=== PATIENT | male | born 1940 | race Hispanic/Latino ===

== ENCOUNTER 2018-03-21 15:41 | Inpatient (IN) | payer OTHER ==
[2018-03-21] MEDS ORDERED: Sodium Chloride 0.9% 500 ML IV ONE (16:23)
--- NOTE | 2018-03-21 16:24 | ED PDOC ---
HPI: Altered Mental Status <Carlee Husain Y - Last Filed: 03/21/18 19:33> Chief Complaint (Provider): SYNCOPE History Per: Patient (77 Y/O MALE HERE WITH EPISODE OF SYNCOPE TODAY AND MULTIPLE FALLS X 4 DAYS. DENIES ANY CHEST PAIN/ABD PAIN/VOMITING/DIARRHEA. DENIES ANY UNILATERAL WEAKNESS. ) <Maximiliano Vazquez - Last Filed: 03/21/18 20:11> Time Seen by Provider: 03/21/18 16:22 Chief Complaint (Nursing): Weakness/Neurological Deficit Past Medical History Vital Signs: Last Vital Signs Temp 98.0 F 03/21/18 15:44 Pulse 90 03/21/18 15:44 Resp 16 03/21/18 15:44 BP 97/47 L 03/21/18 15:44 Pulse Ox 99 03/21/18 19:12 <LishaCarlee Y - Last Filed: 03/21/18 19:33> Reviewed: Historical Data, Nursing Documentation, Vital Signs Vital Signs: Last Vital Signs Temp 98.0 F 03/21/18 15:44 Pulse 90 03/21/18 15:44 Resp 16 03/21/18 15:44 BP 97/47 L 03/21/18 15:44 Pulse Ox 99 03/21/18 15:44 - Medical History PMH: Benign Prostatic Hyperplasia Denies: HTN, Chronic Kidney Disease - Surgical History Surgical History: Appendectomy - Family History Family History: States: Unknown Family Hx <Maximiliano Vazquez - Last Filed: 03/21/18 20:11> - Home Medications Home Medications: Ambulatory Orders Medication Instructions Recorded Tamsulosin [Flomax] 0.4 mg PO QPM 04/28/16 Finasteride [Proscar] 5 mg PO DAILY 03/21/18 Fluticasone Propionate [Flonase 1 spray [facility] DAILY PRN 03/21/18 Allergy Relief] Losartan/Hydrochlorothiazide 1 tab PO DAILY 03/21/18 [Losartan-Hctz 50-12.5 mg Tab] Metoprolol Succinate XL [Toprol XL] 25 mg PO DAILY 03/21/18 Pantoprazole Sodium [Protonix] 40 mg PO DAILY 03/21/18 - Allergies Allergies/Adverse Reactions: Allergies Allergy/AdvReac Type Severity Reaction Status Date / Time No Known Allergies Allergy Verified 05/06/14 08:07 Review of Systems ROS Statement: Except As Marked, All Systems Reviewed And Found Negative <Maximiliano Vazquez B - Last Filed: 03/21/18 20:11> Physical Exam - Reviewed Nursing Documentation Reviewed: Yes Vital Signs Reviewed: Yes - Physical Exam Appears: Positive for: Well, Non-toxic, No Acute Distress Head Exam: Positive for: ATRAUMATIC, NORMAL INSPECTION, NORMOCEPHALIC Skin: Positive for: Normal Color, Warm, DRY Eye Exam: Positive for: EOMI, Normal appearance, PERRL ENT: Positive for: Normal ENT Inspection Neck: Positive for: Normal, Painless ROM Cardiovascular/Chest: Positive for: Regular Rate, Rhythm, Other (BIBASILAR RALES MILD) Respiratory: Positive for: CNT, Normal Breath Sounds Gastrointestinal/Abdominal: Positive for: Normal Exam, Soft Back: Positive for: Normal Inspection Extremity: Positive for: Normal ROM Neurologic/Psych: Positive for: Alert, Oriented <GeorgeMaximiliano B - Last Filed: 03/21/18 20:11> - Laboratory Results Result Diagrams: 03/21/18 18:37 03/21/18 18:37 - Critical Care Total Time (In Min): 20 Documented Critical Care: Time excludes all time spent performint seperately billable procedures <Carlee Husain Y - Last Filed: 03/21/18 19:33> - Laboratory Results Result Diagrams: 03/21/18 18:37 03/21/18 18:37 - ECG O2 Sat by Pulse Oximetry: 99 - Progress ED Course And Treament: EKG: AFIB 88BPM; NO ECTOPY NO ACUTE CHANGES CXR: NAD HEAD CT: IMPRESSION: 1. Involutional changes. Periventricular hypoattenuation suggestive of chronic ischemic changes. 2. Mild maxillary sinus mucosal thickening. Thank you for allowing us to participate in the care of your patient. Dictated and Authenticated by: Caroline Johnson MD HGB NOTED 5 2 UNITS PACKED RBC ORDERED CONSENT OBTAINED AND IN CHART. POTASSIUM NOTED ELEVATED 6.2 1 AMP D50 IV/ 10 UNITS REG INSULIN/ 1 AMP SODIUM BICARB GIVEN D/W DR. GRACIA. REQUESTS DR. THOMPSON FOR RENAL CONSULT. D/W DR. STANTON D/W DR. THOMPSON. REQUESTS POTASSIUM REPEATED 6 HOURS POST TREATMENT AND KAYEXELATE 30GM PO X 1 DOSE WILL REPEAT POTASSIUM IN AM. <Maximiliano Vazquez B - Last Filed: 03/21/18 20:11> Medical Decision Making Medical Decision Making: Patient seen along with PA. Patient presenting with syncopal episode and new onset of symptoms, a-fib , elevated potassium and severe anemia. Patient will need cardiology consult as well as transfusion of blood. He will first need CT head to r/o internal bleed. Right EJ placed for access by me. Patient signed out at 7pm to Dr. Jensen for further workup and admission to ICU. On exam, patient with patent airway and stable vital at this time. <Carlee Husain Y - Last Filed: 03/21/18 19:33> Disposition <Carlee Husain Y - Last Filed: 03/21/18 19:33> - Patient ED Disposition Is Patient to be Admitted: Yes - Disposition Disposition Time: 20:03 - Pt Status Changed To: Hospital Disposition Of: Inpatient - Admit Certification Admit to Inpatient:: After my assessment, the patient will require hospitalization for at least two midnights. This is because of the severity of symptoms shown, intensity of services needed, and/or the medical risk in this patient being treated as an outpatient. <Maximiliano Vazquez B - Last Filed: 03/21/18 20:11> - Clinical Impression Clinical Impression: Anemia, Renal failure, New onset a-fib, Hyperkalemia - Disposition Condition: FAIR
--- NOTE | 2018-03-21 17:07 | RAD ---
Date of service: 03/21/2018 PROCEDURE: CHEST RADIOGRAPH, 1 VIEW HISTORY: ROUTINE COMPARISON: None available. FINDINGS: LUNGS: Clear. PLEURA: No pneumothorax or pleural fluid seen. CARDIOVASCULAR: Atherosclerotic aortic calcifications. Cardiomediastinal silhouette enlarged. OSSEOUS STRUCTURES: Degenerative changes. VISUALIZED UPPER ABDOMEN: Normal. OTHER FINDINGS: None. IMPRESSION: No active disease.
[2018-03-21 18:44] LABS: BASO % 0.8 % (0.0-2.0); EOS # 0.1 K/uL (0.0-0.7); EOS % 1.2 % (0.0-4.0); LYMPH # 0.9 K/uL (1.0-4.3); LYMPH % 15.3 % (20.0-40.0); MEAN CELL VOLUME 66.8 fl (80.0-94.0); MEAN CORPUSCULAR HEMOGLOBIN 20.1 pg (27.0-31.0); MEAN CORPUSCULAR HGB CONC 30.1 g/dL (33.0-37.0); MEAN PLATELET VOLUME 5.9 fl (7.2-11.7); MONO # 0.7 K/uL (0.0-0.8); MONO % 11.6 % (0.0-10.0); NEUT # 4.4 K/uL (1.8-7.0); NEUT % 71.1 % (50.0-75.0); RBC 2.51 Mil/uL (4.40-5.90); RED CELL DISTRIBUTION WIDTH 17.1 % (11.5-14.5); WHITE BLOOD COUNT 6.1 K/uL (4.8-10.8)
[2018-03-21 18:58] LABS: INR 1.1 (0.9-1.2); PARTIAL THROMBOPLASTIN TIME 18.6 Seconds (25.6-37.1); PROTHROMBIN TIME 12.3 Seconds (9.8-13.1)
[2018-03-21 19:02] LABS: ALB/GLOB RATIO 0.8 (1.0-2.1); ALBUMIN 3.4 g/dL (3.5-5.0); CALCIUM 9.1 mg/dL (8.4-10.2)
[2018-03-21] MEDS ORDERED: Insulin Regular 100 units/ml IV STA (19:08)
[2018-03-21] MEDS ORDERED: Dextrose 50% SYRINGE Inj (50 ml) IVP ONE (19:08)
[2018-03-21 19:09] LABS: TROPONIN I 0.034 ng/mL (0.00-0.120)
[2018-03-21] MEDS ORDERED: Sodium Bicarbonate 7.5% (0.9 MEQ/ML) 50ML INJ IV ONE (19:12)
[2018-03-21] MEDS ORDERED: Dextrose 50% SYRINGE Inj (50 ml) ONE (19:33)
[2018-03-21] MEDS ORDERED: Insulin Regular 100 units/ml ONE (19:34)
[2018-03-21] MEDS ORDERED: Sod Polystyrene Sulf 15 gm/60 ml Susp PO ONE (20:08)
[2018-03-21] MEDS ORDERED: Sodium Chloride 0.9% 1,000 ML IV SCH ×3 (20:15→22:45)
[2018-03-21] MEDS ORDERED: Sod Polystyrene Sulf 15 gm/60 ml Susp ONE (21:00)
--- NOTE | 2018-03-21 21:03 | CP.PCM.CON ---
History of Present Illness - History of Present Illness History of Present Illness: CC: Falls, weakness (patient is rather poor historian) HPI: This is a 77 y/o male with MHx of BPH, A fib, and HTN as far as can be ascertained. He comes in with a syncopal episode, multiple falls, and generalized weakness for the past 3-4 days. Denies f/c/n/v/d. 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; unclear whether he smokes or drinks EtOH Surrogate Dec Mkr: unknown Past Patient History - Infectious Disease Hx of Infectious Diseases: None - Past Medical History & Family History Past Medical History?: Yes - Past Social History Smoking Status: Former Smoker - CARDIAC Hx Hypertension: No - PULMONARY Hx Respiratory Disorders: No - NEUROLOGICAL Hx Neurological Disorder: No - HEENT Hx HEENT Problems: Yes Hx Cataracts: Yes - RENAL Hx Chronic Kidney Disease: No - ENDOCRINE/METABOLIC Hx Endocrine Disorders: No - HEMATOLOGICAL/ONCOLOGICAL Hx Blood Disorders: Yes Hx Cancer: Yes (prostate) - INTEGUMENTARY Hx Dermatological Problems: No - MUSCULOSKELETAL/RHEUMATOLOGICAL Hx Musculoskeletal Disorders: Yes Hx Falls: No Hx Osteoarthritis: Yes - GASTROINTESTINAL Hx Gastrointestinal Disorders: No - GENITOURINARY/GYNECOLOGICAL Hx Genitourinary Disorders: Yes (RETENTION BUTLER TO SGD) Hx Hematuria: Yes Hx Prostate Cancer: Yes Hx Prostate Problems: Yes - PSYCHIATRIC Hx Psychophysiologic Disorder: No Hx Substance Use: No - SURGICAL HISTORY Hx Appendectomy: Yes - ANESTHESIA Hx Anesthesia: Yes Hx Anesthesia Reactions: No Hx Malignant Hyperthermia: No Meds Allergies/Adverse Reactions: Allergies Allergy/AdvReac Type Severity Reaction Status Date / Time No Known Allergies Allergy Verified 01/02/14 08:07 - Medications Medications: Current Medications Acetaminophen (Tylenol 325mg Tab) 650 mg PO Q6H PRN PRN Reason: Fever >100.4 F Finasteride (Proscar) 5 mg PO DAILY [facility] Fluticasone Propionate (Flonase) 1 spr VALERIA DAILY PRN PRN Reason: Nasal congestion Sodium Chloride (Sodium Chloride 0.9%) 1,000 mls @ 100 mls/hr IV .Q10H [facility] Stop: 03/22/18 06:14 Metoprolol Succinate (Toprol Xl) 25 mg PO DAILY [facility] Ondansetron HCl (Zofran Inj) 4 mg IVP Q6H PRN PRN Reason: Nausea/Vomiting Pantoprazole Sodium (Protonix Ec Tab) 40 mg PO DAILY [facility] Tamsulosin HCl (Flomax) 0.4 mg PO QPM [facility] Physical Exam - Constitutional Appears: No Acute Distress, Chronically Ill - Head Exam Head Exam: ATRAUMATIC, NORMOCEPHALIC - Eye Exam Eye Exam: EOMI, PERRL - ENT Exam ENT Exam: Mucous Membranes Dry - Neck Exam Neck exam: Positive for: Full Rom - Respiratory Exam Respiratory Exam: Clear to Auscultation Bilateral, NORMAL BREATHING PATTERN - Cardiovascular Exam Cardiovascular Exam: REGULAR RHYTHM, +S1, +S2 - GI/Abdominal Exam GI & Abdominal Exam: Normal Bowel Sounds, Soft - Extremities Exam Extremities exam: Positive for: full ROM, normal inspection - Neurological Exam Neurological exam: Alert, Oriented x3 Additional comments: Limited participation in exam - Psychiatric Exam Psychiatric exam: Normal Affect, Normal Mood - Skin Skin Exam: Dry, Warm Results - Vital Signs Recent Vital Signs: Last Vital Signs Temp 98.0 F 03/21/18 15:44 Pulse 92 H 03/21/18 19:47 Resp 18 03/21/18 19:47 BP 137/87 03/21/18 19:47 Pulse Ox 99 03/21/18 20:11 - Labs Result Diagrams: 03/21/18 18:37 03/21/18 18:37 Labs: Laboratory Results - last 24 hr 03/21/18 03/21/18 03/21/18 16:25 18:37 18:37 WBC 6.1 RBC 2.51 L Hgb 5.0 L* Hct 16.7 L MCV 66.8 L MCH 20.1 L MCHC 30.1 L RDW 17.1 H Plt Count 727 H MPV 5.9 L Neut % (Auto) 71.1 Lymph % (Auto) 15.3 L [place] % (Auto) 11.6 H Eos % (Auto) 1.2 Baso % (Auto) 0.8 Neut # (Auto) 4.4 Lymph # (Auto) 0.9 L [place] # (Auto) 0.7 Eos # (Auto) 0.1 Baso # (Auto) 0.0 PT INR APTT Sodium 132 Potassium 6.4 H* Chloride 100 Carbon Dioxide 16 L Anion Gap 22 H BUN 95 H Creatinine 6.4 H Est GFR ( Amer) 10 Est GFR (Non-Af Amer) 8 POC Glucose (mg/dL) 147 H Random Glucose 104 Calcium 9.1 Magnesium 2.7 H Total Bilirubin 0.4 AST 23 ALT 15 L Alkaline Phosphatase 70 Troponin I 0.0340 NT-Pro-B Natriuret Pep 9350 H Total Protein 7.8 Albumin 3.4 L Globulin 4.4 H Albumin/Globulin Ratio 0.8 L 03/21/18 18:37 WBC RBC Hgb Hct MCV MCH MCHC RDW Plt Count MPV Neut % (Auto) Lymph % (Auto) [place] % (Auto) Eos % (Auto) Baso % (Auto) Neut # (Auto) Lymph # (Auto) [place] # (Auto) Eos # (Auto) Baso # (Auto) PT 12.3 INR 1.1 APTT 18.6 L Sodium Potassium Chloride Carbon Dioxide Anion Gap BUN Creatinine Est GFR ( Amer) Est GFR (Non-Af Amer) POC Glucose (mg/dL) Random Glucose Calcium Magnesium Total Bilirubin AST ALT Alkaline Phosphatase Troponin I NT-Pro-B Natriuret Pep Total Protein Albumin Globulin Albumin/Globulin Ratio - EKG Data EKG Interpreted by: Myself EKG shows normal: Sinus rhythm Rate: Normal - EKG Data EKG comments: No peaked T waves - Imaging and Cardiology CT scan - head Status: Image reviewed by me, Report reviewed by me Additional comment: No acute findings Chest x-ray Status: Image reviewed by me, Report reviewed by me Additional comment: No cardiac or pulm disease Assessment & Plan (1) Anemia Assessment and Plan: 77 y/o male with severe ARF with hyperkalemia and severe anemia who presents with weakness and falls. -Admit to ICU given multiple severe problems -Pending 2 U PRBC -Cont IVF (NS) x 1 L -Pending Kayexelate -Repeat BMP, CBC in AM -UA, U Lytes, and U creatinine -Renal U/S -Echo TTE in AM given elevated BNP and unclear etiology/duration of A fib -Hold all diuretics -Dose medications renally -SCDs only for DVT PPx Status: Acute (2) Renal failure Status: Acute (3) Hyperkalemia Status: Acute (4) A-fib Status: Acute (5) DVT prophylaxis Status: Acute
[2018-03-22 01:01] LABS: SQUAMOUS EPITHIAL < 1 /hpf (0-5); URINE BACTERIA MOD (<OCC); URINE BILIRUBIN NEGATIVE (NEGATIVE); URINE BLOOD LARGE (NEGATIVE); URINE CLARITY CLOUDY (Clear); URINE COLOR YELLOW (YELLOW); URINE GLUCOSE (UA) NEG (Normal); URINE LEUKOCYTE ESTERASE LARGE Leu/uL (Negative); URINE PROTEIN 100 mg/dL (NEGATIVE); URINE UROBILINOGEN 0.2-1.0 mg/dL (0.2-1.0)
[2018-03-22 08:48] LABS: MEAN CELL VOLUME 70.7 fl (80.0-94.0); MEAN CORPUSCULAR HEMOGLOBIN 23.6 pg (27.0-31.0); MEAN CORPUSCULAR HGB CONC 33.4 g/dL (33.0-37.0); RBC 2.96 Mil/uL (4.40-5.90); RED CELL DISTRIBUTION WIDTH 22.3 % (11.5-14.5)
[2018-03-22 09:02] LABS: CALCIUM 8.2 mg/dL (8.4-10.2)
--- NOTE | 2018-03-22 09:34 | CT ---
Date of service: 03/21/2018 PROCEDURE: CT HEAD WITHOUT CONTRAST. HISTORY: SYNCOPE/FALLS COMPARISON: None available. TECHNIQUE: Axial computed tomography images were obtained through the head/brain without intravenous contrast. Coronal and sagittal reconstructed images. Radiation dose: Total exam DLP = 770.12 mGy-cm. This CT exam was performed using one or more of the following dose reduction techniques: Automated exposure control, adjustment of the mA and/or kV according to patient size, and/or use of iterative reconstruction technique. FINDINGS: HEMORRHAGE: No intracranial hemorrhage. BRAIN: No mass effect or edema. Cortical atrophy, periventricular small vessel disease. VENTRICLES: Unremarkable. No hydrocephalus. CALVARIUM: Unremarkable. PARANASAL SINUSES: Evidence of chronic maxillary sinusitis. No acute findings. MASTOID AIR CELLS: Unremarkable as visualized. No inflammatory changes. OTHER FINDINGS: None. IMPRESSION: No acute intracranial abnormalities. No significant findings to account for the clinical presentation. Concordant results (preliminary interpretation) provided by [employer]. Procedure Completed: 17:47 Preliminary ([facility]) Report: Dictated and Authenticated: 19:09 Final Interpretation: 09:32 March 22, 2018.
[2018-03-22] MEDS: Pantoprazole 40 mg EC Tab PO SCH (09:56)
[2018-03-22] MEDS: Metoprolol Succinate 25 mg XL Tab PO SCH (09:56)
--- NOTE | 2018-03-22 11:25 | US ---
Date of service: 03/22/2018 PROCEDURE: Ultrasound of the Kidneys HISTORY: renal failure COMPARISON: None available. TECHNIQUE: Sonogram of the kidneys. FINDINGS: RIGHT KIDNEY: Measures: 4.7 x 5.5 x 10.5 cm. Normal in size, contour and echogenicity. No stone, solid mass lesion or hydronephrosis visualized. LEFT KIDNEY: Measures: 6 x 6.2 x 11 cm. Normal in size, contour and echogenicity. No stone, solid mass lesion or hydronephrosis visualized. OTHER FINDINGS: None. IMPRESSION: Unremarkable renal sonogram.
--- NOTE | 2018-03-22 11:40 | CP.PCM.CON ---
History of Present Illness - History of Present Illness History of Present Illness: patient is a 77 years of age male presented to the emergency room with altered mental status and he was found to have hyperkalemic abnormal kidney function. I was called to see the patient for further evaluation. The history from the patient very limited I could not get any information from the patient history is not aware about kidney problem at least he has history of diabetes mellitus and the record indicates a day has history of prostatic CA review of that 14 system unremarkable so far except what I mentioned until you get further information Review of Systems - Constitutional Constitutional: Anorexia. absent: Chills - EENT Nose/Mouth/Throat: absent: Nasal Congestion - Cardiovascular Cardiovascular: absent: Chest Pain, Dyspnea, Edema - Respiratory Respiratory: absent: Cough, Hemoptysis - Gastrointestinal Gastrointestinal: absent: Abdominal Pain, Coffee Ground Emesis - Genitourinary Genitourinary: Nocturia - Musculoskeletal Musculoskeletal: absent: Abnormal Gait - Neurological Neurological: Confusion, Lack of Coordination - Endocrine Endocrine: Fatigue - Hematologic/Lymphatic Hematologic: absent: Easy Bleeding Past Patient History - Infectious Disease Hx of Infectious Diseases: None - Past Medical History & Family History Past Medical History?: Yes - Past Social History Smoking Status: Former Smoker - CARDIAC Hx Hypertension: No - PULMONARY Hx Respiratory Disorders: No - NEUROLOGICAL Hx Neurological Disorder: No - HEENT Hx HEENT Problems: Yes - RENAL Hx Chronic Kidney Disease: No - ENDOCRINE/METABOLIC Hx Endocrine Disorders: No - HEMATOLOGICAL/ONCOLOGICAL Hx Blood Disorders: Yes - INTEGUMENTARY Hx Dermatological Problems: No - MUSCULOSKELETAL/RHEUMATOLOGICAL Hx Musculoskeletal Disorders: Yes - GASTROINTESTINAL Hx Gastrointestinal Disorders: No - GENITOURINARY/GYNECOLOGICAL Hx Genitourinary Disorders: Yes (RETENTION BUTLER TO SGD) - PSYCHIATRIC Hx Psychophysiologic Disorder: No - SURGICAL HISTORY Hx Appendectomy: Yes - ANESTHESIA Hx Anesthesia: Yes Hx Anesthesia Reactions: No Hx Malignant Hyperthermia: No Meds Allergies/Adverse Reactions: Allergies Allergy/AdvReac Type Severity Reaction Status Date / Time No Known Allergies Allergy Verified 01/02/14 08:07 - Medications Medications: Current Medications Acetaminophen (Tylenol 325mg Tab) 650 mg PO Q6H PRN PRN Reason: Fever >100.4 F Finasteride (Proscar) 5 mg PO DAILY [facility] Last Admin: 03/22/18 09:55 Dose: 5 mg Fluticasone Propionate (Flonase) 1 spr [facility]ERIA DAILY PRN PRN Reason: Nasal congestion Sodium Chloride (Sodium Chloride 0.9%) 1,000 mls @ 150 mls/hr IV .Q6H[facility]M [facility] Stop: 03/22/18 12:04 Metoprolol Succinate (Toprol Xl) 25 mg PO DAILY [facility] Last Admin: 03/22/18 09:56 Dose: 25 mg Ondansetron HCl (Zofran Inj) 4 mg IVP Q6H PRN PRN Reason: Nausea/Vomiting Pantoprazole Sodium (Protonix Ec Tab) 40 mg PO DAILY [facility] Last Admin: 03/22/18 09:56 Dose: 40 mg Tamsulosin HCl (Flomax) 0.4 mg PO QPM [facility] Physical Exam - Constitutional Appears: No Acute Distress - ENT Exam ENT Exam: Mucous Membranes Dry - Neck Exam Neck exam: Negative for: Lymphadenopathy - Respiratory Exam Respiratory Exam: NORMAL BREATHING PATTERN. absent: Chest Wall Tenderness - Cardiovascular Exam Cardiovascular Exam: absent: Gallop, JVD, Rubs - GI/Abdominal Exam GI & Abdominal Exam: Normal Bowel Sounds. absent: Guarding - Extremities Exam Extremities exam: Negative for: calf tenderness - Back Exam Back exam: absent: CVA tenderness (L), CVA tenderness (R) - Neurological Exam Neurological exam: Alert - Psychiatric Exam Psychiatric exam: Flat Affect Results - Vital Signs Recent Vital Signs: Last Vital Signs Temp 97.8 F 03/22/18 10:50 Pulse 94 H 03/22/18 10:50 Resp 20 03/22/18 10:50 BP 92/47 L 03/22/18 10:50 Pulse Ox 98 03/22/18 10:50 - Labs Result Diagrams: 03/22/18 08:27 03/22/18 08:27 Labs: Laboratory Results - last 24 hr 03/21/18 03/21/18 03/21/18 16:25 18:37 18:37 WBC 6.1 RBC 2.51 L Hgb 5.0 L* Hct 16.7 L MCV 66.8 L MCH 20.1 L MCHC 30.1 L RDW 17.1 H Plt Count 727 H MPV 5.9 L Neut % (Auto) 71.1 Lymph % (Auto) 15.3 L [place] % (Auto) 11.6 H Eos % (Auto) 1.2 Baso % (Auto) 0.8 Neut # (Auto) 4.4 Lymph # (Auto) 0.9 L [place] # (Auto) 0.7 Eos # (Auto) 0.1 Baso # (Auto) 0.0 PT INR APTT Sodium 132 Potassium 6.4 H* Chloride 100 Carbon Dioxide 16 L Anion Gap 22 H BUN 95 H Creatinine 6.4 H Est GFR ( Amer) 10 Est GFR (Non-Af Amer) 8 POC Glucose (mg/dL) 147 H Random Glucose 104 Calcium 9.1 Phosphorus Magnesium 2.7 H Total Bilirubin 0.4 AST 23 ALT 15 L Alkaline Phosphatase 70 Total Creatine Kinase Troponin I 0.0340 NT-Pro-B Natriuret Pep 9350 H Total Protein 7.8 Albumin 3.4 L Globulin 4.4 H Albumin/Globulin Ratio 0.8 L Urine Color Urine Clarity Urine pH Ur Specific [place] Urine Protein Urine Glucose (UA) Urine Ketones Urine Blood Urine Nitrate Urine Bilirubin Urine Urobilinogen Ur Leukocyte Esterase Urine RBC (Auto) Urine Microscopic WBC Ur Squamous Epith Cells Urine Bacteria Blood Type Antibody Screen Crossmatch [facility] History Checked 03/21/18 03/21/18 03/22/18 18:37 20:15 00:30 WBC RBC Hgb Hct MCV MCH MCHC RDW Plt Count MPV Neut % (Auto) Lymph % (Auto) [place] % (Auto) Eos % (Auto) Baso % (Auto) Neut # (Auto) Lymph # (Auto) [place] # (Auto) Eos # (Auto) Baso # (Auto) PT 12.3 INR 1.1 APTT 18.6 L Sodium Potassium Chloride Carbon Dioxide Anion Gap BUN Creatinine Est GFR ( Amer) Est GFR (Non-Af Amer) POC Glucose (mg/dL) Random Glucose Calcium Phosphorus Magnesium Total Bilirubin AST ALT Alkaline Phosphatase Total Creatine Kinase Troponin I NT-Pro-B Natriuret Pep Total Protein Albumin Globulin Albumin/Globulin Ratio Urine Color Yellow Urine Clarity Cloudy Urine pH 5.0 Ur Specific [place] 1.013 Urine Protein 100 Urine Glucose (UA) Neg Urine Ketones Negative Urine Blood Large Urine Nitrate Negative Urine Bilirubin Negative Urine Urobilinogen 0.2-1.0 Ur Leukocyte Esterase Large Urine RBC (Auto) 570 H Urine Microscopic WBC 178 H Ur Squamous Epith Cells < 1 Urine Bacteria Mod H Blood Type O POSITIVE Antibody Screen Negative Crossmatch See Detail BBK History Checked Patient has bt 03/22/18 03/22/18 08:27 08:27 WBC 6.0 RBC 2.96 L Hgb 7.0 L D Hct 21.0 L MCV 70.7 L D MCH 23.6 L MCHC 33.4 RDW 22.3 H Plt Count 674 H MPV Neut % (Auto) Lymph % (Auto) [place] % (Auto) Eos % (Auto) Baso % (Auto) Neut # (Auto) Lymph # (Auto) [place] # (Auto) Eos # (Auto) Baso # (Auto) PT INR APTT Sodium 135 Potassium 5.0 Chloride 104 Carbon Dioxide 18 L Anion Gap 18 BUN 82 H Creatinine 5.3 H Est GFR ( Amer) 13 Est GFR (Non-Af Amer) 11 POC Glucose (mg/dL) Random Glucose 90 Calcium 8.2 L Phosphorus 7.2 H Magnesium Total Bilirubin AST ALT Alkaline Phosphatase Total Creatine Kinase 101 Troponin I NT-Pro-B Natriuret Pep Total Protein Albumin Globulin Albumin/Globulin Ratio Urine Color Urine Clarity Urine pH Ur Specific [place] Urine Protein Urine Glucose (UA) Urine Ketones Urine Blood Urine Nitrate Urine Bilirubin Urine Urobilinogen Ur Leukocyte Esterase Urine RBC (Auto) Urine Microscopic WBC Ur Squamous Epith Cells Urine Bacteria Blood Type Antibody Screen Crossmatch BBK History Checked Assessment & Plan (1) Hyperkalemia Assessment and Plan: acute kidney injury etiology not clear I cannot get history from the patient what medication he has been taken History of diabetes mellitus and hypertension History of CVA of the prostate Kidney function appeared to be improving patient appears to be still dehydrated continue IV fluid Serum phosphorus and PTH and spot urine for sodium osmolality and creatinine and protein Status: Acute
--- NOTE | 2018-03-22 11:44 | CARD ---
APPROVED REPORT Date of service: 03/22/2018 EXAM: Two-dimensional and M-mode echocardiogram with Doppler and color Doppler. Other Information Quality : GoodRhythm : NSR INDICATION ELEVATED BNP 2D DIMENSIONS IVSd1.18 (0.7-1.1cm)LVDd4.33 (3.9-5.9cm) LVOT Diameter2.29 (1.8-2.4cm)PWd1.05 (0.7-1.1cm) IVSs1.35 (0.8-1.2cm)LVDs2.72 (2.5-4.0cm) FS (%) 37.2 %PWs1.44 (0.8-1.2cm) M-Mode DIMENSIONS Left Atrium (MM)4.65 (2.5-4.0cm)IVSd1.03 (0.7-1.1cm) Aortic Root4.21 (2.2-3.7cm)LVDd4.88 (4.0-5.6cm) Aortic Cusp Exc.2.00 (1.5-2.0cm)PWd1.21 (0.7-1.1cm) IVSs1.32 cmFS (%) 26 % LVDs3.62 (2.0-3.8cm)PWs1.44 cm Aortic Valve AoV Peak Oaobewsi837.5cm/sAoV VTI16.3cmAO Peak GR.4mmHg LVOT Peak Lklachxn78.8cm/sLVOT VTI12.47cmAO Mean GR.2mmHg MELISSA (VMAX)1.49tj6BMB (VTI)1.61cm2 Mitral Valve MV E Vycrgdny67.4cm/sMV DECEL UMOC321kaLY A Yzbimloa44.8cm/s MV FRW90nwN/A ratio1.5MVA (PHT)4.95cm2 TDI Lateral E' Peak V19.26cm/sMedial E' Peak V4.73cm/sE/Lateral E'4.0 E/Medial E'16.4 Pulmonary Valve PV Peak Ylfzxldi25.5cm/s Tricuspid Valve TR Peak Aithrtij123zs/sRAP CICYZGWQ09jbYzMT Peak Gr.23mmHg VLRX67iqSl LEFT VENTRICLE The left ventricle is normal size. There is mild to moderate concentric left ventricular hypertrophy. The left ventricular function is normal. The left ventricular ejection fraction is within the normal range. LVEF 60% Regional wall motion abnormalities noted. Mild septal wall hypokinesia is noticed The left ventricular diastolic function is normal. No left ventricle thrombus noted on this study. There is no ventricular septal defect visualized. There is no left ventricular aneurysm. There is no mass noted in the left ventricle. RIGHT VENTRICLE The right ventricle is normal size. There is normal right ventricular wall thickness. The right ventricular systolic function is normal. ATRIA The left atrium size is normal. The right atrium size is normal. The interatrial septum is intact with no evidence for an atrial septal defect. AORTIC VALVE The aortic valve is thickened but opens well. No aortic regurgitation is present. There is no aortic valvular stenosis. There is no aortic valvular vegetation. MITRAL VALVE The mitral valve is normal in structure. There is no evidence of mitral valve prolapse. There is no mitral valve stenosis. Mitral regurgitation is mild. TRICUSPID VALVE The tricuspid valve is normal in structure. There is trace to mild tricuspid regurgitation. There is no tricuspid valve prolapse or vegetation. There is no tricuspid valve stenosis. PULMONIC VALVE The pulmonary valve is normal in structure. There is mild pulmonic valvular regurgitation. There is no pulmonic valvular stenosis. GREAT VESSELS The aortic root is mildly to moderately enlarged. The IVC is normal in size and collapses >50% with inspiration. PERICARDIAL EFFUSION The pericardium appears normal. <Conclusion> The left ventricle is normal size. There is mild to moderate concentric left ventricular hypertrophy. The left ventricular function is normal. The left ventricular ejection fraction is within the normal range. LVEF 60% Regional wall motion abnormalities noted. Mild septal wall hypokinesia is noticed The aortic valve is thickened but opens well. Mitral regurgitation is mild. There is trace to mild tricuspid regurgitation. There is mild pulmonic valvular regurgitation. The aortic root is mildly to moderately enlarged.
--- NOTE | 2018-03-22 12:12 | CP.PCM.CON ---
History of Present Illness - History of Present Illness History of Present Illness: 77 year old male with a history of HTN, afib, BPH, admitted with syncopal episode and weakness, in renal failure, and severe anemia. The patient is not a good historian but notes to feeling weak and not eating well for several days. He denies abnormal bleeding and bruising. He has been getting light headed when he stands quickly. He is currently s/p PRBC transfusion and reports to feeling better. Past medical history: HTN, afib, BPH Past surgical history: Appendectomy Family history: Denies hematologic and oncologic problems Social history: Denies tobacco, alcohol, and illicit drug use. Allergies: NKA Review of systems: All remaining review of systems including HEENT, cardiovascular, respiratory, gastrointestinal, genitourinary, musculoskeletal, dermatologic, neurologic, and psychiatric are negative unless mentioned in the HPI. Past Patient History - Infectious Disease Hx of Infectious Diseases: None - Past Medical History & Family History Past Medical History?: Yes - Past Social History Smoking Status: Former Smoker - CARDIAC Hx Hypertension: No - PULMONARY Hx Respiratory Disorders: No - NEUROLOGICAL Hx Neurological Disorder: No - HEENT Hx HEENT Problems: Yes - RENAL Hx Chronic Kidney Disease: No - ENDOCRINE/METABOLIC Hx Endocrine Disorders: No - HEMATOLOGICAL/ONCOLOGICAL Hx Blood Disorders: Yes - INTEGUMENTARY Hx Dermatological Problems: No - MUSCULOSKELETAL/RHEUMATOLOGICAL Hx Musculoskeletal Disorders: Yes - GASTROINTESTINAL Hx Gastrointestinal Disorders: No - GENITOURINARY/GYNECOLOGICAL Hx Genitourinary Disorders: Yes (RETENTION BUTLER TO SGD) - PSYCHIATRIC Hx Psychophysiologic Disorder: No - SURGICAL HISTORY Hx Appendectomy: Yes - ANESTHESIA Hx Anesthesia: Yes Hx Anesthesia Reactions: No Hx Malignant Hyperthermia: No Meds Allergies/Adverse Reactions: Allergies Allergy/AdvReac Type Severity Reaction Status Date / Time No Known Allergies Allergy Verified 01/02/14 08:07 - Medications Medications: Current Medications Acetaminophen (Tylenol 325mg Tab) 650 mg PO Q6H PRN PRN Reason: Fever >100.4 F Finasteride (Proscar) 5 mg PO DAILY [facility] Last Admin: 03/22/18 09:55 Dose: 5 mg Fluticasone Propionate (Flonase) 1 spr [place]ERIA DAILY PRN PRN Reason: Nasal congestion Metoprolol Succinate (Toprol Xl) 25 mg PO DAILY [facility] Last Admin: 03/22/18 09:56 Dose: 25 mg Ondansetron HCl (Zofran Inj) 4 mg IVP Q6H PRN PRN Reason: Nausea/Vomiting Pantoprazole Sodium (Protonix Ec Tab) 40 mg PO DAILY [facility] Last Admin: 03/22/18 09:56 Dose: 40 mg Tamsulosin HCl (Flomax) 0.4 mg PO QPM [facility] Physical Exam - Head Exam Head Exam: ATRAUMATIC - Eye Exam Eye Exam: Normal appearance - ENT Exam ENT Exam: Mucous Membranes Dry - Respiratory Exam Respiratory Exam: NORMAL BREATHING PATTERN - Cardiovascular Exam Cardiovascular Exam: +S1, +S2 - GI/Abdominal Exam GI & Abdominal Exam: Normal Bowel Sounds - Extremities Exam Extremities exam: Positive for: normal inspection - Psychiatric Exam Psychiatric exam: Flat Affect, Normal Mood - Skin Skin Exam: Warm Results - Vital Signs Recent Vital Signs: Last Vital Signs Temp 97.8 F 03/22/18 10:50 Pulse 94 H 03/22/18 10:50 Resp 20 03/22/18 10:50 BP 92/47 L 03/22/18 10:50 Pulse Ox 98 03/22/18 10:50 - Labs Result Diagrams: 03/22/18 08:27 03/22/18 08:27 Labs: Laboratory Results - last 24 hr 03/21/18 03/21/18 03/21/18 16:25 18:37 18:37 WBC 6.1 RBC 2.51 L Hgb 5.0 L* Hct 16.7 L MCV 66.8 L MCH 20.1 L MCHC 30.1 L RDW 17.1 H Plt Count 727 H MPV 5.9 L Neut % (Auto) 71.1 Lymph % (Auto) 15.3 L [place] % (Auto) 11.6 H Eos % (Auto) 1.2 Baso % (Auto) 0.8 Neut # (Auto) 4.4 Lymph # (Auto) 0.9 L [place] # (Auto) 0.7 Eos # (Auto) 0.1 Baso # (Auto) 0.0 PT INR APTT Sodium 132 Potassium 6.4 H* Chloride 100 Carbon Dioxide 16 L Anion Gap 22 H BUN 95 H Creatinine 6.4 H Est GFR ( Amer) 10 Est GFR (Non-Af Amer) 8 POC Glucose (mg/dL) 147 H Random Glucose 104 Calcium 9.1 Phosphorus Magnesium 2.7 H Total Bilirubin 0.4 AST 23 ALT 15 L Alkaline Phosphatase 70 Total Creatine Kinase Troponin I 0.0340 NT-Pro-B Natriuret Pep 9350 H Total Protein 7.8 Albumin 3.4 L Globulin 4.4 H Albumin/Globulin Ratio 0.8 L Urine Color Urine Clarity Urine pH Ur Specific [place] Urine Protein Urine Glucose (UA) Urine Ketones Urine Blood Urine Nitrate Urine Bilirubin Urine Urobilinogen Ur Leukocyte Esterase Urine RBC (Auto) Urine Microscopic WBC Ur Squamous Epith Cells Urine Bacteria Blood Type Antibody Screen Crossmatch BBK History Checked 03/21/18 03/21/18 03/22/18 18:37 20:15 00:30 WBC RBC Hgb Hct MCV MCH MCHC RDW Plt Count MPV Neut % (Auto) Lymph % (Auto) [place] % (Auto) Eos % (Auto) Baso % (Auto) Neut # (Auto) Lymph # (Auto) [place] # (Auto) Eos # (Auto) Baso # (Auto) PT 12.3 INR 1.1 APTT 18.6 L Sodium Potassium Chloride Carbon Dioxide Anion Gap BUN Creatinine Est GFR ( Amer) Est GFR (Non-Af Amer) POC Glucose (mg/dL) Random Glucose Calcium Phosphorus Magnesium Total Bilirubin AST ALT Alkaline Phosphatase Total Creatine Kinase Troponin I NT-Pro-B Natriuret Pep Total Protein Albumin Globulin Albumin/Globulin Ratio Urine Color Yellow Urine Clarity Cloudy Urine pH 5.0 Ur Specific [place] 1.013 Urine Protein 100 Urine Glucose (UA) Neg Urine Ketones Negative Urine Blood Large Urine Nitrate Negative Urine Bilirubin Negative Urine Urobilinogen 0.2-1.0 Ur Leukocyte Esterase Large Urine RBC (Auto) 570 H Urine Microscopic WBC 178 H Ur Squamous Epith Cells < 1 Urine Bacteria Mod H Blood Type O POSITIVE Antibody Screen Negative Crossmatch See Detail BBK History Checked Patient has bt 03/22/18 03/22/18 08:27 08:27 WBC 6.0 RBC 2.96 L Hgb 7.0 L D Hct 21.0 L MCV 70.7 L D MCH 23.6 L MCHC 33.4 RDW 22.3 H Plt Count 674 H MPV Neut % (Auto) Lymph % (Auto) [place] % (Auto) Eos % (Auto) Baso % (Auto) Neut # (Auto) Lymph # (Auto) [place] # (Auto) Eos # (Auto) Baso # (Auto) PT INR APTT Sodium 135 Potassium 5.0 Chloride 104 Carbon Dioxide 18 L Anion Gap 18 BUN 82 H Creatinine 5.3 H Est GFR ( Amer) 13 Est GFR (Non-Af Amer) 11 POC Glucose (mg/dL) Random Glucose 90 Calcium 8.2 L Phosphorus 7.2 H Magnesium Total Bilirubin AST ALT Alkaline Phosphatase Total Creatine Kinase 101 Troponin I NT-Pro-B Natriuret Pep Total Protein Albumin Globulin Albumin/Globulin Ratio Urine Color Urine Clarity Urine pH Ur Specific [place] Urine Protein Urine Glucose (UA) Urine Ketones Urine Blood Urine Nitrate Urine Bilirubin Urine Urobilinogen Ur Leukocyte Esterase Urine RBC (Auto) Urine Microscopic WBC Ur Squamous Epith Cells Urine Bacteria Blood Type Antibody Screen Crossmatch BBK History Checked Assessment & Plan (1) Anemia Assessment and Plan: rule out iron deficiency anemia will check retic count, b12, folate, ferritin, FOBT to further characterize agree with transfusion support will add IV iron if iron stores low ? anemia of CKD Status: Acute (2) Thrombocytosis Assessment and Plan: likely reactive to iron deficiency Thank you for this interesting consult. Status: Acute
--- NOTE | 2018-03-22 12:36 | CARD ---
APPROVED REPORT Date of service: 03/21/2018 EKG Measurement Heart [id number] <Conclusion> Atrial fibrillation Abnormal ECG
[2018-03-22] MEDS ORDERED: Lidocaine Hydrochloride 5 ML INJ ONE (13:32)
--- NOTE | 2018-03-22 13:43 | PCM.SURG1 ---
Surgeon's Initial Post Op Note - Surgeon's Notes Surgeon: Prieto Casillas MD Sales And Production Manager: NONE Type of Anesthesia: Local Pre-Operative Diagnosis: Poor venous access Operative Findings: US showed a patent right basilic vein Post-Operative Diagnosis: Poor venous access Operation Performed: Double lumen picc right arm, 35 CM. Tip is in the SVC. Specimen/Specimens Removed: NONE Estimated Blood Loss: EBL {In ML}: 2 Blood Products Given: N/A Drains Used: No Drains Post-Op Condition: Fair Date of Surgery/Procedure: 03/22/18 Time of Surgery/Procedure: 13:40
[2018-03-22 15:58] LABS: OSMOLALITY,URINE 368 mosm/kg (300-1000)
[2018-03-22] MEDS: Sodium Chloride 0.45% 1,000 ML IV SCH (16:11)
--- NOTE | 2018-03-22 16:30 | CP.PCM.CON ---
History of Present Illness - History of Present Illness History of Present Illness: 77 Y/O MALE ADMITTED WITH ARF. PT IS NOT RESPONDING TO QUESTIONS "FEELS TIRED" . HISTORY PER CHART. I WAS CONSULTED FOR AFIB ON MONITOR. AFIB IS RATE CONTROLLED. ECHO REVEALS SEVERE RA ENLARGEMENT AND MILD TO MOD LA ENLARGEMENT. THERE IS RV ENLARGEMENT AND ELEVATED PAP. 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 IT IS UNCLEAR IF AFIB IS ACUTE OR CHRONIC. HAS NOT COMPLAINED OF CP OR PALP. Past Patient History - Infectious Disease Hx of Infectious Diseases: None - Past Medical History & Family History Past Medical History?: Yes - Past Social History Smoking Status: Former Smoker - CARDIAC Hx Hypertension: No - PULMONARY Hx Respiratory Disorders: No - NEUROLOGICAL Hx Neurological Disorder: No - HEENT Hx HEENT Problems: Yes - RENAL Hx Chronic Kidney Disease: No - ENDOCRINE/METABOLIC Hx Endocrine Disorders: No - HEMATOLOGICAL/ONCOLOGICAL Hx Blood Disorders: Yes - INTEGUMENTARY Hx Dermatological Problems: No - MUSCULOSKELETAL/RHEUMATOLOGICAL Hx Musculoskeletal Disorders: Yes - GASTROINTESTINAL Hx Gastrointestinal Disorders: No - GENITOURINARY/GYNECOLOGICAL Hx Genitourinary Disorders: Yes (RETENTION BUTLER TO SGD) - PSYCHIATRIC Hx Psychophysiologic Disorder: No - SURGICAL HISTORY Hx Appendectomy: Yes - ANESTHESIA Hx Anesthesia: Yes Hx Anesthesia Reactions: No Hx Malignant Hyperthermia: No Meds Allergies/Adverse Reactions: Allergies Allergy/AdvReac Type Severity Reaction Status Date / Time No Known Allergies Allergy Verified 01/02/14 08:07 - Medications Medications: Current Medications Acetaminophen (Tylenol 325mg Tab) 650 mg PO Q6H PRN PRN Reason: Fever >100.4 F Finasteride (Proscar) 5 mg PO DAILY [facility] Last Admin: 03/22/18 09:55 Dose: 5 mg Fluticasone Propionate (Flonase) 1 spr VALER[place] DAILY PRN PRN Reason: Nasal congestion Sodium Chloride (Sodium Chloride 0.45%) 1,000 mls @ 60 mls/hr IV .[id number] [facility] Stop: 03/23/18 15:13 Last Admin: 03/22/18 16:11 Dose: 60 mls/hr Metoprolol Succinate (Toprol Xl) 25 mg PO DAILY [facility] Last Admin: 03/22/18 09:56 Dose: 25 mg Ondansetron HCl (Zofran Inj) 4 mg IVP Q6H PRN PRN Reason: Nausea/Vomiting Pantoprazole Sodium (Protonix Ec Tab) 40 mg PO DAILY [facility] Last Admin: 03/22/18 09:56 Dose: 40 mg Tamsulosin HCl (Flomax) 0.4 mg PO QPM [facility] Results - Vital Signs Recent Vital Signs: Last Vital Signs Temp 96.3 F L 03/22/18 13:15 Pulse 90 03/22/18 14:00 Resp 16 03/22/18 14:00 BP 109/60 03/22/18 14:00 Pulse Ox 100 03/22/18 14:00 - Labs Result Diagrams: 03/22/18 08:27 03/22/18 08:27 Labs: Laboratory Results - last 24 hr 03/21/18 03/21/18 03/21/18 16:25 18:37 18:37 WBC 6.1 RBC 2.51 L Hgb 5.0 L* Hct 16.7 L MCV 66.8 L MCH 20.1 L MCHC 30.1 L RDW 17.1 H Plt Count 727 H MPV 5.9 L Neut % (Auto) 71.1 Lymph % (Auto) 15.3 L [place] % (Auto) 11.6 H Eos % (Auto) 1.2 Baso % (Auto) 0.8 Neut # (Auto) 4.4 Lymph # (Auto) 0.9 L [place] # (Auto) 0.7 Eos # (Auto) 0.1 Baso # (Auto) 0.0 PT INR APTT Sodium 132 Potassium 6.4 H* Chloride 100 Carbon Dioxide 16 L Anion Gap 22 H BUN 95 H Creatinine 6.4 H Est GFR ( Amer) 10 Est GFR (Non-Af Amer) 8 POC Glucose (mg/dL) 147 H Random Glucose 104 Calcium 9.1 Phosphorus Magnesium 2.7 H Total Bilirubin 0.4 AST 23 ALT 15 L Alkaline Phosphatase 70 Total Creatine Kinase Troponin I 0.0340 NT-Pro-B Natriuret Pep 9350 H Total Protein 7.8 Albumin 3.4 L Globulin 4.4 H Albumin/Globulin Ratio 0.8 L Urine Color Urine Clarity Urine pH Ur Specific [place] Urine Protein Urine Glucose (UA) Urine Ketones Urine Blood Urine Nitrate Urine Bilirubin Urine Urobilinogen Ur Leukocyte Esterase Urine RBC (Auto) Urine Microscopic WBC Ur Squamous Epith Cells Urine Bacteria Urine Osmolality Blood Type Antibody Screen Crossmatch BBK History Checked 03/21/18 03/21/18 03/22/18 18:37 20:15 00:30 WBC RBC Hgb Hct MCV MCH MCHC RDW Plt Count MPV Neut % (Auto) Lymph % (Auto) [place] % (Auto) Eos % (Auto) Baso % (Auto) Neut # (Auto) Lymph # (Auto) [place] # (Auto) Eos # (Auto) Baso # (Auto) PT 12.3 INR 1.1 APTT 18.6 L Sodium Potassium Chloride Carbon Dioxide Anion Gap BUN Creatinine Est GFR ( Amer) Est GFR (Non-Af Amer) POC Glucose (mg/dL) Random Glucose Calcium Phosphorus Magnesium Total Bilirubin AST ALT Alkaline Phosphatase Total Creatine Kinase Troponin I NT-Pro-B Natriuret Pep Total Protein Albumin Globulin Albumin/Globulin Ratio Urine Color Yellow Urine Clarity Cloudy Urine pH 5.0 Ur Specific [place] 1.013 Urine Protein 100 Urine Glucose (UA) Neg Urine Ketones Negative Urine Blood Large Urine Nitrate Negative Urine Bilirubin Negative Urine Urobilinogen 0.2-1.0 Ur Leukocyte Esterase Large Urine RBC (Auto) 570 H Urine Microscopic WBC 178 H Ur Squamous Epith Cells < 1 Urine Bacteria Mod H Urine Osmolality Blood Type O POSITIVE Antibody Screen Negative Crossmatch See Detail BBK History Checked Patient has bt 03/22/18 03/22/18 03/22/18 08:27 08:27 12:49 WBC 6.0 RBC 2.96 L Hgb 7.0 L D Hct 21.0 L MCV 70.7 L D MCH 23.6 L MCHC 33.4 RDW 22.3 H Plt Count 674 H MPV Neut % (Auto) Lymph % (Auto) [place] % (Auto) Eos % (Auto) Baso % (Auto) Neut # (Auto) Lymph # (Auto) [place] # (Auto) Eos # (Auto) Baso # (Auto) PT INR APTT Sodium 135 Potassium 5.0 Chloride 104 Carbon Dioxide 18 L Anion Gap 18 BUN 82 H Creatinine 5.3 H Est GFR ( Amer) 13 Est GFR (Non-Af Amer) 11 POC Glucose (mg/dL) Random Glucose 90 Calcium 8.2 L Phosphorus 7.2 H 7.0 H Magnesium Total Bilirubin AST ALT Alkaline Phosphatase Total Creatine Kinase 101 Troponin I NT-Pro-B Natriuret Pep Total Protein Albumin Globulin Albumin/Globulin Ratio Urine Color Urine Clarity Urine pH Ur Specific [place] Urine Protein Urine Glucose (UA) Urine Ketones Urine Blood Urine Nitrate Urine Bilirubin Urine Urobilinogen Ur Leukocyte Esterase Urine RBC (Auto) Urine Microscopic WBC Ur Squamous Epith Cells Urine Bacteria Urine Osmolality Blood Type Antibody Screen Crossmatch BBK History Checked 03/22/18 15:40 WBC RBC Hgb Hct MCV MCH MCHC RDW Plt Count MPV Neut % (Auto) Lymph % (Auto) [place] % (Auto) Eos % (Auto) Baso % (Auto) Neut # (Auto) Lymph # (Auto) [place] # (Auto) Eos # (Auto) Baso # (Auto) PT INR APTT Sodium Potassium Chloride Carbon Dioxide Anion Gap BUN Creatinine Est GFR ( Amer) Est GFR (Non-Af Amer) POC Glucose (mg/dL) Random Glucose Calcium Phosphorus Magnesium Total Bilirubin AST ALT Alkaline Phosphatase Total Creatine Kinase Troponin I NT-Pro-B Natriuret Pep Total Protein Albumin Globulin Albumin/Globulin Ratio Urine Color Urine Clarity Urine pH Ur Specific [place] Urine Protein Urine Glucose (UA) Urine Ketones Urine Blood Urine Nitrate Urine Bilirubin Urine Urobilinogen Ur Leukocyte Esterase Urine RBC (Auto) Urine Microscopic WBC Ur Squamous Epith Cells Urine Bacteria Urine Osmolality 368 Blood Type Antibody Screen Crossmatch BBK History Checked Assessment & Plan (1) Acute renal failure (ARF) Status: Acute (2) Enlarged RV (right ventricle) Status: Acute (3) Atrial enlargement, bilateral Status: Acute (4) A-fib Status: Acute - Assessment and Plan (Free Text) Plan: PT WITH SIG ANEMIA, WOULD NOT ANTICOAGULATE AT THIS TIME. RVD AND ELINOR IS CONCERNING FOR CHRONIC PE GIVEN CA. WOULD CHECK LE DUPLEX. CONT BB'S.
[2018-03-22 21:27] LABS: HEPATITIS B SURFACE AG Negative (NEGATIVE)
[2018-03-22 21:47] LABS: HEPATITIS C ANTIBODY NEGATIVE (NEGATIVE)
[2018-03-22 22:04] LABS: FOLATE 15.7 ng/mL
--- NOTE | 2018-03-23 01:39 | PN ---
DATE: 03/22/2018 LOCATION: The patient in room 423. TIME SPENT: 35 minutes. SUBJECTIVE: The patient is seen and evaluated at the bedside. Past medical, surgical, social, and family history reviewed. Limited history as the patient is not aware of his medical conditions. SUBJECTIVE: A 77-year-old male with history noted as in H and P, significant for benign prostate hypertrophy; atrial fibrillation, unknown it is acute or chronic; hypertension, admitted through emergency room after a syncopal episode, history of multiple falls at home, noted to have severe anemia and elevated BUN and creatinine, status post transfusion packed red blood cells. Since admission, the patient remains alert and awake, follows commands appropriately. Denies some headache. No blurring of vision. No shortness of breath, chest pain, or palpitation. Denies abdominal discomfort. No melena or hematuria. ALLERGIES: NONE DOCUMENTED. CURRENT MEDICATIONS: Include Tylenol 650 every 6 hours p.r.n., Proscar 5 mg p.o. daily, Flonase 1 spray both nostrils p.r.n. for nasal congestion, Toprol-XL 25 mg p.o. daily, Zofran 4 mg IV every 6 hours p.r.n., Protonix 40 mg p.o. daily, and Flomax 0.4 mg p.o. daily. PHYSICAL EXAMINATION: GENERAL: Elderly male oriented to name, place, and time. VITAL SIGNS: Temperature 97.9, heart rate 90 and regular, blood pressure 105/52, mean arterial pressure 69, respiratory rate 16 to 18, and saturation 100% on room air. Intake 2875, output 501. Positive balance 2374. HEAD, EYES, EARS, NOSE, AND THROAT: Pupils reactive. Conjunctivae pale. Sclerae white. NECK: Supple. Trachea central. CHEST: Bilateral breath sounds. Clear to auscultation. HEART: Rhythm irregular. ABDOMEN: Bowel sounds present. Soft. Liver and spleen not palpable. Bladder not distended. EXTREMITIES: No clubbing, cyanosis, or edema. NEUROLOGIC: No cranial nerve deficit. No motor deficit. No sensory impairment. Plantar mild flexor. LABORATORY DATA: WBC 6, hemoglobin 7, hematocrit 21, MCV 70.7, and platelet count of 674. PT 12.5, INR 1.1, PTT 18.6. SMA-7: Sodium 135, potassium 5, chloride 104, CO2 18, blood urea nitrogen 82, creatinine of 5.3, random glucose 90, calcium 8.2, phosphorus 7.2, and magnesium 2.7. Total bilirubin 0.4, AST 23, ALT 15, alkaline phosphatase 70, CK 101, troponin 0.0340. ProBNP 9350, total protein 7.8, and albumin 3.4. Urinalysis: Leukocyte esterase large, rbc 570, wbc 178, bacteria moderate. Microbiology, none reported. Chest x-ray: No pneumothorax or pleural effusion, atherosclerotic aortic calcification, cardiomediastinal silhouette enlarged, degenerative changes of the osseous structures. No active disease. Echocardiogram: Echocardiogram done on 03/21/2018, normal LV size, [id number] concentric left ventricular hypertrophy, left ventricular function is normal. Left ventricular ejection fraction 60%. Regional wall motion abnormalities. Mild septal wall hypokinesia. Aortic valve is thickened, but opens well, mild regurgitation, trace to mild tricuspid regurgitation, mild pulmonary valvular regurgitation, aortic root is gtlj-ie-pqqndwhtar enlarged. Electrocardiogram: Atrial fibrillation rate 88, QTC 413. Head CT: No acute intracranial abnormalities. No significant findings. No hydrocephalus. No mass effect or edema. No intracranial hemorrhage. Renal ultrasound: Unremarkable renal sonogram. IMPRESSION: 1. Neurologic: Syncopal episode, history of multiple falls at home, etiology unclear. CT head negative. No acute deficit noted, probably related to anemia. 2. Cardiac: Left ventricular hypertrophy, probably related to hypertension. Atrial fibrillation, unclear new or old. Normal echocardiogram. Cardiology evaluation pending. Hold anticoagulation until a gastrointestinal workup is completed. 3. Hematology: Hypochromic microcytic anemia, rule out gastrointestinal bleeding. Gastrointestinal consult on board. Hematology/Oncology consult requested for further clarification of anemia. 4. Endocrine: No history of diabetes mellitus, or hypothyroidism. We will obtain TSH and closely monitor blood sugar, maintain sugar below 180. 5. Psychiatric: No evidence of depression or dementia. Follow B12, folate, TSH, RPR. Screen for human immunodeficiency virus antibody and hepatitis B and C serology. Earnest Espinal MD
[2018-03-23 06:14] LABS: FERRITIN 58.5 ng/Ml (17.9-464)
[2018-03-23 08:00] LABS: MEAN CELL VOLUME 70.1 fl (80.0-94.0); MEAN CORPUSCULAR HEMOGLOBIN 23.2 pg (27.0-31.0); MEAN CORPUSCULAR HGB CONC 33.1 g/dL (33.0-37.0); RBC 2.74 Mil/uL (4.40-5.90); RED CELL DISTRIBUTION WIDTH 21.3 % (11.5-14.5); WHITE BLOOD COUNT 6.4 K/uL (4.8-10.8)
[2018-03-23 08:09] LABS: HEMOGLOBIN 6.4 g/dL (12.0-18.0)
[2018-03-23] MEDS: Pantoprazole 40 mg EC Tab PO SCH (08:13)
[2018-03-23] MEDS: Sodium Chloride 0.45% 1,000 ML IV SCH (08:13)
[2018-03-23] MEDS: Metoprolol Succinate 25 mg XL Tab PO SCH (08:14)
--- NOTE | 2018-03-23 11:57 | CP.PCM.PN ---
Subjective - Date & Time of Evaluation Date of Evaluation: 03/23/18 Time of Evaluation: 11:55 - Subjective Subjective: patient M bed not in acute distress appeared to be comfortable. No nausea no vomiting Objective - Vital Signs/Intake and Output Vital Signs (last 24 hours): Temp Pulse Resp BP Pulse Ox 97.9 F 87 16 103/61 100 03/23/18 11:20 03/23/18 11:20 03/23/18 11:20 03/23/18 11:20 03/23/18 10:00 Intake and Output: 03/23/18 03/23/18 06:59 18:59 Intake Total 615 845 Output Total 250 300 Balance 365 545 - Medications Medications: Current Medications Acetaminophen (Tylenol 325mg Tab) 650 mg PO Q6H PRN PRN Reason: Fever >100.4 F Finasteride (Proscar) 5 mg PO DAILY [facility] Last Admin: 03/23/18 08:13 Dose: 5 mg Fluticasone Propionate (Flonase) 1 spr [place]ER[place] DAILY PRN PRN Reason: Nasal congestion Sodium Chloride (Sodium Chloride 0.45%) 1,000 mls @ 60 mls/hr IV .[id number] [facility] Stop: 03/23/18 15:13 Last Admin: 03/23/18 08:13 Dose: 60 mls/hr Metoprolol Succinate (Toprol Xl) 25 mg PO DAILY [facility] Last Admin: 03/23/18 08:14 Dose: 25 mg Ondansetron HCl (Zofran Inj) 4 mg IVP Q6H PRN PRN Reason: Nausea/Vomiting Pantoprazole Sodium (Protonix Ec Tab) 40 mg PO DAILY [facility] Last Admin: 03/23/18 08:13 Dose: 40 mg Tamsulosin HCl (Flomax) 0.4 mg PO QPM [facility] Last Admin: 03/22/18 17:17 Dose: 0.4 mg - Labs Labs: 03/23/18 07:56 03/23/18 07:56 PT 12.3 Seconds (9.8-13.1) 03/21/18 18:37 INR 1.1 (0.9-1.2) 03/21/18 18:37 APTT 18.6 Seconds (25.6-37.1) L 03/21/18 18:37 - Constitutional Appears: No Acute Distress - ENT Exam ENT Exam: Mucous Membranes Dry - Respiratory Exam Respiratory Exam: absent: Chest Wall Tenderness - Cardiovascular Exam Cardiovascular Exam: absent: Gallop, JVD, Rubs - GI/Abdominal Exam GI & Abdominal Exam: Soft, Normal Bowel Sounds - Extremities Exam Extremities Exam: absent: Calf Tenderness - Back Exam Back Exam: absent: CVA tenderness (L), CVA tenderness (R) - Neurological Exam Neurological Exam: Alert - Psychiatric Exam Psychiatric exam: Normal Affect - Skin Skin Exam: absent: Cyanosis Assessment and Plan (1) Hyperkalemia Status: Acute (2) Acute renal failure (ARF) Assessment & Plan: acute kidney injury appeared to be improving serum creatinine coming down. Patient is still appears to be somewhat dehydrated. Hyponatremia Change IV fluid to normal saline And continue gentle hydration The rest of the medical problem as noted was history of diabetes history of cancer of the prostate Status: Acute
--- NOTE | 2018-03-23 13:55 | CP.CCUPN ---
CCU Subjective - Physician Review Subjective (Free Text): Able to get OOB to chair this AM, self voiding, no gross hematuria noted now. No other s/sx active bleeding. Arranged to get 2 additional units PRBCs this AM. Other vitals and I/O's reviewed. No fever spikes nor any low grade temps last 24H. HR 80s in sinus, BP range for systolic has been 100-110's today, SPO2 99% on NC. ROS: No other pertinent negs or positives on 10+ system review PMSFH: All other Nursing and physician documentation reviewed to date; no new pertinent info noted relevant to current medical problems. EXAM- HEENT: no icterus, no gaze preference NECK: No JVD, supple, carotids equal upstroke bilat/no bruits CHEST: decreased BS bases, no wheezes audible HEART: regular, distant, S1S2, no rubs or murmurs ABD: soft, no distention, no tympany, no palp tenderness, BS hypoactive EXT: no peripheral/ digital cyanosis, no calf tenderness or palpable cords, distal pulses intact and symmetrical. RUE PICC intact. NEURO: no focal motor deficits SKIN: no rashes, warm and dry. LABS: WBC= 6.4 HGB= 6.4 PLTs= 535K Lf=704 K= 4.4 NT=814 HCO3= 19 BUN/Cr= 72/4.9 BS= 100 IMPRESSION / MAJOR PROBLEMS NOW: 1. Acute Anemia, r/o GI Blood loss vs Acute on Chronic disease Anemia 2. Syncope / Falls at home 2 Severe Anemia 3. Azotemia with Hyperkalemia, r/o Acute on CKD 4. h/o A Fib, with controlled VR now. PLAN: 1. Ongoing serial monitoring of HGb levels. No active bleeding evident now via GI or tract. 2. K levels improved, would increase fluids from present rate of 60 ml/hr. No need for immediate SPOON MAKER. Stop diuretics. 3. Atrial Fib: unclear paroxysmal vs new onset?? ECHO results noted, normal size LA noted, no thrombi anywhere, LVEF acceptable. Continue Toprol for rate control, on no AC for now. 4. Consider Carotid US study; anemia eval as per Hematology. CCU Objective - Vital Signs / Intake & Output Vital Signs (Last 4 hours): Vital Signs Temp Pulse Resp BP Pulse Ox 03/23/18 13:30 98 F 84 16 101/62 03/23/18 13:10 98 F 87 16 107/66 03/23/18 12:45 98 F 89 16 113/59 L 03/23/18 12:30 98 F 85 16 98/57 L 03/23/18 12:00 98.0 F 90 21 100 03/23/18 11:20 97.9 F 87 16 103/61 03/23/18 10:35 97.9 F 100 H 18 114/60 03/23/18 10:00 97.9 F 89 15 103/54 L 100 Intake and Output (Last 8hrs): Intake & Output 03/22/18 03/23/18 03/23/18 22:59 06:59 14:59 Intake Total 6703 450 0965 Output Total 425 125 500 Balance 825 310 790 Intake: IV 600 360 360 Oral 650 75 600 Blood Product 325 Red Blood Cells Cpd As1 325 Lr Unit [id number] Red Blood Cells Cpd As1 0 Lr Unit [id number] Other 5 Red Blood Cells Cpd As1 5 Lr Unit [id number] Output: Urine 425 125 500 Urine, Voided 425 125 500 Other: # Bowel Movements 2 - Patient Studies Fingerstick Blood Sugar Results: 168
[2018-03-23 16:55] LABS: FOLATE 8.2 ng/mL
[2018-03-23 19:48] LABS: HEMOGLOBIN 7.8 g/dL (12.0-18.0); MEAN CORPUSCULAR HEMOGLOBIN 23.9 pg (27.0-31.0); MEAN CORPUSCULAR HGB CONC 32.7 g/dL (33.0-37.0); RBC 3.25 Mil/uL (4.40-5.90); RED CELL DISTRIBUTION WIDTH 22.6 % (11.5-14.5); WHITE BLOOD COUNT 7.3 K/uL (4.8-10.8)
[2018-03-23 19:56] LABS: MEAN CELL VOLUME 73.2 fl (80.0-94.0)
--- NOTE | 2018-03-23 20:21 | CP.PCM.PN ---
Subjective - Date & Time of Evaluation Date of Evaluation: 03/23/18 Time of Evaluation: 18:30 - Subjective Subjective: coverage for Dr Spence. patient did not cooperate with questioning or physical exam. continue to hold anticoagulation Objective - Vital Signs/Intake and Output Vital Signs (last 24 hours): Temp Pulse Resp BP Pulse Ox 98.3 F 93 H 17 111/56 L 100 03/23/18 16:00 03/23/18 18:00 03/23/18 18:00 03/23/18 18:00 03/23/18 18:00 Intake and Output: 03/23/18 03/24/18 18:59 06:59 Intake Total 3825 Output Total 550 Balance 3275 - Medications Medications: Current Medications Acetaminophen (Tylenol 325mg Tab) 650 mg PO Q6H PRN PRN Reason: Fever >100.4 F Finasteride (Proscar) 5 mg PO DAILY [facility] Last Admin: 03/23/18 08:13 Dose: 5 mg Fluticasone Propionate (Flonase) 1 spr VALERIA DAILY PRN PRN Reason: Nasal congestion Metoprolol Succinate (Toprol Xl) 25 mg PO DAILY [facility] Last Admin: 03/23/18 08:14 Dose: 25 mg Ondansetron HCl (Zofran Inj) 4 mg IVP Q6H PRN PRN Reason: Nausea/Vomiting Pantoprazole Sodium (Protonix Ec Tab) 40 mg PO DAILY [facility] Last Admin: 03/23/18 08:13 Dose: 40 mg Tamsulosin HCl (Flomax) 0.4 mg PO QPM [facility] Last Admin: 03/23/18 17:24 Dose: 0.4 mg - Labs Labs: 03/23/18 19:44 03/23/18 07:56 PT 12.3 Seconds (9.8-13.1) 03/21/18 18:37 INR 1.1 (0.9-1.2) 03/21/18 18:37 APTT 18.6 Seconds (25.6-37.1) L 03/21/18 18:37
--- NOTE | 2018-03-23 21:25 | CP.PCM.PN ---
Subjective - Date & Time of Evaluation Date of Evaluation: 03/23/18 Time of Evaluation: 18:30 - Subjective Subjective: No complaints, appears comfortable. Objective - Vital Signs/Intake and Output Vital Signs (last 24 hours): Temp Pulse Resp BP Pulse Ox 98.3 F 93 H 17 111/56 L 100 03/23/18 16:00 03/23/18 18:00 03/23/18 18:00 03/23/18 18:00 03/23/18 18:00 Intake and Output: 03/23/18 03/24/18 18:59 06:59 Intake Total 3825 Output Total 550 Balance 3275 - Medications Medications: Current Medications Acetaminophen (Tylenol 325mg Tab) 650 mg PO Q6H PRN PRN Reason: Fever >100.4 F Finasteride (Proscar) 5 mg PO DAILY [facility] Last Admin: 03/23/18 08:13 Dose: 5 mg Fluticasone Propionate (Flonase) 1 spr VALERIA DAILY PRN PRN Reason: Nasal congestion Iron Sucrose 200 mg/ Sodium (Chloride) 110 mls @ 110 mls/hr IVPB DAILY [facility] Stop: 03/28/18 21:31 Metoprolol Succinate (Toprol Xl) 25 mg PO DAILY [facility] Last Admin: 03/23/18 08:14 Dose: 25 mg Ondansetron HCl (Zofran Inj) 4 mg IVP Q6H PRN PRN Reason: Nausea/Vomiting Pantoprazole Sodium (Protonix Ec Tab) 40 mg PO DAILY [facility] Last Admin: 03/23/18 08:13 Dose: 40 mg Tamsulosin HCl (Flomax) 0.4 mg PO QPM [facility] Last Admin: 03/23/18 17:24 Dose: 0.4 mg - Labs Labs: 03/23/18 19:44 03/23/18 07:56 PT 12.3 Seconds (9.8-13.1) 03/21/18 18:37 INR 1.1 (0.9-1.2) 03/21/18 18:37 APTT 18.6 Seconds (25.6-37.1) L 03/21/18 18:37 - Head Exam Head Exam: ATRAUMATIC - Eye Exam Eye Exam: Normal appearance - ENT Exam ENT Exam: Mucous Membranes Dry - Respiratory Exam Respiratory Exam: NORMAL BREATHING PATTERN - Cardiovascular Exam Cardiovascular Exam: +S1, +S2 - GI/Abdominal Exam GI & Abdominal Exam: Normal Bowel Sounds Assessment and Plan (1) Anemia Assessment & Plan: iron deficiency s/p PRBC transfusion will start IV iron ? CKD Status: Acute (2) Thrombocytosis Assessment & Plan: likely reactive to iron deficiency Status: Acute
[2018-03-24 05:34] LABS: HEMOGLOBIN 7.7 g/dL (12.0-18.0); MEAN CELL VOLUME 73.2 fl (80.0-94.0); MEAN CORPUSCULAR HEMOGLOBIN 24.1 pg (27.0-31.0); MEAN CORPUSCULAR HGB CONC 32.9 g/dL (33.0-37.0); RBC 3.18 Mil/uL (4.40-5.90); RED CELL DISTRIBUTION WIDTH 22.5 % (11.5-14.5); WHITE BLOOD COUNT 6.8 K/uL (4.8-10.8)
[2018-03-24 05:38] LABS: CALCIUM 7.6 mg/dL (8.4-10.2)
[2018-03-24] MEDS ORDERED: Sodium Chloride 0.9% 1,000 ML IV SCH (09:00)
--- NOTE | 2018-03-24 09:39 | CP.PCM.PN ---
Subjective - Date & Time of Evaluation Date of Evaluation: 03/24/18 Time of Evaluation: 09:38 - Subjective Subjective: patient awake and conscious and he appeared to have his breakfast nicely no nausea no vomiting Objective - Vital Signs/Intake and Output Vital Signs (last 24 hours): Temp Pulse Resp BP Pulse Ox 98.5 F 86 16 113/88 99 03/24/18 08:00 03/24/18 08:00 03/24/18 08:00 03/24/18 08:00 03/24/18 08:00 Intake and Output: 03/24/18 03/24/18 06:59 18:59 Intake Total 760 Output Total 150 Balance 610 - Medications Medications: Current Medications Acetaminophen (Tylenol 325mg Tab) 650 mg PO Q6H PRN PRN Reason: Fever >100.4 F Finasteride (Proscar) 5 mg PO DAILY [facility] Last Admin: 03/23/18 08:13 Dose: 5 mg Fluticasone Propionate (Flonase) 1 spr VALERIA DAILY PRN PRN Reason: Nasal congestion Iron Sucrose 200 mg/ Sodium (Chloride) 110 mls @ 110 mls/hr IVPB DAILY [facility] Stop: 03/28/18 21:31 Last Admin: 03/23/18 22:43 Dose: 110 mls/hr Sodium Chloride (Sodium Chloride 0.9%) 1,000 mls @ 60 mls/hr IV .[id number] [facility] Stop: 03/25/18 08:55 Metoprolol Succinate (Toprol Xl) 25 mg PO DAILY [facility] Last Admin: 03/23/18 08:14 Dose: 25 mg Ondansetron HCl (Zofran Inj) 4 mg IVP Q6H PRN PRN Reason: Nausea/Vomiting Pantoprazole Sodium (Protonix Ec Tab) 40 mg PO DAILY [facility] Last Admin: 03/23/18 08:13 Dose: 40 mg Tamsulosin HCl (Flomax) 0.4 mg PO QPM [facility] Last Admin: 03/23/18 17:24 Dose: 0.4 mg - Labs Labs: 03/24/18 04:31 03/24/18 04:31 PT 12.3 Seconds (9.8-13.1) 03/21/18 18:37 INR 1.1 (0.9-1.2) 03/21/18 18:37 APTT 18.6 Seconds (25.6-37.1) L 03/21/18 18:37 - Constitutional Appears: No Acute Distress - ENT Exam ENT Exam: Mucous Membranes Moist - Neck Exam Neck Exam: absent: Lymphadenopathy - Respiratory Exam Respiratory Exam: NORMAL BREATHING PATTERN. absent: Chest Wall Tenderness - Cardiovascular Exam Cardiovascular Exam: absent: Gallop, JVD, Rubs - GI/Abdominal Exam GI & Abdominal Exam: Soft, Normal Bowel Sounds - Extremities Exam Extremities Exam: absent: Calf Tenderness - Back Exam Back Exam: absent: CVA tenderness (L), CVA tenderness (R) - Neurological Exam Neurological Exam: Alert - Psychiatric Exam Psychiatric exam: Normal Affect - Skin Skin Exam: absent: Cyanosis Assessment and Plan (1) Hyperkalemia Status: Acute (2) Acute renal failure (ARF) Assessment & Plan: acute kidney injury appeared to be improving serum creatinine coming down.perhaps superimposed on chronic kidney disease we do not know the baseline of serum creatinine although ultrasound of the kidney reported to be unremarkable Patient is still appears to be somewhat dehydrated. Hyponatremia getting worse serum sodium 130 patient was not given normal saline as of yet I spoke to the nurse in intensive care unit severe anemia as noted per hematology patient need EPO after correcting serum iron and ferritin Change IV fluid to normal saline And continue gentle hydration The rest of the medical problem as noted was history of diabetes history of cancer of the prostate Status: Acute
[2018-03-24] MEDS: Pantoprazole 40 mg EC Tab PO SCH (10:24)
[2018-03-24] MEDS: Metoprolol Succinate 25 mg XL Tab PO SCH (10:25)
--- NOTE | 2018-03-24 15:11 | CP.PCM.PN ---
Subjective - Date & Time of Evaluation Date of Evaluation: 03/24/18 Time of Evaluation: 16:00 - Subjective Subjective: PT NOT VERBALIZING COMPLAINTS. NO SIGNIFICANT HEMODYNAMIC CHANGES. CONTINUED AFIB. ECHO IMAGES REVIEWED. PT HAS RV AND RA DILITATION WELL LA DILITATION. THERE IS MILD MR, MOD TR, MOD PI AND MILD PHTN. EF IS NORMAL. Objective - Vital Signs/Intake and Output Vital Signs (last 24 hours): Temp Pulse Resp BP Pulse Ox 98.2 F 93 H 17 99/70 L 100 03/24/18 12:00 03/24/18 12:00 03/24/18 12:00 03/24/18 12:00 03/24/18 12:00 Intake and Output: 03/24/18 03/24/18 06:59 18:59 Intake Total 760 940 Output Total 150 450 Balance 610 490 - Medications Medications: Current Medications Acetaminophen (Tylenol 325mg Tab) 650 mg PO Q6H PRN PRN Reason: Fever >100.4 F Finasteride (Proscar) 5 mg PO DAILY [facility] Last Admin: 03/24/18 10:24 Dose: 5 mg Fluticasone Propionate (Flonase) 1 spr [place]ERIA DAILY PRN PRN Reason: Nasal congestion Iron Sucrose 200 mg/ Sodium (Chloride) 110 mls @ 110 mls/hr IVPB DAILY [facility] Stop: 03/28/18 21:31 Last Admin: 03/24/18 12:10 Dose: 110 mls/hr Sodium Chloride (Sodium Chloride 0.9%) 1,000 mls @ 60 mls/hr IV .[id number] [facility] Stop: 03/25/18 08:55 Last Admin: 03/24/18 10:25 Dose: 60 mls/hr Metoprolol Succinate (Toprol Xl) 25 mg PO DAILY [facility] Last Admin: 03/24/18 10:25 Dose: 25 mg Ondansetron HCl (Zofran Inj) 4 mg IVP Q6H PRN PRN Reason: Nausea/Vomiting Pantoprazole Sodium (Protonix Ec Tab) 40 mg PO DAILY [facility] Last Admin: 03/24/18 10:24 Dose: 40 mg Tamsulosin HCl (Flomax) 0.4 mg PO QPM [facility] Last Admin: 03/23/18 17:24 Dose: 0.4 mg - Labs Labs: 03/24/18 04:31 03/24/18 04:31 PT 12.3 Seconds (9.8-13.1) 03/21/18 18:37 INR 1.1 (0.9-1.2) 03/21/18 18:37 APTT 18.6 Seconds (25.6-37.1) L 03/21/18 18:37 - Constitutional Appears: Well - Head Exam Head Exam: ATRAUMATIC, NORMAL INSPECTION, NORMOCEPHALIC - Eye Exam Eye Exam: EOMI, Normal appearance, PERRL. absent: Conjunctival injection, Nystagmus, Periorbital swelling, Periorbital tenderness, Scleral icterus Pupil Exam: NORMAL ACCOMODATION, PERRL - ENT Exam ENT Exam: Mucous Membranes Moist, Normal Exam. absent: Mucous Membranes Dry, Normal External Ear Exam, Normal Oropharynx, TM's Normal Bilaterally - Neck Exam Neck Exam: Full ROM, Normal Inspection. absent: Lymphadenopathy, Meningismus, Tenderness, Thyromegaly - Respiratory Exam Respiratory Exam: Clear to Ausculation Bilateral, NORMAL BREATHING PATTERN. absent: Accessory Muscle Use, Chest Wall Tenderness, Decreased Breath Sounds, Prolonged Expiratory Phase, Rales, Rhonchi, Wheezes, Respiratory Distress, Stridor - Cardiovascular Exam Cardiovascular Exam: Diastolic murmur, Irregular Rhythm, +S1, +S2, Murmur - GI/Abdominal Exam GI & Abdominal Exam: Soft, Normal Bowel Sounds. absent: Bruit, Distended, Firm , Guarding, Rigid, Tenderness, Diminished Bowel Sounds, Hernia, Hyperactive Bowel Sounds, Hypoactive Bowel Sounds, Organomegaly, Pulsatile Mass, Rebound, Mass - Rectal Exam Rectal Exam: Deferred - Extremities Exam Extremities Exam: Full ROM, Normal Capillary Refill, Normal Inspection. absent : Joint Swelling, Pedal Edema - Back Exam Back Exam: NORMAL INSPECTION. absent: CVA tenderness (L), CVA tenderness (R), Full ROM, muscle spasm, paraspinal tenderness, rash noted, tenderness, vertebral tenderness - Neurological Exam Neurological Exam: Alert, Awake, CN II-XII Intact, Oriented x3. absent: Abnormal Gait, Altered, Motor Sensory Deficit, Reflexes Normal - Psychiatric Exam Psychiatric exam: Flat Affect, Normal Mood. absent: Agitated, Anxious, Depressed, Homicidal Ideation, Manic, Normal Affect, Suicidal Ideation - Skin Skin Exam: Dry, Intact, Normal Color, Warm. absent: Abrasion, Cyanosis, Diaphoretic, Erythema, Mottled, Pallor, Pallor, Petechiae, Rash, Urticaria, Vesicles Assessment and Plan (1) Acute renal failure (ARF) Status: Acute (2) Enlarged RV (right ventricle) Status: Acute (3) Atrial enlargement, bilateral Status: Acute (4) A-fib Status: Acute - Assessment and Plan (Free Text) Plan: ETIOLOGY OF RV DILATATION IS UNKNOWN. CONSIDERATION FOR V/Q STUDY AND LE DUPLEX SHOULD BE GIVEN TO EVAL FOR CHRONIC PE. CONTINUE TREATING RENAL FAILURE. AFIB IS RATE CONTROLLED. GIVEN SIZE OF ATRIA, AFIB IS LIKELY LONG STANDING. ANTICOAGULATION SHOULD BE CONSIDERED ONCE ANEMIA ETIOLOGY IDENTIFIED AND LEVELS STABILIZE.
--- NOTE | 2018-03-24 17:53 | VASCULAR ---
Date of service: 03/22/2018 PROCEDURE: Venous access HISTORY: IV access COMPARISON: None TECHNIQUE: Standard protocol for this study/examination. FINDINGS: Total fluoroscopic time (continuous mode) utilized during the procedure 8.1 (seconds). Total exam DLP: 1.17 (mGy) IMPRESSION: Submitted images from the current procedure: 1.0
[2018-03-24 18:24] LABS: CREATININE, RANDOM URINE 57.5 mg/dL
[2018-03-25 06:34] LABS: HEMOGLOBIN 7.8 g/dL (12.0-18.0); MEAN CELL VOLUME 72.5 fl (80.0-94.0); MEAN CORPUSCULAR HEMOGLOBIN 24.1 pg (27.0-31.0); MEAN CORPUSCULAR HGB CONC 33.2 g/dL (33.0-37.0); RBC 3.23 Mil/uL (4.40-5.90); RED CELL DISTRIBUTION WIDTH 22.7 % (11.5-14.5); WHITE BLOOD COUNT 7.2 K/uL (4.8-10.8)
[2018-03-25 06:54] LABS: CALCIUM 7.8 mg/dL (8.4-10.2)
[2018-03-25] MEDS: Metoprolol Succinate 25 mg XL Tab PO SCH (08:16)
[2018-03-25] MEDS: Pantoprazole 40 mg EC Tab PO SCH (08:16)
--- NOTE | 2018-03-25 09:20 | CP.PCM.HP ---
History of Present Illness - History of Present Illness History of Present Illness: CC: AMS, and Passed out History of Present Illness: A 77 y/o male with MHx of BPH and HTN was brought to the ER for AMS and syncopal episode. +Generalized weakness and multiple falls for the last 3-4 days. In the ER, patient was found to have Severe Anemia Hgb 5.0 mg/dl, Acute on Chronic Renal Failure and A. fib (?chronic VS New onset) and patient not aware. Denies f/c/n/v/d. 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 Present on Admission - Present on Admission Any Indicators Present on Admission: No Review of Systems - Review of Systems All systems: reviewed and no additional remarkable complaints except - Cardiovascular Cardiovascular: As Per HPI - Neurological Neurological: As Per HPI Past Patient History - Infectious Disease Hx of Infectious Diseases: None - Past Medical History & Family History Past Medical History?: Yes Past Family History: Reviewed and not pertinent - Past Social History Smoking Status: Former Smoker Alcohol: None Drugs: Denies - CARDIAC Hx Hypertension: No - PULMONARY Hx Respiratory Disorders: No - NEUROLOGICAL Hx Neurological Disorder: No - HEENT Hx HEENT Problems: Yes - RENAL Hx Chronic Kidney Disease: No - ENDOCRINE/METABOLIC Hx Endocrine Disorders: No - HEMATOLOGICAL/ONCOLOGICAL Hx Blood Disorders: Yes - INTEGUMENTARY Hx Dermatological Problems: No - MUSCULOSKELETAL/RHEUMATOLOGICAL Hx Musculoskeletal Disorders: Yes - GASTROINTESTINAL Hx Gastrointestinal Disorders: No - GENITOURINARY/GYNECOLOGICAL Hx Genitourinary Disorders: Yes (RETENTION BUTLER TO SGD) - PSYCHIATRIC Hx Psychophysiologic Disorder: No - SURGICAL HISTORY Hx Appendectomy: Yes - ANESTHESIA Hx Anesthesia: Yes Hx Anesthesia Reactions: No Hx Malignant Hyperthermia: No Meds Allergies/Adverse Reactions: Allergies Allergy/AdvReac Type Severity Reaction Status Date / Time No Known Allergies Allergy Verified 01/02/14 08:07 Physical Exam - Constitutional Appears: Well, No Acute Distress - Head Exam Head Exam: ATRAUMATIC, NORMAL INSPECTION, NORMOCEPHALIC - Eye Exam Eye Exam: EOMI, Normal appearance, PERRL Pupil Exam: NORMAL ACCOMODATION, PERRL - ENT Exam ENT Exam: Mucous Membranes Moist, Normal Exam - Neck Exam Neck exam: Positive for: Full Rom, Normal Inspection - Respiratory Exam Respiratory Exam: Clear to Auscultation Bilateral, NORMAL BREATHING PATTERN - Cardiovascular Exam Cardiovascular Exam: REGULAR RHYTHM, +S1, +S2 - GI/Abdominal Exam GI & Abdominal Exam: Normal Bowel Sounds, Soft. absent: Tenderness - Extremities Exam Extremities exam: Positive for: normal capillary refill, normal inspection - Back Exam Back exam: NORMAL INSPECTION - Neurological Exam Neurological exam: Alert, CN II-XII Intact, Normal Gait, Oriented x3, Reflexes Normal - Psychiatric Exam Psychiatric exam: Normal Affect, Normal Mood - Skin Skin Exam: Dry, Intact, Normal Color, Warm Results - Vital Signs Recent Vital Signs: Last Vital Signs Temp 99.0 F 03/25/18 08:00 Pulse 96 H 03/25/18 08:16 Resp 18 03/25/18 08:00 BP 117/69 03/25/18 08:16 Pulse Ox 99 03/25/18 08:00 - Labs Result Diagrams: 03/25/18 06:31 03/25/18 06:31 Labs: Laboratory Results - last 24 hr 03/24/18 03/24/18 03/24/18 10:24 16:06 18:00 WBC RBC Hgb Hct MCV MCH MCHC RDW Plt Count Sodium Potassium Chloride Carbon Dioxide Anion Gap BUN Creatinine Est GFR ( Amer) Est GFR (Non-Af Amer) POC Glucose (mg/dL) 97 Random Glucose Calcium Phosphorus 5.0 H Ur Random Creatinine 57.5 U Random Total Protein 240.0 H 03/25/18 03/25/18 06:31 06:31 WBC 7.2 RBC 3.23 L Hgb 7.8 L Hct 23.4 L MCV 72.5 L MCH 24.1 L MCHC 33.2 RDW 22.7 H Plt Count 429 H Sodium 133 Potassium 4.3 Chloride 108 H Carbon Dioxide 18 L Anion Gap 11 BUN 58 H Creatinine 4.2 H Est GFR ( Amer) 17 Est GFR (Non-Af Amer) 14 POC Glucose (mg/dL) Random Glucose 89 Calcium 7.8 L Phosphorus Ur Random Creatinine U Random Total Protein - EKG Data EKG comments: A .fibrillation, Rate Controlled. - Imaging and Cardiology CT scan - head Status: Report reviewed by me Additional comment: PROCEDURE: CT HEAD WITHOUT CONTRAST. HISTORY: SYNCOPE/FALLS COMPARISON: None available. TECHNIQUE: Axial computed tomography images were obtained through the head/brain without intravenous contrast. Coronal and sagittal reconstructed images. Radiation dose: Total exam DLP = 770.12 mGy-cm. This CT exam was performed using one or more of the following dose reduction techniques: Automated exposure control, adjustment of the mA and/or kV according to patient size, and/or use of iterative reconstruction technique. FINDINGS: HEMORRHAGE: No intracranial hemorrhage. BRAIN: No mass effect or edema. Cortical atrophy, periventricular small vessel disease. VENTRICLES: Unremarkable. No hydrocephalus. CALVARIUM: Unremarkable. PARANASAL SINUSES: Evidence of chronic maxillary sinusitis. No acute findings. MASTOID AIR CELLS: Unremarkable as visualized. No inflammatory changes. OTHER FINDINGS: None. IMPRESSION: No acute intracranial abnormalities. No significant findings to account for the clinical presentation. Assessment & Plan (1) Altered mental status Assessment and Plan: Syncope/Multiple Fall ? Etiology Metabolic Encephalopathy, CVS Ruled out Supportive Care May Need MRI Brain if no improvement Status: Acute Priority: High (2) Severe anemia Assessment and Plan: Anemia of CKD Vs Blood Loss Vs Hemolysis Transfuse 2 More Units of PRBCs Anemia Work Up Hematology Consult Monitor H/H Status: Acute Priority: High (3) Hyperkalemia Assessment and Plan: Monitor BMP Status: Resolved Priority: High (4) Acute on chronic renal failure Assessment and Plan: IVF Renal Ultrasound PTH Nephrology Consult Repeat BMP Status: Acute Priority: High (5) New onset a-fib Assessment and Plan: VS Chronic Control Rate TTE TSH Cardiology Consult Status: Acute Priority: Medium (6) Thrombocytosis Assessment and Plan: Most Likely Reactive to severe Anemia Status: Acute Priority: Low
--- NOTE | 2018-03-25 09:20 | CP.PCM.PN ---
Subjective - Date & Time of Evaluation Date of Evaluation: 03/23/18 Time of Evaluation: 13:10 - Subjective Subjective: Seen and examined at the bed side. Patient states feeling better. Hgb improved from 5.0 to 6.4 mg/dl after 2 units of PRBCs. PAtient will be transfused 2 Units of PRBCs. Denies chest pain or sob. Objective - Vital Signs/Intake and Output Vital Signs (last 24 hours): Temp Pulse Resp BP Pulse Ox 99.0 F 96 H 18 117/69 99 03/25/18 08:00 03/25/18 08:16 03/25/18 08:00 03/25/18 08:16 03/25/18 08:00 Intake and Output: 03/25/18 03/25/18 06:59 18:59 Intake Total 660 Output Total 190 Balance 470 - Medications Medications: Current Medications Acetaminophen (Tylenol 325mg Tab) 650 mg PO Q6H PRN PRN Reason: Fever >100.4 F Finasteride (Proscar) 5 mg PO DAILY [facility] Last Admin: 03/25/18 08:16 Dose: 5 mg Fluticasone Propionate (Flonase) 1 spr [place]ERIA DAILY PRN PRN Reason: Nasal congestion Iron Sucrose 200 mg/ Sodium (Chloride) 110 mls @ 110 mls/hr IVPB DAILY [facility] Stop: 03/28/18 21:31 Last Admin: 03/24/18 12:10 Dose: 110 mls/hr Metoprolol Succinate (Toprol Xl) 25 mg PO DAILY [facility] Last Admin: 03/25/18 08:16 Dose: 25 mg Ondansetron HCl (Zofran Inj) 4 mg IVP Q6H PRN PRN Reason: Nausea/Vomiting Pantoprazole Sodium (Protonix Ec Tab) 40 mg PO DAILY [facility] Last Admin: 03/25/18 08:16 Dose: 40 mg Tamsulosin HCl (Flomax) 0.4 mg PO QPM [facility] Last Admin: 03/24/18 18:21 Dose: 0.4 mg - Labs Labs: 03/25/18 06:31 03/25/18 06:31 PT 12.3 Seconds (9.8-13.1) 03/21/18 18:37 INR 1.1 (0.9-1.2) 03/21/18 18:37 APTT 18.6 Seconds (25.6-37.1) L 07/23/18 18:37 - Constitutional Appears: Well, No Acute Distress - Head Exam Head Exam: ATRAUMATIC, NORMAL INSPECTION, NORMOCEPHALIC - Eye Exam Eye Exam: EOMI, Normal appearance, PERRL Pupil Exam: NORMAL ACCOMODATION, PERRL - ENT Exam ENT Exam: Mucous Membranes Moist, Normal Exam - Neck Exam Neck Exam: Full ROM, Normal Inspection. absent: Lymphadenopathy - Respiratory Exam Respiratory Exam: Clear to Ausculation Bilateral, NORMAL BREATHING PATTERN - Cardiovascular Exam Cardiovascular Exam: REGULAR RHYTHM, +S1, +S2. absent: Murmur - GI/Abdominal Exam GI & Abdominal Exam: Soft, Normal Bowel Sounds. absent: Tenderness - Extremities Exam Extremities Exam: Full ROM, Normal Capillary Refill, Normal Inspection. absent : Joint Swelling, Pedal Edema - Back Exam Back Exam: NORMAL INSPECTION - Neurological Exam Neurological Exam: Alert, Awake, CN II-XII Intact, Normal Gait, Oriented x3 - Psychiatric Exam Psychiatric exam: Normal Affect, Normal Mood - Skin Skin Exam: Dry, Intact, Normal Color, Warm Assessment and Plan (1) Altered mental status Assessment & Plan: Syncope/Multiple Fall ? Etiology Metabolic Encephalopathy Supportive Care May Need MRI Brain if no improvement Status: Acute Priority: High (2) Severe anemia Assessment and Plan: Anemia of CKD Vs Blood Loss Vs Hemolysis Transfuse 2 Units of PRBCs Anemia Work Up Hematology Consult Monitor H/H Status: Acute Priority: High (3) Hyperkalemia-resolved Assessment and Plan: Monitor BMP Status: Resolved Priority: High (4) Acute on chronic renal failure Assessment and Plan: IVF Renal Ultrasound PTH Nephrology Consult Repeat BMP Status: Acute Priority: High (5) New onset a-fib Assessment and Plan: VS Chronic Control Rate TTE TSH Cardiology Consult Status: Acute Priority: Medium (6) Thrombocytosis Assessment and Plan: Most Likely Reactive to severe Anemia Status: Resolved
--- NOTE | 2018-03-25 09:21 | CP.PCM.PN ---
Subjective - Date & Time of Evaluation Date of Evaluation: 03/24/18 Time of Evaluation: 14:15 - Subjective Subjective: No New complaint. Despite Transfusion of 4 Units of PRBCs, H/H stayed 7.7/23.3. Objective - Vital Signs/Intake and Output Vital Signs (last 24 hours): Temp Pulse Resp BP Pulse Ox 99.0 F 96 H 18 117/69 99 03/25/18 08:00 03/25/18 08:16 03/25/18 08:00 03/25/18 08:16 03/25/18 08:00 Intake and Output: 03/25/18 03/25/18 06:59 18:59 Intake Total 660 Output Total 190 Balance 470 - Medications Medications: Current Medications Acetaminophen (Tylenol 325mg Tab) 650 mg PO Q6H PRN PRN Reason: Fever >100.4 F Finasteride (Proscar) 5 mg PO DAILY [facility] Last Admin: 03/25/18 08:16 Dose: 5 mg Fluticasone Propionate (Flonase) 1 spr [place] DAILY PRN PRN Reason: Nasal congestion Iron Sucrose 200 mg/ Sodium (Chloride) 110 mls @ 110 mls/hr IVPB DAILY [facility] Stop: 03/28/18 21:31 Last Admin: 03/24/18 12:10 Dose: 110 mls/hr Metoprolol Succinate (Toprol Xl) 25 mg PO DAILY [facility] Last Admin: 03/25/18 08:16 Dose: 25 mg Ondansetron HCl (Zofran Inj) 4 mg IVP Q6H PRN PRN Reason: Nausea/Vomiting Pantoprazole Sodium (Protonix Ec Tab) 40 mg PO DAILY [facility] Last Admin: 03/25/18 08:16 Dose: 40 mg Tamsulosin HCl (Flomax) 0.4 mg PO QPM [facility] Last Admin: 03/24/18 18:21 Dose: 0.4 mg - Labs Labs: 03/25/18 06:31 03/25/18 06:31 PT 12.3 Seconds (9.8-13.1) 03/21/18 18:37 INR 1.1 (0.9-1.2) 03/21/18 18:37 APTT 18.6 Seconds (25.6-37.1) L 03/21/18 18:37 - Constitutional Appears: Well, No Acute Distress - Head Exam Head Exam: ATRAUMATIC, NORMAL INSPECTION, NORMOCEPHALIC - Eye Exam Eye Exam: EOMI, Normal appearance, PERRL Pupil Exam: NORMAL ACCOMODATION, PERRL - ENT Exam ENT Exam: Mucous Membranes Moist, Normal Exam - Neck Exam Neck Exam: Full ROM, Normal Inspection. absent: Lymphadenopathy - Respiratory Exam Respiratory Exam: Clear to Ausculation Bilateral, NORMAL BREATHING PATTERN - Cardiovascular Exam Cardiovascular Exam: REGULAR RHYTHM, +S1, +S2. absent: Murmur - GI/Abdominal Exam GI & Abdominal Exam: Soft, Normal Bowel Sounds. absent: Tenderness - Extremities Exam Extremities Exam: Full ROM, Normal Capillary Refill, Normal Inspection. absent : Joint Swelling, Pedal Edema - Back Exam Back Exam: NORMAL INSPECTION - Neurological Exam Neurological Exam: Alert, Awake, CN II-XII Intact, Normal Gait, Oriented x3 - Psychiatric Exam Psychiatric exam: Normal Affect, Normal Mood - Skin Skin Exam: Dry, Intact, Normal Color, Warm Assessment and Plan (1) Altered mental status Assessment & Plan: Syncope/Multiple Fall ? Etiology Metabolic Encephalopathy Supportive Care May Need MRI Brain if no improvement Status: Acute Priority: High (2) Severe anemia Assessment and Plan: Anemia of CKD Vs Blood Loss Vs Hemolysis Transfuse as Needed Anemia Work Up Hematology Consult Monitor H/H Status: Acute Priority: High (3) Hyperkalemia-resolved Assessment and Plan: Monitor BMP Status: Resolved Priority: High (4) Acute on chronic renal failure Assessment and Plan: IVF Renal Ultrasound PTH Nephrology Consult Repeat BMP Status: Acute Priority: High (5) New onset a-fib Assessment and Plan: VS Chronic Control Rate TTE TSH Cardiology Consult Status: Acute Priority: Medium (6) Thrombocytosis Assessment and Plan: Most Likely Reactive to severe Anemia Status: Resolved
--- NOTE | 2018-03-25 09:39 | CP.PCM.PN ---
Subjective - Date & Time of Evaluation Date of Evaluation: 03/25/18 Time of Evaluation: 09:36 - Subjective Subjective: patient sitting up awake and conscious Patient receiving his breakfast and eating normal No nausea no vomiting Vital sign noted Objective - Vital Signs/Intake and Output Vital Signs (last 24 hours): Temp Pulse Resp BP Pulse Ox 99.0 F 96 H 18 117/69 99 03/25/18 08:00 03/25/18 08:16 03/25/18 08:00 03/25/18 08:16 03/25/18 08:00 Intake and Output: 03/25/18 03/25/18 06:59 18:59 Intake Total 660 Output Total 190 Balance 470 - Medications Medications: Current Medications Acetaminophen (Tylenol 325mg Tab) 650 mg PO Q6H PRN PRN Reason: Fever >100.4 F Finasteride (Proscar) 5 mg PO DAILY [facility] Last Admin: 03/25/18 08:16 Dose: 5 mg Fluticasone Propionate (Flonase) 1 spr [place] DAILY PRN PRN Reason: Nasal congestion Iron Sucrose 200 mg/ Sodium (Chloride) 110 mls @ 110 mls/hr IVPB DAILY [facility] Stop: 03/28/18 21:31 Last Admin: 03/24/18 12:10 Dose: 110 mls/hr Metoprolol Succinate (Toprol Xl) 25 mg PO DAILY [facility] Last Admin: 03/25/18 08:16 Dose: 25 mg Ondansetron HCl (Zofran Inj) 4 mg IVP Q6H PRN PRN Reason: Nausea/Vomiting Pantoprazole Sodium (Protonix Ec Tab) 40 mg PO DAILY [facility] Last Admin: 03/25/18 08:16 Dose: 40 mg Tamsulosin HCl (Flomax) 0.4 mg PO QPM [facility] Last Admin: 03/24/18 18:21 Dose: 0.4 mg - Labs Labs: 03/25/18 06:31 03/25/18 06:31 PT 12.3 Seconds (9.8-13.1) 03/21/18 18:37 INR 1.1 (0.9-1.2) 03/21/18 18:37 APTT 18.6 Seconds (25.6-37.1) L 03/21/18 18:37 - Constitutional Appears: No Acute Distress - Eye Exam Eye Exam: Conjunctival injection - ENT Exam ENT Exam: absent: Mucous Membranes Moist - Neck Exam Neck Exam: absent: Lymphadenopathy - Respiratory Exam Respiratory Exam: NORMAL BREATHING PATTERN. absent: Chest Wall Tenderness - Cardiovascular Exam Cardiovascular Exam: absent: Gallop, JVD, Rubs - GI/Abdominal Exam GI & Abdominal Exam: Soft, Normal Bowel Sounds - Extremities Exam Extremities Exam: absent: Calf Tenderness - Back Exam Back Exam: absent: CVA tenderness (L), CVA tenderness (R) - Neurological Exam Neurological Exam: Alert - Psychiatric Exam Psychiatric exam: Normal Affect - Skin Skin Exam: absent: Cyanosis Assessment and Plan (1) Hyperkalemia Status: Acute (2) Acute renal failure (ARF) Assessment & Plan: acute kidney injury superimposed most likely on chronic kidney disease although I do not have baseline of serum creatinine. 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 Proteinuria in the range of 4100 mg consistent with nephrotic syndrome. Hyponatremia improving serum sodium came up to 133. Patient receiving normal saline was cut down to 30 mL/h. My recommendation Cut down normal saline to 50 mL/h for the next 24 hours. Patient needs kidney biopsy when he cleared by the cardiology perhaps by Wednesday to be scheduled Proteinuria in the range of 4100 mg consistent with nephrotic syndrome. PTH still pending Order hepatitis C and hepatitis B. Status: Acute
[2018-03-25 10:47] LABS: INR 1.3 (0.9-1.2); PARTIAL THROMBOPLASTIN TIME 25.7 Seconds (25.6-37.1); PROTHROMBIN TIME 14.4 Seconds (9.8-13.1)
--- NOTE | 2018-03-25 12:30 | CP.PCM.PN ---
Subjective - Date & Time of Evaluation Date of Evaluation: 03/24/18 Time of Evaluation: 13:00 - Subjective Subjective: Appears comfortable Objective - Vital Signs/Intake and Output Vital Signs (last 24 hours): Temp Pulse Resp BP Pulse Ox 99.0 F 96 H 18 117/69 99 03/25/18 08:00 03/25/18 08:16 03/25/18 08:00 03/25/18 08:16 03/25/18 08:00 Intake and Output: 03/25/18 03/25/18 06:59 18:59 Intake Total 660 240 Output Total 190 Balance 470 240 - Medications Medications: Current Medications Acetaminophen (Tylenol 325mg Tab) 650 mg PO Q6H PRN PRN Reason: Fever >100.4 F Finasteride (Proscar) 5 mg PO DAILY [facility] Last Admin: 03/25/18 08:16 Dose: 5 mg Fluticasone Propionate (Flonase) 1 spr [place] DAILY PRN PRN Reason: Nasal congestion Iron Sucrose 200 mg/ Sodium (Chloride) 110 mls @ 110 mls/hr IVPB DAILY [facility] Stop: 03/28/18 21:31 Last Admin: 03/25/18 11:15 Dose: 110 mls/hr Metoprolol Succinate (Toprol Xl) 25 mg PO DAILY [facility] Last Admin: 03/25/18 08:16 Dose: 25 mg Ondansetron HCl (Zofran Inj) 4 mg IVP Q6H PRN PRN Reason: Nausea/Vomiting Pantoprazole Sodium (Protonix Ec Tab) 40 mg PO DAILY [facility] Last Admin: 03/25/18 08:16 Dose: 40 mg Tamsulosin HCl (Flomax) 0.4 mg PO QPM [facility] Last Admin: 03/24/18 18:21 Dose: 0.4 mg - Labs Labs: 03/25/18 06:31 03/25/18 06:31 PT 14.4 Seconds (9.8-13.1) H 03/25/18 10:26 INR 1.3 (0.9-1.2) H 03/25/18 10:26 APTT 25.7 Seconds (25.6-37.1) 03/25/18 10:26 - Head Exam Head Exam: ATRAUMATIC - Eye Exam Eye Exam: Normal appearance - ENT Exam ENT Exam: Mucous Membranes Dry - Respiratory Exam Respiratory Exam: NORMAL BREATHING PATTERN - Cardiovascular Exam Cardiovascular Exam: +S1, +S2 - GI/Abdominal Exam GI & Abdominal Exam: Normal Bowel Sounds Assessment and Plan (1) Anemia Assessment & Plan: iron deficiency on IV iron ? CKD f/u FOBT Status: Acute (2) Thrombocytosis Assessment & Plan: reactive to iron deficiency Status: Acute
--- NOTE | 2018-03-25 12:32 | CP.PCM.PN ---
Subjective - Date & Time of Evaluation Date of Evaluation: 03/25/18 Time of Evaluation: 10:00 - Subjective Subjective: No complaints, seen eating. Objective - Vital Signs/Intake and Output Vital Signs (last 24 hours): Temp Pulse Resp BP Pulse Ox 99.0 F 96 H 18 117/69 99 03/25/18 08:00 03/25/18 08:16 03/25/18 08:00 03/25/18 08:16 03/25/18 08:00 Intake and Output: 03/25/18 03/25/18 06:59 18:59 Intake Total 660 240 Output Total 190 Balance 470 240 - Medications Medications: Current Medications Acetaminophen (Tylenol 325mg Tab) 650 mg PO Q6H PRN PRN Reason: Fever >100.4 F Finasteride (Proscar) 5 mg PO DAILY [facility] Last Admin: 03/25/18 08:16 Dose: 5 mg Fluticasone Propionate (Flonase) 1 spr [place]IA DAILY PRN PRN Reason: Nasal congestion Iron Sucrose 200 mg/ Sodium (Chloride) 110 mls @ 110 mls/hr IVPB DAILY [facility] Stop: 03/28/18 21:31 Last Admin: 03/25/18 11:15 Dose: 110 mls/hr Metoprolol Succinate (Toprol Xl) 25 mg PO DAILY [facility] Last Admin: 03/25/18 08:16 Dose: 25 mg Ondansetron HCl (Zofran Inj) 4 mg IVP Q6H PRN PRN Reason: Nausea/Vomiting Pantoprazole Sodium (Protonix Ec Tab) 40 mg PO DAILY [facility] Last Admin: 03/25/18 08:16 Dose: 40 mg Tamsulosin HCl (Flomax) 0.4 mg PO QPM [facility] Last Admin: 03/24/18 18:21 Dose: 0.4 mg - Labs Labs: 03/25/18 06:31 03/25/18 06:31 PT 14.4 Seconds (9.8-13.1) H 03/25/18 10:26 INR 1.3 (0.9-1.2) H 03/25/18 10:26 APTT 25.7 Seconds (25.6-37.1) 03/25/18 10:26 - Head Exam Head Exam: ATRAUMATIC - Eye Exam Eye Exam: Normal appearance - ENT Exam ENT Exam: Mucous Membranes Dry - Respiratory Exam Respiratory Exam: NORMAL BREATHING PATTERN - Cardiovascular Exam Cardiovascular Exam: +S1, +S2 - GI/Abdominal Exam GI & Abdominal Exam: Normal Bowel Sounds Assessment and Plan (1) Anemia Assessment & Plan: iron deficiency on IV iron ?CKD f/u fobt Status: Acute (2) Thrombocytosis Assessment & Plan: reactive to iron deficiency Status: Acute
[2018-03-25 16:19] LABS: HEPATITIS B SURFACE AG Negative (NEGATIVE)
[2018-03-25 16:36] LABS: HEPATITIS C ANTIBODY NEGATIVE (NEGATIVE)
--- NOTE | 2018-03-25 19:16 | CP.PCM.PN ---
Subjective - Date & Time of Evaluation Date of Evaluation: 03/25/18 Time of Evaluation: 19:16 - Subjective Subjective: NOT RESPONDING TO QUESTIONS. STABLE HEMODYNAMICALLY. NO TACHYARRYTHMIA ON TELE. NO EVIDENCE OF SOB. Objective - Vital Signs/Intake and Output Vital Signs (last 24 hours): Temp Pulse Resp BP Pulse Ox 98.5 F 100 H 24 119/68 100 03/25/18 16:29 03/25/18 16:29 03/25/18 16:29 03/25/18 16:29 03/25/18 16:29 Intake and Output: 03/25/18 03/26/18 18:59 06:59 Intake Total 1020 Output Total 200 Balance 820 - Medications Medications: Current Medications Acetaminophen (Tylenol 325mg Tab) 650 mg PO Q6H PRN PRN Reason: Fever >100.4 F Finasteride (Proscar) 5 mg PO DAILY [facility] Last Admin: 03/25/18 08:16 Dose: 5 mg Fluticasone Propionate (Flonase) 1 spr [place]ERIA DAILY PRN PRN Reason: Nasal congestion Iron Sucrose 200 mg/ Sodium (Chloride) 110 mls @ 110 mls/hr IVPB DAILY [facility] Stop: 03/28/18 21:31 Last Admin: 03/25/18 11:15 Dose: 110 mls/hr Metoprolol Succinate (Toprol Xl) 25 mg PO DAILY [facility] Last Admin: 03/25/18 08:16 Dose: 25 mg Ondansetron HCl (Zofran Inj) 4 mg IVP Q6H PRN PRN Reason: Nausea/Vomiting Pantoprazole Sodium (Protonix Ec Tab) 40 mg PO DAILY [facility] Last Admin: 03/25/18 08:16 Dose: 40 mg Tamsulosin HCl (Flomax) 0.4 mg PO QPM [facility] Last Admin: 03/25/18 17:26 Dose: 0.4 mg - Labs Labs: 03/25/18 06:31 03/25/18 06:31 PT 14.4 Seconds (9.8-13.1) H 03/25/18 10:26 INR 1.3 (0.9-1.2) H 03/25/18 10:26 APTT 25.7 Seconds (25.6-37.1) 03/25/18 10:26 - Constitutional Appears: Non-toxic - Head Exam Head Exam: ATRAUMATIC, NORMAL INSPECTION, NORMOCEPHALIC - Eye Exam Eye Exam: EOMI, Normal appearance, PERRL. absent: Conjunctival injection, Nystagmus, Periorbital swelling, Periorbital tenderness, Scleral icterus Pupil Exam: NORMAL ACCOMODATION, PERRL - ENT Exam ENT Exam: Mucous Membranes Moist, Normal Exam. absent: Mucous Membranes Dry, Normal External Ear Exam, Normal Oropharynx, TM's Normal Bilaterally - Neck Exam Neck Exam: Full ROM, Normal Inspection. absent: Lymphadenopathy - Respiratory Exam Respiratory Exam: Clear to Ausculation Bilateral, NORMAL BREATHING PATTERN. absent: Accessory Muscle Use, Chest Wall Tenderness, Decreased Breath Sounds, Prolonged Expiratory Phase, Rales, Rhonchi, Wheezes, Respiratory Distress, Stridor - Cardiovascular Exam Cardiovascular Exam: Irregular Rhythm, +S1, +S2, Murmur. absent: Bradycardia, Tachycardia, Clicks, Diastolic murmur, Gallop, REGULAR RHYTHM, JVD, RRR, Rubs, + S4 - GI/Abdominal Exam GI & Abdominal Exam: Soft, Normal Bowel Sounds. absent: Bruit, Distended, Firm , Guarding, Rigid, Tenderness, Diminished Bowel Sounds, Hernia, Hyperactive Bowel Sounds, Hypoactive Bowel Sounds, Organomegaly, Pulsatile Mass, Rebound, Mass - Rectal Exam Rectal Exam: Deferred - Extremities Exam Extremities Exam: Full ROM, Normal Capillary Refill, Normal Inspection. absent : Joint Swelling, Pedal Edema - Back Exam Back Exam: NORMAL INSPECTION. absent: CVA tenderness (L), CVA tenderness (R), Full ROM, muscle spasm, paraspinal tenderness, rash noted, tenderness, vertebral tenderness - Neurological Exam Neurological Exam: Alert, Awake, CN II-XII Intact, Oriented x3 - Psychiatric Exam Psychiatric exam: Agitated, Flat Affect - Skin Skin Exam: Dry, Intact, Normal Color, Warm. absent: Abrasion, Cyanosis, Diaphoretic, Erythema, Mottled, Pallor, Pallor, Petechiae, Rash, Urticaria, Vesicles Assessment and Plan (1) Acute renal failure (ARF) Status: Acute (2) Enlarged RV (right ventricle) Status: Acute (3) Atrial enlargement, bilateral Status: Acute (4) A-fib Status: Acute - Assessment and Plan (Free Text) Plan: PT SCHEDULED FOR RENAL BX. PT IS LOW RISK FOR RENAL BX GIVEN LACK OF SYMPTOMS, NML EF AND STABLE VITALS. CONSDIER V/Q, LE DUPLEX.
[2018-03-26] MEDS: Pantoprazole 40 mg EC Tab PO SCH (09:02)
[2018-03-26] MEDS: Metoprolol Succinate 25 mg XL Tab PO SCH (09:02)
--- NOTE | 2018-03-26 11:07 | CP.PCM.PN ---
Subjective - Date & Time of Evaluation Date of Evaluation: 03/25/18 Time of Evaluation: 15:00 - Subjective Subjective: Seen and examined at the bed side. Hemodynamically stable. Continue to have Azotemia Objective - Vital Signs/Intake and Output Vital Signs (last 24 hours): Temp Pulse Resp BP Pulse Ox 98.5 F 100 H 18 108/62 100 03/26/18 08:00 03/26/18 09:02 03/26/18 08:00 03/26/18 09:02 03/26/18 08:00 - Medications Medications: Current Medications Acetaminophen (Tylenol 325mg Tab) 650 mg PO Q6H PRN PRN Reason: Fever >100.4 F Epoetin Charles (Procrit) 10,000 unit SC TTS [facility] Finasteride (Proscar) 5 mg PO DAILY [facility] Last Admin: 03/26/18 09:02 Dose: 5 mg Fluticasone Propionate (Flonase) 1 spr [place]ERIA DAILY PRN PRN Reason: Nasal congestion Iron Sucrose 200 mg/ Sodium (Chloride) 110 mls @ 110 mls/hr IVPB DAILY [facility] Stop: 03/28/18 21:31 Last Admin: 03/26/18 09:02 Dose: 110 mls/hr Metoprolol Succinate (Toprol Xl) 25 mg PO DAILY [facility] Last Admin: 03/26/18 09:02 Dose: 25 mg Ondansetron HCl (Zofran Inj) 4 mg IVP Q6H PRN PRN Reason: Nausea/Vomiting Pantoprazole Sodium (Protonix Ec Tab) 40 mg PO DAILY [facility] Last Admin: 03/26/18 09:02 Dose: 40 mg Sodium Bicarbonate (Sodium Bicarbonate Tab) 1,300 mg PO BID [facility] Tamsulosin HCl (Flomax) 0.4 mg PO QPM [facility] Last Admin: 03/25/18 17:26 Dose: 0.4 mg Vitamin B Complex/Vit C/Folic Acid (Nephro-Jj) 1 tab PO DAILY [facility] - Labs Labs: 03/25/18 06:31 03/25/18 06:31 PT 14.4 Seconds (9.8-13.1) H 03/25/18 10:26 INR 1.3 (0.9-1.2) H 03/25/18 10:26 APTT 25.7 Seconds (25.6-37.1) 03/25/18 10:26 - Constitutional Appears: Well, No Acute Distress - Head Exam Head Exam: ATRAUMATIC, NORMAL INSPECTION, NORMOCEPHALIC - Eye Exam Eye Exam: EOMI, Normal appearance, PERRL Pupil Exam: NORMAL ACCOMODATION, PERRL - ENT Exam ENT Exam: Mucous Membranes Moist, Normal Exam - Neck Exam Neck Exam: Full ROM, Normal Inspection. absent: Lymphadenopathy - Respiratory Exam Respiratory Exam: Clear to Ausculation Bilateral, NORMAL BREATHING PATTERN - Cardiovascular Exam Cardiovascular Exam: REGULAR RHYTHM, +S1, +S2. absent: Murmur - GI/Abdominal Exam GI & Abdominal Exam: Soft, Normal Bowel Sounds. absent: Tenderness - Extremities Exam Extremities Exam: Full ROM, Normal Capillary Refill, Normal Inspection. absent : Joint Swelling, Pedal Edema - Back Exam Back Exam: NORMAL INSPECTION - Neurological Exam Neurological Exam: Alert, Awake, CN II-XII Intact, Normal Gait, Oriented x3 - Psychiatric Exam Psychiatric exam: Normal Affect, Normal Mood - Skin Skin Exam: Dry, Intact, Normal Color, Warm Assessment and Plan (1) Altered mental status Assessment & Plan: Continue to Monitor Status: Resolved (2) Severe anemia Assessment & Plan: No New Complaint. H/H continue to be Low and on Iron Infusion. Monitor H/H Status: Acute (3) Hyperkalemia Assessment & Plan: Monitor Status: Resolved (4) Acute on chronic renal failure Status: Acute (5) New onset a-fib Status: Acute (6) Thrombocytosis Status: Acute - Assessment and Plan (Free Text) Plan: Continue Supportive Care Iron Infusion Nephrology recommended Kidney Biopsy Systems Coordinator on Board CBC CMP
[2018-03-26 11:12] LABS: IRON 501 ug/dL (49-181)
[2018-03-26 11:21] LABS: % IRON SATURATION 284 % (20-55); TOTAL IRON BINDING CAPACITY 177 ug/dL (250-450)
[2018-03-26] MEDS: EPOETIN ALFA 10,000 UNIT/ML ML SC SCH (13:44)
[2018-03-26] MEDS: Multivitamin Vitamin B Complex (Nephro-Vite) Tab PO SCH (13:44)
--- NOTE | 2018-03-26 17:12 | CP.PCM.PN ---
Subjective - Date & Time of Evaluation Date of Evaluation: 03/26/18 Time of Evaluation: 17:09 - Subjective Subjective: Follow up Nephrology Consultation Note Assessment: Stable Acute Kidney Injury (N17.9) etiology unclear. has microscopic hematuria and proteinuria r/o GN Hypertensive Chronic Kidney Disease (I12.9) ? CKD Anemia (D64.9), Hyperphosphatemia (E83.39), Secondary Hyperparathyroidism (E21.1 ), HTN (I12.9) BPH acidosis Plan No acute need for renal replacement therapy at this time. Hypertension control with meds as ordered. Patient not on ACEI/ARB due to recent QUINTON Monitor Input/Output, daily weights and renal function with basic metabolic panel started epogen sodium bicarb and nephrovite. on IV iron consider for kidney biopsy check urine culture transfuse to Hb 10 prior to kidney biopsy asked RN to check bladder scan to r/o retention work up as ordered Dose meds/antibiotics for reduced GFR. Avoid fleets enema/magnesium based laxatives. Avoid nephrotoxins/NSAIDs/ iodinated contrast (unless needed emergently) Glycemic control Further work up for as per primary team Thanks for allowing me to participate in care of your patient. Will follow patient with you. Please call if any Qs Dr Dominguez Nix Office: [phone] Subjective: Noted events overnight. Patients feels okay. Denies chest pain, palpitation, shortness of breath, leg swelling. All other negative reports of urine incontinence Physical Examination: General Appearance: Comfortable, in no acute respiratory distress, co-operative . Vitals reviewed and noted as below Head; Atraumatic, normocephalic ENT: no ulcers no thrush. Tongue is midline. Oropharynx: no rash or ulcers. EYES: Pupils are equal, round and reactive to light accommodation. Eye muscles and extraocular movement intact. Sclera is anicteric. Neck; supple no lymphadenopathy, no thyromegaly or bruit Lungs: Normal respiratory rate/effort. Breath sounds bilateral equal and clear Heart: Normal rate. s1s2 normal. No rub or gallop. Extremities: no edema. No varicose veins Neurological: Patient is alert, awake and oriented to person, place and time. No focal deficit. Strength bilateral appropriate and equal Skin: Warm and dry. Normal turgor. No rash. Palpitation: Normal elasticity for age Abdomen: Abdomen is soft. Bowel sounds +. There is no abdominal tenderness, no guarding/rigidity no organomegaly Psych: lackl insight and normal affect/mood MSK: no joint tenderness or swelling. Digits and nails normal, no deformity : kidney or bladder not palpable Labs/imaging reviewed. Past medical history, past surgical history, family history, social history, allergy reviewed and noted as below Family hx: no hx of CKD. Rest non-contributory Objective - Vital Signs/Intake and Output Vital Signs (last 24 hours): Temp Pulse Resp BP Pulse Ox 97.5 F L 95 H 20 119/78 98 03/26/18 16:00 03/26/18 16:00 03/26/18 16:00 03/26/18 16:00 03/26/18 16:00 - Medications Medications: Current Medications Acetaminophen (Tylenol 325mg Tab) 650 mg PO Q6H PRN PRN Reason: Fever >100.4 F Epoetin Charles (Procrit) 10,000 unit SC TTS [facility] Last Admin: 03/26/18 13:44 Dose: 10,000 unit Finasteride (Proscar) 5 mg PO DAILY [facility] Last Admin: 03/26/18 09:02 Dose: 5 mg Fluticasone Propionate (Flonase) 1 spr [facility] DAILY PRN PRN Reason: Nasal congestion Iron Sucrose 200 mg/ Sodium (Chloride) 110 mls @ 110 mls/hr IVPB DAILY [facility] Stop: 03/28/18 21:31 Last Admin: 03/26/18 09:02 Dose: 110 mls/hr Metoprolol Succinate (Toprol Xl) 25 mg PO DAILY [facility] Last Admin: 03/26/18 09:02 Dose: 25 mg Ondansetron HCl (Zofran Inj) 4 mg IVP Q6H PRN PRN Reason: Nausea/Vomiting Pantoprazole Sodium (Protonix Ec Tab) 40 mg PO DAILY [facility] Last Admin: 03/26/18 09:02 Dose: 40 mg Sodium Bicarbonate (Sodium Bicarbonate Tab) 1,300 mg PO BID [facility] Last Admin: 03/26/18 13:44 Dose: 1,300 mg Tamsulosin HCl (Flomax) 0.4 mg PO QPM [facility] Last Admin: 03/25/18 17:26 Dose: 0.4 mg Vitamin B Complex/Vit C/Folic Acid (Nephro-Jj) 1 tab PO DAILY [facility] Last Admin: 03/26/18 13:44 Dose: 1 tab - Labs Labs: 03/25/18 06:31 03/25/18 06:31 PT 14.4 Seconds (9.8-13.1) H 03/25/18 10:26 INR 1.3 (0.9-1.2) H 03/25/18 10:26 APTT 25.7 Seconds (25.6-37.1) 03/25/18 10:26
--- NOTE | 2018-03-26 20:14 | CP.PCM.PN ---
Subjective - Date & Time of Evaluation Date of Evaluation: 03/26/18 Time of Evaluation: 20:05 - Subjective Subjective: Seen and examined at the bed side. Continued Azotemia, Microscopic hematuria and proteinuria. Objective - Vital Signs/Intake and Output Vital Signs (last 24 hours): Temp Pulse Resp BP Pulse Ox 98 F 108 H 18 119/68 98 03/26/18 20:08 03/26/18 20:08 03/26/18 20:08 03/26/18 20:08 03/26/18 20:08 Intake and Output: 03/26/18 03/27/18 18:59 06:59 Intake Total 800 Balance 800 - Medications Medications: Current Medications Acetaminophen (Tylenol 325mg Tab) 650 mg PO Q6H PRN PRN Reason: Fever >100.4 F Epoetin Charles (Procrit) 10,000 unit SC TTS [facility] Last Admin: 03/26/18 13:44 Dose: 10,000 unit Finasteride (Proscar) 5 mg PO DAILY [facility] Last Admin: 03/26/18 09:02 Dose: 5 mg Fluticasone Propionate (Flonase) 1 spr [place] DAILY PRN PRN Reason: Nasal congestion Iron Sucrose 200 mg/ Sodium (Chloride) 110 mls @ 110 mls/hr IVPB DAILY [facility] Stop: 03/28/18 21:31 Last Admin: 03/26/18 09:02 Dose: 110 mls/hr Metoprolol Succinate (Toprol Xl) 25 mg PO DAILY [facility] Last Admin: 03/26/18 09:02 Dose: 25 mg Ondansetron HCl (Zofran Inj) 4 mg IVP Q6H PRN PRN Reason: Nausea/Vomiting Pantoprazole Sodium (Protonix Ec Tab) 40 mg PO DAILY [facility] Last Admin: 03/26/18 09:02 Dose: 40 mg Sodium Bicarbonate (Sodium Bicarbonate Tab) 1,300 mg PO BID [facility] Last Admin: 03/26/18 17:46 Dose: 1,300 mg Tamsulosin HCl (Flomax) 0.4 mg PO QPM [facility] Last Admin: 03/26/18 17:46 Dose: 0.4 mg Tobramycin/Dexamethasone (Tobradex 0.3%-0.1% Opht Oint) 1 appl OD TID [facility] Vitamin B Complex/Vit C/Folic Acid (Nephro-Jj) 1 tab PO DAILY [facility] Last Admin: 03/26/18 13:44 Dose: 1 tab - Labs Labs: 03/25/18 06:31 03/25/18 06:31 PT 14.4 Seconds (9.8-13.1) H 03/25/18 10:26 INR 1.3 (0.9-1.2) H 03/25/18 10:26 APTT 25.7 Seconds (25.6-37.1) 03/25/18 10:26 - Constitutional Appears: Well, No Acute Distress - Head Exam Head Exam: ATRAUMATIC, NORMAL INSPECTION, NORMOCEPHALIC - Eye Exam Eye Exam: EOMI, PERRL Pupil Exam: NORMAL ACCOMODATION, PERRL Additional comments: B/L Eye Redness and Purulent discharge. - ENT Exam ENT Exam: Mucous Membranes Moist, Normal Exam - Neck Exam Neck Exam: Full ROM, Normal Inspection. absent: Lymphadenopathy - Respiratory Exam Respiratory Exam: Clear to Ausculation Bilateral, NORMAL BREATHING PATTERN - Cardiovascular Exam Cardiovascular Exam: REGULAR RHYTHM, +S1, +S2. absent: Murmur - GI/Abdominal Exam GI & Abdominal Exam: Soft, Normal Bowel Sounds. absent: Tenderness - Extremities Exam Extremities Exam: Full ROM, Normal Capillary Refill, Normal Inspection. absent : Joint Swelling, Pedal Edema - Back Exam Back Exam: NORMAL INSPECTION - Neurological Exam Neurological Exam: Alert, Awake, CN II-XII Intact, Normal Gait, Oriented x3 - Psychiatric Exam Psychiatric exam: Normal Affect, Normal Mood - Skin Skin Exam: Dry, Intact, Normal Color, Warm Assessment and Plan (1) Altered mental status Assessment & Plan: Continue to Monitor Status: Resolved (2) Severe anemia S/P 4 Units of PRBCs Assessment & Plan: No New Complaint. H/H continue to be Low and on Iron Infusion. May need Transfusion Monitor H/H Status: Acute (3) Hyperkalemia-Resolved Assessment & Plan: Monitor Status: Resolved (4) Acute on chronic renal failure Status: Acute Monitor BMP (5) New onset a-fib- Rate Controlled Status: Acute (6) Thrombocytosis Status: Acute - Assessment and Plan (Free Text) Plan: Continue Supportive Care Iron Infusion Nephrology recommended Kidney Biopsy New Order Clerk on Board CBC CMP Status: Resolved
[2018-03-27 07:18] LABS: BASO % 0.6 % (0.0-2.0); EOS # 0.3 K/uL (0.0-0.7); EOS % 5.2 % (0.0-4.0); HEMOGLOBIN 7.2 g/dL (12.0-18.0); LYMPH # 0.5 K/uL (1.0-4.3); LYMPH % 7.9 % (20.0-40.0); MEAN CORPUSCULAR HEMOGLOBIN 24.4 pg (27.0-31.0); MONO # 0.7 K/uL (0.0-0.8); MONO % 11.6 % (0.0-10.0); NEUT # 4.7 K/uL (1.8-7.0); NEUT % 74.7 % (50.0-75.0); NRBC % 0.1 % (0.0-0.0); PLATELET COUNT 420 K/uL (130-400); RBC 2.95 Mil/uL (4.40-5.90); RED CELL DISTRIBUTION WIDTH 23.2 % (11.5-14.5); WHITE BLOOD COUNT 6.3 K/uL (4.8-10.8)
[2018-03-27 07:28] LABS: CALCIUM 8.1 mg/dL (8.4-10.2)
--- NOTE | 2018-03-27 09:07 | CP.PCM.PN ---
Subjective - Date & Time of Evaluation Date of Evaluation: 03/27/18 Time of Evaluation: 08:45 - Subjective Subjective: Covering for Dr. Spence Pt layng flat in bed, breathes comfortably at 14-16 BPM Quite reluctant to talk, nods in response to any query Telemetry shows A Fib at moderate HR BP 124/74 mm Hg No evidence of vol over load Labs show azotemia slowly resolving (K+ normal) Pt stable from cardiac point of view. Objective - Vital Signs/Intake and Output Vital Signs (last 24 hours): Temp Pulse Resp BP Pulse Ox 98.2 F 104 H 18 121/73 99 03/27/18 08:00 03/27/18 08:00 03/27/18 08:00 03/27/18 08:00 03/27/18 08:00 - Medications Medications: Current Medications Acetaminophen (Tylenol 325mg Tab) 650 mg PO Q6H PRN PRN Reason: Fever >100.4 F Epoetin Charles (Procrit) 10,000 unit SC TTS [facility] Last Admin: 03/26/18 13:44 Dose: 10,000 unit Finasteride (Proscar) 5 mg PO DAILY [facility] Last Admin: 03/26/18 09:02 Dose: 5 mg Fluticasone Propionate (Flonase) 1 spr [place] DAILY PRN PRN Reason: Nasal congestion Iron Sucrose 200 mg/ Sodium (Chloride) 110 mls @ 110 mls/hr IVPB DAILY [facility] Stop: 03/28/18 21:31 Last Admin: 03/26/18 09:02 Dose: 110 mls/hr Metoprolol Succinate (Toprol Xl) 25 mg PO DAILY [facility] Last Admin: 03/26/18 09:02 Dose: 25 mg Ondansetron HCl (Zofran Inj) 4 mg IVP Q6H PRN PRN Reason: Nausea/Vomiting Pantoprazole Sodium (Protonix Ec Tab) 40 mg PO DAILY [facility] Last Admin: 03/26/18 09:02 Dose: 40 mg Sodium Bicarbonate (Sodium Bicarbonate Tab) 1,300 mg PO BID [facility] Last Admin: 03/26/18 17:46 Dose: 1,300 mg Tamsulosin HCl (Flomax) 0.4 mg PO QPM [facility] Last Admin: 03/26/18 17:46 Dose: 0.4 mg Tobramycin/Dexamethasone (Tobradex 0.3%-0.1% Opht Oint) 1 appl OD TID [facility] Vitamin B Complex/Vit C/Folic Acid (Nephro-Jj) 1 tab PO DAILY [facility] Last Admin: 03/26/18 13:44 Dose: 1 tab - Labs Labs: 03/27/18 03:45 03/27/18 03:45 PT 14.4 Seconds (9.8-13.1) H 03/25/18 10:26 INR 1.3 (0.9-1.2) H 03/25/18 10:26 APTT 25.7 Seconds (25.6-37.1) 03/25/18 10:26
[2018-03-27] MEDS ORDERED: Ergocalciferol 50,000 Intl Units Cap PO SCH (10:00)
[2018-03-27] MEDS: Tobramycin/Dexamethasone OPHT OINT OD SCH ×3 (10:06→17:32)
[2018-03-27] MEDS: Pantoprazole 40 mg EC Tab PO SCH (10:06)
[2018-03-27] MEDS: Multivitamin Vitamin B Complex (Nephro-Vite) Tab PO SCH (10:07)
[2018-03-27] MEDS: Metoprolol Succinate 25 mg XL Tab PO SCH (10:07)
[2018-03-27 11:12] LABS: BANDS 1 % (0-2); EOSINOPHIL 2 % (0-7); LYMPHOCYTE 12 % (20-50); MONOCYTE 3 % (0-10); NEUTROPHIL 82 % (42-75); TOTAL CELLS COUNTED 100
[2018-03-27 11:13] LABS: PLATELET ESTIMATE NORMAL (NORMAL)
[2018-03-27 11:19] LABS: BURR CELLS SLIGHT
[2018-03-27 11:21] LABS: HYPOCHROMIC SLIGHT
[2018-03-27 11:22] LABS: MICROCYTOSIS SLIGHT
--- NOTE | 2018-03-27 11:22 | CP.PCM.PN ---
Subjective - Date & Time of Evaluation Date of Evaluation: 03/27/18 Time of Evaluation: 11:20 - Subjective Subjective: Follow up Nephrology Consultation Note Assessment: Stable Acute Kidney Injury (N17.9) etiology unclear. has microscopic hematuria and proteinuria r/o GN Hypertensive Chronic Kidney Disease (I12.9) ? CKD Anemia (D64.9), Hyperphosphatemia (E83.39), Secondary Hyperparathyroidism (E21.1 ), HTN (I12.9) BPH acidosis Vit D def Plan No acute need for renal replacement therapy at this time. Hypertension control with meds as ordered. Patient not on ACEI/ARB due to recent QUINTON Monitor Input/Output, daily weights and renal function with basic metabolic panel started epogen sodium bicarb increased and nephrovite. on IV iron tentative plan for kidney biopsy tomorrow. called family to discuss but no answer check urine culture transfuse to Hb 9-10 prior to kidney biopsy started weekly Vit D work up as ordered Dose meds/antibiotics for reduced GFR. Avoid fleets enema/magnesium based laxatives. Avoid nephrotoxins/NSAIDs/ iodinated contrast (unless needed emergently) Glycemic control Further work up for as per primary team Thanks for allowing me to participate in care of your patient. Will follow patient with you. Please call if any Qs Dr Dominguez Nix Office: [phone] Subjective: Noted events overnight. Patients feels okay. Denies chest pain, palpitation, shortness of breath, leg swelling. All other negative reports of urine incontinence Physical Examination: General Appearance: Comfortable, in no acute respiratory distress, co-operative . Vitals reviewed and noted as below Head; Atraumatic, normocephalic ENT: no ulcers no thrush. Tongue is midline. Oropharynx: no rash or ulcers. EYES: Pupils are equal, round and reactive to light accommodation. Eye muscles and extraocular movement intact. Sclera is anicteric. Neck; supple no lymphadenopathy, no thyromegaly or bruit Lungs: Normal respiratory rate/effort. Breath sounds bilateral equal and clear Heart: Normal rate. s1s2 normal. No rub or gallop. Extremities: no edema. No varicose veins Neurological: Patient is alert, awake and oriented to person, place and time. No focal deficit. Strength bilateral appropriate and equal Skin: Warm and dry. Normal turgor. No rash. Palpitation: Normal elasticity for age Abdomen: Abdomen is soft. Bowel sounds +. There is no abdominal tenderness, no guarding/rigidity no organomegaly Psych: lackl insight and normal affect/mood MSK: no joint tenderness or swelling. Digits and nails normal, no deformity : kidney or bladder not palpable Labs/imaging reviewed. Past medical history, past surgical history, family history, social history, allergy reviewed and noted as below Family hx: no hx of CKD. Rest non-contributory Objective - Vital Signs/Intake and Output Vital Signs (last 24 hours): Temp Pulse Resp BP Pulse Ox 98.2 F 85 18 121/73 99 03/27/18 08:00 03/27/18 10:07 03/27/18 08:00 03/27/18 10:07 03/27/18 08:00 - Medications Medications: Current Medications Acetaminophen (Tylenol 325mg Tab) 650 mg PO Q6H PRN PRN Reason: Fever >100.4 F Epoetin Charles (Procrit) 10,000 unit SC TTS [facility] Last Admin: 03/26/18 13:44 Dose: 10,000 unit Ergocalciferol (Drisdol 50,000 Intl Units Cap) 1 cap PO Q7D [facility] Finasteride (Proscar) 5 mg PO DAILY [facility] Last Admin: 03/27/18 10:07 Dose: 5 mg Fluticasone Propionate (Flonase) 1 spr [place] DAILY PRN PRN Reason: Nasal congestion Iron Sucrose 200 mg/ Sodium (Chloride) 110 mls @ 110 mls/hr IVPB DAILY [facility] Stop: 03/28/18 21:31 Last Admin: 03/27/18 10:06 Dose: 110 mls/hr Metoprolol Succinate (Toprol Xl) 25 mg PO DAILY [facility] Last Admin: 03/27/18 10:07 Dose: 25 mg Ondansetron HCl (Zofran Inj) 4 mg IVP Q6H PRN PRN Reason: Nausea/Vomiting Pantoprazole Sodium (Protonix Ec Tab) 40 mg PO DAILY [facility] Last Admin: 03/27/18 10:06 Dose: 40 mg Sodium Bicarbonate (Sodium Bicarbonate Tab) 1,300 mg PO TID [facility] Tamsulosin HCl (Flomax) 0.4 mg PO QPM [facility] Last Admin: 03/26/18 17:46 Dose: 0.4 mg Tobramycin/Dexamethasone (Tobradex 0.3%-0.1% Opht Oint) 1 appl OD TID [facility] Last Admin: 03/27/18 10:06 Dose: 1 applic Vitamin B Complex/Vit C/Folic Acid (Nephro-Jj) 1 tab PO DAILY [facility] Last Admin: 03/27/18 10:07 Dose: 1 tab - Labs Labs: 03/27/18 03:45 03/27/18 03:45 PT 14.4 Seconds (9.8-13.1) H 03/25/18 10:26 INR 1.3 (0.9-1.2) H 03/25/18 10:26 APTT 25.7 Seconds (25.6-37.1) 03/25/18 10:26
--- NOTE | 2018-03-27 22:03 | CP.PCM.PN ---
Subjective - Date & Time of Evaluation Date of Evaluation: 03/26/18 Time of Evaluation: 16:00 - Subjective Subjective: No complaints. Objective - Vital Signs/Intake and Output Vital Signs (last 24 hours): Temp Pulse Resp BP Pulse Ox 98.8 F 107 H 18 122/71 98 03/27/18 20:49 03/27/18 20:49 03/27/18 20:49 03/27/18 20:49 03/27/18 20:49 Intake and Output: 03/27/18 03/28/18 18:59 06:59 Intake Total 425 Balance 425 - Medications Medications: Current Medications Acetaminophen (Tylenol 325mg Tab) 650 mg PO Q6H PRN PRN Reason: Fever >100.4 F Epoetin Charles (Procrit) 10,000 unit SC TTS [facility] Last Admin: 03/26/18 13:44 Dose: 10,000 unit Ergocalciferol (Drisdol 50,000 Intl Units Cap) 1 cap PO Q7D [facility] Last Admin: 03/27/18 17:31 Dose: 1 cap Finasteride (Proscar) 5 mg PO DAILY [facility] Last Admin: 03/27/18 10:07 Dose: 5 mg Fluticasone Propionate (Flonase) 1 spr [place] DAILY PRN PRN Reason: Nasal congestion Iron Sucrose 200 mg/ Sodium (Chloride) 110 mls @ 110 mls/hr IVPB DAILY [facility] Stop: 03/28/18 21:31 Last Admin: 03/27/18 10:06 Dose: 110 mls/hr Metoprolol Succinate (Toprol Xl) 25 mg PO DAILY [facility] Last Admin: 03/27/18 10:07 Dose: 25 mg Ondansetron HCl (Zofran Inj) 4 mg IVP Q6H PRN PRN Reason: Nausea/Vomiting Pantoprazole Sodium (Protonix Ec Tab) 40 mg PO DAILY [facility] Last Admin: 03/27/18 10:06 Dose: 40 mg Sodium Bicarbonate (Sodium Bicarbonate Tab) 1,300 mg PO TID [facility] Last Admin: 03/27/18 17:31 Dose: 1,300 mg Tamsulosin HCl (Flomax) 0.4 mg PO QPM [facility] Last Admin: 03/27/18 17:31 Dose: 0.4 mg Tobramycin/Dexamethasone (Tobradex 0.3%-0.1% Opht Oint) 1 appl OD TID [facility] Last Admin: 03/27/18 17:32 Dose: 1 applic Vitamin B Complex/Vit C/Folic Acid (Nephro-Jj) 1 tab PO DAILY [facility] Last Admin: 03/27/18 10:07 Dose: 1 tab - Labs Labs: 03/27/18 03:45 03/27/18 03:45 PT 14.4 Seconds (9.8-13.1) H 03/25/18 10:26 INR 1.3 (0.9-1.2) H 03/25/18 10:26 APTT 25.7 Seconds (25.6-37.1) 03/25/18 10:26 - Head Exam Head Exam: ATRAUMATIC - Eye Exam Eye Exam: Normal appearance - ENT Exam ENT Exam: Mucous Membranes Dry - Respiratory Exam Respiratory Exam: NORMAL BREATHING PATTERN - Cardiovascular Exam Cardiovascular Exam: +S1, +S2 - GI/Abdominal Exam GI & Abdominal Exam: Normal Bowel Sounds Assessment and Plan (1) Anemia Assessment & Plan: iron deficiency; on IV iron anemia of CKD; on Procrit consider PRBC transfusion if hgb remains < 8 despite above Status: Acute (2) Thrombocytosis Assessment & Plan: improving with iron supplementation Status: Acute
--- NOTE | 2018-03-27 22:48 | CP.PCM.PN ---
Subjective - Date & Time of Evaluation Date of Evaluation: 03/27/18 Time of Evaluation: 19:05 - Subjective Subjective: Seen and examined at the bed side.+Bloody urine. H/H further dropped to 7.2 mg/ dl, and 2 More units of PRBCs ordered. Also continue to have eye discharge but less today. Objective - Vital Signs/Intake and Output Vital Signs (last 24 hours): Temp Pulse Resp BP Pulse Ox 98.8 F 107 H 18 122/71 98 03/27/18 20:49 03/27/18 20:49 03/27/18 20:49 03/27/18 20:49 03/27/18 20:49 Intake and Output: 03/27/18 03/28/18 18:59 06:59 Intake Total 425 Balance 425 - Medications Medications: Current Medications Acetaminophen (Tylenol 325mg Tab) 650 mg PO Q6H PRN PRN Reason: Fever >100.4 F Epoetin Charles (Procrit) 10,000 unit SC TTS [facility] Last Admin: 03/26/18 13:44 Dose: 10,000 unit Ergocalciferol (Drisdol 50,000 Intl Units Cap) 1 cap PO Q7D [facility] Last Admin: 03/27/18 17:31 Dose: 1 cap Finasteride (Proscar) 5 mg PO DAILY [facility] Last Admin: 03/27/18 10:07 Dose: 5 mg Fluticasone Propionate (Flonase) 1 spr [place] DAILY PRN PRN Reason: Nasal congestion Iron Sucrose 200 mg/ Sodium (Chloride) 110 mls @ 110 mls/hr IVPB DAILY [facility] Stop: 03/28/18 21:31 Last Admin: 03/27/18 10:06 Dose: 110 mls/hr Metoprolol Succinate (Toprol Xl) 25 mg PO DAILY [facility] Last Admin: 03/27/18 10:07 Dose: 25 mg Ondansetron HCl (Zofran Inj) 4 mg IVP Q6H PRN PRN Reason: Nausea/Vomiting Pantoprazole Sodium (Protonix Ec Tab) 40 mg PO DAILY [facility] Last Admin: 03/27/18 10:06 Dose: 40 mg Sodium Bicarbonate (Sodium Bicarbonate Tab) 1,300 mg PO TID [facility] Last Admin: 03/27/18 17:31 Dose: 1,300 mg Tamsulosin HCl (Flomax) 0.4 mg PO QPM [facility] Last Admin: 03/27/18 17:31 Dose: 0.4 mg Tobramycin/Dexamethasone (Tobradex 0.3%-0.1% Opht Oint) 1 appl OD TID [facility] Last Admin: 03/27/18 17:32 Dose: 1 applic Vitamin B Complex/Vit C/Folic Acid (Nephro-Jj) 1 tab PO DAILY [facility] Last Admin: 03/27/18 10:07 Dose: 1 tab - Labs Labs: 03/27/18 03:45 03/27/18 03:45 PT 14.4 Seconds (9.8-13.1) H 03/25/18 10:26 INR 1.3 (0.9-1.2) H 03/25/18 10:26 APTT 25.7 Seconds (25.6-37.1) 03/25/18 10:26 - Constitutional Appears: No Acute Distress - Head Exam Head Exam: ATRAUMATIC, NORMAL INSPECTION, NORMOCEPHALIC - Eye Exam Eye Exam: Conjunctival injection - ENT Exam ENT Exam: Mucous Membranes Moist, Normal Exam - Neck Exam Neck Exam: Full ROM, Normal Inspection. absent: Lymphadenopathy - Respiratory Exam Respiratory Exam: Clear to Ausculation Bilateral, NORMAL BREATHING PATTERN - Cardiovascular Exam Cardiovascular Exam: REGULAR RHYTHM, +S1, +S2. absent: Murmur - GI/Abdominal Exam GI & Abdominal Exam: Soft, Normal Bowel Sounds. absent: Tenderness - Extremities Exam Extremities Exam: Full ROM, Normal Capillary Refill, Normal Inspection. absent : Joint Swelling, Pedal Edema - Back Exam Back Exam: Full ROM, NORMAL INSPECTION - Neurological Exam Neurological Exam: Alert, Awake, CN II-XII Intact, Normal Gait, Oriented x3 - Psychiatric Exam Psychiatric exam: Normal Affect, Normal Mood - Skin Skin Exam: Dry, Intact, Normal Color, Warm Assessment and Plan (1) Altered mental status Assessment & Plan: Continue to Monitor Status: Resolved (2) Severe anemia S/P 4 Units of PRBCs Assessment & Plan: No New Complaint. H/H continue to be Low and on Iron Infusion. Transfuse 2 more units Monitor H/H Status: Acute (3) Hyperkalemia-Resolved Assessment & Plan: Monitor Status: Resolved (4) Acute on chronic renal failure Status: Acute Monitor BMP IVF (5) New onset a-fib- Rate Controlled Status: Acute (6) Thrombocytosis Status: Acute Assessment and Plan (Free Text) Plan: Continue Supportive Care Iron Infusion Nephrology recommended Kidney Biopsy Machine Stoppage Frequency Checker on Board CBC CMP (7) Eye Discharges Tobramycin oint. Apply TID Status: Resolved
[2018-03-28 06:07] LABS: BASO % 0.3 % (0.0-2.0); EOS # 0.3 K/uL (0.0-0.7); EOS % 4.2 % (0.0-4.0); LYMPH # 0.6 K/uL (1.0-4.3); LYMPH % 8.5 % (20.0-40.0); MEAN CORPUSCULAR HEMOGLOBIN 25.4 pg (27.0-31.0); MEAN CORPUSCULAR HGB CONC 32.5 g/dL (33.0-37.0); MEAN PLATELET VOLUME 5.9 fl (7.2-11.7); MONO # 0.9 K/uL (0.0-0.8); MONO % 12.8 % (0.0-10.0); NEUT # 5.4 K/uL (1.8-7.0); NEUT % 74.2 % (50.0-75.0); NRBC % 0.1 % (0.0-0.0); RBC 3.54 Mil/uL (4.40-5.90); WHITE BLOOD COUNT 7.2 K/uL (4.8-10.8)
[2018-03-28 06:12] LABS: CALCIUM 8.1 mg/dL (8.4-10.2)
--- NOTE | 2018-03-28 09:00 | CP.PCM.PN ---
Subjective - Date & Time of Evaluation Date of Evaluation: 03/28/18 Time of Evaluation: 09:00 - Subjective Subjective: patient M bed appears to be comfortable No nausea no vomiting Vital sign noted to be stable Objective - Vital Signs/Intake and Output Vital Signs (last 24 hours): Temp Pulse Resp BP Pulse Ox 98.0 F 119 H 18 109/64 93 L 03/28/18 01:19 03/28/18 01:19 03/28/18 01:19 03/28/18 01:19 03/28/18 00:34 - Medications Medications: Current Medications Acetaminophen (Tylenol 325mg Tab) 650 mg PO Q6H PRN PRN Reason: Fever >100.4 F Epoetin Charles (Procrit) 10,000 unit SC TTS [facility] Last Admin: 03/26/18 13:44 Dose: 10,000 unit Ergocalciferol (Drisdol 50,000 Intl Units Cap) 1 cap PO Q7D [facility] Last Admin: 03/27/18 17:31 Dose: 1 cap Finasteride (Proscar) 5 mg PO DAILY [facility] Last Admin: 03/27/18 10:07 Dose: 5 mg Fluticasone Propionate (Flonase) 1 spr [place] DAILY PRN PRN Reason: Nasal congestion Iron Sucrose 200 mg/ Sodium (Chloride) 110 mls @ 110 mls/hr IVPB DAILY [facility] Stop: 03/28/18 21:31 Last Admin: 03/27/18 10:06 Dose: 110 mls/hr Metoprolol Succinate (Toprol Xl) 25 mg PO DAILY [facility] Last Admin: 03/27/18 10:07 Dose: 25 mg Ondansetron HCl (Zofran Inj) 4 mg IVP Q6H PRN PRN Reason: Nausea/Vomiting Pantoprazole Sodium (Protonix Ec Tab) 40 mg PO DAILY [facility] Last Admin: 03/27/18 10:06 Dose: 40 mg Sodium Bicarbonate (Sodium Bicarbonate Tab) 1,300 mg PO TID [facility] Last Admin: 03/27/18 17:31 Dose: 1,300 mg Tamsulosin HCl (Flomax) 0.4 mg PO QPM [facility] Last Admin: 03/27/18 17:31 Dose: 0.4 mg Tobramycin/Dexamethasone (Tobradex 0.3%-0.1% Opht Oint) 1 appl OD TID [facility] Last Admin: 03/27/18 17:32 Dose: 1 applic Vitamin B Complex/Vit C/Folic Acid (Nephro-Jj) 1 tab PO DAILY [facility] Last Admin: 03/27/18 10:07 Dose: 1 tab - Labs Labs: 03/28/18 04:20 03/28/18 04:20 PT 14.4 Seconds (9.8-13.1) H 03/25/18 10:26 INR 1.3 (0.9-1.2) H 03/25/18 10:26 APTT 25.7 Seconds (25.6-37.1) 03/25/18 10:26 - Constitutional Appears: No Acute Distress - Eye Exam Eye Exam: Conjunctival injection - ENT Exam ENT Exam: Mucous Membranes Moist - Neck Exam Neck Exam: absent: Lymphadenopathy - Respiratory Exam Respiratory Exam: NORMAL BREATHING PATTERN. absent: Chest Wall Tenderness - GI/Abdominal Exam GI & Abdominal Exam: Soft, Normal Bowel Sounds - Extremities Exam Extremities Exam: absent: Calf Tenderness - Back Exam Back Exam: absent: CVA tenderness (L), CVA tenderness (R) - Neurological Exam Neurological Exam: Alert - Psychiatric Exam Psychiatric exam: absent: Normal Affect - Skin Skin Exam: absent: Cyanosis Assessment and Plan (1) Hyperkalemia Status: Resolved (2) Acute renal failure (ARF) Assessment & Plan: acute kidney injury superimposed most likely on chronic kidney disease although I do not have baseline of serum creatinine. 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 Proteinuria in the range of 4100 mg consistent with nephrotic syndrome. Hyponatremia improving serum sodium came up to 133. Patient receiving normal saline was cut down to 30 mL/h. Metabolic acidosis CO2 in the range of 15 Recommendation Oral sodium bicarbonate supplement Patient to go for kidney biopsy as soon as she is cleared by cardiology patient required blood transfusion over the weekend More workup for glomera disease such GBM antibody and ANCA Status: Acute
[2018-03-28] MEDS: Tobramycin/Dexamethasone OPHT OINT OD SCH ×3 (09:25→16:41)
[2018-03-28] MEDS: Metoprolol Succinate 25 mg XL Tab PO SCH (09:26)
[2018-03-28] MEDS ORDERED: Lidocaine Hydrochloride 5 ML INJ ONE (14:03)
[2018-03-28] MEDS ORDERED: Midazolam 2 MG/2 ML VIAL ONE (14:06)
[2018-03-28] MEDS ORDERED: Absorbable Gelatin Sponge Size 12-7 ONE (14:08)
--- NOTE | 2018-03-28 14:22 | PCM.SURG1 ---
Surgeon's Initial Post Op Note - Surgeon's Notes Surgeon: Prieto Gleason MD [facility] [employer] [facility] Assistant: NONE Type of Anesthesia: IV Sedation Pre-Operative Diagnosis: Renal failure Operative Findings: US showed unremarkable left kidney Post-Operative Diagnosis: Renal failure Operation Performed: US guided left renal biopsy. Four 18 g core specimen removed. Biopsy tract embolized with gelfoam. Specimen/Specimens Removed: 18 g core x 4 Estimated Blood Loss: EBL {In ML}: 2 Blood Products Given: N/A Drains Used: No Drains Post-Op Condition: Fair Date of Surgery/Procedure: 03/28/18 Time of Surgery/Procedure: 14:20
[2018-03-28] MEDS ORDERED: Sodium Chloride 0.9% 250 ML IV ONE (14:25)
[2018-03-28] MEDS: Pantoprazole 40 mg EC Tab PO SCH (16:40)
[2018-03-28] MEDS: Multivitamin Vitamin B Complex (Nephro-Vite) Tab PO SCH (16:41)
[2018-03-29 02:21] LABS: HEMOGLOBIN 8.8 g/dL (12.0-18.0); MEAN CORPUSCULAR HEMOGLOBIN 25.2 pg (27.0-31.0); MEAN CORPUSCULAR HGB CONC 32.4 g/dL (33.0-37.0); RBC 3.5 Mil/uL (4.40-5.90); RED CELL DISTRIBUTION WIDTH 26.1 % (11.5-14.5); WHITE BLOOD COUNT 8.4 K/uL (4.8-10.8)
[2018-03-29 02:26] LABS: INR 1.4 (0.9-1.2); PROTHROMBIN TIME 15.4 Seconds (9.8-13.1)
[2018-03-29 02:28] LABS: CALCIUM 8.3 mg/dL (8.4-10.2)
[2018-03-29] MEDS: Metoprolol Succinate 25 mg XL Tab PO SCH (09:15)
[2018-03-29] MEDS: Pantoprazole 40 mg EC Tab PO SCH (09:16)
[2018-03-29] MEDS: Multivitamin Vitamin B Complex (Nephro-Vite) Tab PO SCH (09:16)
[2018-03-29] MEDS: EPOETIN ALFA 10,000 UNIT/ML ML SC SCH ×2 (09:16→11:07)
[2018-03-29] MEDS: Tobramycin/Dexamethasone OPHT OINT OD SCH ×3 (09:21→17:16)
--- NOTE | 2018-03-29 11:18 | CP.PCM.PN ---
Subjective - Date & Time of Evaluation Date of Evaluation: 03/29/18 Time of Evaluation: 11:17 - Subjective Subjective: patient awake and conscious Reported to have some mild bloody tinged urine status post kidney biopsy. No abdominal pain reported no nausea no vomiting Objective - Vital Signs/Intake and Output Vital Signs (last 24 hours): Temp Pulse Resp BP Pulse Ox 98.6 F 101 H 17 109/64 98 03/29/18 07:58 03/29/18 07:58 03/29/18 07:58 03/29/18 07:58 03/29/18 07:58 - Medications Medications: Current Medications Acetaminophen (Tylenol 325mg Tab) 650 mg PO Q6H PRN PRN Reason: Fever >100.4 F Epoetin Charles (Procrit) 10,000 unit SC TTS [facility] Last Admin: 03/29/18 11:07 Dose: Not Given Ergocalciferol (Drisdol 50,000 Intl Units Cap) 1 cap PO Q7D [facility] Finasteride (Proscar) 5 mg PO DAILY [facility] Fluticasone Propionate (Flonase) 1 spr [place]ERIA DAILY PRN PRN Reason: Nasal congestion Metoprolol Succinate (Toprol Xl) 25 mg PO DAILY [facility] Ondansetron HCl (Zofran Inj) 4 mg IVP Q6H PRN PRN Reason: Nausea/Vomiting Pantoprazole Sodium (Protonix Ec Tab) 40 mg PO DAILY [facility] Sodium Bicarbonate (Sodium Bicarbonate Tab) 1,300 mg PO TID [facility] Tamsulosin HCl (Flomax) 0.4 mg PO QPM [facility] Tobramycin/Dexamethasone (Tobradex 0.3%-0.1% Opht Oint) 1 appl OD TID [facility] Vitamin B Complex/Vit C/Folic Acid (Nephro-Jj) 1 tab PO DAILY [facility] - Labs Labs: 03/29/18 02:17 03/29/18 02:17 PT 15.4 Seconds (9.8-13.1) H 03/29/18 02:17 INR 1.4 (0.9-1.2) H 03/29/18 02:17 APTT 25.7 Seconds (25.6-37.1) 03/25/18 10:26 - Constitutional Appears: No Acute Distress - ENT Exam ENT Exam: absent: Mucous Membranes Moist - Neck Exam Neck Exam: absent: Lymphadenopathy - Respiratory Exam Respiratory Exam: NORMAL BREATHING PATTERN. absent: Chest Wall Tenderness - Cardiovascular Exam Cardiovascular Exam: absent: Gallop, JVD, Rubs - GI/Abdominal Exam GI & Abdominal Exam: Soft, Normal Bowel Sounds - Extremities Exam Extremities Exam: absent: Calf Tenderness - Back Exam Back Exam: absent: CVA tenderness (L), CVA tenderness (R) - Neurological Exam Neurological Exam: Alert - Psychiatric Exam Psychiatric exam: Normal Affect - Skin Skin Exam: absent: Cyanosis Assessment and Plan (1) Hyperkalemia Status: Resolved (2) Acute renal failure (ARF) Assessment & Plan: acute kidney injury superimposed most likely on chronic kidney disease perhaps is stage IV although I do not have baseline of serum creatinine. 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 Proteinuria in the range of 4100 mg consistent with nephrotic syndrome. Hyponatremia improving serum sodium came up to 133. Patient receiving normal saline was cut down to 30 mL/h. Metabolic acidosis CO2 in the range of 15 Recommendation Oral sodium bicarbonate supplement S/P kidney biopsy patient required blood transfusion over the weekend More workup for glomerular disease such GBM antibody and ANCA Status: Acute
--- NOTE | 2018-03-29 11:31 | US ---
PROCEDURE: Date of procedure: 03/28/2018 Procedure: Ultrasound-guided left renal biopsy, CPT 49093 Ultrasound guidance for biopsy, [address] Medication: 8 cc 2% Lidocaine, patient received IV sedation by the anesthesiologist along with physiologic monitoring. HISTORY: Renal failure TECHNIQUE: Following informed consent and procedure time-out, the patient was placed prone on the interventional table and a limited ultrasound showed slightly echogenic left kidney consistent with medical renal disease. There is no hydronephrosis or mass. The patient left back was prepped and draped in the usual sterile fashion. After patient sedated by the anesthesiologist and the skin anesthetized with lidocaine, an 18 gauge core needle was advanced percutaneously towards the lower pole cortex. Upon confirmation of needle position,four-18 gauge core specimens were obtained and sent for routine pathology. The biopsy tract was then embolized with Gelfoam. A post biopsy ultrasound showed no hematoma. There were no immediate complications. IMPRESSION: Ultrasound-guided left renal biopsy.
[2018-03-29] MEDS ORDERED: methylPREDNISolone 1 GM in Sodium Chloride 0.9% 250 ML IV SCH (15:45)
--- NOTE | 2018-03-29 15:45 | CP.PCM.PN ---
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 ANCA/GBM ab results pending ordered a dose of solumedrol 1 gram IVPB now d/w Dr Bernabe Objective - Vital Signs/Intake and Output Vital Signs (last 24 hours): Temp Pulse Resp BP Pulse Ox 98.6 F 116 H 17 119/70 100 03/29/18 11:57 03/29/18 11:57 03/29/18 11:57 03/29/18 11:57 03/29/18 11:57 - Medications Medications: Current Medications Acetaminophen (Tylenol 325mg Tab) 650 mg PO Q6H PRN PRN Reason: Fever >100.4 F Epoetin Charles (Procrit) 10,000 unit SC TTS [facility] Last Admin: 03/29/18 11:07 Dose: Not Given Ergocalciferol (Drisdol 50,000 Intl Units Cap) 1 cap PO Q7D [facility] Finasteride (Proscar) 5 mg PO DAILY [facility] Fluticasone Propionate (Flonase) 1 spr [place]ERIA DAILY PRN PRN Reason: Nasal congestion Methylprednisolone 1 gm/ (Sodium Chloride) 250 mls @ 62.5 mls/hr IV DAILY [facility] Stop: 03/29/18 19:44 Metoprolol Succinate (Toprol Xl) 25 mg PO DAILY [facility] Ondansetron HCl (Zofran Inj) 4 mg IVP Q6H PRN PRN Reason: Nausea/Vomiting Pantoprazole Sodium (Protonix Ec Tab) 40 mg PO DAILY [facility] Sodium Bicarbonate (Sodium Bicarbonate Tab) 1,300 mg PO TID [facility] Last Admin: 03/29/18 12:48 Dose: 1,300 mg Tamsulosin HCl (Flomax) 0.4 mg PO QPM [facility] Tobramycin/Dexamethasone (Tobradex 0.3%-0.1% Opht Oint) 1 appl OD TID [facility] Last Admin: 03/29/18 12:48 Dose: 1 unit Vitamin B Complex/Vit C/Folic Acid (Nephro-Jj) 1 tab PO DAILY [facility] - Labs Labs: 03/29/18 02:17 03/29/18 02:17 PT 15.4 Seconds (9.8-13.1) H 03/29/18 02:17 INR 1.4 (0.9-1.2) H 03/29/18 02:17 APTT 25.7 Seconds (25.6-37.1) 03/25/18 10:26
[2018-03-29 16:33] LABS: BASO % 0.5 % (0.0-2.0); EOS # 0.3 K/uL (0.0-0.7); EOS % 3.8 % (0.0-4.0); LYMPH # 0.4 K/uL (1.0-4.3); LYMPH % 5.7 % (20.0-40.0); MEAN CELL VOLUME 77.5 fl (80.0-94.0); MEAN CORPUSCULAR HEMOGLOBIN 24.8 pg (27.0-31.0); MEAN CORPUSCULAR HGB CONC 32.1 g/dL (33.0-37.0); MONO # 0.8 K/uL (0.0-0.8); MONO % 11.4 % (0.0-10.0); NEUT # 5.7 K/uL (1.8-7.0); NEUT % 78.6 % (50.0-75.0); RBC 3.24 Mil/uL (4.40-5.90); RED CELL DISTRIBUTION WIDTH 26.1 % (11.5-14.5); WHITE BLOOD COUNT 7.2 K/uL (4.8-10.8)
--- NOTE | 2018-03-29 18:37 | CP.PCM.PN ---
Subjective - Date & Time of Evaluation Date of Evaluation: 03/28/18 Time of Evaluation: 20:00 - Subjective Subjective: Has kidney biopsy today Objective - Vital Signs/Intake and Output Vital Signs (last 24 hours): Temp Pulse Resp BP Pulse Ox 97.9 F 110 H 20 112/67 96 03/29/18 16:54 03/29/18 16:54 03/29/18 16:54 03/29/18 16:54 03/29/18 16:54 - Medications Medications: Current Medications Acetaminophen (Tylenol 325mg Tab) 650 mg PO Q6H PRN PRN Reason: Fever >100.4 F Epoetin Charles (Procrit) 10,000 unit SC TTS [facility] Last Admin: 03/29/18 11:07 Dose: Not Given Ergocalciferol (Drisdol 50,000 Intl Units Cap) 1 cap PO Q7D [facility] Finasteride (Proscar) 5 mg PO DAILY [facility] Fluticasone Propionate (Flonase) 1 spr [place]IA DAILY PRN PRN Reason: Nasal congestion Methylprednisolone 1 gm/ (Sodium Chloride) 250 mls @ 62.5 mls/hr IV DAILY [facility] Stop: 03/29/18 19:44 Last Admin: 03/29/18 17:15 Dose: 62.5 mls/hr Metoprolol Succinate (Toprol Xl) 25 mg PO DAILY [facility] Ondansetron HCl (Zofran Inj) 4 mg IVP Q6H PRN PRN Reason: Nausea/Vomiting Pantoprazole Sodium (Protonix Ec Tab) 40 mg PO DAILY [facility] Sodium Bicarbonate (Sodium Bicarbonate Tab) 1,300 mg PO TID [facility] Last Admin: 03/29/18 17:17 Dose: 1,300 mg Tamsulosin HCl (Flomax) 0.4 mg PO QPM [facility] Last Admin: 03/29/18 17:17 Dose: 0.4 mg Tobramycin/Dexamethasone (Tobradex 0.3%-0.1% Opht Oint) 1 appl OD TID [facility] Last Admin: 03/29/18 17:16 Dose: 1 unit Vitamin B Complex/Vit C/Folic Acid (Nephro-Jj) 1 tab PO DAILY [facility] - Labs Labs: 03/29/18 14:55 03/29/18 02:17 PT 15.4 Seconds (9.8-13.1) H 03/29/18 02:17 INR 1.4 (0.9-1.2) H 03/29/18 02:17 APTT 25.7 Seconds (25.6-37.1) 03/25/18 10:26 - Head Exam Head Exam: ATRAUMATIC - Eye Exam Eye Exam: Normal appearance - ENT Exam ENT Exam: Mucous Membranes Dry - Respiratory Exam Respiratory Exam: NORMAL BREATHING PATTERN - Cardiovascular Exam Cardiovascular Exam: +S1, +S2 - GI/Abdominal Exam GI & Abdominal Exam: Normal Bowel Sounds Assessment and Plan (1) Anemia Assessment & Plan: iron deficiency anemia anemia of CKD iron and Procrit supplementation s/p PRBC transfusion Status: Acute
--- NOTE | 2018-03-29 18:38 | CP.PCM.PN ---
Subjective - Date & Time of Evaluation Date of Evaluation: 03/29/18 Time of Evaluation: 13:00 - Subjective Subjective: Has some blood tinged urine post biopsy Objective - Vital Signs/Intake and Output Vital Signs (last 24 hours): Temp Pulse Resp BP Pulse Ox 97.9 F 110 H 20 112/67 96 03/29/18 16:54 03/29/18 16:54 03/29/18 16:54 03/29/18 16:54 03/29/18 16:54 - Medications Medications: Current Medications Acetaminophen (Tylenol 325mg Tab) 650 mg PO Q6H PRN PRN Reason: Fever >100.4 F Epoetin Charles (Procrit) 10,000 unit SC TTS [facility] Last Admin: 03/29/18 11:07 Dose: Not Given Ergocalciferol (Drisdol 50,000 Intl Units Cap) 1 cap PO Q7D [facility] Finasteride (Proscar) 5 mg PO DAILY [facility] Fluticasone Propionate (Flonase) 1 spr [place] DAILY PRN PRN Reason: Nasal congestion Methylprednisolone 1 gm/ (Sodium Chloride) 250 mls @ 62.5 mls/hr IV DAILY [facility] Stop: 03/29/18 19:44 Last Admin: 03/29/18 17:15 Dose: 62.5 mls/hr Metoprolol Succinate (Toprol Xl) 25 mg PO DAILY [facility] Ondansetron HCl (Zofran Inj) 4 mg IVP Q6H PRN PRN Reason: Nausea/Vomiting Pantoprazole Sodium (Protonix Ec Tab) 40 mg PO DAILY [facility] Sodium Bicarbonate (Sodium Bicarbonate Tab) 1,300 mg PO TID [facility] Last Admin: 03/29/18 17:17 Dose: 1,300 mg Tamsulosin HCl (Flomax) 0.4 mg PO QPM [facility] Last Admin: 03/29/18 17:17 Dose: 0.4 mg Tobramycin/Dexamethasone (Tobradex 0.3%-0.1% Opht Oint) 1 appl OD TID [facility] Last Admin: 03/29/18 17:16 Dose: 1 unit Vitamin B Complex/Vit C/Folic Acid (Nephro-Jj) 1 tab PO DAILY [facility] - Labs Labs: 03/29/18 14:55 03/29/18 02:17 PT 15.4 Seconds (9.8-13.1) H 03/29/18 02:17 INR 1.4 (0.9-1.2) H 03/29/18 02:17 APTT 25.7 Seconds (25.6-37.1) 03/25/18 10:26 - Head Exam Head Exam: ATRAUMATIC - Eye Exam Eye Exam: Normal appearance - ENT Exam ENT Exam: Mucous Membranes Dry - Respiratory Exam Respiratory Exam: NORMAL BREATHING PATTERN - Cardiovascular Exam Cardiovascular Exam: +S1, +S2 - GI/Abdominal Exam GI & Abdominal Exam: Normal Bowel Sounds Assessment and Plan (1) Anemia Assessment & Plan: iron deficiency anemia; s/p IV iron anemia of CKD on Procrit s/p PRBC transfusion transfusion support PRN Status: Acute
[2018-03-30 00:08] LABS: ALBUMIN (PEP) 1.9 g/dL (3.8-4.8); ALPHA-1-GLOBULIN (PEP) 0.6 g/dL (0.2-0.3)
[2018-03-30 01:14] LABS: ANCA SCREEN NEGATIVE (NEGATIVE)
[2018-03-30] MEDS: Tobramycin/Dexamethasone OPHT OINT OD SCH ×3 (05:34→20:47)
[2018-03-30 07:40] LABS: ALB/GLOB RATIO 0.6 (1.0-2.1); ALBUMIN 2.4 g/dL (3.5-5.0); CALCIUM 8.3 mg/dL (8.4-10.2)
[2018-03-30] MEDS: Pantoprazole 40 mg EC Tab PO SCH (09:24)
[2018-03-30] MEDS: Metoprolol Succinate 25 mg XL Tab PO SCH (09:24)
[2018-03-30] MEDS: Multivitamin Vitamin B Complex (Nephro-Vite) Tab PO SCH (09:24)
--- NOTE | 2018-03-30 09:25 | CP.PCM.PN ---
Subjective - Date & Time of Evaluation Date of Evaluation: 03/28/18 Time of Evaluation: 15:25 - Subjective Subjective: Seen and examined at the bed side.Gross Hematuria a S/P Kidney Biopsy by IR today. Azotemia remains High. Hgb improved to 9mg/dl after transfusion. No other complaint. Objective - Vital Signs/Intake and Output Vital Signs (last 24 hours): Temp Pulse Resp BP Pulse Ox 98.6 F 102 H 20 113/66 99 03/30/18 08:31 03/30/18 08:31 03/30/18 08:31 03/30/18 08:03/30/18 08:31 - Medications Medications: Current Medications Acetaminophen (Tylenol 325mg Tab) 650 mg PO Q6H PRN PRN Reason: Fever >100.4 F Epoetin Charles (Procrit) 10,000 unit SC TTS [facility] Last Admin: 03/29/18 11:07 Dose: Not Given Ergocalciferol (Drisdol 50,000 Intl Units Cap) 1 cap PO Q7D [facility] Finasteride (Proscar) 5 mg PO DAILY [facility] Fluticasone Propionate (Flonase) 1 spr [place]IA DAILY PRN PRN Reason: Nasal congestion Metoprolol Succinate (Toprol Xl) 25 mg PO DAILY [facility] Ondansetron HCl (Zofran Inj) 4 mg IVP Q6H PRN PRN Reason: Nausea/Vomiting Pantoprazole Sodium (Protonix Ec Tab) 40 mg PO DAILY [facility] Sodium Bicarbonate (Sodium Bicarbonate Tab) 1,300 mg PO TID [facility] Last Admin: 03/29/18 17:17 Dose: 1,300 mg Tamsulosin HCl (Flomax) 0.4 mg PO QPM [facility] Last Admin: 03/29/18 17:17 Dose: 0.4 mg Tobramycin/Dexamethasone (Tobradex 0.3%-0.1% Opht Oint) 1 appl OD Q8H [facility] Last Admin: 03/30/18 05:34 Dose: 1 applic Vitamin B Complex/Vit C/Folic Acid (Nephro-Jj) 1 tab PO DAILY [facility] - Labs Labs: 03/29/18 14:55 03/30/18 05:55 PT 15.4 Seconds (9.8-13.1) H 03/29/18 02:17 INR 1.4 (0.9-1.2) H 03/29/18 02:17 APTT 25.7 Seconds (25.6-37.1) 03/25/18 10:26 - Constitutional Appears: Well, No Acute Distress - Head Exam Head Exam: ATRAUMATIC, NORMAL INSPECTION, NORMOCEPHALIC - Eye Exam Eye Exam: EOMI, Normal appearance, PERRL Pupil Exam: NORMAL ACCOMODATION, PERRL - ENT Exam ENT Exam: Mucous Membranes Moist, Normal Exam - Neck Exam Neck Exam: Full ROM, Normal Inspection. absent: Lymphadenopathy - Respiratory Exam Respiratory Exam: Clear to Ausculation Bilateral, NORMAL BREATHING PATTERN - Cardiovascular Exam Cardiovascular Exam: REGULAR RHYTHM, +S1, +S2. absent: Murmur - GI/Abdominal Exam GI & Abdominal Exam: Soft, Normal Bowel Sounds. absent: Tenderness - Extremities Exam Extremities Exam: Full ROM, Normal Capillary Refill, Normal Inspection. absent : Joint Swelling, Pedal Edema - Back Exam Back Exam: NORMAL INSPECTION - Neurological Exam Neurological Exam: Alert, Awake, CN II-XII Intact, Normal Gait, Oriented x3 - Psychiatric Exam Psychiatric exam: Normal Affect, Normal Mood - Skin Skin Exam: Dry, Intact, Normal Color, Warm Assessment and Plan (1) Altered mental status Assessment & Plan: Continue to Monitor Status: Resolved (2) Severe anemia S/P 6 Units of PRBCs, Hgb 9.0mg/dl Assessment & Plan: No New Complaint. H/H continue to be Low and on Iron Infusion. Monitor H/H Status: Acute (3) Hyperkalemia-Resolved Assessment & Plan: Monitor Status: Resolved (4) Acute on chronic renal failure, S/P Biopsy, Gross Hematuria Status: Acute Monitor BMP IVF (5) New onset A-fib- Rate Controlled Status: Acute (6) Thrombocytosis Status: Acute Assessment and Plan (Free Text) Plan: Continue Supportive Care Iron Infusion Nephrology recommended Kidney Biopsy Cell Stripper Final on Board CBC CMP (7) Eye Discharges Tobramycin oint. Apply TID Status: Acute
--- NOTE | 2018-03-30 09:49 | CP.PCM.PN ---
Subjective - Date & Time of Evaluation Date of Evaluation: 03/29/18 Time of Evaluation: 15:00 - Subjective Subjective: Seen and examined at the bed side. Kidney Biopsy showed. 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 Objective - Vital Signs/Intake and Output Vital Signs (last 24 hours): Temp Pulse Resp BP Pulse Ox 98.6 F 102 H 20 113/66 99 03/30/18 08:31 03/30/18 09:24 03/30/18 08:31 03/30/18 09:24 03/30/18 08:31 - Medications Medications: Current Medications Acetaminophen (Tylenol 325mg Tab) 650 mg PO Q6H PRN PRN Reason: Fever >100.4 F Epoetin [facility] (Procrit) 10,000 unit SC TTS [facility] Last Admin: 03/29/18 11:07 Dose: Not Given Ergocalciferol (Drisdol 50,000 Intl Units Cap) 1 cap PO Q7D [facility] Finasteride (Proscar) 5 mg PO DAILY [facility] Last Admin: 03/30/18 09:24 Dose: 5 mg Fluticasone Propionate (Flonase) 1 spr [facility] DAILY PRN PRN Reason: Nasal congestion Metoprolol Succinate (Toprol Xl) 25 mg PO DAILY [facility] Last Admin: 03/30/18 09:24 Dose: 25 mg Ondansetron HCl (Zofran Inj) 4 mg IVP Q6H PRN PRN Reason: Nausea/Vomiting Pantoprazole Sodium (Protonix Ec Tab) 40 mg PO DAILY [facility] Last Admin: 03/30/18 09:24 Dose: 40 mg Sodium Bicarbonate (Sodium Bicarbonate Tab) 1,300 mg PO TID [facility] Last Admin: 03/30/18 09:24 Dose: 1,300 mg Tamsulosin HCl (Flomax) 0.4 mg PO QPM [facility] Last Admin: 03/29/18 17:17 Dose: 0.4 mg Tobramycin/Dexamethasone (Tobradex 0.3%-0.1% Opht Oint) 1 appl OD Q8H [facility] Last Admin: 03/30/18 05:34 Dose: 1 applic Vitamin B Complex/Vit C/Folic Acid (Nephro-Jj) 1 tab PO DAILY [facility] Last Admin: 03/30/18 09:24 Dose: 1 tab - Labs Labs: 03/29/18 14:55 03/30/18 05:55 PT 15.4 Seconds (9.8-13.1) H 03/29/18 02:17 INR 1.4 (0.9-1.2) H 03/29/18 02:17 APTT 25.7 Seconds (25.6-37.1) 03/25/18 10:26 Assessment and Plan (1) Altered mental status Assessment & Plan: Continue to Monitor Status: Resolved (2) Severe anemia S/P 6 Units of PRBCs Transfusion, Hgb 9.0mg/dl Assessment & Plan: No New Complaint. H/H continue to be Low and on Iron Infusion. 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 Apply TID Status: Acute
--- NOTE | 2018-03-30 13:29 | CP.PCM.PN ---
Subjective - Date & Time of Evaluation Date of Evaluation: 03/30/18 Time of Evaluation: 13:29 - Subjective Subjective: patient sitting up in the chair family feels comfortable no gross hematuria reported by the patient Objective - Vital Signs/Intake and Output Vital Signs (last 24 hours): Temp Pulse Resp BP Pulse Ox 98.6 F 102 H 20 113/66 99 03/30/18 08:31 03/30/18 09:24 03/30/18 08:31 03/30/18 09:24 03/30/18 08:31 - Medications Medications: Current Medications Acetaminophen (Tylenol 325mg Tab) 650 mg PO Q6H PRN PRN Reason: Fever >100.4 F Epoetin Charles (Procrit) 10,000 unit SC TTS [facility] Last Admin: 03/29/18 11:07 Dose: Not Given Ergocalciferol (Drisdol 50,000 Intl Units Cap) 1 cap PO Q7D [facility] Finasteride (Proscar) 5 mg PO DAILY [facility] Last Admin: 03/30/18 09:24 Dose: 5 mg Fluticasone Propionate (Flonase) 1 spr [facility] DAILY PRN PRN Reason: Nasal congestion Methylprednisolone 1 gm/ (Sodium Chloride) 250 mls @ 62.5 mls/hr IV DAILY [facility] Metoprolol Succinate (Toprol Xl) 25 mg PO DAILY [facility] Last Admin: 03/30/18 09:24 Dose: 25 mg Ondansetron HCl (Zofran Inj) 4 mg IVP Q6H PRN PRN Reason: Nausea/Vomiting Pantoprazole Sodium (Protonix Ec Tab) 40 mg PO DAILY [facility] Last Admin: 03/30/18 09:24 Dose: 40 mg Sodium Bicarbonate (Sodium Bicarbonate Tab) 1,300 mg PO TID [facility] Last Admin: 03/30/18 13:11 Dose: 1,300 mg Tamsulosin HCl (Flomax) 0.4 mg PO QPM [facility] Last Admin: 03/29/18 17:17 Dose: 0.4 mg Tobramycin/Dexamethasone (Tobradex 0.3%-0.1% Opht Oint) 1 appl OD Q8H [facility] Last Admin: 03/30/18 05:34 Dose: 1 applic Vitamin B Complex/Vit C/Folic Acid (Nephro-Jj) 1 tab PO DAILY [facility] Last Admin: 03/30/18 09:24 Dose: 1 tab - Labs Labs: 03/29/18 14:55 03/30/18 05:55 PT 15.4 Seconds (9.8-13.1) H 03/29/18 02:17 INR 1.4 (0.9-1.2) H 03/29/18 02:17 APTT 25.7 Seconds (25.6-37.1) 03/25/18 10:26 - Constitutional Appears: No Acute Distress - Eye Exam Eye Exam: Conjunctival injection - ENT Exam ENT Exam: Mucous Membranes Moist - Neck Exam Neck Exam: absent: Lymphadenopathy - Respiratory Exam Respiratory Exam: NORMAL BREATHING PATTERN - Cardiovascular Exam Cardiovascular Exam: REGULAR RHYTHM. absent: Gallop, Rubs - GI/Abdominal Exam GI & Abdominal Exam: Soft - Extremities Exam Extremities Exam: absent: Calf Tenderness - Back Exam Back Exam: absent: CVA tenderness (L), CVA tenderness (R) - Neurological Exam Neurological Exam: Alert - Psychiatric Exam Psychiatric exam: Normal Affect - Skin Skin Exam: absent: Cyanosis Assessment and Plan (1) Hyperkalemia Status: Resolved (2) Acute renal failure (ARF) Assessment & Plan: acute renal failure whether this went superimposed on chronic kidney disease is not clear however the kidney biopsy showed the following pathology on kidney biopsy results 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
--- NOTE | 2018-03-30 19:47 | CP.PCM.PN ---
Subjective - Date & Time of Evaluation Date of Evaluation: 03/30/18 Time of Evaluation: 18:00 - Subjective Subjective: Appears comfortable diagnosed with glomerulonephritis on pulse steroids and for cyclophosphamide Objective - Vital Signs/Intake and Output Vital Signs (last 24 hours): Temp Pulse Resp BP Pulse Ox 97.3 F L 93 H 18 113/68 99 03/30/18 17:00 03/30/18 17:00 03/30/18 17:00 03/30/18 17:00 03/30/18 17:00 - Medications Medications: Current Medications Acetaminophen (Tylenol 325mg Tab) 650 mg PO Q6H PRN PRN Reason: Fever >100.4 F Epoetin Charles (Procrit) 10,000 unit SC TTS [facility] Last Admin: 03/29/18 11:07 Dose: Not Given Ergocalciferol (Drisdol 50,000 Intl Units Cap) 1 cap PO Q7D [facility] Finasteride (Proscar) 5 mg PO DAILY [facility] Last Admin: 03/30/18 09:24 Dose: 5 mg Fluticasone Propionate (Flonase) 1 spr [place] DAILY PRN PRN Reason: Nasal congestion Methylprednisolone 1 gm/ (Sodium Chloride) 250 mls @ 62.5 mls/hr IV DAILY [facility] Metoprolol Succinate (Toprol Xl) 25 mg PO DAILY [facility] Last Admin: 03/30/18 09:24 Dose: 25 mg Ondansetron HCl (Zofran Inj) 4 mg IVP Q6H PRN PRN Reason: Nausea/Vomiting Pantoprazole Sodium (Protonix Ec Tab) 40 mg PO DAILY [facility] Last Admin: 03/30/18 09:24 Dose: 40 mg Sodium Bicarbonate (Sodium Bicarbonate Tab) 1,300 mg PO TID [facility] Last Admin: 03/30/18 17:00 Dose: 1,300 mg Tamsulosin HCl (Flomax) 0.4 mg PO QPM [facility] Last Admin: 03/30/18 17:00 Dose: 0.4 mg Tobramycin/Dexamethasone (Tobradex 0.3%-0.1% Opht Oint) 1 appl OD Q8H [facility] Last Admin: 03/30/18 13:30 Dose: 1 applic Vitamin B Complex/Vit C/Folic Acid (Nephro-Jj) 1 tab PO DAILY [facility] Last Admin: 03/30/18 09:24 Dose: 1 tab - Labs Labs: 03/29/18 14:55 03/30/18 05:55 PT 15.4 Seconds (9.8-13.1) H 03/29/18 02:17 INR 1.4 (0.9-1.2) H 03/29/18 02:17 APTT 25.7 Seconds (25.6-37.1) 03/25/18 10:26 - Head Exam Head Exam: ATRAUMATIC - Eye Exam Eye Exam: Normal appearance - ENT Exam ENT Exam: Mucous Membranes Dry - Respiratory Exam Respiratory Exam: NORMAL BREATHING PATTERN - Cardiovascular Exam Cardiovascular Exam: +S1, +S2 - GI/Abdominal Exam GI & Abdominal Exam: Normal Bowel Sounds Assessment and Plan (1) Anemia Assessment & Plan: iron deficiency anemia; s/p IV iron anemia of CKD on Procrit s/p PRBC transfusion transfusion support PRN of note, H/H may decline on cyclophosphamide Status: Acute
--- NOTE | 2018-03-31 01:43 | CP.PCM.PN ---
Subjective - Date & Time of Evaluation Date of Evaluation: 03/30/18 Time of Evaluation: 22:05 - Subjective Subjective: Seen and examined at the bed side. No new complaint. Worsening Azotemia. Objective - Vital Signs/Intake and Output Vital Signs (last 24 hours): Temp Pulse Resp BP Pulse Ox 97.5 F L 102 H 20 106/69 98 03/31/18 00:08 03/31/18 00:08 03/31/18 00:08 03/31/18 00:08 03/31/18 00:08 - Medications Medications: Current Medications Acetaminophen (Tylenol 325mg Tab) 650 mg PO Q6H PRN PRN Reason: Fever >100.4 F Epoetin Charles (Procrit) 10,[address] [facility] Last Admin: 03/29/18 11:07 Dose: Not Given Ergocalciferol (Drisdol 50,000 Intl Units Cap) [address] [facility] Finasteride (Proscar) [address] [facility] Last Admin: 03/30/18 09:24 Dose: 5 mg Fluticasone Propionate (Flonase) 1 spr [place] DAILY PRN PRN Reason: Nasal congestion Methylprednisolone 1 gm/ (Sodium Chloride) 250 mls @ 62.5 mls/hr IV DAILY [facility] Metoprolol Succinate (Toprol Xl) [address] [facility] Last Admin: 03/30/18 09:24 Dose: 25 mg Ondansetron HCl (Zofran Inj) 4 mg IVP Q6H PRN PRN Reason: Nausea/Vomiting Pantoprazole Sodium (Protonix Ec Tab) [address] [facility] Last Admin: 03/30/18 09:24 Dose: 40 mg Sodium Bicarbonate (Sodium Bicarbonate Tab) 1,[address] [facility] Last Admin: 03/30/18 17:00 Dose: 1,300 mg Tamsulosin HCl (Flomax) 0.[address] [facility] Last Admin: 03/30/18 17:00 Dose: 0.4 mg Tobramycin/Dexamethasone (Tobradex 0.3%-0.1% Opht Oint) [address] [facility] Last Admin: 03/30/18 20:47 Dose: 1 applic Vitamin B Complex/Vit C/Folic Acid (Nephro-Jj) [address] [facility] Last Admin: 03/30/18 09:24 Dose: 1 tab - Labs Labs: 03/29/18 14:55 03/30/18 05:55 PT 15.4 Seconds (9.8-13.1) H 03/29/18 02:17 INR 1.4 (0.9-1.2) H 03/29/18 02:17 APTT 25.7 Seconds (25.6-37.1) 03/25/18 10:26 - Constitutional Appears: No Acute Distress - Head Exam Head Exam: ATRAUMATIC, NORMAL INSPECTION, NORMOCEPHALIC - Eye Exam Eye Exam: Conjunctival injection Additional comments: B/L eye Discharges improved. - ENT Exam ENT Exam: Mucous Membranes Moist, Normal Exam - Neck Exam Neck Exam: Full ROM, Normal Inspection. absent: Lymphadenopathy - Respiratory Exam Respiratory Exam: Clear to Ausculation Bilateral, NORMAL BREATHING PATTERN - Cardiovascular Exam Cardiovascular Exam: REGULAR RHYTHM, +S1, +S2. absent: Murmur - GI/Abdominal Exam GI & Abdominal Exam: Soft, Normal Bowel Sounds. absent: Tenderness - Extremities Exam Extremities Exam: Full ROM, Normal Capillary Refill, Normal Inspection. absent : Joint Swelling, Pedal Edema - Back Exam Back Exam: NORMAL INSPECTION - Neurological Exam Neurological Exam: Alert, Awake, CN II-XII Intact, Normal Gait, Oriented x3 - Psychiatric Exam Psychiatric exam: Normal Affect, Normal Mood - Skin Skin Exam: Dry, Intact, Normal Color, Warm Assessment and Plan (1) Altered mental status Assessment & Plan: Continue to Monitor Status: Resolved (2) Severe anemia S/P 6 Units of PRBCs, Hgb 9.0mg/dl Assessment & Plan: No New Complaint. H/H continue to be Low and on Iron Infusion. Monitor H/H Status: Acute (3) Hyperkalemia-Resolved Assessment & Plan: Monitor Status: Resolved (4) Acute on chronic renal failure, S/P Biopsy, Gross Hematuria- Worsening Status: Acute Monitor BMP IVF (5) New onset A-fib- Rate Controlled Status: Acute (6) Thrombocytosis- Improved Status: Acute Assessment and Plan (Free Text) (7) Eye Discharges Tobramycin oint. 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
[2018-03-31] MEDS: Tobramycin/Dexamethasone OPHT OINT OD SCH ×3 (06:22→22:02)
[2018-03-31 07:26] LABS: HEMOGLOBIN 7.8 g/dL (12.0-18.0); MEAN CELL VOLUME 78.6 fl (80.0-94.0); MEAN CORPUSCULAR HEMOGLOBIN 25.2 pg (27.0-31.0); MEAN CORPUSCULAR HGB CONC 32.1 g/dL (33.0-37.0); RBC 3.1 Mil/uL (4.40-5.90); RED CELL DISTRIBUTION WIDTH 26.6 % (11.5-14.5); WHITE BLOOD COUNT 14.3 K/uL (4.8-10.8)
[2018-03-31 07:49] LABS: ALB/GLOB RATIO 0.6 (1.0-2.1); ALBUMIN 2.2 g/dL (3.5-5.0); CALCIUM 8.2 mg/dL (8.4-10.2)
[2018-03-31] MEDS ORDERED: DiphenhydrAMINE 50 mg/ml Inj IVP STA (07:56)
[2018-03-31] MEDS: methylPREDNISolone 1 GM in Sodium Chloride 0.9% 250 ML IV SCH (08:34)
[2018-03-31] MEDS: Multivitamin Vitamin B Complex (Nephro-Vite) Tab PO SCH (08:35)
[2018-03-31] MEDS: Pantoprazole 40 mg EC Tab PO SCH (08:35)
[2018-03-31] MEDS: Metoprolol Succinate 25 mg XL Tab PO SCH (08:36)
--- NOTE | 2018-03-31 10:32 | CP.PCM.PN ---
Subjective - Date & Time of Evaluation Date of Evaluation: 03/31/18 Time of Evaluation: 10:34 - Subjective Subjective: Patient appears to be comfortable. Although hemoglobin dropping patient may need blood transfusion Will be decided by hematology. Worsening kidney function Vital signs stable Objective - Vital Signs/Intake and Output Vital Signs (last 24 hours): Temp Pulse Resp BP Pulse Ox 97.8 F 60 20 110/60 100 03/31/18 08:19 03/31/18 08:36 03/31/18 08:19 03/31/18 08:36 03/31/18 08:19 - Medications Medications: Current Medications Acetaminophen (Tylenol 325mg Tab) 650 mg PO Q6H PRN PRN Reason: Fever >100.4 F Epoetin Charles (Procrit) 10,000 unit SC TTS [facility] Last Admin: 03/29/18 11:07 Dose: Not Given Ergocalciferol (Drisdol 50,000 Intl Units Cap) 1 cap PO Q7D [facility] Finasteride (Proscar) 5 mg PO DAILY [facility] Last Admin: 03/31/18 08:36 Dose: 5 mg Fluticasone Propionate (Flonase) 1 spr [place] DAILY PRN PRN Reason: Nasal congestion Methylprednisolone 1 gm/ (Sodium Chloride) 250 mls @ 62.5 mls/hr IV DAILY [facility] Last Admin: 03/31/18 08:34 Dose: 62.5 mls/hr Metoprolol Succinate (Toprol Xl) 25 mg PO DAILY [facility] Last Admin: 03/31/18 08:36 Dose: 25 mg Ondansetron HCl (Zofran Inj) 4 mg IVP Q6H PRN PRN Reason: Nausea/Vomiting Pantoprazole Sodium (Protonix Ec Tab) 40 mg PO DAILY [facility] Last Admin: 03/31/18 08:35 Dose: 40 mg Sodium Bicarbonate (Sodium Bicarbonate Tab) 1,300 mg PO TID [facility] Last Admin: 03/31/18 08:35 Dose: 1,300 mg Tamsulosin HCl (Flomax) 0.4 mg PO QPM [facility] Last Admin: 03/30/18 17:00 Dose: 0.4 mg Tobramycin/Dexamethasone (Tobradex 0.3%-0.1% Opht Oint) 1 appl OD Q8H [facility] Last Admin: 03/31/18 06:22 Dose: 1 applic Vitamin B Complex/Vit C/Folic Acid (Nephro-Jj) 1 tab PO DAILY [facility] Last Admin: 03/31/18 08:35 Dose: 1 tab - Labs Labs: 03/31/18 07:00 03/31/18 07:00 PT 15.4 Seconds (9.8-13.1) H 03/29/18 02:17 INR 1.4 (0.9-1.2) H 03/29/18 02:17 APTT 25.7 Seconds (25.6-37.1) 03/25/18 10:26 - Constitutional Appears: No Acute Distress - ENT Exam ENT Exam: Mucous Membranes Moist - Neck Exam Neck Exam: absent: Lymphadenopathy - Respiratory Exam Respiratory Exam: NORMAL BREATHING PATTERN. absent: Chest Wall Tenderness - Cardiovascular Exam Cardiovascular Exam: absent: Gallop, JVD, Rubs - GI/Abdominal Exam GI & Abdominal Exam: Soft, Normal Bowel Sounds - Extremities Exam Extremities Exam: absent: Calf Tenderness - Back Exam Back Exam: absent: CVA tenderness (L), CVA tenderness (R) - Neurological Exam Neurological Exam: Alert - Psychiatric Exam Psychiatric exam: Normal Affect - Skin Skin Exam: absent: Cyanosis Assessment and Plan (1) Hyperkalemia Status: Resolved (2) Acute renal failure (ARF) Assessment & Plan: acute renal failure whether this went superimposed on chronic kidney disease is not clear however the kidney biopsy showed the following pathology on kidney biopsy results 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 And Cytoxan will be started explained to the patient whole side effec of the steroid and Cytoxan,including long-term use and short-term also including the side effect on the bladder and the stomac and waiting and everything else Status: Acute
[2018-03-31] MEDS: EPOETIN ALFA 10,000 UNIT/ML ML SC SCH (12:53)
--- NOTE | 2018-03-31 17:26 | CP.PCM.PN ---
Subjective - Date & Time of Evaluation Date of Evaluation: 03/31/18 Time of Evaluation: 12:15 - Subjective Subjective: Seen and examined at the bed side. Continue to have gross Hematuria. Azotemia continue to worsen. No sob or chest pain. Objective - Vital Signs/Intake and Output Vital Signs (last 24 hours): Temp Pulse Resp BP Pulse Ox 97.7 F 91 H 18 120/81 98 03/31/18 16:36 03/31/18 16:36 03/31/18 16:36 03/31/18 16:36 03/31/18 15:53 Intake and Output: 03/31/18 03/31/18 06:59 18:59 Intake Total 303 Balance 303 - Medications Medications: Current Medications Acetaminophen (Tylenol 325mg Tab) 650 mg PO Q6H PRN PRN Reason: Fever >100.4 F Epoetin Charles (Procrit) 10,000 unit SC TTS [facility] Last Admin: 03/31/18 12:53 Dose: 10,000 unit Ergocalciferol (Drisdol 50,000 Intl Units Cap) 1 cap PO Q7D [facility] Finasteride (Proscar) 5 mg PO DAILY [facility] Last Admin: 03/31/18 08:36 Dose: 5 mg Fluticasone Propionate (Flonase) 1 spr [place] DAILY PRN PRN Reason: Nasal congestion Methylprednisolone 1 gm/ (Sodium Chloride) 250 mls @ 62.5 mls/hr IV DAILY [facility] Last Admin: 03/31/18 08:34 Dose: 62.5 mls/hr Piperacillin Sod/Tazobactam (Sod 2.25 gm/ Sodium Chloride) 100 mls @ 100 mls/ hr IVPB Q12 [facility] PRN Reason: Protocol Last Admin: 03/31/18 13:29 Dose: 100 mls/hr Metoprolol Succinate (Toprol Xl) 25 mg PO DAILY [facility] Last Admin: 03/31/18 08:36 Dose: 25 mg Ondansetron HCl (Zofran Inj) 4 mg IVP Q6H PRN PRN Reason: Nausea/Vomiting Pantoprazole Sodium (Protonix Ec Tab) 40 mg PO DAILY [facility] Last Admin: 03/31/18 08:35 Dose: 40 mg Sodium Bicarbonate (Sodium Bicarbonate Tab) 1,300 mg PO TID [facility] Last Admin: 03/31/18 13:13 Dose: 1,300 mg Tamsulosin HCl (Flomax) 0.4 mg PO QPM [facility] Last Admin: 03/30/18 17:00 Dose: 0.4 mg Tobramycin/Dexamethasone (Tobradex 0.3%-0.1% Opht Oint) 1 appl OD Q8H [facility] Last Admin: 03/31/18 13:13 Dose: 1 applic Vitamin B Complex/Vit C/Folic Acid (Nephro-Jj) 1 tab PO DAILY [facility] Last Admin: 03/31/18 08:35 Dose: 1 tab - Labs Labs: 03/31/18 07:00 03/31/18 07:00 PT 15.4 Seconds (9.8-13.1) H 03/29/18 02:17 INR 1.4 (0.9-1.2) H 03/29/18 02:17 APTT 25.7 Seconds (25.6-37.1) 03/25/18 10:26 - Constitutional Appears: Well, No Acute Distress - Head Exam Head Exam: ATRAUMATIC, NORMAL INSPECTION, NORMOCEPHALIC - Eye Exam Eye Exam: EOMI, Normal appearance, PERRL Pupil Exam: NORMAL ACCOMODATION, PERRL - ENT Exam ENT Exam: Mucous Membranes Moist, Normal Exam - Neck Exam Neck Exam: Full ROM, Normal Inspection. absent: Lymphadenopathy - Respiratory Exam Respiratory Exam: Clear to Ausculation Bilateral, NORMAL BREATHING PATTERN - Cardiovascular Exam Cardiovascular Exam: REGULAR RHYTHM, +S1, +S2. absent: Murmur - GI/Abdominal Exam GI & Abdominal Exam: Soft, Normal Bowel Sounds. absent: Tenderness - Extremities Exam Extremities Exam: Joint Swelling, Pedal Edema, Tenderness Additional comments: B/L Ulcer with scaly exudative discharges - Back Exam Back Exam: NORMAL INSPECTION - Neurological Exam Neurological Exam: Abnormal Gait, Alert, Awake, CN II-XII Intact, Motor Sensory Deficit, Oriented x3 - Psychiatric Exam Psychiatric exam: Normal Affect, Normal Mood - Skin Skin Exam: Dry, Intact, Normal Color, Warm Assessment and Plan (1) Altered mental status Assessment & Plan: Continue to Monitor Status: Resolved (2) Severe anemia S/P 6 Units of PRBCs, Hgb 9.0mg/dl Assessment & Plan: No New Complaint. H/H continue to be Low and on Iron Infusion. Monitor H/H Status: Acute (3) Hyperkalemia-Resolved Assessment & Plan: Monitor Status: Resolved (4) Acute on chronic renal failure, S/P Biopsy, Gross Hematuria- Worsening Status: Acute Monitor BMP IVF (5) New onset A-fib- Rate Controlled Status: Acute (6) Thrombocytosis- Improved Status: Acute Assessment and Plan (Free Text) (7) Eye Discharges Tobramycin oint. 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
[2018-03-31 22:34] LABS: HEMOGLOBIN 9.5 g/dL (12.0-18.0); MEAN CELL VOLUME 79.4 fl (80.0-94.0); MEAN CORPUSCULAR HEMOGLOBIN 25.9 pg (27.0-31.0); MEAN CORPUSCULAR HGB CONC 32.6 g/dL (33.0-37.0); RBC 3.67 Mil/uL (4.40-5.90); RED CELL DISTRIBUTION WIDTH 25.2 % (11.5-14.5); WHITE BLOOD COUNT 11.2 K/uL (4.8-10.8)
[2018-04-01] MEDS: Tobramycin/Dexamethasone OPHT OINT OD SCH ×4 (05:42→22:40)
[2018-04-01 06:14] LABS: HEMOGLOBIN 9.3 g/dL (12.0-18.0); MEAN CELL VOLUME 79.6 fl (80.0-94.0); MEAN CORPUSCULAR HEMOGLOBIN 26.1 pg (27.0-31.0); MEAN CORPUSCULAR HGB CONC 32.8 g/dL (33.0-37.0); RBC 3.55 Mil/uL (4.40-5.90); RED CELL DISTRIBUTION WIDTH 25.3 % (11.5-14.5); WHITE BLOOD COUNT 10.7 K/uL (4.8-10.8)
[2018-04-01 06:23] LABS: CALCIUM 8.2 mg/dL (8.4-10.2)
[2018-04-01] MEDS: Metoprolol Succinate 25 mg XL Tab PO SCH (08:19)
[2018-04-01] MEDS: Multivitamin Vitamin B Complex (Nephro-Vite) Tab PO SCH (08:25)
[2018-04-01] MEDS: Pantoprazole 40 mg EC Tab PO SCH ×2 (08:26→09:33)
[2018-04-01] MEDS ORDERED: Dextrose 5%/0.9% NS 1,000 ML IV SCH (09:15)
[2018-04-01] MEDS ORDERED: Sod Polystyrene Sulf 15 gm/60 ml Susp PO ONE (09:15)
[2018-04-01] MEDS ORDERED: Albuterol 0.083% Inhal Sol (2.5 mg/3 mL) UD INH ONE (09:24)
[2018-04-01] MEDS: methylPREDNISolone 1 GM in Sodium Chloride 0.9% 250 ML IV SCH (11:00)
[2018-04-01] MEDS: Sodium Chloride 0.9% 1,000 ML IV SCH ×2 (11:11→23:00)
--- NOTE | 2018-04-01 11:13 | CP.PCM.PN ---
Subjective - Date & Time of Evaluation Date of Evaluation: 04/01/18 Time of Evaluation: 11:14 - Subjective Subjective: patient awake and conscious he does not appear to be in distress. Vital signs stable Still having what appeared to be tinged bloody urine Objective - Vital Signs/Intake and Output Vital Signs (last 24 hours): Temp Pulse Resp BP Pulse Ox 98.1 F 84 19 122/76 97 04/01/18 07:48 04/01/18 08:19 04/01/18 07:48 04/01/18 08:19 04/01/18 07:48 - Medications Medications: Current Medications Acetaminophen (Tylenol 325mg Tab) 650 mg PO Q6H PRN PRN Reason: Fever >100.4 F Epoetin Charles (Procrit) 10,000 unit SC TTS [facility] Last Admin: 03/31/18 12:53 Dose: 10,000 unit Ergocalciferol (Drisdol 50,000 Intl Units Cap) 1 cap PO Q7D [facility] Famotidine (Pepcid) 20 mg PO DAILY [facility] Finasteride (Proscar) 5 mg PO DAILY [facility] Last Admin: 04/01/18 09:33 Dose: 5 mg Fluticasone Propionate (Flonase) 1 spr [facility] DAILY PRN PRN Reason: Nasal congestion Methylprednisolone 1 gm/ (Sodium Chloride) 250 mls @ 62.5 mls/hr IV DAILY [facility] Last Admin: 04/01/18 11:00 Dose: 62.5 mls/hr Piperacillin Sod/Tazobactam (Sod 2.25 gm/ Sodium Chloride) 100 mls @ 100 mls/ hr IVPB Q12 [facility] PRN Reason: Protocol Last Admin: 04/01/18 08:22 Dose: 100 mls/hr Sodium Chloride (Sodium Chloride 0.9%) 1,000 mls @ 50 mls/hr IV .Q20H [facility] Stop: 04/02/18 10:59 Metoprolol Succinate (Toprol Xl) 25 mg PO DAILY [facility] Last Admin: 04/01/18 08:19 Dose: 25 mg Ondansetron HCl (Zofran Inj) 4 mg IVP Q6H PRN PRN Reason: Nausea/Vomiting Pantoprazole Sodium (Protonix Ec Tab) 40 mg PO DAILY [facility] Last Admin: 04/01/18 09:33 Dose: 40 mg Prednisone (Prednisone Tab) 60 mg PO DAILY [facility] Sodium Bicarbonate (Sodium Bicarbonate Tab) 1,300 mg PO TID [facility] Last Admin: 04/01/18 09:33 Dose: 1,300 mg Tamsulosin HCl (Flomax) 0.4 mg PO QPM [facility] Last Admin: 03/31/18 17:39 Dose: 0.4 mg Tobramycin/Dexamethasone (Tobradex 0.3%-0.1% Opht Oint) 1 appl OD Q8H [facility] Last Admin: 04/01/18 05:42 Dose: 1 applic Vitamin B Complex/Vit C/Folic Acid (Nephro-Jj) 1 tab PO DAILY [facility] Last Admin: 04/01/18 08:25 Dose: Not Given - Labs Labs: 04/01/18 06:00 04/01/18 06:00 PT 15.4 Seconds (9.8-13.1) H 03/29/18 02:17 INR 1.4 (0.9-1.2) H 03/29/18 02:17 APTT 25.7 Seconds (25.6-37.1) 03/25/18 10:26 - Constitutional Appears: No Acute Distress - Eye Exam Eye Exam: Conjunctival injection - ENT Exam ENT Exam: Mucous Membranes Dry - Neck Exam Neck Exam: absent: Lymphadenopathy - Cardiovascular Exam Cardiovascular Exam: REGULAR RHYTHM. absent: Rubs - GI/Abdominal Exam GI & Abdominal Exam: Soft, Normal Bowel Sounds - Extremities Exam Extremities Exam: Calf Tenderness - Neurological Exam Neurological Exam: Alert - Psychiatric Exam Psychiatric exam: Normal Affect - Skin Skin Exam: absent: Cyanosis Assessment and Plan (1) Hyperkalemia Status: Resolved (2) Acute renal failure (ARF) Assessment & Plan: acute renal failure whether this went superimposed on chronic kidney disease is not clear however the kidney biopsy showed the following worsening kidney function serum creatinine going up. 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 I discuss this treatment with the occupational psychologist I called the pharmacist and they're requesting approval from the administration first. And they're requesting also oncologist to give the medications and that the oncologist is aware to go ahead with the treatment Patient receiving Zosyn for urinary tract infection Giving Kayexalate for hyperkalemia Blood transfusion as needed Patient may need hemodialysis if creatinine continue to rise plasma phoresis to be considered but it's controversial whether it would make any difference? patient is going for cystoscope today CT scan of the abdomen pending report hyponatremia noted to change IV fluid to normal saline Status: Acute
[2018-04-01 12:00] LABS: CALCIUM 8.3 mg/dL (8.4-10.2)
--- NOTE | 2018-04-01 13:53 | CT ---
Date of service: 03/31/2018 PROCEDURE: CT Abdomen and Pelvis without intravenous contrast HISTORY: Hematuria, necrotizing glomerulonephritis COMPARISON: None. TECHNIQUE: Helical CT of the abdomen and pelvis was performed without oral or intravenous contrast as per referring physician request. Contrast dose: None Radiation dose: Total exam DLP = 552.86 mGy-cm. This CT exam was performed using one or more of the following dose reduction techniques: Automated exposure control, adjustment of the mA and/or kV according to patient size, and/or use of iterative reconstruction technique. FINDINGS: LOWER THORAX: Mild bilateral pleural effusions are identified. There is cardiomegaly but no definite pericardial effusion. Right middle and lower lobe pneumonitis is appreciated within nondependent lung with the left pulmonary base unremarkable. LIVER: Unremarkable. No gross lesion or ductal dilatation. GALLBLADDER AND BILE DUCTS: Unremarkable. PANCREAS: Unremarkable. No gross lesion or ductal dilatation. SPLEEN: Unremarkable. ADRENALS: Unremarkable. No mass. KIDNEYS AND URETERS: Nonspecific streaky perinephric changes are identified. No obstructive uropathy or radiodense urolithiasis. VASCULATURE: Unremarkable. No aortic aneurysm. BOWEL: Unremarkable. No obstruction. No gross mural thickening. APPENDIX: Potential prior appendectomy. No CT evidence of appendicitis. Clinically correlate further. PERITONEUM: Subtle hyperdensity seen throughout the intra abdominal as well as extra abdominal fat suspicious for anasarca. . No free fluid. No free air. LYMPH NODES: Unremarkable. No enlarged lymph nodes. BLADDER: The bladder is decompressed partially but though with a bit of gas and debris with emphysematous changes suspicious for potential abscess or necrotizing process. Mural thickening may indicate cystitis as well. Further clinical correlation recommended. Underlying neoplasm not excluded. REPRODUCTIVE: Unremarkable. BONES: Old healed left 11th rib fracture. OTHER FINDINGS: Tiny fat containing umbilical hernia identified. IMPRESSION: 1. Potential necrotizing process in urinary bladder or abscess. Clinically correlate further. No obstructive uropathy or radiodense urolithiasis bilaterally. Limited bilateral perinephric reactive change noted. 2. Anasarca. 3. Scattered inguinal iliac and pelvic lymphadenopathy. 4. Incidental bilateral pleural effusions and right middle and lower lobe pneumonitis. Concordant preliminary report from [facility], 03/31/2018.
--- NOTE | 2018-04-01 16:26 | RAD ---
Date of service: 04/01/2018 HISTORY: B/l infiltrates on CT scan, r/o pneumonia COMPARISON: 03/21/2018 TECHNIQUE: Chest PA and lateral FINDINGS: LUNGS: New perihilar, right upper lobe infiltrate. Interval improvement in left upper lobe infiltrate. PLEURA: No significant pleural effusion identified. No pneumothorax apparent. CARDIOVASCULAR: PICC line in satisfactory position OSSEOUS STRUCTURES: No significant abnormalities. VISUALIZED UPPER ABDOMEN: Normal. OTHER FINDINGS: None. IMPRESSION: Extensive consolidative changes primarily affecting right upper lobe consistent with acute pneumonia. Improvement without complete resolution left upper lobe infiltrate.
--- NOTE | 2018-04-01 18:45 | CP.PCM.PN ---
Subjective - Date & Time of Evaluation Date of Evaluation: 04/01/18 Time of Evaluation: 17:10 - Subjective Subjective: Continue to have Hematuria. Rescheduled for Cystoscopy for PM after it was cancelled this AM due to K=5.4. Azotemia is getting worsening. No fever or chills. No abdominal pain, N/V or constipation. Objective - Vital Signs/Intake and Output Vital Signs (last 24 hours): Temp Pulse Resp BP Pulse Ox 97.7 F 72 20 100/61 97 04/01/18 16:21 04/01/18 16:21 04/01/18 16:21 04/01/18 16:21 04/01/18 16:21 Intake and Output: 04/01/18 04/01/18 06:59 18:59 Intake Total 390 Output Total 3 Balance 387 - Medications Medications: Current Medications Acetaminophen (Tylenol 325mg Tab) 650 mg PO Q6H PRN PRN Reason: Fever >100.4 F Epoetin Charles (Procrit) 10,000 unit SC TTS [facility] Last Admin: 03/31/18 12:53 Dose: 10,000 unit Ergocalciferol (Drisdol 50,000 Intl Units Cap) 1 cap PO Q7D [facility] Famotidine (Pepcid) 20 mg PO DAILY [facility] Last Admin: 04/01/18 12:55 Dose: Not Given Finasteride (Proscar) 5 mg PO DAILY [facility] Last Admin: 04/01/18 09:33 Dose: 5 mg Fluticasone Propionate (Flonase) 1 spr [facility] DAILY PRN PRN Reason: Nasal congestion Methylprednisolone 1 gm/ (Sodium Chloride) 250 mls @ 62.5 mls/hr IV DAILY [facility] Last Admin: 04/01/18 11:00 Dose: 62.5 mls/hr Piperacillin Sod/Tazobactam (Sod 2.25 gm/ Sodium Chloride) 100 mls @ 100 mls/ hr IVPB Q12 [facility] PRN Reason: Protocol Last Admin: 04/01/18 08:22 Dose: 100 mls/hr Sodium Chloride (Sodium Chloride 0.9%) 1,000 mls @ 50 mls/hr IV .Q20H [facility] Stop: 04/02/18 10:59 Last Admin: 04/01/18 11:11 Dose: 50 mls/hr Metoprolol Succinate (Toprol Xl) 25 mg PO DAILY [facility] Last Admin: 04/01/18 08:19 Dose: 25 mg Ondansetron HCl (Zofran Inj) 4 mg IVP Q6H PRN PRN Reason: Nausea/Vomiting Pantoprazole Sodium (Protonix Ec Tab) 40 mg PO DAILY [facility] Last Admin: 04/01/18 09:33 Dose: 40 mg Prednisone (Prednisone Tab) 60 mg PO DAILY [facility] Sodium Bicarbonate (Sodium Bicarbonate Tab) 1,300 mg PO TID [facility] Last Admin: 04/01/18 16:12 Dose: Not Given Tamsulosin HCl (Flomax) 0.4 mg PO QPM [facility] Last Admin: 04/01/18 18:40 Dose: Not Given Tobramycin/Dexamethasone (Tobradex 0.3%-0.1% Opht Oint) 1 appl OD Q8H [facility] Last Admin: 04/01/18 13:49 Dose: 1 applic Vitamin B Complex/Vit C/Folic Acid (Nephro-Jj) 1 tab PO DAILY [facility] Last Admin: 04/01/18 08:25 Dose: Not Given - Labs Labs: 04/01/18 06:00 04/01/18 11:39 PT 15.4 Seconds (9.8-13.1) H 03/29/18 02:17 INR 1.4 (0.9-1.2) H 03/29/18 02:17 APTT 25.7 Seconds (25.6-37.1) 03/25/18 10:26 - Constitutional Appears: Well, No Acute Distress - Head Exam Head Exam: ATRAUMATIC, NORMAL INSPECTION, NORMOCEPHALIC - Eye Exam Eye Exam: EOMI, Normal appearance, PERRL Pupil Exam: NORMAL ACCOMODATION, PERRL - ENT Exam ENT Exam: Mucous Membranes Moist, Normal Exam - Neck Exam Neck Exam: Full ROM, Normal Inspection. absent: Lymphadenopathy - Respiratory Exam Respiratory Exam: Clear to Ausculation Bilateral, NORMAL BREATHING PATTERN - Cardiovascular Exam Cardiovascular Exam: REGULAR RHYTHM, +S1, +S2. absent: Murmur - GI/Abdominal Exam GI & Abdominal Exam: Soft, Normal Bowel Sounds. absent: Tenderness - Extremities Exam Extremities Exam: Full ROM, Normal Capillary Refill, Normal Inspection. absent : Joint Swelling, Pedal Edema - Back Exam Back Exam: NORMAL INSPECTION - Neurological Exam Neurological Exam: Alert, Awake, CN II-XII Intact, Normal Gait, Oriented x3 - Psychiatric Exam Psychiatric exam: Normal Affect, Normal Mood - Skin Skin Exam: Dry, Intact, Normal Color, Warm Assessment and Plan (1) Altered mental status Assessment & Plan: Continue to Monitor Status: Resolved (2) Severe anemia S/P 6 Units of PRBCs, Hgb 9.0mg/dl Assessment & Plan: No New Complaint. H/H continue to be Low and on Iron Infusion. Monitor H/H Status: Acute (3) Hyperkalemia-Resolved Assessment & Plan: Monitor Status: Resolved (4) Acute on chronic renal failure, S/P Biopsy, Gross Hematuria- Worsening Repeat K 4.7 from 5.4 Status: Acute Monitor BMP IVF Going for Cystotsopy (5) New onset A-fib- Rate Controlled Status: Acute (6) Thrombocytosis- Improved Status: Acute Assessment and Plan (Free Text) (7) Eye Discharges Tobramycin oint. Apply TID Continue Supportive Care Iron Infusion Nephrology recommended Kidney Biopsy [employer] on Board CBC CMP Status: Acute
[2018-04-01] MEDS ORDERED: Succinylcholine 200 mg/10 ml Inj IV ONE (19:40)
[2018-04-01] MEDS ORDERED: Etomidate 20 mg/10ml Inj IV ONE (19:41)
[2018-04-01] MEDS ORDERED: Sodium Chloride 0.9% 1,000 ML IV ONE (20:17)
[2018-04-01] MEDS ORDERED: Midazolam 2 MG/2 ML VIAL ONE (20:22)
[2018-04-01] MEDS ORDERED: Sodium Chloride 0.9% 500 ML IV ONE (21:00)
[2018-04-01] MEDS ORDERED: HYDROmorphone 0.5 mg/0.5 ml ISec IVP PRN (21:03)
[2018-04-02] MEDS: Tobramycin/Dexamethasone OPHT OINT OD SCH ×3 (04:31→21:35)
--- NOTE | 2018-04-02 05:26 | OP ---
Copied To: Yessy Jeffries MD Attending MD: Yessy Jeffries MD PROCEDURE DATE: 04/01/2018 PREOPERATIVE DIAGNOSES: Gross hematuria, hemorrhagic prostate. POSTOPERATIVE DIAGNOSES: Gross hematuria, hemorrhagic prostate. PROCEDURES PERFORMED: Cystoscopy, evacuation of clots, and transurethral resection of prostate. DESCRIPTION OF PROCEDURE: The patient was placed on the operating room table in dorsal lithotomy position. The area of the groin was draped and prepped in a sterile manner. He was given general anesthesia. At this time with a #24 continuous flow resectoscope, I entered into the bladder atraumatically; however at the level of the prostatic urethra, there was noted to be significant amount of bleeding. The tissue has a very unusual characteristic look about it, and I tried initially to cauterize it, but it just appeared that this needed to be resected, so I proceeded with a formal transurethral resection of the prostate. Margins were not clear. I did not see visual verumontanum. The bladder itself had about two tablespoons of clots, which were aspirated at the beginning of the procedure. I did not see any active bleeders happening within the bladder itself. Resection again of the prostate was completed. Then, I cauterized the prostatic urethral bed and inserted a #22 three-way Banks catheter. The initial output is a very faint pink. The patient is in recovery room and stable at this time. Yessy Jeffries MD
[2018-04-02] MEDS: Sodium Chloride 0.9% 1,000 ML IV SCH ×4 (06:35→18:07)
[2018-04-02 06:55] LABS: HEMOGLOBIN 9.6 g/dL (12.0-18.0); MEAN CELL VOLUME 79.6 fl (80.0-94.0); MEAN CORPUSCULAR HEMOGLOBIN 26.6 pg (27.0-31.0); MEAN CORPUSCULAR HGB CONC 33.4 g/dL (33.0-37.0); RBC 3.62 Mil/uL (4.40-5.90); RED CELL DISTRIBUTION WIDTH 25.7 % (11.5-14.5); WHITE BLOOD COUNT 8.7 K/uL (4.8-10.8)
[2018-04-02 07:03] LABS: ALB/GLOB RATIO 0.7 (1.0-2.1); ALBUMIN 2.2 g/dL (3.5-5.0); CALCIUM 7.9 mg/dL (8.4-10.2)
[2018-04-02] MEDS: Pantoprazole 40 mg EC Tab PO SCH (08:53)
[2018-04-02] MEDS: Multivitamin Vitamin B Complex (Nephro-Vite) Tab PO SCH (08:53)
[2018-04-02] MEDS: Metoprolol Succinate 25 mg XL Tab PO SCH (08:54)
[2018-04-02] MEDS: EPOETIN ALFA 10,000 UNIT/ML ML SC SCH (12:29)
--- NOTE | 2018-04-02 16:19 | CP.PCM.PN ---
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 s/p pulse steroids now on 60 mg pred, needs induction therapy. awaiting for approval for rituxan. f/u re: turp prbc per primary team bp stable k stable Objective - Vital Signs/Intake and Output Vital Signs (last 24 hours): Temp Pulse Resp BP Pulse Ox 97.8 F 77 20 112/72 99 04/02/18 16:07 04/02/18 16:07 04/02/18 16:07 04/02/18 16:07 04/02/18 16:07 Intake and Output: 04/02/18 04/02/18 06:59 18:59 Intake Total 300 Output Total 400 Balance -100 - Medications Medications: Current Medications Acetaminophen (Tylenol 325mg Tab) 650 mg PO Q6H PRN PRN Reason: Fever >100.4 F Epoetin Charles (Procrit) 10,000 unit SC TTS [facility] Last Admin: 04/02/18 12:29 Dose: 10,000 unit Ergocalciferol (Drisdol 50,000 Intl Units Cap) 1 cap PO Q7D [facility] Famotidine (Pepcid) 20 mg PO DAILY [facility] Last Admin: 04/02/18 08:53 Dose: 20 mg Finasteride (Proscar) 5 mg PO DAILY [facility] Last Admin: 04/02/18 08:53 Dose: 5 mg Fluticasone Propionate (Flonase) 1 spr [facility] DAILY PRN PRN Reason: Nasal congestion Piperacillin Sod/Tazobactam (Sod 2.25 gm/ Sodium Chloride) 100 mls @ 100 mls/ hr IVPB Q12 [facility] PRN Reason: Protocol Last Admin: 04/02/18 09:57 Dose: 100 mls/hr Sodium Chloride (Sodium Chloride 0.9%) 1,000 mls @ 100 mls/hr IV .Q10H [facility] Last Admin: 04/02/18 09:56 Dose: 100 mls/hr Metoprolol Succinate (Toprol Xl) 25 mg PO DAILY [facility] Last Admin: 04/02/18 08:54 Dose: 25 mg Ondansetron HCl (Zofran Inj) 4 mg IVP Q6H PRN PRN Reason: Nausea/Vomiting Pantoprazole Sodium (Protonix Ec Tab) 40 mg PO DAILY [facility] Last Admin: 04/02/18 08:53 Dose: 40 mg Prednisone (Prednisone Tab) 60 mg PO DAILY [facility] Last Admin: 04/02/18 08:53 Dose: 60 mg Sodium Bicarbonate (Sodium Bicarbonate Tab) 1,300 mg PO TID [facility] Last Admin: 04/02/18 13:00 Dose: 1,300 mg Tamsulosin HCl (Flomax) 0.4 mg PO QPM [facility] Last Admin: 04/01/18 18:40 Dose: Not Given Tobramycin/Dexamethasone (Tobradex 0.3%-0.1% Opht Oint) 1 appl OD Q8H [facility] Last Admin: 04/02/18 12:30 Dose: 1 applic Vitamin B Complex/Vit C/Folic Acid (Nephro-Jj) 1 tab PO DAILY [facility] Last Admin: 04/02/18 08:53 Dose: 1 tab - Labs Labs: 04/02/18 05:30 04/02/18 05:30 PT 15.4 Seconds (9.8-13.1) H 03/29/18 02:17 INR 1.4 (0.9-1.2) H 03/29/18 02:17 APTT 25.7 Seconds (25.6-37.1) 03/25/18 10:26
--- NOTE | 2018-04-02 21:47 | CP.PCM.PN ---
Subjective - Date & Time of Evaluation Date of Evaluation: 04/02/18 Time of Evaluation: 17:35 Objective - Vital Signs/Intake and Output Vital Signs (last 24 hours): Temp Pulse Resp BP Pulse Ox 97.8 F 77 20 112/72 99 04/02/18 16:07 04/02/18 16:07 04/02/18 16:07 04/02/18 16:07 04/02/18 16:07 Intake and Output: 04/02/18 04/03/18 18:59 06:59 Intake Total 86348 Output Total 36668 Balance -1000 - Medications Medications: Current Medications Acetaminophen (Tylenol 325mg Tab) 650 mg PO Q6H PRN PRN Reason: Fever >100.4 F Epoetin Charles (Procrit) 10,000 unit SC TTS [facility] Last Admin: 04/02/18 12:29 Dose: 10,000 unit Ergocalciferol (Drisdol 50,000 Intl Units Cap) 1 cap PO Q7D [facility] Famotidine (Pepcid) 20 mg PO DAILY [facility] Last Admin: 04/02/18 08:53 Dose: 20 mg Finasteride (Proscar) 5 mg PO DAILY [facility] Last Admin: 04/02/18 08:53 Dose: 5 mg Fluticasone Propionate (Flonase) 1 spr [facility] DAILY PRN PRN Reason: Nasal congestion Piperacillin Sod/Tazobactam (Sod 2.25 gm/ Sodium Chloride) 100 mls @ 100 mls/ hr IVPB Q12 [facility] PRN Reason: Protocol Last Admin: 04/02/18 21:24 Dose: 100 mls/hr Sodium Chloride (Sodium Chloride 0.9%) 1,000 mls @ 100 mls/hr IV .Q10H [facility] Last Admin: 04/02/18 18:07 Dose: Not Given Metoprolol Succinate (Toprol Xl) 25 mg PO DAILY [facility] Last Admin: 04/02/18 08:54 Dose: 25 mg Ondansetron HCl (Zofran Inj) 4 mg IVP Q6H PRN PRN Reason: Nausea/Vomiting Pantoprazole Sodium (Protonix Ec Tab) 40 mg PO DAILY [facility] Last Admin: 04/02/18 08:53 Dose: 40 mg Prednisone (Prednisone Tab) 60 mg PO DAILY [facility] Last Admin: 04/02/18 08:53 Dose: 60 mg Sodium Bicarbonate (Sodium Bicarbonate Tab) 1,300 mg PO TID [facility] Last Admin: 04/02/18 17:04 Dose: 1,300 mg Tamsulosin HCl (Flomax) 0.4 mg PO QPM [facility] Last Admin: 04/02/18 17:04 Dose: 0.4 mg Tobramycin/Dexamethasone (Tobradex 0.3%-0.1% Opht Oint) 1 appl OD Q8H [facility] Last Admin: 04/02/18 21:35 Dose: 1 applic Vitamin B Complex/Vit C/Folic Acid (Nephro-Jj) 1 tab PO DAILY [facility] Last Admin: 04/02/18 08:53 Dose: 1 tab - Labs Labs: 04/02/18 05:30 04/02/18 05:30 PT 15.4 Seconds (9.8-13.1) H 03/29/18 02:17 INR 1.4 (0.9-1.2) H 03/29/18 02:17 APTT 25.7 Seconds (25.6-37.1) 03/25/18 10:26 Assessment and Plan (1) Altered mental status Assessment & Plan: Continue to Monitor Status: Resolved (2) Severe anemia S/P 6 Units of PRBCs, Hgb 9.0mg/dl Assessment & Plan: No New Complaint. H/H continue to be Low and on Iron Infusion. Monitor H/H Status: Acute (3) Hyperkalemia-Resolved Assessment & Plan: Monitor Status: Resolved (4) Acute on chronic renal failure, S/P Biopsy, Gross Hematuria- Worsening Repeat K 4.7 from 5.4 Status: Acute Monitor BMP IVF Going for Cystotsopy (5) New onset A-fib- Rate Controlled Status: Acute (6) Thrombocytosis- Improved Status: Acute
[2018-04-03] MEDS: Tobramycin/Dexamethasone OPHT OINT OD SCH ×3 (04:48→22:44)
[2018-04-03] MEDS: Sodium Chloride 0.9% 1,000 ML IV SCH (04:50)
[2018-04-03] MEDS: Metoprolol Succinate 25 mg XL Tab PO SCH (09:29)
[2018-04-03] MEDS: Pantoprazole 40 mg EC Tab PO SCH (09:29)
[2018-04-03] MEDS: Ergocalciferol 50,000 Intl Units Cap PO SCH (09:30)
[2018-04-03] MEDS: Multivitamin Vitamin B Complex (Nephro-Vite) Tab PO SCH (09:30)
[2018-04-03 15:07] LABS: HEMOGLOBIN 10.2 g/dL (12.0-18.0); MEAN CELL VOLUME 81.2 fl (80.0-94.0); MEAN CORPUSCULAR HEMOGLOBIN 26.7 pg (27.0-31.0); MEAN CORPUSCULAR HGB CONC 32.9 g/dL (33.0-37.0); RBC 3.82 Mil/uL (4.40-5.90); WHITE BLOOD COUNT 12.4 K/uL (4.8-10.8)
[2018-04-03 15:18] LABS: CALCIUM 7.2 mg/dL (8.4-10.2)
--- NOTE | 2018-04-04 00:26 | CP.PCM.PN ---
Subjective - Date & Time of Evaluation Date of Evaluation: 04/03/18 Time of Evaluation: 15:40 Objective - Vital Signs/Intake and Output Vital Signs (last 24 hours): Temp Pulse Resp BP Pulse Ox 98 F 80 20 118/71 97 04/03/18 16:32 04/03/18 16:32 04/03/18 16:32 04/03/18 16:32 04/03/18 16:32 Intake and Output: 04/03/18 04/04/18 18:59 06:59 Intake Total 6500 Output Total 6600 1800 Balance -100 -1800 - Medications Medications: Current Medications Acetaminophen (Tylenol 325mg Tab) 650 mg PO Q6H PRN PRN Reason: Fever >100.4 F Epoetin [facility] (Procrit) 10,000 unit SC TTS [facility] Last Admin: 04/02/18 12:29 Dose: 10,000 unit Ergocalciferol (Drisdol 50,000 Intl Units Cap) 1 cap PO Q7D [facility] Last Admin: 04/03/18 09:30 Dose: 1 cap Famotidine (Pepcid) 20 mg PO DAILY [facility] Last Admin: 04/03/18 09:31 Dose: 20 mg Finasteride (Proscar) 5 mg PO DAILY [facility] Last Admin: 04/03/18 09:30 Dose: 5 mg Fluticasone Propionate (Flonase) 1 spr [facility] DAILY PRN PRN Reason: Nasal congestion Piperacillin Sod/Tazobactam (Sod 2.25 gm/ Sodium Chloride) 100 mls @ 100 mls/ hr IVPB Q12 [facility] PRN Reason: Protocol Last Admin: 04/03/18 22:43 Dose: 100 mls/hr Sodium Chloride (Sodium Chloride 0.9%) 1,000 mls @ 100 mls/hr IV .Q10H [facility] Last Admin: 04/03/18 04:50 Dose: 100 mls/hr Metoprolol Succinate (Toprol Xl) 25 mg PO DAILY [facility] Last Admin: 04/03/18 09:29 Dose: 25 mg Ondansetron HCl (Zofran Inj) 4 mg IVP Q6H PRN PRN Reason: Nausea/Vomiting Pantoprazole Sodium (Protonix Ec Tab) 40 mg PO DAILY [facility] Last Admin: 04/03/18 09:29 Dose: 40 mg Prednisone (Prednisone Tab) 60 mg PO DAILY [facility] Last Admin: 04/03/18 09:30 Dose: 60 mg Sodium Bicarbonate (Sodium Bicarbonate Tab) 1,300 mg PO TID [facility] Last Admin: 04/03/18 16:36 Dose: 1,300 mg Tamsulosin HCl (Flomax) 0.4 mg PO QPM [facility] Last Admin: 04/03/18 17:56 Dose: 0.4 mg Tobramycin/Dexamethasone (Tobradex 0.3%-0.1% Opht Oint) 1 appl OD Q8H [facility] Last Admin: 04/03/18 22:44 Dose: 1 applic Vitamin B Complex/Vit C/Folic Acid (Nephro-Jj) 1 tab PO DAILY [facility] Last Admin: 04/03/18 09:30 Dose: 1 tab - Labs Labs: 04/03/18 14:30 04/03/18 14:30 PT 15.4 Seconds (9.8-13.1) H 03/29/18 02:17 INR 1.4 (0.9-1.2) H 03/29/18 02:17 APTT 25.7 Seconds (25.6-37.1) 03/25/18 10:26 Assessment and Plan (1) Altered mental status Assessment & Plan: Continue to Monitor Status: Resolved (2) Severe anemia S/P 6 Units of PRBCs, Hgb 9.0mg/dl Assessment & Plan: No New Complaint. H/H continue to be Low and on Iron Infusion. Monitor H/H Status: Acute (3) Hyperkalemia-Resolved Assessment & Plan: Monitor Status: Resolved (4) Acute on chronic renal failure, S/P Biopsy, Gross Hematuria- Worsening Repeat K 4.7 from 5.4 Status: Acute Monitor BMP IVF Going for Cystotsopy (5) New onset A-fib- Rate Controlled Status: Acute (6) Thrombocytosis- Improved Status: Acute
[2018-04-04] MEDS: Sodium Chloride 0.9% 1,000 ML IV SCH ×4 (04:52→19:58)
[2018-04-04] MEDS: Tobramycin/Dexamethasone OPHT OINT OD SCH ×3 (04:52→21:04)
[2018-04-04] MEDS: Multivitamin Vitamin B Complex (Nephro-Vite) Tab PO SCH (08:39)
[2018-04-04] MEDS: Metoprolol Succinate 25 mg XL Tab PO SCH (08:39)
[2018-04-04] MEDS: Pantoprazole 40 mg EC Tab PO SCH (08:39)
--- NOTE | 2018-04-04 10:16 | CP.PCM.PN ---
Subjective - Date & Time of Evaluation Date of Evaluation: 04/04/18 Time of Evaluation: 10:18 - Subjective Subjective: patient is conscious and alert sitting up not in acute distress. No nausea no vomiting patient has a bladder irrigation Objective - Vital Signs/Intake and Output Vital Signs (last 24 hours): Temp Pulse Resp BP Pulse Ox 97.6 F 88 20 112/74 99 04/04/18 08:02 04/04/18 08:39 04/04/18 08:02 04/04/18 08:39 04/04/18 08:02 Intake and Output: 04/04/18 04/04/18 06:59 18:59 Intake Total 1200 Output Total 1800 Balance -600 - Medications Medications: Current Medications Acetaminophen (Tylenol 325mg Tab) 650 mg PO Q6H PRN PRN Reason: Fever >100.4 F Epoetin Charles (Procrit) 10,000 unit SC TTS [facility] Last Admin: 04/02/18 12:29 Dose: 10,000 unit Ergocalciferol (Drisdol 50,000 Intl Units Cap) 1 cap PO Q7D [facility] Last Admin: 04/03/18 09:30 Dose: 1 cap Famotidine (Pepcid) 20 mg PO DAILY [facility] Last Admin: 04/04/18 08:39 Dose: 20 mg Finasteride (Proscar) 5 mg PO DAILY [facility] Last Admin: 04/04/18 08:39 Dose: 5 mg Fluticasone Propionate (Flonase) 1 spr [facility] DAILY PRN PRN Reason: Nasal congestion Piperacillin Sod/Tazobactam (Sod 2.25 gm/ Sodium Chloride) 100 mls @ 100 mls/ hr IVPB Q12 [facility] PRN Reason: Protocol Last Admin: 04/04/18 08:38 Dose: 100 mls/hr Sodium Chloride (Sodium Chloride 0.9%) 1,000 mls @ 100 mls/hr IV .Q10H [facility] Last Admin: 04/04/18 08:40 Dose: Not Given Metoprolol Succinate (Toprol Xl) 25 mg PO DAILY [facility] Last Admin: 04/04/18 08:39 Dose: 25 mg Ondansetron HCl (Zofran Inj) 4 mg IVP Q6H PRN PRN Reason: Nausea/Vomiting Pantoprazole Sodium (Protonix Ec Tab) 40 mg PO DAILY [facility] Last Admin: 04/04/18 08:39 Dose: 40 mg Prednisone (Prednisone Tab) 60 mg PO DAILY [facility] Last Admin: 04/04/18 08:39 Dose: 60 mg Sodium Bicarbonate (Sodium Bicarbonate Tab) 1,300 mg PO TID [facility] Last Admin: 04/04/18 08:39 Dose: 1,300 mg Tamsulosin HCl (Flomax) 0.4 mg PO QPM [facility] Last Admin: 04/03/18 17:56 Dose: 0.4 mg Tobramycin/Dexamethasone (Tobradex 0.3%-0.1% Opht Oint) 1 appl OD Q8H [facility] Last Admin: 04/04/18 04:52 Dose: 1 applic Vitamin B Complex/Vit C/Folic Acid (Nephro-Jj) 1 tab PO DAILY [facility] Last Admin: 04/04/18 08:39 Dose: 1 tab - Labs Labs: 04/03/18 14:30 04/03/18 14:30 PT 15.4 Seconds (9.8-13.1) H 03/29/18 02:17 INR 1.4 (0.9-1.2) H 03/29/18 02:17 APTT 25.7 Seconds (25.6-37.1) 03/25/18 10:26 - Constitutional Appears: No Acute Distress - ENT Exam ENT Exam: Mucous Membranes Moist - Neck Exam Neck Exam: absent: Lymphadenopathy - Respiratory Exam Respiratory Exam: absent: Chest Wall Tenderness - GI/Abdominal Exam GI & Abdominal Exam: Soft, Normal Bowel Sounds - Extremities Exam Extremities Exam: absent: Calf Tenderness - Back Exam Back Exam: absent: CVA tenderness (L), CVA tenderness (R) - Neurological Exam Neurological Exam: Alert - Skin Skin Exam: absent: Cyanosis Assessment and Plan (1) Hyperkalemia Status: Resolved (2) Acute renal failure (ARF) Assessment & Plan: pathology on 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 Consistent with [place] perhaps. Chest x-ray noted with pneumonia. And pleural effusion. I suggest pulmonary consult Status post TURP anemia Acute kidney failure? Whether this is superimposed on chronic kidney disease him not sure. Plan and recommendation I spoke to this morning waiting to give rituximab Prednisone by mouth Hyperphosphatemia add calcium acetate urine tract infection patient receiving Zosyn follow-up with the urine culture in few days Lasix 40 mg daily patient has what appeared to be some ascites and pleural effusion Status: Acute
--- NOTE | 2018-04-04 12:03 | CT ---
Date of service: 04/04/2018 PROCEDURE: CT Chest without contrast HISTORY: Pneumonia COMPARISON: 04/01/2018 single-view chest. 03/31/2018 CT abdomen includes lower thorax. TECHNIQUE: Contiguous axial images were obtained through the chest without intravenous contrast enhancement. Sagittal and coronal reconstructions were performed. Radiation dose (DLP): 558.90 mGy-cm. This CT exam was performed using one or more of the following dose reduction techniques: Automated exposure control, adjustment of the mA and/or kV according to patient size, and/or use of iterative reconstruction technique. FINDINGS: LUNGS: Multifocal infiltrates affecting right upper lobe, right middle lobe and right lower lobe. 5 mm peripheral nodule right upper lobe. Additional smaller infiltrates affecting anterior segment of the left upper lobe. There is an area of scarring/mass pleural-based posterior segment left upper lobe. Mass or focus of rounded atelectasis superior segment left lower lobe measuring 10 x 13 mm. Compressive atelectasis at the lung bases related to small bilateral pleural effusions. MEDIASTINUM: Unremarkable thoracic aorta. No aneurysm. Normal sized heart. Main pulmonary artery unremarkable. No vascular congestion. Calcified subcarinal lymph nodes. PLEURA: Small bilateral pleural effusions, findings identified prior CT of the abdomen and pelvis. BONES: No fracture. No destructive lesion. UPPER ABDOMEN: Grossly unremarkable. OTHER FINDINGS: Diffuse edema and anasarca. IMPRESSION: 1. Multifocal bilateral pulmonary alveolar infiltrates right greater than left. 2. Focal areas scarring/ mass right upper lobe. 3. Bilateral pulmonary nodules described in greater detail above. 4. Bilateral pleural effusions which are small and approximately symmetrical.
[2018-04-04] MEDS: Azithromycin 500 MG in Sodium Chloride 0.9% 250 ML IVPB SCH (12:40)
[2018-04-04] MEDS: Calcium Acetate 667 MG Capsule PO SCH ×2 (12:42→17:38)
--- NOTE | 2018-04-04 22:13 | CP.PCM.PN ---
Subjective - Date & Time of Evaluation Date of Evaluation: 04/04/18 Time of Evaluation: 18:00 - Subjective Subjective: No complaints. Objective - Vital Signs/Intake and Output Vital Signs (last 24 hours): Temp Pulse Resp BP Pulse Ox 97.8 F 90 20 113/74 98 04/04/18 16:11 04/04/18 16:11 04/04/18 16:11 04/04/18 16:11 04/04/18 16:11 - Medications Medications: Current Medications Acetaminophen (Tylenol 325mg Tab) 650 mg PO Q6H PRN PRN Reason: Fever >100.4 F Calcium Acetate (Phoslo) 1,334 mg PO WM [facility] Last Admin: 04/04/18 17:38 Dose: 1,334 mg Epoetin Charles (Procrit) 10,000 unit SC TTS [facility] Last Admin: 04/02/18 12:29 Dose: 10,000 unit Ergocalciferol (Drisdol 50,000 Intl Units Cap) 1 cap PO Q7D [facility] Last Admin: 04/03/18 09:30 Dose: 1 cap Famotidine (Pepcid) 20 mg PO DAILY [facility] Last Admin: 04/04/18 08:39 Dose: 20 mg Finasteride (Proscar) 5 mg PO DAILY [facility] Last Admin: 04/04/18 08:39 Dose: 5 mg Fluticasone Propionate (Flonase) 1 spr [facility] DAILY PRN PRN Reason: Nasal congestion Piperacillin Sod/Tazobactam (Sod 2.25 gm/ Sodium Chloride) 100 mls @ 100 mls/ hr IVPB Q12 [facility] PRN Reason: Protocol Last Admin: 04/04/18 21:03 Dose: 100 mls/hr Sodium Chloride (Sodium Chloride 0.9%) 1,000 mls @ 100 mls/hr IV .Q10H [facility] Last Admin: 04/04/18 19:58 Dose: Not Given Azithromycin 500 mg/ Sodium (Chloride) 250 mls @ 250 mls/hr IVPB DAILY [facility] PRN Reason: Protocol Last Admin: 04/04/18 12:40 Dose: 250 mls/hr Metoprolol Succinate (Toprol Xl) 25 mg PO DAILY [facility] Last Admin: 04/04/18 08:39 Dose: 25 mg Pantoprazole Sodium (Protonix Ec Tab) 40 mg PO DAILY [facility] Last Admin: 04/04/18 08:39 Dose: 40 mg Prednisone (Prednisone Tab) 60 mg PO DAILY [facility] Last Admin: 04/04/18 08:39 Dose: 60 mg Sodium Bicarbonate (Sodium Bicarbonate Tab) 1,300 mg PO TID [facility] Last Admin: 04/04/18 17:38 Dose: 1,300 mg Tamsulosin HCl (Flomax) 0.4 mg PO QPM [facility] Last Admin: 04/04/18 17:38 Dose: 0.4 mg Tobramycin/Dexamethasone (Tobradex 0.3%-0.1% Opht Oint) 1 appl OD Q8H [facility] Last Admin: 04/04/18 21:04 Dose: 1 applic Vitamin B Complex/Vit C/Folic Acid (Nephro-Jj) 1 tab PO DAILY [facility] Last Admin: 04/04/18 08:39 Dose: 1 tab - Labs Labs: 04/03/18 14:30 04/03/18 14:30 PT 15.4 Seconds (9.8-13.1) H 03/29/18 02:17 INR 1.4 (0.9-1.2) H 03/29/18 02:17 APTT 25.7 Seconds (25.6-37.1) 03/25/18 10:26 - Head Exam Head Exam: ATRAUMATIC - Eye Exam Eye Exam: Normal appearance - ENT Exam ENT Exam: Mucous Membranes Dry - Respiratory Exam Respiratory Exam: NORMAL BREATHING PATTERN - Cardiovascular Exam Cardiovascular Exam: +S1, +S2 - GI/Abdominal Exam GI & Abdominal Exam: Normal Bowel Sounds Assessment and Plan (1) Anemia Assessment & Plan: s/p IV venofer for iron deficiency Procit for anemia of CKD Case discussed with Dr. Bernabe; requesting Rituximab 1000mg IV x 1 as inpatient for glomerulonephritis will help facilitate; awaiting admin approval Status: Acute
[2018-04-05] MEDS: Sodium Chloride 0.9% 1,000 ML IV SCH ×3 (05:15→17:03)
[2018-04-05] MEDS: Tobramycin/Dexamethasone OPHT OINT OD SCH ×3 (05:40→21:50)
[2018-04-05] MEDS: Calcium Acetate 667 MG Capsule PO SCH ×3 (08:17→18:21)
[2018-04-05] MEDS: Metoprolol Succinate 25 mg XL Tab PO SCH (08:19)
[2018-04-05] MEDS: Pantoprazole 40 mg EC Tab PO SCH (08:19)
[2018-04-05] MEDS: Multivitamin Vitamin B Complex (Nephro-Vite) Tab PO SCH (08:19)
[2018-04-05] MEDS: Azithromycin 500 MG in Sodium Chloride 0.9% 250 ML IVPB SCH (08:22)
[2018-04-05] MEDS: EPOETIN ALFA 10,000 UNIT/ML ML SC SCH (08:26)
--- NOTE | 2018-04-05 10:25 | CP.PCM.PN ---
Subjective - Date & Time of Evaluation Date of Evaluation: 04/04/18 Time of Evaluation: 20:25 Objective - Vital Signs/Intake and Output Vital Signs (last 24 hours): Temp Pulse Resp BP Pulse Ox 97.5 F L 91 H 19 137/79 98 04/05/18 08:13 04/05/18 08:13 04/05/18 08:13 04/05/18 08:13 04/05/18 08:13 Intake and Output: 04/05/18 04/05/18 06:59 18:59 Intake Total 1350 Balance 1350 - Medications Medications: Current Medications Acetaminophen (Tylenol 325mg Tab) 650 mg PO Q6H PRN PRN Reason: Fever >100.4 F Calcium Acetate (Phoslo) 1,334 mg PO WM [facility] Epoetin Charles (Procrit) 10,000 unit SC TTS [facility] Last Admin: 04/05/18 08:26 Dose: 10,000 unit Ergocalciferol (Drisdol 50,000 Intl Units Cap) 1 cap PO Q7D [facility] Last Admin: 04/03/18 09:30 Dose: 1 cap Famotidine (Pepcid) 20 mg PO DAILY [facility] Last Admin: 04/05/18 08:19 Dose: 20 mg Finasteride (Proscar) 5 mg PO DAILY [facility] Last Admin: 04/05/18 08:19 Dose: 5 mg Fluticasone Propionate (Flonase) 1 spr [place] DAILY PRN PRN Reason: Nasal congestion Piperacillin Sod/Tazobactam (Sod 2.25 gm/ Sodium Chloride) 100 mls @ 100 mls/ hr IVPB Q12 [facility] PRN Reason: Protocol Last Admin: 04/05/18 08:22 Dose: 100 mls/hr Sodium Chloride (Sodium Chloride 0.9%) 1,000 mls @ 100 mls/hr IV .Q10H [facility] Last Admin: 04/05/18 05:43 Dose: 100 mls/hr Azithromycin 500 mg/ Sodium (Chloride) 250 mls @ 250 mls/hr IVPB DAILY [facility] PRN Reason: Protocol Last Admin: 04/05/18 08:22 Dose: 250 mls/hr Metoprolol Succinate (Toprol Xl) 25 mg PO DAILY [facility] Last Admin: 04/05/18 08:19 Dose: 25 mg Pantoprazole Sodium (Protonix Ec Tab) 40 mg PO DAILY [facility] Last Admin: 04/05/18 08:19 Dose: 40 mg Prednisone (Prednisone Tab) 60 mg PO DAILY [facility] Last Admin: 04/05/18 08:16 Dose: 60 mg Sodium Bicarbonate (Sodium Bicarbonate Tab) 1,300 mg PO TID [facility] Last Admin: 04/05/18 08:18 Dose: 1,300 mg Tamsulosin HCl (Flomax) 0.4 mg PO QPM [facility] Last Admin: 04/04/18 17:38 Dose: 0.4 mg Tobramycin/Dexamethasone (Tobradex 0.3%-0.1% Opht Oint) 1 appl OD Q8H [facility] Last Admin: 04/05/18 05:40 Dose: 1 applic Vitamin B Complex/Vit C/Folic Acid (Nephro-Jj) 1 tab PO DAILY [facility] Last Admin: 04/05/18 08:19 Dose: 1 tab - Labs Labs: 04/03/18 14:30 04/03/18 14:30 PT 15.4 Seconds (9.8-13.1) H 03/29/18 02:17 INR 1.4 (0.9-1.2) H 03/29/18 02:17 APTT 25.7 Seconds (25.6-37.1) 03/25/18 10:26 Assessment and Plan (1) Altered mental status Assessment & Plan: Continue to Monitor Status: Resolved (2) Severe anemia S/P 6 Units of PRBCs, Hgb 9.0mg/dl Assessment & Plan: No New Complaint. H/H continue to be Low and on Iron Infusion. Monitor H/H Status: Acute (3) Hyperkalemia-Resolved Assessment & Plan: Monitor Status: Resolved (4) Acute on chronic renal failure, S/P Biopsy, Gross Hematuria- Worsening Repeat K 4.7 from 5.4 Status: Acute Monitor BMP IVF Going for Cystotsopy (5) New onset A-fib- Rate Controlled Status: Acute (6) Thrombocytosis- Improved Status: Acute
[2018-04-05] MEDS ORDERED: SODIUM CHLORIDE 0.9% IVPB ONE (10:39)
[2018-04-05] MEDS ORDERED: DIPHENHYDRAMINE IVPB ONE (10:39)
--- NOTE | 2018-04-05 11:01 | CP.PCM.PN ---
Subjective - Date & Time of Evaluation Date of Evaluation: 04/05/18 Time of Evaluation: 10:58 - Subjective Subjective: patient M bed appears to be comfortable complaining of some shortness of breath. And leg edema Objective - Vital Signs/Intake and Output Vital Signs (last 24 hours): Temp Pulse Resp BP Pulse Ox 97.5 F L 91 H 19 137/79 98 04/05/18 08:13 04/05/18 08:13 04/05/18 08:13 04/05/18 08:13 04/05/18 08:13 Intake and Output: 04/05/18 04/05/18 06:59 18:59 Intake Total 1350 Balance 1350 - Medications Medications: Current Medications Acetaminophen (Tylenol 325mg Tab) 650 mg PO Q6H PRN PRN Reason: Fever >100.4 F Acetaminophen (Tylenol 325mg Tab) 650 mg PO ONCE ONE Stop: 04/05/18 10:39 Calcium Acetate (Phoslo) 1,334 mg PO WM [facility] Epoetin Charles (Procrit) 10,000 unit SC TTS [facility] Last Admin: 04/05/18 08:26 Dose: 10,000 unit Ergocalciferol (Drisdol 50,000 Intl Units Cap) 1 cap PO Q7D [facility] Last Admin: 04/03/18 09:30 Dose: 1 cap Famotidine (Pepcid) 20 mg PO DAILY [facility] Last Admin: 04/05/18 08:19 Dose: 20 mg Famotidine (Pepcid) 20 mg IVP ONCE ONE Stop: 04/05/18 10:46 Finasteride (Proscar) 5 mg PO DAILY [facility] Last Admin: 04/05/18 08:19 Dose: 5 mg Fluticasone Propionate (Flonase) 1 spr [place] DAILY PRN PRN Reason: Nasal congestion Furosemide (Lasix) 80 mg IV ONCE ONE Stop: 04/05/18 11:01 Piperacillin Sod/Tazobactam (Sod 2.25 gm/ Sodium Chloride) 100 mls @ 100 mls/ hr IVPB Q12 [facility] PRN Reason: Protocol Last Admin: 04/05/18 08:22 Dose: 100 mls/hr Sodium Chloride (Sodium Chloride 0.9%) 1,000 mls @ 100 mls/hr IV .Q10H [facility] Last Admin: 04/05/18 05:43 Dose: 100 mls/hr Azithromycin 500 mg/ Sodium (Chloride) 250 mls @ 250 mls/hr IVPB DAILY [facility] PRN Reason: Protocol Last Admin: 04/05/18 08:22 Dose: 250 mls/hr Rituximab 1,000 mg/ Sodium (Chloride) 350 mls @ 0 mls/hr IV ONCE ONE PRN Reason: As Directed Stop: 04/05/18 10:34 Diphenhydramine HCl 50 mg/ (Sodium Chloride) 51 mls @ 102 mls/hr IVPB ONCE ONE Stop: 04/05/18 11:08 Metoprolol Succinate (Toprol Xl) 25 mg PO DAILY [facility] Last Admin: 04/05/18 08:19 Dose: 25 mg Pantoprazole Sodium (Protonix Ec Tab) 40 mg PO DAILY [facility] Last Admin: 04/05/18 08:19 Dose: 40 mg Prednisone (Prednisone Tab) 60 mg PO DAILY [facility] Last Admin: 04/05/18 08:16 Dose: 60 mg Sodium Bicarbonate (Sodium Bicarbonate Tab) 1,300 mg PO TID [facility] Last Admin: 04/05/18 08:18 Dose: 1,300 mg Tamsulosin HCl (Flomax) 0.4 mg PO QPM [facility] Last Admin: 04/04/18 17:38 Dose: 0.4 mg Tobramycin/Dexamethasone (Tobradex 0.3%-0.1% Opht Oint) 1 appl OD Q8H [facility] Last Admin: 04/05/18 05:40 Dose: 1 applic Vitamin B Complex/Vit C/Folic Acid (Nephro-Jj) 1 tab PO DAILY [facility] Last Admin: 04/05/18 08:19 Dose: 1 tab - Labs Labs: 04/03/18 14:30 04/03/18 14:30 PT 15.4 Seconds (9.8-13.1) H 03/29/18 02:17 INR 1.4 (0.9-1.2) H 03/29/18 02:17 APTT 25.7 Seconds (25.6-37.1) 03/25/18 10:26 - Constitutional Appears: No Acute Distress - Eye Exam Eye Exam: Conjunctival injection - ENT Exam ENT Exam: Mucous Membranes Moist - Neck Exam Neck Exam: absent: Lymphadenopathy - Respiratory Exam Respiratory Exam: absent: Chest Wall Tenderness - Cardiovascular Exam Cardiovascular Exam: absent: JVD, Rubs - GI/Abdominal Exam GI & Abdominal Exam: Soft, Normal Bowel Sounds - Extremities Exam Extremities Exam: absent: Calf Tenderness - Back Exam Back Exam: absent: CVA tenderness (L), CVA tenderness (R) - Neurological Exam Neurological Exam: Alert - Psychiatric Exam Psychiatric exam: Normal Affect - Skin Skin Exam: absent: Cyanosis Assessment and Plan (1) Hyperkalemia Status: Resolved (2) Acute renal failure (ARF) Assessment & Plan: 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 Consistent with Land perhaps. Chest x-ray noted with pneumonia. And pleural effusion. I suggest pulmonary consult Status post TURP anemia urinary tract infection patient is receiving Zosyn and pneumonia the plan status post 3 days steroid pulse therapy Patient receiving prednisone by mouth 60 mg that is to be tapered over about 4- 6 weeks Patient to receive today rituximab also planning to do plasma phoresis Status: Acute
[2018-04-05 12:30] LABS: BASO % 0.1 % (0.0-2.0); EOS # 0.1 K/uL (0.0-0.7); EOS % 0.8 % (0.0-4.0); LYMPH # 0.4 K/uL (1.0-4.3); MEAN CELL VOLUME 81.4 fl (80.0-94.0); MEAN CORPUSCULAR HEMOGLOBIN 26.7 pg (27.0-31.0); MEAN CORPUSCULAR HGB CONC 32.8 g/dL (33.0-37.0); MEAN PLATELET VOLUME 6.3 fl (7.2-11.7); MONO # 0.8 K/uL (0.0-0.8); MONO % 5.9 % (0.0-10.0); NEUT # 12.1 K/uL (1.8-7.0); NEUT % 90.2 % (50.0-75.0); NRBC % 0.2 % (0.0-0.0); PLATELET COUNT 303 K/uL (130-400); RBC 3.76 Mil/uL (4.40-5.90); RED CELL DISTRIBUTION WIDTH 26.4 % (11.5-14.5); WHITE BLOOD COUNT 13.4 K/uL (4.8-10.8)
[2018-04-05 12:46] LABS: ALB/GLOB RATIO 0.7 (1.0-2.1); ALBUMIN 1.9 g/dL (3.5-5.0); CALCIUM 7.2 mg/dL (8.4-10.2)
[2018-04-05] MEDS ORDERED: Lidocaine Hydrochloride 1% 10 ML ONE (14:00)
[2018-04-05 14:05] LABS: ANISOCYTOSIS MARKED; LYMPHOCYTE 7 % (20-50); MONOCYTE 8 % (0-10); NEUTROPHIL 85 % (42-75); PLATELET ESTIMATE NORMAL (NORMAL); TOTAL CELLS COUNTED 100
[2018-04-05 14:06] LABS: HYPOCHROMIC SLIGHT; LARGE PLATELETS PRESENT
--- NOTE | 2018-04-05 14:12 | PCM.SURG1 ---
Surgeon's Initial Post Op Note - Surgeon's Notes Surgeon: Prieto Casillas MD Cytology Teacher: NONE Type of Anesthesia: Local Pre-Operative Diagnosis: ARF Operative Findings: Patent right IJV Post-Operative Diagnosis: ARF Operation Performed: Non tunneled HD catheter placement right IJV Specimen/Specimens Removed: NONE Estimated Blood Loss: EBL {In ML}: 3 Blood Products Given: N/A Drains Used: No Drains Post-Op Condition: Fair Date of Surgery/Procedure: 04/05/18 Time of Surgery/Procedure: 14:10
[2018-04-05] MEDS ORDERED: Potassium Chloride 20 mEq ER Tab PO SCH (14:45)
[2018-04-05] MEDS ORDERED: DiphenhydrAMINE 50 mg/ml Inj IVP SCH (14:45)
--- NOTE | 2018-04-05 23:33 | CP.PCM.PN ---
Subjective - Date & Time of Evaluation Date of Evaluation: 04/05/18 Time of Evaluation: 18:00 - Subjective Subjective: No complaints tolerating Rituximab Objective - Vital Signs/Intake and Output Vital Signs (last 24 hours): Temp Pulse Resp BP Pulse Ox 97.6 F 92 H 20 119/76 99 04/05/18 16:07 04/05/18 16:07 04/05/18 16:07 04/05/18 16:55 04/05/18 16:07 Intake and Output: 04/05/18 04/06/18 18:59 06:59 Intake Total 800 Balance 800 - Medications Medications: Current Medications Acetaminophen (Tylenol 325mg Tab) 650 mg PO Q6H PRN PRN Reason: Fever >100.4 F Acetaminophen (Tylenol 325mg Tab) 650 mg PO ONCE ONE Stop: 04/06/18 06:01 Calcium Acetate (Phoslo) 1,334 mg PO WM [facility] Last Admin: 04/05/18 18:21 Dose: Not Given Diphenhydramine HCl (Benadryl) 50 mg PO ONCE ONE Stop: 04/06/18 06:01 Epoetin Charles (Procrit) 10,000 unit SC TTS [facility] Last Admin: 04/05/18 08:26 Dose: 10,000 unit Ergocalciferol (Drisdol 50,000 Intl Units Cap) 1 cap PO Q7D [facility] Last Admin: 04/03/18 09:30 Dose: 1 cap Famotidine (Pepcid) 20 mg PO DAILY [facility] Last Admin: 04/05/18 08:19 Dose: 20 mg Finasteride (Proscar) 5 mg PO DAILY [facility] Last Admin: 04/05/18 08:19 Dose: 5 mg Fluticasone Propionate (Flonase) 1 spr [place] DAILY PRN PRN Reason: Nasal congestion Piperacillin Sod/Tazobactam (Sod 2.25 gm/ Sodium Chloride) 100 mls @ 100 mls/ hr IVPB Q12 [facility] PRN Reason: Protocol Last Admin: 04/05/18 21:52 Dose: 100 mls/hr Sodium Chloride (Sodium Chloride 0.9%) 1,000 mls @ 100 mls/hr IV .Q10H [facility] Last Admin: 04/05/18 17:03 Dose: Not Given Azithromycin 500 mg/ Sodium (Chloride) 250 mls @ 250 mls/hr IVPB DAILY [facility] PRN Reason: Protocol Last Admin: 04/05/18 08:22 Dose: 250 mls/hr Rituximab 1,000 mg/ Sodium (Chloride) 350 mls @ 29.167 mls/hr IV ONCE [facility] PRN Reason: As Directed Stop: 04/06/18 04:00 Last Admin: 04/05/18 15:30 Dose: 29.167 mls/hr Calcium Gluconate 1,000 mg/ (Sodium Chloride) 260 mls @ 250 mls/hr IVPB ONCE ONE Stop: 04/06/18 07:02 Methylprednisolone (Solu-Medrol) 120 mg IVP ONCE ONE Stop: 04/06/18 06:01 Metoprolol Succinate (Toprol Xl) 25 mg PO DAILY [facility] Last Admin: 04/05/18 08:19 Dose: 25 mg Pantoprazole Sodium (Protonix Ec Tab) 40 mg PO DAILY [facility] Last Admin: 04/05/18 08:19 Dose: 40 mg Prednisone (Prednisone Tab) 60 mg PO DAILY [facility] Last Admin: 04/05/18 08:16 Dose: 60 mg Sodium Bicarbonate (Sodium Bicarbonate Tab) 1,300 mg PO TID [facility] Last Admin: 04/05/18 17:01 Dose: Not Given Tamsulosin HCl (Flomax) 0.4 mg PO QPM [facility] Last Admin: 04/05/18 17:04 Dose: Not Given Tobramycin/Dexamethasone (Tobradex 0.3%-0.1% Opht Oint) 1 appl OD Q8H [facility] Last Admin: 04/05/18 21:50 Dose: 1 applic Vitamin B Complex/Vit C/Folic Acid (Nephro-Jj) 1 tab PO DAILY [facility] Last Admin: 04/05/18 08:19 Dose: 1 tab - Labs Labs: 04/05/18 12:20 04/05/18 12:20 PT 15.4 Seconds (9.8-13.1) H 03/29/18 02:17 INR 1.4 (0.9-1.2) H 03/29/18 02:17 APTT 25.7 Seconds (25.6-37.1) 03/25/18 10:26 - Head Exam Head Exam: ATRAUMATIC - Eye Exam Eye Exam: Normal appearance - ENT Exam ENT Exam: Mucous Membranes Dry - Respiratory Exam Respiratory Exam: NORMAL BREATHING PATTERN - Cardiovascular Exam Cardiovascular Exam: +S1, +S2 - GI/Abdominal Exam GI & Abdominal Exam: Normal Bowel Sounds Assessment and Plan (1) Anemia Assessment & Plan: s/p IV venofer for iron deficiency Procit for anemia of CKD tolerating Rituximab 1000mg IV x 1 as inpatient for glomerulonephritis Status: Acute
[2018-04-06] MEDS: Sodium Chloride 0.9% 1,000 ML IV SCH ×3 (01:15→21:33)
[2018-04-06] MEDS: Tobramycin/Dexamethasone OPHT OINT OD SCH ×3 (05:21→21:31)
[2018-04-06] MEDS: Azithromycin 500 MG in Sodium Chloride 0.9% 250 ML IVPB SCH (09:39)
[2018-04-06] MEDS: Multivitamin Vitamin B Complex (Nephro-Vite) Tab PO SCH (09:43)
[2018-04-06] MEDS: Pantoprazole 40 mg EC Tab PO SCH (09:43)
[2018-04-06] MEDS: Metoprolol Succinate 25 mg XL Tab PO SCH (09:43)
[2018-04-06] MEDS: Calcium Acetate 667 MG Capsule PO SCH ×3 (09:46→18:49)
--- NOTE | 2018-04-06 12:23 | CP.PCM.PN ---
Subjective - Date & Time of Evaluation Date of Evaluation: 04/06/18 Time of Evaluation: 12:23 - Subjective Subjective: patient M bed somewhat lethargic Although his chemistry is improving creatinine came down somewhat Vital signs stable Objective - Vital Signs/Intake and Output Vital Signs (last 24 hours): Temp Pulse Resp BP Pulse Ox 97.4 F L 104 H 19 116/74 97 04/06/18 08:02 04/06/18 09:43 04/06/18 08:02 04/06/18 09:43 04/06/18 08:02 - Medications Medications: Current Medications Acetaminophen (Tylenol 325mg Tab) 650 mg PO Q6H PRN PRN Reason: Fever >100.4 F Calcium Acetate (Phoslo) 1,334 mg PO WM [facility] Last Admin: 04/06/18 09:46 Dose: 1,334 mg Epoetin Charles (Procrit) 10,000 unit SC TTS [facility] Last Admin: 04/05/18 08:26 Dose: 10,000 unit Ergocalciferol (Drisdol 50,000 Intl Units Cap) 1 cap PO Q7D [facility] Last Admin: 04/03/18 09:30 Dose: 1 cap Famotidine (Pepcid) 20 mg PO DAILY [facility] Last Admin: 04/06/18 09:43 Dose: 20 mg Finasteride (Proscar) 5 mg PO DAILY [facility] Last Admin: 04/06/18 09:43 Dose: 5 mg Fluticasone Propionate (Flonase) 1 spr [facility] DAILY PRN PRN Reason: Nasal congestion Piperacillin Sod/Tazobactam (Sod 2.25 gm/ Sodium Chloride) 100 mls @ 100 mls/ hr IVPB Q12 [facility] PRN Reason: Protocol Last Admin: 04/06/18 09:38 Dose: 100 mls/hr Sodium Chloride (Sodium Chloride 0.9%) 1,000 mls @ 100 mls/hr IV .Q10H [facility] Last Admin: 04/06/18 01:15 Dose: Not Given Azithromycin 500 mg/ Sodium (Chloride) 250 mls @ 250 mls/hr IVPB DAILY [facility] PRN Reason: Protocol Last Admin: 04/06/18 09:39 Dose: 250 mls/hr Metoprolol Succinate (Toprol Xl) 25 mg PO DAILY [facility] Last Admin: 04/06/18 09:43 Dose: 25 mg Pantoprazole Sodium (Protonix Ec Tab) 40 mg PO DAILY [facility] Last Admin: 04/06/18 09:43 Dose: 40 mg Prednisone (Prednisone Tab) 60 mg PO DAILY [facility] Last Admin: 04/06/18 09:44 Dose: 60 mg Sodium Bicarbonate (Sodium Bicarbonate Tab) 1,300 mg PO TID [facility] Last Admin: 04/06/18 09:42 Dose: 1,300 mg Tamsulosin HCl (Flomax) 0.4 mg PO QPM [facility] Last Admin: 04/05/18 17:04 Dose: Not Given Tobramycin/Dexamethasone (Tobradex 0.3%-0.1% Opht Oint) 1 appl OD Q8H [facility] Last Admin: 04/06/18 05:21 Dose: 1 applic Vitamin B Complex/Vit C/Folic Acid (Nephro-Jj) 1 tab PO DAILY [facility] Last Admin: 04/06/18 09:43 Dose: 1 tab - Labs Labs: 04/05/18 12:20 04/05/18 12:20 PT 15.4 Seconds (9.8-13.1) H 03/29/18 02:17 INR 1.4 (0.9-1.2) H 03/29/18 02:17 APTT 25.7 Seconds (25.6-37.1) 03/25/18 10:26 - Constitutional Appears: No Acute Distress - Eye Exam Eye Exam: absent: Conjunctival injection - ENT Exam ENT Exam: Mucous Membranes Moist - Neck Exam Neck Exam: absent: Lymphadenopathy - Respiratory Exam Respiratory Exam: absent: Chest Wall Tenderness - Cardiovascular Exam Cardiovascular Exam: absent: Gallop, JVD, Rubs - GI/Abdominal Exam GI & Abdominal Exam: Soft, Normal Bowel Sounds - Extremities Exam Extremities Exam: absent: Calf Tenderness - Back Exam Back Exam: absent: CVA tenderness (L), CVA tenderness (R) - Neurological Exam Neurological Exam: Alert - Psychiatric Exam Psychiatric exam: Normal Affect - Skin Skin Exam: absent: Cyanosis Assessment and Plan (1) Hyperkalemia Status: Resolved (2) Acute renal failure (ARF) Assessment & Plan: 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 And pleural effusion. I suggest pulmonary consult Status post TURP anemia urinary tract infection patient is receiving Zosyn and for pneumonia the plan status post 3 days steroid pulse therapy Patient receiving prednisone by mouth 60 mg that is to be tapered over about 4- 6 weeks rituximab completed early this morning Therefore the plan for plasmapheresis to be delayed for about 48 hours also planning to do plasma phoresis Status: Acute
--- NOTE | 2018-04-06 14:39 | VASCULAR ---
PROCEDURE: Date of procedure: 04/06/2018 Procedure: Placement of a non tunneled hemodialysis catheter, CPT 72607 Medications: 6cc 1 percent lidocaine Radiation: 5.66 MGy Fluoro time: 34.5 Seconds Images saved: 2 HISTORY: Renal failure TECHNIQUE: Following informed consent, the patient's right neck was prepped and draped in the usual sterile fashion. Ultrasound showed a patent and compressible right internal jugular vein. After the skin was anesthetized with 1% lidocaine, the internal jugular vein was accessed under direct ultrasound guidance with micropuncture technique and a guidewire was advanced under fluoroscopic guidance into the SVC. The venotomy was then dilated to accommodate a non tunneled 15 hemodialysis catheter. An image documenting ultrasound guidance for vascular access was permanently saved. The catheter was tested and has adequate blood return for hemodialysis. The catheter was flushed and loaded with heparin per specified amounts. The catheter was secured to patient's skin. A dressing was applied. Post procedure chest x-ray showed a hemodialysis catheter at the caval atrial junction. IMPRESSION: Placement of a non tunneled 15 centimeter hemodialysis catheter via the right internal jugular vein. The tip of the catheter was confirmed with a postoperative chest x-ray and is at the cavoatrial junction. The catheter is functional ready for use.
[2018-04-06 16:03] LABS: BASO % 0.3 % (0.0-2.0); EOS % 0.3 % (0.0-4.0); LYMPH # 0.1 K/uL (1.0-4.3); LYMPH % 1.1 % (20.0-40.0); MEAN CELL VOLUME 82.3 fl (80.0-94.0); MEAN CORPUSCULAR HEMOGLOBIN 27.2 pg (27.0-31.0); MEAN CORPUSCULAR HGB CONC 33.1 g/dL (33.0-37.0); MEAN PLATELET VOLUME 6.3 fl (7.2-11.7); MONO # 0.1 K/uL (0.0-0.8); MONO % 1.4 % (0.0-10.0); NEUT # 9.6 K/uL (1.8-7.0); NEUT % 96.9 % (50.0-75.0); NRBC % 0.2 % (0.0-0.0); RBC 3.69 Mil/uL (4.40-5.90); RED CELL DISTRIBUTION WIDTH 28.8 % (11.5-14.5); WHITE BLOOD COUNT 9.9 K/uL (4.8-10.8)
[2018-04-06 16:08] LABS: INR 1.3; PROTHROMBIN TIME 14.1 Seconds (9.8-13.1)
[2018-04-06 16:20] LABS: ALB/GLOB RATIO 0.7 (1.0-2.1); CALCIUM 7.1 mg/dL (8.4-10.2)
--- NOTE | 2018-04-07 00:20 | CP.PCM.PN ---
Subjective - Date & Time of Evaluation Date of Evaluation: 04/06/18 Time of Evaluation: 21:30 Objective - Vital Signs/Intake and Output Vital Signs (last 24 hours): Temp Pulse Resp BP Pulse Ox 97.7 F 108 H 20 125/77 99 04/06/18 16:32 04/06/18 16:32 04/06/18 16:32 04/06/18 16:32 04/06/18 16:32 - Medications Medications: Current Medications Acetaminophen (Tylenol 325mg Tab) 650 mg PO Q6H PRN PRN Reason: Fever >100.4 F Calcium Acetate (Phoslo) 1,334 mg PO WM [facility] Last Admin: 04/06/18 18:49 Dose: 1,334 mg Epoetin Charles (Procrit) 10,000 unit SC TTS [facility] Last Admin: 04/05/18 08:26 Dose: 10,000 unit Ergocalciferol (Drisdol 50,000 Intl Units Cap) 1 cap PO Q7D [facility] Last Admin: 04/03/18 09:30 Dose: 1 cap Famotidine (Pepcid) 20 mg PO DAILY [facility] Last Admin: 04/06/18 09:43 Dose: 20 mg Finasteride (Proscar) 5 mg PO DAILY [facility] Last Admin: 04/06/18 09:43 Dose: 5 mg Fluticasone Propionate (Flonase) 1 spr [facility] DAILY PRN PRN Reason: Nasal congestion Piperacillin Sod/Tazobactam (Sod 2.25 gm/ Sodium Chloride) 100 mls @ 100 mls/ hr IVPB Q12 [facility] PRN Reason: Protocol Last Admin: 04/06/18 21:30 Dose: 100 mls/hr Sodium Chloride (Sodium Chloride 0.9%) 1,000 mls @ 100 mls/hr IV .Q10H [facility] Last Admin: 04/06/18 21:33 Dose: 100 mls/hr Azithromycin 500 mg/ Sodium (Chloride) 250 mls @ 250 mls/hr IVPB DAILY [facility] PRN Reason: Protocol Last Admin: 04/06/18 09:39 Dose: 250 mls/hr Metoprolol Succinate (Toprol Xl) 25 mg PO DAILY [facility] Last Admin: 04/06/18 09:43 Dose: 25 mg Pantoprazole Sodium (Protonix Ec Tab) 40 mg PO DAILY [facility] Last Admin: 04/06/18 09:43 Dose: 40 mg Prednisone (Prednisone Tab) 60 mg PO DAILY [facility] Last Admin: 04/06/18 09:44 Dose: 60 mg Sodium Bicarbonate (Sodium Bicarbonate Tab) 1,300 mg PO TID [facility] Last Admin: 04/06/18 18:50 Dose: 1,300 mg Tamsulosin HCl (Flomax) 0.4 mg PO QPM [facility] Last Admin: 04/06/18 18:48 Dose: 0.4 mg Tobramycin/Dexamethasone (Tobradex 0.3%-0.1% Opht Oint) 1 appl OD Q8H [facility] Last Admin: 04/06/18 21:31 Dose: 1 applic Vitamin B Complex/Vit C/Folic Acid (Nephro-Jj) 1 tab PO DAILY [facility] Last Admin: 04/06/18 09:43 Dose: 1 tab - Labs Labs: 04/06/18 15:53 04/06/18 15:53 PT 14.1 Seconds (9.8-13.1) H 04/06/18 15:57 INR 1.3 04/06/18 15:57 APTT 22.0 Seconds (25.6-37.1) L 04/06/18 15:57 Assessment and Plan (1) Altered mental status Assessment & Plan: Continue to Monitor Status: Resolved (2) Severe anemia S/P 6 Units of PRBCs, Hgb 9.0mg/dl Assessment & Plan: No New Complaint. H/H continue to be Low and on Iron Infusion. Monitor H/H Status: Acute (3) Hyperkalemia-Resolved Assessment & Plan: Monitor Status: Resolved (4) Acute on chronic renal failure, S/P Biopsy, Gross Hematuria- Worsening Repeat K 4.7 from 5.4 Status: Acute Monitor BMP IVF Going for Cystotsopy (5) New onset A-fib- Rate Controlled Status: Acute (6) Thrombocytosis- Improved Status: Acute
--- NOTE | 2018-04-07 00:20 | CP.PCM.PN ---
Subjective - Date & Time of Evaluation Date of Evaluation: 04/05/18 Time of Evaluation: 21:40 Objective - Vital Signs/Intake and Output Vital Signs (last 24 hours): Temp Pulse Resp BP Pulse Ox 97.7 F 108 H 20 125/77 99 04/06/18 16:32 04/06/18 16:32 04/06/18 16:32 04/06/18 16:32 04/06/18 16:32 - Medications Medications: Current Medications Acetaminophen (Tylenol 325mg Tab) 650 mg PO Q6H PRN PRN Reason: Fever >100.4 F Calcium Acetate (Phoslo) 1,334 mg PO WM [facility] Last Admin: 04/06/18 18:49 Dose: 1,334 mg Epoetin Charles (Procrit) 10,000 unit SC TTS [facility] Last Admin: 04/05/18 08:26 Dose: 10,000 unit Ergocalciferol (Drisdol 50,000 Intl Units Cap) 1 cap PO Q7D [facility] Last Admin: 04/03/18 09:30 Dose: 1 cap Famotidine (Pepcid) 20 mg PO DAILY [facility] Last Admin: 04/06/18 09:43 Dose: 20 mg Finasteride (Proscar) 5 mg PO DAILY [facility] Last Admin: 04/06/18 09:43 Dose: 5 mg Fluticasone Propionate (Flonase) 1 spr [facility] DAILY PRN PRN Reason: Nasal congestion Piperacillin Sod/Tazobactam (Sod 2.25 gm/ Sodium Chloride) 100 mls @ 100 mls/ hr IVPB Q12 [facility] PRN Reason: Protocol Last Admin: 04/06/18 21:30 Dose: 100 mls/hr Sodium Chloride (Sodium Chloride 0.9%) 1,000 mls @ 100 mls/hr IV .Q10H [facility] Last Admin: 04/06/18 21:33 Dose: 100 mls/hr Azithromycin 500 mg/ Sodium (Chloride) 250 mls @ 250 mls/hr IVPB DAILY [facility] PRN Reason: Protocol Last Admin: 04/06/18 09:39 Dose: 250 mls/hr Metoprolol Succinate (Toprol Xl) 25 mg PO DAILY [facility] Last Admin: 04/06/18 09:43 Dose: 25 mg Pantoprazole Sodium (Protonix Ec Tab) 40 mg PO DAILY [facility] Last Admin: 04/06/18 09:43 Dose: 40 mg Prednisone (Prednisone Tab) 60 mg PO DAILY [facility] Last Admin: 04/06/18 09:44 Dose: 60 mg Sodium Bicarbonate (Sodium Bicarbonate Tab) 1,300 mg PO TID [facility] Last Admin: 04/06/18 18:50 Dose: 1,300 mg Tamsulosin HCl (Flomax) 0.4 mg PO QPM [facility] Last Admin: 04/06/18 18:48 Dose: 0.4 mg Tobramycin/Dexamethasone (Tobradex 0.3%-0.1% Opht Oint) 1 appl OD Q8H [facility] Last Admin: 04/06/18 21:31 Dose: 1 applic Vitamin B Complex/Vit C/Folic Acid (Nephro-Jj) 1 tab PO DAILY [facility] Last Admin: 04/06/18 09:43 Dose: 1 tab - Labs Labs: 04/06/18 15:53 04/06/18 15:53 PT 14.1 Seconds (9.8-13.1) H 04/06/18 15:57 INR 1.3 04/06/18 15:57 APTT 22.0 Seconds (25.6-37.1) L 04/06/18 15:57 Assessment and Plan (1) Altered mental status Assessment & Plan: Continue to Monitor Status: Resolved (2) Severe anemia S/P 6 Units of PRBCs, Hgb 9.0mg/dl Assessment & Plan: No New Complaint. H/H continue to be Low and on Iron Infusion. Monitor H/H Status: Acute (3) Hyperkalemia-Resolved Assessment & Plan: Monitor Status: Resolved (4) Acute on chronic renal failure, S/P Biopsy, Gross Hematuria- Worsening Repeat K 4.7 from 5.4 Status: Acute Monitor BMP IVF Going for Cystotsopy (5) New onset A-fib- Rate Controlled Status: Acute (6) Thrombocytosis- Improved Status: Acute
[2018-04-07] MEDS: Tobramycin/Dexamethasone OPHT OINT OD SCH ×3 (05:32→21:57)
[2018-04-07] MEDS ORDERED: Sodium Chloride 0.9% 1,000 ML IV SCH (08:00)
[2018-04-07] MEDS: Multivitamin Vitamin B Complex (Nephro-Vite) Tab PO SCH (08:59)
[2018-04-07] MEDS: Pantoprazole 40 mg EC Tab PO SCH (09:00)
[2018-04-07] MEDS: Azithromycin 500 MG in Sodium Chloride 0.9% 250 ML IVPB SCH (09:01)
[2018-04-07] MEDS: EPOETIN ALFA 10,000 UNIT/ML ML SC SCH (09:02)
--- NOTE | 2018-04-07 09:03 | CP.PCM.PN ---
Subjective - Date & Time of Evaluation Date of Evaluation: 04/07/18 Time of Evaluation: 09:02 - Subjective Subjective: patient M bed awake and conscious not in acute distress. Reported by the nurse is eating no nausea no vomiting blood tests reviewed 1 noted serum creatinine rising since yesterday somewhat Objective - Vital Signs/Intake and Output Vital Signs (last 24 hours): Temp Pulse Resp BP Pulse Ox 98.6 F 95 H 20 123/83 96 04/07/18 00:24 04/07/18 00:24 04/07/18 00:24 04/07/18 00:24 04/07/18 00:24 - Medications Medications: Current Medications Acetaminophen (Tylenol 325mg Tab) 650 mg PO Q6H PRN PRN Reason: Fever >100.4 F Calcium Acetate (Phoslo) 1,334 mg PO WM [facility] Last Admin: 04/06/18 18:49 Dose: 1,334 mg Epoetin Charles (Procrit) 10,000 unit SC TTS [facility] Last Admin: 04/05/18 08:26 Dose: 10,000 unit Ergocalciferol (Drisdol 50,000 Intl Units Cap) 1 cap PO Q7D [facility] Last Admin: 04/03/18 09:30 Dose: 1 cap Famotidine (Pepcid) 20 mg PO DAILY [facility] Last Admin: 04/06/18 09:43 Dose: 20 mg Finasteride (Proscar) 5 mg PO DAILY [facility] Last Admin: 04/06/18 09:43 Dose: 5 mg Fluticasone Propionate (Flonase) 1 spr [facility] DAILY PRN PRN Reason: Nasal congestion Piperacillin Sod/Tazobactam (Sod 2.25 gm/ Sodium Chloride) 100 mls @ 100 mls/ hr IVPB Q12 [facility] PRN Reason: Protocol Last Admin: 04/06/18 21:30 Dose: 100 mls/hr Azithromycin 500 mg/ Sodium (Chloride) 250 mls @ 250 mls/hr IVPB DAILY [facility] PRN Reason: Protocol Last Admin: 04/06/18 09:39 Dose: 250 mls/hr Sodium Chloride (Sodium Chloride 0.9%) 1,000 mls @ 20 mls/hr IV .Q24H [facility] Stop: 04/08/18 07:54 Metoprolol Succinate (Toprol Xl) 25 mg PO DAILY [facility] Last Admin: 04/06/18 09:43 Dose: 25 mg Pantoprazole Sodium (Protonix Ec Tab) 40 mg PO DAILY [facility] Last Admin: 04/06/18 09:43 Dose: 40 mg Prednisone (Prednisone Tab) 60 mg PO DAILY [facility] Last Admin: 04/06/18 09:44 Dose: 60 mg Sodium Bicarbonate (Sodium Bicarbonate Tab) 1,300 mg PO TID [facility] Last Admin: 04/06/18 18:50 Dose: 1,300 mg Tamsulosin HCl (Flomax) 0.4 mg PO QPM [facility] Last Admin: 04/06/18 18:48 Dose: 0.4 mg Tobramycin/Dexamethasone (Tobradex 0.3%-0.1% Opht Oint) 1 appl OD Q8H [facility] Last Admin: 04/07/18 05:32 Dose: 1 applic Vitamin B Complex/Vit C/Folic Acid (Nephro-Jj) 1 tab PO DAILY [facility] Last Admin: 04/06/18 09:43 Dose: 1 tab - Labs Labs: 04/06/18 15:53 04/06/18 15:53 PT 14.1 Seconds (9.8-13.1) H 04/06/18 15:57 INR 1.3 04/06/18 15:57 APTT 22.0 Seconds (25.6-37.1) L 04/06/18 15:57 - Constitutional Appears: No Acute Distress - ENT Exam ENT Exam: Mucous Membranes Moist - Neck Exam Neck Exam: absent: Lymphadenopathy - Respiratory Exam Respiratory Exam: absent: Chest Wall Tenderness - GI/Abdominal Exam GI & Abdominal Exam: Soft, Normal Bowel Sounds. 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 And pleural effusion. I suggest pulmonary consult Status post TURP anemia urinary tract infection patient is receiving Zosyn and for pneumonia the plan status post 3 days steroid pulse therapy Patient receiving prednisone by mouth 60 mg that is to be tapered over about 4- 6 weeks rituximab completed more than 24 hr ago Therefore the plan for plasmapheresis to be delayed for about 48 hours, scheduled for plasma phoresis for tomorrow Status: Acute
[2018-04-07] MEDS: Metoprolol Succinate 25 mg XL Tab PO SCH (09:06)
[2018-04-07] MEDS: Calcium Acetate 667 MG Capsule PO SCH (10:17)
--- NOTE | 2018-04-07 22:18 | CP.PCM.PN ---
Subjective - Date & Time of Evaluation Date of Evaluation: 04/06/18 Time of Evaluation: 13:00 - Subjective Subjective: Tolerated Rituximab well Objective - Vital Signs/Intake and Output Vital Signs (last 24 hours): Temp Pulse Resp BP Pulse Ox 98.2 F 88 18 135/79 99 04/07/18 16:06 04/07/18 16:06 04/07/18 16:06 04/07/18 16:06 04/07/18 16:06 Intake and Output: 04/07/18 04/08/18 18:59 06:59 Intake Total 1190 Output Total 1 Balance 1189 - Medications Medications: Current Medications Acetaminophen (Tylenol 325mg Tab) 650 mg PO Q6H PRN PRN Reason: Fever >100.4 F Acetaminophen (Tylenol 325mg Tab) 650 mg PO ONCE ONE Stop: 04/08/18 07:01 Albumin Human (Albumin Human 5% (12.5 Gm/250 Ml)) 200 gm IV ONCE ONE Stop: 04/08/18 11:01 Calcium Acetate (Phoslo) 1,334 mg PO WM [facility] Last Admin: 04/07/18 17:29 Dose: 1,334 mg Diphenhydramine HCl (Benadryl) 50 mg PO ONCE ONE Stop: 04/08/18 07:01 Epoetin Charles (Procrit) 10,000 unit SC TTS [facility] Last Admin: 04/07/18 09:02 Dose: 10,000 unit Ergocalciferol (Drisdol 50,000 Intl Units Cap) 1 cap PO Q7D [facility] Last Admin: 04/03/18 09:30 Dose: 1 cap Famotidine (Pepcid) 20 mg PO DAILY [facility] Last Admin: 04/07/18 09:00 Dose: 20 mg Finasteride (Proscar) 5 mg PO DAILY [facility] Last Admin: 04/07/18 09:00 Dose: 5 mg Fluticasone Propionate (Flonase) 1 spr [facility] DAILY PRN PRN Reason: Nasal congestion Piperacillin Sod/Tazobactam (Sod 2.25 gm/ Sodium Chloride) 100 mls @ 100 mls/ hr IVPB Q12 [facility] PRN Reason: Protocol Last Admin: 04/07/18 21:58 Dose: 100 mls/hr Azithromycin 500 mg/ Sodium (Chloride) 250 mls @ 250 mls/hr IVPB DAILY [facility] PRN Reason: Protocol Last Admin: 04/07/18 09:01 Dose: 250 mls/hr Sodium Chloride (Sodium Chloride 0.9%) 1,000 mls @ 20 mls/hr IV .Q24H [facility] Stop: 04/08/18 07:54 Last Admin: 04/07/18 09:00 Dose: 20 mls/hr Calcium Gluconate 1,000 mg/ (Sodium Chloride) 110 mls @ 105.769 mls/hr IVPB ONCE ONE Stop: 04/08/18 08:02 Methylprednisolone (Solu-Medrol) 120 mg IVP ONCE ONE Stop: 04/08/18 07:01 Metoprolol Succinate (Toprol Xl) 25 mg PO DAILY [facility] Last Admin: 04/07/18 09:06 Dose: 25 mg Pantoprazole Sodium (Protonix Ec Tab) 40 mg PO DAILY [facility] Last Admin: 04/07/18 09:00 Dose: 40 mg Prednisone (Prednisone Tab) 60 mg PO DAILY [facility] Last Admin: 04/07/18 08:59 Dose: 60 mg Sodium Bicarbonate (Sodium Bicarbonate Tab) 1,300 mg PO TID [facility] Last Admin: 04/07/18 17:29 Dose: 1,300 mg Tamsulosin HCl (Flomax) 0.4 mg PO QPM [facility] Last Admin: 04/07/18 17:47 Dose: 0.4 mg Tobramycin/Dexamethasone (Tobradex 0.3%-0.1% Opht Oint) 1 appl OD Q8H [facility] Last Admin: 04/07/18 21:57 Dose: 1 applic Vitamin B Complex/Vit C/Folic Acid (Nephro-Jj) 1 tab PO DAILY [facility] Last Admin: 04/07/18 08:59 Dose: 1 tab - Labs Labs: 04/06/18 15:53 04/06/18 15:53 PT 14.1 Seconds (9.8-13.1) H 04/06/18 15:57 INR 1.3 04/06/18 15:57 APTT 22.0 Seconds (25.6-37.1) L 04/06/18 15:57 - Head Exam Head Exam: ATRAUMATIC - Eye Exam Eye Exam: Normal appearance - ENT Exam ENT Exam: Mucous Membranes Dry - Respiratory Exam Respiratory Exam: NORMAL BREATHING PATTERN - Cardiovascular Exam Cardiovascular Exam: +S1, +S2 - GI/Abdominal Exam GI & Abdominal Exam: Normal Bowel Sounds Assessment and Plan (1) Anemia Assessment & Plan: iron deficiency s/p IV iron anemia of CKD on Procrit transfusion support PRN Status: Acute
--- NOTE | 2018-04-07 22:19 | CP.PCM.PN ---
Subjective - Date & Time of Evaluation Date of Evaluation: 04/07/18 Time of Evaluation: 18:00 - Subjective Subjective: No complaints for plasmapheresis with albumin in AM Objective - Vital Signs/Intake and Output Vital Signs (last 24 hours): Temp Pulse Resp BP Pulse Ox 98.2 F 88 18 135/79 99 04/07/18 16:06 04/07/18 16:06 04/07/18 16:06 04/07/18 16:06 04/07/18 16:06 Intake and Output: 04/07/18 04/08/18 18:59 06:59 Intake Total 1190 Output Total 1 Balance 1189 - Medications Medications: Current Medications Acetaminophen (Tylenol 325mg Tab) 650 mg PO Q6H PRN PRN Reason: Fever >100.4 F Acetaminophen (Tylenol 325mg Tab) 650 mg PO ONCE ONE Stop: 04/08/18 07:01 Albumin Human (Albumin Human 5% (12.5 Gm/250 Ml)) 200 gm IV ONCE ONE Stop: 04/08/18 11:01 Calcium Acetate (Phoslo) 1,334 mg PO WM [facility] Last Admin: 04/07/18 17:29 Dose: 1,334 mg Diphenhydramine HCl (Benadryl) 50 mg PO ONCE ONE Stop: 04/08/18 07:01 Epoetin Charles (Procrit) 10,000 unit SC TTS [facility] Last Admin: 04/07/18 09:02 Dose: 10,000 unit Ergocalciferol (Drisdol 50,000 Intl Units Cap) 1 cap PO Q7D [facility] Last Admin: 04/03/18 09:30 Dose: 1 cap Famotidine (Pepcid) 20 mg PO DAILY [facility] Last Admin: 04/07/18 09:00 Dose: 20 mg Finasteride (Proscar) 5 mg PO DAILY [facility] Last Admin: 04/07/18 09:00 Dose: 5 mg Fluticasone Propionate (Flonase) 1 spr [facility] DAILY PRN PRN Reason: Nasal congestion Piperacillin Sod/Tazobactam (Sod 2.25 gm/ Sodium Chloride) 100 mls @ 100 mls/ hr IVPB Q12 [facility] PRN Reason: Protocol Last Admin: 04/07/18 21:58 Dose: 100 mls/hr Azithromycin 500 mg/ Sodium (Chloride) 250 mls @ 250 mls/hr IVPB DAILY [facility] PRN Reason: Protocol Last Admin: 04/07/18 09:01 Dose: 250 mls/hr Sodium Chloride (Sodium Chloride 0.9%) 1,000 mls @ 20 mls/hr IV .Q24H [facility] Stop: 04/08/18 07:54 Last Admin: 04/07/18 09:00 Dose: 20 mls/hr Calcium Gluconate 1,000 mg/ (Sodium Chloride) 110 mls @ 105.769 mls/hr IVPB ONCE ONE Stop: 04/08/18 08:02 Methylprednisolone (Solu-Medrol) 120 mg IVP ONCE ONE Stop: 04/08/18 07:01 Metoprolol Succinate (Toprol Xl) 25 mg PO DAILY [facility] Last Admin: 04/07/18 09:06 Dose: 25 mg Pantoprazole Sodium (Protonix Ec Tab) 40 mg PO DAILY [facility] Last Admin: 04/07/18 09:00 Dose: 40 mg Prednisone (Prednisone Tab) 60 mg PO DAILY [facility] Last Admin: 04/07/18 08:59 Dose: 60 mg Sodium Bicarbonate (Sodium Bicarbonate Tab) 1,300 mg PO TID [facility] Last Admin: 04/07/18 17:29 Dose: 1,300 mg Tamsulosin HCl (Flomax) 0.4 mg PO QPM [facility] Last Admin: 04/07/18 17:47 Dose: 0.4 mg Tobramycin/Dexamethasone (Tobradex 0.3%-0.1% Opht Oint) 1 appl OD Q8H [facility] Last Admin: 04/07/18 21:57 Dose: 1 applic Vitamin B Complex/Vit C/Folic Acid (Nephro-Jj) 1 tab PO DAILY [facility] Last Admin: 04/07/18 08:59 Dose: 1 tab - Labs Labs: 04/06/18 15:53 04/06/18 15:53 PT 14.1 Seconds (9.8-13.1) H 04/06/18 15:57 INR 1.3 04/06/18 15:57 APTT 22.0 Seconds (25.6-37.1) L 04/06/18 15:57 - Head Exam Head Exam: ATRAUMATIC - Eye Exam Eye Exam: Normal appearance - ENT Exam ENT Exam: Mucous Membranes Dry - Respiratory Exam Respiratory Exam: NORMAL BREATHING PATTERN - Cardiovascular Exam Cardiovascular Exam: +S1, +S2 - GI/Abdominal Exam GI & Abdominal Exam: Normal Bowel Sounds Assessment and Plan (1) Anemia Assessment & Plan: anemia of CKD on Procrit iron deficiency s/p IV iron transfusion support PRN Status: Acute
[2018-04-08] MEDS: Tobramycin/Dexamethasone OPHT OINT OD SCH ×3 (05:05→21:13)
--- NOTE | 2018-04-08 08:07 | CP.PCM.PN ---
Subjective - Date & Time of Evaluation Date of Evaluation: 04/07/18 Time of Evaluation: 20:40 - Subjective Subjective: Seen and examined at the bed side. No New Complaint. Scheduled for Plasmaphersis tomorrow Am. Objective - Vital Signs/Intake and Output Vital Signs (last 24 hours): Temp Pulse Resp BP Pulse Ox 98.3 F 100 H 18 133/73 98 04/08/18 00:27 04/08/18 00:27 04/08/18 00:27 04/08/18 00:27 04/08/18 00:27 - Medications Medications: Current Medications Acetaminophen (Tylenol 325mg Tab) 650 mg PO Q6H PRN PRN Reason: Fever >100.4 F Albumin Human (Albumin Human 5% (12.5 Gm/250 Ml)) 200 gm IV ONCE ONE Stop: 04/08/18 11:01 Calcium Acetate (Phoslo) 1,334 mg PO WM [facility] Last Admin: 04/07/18 17:29 Dose: 1,334 mg Epoetin Charles (Procrit) 10,000 unit SC TTS [facility] Last Admin: 04/07/18 09:02 Dose: 10,000 unit Ergocalciferol (Drisdol 50,000 Intl Units Cap) 1 cap PO Q7D [facility] Last Admin: 04/03/18 09:30 Dose: 1 cap Famotidine (Pepcid) 20 mg PO DAILY [facility] Last Admin: 04/07/18 09:00 Dose: 20 mg Finasteride (Proscar) 5 mg PO DAILY [facility] Last Admin: 04/07/18 09:00 Dose: 5 mg Fluticasone Propionate (Flonase) 1 spr [facility] DAILY PRN PRN Reason: Nasal congestion Piperacillin Sod/Tazobactam (Sod 2.25 gm/ Sodium Chloride) 100 mls @ 100 mls/ hr IVPB Q12 [facility] PRN Reason: Protocol Last Admin: 04/07/18 21:58 Dose: 100 mls/hr Azithromycin 500 mg/ Sodium (Chloride) 250 mls @ 250 mls/hr IVPB DAILY [facility] PRN Reason: Protocol Last Admin: 04/07/18 09:01 Dose: 250 mls/hr Metoprolol Succinate (Toprol Xl) 25 mg PO DAILY [facility] Last Admin: 04/07/18 09:06 Dose: 25 mg Pantoprazole Sodium (Protonix Ec Tab) 40 mg PO DAILY [facility] Last Admin: 04/07/18 09:00 Dose: 40 mg Prednisone (Prednisone Tab) 60 mg PO DAILY [facility] Last Admin: 04/07/18 08:59 Dose: 60 mg Sodium Bicarbonate (Sodium Bicarbonate Tab) 1,300 mg PO TID [facility] Last Admin: 04/07/18 17:29 Dose: 1,300 mg Tamsulosin HCl (Flomax) 0.4 mg PO QPM [facility] Last Admin: 04/07/18 17:47 Dose: 0.4 mg Tobramycin/Dexamethasone (Tobradex 0.3%-0.1% Opht Oint) 1 appl OD Q8H [facility] Last Admin: 04/08/18 05:05 Dose: Not Given Vitamin B Complex/Vit C/Folic Acid (Nephro-Jj) 1 tab PO DAILY [facility] Last Admin: 04/07/18 08:59 Dose: 1 tab - Labs Labs: 04/06/18 15:53 04/06/18 15:53 PT 14.1 Seconds (9.8-13.1) H 04/06/18 15:57 INR 1.3 04/06/18 15:57 APTT 22.0 Seconds (25.6-37.1) L 04/06/18 15:57 Assessment and Plan (1) Altered mental status Assessment & Plan: Continue to Monitor Status: Resolved (2) Severe anemia S/P 6 Units of PRBCs, Hgb 9.0mg/dl Assessment & Plan: No New Complaint. H/H continue to be Low and on Iron Infusion. Monitor H/H Status: Acute (3) Hyperkalemia-Resolved Assessment & Plan: Monitor Status: Resolved (4) Acute on chronic renal failure, S/P Biopsy, Gross Hematuria- Worsening Repeat K 4.7 from 5.4 Status: Acute Monitor BMP IVF Going for Cystotsopy (5) New onset A-fib- Rate Controlled Status: Acute (6) Thrombocytosis- Improved Status: Acute
[2018-04-08] MEDS: Multivitamin Vitamin B Complex (Nephro-Vite) Tab PO SCH (09:47)
[2018-04-08] MEDS: Pantoprazole 40 mg EC Tab PO SCH (09:48)
[2018-04-08] MEDS: Azithromycin 500 MG in Sodium Chloride 0.9% 250 ML IVPB SCH (09:49)
[2018-04-08] MEDS ORDERED: Albumin Human 5% (12.5 gm/250 ml) IV ONE ×2 (11:00)
--- NOTE | 2018-04-08 13:16 | CP.PCM.PN ---
Subjective - Date & Time of Evaluation Date of Evaluation: 04/08/18 Time of Evaluation: 13:14 - Subjective Subjective: plasmapheresis note he was seen receiving plasmapheresis started now. Through right subclavian catheter. Replacement fluid 5% albumin Total replacement approximately 4000 mL Vital signs stable Order discuss dialysis nurse at the bedside Objective - Vital Signs/Intake and Output Vital Signs (last 24 hours): Temp Pulse Resp BP Pulse Ox 97.9 F 90 19 109/73 97 04/08/18 08:08 04/08/18 08:08 04/08/18 08:08 04/08/18 08:08 04/08/18 08:08 - Medications Medications: Current Medications Acetaminophen (Tylenol 325mg Tab) 650 mg PO Q6H PRN PRN Reason: Fever >100.4 F Calcium Acetate (Phoslo) 1,334 mg PO WM [facility] Last Admin: 04/08/18 12:28 Dose: 1,334 mg Epoetin Charles (Procrit) 10,000 unit SC TTS [facility] Last Admin: 04/07/18 09:02 Dose: 10,000 unit Ergocalciferol (Drisdol 50,000 Intl Units Cap) 1 cap PO Q7D [facility] Last Admin: 04/03/18 09:30 Dose: 1 cap Famotidine (Pepcid) 20 mg PO DAILY [facility] Last Admin: 04/08/18 09:47 Dose: 20 mg Finasteride (Proscar) 5 mg PO DAILY [facility] Last Admin: 04/08/18 09:48 Dose: 5 mg Fluticasone Propionate (Flonase) 1 spr [facility] DAILY PRN PRN Reason: Nasal congestion Piperacillin Sod/Tazobactam (Sod 2.25 gm/ Sodium Chloride) 100 mls @ 100 mls/ hr IVPB Q12 [facility] PRN Reason: Protocol Last Admin: 04/08/18 09:49 Dose: 100 mls/hr Azithromycin 500 mg/ Sodium (Chloride) 250 mls @ 250 mls/hr IVPB DAILY [facility] PRN Reason: Protocol Last Admin: 04/08/18 09:49 Dose: 250 mls/hr Metoprolol Succinate (Toprol Xl) 25 mg PO DAILY [facility] Last Admin: 04/07/18 09:06 Dose: 25 mg Pantoprazole Sodium (Protonix Ec Tab) 40 mg PO DAILY [facility] Last Admin: 04/08/18 09:48 Dose: 40 mg Prednisone (Prednisone Tab) 60 mg PO DAILY [facility] Last Admin: 04/08/18 09:48 Dose: 60 mg Sodium Bicarbonate (Sodium Bicarbonate Tab) 1,300 mg PO TID [facility] Last Admin: 04/08/18 09:46 Dose: 1,300 mg Tamsulosin HCl (Flomax) 0.4 mg PO QPM [facility] Last Admin: 04/07/18 17:47 Dose: 0.4 mg Tobramycin/Dexamethasone (Tobradex 0.3%-0.1% Opht Oint) 1 appl OD Q8H [facility] Last Admin: 04/08/18 05:05 Dose: Not Given Vitamin B Complex/Vit C/Folic Acid (Nephro-Jj) 1 tab PO DAILY [facility] Last Admin: 04/08/18 09:47 Dose: 1 tab - Labs Labs: 04/06/18 15:53 04/06/18 15:53 PT 14.1 Seconds (9.8-13.1) H 04/06/18 15:57 INR 1.3 04/06/18 15:57 APTT 22.0 Seconds (25.6-37.1) L 04/06/18 15:57 - Constitutional Appears: No Acute Distress - ENT Exam ENT Exam: Mucous Membranes Moist - Neck Exam Neck Exam: absent: Lymphadenopathy - Respiratory Exam Respiratory Exam: NORMAL BREATHING PATTERN. 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 And pleural effusion. I suggest pulmonary consult Status post TURP anemia urinary tract infection patient is receiving Zosyn and for pneumonia the plan status post 3 days steroid pulse therapy Patient receiving prednisone by mouth 60 mg that is to be tapered over about 4- 6 weeks rituximab completed more than 60 hr ago patient receiving plasmapheresis and scheduled for tomorrow and Wednesday also patient may need hemodialysis if creatinine continue to rise Status: Acute
[2018-04-08 13:18] LABS: HEMOGLOBIN 9.8 g/dL (12.0-18.0); MEAN CELL VOLUME 82.9 fl (80.0-94.0); MEAN CORPUSCULAR HEMOGLOBIN 27.9 pg (27.0-31.0); MEAN CORPUSCULAR HGB CONC 33.7 g/dL (33.0-37.0); RBC 3.5 Mil/uL (4.40-5.90); WHITE BLOOD COUNT 11.7 K/uL (4.8-10.8)
[2018-04-08 13:31] LABS: ALB/GLOB RATIO 0.6 (1.0-2.1); CALCIUM 7.3 mg/dL (8.4-10.2)
[2018-04-08] MEDS: Metoprolol Succinate 25 mg XL Tab PO SCH (16:33)
--- NOTE | 2018-04-08 22:26 | CP.PCM.PN ---
Subjective - Date & Time of Evaluation Date of Evaluation: 04/08/18 Time of Evaluation: 21:00 - Subjective Subjective: No complaints, tolerated plasmapheresis well. Objective - Vital Signs/Intake and Output Vital Signs (last 24 hours): Temp Pulse Resp BP Pulse Ox 97.8 F 85 20 138/88 98 04/08/18 16:44 04/08/18 16:44 04/08/18 16:44 04/08/18 16:44 04/08/18 16:44 Intake and Output: 04/08/18 04/09/18 18:59 06:59 Intake Total 5030 Balance 5030 - Medications Medications: Current Medications Acetaminophen (Tylenol 325mg Tab) 650 mg PO Q6H PRN PRN Reason: Fever >100.4 F Acetaminophen (Tylenol 325mg Tab) 650 mg PO ONCE ONE Stop: 04/09/18 07:01 Albumin Human (Albumin Human 5% (12.5 Gm/250 Ml)) 200 gm IV ONCE ONE Stop: 04/09/18 07:01 Calcium Acetate (Phoslo) 1,334 mg PO WM [facility] Last Admin: 04/08/18 17:58 Dose: 1,334 mg Diphenhydramine HCl (Benadryl) 50 mg PO ONCE ONE Stop: 04/09/18 07:01 Epoetin Charles (Procrit) 10,000 unit SC TTS [facility] Last Admin: 04/07/18 09:02 Dose: 10,000 unit Ergocalciferol (Drisdol 50,000 Intl Units Cap) 1 cap PO Q7D [facility] Last Admin: 04/03/18 09:30 Dose: 1 cap Famotidine (Pepcid) 20 mg PO DAILY [facility] Last Admin: 04/08/18 09:47 Dose: 20 mg Finasteride (Proscar) 5 mg PO DAILY [facility] Last Admin: 04/08/18 09:48 Dose: 5 mg Fluticasone Propionate (Flonase) 1 spr [facility] DAILY PRN PRN Reason: Nasal congestion Piperacillin Sod/Tazobactam (Sod 2.25 gm/ Sodium Chloride) 100 mls @ 100 mls/ hr IVPB Q12 [facility] PRN Reason: Protocol Last Admin: 04/08/18 21:12 Dose: 100 mls/hr Azithromycin 500 mg/ Sodium (Chloride) 250 mls @ 250 mls/hr IVPB DAILY [facility] PRN Reason: Protocol Last Admin: 04/08/18 09:49 Dose: 250 mls/hr Calcium Gluconate 1,000 mg/ (Sodium Chloride) 260 mls @ 0 mls/hr IVPB ONCE ONE PRN Reason: Per Protocol Stop: 04/09/18 07:01 Methylprednisolone (Solu-Medrol) 120 mg IVP ONCE ONE Stop: 04/09/18 07:01 Metoprolol Succinate (Toprol Xl) 25 mg PO DAILY [facility] Last Admin: 04/08/18 16:33 Dose: Not Given Pantoprazole Sodium (Protonix Ec Tab) 40 mg PO DAILY [facility] Last Admin: 04/08/18 09:48 Dose: 40 mg Prednisone (Prednisone Tab) 60 mg PO DAILY [facility] Last Admin: 04/08/18 09:48 Dose: 60 mg Sodium Bicarbonate (Sodium Bicarbonate Tab) 1,300 mg PO TID [facility] Last Admin: 04/08/18 17:58 Dose: 1,300 mg Tamsulosin HCl (Flomax) 0.4 mg PO QPM [facility] Last Admin: 04/08/18 17:58 Dose: 0.4 mg Tobramycin/Dexamethasone (Tobradex 0.3%-0.1% Opht Oint) 1 appl OD Q8H [facility] Last Admin: 04/08/18 21:13 Dose: 1 applic Vitamin B Complex/Vit C/Folic Acid (Nephro-Jj) 1 tab PO DAILY [facility] Last Admin: 04/08/18 09:47 Dose: 1 tab - Labs Labs: 04/08/18 13:13 04/08/18 13:13 PT 14.1 Seconds (9.8-13.1) H 04/06/18 15:57 INR 1.3 04/06/18 15:57 APTT 22.0 Seconds (25.6-37.1) L 04/06/18 15:57 - Head Exam Head Exam: ATRAUMATIC - Eye Exam Eye Exam: Normal appearance - ENT Exam ENT Exam: Mucous Membranes Dry - Respiratory Exam Respiratory Exam: NORMAL BREATHING PATTERN - Cardiovascular Exam Cardiovascular Exam: +S1, +S2 - GI/Abdominal Exam GI & Abdominal Exam: Normal Bowel Sounds Assessment and Plan (1) Anemia Assessment & Plan: iron deficiency s/p IV iron anemia of CKD on Procrit per renal transfusion support PRN Status: Acute
[2018-04-09] MEDS: Tobramycin/Dexamethasone OPHT OINT OD SCH ×3 (05:50→21:04)
[2018-04-09] MEDS ORDERED: Albumin Human 5% (12.5 gm/250 ml) IV ONE ×3 (07:00→19:30)
[2018-04-09] MEDS: Multivitamin Vitamin B Complex (Nephro-Vite) Tab PO SCH (09:36)
[2018-04-09] MEDS: Pantoprazole 40 mg EC Tab PO SCH (09:37)
[2018-04-09] MEDS: EPOETIN ALFA 10,000 UNIT/ML ML SC SCH (09:37)
[2018-04-09] MEDS: Metoprolol Succinate 25 mg XL Tab PO SCH (09:38)
[2018-04-09] MEDS: Azithromycin 500 MG in Sodium Chloride 0.9% 250 ML IVPB SCH (09:39)
--- NOTE | 2018-04-09 12:41 | CP.PCM.PN ---
Subjective - Date & Time of Evaluation Date of Evaluation: 04/09/18 Time of Evaluation: 12:40 Objective - Vital Signs/Intake and Output Vital Signs (last 24 hours): Temp Pulse Resp BP Pulse Ox 97.8 F 91 H 20 144/71 98 04/09/18 08:28 04/09/18 09:38 04/09/18 08:28 04/09/18 09:38 04/09/18 08:28 Intake and Output: 04/09/18 04/09/18 06:59 18:59 Intake Total 440 Balance 440 - Medications Medications: Current Medications Acetaminophen (Tylenol 325mg Tab) 650 mg PO Q6H PRN PRN Reason: Fever >100.4 F Calcium Acetate (Phoslo) 1,334 mg PO WM [facility] Last Admin: 04/09/18 09:36 Dose: 1,334 mg Epoetin Charles (Procrit) 10,000 unit SC TTS [facility] Last Admin: 04/09/18 09:37 Dose: 10,000 unit Ergocalciferol (Drisdol 50,000 Intl Units Cap) 1 cap PO Q7D [facility] Last Admin: 04/03/18 09:30 Dose: 1 cap Famotidine (Pepcid) 20 mg PO DAILY [facility] Last Admin: 04/09/18 09:37 Dose: 20 mg Finasteride (Proscar) 5 mg PO DAILY [facility] Last Admin: 04/09/18 09:37 Dose: 5 mg Fluticasone Propionate (Flonase) 1 spr [facility] DAILY PRN PRN Reason: Nasal congestion Piperacillin Sod/Tazobactam (Sod 2.25 gm/ Sodium Chloride) 100 mls @ 100 mls/ hr IVPB Q12 [facility] PRN Reason: Protocol Last Admin: 04/09/18 09:39 Dose: 100 mls/hr Azithromycin 500 mg/ Sodium (Chloride) 250 mls @ 250 mls/hr IVPB DAILY [facility] PRN Reason: Protocol Last Admin: 04/09/18 09:39 Dose: 250 mls/hr Metoprolol Succinate (Toprol Xl) 25 mg PO DAILY [facility] Last Admin: 04/09/18 09:38 Dose: 25 mg Pantoprazole Sodium (Protonix Ec Tab) 40 mg PO DAILY [facility] Last Admin: 04/09/18 09:37 Dose: 40 mg Prednisone (Prednisone Tab) 60 mg PO DAILY [facility] Last Admin: 04/09/18 09:36 Dose: 60 mg Sodium Bicarbonate (Sodium Bicarbonate Tab) 1,300 mg PO TID [facility] Last Admin: 04/09/18 09:36 Dose: 1,300 mg Tamsulosin HCl (Flomax) 0.4 mg PO QPM [facility] Last Admin: 04/08/18 17:58 Dose: 0.4 mg Tobramycin/Dexamethasone (Tobradex 0.3%-0.1% Opht Oint) 1 appl OD Q8H [facility] Last Admin: 04/09/18 05:50 Dose: 1 applic Vitamin B Complex/Vit C/Folic Acid (Nephro-Jj) 1 tab PO DAILY [facility] Last Admin: 04/09/18 09:36 Dose: 1 tab - Labs Labs: 04/08/18 13:13 04/08/18 13:13 PT 14.1 Seconds (9.8-13.1) H 04/06/18 15:57 INR 1.3 04/06/18 15:57 APTT 22.0 Seconds (25.6-37.1) L 04/06/18 15:57
--- NOTE | 2018-04-09 18:16 | CP.PCM.PN ---
Subjective - Date & Time of Evaluation Date of Evaluation: 04/09/18 Time of Evaluation: 13:25 - Subjective Subjective: No complaints For 2nd plasmapheresis today Objective - Vital Signs/Intake and Output Vital Signs (last 24 hours): Temp Pulse Resp BP Pulse Ox 97.6 F 85 20 131/77 98 04/09/18 16:08 04/09/18 16:08 04/09/18 16:08 04/09/18 16:08 04/09/18 16:08 Intake and Output: 04/09/18 04/09/18 06:59 18:59 Intake Total 440 Balance 440 - Medications Medications: Current Medications Acetaminophen (Tylenol 325mg Tab) 650 mg PO Q6H PRN PRN Reason: Fever >100.4 F Calcium Acetate (Phoslo) 1,334 mg PO WM [facility] Last Admin: 04/09/18 17:39 Dose: 1,334 mg Diphenhydramine HCl (Benadryl) 50 mg PO ONCE ONE Stop: 04/09/18 18:31 Epoetin Charles (Procrit) 10,000 unit SC TTS [facility] Last Admin: 04/09/18 09:37 Dose: 10,000 unit Ergocalciferol (Drisdol 50,000 Intl Units Cap) 1 cap PO Q7D [facility] Last Admin: 04/03/18 09:30 Dose: 1 cap Famotidine (Pepcid) 20 mg PO DAILY [facility] Last Admin: 04/09/18 09:37 Dose: 20 mg Finasteride (Proscar) 5 mg PO DAILY [facility] Last Admin: 04/09/18 09:37 Dose: 5 mg Fluticasone Propionate (Flonase) 1 spr [facility] DAILY PRN PRN Reason: Nasal congestion Piperacillin Sod/Tazobactam (Sod 2.25 gm/ Sodium Chloride) 100 mls @ 100 mls/ hr IVPB Q12 [facility] PRN Reason: Protocol Last Admin: 04/09/18 09:39 Dose: 100 mls/hr Azithromycin 500 mg/ Sodium (Chloride) 250 mls @ 250 mls/hr IVPB DAILY [facility] PRN Reason: Protocol Last Admin: 04/09/18 09:39 Dose: 250 mls/hr Methylprednisolone (Solu-Medrol) 120 mg IVP ONCE ONE Stop: 04/09/18 18:31 Metoprolol Succinate (Toprol Xl) 25 mg PO DAILY [facility] Last Admin: 04/09/18 09:38 Dose: 25 mg Pantoprazole Sodium (Protonix Ec Tab) 40 mg PO DAILY [facility] Last Admin: 04/09/18 09:37 Dose: 40 mg Prednisone (Prednisone Tab) 60 mg PO DAILY [facility] Last Admin: 04/09/18 09:36 Dose: 60 mg Sodium Bicarbonate (Sodium Bicarbonate Tab) 1,300 mg PO TID [facility] Last Admin: 04/09/18 17:39 Dose: 1,300 mg Tamsulosin HCl (Flomax) 0.4 mg PO QPM [facility] Last Admin: 04/09/18 17:39 Dose: 0.4 mg Tobramycin/Dexamethasone (Tobradex 0.3%-0.1% Opht Oint) 1 appl OD Q8H [facility] Last Admin: 04/09/18 13:18 Dose: 1 applic Vitamin B Complex/Vit C/Folic Acid (Nephro-Jj) 1 tab PO DAILY [facility] Last Admin: 04/09/18 09:36 Dose: 1 tab - Labs Labs: 04/08/18 13:13 04/08/18 13:13 PT 14.1 Seconds (9.8-13.1) H 04/06/18 15:57 INR 1.3 04/06/18 15:57 APTT 22.0 Seconds (25.6-37.1) L 04/06/18 15:57 - Head Exam Head Exam: ATRAUMATIC - Eye Exam Eye Exam: Normal appearance - ENT Exam ENT Exam: Mucous Membranes Dry - Respiratory Exam Respiratory Exam: NORMAL BREATHING PATTERN - Cardiovascular Exam Cardiovascular Exam: +S1, +S2 - GI/Abdominal Exam GI & Abdominal Exam: Normal Bowel Sounds Assessment and Plan (1) Anemia Assessment & Plan: iron deficiency s/p IV iron anemia of CKD on Procrit per renal transfusion support PRN Status: Acute
--- NOTE | 2018-04-10 04:36 | CP.PCM.PN ---
Subjective - Date & Time of Evaluation Date of Evaluation: 04/08/18 Time of Evaluation: 20:25 - Subjective Subjective: Seen and examined at the bed side. Continue to have worsening Renal failure. S/ P Plasmaphersis Day#1. Denies fever or chills. Objective - Vital Signs/Intake and Output Vital Signs (last 24 hours): Temp Pulse Resp BP Pulse Ox 98.1 F 93 H 20 144/85 98 04/10/18 01:00 04/10/18 01:00 04/10/18 01:00 04/10/18 01:00 04/10/18 01:00 - Medications Medications: Current Medications Acetaminophen (Tylenol 325mg Tab) 650 mg PO Q6H PRN PRN Reason: Fever >100.4 F Albumin Human (Albumin Human 5% (12.5 Gm/250 Ml)) 200 gm IV ONCE ONE Stop: 04/10/18 09:01 Calcium Acetate (Phoslo) 1,334 mg PO WM [facility] Last Admin: 04/09/18 17:39 Dose: 1,334 mg Diphenhydramine HCl (Benadryl) 50 mg PO ONCE ONE Stop: 04/10/18 08:01 Epoetin Charles (Procrit) 10,000 unit SC TTS [facility] Last Admin: 04/09/18 09:37 Dose: 10,000 unit Ergocalciferol (Drisdol 50,000 Intl Units Cap) 1 cap PO Q7D [facility] Last Admin: 04/03/18 09:30 Dose: 1 cap Famotidine (Pepcid) 20 mg PO DAILY [facility] Last Admin: 04/09/18 09:37 Dose: 20 mg Finasteride (Proscar) 5 mg PO DAILY [facility] Last Admin: 04/09/18 09:37 Dose: 5 mg Fluticasone Propionate (Flonase) 1 spr [facility] DAILY PRN PRN Reason: Nasal congestion Piperacillin Sod/Tazobactam (Sod 2.25 gm/ Sodium Chloride) 100 mls @ 100 mls/ hr IVPB Q12 [facility] PRN Reason: Protocol Last Admin: 04/09/18 21:04 Dose: 100 mls/hr Azithromycin 500 mg/ Sodium (Chloride) 250 mls @ 250 mls/hr IVPB DAILY [facility] PRN Reason: Protocol Last Admin: 04/09/18 09:39 Dose: 250 mls/hr Calcium Gluconate 1,000 mg/ (Sodium Chloride) 260 mls @ 260 mls/hr IVPB ONCE ONE PRN Reason: Per Protocol Stop: 04/10/18 08:59 Methylprednisolone (Solu-Medrol) 120 mg IVP ONCE ONE Stop: 04/10/18 08:01 Metoprolol Succinate (Toprol Xl) 25 mg PO DAILY [facility] Last Admin: 04/09/18 09:38 Dose: 25 mg Pantoprazole Sodium (Protonix Ec Tab) 40 mg PO DAILY [facility] Last Admin: 04/09/18 09:37 Dose: 40 mg Prednisone (Prednisone Tab) 60 mg PO DAILY [facility] Last Admin: 04/09/18 09:36 Dose: 60 mg Sodium Bicarbonate (Sodium Bicarbonate Tab) 1,300 mg PO TID [facility] Last Admin: 04/09/18 17:39 Dose: 1,300 mg Tamsulosin HCl (Flomax) 0.4 mg PO QPM [facility] Last Admin: 04/09/18 17:39 Dose: 0.4 mg Tobramycin/Dexamethasone (Tobradex 0.3%-0.1% Opht Oint) 1 appl OD Q8H [facility] Last Admin: 04/09/18 21:04 Dose: 1 applic Vitamin B Complex/Vit C/Folic Acid (Nephro-Jj) 1 tab PO DAILY [facility] Last Admin: 04/09/18 09:36 Dose: 1 tab - Labs Labs: 04/08/18 13:13 04/08/18 13:13 PT 14.1 Seconds (9.8-13.1) H 04/06/18 15:57 INR 1.3 04/06/18 15:57 APTT 22.0 Seconds (25.6-37.1) L 04/06/18 15:57 Assessment and Plan (1) Altered mental status Assessment & Plan: Continue to Monitor Status: Resolved (2) Severe anemia S/P 6 Units of PRBCs, Hgb 9.0mg/dl Assessment & Plan: No New Complaint. H/H continue to be Low and on Iron Infusion. Monitor H/H Status: Acute (3) Hyperkalemia-Resolved Assessment & Plan: Monitor Status: Resolved (4) Acute on chronic renal failure, S/P Biopsy, Gross Hematuria- Worsening Repeat K 4.7 from 5.4 Status: Acute Monitor BMP IVF Going for Cystotsopy (5) New onset A-fib- Rate Controlled Status: Acute (6) Thrombocytosis- Improved Status: Acute
--- NOTE | 2018-04-10 04:39 | CP.PCM.PN ---
Subjective - Date & Time of Evaluation Date of Evaluation: 04/09/18 Time of Evaluation: 22:20 Objective - Vital Signs/Intake and Output Vital Signs (last 24 hours): Temp Pulse Resp BP Pulse Ox 98.1 F 93 H 20 144/85 98 04/10/18 01:00 04/10/18 01:00 04/10/18 01:00 04/10/18 01:00 04/10/18 01:00 - Medications Medications: Current Medications Acetaminophen (Tylenol 325mg Tab) 650 mg PO Q6H PRN PRN Reason: Fever >100.4 F Albumin Human (Albumin Human 5% (12.5 Gm/250 Ml)) 200 gm IV ONCE ONE Stop: 04/10/18 09:01 Calcium Acetate (Phoslo) 1,334 mg PO WM [facility] Last Admin: 04/09/18 17:39 Dose: 1,334 mg Diphenhydramine HCl (Benadryl) 50 mg PO ONCE ONE Stop: 04/10/18 08:01 Epoetin [facility] (Procrit) 10,000 unit SC TTS [facility] Last Admin: 04/09/18 09:37 Dose: 10,000 unit Ergocalciferol (Drisdol 50,000 Intl Units Cap) 1 cap PO Q7D [facility] Last Admin: 04/03/18 09:30 Dose: 1 cap Famotidine (Pepcid) 20 mg PO DAILY [facility] Last Admin: 04/09/18 09:37 Dose: 20 mg Finasteride (Proscar) 5 mg PO DAILY [facility] Last Admin: 04/09/18 09:37 Dose: 5 mg Fluticasone Propionate (Flonase) 1 spr [facility] DAILY PRN PRN Reason: Nasal congestion Piperacillin Sod/Tazobactam (Sod 2.25 gm/ Sodium Chloride) 100 mls @ 100 mls/ hr IVPB Q12 [facility] PRN Reason: Protocol Last Admin: 04/09/18 21:04 Dose: 100 mls/hr Azithromycin 500 mg/ Sodium (Chloride) 250 mls @ 250 mls/hr IVPB DAILY [facility] PRN Reason: Protocol Last Admin: 04/09/18 09:39 Dose: 250 mls/hr Calcium Gluconate 1,000 mg/ (Sodium Chloride) 260 mls @ 260 mls/hr IVPB ONCE ONE PRN Reason: Per Protocol Stop: 04/10/18 08:59 Methylprednisolone (Solu-Medrol) 120 mg IVP ONCE ONE Stop: 04/10/18 08:01 Metoprolol Succinate (Toprol Xl) 25 mg PO DAILY [facility] Last Admin: 04/09/18 09:38 Dose: 25 mg Pantoprazole Sodium (Protonix Ec Tab) 40 mg PO DAILY [facility] Last Admin: 04/09/18 09:37 Dose: 40 mg Prednisone (Prednisone Tab) 60 mg PO DAILY [facility] Last Admin: 04/09/18 09:36 Dose: 60 mg Sodium Bicarbonate (Sodium Bicarbonate Tab) 1,300 mg PO TID [facility] Last Admin: 04/09/18 17:39 Dose: 1,300 mg Tamsulosin HCl (Flomax) 0.4 mg PO QPM [facility] Last Admin: 04/09/18 17:39 Dose: 0.4 mg Tobramycin/Dexamethasone (Tobradex 0.3%-0.1% Opht Oint) 1 appl OD Q8H [facility] Last Admin: 04/09/18 21:04 Dose: 1 applic Vitamin B Complex/Vit C/Folic Acid (Nephro-Jj) 1 tab PO DAILY [facility] Last Admin: 04/09/18 09:36 Dose: 1 tab - Labs Labs: 04/08/18 13:13 04/08/18 13:13 PT 14.1 Seconds (9.8-13.1) H 04/06/18 15:57 INR 1.3 04/06/18 15:57 APTT 22.0 Seconds (25.6-37.1) L 04/06/18 15:57 Assessment and Plan (1) Altered mental status Assessment & Plan: Continue to Monitor Status: Resolved (2) Severe anemia S/P 6 Units of PRBCs, Hgb 9.0mg/dl Assessment & Plan: No New Complaint. H/H continue to be Low and on Iron Infusion. Monitor H/H Status: Acute (3) Hyperkalemia-Resolved Assessment & Plan: Monitor Status: Resolved (4) Acute on chronic renal failure, S/P Biopsy, Gross Hematuria- Worsening Repeat K 4.7 from 5.4 Status: Acute Monitor BMP IVF Going for Cystotsopy (5) New onset A-fib- Rate Controlled Status: Acute (6) Thrombocytosis- Improved Status: Acute
[2018-04-10] MEDS: Tobramycin/Dexamethasone OPHT OINT OD SCH ×3 (04:51→21:54)
[2018-04-10 05:57] LABS: HEMOGLOBIN 8.9 g/dL (12.0-18.0); MEAN CELL VOLUME 84.6 fl (80.0-94.0); MEAN CORPUSCULAR HEMOGLOBIN 27.5 pg (27.0-31.0); MEAN CORPUSCULAR HGB CONC 32.5 g/dL (33.0-37.0); RBC 3.23 Mil/uL (4.40-5.90); RED CELL DISTRIBUTION WIDTH 31.8 % (11.5-14.5); WHITE BLOOD COUNT 10.4 K/uL (4.8-10.8)
[2018-04-10 06:15] LABS: INR 1.3; PARTIAL THROMBOPLASTIN TIME 30.6 Seconds (25.6-37.1); PROTHROMBIN TIME 14.5 Seconds (9.8-13.1)
[2018-04-10 06:23] LABS: ALBUMIN 2.2 g/dL (3.5-5.0)
[2018-04-10] MEDS: Multivitamin Vitamin B Complex (Nephro-Vite) Tab PO SCH (08:57)
[2018-04-10] MEDS: Metoprolol Succinate 25 mg XL Tab PO SCH (08:58)
[2018-04-10] MEDS: Pantoprazole 40 mg EC Tab PO SCH (08:59)
[2018-04-10] MEDS: Ergocalciferol 50,000 Intl Units Cap PO SCH (08:59)
[2018-04-10] MEDS ORDERED: Albumin Human 5% (12.5 gm/250 ml) IV ONE (09:00)
[2018-04-10] MEDS: Azithromycin 500 MG in Sodium Chloride 0.9% 250 ML IVPB SCH (09:01)
[2018-04-10] MEDS ORDERED: Albuterol 0.042% Inhal Sol (1.25 mg/3 mL) UD INH PRN (16:54)
[2018-04-10] MEDS ORDERED: Albuterol 0.083% Inhal Sol (2.5 mg/3 mL) UD ONE (16:56)
[2018-04-10] MEDS: Albuterol 0.042% Inhal Sol (1.25 mg/3 mL) UD INH PRN (17:02)
--- NOTE | 2018-04-10 20:46 | CP.PCM.PN ---
Subjective - Date & Time of Evaluation Date of Evaluation: 04/10/18 Time of Evaluation: 12:30 - Subjective Subjective: Patient has some periods of confusion. Noted multiple bilateral infiltrates Has no fever Urine showed E coli Currently on Zithromax. Has been afebrile. Objective - Vital Signs/Intake and Output Vital Signs (last 24 hours): Temp Pulse Resp BP Pulse Ox 97.6 F 92 H 20 136/82 99 04/10/18 17:06 04/10/18 17:06 04/10/18 17:06 04/10/18 17:06 04/10/18 17:06 Intake and Output: 04/10/18 04/11/18 18:59 06:59 Output Total 200 Balance -200 - Medications Medications: Current Medications Acetaminophen (Tylenol 325mg Tab) 650 mg PO Q6H PRN PRN Reason: Fever >100.4 F Acetaminophen (Tylenol 325mg Tab) 650 mg PO ONCE ONE Stop: 04/11/18 10:01 Albumin Human (Albumin Human 5% (12.5 Gm/250 Ml)) 200 gm IV ONCE ONE Stop: 04/11/18 10:01 Albuterol Sulfate (Albuterol 0.042% Inhal Soco (1.25mg/3ml) Ud) 2.5 mg INH RQ6 PRN PRN Reason: Shortness of Breath Last Admin: 04/10/18 17:02 Dose: 2.5 mg Calcium Acetate (Phoslo) 1,334 mg PO WM [facility] Last Admin: 04/10/18 17:46 Dose: 1,334 mg Diphenhydramine HCl (Benadryl) 50 mg PO ONCE ONE Stop: 04/11/18 10:01 Epoetin Charles (Procrit) 10,000 unit SC TTS [facility] Last Admin: 04/09/18 09:37 Dose: 10,000 unit Ergocalciferol (Drisdol 50,000 Intl Units Cap) 1 cap PO Q7D [facility] Last Admin: 04/10/18 08:59 Dose: 1 cap Famotidine (Pepcid) 20 mg PO DAILY [facility] Last Admin: 04/10/18 08:57 Dose: 20 mg Finasteride (Proscar) 5 mg PO DAILY [facility] Last Admin: 04/10/18 08:57 Dose: 5 mg Fluticasone Propionate (Flonase) 1 spr [facility] DAILY PRN PRN Reason: Nasal congestion Azithromycin 500 mg/ Sodium (Chloride) 250 mls @ 250 mls/hr IVPB DAILY [facility] PRN Reason: Protocol Last Admin: 04/10/18 09:01 Dose: 250 mls/hr Calcium Gluconate 1,000 mg/ (Sodium Chloride) 260 mls @ 100 mls/hr IVPB ONCE ONE Stop: 04/11/18 12:35 Methylprednisolone (Solu-Medrol) 120 mg IVP ONCE ONE Stop: 04/11/18 10:01 Metoprolol Succinate (Toprol Xl) 25 mg PO DAILY [facility] Last Admin: 04/10/18 08:58 Dose: 25 mg Pantoprazole Sodium (Protonix Ec Tab) 40 mg PO DAILY [facility] Last Admin: 04/10/18 08:59 Dose: 40 mg Sodium Bicarbonate (Sodium Bicarbonate Tab) 1,300 mg PO TID [facility] Last Admin: 04/10/18 17:20 Dose: 1,300 mg Tamsulosin HCl (Flomax) 0.4 mg PO QPM [facility] Last Admin: 04/10/18 17:19 Dose: 0.4 mg Tobramycin/Dexamethasone (Tobradex 0.3%-0.1% Opht Oint) 1 appl OD Q8H [facility] Last Admin: 04/10/18 12:32 Dose: 1 applic Vitamin B Complex/Vit C/Folic Acid (Nephro-Jj) 1 tab PO DAILY [facility] Last Admin: 04/10/18 08:57 Dose: 1 tab - Labs Labs: 04/10/18 05:40 04/10/18 05:40 PT 14.5 Seconds (9.8-13.1) H 04/10/18 05:40 INR 1.3 04/10/18 05:40 APTT 30.6 Seconds (25.6-37.1) 04/10/18 05:40 - Head Exam Head Exam: NORMAL INSPECTION - Eye Exam Eye Exam: Normal appearance - ENT Exam ENT Exam: Mucous Membranes Moist - Respiratory Exam Respiratory Exam: Decreased Breath Sounds, Rhonchi - Cardiovascular Exam Cardiovascular Exam: REGULAR RHYTHM - GI/Abdominal Exam GI & Abdominal Exam: Normal Bowel Sounds - Neurological Exam Neurological Exam: Altered, Awake Assessment and Plan (1) Pneumonia Status: Acute (2) Pulmonary nodules/lesions, multiple Status: Acute (3) Anemia Status: Acute (4) Renal failure Status: Acute (5) Severe anemia Status: Acute (6) UTI (urinary tract infection) Status: Acute - Assessment and Plan (Free Text) Plan: ]Add Rocephin for pneumonia and UTI Pulmonary eval infiltrate vs nodules? cont all meds resp tx may need PET scan?
[2018-04-11] MEDS: Tobramycin/Dexamethasone OPHT OINT OD SCH ×3 (05:24→20:49)
[2018-04-11] MEDS: Albuterol 0.042% Inhal Sol (1.25 mg/3 mL) UD INH PRN (08:14)
[2018-04-11 08:32] LABS: HEMOGLOBIN 8.9 g/dL (12.0-18.0); LYMPH # 0.3 K/uL (1.0-4.3); LYMPH % 3.2 % (20.0-40.0); MEAN CELL VOLUME 83.9 fl (80.0-94.0); MEAN CORPUSCULAR HEMOGLOBIN 27.7 pg (27.0-31.0); MEAN PLATELET VOLUME 7.1 fl (7.2-11.7); MONO # 0.9 K/uL (0.0-0.8); MONO % 8.1 % (0.0-10.0); NEUT # 9.5 K/uL (1.8-7.0); NEUT % 88.7 % (50.0-75.0); NRBC % 0.2 % (0.0-0.0); PLATELET COUNT 201 K/uL (130-400); RBC 3.21 Mil/uL (4.40-5.90); RED CELL DISTRIBUTION WIDTH 32.1 % (11.5-14.5); WHITE BLOOD COUNT 10.7 K/uL (4.8-10.8)
[2018-04-11] MEDS: Pantoprazole 40 mg EC Tab PO SCH ×2 (08:40→17:48)
[2018-04-11] MEDS: Multivitamin Vitamin B Complex (Nephro-Vite) Tab PO SCH ×2 (08:40→17:47)
[2018-04-11] MEDS: Metoprolol Succinate 25 mg XL Tab PO SCH (08:41)
[2018-04-11] MEDS: Azithromycin 500 MG in Sodium Chloride 0.9% 250 ML IVPB SCH (08:42)
[2018-04-11 08:43] LABS: INR 1.5; PROTHROMBIN TIME 16.9 Seconds (9.8-13.1)
[2018-04-11 08:45] LABS: PARTIAL THROMBOPLASTIN TIME 43.9 Seconds (25.6-37.1)
[2018-04-11 08:47] LABS: ALB/GLOB RATIO 1.6 (1.0-2.1); ALBUMIN 2.7 g/dL (3.5-5.0); ALT/SGPT 22 U/L (21-72); AST/SGOT 25 U/L (17-59); BLOOD UREA NITROGEN 84 mg/dl (9-20); CALCIUM 8.2 mg/dL (8.4-10.2); GFR NON-AFRICAN AMERICAN 9
[2018-04-11] MEDS ORDERED: Phytonadione 10 mg/ml Inj (Adult) IV ONE (09:47)
[2018-04-11] MEDS ORDERED: Albumin Human 5% (12.5 gm/250 ml) IV ONE (10:00)
--- NOTE | 2018-04-11 10:09 | CP.PCM.PN ---
Subjective - Date & Time of Evaluation Date of Evaluation: 04/11/18 Time of Evaluation: 10:07 - Subjective Subjective: intermittent confusion. Vital sign appear to be stable Patient received plasma phoresis twice Patient to receive more plasma phoresis today with replacement fluid 5% albumin Worsening kidney function serum creatinine up to 6 Objective - Vital Signs/Intake and Output Vital Signs (last 24 hours): Temp Pulse Resp BP Pulse Ox 97.5 F L 93 H 19 141/82 97 04/11/18 07:55 04/11/18 08:41 04/11/18 07:55 04/11/18 08:41 04/11/18 07:55 - Medications Medications: Current Medications Acetaminophen (Tylenol 325mg Tab) 650 mg PO Q6H PRN PRN Reason: Fever >100.4 F Albuterol Sulfate (Albuterol 0.042% Inhal Sooc (1.25mg/3ml) Ud) 2.5 mg INH RQ6 PRN PRN Reason: Shortness of Breath Last Admin: 04/11/18 08:14 Dose: 2.5 mg Calcium Acetate (Phoslo) 1,334 mg PO WM [facility] Last Admin: 04/11/18 08:40 Dose: Not Given Epoetin Charles (Procrit) 10,000 unit SC TTS [facility] Last Admin: 04/09/18 09:37 Dose: 10,000 unit Ergocalciferol (Drisdol 50,000 Intl Units Cap) 1 cap PO Q7D [facility] Last Admin: 04/10/18 08:59 Dose: 1 cap Famotidine (Pepcid) 20 mg PO DAILY [facility] Last Admin: 04/11/18 08:40 Dose: Not Given Finasteride (Proscar) 5 mg PO DAILY [facility] Last Admin: 04/11/18 08:40 Dose: Not Given Fluticasone Propionate (Flonase) 1 spr [facility] DAILY PRN PRN Reason: Nasal congestion Azithromycin 500 mg/ Sodium (Chloride) 250 mls @ 250 mls/hr IVPB DAILY [facility] PRN Reason: Protocol Last Admin: 04/11/18 08:42 Dose: 250 mls/hr Calcium Gluconate 1,000 mg/ (Sodium Chloride) 260 mls @ 100 mls/hr IVPB ONCE ONE Stop: 04/11/18 12:35 Ceftriaxone Sodium 1 gm/ (Sodium Chloride) 100 mls @ 100 mls/hr IVPB DAILY [facility] PRN Reason: Protocol Last Admin: 04/11/18 08:42 Dose: 100 mls/hr Piperacillin Sod/Tazobactam (Sod 2.25 gm/ Sodium Chloride) 100 mls @ 100 mls/ hr IVPB Q12 [facility] PRN Reason: Protocol Stop: 04/18/18 10:16 Metoprolol Succinate (Toprol Xl) 25 mg PO DAILY [facility] Last Admin: 04/11/18 08:41 Dose: 25 mg Pantoprazole Sodium (Protonix Ec Tab) 40 mg PO DAILY [facility] Last Admin: 04/11/18 08:40 Dose: Not Given Phytonadione (Vitamin K Inj) 10 mg IV ONCE ONE Stop: 04/11/18 09:48 Sodium Bicarbonate (Sodium Bicarbonate Tab) 1,300 mg PO TID [facility] Last Admin: 04/11/18 08:40 Dose: Not Given Tamsulosin HCl (Flomax) 0.4 mg PO QPM [facility] Last Admin: 04/10/18 17:19 Dose: 0.4 mg Tobramycin/Dexamethasone (Tobradex 0.3%-0.1% Opht Oint) 1 appl OD Q8H [facility] Last Admin: 04/11/18 05:24 Dose: 1 applic Vitamin B Complex/Vit C/Folic Acid (Nephro-Jj) 1 tab PO DAILY [facility] Last Admin: 04/11/18 08:40 Dose: Not Given - Labs Labs: 04/11/18 08:17 04/11/18 08:17 PT 16.9 Seconds (9.8-13.1) H 04/11/18 08:17 INR 1.5 04/11/18 08:17 APTT 43.9 Seconds (25.6-37.1) H 04/11/18 08:17 - Constitutional Appears: No Acute Distress - Eye Exam Eye Exam: Conjunctival injection - ENT Exam ENT Exam: Mucous Membranes Moist - Neck Exam Neck Exam: absent: Lymphadenopathy - Respiratory Exam Respiratory Exam: Rales. 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 And pleural effusion. Status post TURP anemia urinary tract infection patient is receiving Zosyn pneumonia gross hematuria this morning patient is going for cystoscopy the plan Patient received twice plasma phoresis plasma phoresis put on hold today because of the low fibrinogen level Worsening kidney function patient will need dialysis we will scheduled for tomorrow Patient already receive 3 days pulses steroid Patient already received 1 dose of rituximab 1 g And the patient has not been responsive to treatment so far Status: Acute
[2018-04-11] MEDS ORDERED: Phytonadione 10 MG in Sodium Chloride 0.9% 50 ML IV ONE (11:15)
--- NOTE | 2018-04-11 12:54 | CT ---
Date of service: 04/11/2018 PROCEDURE: CT HEAD WITHOUT CONTRAST. HISTORY: s/p fall, Headache COMPARISON: 03/21/2018 TECHNIQUE: Axial computed tomography images were obtained through the head/brain without intravenous contrast. Coronal and sagittal reconstructed images. Radiation dose: Total exam DLP = 871.42 mGy-cm. This CT exam was performed using one or more of the following dose reduction techniques: Automated exposure control, adjustment of the mA and/or kV according to patient size, and/or use of iterative reconstruction technique. FINDINGS: HEMORRHAGE: No intracranial hemorrhage. BRAIN: No mass effect or edema. Cortical atrophy and chronic microvascular ischemic change. VENTRICLES: Unremarkable. No hydrocephalus. CALVARIUM: Unremarkable. PARANASAL SINUSES: Unremarkable as visualized. No significant inflammatory changes. MASTOID AIR CELLS: Unremarkable as visualized. No inflammatory changes. OTHER FINDINGS: None. IMPRESSION: No acute intracranial abnormalities. No significant findings to account for the clinical presentation. No significant interval change compared to the prior examination(s).
--- NOTE | 2018-04-11 13:19 | RAD ---
Date of service: 04/11/2018 PROCEDURE: Radiographs of the Lumbar Spine. HISTORY: s/p fall COMPARISON: No prior. FINDINGS: BONES: Normal alignment. No listhesis. No fracture. DISC SPACES: Multilevel degenerative changes primarily disc space narrowing and non marginal osteophyte formation. OTHER FINDINGS: None. IMPRESSION: No acute findings related to/accounting for the clinical presentation. Additional benign and/or incidental findings described above.
--- NOTE | 2018-04-11 13:19 | RAD ---
Date of service: 04/11/2018 PROCEDURE: Pelvis and bilateral hips HISTORY: s/p fall COMPARISON: None TECHNIQUE: Standard protocol for this study/examination. FINDINGS: There are no osseous abnormalities to suggest fracture. The pelvic ring is intact. Preserved femoral-acetabular relationship. Negative study for protrusio, subluxation or dislocation. Degenerative changes: Mild and symmetrical. IMPRESSION: No acute findings related to/accounting for the clinical presentation.
[2018-04-11 13:42] LABS: ANISOCYTOSIS MARKED; HYPOCHROMIC SLIGHT; LYMPHOCYTE 6 % (20-50); MONOCYTE 5 % (0-10); NEUTROPHIL 89 % (42-75); PLATELET ESTIMATE NORMAL (NORMAL); TOTAL CELLS COUNTED 100
[2018-04-11 13:43] LABS: BURR CELLS SLIGHT; OVALOCYTES SLIGHT; SCHISTOCYTES SLIGHT; TEARDROP CELLS SLIGHT
--- NOTE | 2018-04-11 17:31 | CP.PCM.CON ---
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 He also has been found to have moderate pleural effusions bilaterally. He denies any prior history of lung disease, and also denies any SOB, cough, hemoptysis or chest discomfort at the present time. He is a former heavy cigarette smoker who stopped this habit many years ago. Past Patient History - Infectious Disease Hx of Infectious Diseases: None - Past Medical History & Family History Past Medical History?: Yes Past Family History: Reviewed and not pertinent - Past Social History Smoking Status: Former Smoker Alcohol: None Drugs: Denies Home Situation {Lives}: Alone - CARDIAC Hx Hypertension: No - PULMONARY Hx Respiratory Disorders: No - NEUROLOGICAL Hx Neurological Disorder: No - HEENT Hx HEENT Problems: Yes - RENAL Other/Comment: ARF/GN - ENDOCRINE/METABOLIC Hx Endocrine Disorders: No - HEMATOLOGICAL/ONCOLOGICAL Hx Anemia: Yes Hx Blood Transfusions: Yes - INTEGUMENTARY Hx Dermatological Problems: No - MUSCULOSKELETAL/RHEUMATOLOGICAL Hx Arthritis: Yes - GASTROINTESTINAL Hx Gastrointestinal Disorders: No - GENITOURINARY/GYNECOLOGICAL Hx Prostate Cancer: Yes - PSYCHIATRIC Hx Psychophysiologic Disorder: No - SURGICAL HISTORY Hx Appendectomy: Yes Other/Comment: TURP - ANESTHESIA Hx Anesthesia: Yes Hx Anesthesia Reactions: No Hx Malignant Hyperthermia: No Meds Allergies/Adverse Reactions: Allergies Allergy/AdvReac Type Severity Reaction Status Date / Time No Known Allergies Allergy Verified 01/02/14 08:07 - Medications Medications: Current Medications Acetaminophen (Tylenol 325mg Tab) 650 mg PO Q6H PRN PRN Reason: Fever >100.4 F Albuterol Sulfate (Albuterol 0.042% Inhal Soco (1.25mg/3ml) Ud) 2.5 mg INH RQ6 PRN PRN Reason: Shortness of Breath Last Admin: 04/11/18 08:14 Dose: 2.5 mg Calcium Acetate (Phoslo) 1,334 mg PO WM [facility] Last Admin: 04/11/18 12:52 Dose: Not Given Epoetin Charles (Procrit) 10,000 unit SC TTS [facility] Last Admin: 04/09/18 09:37 Dose: 10,000 unit Ergocalciferol (Drisdol 50,000 Intl Units Cap) 1 cap PO Q7D [facility] Last Admin: 04/10/18 08:59 Dose: 1 cap Famotidine (Pepcid) 20 mg PO DAILY [facility] Last Admin: 04/11/18 08:40 Dose: Not Given Finasteride (Proscar) 5 mg PO DAILY [facility] Last Admin: 04/11/18 08:40 Dose: Not Given Fluticasone Propionate (Flonase) 1 spr [facility] DAILY PRN PRN Reason: Nasal congestion Azithromycin 500 mg/ Sodium (Chloride) 250 mls @ 250 mls/hr IVPB DAILY [facility] PRN Reason: Protocol Last Admin: 04/11/18 08:42 Dose: 250 mls/hr Ceftriaxone Sodium 1 gm/ (Sodium Chloride) 100 mls @ 100 mls/hr IVPB DAILY [facility] PRN Reason: Protocol Last Admin: 04/11/18 08:42 Dose: 100 mls/hr Piperacillin Sod/Tazobactam (Sod 2.25 gm/ Sodium Chloride) 100 mls @ 100 mls/ hr IVPB Q12 [facility] PRN Reason: Protocol Stop: 04/18/18 10:16 Last Admin: 04/11/18 13:30 Dose: 100 mls/hr Metoprolol Succinate (Toprol Xl) 25 mg PO DAILY [facility] Last Admin: 04/11/18 08:41 Dose: 25 mg Pantoprazole Sodium (Protonix Ec Tab) 40 mg PO DAILY [facility] Last Admin: 04/11/18 08:40 Dose: Not Given Sodium Bicarbonate (Sodium Bicarbonate Tab) 1,300 mg PO TID [facility] Last Admin: 04/11/18 12:52 Dose: Not Given Tamsulosin HCl (Flomax) 0.4 mg PO QPM [facility] Last Admin: 04/10/18 17:19 Dose: 0.4 mg Tobramycin/Dexamethasone (Tobradex 0.3%-0.1% Opht Oint) 1 appl OD Q8H [facility] Last Admin: 04/11/18 13:31 Dose: 1 applic Vitamin B Complex/Vit C/Folic Acid (Nephro-Jj) 1 tab PO DAILY [facility] Last Admin: 04/11/18 08:40 Dose: Not Given Physical Exam - Additional Findings Additional findings: The patient is awake and alert, very hard of hearing. Appears to answer questions appropriately. Does not appear acutely short of breath. No palpable lymphadenopathy. Neck supple and trachea is midline. No neck vein distention noted. No dullness on chest percussion, equal expansion. Medium rales are heard primarily over the right lung posteriorly in the right upper and lower lobes. No bronchial breathing or egophony. No audible wheezing. Left lung has few scattered rhonchi. Heart sounds appear to be distant rhythm is irregular tachycardic. Abdomen is soft and nontender. Dependent edema noted bilaterally without cyanosis. No calf tenderness. Results - Vital Signs Recent Vital Signs: Last Vital Signs Temp 98 F 04/11/18 16:51 Pulse 93 H 04/11/18 16:51 Resp 20 04/11/18 16:51 BP 138/83 04/11/18 16:51 Pulse Ox 98 04/11/18 16:51 - Labs Result Diagrams: 04/15/18 08:15 04/15/18 08:15 Labs: Laboratory Results - last 24 hr 04/11/18 04/11/18 04/11/18 08:17 08:17 08:17 WBC 10.7 RBC 3.21 L Hgb 8.9 L Hct 27.0 L MCV 83.9 MCH 27.7 MCHC 33.0 RDW 32.1 H Plt Count 201 MPV 7.1 L Neut % (Auto) 88.7 H Lymph % (Auto) 3.2 L [place] % (Auto) 8.1 Eos % (Auto) 0.0 Baso % (Auto) 0.0 Neut # (Auto) 9.5 H Lymph # (Auto) 0.3 L [place] # (Auto) 0.9 H Eos # (Auto) 0.0 Baso # (Auto) 0.0 Neutrophils % (Manual) 89 H Lymphocytes % (Manual) 6 L Monocytes % (Manual) 5 Platelet Estimate Normal Hypochromasia (manual) Slight Anisocytosis (manual) Marked Tear Drop Cells Slight Ovalocytes Slight Yi Cells Slight Schistocytes Slight PT 16.9 H INR 1.5 APTT 43.9 H Fibrinogen 84 L* Sodium 137 Potassium 4.2 Chloride 110 H Carbon Dioxide 13 L Anion Gap 18 BUN 84 H Creatinine 6.0 H Est GFR ( Amer) 11 Est GFR (Non-Af Amer) 9 Random Glucose 100 Calcium 8.2 L Total Bilirubin 0.7 AST 25 ALT 22 Alkaline Phosphatase < 20 L D Total Protein 4.5 L Albumin 2.7 L D Globulin 1.7 L Albumin/Globulin Ratio 1.6 Blood Type Antibody Screen Crossmatch BBK History Checked 04/11/18 13:45 WBC RBC Hgb Hct MCV MCH MCHC RDW Plt Count MPV Neut % (Auto) Lymph % (Auto) [place] % (Auto) Eos % (Auto) Baso % (Auto) Neut # (Auto) Lymph # (Auto) [place] # (Auto) Eos # (Auto) Baso # (Auto) Neutrophils % (Manual) Lymphocytes % (Manual) Monocytes % (Manual) Platelet Estimate Hypochromasia (manual) Anisocytosis (manual) Tear Drop Cells Ovalocytes Yi Cells Schistocytes PT INR APTT Fibrinogen Sodium Potassium Chloride Carbon Dioxide Anion Gap BUN Creatinine Est GFR ( Amer) Est GFR (Non-Af Amer) Random Glucose Calcium Total Bilirubin AST ALT Alkaline Phosphatase Total Protein Albumin Globulin Albumin/Globulin Ratio Blood Type O POSITIVE Antibody Screen Negative Crossmatch See Detail BBK History Checked Patient has bt Assessment & Plan (1) Pulmonary infiltrate Status: Acute Priority: High Comment: Could 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 Would follow clinically and radiographically on the current drug regimen since he is clinically stable without SOB or hypoxia. - Date & Time Date: 04/11/18 Time: 17:29
--- NOTE | 2018-04-12 00:41 | CP.PCM.PN ---
Subjective - Date & Time of Evaluation Date of Evaluation: 04/12/18 Time of Evaluation: 00:36 - Subjective Subjective: urology. Pt was scheduled earlier today for cysto and fulgeration of urethral bleeding,however lab review shows a significant disarray of his pt/inr. His bleeding if probably due to lab abnormalities. . Will hold off any intervention till labs normalize Objective - Vital Signs/Intake and Output Vital Signs (last 24 hours): Temp Pulse Resp BP Pulse Ox 98 F 99 H 19 142/91 H 97 04/12/18 00:05 04/12/18 00:05 04/12/18 00:05 04/12/18 00:05 04/12/18 00:05 - Medications Medications: Current Medications Acetaminophen (Tylenol 325mg Tab) 650 mg PO Q6H PRN PRN Reason: Fever >100.4 F Albuterol Sulfate (Albuterol 0.042% Inhal Soco (1.25mg/3ml) Ud) 2.5 mg INH RQ6 PRN PRN Reason: Shortness of Breath Last Admin: 04/11/18 08:14 Dose: 2.5 mg Calcium Acetate (Phoslo) 1,334 mg PO WM [facility] Last Admin: 04/11/18 17:47 Dose: 1,334 mg Epoetin Charles (Procrit) 10,000 unit SC TTS [facility] Last Admin: 04/09/18 09:37 Dose: 10,000 unit Ergocalciferol (Drisdol 50,000 Intl Units Cap) 1 cap PO Q7D [facility] Last Admin: 04/10/18 08:59 Dose: 1 cap Famotidine (Pepcid) 20 mg PO DAILY [facility] Last Admin: 04/11/18 08:40 Dose: Not Given Finasteride (Proscar) 5 mg PO DAILY [facility] Last Admin: 04/11/18 17:48 Dose: 5 mg Fluticasone Propionate (Flonase) 1 spr [facility] DAILY PRN PRN Reason: Nasal congestion Azithromycin 500 mg/ Sodium (Chloride) 250 mls @ 250 mls/hr IVPB DAILY [facility] PRN Reason: Protocol Last Admin: 04/11/18 08:42 Dose: 250 mls/hr Ceftriaxone Sodium 1 gm/ (Sodium Chloride) 100 mls @ 100 mls/hr IVPB DAILY [facility] PRN Reason: Protocol Last Admin: 04/11/18 08:42 Dose: 100 mls/hr Piperacillin Sod/Tazobactam (Sod 2.25 gm/ Sodium Chloride) 100 mls @ 100 mls/ hr IVPB Q12 [facility] PRN Reason: Protocol Stop: 04/18/18 10:16 Last Admin: 04/11/18 20:49 Dose: 100 mls/hr Metoprolol Succinate (Toprol Xl) 25 mg PO DAILY [facility] Last Admin: 04/11/18 08:41 Dose: 25 mg Pantoprazole Sodium (Protonix Ec Tab) 40 mg PO DAILY [facility] Last Admin: 04/11/18 17:48 Dose: 40 mg Sodium Bicarbonate (Sodium Bicarbonate Tab) 1,300 mg PO TID [facility] Last Admin: 04/11/18 17:47 Dose: 1,300 mg Tamsulosin HCl (Flomax) 0.4 mg PO QPM [facility] Last Admin: 04/11/18 17:48 Dose: 0.4 mg Tobramycin/Dexamethasone (Tobradex 0.3%-0.1% Opht Oint) 1 appl OD Q8H [facility] Last Admin: 04/11/18 20:49 Dose: 1 applic Vitamin B Complex/Vit C/Folic Acid (Nephro-Jj) 1 tab PO DAILY [facility] Last Admin: 04/11/18 17:47 Dose: 1 tab - Labs Labs: 04/11/18 08:17 04/11/18 08:17 PT 16.9 Seconds (9.8-13.1) H 04/11/18 08:17 INR 1.5 04/11/18 08:17 APTT 43.9 Seconds (25.6-37.1) H 04/11/18 08:17
[2018-04-12] MEDS: Tobramycin/Dexamethasone OPHT OINT OD SCH ×3 (06:10→22:00)
[2018-04-12] MEDS: Pantoprazole 40 mg EC Tab PO SCH (08:35)
[2018-04-12] MEDS: Multivitamin Vitamin B Complex (Nephro-Vite) Tab PO SCH (08:36)
[2018-04-12] MEDS: EPOETIN ALFA 10,000 UNIT/ML ML SC SCH (10:03)
[2018-04-12] MEDS: Azithromycin 500 MG in Sodium Chloride 0.9% 250 ML IVPB SCH ×2 (10:04→12:44)
[2018-04-12] MEDS: Metoprolol Succinate 25 mg XL Tab PO SCH (10:04)
[2018-04-12 10:48] LABS: HEMOGLOBIN 9.3 g/dL (12.0-18.0); MEAN CELL VOLUME 84.2 fl (80.0-94.0); MEAN CORPUSCULAR HGB CONC 33.3 g/dL (33.0-37.0); RBC 3.31 Mil/uL (4.40-5.90); RED CELL DISTRIBUTION WIDTH 32.4 % (11.5-14.5); WHITE BLOOD COUNT 14.1 K/uL (4.8-10.8)
--- NOTE | 2018-04-12 11:56 | CP.PCM.PN ---
Subjective - Date & Time of Evaluation Date of Evaluation: 04/12/18 Time of Evaluation: 10:50 - Subjective Subjective: dialysis note he was seen on hemodialysis. Patient is being dialyze from subclavian catheter. I discussed the order with the dialysis nurse at the bedside Ultrafiltration approximately 1500 mL Patient awake and conscious Objective - Vital Signs/Intake and Output Vital Signs (last 24 hours): Temp Pulse Resp BP Pulse Ox 97.2 F L 97 H 20 153/93 H 97 04/12/18 08:31 04/12/18 08:31 04/12/18 08:31 04/12/18 08:31 04/12/18 08:31 Intake and Output: 04/12/18 04/12/18 06:59 18:59 Intake Total 150 Balance 150 - Medications Medications: Current Medications Acetaminophen (Tylenol 325mg Tab) 650 mg PO Q6H PRN PRN Reason: Fever >100.4 F Albuterol Sulfate (Albuterol 0.042% Inhal Soco (1.25mg/3ml) Ud) 2.5 mg INH RQ6 PRN PRN Reason: Shortness of Breath Last Admin: 04/11/18 08:14 Dose: 2.5 mg Calcium Acetate (Phoslo) 1,334 mg PO WM [facility] Last Admin: 04/12/18 08:37 Dose: 1,334 mg Epoetin Charles (Procrit) 10,000 unit SC TTS [facility] Last Admin: 04/12/18 10:03 Dose: 10,000 unit Ergocalciferol (Drisdol 50,000 Intl Units Cap) 1 cap PO Q7D [facility] Last Admin: 04/10/18 08:59 Dose: 1 cap Famotidine (Pepcid) 20 mg PO DAILY [facility] Last Admin: 04/12/18 08:36 Dose: 20 mg Finasteride (Proscar) 5 mg PO DAILY [facility] Last Admin: 04/12/18 08:36 Dose: 5 mg Fluticasone Propionate (Flonase) 1 spr [facility] DAILY PRN PRN Reason: Nasal congestion Azithromycin 500 mg/ Sodium (Chloride) 250 mls @ 250 mls/hr IVPB DAILY [facility] PRN Reason: Protocol Last Admin: 04/12/18 10:04 Dose: Not Given Ceftriaxone Sodium 1 gm/ (Sodium Chloride) 100 mls @ 100 mls/hr IVPB DAILY [facility] PRN Reason: Protocol Last Admin: 04/12/18 10:04 Dose: Not Given Piperacillin Sod/Tazobactam (Sod 2.25 gm/ Sodium Chloride) 100 mls @ 100 mls/ hr IVPB Q12 [facility] PRN Reason: Protocol Stop: 04/18/18 10:16 Last Admin: 04/12/18 10:04 Dose: Not Given Metoprolol Succinate (Toprol Xl) 25 mg PO DAILY [facility] Last Admin: 04/12/18 10:04 Dose: Not Given Pantoprazole Sodium (Protonix Ec Tab) 40 mg PO DAILY [facility] Last Admin: 04/12/18 08:35 Dose: 40 mg Sodium Bicarbonate (Sodium Bicarbonate Tab) 1,300 mg PO TID [facility] Last Admin: 04/12/18 08:36 Dose: 1,300 mg Tamsulosin HCl (Flomax) 0.4 mg PO QPM [facility] Last Admin: 04/11/18 17:48 Dose: 0.4 mg Tobramycin/Dexamethasone (Tobradex 0.3%-0.1% Opht Oint) 1 appl OD Q8H [facility] Last Admin: 04/12/18 06:10 Dose: 1 applic Vitamin B Complex/Vit C/Folic Acid (Nephro-Jj) 1 tab PO DAILY [facility] Last Admin: 04/12/18 08:36 Dose: 1 tab - Labs Labs: 04/12/18 09:30 04/11/18 08:17 PT 16.9 Seconds (9.8-13.1) H 04/11/18 08:17 INR 1.5 04/11/18 08:17 APTT 43.9 Seconds (25.6-37.1) H 04/11/18 08:17 - Constitutional Appears: No Acute Distress - Eye Exam Eye Exam: Conjunctival injection - ENT Exam ENT Exam: Mucous Membranes Moist - Respiratory Exam Respiratory Exam: Rhonchi, NORMAL BREATHING PATTERN - Cardiovascular Exam Cardiovascular Exam: absent: Gallop, JVD, Rubs - GI/Abdominal Exam GI & Abdominal Exam: Soft, Normal Bowel Sounds - Extremities Exam Extremities Exam: absent: Calf Tenderness - Back Exam Back Exam: absent: CVA tenderness (L), CVA tenderness (R) - Neurological Exam Neurological Exam: Alert - Psychiatric Exam Psychiatric exam: Normal Affect - Skin Skin Exam: absent: Cyanosis Assessment and Plan (1) Hyperkalemia Status: Resolved (2) Acute renal failure (ARF) Assessment & Plan: 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 And pleural effusion. Status post TURP anemia urinary tract infection patient is receiving Zosyn acute renal failure worsening in december becoming chronic kidney disease.? plan hemodialysis in progress for the first time today Patient tolerating dialysis with ultrafiltration 1500 mL Waiting for fibrinogen level to decide about further plasma phoresis The rest of the treatment as I mentioned in my previous progress note Status: Acute
[2018-04-12 13:13] LABS: INR 1.3; PROTHROMBIN TIME 14.7 Seconds (9.8-13.1)
[2018-04-12] MEDS ORDERED: Albumin Human 5% (12.5 gm/250 ml) IV ONE (15:15)
--- NOTE | 2018-04-12 21:08 | CP.PCM.PN ---
Subjective - Date & Time of Evaluation Date of Evaluation: 04/11/18 Time of Evaluation: 20:00 - Subjective Subjective: Slightly lethargic plasmapheresis held due to low fibrinogen Objective - Vital Signs/Intake and Output Vital Signs (last 24 hours): Temp Pulse Resp BP Pulse Ox 97.4 F L 115 H 19 136/84 98 04/12/18 20:09 04/12/18 20:09 04/12/18 20:09 04/12/18 20:09 04/12/18 20:09 Intake and Output: 04/12/18 04/13/18 18:59 06:59 Intake Total 150 Balance 150 - Medications Medications: Current Medications Acetaminophen (Tylenol 325mg Tab) 650 mg PO Q6H PRN PRN Reason: Fever >100.4 F Albuterol Sulfate (Albuterol 0.042% Inhal Soco (1.25mg/3ml) Ud) 2.5 mg INH RQ6 PRN PRN Reason: Shortness of Breath Last Admin: 04/11/18 08:14 Dose: 2.5 mg Calcium Acetate (Phoslo) 1,334 mg PO WM [facility] Last Admin: 04/12/18 17:30 Dose: 1,334 mg Epoetin Charles (Procrit) 10,000 unit SC TTS [facility] Last Admin: 04/12/18 10:03 Dose: 10,000 unit Ergocalciferol (Drisdol 50,000 Intl Units Cap) 1 cap PO Q7D [facility] Last Admin: 04/10/18 08:59 Dose: 1 cap Famotidine (Pepcid) 20 mg PO DAILY [facility] Last Admin: 04/12/18 08:36 Dose: 20 mg Finasteride (Proscar) 5 mg PO DAILY [facility] Last Admin: 04/12/18 08:36 Dose: 5 mg Fluticasone Propionate (Flonase) 1 spr [facility] DAILY PRN PRN Reason: Nasal congestion Azithromycin 500 mg/ Sodium (Chloride) 250 mls @ 250 mls/hr IVPB DAILY [facility] PRN Reason: Protocol Last Admin: 04/12/18 12:44 Dose: 250 mls/hr Ceftriaxone Sodium 1 gm/ (Sodium Chloride) 100 mls @ 100 mls/hr IVPB DAILY [facility] PRN Reason: Protocol Last Admin: 04/12/18 12:46 Dose: 100 mls/hr Piperacillin Sod/Tazobactam (Sod 2.25 gm/ Sodium Chloride) 100 mls @ 100 mls/ hr IVPB Q12 [facility] PRN Reason: Protocol Stop: 04/18/18 10:16 Last Admin: 04/12/18 21:06 Dose: 100 mls/hr Metoprolol Succinate (Toprol Xl) 25 mg PO DAILY [facility] Last Admin: 04/12/18 10:04 Dose: Not Given Pantoprazole Sodium (Protonix Ec Tab) 40 mg PO DAILY [facility] Last Admin: 04/12/18 08:35 Dose: 40 mg Sodium Bicarbonate (Sodium Bicarbonate Tab) 1,300 mg PO TID [facility] Last Admin: 04/12/18 17:27 Dose: 1,300 mg Tamsulosin HCl (Flomax) 0.4 mg PO QPM [facility] Last Admin: 04/12/18 17:26 Dose: 0.4 mg Tobramycin/Dexamethasone (Tobradex 0.3%-0.1% Opht Oint) 1 appl OD Q8H [facility] Last Admin: 04/12/18 12:47 Dose: Not Given Vitamin B Complex/Vit C/Folic Acid (Nephro-Jj) 1 tab PO DAILY [facility] Last Admin: 04/12/18 08:36 Dose: 1 tab - Labs Labs: 04/12/18 09:30 04/11/18 08:17 PT 14.7 Seconds (9.8-13.1) H 04/12/18 12:41 INR 1.3 04/12/18 12:41 APTT 43.9 Seconds (25.6-37.1) H 04/11/18 08:17 - Head Exam Head Exam: ATRAUMATIC - Eye Exam Eye Exam: Normal appearance - ENT Exam ENT Exam: Mucous Membranes Dry - Respiratory Exam Respiratory Exam: NORMAL BREATHING PATTERN - Cardiovascular Exam Cardiovascular Exam: +S1, +S2 - GI/Abdominal Exam GI & Abdominal Exam: Normal Bowel Sounds - Extremities Exam Extremities Exam: Pedal Edema Assessment and Plan (1) Anemia Assessment & Plan: iron deficiency s/p IV iron anemia of CKD on Procrit per renal transfusion support PRN Status: Acute
--- NOTE | 2018-04-12 21:16 | CP.PCM.PN ---
Subjective - Date & Time of Evaluation Date of Evaluation: 04/12/18 Time of Evaluation: 10:00 - Subjective Subjective: Seen on dialysis awaiting fibrinogen level; okay to resume plasmapheresis if fibrinogen > 100. Objective - Vital Signs/Intake and Output Vital Signs (last 24 hours): Temp Pulse Resp BP Pulse Ox 97.4 F L 115 H 19 136/84 98 04/12/18 20:09 04/12/18 20:09 04/12/18 20:09 04/12/18 20:09 04/12/18 20:09 Intake and Output: 04/12/18 04/13/18 18:59 06:59 Intake Total 150 Balance 150 - Medications Medications: Current Medications Acetaminophen (Tylenol 325mg Tab) 650 mg PO Q6H PRN PRN Reason: Fever >100.4 F Albuterol Sulfate (Albuterol 0.042% Inhal Soco (1.25mg/3ml) Ud) 2.5 mg INH RQ6 PRN PRN Reason: Shortness of Breath Last Admin: 04/11/18 08:14 Dose: 2.5 mg Calcium Acetate (Phoslo) 1,[address] [facility] Last Admin: 04/12/18 17:30 Dose: 1,334 mg Epoetin Charles (Procrit) 10,[address] [facility] Last Admin: 04/12/18 10:03 Dose: 10,000 unit Ergocalciferol (Drisdol 50,000 Intl Units Cap) [address] [facility] Last Admin: 04/10/18 08:59 Dose: 1 cap Famotidine (Pepcid) [address] [facility] Last Admin: 04/12/18 08:36 Dose: 20 mg Finasteride (Proscar) [address] [facility] Last Admin: 04/12/18 08:36 Dose: 5 mg Fluticasone Propionate (Flonase) 1 spr [facility] DAILY PRN PRN Reason: Nasal congestion Azithromycin 500 mg/ Sodium (Chloride) 250 mls @ 250 mls/hr IVPB DAILY [facility] PRN Reason: Protocol Last Admin: 04/12/18 12:44 Dose: 250 mls/hr Ceftriaxone Sodium 1 gm/ (Sodium Chloride) 100 mls @ 100 mls/hr IVPB DAILY [facility] PRN Reason: Protocol Last Admin: 04/12/18 12:46 Dose: 100 mls/hr Piperacillin Sod/Tazobactam (Sod 2.25 gm/ Sodium Chloride) 100 mls @ 100 mls/ hr IVPB Q12 [facility] PRN Reason: Protocol Stop: 04/18/18 10:16 Last Admin: 04/12/18 21:06 Dose: 100 mls/hr Metoprolol Succinate (Toprol Xl) [address] [facility] Last Admin: 04/12/18 10:04 Dose: Not Given Pantoprazole Sodium (Protonix Ec Tab) [address] [facility] Last Admin: 04/12/18 08:35 Dose: 40 mg Sodium Bicarbonate (Sodium Bicarbonate Tab) 1,[address] [facility] Last Admin: 04/12/18 17:27 Dose: 1,300 mg Tamsulosin HCl (Flomax) 0.[address] [facility] Last Admin: 04/12/18 17:26 Dose: 0.4 mg Tobramycin/Dexamethasone (Tobradex 0.3%-0.1% Opht Oint) [address] [facility] Last Admin: 04/12/18 12:47 Dose: Not Given Vitamin B Complex/Vit C/Folic Acid (Nephro-Jj) [address] [facility] Last Admin: 04/12/18 08:36 Dose: 1 tab - Labs Labs: 04/12/18 09:30 04/11/18 08:17 PT 14.7 Seconds (9.8-13.1) H 04/12/18 12:41 INR 1.3 04/12/18 12:41 APTT 43.9 Seconds (25.6-37.1) H 04/11/18 08:17 - Head Exam Head Exam: ATRAUMATIC - Eye Exam Eye Exam: Normal appearance - ENT Exam ENT Exam: Mucous Membranes Dry - Respiratory Exam Respiratory Exam: NORMAL BREATHING PATTERN - Cardiovascular Exam Cardiovascular Exam: +S1, +S2 - GI/Abdominal Exam GI & Abdominal Exam: Normal Bowel Sounds - Extremities Exam Extremities Exam: Pedal Edema Assessment and Plan (1) Anemia Assessment & Plan: iron deficiency s/p IV iron anemia of CKD on Procrit per renal transfusion support PRN Status: Acute
[2018-04-13] MEDS: Tobramycin/Dexamethasone OPHT OINT OD SCH ×3 (05:44→20:59)
--- NOTE | 2018-04-13 07:14 | CP.PCM.PN ---
Subjective - Date & Time of Evaluation Date of Evaluation: 04/11/18 Time of Evaluation: 11:00 - Subjective Subjective: patient continues to be stable Still with groos hematuria. Objective - Vital Signs/Intake and Output Vital Signs (last 24 hours): Temp Pulse Resp BP Pulse Ox 97.9 F 110 H 18 144/83 98 04/13/18 04:56 04/13/18 04:56 04/13/18 04:56 04/13/18 04:56 04/13/18 04:56 - Medications Medications: Current Medications Acetaminophen (Tylenol 325mg Tab) 650 mg PO Q6H PRN PRN Reason: Fever >100.4 F Acetaminophen (Tylenol 325mg Tab) 650 mg PO Q6 PRN PRN Reason: Pain, moderate (4-7) Last Admin: 04/12/18 21:35 Dose: 650 mg Albuterol Sulfate (Albuterol 0.042% Inhal Soco (1.25mg/3ml) Ud) 2.5 mg INH RQ6 PRN PRN Reason: Shortness of Breath Last Admin: 04/11/18 08:14 Dose: 2.5 mg Calcium Acetate (Phoslo) 1,334 mg PO WM [facility] Last Admin: 04/12/18 17:30 Dose: 1,334 mg Epoetin Charles (Procrit) 10,000 unit SC TTS [facility] Last Admin: 04/12/18 10:03 Dose: 10,000 unit Ergocalciferol (Drisdol 50,000 Intl Units Cap) 1 cap PO Q7D [facility] Last Admin: 04/10/18 08:59 Dose: 1 cap Famotidine (Pepcid) 20 mg PO DAILY [facility] Last Admin: 04/12/18 08:36 Dose: 20 mg Finasteride (Proscar) 5 mg PO DAILY [facility] Last Admin: 04/12/18 08:36 Dose: 5 mg Fluticasone Propionate (Flonase) 1 spr [facility] DAILY PRN PRN Reason: Nasal congestion Azithromycin 500 mg/ Sodium (Chloride) 250 mls @ 250 mls/hr IVPB DAILY [facility] PRN Reason: Protocol Last Admin: 04/12/18 12:44 Dose: 250 mls/hr Ceftriaxone Sodium 1 gm/ (Sodium Chloride) 100 mls @ 100 mls/hr IVPB DAILY [facility] PRN Reason: Protocol Last Admin: 04/12/18 12:46 Dose: 100 mls/hr Piperacillin Sod/Tazobactam (Sod 2.25 gm/ Sodium Chloride) 100 mls @ 100 mls/ hr IVPB Q12 [facility] PRN Reason: Protocol Stop: 04/18/18 10:16 Last Admin: 04/12/18 21:06 Dose: 100 mls/hr Metoprolol Succinate (Toprol Xl) 25 mg PO DAILY [facility] Last Admin: 04/12/18 10:04 Dose: Not Given Pantoprazole Sodium (Protonix Ec Tab) 40 mg PO DAILY [facility] Last Admin: 04/12/18 08:35 Dose: 40 mg Sodium Bicarbonate (Sodium Bicarbonate Tab) 1,300 mg PO TID [facility] Last Admin: 04/12/18 17:27 Dose: 1,300 mg Tamsulosin HCl (Flomax) 0.4 mg PO QPM [facility] Last Admin: 04/12/18 17:26 Dose: 0.4 mg Tobramycin/Dexamethasone (Tobradex 0.3%-0.1% Opht Oint) 1 appl OD Q8H [facility] Last Admin: 04/13/18 05:44 Dose: 1 applic Vitamin B Complex/Vit C/Folic Acid (Nephro-Jj) 1 tab PO DAILY [facility] Last Admin: 04/12/18 08:36 Dose: 1 tab - Labs Labs: 04/12/18 09:30 04/11/18 08:17 PT 14.7 Seconds (9.8-13.1) H 04/12/18 12:41 INR 1.3 04/12/18 12:41 APTT 43.9 Seconds (25.6-37.1) H 04/11/18 08:17 - Head Exam Head Exam: NORMAL INSPECTION - Eye Exam Eye Exam: Normal appearance - Respiratory Exam Respiratory Exam: Clear to Ausculation Bilateral - Cardiovascular Exam Cardiovascular Exam: REGULAR RHYTHM - GI/Abdominal Exam GI & Abdominal Exam: Normal Bowel Sounds - Neurological Exam Neurological Exam: Altered, Awake Assessment and Plan (1) Pneumonia Status: Acute (2) Pulmonary nodules/lesions, multiple Status: Acute (3) Anemia Status: Acute (4) Renal failure Status: Acute (5) Severe anemia Status: Acute (6) UTI (urinary tract infection) Status: Acute - Assessment and Plan (Free Text) Plan: Cont meds For HD Cont hydration IV antibiotics
--- NOTE | 2018-04-13 07:16 | CP.PCM.PN ---
Subjective - Date & Time of Evaluation Date of Evaluation: 04/12/18 Time of Evaluation: 10:40 - Subjective Subjective: patient is currently on HD Has no chest pain or SOB Remains to have poor insight and cognitive function. Has no fever Noted elevated WBC On Rocephin and zithromax for both UTI and Pneumonia Objective - Vital Signs/Intake and Output Vital Signs (last 24 hours): Temp Pulse Resp BP Pulse Ox 97.9 F 110 H 18 144/83 98 04/13/18 04:56 04/13/18 04:56 04/13/18 04:56 04/13/18 04:56 04/13/18 04:56 - Medications Medications: Current Medications Acetaminophen (Tylenol 325mg Tab) 650 mg PO Q6H PRN PRN Reason: Fever >100.4 F Acetaminophen (Tylenol 325mg Tab) 650 mg PO Q6 PRN PRN Reason: Pain, moderate (4-7) Last Admin: 04/12/18 21:35 Dose: 650 mg Albuterol Sulfate (Albuterol 0.042% Inhal Soco (1.25mg/3ml) Ud) 2.5 mg INH RQ6 PRN PRN Reason: Shortness of Breath Last Admin: 04/11/18 08:14 Dose: 2.5 mg Calcium Acetate (Phoslo) 1,334 mg PO WM [facility] Last Admin: 04/12/18 17:30 Dose: 1,334 mg Epoetin Charles (Procrit) 10,000 unit SC TTS [facility] Last Admin: 04/12/18 10:03 Dose: 10,000 unit Ergocalciferol (Drisdol 50,000 Intl Units Cap) 1 cap PO Q7D [facility] Last Admin: 04/10/18 08:59 Dose: 1 cap Famotidine (Pepcid) 20 mg PO DAILY [facility] Last Admin: 04/12/18 08:36 Dose: 20 mg Finasteride (Proscar) 5 mg PO DAILY [facility] Last Admin: 04/12/18 08:36 Dose: 5 mg Fluticasone Propionate (Flonase) 1 spr [facility] DAILY PRN PRN Reason: Nasal congestion Azithromycin 500 mg/ Sodium (Chloride) 250 mls @ 250 mls/hr IVPB DAILY [facility] PRN Reason: Protocol Last Admin: 04/12/18 12:44 Dose: 250 mls/hr Ceftriaxone Sodium 1 gm/ (Sodium Chloride) 100 mls @ 100 mls/hr IVPB DAILY [facility] PRN Reason: Protocol Last Admin: 04/12/18 12:46 Dose: 100 mls/hr Piperacillin Sod/Tazobactam (Sod 2.25 gm/ Sodium Chloride) 100 mls @ 100 mls/ hr IVPB Q12 [facility] PRN Reason: Protocol Stop: 04/18/18 10:16 Last Admin: 04/12/18 21:06 Dose: 100 mls/hr Metoprolol Succinate (Toprol Xl) 25 mg PO DAILY [facility] Last Admin: 04/12/18 10:04 Dose: Not Given Pantoprazole Sodium (Protonix Ec Tab) 40 mg PO DAILY [facility] Last Admin: 04/12/18 08:35 Dose: 40 mg Sodium Bicarbonate (Sodium Bicarbonate Tab) 1,300 mg PO TID [facility] Last Admin: 04/12/18 17:27 Dose: 1,300 mg Tamsulosin HCl (Flomax) 0.4 mg PO QPM [facility] Last Admin: 04/12/18 17:26 Dose: 0.4 mg Tobramycin/Dexamethasone (Tobradex 0.3%-0.1% Opht Oint) 1 appl OD Q8H [facility] Last Admin: 04/13/18 05:44 Dose: 1 applic Vitamin B Complex/Vit C/Folic Acid (Nephro-Jj) 1 tab PO DAILY [facility] Last Admin: 04/12/18 08:36 Dose: 1 tab - Labs Labs: 04/12/18 09:30 04/11/18 08:17 PT 14.7 Seconds (9.8-13.1) H 04/12/18 12:41 INR 1.3 04/12/18 12:41 APTT 43.9 Seconds (25.6-37.1) H 04/11/18 08:17 - Constitutional Appears: Confused - Head Exam Head Exam: NORMAL INSPECTION - Respiratory Exam Respiratory Exam: Clear to Ausculation Bilateral - Cardiovascular Exam Cardiovascular Exam: REGULAR RHYTHM - GI/Abdominal Exam GI & Abdominal Exam: Normal Bowel Sounds - Neurological Exam Neurological Exam: Altered, Awake Assessment and Plan (1) Pneumonia Status: Acute (2) Pulmonary nodules/lesions, multiple Status: Acute (3) Anemia Status: Acute (4) Renal failure Status: Acute (5) Severe anemia Status: Acute (6) UTI (urinary tract infection) Status: Acute - Assessment and Plan (Free Text) Plan: Cont meds Cont tx Cont HD Cont iv antibiotics follow up C and S
--- NOTE | 2018-04-13 09:48 | CP.PCM.PN ---
Subjective - Date & Time of Evaluation Date of Evaluation: 04/13/18 Time of Evaluation: 09:46 - Subjective Subjective: Dialysis note Patient and bed awake and conscious not in acute distress Vital signs stable Patient seen on hemodialysis through subclavian catheter Objective - Vital Signs/Intake and Output Vital Signs (last 24 hours): Temp Pulse Resp BP Pulse Ox 98.2 F 111 H 18 157/90 H 99 04/13/18 08:00 04/13/18 08:00 04/13/18 08:00 04/13/18 08:00 04/13/18 08:00 - Medications Medications: Current Medications Acetaminophen (Tylenol 325mg Tab) 650 mg PO Q6H PRN PRN Reason: Fever >100.4 F Acetaminophen (Tylenol 325mg Tab) 650 mg PO Q6 PRN PRN Reason: Pain, moderate (4-7) Last Admin: 04/12/18 21:35 Dose: 650 mg Albuterol Sulfate (Albuterol 0.042% Inhal Soco (1.25mg/3ml) Ud) 2.5 mg INH RQ6 PRN PRN Reason: Shortness of Breath Last Admin: 04/11/18 08:14 Dose: 2.5 mg Calcium Acetate (Phoslo) 1,334 mg PO WM [facility] Last Admin: 04/12/18 17:30 Dose: 1,334 mg Epoetin Charles (Procrit) 10,000 unit SC TTS [facility] Last Admin: 04/12/18 10:03 Dose: 10,000 unit Ergocalciferol (Drisdol 50,000 Intl Units Cap) 1 cap PO Q7D [facility] Last Admin: 04/10/18 08:59 Dose: 1 cap Famotidine (Pepcid) 20 mg PO DAILY [facility] Last Admin: 04/12/18 08:36 Dose: 20 mg Finasteride (Proscar) 5 mg PO DAILY [facility] Last Admin: 04/12/18 08:36 Dose: 5 mg Fluticasone Propionate (Flonase) 1 spr [facility] DAILY PRN PRN Reason: Nasal congestion Azithromycin 500 mg/ Sodium (Chloride) 250 mls @ 250 mls/hr IVPB DAILY [facility] PRN Reason: Protocol Last Admin: 04/12/18 12:44 Dose: 250 mls/hr Ceftriaxone Sodium 1 gm/ (Sodium Chloride) 100 mls @ 100 mls/hr IVPB DAILY [facility] PRN Reason: Protocol Last Admin: 04/12/18 12:46 Dose: 100 mls/hr Piperacillin Sod/Tazobactam (Sod 2.25 gm/ Sodium Chloride) 100 mls @ 100 mls/ hr IVPB Q12 [facility] PRN Reason: Protocol Stop: 04/18/18 10:16 Last Admin: 04/12/18 21:06 Dose: 100 mls/hr Metoprolol Succinate (Toprol Xl) 25 mg PO DAILY [facility] Last Admin: 04/12/18 10:04 Dose: Not Given Pantoprazole Sodium (Protonix Ec Tab) 40 mg PO DAILY [facility] Last Admin: 04/12/18 08:35 Dose: 40 mg Sodium Bicarbonate (Sodium Bicarbonate Tab) 1,300 mg PO TID [facility] Last Admin: 04/12/18 17:27 Dose: 1,300 mg Tamsulosin HCl (Flomax) 0.4 mg PO QPM [facility] Last Admin: 04/12/18 17:26 Dose: 0.4 mg Tobramycin/Dexamethasone (Tobradex 0.3%-0.1% Opht Oint) 1 appl OD Q8H [facility] Last Admin: 04/13/18 05:44 Dose: 1 applic Vitamin B Complex/Vit C/Folic Acid (Nephro-Jj) 1 tab PO DAILY [facility] Last Admin: 04/12/18 08:36 Dose: 1 tab - Labs Labs: 04/12/18 09:30 04/11/18 08:17 PT 14.7 Seconds (9.8-13.1) H 04/12/18 12:41 INR 1.3 04/12/18 12:41 APTT 43.9 Seconds (25.6-37.1) H 04/11/18 08:17 - Constitutional Appears: No Acute Distress - ENT Exam ENT Exam: Mucous Membranes Moist - Neck Exam Neck Exam: absent: Lymphadenopathy - Respiratory Exam Respiratory Exam: NORMAL BREATHING PATTERN. absent: Chest Wall Tenderness - Cardiovascular Exam Cardiovascular Exam: REGULAR RHYTHM. 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 And pleural effusion. Status post TURP anemia urinary tract infection patient is receiving Zosyn pneumonia gross hematuria this morning patient is going for cystoscopy the plan Patient received 3 time plasma phoresis including yesterday when the fibrinogen level came up Patient receiving second hemodialysis today and tolerating well. Ultrafiltration 1500 mL. Dialysis order discussed with the dialysis nurse at the bedside Patient already receive 3 days pulses steroid Patient already received 1 dose of rituximab 1 g And the patient has not been responsive to treatment so far We will plan for permacath for chronic dialysis most likely Status: Acute
[2018-04-13] MEDS: Multivitamin Vitamin B Complex (Nephro-Vite) Tab PO SCH (10:33)
[2018-04-13] MEDS: Pantoprazole 40 mg EC Tab PO SCH (10:35)
[2018-04-13] MEDS: Azithromycin 500 MG in Sodium Chloride 0.9% 250 ML IVPB SCH (10:39)
[2018-04-13 11:56] LABS: FDP INTERPRETATION POSITIVE (NEGATIVE); FDP QUANTITY >40 ug/mL (<10)
[2018-04-13] MEDS: Metoprolol Succinate 25 mg XL Tab PO SCH (16:23)
[2018-04-13] MEDS ORDERED: DIGOXIN IMMUNE FAB 40 MG IV ONE (19:48)
[2018-04-13] MEDS ORDERED: Digoxin 500 mcg/2ml (0.5 mg/2ml) Inj IVP ONE (21:30)
[2018-04-13 21:34] LABS: CALCIUM 7.9 mg/dL (8.4-10.2)
[2018-04-13 21:44] VITALS: PULSE 123
--- NOTE | 2018-04-13 21:44 | CP.PCM.PN ---
Subjective - Date & Time of Evaluation Date of Evaluation: 04/13/18 Time of Evaluation: 21:44 Objective - Vital Signs/Intake and Output Vital Signs (last 24 hours): Temp Pulse Resp BP Pulse Ox 97.9 F 96 H 20 132/87 93 L 04/13/18 20:18 04/13/18 20:18 04/13/18 20:18 04/13/18 20:18 04/13/18 20:18 Intake and Output: 04/13/18 04/14/18 18:59 06:59 Intake Total 570 Balance 570 - Medications Medications: Current Medications Acetaminophen (Tylenol 325mg Tab) 650 mg PO Q6H PRN PRN Reason: Fever >100.4 F Acetaminophen (Tylenol 325mg Tab) 650 mg PO Q6 PRN PRN Reason: Pain, moderate (4-7) Last Admin: 04/12/18 21:35 Dose: 650 mg Albuterol Sulfate (Albuterol 0.042% Inhal Soco (1.25mg/3ml) Ud) 2.5 mg INH RQ6 PRN PRN Reason: Shortness of Breath Last Admin: 04/11/18 08:14 Dose: 2.5 mg Calcium Acetate (Phoslo) 1,334 mg PO WM [facility] Last Admin: 04/13/18 18:54 Dose: 1,334 mg Epoetin Charles (Procrit) 10,000 unit SC TTS [facility] Last Admin: 04/12/18 10:03 Dose: 10,000 unit Ergocalciferol (Drisdol 50,000 Intl Units Cap) 1 cap PO Q7D [facility] Last Admin: 04/10/18 08:59 Dose: 1 cap Famotidine (Pepcid) 20 mg PO DAILY [facility] Last Admin: 04/13/18 10:33 Dose: 20 mg Finasteride (Proscar) 5 mg PO DAILY [facility] Last Admin: 04/13/18 10:34 Dose: 5 mg Fluticasone Propionate (Flonase) 1 spr [facility] DAILY PRN PRN Reason: Nasal congestion Ceftriaxone Sodium 1 gm/ (Sodium Chloride) 100 mls @ 100 mls/hr IVPB DAILY [facility] PRN Reason: Protocol Last Admin: 04/13/18 10:37 Dose: 100 mls/hr Piperacillin Sod/Tazobactam (Sod 2.25 gm/ Sodium Chloride) 100 mls @ 100 mls/ hr IVPB Q12 [facility] PRN Reason: Protocol Stop: 04/18/18 10:16 Last Admin: 04/13/18 20:59 Dose: 100 mls/hr Metoprolol Succinate (Toprol Xl) 25 mg PO DAILY [facility] Last Admin: 04/13/18 16:23 Dose: 25 mg Pantoprazole Sodium (Protonix Ec Tab) 40 mg PO DAILY [facility] Last Admin: 04/13/18 10:35 Dose: 40 mg Sodium Bicarbonate (Sodium Bicarbonate Tab) 1,300 mg PO TID [facility] Last Admin: 04/13/18 16:25 Dose: 1,300 mg Tamsulosin HCl (Flomax) 0.4 mg PO QPM [facility] Last Admin: 04/13/18 18:54 Dose: 0.4 mg Tobramycin/Dexamethasone (Tobradex 0.3%-0.1% Opht Oint) 1 appl OD Q8H [facility] Last Admin: 04/13/18 20:59 Dose: 1 applic Vitamin B Complex/Vit C/Folic Acid (Nephro-Jj) 1 tab PO DAILY [facility] Last Admin: 04/13/18 10:33 Dose: 1 tab - Labs Labs: 04/12/18 09:30 04/13/18 20:35 PT 14.7 Seconds (9.8-13.1) H 04/12/18 12:41 INR 1.3 04/12/18 12:41 APTT 43.9 Seconds (25.6-37.1) H 04/11/18 08:17
--- NOTE | 2018-04-13 22:02 | CP.PCM.CON ---
History of Present Illness - History of Present Illness History of Present Illness: Attending: Dr Calderon Reason for Consult: Evaluation for ICU Chief Complaint: Tachycardic HPI: Mr Dang 77 years male was admitted on 03/21/18 with dx of Anemia, New unset A Fib and Respiratory failure. He is been followed by hematology and received blood transfusion and intravenous Iron; he is receiving Hemodialysis . He has been receiving Metoprolol Succinate for rate control of his Atrial Fibrillation. i am called to evaluate him because his Heart Rate has been elevated today > 130/min. PMH: HTN; BPH PSH: Appendectomy SH: Former smoker; No Illegal drug use; No Alcohol; Live alone FH: No family hx Review of Systems: Awake and alert, No headache, dizziness, No problems with vision, mild SOB, no chest pain, no palpitation nor abdominal pain. Pains at the right lower extremity. no urinary symptoms. EXAM: Vital Sign:T97.9F; HR 123/min; BP 132/87mmHg; SpO2 93% on RA The patient is in bed awake alert, in no respiratory distress, no O2 on at present Resp: Expiratory ronchi with no audible rales but decreased breath sounds at the right base CVS: S1 S2 irregular and Tachycardic, no S3 S4 Abdomen: Full, Soft, nontender, +ve bowel sounds Ext: Bilateral leg edema Neuro: Non focal A&P: #. A Fib with rapid response. Continue Telemetry monitoring. The patient received Metoprolol Succitate in the Am and is due for Digoxin one dose ordered by the Oil Spreader Operator. #. Acute Kidney failure - Dr Bernabe print production coordinator is on consult - The patient was dialysed today and is being followed by nephrology #. Anemia treated with PRBC transfusions and now Iron Infusion - Dr Armas Tie Man on consult Conclusion: This patient is stable alert and oriented, no significant SOB, no chest pain with normal blood pressure, having a stable A Fib with RVR which is being treated. This patient could receive even other medication on the Telemetry Unit as needed for Rapid A Fib, Therefore there is no immediate need to transfer to ICU. The Patient was placed on Nasal cannula 3L/min to increase SpO2 above 94% Franco Hoskins MD Past Patient History - Infectious Disease Hx of Infectious Diseases: None - Past Medical History & Family History Past Medical History?: Yes Past Family History: Reviewed and not pertinent - Past Social History Smoking Status: Former Smoker Alcohol: None Drugs: Denies - CARDIAC Hx Hypertension: No - PULMONARY Hx Respiratory Disorders: No - NEUROLOGICAL Hx Neurological Disorder: No - HEENT Hx HEENT Problems: Yes - RENAL Hx Chronic Kidney Disease: No - ENDOCRINE/METABOLIC Hx Endocrine Disorders: No - HEMATOLOGICAL/ONCOLOGICAL Hx Blood Disorders: Yes - INTEGUMENTARY Hx Dermatological Problems: No - MUSCULOSKELETAL/RHEUMATOLOGICAL Hx Musculoskeletal Disorders: Yes - GASTROINTESTINAL Hx Gastrointestinal Disorders: No - GENITOURINARY/GYNECOLOGICAL Hx Genitourinary Disorders: Yes (RETENTION BUTLER TO SGD) - PSYCHIATRIC Hx Psychophysiologic Disorder: No - SURGICAL HISTORY Hx Appendectomy: Yes - ANESTHESIA Hx Anesthesia: Yes Hx Anesthesia Reactions: No Hx Malignant Hyperthermia: No Meds Allergies/Adverse Reactions: Allergies Allergy/AdvReac Type Severity Reaction Status Date / Time No Known Allergies Allergy Verified 01/02/14 08:07 - Medications Medications: Current Medications Acetaminophen (Tylenol 325mg Tab) 650 mg PO Q6H PRN PRN Reason: Fever >100.4 F Acetaminophen (Tylenol 325mg Tab) 650 mg PO Q6 PRN PRN Reason: Pain, moderate (4-7) Last Admin: 04/12/18 21:35 Dose: 650 mg Albuterol Sulfate (Albuterol 0.042% Inhal Soco (1.25mg/3ml) Ud) 2.5 mg INH RQ6 PRN PRN Reason: Shortness of Breath Last Admin: 04/11/18 08:14 Dose: 2.5 mg Calcium Acetate (Phoslo) 1,334 mg PO WM [facility] Last Admin: 04/13/18 18:54 Dose: 1,334 mg Epoetin Charles (Procrit) 10,000 unit SC TTS [facility] Last Admin: 04/12/18 10:03 Dose: 10,000 unit Ergocalciferol (Drisdol 50,000 Intl Units Cap) 1 cap PO Q7D [facility] Last Admin: 04/10/18 08:59 Dose: 1 cap Famotidine (Pepcid) 20 mg PO DAILY [facility] Last Admin: 04/13/18 10:33 Dose: 20 mg Finasteride (Proscar) 5 mg PO DAILY [facility] Last Admin: 04/13/18 10:34 Dose: 5 mg Fluticasone Propionate (Flonase) 1 spr [facility] DAILY PRN PRN Reason: Nasal congestion Ceftriaxone Sodium 1 gm/ (Sodium Chloride) 100 mls @ 100 mls/hr IVPB DAILY [facility] PRN Reason: Protocol Last Admin: 04/13/18 10:37 Dose: 100 mls/hr Piperacillin Sod/Tazobactam (Sod 2.25 gm/ Sodium Chloride) 100 mls @ 100 mls/ hr IVPB Q12 [facility] PRN Reason: Protocol Stop: 04/18/18 10:16 Last Admin: 04/13/18 20:59 Dose: 100 mls/hr Metoprolol Succinate (Toprol Xl) 25 mg PO DAILY [facility] Last Admin: 04/13/18 16:23 Dose: 25 mg Pantoprazole Sodium (Protonix Ec Tab) 40 mg PO DAILY [facility] Last Admin: 04/13/18 10:35 Dose: 40 mg Sodium Bicarbonate (Sodium Bicarbonate Tab) 1,300 mg PO TID [facility] Last Admin: 04/13/18 16:25 Dose: 1,300 mg Tamsulosin HCl (Flomax) 0.4 mg PO QPM [facility] Last Admin: 04/13/18 18:54 Dose: 0.4 mg Tobramycin/Dexamethasone (Tobradex 0.3%-0.1% Opht Oint) 1 appl OD Q8H [facility] Last Admin: 04/13/18 20:59 Dose: 1 applic Vitamin B Complex/Vit C/Folic Acid (Nephro-Jj) 1 tab PO DAILY [facility] Last Admin: 04/13/18 10:33 Dose: 1 tab Results - Vital Signs Recent Vital Signs: Last Vital Signs Temp 97.9 F 04/13/18 20:18 Pulse 96 H 04/13/18 20:18 Resp 20 04/13/18 20:18 BP 132/87 04/13/18 20:18 Pulse Ox 93 L 04/13/18 20:18 - Labs Result Diagrams: 04/12/18 09:30 04/13/18 20:35 Labs: Laboratory Results - last 24 hr 04/13/18 04/13/18 04/13/18 10:36 19:56 20:35 Fibrin Degrad Products Positive H Fibrin Degrad Prod, Qt >40 H Sodium 138 Potassium 3.7 Chloride 107 Carbon Dioxide 23 Anion Gap 12 BUN 41 H Creatinine 4.0 H Est GFR ( Amer) 18 Est GFR (Non-Af Amer) 15 Random Glucose 115 H Calcium 7.9 L Phosphorus 5.3 H Magnesium 1.9 Assessment & Plan - Date & Time Date: 04/13/18 Time: 22:02
--- NOTE | 2018-04-13 22:49 | CP.PCM.PN ---
Subjective - Date & Time of Evaluation Date of Evaluation: 04/13/18 Time of Evaluation: 19:45 - Subjective Subjective: Seen and examined at the bed. Worsening Dyspnea and Leg swelling. Tachycardia with irregular Pulse on the Telemonitor. S/P Steroid Pulse, a dose of Rituximab and Plamapherseis. Despite RX for RPGN, the Patient progressed to Acute Renal Failure, and started on HD with Right chest Permacath. Denies fever or chills. Objective - Vital Signs/Intake and Output Vital Signs (last 24 hours): Temp Pulse Resp BP Pulse Ox 97.9 F 96 H 20 132/87 93 L 04/13/18 20:18 04/13/18 20:18 04/13/18 20:18 04/13/18 20:18 04/13/18 20:18 Intake and Output: 04/13/18 04/14/18 18:59 06:59 Intake Total 570 Balance 570 - Medications Medications: Current Medications Acetaminophen (Tylenol 325mg Tab) 650 mg PO Q6H PRN PRN Reason: Fever >100.4 F Acetaminophen (Tylenol 325mg Tab) 650 mg PO Q6 PRN PRN Reason: Pain, moderate (4-7) Last Admin: 04/12/18 21:35 Dose: 650 mg Albuterol Sulfate (Albuterol 0.042% Inhal Soco (1.25mg/3ml) Ud) 2.5 mg INH RQ6 PRN PRN Reason: Shortness of Breath Last Admin: 04/11/18 08:14 Dose: 2.5 mg Calcium Acetate (Phoslo) 1,334 mg PO WM [facility] Last Admin: 04/13/18 18:54 Dose: 1,334 mg Epoetin Charles (Procrit) 10,000 unit SC TTS [facility] Last Admin: 04/12/18 10:03 Dose: 10,000 unit Ergocalciferol (Drisdol 50,000 Intl Units Cap) 1 cap PO Q7D [facility] Last Admin: 04/10/18 08:59 Dose: 1 cap Famotidine (Pepcid) 20 mg PO DAILY [facility] Last Admin: 04/13/18 10:33 Dose: 20 mg Finasteride (Proscar) 5 mg PO DAILY [facility] Last Admin: 04/13/18 10:34 Dose: 5 mg Fluticasone Propionate (Flonase) 1 spr [facility] DAILY PRN PRN Reason: Nasal congestion Ceftriaxone Sodium 1 gm/ (Sodium Chloride) 100 mls @ 100 mls/hr IVPB DAILY [facility] PRN Reason: Protocol Last Admin: 04/13/18 10:37 Dose: 100 mls/hr Piperacillin Sod/Tazobactam (Sod 2.25 gm/ Sodium Chloride) 100 mls @ 100 mls/ hr IVPB Q12 [facility] PRN Reason: Protocol Stop: 04/18/18 10:16 Last Admin: 04/13/18 20:59 Dose: 100 mls/hr Metoprolol Succinate (Toprol Xl) 25 mg PO DAILY [facility] Last Admin: 04/13/18 16:23 Dose: 25 mg Pantoprazole Sodium (Protonix Ec Tab) 40 mg PO DAILY [facility] Last Admin: 04/13/18 10:35 Dose: 40 mg Sodium Bicarbonate (Sodium Bicarbonate Tab) 1,300 mg PO TID [facility] Last Admin: 04/13/18 16:25 Dose: 1,300 mg Tamsulosin HCl (Flomax) 0.4 mg PO QPM [facility] Last Admin: 04/13/18 18:54 Dose: 0.4 mg Tobramycin/Dexamethasone (Tobradex 0.3%-0.1% Opht Oint) 1 appl OD Q8H [facility] Last Admin: 04/13/18 20:59 Dose: 1 applic Vitamin B Complex/Vit C/Folic Acid (Nephro-Jj) 1 tab PO DAILY [facility] Last Admin: 04/13/18 10:33 Dose: 1 tab - Labs Labs: 04/12/18 09:30 04/13/18 20:35 PT 14.7 Seconds (9.8-13.1) H 04/12/18 12:41 INR 1.3 04/12/18 12:41 APTT 43.9 Seconds (25.6-37.1) H 04/11/18 08:17 - Constitutional Appears: In Acute Distress, Confused - Head Exam Head Exam: ATRAUMATIC, NORMAL INSPECTION, NORMOCEPHALIC - Eye Exam Eye Exam: EOMI, Normal appearance, PERRL Pupil Exam: NORMAL ACCOMODATION, PERRL - ENT Exam ENT Exam: Mucous Membranes Moist, Normal Exam - Neck Exam Neck Exam: Full ROM, Normal Inspection. absent: Lymphadenopathy - Respiratory Exam Respiratory Exam: Decreased Breath Sounds. absent: Rales - Cardiovascular Exam Cardiovascular Exam: Tachycardia, Irregular Rhythm, +S1, +S2. absent: Murmur - GI/Abdominal Exam GI & Abdominal Exam: Soft, Normal Bowel Sounds. absent: Tenderness - Extremities Exam Extremities Exam: Normal Capillary Refill, Normal Inspection, Pedal Edema. absent: Joint Swelling - Back Exam Back Exam: NORMAL INSPECTION - Neurological Exam Neurological Exam: Abnormal Gait, Alert, Awake, CN II-XII Intact, Oriented x3 - Psychiatric Exam Psychiatric exam: Normal Affect, Normal Mood - Skin Skin Exam: Dry, Intact, Normal Color, Warm Assessment and Plan (1) Altered mental status Assessment & Plan: Resolved Continue to Monitor Status: Resolved (2) Severe anemia S/P 6 Units of PRBCs, Hgb 9.0mg/dl Assessment & Plan: No New Complaint. H/H continue to be Low and on Iron Infusion. Monitor H/H Status: Acute (3) Hyperkalemia-Resolved Assessment & Plan: Monitor Status: Resolved (4) Acute on chronic renal failure, S/P Biopsy, Gross Hematuria- Worsening Worsening Azotemia Started ON HD with No Improvement with RX (Steroid Pulse, Rituximab, and Plasmapheresis) Status: Acute Monitor BMP IVF Going for Cystotsopy (5) New onset A-fib with RVR ICU Consulted. Continue Current Care Digoxin as ordered by the loop machine operator. Status: Acute (6) Thrombocytosis- Improved Status: Acute
[2018-04-14] MEDS: Tobramycin/Dexamethasone OPHT OINT OD SCH ×3 (05:17→21:23)
[2018-04-14 06:32] LABS: BASO % 0.1 % (0.0-2.0); EOS # 0.3 K/uL (0.0-0.7); HEMOGLOBIN 7.7 g/dL (12.0-18.0); LYMPH # 0.4 K/uL (1.0-4.3); LYMPH % 3.2 % (20.0-40.0); MEAN CELL VOLUME 86.7 fl (80.0-94.0); MEAN CORPUSCULAR HEMOGLOBIN 27.9 pg (27.0-31.0); MEAN CORPUSCULAR HGB CONC 32.1 g/dL (33.0-37.0); MEAN PLATELET VOLUME 7.2 fl (7.2-11.7); MONO # 0.7 K/uL (0.0-0.8); MONO % 5.7 % (0.0-10.0); NEUT # 11.2 K/uL (1.8-7.0); NRBC % 0.1 % (0.0-0.0); RBC 2.76 Mil/uL (4.40-5.90); RED CELL DISTRIBUTION WIDTH 33.4 % (11.5-14.5); WHITE BLOOD COUNT 12.6 K/uL (4.8-10.8)
[2018-04-14 06:59] LABS: ALB/GLOB RATIO 1.3 (1.0-2.1); ALBUMIN 2.2 g/dL (3.5-5.0); CALCIUM 7.7 mg/dL (8.4-10.2)
[2018-04-14] MEDS: Multivitamin Vitamin B Complex (Nephro-Vite) Tab PO SCH (08:27)
[2018-04-14] MEDS: EPOETIN ALFA 10,000 UNIT/ML ML SC SCH (08:28)
[2018-04-14] MEDS: Pantoprazole 40 mg EC Tab PO SCH (08:30)
[2018-04-14] MEDS: Metoprolol Succinate 25 mg XL Tab PO SCH (08:35)
--- NOTE | 2018-04-14 08:38 | RAD ---
Date of service: 04/13/2018 PROCEDURE: CHEST RADIOGRAPH, 1 VIEW HISTORY: Pulmonary infiltrate COMPARISON: 04/01/2018. FINDINGS: Right-sided central venous catheter terminates in the SVC. LUNGS: The lungs are well inflated. There is worsening consolidation in the right perihilar region and lower lobe. The left lung is clear. PLEURA: No pneumothorax. Small pleural effusions. CARDIOVASCULAR: Persistent mild cardiomegaly and prominent central vasculature. OSSEOUS STRUCTURES: No significant abnormalities. VISUALIZED UPPER ABDOMEN: Normal. OTHER FINDINGS: None. IMPRESSION: Worsening right perihilar and lower lobe pulmonary edema versus pneumonia. Small pleural effusions.
--- NOTE | 2018-04-14 09:48 | CP.PCM.PN ---
Subjective - Date & Time of Evaluation Date of Evaluation: 04/14/18 Time of Evaluation: 09:54 - Subjective Subjective: patient in bed No nausea no vomiting patient has a good appetite and is drinking a lot of fluid Patient explained the need to have fluid restriction because of the edematous state Objective - Vital Signs/Intake and Output Vital Signs (last 24 hours): Temp Pulse Resp BP Pulse Ox 97.5 F L 114 H 20 159/90 H 98 04/14/18 08:00 04/14/18 08:35 04/14/18 08:00 04/14/18 08:35 04/14/18 08:00 Intake and Output: 04/14/18 04/14/18 06:59 18:59 Intake Total 400 Balance 400 - Medications Medications: Current Medications Acetaminophen (Tylenol 325mg Tab) 650 mg PO Q6H PRN PRN Reason: Fever >100.4 F Acetaminophen (Tylenol 325mg Tab) 650 mg PO Q6 PRN PRN Reason: Pain, moderate (4-7) Last Admin: 04/13/18 23:41 Dose: 650 mg Albuterol Sulfate (Albuterol 0.042% Inhal Soco (1.25mg/3ml) Ud) 2.5 mg INH RQ6 PRN PRN Reason: Shortness of Breath Last Admin: 04/11/18 08:14 Dose: 2.5 mg Calcium Acetate (Phoslo) 1,334 mg PO WM [facility] Last Admin: 04/14/18 08:26 Dose: 1,334 mg Epoetin Charles (Procrit) 10,000 unit SC TTS [facility] Last Admin: 04/14/18 08:28 Dose: 10,000 unit Ergocalciferol (Drisdol 50,000 Intl Units Cap) 1 cap PO Q7D [facility] Last Admin: 04/10/18 08:59 Dose: 1 cap Famotidine (Pepcid) 20 mg PO DAILY [facility] Last Admin: 04/14/18 08:27 Dose: 20 mg Finasteride (Proscar) 5 mg PO DAILY [facility] Last Admin: 04/14/18 08:29 Dose: 5 mg Fluticasone Propionate (Flonase) 1 spr [facility] DAILY PRN PRN Reason: Nasal congestion Ceftriaxone Sodium 1 gm/ (Sodium Chloride) 100 mls @ 100 mls/hr IVPB DAILY [facility] PRN Reason: Protocol Last Admin: 04/14/18 08:30 Dose: 100 mls/hr Piperacillin Sod/Tazobactam (Sod 2.25 gm/ Sodium Chloride) 100 mls @ 100 mls/ hr IVPB Q12 [facility] PRN Reason: Protocol Stop: 04/18/18 10:16 Last Admin: 04/14/18 08:32 Dose: 100 mls/hr Metoprolol Succinate (Toprol Xl) 25 mg PO DAILY [facility] Last Admin: 04/14/18 08:35 Dose: 25 mg Pantoprazole Sodium (Protonix Ec Tab) 40 mg PO DAILY [facility] Last Admin: 04/14/18 08:30 Dose: 40 mg Sodium Bicarbonate (Sodium Bicarbonate Tab) 1,300 mg PO TID [facility] Last Admin: 04/14/18 08:31 Dose: 1,300 mg Tamsulosin HCl (Flomax) 0.4 mg PO QPM [facility] Last Admin: 04/13/18 18:54 Dose: 0.4 mg Tobramycin/Dexamethasone (Tobradex 0.3%-0.1% Opht Oint) 1 appl OD Q8H [facility] Last Admin: 04/14/18 05:17 Dose: 1 applic Vitamin B Complex/Vit C/Folic Acid (Nephro-Jj) 1 tab PO DAILY [facility] Last Admin: 04/14/18 08:27 Dose: 1 tab - Labs Labs: 04/14/18 05:45 04/14/18 05:45 PT 14.7 Seconds (9.8-13.1) H 04/12/18 12:41 INR 1.3 04/12/18 12:41 APTT 43.9 Seconds (25.6-37.1) H 04/11/18 08:17 - Constitutional Appears: No Acute Distress - Eye Exam Eye Exam: Conjunctival injection - Neck Exam Neck Exam: absent: Lymphadenopathy - Respiratory Exam Respiratory Exam: NORMAL BREATHING PATTERN - Cardiovascular Exam Cardiovascular Exam: absent: Gallop, JVD, Rubs - GI/Abdominal Exam GI & Abdominal Exam: Soft, Normal Bowel Sounds - Extremities Exam Extremities Exam: absent: Calf Tenderness - Back Exam Back Exam: absent: CVA tenderness (L), CVA tenderness (R) - Neurological Exam Neurological Exam: Alert - Psychiatric Exam Psychiatric exam: Normal Affect - Skin Skin Exam: absent: Cyanosis Assessment and Plan (1) Hyperkalemia Status: Resolved (2) Acute renal failure (ARF) Assessment & Plan: 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 And pleural effusion. Status post TURP anemia urinary tract infection patient is receiving Zosyn pneumonia leg edema the plan Patient received 3 time plasma phoresis including yesterday when the fibrinogen level came up schaduled for plasmaphoresis today #4 and day if fibrinogen over 100 Patient receiving hemodialysis tomrrow 3RD RX Dialysis order discussed with the dialysis nurse at the bedside Patient already receive 3 days pulses steroid Patient already received 1 dose of rituximab 1 g And the patient has not been responsive to treatment so far We will plan for permacath for chronic dialysis most likely for chronc HD repeat urine cult. blood transfusion severe hypoalbuminemia patient need nutritional support and oral supplement Please call dietitian for consultation for evaluation of hypoalbuminemia and recommendation fluid restriction 1100 mL Status: Acute
[2018-04-14 10:13] LABS: INR 1.5; PROTHROMBIN TIME 16.2 Seconds (9.8-13.1)
[2018-04-14 10:15] LABS: PARTIAL THROMBOPLASTIN TIME 29.7 Seconds (25.6-37.1)
[2018-04-14] MEDS ORDERED: Albumin Human 5% (12.5 gm/250 ml) IV ONE (10:39)
--- NOTE | 2018-04-14 14:09 | CARD ---
APPROVED REPORT Date of service: 04/13/2018 EKG Measurement Heart [id number] <Conclusion> Atrial fibrillation with rapid ventricular response Low voltage QRS NSTT wave abnormality prolonged QT Abnormal ECG
--- NOTE | 2018-04-14 17:36 | PN ---
Copied To: Kali Moran MD Attending MD: Kali Moran MD DATE: 04/14/2018 SUBJECTIVE: I was notified yesterday because the patient had rapid atrial fibrillation and his metoprolol succinate was withheld and was given; however, the patient continued to have rapid AFib and I did order one dose of 0.125 of IV digoxin. I requested ICU evaluation but was not considered a candidate The patient's x-ray yesterday revealed worsening of the right lower lobe and right perihilar infiltrate. The patient so far did receive two hemodialysis yesterday and the day before and currently undergoing plasmapheresis. The patient denies any chest pain. He is mildly short of breath. PHYSICAL EXAMINATION: VITAL SIGNS: Blood pressure , heart rate 109, temperature 98.3, respirations 20. HEENT: Pale conjunctivae. CHEST: Bibasal coarse crepitations. HEART: S1 and S2, regular. ABDOMEN: Soft. EXTREMITIES: 2+ pitting edema. LABORATORY DATA: Hemoglobin and hematocrit 7.7 and 23.9, white count 12.6, and platelet count 95,000. SMA-7: Sodium 137, potassium 3.8, chloride 108, CO2 of 20, glucose 86, BUN 43, and creatinine 4.7. Troponin on admission was 0.034. Fibrin degradation product was positive as of yesterday. Today his INR is 1.5. Echocardiographic study reveal [id number] concentric LVH with normal ejection fraction was estimated at 60%. Regional wall motion abnormality was noted in the mid septal wall. Mild mitral insufficiency. [id number] enlarged aortic root and mild pulmonic insufficiency. EKG today revealed atrial fibrillation at the rate of 114, with low voltage device complex. Chest CT scan performed on 04/04/2018, i.e. ten days ago was consistent with a multifocal bilateral pulmonary alveolar infiltrate right greater than left focal areas scarring/mass right upper lobe. Bilateral pulmonary nodules. Bilateral pleural effusion, which are small and approximately symmetrical. Head CT scan without contrast three days ago, no acute intracranial findings. Lumbar spine x-ray, no acute findings. Hip and pelvic x-ray, no acute findings. ASSESSMENT: 1. Acute renal sufficiency. 2. Rapid atrial fibrillation. 3. Worsening right lower lobe and right middle lung zone pneumonia. 4. Anemia and thrombocytopenia. 5. Rule out deep vein thrombosis and the possibility of pulmonary embolism. 6. Acute renal failure requiring hemodialysis. 7. Hypokalemia. RECOMMENDATIONS: Continue Toprol XL 25 mg daily. Continue Zosyn 2.25 g intravenously every 12 hours. Continue Rocephin intravenously daily and calcium gluconate infusion. I will obtain venous Doppler of the lower extremities on urgent basis and if positive, I will proceed with CT angio of the chest. Kali Moran MD [id number]
--- NOTE | 2018-04-14 17:57 | US ---
Date of service: 04/14/2018 PROCEDURE: Bilateral lower extremity venous duplex Doppler. HISTORY: r/o DVT COMPARISON: None available. TECHNIQUE: Bilateral common femoral, superficial femoral, popliteal and posterior tibial veins were evaluated. Flow was assessed with color Doppler, compressibility, assessment of phasic flow and augmentation response. FINDINGS: COMMON FEMORAL VEIN: Right CFV: Unremarkable. Left CFV: Unremarkable. SUPERFICIAL FEMORAL VEIN: Right SFV: Unremarkable. Left SFV: Unremarkable. POPLITEAL VEIN: Right Popliteal: Unremarkable. Left Popliteal: Unremarkable. POSTERIOR TIBIAL VEIN: Right PTV: Unremarkable. Left PTV: Unremarkable. OTHER FINDINGS: Bilateral lower extremity edema. IMPRESSION: No evidence of deep venous thrombosis.
--- NOTE | 2018-04-14 18:02 | US ---
Date of service: 04/14/2018 PROCEDURE: Left Upper Extremity Venous Doppler HISTORY: hematoma COMPARISON: None available. TECHNIQUE: Left upper extremity deep veins, including the lower internal jugular, subclavian, axillary and brachial veins, were evaluated flow, compressibility and respiratory phasicity. FINDINGS: Normal flow, compressibility and respiratory phasicity was observed in the the left upper extremity deep veins. IMPRESSION: No evidence of deep venous thrombosis. Complex collection left mid arm adjacent to the brachial vein measuring 1.9 x 3.2 x 12.1 cm. The findings are likely infectious/inflammatory. There is cutaneous and subcutaneous edema associated with this likely abscess.
--- NOTE | 2018-04-15 04:47 | CP.PCM.PN ---
Subjective - Date & Time of Evaluation Date of Evaluation: 04/14/18 Time of Evaluation: 22:15 Objective - Vital Signs/Intake and Output Vital Signs (last 24 hours): Temp Pulse Resp BP Pulse Ox 97.7 F 92 H 18 147/79 100 04/15/18 04:30 04/15/18 04:30 04/15/18 04:30 04/15/18 04:30 04/15/18 04:30 Intake and Output: 04/14/18 04/15/18 18:59 06:59 Intake Total 440 Balance 440 - Medications Medications: Current Medications Acetaminophen (Tylenol 325mg Tab) 650 mg PO Q6H PRN PRN Reason: Fever >100.4 F Acetaminophen (Tylenol 325mg Tab) 650 mg PO Q6 PRN PRN Reason: Pain, moderate (4-7) Last Admin: 04/14/18 20:49 Dose: 650 mg Albumin Human (Albumin Human 5% (12.5 Gm/250 Ml)) 200 gm IV ONCE ONE Stop: 04/16/18 16:01 Albuterol Sulfate (Albuterol 0.042% Inhal Soco (1.25mg/3ml) Ud) 2.5 mg INH RQ6 PRN PRN Reason: Shortness of Breath Last Admin: 04/11/18 08:14 Dose: 2.5 mg Calcium Acetate (Phoslo) 1,334 mg PO WM [facility] Last Admin: 04/14/18 18:29 Dose: Not Given Epoetin Charles (Procrit) 10,000 unit SC TTS [facility] Last Admin: 04/14/18 08:28 Dose: 10,000 unit Ergocalciferol (Drisdol 50,000 Intl Units Cap) 1 cap PO Q7D [facility] Last Admin: 04/10/18 08:59 Dose: 1 cap Famotidine (Pepcid) 20 mg PO DAILY [facility] Last Admin: 04/14/18 08:27 Dose: 20 mg Finasteride (Proscar) 5 mg PO DAILY [facility] Last Admin: 04/14/18 08:29 Dose: 5 mg Fluticasone Propionate (Flonase) 1 spr [place] DAILY PRN PRN Reason: Nasal congestion Ceftriaxone Sodium 1 gm/ (Sodium Chloride) 100 mls @ 100 mls/hr IVPB DAILY [facility] PRN Reason: Protocol Last Admin: 04/14/18 08:30 Dose: 100 mls/hr Piperacillin Sod/Tazobactam (Sod 2.25 gm/ Sodium Chloride) 100 mls @ 100 mls/ hr IVPB Q12 [facility] PRN Reason: Protocol Stop: 04/18/18 10:16 Last Admin: 04/14/18 20:51 Dose: 100 mls/hr Metoprolol Succinate (Toprol Xl) 25 mg PO DAILY [facility] Last Admin: 04/14/18 08:35 Dose: 25 mg Pantoprazole Sodium (Protonix Ec Tab) 40 mg PO DAILY [facility] Last Admin: 04/14/18 08:30 Dose: 40 mg Sodium Bicarbonate (Sodium Bicarbonate Tab) 1,300 mg PO TID [facility] Last Admin: 04/14/18 16:14 Dose: Not Given Tamsulosin HCl (Flomax) 0.4 mg PO QPM [facility] Last Admin: 04/14/18 18:29 Dose: Not Given Tobramycin/Dexamethasone (Tobradex 0.3%-0.1% Opht Oint) 1 appl OD Q8H [facility] Last Admin: 04/14/18 21:23 Dose: 1 applic Vitamin B Complex/Vit C/Folic Acid (Nephro-Jj) 1 tab PO DAILY [facility] Last Admin: 04/14/18 08:27 Dose: 1 tab - Labs Labs: 04/14/18 05:45 04/14/18 05:45 PT 16.2 Seconds (9.8-13.1) H 04/14/18 09:53 INR 1.5 04/14/18 09:53 APTT 29.7 Seconds (25.6-37.1) 04/14/18 09:53 Assessment and Plan (1) Altered mental status Status: Acute
[2018-04-15] MEDS: Tobramycin/Dexamethasone OPHT OINT OD SCH ×3 (04:57→21:08)
[2018-04-15] MEDS: Multivitamin Vitamin B Complex (Nephro-Vite) Tab PO SCH (08:52)
[2018-04-15] MEDS: Pantoprazole 40 mg EC Tab PO SCH (08:57)
[2018-04-15 10:17] LABS: BASO % 0.3 % (0.0-2.0); EOS # 0.3 K/uL (0.0-0.7); EOS % 2.7 % (0.0-4.0); HEMOGLOBIN 6.9 g/dL (12.0-18.0); LYMPH # 0.3 K/uL (1.0-4.3); LYMPH % 2.8 % (20.0-40.0); MEAN CORPUSCULAR HEMOGLOBIN 27.8 pg (27.0-31.0); MEAN CORPUSCULAR HGB CONC 31.6 g/dL (33.0-37.0); MEAN PLATELET VOLUME 7.7 fl (7.2-11.7); MONO # 0.7 K/uL (0.0-0.8); MONO % 5.5 % (0.0-10.0); NEUT # 10.5 K/uL (1.8-7.0); NEUT % 88.7 % (50.0-75.0); NRBC % 0.1 % (0.0-0.0); PLATELET COUNT 72 K/uL (130-400); RBC 2.47 Mil/uL (4.40-5.90); RED CELL DISTRIBUTION WIDTH 33.5 % (11.5-14.5); WHITE BLOOD COUNT 11.9 K/uL (4.8-10.8)
[2018-04-15 10:23] LABS: ALB/GLOB RATIO 1.6 (1.0-2.1); ALBUMIN 2.6 g/dL (3.5-5.0)
[2018-04-15 11:30] LABS: ANISOCYTOSIS SLIGHT; BANDS 1 % (0-2); EOSINOPHIL 3 % (0-7); LYMPHOCYTE 8 % (20-50); MONOCYTE 2 % (0-10); NEUTROPHIL 86 % (42-75); PLATELET ESTIMATE DECREASED (NORMAL); POIKILOCYTOSIS SLIGHT; TOTAL CELLS COUNTED 100
--- NOTE | 2018-04-15 12:21 | CP.PCM.PN ---
<Mali Wood - Last Filed: 04/15/18 13:13> Subjective - Date & Time of Evaluation Date of Evaluation: 04/15/18 Time of Evaluation: 10:15 - Subjective Subjective: Mali Alfonso , PGY-1 Patient seen & examined this AM. 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 Patient is laying in bed, appears comfortable, with no acute distress noted. -Vitals: Temp:97.7F, HR-92bpm, BP-147/79 -Patient agreeable with CXR today as interpreted by Dr. Parks. -Will continue to follow. Bronchoscopy with lavage may be necessary. C Objective - Vital Signs/Intake and Output Vital Signs (last 24 hours): Temp Pulse Resp BP Pulse Ox 97.8 F 113 H 20 159/94 H 97 04/15/18 11:56 04/15/18 11:56 04/15/18 11:56 04/15/18 11:56 04/15/18 11:56 - Medications Medications: Current Medications Acetaminophen (Tylenol 325mg Tab) 650 mg PO Q6H PRN PRN Reason: Fever >100.4 F Acetaminophen (Tylenol 325mg Tab) 650 mg PO Q6 PRN PRN Reason: Pain, moderate (4-7) Last Admin: 04/14/18 20:49 Dose: 650 mg Albumin Human (Albumin Human 5% (12.5 Gm/250 Ml)) 200 gm IV ONCE ONE Stop: 04/16/18 16:01 Albuterol Sulfate (Albuterol 0.042% Inhal Soco (1.25mg/3ml) Ud) 2.5 mg INH RQ6 PRN PRN Reason: Shortness of Breath Last Admin: 04/11/18 08:14 Dose: 2.5 mg Calcium Acetate (Phoslo) 1,334 mg PO WM [facility] Last Admin: 04/15/18 08:54 Dose: 1,334 mg Epoetin Charles (Procrit) 10,000 unit SC TTS [facility] Last Admin: 04/14/18 08:28 Dose: 10,000 unit Ergocalciferol (Drisdol 50,000 Intl Units Cap) 1 cap PO Q7D [facility] Last Admin: 04/10/18 08:59 Dose: 1 cap Famotidine (Pepcid) 20 mg PO DAILY [facility] Last Admin: 04/15/18 08:52 Dose: 20 mg Finasteride (Proscar) 5 mg PO DAILY [facility] Last Admin: 04/15/18 08:55 Dose: 5 mg Fluticasone Propionate (Flonase) 1 spr [place] DAILY PRN PRN Reason: Nasal congestion Piperacillin Sod/Tazobactam (Sod 2.25 gm/ Sodium Chloride) 100 mls @ 100 mls/ hr IVPB Q12 [facility] PRN Reason: Protocol Stop: 04/18/18 10:16 Last Admin: 04/14/18 20:51 Dose: 100 mls/hr Metoprolol Succinate (Toprol Xl) 25 mg PO DAILY [facility] Last Admin: 04/14/18 08:35 Dose: 25 mg Pantoprazole Sodium (Protonix Ec Tab) 40 mg PO DAILY [facility] Last Admin: 04/15/18 08:57 Dose: 40 mg Sodium Bicarbonate (Sodium Bicarbonate Tab) 1,300 mg PO TID [facility] Last Admin: 04/15/18 08:52 Dose: 1,300 mg Tamsulosin HCl (Flomax) 0.4 mg PO QPM [facility] Last Admin: 04/14/18 18:29 Dose: Not Given Tobramycin/Dexamethasone (Tobradex 0.3%-0.1% Opht Oint) 1 appl OD Q8H [facility] Last Admin: 04/15/18 04:57 Dose: 1 applic Vitamin B Complex/Vit C/Folic Acid (Nephro-Jj) 1 tab PO DAILY [facility] Last Admin: 04/15/18 08:52 Dose: 1 tab - Labs Labs: 04/15/18 08:15 04/15/18 08:15 PT 16.2 Seconds (9.8-13.1) H 04/14/18 09:53 INR 1.5 04/14/18 09:53 APTT 29.7 Seconds (25.6-37.1) 04/14/18 09:53 <Stehpan Sandoval - Last Filed: 04/15/18 13:20> Subjective - Subjective Subjective: Seen and examined together with the residents on rounds earlier today. Plan of care was discussed as expressed in the entry made by the resident. Objective - Vital Signs/Intake and Output Vital Signs (last 24 hours): Temp Pulse Resp BP Pulse Ox 97.8 F 113 H 20 159/94 H 97 08/17/18 11:56 04/15/18 12:29 04/15/18 11:56 04/15/18 12:29 04/15/18 11:56 - Medications Medications: Current Medications Acetaminophen (Tylenol 325mg Tab) 650 mg PO Q6H PRN PRN Reason: Fever >100.4 F Acetaminophen (Tylenol 325mg Tab) 650 mg PO Q6 PRN PRN Reason: Pain, moderate (4-7) Last Admin: 04/14/18 20:49 Dose: 650 mg Albumin Human (Albumin Human 5% (12.5 Gm/250 Ml)) 200 gm IV ONCE ONE Stop: 04/16/18 16:01 Albuterol/Ipratropium (Duoneb 3 Mg/0.5 Mg (3 Ml) Ud) 3 ml INH RQID [facility] Calcium Acetate (Phoslo) 1,334 mg PO WM [facility] Last Admin: 04/15/18 12:30 Dose: 1,334 mg Epoetin Charles (Procrit) 10,000 unit SC TTS [facility] Last Admin: 04/14/18 08:28 Dose: 10,000 unit Ergocalciferol (Drisdol 50,000 Intl Units Cap) 1 cap PO Q7D [facility] Last Admin: 04/10/18 08:59 Dose: 1 cap Famotidine (Pepcid) 20 mg PO DAILY [facility] Last Admin: 04/15/18 08:52 Dose: 20 mg Finasteride (Proscar) 5 mg PO DAILY [facility] Last Admin: 04/15/18 08:55 Dose: 5 mg Fluticasone Propionate (Flonase) 1 spr [place] DAILY PRN PRN Reason: Nasal congestion Guaifenesin (Mucinex La) 1,200 mg PO Q12 [facility] Piperacillin Sod/Tazobactam (Sod 2.25 gm/ Sodium Chloride) 100 mls @ 100 mls/ hr IVPB Q12 [facility] PRN Reason: Protocol Stop: 04/18/18 10:16 Last Admin: 04/14/18 20:51 Dose: 100 mls/hr Metoprolol Succinate (Toprol Xl) 25 mg PO DAILY [facility] Last Admin: 04/15/18 12:29 Dose: 25 mg Pantoprazole Sodium (Protonix Ec Tab) 40 mg PO DAILY [facility] Last Admin: 04/15/18 08:57 Dose: 40 mg Sodium Bicarbonate (Sodium Bicarbonate Tab) 1,300 mg PO TID [facility] Last Admin: 04/15/18 12:30 Dose: 1,300 mg Tamsulosin HCl (Flomax) 0.4 mg PO QPM [facility] Last Admin: 04/14/18 18:29 Dose: Not Given Tobramycin/Dexamethasone (Tobradex 0.3%-0.1% Opht Oint) 1 appl OD Q8H [facility] Last Admin: 04/15/18 12:30 Dose: 1 applic Vitamin B Complex/Vit C/Folic Acid (Nephro-Jj) 1 tab PO DAILY [facility] Last Admin: 04/15/18 08:52 Dose: 1 tab - Labs Labs: 04/15/18 08:15 04/15/18 08:15 PT 16.2 Seconds (9.8-13.1) H 04/14/18 09:53 INR 1.5 04/14/18 09:53 APTT 29.7 Seconds (25.6-37.1) 04/14/18 09:53 Assessment and Plan (1) Pulmonary infiltrate Status: Acute
[2018-04-15] MEDS: Metoprolol Succinate 25 mg XL Tab PO SCH (12:29)
--- NOTE | 2018-04-15 14:06 | CP.PCM.CON ---
History of Present Illness - History of Present Illness History of Present Illness: Patient is alert, hebrew speaking, c/o pain in his right hip. Review of Systems - Review of Systems All systems: reviewed and no additional remarkable complaints except - Musculoskeletal Musculoskeletal: Other (right hip pain) Past Patient History - Infectious Disease Hx of Infectious Diseases: None - Past Medical History & Family History Past Medical History?: Yes Past Family History: Reviewed and not pertinent - Past Social History Smoking Status: Former Smoker Alcohol: None Drugs: Denies - CARDIAC Hx Hypertension: No - PULMONARY Hx Respiratory Disorders: No - NEUROLOGICAL Hx Neurological Disorder: No - HEENT Hx HEENT Problems: Yes - RENAL Hx Chronic Kidney Disease: No - ENDOCRINE/METABOLIC Hx Endocrine Disorders: No - HEMATOLOGICAL/ONCOLOGICAL Hx Blood Disorders: Yes - INTEGUMENTARY Hx Dermatological Problems: No - MUSCULOSKELETAL/RHEUMATOLOGICAL Hx Musculoskeletal Disorders: Yes - GASTROINTESTINAL Hx Gastrointestinal Disorders: No - GENITOURINARY/GYNECOLOGICAL Hx Genitourinary Disorders: Yes (RETENTION BUTLER TO SGD) - PSYCHIATRIC Hx Psychophysiologic Disorder: No - SURGICAL HISTORY Hx Appendectomy: Yes - ANESTHESIA Hx Anesthesia: Yes Hx Anesthesia Reactions: No Hx Malignant Hyperthermia: No Meds Allergies/Adverse Reactions: Allergies Allergy/AdvReac Type Severity Reaction Status Date / Time No Known Allergies Allergy Verified 01/02/14 08:07 - Medications Medications: Current Medications Acetaminophen (Tylenol 325mg Tab) 650 mg PO Q6H PRN PRN Reason: Fever >100.4 F Acetaminophen (Tylenol 325mg Tab) 650 mg PO Q6 PRN PRN Reason: Pain, moderate (4-7) Last Admin: 04/14/18 20:49 Dose: 650 mg Albumin Human (Albumin Human 5% (12.5 Gm/250 Ml)) 200 gm IV ONCE ONE Stop: 04/16/18 16:01 Albuterol/Ipratropium (Duoneb 3 Mg/0.5 Mg (3 Ml) Ud) 3 ml INH RQID [facility] Calcium Acetate (Phoslo) 1,334 mg PO WM [facility] Last Admin: 04/15/18 12:30 Dose: 1,334 mg Epoetin Charles (Procrit) 10,000 unit SC TTS [facility] Last Admin: 04/14/18 08:28 Dose: 10,000 unit Ergocalciferol (Drisdol 50,000 Intl Units Cap) 1 cap PO Q7D [facility] Last Admin: 04/10/18 08:59 Dose: 1 cap Famotidine (Pepcid) 20 mg PO DAILY [facility] Last Admin: 04/15/18 08:52 Dose: 20 mg Finasteride (Proscar) 5 mg PO DAILY [facility] Last Admin: 04/15/18 08:55 Dose: 5 mg Fluticasone Propionate (Flonase) 1 spr [place] DAILY PRN PRN Reason: Nasal congestion Guaifenesin (Mucinex La) 1,200 mg PO Q12 [facility] Piperacillin Sod/Tazobactam (Sod 2.25 gm/ Sodium Chloride) 100 mls @ 100 mls/ hr IVPB Q12 [facility] PRN Reason: Protocol Stop: 04/18/18 10:16 Last Admin: 04/14/18 20:51 Dose: 100 mls/hr Metoprolol Succinate (Toprol Xl) 25 mg PO DAILY [facility] Last Admin: 04/15/18 12:29 Dose: 25 mg Pantoprazole Sodium (Protonix Ec Tab) 40 mg PO DAILY [facility] Last Admin: 04/15/18 08:57 Dose: 40 mg Sodium Bicarbonate (Sodium Bicarbonate Tab) 1,300 mg PO TID [facility] Last Admin: 04/15/18 12:30 Dose: 1,300 mg Tamsulosin HCl (Flomax) 0.4 mg PO QPM [facility] Last Admin: 04/14/18 18:29 Dose: Not Given Tobramycin/Dexamethasone (Tobradex 0.3%-0.1% Opht Oint) 1 appl OD Q8H [facility] Last Admin: 04/15/18 12:30 Dose: 1 applic Vitamin B Complex/Vit C/Folic Acid (Nephro-Jj) 1 tab PO DAILY [facility] Last Admin: 04/15/18 08:52 Dose: 1 tab Physical Exam - Head Exam Head Exam: ATRAUMATIC, NORMAL INSPECTION, NORMOCEPHALIC - Eye Exam Eye Exam: EOMI, Normal appearance, PERRL - ENT Exam ENT Exam: Mucous Membranes Moist, Normal Exam - Respiratory Exam Respiratory Exam: Clear to Auscultation Bilateral, NORMAL BREATHING PATTERN - Cardiovascular Exam Cardiovascular Exam: Irregular Rhythm - GI/Abdominal Exam GI & Abdominal Exam: Normal Bowel Sounds, Soft. absent: Tenderness - Neurological Exam Neurological exam: Alert, CN II-XII Intact Results - Vital Signs Recent Vital Signs: Last Vital Signs Temp 97.8 F 04/15/18 11:56 Pulse 113 H 04/15/18 12:29 Resp 20 04/15/18 11:56 BP 159/94 H 04/15/18 12:29 Pulse Ox 97 04/15/18 11:56 - Labs Result Diagrams: 04/15/18 08:15 04/15/18 08:15 Labs: Laboratory Results - last 24 hr 04/11/18 04/15/18 04/15/18 13:45 08:15 08:15 WBC 11.9 H RBC 2.47 L Hgb 6.9 L Hct 21.7 L MCV 88.0 MCH 27.8 MCHC 31.6 L RDW 33.5 H Plt Count 72 L D MPV 7.7 Neut % (Auto) 88.7 H Lymph % (Auto) 2.8 L [place] % (Auto) 5.5 Eos % (Auto) 2.7 Baso % (Auto) 0.3 Neut # (Auto) 10.5 H Lymph # (Auto) 0.3 L [place] # (Auto) 0.7 Eos # (Auto) 0.3 Baso # (Auto) 0.0 Neutrophils % (Manual) 86 H Band Neutrophils % 1 Lymphocytes % (Manual) 8 L Monocytes % (Manual) 2 Eosinophils % (Manual) 3 Platelet Estimate Decreased L Poikilocytosis (manual Slight Anisocytosis (manual) Slight Sodium 139 Potassium 3.6 Chloride 108 H Carbon Dioxide 22 Anion Gap 13 BUN 43 H Creatinine 5.1 H Est GFR ( Amer) 13 Est GFR (Non-Af Amer) 11 Random Glucose 67 L Calcium 8.0 L Total Bilirubin 1.0 AST 11 L ALT 21 Alkaline Phosphatase 22 L Total Protein 4.2 L Albumin 2.6 L Globulin 1.6 L Albumin/Globulin Ratio 1.6 Blood Type Antibody Screen Crossmatch See Detail BBK History Checked 04/15/18 11:50 WBC RBC Hgb Hct MCV MCH MCHC RDW Plt Count MPV Neut % (Auto) Lymph % (Auto) [place] % (Auto) Eos % (Auto) Baso % (Auto) Neut # (Auto) Lymph # (Auto) [place] # (Auto) Eos # (Auto) Baso # (Auto) Neutrophils % (Manual) Band Neutrophils % Lymphocytes % (Manual) Monocytes % (Manual) Eosinophils % (Manual) Platelet Estimate Poikilocytosis (manual Anisocytosis (manual) Sodium Potassium Chloride Carbon Dioxide Anion Gap BUN Creatinine Est GFR ( Amer) Est GFR (Non-Af Amer) Random Glucose Calcium Total Bilirubin AST ALT Alkaline Phosphatase Total Protein Albumin Globulin Albumin/Globulin Ratio Blood Type O POSITIVE Antibody Screen Negative Crossmatch See Detail BBK History Checked Patient has bt Assessment & Plan (1) Pneumonia Assessment and Plan: Neuro: alert and follows commands Pulm: RLL and RML pneumonia, duonebs qid, chest pt, guaifenessin, abx. CV: hemodynamically stable, pAfib rate controlled with metoprolol po qd. Hem: anemia of chronic disease, continue epoetin. Renal: ESRD on HD, MWF, was dilayzed today. BPH on Proscar and Flomax. Sodium Bicarbonate TID Endo: no acute issues GI: dysphagia diet ID: pneumonia continue Zosyn. If no improvement consider adding Vancomycin. DVT proph - SCD's GI proph - protonix Code status - full code clinically stable for continued management on the floors, please reconsult ICU if any change in the patient's clinical status. Critical Care Time spent 35 minutes The documented time is cumulative and includes review of patient data/exams/labs /chart review and examination of the patient on rounds and throughout the day; time is exclusive of any procedures or teaching time. Status: Acute
[2018-04-15] MEDS: guaiFENesin 600 mg ER Tab PO SCH ×2 (15:40→21:08)
[2018-04-15] MEDS: Albuterol-Ipratrop 3 mg / 0.5 (3 ml) UD INH SCH ×2 (16:00→20:02)
--- NOTE | 2018-04-15 17:07 | CP.PCM.PN ---
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 extra session tomorrow due to fluid overload s/p plasmapharesis 4 session, hold next pharesis due to decreasing Hct and Platelet counts. d/w RN s/p pulse steroids and rituxan. will add prednisone 60 mg/day. PCP prophylaxis with atovaquone added Hypertension control with meds as ordered. Patient not on ACEI/ARB due to [place]INT[place] Monitor Input/Output, daily weights and renal function with basic metabolic panel continue with epogen as increased and nephrovite. continue with weekly Vit D stop sodium bicarb as pt now on HD PRBC as needed for anemia, planned for 2 units 04/15/18 likely will need permacath placement Dose meds/antibiotics for reduced GFR. Avoid fleets enema/magnesium based laxatives. Avoid nephrotoxins/NSAIDs/ iodinated contrast (unless needed emergently) Glycemic control Further work up for as per primary team Thanks for allowing me to participate in care of your patient. Will follow patient with you. Please call if any Qs Dr Dominguez Nix Office: [phone] Subjective: Noted events overnight. Patients feels okay. Denies chest pain, palpitation, c/o shortness of breath, leg swelling. All other negative Physical Examination: General Appearance: Comfortable, in no acute respiratory distress, co-operative . ill appearing Vitals reviewed and noted as below Head; Atraumatic, normocephalic ENT: no ulcers no thrush. Tongue is midline. Oropharynx: no rash or ulcers. EYES: Pupils are equal, round and reactive to light accommodation. Eye muscles and extraocular movement intact. Sclera is anicteric. Neck; supple no lymphadenopathy, no thyromegaly or bruit Lungs: Normal respiratory rate/effort. Breath sounds bilateral with rales Heart: Normal rate. s1s2 normal. No rub or gallop. Extremities: 2+ edema. No varicose veins Neurological: Patient is alert, awake and oriented to person, place and time. No focal deficit. Strength bilateral appropriate and equal Skin: Warm and dry. Normal turgor. No rash. Palpitation: Normal elasticity for age Abdomen: Abdomen is soft. Bowel sounds +. There is no abdominal tenderness, no guarding/rigidity no organomegaly Psych: lackl insight and normal affect/mood MSK: no joint tenderness or swelling. Digits and nails normal, no deformity : kidney or bladder not palpable Labs/imaging reviewed. Past medical history, past surgical history, family history, social history, allergy reviewed and noted as below Family hx: no hx of CKD. Rest non-contributory Objective - Vital Signs/Intake and Output Vital Signs (last 24 hours): Temp Pulse Resp BP Pulse Ox 98.2 F 121 H 18 138/75 96 04/15/18 16:12 04/15/18 16:12 04/15/18 16:12 04/15/18 16:12 04/15/18 16:12 - Medications Medications: Current Medications Acetaminophen (Tylenol 325mg Tab) 650 mg PO Q6H PRN PRN Reason: Fever >100.4 F Acetaminophen (Tylenol 325mg Tab) 650 mg PO Q6 PRN PRN Reason: Pain, moderate (4-7) Last Admin: 04/14/18 20:49 Dose: 650 mg Albuterol/Ipratropium (Duoneb 3 Mg/0.5 Mg (3 Ml) Ud) 3 ml INH RQID [facility] Last Admin: 04/15/18 16:00 Dose: 3 ml Calcium Acetate (Phoslo) 1,334 mg PO WM [facility] Last Admin: 04/15/18 12:30 Dose: 1,334 mg Epoetin Charles (Procrit) 10,000 unit SC TTS [facility] Last Admin: 04/14/18 08:28 Dose: 10,000 unit Ergocalciferol (Drisdol 50,000 Intl Units Cap) 1 cap PO Q7D [facility] Last Admin: 04/10/18 08:59 Dose: 1 cap Finasteride (Proscar) 5 mg PO DAILY [facility] Last Admin: 04/15/18 08:55 Dose: 5 mg Fluticasone Propionate (Flonase) 1 spr [facility] DAILY PRN PRN Reason: Nasal congestion Guaifenesin (Mucinex La) 1,200 mg PO Q12 [facility] Last Admin: 04/15/18 15:40 Dose: Not Given Piperacillin Sod/Tazobactam (Sod 2.25 gm/ Sodium Chloride) 100 mls @ 100 mls/ hr IVPB Q12 [facility] PRN Reason: Protocol Stop: 04/18/18 10:16 Last Admin: 04/15/18 15:40 Dose: 100 mls/hr Metoprolol Succinate (Toprol Xl) 25 mg PO DAILY [facility] Last Admin: 04/15/18 12:29 Dose: 25 mg Pantoprazole Sodium (Protonix Ec Tab) 40 mg PO DAILY [facility] Last Admin: 04/15/18 08:57 Dose: 40 mg Tamsulosin HCl (Flomax) 0.4 mg PO QPM [facility] Last Admin: 04/14/18 18:29 Dose: Not Given Tobramycin/Dexamethasone (Tobradex 0.3%-0.1% Opht Oint) 1 appl OD Q8H [facility] Last Admin: 04/15/18 12:30 Dose: 1 applic Vitamin B Complex/Vit C/Folic Acid (Nephro-Jj) 1 tab PO DAILY [facility] Last Admin: 04/15/18 08:52 Dose: 1 tab - Labs Labs: 04/15/18 08:15 04/15/18 08:15 PT 16.2 Seconds (9.8-13.1) H 04/14/18 09:53 INR 1.5 04/14/18 09:53 APTT 29.7 Seconds (25.6-37.1) 04/14/18 09:53
[2018-04-15] MEDS: Atovaquone 750 mg/5 ml Susp UD PO SCH (18:45)
--- NOTE | 2018-04-15 19:39 | PN ---
Copied To: Kali Moran MD Attending MD: Kali Moran MD DATE: 04/15/2018 SUBJECTIVE: The patient denies chest pain. He is currently undergoing hemodialysis. PHYSICAL EXAMINATION VITAL SIGNS: Blood pressure 159/94, heart rate 113, temperature 97.8, and respirations 20. HEENT: Pale conjunctivae. CHEST: Right basilar crepitation. HEART: S1 and S2 regular. ABDOMEN: Soft. EXTREMITIES: 2+ pitting edema. LABORATORY DATA: Hemoglobin and hematocrit are 6.9 and 21.7, white count 11.9, and platelet count 72,000. SMA-7; sodium 139, potassium 3.6, chloride 108, CO2 of 22, glucose 67, BUN 43, and creatinine 5.1. Venous Doppler of the lower extremity, no evidence of DVT. Venous Doppler of the left upper extremity revealed complex lesion of left mid arm adjacent to the brachial vein measuring 1.9 x 3.2 x 12.1 cm likely infectious/inflammatory. ASSESSMENT: 1. 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 2. Right lower and middle lobe pneumonia. 3. Anemia. 4. Acute renal failure. 5. Thrombocytopenia. 6. Atrial fibrillation. RECOMMENDATIONS: Continue Mucinex LA at 1200 mg orally twice a day, PhosLo 1334 mg p.o. with each meal, Procrit 10,000 units subcutaneous TTS, Protonix 20 mg twice a day, Proscar 5 mg once a day, Toprol XL 25 mg once a day, and Zosyn 2.25 g intravenously every 12 hours. Albumin 200 g intravenously was given as a single dose today. Case was discussed with Dr. Calderon. The patient deserves to be observed in ICU and will be further evaluated by the cat swamper. Kali Moran MD
--- NOTE | 2018-04-15 19:54 | CP.PCM.CON ---
History of Present Illness - History of Present Illness History of Present Illness: 77 years male was admitted on 03/21/18 with dx of Anemia, New unset A Fib and Respiratory failure and renal failure I was called to help manage his antibiotic rx He is being treated for pneumonia and the possibility of autoimmune , granulomatous and or infectious causeds is being considered He is currently on atovaquone and zosyn PMH: HTN; BPH PSH: Appendectomy SH: Former smoker; No Illegal drug use; No Alcohol; Live alone FH: No family hx Review of Systems: Awake and alert, No headache, dizziness, No problems with vision, mild SOB, no chest pain, no palpitation nor abdominal pain. Pains at the right lower extremity. no urinary symptoms. Review of Systems - Review of Systems All systems: reviewed and no additional remarkable complaints except - Constitutional Constitutional: As Per HPI - EENT Eyes: absent: As Per HPI, Blind Spots, Blurred Vision, Change in Vision, Decreased Night Vision, Diplopia, Discharge, Dry Eye, Exophthalmos, Floaters, Irritation, Itchy Eyes, Loss of Peripheral Vision, Pain, Photophobia, Requires Corrective Lenses, Sees Flashes, Spots in Vision, Tunnel Vision, Other Visual Disturbances, Loss of Vision, Other Ears: absent: As Per HPI, Decreased Hearing, Ear Discharge, Ear Pain, Tinnitus, Abnormal Hearing, Disequilibrium, Dizziness, Other Nose/Mouth/Throat: absent: As Per HPI, Epistaxis, Nasal Congestion, Nasal Discharge, Nasal Obstruction, Nasal Trauma, Nose Pain, Post Nasal Drip, Sinus Pain, Sinus Pressure, Bleeding Gums, Change in Voice, Dental Pain, Dry Mouth, Dysphagia, Halitosis, Hoarsness, Lip Swelling, Mouth Lesions, Mouth Pain, Odynophagia, Sore Throat, Throat Swelling, Tongue Swelling, Facial Pain, Neck Pain, Neck Mass, Other - Cardiovascular Cardiovascular: As Per HPI - Respiratory Respiratory: As Per HPI, Cough, Dyspnea. absent: Hemoptysis - Gastrointestinal Gastrointestinal: absent: As Per HPI, Abdominal Pain, Belching, Bloating, Change in Bowel Habits, Change in Stool Character, Coffee Ground Emesis, Constipation, Cramping, Diarrhea, Dyspepsia, Dysphagia, Early Satiety, Excessive Flatus, Fecal Incontinence, Heartburn, Hematemesis, Hematochezia, Loose Stools, Melena, Nausea, Odynophagia, Temesmus, Vomiting, Other - Genitourinary Genitourinary: absent: As Per HPI, Change in Urinary Stream, Difficulty Urinating, Dysuria, Flank Pain, Hematuria, Pyuria, Nocturia, Urinary Incontinence, Urinary Frequency, Urinary Hesitance, Urinary Urgency, Voiding Freq/Small Amts, Freq UTI, Hx Renal/Bladder Calculi, Hx /Renal Surgery, Bladder Distension, Other - Musculoskeletal Musculoskeletal: absent: As Per HPI, Abnormal Gait, Arthralgias, Atrophy, Back Pain, Deformity, Joint Swelling, Limited Range of Motion, Loss of Height, Muscle Cramps, Muscle Weakness, Myalgias, Neck Pain, Numbness, Radiating Pain into Limb, Stiffness, Tingling, Other - Integumentary Integumentary: absent: As Per HPI, Acne, Alopecia, Bleeding Lesions, Change in Hair, Change in Nails, Change in Pigmentation, Changing Lesions, Dry Skin, Erythema, Furuncle, Hirsutism, Lesions, New Lesions, Non-Healing Lesions, Photosensitivity, Pruritus, Rash, Skin Pain, Skin Ulcer, Sores, Striae, Swelling , Unusual Bruising, Wounds, Jaundice, Other - Neurological Neurological: absent: As Per HPI, Abnormal Gait, Abnormal Hearing, Abnormal Movements, Abnormal Speech, Behavioral Changes, Burning Sensations, Confusion, Convulsions, Disequilibrium, Dizziness, Numbness, Focal Weakness, Frequent Falls , Headaches, Lack of Coordination, Loss of Vision, Memory Loss, Paresthesias, Radicular Pain, Restless Legs, Sensory Deficit, Syncope, Tingling, Tremor, Vertigo, Weakness, Other Visual Disturbances, Other - Psychiatric Psychiatric: absent: As Per HPI, Abnormal Sleep Pattern, Anhedonia, Anxiety, Auditory Hallucinations, Behavioral Changes, Change in Appetite, Change in Libido, Confusion, Depression, Difficulty Concentrating, Hallucinations, Homicidal Ideation, Hopelessness, Irritability, Memory Loss, Mood Swings, Panic Attacks, Paranoia, Suicidal Ideation, Visual Hallucinations, Tactile Hallucinations, Other - Endocrine Endocrine: absent: As Per HPI, Change in Body Appearance, Change in Libido, Cold Intolorance, Deepening of Voice, Excessive Sweating, Fatigue, Flushing, Heat Intolorance, Increase in Ring/Shoe/Hat Size, Palpitations, Polydipsia, Polyphagia, Polyuria, Other - Hematologic/Lymphatic Hematologic: absent: As Per HPI, Easy Bleeding, Easy Bruising, Lymphadenopathy, Other Past Patient History - Infectious Disease Hx of Infectious Diseases: None - Past Medical History & Family History Past Medical History?: Yes Past Family History: Reviewed and not pertinent - Past Social History Smoking Status: Former Smoker Alcohol: None Drugs: Denies - CARDIAC Hx Hypertension: No - PULMONARY Hx Respiratory Disorders: No - NEUROLOGICAL Hx Neurological Disorder: No - HEENT Hx HEENT Problems: Yes - RENAL Hx Chronic Kidney Disease: No - ENDOCRINE/METABOLIC Hx Endocrine Disorders: No - HEMATOLOGICAL/ONCOLOGICAL Hx Blood Disorders: Yes - INTEGUMENTARY Hx Dermatological Problems: No - MUSCULOSKELETAL/RHEUMATOLOGICAL Hx Musculoskeletal Disorders: Yes - GASTROINTESTINAL Hx Gastrointestinal Disorders: No - GENITOURINARY/GYNECOLOGICAL Hx Genitourinary Disorders: Yes (RETENTION BUTLER TO SGD) - PSYCHIATRIC Hx Psychophysiologic Disorder: No - SURGICAL HISTORY Hx Appendectomy: Yes - ANESTHESIA Hx Anesthesia: Yes Hx Anesthesia Reactions: No Hx Malignant Hyperthermia: No Meds Allergies/Adverse Reactions: Allergies Allergy/AdvReac Type Severity Reaction Status Date / Time No Known Allergies Allergy Verified 01/02/14 08:07 - Medications Medications: Current Medications Acetaminophen (Tylenol 325mg Tab) 650 mg PO Q6H PRN PRN Reason: Fever >100.4 F Acetaminophen (Tylenol 325mg Tab) 650 mg PO Q6 PRN PRN Reason: Pain, moderate (4-7) Last Admin: 04/14/18 20:49 Dose: 650 mg Albuterol/Ipratropium (Duoneb 3 Mg/0.5 Mg (3 Ml) Ud) 3 ml INH RQID [facility] Last Admin: 04/15/18 16:00 Dose: 3 ml Atovaquone (Mepron) 750 mg PO BIDWM [facility] PRN Reason: Protocol Calcium Acetate (Phoslo) 1,334 mg PO WM [facility] Last Admin: 04/15/18 12:30 Dose: 1,334 mg Epoetin Charles (Procrit) 14,000 unit SC TTS [facility] Ergocalciferol (Drisdol 50,000 Intl Units Cap) 1 cap PO Q7D [facility] Last Admin: 04/10/18 08:59 Dose: 1 cap Finasteride (Proscar) 5 mg PO DAILY [facility] Last Admin: 04/15/18 08:55 Dose: 5 mg Fluticasone Propionate (Flonase) 1 spr [facility] DAILY PRN PRN Reason: Nasal congestion Guaifenesin (Mucinex La) 1,200 mg PO Q12 [facility] Last Admin: 04/15/18 15:40 Dose: Not Given Piperacillin Sod/Tazobactam (Sod 2.25 gm/ Sodium Chloride) 100 mls @ 100 mls/ hr IVPB Q12 [facility] PRN Reason: Protocol Stop: 04/18/18 10:16 Last Admin: 04/15/18 15:40 Dose: 100 mls/hr Metoprolol Succinate (Toprol Xl) 25 mg PO DAILY [facility] Last Admin: 04/15/18 12:29 Dose: 25 mg Pantoprazole Sodium (Protonix Ec Tab) 40 mg PO DAILY [facility] Last Admin: 04/15/18 08:57 Dose: 40 mg Prednisone (Prednisone Tab) 60 mg PO DAILY [facility] Tamsulosin HCl (Flomax) 0.4 mg PO QPM [facility] Last Admin: 04/14/18 18:29 Dose: Not Given Tobramycin/Dexamethasone (Tobradex 0.3%-0.1% Opht Oint) 1 appl OD Q8H [facility] Last Admin: 04/15/18 12:30 Dose: 1 applic Vitamin B Complex/Vit C/Folic Acid (Nephro-Jj) 1 tab PO DAILY [facility] Last Admin: 04/15/18 08:52 Dose: 1 tab Physical Exam - Constitutional Appears: Non-toxic, No Acute Distress, Confused, Chronically Ill - Head Exam Head Exam: ATRAUMATIC, NORMAL INSPECTION, NORMOCEPHALIC - Eye Exam Eye Exam: PERRL. absent: Scleral icterus - ENT Exam ENT Exam: Mucous Membranes Dry, Normal External Ear Exam, Normal Oropharynx - Neck Exam Neck exam: Negative for: Lymphadenopathy - Respiratory Exam Respiratory Exam: Decreased Breath Sounds, Rhonchi - Cardiovascular Exam Cardiovascular Exam: REGULAR RHYTHM, +S1, +S2 - GI/Abdominal Exam GI & Abdominal Exam: Diminished Bowel Sounds, Soft. absent: Tenderness - Rectal Exam Rectal Exam: Deferred - Exam Exam: NORMAL INSPECTION - Extremities Exam Extremities exam: Positive for: pedal edema, pedal pulses present. Negative for : calf tenderness, tenderness - Back Exam Back exam: absent: CVA tenderness (L), CVA tenderness (R) - Neurological Exam Neurological exam: Alert, Altered, CN II-XII Intact - Psychiatric Exam Psychiatric exam: Depressed Results - Vital Signs Recent Vital Signs: Last Vital Signs Temp 98.8 F 04/15/18 19:46 Pulse 106 H 04/15/18 19:46 Resp 18 04/15/18 19:46 BP 133/80 04/15/18 19:46 Pulse Ox 100 04/15/18 19:46 - Labs Result Diagrams: 04/15/18 08:15 04/15/18 08:15 Labs: Laboratory Results - last 24 hr 04/15/18 04/15/18 04/15/18 08:15 08:15 11:50 WBC 11.9 H RBC 2.47 L Hgb 6.9 L Hct 21.7 L MCV 88.0 MCH 27.8 MCHC 31.6 L RDW 33.5 H Plt Count 72 L D MPV 7.7 Neut % (Auto) 88.7 H Lymph % (Auto) 2.8 L [place] % (Auto) 5.5 Eos % (Auto) 2.7 Baso % (Auto) 0.3 Neut # (Auto) 10.5 H Lymph # (Auto) 0.3 L [place] # (Auto) 0.7 Eos # (Auto) 0.3 Baso # (Auto) 0.0 Neutrophils % (Manual) 86 H Band Neutrophils % 1 Lymphocytes % (Manual) 8 L Monocytes % (Manual) 2 Eosinophils % (Manual) 3 Platelet Estimate Decreased L Poikilocytosis (manual Slight Anisocytosis (manual) Slight Sodium 139 Potassium 3.6 Chloride 108 H Carbon Dioxide 22 Anion Gap 13 BUN 43 H Creatinine 5.1 H Est GFR ( Amer) 13 Est GFR (Non-Af Amer) 11 Random Glucose 67 L Calcium 8.0 L Total Bilirubin 1.0 AST 11 L ALT 21 Alkaline Phosphatase 22 L Total Protein 4.2 L Albumin 2.6 L Globulin 1.6 L Albumin/Globulin Ratio 1.6 Blood Type O POSITIVE Antibody Screen Negative Crossmatch See Detail BBK History Checked Patient has bt Assessment & Plan (1) A-fib Status: Acute (2) Acute on chronic renal failure Status: Acute Priority: High (3) Altered mental status Status: Acute Priority: High (4) Anemia Status: Acute (5) Atrial enlargement, bilateral Status: Acute (6) Enlarged RV (right ventricle) Status: Acute (7) Pulmonary infiltrate Status: Acute Priority: High (8) Pulmonary nodules/lesions, multiple Status: Acute (9) UTI (urinary tract infection) Status: Acute - Assessment and Plan (Free Text) Assessment: urine c/s + e coli iv antibiotic in progress
[2018-04-16] MEDS: Tobramycin/Dexamethasone OPHT OINT OD SCH (05:44)
--- NOTE | 2018-04-16 06:09 | CP.PCM.PN ---
Subjective - Date & Time of Evaluation Date of Evaluation: 04/15/18 Time of Evaluation: 20:00 - Subjective Subjective: Seen and examined at the bed. Worsening Dyspnea; Upper Exatremities and Leg swelling. Tachycardia with irregular Pulse on the Telemonitor. S/P Steroid Pulse , a dose of Rituximab and Plamapherseis. Despite RX for RPGN, the Patient progressed to Acute Renal Failure, and started on HD with Right chest Permacath. Denies fever or chills. 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 Will Continue to RX and Monitor in Telemetry. Objective - Vital Signs/Intake and Output Vital Signs (last 24 hours): Temp Pulse Resp BP Pulse Ox 98 F 92 H 19 138/83 100 04/16/18 05:30 04/16/18 05:30 04/16/18 05:30 04/16/18 05:30 04/16/18 05:30 Intake and Output: 04/15/18 04/16/18 18:59 06:59 Intake Total 10 680 Balance 10 680 - Medications Medications: Current Medications Acetaminophen (Tylenol 325mg Tab) 650 mg PO Q6H PRN PRN Reason: Fever >100.4 F Acetaminophen (Tylenol 325mg Tab) 650 mg PO Q6 PRN PRN Reason: Pain, moderate (4-7) Last Admin: 04/14/18 20:49 Dose: 650 mg Albuterol/Ipratropium (Duoneb 3 Mg/0.5 Mg (3 Ml) Ud) 3 ml INH RQID [facility] Last Admin: 04/15/18 20:02 Dose: 3 ml Atovaquone (Mepron) 750 mg PO BIDWM [facility] PRN Reason: Protocol Last Admin: 04/15/18 18:45 Dose: Not Given Calcium Acetate (Phoslo) 1,334 mg PO WM [facility] Last Admin: 04/15/18 18:45 Dose: Not Given Epoetin Charles (Procrit) 14,000 unit SC TTS [facility] Ergocalciferol (Drisdol 50,000 Intl Units Cap) 1 cap PO Q7D [facility] Last Admin: 04/10/18 08:59 Dose: 1 cap Finasteride (Proscar) 5 mg PO DAILY [facility] Last Admin: 04/15/18 08:55 Dose: 5 mg Fluticasone Propionate (Flonase) 1 spr [place] DAILY PRN PRN Reason: Nasal congestion Guaifenesin (Mucinex La) 1,200 mg PO Q12 [facility] Last Admin: 04/15/18 21:08 Dose: Not Given Piperacillin Sod/Tazobactam (Sod 2.25 gm/ Sodium Chloride) 100 mls @ 100 mls/ hr IVPB Q12 [facility] PRN Reason: Protocol Stop: 04/18/18 10:16 Last Admin: 04/16/18 04:45 Dose: 100 mls/hr Metoprolol Succinate (Toprol Xl) 25 mg PO DAILY [facility] Last Admin: 04/15/18 12:29 Dose: 25 mg Pantoprazole Sodium (Protonix Ec Tab) 40 mg PO DAILY [facility] Last Admin: 04/15/18 08:57 Dose: 40 mg Prednisone (Prednisone Tab) 60 mg PO DAILY [facility] Last Admin: 04/15/18 18:45 Dose: Not Given Tamsulosin HCl (Flomax) 0.4 mg PO QPM [facility] Last Admin: 04/15/18 18:45 Dose: Not Given Tobramycin/Dexamethasone (Tobradex 0.3%-0.1% Opht Oint) 1 appl OD Q8H [facility] Last Admin: 04/16/18 05:44 Dose: Not Given Vitamin B Complex/Vit C/Folic Acid (Nephro-Jj) 1 tab PO DAILY [facility] Last Admin: 04/15/18 08:52 Dose: 1 tab - Labs Labs: 04/15/18 08:15 04/15/18 08:15 PT 16.2 Seconds (9.8-13.1) H 04/14/18 09:53 INR 1.5 04/14/18 09:53 APTT 29.7 Seconds (25.6-37.1) 04/14/18 09:53 - Additional Findings Additional findings: 04/14/2018 PROCEDURE: Left Upper Extremity Venous Doppler HISTORY: hematoma COMPARISON: None available. TECHNIQUE: Left upper extremity deep veins, including the lower internal jugular, subclavian, axillary and brachial veins, were evaluated flow, compressibility and respiratory phasicity. FINDINGS: Normal flow, compressibility and respiratory phasicity was observed in the the left upper extremity deep veins. IMPRESSION: No evidence of deep venous thrombosis. Complex collection left mid arm adjacent to the brachial vein measuring 1.9 x 3.2 x 12.1 cm. The findings are likely infectious/inflammatory. There is cutaneous and subcutaneous edema associated with this likely abscess. - Lower Extremity Venous Doppler: No DVT Assessment and Plan (1) Altered mental status Assessment & Plan: Improved Continue to Monitor Status: Resolved (2) Severe anemia S/P Multiple PRBCs Transfuion, Hgb 9.0mg/dl Assessment & Plan: Iron Supplement and Procrit Monitor H/H Status: Acute (3) Hyperkalemia-Resolved Assessment & Plan: Monitor Status: Resolved (4) Acute on chronic renal failure, S/P Biopsy, Gross Hematuria S/p Cystoscopy- Resolved (Received Steroid Pulse, Rituximab, and Plasmapheresis) Currently on HD Status: Acute Monitor BMP Continue HD Nephro Added Prednisone and Atovaquone for PCP Prophylaxois (5) New onset A-fib with RVR Continue Current Care Status: 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 Perkins to cover me Until 05/02/2018. Status: Acute
[2018-04-16] MEDS: Albuterol-Ipratrop 3 mg / 0.5 (3 ml) UD INH SCH ×4 (07:53→19:16)
[2018-04-16] MEDS: Atovaquone 750 mg/5 ml Susp UD PO SCH ×3 (08:16→18:20)
[2018-04-16] MEDS: guaiFENesin 600 mg ER Tab PO SCH ×3 (08:17→21:38)
[2018-04-16] MEDS: Pantoprazole 40 mg EC Tab PO SCH (08:18)
[2018-04-16] MEDS: Multivitamin Vitamin B Complex (Nephro-Vite) Tab PO SCH (08:22)
--- NOTE | 2018-04-16 09:13 | CP.PCM.CON ---
History of Present Illness - History of Present Illness History of Present Illness: General Surgery - Dr. De La Rosa 77M admitted w/ Anemia, New onset A Fib, Respiratory failure and Renal failure, being treated for possible Pneumonia. Surgery was consulted for questionable abscess in the Left antecubital fossa. Pt denies any pain or swelling to the area but complains of mild discomfort when palpated. He has diffuse ecchymosis within the antecubital fossa which he states has been present for over a week now. Per nursing pt had a picc line that he ripped out several weeks ago that caused this. BP cuff was removed from the affected arm as this may have been contributing to his discomfort. Pt denies any Fevers/Chills. Review of Systems - Review of Systems All systems: reviewed and no additional remarkable complaints except (as per HPI ) Past Patient History - Infectious Disease Hx of Infectious Diseases: None - Past Medical History & Family History Past Medical History?: Yes Past Family History: Reviewed and not pertinent - Past Social History Smoking Status: Former Smoker Alcohol: None Drugs: Denies - CARDIAC Hx Hypertension: No - PULMONARY Hx Respiratory Disorders: No - NEUROLOGICAL Hx Neurological Disorder: No - HEENT Hx HEENT Problems: Yes - RENAL Hx Chronic Kidney Disease: No - ENDOCRINE/METABOLIC Hx Endocrine Disorders: No - HEMATOLOGICAL/ONCOLOGICAL Hx Blood Disorders: Yes - INTEGUMENTARY Hx Dermatological Problems: No - MUSCULOSKELETAL/RHEUMATOLOGICAL Hx Musculoskeletal Disorders: Yes - GASTROINTESTINAL Hx Gastrointestinal Disorders: No - GENITOURINARY/GYNECOLOGICAL Hx Genitourinary Disorders: Yes (RETENTION BUTELR TO SGD) - PSYCHIATRIC Hx Psychophysiologic Disorder: No - SURGICAL HISTORY Hx Appendectomy: Yes - ANESTHESIA Hx Anesthesia: Yes Hx Anesthesia Reactions: No Hx Malignant Hyperthermia: No Meds Allergies/Adverse Reactions: Allergies Allergy/AdvReac Type Severity Reaction Status Date / Time No Known Allergies Allergy Verified 01/02/14 08:07 - Medications Medications: Current Medications Acetaminophen (Tylenol 325mg Tab) 650 mg PO Q6H PRN PRN Reason: Fever >100.4 F Acetaminophen (Tylenol 325mg Tab) 650 mg PO Q6 PRN PRN Reason: Pain, moderate (4-7) Last Admin: 04/14/18 20:49 Dose: 650 mg Albuterol/Ipratropium (Duoneb 3 Mg/0.5 Mg (3 Ml) Ud) 3 ml INH RQID [facility] Last Admin: 04/16/18 07:53 Dose: 3 ml Atovaquone (Mepron) 750 mg PO BIDWM [facility] PRN Reason: Protocol Last Admin: 04/16/18 08:16 Dose: 750 mg Calcium Acetate (Phoslo) 1,334 mg PO WM [facility] Last Admin: 04/16/18 08:17 Dose: 1,334 mg Epoetin Charles (Procrit) 14,000 unit SC TTS [facility] Ergocalciferol (Drisdol 50,000 Intl Units Cap) 1 cap PO Q7D [facility] Last Admin: 04/10/18 08:59 Dose: 1 cap Finasteride (Proscar) 5 mg PO DAILY [facility] Last Admin: 04/16/18 08:18 Dose: 5 mg Fluticasone Propionate (Flonase) 1 spr [place] DAILY PRN PRN Reason: Nasal congestion Guaifenesin (Mucinex La) 1,200 mg PO Q12 [facility] Last Admin: 04/16/18 08:17 Dose: 1,200 mg Piperacillin Sod/Tazobactam (Sod 2.25 gm/ Sodium Chloride) 100 mls @ 100 mls/ hr IVPB Q12 [facility] PRN Reason: Protocol Stop: 04/18/18 10:16 Last Admin: 04/16/18 04:45 Dose: 100 mls/hr Vancomycin HCl 1 gm/ Sodium (Chloride) 250 mls @ 166.667 mls/hr IVPB ONCE ONE PRN Reason: Protocol Stop: 04/16/18 09:29 Last Admin: 04/16/18 08:18 Dose: 166.667 mls/hr Metoprolol Succinate (Toprol Xl) 25 mg PO DAILY [facility] Last Admin: 04/15/18 12:29 Dose: 25 mg Pantoprazole Sodium (Protonix Ec Tab) 40 mg PO DAILY [facility] Last Admin: 04/16/18 08:18 Dose: 40 mg Prednisone (Prednisone Tab) 60 mg PO DAILY [facility] Last Admin: 04/16/18 08:17 Dose: 60 mg Tamsulosin HCl (Flomax) 0.4 mg PO QPM [facility] Last Admin: 04/15/18 18:45 Dose: Not Given Vitamin B Complex/Vit C/Folic Acid (Nephro-Jj) 1 tab PO DAILY [facility] Last Admin: 04/16/18 08:22 Dose: 1 tab Physical Exam - Constitutional Appears: No Acute Distress - Head Exam Head Exam: ATRAUMATIC, NORMAL INSPECTION, NORMOCEPHALIC - Eye Exam Eye Exam: Normal appearance - Respiratory Exam Respiratory Exam: NORMAL BREATHING PATTERN. absent: Respiratory Distress - Extremities Exam Additional comments: L antecubital fossa w/ diffuse echhymosis extending from the mid forearm to the mid upper arm, mildly tender to palpation, No induration, No Fluctuance, No signs of any abscess appreciated - Neurological Exam Neurological exam: Alert, Oriented x3 - Psychiatric Exam Psychiatric exam: Normal Affect, Normal Mood - Skin Skin Exam: Dry, Intact Results - Vital Signs Recent Vital Signs: Last Vital Signs Temp 97.9 F 04/16/18 08:00 Pulse 92 H 04/16/18 08:00 Resp 20 04/16/18 08:00 BP 131/82 04/16/18 08:00 Pulse Ox 100 04/16/18 08:00 - Labs Result Diagrams: 04/15/18 08:15 04/15/18 08:15 Labs: Laboratory Results - last 24 hr 04/15/18 04/15/18 04/15/18 08:15 08:15 11:50 WBC 11.9 H RBC 2.47 L Hgb 6.9 L Hct 21.7 L MCV 88.0 MCH 27.8 MCHC 31.6 L RDW 33.5 H Plt Count 72 L D MPV 7.7 Neut % (Auto) 88.7 H Lymph % (Auto) 2.8 L [place] % (Auto) 5.5 Eos % (Auto) 2.7 Baso % (Auto) 0.3 Neut # (Auto) 10.5 H Lymph # (Auto) 0.3 L [place] # (Auto) 0.7 Eos # (Auto) 0.3 Baso # (Auto) 0.0 Neutrophils % (Manual) 86 H Band Neutrophils % 1 Lymphocytes % (Manual) 8 L Monocytes % (Manual) 2 Eosinophils % (Manual) 3 Platelet Estimate Decreased L Poikilocytosis (manual Slight Anisocytosis (manual) Slight Sodium 139 Potassium 3.6 Chloride 108 H Carbon Dioxide 22 Anion Gap 13 BUN 43 H Creatinine 5.1 H Est GFR ( Amer) 13 Est GFR (Non-Af Amer) 11 Random Glucose 67 L Calcium 8.0 L Total Bilirubin 1.0 AST 11 L ALT 21 Alkaline Phosphatase 22 L Total Protein 4.2 L Albumin 2.6 L Globulin 1.6 L Albumin/Globulin Ratio 1.6 Blood Type O POSITIVE Antibody Screen Negative Crossmatch See Detail BBK History Checked Patient has bt Assessment & Plan - Assessment and Plan (Free Text) Assessment: 77M admitted w/ possible pneumonia and acute renal failure, surgery consulted for Left arm fluid seen on U/S -U/S reviewed, small collection likely a hematoma -Left arm with diffuse ecchymosis -Recommend warm compresses or Ice applied to the affected area PRN -No surgical intervention -Hematoma will resolve slowly over time -Surgery will sign off DW Dr. Rj Livingston, PGY4
[2018-04-16 09:43] LABS: BASO # 0.1 K/uL (0.0-0.2); BASO % 0.5 % (0.0-2.0); EOS # 0.4 K/uL (0.0-0.7); EOS % 3.3 % (0.0-4.0); HEMOGLOBIN 8.7 g/dL (12.0-18.0); LYMPH # 0.5 K/uL (1.0-4.3); LYMPH % 4.4 % (20.0-40.0); MEAN CELL VOLUME 86.2 fl (80.0-94.0); MEAN CORPUSCULAR HEMOGLOBIN 28.6 pg (27.0-31.0); MEAN CORPUSCULAR HGB CONC 33.2 g/dL (33.0-37.0); MEAN PLATELET VOLUME 7.3 fl (7.2-11.7); MONO # 0.8 K/uL (0.0-0.8); MONO % 7.1 % (0.0-10.0); NEUT # 9.1 K/uL (1.8-7.0); NEUT % 84.7 % (50.0-75.0); RBC 3.04 Mil/uL (4.40-5.90); RED CELL DISTRIBUTION WIDTH 28.3 % (11.5-14.5); WHITE BLOOD COUNT 10.7 K/uL (4.8-10.8)
[2018-04-16 10:00] LABS: ALB/GLOB RATIO 1.3 (1.0-2.1); ALBUMIN 2.6 g/dL (3.5-5.0); CALCIUM 7.9 mg/dL (8.4-10.2)
[2018-04-16] MEDS ORDERED: Epoetin Alfa 20000 UNIT/ML Inj SC SCH (10:00)
--- NOTE | 2018-04-16 11:40 | CP.PCM.PN ---
Subjective - Date & Time of Evaluation Date of Evaluation: 04/16/18 Time of Evaluation: 11:37 - Subjective Subjective: Seen non rounds in AM. Presently on hemodialysis. Relates feeling 'okay'. No CXR has been done over the last two days; timing with HD. On exam he breathes comfortably, takes deep breath w/o cough. No dullness present on percussion of the anterior chest wall. Breath sounds are present bilaterally, equally, diminished. No rales or wheezes are heard on auscultation today. Trace dependant edema, no cyanosis. CXR to be done today after finishing HD. Objective - Vital Signs/Intake and Output Vital Signs (last 24 hours): Temp Pulse Resp BP Pulse Ox 97.9 F 92 H 20 131/82 100 04/16/18 08:00 04/16/18 09:00 04/16/18 08:00 04/16/18 08:00 04/16/18 08:00 Intake and Output: 04/15/18 04/16/18 23:59 11:59 Intake Total 345 345 Balance 345 345 - Medications Medications: Current Medications Acetaminophen (Tylenol 325mg Tab) 650 mg PO Q6H PRN PRN Reason: Fever >100.4 F Acetaminophen (Tylenol 325mg Tab) 650 mg PO Q6 PRN PRN Reason: Pain, moderate (4-7) Last Admin: 04/14/18 20:49 Dose: 650 mg Albuterol/Ipratropium (Duoneb 3 Mg/0.5 Mg (3 Ml) Ud) 3 ml INH RQID [facility] Last Admin: 04/16/18 07:53 Dose: 3 ml Atovaquone (Mepron) 750 mg PO BIDWM [facility] PRN Reason: Protocol Last Admin: 04/16/18 08:16 Dose: 750 mg Calcium Acetate (Phoslo) 1,334 mg PO WM [facility] Last Admin: 04/16/18 08:17 Dose: 1,334 mg Epoetin Charles (Procrit) 14,000 unit SC TTS [facility] Last Admin: 04/16/18 10:41 Dose: 14,000 unit Ergocalciferol (Drisdol 50,000 Intl Units Cap) 1 cap PO Q7D [facility] Last Admin: 04/10/18 08:59 Dose: 1 cap Finasteride (Proscar) 5 mg PO DAILY [facility] Last Admin: 04/16/18 08:18 Dose: 5 mg Fluticasone Propionate (Flonase) 1 spr [facility] DAILY PRN PRN Reason: Nasal congestion Guaifenesin (Mucinex La) 1,200 mg PO Q12 [facility] Last Admin: 04/16/18 08:17 Dose: 1,200 mg Metoprolol Succinate (Toprol Xl) 25 mg PO DAILY [facility] Last Admin: 04/15/18 12:29 Dose: 25 mg Pantoprazole Sodium (Protonix Ec Tab) 40 mg PO DAILY [facility] Last Admin: 04/16/18 08:18 Dose: 40 mg Prednisone (Prednisone Tab) 60 mg PO DAILY [facility] Last Admin: 04/16/18 08:17 Dose: 60 mg Tamsulosin HCl (Flomax) 0.4 mg PO QPM [facility] Last Admin: 04/15/18 18:45 Dose: Not Given Vitamin B Complex/Vit C/Folic Acid (Nephro-Jj) 1 tab PO DAILY [facility] Last Admin: 04/16/18 08:22 Dose: 1 tab - Labs Labs: 04/16/18 08:54 04/16/18 08:54 PT 16.2 Seconds (9.8-13.1) H 04/14/18 09:53 INR 1.5 04/14/18 09:53 APTT 29.7 Seconds (25.6-37.1) 04/14/18 09:53 Assessment and Plan (1) Pulmonary infiltrate Status: Acute
[2018-04-16] MEDS: Metoprolol Succinate 25 mg XL Tab PO SCH ×2 (12:22→13:09)
--- NOTE | 2018-04-16 13:20 | CP.PCM.PN ---
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 Continue prednisone 60 mg/day. PCP prophylaxis with atovaquone added Hypertension control with meds as ordered. Patient not on ACEI/ARB due to QUINT[facility] Monitor Input/Output, daily weights and renal function with basic metabolic panel continue with epogen continue with weekly Vit D holding na hco3 prbc per primary team Subjective: seen on hd Physical Examination: General Appearance: Comfortable, in no acute respiratory distress, co-operative . ill appearing Vitals reviewed and noted as below Head; Atraumatic, normocephalic ENT: no ulcers no thrush. Tongue is midline. Oropharynx: no rash or ulcers. EYES: Pupils are equal, round and reactive to light accommodation. Eye muscles and extraocular movement intact. Sclera is anicteric. Neck; supple no lymphadenopathy, no thyromegaly or bruit Lungs: Normal respiratory rate/effort. Breath sounds bilateral with rales Heart: Normal rate. s1s2 normal. No rub or gallop. Extremities: 2+ edema. No varicose veins Neurological: Patient is alert, awake and oriented to person, place and time. No focal deficit. Strength bilateral appropriate and equal Skin: Warm and dry. Normal turgor. No rash. Palpitation: Normal elasticity for age Abdomen: Abdomen is soft. Bowel sounds +. There is no abdominal tenderness, no guarding/rigidity no organomegaly Psych: lackl insight and normal affect/mood MSK: no joint tenderness or swelling. Digits and nails normal, no deformity : kidney or bladder not palpable Labs/imaging reviewed. Past medical history, past surgical history, family history, social history, allergy reviewed and noted as below Family hx: no hx of CKD. Rest non-contributory Objective - Vital Signs/Intake and Output Vital Signs (last 24 hours): Temp Pulse Resp BP Pulse Ox 97.6 F 120 H 16 125/84 95 04/16/18 12:00 04/16/18 13:09 04/16/18 12:00 04/16/18 13:09 04/16/18 12:00 Intake and Output: 04/16/18 04/16/18 06:59 18:59 Intake Total 680 Balance 680 - Medications Medications: Current Medications Acetaminophen (Tylenol 325mg Tab) 650 mg PO Q6H PRN PRN Reason: Fever >100.4 F Acetaminophen (Tylenol 325mg Tab) 650 mg PO Q6 PRN PRN Reason: Pain, moderate (4-7) Last Admin: 04/14/18 20:49 Dose: 650 mg Albuterol/Ipratropium (Duoneb 3 Mg/0.5 Mg (3 Ml) Ud) 3 ml INH RQID [facility] Last Admin: 04/16/18 11:35 Dose: 3 ml Atovaquone (Mepron) 750 mg PO BIDWM [facility] PRN Reason: Protocol Last Admin: 04/16/18 08:16 Dose: Not Given Calcium Acetate (Phoslo) 1,334 mg PO WM [facility] Last Admin: 04/16/18 12:22 Dose: Not Given Epoetin Charles (Procrit) 14,000 unit SC TTS [facility] Last Admin: 04/16/18 10:41 Dose: 14,000 unit Ergocalciferol (Drisdol 50,000 Intl Units Cap) 1 cap PO Q7D [facility] Last Admin: 04/10/18 08:59 Dose: 1 cap Finasteride (Proscar) 5 mg PO DAILY [facility] Last Admin: 04/16/18 08:18 Dose: 5 mg Fluticasone Propionate (Flonase) 1 spr [facility] DAILY PRN PRN Reason: Nasal congestion Guaifenesin (Mucinex La) 1,200 mg PO Q12 [facility] Last Admin: 04/16/18 08:17 Dose: Not Given Metoprolol Succinate (Toprol Xl) 25 mg PO DAILY [facility] Last Admin: 04/16/18 13:09 Dose: 25 mg Pantoprazole Sodium (Protonix Ec Tab) 40 mg PO DAILY [facility] Last Admin: 04/16/18 08:18 Dose: 40 mg Prednisone (Prednisone Tab) 60 mg PO DAILY [facility] Last Admin: 04/16/18 08:17 Dose: 60 mg Tamsulosin HCl (Flomax) 0.4 mg PO QPM [facility] Last Admin: 04/15/18 18:45 Dose: Not Given Vitamin B Complex/Vit C/Folic Acid (Nephro-Jj) 1 tab PO DAILY [facility] Last Admin: 04/16/18 08:22 Dose: 1 tab - Labs Labs: 04/16/18 08:54 04/16/18 08:54 PT 16.2 Seconds (9.8-13.1) H 04/14/18 09:53 INR 1.5 04/14/18 09:53 APTT 29.7 Seconds (25.6-37.1) 04/14/18 09:53
[2018-04-16] MEDS ORDERED: Albumin Human 5% (12.5 gm/250 ml) IV ONE (16:00)
--- NOTE | 2018-04-16 16:52 | RAD ---
Date of service: 04/16/2018 HISTORY: pulmonary infiltrate COMPARISON: 04/13/2018 FINDINGS: LUNGS: Improving right mid and lower lung opacity consistent with resolving pneumonia. No left-sided opacity. PLEURA: No definite pleural effusion. No pneumothorax. CARDIOVASCULAR: Normal heart size. Right central venous catheter, possibly dialysis catheter. OSSEOUS STRUCTURES: No significant abnormalities. VISUALIZED UPPER ABDOMEN: Normal. OTHER FINDINGS: None. IMPRESSION: Improving right mid and lower pulmonary infiltrate.
--- NOTE | 2018-04-16 19:47 | PN ---
Copied To: Kali Moran MD Attending MD: Kali Moran MD DATE: 04/16/2018 SUBJECTIVE: The patient underwent hemodialysis today. He denies chest pain. He has poor appetite. He is still experiencing chronic hematuria. PHYSICAL EXAMINATION: VITAL SIGNS: Blood pressure 125/84, heart rate 101, temperature 97.6, respirations 16. HEENT: Pale conjunctivae. CHEST: Absent breast breath sound over the right base. HEART: S1 and S2 regular. ABDOMEN: Soft. EXTREMITIES: With 2+ pitting edema and tender edematous swelling of the inner aspect of the left arm. LABORATORY DATA: Hemoglobin and hematocrit 8.7 and 26.2. White count 10.7, platelet count 77,000. Today's SMA-7; sodium 139, potassium 3.6, chloride 104, CO2 of 27, glucose 92, BUN 28, creatinine 3.9. Yesterday's chest x-ray revealed improvement in the right hilar infiltrate. Significant left hilar infiltrate is noted. ASSESSMENT: 1. with necrotizing glomerulonephritis and angiitis. It is worth noting that yesterday's dictated note stated cholangitis instead of angiitis, which is an error in rn registry. 2. Improving right-sided pneumonia. 3. Thrombocytopenia. 4. Chronic atrial fibrillation. 5. Left arm cellulitis. 6. Anemia. RECOMMENDATIONS: Continue Toprol-XL 25 mg once a day, Protonix 20 mg p.o. once a day, Proscar 5 mg once a day, Procrit 14,000 units subcutaneously prednisone at 60 mg once a day, Nephro-Jj one tablet daily, Flomax 0.4 mg once a day, albuterol inhaler four times a day. The patient is not a suitable candidate for anticoagulation. Kali Moran MD
--- NOTE | 2018-04-16 21:06 | CP.PCM.PN ---
Subjective - Date & Time of Evaluation Date of Evaluation: 04/13/18 Time of Evaluation: 10:00 - Subjective Subjective: Seen on dialysis Objective - Vital Signs/Intake and Output Vital Signs (last 24 hours): Temp Pulse Resp BP Pulse Ox 98.8 F 115 H 16 132/81 98 04/16/18 19:44 04/16/18 19:44 04/16/18 19:44 04/16/18 19:44 04/16/18 19:44 Intake and Output: 04/16/18 04/17/18 18:59 06:59 Intake Total 500 Output Total 100 Balance 400 - Medications Medications: Current Medications Acetaminophen (Tylenol 325mg Tab) 650 mg PO Q6H PRN PRN Reason: Fever >100.4 F Acetaminophen (Tylenol 325mg Tab) 650 mg PO Q6 PRN PRN Reason: Pain, moderate (4-7) Last Admin: 04/14/18 20:49 Dose: 650 mg Albuterol/Ipratropium (Duoneb 3 Mg/0.5 Mg (3 Ml) Ud) 3 ml INH RQID [facility] Last Admin: 04/16/18 19:16 Dose: 3 ml Calcium Acetate (Phoslo) 1,334 mg PO WM [facility] Last Admin: 04/16/18 18:20 Dose: Not Given Epoetin Charles (Procrit) 14,000 unit SC TTS [facility] Last Admin: 04/16/18 10:41 Dose: 14,000 unit Ergocalciferol (Drisdol 50,000 Intl Units Cap) 1 cap PO Q7D [facility] Last Admin: 04/10/18 08:59 Dose: 1 cap Finasteride (Proscar) 5 mg PO DAILY [facility] Last Admin: 04/16/18 08:18 Dose: 5 mg Fluticasone Propionate (Flonase) 1 spr [facility] DAILY PRN PRN Reason: Nasal congestion Guaifenesin (Mucinex La) 1,200 mg PO Q12 [facility] Last Admin: 04/16/18 08:17 Dose: Not Given Metoprolol Succinate (Toprol Xl) 25 mg PO DAILY [facility] Last Admin: 04/16/18 13:09 Dose: 25 mg Pantoprazole Sodium (Protonix Ec Tab) 40 mg PO DAILY [facility] Last Admin: 04/16/18 08:18 Dose: 40 mg Prednisone (Prednisone Tab) 60 mg PO DAILY [facility] Last Admin: 04/16/18 08:17 Dose: 60 mg Tamsulosin HCl (Flomax) 0.4 mg PO QPM [facility] Last Admin: 04/16/18 18:20 Dose: Not Given Vitamin B Complex/Vit C/Folic Acid (Nephro-Jj) 1 tab PO DAILY [facility] Last Admin: 04/16/18 08:22 Dose: 1 tab - Labs Labs: 04/16/18 08:54 04/16/18 08:54 PT 16.2 Seconds (9.8-13.1) H 04/14/18 09:53 INR 1.5 04/14/18 09:53 APTT 29.7 Seconds (25.6-37.1) 04/14/18 09:53 - Head Exam Head Exam: ATRAUMATIC - Eye Exam Eye Exam: Normal appearance - ENT Exam ENT Exam: Mucous Membranes Dry - Respiratory Exam Respiratory Exam: NORMAL BREATHING PATTERN - Cardiovascular Exam Cardiovascular Exam: +S1, +S2 - GI/Abdominal Exam GI & Abdominal Exam: Normal Bowel Sounds Assessment and Plan (1) Anemia Assessment & Plan: iron deficiency s/p IV iron anemia of CKD on Procrit per renal transfusion support PRN Status: Acute
--- NOTE | 2018-04-16 21:07 | CP.PCM.PN ---
Subjective - Date & Time of Evaluation Date of Evaluation: 04/14/18 Time of Evaluation: 14:00 - Subjective Subjective: No complaints. Objective - Vital Signs/Intake and Output Vital Signs (last 24 hours): Temp Pulse Resp BP Pulse Ox 98.8 F 115 H 16 132/81 98 04/16/18 19:44 04/16/18 19:44 04/16/18 19:44 04/16/18 19:44 04/16/18 19:44 Intake and Output: 04/16/18 04/17/18 18:59 06:59 Intake Total 500 Output Total 100 Balance 400 - Medications Medications: Current Medications Acetaminophen (Tylenol 325mg Tab) 650 mg PO Q6H PRN PRN Reason: Fever >100.4 F Acetaminophen (Tylenol 325mg Tab) 650 mg PO Q6 PRN PRN Reason: Pain, moderate (4-7) Last Admin: 04/14/18 20:49 Dose: 650 mg Albuterol/Ipratropium (Duoneb 3 Mg/0.5 Mg (3 Ml) Ud) 3 ml INH RQID [facility] Last Admin: 04/16/18 19:16 Dose: 3 ml Calcium Acetate (Phoslo) 1,334 mg PO WM [facility] Last Admin: 04/16/18 18:20 Dose: Not Given Epoetin Charles (Procrit) 14,000 unit SC TTS [facility] Last Admin: 04/16/18 10:41 Dose: 14,000 unit Ergocalciferol (Drisdol 50,000 Intl Units Cap) 1 cap PO Q7D [facility] Last Admin: 04/10/18 08:59 Dose: 1 cap Finasteride (Proscar) 5 mg PO DAILY [facility] Last Admin: 04/16/18 08:18 Dose: 5 mg Fluticasone Propionate (Flonase) 1 spr [facility] DAILY PRN PRN Reason: Nasal congestion Guaifenesin (Mucinex La) 1,200 mg PO Q12 [facility] Last Admin: 04/16/18 08:17 Dose: Not Given Metoprolol Succinate (Toprol Xl) 25 mg PO DAILY [facility] Last Admin: 04/16/18 13:09 Dose: 25 mg Pantoprazole Sodium (Protonix Ec Tab) 40 mg PO DAILY [facility] Last Admin: 04/16/18 08:18 Dose: 40 mg Prednisone (Prednisone Tab) 60 mg PO DAILY [facility] Last Admin: 04/16/18 08:17 Dose: 60 mg Tamsulosin HCl (Flomax) 0.4 mg PO QPM [facility] Last Admin: 04/16/18 18:20 Dose: Not Given Vitamin B Complex/Vit C/Folic Acid (Nephro-Jj) 1 tab PO DAILY [facility] Last Admin: 04/16/18 08:22 Dose: 1 tab - Labs Labs: 04/16/18 08:54 04/16/18 08:54 PT 16.2 Seconds (9.8-13.1) H 04/14/18 09:53 INR 1.5 04/14/18 09:53 APTT 29.7 Seconds (25.6-37.1) 04/14/18 09:53 - Head Exam Head Exam: ATRAUMATIC - Eye Exam Eye Exam: Normal appearance - ENT Exam ENT Exam: Mucous Membranes Dry - Respiratory Exam Respiratory Exam: NORMAL BREATHING PATTERN - Cardiovascular Exam Cardiovascular Exam: +S1, +S2 - GI/Abdominal Exam GI & Abdominal Exam: Normal Bowel Sounds Assessment and Plan (1) Anemia Assessment & Plan: iron deficiency s/p IV iron anemia of CKD on Procrit per renal transfusion support PRN Status: Acute
--- NOTE | 2018-04-16 21:08 | CP.PCM.PN ---
Subjective - Date & Time of Evaluation Date of Evaluation: 04/15/18 Time of Evaluation: 13:00 - Subjective Subjective: No complaints. Objective - Vital Signs/Intake and Output Vital Signs (last 24 hours): Temp Pulse Resp BP Pulse Ox 98.8 F 115 H 16 132/81 98 04/16/18 19:44 04/16/18 19:44 04/16/18 19:44 04/16/18 19:44 04/16/18 19:44 Intake and Output: 04/16/18 04/17/18 18:59 06:59 Intake Total 500 Output Total 100 Balance 400 - Medications Medications: Current Medications Acetaminophen (Tylenol 325mg Tab) 650 mg PO Q6H PRN PRN Reason: Fever >100.4 F Acetaminophen (Tylenol 325mg Tab) 650 mg PO Q6 PRN PRN Reason: Pain, moderate (4-7) Last Admin: 04/14/18 20:49 Dose: 650 mg Albuterol/Ipratropium (Duoneb 3 Mg/0.5 Mg (3 Ml) Ud) 3 ml INH RQID [facility] Last Admin: 04/16/18 19:16 Dose: 3 ml Calcium Acetate (Phoslo) 1,334 mg PO WM [facility] Last Admin: 04/16/18 18:20 Dose: Not Given Epoetin Charles (Procrit) 14,000 unit SC TTS [facility] Last Admin: 04/16/18 10:41 Dose: 14,000 unit Ergocalciferol (Drisdol 50,000 Intl Units Cap) 1 cap PO Q7D [facility] Last Admin: 04/10/18 08:59 Dose: 1 cap Finasteride (Proscar) 5 mg PO DAILY [facility] Last Admin: 04/16/18 08:18 Dose: 5 mg Fluticasone Propionate (Flonase) 1 spr [facility] DAILY PRN PRN Reason: Nasal congestion Guaifenesin (Mucinex La) 1,200 mg PO Q12 [facility] Last Admin: 04/16/18 08:17 Dose: Not Given Metoprolol Succinate (Toprol Xl) 25 mg PO DAILY [facility] Last Admin: 04/16/18 13:09 Dose: 25 mg Pantoprazole Sodium (Protonix Ec Tab) 40 mg PO DAILY [facility] Last Admin: 04/16/18 08:18 Dose: 40 mg Prednisone (Prednisone Tab) 60 mg PO DAILY [facility] Last Admin: 04/16/18 08:17 Dose: 60 mg Tamsulosin HCl (Flomax) 0.4 mg PO QPM [facility] Last Admin: 04/16/18 18:20 Dose: Not Given Vitamin B Complex/Vit C/Folic Acid (Nephro-Jj) 1 tab PO DAILY [facility] Last Admin: 04/16/18 08:22 Dose: 1 tab - Labs Labs: 04/16/18 08:54 04/16/18 08:54 PT 16.2 Seconds (9.8-13.1) H 04/14/18 09:53 INR 1.5 04/14/18 09:53 APTT 29.7 Seconds (25.6-37.1) 04/14/18 09:53 - Head Exam Head Exam: ATRAUMATIC - Eye Exam Eye Exam: Normal appearance - ENT Exam ENT Exam: Mucous Membranes Dry - Respiratory Exam Respiratory Exam: NORMAL BREATHING PATTERN - Cardiovascular Exam Cardiovascular Exam: +S1, +S2 - GI/Abdominal Exam GI & Abdominal Exam: Normal Bowel Sounds Assessment and Plan (1) Anemia Assessment & Plan: iron deficiency s/p IV iron anemia of CKD on Procrit per renal transfusion support PRN Status: Acute
--- NOTE | 2018-04-16 21:09 | CP.PCM.PN ---
Subjective - Date & Time of Evaluation Date of Evaluation: 04/16/18 Time of Evaluation: 16:00 - Subjective Subjective: No complaints. Objective - Vital Signs/Intake and Output Vital Signs (last 24 hours): Temp Pulse Resp BP Pulse Ox 98.8 F 115 H 16 132/81 98 04/16/18 19:44 04/16/18 19:44 04/16/18 19:44 04/16/18 19:44 04/16/18 19:44 Intake and Output: 04/16/18 04/17/18 18:59 06:59 Intake Total 500 Output Total 100 Balance 400 - Medications Medications: Current Medications Acetaminophen (Tylenol 325mg Tab) 650 mg PO Q6H PRN PRN Reason: Fever >100.4 F Acetaminophen (Tylenol 325mg Tab) 650 mg PO Q6 PRN PRN Reason: Pain, moderate (4-7) Last Admin: 04/14/18 20:49 Dose: 650 mg Albuterol/Ipratropium (Duoneb 3 Mg/0.5 Mg (3 Ml) Ud) 3 ml INH RQID [facility] Last Admin: 04/16/18 19:16 Dose: 3 ml Calcium Acetate (Phoslo) 1,334 mg PO WM [facility] Last Admin: 04/16/18 18:20 Dose: Not Given Epoetin Charles (Procrit) 14,000 unit SC TTS [facility] Last Admin: 04/16/18 10:41 Dose: 14,000 unit Ergocalciferol (Drisdol 50,000 Intl Units Cap) 1 cap PO Q7D [facility] Last Admin: 04/10/18 08:59 Dose: 1 cap Finasteride (Proscar) 5 mg PO DAILY [facility] Last Admin: 04/16/18 08:18 Dose: 5 mg Fluticasone Propionate (Flonase) 1 spr [facility] DAILY PRN PRN Reason: Nasal congestion Guaifenesin (Mucinex La) 1,200 mg PO Q12 [facility] Last Admin: 04/16/18 08:17 Dose: Not Given Metoprolol Succinate (Toprol Xl) 25 mg PO DAILY [facility] Last Admin: 04/16/18 13:09 Dose: 25 mg Pantoprazole Sodium (Protonix Ec Tab) 40 mg PO DAILY [facility] Last Admin: 04/16/18 08:18 Dose: 40 mg Prednisone (Prednisone Tab) 60 mg PO DAILY [facility] Last Admin: 04/16/18 08:17 Dose: 60 mg Tamsulosin HCl (Flomax) 0.4 mg PO QPM [facility] Last Admin: 04/16/18 18:20 Dose: Not Given Vitamin B Complex/Vit C/Folic Acid (Nephro-Jj) 1 tab PO DAILY [facility] Last Admin: 04/16/18 08:22 Dose: 1 tab - Labs Labs: 04/16/18 08:54 04/16/18 08:54 PT 16.2 Seconds (9.8-13.1) H 04/14/18 09:53 INR 1.5 04/14/18 09:53 APTT 29.7 Seconds (25.6-37.1) 04/14/18 09:53 - Head Exam Head Exam: ATRAUMATIC - Eye Exam Eye Exam: Normal appearance - ENT Exam ENT Exam: Mucous Membranes Dry - Respiratory Exam Respiratory Exam: NORMAL BREATHING PATTERN - Cardiovascular Exam Cardiovascular Exam: +S1, +S2 - GI/Abdominal Exam GI & Abdominal Exam: Normal Bowel Sounds Assessment and Plan (1) Anemia Assessment & Plan: iron deficiency s/p IV iron anemia of CKD on Procrit per renal s/p transfusion support transfusion support PRN Status: Acute
[2018-04-17 07:12] LABS: BASO % 0.5 % (0.0-2.0); EOS # 0.2 K/uL (0.0-0.7); EOS % 2.5 % (0.0-4.0); HEMOGLOBIN 8.4 g/dL (12.0-18.0); LYMPH # 0.7 K/uL (1.0-4.3); LYMPH % 7.5 % (20.0-40.0); MEAN CELL VOLUME 86.2 fl (80.0-94.0); MEAN CORPUSCULAR HEMOGLOBIN 29.3 pg (27.0-31.0); MEAN CORPUSCULAR HGB CONC 33.9 g/dL (33.0-37.0); MEAN PLATELET VOLUME 7.2 fl (7.2-11.7); MONO # 0.9 K/uL (0.0-0.8); MONO % 8.9 % (0.0-10.0); NEUT # 7.9 K/uL (1.8-7.0); NEUT % 80.6 % (50.0-75.0); RBC 2.88 Mil/uL (4.40-5.90); RED CELL DISTRIBUTION WIDTH 28.2 % (11.5-14.5); WHITE BLOOD COUNT 9.8 K/uL (4.8-10.8)
[2018-04-17] MEDS: Albuterol-Ipratrop 3 mg / 0.5 (3 ml) UD INH SCH ×5 (07:40→19:23)
[2018-04-17 07:56] LABS: ALB/GLOB RATIO 1.4 (1.0-2.1); ALBUMIN 2.7 g/dL (3.5-5.0); CALCIUM 8.1 mg/dL (8.4-10.2)
[2018-04-17] MEDS: guaiFENesin 600 mg ER Tab PO SCH ×3 (08:03→21:25)
[2018-04-17] MEDS: Metoprolol Succinate 25 mg XL Tab PO SCH (08:04)
[2018-04-17] MEDS: Multivitamin Vitamin B Complex (Nephro-Vite) Tab PO SCH (08:05)
[2018-04-17] MEDS: Pantoprazole 40 mg EC Tab PO SCH (08:05)
--- NOTE | 2018-04-17 13:15 | CP.PCM.PN ---
Subjective - Date & Time of Evaluation Date of Evaluation: 04/17/18 Time of Evaluation: 07:00 - Subjective Subjective: weak but nad alert Objective - Vital Signs/Intake and Output Vital Signs (last 24 hours): Temp Pulse Resp BP Pulse Ox 98.7 F 99 H 20 115/73 100 04/17/18 12:00 04/17/18 12:00 04/17/18 12:00 04/17/18 12:00 04/17/18 12:00 - Medications Medications: Current Medications Acetaminophen (Tylenol 325mg Tab) 650 mg PO Q6H PRN PRN Reason: Fever >100.4 F Acetaminophen (Tylenol 325mg Tab) 650 mg PO Q6 PRN PRN Reason: Pain, moderate (4-7) Last Admin: 04/14/18 20:49 Dose: 650 mg Albuterol/Ipratropium (Duoneb 3 Mg/0.5 Mg (3 Ml) Ud) 3 ml INH RQID [facility] Last Admin: 04/17/18 11:14 Dose: 3 ml Calcium Acetate (Phoslo) 1,334 mg PO WM [facility] Last Admin: 04/17/18 08:04 Dose: 1,334 mg Epoetin Charles (Procrit) 14,000 unit SC TTS [facility] Last Admin: 04/16/18 10:41 Dose: 14,000 unit Ergocalciferol (Drisdol 50,000 Intl Units Cap) 1 cap PO Q7D [facility] Last Admin: 04/10/18 08:59 Dose: 1 cap Finasteride (Proscar) 5 mg PO DAILY [facility] Last Admin: 04/17/18 08:07 Dose: 5 mg Fluticasone Propionate (Flonase) 1 spr [facility] DAILY PRN PRN Reason: Nasal congestion Guaifenesin (Mucinex La) 1,200 mg PO Q12 [facility] Last Admin: 04/17/18 08:03 Dose: 1,200 mg Metoprolol Succinate (Toprol Xl) 25 mg PO DAILY [facility] Last Admin: 04/17/18 08:04 Dose: 25 mg Pantoprazole Sodium (Protonix Ec Tab) 40 mg PO DAILY [facility] Last Admin: 04/17/18 08:05 Dose: 40 mg Prednisone (Prednisone Tab) 60 mg PO DAILY [facility] Last Admin: 04/17/18 08:06 Dose: 60 mg Tamsulosin HCl (Flomax) 0.4 mg PO QPM [facility] Last Admin: 04/16/18 18:20 Dose: Not Given Vitamin B Complex/Vit C/Folic Acid (Nephro-Jj) 1 tab PO DAILY [facility] Last Admin: 04/17/18 08:05 Dose: 1 tab - Labs Labs: 04/17/18 06:10 04/17/18 06:10 PT 16.2 Seconds (9.8-13.1) H 04/14/18 09:53 INR 1.5 04/14/18 09:53 APTT 29.7 Seconds (25.6-37.1) 04/14/18 09:53 - Constitutional Appears: Non-toxic, Chronically Ill - Head Exam Head Exam: NORMOCEPHALIC - Eye Exam Eye Exam: PERRL - ENT Exam ENT Exam: Mucous Membranes Dry - Neck Exam Neck Exam: absent: Lymphadenopathy - Respiratory Exam Respiratory Exam: Decreased Breath Sounds - Cardiovascular Exam Cardiovascular Exam: REGULAR RHYTHM - GI/Abdominal Exam GI & Abdominal Exam: Distended, Soft - Rectal Exam Rectal Exam: Deferred - Exam Exam: NORMAL INSPECTION - Extremities Exam Extremities Exam: Pedal Edema, Tenderness - Back Exam Back Exam: absent: CVA tenderness (L), CVA tenderness (R) - Neurological Exam Neurological Exam: Alert, Awake Assessment and Plan (1) A-fib Status: Acute (2) Acute on chronic renal failure Status: Acute (3) Altered mental status Status: Acute (4) Anemia Status: Acute (5) Atrial enlargement, bilateral Status: Acute (6) Enlarged RV (right ventricle) Status: Acute (7) Pulmonary infiltrate Status: Acute (8) Pulmonary nodules/lesions, multiple Status: Acute (9) UTI (urinary tract infection) Status: Acute - Assessment and Plan (Free Text) Assessment: will check arterial/ venous dopplers right leg swollen / cool
--- NOTE | 2018-04-17 13:15 | CP.PCM.PN ---
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 Continue prednisone 60 mg/day. PCP prophylaxis with atovaquone Hypertension control with meds as ordered. Patient not on ACEI/ARB due to QUINTON Monitor Input/Output, daily weights and renal function with basic metabolic panel continue with epogen continue with weekly Vit D prbc per primary team Subjective: no complaints Physical Examination: General Appearance: Comfortable, in no acute respiratory distress, co-operative . ill appearing Vitals reviewed and noted as below Head; Atraumatic, normocephalic ENT: no ulcers no thrush. Tongue is midline. Oropharynx: no rash or ulcers. EYES: Pupils are equal, round and reactive to light accommodation. Eye muscles and extraocular movement intact. Sclera is anicteric. Neck; supple no lymphadenopathy, no thyromegaly or bruit Lungs: Normal respiratory rate/effort. Breath sounds bilateral with rales Heart: Normal rate. s1s2 normal. No rub or gallop. Extremities: 2+ edema. No varicose veins Neurological: Patient is alert, awake and oriented to person, place and time. No focal deficit. Strength bilateral appropriate and equal Skin: Warm and dry. Normal turgor. No rash. Palpitation: Normal elasticity for age Abdomen: Abdomen is soft. Bowel sounds +. There is no abdominal tenderness, no guarding/rigidity no organomegaly Psych: lackl insight and normal affect/mood MSK: no joint tenderness or swelling. Digits and nails normal, no deformity : kidney or bladder not palpable Labs/imaging reviewed. Past medical history, past surgical history, family history, social history, allergy reviewed and noted as below Family hx: no hx of CKD. Rest non-contributory Objective - Vital Signs/Intake and Output Vital Signs (last 24 hours): Temp Pulse Resp BP Pulse Ox 98.7 F 99 H 20 115/73 100 04/17/18 12:00 04/17/18 12:00 04/17/18 12:00 04/17/18 12:00 04/17/18 12:00 - Medications Medications: Current Medications Acetaminophen (Tylenol 325mg Tab) 650 mg PO Q6H PRN PRN Reason: Fever >100.4 F Acetaminophen (Tylenol 325mg Tab) 650 mg PO Q6 PRN PRN Reason: Pain, moderate (4-7) Last Admin: 04/14/18 20:49 Dose: 650 mg Albuterol/Ipratropium (Duoneb 3 Mg/0.5 Mg (3 Ml) Ud) 3 ml INH RQID [facility] Last Admin: 04/17/18 11:14 Dose: 3 ml Calcium Acetate (Phoslo) 1,334 mg PO WM [facility] Last Admin: 04/17/18 08:04 Dose: 1,334 mg Epoetin Charles (Procrit) 14,000 unit SC TTS [facility] Last Admin: 04/16/18 10:41 Dose: 14,000 unit Ergocalciferol (Drisdol 50,000 Intl Units Cap) 1 cap PO Q7D [facility] Last Admin: 04/10/18 08:59 Dose: 1 cap Finasteride (Proscar) 5 mg PO DAILY [facility] Last Admin: 04/17/18 08:07 Dose: 5 mg Fluticasone Propionate (Flonase) 1 spr [facility] DAILY PRN PRN Reason: Nasal congestion Guaifenesin (Mucinex La) 1,200 mg PO Q12 [facility] Last Admin: 04/17/18 08:03 Dose: 1,200 mg Metoprolol Succinate (Toprol Xl) 25 mg PO DAILY [facility] Last Admin: 04/17/18 08:04 Dose: 25 mg Pantoprazole Sodium (Protonix Ec Tab) 40 mg PO DAILY [facility] Last Admin: 04/17/18 08:05 Dose: 40 mg Prednisone (Prednisone Tab) 60 mg PO DAILY [facility] Last Admin: 04/17/18 08:06 Dose: 60 mg Tamsulosin HCl (Flomax) 0.4 mg PO QPM [facility] Last Admin: 04/16/18 18:20 Dose: Not Given Vitamin B Complex/Vit C/Folic Acid (Nephro-Jj) 1 tab PO DAILY [facility] Last Admin: 04/17/18 08:05 Dose: 1 tab - Labs Labs: 04/17/18 06:10 04/17/18 06:10 PT 16.2 Seconds (9.8-13.1) H 04/14/18 09:53 INR 1.5 04/14/18 09:53 APTT 29.7 Seconds (25.6-37.1) 04/14/18 09:53
[2018-04-17] MEDS: Ergocalciferol 50,000 Intl Units Cap PO SCH (13:53)
--- NOTE | 2018-04-17 15:21 | PN ---
Copied To: Kali Moran MD Attending MD: Kali Moran MD DATE: 04/17/2018 SUBJECTIVE: The patient is experiencing mild shortness of breath as well as right-sided pain. He is still experiencing poor appetite. PHYSICAL EXAMINATION: VITAL SIGNS: Blood pressure 115/73, heart rate 99, temperature 97.3, respirations 20. HEENT: Pale conjunctivae. CHEST: Right basilar crepitations. HEART: S1 and S2 are regular. ABDOMEN: Soft. EXTREMITIES: A 2+ pitting edema. LABORATORY DATA: Hemoglobin and hematocrit 8.4 and 24.8, white count 9.8, and platelet count 82,000. Today's SMA-7 is within normal limits except BUN and creatinine of 22 and 3.7 respectively. Calcium is 8.1. ASSESSMENT: 1. Necrotizing glomerulonephritis and angitis. 2. Pneumonia. 3. Anemia and thrombocytopenia. 4. Chronic atrial fibrillation. 5. Left arm cellulitis. 6. Segmental hypokinesis of the mid septum as per echocardiographic study. RECOMMENDATIONS: Continue albuterol inhaler four times a day, Flomax 0.4 mg once a day, Mucinex LA 1200 mg twice a day, PhosLo two tablets with each meal, prednisone 60 mg once a day, Proscar 5 mg once a day, Toprol-XL 25 mg once a day. Kali Moran MD
--- NOTE | 2018-04-17 17:39 | CP.PCM.PN ---
Subjective - Date & Time of Evaluation Date of Evaluation: 04/16/18 Time of Evaluation: 13:20 - Subjective Subjective: Patient is much more awake Noted decrease in WBC to normal Much more conversant Has no chest pain or SOB. Objective - Vital Signs/Intake and Output Vital Signs (last 24 hours): Temp Pulse Resp BP Pulse Ox 97.4 F L 114 H 16 143/83 100 04/17/18 17:15 04/17/18 17:15 04/17/18 17:15 04/17/18 17:15 04/17/18 17:15 - Medications Medications: Current Medications Acetaminophen (Tylenol 325mg Tab) 650 mg PO Q6H PRN PRN Reason: Fever >100.4 F Acetaminophen (Tylenol 325mg Tab) 650 mg PO Q6 PRN PRN Reason: Pain, moderate (4-7) Last Admin: 04/14/18 20:49 Dose: 650 mg Albuterol/Ipratropium (Duoneb 3 Mg/0.5 Mg (3 Ml) Ud) 3 ml INH RQID [facility] Last Admin: 04/17/18 15:47 Dose: 3 ml Calcium Acetate (Phoslo) 1,334 mg PO WM [facility] Last Admin: 04/17/18 12:52 Dose: 1,334 mg Epoetin Charles (Procrit) 14,000 unit SC TTS [facility] Last Admin: 04/16/18 10:41 Dose: 14,000 unit Ergocalciferol (Drisdol 50,000 Intl Units Cap) 1 cap PO Q7D [facility] Last Admin: 04/17/18 13:53 Dose: 1 cap Finasteride (Proscar) 5 mg PO DAILY [facility] Last Admin: 04/17/18 08:07 Dose: 5 mg Fluticasone Propionate (Flonase) 1 spr [facility] DAILY PRN PRN Reason: Nasal congestion Guaifenesin (Mucinex La) 1,200 mg PO Q12 [facility] Last Admin: 04/17/18 08:03 Dose: 1,200 mg Metoprolol Succinate (Toprol Xl) 25 mg PO DAILY [facility] Last Admin: 04/17/18 08:04 Dose: 25 mg Pantoprazole Sodium (Protonix Ec Tab) 40 mg PO DAILY [facility] Last Admin: 04/17/18 08:05 Dose: 40 mg Prednisone (Prednisone Tab) 60 mg PO DAILY [facility] Last Admin: 04/17/18 08:06 Dose: 60 mg Tamsulosin HCl (Flomax) 0.4 mg PO QPM [facility] Last Admin: 04/16/18 18:20 Dose: Not Given Vitamin B Complex/Vit C/Folic Acid (Nephro-Jj) 1 tab PO DAILY [facility] Last Admin: 04/17/18 08:05 Dose: 1 tab - Labs Labs: 04/17/18 06:10 04/17/18 06:10 PT 16.2 Seconds (9.8-13.1) H 04/14/18 09:53 INR 1.5 04/14/18 09:53 APTT 29.7 Seconds (25.6-37.1) 04/14/18 09:53 - Head Exam Head Exam: NORMAL INSPECTION - Eye Exam Eye Exam: Normal appearance - ENT Exam ENT Exam: Mucous Membranes Moist - Respiratory Exam Respiratory Exam: Clear to Ausculation Bilateral - Cardiovascular Exam Cardiovascular Exam: REGULAR RHYTHM - GI/Abdominal Exam GI & Abdominal Exam: Normal Bowel Sounds - Neurological Exam Neurological Exam: Awake, Oriented x3 - Psychiatric Exam Psychiatric exam: Flat Affect Assessment and Plan (1) Pneumonia Status: Acute (2) Anemia Status: Acute (3) Renal failure Status: Acute (4) Severe anemia Status: Acute (5) UTI (urinary tract infection) Status: Acute - Assessment and Plan (Free Text) Plan: Cont meds COn tHD Cont Iv antibiotics check labs cont telemetry and monitor.
[2018-04-18] MEDS: Albuterol-Ipratrop 3 mg / 0.5 (3 ml) UD INH SCH ×4 (07:26→19:06)
[2018-04-18] MEDS: Pantoprazole 40 mg EC Tab PO SCH (09:05)
[2018-04-18] MEDS: Multivitamin Vitamin B Complex (Nephro-Vite) Tab PO SCH (09:09)
[2018-04-18] MEDS: guaiFENesin 600 mg ER Tab PO SCH ×2 (09:15→21:23)
[2018-04-18] MEDS: Metoprolol Succinate 25 mg XL Tab PO SCH (09:25)
--- NOTE | 2018-04-18 11:12 | CP.PCM.PN ---
<Ada Anderson - Last Filed: 04/18/18 11:15> Subjective - Date & Time of Evaluation Date of Evaluation: 04/18/18 Time of Evaluation: 11:08 - Subjective Subjective: Patient seen and examined at bedside. He states that he is feeling much better. On exam, patient continues to breathe comfortably, takes deep breath w/o cough. No dullness present on percussion of the anterior chest wall. Breath sounds are present bilaterally, equally, diminished. No rales or wheezes are heard on auscultation today. Chest CT ordered for today. Dr. Laisha Parks served as park interpreter Objective - Vital Signs/Intake and Output Vital Signs (last 24 hours): Temp Pulse Resp BP Pulse Ox 98 F 110 H 20 134/78 97 04/18/18 08:00 04/18/18 08:00 04/18/18 08:00 04/18/18 08:00 04/18/18 08:00 - Medications Medications: Current Medications Acetaminophen (Tylenol 325mg Tab) 650 mg PO Q6H PRN PRN Reason: Fever >100.4 F Acetaminophen (Tylenol 325mg Tab) 650 mg PO Q6 PRN PRN Reason: Pain, moderate (4-7) Last Admin: 04/14/18 20:49 Dose: 650 mg Albuterol/Ipratropium (Duoneb 3 Mg/0.5 Mg (3 Ml) Ud) 3 ml INH RQID [facility] Last Admin: 04/18/18 11:03 Dose: 3 ml Calcium Acetate (Phoslo) 1,334 mg PO WM [facility] Last Admin: 04/18/18 09:00 Dose: Not Given Epoetin Charles (Procrit) 14,000 unit SC TTS [facility] Last Admin: 04/16/18 10:41 Dose: 14,000 unit Finasteride (Proscar) 5 mg PO DAILY [facility] Last Admin: 04/17/18 08:07 Dose: 5 mg Fluticasone Propionate (Flonase) 1 spr [facility] DAILY PRN PRN Reason: Nasal congestion Guaifenesin (Mucinex La) 1,200 mg PO Q12 [facility] Last Admin: 04/17/18 21:25 Dose: Not Given Metoprolol Succinate (Toprol Xl) 25 mg PO DAILY [facility] Last Admin: 04/17/18 08:04 Dose: 25 mg Pantoprazole Sodium (Protonix Ec Tab) 40 mg PO DAILY [facility] Last Admin: 04/17/18 08:05 Dose: 40 mg Prednisone (Prednisone Tab) 60 mg PO DAILY [facility] Last Admin: 04/17/18 08:06 Dose: 60 mg Tamsulosin HCl (Flomax) 0.4 mg PO QPM [facility] Last Admin: 04/17/18 18:52 Dose: 0.4 mg Vitamin B Complex/Vit C/Folic Acid (Nephro-Jj) 1 tab PO DAILY [facility] Last Admin: 04/17/18 08:05 Dose: 1 tab - Labs Labs: 04/17/18 06:10 04/17/18 06:10 PT 16.2 Seconds (9.8-13.1) H 04/14/18 09:53 INR 1.5 04/14/18 09:53 APTT 29.7 Seconds (25.6-37.1) 04/14/18 09:53 <Stephan Sandoval - Last Filed: 04/19/18 07:16> Subjective - Subjective Subjective: Seen and examined together with the residents on rounds. Physical findings and ancillary studies reviewed. Diagnosis and plan of care discussed. The entry in the EMR accurately reflects this encounter. Objective - Vital Signs/Intake and Output Vital Signs (last 24 hours): Temp Pulse Resp BP Pulse Ox 98.4 F 102 H 18 149/88 96 04/19/18 05:15 04/19/18 05:15 04/19/18 05:15 04/19/18 05:15 04/19/18 05:15 - Medications Medications: Current Medications Acetaminophen (Tylenol 325mg Tab) 650 mg PO Q6H PRN PRN Reason: Fever >100.4 F Acetaminophen (Tylenol 325mg Tab) 650 mg PO Q6 PRN PRN Reason: Pain, moderate (4-7) Last Admin: 04/14/18 20:49 Dose: 650 mg Albuterol/Ipratropium (Duoneb 3 Mg/0.5 Mg (3 Ml) Ud) 3 ml INH RQID [facility] Last Admin: 04/19/18 07:01 Dose: 3 ml Atovaquone (Mepron) 750 mg PO BIDWM [facility] PRN Reason: Protocol Last Admin: 04/18/18 18:19 Dose: Not Given Calcium Acetate (Phoslo) 1,334 mg PO WM [facility] Last Admin: 04/18/18 18:05 Dose: 1,334 mg Epoetin Charles (Procrit) 14,000 unit IV MWF [facility] Last Admin: 04/18/18 23:42 Dose: 14,000 unit Finasteride (Proscar) 5 mg PO DAILY [facility] Last Admin: 04/18/18 18:04 Dose: 5 mg Fluticasone Propionate (Flonase) 1 spr [facility] DAILY PRN PRN Reason: Nasal congestion Guaifenesin (Mucinex La) 1,200 mg PO Q12 [facility] Last Admin: 04/18/18 21:23 Dose: Not Given Metoprolol Succinate (Toprol Xl) 25 mg PO DAILY [facility] Last Admin: 04/18/18 09:25 Dose: 25 mg Pantoprazole Sodium (Protonix Ec Tab) 40 mg PO DAILY [facility] Last Admin: 04/18/18 09:05 Dose: Not Given Prednisone (Prednisone Tab) 60 mg PO DAILY [facility] Last Admin: 04/18/18 18:07 Dose: 60 mg Tamsulosin HCl (Flomax) 0.4 mg PO QPM [facility] Last Admin: 04/18/18 18:07 Dose: 0.4 mg Vitamin B Complex/Vit C/Folic Acid (Nephro-Jj) 1 tab PO DAILY [facility] Last Admin: 04/18/18 09:09 Dose: 1 tab - Labs Labs: 04/18/18 22:30 04/17/18 06:10 PT 16.2 Seconds (9.8-13.1) H 04/14/18 09:53 INR 1.5 04/14/18 09:53 APTT 29.7 Seconds (25.6-37.1) 04/14/18 09:53 Assessment and Plan (1) Pulmonary infiltrate Status: Acute
--- NOTE | 2018-04-18 13:02 | CP.PCM.PN ---
Subjective - Date & Time of Evaluation Date of Evaluation: 04/18/18 Time of Evaluation: 09:00 - Subjective Subjective: events noted IV rx in progress Objective - Vital Signs/Intake and Output Vital Signs (last 24 hours): Temp Pulse Resp BP Pulse Ox 97.9 F 108 H 20 147/77 96 04/18/18 12:00 04/18/18 12:00 04/18/18 12:00 04/18/18 12:00 04/18/18 12:00 - Medications Medications: Current Medications Acetaminophen (Tylenol 325mg Tab) 650 mg PO Q6H PRN PRN Reason: Fever >100.4 F Acetaminophen (Tylenol 325mg Tab) 650 mg PO Q6 PRN PRN Reason: Pain, moderate (4-7) Last Admin: 04/14/18 20:49 Dose: 650 mg Albuterol/Ipratropium (Duoneb 3 Mg/0.5 Mg (3 Ml) Ud) 3 ml INH RQID [facility] Last Admin: 04/18/18 11:03 Dose: 3 ml Atovaquone (Mepron) 750 mg PO BIDWM [facility] PRN Reason: Protocol Calcium Acetate (Phoslo) 1,334 mg PO WM [facility] Last Admin: 04/18/18 09:00 Dose: Not Given Epoetin Charles (Procrit) 14,000 unit IV MWF [facility] Finasteride (Proscar) 5 mg PO DAILY [facility] Last Admin: 04/17/18 08:07 Dose: 5 mg Fluticasone Propionate (Flonase) 1 spr [facility] DAILY PRN PRN Reason: Nasal congestion Guaifenesin (Mucinex La) 1,200 mg PO Q12 [facility] Last Admin: 04/17/18 21:25 Dose: Not Given Metoprolol Succinate (Toprol Xl) 25 mg PO DAILY [facility] Last Admin: 04/17/18 08:04 Dose: 25 mg Pantoprazole Sodium (Protonix Ec Tab) 40 mg PO DAILY [facility] Last Admin: 04/17/18 08:05 Dose: 40 mg Prednisone (Prednisone Tab) 60 mg PO DAILY [facility] Last Admin: 04/17/18 08:06 Dose: 60 mg Tamsulosin HCl (Flomax) 0.4 mg PO QPM [facility] Last Admin: 04/17/18 18:52 Dose: 0.4 mg Vitamin B Complex/Vit C/Folic Acid (Nephro-Jj) 1 tab PO DAILY [facility] Last Admin: 04/17/18 08:05 Dose: 1 tab - Labs Labs: 04/17/18 06:10 04/17/18 06:10 PT 16.2 Seconds (9.8-13.1) H 04/14/18 09:53 INR 1.5 04/14/18 09:53 APTT 29.7 Seconds (25.6-37.1) 04/14/18 09:53 - Constitutional Appears: Non-toxic, Chronically Ill - Head Exam Head Exam: NORMOCEPHALIC - Eye Exam Eye Exam: PERRL - ENT Exam ENT Exam: Mucous Membranes Dry - Neck Exam Neck Exam: absent: Lymphadenopathy - Respiratory Exam Respiratory Exam: Decreased Breath Sounds - Cardiovascular Exam Cardiovascular Exam: REGULAR RHYTHM Assessment and Plan (1) A-fib Status: Acute (2) Acute on chronic renal failure Status: Acute (3) Altered mental status Status: Acute (4) Anemia Status: Acute (5) Atrial enlargement, bilateral Status: Acute (6) Enlarged RV (right ventricle) Status: Acute (7) Pulmonary infiltrate Status: Acute (8) Pulmonary nodules/lesions, multiple Status: Acute (9) UTI (urinary tract infection) Status: Acute
[2018-04-18] MEDS ORDERED: Midazolam 2 MG/2 ML VIAL ONE (13:48)
--- NOTE | 2018-04-18 14:30 | CT ---
Date of service: 04/18/2018 PROCEDURE: CT Chest without contrast HISTORY: COMPARISON: Comparison made with CT scan chest 04/11/2018. The TECHNIQUE: Contiguous axial images were obtained through the chest without intravenous contrast enhancement. Sagittal and coronal reconstructions were performed. Radiation dose (DLP): 469.89 mGy-cm. This CT exam was performed using one or more of the following dose reduction techniques: Automated exposure control, adjustment of the mA and/or kV according to patient size, and/or use of iterative reconstruction technique. FINDINGS: LUNGS: There are large bilateral effusions right greater than left increased from prior study. Associated atelectatic changes both lower and upper lobes. . Focal interstitial and alveolar-type infiltrates in the upper and lower lobes bilaterally, progressed from predominately interstitial to more alveolar-type infiltrates. Questionable small nodule right lower lobe (axial image number 63). MEDIASTINUM: Heart remains enlarged. Small pericardial effusion. . Re- demonstrated is an elliptical shaped calcified lymph node in the anterior sub carinal region unchanged. Multiple small borderline noncalcified mediastinal lymph nodes are present. PLEURA: As above. No pneumothorax. BONES: Mild multilevel degenerative spondylosis of the thoracic spine UPPER ABDOMEN: Grossly unremarkable. OTHER FINDINGS: There appears to be mild diffuse anasarca changes. IMPRESSION: Large bilateral effusions increased from prior study. Atelectatic changes seen in the lower and upper lobes bilaterally. Additionally, there are interstitial and alveolar-type infiltrate seen in the upper and lower lobes bilaterally which have progressed slightly as detailed above. Cardiomegaly with small pericardial effusion. Mild diffuse anasarca changes.
--- NOTE | 2018-04-18 15:57 | PN ---
Copied To: Kali Moran MD Attending MD: Kali Moran MD DATE: 04/18/2018 SUBJECTIVE: The patient denies any chest pain. He is comfortable. He denies any productive cough. PHYSICAL EXAMINATION: VITAL SIGNS: Blood pressure 134/78, heart rate 110, temperature 98, respirations 20. HEENT: Pale conjunctivae. CHEST: Diminished breath sounds over the right base. HEART: Heart S1 and S2 regular. ABDOMEN: Soft. EXTREMITIES: 1+ pitting edema. LABORATORY DATA: Today's hemoglobin and hematocrit 8.4 and 24.8, white count 9.8, platelet count 82,000. Today's SMA-7 is within normal limits except for BUN and creatinine of 22 and 3.7 respectively. Calcium 8.1. The patient was evaluated by Dr. De La Rosa, the surgeon for questionable abscess in the antecubital area who recommended warm compresses and no surgical intervention. Awaiting resolution of the hematoma over time. ASSESSMENT: 1. Necrotizing glomerulonephritis and enteritis. 2. Pneumonia. 3. Anemia and thrombocytopenia. 4. Chronic atrial fibrillation. 5. Left arm hematoma. 6. Segmental hypokinesis over the mid septum. 7. End-stage renal disease. RECOMMENDATIONS: Continue albuterol inhaler four times a day, Flomax 0.4 mg once a day, Mucinex LA 1200 mg twice a day possible two tablets , Procrit 14,000 units subcutaneously TTS, Toprol-XL 25 mg once a day. The patient will undergo hemodialysis today. Kali Moran MD
--- NOTE | 2018-04-18 16:28 | CP.PCM.PN ---
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 extra session tomorrow due to fluid overload s/p plasmapharesis 4 session, held next pharesis due to decreasing Hct and Platelet counts. d/w RN s/p pulse steroids and rituxan (04/05/18). continue with prednisone 60 mg/day. PCP prophylaxis with atovaquone added will d/w heme about next dose of rituxan (likely soon, 2 weeks after initial dose) Hypertension control with meds as ordered. Patient not on ACEI/ARB due to QUINTON Monitor Input/Output, daily weights and renal function with basic metabolic panel continue with epogen as increased and nephrovite. PRBC as needed for anemia continue with weekly Vit D d/w IR that likely pt will need longer term HD and will need permacath placement Dose meds/antibiotics for reduced GFR. Avoid fleets enema/magnesium based laxatives. Avoid nephrotoxins/NSAIDs/ iodinated contrast (unless needed emergently) Glycemic control Further work up for as per primary team Thanks for allowing me to participate in care of your patient. Will follow patient with you. Please call if any Qs. had d/w team Dr Dominguez Nix Office: [phone] Subjective: Noted events overnight. Patients feels okay. Denies chest pain, palpitation, no shortness of breath, leg swelling. All other negative Physical Examination: General Appearance: Comfortable, in no acute respiratory distress, co-operative . ill appearing Vitals reviewed and noted as below Head; Atraumatic, normocephalic ENT: no ulcers no thrush. Tongue is midline. Oropharynx: no rash or ulcers. EYES: Pupils are equal, round and reactive to light accommodation. Eye muscles and extraocular movement intact. Sclera is anicteric. Neck; supple no lymphadenopathy, no thyromegaly or bruit Lungs: Normal respiratory rate/effort. Breath sounds bilateral decreased with rales Heart: Normal rate. s1s2 normal. No rub or gallop. Extremities: 2+ edema. No varicose veins Neurological: Patient is alert, awake and oriented to person, place and time. No focal deficit. Strength bilateral appropriate and equal Skin: Warm and dry. Normal turgor. No rash. Palpitation: Normal elasticity for age Abdomen: Abdomen is soft. Bowel sounds +. There is no abdominal tenderness, no guarding/rigidity no organomegaly Psych: lackl insight and normal affect/mood MSK: no joint tenderness or swelling. Digits and nails normal, no deformity : kidney or bladder not palpable Labs/imaging reviewed. Past medical history, past surgical history, family history, social history, allergy reviewed and noted as below Family hx: no hx of CKD. Rest non-contributory Objective - Vital Signs/Intake and Output Vital Signs (last 24 hours): Temp Pulse Resp BP Pulse Ox 98.2 F 104 H 18 135/77 99 04/18/18 15:45 04/18/18 15:45 04/18/18 15:45 04/18/18 15:45 04/18/18 15:45 - Medications Medications: Current Medications Acetaminophen (Tylenol 325mg Tab) 650 mg PO Q6H PRN PRN Reason: Fever >100.4 F Acetaminophen (Tylenol 325mg Tab) 650 mg PO Q6 PRN PRN Reason: Pain, moderate (4-7) Last Admin: 04/14/18 20:49 Dose: 650 mg Albuterol/Ipratropium (Duoneb 3 Mg/0.5 Mg (3 Ml) Ud) 3 ml INH RQID [facility] Last Admin: 04/18/18 15:15 Dose: 3 ml Atovaquone (Mepron) 750 mg PO BIDWM [facility] PRN Reason: Protocol Calcium Acetate (Phoslo) 1,334 mg PO WM [facility] Last Admin: 04/18/18 13:22 Dose: Not Given Epoetin Charles (Procrit) 14,000 unit IV MWF [facility] Finasteride (Proscar) 5 mg PO DAILY [facility] Last Admin: 04/17/18 08:07 Dose: 5 mg Fluticasone Propionate (Flonase) 1 spr [facility] DAILY PRN PRN Reason: Nasal congestion Guaifenesin (Mucinex La) 1,200 mg PO Q12 [facility] Last Admin: 04/18/18 09:15 Dose: Not Given Metoprolol Succinate (Toprol Xl) 25 mg PO DAILY [facility] Last Admin: 04/17/18 08:04 Dose: 25 mg Pantoprazole Sodium (Protonix Ec Tab) 40 mg PO DAILY [facility] Last Admin: 04/17/18 08:05 Dose: 40 mg Prednisone (Prednisone Tab) 60 mg PO DAILY [facility] Last Admin: 04/17/18 08:06 Dose: 60 mg Tamsulosin HCl (Flomax) 0.4 mg PO QPM [facility] Last Admin: 04/17/18 18:52 Dose: 0.4 mg Vitamin B Complex/Vit C/Folic Acid (Nephro-Jj) 1 tab PO DAILY [facility] Last Admin: 04/17/18 08:05 Dose: 1 tab - Labs Labs: 04/17/18 06:10 04/17/18 06:10 PT 16.2 Seconds (9.8-13.1) H 04/14/18 09:53 INR 1.5 04/14/18 09:53 APTT 29.7 Seconds (25.6-37.1) 04/14/18 09:53
[2018-04-18] MEDS: Atovaquone 750 mg/5 ml Susp UD PO SCH ×2 (17:50→18:19)
--- NOTE | 2018-04-18 22:34 | CP.PCM.PN ---
Subjective - Date & Time of Evaluation Date of Evaluation: 04/18/18 Time of Evaluation: 20:00 - Subjective Subjective: No complaints Discussed with renal about repeat Rituxan dosing. Objective - Vital Signs/Intake and Output Vital Signs (last 24 hours): Temp Pulse Resp BP Pulse Ox 98.3 F 73 18 153/90 H 98 04/18/18 20:09 04/18/18 20:09 04/18/18 20:09 04/18/18 20:09 04/18/18 20:09 - Medications Medications: Current Medications Acetaminophen (Tylenol 325mg Tab) 650 mg PO Q6H PRN PRN Reason: Fever >100.4 F Acetaminophen (Tylenol 325mg Tab) 650 mg PO Q6 PRN PRN Reason: Pain, moderate (4-7) Last Admin: 04/14/18 20:49 Dose: 650 mg Albuterol/Ipratropium (Duoneb 3 Mg/0.5 Mg (3 Ml) Ud) 3 ml INH RQID [facility] Last Admin: 04/18/18 19:06 Dose: 3 ml Atovaquone (Mepron) 750 mg PO BIDWM [facility] PRN Reason: Protocol Last Admin: 04/18/18 18:19 Dose: Not Given Calcium Acetate (Phoslo) 1,334 mg PO WM [facility] Last Admin: 04/18/18 18:05 Dose: 1,334 mg Epoetin Charles (Procrit) 14,000 unit IV MWF [facility] Finasteride (Proscar) 5 mg PO DAILY [facility] Last Admin: 04/18/18 18:04 Dose: 5 mg Fluticasone Propionate (Flonase) 1 spr [place] DAILY PRN PRN Reason: Nasal congestion Guaifenesin (Mucinex La) 1,200 mg PO Q12 [facility] Last Admin: 04/18/18 21:23 Dose: Not Given Metoprolol Succinate (Toprol Xl) 25 mg PO DAILY [facility] Last Admin: 04/18/18 09:25 Dose: 25 mg Pantoprazole Sodium (Protonix Ec Tab) 40 mg PO DAILY [facility] Last Admin: 04/18/18 09:05 Dose: Not Given Prednisone (Prednisone Tab) 60 mg PO DAILY [facility] Last Admin: 04/18/18 18:07 Dose: 60 mg Tamsulosin HCl (Flomax) 0.4 mg PO QPM [facility] Last Admin: 04/18/18 18:07 Dose: 0.4 mg Vitamin B Complex/Vit C/Folic Acid (Nephro-Jj) 1 tab PO DAILY [facility] Last Admin: 04/18/18 09:09 Dose: 1 tab - Labs Labs: 04/17/18 06:10 04/17/18 06:10 PT 16.2 Seconds (9.8-13.1) H 04/14/18 09:53 INR 1.5 04/14/18 09:53 APTT 29.7 Seconds (25.6-37.1) 04/14/18 09:53 - Head Exam Head Exam: ATRAUMATIC - Eye Exam Eye Exam: Normal appearance - ENT Exam ENT Exam: Mucous Membranes Dry - Respiratory Exam Respiratory Exam: NORMAL BREATHING PATTERN - Cardiovascular Exam Cardiovascular Exam: +S1, +S2 - GI/Abdominal Exam GI & Abdominal Exam: Normal Bowel Sounds - Extremities Exam Extremities Exam: Pedal Edema Assessment and Plan (1) Anemia Assessment & Plan: jules deficiency s/p IV iron anemia of CKD on Procrit per renal s/p transfusion support transfusion support PRN Status: Acute
[2018-04-18 22:50] LABS: BASO % 0.5 % (0.0-2.0); EOS % 0.3 % (0.0-4.0); HEMOGLOBIN 7.9 g/dL (12.0-18.0); LYMPH # 0.2 K/uL (1.0-4.3); LYMPH % 2.4 % (20.0-40.0); MEAN CELL VOLUME 87.3 fl (80.0-94.0); MEAN CORPUSCULAR HEMOGLOBIN 29.2 pg (27.0-31.0); MEAN CORPUSCULAR HGB CONC 33.4 g/dL (33.0-37.0); MONO # 0.3 K/uL (0.0-0.8); MONO % 3.8 % (0.0-10.0); NRBC % 0.1 % (0.0-0.0); PLATELET COUNT 108 K/uL (130-400); RBC 2.71 Mil/uL (4.40-5.90); RED CELL DISTRIBUTION WIDTH 27.9 % (11.5-14.5); WHITE BLOOD COUNT 7.5 K/uL (4.8-10.8)
[2018-04-18 23:24] LABS: LYMPHOCYTE 1 % (20-50); MONOCYTE 1 % (0-10); NEUTROPHIL 98 % (42-75); PLATELET ESTIMATE DECREASED (NORMAL); TOTAL CELLS COUNTED 100
[2018-04-18 23:25] LABS: ANISOCYTOSIS MODERATE; OVALOCYTES SLIGHT; TARGET CELLS SLIGHT; TEARDROP CELLS SLIGHT
[2018-04-18 23:27] LABS: STOMATOCYTES SLIGHT
[2018-04-18] MEDS: Epoetin Alfa 20000 UNIT/ML Inj IV SCH (23:42)
[2018-04-19] MEDS: Albuterol-Ipratrop 3 mg / 0.5 (3 ml) UD INH SCH ×4 (07:01→19:13)
[2018-04-19] MEDS: Pantoprazole 40 mg EC Tab PO SCH (08:35)
[2018-04-19] MEDS: Atovaquone 750 mg/5 ml Susp UD PO SCH ×2 (08:38→17:51)
[2018-04-19] MEDS: guaiFENesin 600 mg ER Tab PO SCH ×2 (08:39→21:34)
[2018-04-19] MEDS: Metoprolol Succinate 25 mg XL Tab PO SCH ×3 (08:42→21:34)
[2018-04-19] MEDS: Multivitamin Vitamin B Complex (Nephro-Vite) Tab PO SCH (08:44)
[2018-04-19] MEDS ORDERED: ceFAZolin 2 GM in Sodium Chloride 0.9% 100 ML IVPB SCH (09:00)
--- NOTE | 2018-04-19 10:23 | CP.PCM.PN ---
Subjective - Date & Time of Evaluation Date of Evaluation: 04/18/18 Time of Evaluation: 11:00 - Subjective Subjective: Patient is fairly stable Has better appetite More conversant On IV antibiotics Noted tachycardia BP has been stable. Objective - Vital Signs/Intake and Output Vital Signs (last 24 hours): Temp Pulse Resp BP Pulse Ox 97.8 F 128 H 20 134/86 98 04/19/18 08:00 04/19/18 08:42 04/19/18 08:00 04/19/18 08:42 04/19/18 08:00 - Medications Medications: Current Medications Acetaminophen (Tylenol 325mg Tab) 650 mg PO Q6H PRN PRN Reason: Fever >100.4 F Acetaminophen (Tylenol 325mg Tab) 650 mg PO Q6 PRN PRN Reason: Pain, moderate (4-7) Last Admin: 04/14/18 20:49 Dose: 650 mg Albuterol/Ipratropium (Duoneb 3 Mg/0.5 Mg (3 Ml) Ud) 3 ml INH RQID [facility] Last Admin: 04/19/18 07:01 Dose: 3 ml Atovaquone (Mepron) 750 mg PO BIDWM [facility] PRN Reason: Protocol Last Admin: 04/19/18 08:38 Dose: Not Given Calcium Acetate (Phoslo) 1,334 mg PO WM [facility] Last Admin: 04/19/18 07:45 Dose: Not Given Epoetin Charles (Procrit) 14,000 unit IV MWF [facility] Last Admin: 04/18/18 23:42 Dose: 14,000 unit Finasteride (Proscar) 5 mg PO DAILY [facility] Last Admin: 04/19/18 08:43 Dose: 5 mg Fluticasone Propionate (Flonase) 1 spr [place] DAILY PRN PRN Reason: Nasal congestion Guaifenesin (Mucinex La) 1,200 mg PO Q12 [facility] Last Admin: 04/19/18 08:39 Dose: Not Given Metoprolol Tartrate (Lopressor) 50 mg PO Q12 [facility] Pantoprazole Sodium (Protonix Ec Tab) 40 mg PO DAILY [facility] Last Admin: 04/19/18 08:35 Dose: Not Given Prednisone (Prednisone Tab) 60 mg PO DAILY [facility] Last Admin: 04/19/18 08:44 Dose: 60 mg Tamsulosin HCl (Flomax) 0.4 mg PO QPM [facility] Last Admin: 08/20/18 18:07 Dose: 0.4 mg Vitamin B Complex/Vit C/Folic Acid (Nephro-Jj) 1 tab PO DAILY [facility] Last Admin: 04/19/18 08:44 Dose: 1 tab - Labs Labs: 04/18/18 22:30 04/17/18 06:10 PT 16.2 Seconds (9.8-13.1) H 04/14/18 09:53 INR 1.5 04/14/18 09:53 APTT 29.7 Seconds (25.6-37.1) 04/14/18 09:53 - Head Exam Head Exam: NORMAL INSPECTION - Eye Exam Eye Exam: Normal appearance - ENT Exam ENT Exam: Mucous Membranes Moist - Respiratory Exam Respiratory Exam: Clear to Ausculation Bilateral - Cardiovascular Exam Cardiovascular Exam: Tachycardia - GI/Abdominal Exam GI & Abdominal Exam: Normal Bowel Sounds Assessment and Plan (1) Pneumonia Status: Acute (2) Renal failure Status: Acute (3) Severe anemia Status: Acute (4) UTI (urinary tract infection) Status: Acute - Assessment and Plan (Free Text) Plan: Cont meds Cont tx Cont iv antibiotics Cont HD will adjust BP meds in am if persistent tachycardia
--- NOTE | 2018-04-19 10:26 | CP.PCM.PN ---
Subjective - Date & Time of Evaluation Date of Evaluation: 04/19/18 Time of Evaluation: 10:24 - Subjective Subjective: patient is much more awake Still tachy Has better appetite. Objective - Vital Signs/Intake and Output Vital Signs (last 24 hours): Temp Pulse Resp BP Pulse Ox 97.8 F 128 H 20 134/86 98 04/19/18 08:00 04/19/18 08:42 04/19/18 08:00 04/19/18 08:42 04/19/18 08:00 - Medications Medications: Current Medications Acetaminophen (Tylenol 325mg Tab) 650 mg PO Q6H PRN PRN Reason: Fever >100.4 F Acetaminophen (Tylenol 325mg Tab) 650 mg PO Q6 PRN PRN Reason: Pain, moderate (4-7) Last Admin: 04/14/18 20:49 Dose: 650 mg Albuterol/Ipratropium (Duoneb 3 Mg/0.5 Mg (3 Ml) Ud) 3 ml INH RQID [facility] Last Admin: 04/19/18 07:01 Dose: 3 ml Atovaquone (Mepron) 750 mg PO BIDWM [facility] PRN Reason: Protocol Last Admin: 04/19/18 08:38 Dose: Not Given Calcium Acetate (Phoslo) 1,334 mg PO WM [facility] Last Admin: 04/19/18 07:45 Dose: Not Given Epoetin Charles (Procrit) 14,000 unit IV MWF [facility] Last Admin: 04/18/18 23:42 Dose: 14,000 unit Finasteride (Proscar) 5 mg PO DAILY [facility] Last Admin: 04/19/18 08:43 Dose: 5 mg Fluticasone Propionate (Flonase) 1 spr [place] DAILY PRN PRN Reason: Nasal congestion Guaifenesin (Mucinex La) 1,200 mg PO Q12 [facility] Last Admin: 04/19/18 08:39 Dose: Not Given Metoprolol Tartrate (Lopressor) 50 mg PO Q12 [facility] Pantoprazole Sodium (Protonix Ec Tab) 40 mg PO DAILY [facility] Last Admin: 04/19/18 08:35 Dose: Not Given Prednisone (Prednisone Tab) 60 mg PO DAILY [facility] Last Admin: 04/19/18 08:44 Dose: 60 mg Tamsulosin HCl (Flomax) 0.4 mg PO QPM [facility] Last Admin: 04/18/18 18:07 Dose: 0.4 mg Vitamin B Complex/Vit C/Folic Acid (Nephro-Jj) 1 tab PO DAILY [facility] Last Admin: 04/19/18 08:44 Dose: 1 tab - Labs Labs: 04/18/18 22:30 04/17/18 06:10 PT 16.2 Seconds (9.8-13.1) H 04/14/18 09:53 INR 1.5 04/14/18 09:53 APTT 29.7 Seconds (25.6-37.1) 04/14/18 09:53 - Head Exam Head Exam: NORMAL INSPECTION - Eye Exam Eye Exam: Normal appearance - ENT Exam ENT Exam: Mucous Membranes Moist - Respiratory Exam Respiratory Exam: Clear to Ausculation Bilateral - Cardiovascular Exam Cardiovascular Exam: Tachycardia - GI/Abdominal Exam GI & Abdominal Exam: Normal Bowel Sounds - Neurological Exam Neurological Exam: Awake, CN II-XII Intact - Psychiatric Exam Psychiatric exam: Normal Affect Assessment and Plan (1) Pneumonia Status: Acute (2) Renal failure Status: Acute (3) Severe anemia Status: Acute (4) UTI (urinary tract infection) Status: Acute - Assessment and Plan (Free Text) Plan: Cont meds increase metoprolol to 50 bid cont tx cont HD.
--- NOTE | 2018-04-19 11:07 | CP.PCM.PN ---
Subjective - Date & Time of Evaluation Date of Evaluation: 04/19/18 Time of Evaluation: 07:00 - Subjective Subjective: MORE AWAKE NAD IV RX ORDERED Objective - Vital Signs/Intake and Output Vital Signs (last 24 hours): Temp Pulse Resp BP Pulse Ox 97.8 F 128 H 20 134/86 98 04/19/18 08:00 04/19/18 08:42 04/19/18 08:00 04/19/18 08:42 04/19/18 08:00 - Medications Medications: Current Medications Acetaminophen (Tylenol 325mg Tab) 650 mg PO Q6H PRN PRN Reason: Fever >100.4 F Acetaminophen (Tylenol 325mg Tab) 650 mg PO Q6 PRN PRN Reason: Pain, moderate (4-7) Last Admin: 04/14/18 20:49 Dose: 650 mg Albuterol/Ipratropium (Duoneb 3 Mg/0.5 Mg (3 Ml) Ud) 3 ml INH RQID [facility] Last Admin: 04/19/18 11:01 Dose: 3 ml Atovaquone (Mepron) 750 mg PO BIDWM [facility] PRN Reason: Protocol Last Admin: 04/19/18 08:38 Dose: Not Given Calcium Acetate (Phoslo) 1,334 mg PO WM [facility] Last Admin: 04/19/18 07:45 Dose: Not Given Epoetin Charles (Procrit) 14,000 unit IV MWF [facility] Last Admin: 04/18/18 23:42 Dose: 14,000 unit Finasteride (Proscar) 5 mg PO DAILY [facility] Last Admin: 04/19/18 08:43 Dose: 5 mg Fluticasone Propionate (Flonase) 1 spr [facility] DAILY PRN PRN Reason: Nasal congestion Guaifenesin (Mucinex La) 1,200 mg PO Q12 [facility] Last Admin: 04/19/18 08:39 Dose: Not Given Cefazolin Sodium 2 gm/ Sodium (Chloride) 100 mls @ 100 mls/hr IVPB QOTHERDAY [facility] PRN Reason: Protocol Vancomycin HCl 1 gm/ Sodium (Chloride) 250 mls @ 166.667 mls/hr IVPB QOTHERDAY [facility] PRN Reason: Protocol Metoprolol Tartrate (Lopressor) 50 mg PO Q12 [facility] Pantoprazole Sodium (Protonix Ec Tab) 40 mg PO DAILY [facility] Last Admin: 04/19/18 08:35 Dose: Not Given Prednisone (Prednisone Tab) 60 mg PO DAILY [facility] Last Admin: 04/19/18 08:44 Dose: 60 mg Tamsulosin HCl (Flomax) 0.4 mg PO QPM [facility] Last Admin: 04/18/18 18:07 Dose: 0.4 mg Vitamin B Complex/Vit C/Folic Acid (Nephro-Jj) 1 tab PO DAILY [facility] Last Admin: 04/19/18 08:44 Dose: 1 tab - Labs Labs: 04/18/18 22:30 04/17/18 06:10 PT 16.2 Seconds (9.8-13.1) H 04/14/18 09:53 INR 1.5 04/14/18 09:53 APTT 29.7 Seconds (25.6-37.1) 04/14/18 09:53 - Constitutional Appears: Non-toxic, Chronically Ill - Head Exam Head Exam: NORMOCEPHALIC - Eye Exam Eye Exam: PERRL - ENT Exam ENT Exam: Mucous Membranes Dry - Neck Exam Neck Exam: absent: Lymphadenopathy - Respiratory Exam Respiratory Exam: Decreased Breath Sounds - Cardiovascular Exam Cardiovascular Exam: REGULAR RHYTHM - GI/Abdominal Exam GI & Abdominal Exam: Distended, Soft - Rectal Exam Rectal Exam: Deferred - Exam Exam: NORMAL INSPECTION Assessment and Plan (1) A-fib Status: Acute (2) Acute on chronic renal failure Status: Acute (3) Altered mental status Status: Acute (4) Anemia Status: Acute (5) Atrial enlargement, bilateral Status: Acute (6) Enlarged RV (right ventricle) Status: Acute (7) Pulmonary infiltrate Status: Acute (8) Pulmonary nodules/lesions, multiple Status: Acute (9) UTI (urinary tract infection) Status: Acute - Assessment and Plan (Free Text) Assessment: CONT VANCO/ANCEF ATOVAQUONE FOLLOW UP DR KELLEY
--- NOTE | 2018-04-19 12:26 | CP.PCM.PN ---
Subjective - Date & Time of Evaluation Date of Evaluation: 04/19/18 Time of Evaluation: 11:00 - Subjective Subjective: More alert today Objective - Vital Signs/Intake and Output Vital Signs (last 24 hours): Temp Pulse Resp BP Pulse Ox 97.8 F 128 H 20 134/86 98 04/19/18 08:00 04/19/18 08:42 04/19/18 08:00 04/19/18 08:42 04/19/18 08:00 - Medications Medications: Current Medications Acetaminophen (Tylenol 325mg Tab) 650 mg PO Q6H PRN PRN Reason: Fever >100.4 F Acetaminophen (Tylenol 325mg Tab) 650 mg PO Q6 PRN PRN Reason: Pain, moderate (4-7) Last Admin: 04/14/18 20:49 Dose: 650 mg Albuterol/Ipratropium (Duoneb 3 Mg/0.5 Mg (3 Ml) Ud) 3 ml INH RQID [facility] Last Admin: 04/19/18 11:01 Dose: 3 ml Atovaquone (Mepron) 750 mg PO BIDWM [facility] PRN Reason: Protocol Last Admin: 04/19/18 08:38 Dose: Not Given Calcium Acetate (Phoslo) 1,334 mg PO WM [facility] Last Admin: 04/19/18 07:45 Dose: Not Given Epoetin Charles (Procrit) 14,000 unit IV MWF [facility] Last Admin: 04/18/18 23:42 Dose: 14,000 unit Finasteride (Proscar) 5 mg PO DAILY [facility] Last Admin: 04/19/18 08:43 Dose: 5 mg Fluticasone Propionate (Flonase) 1 spr [facility] DAILY PRN PRN Reason: Nasal congestion Guaifenesin (Mucinex La) 1,200 mg PO Q12 [facility] Last Admin: 04/19/18 08:39 Dose: Not Given Vancomycin HCl 1 gm/ Sodium (Chloride) 250 mls @ 166.667 mls/hr IVPB QOTHERDAY [facility] PRN Reason: Protocol Cefazolin Sodium/Dextrose (Ancef Iv 2 Gm Duplex) 2 gm in 50 mls @ 50 mls/hr IVPB QOTHERDAY [facility] PRN Reason: Protocol Metoprolol Tartrate (Lopressor) 50 mg PO Q12 [facility] Pantoprazole Sodium (Protonix Ec Tab) 40 mg PO DAILY [facility] Last Admin: 04/19/18 08:35 Dose: Not Given Prednisone (Prednisone Tab) 60 mg PO DAILY [facility] Last Admin: 04/19/18 08:44 Dose: 60 mg Tamsulosin HCl (Flomax) 0.4 mg PO QPM [facility] Last Admin: 04/18/18 18:07 Dose: 0.4 mg Vitamin B Complex/Vit C/Folic Acid (Nephro-Jj) 1 tab PO DAILY [facility] Last Admin: 04/19/18 08:44 Dose: 1 tab - Labs Labs: 04/18/18 22:30 04/17/18 06:10 PT 16.2 Seconds (9.8-13.1) H 04/14/18 09:53 INR 1.5 04/14/18 09:53 APTT 29.7 Seconds (25.6-37.1) 04/14/18 09:53 - Head Exam Head Exam: ATRAUMATIC - Eye Exam Eye Exam: Normal appearance - ENT Exam ENT Exam: Mucous Membranes Dry - Respiratory Exam Respiratory Exam: NORMAL BREATHING PATTERN - Cardiovascular Exam Cardiovascular Exam: +S1, +S2 - GI/Abdominal Exam GI & Abdominal Exam: Normal Bowel Sounds - Extremities Exam Extremities Exam: Pedal Edema Assessment and Plan (1) Anemia Assessment & Plan: iron deficiency s/p IV iron anemia of CKD on Procrit per renal s/p transfusion support transfusion support PRN Status: Acute
[2018-04-19] MEDS ORDERED: Midazolam 2 MG/2 ML VIAL ONE (13:23)
[2018-04-19] MEDS ORDERED: Lidocaine 1% 5ml Abboject IV ONE (13:39)
--- NOTE | 2018-04-19 14:37 | PCM.SURG1 ---
Surgeon's Initial Post Op Note - Surgeon's Notes Surgeon: Prieto Casillas MD [employer] Parts: NONE Type of Anesthesia: IV Sedation Pre-Operative Diagnosis: Renal failure Operative Findings: Non tunneled right IJV HD catheter in place. Post-Operative Diagnosis: Renal failure Operation Performed: Placement of a right 19 cm tunneled HD catheter. Specimen/Specimens Removed: NONE Estimated Blood Loss: EBL {In ML}: 2 Blood Products Given: N/A Drains Used: No Drains Post-Op Condition: Fair Date of Surgery/Procedure: 04/19/18 Time of Surgery/Procedure: 14:00
--- NOTE | 2018-04-19 14:46 | VASCULAR ---
PROCEDURE: Date of procedure: 04/19/2018 Procedure: 1. Conversion of right non tunneled IJ tunneled hemodialysis catheter to a tunneled HD catheter, CPT 06930 Medications: 8cc 1 percent lidocaine, patient also received IV sedation along with physiologic monitoring by the anesthesiologist Radiation: 1.06 MGy Fluoroscopic time:6.2 seconds HISTORY: End-stage renal disease TECHNIQUE: Following informed consent and procedure time-out, the patient was placed supine on the interventional table. The existing right IJ non-tunneled hemodialysis catheter surrounding skin were prepped and draped in the usual sterile fashion. Spot fluoroscopic image showed a right IJ catheter in place. The existing catheter was then removed over a guidewire for a peel-away sheath. A 19 centimeter cuff to tip hemodialysis catheter was then tunneled under the skin and out the venotomy site. The catheter was then advanced through a peel-away sheath to. The catheter was tested and has adequate blood flow for dialysis. The catheter was flushed and locked with heparin per specified amount. The catheter secured to the skin with a 0 silk suture. IMPRESSION: Exchange of right IJ non tunneled hemodialysis catheter for a tunneled hemodialysis catheter via same venous access. The position of a new tunneled hemodialysis catheter is confirmed fluoroscopic image and is within the superior vena cava. The catheter is functional and ready for use.
--- NOTE | 2018-04-19 16:45 | CP.PCM.PN ---
Subjective - Date & Time of Evaluation Date of Evaluation: 04/19/18 Time of Evaluation: 16:45 - Subjective Subjective: PT S/P PERMACATH. NO CP OR SOB. PTS HR IS AFIB AT 125 BPM. Objective - Vital Signs/Intake and Output Vital Signs (last 24 hours): Temp Pulse Resp BP Pulse Ox 97.7 F 126 H 18 153/91 H 97 04/19/18 15:58 04/19/18 15:58 04/19/18 15:58 04/19/18 15:58 04/19/18 15:58 - Medications Medications: Current Medications Acetaminophen (Tylenol 325mg Tab) 650 mg PO Q6H PRN PRN Reason: Fever >100.4 F Acetaminophen (Tylenol 325mg Tab) 650 mg PO Q6 PRN PRN Reason: Pain, moderate (4-7) Last Admin: 04/14/18 20:49 Dose: 650 mg Albuterol/Ipratropium (Duoneb 3 Mg/0.5 Mg (3 Ml) Ud) 3 ml INH RQID [facility] Last Admin: 04/19/18 15:41 Dose: 3 ml Atovaquone (Mepron) 750 mg PO BIDWM [facility] PRN Reason: Protocol Last Admin: 04/19/18 08:38 Dose: Not Given Calcium Acetate (Phoslo) 1,334 mg PO WM [facility] Last Admin: 04/19/18 12:51 Dose: Not Given Epoetin Charles (Procrit) 14,000 unit IV MWF [facility] Last Admin: 04/18/18 23:42 Dose: 14,000 unit Finasteride (Proscar) 5 mg PO DAILY [facility] Last Admin: 04/19/18 08:43 Dose: 5 mg Fluticasone Propionate (Flonase) 1 spr [place] DAILY PRN PRN Reason: Nasal congestion Guaifenesin (Mucinex La) 1,200 mg PO Q12 [facility] Last Admin: 04/19/18 08:39 Dose: Not Given Vancomycin HCl 1 gm/ Sodium (Chloride) 250 mls @ 166.667 mls/hr IVPB QOTHERDAY [facility] PRN Reason: Protocol Cefazolin Sodium/Dextrose (Ancef Iv 2 Gm Duplex) 2 gm in 50 mls @ 50 mls/hr IVPB QOTHERDAY [facility] PRN Reason: Protocol Metoprolol Tartrate (Lopressor) 50 mg PO Q12 [facility] Pantoprazole Sodium (Protonix Ec Tab) 40 mg PO DAILY [facility] Last Admin: 04/19/18 08:35 Dose: Not Given Prednisone (Prednisone Tab) 60 mg PO DAILY [facility] Last Admin: 04/19/18 08:44 Dose: 60 mg Tamsulosin HCl (Flomax) 0.4 mg PO QPM [facility] Last Admin: 04/18/18 18:07 Dose: 0.4 mg Vitamin B Complex/Vit C/Folic Acid (Nephro-Jj) 1 tab PO DAILY [facility] Last Admin: 04/19/18 08:44 Dose: 1 tab - Labs Labs: 04/18/18 22:30 04/17/18 06:10 PT 16.2 Seconds (9.8-13.1) H 04/14/18 09:53 INR 1.5 04/14/18 09:53 APTT 29.7 Seconds (25.6-37.1) 04/14/18 09:53 - Constitutional Appears: Well - Head Exam Head Exam: ATRAUMATIC, NORMAL INSPECTION, NORMOCEPHALIC - Eye Exam Eye Exam: EOMI, Normal appearance, PERRL. absent: Conjunctival injection, Nystagmus, Periorbital swelling, Periorbital tenderness, Scleral icterus Pupil Exam: NORMAL ACCOMODATION, PERRL - ENT Exam ENT Exam: Mucous Membranes Moist, Normal Exam. absent: Mucous Membranes Dry, Normal External Ear Exam, Normal Oropharynx, TM's Normal Bilaterally - Neck Exam Neck Exam: Full ROM, Normal Inspection. absent: Lymphadenopathy, Meningismus, Tenderness, Thyromegaly - Respiratory Exam Respiratory Exam: Decreased Breath Sounds, Rales, NORMAL BREATHING PATTERN. absent: Accessory Muscle Use, Chest Wall Tenderness, Clear to Ausculation Bilateral, Prolonged Expiratory Phase, Rhonchi, Wheezes, Respiratory Distress, Stridor - Cardiovascular Exam Cardiovascular Exam: Tachycardia, Irregular Rhythm, +S1, +S2, Murmur. absent: Bradycardia, Clicks, Diastolic murmur, Gallop, REGULAR RHYTHM, JVD, RRR, Rubs, + S4 - GI/Abdominal Exam GI & Abdominal Exam: Soft, Normal Bowel Sounds. absent: Bruit, Distended, Firm , Guarding, Rigid, Tenderness, Diminished Bowel Sounds, Hernia, Hyperactive Bowel Sounds, Hypoactive Bowel Sounds, Organomegaly, Pulsatile Mass, Rebound, Mass - Rectal Exam Rectal Exam: Deferred - Extremities Exam Extremities Exam: Full ROM, Normal Capillary Refill, Pedal Edema. absent: Calf Tenderness, Joint Swelling, Tenderness - Back Exam Back Exam: NORMAL INSPECTION. absent: CVA tenderness (L), CVA tenderness (R), Full ROM, muscle spasm, paraspinal tenderness, rash noted, tenderness, vertebral tenderness - Neurological Exam Neurological Exam: Alert, Awake, CN II-XII Intact, Oriented x3 - Psychiatric Exam Psychiatric exam: Normal Affect, Normal Mood - Skin Skin Exam: Dry, Intact, Normal Color, Warm Assessment and Plan (1) Acute renal failure (ARF) Status: Acute (2) Enlarged RV (right ventricle) Status: Acute (3) Atrial enlargement, bilateral Status: Acute (4) A-fib Status: Acute (5) Volume overload Status: Acute (6) Biliary pleural effusion Status: Acute - Assessment and Plan (Free Text) Plan: PT RECIEVED EXTRA HD TODAY. WOULD CONTINUE VOLUME REMOVAL. INCREASED BB'S TO TOPROL XL 25 Q12. CONSIDER D/C NEBS OR MAKING PRN.
[2018-04-19] MEDS: Levalbuterol 1.25 MG/3 ML Inhal Soln UD INH SCH (21:58)
[2018-04-20] MEDS: Levalbuterol 1.25 MG/3 ML Inhal Soln UD INH SCH ×2 (01:00→07:55)
[2018-04-20 01:03] LABS: CALCIUM 8.7 mg/dL (8.4-10.2)
[2018-04-20] MEDS: ceFAZolin IV 2 gm in Dextrose 2 GM/50 ML BAG IVPB SCH (02:51)
[2018-04-20] MEDS ORDERED: Levalbuterol 1.25 MG/3 ML Inhal Soln UD INH PRN (08:32)
[2018-04-20] MEDS: Multivitamin Vitamin B Complex (Nephro-Vite) Tab PO SCH (08:44)
[2018-04-20] MEDS: guaiFENesin 600 mg ER Tab PO SCH ×2 (08:44→21:11)
[2018-04-20] MEDS: Pantoprazole 40 mg EC Tab PO SCH (08:44)
[2018-04-20] MEDS: Metoprolol Succinate 25 mg XL Tab PO SCH (08:45)
--- NOTE | 2018-04-20 09:46 | CP.PCM.PN ---
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 s/p pulse steroids and rituxan (04/05/18). continue with prednisone 60 mg/day. PCP prophylaxis with atovaquone - apparently this medication not being covered by rehab asked primary team to d/w ID re: alternative for PCP prophylaxis given renal failure and stilll possibility of recovery would avoid bactrim as it may raise cr and make distinguishing improvement in renal function difficult discussed w/ pharmacy he is approved for 2nd dose of ritux- discussed w/ hematology to order 1 gram bp stable holding chas arb continue phos binder s/p permacath continue with epogen and nephrovite. PRBC as needed for anemia continue with weekly Vit D dose abx for ESRD discussed w/ social problems specialist and primary team Subjective: seen and examined denies n/v feeling better Physical Examination: General Appearance: Comfortable, in no acute respiratory distress, co-operative . ill appearing Vitals reviewed and noted as below Head; Atraumatic, normocephalic ENT: no ulcers no thrush. Tongue is midline. Oropharynx: no rash or ulcers. EYES: Pupils are equal, round and reactive to light accommodation. Eye muscles and extraocular movement intact. Sclera is anicteric. Neck; supple no lymphadenopathy, no thyromegaly or bruit Lungs: Normal respiratory rate/effort. Breath sounds bilateral decreased with rales Heart: Normal rate. s1s2 normal. No rub or gallop. Extremities: 2+ edema. No varicose veins Neurological: Patient is alert, awake and oriented to person, place and time. No focal deficit. Strength bilateral appropriate and equal Skin: Warm and dry. Normal turgor. No rash. Palpitation: Normal elasticity for age Abdomen: Abdomen is soft. Bowel sounds +. There is no abdominal tenderness, no guarding/rigidity no organomegaly Psych: normal affect MSK: no joint tenderness or swelling. Digits and nails normal, no deformity : kidney or bladder not palpable Labs/imaging reviewed. Past medical history, past surgical history, family history, social history, allergy reviewed and noted as below Family hx: no hx of CKD. Rest non-contributory Objective - Vital Signs/Intake and Output Vital Signs (last 24 hours): Temp Pulse Resp BP Pulse Ox 98 F 103 H 20 151/79 H 97 04/20/18 08:00 04/20/18 08:45 04/20/18 08:00 04/20/18 08:45 04/20/18 08:00 - Medications Medications: Current Medications Acetaminophen (Tylenol 325mg Tab) 650 mg PO Q6H PRN PRN Reason: Fever >100.4 F Acetaminophen (Tylenol 325mg Tab) 650 mg PO Q6 PRN PRN Reason: Pain, moderate (4-7) Last Admin: 04/14/18 20:49 Dose: 650 mg Atovaquone (Mepron) 750 mg PO BIDWM [facility] PRN Reason: Protocol Calcium Acetate (Phoslo) 1,334 mg PO WM [facility] Last Admin: 04/20/18 08:44 Dose: 1,334 mg Epoetin Charles (Procrit) 14,000 unit IV MWF [facility] Last Admin: 04/18/18 23:42 Dose: 14,000 unit Finasteride (Proscar) 5 mg PO DAILY [facility] Last Admin: 04/20/18 08:44 Dose: 5 mg Fluticasone Propionate (Flonase) 1 spr [place] DAILY PRN PRN Reason: Nasal congestion Guaifenesin (Mucinex La) 1,200 mg PO Q12 [facility] Last Admin: 04/20/18 08:44 Dose: Not Given Vancomycin HCl 1 gm/ Sodium (Chloride) 250 mls @ 166.667 mls/hr IVPB QOTHERDAY [facility] PRN Reason: Protocol Last Admin: 04/20/18 02:06 Dose: 166.667 mls/hr Cefazolin Sodium/Dextrose (Ancef Iv 2 Gm Duplex) 2 gm in 50 mls @ 50 mls/hr IVPB QOTHERDAY [facility] PRN Reason: Protocol Last Admin: 04/20/18 02:51 Dose: 50 mls/hr Levalbuterol HCl (Xopenex) 1.25 mg INH RQ4 PRN PRN Reason: Shortness of Breath Metoprolol Succinate (Toprol Xl) 25 mg PO Q12 [facility] Last Admin: 04/20/18 08:45 Dose: 25 mg Pantoprazole Sodium (Protonix Ec Tab) 40 mg PO DAILY [facility] Last Admin: 04/20/18 08:44 Dose: 40 mg Prednisone (Prednisone Tab) 60 mg PO DAILY [facility] Last Admin: 04/20/18 08:44 Dose: 60 mg Tamsulosin HCl (Flomax) 0.4 mg PO QPM [facility] Last Admin: 04/19/18 17:50 Dose: 0.4 mg Vitamin B Complex/Vit C/Folic Acid (Nephro-Jj) 1 tab PO DAILY [facility] Last Admin: 04/20/18 08:44 Dose: 1 tab - Labs Labs: 04/18/18 22:30 04/19/18 23:00 PT 16.2 Seconds (9.8-13.1) H 04/14/18 09:53 INR 1.5 04/14/18 09:53 APTT 29.7 Seconds (25.6-37.1) 04/14/18 09:53
[2018-04-20] MEDS: Atovaquone 750 mg/5 ml Susp UD PO SCH ×2 (10:30→17:30)
[2018-04-20] MEDS: Epoetin Alfa 20000 UNIT/ML Inj IV SCH (10:30)
--- NOTE | 2018-04-20 11:32 | CP.PCM.PN ---
Subjective - Date & Time of Evaluation Date of Evaluation: 04/20/18 Time of Evaluation: 10:30 - Subjective Subjective: Follow up of Pulmonary infiltrate Patient was seen and examined at bedside. Patient states he feels well this morning, but still having a productive cough associated with white sputum production. Afebrile. Still tachycardic, however improving. Denies chest pain, SOB at this evaluation. Patient had Hemodialysis started yesterday and finished early this morning. As per nurse report 3 L were removed. Patient tolerated HD well. Next dialysis scheduled for tomorrow. PE: Alert, and in no acute distress Breath sounds are present bilaterally, equally, diminished. No dullness present on percussion of the anterior chest wall. No rales, wheezing or rhonchi to auscultation. Lower extremity edema persistent, but stable Will discontinue Duoneb ignacia, and start Xopenex Q4 hours PRN Will repeat CXR AP single view Objective - Vital Signs/Intake and Output Vital Signs (last 24 hours): Temp Pulse Resp BP Pulse Ox 98 F 103 H 20 151/79 H 97 04/20/18 08:00 04/20/18 08:45 04/20/18 08:00 04/20/18 08:45 04/20/18 08:00 - Medications Medications: Current Medications Acetaminophen (Tylenol 325mg Tab) 650 mg PO Q6H PRN PRN Reason: Fever >100.4 F Acetaminophen (Tylenol 325mg Tab) 650 mg PO Q6 PRN PRN Reason: Pain, moderate (4-7) Last Admin: 04/14/18 20:49 Dose: 650 mg Atovaquone (Mepron) 750 mg PO BIDWM [facility] PRN Reason: Protocol Calcium Acetate (Phoslo) 1,334 mg PO WM [facility] Last Admin: 04/20/18 08:44 Dose: 1,334 mg Epoetin Charles (Procrit) 14,000 unit IV MWF [facility] Last Admin: 04/18/18 23:42 Dose: 14,000 unit Finasteride (Proscar) 5 mg PO DAILY [facility] Last Admin: 04/20/18 08:44 Dose: 5 mg Fluticasone Propionate (Flonase) 1 spr [place] DAILY PRN PRN Reason: Nasal congestion Guaifenesin (Mucinex La) 1,200 mg PO Q12 [facility] Last Admin: 04/20/18 08:44 Dose: Not Given Vancomycin HCl 1 gm/ Sodium (Chloride) 250 mls @ 166.667 mls/hr IVPB QOTHERDAY [facility] PRN Reason: Protocol Last Admin: 04/20/18 02:06 Dose: 166.667 mls/hr Cefazolin Sodium/Dextrose (Ancef Iv 2 Gm Duplex) 2 gm in 50 mls @ 50 mls/hr IVPB QOTHERDAY [facility] PRN Reason: Protocol Last Admin: 04/20/18 02:51 Dose: 50 mls/hr Levalbuterol HCl (Xopenex) 1.25 mg INH RQ4 PRN PRN Reason: Shortness of Breath Metoprolol Succinate (Toprol Xl) 25 mg PO Q12 [facility] Last Admin: 04/20/18 08:45 Dose: 25 mg Pantoprazole Sodium (Protonix Ec Tab) 40 mg PO DAILY [facility] Last Admin: 04/20/18 08:44 Dose: 40 mg Prednisone (Prednisone Tab) 60 mg PO DAILY [facility] Last Admin: 04/20/18 08:44 Dose: 60 mg Tamsulosin HCl (Flomax) 0.4 mg PO QPM [facility] Last Admin: 04/19/18 17:50 Dose: 0.4 mg Vitamin B Complex/Vit C/Folic Acid (Nephro-Jj) 1 tab PO DAILY [facility] Last Admin: 04/20/18 08:44 Dose: 1 tab - Labs Labs: 04/18/18 22:30 04/19/18 23:00 PT 16.2 Seconds (9.8-13.1) H 04/14/18 09:53 INR 1.5 04/14/18 09:53 APTT 29.7 Seconds (25.6-37.1) 04/14/18 09:53 Assessment and Plan (1) Pulmonary infiltrate Status: Acute
--- NOTE | 2018-04-20 12:34 | CP.PCM.PN ---
<Yash Hardy - Last Filed: 04/20/18 12:54> Subjective - Date & Time of Evaluation Date of Evaluation: 04/20/18 Time of Evaluation: 09:10 - Subjective Subjective: 77 y/o M reports feeling better than yesterday. Pt more awake, communicative in tamazight. Completing physical therapy. Had hemodialysis overnight. Pt afebrile with No acute events overnight. Objective - Vital Signs/Intake and Output Vital Signs (last 24 hours): Temp Pulse Resp BP Pulse Ox 98 F 103 H 20 151/79 H 97 04/20/18 08:00 04/20/18 08:45 04/20/18 08:00 04/20/18 08:45 04/20/18 08:00 - Medications Medications: Current Medications Acetaminophen (Tylenol 325mg Tab) 650 mg PO Q6H PRN PRN Reason: Fever >100.4 F Acetaminophen (Tylenol 325mg Tab) 650 mg PO Q6 PRN PRN Reason: Pain, moderate (4-7) Last Admin: 04/14/18 20:49 Dose: 650 mg Atovaquone (Mepron) 750 mg PO BIDWM [facility] PRN Reason: Protocol Calcium Acetate (Phoslo) 1,334 mg PO WM [facility] Last Admin: 04/20/18 12:08 Dose: 1,334 mg Epoetin Charles (Procrit) 14,000 unit IV MWF [facility] Last Admin: 04/18/18 23:42 Dose: 14,000 unit Finasteride (Proscar) 5 mg PO DAILY [facility] Last Admin: 04/20/18 08:44 Dose: 5 mg Fluticasone Propionate (Flonase) 1 spr [place] DAILY PRN PRN Reason: Nasal congestion Guaifenesin (Mucinex La) 1,200 mg PO Q12 [facility] Last Admin: 04/20/18 08:44 Dose: Not Given Vancomycin HCl 1 gm/ Sodium (Chloride) 250 mls @ 166.667 mls/hr IVPB QOTHERDAY [facility] PRN Reason: Protocol Last Admin: 04/20/18 02:06 Dose: 166.667 mls/hr Cefazolin Sodium/Dextrose (Ancef Iv 2 Gm Duplex) 2 gm in 50 mls @ 50 mls/hr IVPB QOTHERDAY [facility] PRN Reason: Protocol Last Admin: 08/22/18 02:51 Dose: 50 mls/hr Levalbuterol HCl (Xopenex) 1.25 mg INH RQ4 PRN PRN Reason: Shortness of Breath Metoprolol Succinate (Toprol Xl) 25 mg PO Q12 [facility] Last Admin: 04/20/18 08:45 Dose: 25 mg Pantoprazole Sodium (Protonix Ec Tab) 40 mg PO DAILY [facility] Last Admin: 04/20/18 08:44 Dose: 40 mg Prednisone (Prednisone Tab) 60 mg PO DAILY [facility] Last Admin: 04/20/18 08:44 Dose: 60 mg Tamsulosin HCl (Flomax) 0.4 mg PO QPM [facility] Last Admin: 04/19/18 17:50 Dose: 0.4 mg Vitamin B Complex/Vit C/Folic Acid (Nephro-Jj) 1 tab PO DAILY [facility] Last Admin: 04/20/18 08:44 Dose: 1 tab - Labs Labs: 04/18/18 22:30 04/19/18 23:00 PT 16.2 Seconds (9.8-13.1) H 04/14/18 09:53 INR 1.5 04/14/18 09:53 APTT 29.7 Seconds (25.6-37.1) 04/14/18 09:53 - Constitutional Appears: No Acute Distress - Head Exam Head Exam: NORMAL INSPECTION - Eye Exam Eye Exam: EOMI - ENT Exam ENT Exam: Mucous Membranes Dry - Neck Exam Neck Exam: Full ROM. absent: Meningismus - Respiratory Exam Respiratory Exam: NORMAL BREATHING PATTERN. absent: Rhonchi, Wheezes - Cardiovascular Exam Cardiovascular Exam: +S1, +S2 - GI/Abdominal Exam GI & Abdominal Exam: Soft. absent: Guarding, Tenderness - Neurological Exam Neurological Exam: Alert, Awake Assessment and Plan (1) Acute on chronic renal failure Status: Acute (2) Pulmonary infiltrate Status: Acute (3) Severe anemia Status: Acute - Assessment and Plan (Free Text) Assessment: 77 y/o m with a PMHx of HTN and BPH was admitted for managemetn of severe Anemia (Hgb 5.0 mg/dl), Acute on Chronic Renal Failure and A fib. Currently being evaluated for ?ANCA-vasculitis. --Perma cath placed by IR, Dr Casillas. --Pulmonology, Dr Sandoval, on board. 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 Will d/w Dr Marshall, ID. --Nephrology, Dr Bernabe, consulted. --Hematology, Dr Armas, consulted. --Continue management as ordered. <Timbo Moon - Last Filed: 04/21/18 16:36> Objective - Vital Signs/Intake and Output Vital Signs (last 24 hours): Temp Pulse Resp BP Pulse Ox 98.4 F 93 H 20 126/72 95 04/21/18 15:36 04/21/18 15:36 04/21/18 15:36 04/21/18 15:36 04/21/18 15:36 - Medications Medications: Current Medications Acetaminophen (Tylenol 325mg Tab) 650 mg PO Q6H PRN PRN Reason: Fever >100.4 F Acetaminophen (Tylenol 325mg Tab) 650 mg PO Q6 PRN PRN Reason: Pain, moderate (4-7) Last Admin: 04/14/18 20:49 Dose: 650 mg Calcium Acetate (Phoslo) 667 mg PO TIDCC [facility] Dapsone (Dapsone) 100 mg PO DAILY [facility] PRN Reason: Protocol Last Admin: 04/21/18 14:11 Dose: 100 mg Epoetin Charles (Procrit) 14,000 unit IV MWF [facility] Last Admin: 04/20/18 10:30 Dose: Not Given Finasteride (Proscar) 5 mg PO DAILY [facility] Last Admin: 04/21/18 14:12 Dose: 5 mg Fluticasone Propionate (Flonase) 1 spr [place] DAILY PRN PRN Reason: Nasal congestion Guaifenesin (Mucinex La) 1,200 mg PO Q12 [facility] Last Admin: 04/21/18 14:12 Dose: 1,200 mg Vancomycin HCl 1 gm/ Sodium (Chloride) 250 mls @ 166.667 mls/hr IVPB QOTHERDAY [facility] PRN Reason: Protocol Last Admin: 04/21/18 14:07 Dose: 166.667 mls/hr Cefazolin Sodium/Dextrose (Ancef Iv 2 Gm Duplex) 2 gm in 50 mls @ 50 mls/hr IVPB QOTHERDAY [facility] PRN Reason: Protocol Last Admin: 04/21/18 14:10 Dose: 50 mls/hr Rituximab 1,000 mg/ Sodium (Chloride) 350 mls @ 0 mls/hr IV ONCE ONE; As Directed PRN Reason: Protocol Stop: 04/21/18 11:55 Levalbuterol HCl (Xopenex) 1.25 mg INH RQ4 PRN PRN Reason: Shortness of Breath Metoprolol Succinate (Toprol Xl) 50 mg PO Q12 [facility] Last Admin: 04/21/18 14:11 Dose: 50 mg Pantoprazole Sodium (Protonix Ec Tab) 40 mg PO DAILY [facility] Last Admin: 04/21/18 14:13 Dose: 40 mg Prednisone (Prednisone Tab) 60 mg PO DAILY [facility] Last Admin: 04/21/18 14:12 Dose: 60 mg Tamsulosin HCl (Flomax) 0.4 mg PO QPM [facility] Last Admin: 04/20/18 18:00 Dose: Not Given Vitamin B Complex/Vit C/Folic Acid (Nephro-Jj) 1 tab PO DAILY [facility] Last Admin: 04/21/18 14:11 Dose: 1 tab - Labs Labs: 04/21/18 09:11 04/21/18 09:11 PT 16.2 Seconds (9.8-13.1) H 04/14/18 09:53 INR 1.5 04/14/18 09:53 APTT 29.7 Seconds (25.6-37.1) 04/14/18 09:53 Assessment and Plan (1) Pneumonia Status: Acute (2) Renal failure Status: Acute (3) Severe anemia Status: Acute (4) UTI (urinary tract infection) Status: Acute - Assessment and Plan (Free Text) Plan: I was present during evaluation and discussed with Dr Hardy re plans of care and mgt. Timbo Moon M.D.
--- NOTE | 2018-04-20 13:18 | CP.PCM.PN ---
Subjective - Date & Time of Evaluation Date of Evaluation: 04/20/18 Time of Evaluation: 13:18 - Subjective Subjective: PT WITHOUT COMPLAINTS. DECREASED DYSPNEA. Objective - Vital Signs/Intake and Output Vital Signs (last 24 hours): Temp Pulse Resp BP Pulse Ox 98.2 F 112 H 20 138/85 99 04/20/18 12:00 04/20/18 12:00 04/20/18 12:00 04/20/18 12:00 04/20/18 12:00 - Medications Medications: Current Medications Acetaminophen (Tylenol 325mg Tab) 650 mg PO Q6H PRN PRN Reason: Fever >100.4 F Acetaminophen (Tylenol 325mg Tab) 650 mg PO Q6 PRN PRN Reason: Pain, moderate (4-7) Last Admin: 04/14/18 20:49 Dose: 650 mg Atovaquone (Mepron) 750 mg PO BIDWM [facility] PRN Reason: Protocol Calcium Acetate (Phoslo) 1,334 mg PO WM [facility] Last Admin: 04/20/18 12:08 Dose: 1,334 mg Epoetin Charles (Procrit) 14,000 unit IV MWF [facility] Last Admin: 04/18/18 23:42 Dose: 14,000 unit Finasteride (Proscar) 5 mg PO DAILY [facility] Last Admin: 04/20/18 08:44 Dose: 5 mg Fluticasone Propionate (Flonase) 1 spr [place] DAILY PRN PRN Reason: Nasal congestion Guaifenesin (Mucinex La) 1,200 mg PO Q12 [facility] Last Admin: 04/20/18 08:44 Dose: Not Given Vancomycin HCl 1 gm/ Sodium (Chloride) 250 mls @ 166.667 mls/hr IVPB QOTHERDAY [facility] PRN Reason: Protocol Last Admin: 04/20/18 02:06 Dose: 166.667 mls/hr Cefazolin Sodium/Dextrose (Ancef Iv 2 Gm Duplex) 2 gm in 50 mls @ 50 mls/hr IVPB QOTHERDAY [facility] PRN Reason: Protocol Last Admin: 04/20/18 02:51 Dose: 50 mls/hr Levalbuterol HCl (Xopenex) 1.25 mg INH RQ4 PRN PRN Reason: Shortness of Breath Metoprolol Succinate (Toprol Xl) 25 mg PO Q12 [facility] Last Admin: 04/20/18 08:45 Dose: 25 mg Pantoprazole Sodium (Protonix Ec Tab) 40 mg PO DAILY [facility] Last Admin: 04/20/18 08:44 Dose: 40 mg Prednisone (Prednisone Tab) 60 mg PO DAILY [facility] Last Admin: 04/20/18 08:44 Dose: 60 mg Tamsulosin HCl (Flomax) 0.4 mg PO QPM [facility] Last Admin: 04/19/18 17:50 Dose: 0.4 mg Vitamin B Complex/Vit C/Folic Acid (Nephro-Jj) 1 tab PO DAILY [facility] Last Admin: 04/20/18 08:44 Dose: 1 tab - Labs Labs: 04/18/18 22:30 04/19/18 23:00 PT 16.2 Seconds (9.8-13.1) H 04/14/18 09:53 INR 1.5 04/14/18 09:53 APTT 29.7 Seconds (25.6-37.1) 04/14/18 09:53 - Constitutional Appears: Non-toxic - Head Exam Head Exam: ATRAUMATIC, NORMAL INSPECTION, NORMOCEPHALIC - Eye Exam Eye Exam: EOMI, Normal appearance, PERRL. absent: Conjunctival injection, Nystagmus, Periorbital swelling, Periorbital tenderness, Scleral icterus Pupil Exam: NORMAL ACCOMODATION, PERRL - ENT Exam ENT Exam: Mucous Membranes Moist, Normal Exam. absent: Mucous Membranes Dry, Normal External Ear Exam, Normal Oropharynx, TM's Normal Bilaterally - Neck Exam Neck Exam: Full ROM, Normal Inspection. absent: Lymphadenopathy, Meningismus, Tenderness, Thyromegaly - Respiratory Exam Respiratory Exam: Clear to Ausculation Bilateral, NORMAL BREATHING PATTERN. absent: Accessory Muscle Use, Chest Wall Tenderness, Decreased Breath Sounds, Prolonged Expiratory Phase, Rales, Rhonchi, Wheezes, Respiratory Distress, Stridor - Cardiovascular Exam Cardiovascular Exam: Irregular Rhythm, +S1, +S2, Murmur. absent: Bradycardia, Tachycardia, Clicks, Diastolic murmur, Gallop, REGULAR RHYTHM, JVD, RRR, Rubs, + S4 - GI/Abdominal Exam GI & Abdominal Exam: Soft, Normal Bowel Sounds. absent: Bruit, Distended, Firm , Guarding, Rigid, Tenderness, Diminished Bowel Sounds, Hernia, Hyperactive Bowel Sounds, Hypoactive Bowel Sounds, Organomegaly, Pulsatile Mass, Rebound, Mass - Rectal Exam Rectal Exam: Deferred - Extremities Exam Extremities Exam: Normal Capillary Refill, Pedal Edema. absent: Calf Tenderness , Full ROM, Joint Swelling, Normal Inspection, Tenderness - Back Exam Back Exam: NORMAL INSPECTION. absent: CVA tenderness (L), CVA tenderness (R), Full ROM, muscle spasm, paraspinal tenderness, rash noted, tenderness, vertebral tenderness - Neurological Exam Neurological Exam: Alert, Awake, CN II-XII Intact, Oriented x3. absent: Abnormal Gait, Altered, Motor Sensory Deficit, Normal Gait, Reflexes Normal - Psychiatric Exam Psychiatric exam: Normal Affect, Normal Mood. absent: Agitated, Anxious, Depressed, Flat Affect, Homicidal Ideation, Manic, Suicidal Ideation - Skin Skin Exam: Dry, Intact, Normal Color, Warm. absent: Abrasion, Cyanosis, Diaphoretic, Erythema, Mottled, Pallor, Pallor, Petechiae, Rash, Urticaria, Vesicles Assessment and Plan (1) Acute renal failure (ARF) Status: Acute (2) Enlarged RV (right ventricle) Status: Acute (3) Atrial enlargement, bilateral Status: Acute (4) A-fib Status: Acute (5) Volume overload Status: Acute (6) Biliary pleural effusion Status: Acute - Assessment and Plan (Free Text) Plan: IMPROVING WITH HEMODIALYSIS. HR IMPROVED ON BID TOPROL XL.
--- NOTE | 2018-04-20 15:56 | RAD ---
Date of service: 04/20/2018 PROCEDURE: CHEST RADIOGRAPH, 1 VIEW HISTORY: Follow up pulmonary infiltrate COMPARISON: 04/16/2018. FINDINGS: The right-sided dialysis catheter terminates at the cavoatrial junction. LUNGS: The lungs are well inflated. There is diffuse haziness in the right lung. There is severe pulmonary venous congestion. PLEURA: No pneumothorax. Worsening pleural effusions. CARDIOVASCULAR: Mild cardiomegaly with prominent central vasculature. OSSEOUS STRUCTURES: No significant abnormalities. VISUALIZED UPPER ABDOMEN: Normal. OTHER FINDINGS: None. IMPRESSION: Worsening congestive heart failure with presumable pulmonary edema in the right lung.
[2018-04-20 16:25] VITALS: BMI 30.2
--- NOTE | 2018-04-20 18:11 | CP.PCM.PN ---
Subjective - Date & Time of Evaluation Date of Evaluation: 04/20/18 Time of Evaluation: 08:00 - Subjective Subjective: awake alert nad Objective - Vital Signs/Intake and Output Vital Signs (last 24 hours): Temp Pulse Resp BP Pulse Ox 98.3 F 99 H 20 142/87 98 04/20/18 16:05 04/20/18 16:05 04/20/18 16:05 04/20/18 16:05 04/20/18 16:05 - Medications Medications: Current Medications Acetaminophen (Tylenol 325mg Tab) 650 mg PO Q6H PRN PRN Reason: Fever >100.4 F Acetaminophen (Tylenol 325mg Tab) 650 mg PO Q6 PRN PRN Reason: Pain, moderate (4-7) Last Admin: 04/14/18 20:49 Dose: 650 mg Atovaquone (Mepron) 750 mg PO BIDWM [facility] PRN Reason: Protocol Calcium Acetate (Phoslo) 1,334 mg PO WM [facility] Last Admin: 04/20/18 12:08 Dose: 1,334 mg Epoetin Charles (Procrit) 14,000 unit IV MWF [facility] Last Admin: 04/18/18 23:42 Dose: 14,000 unit Finasteride (Proscar) 5 mg PO DAILY [facility] Last Admin: 04/20/18 08:44 Dose: 5 mg Fluticasone Propionate (Flonase) 1 spr [place] DAILY PRN PRN Reason: Nasal congestion Guaifenesin (Mucinex La) 1,200 mg PO Q12 [facility] Last Admin: 04/20/18 08:44 Dose: Not Given Vancomycin HCl 1 gm/ Sodium (Chloride) 250 mls @ 166.667 mls/hr IVPB QOTHERDAY [facility] PRN Reason: Protocol Last Admin: 04/20/18 02:06 Dose: 166.667 mls/hr Cefazolin Sodium/Dextrose (Ancef Iv 2 Gm Duplex) 2 gm in 50 mls @ 50 mls/hr IVPB QOTHERDAY [facility] PRN Reason: Protocol Last Admin: 04/20/18 02:51 Dose: 50 mls/hr Levalbuterol HCl (Xopenex) 1.25 mg INH RQ4 PRN PRN Reason: Shortness of Breath Metoprolol Succinate (Toprol Xl) 25 mg PO Q12 [facility] Last Admin: 04/20/18 08:45 Dose: 25 mg Pantoprazole Sodium (Protonix Ec Tab) 40 mg PO DAILY [facility] Last Admin: 04/20/18 08:44 Dose: 40 mg Prednisone (Prednisone Tab) 60 mg PO DAILY [facility] Last Admin: 04/20/18 08:44 Dose: 60 mg Tamsulosin HCl (Flomax) 0.4 mg PO QPM [facility] Last Admin: 04/19/18 17:50 Dose: 0.4 mg Vitamin B Complex/Vit C/Folic Acid (Nephro-Jj) 1 tab PO DAILY [facility] Last Admin: 04/20/18 08:44 Dose: 1 tab - Labs Labs: 04/18/18 22:30 04/19/18 23:00 PT 16.2 Seconds (9.8-13.1) H 04/14/18 09:53 INR 1.5 04/14/18 09:53 APTT 29.7 Seconds (25.6-37.1) 04/14/18 09:53 - Constitutional Appears: Non-toxic, Chronically Ill - Head Exam Head Exam: NORMOCEPHALIC - Eye Exam Eye Exam: absent: Scleral icterus - ENT Exam ENT Exam: Mucous Membranes Dry - Neck Exam Neck Exam: absent: Lymphadenopathy - Respiratory Exam Respiratory Exam: Decreased Breath Sounds - Cardiovascular Exam Cardiovascular Exam: REGULAR RHYTHM - GI/Abdominal Exam GI & Abdominal Exam: Distended - Rectal Exam Rectal Exam: Deferred - Exam Exam: NORMAL INSPECTION - Extremities Exam Extremities Exam: absent: Pedal Edema - Back Exam Back Exam: absent: CVA tenderness (L), CVA tenderness (R) - Neurological Exam Neurological Exam: Alert, Awake - Psychiatric Exam Psychiatric exam: Normal Mood - Skin Skin Exam: Dry - Additional Findings Additional findings: 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 And pleural effusion. cont PCP prophylaxis follow up with Dr Sandoval Assessment and Plan (1) A-fib Status: Acute (2) Acute on chronic renal failure Status: Acute (3) Altered mental status Status: Acute (4) Anemia Status: Acute (5) Atrial enlargement, bilateral Status: Acute (6) Enlarged RV (right ventricle) Status: Acute (7) Pulmonary infiltrate Status: Acute (8) Pulmonary nodules/lesions, multiple Status: Acute (9) UTI (urinary tract infection) Status: Acute
[2018-04-20] MEDS: Metoprolol Succinate 50 mg XL Tab PO SCH (21:39)
[2018-04-21 09:18] LABS: HEMOGLOBIN 8.3 g/dL (12.0-18.0); MEAN CORPUSCULAR HEMOGLOBIN 29.2 pg (27.0-31.0); MEAN CORPUSCULAR HGB CONC 32.3 g/dL (33.0-37.0); RBC 2.83 Mil/uL (4.40-5.90); RED CELL DISTRIBUTION WIDTH 28.4 % (11.5-14.5); WHITE BLOOD COUNT 8.1 K/uL (4.8-10.8)
[2018-04-21 09:30] LABS: ALB/GLOB RATIO 1.3 (1.0-2.1); ALBUMIN 2.9 g/dL (3.5-5.0); CALCIUM 8.6 mg/dL (8.4-10.2)
[2018-04-21 09:40] LABS: MEAN CELL VOLUME 90.5 fl (80.0-94.0)
[2018-04-21] MEDS ORDERED: DIPHENHYDRAMINE IVPB ONE (10:56)
[2018-04-21] MEDS ORDERED: SODIUM CHLORIDE 0.9% IVPB ONE (10:56)
[2018-04-21] MEDS ORDERED: DiphenhydrAMINE 50 mg/ml Inj IVP ONE ×2 (11:15)
[2018-04-21] MEDS: ceFAZolin IV 2 gm in Dextrose 2 GM/50 ML BAG IVPB SCH (14:10)
[2018-04-21] MEDS: Multivitamin Vitamin B Complex (Nephro-Vite) Tab PO SCH (14:11)
[2018-04-21] MEDS: Metoprolol Succinate 50 mg XL Tab PO SCH ×2 (14:11→21:51)
[2018-04-21] MEDS: guaiFENesin 600 mg ER Tab PO SCH ×2 (14:12→21:51)
[2018-04-21] MEDS: Pantoprazole 40 mg EC Tab PO SCH (14:13)
--- NOTE | 2018-04-21 15:43 | CP.PCM.PN ---
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 s/p plasmapharesis 4 session, held next pharesis due to decreasing Hct and Platelet counts. s/p pulse steroids and rituxan (04/05/18). continue with prednisone 60 mg/day. PCP prophylaxis with Dapsone d/w heme about 2nd dose of rituxan (pt planned for 1 gram infusion on 04/21/18) Hypertension control with meds as ordered. Patient not on ACEI/ARB due to QUINTON Monitor Input/Output, daily weights and renal function with basic metabolic panel continue with epogen as increased and nephrovite. PRBC as needed for anemia continue with weekly Vit D phos binder lowered to 667 mg pt being planned for d/c to outpt HD unit. Dose meds/antibiotics for reduced GFR. Avoid fleets enema/magnesium based laxatives. Avoid nephrotoxins/NSAIDs/ iodinated contrast (unless needed emergently) Glycemic control Further work up for as per primary team Thanks for allowing me to participate in care of your patient. Will follow patient with you. Please call if any Qs. had d/w team Dr Dominguez Nix Office: [phone] Subjective: Noted events overnight. Patients feels okay. Denies chest pain, palpitation, no shortness of breath, leg swelling. All other negative Physical Examination: General Appearance: Comfortable, in no acute respiratory distress, co-operative Vitals reviewed and noted as below Head; Atraumatic, normocephalic ENT: no ulcers no thrush. Tongue is midline. Oropharynx: no rash or ulcers. EYES: Pupils are equal, round and reactive to light accommodation. Eye muscles and extraocular movement intact. Sclera is anicteric. Neck; supple no lymphadenopathy, no thyromegaly or bruit Lungs: Normal respiratory rate/effort. Breath sounds bilateral decreased at bases Heart: Normal rate. s1s2 normal. No rub or gallop. Extremities: 1+ edema. No varicose veins Neurological: Patient is alert, awake and oriented to person, place and time. No focal deficit. Strength bilateral appropriate and equal Skin: Warm and dry. Normal turgor. No rash. Palpitation: Normal elasticity for age Abdomen: Abdomen is soft. Bowel sounds +. There is no abdominal tenderness, no guarding/rigidity no organomegaly Psych: lackl insight and normal affect/mood MSK: no joint tenderness or swelling. Digits and nails normal, no deformity : kidney or bladder not palpable access: PC Labs/imaging reviewed. Past medical history, past surgical history, family history, social history, allergy reviewed and noted as below Family hx: no hx of CKD. Rest non-contributory Objective - Vital Signs/Intake and Output Vital Signs (last 24 hours): Temp Pulse Resp BP Pulse Ox 98.4 F 93 H 20 126/72 95 04/21/18 15:36 04/21/18 15:36 04/21/18 15:36 04/21/18 15:36 04/21/18 15:36 - Medications Medications: Current Medications Acetaminophen (Tylenol 325mg Tab) 650 mg PO Q6H PRN PRN Reason: Fever >100.4 F Acetaminophen (Tylenol 325mg Tab) 650 mg PO Q6 PRN PRN Reason: Pain, moderate (4-7) Last Admin: 04/14/18 20:49 Dose: 650 mg Calcium Acetate (Phoslo) 667 mg PO TIDCC [facility] Dapsone (Dapsone) 100 mg PO DAILY [facility] PRN Reason: Protocol Last Admin: 04/21/18 14:11 Dose: 100 mg Epoetin Charles (Procrit) 14,000 unit IV MWF [facility] Last Admin: 04/20/18 10:30 Dose: Not Given Finasteride (Proscar) 5 mg PO DAILY [facility] Last Admin: 04/21/18 14:12 Dose: 5 mg Fluticasone Propionate (Flonase) 1 spr [place] DAILY PRN PRN Reason: Nasal congestion Guaifenesin (Mucinex La) 1,200 mg PO Q12 [facility] Last Admin: 04/21/18 14:12 Dose: 1,200 mg Vancomycin HCl 1 gm/ Sodium (Chloride) 250 mls @ 166.667 mls/hr IVPB QOTHERDAY [facility] PRN Reason: Protocol Last Admin: 04/21/18 14:07 Dose: 166.667 mls/hr Cefazolin Sodium/Dextrose (Ancef Iv 2 Gm Duplex) 2 gm in 50 mls @ 50 mls/hr IVPB QOTHERDAY [facility] PRN Reason: Protocol Last Admin: 04/21/18 14:10 Dose: 50 mls/hr Rituximab 1,000 mg/ Sodium (Chloride) 350 mls @ 0 mls/hr IV ONCE ONE; As Directed PRN Reason: Protocol Stop: 04/21/18 11:55 Levalbuterol HCl (Xopenex) 1.25 mg INH RQ4 PRN PRN Reason: Shortness of Breath Metoprolol Succinate (Toprol Xl) 50 mg PO Q12 [facility] Last Admin: 04/21/18 14:11 Dose: 50 mg Pantoprazole Sodium (Protonix Ec Tab) 40 mg PO DAILY [facility] Last Admin: 04/21/18 14:13 Dose: 40 mg Prednisone (Prednisone Tab) 60 mg PO DAILY [facility] Last Admin: 04/21/18 14:12 Dose: 60 mg Tamsulosin HCl (Flomax) 0.4 mg PO QPM [facility] Last Admin: 04/20/18 18:00 Dose: Not Given Vitamin B Complex/Vit C/Folic Acid (Nephro-Jj) 1 tab PO DAILY [facility] Last Admin: 04/21/18 14:11 Dose: 1 tab - Labs Labs: 04/21/18 09:11 04/21/18 09:11 PT 16.2 Seconds (9.8-13.1) H 04/14/18 09:53 INR 1.5 04/14/18 09:53 APTT 29.7 Seconds (25.6-37.1) 04/14/18 09:53
--- NOTE | 2018-04-21 16:34 | CP.PCM.PN ---
Subjective - Date & Time of Evaluation Date of Evaluation: 04/21/18 Time of Evaluation: 13:00 - Subjective Subjective: patient feels a lot better Very conversant. Has no fever Has better appetite. Latest labs showed Hgb 8.3 creatinine 3.5 GFR 21 Still with hematuria Objective - Vital Signs/Intake and Output Vital Signs (last 24 hours): Temp Pulse Resp BP Pulse Ox 98.4 F 93 H 20 126/72 95 04/21/18 15:36 04/21/18 15:36 04/21/18 15:36 04/21/18 15:36 04/21/18 15:36 - Medications Medications: Current Medications Acetaminophen (Tylenol 325mg Tab) 650 mg PO Q6H PRN PRN Reason: Fever >100.4 F Acetaminophen (Tylenol 325mg Tab) 650 mg PO Q6 PRN PRN Reason: Pain, moderate (4-7) Last Admin: 04/14/18 20:49 Dose: 650 mg Calcium Acetate (Phoslo) 667 mg PO TIDCC [facility] Dapsone (Dapsone) 100 mg PO DAILY [facility] PRN Reason: Protocol Last Admin: 04/21/18 14:11 Dose: 100 mg Epoetin Charles (Procrit) 14,000 unit IV MWF [facility] Last Admin: 04/20/18 10:30 Dose: Not Given Finasteride (Proscar) 5 mg PO DAILY [facility] Last Admin: 04/21/18 14:12 Dose: 5 mg Fluticasone Propionate (Flonase) 1 spr [place] DAILY PRN PRN Reason: Nasal congestion Guaifenesin (Mucinex La) 1,200 mg PO Q12 [facility] Last Admin: 04/21/18 14:12 Dose: 1,200 mg Vancomycin HCl 1 gm/ Sodium (Chloride) 250 mls @ 166.667 mls/hr IVPB QOTHERDAY [facility] PRN Reason: Protocol Last Admin: 04/21/18 14:07 Dose: 166.667 mls/hr Cefazolin Sodium/Dextrose (Ancef Iv 2 Gm Duplex) 2 gm in 50 mls @ 50 mls/hr IVPB QOTHERDAY [facility] PRN Reason: Protocol Last Admin: 04/21/18 14:10 Dose: 50 mls/hr Rituximab 1,000 mg/ Sodium (Chloride) 350 mls @ 0 mls/hr IV ONCE ONE; As Directed PRN Reason: Protocol Stop: 04/21/18 11:55 Levalbuterol HCl (Xopenex) 1.25 mg INH RQ4 PRN PRN Reason: Shortness of Breath Metoprolol Succinate (Toprol Xl) 50 mg PO Q12 [facility] Last Admin: 04/21/18 14:11 Dose: 50 mg Pantoprazole Sodium (Protonix Ec Tab) 40 mg PO DAILY [facility] Last Admin: 04/21/18 14:13 Dose: 40 mg Prednisone (Prednisone Tab) 60 mg PO DAILY [facility] Last Admin: 04/21/18 14:12 Dose: 60 mg Tamsulosin HCl (Flomax) 0.4 mg PO QPM [facility] Last Admin: 04/20/18 18:00 Dose: Not Given Vitamin B Complex/Vit C/Folic Acid (Nephro-Jj) 1 tab PO DAILY [facility] Last Admin: 04/21/18 14:11 Dose: 1 tab - Labs Labs: 04/21/18 09:11 04/21/18 09:11 PT 16.2 Seconds (9.8-13.1) H 04/14/18 09:53 INR 1.5 04/14/18 09:53 APTT 29.7 Seconds (25.6-37.1) 04/14/18 09:53 - Head Exam Head Exam: NORMAL INSPECTION - Eye Exam Eye Exam: Normal appearance - ENT Exam ENT Exam: Mucous Membranes Moist - Respiratory Exam Respiratory Exam: Clear to Ausculation Bilateral - Cardiovascular Exam Cardiovascular Exam: REGULAR RHYTHM - GI/Abdominal Exam GI & Abdominal Exam: Normal Bowel Sounds Assessment and Plan (1) Pneumonia Status: Acute (2) Renal failure Status: Acute (3) Severe anemia Status: Acute (4) UTI (urinary tract infection) Status: Acute - Assessment and Plan (Free Text) Plan: Cont meds Cont IV antibiotics' and hemodialysis monitor cbc cmp fo subacute rehab
[2018-04-22] MEDS: guaiFENesin 600 mg ER Tab PO SCH ×2 (10:09→22:01)
[2018-04-22] MEDS: Multivitamin Vitamin B Complex (Nephro-Vite) Tab PO SCH (10:10)
[2018-04-22] MEDS: Epoetin Alfa 20000 UNIT/ML Inj IV SCH (10:11)
[2018-04-22] MEDS: Pantoprazole 40 mg EC Tab PO SCH (10:12)
[2018-04-22] MEDS: Metoprolol Succinate 50 mg XL Tab PO SCH ×2 (10:13→22:01)
--- NOTE | 2018-04-22 12:03 | CP.PCM.PN ---
Subjective - Date & Time of Evaluation Date of Evaluation: 04/21/18 Time of Evaluation: 12:00 - Subjective Subjective: For Rituximab infusion today. Objective - Vital Signs/Intake and Output Vital Signs (last 24 hours): Temp Pulse Resp BP Pulse Ox 97.9 F 91 H 20 144/88 97 04/22/18 08:37 04/22/18 10:13 04/22/18 08:37 04/22/18 10:13 04/22/18 08:37 - Medications Medications: Current Medications Acetaminophen (Tylenol 325mg Tab) 650 mg PO Q6H PRN PRN Reason: Fever >100.4 F Acetaminophen (Tylenol 325mg Tab) 650 mg PO Q6 PRN PRN Reason: Pain, moderate (4-7) Last Admin: 04/14/18 20:49 Dose: 650 mg Calcium Acetate (Phoslo) 667 mg PO TIDCC [facility] Last Admin: 04/22/18 10:10 Dose: 667 mg Dapsone (Dapsone) 100 mg PO DAILY [facility] PRN Reason: Protocol Epoetin Charles (Procrit) 14,000 unit IV MWF [facility] Last Admin: 04/22/18 10:11 Dose: 14,000 unit Finasteride (Proscar) 5 mg PO DAILY [facility] Last Admin: 04/22/18 10:12 Dose: 5 mg Fluticasone Propionate (Flonase) 1 spr [place] DAILY PRN PRN Reason: Nasal congestion Guaifenesin (Mucinex La) 1,200 mg PO Q12 [facility] Last Admin: 04/22/18 10:09 Dose: 1,200 mg Vancomycin HCl 1 gm/ Sodium (Chloride) 250 mls @ 166.667 mls/hr IVPB QOTHERDAY [facility] PRN Reason: Protocol Last Admin: 04/21/18 14:07 Dose: 166.667 mls/hr Cefazolin Sodium/Dextrose (Ancef Iv 2 Gm Duplex) 2 gm in 50 mls @ 50 mls/hr IVPB QOTHERDAY [facility] PRN Reason: Protocol Last Admin: 04/21/18 14:10 Dose: 50 mls/hr Levalbuterol HCl (Xopenex) 1.25 mg INH RQ4 PRN PRN Reason: Shortness of Breath Metoprolol Succinate (Toprol Xl) 50 mg PO Q12 [facility] Last Admin: 04/22/18 10:13 Dose: 50 mg Pantoprazole Sodium (Protonix Ec Tab) 40 mg PO DAILY [facility] Last Admin: 04/22/18 10:12 Dose: 40 mg Prednisone (Prednisone Tab) 60 mg PO DAILY [facility] Last Admin: 04/22/18 10:10 Dose: 60 mg Tamsulosin HCl (Flomax) 0.4 mg PO QPM [facility] Last Admin: 04/21/18 18:04 Dose: 0.4 mg Vitamin B Complex/Vit C/Folic Acid (Nephro-Jj) 1 tab PO DAILY [facility] Last Admin: 04/22/18 10:10 Dose: 1 tab - Labs Labs: 04/21/18 09:11 04/21/18 09:11 PT 16.2 Seconds (9.8-13.1) H 04/14/18 09:53 INR 1.5 04/14/18 09:53 APTT 29.7 Seconds (25.6-37.1) 04/14/18 09:53 - Head Exam Head Exam: ATRAUMATIC - Eye Exam Eye Exam: Normal appearance - ENT Exam ENT Exam: Mucous Membranes Dry - Respiratory Exam Respiratory Exam: NORMAL BREATHING PATTERN - Cardiovascular Exam Cardiovascular Exam: +S1, +S2 - GI/Abdominal Exam GI & Abdominal Exam: Normal Bowel Sounds Assessment and Plan (1) Anemia Assessment & Plan: iron deficiency s/p IV iron anemia of CKD on Procrit per renal s/p transfusion support transfusion support PRN Status: Acute
--- NOTE | 2018-04-22 12:04 | CP.PCM.PN ---
Subjective - Date & Time of Evaluation Date of Evaluation: 04/20/18 Time of Evaluation: 10:00 - Subjective Subjective: Appears comfortable. For repeat 2nd dose of Rituximab 1gram infusion tomorrow. Objective - Vital Signs/Intake and Output Vital Signs (last 24 hours): Temp Pulse Resp BP Pulse Ox 97.9 F 91 H 20 144/88 97 04/22/18 08:37 04/22/18 10:13 04/22/18 08:37 04/22/18 10:13 04/22/18 08:37 - Medications Medications: Current Medications Acetaminophen (Tylenol 325mg Tab) 650 mg PO Q6H PRN PRN Reason: Fever >100.4 F Acetaminophen (Tylenol 325mg Tab) 650 mg PO Q6 PRN PRN Reason: Pain, moderate (4-7) Last Admin: 04/14/18 20:49 Dose: 650 mg Calcium Acetate (Phoslo) 667 mg PO TIDCC REPLACED BY [facility] Last Admin: 04/22/18 10:10 Dose: 667 mg Dapsone (Dapsone) 100 mg PO DAILY [facility] BY [facility] PRN Reason: Protocol Epoetin Charles (Procrit) 14,000 unit IV MWF REPLACED BY [facility] Last Admin: 04/22/18 10:11 Dose: 14,000 unit Finasteride (Proscar) 5 mg PO DAILY [facility]PL[facility]ED BY [facility] Last Admin: 04/22/18 10:12 Dose: 5 mg Fluticasone Propionate (Flonase) 1 spr [place] DAILY PRN PRN Reason: Nasal congestion Guaifenesin (Mucinex La) 1,200 mg PO Q12 REPLACED BY [facility] Last Admin: 04/22/18 10:09 Dose: 1,200 mg Vancomycin HCl 1 gm/ Sodium (Chloride) 250 mls @ 166.667 mls/hr IVPB QOTHERDAY REPLACED BY [facility] PRN Reason: Protocol Last Admin: 04/21/18 14:07 Dose: 166.667 mls/hr Cefazolin Sodium/Dextrose (Ancef Iv 2 Gm Duplex) 2 gm in 50 mls @ 50 mls/hr IVPB QOTHERDAY REPLACED BY [facility] PRN Reason: Protocol Last Admin: 04/21/18 14:10 Dose: 50 mls/hr Levalbuterol HCl (Xopenex) 1.25 mg INH RQ4 PRN PRN Reason: Shortness of Breath Metoprolol Succinate (Toprol Xl) 50 mg PO Q12 REPLACED BY [facility] Last Admin: 04/22/18 10:13 Dose: 50 mg Pantoprazole Sodium (Protonix Ec Tab) 40 mg PO DAILY REPLACED BY [facility] Last Admin: 04/22/18 10:12 Dose: 40 mg Prednisone (Prednisone Tab) 60 mg PO DAILY REPLACED BY [facility] Last Admin: 04/22/18 10:10 Dose: 60 mg Tamsulosin HCl (Flomax) 0.4 mg PO QPM REPLACED BY [facility] Last Admin: 04/21/18 18:04 Dose: 0.4 mg Vitamin B Complex/Vit C/Folic Acid (Nephro-Jj) 1 tab PO DAILY REPLACED BY [facility] Last Admin: 04/22/18 10:10 Dose: 1 tab - Labs Labs: 04/21/18 09:11 04/21/18 09:11 PT 16.2 Seconds (9.8-13.1) H 04/14/18 09:53 INR 1.5 04/14/18 09:53 APTT 29.7 Seconds (25.6-37.1) 04/14/18 09:53 - Head Exam Head Exam: ATRAUMATIC - Eye Exam Eye Exam: Normal appearance - ENT Exam ENT Exam: Mucous Membranes Dry - Respiratory Exam Respiratory Exam: NORMAL BREATHING PATTERN - Cardiovascular Exam Cardiovascular Exam: +S1, +S2 - GI/Abdominal Exam GI & Abdominal Exam: Normal Bowel Sounds Assessment and Plan (1) Anemia Assessment & Plan: iron deficiency s/p IV iron anemia of CKD on Procrit per renal s/p transfusion support transfusion support PRN Status: Acute
--- NOTE | 2018-04-22 12:07 | CP.PCM.PN ---
Subjective - Date & Time of Evaluation Date of Evaluation: 04/22/18 Time of Evaluation: 09:00 - Subjective Subjective: Tolerating Rituxan infusion well. Objective - Vital Signs/Intake and Output Vital Signs (last 24 hours): Temp Pulse Resp BP Pulse Ox 97.9 F 91 H 20 144/88 97 04/22/18 08:37 04/22/18 10:13 04/22/18 08:37 04/22/18 10:13 04/22/18 08:37 - Medications Medications: Current Medications Acetaminophen (Tylenol 325mg Tab) 650 mg PO Q6H PRN PRN Reason: Fever >100.4 F Acetaminophen (Tylenol 325mg Tab) 650 mg PO Q6 PRN PRN Reason: Pain, moderate (4-7) Last Admin: 04/14/18 20:49 Dose: 650 mg Calcium Acetate (Phoslo) 667 mg PO TIDCC [facility] Last Admin: 04/22/18 10:10 Dose: 667 mg Dapsone (Dapsone) 100 mg PO DAILY [facility] PRN Reason: Protocol Epoetin Charels (Procrit) 14,000 unit IV MWF [facility] Last Admin: 04/22/18 10:11 Dose: 14,000 unit Finasteride (Proscar) 5 mg PO DAILY [facility] Last Admin: 04/22/18 10:12 Dose: 5 mg Fluticasone Propionate (Flonase) 1 spr [place] DAILY PRN PRN Reason: Nasal congestion Guaifenesin (Mucinex La) 1,200 mg PO Q12 [facility] Last Admin: 04/22/18 10:09 Dose: 1,200 mg Vancomycin HCl 1 gm/ Sodium (Chloride) 250 mls @ 166.667 mls/hr IVPB QOTHERDAY [facility] PRN Reason: Protocol Last Admin: 04/21/18 14:07 Dose: 166.667 mls/hr Cefazolin Sodium/Dextrose (Ancef Iv 2 Gm Duplex) 2 gm in 50 mls @ 50 mls/hr IVPB QOTHERDAY [facility] PRN Reason: Protocol Last Admin: 04/21/18 14:10 Dose: 50 mls/hr Levalbuterol HCl (Xopenex) 1.25 mg INH RQ4 PRN PRN Reason: Shortness of Breath Metoprolol Succinate (Toprol Xl) 50 mg PO Q12 [facility] Last Admin: 04/22/18 10:13 Dose: 50 mg Pantoprazole Sodium (Protonix Ec Tab) 40 mg PO DAILY [facility] Last Admin: 04/22/18 10:12 Dose: 40 mg Prednisone (Prednisone Tab) 60 mg PO DAILY [facility] Last Admin: 04/22/18 10:10 Dose: 60 mg Tamsulosin HCl (Flomax) 0.4 mg PO QPM [facility] Last Admin: 04/21/18 18:04 Dose: 0.4 mg Vitamin B Complex/Vit C/Folic Acid (Nephro-Jj) 1 tab PO DAILY [facility] Last Admin: 04/22/18 10:10 Dose: 1 tab - Labs Labs: 04/21/18 09:11 04/21/18 09:11 PT 16.2 Seconds (9.8-13.1) H 04/14/18 09:53 INR 1.5 04/14/18 09:53 APTT 29.7 Seconds (25.6-37.1) 04/14/18 09:53 - Head Exam Head Exam: ATRAUMATIC - Eye Exam Eye Exam: Normal appearance - ENT Exam ENT Exam: Mucous Membranes Dry - Respiratory Exam Respiratory Exam: NORMAL BREATHING PATTERN - Cardiovascular Exam Cardiovascular Exam: +S1, +S2 - GI/Abdominal Exam GI & Abdominal Exam: Normal Bowel Sounds Assessment and Plan (1) Anemia Assessment & Plan: iron deficiency s/p IV iron anemia of CKD on Procrit per renal s/p transfusion support transfusion support PRN Status: Acute
--- NOTE | 2018-04-22 12:49 | CP.PCM.PN ---
Subjective - Date & Time of Evaluation Date of Evaluation: 04/22/18 Time of Evaluation: 11:00 - Subjective Subjective: F/U Pulmonary infiltrate Patient was seen and examined this morning. Pt states he feels well, denies chest pain, SOB, but still coughing, and having white sputum production. Eating with good appetite. States he has been able to ambulate without complains during physical therapy. No events overnight. Had Hemodialysis yesterday. Rituximab started yesterday as per Hemo/ONc recommendations. Lungs clear to auscultation, no wheezes, rales, or rhonchi Lower extremities edema improving/pitting 1+ [facility] [place] CXR done on 04/20/18 reviewed Continue with current treatment Objective - Vital Signs/Intake and Output Vital Signs (last 24 hours): Temp Pulse Resp BP Pulse Ox 97.9 F 91 H 20 144/88 97 04/22/18 08:37 04/22/18 10:13 04/22/18 08:37 04/22/18 10:13 04/22/18 08:37 - Medications Medications: Current Medications Acetaminophen (Tylenol 325mg Tab) 650 mg PO Q6H PRN PRN Reason: Fever >100.4 F Acetaminophen (Tylenol 325mg Tab) 650 mg PO Q6 PRN PRN Reason: Pain, moderate (4-7) Last Admin: 04/14/18 20:49 Dose: 650 mg Calcium Acetate (Phoslo) 667 mg PO TIDCC [facility] Last Admin: 04/22/18 10:10 Dose: 667 mg Dapsone (Dapsone) 100 mg PO DAILY [facility] PRN Reason: Protocol Epoetin Charles (Procrit) 14,000 unit IV MWF [facility] Last Admin: 04/22/18 10:11 Dose: 14,000 unit Finasteride (Proscar) 5 mg PO DAILY [facility] Last Admin: 04/22/18 10:12 Dose: 5 mg Fluticasone Propionate (Flonase) 1 spr [place]IA DAILY PRN PRN Reason: Nasal congestion Guaifenesin (Mucinex La) 1,200 mg PO Q12 [facility] Last Admin: 04/22/18 10:09 Dose: 1,200 mg Vancomycin HCl 1 gm/ Sodium (Chloride) 250 mls @ 166.667 mls/hr IVPB QOTHERDAY [facility] PRN Reason: Protocol Last Admin: 04/21/18 14:07 Dose: 166.667 mls/hr Cefazolin Sodium/Dextrose (Ancef Iv 2 Gm Duplex) 2 gm in 50 mls @ 50 mls/hr IVPB QOTHERDAY [facility] PRN Reason: Protocol Last Admin: 04/21/18 14:10 Dose: 50 mls/hr Levalbuterol HCl (Xopenex) 1.25 mg INH RQ4 PRN PRN Reason: Shortness of Breath Metoprolol Succinate (Toprol Xl) 50 mg PO Q12 [facility] Last Admin: 04/22/18 10:13 Dose: 50 mg Pantoprazole Sodium (Protonix Ec Tab) 40 mg PO DAILY [facility] Last Admin: 04/22/18 10:12 Dose: 40 mg Prednisone (Prednisone Tab) 60 mg PO DAILY [facility] Last Admin: 04/22/18 10:10 Dose: 60 mg Tamsulosin HCl (Flomax) 0.4 mg PO QPM [facility] Last Admin: 04/21/18 18:04 Dose: 0.4 mg Vitamin B Complex/Vit C/Folic Acid (Nephro-Jj) 1 tab PO DAILY [facility] Last Admin: 04/22/18 10:10 Dose: 1 tab - Labs Labs: 04/21/18 09:11 04/21/18 09:11 PT 16.2 Seconds (9.8-13.1) H 04/14/18 09:53 INR 1.5 04/14/18 09:53 APTT 29.7 Seconds (25.6-37.1) 04/14/18 09:53 Assessment and Plan (1) Pulmonary infiltrate Status: Acute
--- NOTE | 2018-04-22 13:08 | CP.PCM.PN ---
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 s/p plasmapharesis 4 session discontinued at this point s/p pulse steroids and rituxan (04/05/18 and 04/21) REmains on 60 mg pred and PCP prophylaxis Hypertension control with meds as ordered. Patient not on ACEI/ARB due to QUINTON Monitor Input/Output, daily weights and renal function with basic metabolic panel continue with epogen PRBC as needed for anemia continue with weekly Vit D on phoslo Subjective: seen and examiend no complaints Physical Examination: General Appearance: Comfortable, in no acute respiratory distress, co-operative Vitals reviewed and noted as below Head; Atraumatic, normocephalic ENT: no ulcers no thrush. Tongue is midline. Oropharynx: no rash or ulcers. EYES: Pupils are equal, round and reactive to light accommodation. Eye muscles and extraocular movement intact. Sclera is anicteric. Neck; supple no lymphadenopathy, no thyromegaly or bruit Lungs: Normal respiratory rate/effort. Breath sounds bilateral decreased at bases Heart: Normal rate. s1s2 normal. No rub or gallop. Extremities: 1+ edema. No varicose veins Neurological: Patient is alert, awake and oriented to person, place and time. No focal deficit. Strength bilateral appropriate and equal Skin: Warm and dry. Normal turgor. No rash. Palpitation: Normal elasticity for age Abdomen: Abdomen is soft. Bowel sounds +. There is no abdominal tenderness, no guarding/rigidity no organomegaly Psych: lackl insight and normal affect/mood MSK: no joint tenderness or swelling. Digits and nails normal, no deformity : kidney or bladder not palpable access: tunnelled cathether Labs/imaging reviewed. Past medical history, past surgical history, family history, social history, allergy reviewed and noted as below Family hx: no hx of CKD. Rest non-contributory Objective - Vital Signs/Intake and Output Vital Signs (last 24 hours): Temp Pulse Resp BP Pulse Ox 97.9 F 91 H 20 144/88 97 04/22/18 08:37 04/22/18 10:13 04/22/18 08:37 04/22/18 10:13 04/22/18 08:37 - Medications Medications: Current Medications Acetaminophen (Tylenol 325mg Tab) 650 mg PO Q6H PRN PRN Reason: Fever >100.4 F Acetaminophen (Tylenol 325mg Tab) 650 mg PO Q6 PRN PRN Reason: Pain, moderate (4-7) Last Admin: 04/14/18 20:49 Dose: 650 mg Calcium Acetate (Phoslo) 667 mg PO TIDCC [facility] Last Admin: 04/22/18 12:55 Dose: 667 mg Dapsone (Dapsone) 100 mg PO DAILY [facility] PRN Reason: Protocol Epoetin Charles (Procrit) 14,000 unit IV MWF [facility] Last Admin: 04/22/18 10:11 Dose: 14,000 unit Finasteride (Proscar) 5 mg PO DAILY [facility] Last Admin: 04/22/18 10:12 Dose: 5 mg Fluticasone Propionate (Flonase) 1 spr [place]ER[place] DAILY PRN PRN Reason: Nasal congestion Guaifenesin (Mucinex La) 1,200 mg PO Q12 [facility] Last Admin: 04/22/18 10:09 Dose: 1,200 mg Vancomycin HCl 1 gm/ Sodium (Chloride) 250 mls @ 166.667 mls/hr IVPB QOTHERDAY [facility] PRN Reason: Protocol Last Admin: 04/21/18 14:07 Dose: 166.667 mls/hr Cefazolin Sodium/Dextrose (Ancef Iv 2 Gm Duplex) 2 gm in 50 mls @ 50 mls/hr IVPB QOTHERDAY [facility] PRN Reason: Protocol Last Admin: 04/21/18 14:10 Dose: 50 mls/hr Levalbuterol HCl (Xopenex) 1.25 mg INH RQ4 PRN PRN Reason: Shortness of Breath Metoprolol Succinate (Toprol Xl) 50 mg PO Q12 [facility] Last Admin: 04/22/18 10:13 Dose: 50 mg Pantoprazole Sodium (Protonix Ec Tab) 40 mg PO DAILY [facility] Last Admin: 04/22/18 10:12 Dose: 40 mg Prednisone (Prednisone Tab) 60 mg PO DAILY [facility] Last Admin: 04/22/18 10:10 Dose: 60 mg Tamsulosin HCl (Flomax) 0.4 mg PO QPM [facility] Last Admin: 04/21/18 18:04 Dose: 0.4 mg Vitamin B Complex/Vit C/Folic Acid (Nephro-Jj) 1 tab PO DAILY [facility] Last Admin: 04/22/18 10:10 Dose: 1 tab - Labs Labs: 04/21/18 09:11 04/21/18 09:11 PT 16.2 Seconds (9.8-13.1) H 04/14/18 09:53 INR 1.5 04/14/18 09:53 APTT 29.7 Seconds (25.6-37.1) 04/14/18 09:53
--- NOTE | 2018-04-22 13:28 | CP.PCM.PN ---
Subjective - Date & Time of Evaluation Date of Evaluation: 04/22/18 Time of Evaluation: 07:00 - Subjective Subjective: afebrile awakr NAD denies chest pain cough or SOB Objective - Vital Signs/Intake and Output Vital Signs (last 24 hours): Temp Pulse Resp BP Pulse Ox 97.8 F 96 H 18 133/79 99 04/22/18 13:24 04/22/18 13:24 04/22/18 13:24 04/22/18 13:24 04/22/18 13:24 - Medications Medications: Current Medications Acetaminophen (Tylenol 325mg Tab) 650 mg PO Q6H PRN PRN Reason: Fever >100.4 F Acetaminophen (Tylenol 325mg Tab) 650 mg PO Q6 PRN PRN Reason: Pain, moderate (4-7) Last Admin: 04/14/18 20:49 Dose: 650 mg Calcium Acetate (Phoslo) 667 mg PO TIDCC [facility] Last Admin: 04/22/18 12:55 Dose: 667 mg Dapsone (Dapsone) 100 mg PO DAILY [facility] PRN Reason: Protocol Epoetin Charles (Procrit) 14,000 unit IV MWF [facility] Last Admin: 04/22/18 10:11 Dose: 14,000 unit Finasteride (Proscar) 5 mg PO DAILY [facility] Last Admin: 04/22/18 10:12 Dose: 5 mg Fluticasone Propionate (Flonase) 1 spr [place]ERIA DAILY PRN PRN Reason: Nasal congestion Guaifenesin (Mucinex La) 1,200 mg PO Q12 [facility] Last Admin: 04/22/18 10:09 Dose: 1,200 mg Vancomycin HCl 1 gm/ Sodium (Chloride) 250 mls @ 166.667 mls/hr IVPB QOTHERDAY [facility] PRN Reason: Protocol Last Admin: 04/21/18 14:07 Dose: 166.667 mls/hr Cefazolin Sodium/Dextrose (Ancef Iv 2 Gm Duplex) 2 gm in 50 mls @ 50 mls/hr IVPB QOTHERDAY [facility] PRN Reason: Protocol Last Admin: 04/21/18 14:10 Dose: 50 mls/hr Levalbuterol HCl (Xopenex) 1.25 mg INH RQ4 PRN PRN Reason: Shortness of Breath Metoprolol Succinate (Toprol Xl) 50 mg PO Q12 [facility] Last Admin: 04/22/18 10:13 Dose: 50 mg Pantoprazole Sodium (Protonix Ec Tab) 40 mg PO DAILY [facility] Last Admin: 04/22/18 10:12 Dose: 40 mg Prednisone (Prednisone Tab) 60 mg PO DAILY [facility] Last Admin: 04/22/18 10:10 Dose: 60 mg Tamsulosin HCl (Flomax) 0.4 mg PO QPM [facility] Last Admin: 04/21/18 18:04 Dose: 0.4 mg Vitamin B Complex/Vit C/Folic Acid (Nephro-Jj) 1 tab PO DAILY [facility] Last Admin: 04/22/18 10:10 Dose: 1 tab - Labs Labs: 04/21/18 09:11 04/21/18 09:11 PT 16.2 Seconds (9.8-13.1) H 04/14/18 09:53 INR 1.5 04/14/18 09:53 APTT 29.7 Seconds (25.6-37.1) 04/14/18 09:53 - Constitutional Appears: Non-toxic, No Acute Distress, Cachectic, Chronically Ill - Head Exam Head Exam: NORMOCEPHALIC - Eye Exam Eye Exam: PERRL. absent: Scleral icterus Pupil Exam: NORMAL ACCOMODATION - ENT Exam ENT Exam: Mucous Membranes Dry - Neck Exam Neck Exam: absent: Lymphadenopathy - Respiratory Exam Respiratory Exam: Decreased Breath Sounds, Rhonchi - Cardiovascular Exam Cardiovascular Exam: REGULAR RHYTHM, +S1, +S2 - GI/Abdominal Exam GI & Abdominal Exam: Distended, Soft - Rectal Exam Rectal Exam: Deferred - Exam Exam: NORMAL INSPECTION - Extremities Exam Extremities Exam: absent: Pedal Edema - Back Exam Back Exam: absent: CVA tenderness (L), CVA tenderness (R) - Neurological Exam Neurological Exam: Alert, Awake, Oriented x3 - Psychiatric Exam Psychiatric exam: Normal Mood - Skin Skin Exam: Dry Assessment and Plan (1) A-fib Status: Acute (2) Acute on chronic renal failure Status: Acute (3) Altered mental status Status: Acute (4) Anemia Status: Acute (5) Atrial enlargement, bilateral Status: Acute (6) Enlarged RV (right ventricle) Status: Acute (7) Pulmonary infiltrate Status: Acute (8) Pulmonary nodules/lesions, multiple Status: Acute (9) UTI (urinary tract infection) Status: Acute - Assessment and Plan (Free Text) Assessment: Acute Kidney Injury due to AL-3 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
--- NOTE | 2018-04-22 15:41 | RAD ---
Date of service: 04/22/2018 HISTORY: Pulmonary infiltrate COMPARISON: 04/20/2018 FINDINGS: LUNGS: No active pulmonary disease. PLEURA: No significant pleural effusion identified, no pneumothorax apparent. CARDIOVASCULAR: Mild cardiomegaly. Moderate vascular congestion right greater than left. OSSEOUS STRUCTURES: No significant abnormalities. VISUALIZED UPPER ABDOMEN: Normal. OTHER FINDINGS: Dialysis catheter in the SVC IMPRESSION: Moderate vascular congestion right greater than left
--- NOTE | 2018-04-22 20:41 | CP.PCM.PN ---
Subjective - Date & Time of Evaluation Date of Evaluation: 04/22/18 Time of Evaluation: 22:00 - Subjective Subjective: PT WITHOUT COMPLAINTS. Objective - Vital Signs/Intake and Output Vital Signs (last 24 hours): Temp Pulse Resp BP Pulse Ox 98.5 F 102 H 20 156/94 H 97 04/22/18 19:06 04/22/18 19:06 04/22/18 19:06 04/22/18 19:06 04/22/18 19:06 - Medications Medications: Current Medications Acetaminophen (Tylenol 325mg Tab) 650 mg PO Q6H PRN PRN Reason: Fever >100.4 F Acetaminophen (Tylenol 325mg Tab) 650 mg PO Q6 PRN PRN Reason: Pain, moderate (4-7) Last Admin: 04/14/18 20:49 Dose: 650 mg Calcium Acetate (Phoslo) 667 mg PO TIDCC [facility] Last Admin: 04/22/18 17:50 Dose: 667 mg Dapsone (Dapsone) 100 mg PO DAILY [facility] PRN Reason: Protocol Last Admin: 04/22/18 13:45 Dose: 100 mg Epoetin Charles (Procrit) 14,000 unit IV MWF [facility] Last Admin: 04/20/18 10:30 Dose: Not Given Finasteride (Proscar) 5 mg PO DAILY [facility] Last Admin: 04/22/18 10:12 Dose: 5 mg Fluticasone Propionate (Flonase) 1 spr [facility] DAILY PRN PRN Reason: Nasal congestion Guaifenesin (Mucinex La) 1,200 mg PO Q12 [facility] Last Admin: 04/22/18 10:09 Dose: 1,200 mg Vancomycin HCl 1 gm/ Sodium (Chloride) 250 mls @ 166.667 mls/hr IVPB QOTHERDAY [facility] PRN Reason: Protocol Last Admin: 04/21/18 14:07 Dose: 166.667 mls/hr Cefazolin Sodium/Dextrose (Ancef Iv 2 Gm Duplex) 2 gm in 50 mls @ 50 mls/hr IVPB QOTHERDAY [facility] PRN Reason: Protocol Last Admin: 04/21/18 14:10 Dose: 50 mls/hr Levalbuterol HCl (Xopenex) 1.25 mg INH RQ4 PRN PRN Reason: Shortness of Breath Metoprolol Succinate (Toprol Xl) 50 mg PO Q12 [facility] Last Admin: 04/22/18 10:13 Dose: 50 mg Pantoprazole Sodium (Protonix Ec Tab) 40 mg PO DAILY [facility] Last Admin: 04/22/18 10:12 Dose: 40 mg Prednisone (Prednisone Tab) 60 mg PO DAILY [facility] Last Admin: 04/22/18 10:10 Dose: 60 mg Tamsulosin HCl (Flomax) 0.4 mg PO QPM [facility] Last Admin: 04/22/18 17:10 Dose: 0.4 mg Vitamin B Complex/Vit C/Folic Acid (Nephro-Jj) 1 tab PO DAILY [facility] Last Admin: 04/22/18 10:10 Dose: 1 tab - Labs Labs: 04/21/18 09:11 04/21/18 09:11 PT 16.2 Seconds (9.8-13.1) H 04/14/18 09:53 INR 1.5 04/14/18 09:53 APTT 29.7 Seconds (25.6-37.1) 04/14/18 09:53 - Constitutional Appears: Well - Head Exam Head Exam: ATRAUMATIC, NORMAL INSPECTION, NORMOCEPHALIC - Eye Exam Eye Exam: EOMI, Normal appearance, PERRL Pupil Exam: NORMAL ACCOMODATION, PERRL - ENT Exam ENT Exam: Mucous Membranes Moist, Normal Exam. absent: Mucous Membranes Dry, Normal External Ear Exam, Normal Oropharynx, TM's Normal Bilaterally - Neck Exam Neck Exam: Full ROM, Normal Inspection. absent: Lymphadenopathy, Meningismus, Tenderness, Thyromegaly - Respiratory Exam Respiratory Exam: Clear to Ausculation Bilateral, NORMAL BREATHING PATTERN. absent: Accessory Muscle Use, Chest Wall Tenderness, Decreased Breath Sounds, Prolonged Expiratory Phase, Rales, Rhonchi, Wheezes, Respiratory Distress, Stridor - Cardiovascular Exam Cardiovascular Exam: Irregular Rhythm, REGULAR RHYTHM, +S1, +S2, Murmur. absent : Bradycardia, Tachycardia, Clicks, Diastolic murmur, Gallop, JVD, RRR, Rubs, + S4 - GI/Abdominal Exam GI & Abdominal Exam: Soft, Normal Bowel Sounds. absent: Bruit, Distended, Firm , Guarding, Rigid, Tenderness, Diminished Bowel Sounds, Hernia, Hyperactive Bowel Sounds, Hypoactive Bowel Sounds, Organomegaly, Pulsatile Mass, Rebound, Mass - Rectal Exam Rectal Exam: Deferred - Extremities Exam Extremities Exam: Full ROM, Normal Capillary Refill, Normal Inspection. absent : Calf Tenderness, Joint Swelling, Pedal Edema, Tenderness - Back Exam Back Exam: NORMAL INSPECTION. absent: CVA tenderness (L), CVA tenderness (R), Full ROM, muscle spasm, paraspinal tenderness, rash noted, tenderness, vertebral tenderness - Neurological Exam Neurological Exam: Alert, Awake, CN II-XII Intact, Normal Gait, Oriented x3. absent: Abnormal Gait, Altered, Motor Sensory Deficit, Reflexes Normal - Psychiatric Exam Psychiatric exam: Normal Affect, Normal Mood. absent: Agitated, Anxious, Depressed, Flat Affect, Homicidal Ideation, Manic, Suicidal Ideation - Skin Skin Exam: Dry, Intact, Normal Color, Warm. absent: Abrasion, Cyanosis, Diaphoretic, Erythema, Mottled, Pallor, Pallor, Petechiae, Rash, Urticaria, Vesicles Assessment and Plan (1) Acute renal failure (ARF) Status: Acute (2) Enlarged RV (right ventricle) Status: Acute (3) Atrial enlargement, bilateral Status: Acute (4) A-fib Status: Acute (5) Volume overload Status: Acute (6) Biliary pleural effusion Status: Acute - Assessment and Plan (Free Text) Plan: PT APPEARS WELL COMPENSATED AFTER VOLUME REMOVAL WITH HD. WOULD CONT CURRENT MED REGIMENT.
[2018-04-23 04:56] VITALS: RESP 18
[2018-04-23 07:37] LABS: HEMOGLOBIN 8.7 g/dL (12.0-18.0); MEAN CELL VOLUME 91.9 fl (80.0-94.0); MEAN CORPUSCULAR HEMOGLOBIN 29.1 pg (27.0-31.0); MEAN CORPUSCULAR HGB CONC 31.6 g/dL (33.0-37.0); RBC 2.98 Mil/uL (4.40-5.90); RED CELL DISTRIBUTION WIDTH 27.9 % (11.5-14.5); WHITE BLOOD COUNT 8.9 K/uL (4.8-10.8)
[2018-04-23 08:22] LABS: ALB/GLOB RATIO 1.3 (1.0-2.1); ALBUMIN 2.7 g/dL (3.5-5.0); CALCIUM 8.4 mg/dL (8.4-10.2)
[2018-04-23] MEDS: guaiFENesin 600 mg ER Tab PO SCH (09:43)
[2018-04-23] MEDS: ceFAZolin IV 2 gm in Dextrose 2 GM/50 ML BAG IVPB SCH (13:40)
[2018-04-23] MEDS ORDERED: Epoetin Alfa 20000 UNIT/ML Inj IV ONE (14:00)
[2018-04-23] MEDS: Multivitamin Vitamin B Complex (Nephro-Vite) Tab PO SCH (14:36)
[2018-04-23] MEDS: Pantoprazole 40 mg EC Tab PO SCH (14:38)
[2018-04-23] MEDS: Metoprolol Succinate 50 mg XL Tab PO SCH (14:40)
[2018-04-23 17:46] VITALS: BP 135/72; PULSE 96; TEMP 97; O2SAT 97
--- NOTE | 2018-04-23 18:03 | CP.PCM.PN ---
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 s/p plasmapharesis 4 session discontinued at this point s/p pulse steroids and rituxan (04/05/18 and 04/21) REmains on 60 mg pred and PCP prophylaxis Hypertension control with meds as ordered. Patient not on ACEI/ARB due to QUINTON Monitor Input/Output, daily weights and renal function with basic metabolic panel continue with epogen PRBC as needed for anemia continue with weekly Vit D on phoslo planned for d/c today and outpt HD next week Subjective: seen and examined no complaints denies CP/SOB no nasuea/vomitting Physical Examination: General Appearance: Comfortable, in no acute respiratory distress, co-operative Vitals reviewed and noted as below Head; Atraumatic, normocephalic ENT: no ulcers no thrush. Tongue is midline. Oropharynx: no rash or ulcers. EYES: Pupils are equal, round and reactive to light accommodation. Eye muscles and extraocular movement intact. Sclera is anicteric. Neck; supple no lymphadenopathy, no thyromegaly or bruit Lungs: Normal respiratory rate/effort. Breath sounds bilateral decreased at bases Heart: Normal rate. s1s2 normal. No rub or gallop. Extremities: trace edema. No varicose veins Neurological: Patient is alert, awake and oriented to person, place and time. No focal deficit. Strength bilateral appropriate and equal Skin: Warm and dry. Normal turgor. No rash. Palpitation: Normal elasticity for age Abdomen: Abdomen is soft. Bowel sounds +. There is no abdominal tenderness, no guarding/rigidity no organomegaly Psych: lackl insight and normal affect/mood MSK: no joint tenderness or swelling. Digits and nails normal, no deformity : kidney or bladder not palpable access: tunnelled cathether Labs/imaging reviewed. Past medical history, past surgical history, family history, social history, allergy reviewed and noted as below Family hx: no hx of CKD. Rest non-contributory Objective - Vital Signs/Intake and Output Vital Signs (last 24 hours): Temp Pulse Resp BP Pulse Ox 97.0 F L 96 H 18 135/72 97 04/23/18 17:45 04/23/18 17:45 04/23/18 17:45 04/23/18 17:45 04/23/18 17:45 - Medications Medications: Current Medications Acetaminophen (Tylenol 325mg Tab) 650 mg PO Q6H PRN PRN Reason: Fever >100.4 F Acetaminophen (Tylenol 325mg Tab) 650 mg PO Q6 PRN PRN Reason: Pain, moderate (4-7) Last Admin: 04/14/18 20:49 Dose: 650 mg Calcium Acetate (Phoslo) 667 mg PO TIDCC [facility] Last Admin: 04/23/18 12:40 Dose: Not Given Epoetin Charles (Procrit) 14,000 unit IV MWF [facility] Last Admin: 04/20/18 10:30 Dose: Not Given Finasteride (Proscar) 5 mg PO DAILY [facility] Last Admin: 04/23/18 14:36 Dose: 5 mg Fluticasone Propionate (Flonase) 1 spr VALERIA DAILY PRN PRN Reason: Nasal congestion Guaifenesin (Mucinex La) 1,200 mg PO Q12 [facility] Last Admin: 04/23/18 09:43 Dose: Not Given Vancomycin HCl 1 gm/ Sodium (Chloride) 250 mls @ 166.667 mls/hr IVPB QOTHERDAY [facility] PRN Reason: Protocol Last Admin: 04/23/18 09:51 Dose: 166.667 mls/hr Cefazolin Sodium/Dextrose (Ancef Iv 2 Gm Duplex) 2 gm in 50 mls @ 50 mls/hr IVPB QOTHERDAY [facility] PRN Reason: Protocol Last Admin: 04/23/18 13:40 Dose: 50 mls/hr Levalbuterol HCl (Xopenex) 1.25 mg INH RQ4 PRN PRN Reason: Shortness of Breath Metoprolol Succinate (Toprol Xl) 50 mg PO Q12 [facility] Last Admin: 04/23/18 14:40 Dose: 50 mg Pantoprazole Sodium (Protonix Ec Tab) 40 mg PO DAILY [facility] Last Admin: 04/23/18 14:38 Dose: 40 mg Prednisone (Prednisone Tab) 60 mg PO DAILY [facility] Last Admin: 04/23/18 14:37 Dose: 60 mg Tamsulosin HCl (Flomax) 0.4 mg PO QPM [facility] Last Admin: 04/22/18 17:10 Dose: 0.4 mg Vitamin B Complex/Vit C/Folic Acid (Nephro-Jj) 1 tab PO DAILY [facility] Last Admin: 04/23/18 14:36 Dose: 1 tab - Labs Labs: 04/23/18 06:00 04/23/18 06:00 PT 16.2 Seconds (9.8-13.1) H 04/14/18 09:53 INR 1.5 04/14/18 09:53 APTT 29.7 Seconds (25.6-37.1) 04/14/18 09:53
--- NOTE | 2018-04-27 14:37 | PQF ---
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 Please clarify in the documentation diagnoses for the following medication(s). Medications: Rituximab The patient's Clinical Indicators include: 04/[address] Sandoval documented "Pt started on Rituximab." Query created by: Jaye Dangelo on 04/25/2018 3:53 PM Electronically signed by: Timbo Moon MD 04/27/2018 2:34 PM
== END 2018-04-23 18:20 | DRG 665 ==
LOC: H.ER 15:41 → SUPCPDRO 15:41 → H.ERHOLD 19:20 → H.ICU/CCU 03-22 10:13 → H.TEL 03-25 17:39 → H.MEDSURG1 03-29 13:16 → H.TEL 04-12 02:24
PROVIDERS: ADMIT Family Medicine; ATTEND Family Medicine
PROC: 02HV33Z Insertion of Infusion Device into Superior Vena Cava, Percutaneous Approach (ICD-10-PCS; 2018-03-22)
PROC: 30233N1 Transfusion of Nonautologous Red Blood Cells into Peripheral Vein, Percutaneous Approach (ICD-10-PCS; 2018-03-22)
PROC: 0TB13ZX Excision of Left Kidney, Percutaneous Approach, Diagnostic (ICD-10-PCS; principal; 2018-03-28 13:30)
PROC: 0VB08ZZ Excision of Prostate, Via Natural or Artificial Opening Endoscopic (ICD-10-PCS; 2018-04-01)
PROC: 0TCB8ZZ Extirpation of Matter from Bladder, Via Natural or Artificial Opening Endoscopic (ICD-10-PCS; 2018-04-01)
PROC: 5A0955Z Assistance with Respiratory Ventilation, Greater than 96 Consecutive Hours (ICD-10-PCS; 2018-04-01)
PROC: 05HM33Z Insertion of Infusion Device into Right Internal Jugular Vein, Percutaneous Approach (ICD-10-PCS; 2018-04-05)
PROC: 6A551Z3 Pheresis of Plasma, Multiple (ICD-10-PCS; 2018-04-08)
PROC: 5A1D70Z Performance of Urinary Filtration, Intermittent, Less than 6 Hours Per Day (ICD-10-PCS; 2018-04-12)
PROC: 05HM33Z Insertion of Infusion Device into Right Internal Jugular Vein, Percutaneous Approach (ICD-10-PCS; 2018-04-19)
DX: N01.7 Rapidly progressive nephritic syndrome with diffuse crescentic glomerulonephritis (principal); J18.9 Pneumonia, unspecified organism; J96.90 Respiratory failure, unspecified, unspecified whether with hypoxia or hypercapnia; G93.41 Metabolic encephalopathy; M31.31 Wegener's granulomatosis with renal involvement; N39.0 Urinary tract infection, site not specified; N99.820 Postprocedural hemorrhage of a genitourinary system organ or structure following a genitourinary system procedure; K83.0 Cholangitis; E87.1 Hypo-osmolality and hyponatremia; E87.2 Acidosis; L03.114 Cellulitis of left upper limb; N18.6 End stage renal disease; N17.9 Acute kidney failure, unspecified; N25.81 Secondary hyperparathyroidism of renal origin; E87.5 Hyperkalemia; Z87.891 Personal history of nicotine dependence; E86.0 Dehydration; E11.22 Type 2 diabetes mellitus with diabetic chronic kidney disease; B96.20 Unspecified Escherichia coli [E. coli] as the cause of diseases classified elsewhere; N42.1 Congestion and hemorrhage of prostate; D50.9 Iron deficiency anemia, unspecified; E11.21 Type 2 diabetes mellitus with diabetic nephropathy; I51.7 Cardiomegaly; E83.39 Other disorders of phosphorus metabolism; D63.1 Anemia in chronic kidney disease; Y83.8 Other surgical procedures as the cause of abnormal reaction of the patient, or of later complication, without mention of misadventure at the time of the procedure; I77.6 Arteritis, unspecified; D69.59 Other secondary thrombocytopenia; E87.70 Fluid overload, unspecified; I48.2 Chronic atrial fibrillation; N32.89 Other specified disorders of bladder; S40.022A Contusion of left upper arm, initial encounter; E87.6 Hypokalemia; Z99.2 Dependence on renal dialysis; E88.09 Other disorders of plasma-protein metabolism, not elsewhere classified; C61 Malignant neoplasm of prostate

== ENCOUNTER 2018-04-25 22:25 | Inpatient (IN) | payer OTHER ==
[2018-04-25 22:25] VITALS: PULSE 123; BMI 30.2
--- NOTE | 2018-04-25 23:20 | ED PDOC ---
HPI: Male Pain Time Seen by Provider: 04/25/18 22:32 Chief Complaint (Nursing): Male Genitourinary Chief Complaint (Provider): Male Genitourinary History Per: Other ([facility]) History/Exam Limitations: clinical condition Onset/Duration Of Symptoms: Days (x1) Current Symptoms Are (Timing): Still Present Additional Complaint(s): 77 y/o male with brought to the ED for evaluation of hematuria. History from patient is unreliable due to clinical condition. History obtained from [facility] for gross hematuria starting today and state patient was recently hospitalized for renal failure and is on dialysis (Tuesdays, and Saturdays). Patient is currently offering no complaints at this time. PMD: Dr. Moon Past Medical History Reviewed: Historical Data, Nursing Documentation, Vital Signs Vital Signs: Last Vital Signs Temp 98.2 F 04/25/18 22:27 Pulse 101 H 04/25/18 22:27 Resp 16 04/25/18 22:27 BP 146/77 04/25/18 22:27 Pulse Ox 99 04/25/18 22:27 - Medical History PMH: Anemia, Arthritis, Benign Prostatic Hyperplasia Denies: HIV, HTN, Chronic Kidney Disease - Surgical History Surgical History: Appendectomy - Family History Family History: States: Unknown Family Hx - Living Arrangements Living Arrangements: [facility] - Home Medications Home Medications: Ambulatory Orders Medication Instructions Recorded Tamsulosin [Flomax] 0.4 mg PO DAILY 04/28/16 Finasteride [Proscar] 5 mg PO DAILY 03/21/18 Fluticasone Propionate [Flonase 1 spray VALERIA DAILY PRN 03/21/18 Allergy Relief] Losartan/Hydrochlorothiazide 1 tab PO DAILY 03/21/18 [Losartan-Hctz 50-12.5 mg Tab] Pantoprazole Sodium [Protonix] 40 mg PO DAILY 03/21/18 Dapsone 100 mg PO DAILY tab 04/22/18 Levalbuterol [Xopenex] 1.25 mg INH RQ4 PRN neb 04/22/18 Metoprolol Succinate XL [Toprol XL] 50 mg PO Q12 tab 04/22/18 Vitamin B Complex/Vit C/Folic 1 tab PO DAILY tab 04/22/18 [Nephro-Jj] guaiFENesin [Mucinex LA] 1,200 mg PO Q12 tab 04/22/18 predniSONE [predniSONE Tab] 60 mg PO DAILY tab 04/22/18 Vancomycin/0.9 % Sod Chloride 1 gm IV TTS 6 Days plast..bag 04/23/18 [Vanco 1 Gram/250 ml-0.9% NaCl] Acetaminophen [Tylenol] 650 mg PO Q4 PRN 04/26/18 Acetaminophen [Tylenol] 650 mg PO Q4 PRN 04/26/18 Bacitracin 1 each TP DAILY 04/26/18 Calcium Acetate [Phoslo] 667 mg PO TID 04/26/18 Calcium Acetate [Phoslo] 667 mg PO TTS 04/26/18 Magnesium Hydroxide [Milk Of 30 ml PO DAILY PRN 04/26/18 Magnesia] - Allergies Allergies/Adverse Reactions: Allergies Allergy/AdvReac Type Severity Reaction Status Date / Time No Known Allergies Allergy Verified 01/02/14 08:07 Review of Systems ROS Statement: Except As Marked, All Systems Reviewed And Found Negative Genitourinary Male: Positive for: Hematuria Physical Exam - Reviewed Nursing Documentation Reviewed: Yes Vital Signs Reviewed: Yes - Physical Exam Appears: Positive for: No Acute Distress (but chronically ill) Head Exam: Positive for: ATRAUMATIC, NORMOCEPHALIC Skin: Positive for: Warm, Dry, Pallor (with large ecchymotic yosef on the left inner arm and sonya ecchymotic area on the right arm. ) Eye Exam: Positive for: EOMI, PERRL ENT: Positive for: Pharynx Is (cleawr), Other (mucus membranes moist) Neck: Positive for: Painless ROM, Supple Cardiovascular/Chest: Positive for: Regular Rate, Rhythm, Other (Dialysis shiley noted on the right upper chest wall (clean, dry and intact)). Negative for: Murmur Respiratory: Positive for: Rales (in the bases bilaterally) Gastrointestinal/Abdominal: Positive for: Normal Exam, Soft. Negative for: Tenderness Male Genital Exam: Positive for: normal genitalia (external), other (blood at the meatus ). Negative for: lesions, testicular tenderness (R), testicular tenderness (L) Extremity: Positive for: Normal ROM (Full ROM ), Tenderness (Minimal tenderness to palpation to the inner arms. No indurations), Swelling (Biltaeral pitting edema) Lymphatic: Negative for: Adenopathy Neurologic/Psych: Positive for: Alert. Negative for: Motor/Sensory Deficits - Laboratory Results Result Diagrams: 04/25/18 23:48 04/25/18 23:48 - ECG O2 Sat by Pulse Oximetry: 99 (RA) Pulse Ox Interpretation: Normal Medical Decision Making Medical Decision Making: Time: 2248 Impression: Hematuria Differentials include but not limited to cystitis, UTI, coagulopathy, thrombocytopenia and anemia Plan: -- Type and Screen -- EKG -- CMP -- Lact Acid, Plasma -- Magnesium -- Phosphorus -- CBC with differentials -- PTT -- Prothrombin Time -- CXR Portable -- Blood Culture -- Urine Culture -- IV Insertion -- Urinalysis RN unable to access peripheral vein for blood and IV placement. LEFT EJ 20g IV line placed by me for blood draw and medication/transfusion if necessary. Pt tolerated placement well. Labs demonstrate anemia, decreased c/w previous. Needs hospitalization for further evaluation and management. DW Dr Tineo PMD. Scribe Attestation: Documented by Ivania Soria acting as a scribe for Dr. Leila Echevarria. Provider Scribe Attestation: All medical record entries made by the Scribe were at my direction and personally dictated by me. I have reviewed the chart and agree that the record accurately reflects my personal performance of the history, physical exam, medical decision making, and the department course for this patient. I have also personally directed, reviewed, and agree with the discharge instructions and disposition. Disposition - Clinical Impression Clinical Impression: Renal failure, A-fib Counseled Patient/Family Regarding: Studies Performed, Diagnosis - Disposition Disposition Time: 01:00 Condition: FAIR - Pt Status Changed To: Hospital Disposition Of: Observation - POA Present On Arrival: None
[2018-04-25 23:51] LABS: BASO % 0.3 % (0.0-2.0); EOS % 0.6 % (0.0-4.0); HEMOGLOBIN 7.3 g/dL (12.0-18.0); LYMPH # 0.5 K/uL (1.0-4.3); LYMPH % 6.5 % (20.0-40.0); MEAN CORPUSCULAR HEMOGLOBIN 29.5 pg (27.0-31.0); MEAN CORPUSCULAR HGB CONC 32.1 g/dL (33.0-37.0); MEAN PLATELET VOLUME 7.2 fl (7.2-11.7); MONO # 0.6 K/uL (0.0-0.8); MONO % 7.9 % (0.0-10.0); NEUT # 6.7 K/uL (1.8-7.0); NEUT % 84.7 % (50.0-75.0); PLATELET COUNT 201 K/uL (130-400); RBC 2.49 Mil/uL (4.40-5.90); RED CELL DISTRIBUTION WIDTH 26.9 % (11.5-14.5); WHITE BLOOD COUNT 7.9 K/uL (4.8-10.8)
[2018-04-25 23:58] LABS: INR 1.2; PROTHROMBIN TIME 13.7 Seconds (9.8-13.1)
[2018-04-26 00:01] LABS: PARTIAL THROMBOPLASTIN TIME 26.4 Seconds (25.6-37.1)
[2018-04-26 00:03] LABS: ALB/GLOB RATIO 1.1 (1.0-2.1); ALBUMIN 2.4 g/dL (3.5-5.0)
[2018-04-26 01:31] LABS: ANISOCYTOSIS SLIGHT; BANDS 1 % (0-2); BASOPHIL 1 % (0-2); EOSINOPHIL 1 % (0-7); HYPOCHROMIC MODERATE; LYMPHOCYTE 4 % (20-50); MONOCYTE 6 % (0-10); MYELOCYTE 2 % (0-0); NEUTROPHIL 85 % (42-75); PLATELET ESTIMATE NORMAL (NORMAL); TOTAL CELLS COUNTED 100
[2018-04-26 01:32] LABS: LARGE PLATELETS PRESENT; STOMATOCYTES SLIGHT
[2018-04-26] MEDS ORDERED: Levalbuterol 1.25 MG/3 ML Inhal Soln UD INH PRN (06:52)
[2018-04-26] MEDS ORDERED: Magnesium Hydroxide Susp 30 ml UD PO PRN (06:52)
--- NOTE | 2018-04-26 08:21 | CP.PCM.HP ---
<Eduardo Hardyo - Last Filed: 04/26/18 15:29> History of Present Illness - History of Present Illness History of Present Illness: 77 y/o M with a PMHx of ductal prostate cancer, ESRD and HTN was admitted due [facility]. On blood work, Hgb is 7.3. --Today, pt evaluated and examined with Dr Tineo by bedside. Pt reports feeling OK. Pt does NOT know why he is here. Pt denies fever, chills, chest pain, SOB, abdominal pain, nausea, vomiting. Pt afebrile with No acute events overnight. 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 Present on Admission - Present on Admission Any Indicators Present on Admission: No Review of Systems - Constitutional Constitutional: absent: Anorexia, Chills, Fever - EENT Eyes: absent: Change in Vision - Cardiovascular Cardiovascular: absent: Chest Pain, Palpitations - Respiratory Respiratory: absent: Cough, Dyspnea - Gastrointestinal Gastrointestinal: absent: Abdominal Pain, Diarrhea, Nausea, Vomiting - Genitourinary Genitourinary: absent: Dysuria, Hematuria, Nocturia, Urinary Frequency Past Patient History - Infectious Disease Hx of Infectious Diseases: None - Past Medical History & Family History Past Medical History?: Yes - Past Social History Smoking Status: Former Smoker - CARDIAC Hx Cardiac Disorders: Yes Hx Atrial Fibrillation: Yes Hx Congestive Heart Failure: Yes Hx Hypertension: Yes - PULMONARY Hx Respiratory Disorders: No - NEUROLOGICAL Hx Neurological Disorder: No - HEENT Hx HEENT Problems: Yes - RENAL Hx Chronic Kidney Disease: Yes Hx Dialysis: Yes Type of Dialysis Access: right sc permacath - ENDOCRINE/METABOLIC Hx Endocrine Disorders: Yes - HEMATOLOGICAL/ONCOLOGICAL Hx Blood Disorders: Yes Hx Anemia: Yes - INTEGUMENTARY Hx Dermatological Problems: No - MUSCULOSKELETAL/RHEUMATOLOGICAL Hx Falls: Yes - GASTROINTESTINAL Hx Gastrointestinal Disorders: No - GENITOURINARY/GYNECOLOGICAL Hx Prostate Cancer: Yes - PSYCHIATRIC Hx Substance Use: No - SURGICAL HISTORY Hx Appendectomy: Yes - ANESTHESIA Hx Anesthesia: Yes Hx Anesthesia Reactions: No Hx Malignant Hyperthermia: No Meds Allergies/Adverse Reactions: Allergies Allergy/AdvReac Type Severity Reaction Status Date / Time No Known Allergies Allergy Verified 01/02/14 08:07 Physical Exam - Constitutional Appears: No Acute Distress - Head Exam Head Exam: NORMAL INSPECTION - Eye Exam Eye Exam: EOMI - ENT Exam ENT Exam: Mucous Membranes Dry - Neck Exam Neck exam: Positive for: Full Rom. Negative for: Meningismus - Respiratory Exam Respiratory Exam: NORMAL BREATHING PATTERN. absent: Rhonchi, Wheezes - Cardiovascular Exam Cardiovascular Exam: +S1, +S2 - GI/Abdominal Exam GI & Abdominal Exam: Soft. absent: Distended, Guarding, Tenderness - Extremities Exam Extremities exam: Positive for: full ROM. Negative for: calf tenderness - Neurological Exam Neurological exam: Alert Results - Vital Signs Recent Vital Signs: Last Vital Signs Temp 98 F 04/26/18 06:07 Pulse 94 H 04/26/18 07:58 Resp 18 04/26/18 07:58 BP 139/76 04/26/18 06:07 Pulse Ox 97 04/26/18 07:58 - Labs Result Diagrams: 04/25/18 23:48 04/25/18 23:48 Labs: Laboratory Results - last 24 hr 04/25/18 04/25/18 04/25/18 23:48 23:48 23:48 WBC 7.9 RBC 2.49 L Hgb 7.3 L Hct 22.9 L MCV 92.0 MCH 29.5 MCHC 32.1 L RDW 26.9 H Plt Count 201 MPV 7.2 Neut % (Auto) 84.7 H Lymph % (Auto) 6.5 L [place] % (Auto) 7.9 Eos % (Auto) 0.6 Baso % (Auto) 0.3 Neut # (Auto) 6.7 Lymph # (Auto) 0.5 L [place] # (Auto) 0.6 Eos # (Auto) 0.0 Baso # (Auto) 0.0 Neutrophils % (Manual) 85 H Band Neutrophils % 1 Lymphocytes % (Manual) 4 L Monocytes % (Manual) 6 Eosinophils % (Manual) 1 Basophils % (Manual) 1 Myelocytes % 2 H Platelet Estimate Normal Large Platelets Present Hypochromasia (manual) Moderate Anisocytosis (manual) Slight Stomatocytes Slight PT 13.7 H INR 1.2 APTT 26.4 Sodium 135 Potassium 4.4 Chloride 101 Carbon Dioxide 27 Anion Gap 11 BUN 60 H Creatinine 5.5 H Est GFR ( Amer) 12 Est GFR (Non-Af Amer) 10 Random Glucose 85 Lactic Acid Calcium 8.0 L Phosphorus 4.4 Magnesium 2.1 Total Bilirubin 0.6 AST 19 ALT 23 Alkaline Phosphatase 51 Total Protein 4.5 L Albumin 2.4 L Globulin 2.1 L Albumin/Globulin Ratio 1.1 Blood Type Antibody Screen BBK History Checked 04/25/18 04/26/18 23:48 04:52 WBC RBC Hgb Hct MCV MCH MCHC RDW Plt Count MPV Neut % (Auto) Lymph % (Auto) [place] % (Auto) Eos % (Auto) Baso % (Auto) Neut # (Auto) Lymph # (Auto) [place] # (Auto) Eos # (Auto) Baso # (Auto) Neutrophils % (Manual) Band Neutrophils % Lymphocytes % (Manual) Monocytes % (Manual) Eosinophils % (Manual) Basophils % (Manual) Myelocytes % Platelet Estimate Large Platelets Hypochromasia (manual) Anisocytosis (manual) Stomatocytes PT INR APTT Sodium Potassium Chloride Carbon Dioxide Anion Gap BUN Creatinine Est GFR ( Amer) Est GFR (Non-Af Amer) Random Glucose Lactic Acid 0.7 Calcium Phosphorus Magnesium Total Bilirubin AST ALT Alkaline Phosphatase Total Protein Albumin Globulin Albumin/Globulin Ratio Blood Type O POSITIVE Antibody Screen Negative BBK History Checked Patient has bt Assessment & Plan (1) Hematuria Status: Acute (2) Prostate cancer Status: Acute - Assessment and Plan (Free Text) Assessment: 77 y/o M with a PMHx of ductal prostate cancer, ESRD and HTN was admitted due to gross hematuria. --Home meds resume --Hematology consult order, Dr Armas --Nephrology consult order, Dr Bernabe --Urology consult ordered, Dr Jeffries --Vancomycin 1 gr --Hemodyalisis today. - Date & Time Date: 04/26/18 Time: 12:00 <Hans Tineo - Last Filed: 04/26/18 18:55> Results - Vital Signs Recent Vital Signs: Last Vital Signs Temp 98.7 F 04/26/18 16:22 Pulse 96 H 04/26/18 16:22 Resp 17 04/26/18 16:22 BP 127/78 04/26/18 16:22 Pulse Ox 97 04/26/18 16:22 - Labs Result Diagrams: 04/25/18 23:48 04/25/18 23:48 Labs: Laboratory Results - last 24 hr 04/25/18 04/25/18 04/25/18 23:48 23:48 23:48 WBC 7.9 RBC 2.49 L Hgb 7.3 L Hct 22.9 L MCV 92.0 MCH 29.5 MCHC 32.1 L RDW 26.9 H Plt Count 201 MPV 7.2 Neut % (Auto) 84.7 H Lymph % (Auto) 6.5 L [place] % (Auto) 7.9 Eos % (Auto) 0.6 Baso % (Auto) 0.3 Neut # (Auto) 6.7 Lymph # (Auto) 0.5 L [place] # (Auto) 0.6 Eos # (Auto) 0.0 Baso # (Auto) 0.0 Neutrophils % (Manual) 85 H Band Neutrophils % 1 Lymphocytes % (Manual) 4 L Monocytes % (Manual) 6 Eosinophils % (Manual) 1 Basophils % (Manual) 1 Myelocytes % 2 H Platelet Estimate Normal Large Platelets Present Hypochromasia (manual) Moderate Anisocytosis (manual) Slight Stomatocytes Slight PT 13.7 H INR 1.2 APTT 26.4 Sodium 135 Potassium 4.4 Chloride 101 Carbon Dioxide 27 Anion Gap 11 BUN 60 H Creatinine 5.5 H Est GFR ( Amer) 12 Est GFR (Non-Af Amer) 10 Random Glucose 85 Lactic Acid Calcium 8.0 L Phosphorus 4.4 Magnesium 2.1 Total Bilirubin 0.6 AST 19 ALT 23 Alkaline Phosphatase 51 Total Protein 4.5 L Albumin 2.4 L Globulin 2.1 L Albumin/Globulin Ratio 1.1 Blood Type Antibody Screen Crossmatch BBK History Checked 04/25/18 04/26/18 23:48 04:52 WBC RBC Hgb Hct MCV MCH MCHC RDW Plt Count MPV Neut % (Auto) Lymph % (Auto) [place] % (Auto) Eos % (Auto) Baso % (Auto) Neut # (Auto) Lymph # (Auto) [place] # (Auto) Eos # (Auto) Baso # (Auto) Neutrophils % (Manual) Band Neutrophils % Lymphocytes % (Manual) Monocytes % (Manual) Eosinophils % (Manual) Basophils % (Manual) Myelocytes % Platelet Estimate Large Platelets Hypochromasia (manual) Anisocytosis (manual) Stomatocytes PT INR APTT Sodium Potassium Chloride Carbon Dioxide Anion Gap BUN Creatinine Est GFR ( Amer) Est GFR (Non-Af Amer) Random Glucose Lactic Acid 0.7 Calcium Phosphorus Magnesium Total Bilirubin AST ALT Alkaline Phosphatase Total Protein Albumin Globulin Albumin/Globulin Ratio Blood Type O POSITIVE Antibody Screen Negative Crossmatch See Detail BBK History Checked Patient has bt Assessment & Plan - Assessment and Plan (Free Text) Assessment: Patient was personally seen and examined by me in rounds with residents. Available labs and diagnostic data reviewed. Case, Patient's condition and management plan discussed with residents in rounds. Agree with resident's progress note. Plan: As ordered.
--- NOTE | 2018-04-26 08:28 | RAD ---
Date of service: 04/25/2018 HISTORY: anemia COMPARISON: 04/22/2018. FINDINGS: Right-sided dialysis catheter terminates in the SVC. LUNGS: The lungs are well inflated. There is interval improved aeration in the lungs with residual moderate pulmonary venous congestion. There is linear atelectasis in the left upper lobe and subsegmental atelectasis in the right lower lobe. . PLEURA: Small pleural effusions, no pneumothorax apparent. CARDIOVASCULAR: Persistent mild cardiomegaly. OSSEOUS STRUCTURES: No significant abnormalities. VISUALIZED UPPER ABDOMEN: Normal. OTHER FINDINGS: None. IMPRESSION: Improving pulmonary venous congestion. Mild cardiomegaly and small pleural effusions.
[2018-04-26] MEDS ORDERED: Patient's Own Med (Vancomycin/0.9 % Sod Chloride [Vanco 1 Gram/250 Ml-0.9% Nacl] 1 GM) IV SCH (09:00)
[2018-04-26] MEDS ORDERED: Calcium Acetate 667 MG Capsule PO SCH (09:00)
--- NOTE | 2018-04-26 09:27 | CARD ---
APPROVED REPORT Date of service: 04/26/2018 EKG Measurement Heart [id number] <Conclusion> Atrial fibrillation Low voltage QRS Abnormal ECG
[2018-04-26] MEDS: Bacitracin OINT 15GM TP SCH (10:33)
[2018-04-26] MEDS: Metoprolol Succinate 50 mg XL Tab PO SCH ×2 (10:34→21:29)
--- NOTE | 2018-04-26 11:40 | CP.PCM.CON ---
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) Patient was treated with the pulses steroid and then oral steroid and also was treated with rituximab 1 g twice 1 month apart also he was treated with plasma phoresis and he did not respond , continue to need dialysis and he presented this admission with the gross hematuria patient was scheduled to go outpatient for hemodialysis today and he came with this gross hematuria Review of Systems - Constitutional Constitutional: absent: Chills - EENT Nose/Mouth/Throat: absent: Epistaxis, Nasal Discharge - Cardiovascular Cardiovascular: absent: Acrocyanosis, Edema - Respiratory Respiratory: absent: Cough, Chest Congestion - Gastrointestinal Gastrointestinal: absent: Abdominal Pain - Musculoskeletal Musculoskeletal: Muscle Weakness - Neurological Neurological: absent: Confusion, Focal Weakness - Endocrine Endocrine: Fatigue - Hematologic/Lymphatic Hematologic: Easy Bleeding Past Patient History - Infectious Disease Hx of Infectious Diseases: None - Past Medical History & Family History Past Medical History?: Yes - Past Social History Smoking Status: Former Smoker - CARDIAC Hx Cardiac Disorders: Yes Hx Atrial Fibrillation: Yes Hx Congestive Heart Failure: Yes Hx Hypertension: Yes - PULMONARY Hx Respiratory Disorders: No - NEUROLOGICAL Hx Neurological Disorder: No - HEENT Hx HEENT Problems: Yes - RENAL Hx Chronic Kidney Disease: Yes Hx Dialysis: Yes Type of Dialysis Access: right sc permacath - ENDOCRINE/METABOLIC Hx Endocrine Disorders: Yes - HEMATOLOGICAL/ONCOLOGICAL Hx Blood Disorders: Yes Hx Anemia: Yes - INTEGUMENTARY Hx Dermatological Problems: No - MUSCULOSKELETAL/RHEUMATOLOGICAL Hx Falls: Yes - GASTROINTESTINAL Hx Gastrointestinal Disorders: No - GENITOURINARY/GYNECOLOGICAL Hx Prostate Cancer: Yes - PSYCHIATRIC Hx Substance Use: No - SURGICAL HISTORY Hx Appendectomy: Yes - ANESTHESIA Hx Anesthesia: Yes Hx Anesthesia Reactions: No Hx Malignant Hyperthermia: No Meds Allergies/Adverse Reactions: Allergies Allergy/AdvReac Type Severity Reaction Status Date / Time No Known Allergies Allergy Verified 01/02/14 08:07 - Medications Medications: Current Medications Acetaminophen (Tylenol 325mg Tab) 650 mg PO Q4 PRN PRN Reason: Fever >100.4 F Acetaminophen (Tylenol 325mg Tab) 650 mg PO Q4 PRN PRN Reason: Pain, Mild (1-3) Bacitracin (Bacitracin Oint) 1 applic TP DAILY [facility] Last Admin: 04/26/18 10:33 Dose: 1 applic Calcium Acetate (Phoslo) 667 mg PO TID [facility] Dapsone (Dapsone) 100 mg PO DAILY [facility] PRN Reason: Protocol Finasteride (Proscar) 5 mg PO DAILY [facility] Fluticasone Propionate (Flonase) 1 spr [facility] DAILY PRN PRN Reason: Nasal congestion Guaifenesin (Mucinex La) 1,200 mg PO Q12 [facility] HCTZ/Losartan Potassium (Hyzaar 12.5 Mg-50 Mg) 1 tab PO DAILY [facility] Vancomycin HCl 1 gm/ Sodium (Chloride) 250 mls @ 166.667 mls/hr IVPB TTS [facility] Levalbuterol HCl (Xopenex) 1.25 mg INH RQ4 PRN PRN Reason: Shortness of Breath Magnesium Hydroxide (Milk Of Magnesia) 30 ml PO DAILY PRN PRN Reason: Constipation Metoprolol Succinate (Toprol Xl) 50 mg PO Q12 [facility] Last Admin: 04/26/18 10:34 Dose: Not Given Pantoprazole Sodium (Protonix Ec Tab) 40 mg PO DAILY [facility] Prednisone (Prednisone Tab) 60 mg PO DAILY [facility] Tamsulosin HCl (Flomax) 0.4 mg PO DAILY [facility] Vitamin B Complex/Vit C/Folic Acid (Nephro-Jj) 1 tab PO DAILY [facility] Physical Exam - Constitutional Appears: No Acute Distress - ENT Exam ENT Exam: Mucous Membranes Moist - Neck Exam Neck exam: Negative for: Lymphadenopathy - Respiratory Exam Respiratory Exam: absent: Chest Wall Tenderness - Cardiovascular Exam Cardiovascular Exam: REGULAR RHYTHM, RRR. absent: Gallop, JVD, Rubs - GI/Abdominal Exam GI & Abdominal Exam: Normal Bowel Sounds. absent: Guarding - Extremities Exam Extremities exam: Negative for: calf tenderness - Back Exam Back exam: absent: CVA tenderness (L), CVA tenderness (R) - Neurological Exam Neurological exam: Alert - Psychiatric Exam Psychiatric exam: Normal Affect Results - Vital Signs Recent Vital Signs: Last Vital Signs Temp 97.8 F 04/26/18 08:57 Pulse 105 H 04/26/18 10:34 Resp 20 04/26/18 08:57 BP 138/78 04/26/18 10:34 Pulse Ox 98 04/26/18 08:57 - Labs Result Diagrams: 04/25/18 23:48 08/27/18 23:48 Labs: Laboratory Results - last 24 hr 04/25/18 04/25/18 04/25/18 23:48 23:48 23:48 WBC 7.9 RBC 2.49 L Hgb 7.3 L Hct 22.9 L MCV 92.0 MCH 29.5 MCHC 32.1 L RDW 26.9 H Plt Count 201 MPV 7.2 Neut % (Auto) 84.7 H Lymph % (Auto) 6.5 L [place] % (Auto) 7.9 Eos % (Auto) 0.6 Baso % (Auto) 0.3 Neut # (Auto) 6.7 Lymph # (Auto) 0.5 L [place] # (Auto) 0.6 Eos # (Auto) 0.0 Baso # (Auto) 0.0 Neutrophils % (Manual) 85 H Band Neutrophils % 1 Lymphocytes % (Manual) 4 L Monocytes % (Manual) 6 Eosinophils % (Manual) 1 Basophils % (Manual) 1 Myelocytes % 2 H Platelet Estimate Normal Large Platelets Present Hypochromasia (manual) Moderate Anisocytosis (manual) Slight Stomatocytes Slight PT 13.7 H INR 1.2 APTT 26.4 Sodium 135 Potassium 4.4 Chloride 101 Carbon Dioxide 27 Anion Gap 11 BUN 60 H Creatinine 5.5 H Est GFR ( Amer) 12 Est GFR (Non-Af Amer) 10 Random Glucose 85 Lactic Acid Calcium 8.0 L Phosphorus 4.4 Magnesium 2.1 Total Bilirubin 0.6 AST 19 ALT 23 Alkaline Phosphatase 51 Total Protein 4.5 L Albumin 2.4 L Globulin 2.1 L Albumin/Globulin Ratio 1.1 Blood Type Antibody Screen Crossmatch BBK History Checked 04/25/18 04/26/18 23:48 04:52 WBC RBC Hgb Hct MCV MCH MCHC RDW Plt Count MPV Neut % (Auto) Lymph % (Auto) [place] % (Auto) Eos % (Auto) Baso % (Auto) Neut # (Auto) Lymph # (Auto) [place] # (Auto) Eos # (Auto) Baso # (Auto) Neutrophils % (Manual) Band Neutrophils % Lymphocytes % (Manual) Monocytes % (Manual) Eosinophils % (Manual) Basophils % (Manual) Myelocytes % Platelet Estimate Large Platelets Hypochromasia (manual) Anisocytosis (manual) Stomatocytes PT INR APTT Sodium Potassium Chloride Carbon Dioxide Anion Gap BUN Creatinine Est GFR ( Amer) Est GFR (Non-Af Amer) Random Glucose Lactic Acid 0.7 Calcium Phosphorus Magnesium Total Bilirubin AST ALT Alkaline Phosphatase Total Protein Albumin Globulin Albumin/Globulin Ratio Blood Type O POSITIVE Antibody Screen Negative Crossmatch See Detail BBK History Checked Patient has bt Assessment & Plan (1) ESRD (end stage renal disease) on dialysis Assessment and Plan: patient end up with end stage renal disease on dialysis with diagnosis 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) hypertensive gross hematuria Anemia The plan Hemodialysis order was given consent was taken Patient need blood transfusion consult Continue the same medication . Status: Acute
[2018-04-26] MEDS: guaiFENesin 600 mg ER Tab PO SCH ×2 (11:47→21:29)
[2018-04-26] MEDS: HCTZ/Losartan 12.5/50 Tab PO SCH (11:47)
[2018-04-26] MEDS: Multivitamin Vitamin B Complex (Nephro-Vite) Tab PO SCH (11:48)
[2018-04-26] MEDS: Pantoprazole 40 mg EC Tab PO SCH (11:51)
--- NOTE | 2018-04-26 20:09 | CP.PCM.CON ---
History of Present Illness - History of Present Illness History of Present Illness: 77 year old male with a history of HTN, afib, BPH, immune mediated glomerulonephritis s/p steroids, rituximab, and plasmapheresis, admitted with hematuria and anemia. The patient is well known to me from his prior admission. He was at the [facility] and developed gross hematuria and transferred to the hospital. In the ER he was found to have a hgb of 7.3 and is currently undergoing transfusion support. Past medical history: HTN, afib, BPH, immune mediated glomerulonephritis Past surgical history: Appendectomy Family history: Denies hematologic and oncologic problems Social history: Denies tobacco, alcohol, and illicit drug use. Allergies: NKA Review of systems: All remaining review of systems including HEENT, cardiovascular, respiratory, gastrointestinal, genitourinary, musculoskeletal, dermatologic, neurologic, and psychiatric are negative unless mentioned in the HPI. Past Patient History - Infectious Disease Hx of Infectious Diseases: None - Past Medical History & Family History Past Medical History?: Yes - Past Social History Smoking Status: Former Smoker - CARDIAC Hx Cardiac Disorders: Yes Hx Atrial Fibrillation: Yes Hx Congestive Heart Failure: Yes Hx Hypertension: Yes - PULMONARY Hx Respiratory Disorders: No - NEUROLOGICAL Hx Neurological Disorder: No - HEENT Hx HEENT Problems: Yes - RENAL Hx Chronic Kidney Disease: Yes Hx Dialysis: Yes Type of Dialysis Access: right sc permacath - ENDOCRINE/METABOLIC Hx Endocrine Disorders: Yes - HEMATOLOGICAL/ONCOLOGICAL Hx Blood Disorders: Yes Hx Anemia: Yes - INTEGUMENTARY Hx Dermatological Problems: No - MUSCULOSKELETAL/RHEUMATOLOGICAL Hx Falls: Yes - GASTROINTESTINAL Hx Gastrointestinal Disorders: No - GENITOURINARY/GYNECOLOGICAL Hx Prostate Cancer: Yes - PSYCHIATRIC Hx Substance Use: No - SURGICAL HISTORY Hx Appendectomy: Yes - ANESTHESIA Hx Anesthesia: Yes Hx Anesthesia Reactions: No Hx Malignant Hyperthermia: No Meds Allergies/Adverse Reactions: Allergies Allergy/AdvReac Type Severity Reaction Status Date / Time No Known Allergies Allergy Verified 01/02/14 08:07 - Medications Medications: Current Medications Acetaminophen (Tylenol 325mg Tab) 650 mg PO Q4 PRN PRN Reason: Fever >100.4 F Acetaminophen (Tylenol 325mg Tab) 650 mg PO Q4 PRN PRN Reason: Pain, Mild (1-3) Bacitracin (Bacitracin Oint) 1 applic TP DAILY [facility] Last Admin: 04/26/18 10:33 Dose: 1 applic Calcium Acetate (Phoslo) 667 mg PO TID [facility] Last Admin: 04/26/18 17:59 Dose: 667 mg Dapsone (Dapsone) 100 mg PO DAILY [facility] PRN Reason: Protocol Last Admin: 04/26/18 11:45 Dose: 100 mg Finasteride (Proscar) 5 mg PO DAILY [facility] Last Admin: 04/26/18 11:51 Dose: 5 mg Fluticasone Propionate (Flonase) 1 spr [facility] DAILY PRN PRN Reason: Nasal congestion Guaifenesin (Mucinex La) 1,200 mg PO Q12 [facility] Last Admin: 04/26/18 11:47 Dose: 1,200 mg HCTZ/Losartan Potassium (Hyzaar 12.5 Mg-50 Mg) 1 tab PO DAILY [facility] Last Admin: 04/26/18 11:47 Dose: 1 tab Vancomycin HCl 1 gm/ Sodium (Chloride) 250 mls @ 166.667 mls/hr IVPB TTS [facility] Levalbuterol HCl (Xopenex) 1.25 mg INH RQ4 PRN PRN Reason: Shortness of Breath Magnesium Hydroxide (Milk Of Magnesia) 30 ml PO DAILY PRN PRN Reason: Constipation Metoprolol Succinate (Toprol Xl) 50 mg PO Q12 [facility] Last Admin: 04/26/18 10:34 Dose: Not Given Pantoprazole Sodium (Protonix Ec Tab) 40 mg PO DAILY [facility] Last Admin: 04/26/18 11:51 Dose: 40 mg Prednisone (Prednisone Tab) 60 mg PO DAILY [facility] Last Admin: 04/26/18 11:50 Dose: 60 mg Tamsulosin HCl (Flomax) 0.4 mg PO DAILY [facility] Last Admin: 04/26/18 13:32 Dose: 0.4 mg Vitamin B Complex/Vit C/Folic Acid (Nephro-Jj) 1 tab PO DAILY [facility] Last Admin: 04/26/18 11:48 Dose: 1 tab Physical Exam - Head Exam Head Exam: ATRAUMATIC - Eye Exam Eye Exam: Normal appearance - ENT Exam ENT Exam: Mucous Membranes Dry - Respiratory Exam Respiratory Exam: NORMAL BREATHING PATTERN - Cardiovascular Exam Cardiovascular Exam: +S1, +S2 - GI/Abdominal Exam GI & Abdominal Exam: Normal Bowel Sounds - Neurological Exam Neurological exam: Oriented x3 - Psychiatric Exam Psychiatric exam: Normal Affect, Normal Mood - Skin Skin Exam: Warm Results - Vital Signs Recent Vital Signs: Last Vital Signs Temp 98.7 F 04/26/18 16:22 Pulse 96 H 04/26/18 16:22 Resp 17 04/26/18 16:22 BP 127/78 04/26/18 16:22 Pulse Ox 97 04/26/18 16:22 - Labs Result Diagrams: 04/25/18 23:48 04/25/18 23:48 Labs: Laboratory Results - last 24 hr 04/25/18 04/25/18 04/25/18 23:48 23:48 23:48 WBC 7.9 RBC 2.49 L Hgb 7.3 L Hct 22.9 L MCV 92.0 MCH 29.5 MCHC 32.1 L RDW 26.9 H Plt Count 201 MPV 7.2 Neut % (Auto) 84.7 H Lymph % (Auto) 6.5 L [place] % (Auto) 7.9 Eos % (Auto) 0.6 Baso % (Auto) 0.3 Neut # (Auto) 6.7 Lymph # (Auto) 0.5 L [place] # (Auto) 0.6 Eos # (Auto) 0.0 Baso # (Auto) 0.0 Neutrophils % (Manual) 85 H Band Neutrophils % 1 Lymphocytes % (Manual) 4 L Monocytes % (Manual) 6 Eosinophils % (Manual) 1 Basophils % (Manual) 1 Myelocytes % 2 H Platelet Estimate Normal Large Platelets Present Hypochromasia (manual) Moderate Anisocytosis (manual) Slight Stomatocytes Slight PT 13.7 H INR 1.2 APTT 26.4 Sodium 135 Potassium 4.4 Chloride 101 Carbon Dioxide 27 Anion Gap 11 BUN 60 H Creatinine 5.5 H Est GFR ( Amer) 12 Est GFR (Non-Af Amer) 10 Random Glucose 85 Lactic Acid Calcium 8.0 L Phosphorus 4.4 Magnesium 2.1 Total Bilirubin 0.6 AST 19 ALT 23 Alkaline Phosphatase 51 Total Protein 4.5 L Albumin 2.4 L Globulin 2.1 L Albumin/Globulin Ratio 1.1 Blood Type Antibody Screen Crossmatch BBK History Checked 04/25/18 04/26/18 23:48 04:52 WBC RBC Hgb Hct MCV MCH MCHC RDW Plt Count MPV Neut % (Auto) Lymph % (Auto) [place] % (Auto) Eos % (Auto) Baso % (Auto) Neut # (Auto) Lymph # (Auto) [place] # (Auto) Eos # (Auto) Baso # (Auto) Neutrophils % (Manual) Band Neutrophils % Lymphocytes % (Manual) Monocytes % (Manual) Eosinophils % (Manual) Basophils % (Manual) Myelocytes % Platelet Estimate Large Platelets Hypochromasia (manual) Anisocytosis (manual) Stomatocytes PT INR APTT Sodium Potassium Chloride Carbon Dioxide Anion Gap BUN Creatinine Est GFR ( Amer) Est GFR (Non-Af Amer) Random Glucose Lactic Acid 0.7 Calcium Phosphorus Magnesium Total Bilirubin AST ALT Alkaline Phosphatase Total Protein Albumin Globulin Albumin/Globulin Ratio Blood Type O POSITIVE Antibody Screen Negative Crossmatch See Detail BBK History Checked Patient has bt Assessment & Plan (1) Anemia Assessment and Plan: anemia of acute blood loss, hematuria; urology evaluation anemia of CKD; EPO per renal 2U PRBC today Thank you for this interesting consult. Status: Acute
[2018-04-27 09:37] LABS: HEMOGLOBIN 8.9 g/dL (12.0-18.0); MEAN CELL VOLUME 90.3 fl (80.0-94.0); MEAN CORPUSCULAR HEMOGLOBIN 30.9 pg (27.0-31.0); MEAN CORPUSCULAR HGB CONC 34.2 g/dL (33.0-37.0); RBC 2.87 Mil/uL (4.40-5.90); RED CELL DISTRIBUTION WIDTH 20.3 % (11.5-14.5); WHITE BLOOD COUNT 8.3 K/uL (4.8-10.8)
--- NOTE | 2018-04-27 09:43 | CP.PCM.PN ---
Subjective - Date & Time of Evaluation Date of Evaluation: 04/27/18 Time of Evaluation: 09:42 - Subjective Subjective: patient awake and conscious not in acute distress appears to be comfortable no nausea no vomiting Objective - Vital Signs/Intake and Output Vital Signs (last 24 hours): Temp Pulse Resp BP Pulse Ox 98.2 F 99 H 20 118/72 98 04/27/18 08:00 04/27/18 08:00 04/27/18 08:00 04/27/18 08:00 04/27/18 08:00 Intake and Output: 04/27/18 04/27/18 06:59 18:59 Intake Total 1000 Output Total 1 Balance 999 - Medications Medications: Current Medications Acetaminophen (Tylenol 325mg Tab) 650 mg PO Q4 PRN PRN Reason: Fever >100.4 F Acetaminophen (Tylenol 325mg Tab) 650 mg PO Q4 PRN PRN Reason: Pain, Mild (1-3) Bacitracin (Bacitracin Oint) 1 applic TP DAILY [facility] Last Admin: 04/26/18 10:33 Dose: 1 applic Calcium Acetate (Phoslo) 667 mg PO TID [facility] Last Admin: 04/26/18 17:59 Dose: 667 mg Dapsone (Dapsone) 100 mg PO DAILY [facility] PRN Reason: Protocol Last Admin: 04/26/18 11:45 Dose: 100 mg Finasteride (Proscar) 5 mg PO DAILY [facility] Last Admin: 04/26/18 11:51 Dose: 5 mg Fluticasone Propionate (Flonase) 1 spr [facility] DAILY PRN PRN Reason: Nasal congestion Guaifenesin (Mucinex La) 1,200 mg PO Q12 [facility] Last Admin: 04/26/18 21:29 Dose: 1,200 mg HCTZ/Losartan Potassium (Hyzaar 12.5 Mg-50 Mg) 1 tab PO DAILY [facility] Last Admin: 04/26/18 11:47 Dose: 1 tab Levalbuterol HCl (Xopenex) 1.25 mg INH RQ4 PRN PRN Reason: Shortness of Breath Magnesium Hydroxide (Milk Of Magnesia) 30 ml PO DAILY PRN PRN Reason: Constipation Metoprolol Succinate (Toprol Xl) 50 mg PO Q12 [facility] Last Admin: 04/26/18 21:29 Dose: 50 mg Pantoprazole Sodium (Protonix Ec Tab) 40 mg PO DAILY [facility] Last Admin: 04/26/18 11:51 Dose: 40 mg Prednisone (Prednisone Tab) 60 mg PO DAILY [facility] Last Admin: 04/26/18 11:50 Dose: 60 mg Tamsulosin HCl (Flomax) 0.4 mg PO DAILY [facility] Last Admin: 04/26/18 13:32 Dose: 0.4 mg Vitamin B Complex/Vit C/Folic Acid (Nephro-Jj) 1 tab PO DAILY [facility] Last Admin: 04/26/18 11:48 Dose: 1 tab - Labs Labs: 04/25/18 23:48 04/25/18 23:48 PT 13.7 Seconds (9.8-13.1) H 04/25/18 23:48 INR 1.2 04/25/18 23:48 APTT 26.4 Seconds (25.6-37.1) 04/25/18 23:48 - Constitutional Appears: No Acute Distress - Eye Exam Eye Exam: Conjunctival injection - ENT Exam ENT Exam: Mucous Membranes Moist - Neck Exam Neck Exam: absent: Lymphadenopathy - Cardiovascular Exam Cardiovascular Exam: absent: Gallop, JVD, Rubs - GI/Abdominal Exam GI & Abdominal Exam: Soft, Normal Bowel Sounds - Extremities Exam Extremities Exam: absent: Calf Tenderness - Back Exam Back Exam: absent: CVA tenderness (L), CVA tenderness (R) - Neurological Exam Neurological Exam: Alert - Psychiatric Exam Psychiatric exam: Normal Affect - Skin Skin Exam: absent: Cyanosis Assessment and Plan (1) ESRD (end stage renal disease) on dialysis Assessment & Plan: 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
[2018-04-27 09:53] LABS: ALB/GLOB RATIO 1.3 (1.0-2.1); ALBUMIN 2.8 g/dL (3.5-5.0); CALCIUM 8.2 mg/dL (8.4-10.2)
[2018-04-27] MEDS: Bacitracin OINT 15GM TP SCH (10:18)
[2018-04-27] MEDS: Multivitamin Vitamin B Complex (Nephro-Vite) Tab PO SCH (10:18)
[2018-04-27] MEDS: Metoprolol Succinate 50 mg XL Tab PO SCH ×2 (10:19→21:56)
[2018-04-27] MEDS: Pantoprazole 40 mg EC Tab PO SCH (10:20)
[2018-04-27] MEDS: guaiFENesin 600 mg ER Tab PO SCH ×2 (10:20→21:56)
[2018-04-27] MEDS: HCTZ/Losartan 12.5/50 Tab PO SCH (10:23)
[2018-04-27 11:40] LABS: HEPATITIS B SURFACE AG Negative (NEGATIVE)
[2018-04-27 11:45] LABS: HEPATITIS B CORE AB NEGATIVE (NEGATIVE)
[2018-04-27 11:57] LABS: HEPATITIS C ANTIBODY NEGATIVE (NEGATIVE)
--- NOTE | 2018-04-27 13:47 | CP.PCM.PN ---
<Yash Hardy - Last Filed: 04/27/18 13:45> Subjective - Date & Time of Evaluation Date of Evaluation: 04/27/18 Time of Evaluation: 09:40 - Subjective Subjective: 77 y/o M evaluaed and examined by bedside with Dr Tineo. Pt reports feeling well , afebrile, tolerating PO. Pt still has hematuria. Pt received 2 PRBC's this morning. Objective - Vital Signs/Intake and Output Vital Signs (last 24 hours): Temp Pulse Resp BP Pulse Ox 98.2 F 107 H 20 108/68 97 04/27/18 13:00 04/27/18 13:00 04/27/18 13:00 04/27/18 13:00 04/27/18 13:00 Intake and Output: 04/27/18 04/27/18 06:59 18:59 Intake Total 1000 Output Total 1 Balance 999 - Medications Medications: Current Medications Acetaminophen (Tylenol 325mg Tab) 650 mg PO Q4 PRN PRN Reason: Fever >100.4 F Acetaminophen (Tylenol 325mg Tab) 650 mg PO Q4 PRN PRN Reason: Pain, Mild (1-3) Bacitracin (Bacitracin Oint) 1 applic TP DAILY [facility] Last Admin: 04/27/18 10:18 Dose: 1 applic Calcium Acetate (Phoslo) 667 mg PO TID [facility] Last Admin: 04/27/18 13:17 Dose: Not Given Dapsone (Dapsone) 100 mg PO DAILY [facility] PRN Reason: Protocol Last Admin: 04/27/18 10:22 Dose: 100 mg Finasteride (Proscar) 5 mg PO DAILY [facility] Last Admin: 04/27/18 10:20 Dose: 5 mg Fluticasone Propionate (Flonase) 1 spr [facility] DAILY PRN PRN Reason: Nasal congestion Guaifenesin (Mucinex La) 1,200 mg PO Q12 [facility] Last Admin: 04/27/18 10:20 Dose: 1,200 mg HCTZ/Losartan Potassium (Hyzaar 12.5 Mg-50 Mg) 1 tab PO DAILY [facility] Last Admin: 04/27/18 10:23 Dose: 1 tab Levalbuterol HCl (Xopenex) 1.25 mg INH RQ4 PRN PRN Reason: Shortness of Breath Magnesium Hydroxide (Milk Of Magnesia) 30 ml PO DAILY PRN PRN Reason: Constipation Metoprolol Succinate (Toprol Xl) 50 mg PO Q12 [facility] Last Admin: 04/27/18 10:19 Dose: 50 mg Pantoprazole Sodium (Protonix Ec Tab) 40 mg PO DAILY [facility] Last Admin: 04/27/18 10:20 Dose: 40 mg Prednisone (Prednisone Tab) 60 mg PO DAILY [facility] Last Admin: 04/27/18 10:21 Dose: 60 mg Tamsulosin HCl (Flomax) 0.4 mg PO DAILY [facility] Last Admin: 04/27/18 10:19 Dose: 0.4 mg Vitamin B Complex/Vit C/Folic Acid (Nephro-Jj) 1 tab PO DAILY [facility] Last Admin: 04/27/18 10:18 Dose: 1 tab - Labs Labs: 04/27/18 09:34 04/27/18 09:34 PT 13.7 Seconds (9.8-13.1) H 04/25/18 23:48 INR 1.2 04/25/18 23:48 APTT 26.4 Seconds (25.6-37.1) 04/25/18 23:48 - Constitutional Appears: No Acute Distress - Head Exam Head Exam: NORMAL INSPECTION - Eye Exam Eye Exam: EOMI - ENT Exam ENT Exam: Mucous Membranes Dry - Neck Exam Neck Exam: Full ROM. absent: Meningismus - Respiratory Exam Respiratory Exam: NORMAL BREATHING PATTERN. absent: Rhonchi, Wheezes - Cardiovascular Exam Cardiovascular Exam: +S1, +S2 - GI/Abdominal Exam GI & Abdominal Exam: Soft. absent: Guarding, Tenderness - Neurological Exam Neurological Exam: Alert, Awake Assessment and Plan (1) Hematuria Status: Acute (2) Prostate cancer Status: Acute - Assessment and Plan (Free Text) Assessment: --Stable, still with hematuria. --S/P 2 PRBC's --will follow CBC, urine culture --Urology consult, Dr Jeffries. Awaiting recommendations --Continue management as ordered. --Hematology consult order, Dr Armas --Nephrology consult order, Dr Bernabe <Hans Tineo - Last Filed: 04/28/18 17:28> Objective - Vital Signs/Intake and Output Vital Signs (last 24 hours): Temp Pulse Resp BP Pulse Ox 98.2 F 85 18 119/68 96 04/28/18 15:58 04/28/18 15:58 04/28/18 15:58 04/28/18 15:58 04/28/18 15:58 Intake and Output: 04/28/18 04/28/18 06:59 18:59 Intake Total 550 680 Output Total 6350 Balance -5800 680 - Medications Medications: Current Medications Acetaminophen (Tylenol 325mg Tab) 650 mg PO Q4 PRN PRN Reason: Fever >100.4 F Acetaminophen (Tylenol 325mg Tab) 650 mg PO Q4 PRN PRN Reason: Pain, Mild (1-3) Aminocaproic Acid (Aminocaproic Acid 500 Mg Tab) 1,000 mg PO Q4H [facility] Stop: 04/29/18 11:16 Last Admin: 04/28/18 16:08 Dose: 1,000 mg Bacitracin (Bacitracin Oint) 1 applic TP DAILY [facility] Last Admin: 04/28/18 09:54 Dose: 1 applic Calcium Acetate (Phoslo) 667 mg PO TID [facility] Last Admin: 04/28/18 12:24 Dose: 667 mg Dapsone (Dapsone) 100 mg PO DAILY [facility] PRN Reason: Protocol Last Admin: 04/28/18 09:54 Dose: 100 mg Finasteride (Proscar) 5 mg PO DAILY [facility] Last Admin: 04/28/18 09:54 Dose: 5 mg Fluticasone Propionate (Flonase) 1 spr [facility] DAILY PRN PRN Reason: Nasal congestion Guaifenesin (Mucinex La) 1,200 mg PO Q12 [facility] Last Admin: 04/28/18 09:54 Dose: 1,200 mg HCTZ/Losartan Potassium (Hyzaar 12.5 Mg-50 Mg) 1 tab PO DAILY [facility] Last Admin: 04/28/18 09:54 Dose: Not Given Vancomycin HCl 1 gm/ Sodium (Chloride) 250 mls @ 166.667 mls/hr IVPB TTS [facility] PRN Reason: Protocol Levalbuterol HCl (Xopenex) 1.25 mg INH RQ4 PRN PRN Reason: Shortness of Breath Magnesium Hydroxide (Milk Of Magnesia) 30 ml PO DAILY [facility]N PRN Reason: Constipation Metoprolol Succinate (Toprol Xl) 50 mg PO Q12 [facility] Last Admin: 04/28/18 09:54 Dose: Not Given Pantoprazole Sodium (Protonix Ec Tab) 40 mg PO DAILY [facility] Last Admin: 04/28/18 09:53 Dose: 40 mg Prednisone (Prednisone Tab) 60 mg PO DAILY [facility] Last Admin: 04/28/18 09:54 Dose: 60 mg Tamsulosin HCl (Flomax) 0.4 mg PO DAILY [facility] Last Admin: 04/28/18 09:54 Dose: 0.4 mg Vitamin B Complex/Vit C/Folic Acid (Nephro-Jj) 1 tab PO DAILY [facility] Last Admin: 04/28/18 09:54 Dose: 1 tab - Labs Labs: 04/28/18 05:31 04/28/18 05:31 PT 13.7 Seconds (9.8-13.1) H 04/25/18 23:48 INR 1.2 04/25/18 23:48 APTT 26.4 Seconds (25.6-37.1) 04/25/18 23:48 Assessment and Plan - Assessment and Plan (Free Text) Assessment: Patient was personally seen and examined by me in rounds with residents. Available labs and diagnostic data reviewed. Case, Patient's condition and management plan discussed with residents in rounds. Agree with resident's progress note. Plan: As ordered.
--- NOTE | 2018-04-27 15:57 | US ---
Date of service: 04/27/2018 PROCEDURE: Bilateral lower extremity venous duplex Doppler. HISTORY: r/o dvt COMPARISON: None available. TECHNIQUE: Bilateral common femoral, superficial femoral, popliteal and posterior tibial veins were evaluated. Flow was assessed with color Doppler, compressibility, assessment of phasic flow and augmentation response. FINDINGS: COMMON FEMORAL VEIN: Right CFV: Unremarkable. Left CFV: Unremarkable. SUPERFICIAL FEMORAL VEIN: Right SFV: Unremarkable. Left SFV: Unremarkable. POPLITEAL VEIN: Right Popliteal: Unremarkable. Left Popliteal: Unremarkable. POSTERIOR TIBIAL VEIN: Right PTV: Unremarkable. Left PTV: Unremarkable. OTHER FINDINGS: None. IMPRESSION: No evidence of deep venous thrombosis.
[2018-04-27] MEDS ORDERED: Sodium Chloride 0.9% 500 ML IV ONE (19:13)
[2018-04-27] MEDS ORDERED: Propofol 10 mg/ml Inj (20 ML) ONE (19:15)
[2018-04-27] MEDS ORDERED: SODIUM CHLORIDE 3,000 ML IR ONE ×4 (20:30→21:30)
--- NOTE | 2018-04-27 21:26 | CP.PCM.PN ---
Subjective - Date & Time of Evaluation Date of Evaluation: 04/27/18 Time of Evaluation: 18:00 - Subjective Subjective: No complaints. Objective - Vital Signs/Intake and Output Vital Signs (last 24 hours): Temp Pulse Resp BP Pulse Ox 97.4 F L 97 H 20 119/77 100 04/27/18 21:00 04/27/18 21:00 04/27/18 21:00 04/27/18 21:00 04/27/18 21:00 Intake and Output: 04/27/18 04/28/18 18:59 06:59 Intake Total 680 50 Output Total 3500 Balance 680 -3450 - Medications Medications: Current Medications Acetaminophen (Tylenol 325mg Tab) 650 mg PO Q4 PRN PRN Reason: Fever >100.4 F Acetaminophen (Tylenol 325mg Tab) 650 mg PO Q4 PRN PRN Reason: Pain, Mild (1-3) Bacitracin (Bacitracin Oint) 1 applic TP DAILY [facility] Last Admin: 04/27/18 10:18 Dose: 1 applic Calcium Acetate (Phoslo) 667 mg PO TID [facility] Last Admin: 04/27/18 17:03 Dose: Not Given Dapsone (Dapsone) 100 mg PO DAILY [facility] PRN Reason: Protocol Last Admin: 04/27/18 10:22 Dose: 100 mg Finasteride (Proscar) 5 mg PO DAILY [facility] Last Admin: 04/27/18 10:20 Dose: 5 mg Fluticasone Propionate (Flonase) 1 spr [place] DAILY PRN PRN Reason: Nasal congestion Guaifenesin (Mucinex La) 1,200 mg PO Q12 [facility] Last Admin: 04/27/18 10:20 Dose: 1,200 mg HCTZ/Losartan Potassium (Hyzaar 12.5 Mg-50 Mg) 1 tab PO DAILY [facility] Last Admin: 04/27/18 10:23 Dose: 1 tab Levalbuterol HCl (Xopenex) 1.25 mg INH RQ4 PRN PRN Reason: Shortness of Breath Magnesium Hydroxide (Milk Of Magnesia) 30 ml PO DAILY PRN PRN Reason: Constipation Metoprolol Succinate (Toprol Xl) 50 mg PO Q12 [facility] Last Admin: 04/27/18 10:19 Dose: 50 mg Pantoprazole Sodium (Protonix Ec Tab) 40 mg PO DAILY [facility] Last Admin: 04/27/18 10:20 Dose: 40 mg Prednisone (Prednisone Tab) 60 mg PO DAILY [facility] Last Admin: 04/27/18 10:21 Dose: 60 mg Tamsulosin HCl (Flomax) 0.4 mg PO DAILY [facility] Last Admin: 04/27/18 10:19 Dose: 0.4 mg Vitamin B Complex/Vit C/Folic Acid (Nephro-Jj) 1 tab PO DAILY [facility] Last Admin: 04/27/18 10:18 Dose: 1 tab - Labs Labs: 04/27/18 09:34 04/27/18 09:34 PT 13.7 Seconds (9.8-13.1) H 04/25/18 23:48 INR 1.2 04/25/18 23:48 APTT 26.4 Seconds (25.6-37.1) 04/25/18 23:48 - Head Exam Head Exam: ATRAUMATIC - Eye Exam Eye Exam: Normal appearance - ENT Exam ENT Exam: Mucous Membranes Dry - Respiratory Exam Respiratory Exam: NORMAL BREATHING PATTERN - Cardiovascular Exam Cardiovascular Exam: +S1, +S2 - GI/Abdominal Exam GI & Abdominal Exam: Normal Bowel Sounds Assessment and Plan (1) Prostate cancer Assessment & Plan: Radhika 8 CT A/P show inguinal, iliac, and pelvic lymphadenopathy; will need to be reviewed with radiology ? prostate cancer mets urology evaluation if localized prostate cancer, would benefit from androgen deprivation and radiotherapy Status: Acute (2) Anemia Status: Acute
[2018-04-28 05:37] LABS: MEAN CELL VOLUME 91.5 fl (80.0-94.0); MEAN CORPUSCULAR HEMOGLOBIN 30.9 pg (27.0-31.0); MEAN CORPUSCULAR HGB CONC 33.8 g/dL (33.0-37.0); RBC 2.08 Mil/uL (4.40-5.90); RED CELL DISTRIBUTION WIDTH 20.4 % (11.5-14.5)
[2018-04-28 06:05] LABS: CALCIUM 7.8 mg/dL (8.4-10.2)
[2018-04-28 06:16] LABS: HEMOGLOBIN 6.4 g/dL (12.0-18.0)
--- NOTE | 2018-04-28 09:44 | CP.PCM.PN ---
Subjective - Date & Time of Evaluation Date of Evaluation: 04/28/18 Time of Evaluation: 09:44 - Subjective Subjective: dialysis note patient receiving hemodialysis now. Patient is sitting up in bed Vital signs stable Bladder irrigation going on No nausea no or vomiting Leg edema about 1+ Objective - Vital Signs/Intake and Output Vital Signs (last 24 hours): Temp Pulse Resp BP Pulse Ox 97.6 F 107 H 18 127/77 97 04/28/18 08:17 04/28/18 08:17 04/28/18 08:17 04/28/18 08:17 04/28/18 08:17 Intake and Output: 04/28/18 04/28/18 06:59 18:59 Intake Total 550 Output Total 6350 Balance -5800 - Medications Medications: Current Medications Acetaminophen (Tylenol 325mg Tab) 650 mg PO Q4 PRN PRN Reason: Fever >100.4 F Acetaminophen (Tylenol 325mg Tab) 650 mg PO Q4 PRN PRN Reason: Pain, Mild (1-3) Bacitracin (Bacitracin Oint) 1 applic TP DAILY [facility] Last Admin: 04/27/18 10:18 Dose: 1 applic Calcium Acetate (Phoslo) 667 mg PO TID [facility] Last Admin: 04/27/18 17:03 Dose: Not Given Dapsone (Dapsone) 100 mg PO DAILY [facility] PRN Reason: Protocol Last Admin: 04/27/18 10:22 Dose: 100 mg Finasteride (Proscar) 5 mg PO DAILY [facility] Last Admin: 04/27/18 10:20 Dose: 5 mg Fluticasone Propionate (Flonase) 1 spr [place] DAILY PRN PRN Reason: Nasal congestion Guaifenesin (Mucinex La) 1,200 mg PO Q12 [facility] Last Admin: 04/27/18 21:56 Dose: 1,200 mg HCTZ/Losartan Potassium (Hyzaar 12.5 Mg-50 Mg) 1 tab PO DAILY [facility] Last Admin: 04/27/18 10:23 Dose: 1 tab Levalbuterol HCl (Xopenex) 1.25 mg INH RQ4 PRN PRN Reason: Shortness of Breath Magnesium Hydroxide (Milk Of Magnesia) 30 ml PO DAILY PRN PRN Reason: Constipation Metoprolol Succinate (Toprol Xl) 50 mg PO Q12 [facility] Last Admin: 04/27/18 21:56 Dose: 50 mg Pantoprazole Sodium (Protonix Ec Tab) 40 mg PO DAILY [facility] Last Admin: 04/27/18 10:20 Dose: 40 mg Prednisone (Prednisone Tab) 60 mg PO DAILY [facility] Last Admin: 04/27/18 10:21 Dose: 60 mg Tamsulosin HCl (Flomax) 0.4 mg PO DAILY [facility] Last Admin: 04/27/18 10:19 Dose: 0.4 mg Vitamin B Complex/Vit C/Folic Acid (Nephro-Jj) 1 tab PO DAILY [facility] Last Admin: 04/27/18 10:18 Dose: 1 tab - Labs Labs: 04/28/18 05:31 04/28/18 05:31 PT 13.7 Seconds (9.8-13.1) H 04/25/18 23:48 INR 1.2 04/25/18 23:48 APTT 26.4 Seconds (25.6-37.1) 04/25/18 23:48 - Constitutional Appears: No Acute Distress - Eye Exam Eye Exam: Conjunctival injection - ENT Exam ENT Exam: Mucous Membranes Moist - Neck Exam Neck Exam: absent: Lymphadenopathy - Respiratory Exam Respiratory Exam: NORMAL BREATHING PATTERN. 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 Patient receiving blood transfusion now on hemodialysis hypertensive gross hematuria status post cystoscope 04/27 and patient receiving bladder irrigation. Anemia I am told by the urologist that he was diagnosed approximately about a month ago with intraductal carcinoma of the prostate the plan Blood transfusion running Hemodialysis running very well and tolerating I discussed with the dialysis nurse at the bedside Patient will need AV fistula when he is more stable Status: Acute
[2018-04-28] MEDS: Pantoprazole 40 mg EC Tab PO SCH (09:53)
[2018-04-28] MEDS: HCTZ/Losartan 12.5/50 Tab PO SCH (09:54)
[2018-04-28] MEDS: Multivitamin Vitamin B Complex (Nephro-Vite) Tab PO SCH (09:54)
[2018-04-28] MEDS: Metoprolol Succinate 50 mg XL Tab PO SCH ×2 (09:54→21:21)
[2018-04-28] MEDS: guaiFENesin 600 mg ER Tab PO SCH ×2 (09:54→21:21)
[2018-04-28] MEDS: Bacitracin OINT 15GM TP SCH (09:54)
[2018-04-28 11:08] LABS: URINE BACTERIA RARE (<OCC); URINE BILIRUBIN NEGATIVE (NEGATIVE); URINE GLUCOSE (UA) NEG (Normal); URINE LEUKOCYTE ESTERASE NEG Leu/uL (Negative); URINE PROTEIN >=500 mg/dL (NEGATIVE); URINE UROBILINOGEN 0.2-1.0 mg/dL (0.2-1.0)
[2018-04-28 11:16] LABS: URINE COLOR RED (YELLOW)
[2018-04-28 11:23] LABS: URINE CLARITY Turbid (Clear)
[2018-04-28 11:25] LABS: SQUAMOUS EPITHIAL 3 /hpf (0-5)
[2018-04-28 11:26] LABS: URINE BLOOD LARGE (NEGATIVE)
--- NOTE | 2018-04-28 12:38 | CP.PCM.PN ---
Subjective - Date & Time of Evaluation Date of Evaluation: 04/28/18 Time of Evaluation: 12:33 - Subjective Subjective: UROLOGY POD#1 cysto fulgeration. Yesterday at time of cysto there was gross hematuria with strangely no clots for the amount of blood seen. I did alot of cauterization but seems as if he just kept oozing. Immediately post op it appeared clearbut today once again the urine remains clear only with CBI full open. I will try hadley traction and amicar but do suspect he might have a coagulation disorder. He is receiving transfusion at this time. Objective - Vital Signs/Intake and Output Vital Signs (last 24 hours): Temp Pulse Resp BP Pulse Ox 98 F 99 H 18 97/64 L 99 04/28/18 12:21 04/28/18 12:21 04/28/18 12:21 04/28/18 12:21 04/28/18 12:21 Intake and Output: 04/28/18 04/28/18 06:59 18:59 Intake Total 550 680 Output Total 6350 Balance -5800 680 - Medications Medications: Current Medications Acetaminophen (Tylenol 325mg Tab) 650 mg PO Q4 PRN PRN Reason: Fever >100.4 F Acetaminophen (Tylenol 325mg Tab) 650 mg PO Q4 PRN PRN Reason: Pain, Mild (1-3) Aminocaproic Acid (Aminocaproic Acid 500 Mg Tab) 1,000 mg PO Q4 [facility] Bacitracin (Bacitracin Oint) 1 applic TP DAILY [facility] Last Admin: 04/28/18 09:54 Dose: 1 applic Calcium Acetate (Phoslo) 667 mg PO TID [facility] Last Admin: 04/28/18 12:24 Dose: 667 mg Dapsone (Dapsone) 100 mg PO DAILY [facility] PRN Reason: Protocol Last Admin: 04/28/18 09:54 Dose: 100 mg Finasteride (Proscar) 5 mg PO DAILY [facility] Last Admin: 04/28/18 09:54 Dose: 5 mg Fluticasone Propionate (Flonase) 1 spr [place] DAILY PRN PRN Reason: Nasal congestion Guaifenesin (Mucinex La) 1,200 mg PO Q12 [facility] Last Admin: 04/28/18 09:54 Dose: 1,200 mg HCTZ/Losartan Potassium (Hyzaar 12.5 Mg-50 Mg) 1 tab PO DAILY [facility] Last Admin: 04/28/18 09:54 Dose: Not Given Levalbuterol HCl (Xopenex) 1.25 mg INH RQ4 PRN PRN Reason: Shortness of Breath Magnesium Hydroxide (Milk Of Magnesia) 30 ml PO DAILY PRN PRN Reason: Constipation Metoprolol Succinate (Toprol Xl) 50 mg PO Q12 [facility] Last Admin: 04/28/18 09:54 Dose: Not Given Pantoprazole Sodium (Protonix Ec Tab) 40 mg PO DAILY [facility] Last Admin: 04/28/18 09:53 Dose: 40 mg Prednisone (Prednisone Tab) 60 mg PO DAILY [facility] Last Admin: 04/28/18 09:54 Dose: 60 mg Tamsulosin HCl (Flomax) 0.4 mg PO DAILY [facility] Last Admin: 04/28/18 09:54 Dose: 0.4 mg Vitamin B Complex/Vit C/Folic Acid (Nephro-Jj) 1 tab PO DAILY [facility] Last Admin: 04/28/18 09:54 Dose: 1 tab - Labs Labs: 04/28/18 05:31 04/28/18 05:31 PT 13.7 Seconds (9.8-13.1) H 04/25/18 23:48 INR 1.2 04/25/18 23:48 APTT 26.4 Seconds (25.6-37.1) 04/25/18 23:48
[2018-04-28] MEDS ORDERED: Desmopressin 20 MCG in Sodium Chloride 0.9% 50 ML IV ONE (13:00)
[2018-04-28] MEDS ORDERED: Desmopressin 4 mcg/ml Inj (1 ml) IVP ONE (13:00)
--- NOTE | 2018-04-28 17:15 | CP.PCM.PN ---
<Yash Hardy - Last Filed: 04/28/18 17:13> Subjective - Date & Time of Evaluation Date of Evaluation: 04/28/18 Time of Evaluation: 09:40 - Subjective Subjective: 77 y/o m evaluated and examined by bedside. Pt reports feeling OK. Cystoscopy fulguration performed yesterday. Urine collecting bag with traces of bleeding, clear pink color. --Hgb 6.4-low, today Objective - Vital Signs/Intake and Output Vital Signs (last 24 hours): Temp Pulse Resp BP Pulse Ox 98.2 F 85 18 119/68 96 04/28/18 15:58 04/28/18 15:58 04/28/18 15:58 04/28/18 15:58 04/28/18 15:58 Intake and Output: 04/28/18 04/28/18 06:59 18:59 Intake Total 550 680 Output Total 6350 Balance -5800 680 - Medications Medications: Current Medications Acetaminophen (Tylenol 325mg Tab) 650 mg PO Q4 PRN PRN Reason: Fever >100.4 F Acetaminophen (Tylenol 325mg Tab) 650 mg PO Q4 PRN PRN Reason: Pain, Mild (1-3) Aminocaproic Acid (Aminocaproic Acid 500 Mg Tab) 1,000 mg PO Q4H [facility] Stop: 04/29/18 11:16 Last Admin: 04/28/18 16:08 Dose: 1,000 mg Bacitracin (Bacitracin Oint) 1 applic TP DAILY [facility] Last Admin: 04/28/18 09:54 Dose: 1 applic Calcium Acetate (Phoslo) 667 mg PO TID [facility] Last Admin: 04/28/18 12:24 Dose: 667 mg Dapsone (Dapsone) 100 mg PO DAILY [facility] PRN Reason: Protocol Last Admin: 04/28/18 09:54 Dose: 100 mg Finasteride (Proscar) 5 mg PO DAILY [facility] Last Admin: 04/28/18 09:54 Dose: 5 mg Fluticasone Propionate (Flonase) 1 spr [place] DAILY PRN PRN Reason: Nasal congestion Guaifenesin (Mucinex La) 1,200 mg PO Q12 [facility] Last Admin: 04/28/18 09:54 Dose: 1,200 mg HCTZ/Losartan Potassium (Hyzaar 12.5 Mg-50 Mg) 1 tab PO DAILY [facility] Last Admin: 04/28/18 09:54 Dose: Not Given Vancomycin HCl 1 gm/ Sodium (Chloride) 250 mls @ 166.667 mls/hr IVPB [facility] PRN Reason: Protocol Levalbuterol HCl (Xopenex) 1.25 mg INH RQ4 PRN PRN Reason: Shortness of Breath Magnesium Hydroxide (Milk Of Magnesia) 30 ml PO DAILY PRN PRN Reason: Constipation Metoprolol Succinate (Toprol Xl) 50 mg PO Q12 [facility] Last Admin: 04/28/18 09:54 Dose: Not Given Pantoprazole Sodium (Protonix Ec Tab) 40 mg PO DAILY [facility] Last Admin: 04/28/18 09:53 Dose: 40 mg Prednisone (Prednisone Tab) 60 mg PO DAILY [facility] Last Admin: 04/28/18 09:54 Dose: 60 mg Tamsulosin HCl (Flomax) 0.4 mg PO DAILY [facility] Last Admin: 04/28/18 09:54 Dose: 0.4 mg Vitamin B Complex/Vit C/Folic Acid (Nephro-Jj) 1 tab PO DAILY [facility] Last Admin: 04/28/18 09:54 Dose: 1 tab - Labs Labs: 04/28/18 05:31 04/28/18 05:31 PT 13.7 Seconds (9.8-13.1) H 04/25/18 23:48 INR 1.2 04/25/18 23:48 APTT 26.4 Seconds (25.6-37.1) 04/25/18 23:48 - Constitutional Appears: No Acute Distress - Head Exam Head Exam: NORMAL INSPECTION - Eye Exam Eye Exam: EOMI - ENT Exam ENT Exam: Mucous Membranes Dry - Neck Exam Neck Exam: Full ROM. absent: Meningismus - Respiratory Exam Respiratory Exam: NORMAL BREATHING PATTERN. absent: Rhonchi, Wheezes - Cardiovascular Exam Cardiovascular Exam: +S1, +S2. absent: Tachycardia - GI/Abdominal Exam GI & Abdominal Exam: Soft. absent: Distended, Firm, Tenderness - Extremities Exam Extremities Exam: Full ROM, Normal Inspection. absent: Pedal Edema - Neurological Exam Neurological Exam: Alert, Awake Assessment and Plan (1) Hematuria Status: Acute (2) Prostate cancer Status: Acute (3) Anemia due to blood loss, acute Status: Acute - Assessment and Plan (Free Text) Assessment: --Will transfuse 2 PRBC's --For hemodialysis today. --Urology on board, Dr Jeffries. --Continue management as ordered. --Hematology on board, Dr Armas --Nephrology on board, Dr Bernabe <Hans Tineo K - Last Filed: 04/28/18 17:32> Objective - Vital Signs/Intake and Output Vital Signs (last 24 hours): Temp Pulse Resp BP Pulse Ox 98.2 F 85 18 119/68 96 04/28/18 15:58 04/28/18 15:58 04/28/18 15:58 04/28/18 15:58 04/28/18 15:58 Intake and Output: 04/28/18 04/28/18 06:59 18:59 Intake Total 550 680 Output Total 6350 Balance -5800 680 - Medications Medications: Current Medications Acetaminophen (Tylenol 325mg Tab) 650 mg PO Q4 PRN PRN Reason: Fever >100.4 F Acetaminophen (Tylenol 325mg Tab) 650 mg PO Q4 PRN PRN Reason: Pain, Mild (1-3) Aminocaproic Acid (Aminocaproic Acid 500 Mg Tab) 1,000 mg PO Q4H [facility] Stop: 04/29/18 11:16 Last Admin: 04/28/18 16:08 Dose: 1,000 mg Bacitracin (Bacitracin Oint) 1 applic TP DAILY [facility] Last Admin: 04/28/18 09:54 Dose: 1 applic Calcium Acetate (Phoslo) 667 mg PO TID [facility] Last Admin: 04/28/18 12:24 Dose: 667 mg Dapsone (Dapsone) 100 mg PO DAILY [facility] PRN Reason: Protocol Last Admin: 04/28/18 09:54 Dose: 100 mg Finasteride (Proscar) 5 mg PO DAILY [facility] Last Admin: 04/28/18 09:54 Dose: 5 mg Fluticasone Propionate (Flonase) 1 spr [place] DAILY PRN PRN Reason: Nasal congestion Guaifenesin (Mucinex La) 1,200 mg PO Q12 [facility] Last Admin: 04/28/18 09:54 Dose: 1,200 mg HCTZ/Losartan Potassium (Hyzaar 12.5 Mg-50 Mg) 1 tab PO DAILY [facility] Last Admin: 04/28/18 09:54 Dose: Not Given Vancomycin HCl 1 gm/ Sodium (Chloride) 250 mls @ 166.667 mls/hr IVPB TTS [facility] PRN Reason: Protocol Levalbuterol HCl (Xopenex) 1.25 mg INH RQ4 PRN PRN Reason: Shortness of Breath Magnesium Hydroxide (Milk Of Magnesia) 30 ml PO DAILY PRN PRN Reason: Constipation Metoprolol Succinate (Toprol Xl) 50 mg PO Q12 [facility] Last Admin: 04/28/18 09:54 Dose: Not Given Pantoprazole Sodium (Protonix Ec Tab) 40 mg PO DAILY [facility] Last Admin: 04/28/18 09:53 Dose: 40 mg Prednisone (Prednisone Tab) 60 mg PO DAILY [facility] Last Admin: 04/28/18 09:54 Dose: 60 mg Tamsulosin HCl (Flomax) 0.4 mg PO DAILY [facility] Last Admin: 04/28/18 09:54 Dose: 0.4 mg Vitamin B Complex/Vit C/Folic Acid (Nephro-Jj) 1 tab PO DAILY [facility] Last Admin: 04/28/18 09:54 Dose: 1 tab - Labs Labs: 04/28/18 05:31 04/28/18 05:31 PT 13.7 Seconds (9.8-13.1) H 04/25/18 23:48 INR 1.2 04/25/18 23:48 APTT 26.4 Seconds (25.6-37.1) 04/25/18 23:48 Assessment and Plan - Assessment and Plan (Free Text) Assessment: Patient was personally seen and examined by me in rounds with residents. Available labs and diagnostic data reviewed. Case, Patient's condition and management plan discussed with residents in rounds. Agree with resident's progress note. Plan: As ordered.
[2018-04-29 05:52] LABS: MEAN CELL VOLUME 91.9 fl (80.0-94.0); MEAN CORPUSCULAR HEMOGLOBIN 31.1 pg (27.0-31.0); MEAN CORPUSCULAR HGB CONC 33.9 g/dL (33.0-37.0); RBC 2.58 Mil/uL (4.40-5.90); RED CELL DISTRIBUTION WIDTH 17.3 % (11.5-14.5); WHITE BLOOD COUNT 8.2 K/uL (4.8-10.8)
[2018-04-29 06:50] LABS: ALB/GLOB RATIO 1.3 (1.0-2.1); ALBUMIN 2.3 g/dL (3.5-5.0); CALCIUM 7.7 mg/dL (8.4-10.2)
[2018-04-29] MEDS: Bacitracin OINT 15GM TP SCH (09:53)
[2018-04-29] MEDS: Multivitamin Vitamin B Complex (Nephro-Vite) Tab PO SCH (09:53)
[2018-04-29] MEDS: Metoprolol Succinate 50 mg XL Tab PO SCH ×2 (09:53→21:11)
[2018-04-29] MEDS: HCTZ/Losartan 12.5/50 Tab PO SCH (09:53)
[2018-04-29] MEDS: Pantoprazole 40 mg EC Tab PO SCH (09:54)
[2018-04-29] MEDS: guaiFENesin 600 mg ER Tab PO SCH ×2 (09:54→21:11)
--- NOTE | 2018-04-29 12:37 | CP.PCM.PN ---
Subjective - Date & Time of Evaluation Date of Evaluation: 04/29/18 Time of Evaluation: 12:35 - Subjective Subjective: pod#2 PT STILL HAS VISIBLE HEMATURIA. he has no abdominal pain will continue CBI as well as amicar and traction as needed Objective - Vital Signs/Intake and Output Vital Signs (last 24 hours): Temp Pulse Resp BP Pulse Ox 98.4 F 105 H 18 105/64 99 04/29/18 12:07 04/29/18 12:07 04/29/18 12:07 04/29/18 12:07 04/29/18 12:07 Intake and Output: 04/29/18 04/29/18 06:59 18:59 Intake Total 66234 600 Output Total 12668 1200 Balance 0 -600 - Medications Medications: Current Medications Acetaminophen (Tylenol 325mg Tab) 650 mg PO Q4 PRN PRN Reason: Fever >100.4 F Acetaminophen (Tylenol 325mg Tab) 650 mg PO Q4 PRN PRN Reason: Pain, Mild (1-3) Aminocaproic Acid (Aminocaproic Acid 500 Mg Tab) 1,000 mg PO Q8 [facility] Bacitracin (Bacitracin Oint) 1 applic TP DAILY [facility] Last Admin: 04/29/18 09:53 Dose: 1 applic Calcium Acetate (Phoslo) 667 mg PO TID [facility] Last Admin: 04/29/18 12:11 Dose: 667 mg Dapsone (Dapsone) 100 mg PO DAILY [facility] PRN Reason: Protocol Last Admin: 04/29/18 09:53 Dose: 100 mg Finasteride (Proscar) 5 mg PO DAILY [facility] Last Admin: 04/29/18 09:53 Dose: 5 mg Fluticasone Propionate (Flonase) 1 spr [place] DAILY PRN PRN Reason: Nasal congestion Guaifenesin (Mucinex La) 1,200 mg PO Q12 [facility] Last Admin: 04/29/18 09:54 Dose: 1,200 mg HCTZ/Losartan Potassium (Hyzaar 12.5 Mg-50 Mg) 1 tab PO DAILY [facility] Last Admin: 04/29/18 09:53 Dose: 1 tab Vancomycin HCl 1 gm/ Sodium (Chloride) 250 mls @ 166.667 mls/hr IVPB TTS [facility] PRN Reason: Protocol Last Admin: 04/28/18 17:56 Dose: 166.667 mls/hr Levalbuterol HCl (Xopenex) 1.25 mg INH RQ4 PRN PRN Reason: Shortness of Breath Magnesium Hydroxide (Milk Of Magnesia) 30 ml PO DAILY [facility] PRN Reason: Constipation Metoprolol Succinate (Toprol Xl) 50 mg PO Q12 [facility] Last Admin: 04/29/18 09:53 Dose: 50 mg Pantoprazole Sodium (Protonix Ec Tab) 40 mg PO DAILY [facility] Last Admin: 04/29/18 09:54 Dose: 40 mg Prednisone (Prednisone Tab) 60 mg PO DAILY [facility] Last Admin: 04/29/18 09:54 Dose: 60 mg Tamsulosin HCl (Flomax) 0.4 mg PO DAILY [facility] Last Admin: 04/29/18 09:54 Dose: 0.4 mg Vitamin B Complex/Vit C/Folic Acid (Nephro-Jj) 1 tab PO DAILY [facility] Last Admin: 04/29/18 09:53 Dose: 1 tab - Labs Labs: 04/29/18 05:20 04/29/18 05:20 PT 13.7 Seconds (9.8-13.1) H 04/25/18 23:48 INR 1.2 04/25/18 23:48 APTT 26.4 Seconds (25.6-37.1) 04/25/18 23:48
--- NOTE | 2018-04-29 15:05 | CP.PCM.PN ---
Subjective - Date & Time of Evaluation Date of Evaluation: 04/29/18 Time of Evaluation: 15:03 - Subjective Subjective: patient awake and he still have a gross hematuria Vital signs stable Objective - Vital Signs/Intake and Output Vital Signs (last 24 hours): Temp Pulse Resp BP Pulse Ox 98.4 F 105 H 18 105/64 99 04/29/18 12:07 04/29/18 12:07 04/29/18 12:07 04/29/18 12:07 04/29/18 12:07 Intake and Output: 04/29/18 04/29/18 06:59 18:59 Intake Total 13977 600 Output Total 78131 1200 Balance 0 -600 - Medications Medications: Current Medications Acetaminophen (Tylenol 325mg Tab) 650 mg PO Q4 PRN PRN Reason: Fever >100.4 F Acetaminophen (Tylenol 325mg Tab) 650 mg PO Q4 PRN PRN Reason: Pain, Mild (1-3) Aminocaproic Acid (Aminocaproic Acid 500 Mg Tab) 1,000 mg PO Q8 [facility] Bacitracin (Bacitracin Oint) 1 applic TP DAILY [facility] Last Admin: 04/29/18 09:53 Dose: 1 applic Calcium Acetate (Phoslo) 667 mg PO TID [facility] Last Admin: 04/29/18 12:11 Dose: 667 mg Dapsone (Dapsone) 100 mg PO DAILY [facility] PRN Reason: Protocol Last Admin: 04/29/18 09:53 Dose: 100 mg Finasteride (Proscar) 5 mg PO DAILY [facility] Last Admin: 04/29/18 09:53 Dose: 5 mg Fluticasone Propionate (Flonase) 1 spr [place] DAILY PRN PRN Reason: Nasal congestion Guaifenesin (Mucinex La) 1,200 mg PO Q12 [facility] Last Admin: 04/29/18 09:54 Dose: 1,200 mg HCTZ/Losartan Potassium (Hyzaar 12.5 Mg-50 Mg) 1 tab PO DAILY [facility] Last Admin: 04/29/18 09:53 Dose: 1 tab Vancomycin HCl 1 gm/ Sodium (Chloride) 250 mls @ 166.667 mls/hr IVPB TTS [facility] PRN Reason: Protocol Last Admin: 04/28/18 17:56 Dose: 166.667 mls/hr Levalbuterol HCl (Xopenex) 1.25 mg INH RQ4 PRN PRN Reason: Shortness of Breath Magnesium Hydroxide (Milk Of Magnesia) 30 ml PO DAILY PRN PRN Reason: Constipation Metoprolol Succinate (Toprol Xl) 50 mg PO Q12 [facility] Last Admin: 04/29/18 09:53 Dose: 50 mg Pantoprazole Sodium (Protonix Ec Tab) 40 mg PO DAILY [facility] Last Admin: 04/29/18 09:54 Dose: 40 mg Prednisone (Prednisone Tab) 60 mg PO DAILY [facility] Last Admin: 04/29/18 09:54 Dose: 60 mg Tamsulosin HCl (Flomax) 0.4 mg PO DAILY [facility] Last Admin: 04/29/18 09:54 Dose: 0.4 mg Vitamin B Complex/Vit C/Folic Acid (Nephro-Jj) 1 tab PO DAILY [facility] Last Admin: 04/29/18 09:53 Dose: 1 tab - Labs Labs: 04/29/18 05:20 04/29/18 05:20 PT 13.7 Seconds (9.8-13.1) H 04/25/18 23:48 INR 1.2 04/25/18 23:48 APTT 26.4 Seconds (25.6-37.1) 04/25/18 23:48 - Constitutional Appears: No Acute Distress - ENT Exam ENT Exam: Mucous Membranes Moist - Neck Exam Neck Exam: absent: Lymphadenopathy - Respiratory Exam Respiratory Exam: absent: Chest Wall Tenderness - Cardiovascular Exam Cardiovascular Exam: absent: Gallop - GI/Abdominal Exam GI & Abdominal Exam: Soft, Normal Bowel Sounds - Extremities Exam Extremities Exam: absent: Calf Tenderness - Back Exam Back Exam: absent: CVA tenderness (L), CVA tenderness (R) - Neurological Exam Neurological Exam: Alert - Psychiatric Exam Psychiatric exam: Normal Affect Assessment and Plan (1) ESRD (end stage renal disease) on dialysis Assessment & Plan: 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 Patient receiving blood transfusion now on hemodialysis hypertensive gross hematuria status post cystoscope 04/27 and patient receiving bladder irrigation. Anemia I am told by the urologist that he was diagnosed approximately about a month ago with intraductal carcinoma of the prostate the plan Keep monitoring CBC patient may need more blood transfusion. Also I discussed the case with the urologist to do coagulation study platelet function test he may need fresh frozen plasma to be discussed with the cardiology specialist Status: Acute
--- NOTE | 2018-04-29 15:17 | CP.PCM.PN ---
<Yash Hardy - Last Filed: 04/29/18 15:15> Subjective - Date & Time of Evaluation Date of Evaluation: 04/29/18 Time of Evaluation: 09:40 - Subjective Subjective: 77 y/o M evaluated and examined by bedside with Dr Tineo. Pt reports feeling well , asymptomatic. Urine collecting bag with traces of bleeding, clear red color. --Hgb 8.0 Objective - Vital Signs/Intake and Output Vital Signs (last 24 hours): Temp Pulse Resp BP Pulse Ox 98.4 F 105 H 18 105/64 99 04/29/18 12:07 04/29/18 12:07 04/29/18 12:07 04/29/18 12:07 04/29/18 12:07 Intake and Output: 04/29/18 04/29/18 06:59 18:59 Intake Total 95694 600 Output Total 09020 1200 Balance 0 -600 - Medications Medications: Current Medications Acetaminophen (Tylenol 325mg Tab) 650 mg PO Q4 PRN PRN Reason: Fever >100.4 F Acetaminophen (Tylenol 325mg Tab) 650 mg PO Q4 PRN PRN Reason: Pain, Mild (1-3) Aminocaproic Acid (Aminocaproic Acid 500 Mg Tab) 1,000 mg PO Q8 [facility] Bacitracin (Bacitracin Oint) 1 applic TP DAILY [facility] Last Admin: 04/29/18 09:53 Dose: 1 applic Calcium Acetate (Phoslo) 667 mg PO TID [facility] Last Admin: 04/29/18 12:11 Dose: 667 mg Dapsone (Dapsone) 100 mg PO DAILY [facility] PRN Reason: Protocol Last Admin: 04/29/18 09:53 Dose: 100 mg Finasteride (Proscar) 5 mg PO DAILY [facility] Last Admin: 04/29/18 09:53 Dose: 5 mg Fluticasone Propionate (Flonase) 1 spr [place] DAILY PRN PRN Reason: Nasal congestion Guaifenesin (Mucinex La) 1,200 mg PO Q12 [facility] Last Admin: 04/29/18 09:54 Dose: 1,200 mg HCTZ/Losartan Potassium (Hyzaar 12.5 Mg-50 Mg) 1 tab PO DAILY [facility] Last Admin: 04/29/18 09:53 Dose: 1 tab Vancomycin HCl 1 gm/ Sodium (Chloride) 250 mls @ 166.667 mls/hr IVPB TTS [facility] PRN Reason: Protocol Last Admin: 04/28/18 17:56 Dose: 166.667 mls/hr Levalbuterol HCl (Xopenex) 1.25 mg INH RQ4 PRN PRN Reason: Shortness of Breath Magnesium Hydroxide (Milk Of Magnesia) 30 ml PO DAILY PRN PRN Reason: Constipation Metoprolol Succinate (Toprol Xl) 50 mg PO Q12 [facility] Last Admin: 04/29/18 09:53 Dose: 50 mg Pantoprazole Sodium (Protonix Ec Tab) 40 mg PO DAILY [facility] Last Admin: 04/29/18 09:54 Dose: 40 mg Prednisone (Prednisone Tab) 60 mg PO DAILY [facility] Last Admin: 04/29/18 09:54 Dose: 60 mg Tamsulosin HCl (Flomax) 0.4 mg PO DAILY [facility] Last Admin: 04/29/18 09:54 Dose: 0.4 mg Vitamin B Complex/Vit C/Folic Acid (Nephro-Jj) 1 tab PO DAILY [facility] Last Admin: 04/29/18 09:53 Dose: 1 tab - Labs Labs: 04/29/18 05:20 04/29/18 05:20 PT 13.7 Seconds (9.8-13.1) H 04/25/18 23:48 INR 1.2 04/25/18 23:48 APTT 26.4 Seconds (25.6-37.1) 04/25/18 23:48 - Constitutional Appears: No Acute Distress - Head Exam Head Exam: NORMAL INSPECTION - Eye Exam Eye Exam: EOMI - ENT Exam ENT Exam: Mucous Membranes Dry - Neck Exam Neck Exam: Full ROM. absent: Meningismus - Respiratory Exam Respiratory Exam: Clear to Ausculation Bilateral, NORMAL BREATHING PATTERN - Cardiovascular Exam Cardiovascular Exam: REGULAR RHYTHM, +S1, +S2 - GI/Abdominal Exam GI & Abdominal Exam: Soft. absent: Distended, Guarding, Tenderness - Extremities Exam Extremities Exam: absent: Calf Tenderness - Neurological Exam Neurological Exam: Alert, Awake Assessment and Plan (1) Hematuria Status: Acute (2) Prostate cancer Status: Acute (3) Anemia due to blood loss, acute Status: Acute - Assessment and Plan (Free Text) Assessment: --Hematuria still present. --Monitor Hgb levels. --Will repeat CBC tomorrow, if blood transfusion needed will be done tomorrow with hemodialysis. --Urology on board, Dr Jeffries. --Continue management as ordered. --Hematology on board, Dr Armas --Nephrology on board, Dr Bernabe <Hans Tineo K - Last Filed: 05/01/18 10:19> Objective - Vital Signs/Intake and Output Vital Signs (last 24 hours): Temp Pulse Resp BP Pulse Ox 97.7 F 78 18 125/72 98 05/01/18 08:19 05/01/18 09:00 05/01/18 08:19 05/01/18 08:19 05/01/18 08:19 Intake and Output: 05/01/18 05/01/18 06:59 18:59 Intake Total 1781 Output Total 1400 Balance 381 - Medications Medications: Current Medications Acetaminophen (Tylenol 325mg Tab) 650 mg PO Q4 PRN PRN Reason: Fever >100.4 F Acetaminophen (Tylenol 325mg Tab) 650 mg PO Q4 PRN PRN Reason: Pain, Mild (1-3) Aminocaproic Acid (Aminocaproic Acid 500 Mg Tab) 1,000 mg PO Q8 [facility] Last Admin: 05/01/18 08:44 Dose: 1,000 mg Bacitracin (Bacitracin Oint) 1 applic TP DAILY [facility] Last Admin: 05/01/18 08:45 Dose: 1 applic Calcium Acetate (Phoslo) 667 mg PO TID [facility] Last Admin: 05/01/18 08:44 Dose: 667 mg Finasteride (Proscar) 5 mg PO DAILY [facility] Last Admin: 05/01/18 08:45 Dose: 5 mg Fluticasone Propionate (Flonase) 1 spr [place] DAILY PRN PRN Reason: Nasal congestion Guaifenesin (Mucinex La) 1,200 mg PO Q12 [facility] Last Admin: 05/01/18 08:44 Dose: 1,200 mg HCTZ/Losartan Potassium (Hyzaar 12.5 Mg-50 Mg) 1 tab PO DAILY [facility] Last Admin: 05/01/18 08:43 Dose: 1 tab Vancomycin HCl 1 gm/ Sodium (Chloride) 250 mls @ 166.667 mls/hr IVPB TTS [facility] PRN Reason: Protocol Last Admin: 04/30/18 19:30 Dose: 166.667 mls/hr Desmopressin Acetate 20 mcg/ (Sodium Chloride) 55 mls @ 110 mls/hr IV Q24H [facility] Stop: 05/02/18 21:29 Last Admin: 04/30/18 23:41 Dose: Not Given Levalbuterol HCl (Xopenex) 1.25 mg INH RQ4 PRN PRN Reason: Shortness of Breath Magnesium Hydroxide (Milk Of Magnesia) 30 ml PO DAILY PRN PRN Reason: Constipation Metoprolol Succinate (Toprol Xl) 50 mg PO Q12 [facility] Last Admin: 05/01/18 08:43 Dose: 50 mg Pantoprazole Sodium (Protonix Ec Tab) 40 mg PO DAILY [facility] Last Admin: 05/01/18 08:45 Dose: 40 mg Tamsulosin HCl (Flomax) 0.4 mg PO DAILY [facility] Last Admin: 05/01/18 08:44 Dose: 0.4 mg Vitamin B Complex/Vit C/Folic Acid (Nephro-Jj) 1 tab PO DAILY [facility] Last Admin: 05/01/18 08:44 Dose: 1 tab - Labs Labs: 04/29/18 05:20 04/29/18 05:20 PT 11.9 Seconds (9.8-13.1) 04/29/18 16:00 INR 1.1 04/29/18 16:00 APTT 26.4 Seconds (25.6-37.1) 04/25/18 23:48 Assessment and Plan - Assessment and Plan (Free Text) Assessment: Patient was personally seen and examined by me in rounds with residents. Available labs and diagnostic data reviewed. Case, Patient's condition and management plan discussed with residents in rounds. Agree with resident's progress note. Plan: As ordered.
[2018-04-29 16:45] LABS: INR 1.1; PROTHROMBIN TIME 11.9 Seconds (9.8-13.1)
--- NOTE | 2018-04-29 22:44 | CP.PCM.PN ---
Subjective - Date & Time of Evaluation Date of Evaluation: 04/29/18 Time of Evaluation: 22:40 - Subjective Subjective: UROLOGY Pt seen again tonight to check up on his bleeding astatus. He has CBI at a reduce rated hadley is to traction and he is on amicar po His urine outflow remains hematuric with no visible clots in the hadley tubing. Do not plan to return to [facility] as I did deep cauterization two days ago. Will continue this combination of treatments and followup clinically Objective - Vital Signs/Intake and Output Vital Signs (last 24 hours): Temp Pulse Resp BP Pulse Ox 98.2 F 88 18 143/80 96 04/29/18 20:00 04/29/18 21:11 04/29/18 20:00 04/29/18 21:11 04/29/18 20:00 Intake and Output: 04/29/18 04/30/18 18:59 06:59 Intake Total 1600 Output Total 1800 Balance -200 - Medications Medications: Current Medications Acetaminophen (Tylenol 325mg Tab) 650 mg PO Q4 PRN PRN Reason: Fever >100.4 F Acetaminophen (Tylenol 325mg Tab) 650 mg PO Q4 PRN PRN Reason: Pain, Mild (1-3) Aminocaproic Acid (Aminocaproic Acid 500 Mg Tab) 1,000 mg PO Q8 [facility] Last Admin: 04/29/18 17:16 Dose: 1,000 mg Bacitracin (Bacitracin Oint) 1 applic TP DAILY [facility] Last Admin: 04/29/18 09:53 Dose: 1 applic Calcium Acetate (Phoslo) 667 mg PO TID [facility] Last Admin: 04/29/18 17:16 Dose: 667 mg Dapsone (Dapsone) 100 mg PO DAILY [facility] PRN Reason: Protocol Last Admin: 04/29/18 09:53 Dose: 100 mg Finasteride (Proscar) 5 mg PO DAILY [facility] Last Admin: 04/29/18 09:53 Dose: 5 mg Fluticasone Propionate (Flonase) 1 spr [place] DAILY PRN PRN Reason: Nasal congestion Guaifenesin (Mucinex La) 1,200 mg PO Q12 [facility] Last Admin: 04/29/18 21:11 Dose: 1,200 mg HCTZ/Losartan Potassium (Hyzaar 12.5 Mg-50 Mg) 1 tab PO DAILY [facility] Last Admin: 04/29/18 09:53 Dose: 1 tab Vancomycin HCl 1 gm/ Sodium (Chloride) 250 mls @ 166.667 mls/hr IVPB TTS [facility] PRN Reason: Protocol Last Admin: 04/28/18 17:56 Dose: 166.667 mls/hr Levalbuterol HCl (Xopenex) 1.25 mg INH RQ4 PRN PRN Reason: Shortness of Breath Magnesium Hydroxide (Milk Of Magnesia) 30 ml PO DAILY PRN PRN Reason: Constipation Metoprolol Succinate (Toprol Xl) 50 mg PO Q12 [facility] Last Admin: 04/29/18 21:11 Dose: 50 mg Pantoprazole Sodium (Protonix Ec Tab) 40 mg PO DAILY [facility] Last Admin: 04/29/18 09:54 Dose: 40 mg Prednisone (Prednisone Tab) 60 mg PO DAILY [facility] Last Admin: 04/29/18 09:54 Dose: 60 mg Tamsulosin HCl (Flomax) 0.4 mg PO DAILY [facility] Last Admin: 04/29/18 09:54 Dose: 0.4 mg Vitamin B Complex/Vit C/Folic Acid (Nephro-Jj) 1 tab PO DAILY [facility] Last Admin: 04/29/18 09:53 Dose: 1 tab - Labs Labs: 04/29/18 05:20 04/29/18 05:20 PT 11.9 Seconds (9.8-13.1) 04/29/18 16:00 INR 1.1 04/29/18 16:00 APTT 26.4 Seconds (25.6-37.1) 04/25/18 23:48
[2018-04-30] MEDS: Bacitracin OINT 15GM TP SCH (09:41)
[2018-04-30] MEDS: guaiFENesin 600 mg ER Tab PO SCH ×2 (09:41→23:41)
[2018-04-30] MEDS: Metoprolol Succinate 50 mg XL Tab PO SCH ×2 (09:42→23:41)
[2018-04-30] MEDS: HCTZ/Losartan 12.5/50 Tab PO SCH (09:43)
[2018-04-30] MEDS: Pantoprazole 40 mg EC Tab PO SCH (09:43)
[2018-04-30] MEDS: Multivitamin Vitamin B Complex (Nephro-Vite) Tab PO SCH (09:44)
--- NOTE | 2018-04-30 11:55 | PN ---
Copied To: Hans Tineo MD Attending MD: Hans Tineo MD DATE: 04/30/2018 SUBJECTIVE: The patient seen and examined. Interim events noted. The patient remains in progressive care unit with telemetry monitoring. The patient is uncooperative, feels okay. Denies any chest pain or shortness of breath. PHYSICAL EXAMINATION: GENERAL: The patient is no acute distress. VITAL SIGNS: Stable. HEART: S1, S2 normal, regular. LUNGS: Good bilateral air exchange. ABDOMEN: Soft, nontender. EXTREMITIES: No edema. No calf swelling. No tenderness. No acute ischemia. RETAIL ASSISTANT: Exam is essentially unchanged. DIAGNOSTIC DATA: Available diagnostic data reviewed. Telemetry monitoring does not show significant arrhythmia. ASSESSMENT AND PLAN: Urology followup and intervention noted and appreciated. Nursing staff reported the patient is being uncooperative, refusing , the patient was counseled at length. The patient agreed to get for now. Overall, the patient is clinically stable. Plan as ordered. Hans Tineo MD
--- NOTE | 2018-04-30 19:20 | CP.PCM.PN ---
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) sec hyperpth anemia hematuria hd tts will do today per schedule lytes reviewed anemia stable monitor continue binders monitor phos levels Objective - Vital Signs/Intake and Output Vital Signs (last 24 hours): Temp Pulse Resp BP Pulse Ox 98.5 F 102 H 18 109/68 96 04/30/18 18:46 04/30/18 18:46 04/30/18 18:46 04/30/18 18:46 04/30/18 16:11 Intake and Output: 04/30/18 05/01/18 18:59 06:59 Intake Total 325 Balance 325 - Medications Medications: Current Medications Acetaminophen (Tylenol 325mg Tab) 650 mg PO Q4 PRN PRN Reason: Fever >100.4 F Acetaminophen (Tylenol 325mg Tab) 650 mg PO Q4 PRN PRN Reason: Pain, Mild (1-3) Aminocaproic Acid (Aminocaproic Acid 500 Mg Tab) 1,000 mg PO Q8 [facility] Last Admin: 04/30/18 17:49 Dose: Not Given Bacitracin (Bacitracin Oint) 1 applic TP DAILY [facility] Last Admin: 04/30/18 09:41 Dose: 1 applic Calcium Acetate (Phoslo) 667 mg PO TID [facility] Last Admin: 04/30/18 17:49 Dose: Not Given Dapsone (Dapsone) 100 mg PO DAILY [facility] PRN Reason: Protocol Last Admin: 04/30/18 09:44 Dose: 100 mg Finasteride (Proscar) 5 mg PO DAILY [facility] Last Admin: 04/30/18 09:41 Dose: 5 mg Fluticasone Propionate (Flonase) 1 spr [place] DAILY PRN PRN Reason: Nasal congestion Guaifenesin (Mucinex La) 1,200 mg PO Q12 [facility] Last Admin: 04/30/18 09:41 Dose: 1,200 mg HCTZ/Losartan Potassium (Hyzaar 12.5 Mg-50 Mg) 1 tab PO DAILY [facility] Last Admin: 04/30/18 09:43 Dose: Not Given Vancomycin HCl 1 gm/ Sodium (Chloride) 250 mls @ 166.667 mls/hr IVPB TTS [facility] PRN Reason: Protocol Last Admin: 04/30/18 17:49 Dose: Not Given Levalbuterol HCl (Xopenex) 1.25 mg INH RQ4 PRN PRN Reason: Shortness of Breath Magnesium Hydroxide (Milk Of Magnesia) 30 ml PO DAILY PRN PRN Reason: Constipation Metoprolol Succinate (Toprol Xl) 50 mg PO Q12 [facility] Last Admin: 04/30/18 09:42 Dose: Not Given Pantoprazole Sodium (Protonix Ec Tab) 40 mg PO DAILY [facility] Last Admin: 04/30/18 09:43 Dose: 40 mg Prednisone (Prednisone Tab) 60 mg PO DAILY [facility] Last Admin: 04/30/18 09:42 Dose: 60 mg Tamsulosin HCl (Flomax) 0.4 mg PO DAILY [facility] Last Admin: 04/30/18 09:43 Dose: 0.4 mg Vitamin B Complex/Vit C/Folic Acid (Nephro-Jj) 1 tab PO DAILY [facility] Last Admin: 04/30/18 09:44 Dose: 1 tab - Labs Labs: 04/29/18 05:20 04/29/18 05:20 PT 11.9 Seconds (9.8-13.1) 04/29/18 16:00 INR 1.1 04/29/18 16:00 APTT 26.4 Seconds (25.6-37.1) 04/25/18 23:48
--- NOTE | 2018-04-30 20:33 | CP.PCM.PN ---
Subjective - Date & Time of Evaluation Date of Evaluation: 04/28/18 Time of Evaluation: 16:00 - Subjective Subjective: Cont. hematuria despite cautery started on antifibrinolysis will add desmopressin Objective - Vital Signs/Intake and Output Vital Signs (last 24 hours): Temp Pulse Resp BP Pulse Ox 98.7 F 102 H 18 109/84 99 04/30/18 20:02 04/30/18 20:02 04/30/18 20:02 04/30/18 20:02 04/30/18 20:02 Intake and Output: 04/30/18 05/01/18 18:59 06:59 Intake Total 325 1781 Output Total 800 Balance 325 981 - Medications Medications: Current Medications Acetaminophen (Tylenol 325mg Tab) 650 mg PO Q4 PRN PRN Reason: Fever >100.4 F Acetaminophen (Tylenol 325mg Tab) 650 mg PO Q4 PRN PRN Reason: Pain, Mild (1-3) Aminocaproic Acid (Aminocaproic Acid 500 Mg Tab) 1,000 mg PO Q8 [facility] Last Admin: 04/30/18 17:49 Dose: Not Given Bacitracin (Bacitracin Oint) 1 applic TP DAILY [facility] Last Admin: 04/30/18 09:41 Dose: 1 applic Calcium Acetate (Phoslo) 667 mg PO TID [facility] Last Admin: 04/30/18 17:49 Dose: Not Given Dapsone (Dapsone) 100 mg PO DAILY [facility] PRN Reason: Protocol Last Admin: 04/30/18 09:44 Dose: 100 mg Finasteride (Proscar) 5 mg PO DAILY [facility] Last Admin: 04/30/18 09:41 Dose: 5 mg Fluticasone Propionate (Flonase) 1 spr [place] DAILY PRN PRN Reason: Nasal congestion Guaifenesin (Mucinex La) 1,200 mg PO Q12 [facility] Last Admin: 04/30/18 09:41 Dose: 1,200 mg HCTZ/Losartan Potassium (Hyzaar 12.5 Mg-50 Mg) 1 tab PO DAILY [facility] Last Admin: 04/30/18 09:43 Dose: Not Given Vancomycin HCl 1 gm/ Sodium (Chloride) 250 mls @ 166.667 mls/hr IVPB TTS [facility] PRN Reason: Protocol Last Admin: 04/30/18 19:30 Dose: 166.667 mls/hr Levalbuterol HCl (Xopenex) 1.25 mg INH RQ4 PRN PRN Reason: Shortness of Breath Magnesium Hydroxide (Milk Of Magnesia) 30 ml PO DAILY PRN PRN Reason: Constipation Metoprolol Succinate (Toprol Xl) 50 mg PO Q12 [facility] Last Admin: 04/30/18 09:42 Dose: Not Given Pantoprazole Sodium (Protonix Ec Tab) 40 mg PO DAILY [facility] Last Admin: 04/30/18 09:43 Dose: 40 mg Prednisone (Prednisone Tab) 60 mg PO DAILY [facility] Last Admin: 04/30/18 09:42 Dose: 60 mg Tamsulosin HCl (Flomax) 0.4 mg PO DAILY [facility] Last Admin: 04/30/18 09:43 Dose: 0.4 mg Vitamin B Complex/Vit C/Folic Acid (Nephro-Jj) 1 tab PO DAILY [facility] Last Admin: 04/30/18 09:44 Dose: 1 tab - Labs Labs: 04/29/18 05:20 04/29/18 05:20 PT 11.9 Seconds (9.8-13.1) 04/29/18 16:00 INR 1.1 04/29/18 16:00 APTT 26.4 Seconds (25.6-37.1) 04/25/18 23:48 - Head Exam Head Exam: ATRAUMATIC - Eye Exam Eye Exam: Normal appearance - ENT Exam ENT Exam: Mucous Membranes Dry - Respiratory Exam Respiratory Exam: NORMAL BREATHING PATTERN - Cardiovascular Exam Cardiovascular Exam: +S1, +S2 - GI/Abdominal Exam GI & Abdominal Exam: Normal Bowel Sounds Assessment and Plan (1) Hematuria Assessment & Plan: s/p cautery by urology will give vit k on antifibrinolysis will add desmopressin Status: Acute (2) Anemia Assessment & Plan: anemia of CKD hematuria chronic disease transfusion support EPO per renal Status: Acute (3) Prostate cancer Assessment & Plan: [place] 8 CT A/P show inguinal, iliac, and pelvic lymphadenopathy; will need to be reviewed with radiology ? prostate cancer mets urology evaluation if localized prostate cancer, would benefit from androgen deprivation and radiotherapy Status: Acute
--- NOTE | 2018-04-30 20:35 | CP.PCM.PN ---
Subjective - Date & Time of Evaluation Date of Evaluation: 04/29/18 Time of Evaluation: 19:00 - Subjective Subjective: Cont. to have hematuria Objective - Vital Signs/Intake and Output Vital Signs (last 24 hours): Temp Pulse Resp BP Pulse Ox 98.7 F 102 H 18 109/84 99 04/30/18 20:02 04/30/18 20:02 04/30/18 20:02 04/30/18 20:02 04/30/18 20:02 Intake and Output: 04/30/18 05/01/18 18:59 06:59 Intake Total 325 1781 Output Total 800 Balance 325 981 - Medications Medications: Current Medications Acetaminophen (Tylenol 325mg Tab) 650 mg PO Q4 PRN PRN Reason: Fever >100.4 F Acetaminophen (Tylenol 325mg Tab) 650 mg PO Q4 PRN PRN Reason: Pain, Mild (1-3) Aminocaproic Acid (Aminocaproic Acid 500 Mg Tab) 1,000 mg PO Q8 [facility] Last Admin: 04/30/18 17:49 Dose: Not Given Bacitracin (Bacitracin Oint) 1 applic TP DAILY [facility] Last Admin: 04/30/18 09:41 Dose: 1 applic Calcium Acetate (Phoslo) 667 mg PO TID [facility] Last Admin: 04/30/18 17:49 Dose: Not Given Dapsone (Dapsone) 100 mg PO DAILY [facility] PRN Reason: Protocol Last Admin: 04/30/18 09:44 Dose: 100 mg Finasteride (Proscar) 5 mg PO DAILY [facility] Last Admin: 04/30/18 09:41 Dose: 5 mg Fluticasone Propionate (Flonase) 1 spr [place] DAILY PRN PRN Reason: Nasal congestion Guaifenesin (Mucinex La) 1,200 mg PO Q12 [facility] Last Admin: 04/30/18 09:41 Dose: 1,200 mg HCTZ/Losartan Potassium (Hyzaar 12.5 Mg-50 Mg) 1 tab PO DAILY [facility] Last Admin: 04/30/18 09:43 Dose: Not Given Vancomycin HCl 1 gm/ Sodium (Chloride) 250 mls @ 166.667 mls/hr IVPB TTS [facility] PRN Reason: Protocol Last Admin: 04/30/18 19:30 Dose: 166.667 mls/hr Levalbuterol HCl (Xopenex) 1.25 mg INH RQ4 PRN PRN Reason: Shortness of Breath Magnesium Hydroxide (Milk Of Magnesia) 30 ml PO DAILY PRN PRN Reason: Constipation Metoprolol Succinate (Toprol Xl) 50 mg PO Q12 [facility] Last Admin: 04/30/18 09:42 Dose: Not Given Pantoprazole Sodium (Protonix Ec Tab) 40 mg PO DAILY [facility] Last Admin: 04/30/18 09:43 Dose: 40 mg Prednisone (Prednisone Tab) 60 mg PO DAILY [facility] Last Admin: 04/30/18 09:42 Dose: 60 mg Tamsulosin HCl (Flomax) 0.4 mg PO DAILY [facility] Last Admin: 04/30/18 09:43 Dose: 0.4 mg Vitamin B Complex/Vit C/Folic Acid (Nephro-Jj) 1 tab PO DAILY [facility] Last Admin: 04/30/18 09:44 Dose: 1 tab - Labs Labs: 04/29/18 05:20 04/29/18 05:20 PT 11.9 Seconds (9.8-13.1) 04/29/18 16:00 INR 1.1 04/29/18 16:00 APTT 26.4 Seconds (25.6-37.1) 04/25/18 23:48 - Head Exam Head Exam: ATRAUMATIC - Eye Exam Eye Exam: Normal appearance - ENT Exam ENT Exam: Mucous Membranes Dry - Respiratory Exam Respiratory Exam: NORMAL BREATHING PATTERN - Cardiovascular Exam Cardiovascular Exam: +S1, +S2 - GI/Abdominal Exam GI & Abdominal Exam: Normal Bowel Sounds Assessment and Plan (1) Hematuria Assessment & Plan: s/p cautery by urology s/p vit k on antifibrinolysis s/p desmopressin of note, pt will have plt dysfunction from uremia Status: Acute (2) Anemia Assessment & Plan: anemia of CKD hematuria chronic disease transfusion support EPO per renal Status: Acute (3) Prostate cancer Assessment & Plan: [place] 8 CT A/P show inguinal, iliac, and pelvic lymphadenopathy; will need to be reviewed with radiology ? prostate cancer mets urology evaluation if localized prostate cancer, would benefit from androgen deprivation and radiotherapy Status: Acute
--- NOTE | 2018-04-30 20:38 | CP.PCM.PN ---
Subjective - Date & Time of Evaluation Date of Evaluation: 04/30/18 Time of Evaluation: 16:00 - Subjective Subjective: No complaints, hematuria noted Objective - Vital Signs/Intake and Output Vital Signs (last 24 hours): Temp Pulse Resp BP Pulse Ox 98.7 F 102 H 18 109/84 99 04/30/18 20:02 04/30/18 20:02 04/30/18 20:02 04/30/18 20:02 04/30/18 20:02 Intake and Output: 04/30/18 05/01/18 18:59 06:59 Intake Total 325 1781 Output Total 800 Balance 325 981 - Medications Medications: Current Medications Acetaminophen (Tylenol 325mg Tab) 650 mg PO Q4 PRN PRN Reason: Fever >100.4 F Acetaminophen (Tylenol 325mg Tab) 650 mg PO Q4 PRN PRN Reason: Pain, Mild (1-3) Aminocaproic Acid (Aminocaproic Acid 500 Mg Tab) 1,000 mg PO Q8 [facility] Last Admin: 04/30/18 17:49 Dose: Not Given Bacitracin (Bacitracin Oint) 1 applic TP DAILY [facility] Last Admin: 04/30/18 09:41 Dose: 1 applic Calcium Acetate (Phoslo) 667 mg PO TID [facility] Last Admin: 04/30/18 17:49 Dose: Not Given Dapsone (Dapsone) 100 mg PO DAILY [facility] PRN Reason: Protocol Last Admin: 04/30/18 09:44 Dose: 100 mg Finasteride (Proscar) 5 mg PO DAILY [facility] Last Admin: 04/30/18 09:41 Dose: 5 mg Fluticasone Propionate (Flonase) 1 spr [place] DAILY PRN PRN Reason: Nasal congestion Guaifenesin (Mucinex La) 1,200 mg PO Q12 [facility] Last Admin: 04/30/18 09:41 Dose: 1,200 mg HCTZ/Losartan Potassium (Hyzaar 12.5 Mg-50 Mg) 1 tab PO DAILY [facility] Last Admin: 04/30/18 09:43 Dose: Not Given Vancomycin HCl 1 gm/ Sodium (Chloride) 250 mls @ 166.667 mls/hr IVPB TTS [facility] PRN Reason: Protocol Last Admin: 04/30/18 19:30 Dose: 166.667 mls/hr Levalbuterol HCl (Xopenex) 1.25 mg INH RQ4 PRN PRN Reason: Shortness of Breath Magnesium Hydroxide (Milk Of Magnesia) 30 ml PO DAILY PRN PRN Reason: Constipation Metoprolol Succinate (Toprol Xl) 50 mg PO Q12 [facility] Last Admin: 04/30/18 09:42 Dose: Not Given Pantoprazole Sodium (Protonix Ec Tab) 40 mg PO DAILY [facility] Last Admin: 04/30/18 09:43 Dose: 40 mg Prednisone (Prednisone Tab) 60 mg PO DAILY [facility] Last Admin: 04/30/18 09:42 Dose: 60 mg Tamsulosin HCl (Flomax) 0.4 mg PO DAILY [facility] Last Admin: 04/30/18 09:43 Dose: 0.4 mg Vitamin B Complex/Vit C/Folic Acid (Nephro-Jj) 1 tab PO DAILY [facility] Last Admin: 04/30/18 09:44 Dose: 1 tab - Labs Labs: 04/29/18 05:20 04/29/18 05:20 PT 11.9 Seconds (9.8-13.1) 04/29/18 16:00 INR 1.1 04/29/18 16:00 APTT 26.4 Seconds (25.6-37.1) 04/25/18 23:48 - Head Exam Head Exam: ATRAUMATIC - Eye Exam Eye Exam: Normal appearance - ENT Exam ENT Exam: Mucous Membranes Dry - Respiratory Exam Respiratory Exam: NORMAL BREATHING PATTERN - Cardiovascular Exam Cardiovascular Exam: +S1, +S2 - GI/Abdominal Exam GI & Abdominal Exam: Normal Bowel Sounds Assessment and Plan (1) Hematuria Assessment & Plan: s/p cautery by urology will give vit k on antifibrinolysis redose desmopressin Status: Acute (2) Anemia Assessment & Plan: anemia of CKD hematuria chronic disease transfusion support EPO per renal Status: Acute (3) Prostate cancer Assessment & Plan: [place] 8 CT A/P show inguinal, iliac, and pelvic lymphadenopathy; will need to be reviewed with radiology ? prostate cancer mets urology evaluation if localized prostate cancer, would benefit from androgen deprivation and radiotherapy Status: Acute
[2018-04-30] MEDS ORDERED: Desmopressin 4 mcg/ml Inj (1 ml) IVP SCH (20:40)
[2018-04-30] MEDS: Desmopressin 20 MCG in Sodium Chloride 0.9% 50 ML IV SCH (23:41)
[2018-05-01] MEDS: Metoprolol Succinate 50 mg XL Tab PO SCH ×2 (08:43→21:17)
[2018-05-01] MEDS: HCTZ/Losartan 12.5/50 Tab PO SCH (08:43)
[2018-05-01] MEDS: guaiFENesin 600 mg ER Tab PO SCH ×2 (08:44→21:16)
[2018-05-01] MEDS: Multivitamin Vitamin B Complex (Nephro-Vite) Tab PO SCH (08:44)
[2018-05-01] MEDS: Bacitracin OINT 15GM TP SCH (08:45)
[2018-05-01] MEDS: Pantoprazole 40 mg EC Tab PO SCH (08:45)
--- NOTE | 2018-05-01 10:53 | PN ---
Copied To: Hans Tineo MD Attending MD: Hans Tineo MD DATE: 05/01/2018 SUBJECTIVE: The patient seen and examined. Interim events noted. The patient remains in regular medical floor with telemetry monitoring. Has indwelling catheter draining blood-mixed urine. The patient is quickly arousable, historian, feels okay. Denies any specific complaint of chest pain or shortness of breath, although the patient is a very poor historian. No specific urinary issue reported as well. PHYSICAL EXAMINATION: GENERAL: The patient is in no acute distress. VITAL SIGNS: Stable. HEART: S1, S2 normal and regular. LUNGS: Good bilateral air exchange. ABDOMEN: Soft and nontender. No organomegaly. No fluids. Bowel sounds are plus and normal. EXTREMITIES: No edema. No calf swelling. No tenderness. No acute ischemia. COOPERATIVE EXTENSION AGENT: Exam is essentially unchanged. As mentioned earlier, the patient's Banks catheter has blood-mixed urine. DIAGNOSTIC DATA: Available diagnostic data reviewed. Telemetry monitoring does not reveal significant arrhythmia. ASSESSMENT AND PLAN: Overall, the patient's general medical condition is hemodynamically stable. Plan as ordered. Hans Tineo MD
[2018-05-01] MEDS: Desmopressin 20 MCG in Sodium Chloride 0.9% 50 ML IV SCH (21:16)
[2018-05-02] MEDS: Bacitracin OINT 15GM TP SCH (09:09)
[2018-05-02] MEDS: Metoprolol Succinate 50 mg XL Tab PO SCH ×2 (09:10→22:08)
[2018-05-02] MEDS: Multivitamin Vitamin B Complex (Nephro-Vite) Tab PO SCH (09:14)
[2018-05-02] MEDS: guaiFENesin 600 mg ER Tab PO SCH ×2 (09:15→22:08)
[2018-05-02] MEDS: HCTZ/Losartan 12.5/50 Tab PO SCH (09:15)
[2018-05-02] MEDS: Pantoprazole 40 mg EC Tab PO SCH (09:15)
--- NOTE | 2018-05-02 17:50 | PN ---
Copied To: Hans Tineo MD Attending MD: Hans Tineo MD DATE: 05/02/2018 SUBJECTIVE: The patient seen and examined. Interim events noted. The patient remains in progressive care unit on telemetry monitoring with bladder irrigation for continued hematuria. The patient is not a good historian. Denies any specific complaint of chest pain or shortness of breath or any urinary symptoms. PHYSICAL EXAMINATION: GENERAL: The patient is no acute distress. VITAL SIGNS: Stable. HEART: S1 and S2, normal and regular. LUNGS: Good bilateral air exchange. ABDOMEN: Soft and nontender. No organomegaly. No fluids. Bowel sounds are plus and normal. EXTREMITIES: No edema. No calf swelling. No tenderness. No acute ischemia. FRIT COATER: Exam is essentially unchanged. GENITOURINARY: The patient has an indwelling Banks catheter with bladder irrigation draining mixed blood and urine. DIAGNOSTIC DATA: Available diagnostic data reviewed. ASSESSMENT AND PLAN: Overall, the patient's general medical condition is stable, but the patient continues to have hematuria, might need further workup for the same. Plan as ordered. Case and plan discussed with the patient all that mentioned earlier. The patient is not able to . Hans Tineo MD
[2018-05-02] MEDS: Desmopressin 20 MCG in Sodium Chloride 0.9% 50 ML IV SCH (22:10)
[2018-05-03 06:13] LABS: BASO % 0.4 % (0.0-2.0); EOS # 0.1 K/uL (0.0-0.7); EOS % 0.9 % (0.0-4.0); HEMOGLOBIN 6.7 g/dL (12.0-18.0); LYMPH # 0.8 K/uL (1.0-4.3); LYMPH % 7.7 % (20.0-40.0); MEAN CELL VOLUME 92.1 fl (80.0-94.0); MEAN CORPUSCULAR HGB CONC 33.7 g/dL (33.0-37.0); MEAN PLATELET VOLUME 6.7 fl (7.2-11.7); MONO # 1.2 K/uL (0.0-0.8); PLATELET COUNT 175 K/uL (130-400); RBC 2.16 Mil/uL (4.40-5.90); RED CELL DISTRIBUTION WIDTH 15.5 % (11.5-14.5); WHITE BLOOD COUNT 10.2 K/uL (4.8-10.8)
[2018-05-03 06:38] LABS: CALCIUM 7.4 mg/dL (8.4-10.2)
--- NOTE | 2018-05-03 09:49 | CP.PCM.PN ---
Subjective - Date & Time of Evaluation Date of Evaluation: 05/03/18 Time of Evaluation: 09:48 - Subjective Subjective: awake and conscious not in acute distress. No nausea no vomiting Gross hematuria noted persisted Objective - Vital Signs/Intake and Output Vital Signs (last 24 hours): Temp Pulse Resp BP Pulse Ox 98.4 F 93 H 20 113/66 98 05/03/18 08:15 05/03/18 08:15 05/03/18 08:15 05/03/18 08:15 05/03/18 08:15 Intake and Output: 05/03/18 05/03/18 06:59 18:59 Intake Total 240 Output Total 600 Balance -360 - Medications Medications: Current Medications Acetaminophen (Tylenol 325mg Tab) 650 mg PO Q4 PRN PRN Reason: Fever >100.4 F Acetaminophen (Tylenol 325mg Tab) 650 mg PO Q4 PRN PRN Reason: Pain, Mild (1-3) Aminocaproic Acid (Aminocaproic Acid 500 Mg Tab) 1,000 mg PO Q8 [facility] Last Admin: 05/03/18 01:17 Dose: Not Given Bacitracin (Bacitracin Oint) 1 applic TP DAILY [facility] Last Admin: 05/02/18 09:09 Dose: 1 applic Calcium Acetate (Phoslo) 667 mg PO TID [facility] Last Admin: 05/02/18 17:48 Dose: 667 mg Dapsone (Dapsone) 100 mg PO DAILY [facility] PRN Reason: Protocol Last Admin: 05/02/18 13:09 Dose: 100 mg Finasteride (Proscar) 5 mg PO DAILY [facility] Last Admin: 05/02/18 09:10 Dose: 5 mg Fluticasone Propionate (Flonase) 1 spr [place] DAILY PRN PRN Reason: Nasal congestion Guaifenesin (Mucinex La) 1,200 mg PO Q12 [facility] Last Admin: 05/02/18 22:08 Dose: 1,200 mg HCTZ/Losartan Potassium (Hyzaar 12.5 Mg-50 Mg) 1 tab PO DAILY [facility] Last Admin: 05/02/18 09:15 Dose: 1 tab Vancomycin HCl 1 gm/ Sodium (Chloride) 250 mls @ 166.667 mls/hr IVPB TTS [facility] PRN Reason: Protocol Last Admin: 04/30/18 19:30 Dose: 166.667 mls/hr Magnesium Hydroxide (Milk Of Magnesia) 30 ml PO DAILY PRN PRN Reason: Constipation Metoprolol Succinate (Toprol Xl) 50 mg PO Q12 [facility] Last Admin: 05/02/18 22:08 Dose: 50 mg Pantoprazole Sodium (Protonix Ec Tab) 40 mg PO DAILY [facility] Last Admin: 05/02/18 09:15 Dose: 40 mg Tamsulosin HCl (Flomax) 0.4 mg PO DAILY [facility] Last Admin: 05/02/18 09:14 Dose: 0.4 mg Vitamin B Complex/Vit C/Folic Acid (Nephro-Jj) 1 tab PO DAILY [facility] Last Admin: 05/02/18 09:14 Dose: 1 tab - Labs Labs: 05/03/18 05:40 05/03/18 05:40 PT 11.9 Seconds (9.8-13.1) 04/29/18 16:00 INR 1.1 04/29/18 16:00 APTT 26.4 Seconds (25.6-37.1) 04/25/18 23:48 - Constitutional Appears: No Acute Distress - Neck Exam Neck Exam: absent: Lymphadenopathy - Respiratory Exam Respiratory Exam: NORMAL BREATHING PATTERN. 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 Blood transfusion 2 unit on hemodialysis Continue monitoring Discussed with the nurse practitioner Status: Acute
[2018-05-03] MEDS: Metoprolol Succinate 50 mg XL Tab PO SCH ×2 (10:02→21:48)
[2018-05-03] MEDS: Pantoprazole 40 mg EC Tab PO SCH (10:03)
[2018-05-03] MEDS: guaiFENesin 600 mg ER Tab PO SCH ×2 (10:03→21:47)
[2018-05-03] MEDS: HCTZ/Losartan 12.5/50 Tab PO SCH (10:03)
[2018-05-03] MEDS: Bacitracin OINT 15GM TP SCH (10:04)
[2018-05-03] MEDS: Multivitamin Vitamin B Complex (Nephro-Vite) Tab PO SCH (10:04)
[2018-05-03 10:28] LABS: BANDS 3 % (0-2); LYMPHOCYTE 9 % (20-50); MONOCYTE 13 % (0-10); NEUTROPHIL 75 % (42-75); TOTAL CELLS COUNTED 100
[2018-05-03 10:29] LABS: ANISOCYTOSIS SLIGHT; PLATELET ESTIMATE NORMAL (NORMAL)
[2018-05-03 10:34] LABS: HYPOCHROMIC MODERATE
[2018-05-03 10:35] LABS: OVALOCYTES SLIGHT; SCHISTOCYTES SLIGHT; TOXIC GRANULATION PRESENT
--- NOTE | 2018-05-03 11:33 | CP.PCM.PN ---
Subjective - Date & Time of Evaluation Date of Evaluation: 05/03/18 Time of Evaluation: 10:00 - Subjective Subjective: No complaints. Cont. to have hematuria Objective - Vital Signs/Intake and Output Vital Signs (last 24 hours): Temp Pulse Resp BP Pulse Ox 98.4 F 93 H 20 113/66 98 05/03/18 08:15 05/03/18 08:15 05/03/18 08:15 05/03/18 08:15 05/03/18 08:15 Intake and Output: 05/03/18 05/03/18 06:59 18:59 Intake Total 240 1500 Output Total 600 2600 Balance -360 -1100 - Medications Medications: Current Medications Acetaminophen (Tylenol 325mg Tab) 650 mg PO Q4 PRN PRN Reason: Fever >100.4 F Acetaminophen (Tylenol 325mg Tab) 650 mg PO Q4 PRN PRN Reason: Pain, Mild (1-3) Aminocaproic Acid (Aminocaproic Acid 500 Mg Tab) 1,000 mg PO Q8 [facility] Last Admin: 05/03/18 10:04 Dose: 1,000 mg Bacitracin (Bacitracin Oint) 1 applic TP DAILY [facility] Last Admin: 05/03/18 10:04 Dose: 1 applic Calcium Acetate (Phoslo) 667 mg PO TID [facility] Last Admin: 05/03/18 10:02 Dose: 667 mg Dapsone (Dapsone) 100 mg PO DAILY [facility] PRN Reason: Protocol Last Admin: 05/03/18 10:03 Dose: 100 mg Finasteride (Proscar) 5 mg PO DAILY [facility] Last Admin: 05/03/18 10:03 Dose: 5 mg Fluticasone Propionate (Flonase) 1 spr [place] DAILY PRN PRN Reason: Nasal congestion Guaifenesin (Mucinex La) 1,200 mg PO Q12 [facility] Last Admin: 05/03/18 10:03 Dose: 1,200 mg HCTZ/Losartan Potassium (Hyzaar 12.5 Mg-50 Mg) 1 tab PO DAILY [facility] Last Admin: 05/03/18 10:03 Dose: 1 tab Vancomycin HCl 1 gm/ Sodium (Chloride) 250 mls @ 166.667 mls/hr IVPB TTS [facility] PRN Reason: Protocol Last Admin: 04/30/18 19:30 Dose: 166.667 mls/hr Magnesium Hydroxide (Milk Of Magnesia) 30 ml PO DAILY [facility]N PRN Reason: Constipation Metoprolol Succinate (Toprol Xl) 50 mg PO Q12 [facility] Last Admin: 05/03/18 10:02 Dose: 50 mg Pantoprazole Sodium (Protonix Ec Tab) 40 mg PO DAILY [facility] Last Admin: 05/03/18 10:03 Dose: 40 mg Tamsulosin HCl (Flomax) 0.4 mg PO DAILY [facility] Last Admin: 05/03/18 10:04 Dose: 0.4 mg Vitamin B Complex/Vit C/Folic Acid (Nephro-Jj) 1 tab PO DAILY [facility] Last Admin: 05/03/18 10:04 Dose: 1 tab - Labs Labs: 05/03/18 05:40 05/03/18 05:40 PT 11.9 Seconds (9.8-13.1) 04/29/18 16:00 INR 1.1 04/29/18 16:00 APTT 26.4 Seconds (25.6-37.1) 04/25/18 23:48 - Head Exam Head Exam: ATRAUMATIC - Eye Exam Eye Exam: Normal appearance - ENT Exam ENT Exam: Mucous Membranes Dry - Respiratory Exam Respiratory Exam: NORMAL BREATHING PATTERN - Cardiovascular Exam Cardiovascular Exam: +S1, +S2 - GI/Abdominal Exam GI & Abdominal Exam: Normal Bowel Sounds Assessment and Plan (1) Hematuria Assessment & Plan: ? bladder bleeding ? relate to prostate cancer ? kidney bleed given nephritis on Amicar, desmopressin, s/p cystoscopy with cauterization urine visually does not appear to be clearing if related to prostate cancer, would benefit from rad onc evaluation for radiation repeat coags and fibrinogen today pt will have platelet dysfunction from uremia past history does not suggest bleeding diathesis Status: Acute (2) Anemia Assessment & Plan: acute bleeding anemia of CKD transfusion support PRN Status: Acute (3) Prostate cancer Assessment & Plan: [place] 8 CT A/P show inguinal, iliac, and pelvic lymphadenopathy if localized prostate cancer, would benefit from androgen deprivation and radiotherapy Status: Acute
--- NOTE | 2018-05-03 11:41 | CP.PCM.PN ---
<Don Perry - Last Filed: 05/03/18 17:34> Subjective - Date & Time of Evaluation Date of Evaluation: 05/03/18 Time of Evaluation: 08:10 - Subjective Subjective: Pt seen and examined at bedside with Dr. Tineo. No acute events overnight. Pt denies CP/SOB. Tolerating PO diet. Pt continues to have hematuria via hadley catheter. Objective - Vital Signs/Intake and Output Vital Signs (last 24 hours): Temp Pulse Resp BP Pulse Ox 98.4 F 93 H 20 113/66 98 05/03/18 08:15 05/03/18 08:15 05/03/18 08:15 05/03/18 08:15 05/03/18 08:15 Intake and Output: 05/03/18 05/03/18 06:59 18:59 Intake Total 240 1500 Output Total 600 2600 Balance -360 -1100 - Medications Medications: Current Medications Acetaminophen (Tylenol 325mg Tab) 650 mg PO Q4 PRN PRN Reason: Fever >100.4 F Acetaminophen (Tylenol 325mg Tab) 650 mg PO Q4 PRN PRN Reason: Pain, Mild (1-3) Aminocaproic Acid (Aminocaproic Acid 500 Mg Tab) 1,000 mg PO Q8 [facility] Last Admin: 05/03/18 10:04 Dose: 1,000 mg Bacitracin (Bacitracin Oint) 1 applic TP DAILY [facility] Last Admin: 05/03/18 10:04 Dose: 1 applic Calcium Acetate (Phoslo) 667 mg PO TID [facility] Last Admin: 05/03/18 10:02 Dose: 667 mg Dapsone (Dapsone) 100 mg PO DAILY [facility] PRN Reason: Protocol Last Admin: 05/03/18 10:03 Dose: 100 mg Finasteride (Proscar) 5 mg PO DAILY [facility] Last Admin: 05/03/18 10:03 Dose: 5 mg Fluticasone Propionate (Flonase) 1 spr [place] DAILY PRN PRN Reason: Nasal congestion Guaifenesin (Mucinex La) 1,200 mg PO Q12 [facility] Last Admin: 05/03/18 10:03 Dose: 1,200 mg HCTZ/Losartan Potassium (Hyzaar 12.5 Mg-50 Mg) 1 tab PO DAILY [facility] Last Admin: 05/03/18 10:03 Dose: 1 tab Vancomycin HCl 1 gm/ Sodium (Chloride) 250 mls @ 166.667 mls/hr IVPB TTS [facility] PRN Reason: Protocol Last Admin: 04/30/18 19:30 Dose: 166.667 mls/hr Magnesium Hydroxide (Milk Of Magnesia) 30 ml PO DAILY [facility]N PRN Reason: Constipation Metoprolol Succinate (Toprol Xl) 50 mg PO Q12 [facility] Last Admin: 05/03/18 10:02 Dose: 50 mg Pantoprazole Sodium (Protonix Ec Tab) 40 mg PO DAILY [facility] Last Admin: 05/03/18 10:03 Dose: 40 mg Tamsulosin HCl (Flomax) 0.4 mg PO DAILY [facility] Last Admin: 05/03/18 10:04 Dose: 0.4 mg Vitamin B Complex/Vit C/Folic Acid (Nephro-Jj) 1 tab PO DAILY [facility] Last Admin: 05/03/18 10:04 Dose: 1 tab - Labs Labs: 05/03/18 05:40 05/03/18 05:40 PT 11.9 Seconds (9.8-13.1) 04/29/18 16:00 INR 1.1 04/29/18 16:00 APTT 26.4 Seconds (25.6-37.1) 04/25/18 23:48 - Constitutional Appears: No Acute Distress - Eye Exam Eye Exam: EOMI - Respiratory Exam Respiratory Exam: Clear to Ausculation Bilateral, NORMAL BREATHING PATTERN. absent: Wheezes - Cardiovascular Exam Cardiovascular Exam: +S1, +S2 - GI/Abdominal Exam GI & Abdominal Exam: Soft, Normal Bowel Sounds. absent: Tenderness - Exam Additional comments: hematuria - Neurological Exam Neurological Exam: Alert, Awake Assessment and Plan - Assessment and Plan (Free Text) Assessment: 77 yo M with pmhx of ductal prostate cancer, ESRD and HTN admitted for gross hematuria. Plan: Continue with current treatment plan as ordered. Anemia with hematuria -pt to receive 2 additional units of PRBC with HD today (h/h: 6.7/19.9) -f/u am CBC, BMP, coag -Dr. Armas: r/o bladder bleed, prostate ca, kidney bleed; f/u coag, plt fxn, fibrinogen -Dr. Bernabe: recommendations appreciated -Dr. Jeffries: NPO at midnight Case dw Dr. Noman Perry MD PGY2 <Hans Tineo - Last Filed: 05/04/18 05:24> Objective - Vital Signs/Intake and Output Vital Signs (last 24 hours): Temp Pulse Resp BP Pulse Ox 98.5 F 97 H 18 123/74 96 05/04/18 04:49 05/04/18 04:49 05/04/18 04:49 05/04/18 04:49 05/04/18 04:49 Intake and Output: 05/03/18 05/04/18 18:59 06:59 Intake Total 3750 1425 Output Total 3750 0 Balance 0 1425 - Medications Medications: Current Medications Acetaminophen (Tylenol 325mg Tab) 650 mg PO Q4 PRN PRN Reason: Fever >100.4 F Acetaminophen (Tylenol 325mg Tab) 650 mg PO Q4 PRN PRN Reason: Pain, Mild (1-3) Aminocaproic Acid (Aminocaproic Acid 500 Mg Tab) 1,000 mg PO Q8 [facility] Last Admin: 05/04/18 01:16 Dose: 1,000 mg Bacitracin (Bacitracin Oint) 1 applic TP DAILY [facility] Last Admin: 05/03/18 10:04 Dose: 1 applic Calcium Acetate (Phoslo) 667 mg PO TID [facility] Last Admin: 05/03/18 16:07 Dose: Not Given Dapsone (Dapsone) 100 mg PO DAILY [facility] PRN Reason: Protocol Last Admin: 05/03/18 10:03 Dose: 100 mg Finasteride (Proscar) 5 mg PO DAILY [facility] Last Admin: 05/03/18 10:03 Dose: 5 mg Fluticasone Propionate (Flonase) 1 spr [facility] DAILY PRN PRN Reason: Nasal congestion Guaifenesin (Mucinex La) 1,200 mg PO Q12 [facility] Last Admin: 05/03/18 21:47 Dose: 1,200 mg HCTZ/Losartan Potassium (Hyzaar 12.5 Mg-50 Mg) 1 tab PO DAILY [facility] Last Admin: 05/03/18 10:03 Dose: 1 tab Magnesium Hydroxide (Milk Of Magnesia) 30 ml PO DAILY PRN PRN Reason: Constipation Metoprolol Succinate (Toprol Xl) 50 mg PO Q12 [facility] Last Admin: 05/03/18 21:48 Dose: Not Given Pantoprazole Sodium (Protonix Ec Tab) 40 mg PO DAILY [facility] Last Admin: 05/03/18 10:03 Dose: Not Given Tamsulosin HCl (Flomax) 0.4 mg PO DAILY [facility] Last Admin: 05/03/18 10:04 Dose: Not Given Vitamin B Complex/Vit C/Folic Acid (Nephro-Jj) 1 tab PO DAILY [facility] Last Admin: 05/03/18 10:04 Dose: 1 tab - Labs Labs: 05/03/18 05:40 05/03/18 05:40 PT 11.7 Seconds (9.8-13.1) 05/03/18 20:15 INR 1.1 05/03/18 20:15 APTT 27.3 Seconds (25.6-37.1) 05/03/18 20:15 Assessment and Plan - Assessment and Plan (Free Text) Plan: Patient was personally seen and examined by me in rounds with residents. Available labs and diagnostic data reviewed. Case, Patient's condition and management plan discussed with residents in rounds. Agree with resident's progress note. Plan: As ordered.
[2018-05-04 00:39] LABS: INR 1.1; PROTHROMBIN TIME 11.7 Seconds (9.8-13.1)
[2018-05-04 00:50] LABS: PARTIAL THROMBOPLASTIN TIME 27.3 Seconds (25.6-37.1)
[2018-05-04 05:50] LABS: HEMOGLOBIN 7.7 g/dL (12.0-18.0); MEAN CELL VOLUME 92.3 fl (80.0-94.0); MEAN CORPUSCULAR HEMOGLOBIN 30.2 pg (27.0-31.0); MEAN CORPUSCULAR HGB CONC 32.7 g/dL (33.0-37.0); RBC 2.56 Mil/uL (4.40-5.90); RED CELL DISTRIBUTION WIDTH 15.1 % (11.5-14.5)
[2018-05-04 06:04] LABS: CALCIUM 7.1 mg/dL (8.4-10.2)
[2018-05-04] MEDS ORDERED: Propofol 10 mg/ml Inj (20 ML) ONE (06:58)
[2018-05-04] MEDS ORDERED: Midazolam 2 MG/2 ML VIAL ONE (06:59)
[2018-05-04] MEDS ORDERED: Lidocaine 1% 5ml Abboject IV ONE (06:59)
[2018-05-04] MEDS ORDERED: Lidocaine 2% Jelly (5 ml) TOP ONE (06:59)
[2018-05-04] MEDS ORDERED: Etomidate 20 mg/10ml Inj IV ONE (07:15)
[2018-05-04] MEDS ORDERED: cefTRIAXone (Rocephin) 1 gm Inj ONE (08:01)
[2018-05-04] MEDS ORDERED: cefTRIAXone (Rocephin) 1 gm Inj IM ONE (08:10)
--- NOTE | 2018-05-04 08:34 | CP.PCM.PN ---
<Don Perry - Last Filed: 05/04/18 14:42> Subjective - Date & Time of Evaluation Date of Evaluation: 05/04/18 Time of Evaluation: 07:00 - Subjective Subjective: Pt seen and examined at bedside with Dr. Tineo. No acute events overnight. Pt denies CP/SOB. NPO overnight . Pt continues to have hematuria via hadley catheter. Pending surgery per Dr. Jeffries today. Objective - Vital Signs/Intake and Output Vital Signs (last 24 hours): Temp Pulse Resp BP Pulse Ox 98.2 F 91 H 18 110/54 L 97 05/04/18 08:13 05/04/18 08:13 05/04/18 08:13 05/04/18 08:13 05/04/18 08:13 Intake and Output: 05/04/18 05/04/18 06:59 18:59 Intake Total 1665 Output Total 1300 Balance 365 - Medications Medications: Current Medications Acetaminophen (Tylenol 325mg Tab) 650 mg PO Q4 PRN PRN Reason: Fever >100.4 F Acetaminophen (Tylenol 325mg Tab) 650 mg PO Q4 PRN PRN Reason: Pain, Mild (1-3) Aminocaproic Acid (Aminocaproic Acid 500 Mg Tab) 1,000 mg PO Q8 [facility] Last Admin: 05/04/18 01:16 Dose: 1,000 mg Bacitracin (Bacitracin Oint) 1 applic TP DAILY [facility] Last Admin: 05/03/18 10:04 Dose: 1 applic Calcium Acetate (Phoslo) 667 mg PO TID [facility] Last Admin: 05/03/18 16:07 Dose: Not Given Dapsone (Dapsone) 100 mg PO DAILY [facility] PRN Reason: Protocol Last Admin: 05/03/18 10:03 Dose: 100 mg Finasteride (Proscar) 5 mg PO DAILY [facility] Last Admin: 05/03/18 10:03 Dose: 5 mg Fluticasone Propionate (Flonase) 1 spr [place] DAILY PRN PRN Reason: Nasal congestion Guaifenesin (Mucinex La) 1,200 mg PO Q12 [facility] Last Admin: 05/03/18 21:47 Dose: 1,200 mg HCTZ/Losartan Potassium (Hyzaar 12.5 Mg-50 Mg) 1 tab PO DAILY [facility] Last Admin: 09/04/18 10:03 Dose: 1 tab Magnesium Hydroxide (Milk Of Magnesia) 30 ml PO DAILY PRN PRN Reason: Constipation Metoprolol Succinate (Toprol Xl) 50 mg PO Q12 [facility] Last Admin: 05/03/18 21:48 Dose: Not Given Pantoprazole Sodium (Protonix Ec Tab) 40 mg PO DAILY [facility] Last Admin: 05/03/18 10:03 Dose: Not Given Tamsulosin HCl (Flomax) 0.4 mg PO DAILY [facility] Last Admin: 05/03/18 10:04 Dose: Not Given Vitamin B Complex/Vit C/Folic Acid (Nephro-Jj) 1 tab PO DAILY [facility] Last Admin: 05/03/18 10:04 Dose: 1 tab - Labs Labs: 05/04/18 05:24 05/04/18 05:24 PT 11.7 Seconds (9.8-13.1) 05/03/18 20:15 INR 1.1 05/03/18 20:15 APTT 27.3 Seconds (25.6-37.1) 05/03/18 20:15 - Constitutional Appears: No Acute Distress - Eye Exam Eye Exam: EOMI - Respiratory Exam Respiratory Exam: Clear to Ausculation Bilateral, NORMAL BREATHING PATTERN - Cardiovascular Exam Cardiovascular Exam: +S1, +S2 - GI/Abdominal Exam GI & Abdominal Exam: Soft, Normal Bowel Sounds. absent: Tenderness - Neurological Exam Neurological Exam: Alert, Awake Assessment and Plan - Assessment and Plan (Free Text) Plan: 77 y/o M with a PMHx of ductal prostate cancer, ESRD and HTN was admitted due to gross hematuria Anemia with hematuria ESRD on HD pt was NPO overnight and taken for cystoscopy fulguration per Dr. Jeffries. Dr. hutchins. HD tts; blood transfusion as needed. consider f/u coagulopathy Dr. Armas on board Continue current management to isolate cause of hematuria f/u cbc, cmp, coag, fe/tibc/ferritin (eval for fe overload 2/2 transfusions) Case dw Dr. Noman Perry MD PGY2 <Hans Tineo - Last Filed: 05/06/18 13:45> Objective - Vital Signs/Intake and Output Vital Signs (last 24 hours): Temp Pulse Resp BP Pulse Ox 98.2 F 108 H 18 111/74 97 05/06/18 12:23 05/06/18 12:23 05/06/18 12:23 05/06/18 12:23 05/06/18 12:23 Intake and Output: 05/06/18 05/06/18 06:59 18:59 Intake Total 1100 120 Output Total 2500 1900 Balance -1400 -1780 - Medications Medications: Current Medications Acetaminophen (Tylenol 325mg Tab) 650 mg PO Q4 PRN PRN Reason: Fever >100.4 F Acetaminophen (Tylenol 325mg Tab) 650 mg PO Q4 PRN PRN Reason: Pain, Mild (1-3) Bacitracin (Bacitracin Oint) 1 applic TP DAILY [facility] Last Admin: 05/06/18 08:53 Dose: 1 applic Calcium Acetate (Phoslo) 667 mg PO TID [facility] Last Admin: 05/06/18 12:43 Dose: 667 mg Dapsone (Dapsone) 100 mg PO DAILY [facility] PRN Reason: Protocol Last Admin: 05/06/18 08:54 Dose: 100 mg Finasteride (Proscar) 5 mg PO DAILY [facility] Last Admin: 05/06/18 08:54 Dose: 5 mg Fluticasone Propionate (Flonase) 1 spr [place] DAILY PRN PRN Reason: Nasal congestion Aminocaproic Acid 10,000 mg/ (Dextrose) 500 mls @ 20.833 mls/hr IV .Q24H [facility] Stop: 05/09/18 11:44 Last Admin: 05/06/18 13:42 Dose: 20.833 mls/hr Metoprolol Succinate (Toprol Xl) 50 mg PO Q12 [facility] Last Admin: 05/06/18 08:55 Dose: 50 mg Pantoprazole Sodium (Protonix Ec Tab) 40 mg PO DAILY [facility] Last Admin: 05/06/18 08:54 Dose: 40 mg Tamsulosin HCl (Flomax) 0.4 mg PO DAILY [facility] Last Admin: 05/06/18 08:54 Dose: 0.4 mg Vitamin B Complex/Vit C/Folic Acid (Nephro-Jj) 1 tab PO DAILY [facility] Last Admin: 05/06/18 08:54 Dose: 1 tab - Labs Labs: 05/06/18 10:30 05/05/18 11:26 PT 13.5 Seconds (9.8-13.1) H 05/05/18 11:26 INR 1.2 05/05/18 11:26 APTT 28.4 Seconds (25.6-37.1) 05/05/18 11:26 Assessment and Plan - Assessment and Plan (Free Text) Plan: Patient was personally seen and examined by me in rounds with residents. Available labs and diagnostic data reviewed. Case, Patient's condition and management plan discussed with residents in rounds. Agree with resident's progress note. Plan: As ordered.
[2018-05-04] MEDS: Bacitracin OINT 15GM TP SCH (08:37)
[2018-05-04] MEDS: guaiFENesin 600 mg ER Tab PO SCH ×2 (08:38→21:12)
[2018-05-04] MEDS: HCTZ/Losartan 12.5/50 Tab PO SCH (08:38)
[2018-05-04] MEDS: Multivitamin Vitamin B Complex (Nephro-Vite) Tab PO SCH (08:39)
[2018-05-04] MEDS: Pantoprazole 40 mg EC Tab PO SCH (08:40)
[2018-05-04] MEDS: Metoprolol Succinate 50 mg XL Tab PO SCH ×2 (08:40→21:12)
[2018-05-04] MEDS ORDERED: Lactated Ringer's 500 ML IV ONE (09:00)
[2018-05-04] MEDS ORDERED: Aminocaproic Acid 5,000 MG in Dextrose 5% In Water 250 ML IV ONE ×3 (09:13→23:23)
[2018-05-04] MEDS ORDERED: SODIUM CHLORIDE 3,000 ML IR ONE ×4 (09:17→10:55)
[2018-05-04] MEDS ORDERED: Sodium Chloride 0.9% 500 ML IV ONE (09:17)
[2018-05-04] MEDS ORDERED: SODIUM CHLORIDE 1,000 ML IR ONE (09:17)
[2018-05-04] MEDS ORDERED: HYDROmorphone 0.5 mg/0.5 ml ISec IVP PRN (09:25)
--- NOTE | 2018-05-04 11:31 | CP.PCM.PN ---
Subjective - Date & Time of Evaluation Date of Evaluation: 05/04/18 Time of Evaluation: 11:28 - Subjective Subjective: Just came back from cystoscope Patient awake and conscious not in acute distress Gross hematuria persisted Vital signs stable Objective - Vital Signs/Intake and Output Vital Signs (last 24 hours): Temp Pulse Resp BP Pulse Ox 98.2 F 91 H 18 110/54 L 97 05/04/18 09:00 05/04/18 09:00 05/04/18 09:00 05/04/18 09:00 05/04/18 09:00 Intake and Output: 05/04/18 05/04/18 06:59 18:59 Intake Total 1665 525 Output Total 1300 Balance 365 525 - Medications Medications: Current Medications Acetaminophen (Tylenol 325mg Tab) 650 mg PO Q4 PRN PRN Reason: Fever >100.4 F Acetaminophen (Tylenol 325mg Tab) 650 mg PO Q4 PRN PRN Reason: Pain, Mild (1-3) Aminocaproic Acid (Aminocaproic Acid 500 Mg Tab) 1,000 mg PO Q8 [facility] Last Admin: 05/04/18 08:36 Dose: Not Given Bacitracin (Bacitracin Oint) 1 applic TP DAILY [facility] Last Admin: 05/04/18 08:37 Dose: Not Given Calcium Acetate (Phoslo) 667 mg PO TID [facility] Last Admin: 05/04/18 08:39 Dose: Not Given Dapsone (Dapsone) 100 mg PO DAILY [facility] PRN Reason: Protocol Last Admin: 05/04/18 08:37 Dose: Not Given Finasteride (Proscar) 5 mg PO DAILY [facility] Last Admin: 05/04/18 08:39 Dose: Not Given Fluticasone Propionate (Flonase) 1 spr [place] DAILY PRN PRN Reason: Nasal congestion Guaifenesin (Mucinex La) 1,200 mg PO Q12 [facility] Last Admin: 05/04/18 08:38 Dose: Not Given HCTZ/Losartan Potassium (Hyzaar 12.5 Mg-50 Mg) 1 tab PO DAILY [facility] Last Admin: 05/04/18 08:38 Dose: Not Given Hydromorphone HCl (Dilaudid) 0.5 mg IVP Q5M PRN PRN Reason: Pain, moderate (4-7) Stop: 05/04/18 11:27 Aminocaproic Acid 5,000 mg/ (Dextrose) 270 mls @ 22 mls/hr IV ONCE ONE Stop: 05/04/18 21:29 Magnesium Hydroxide (Milk Of Magnesia) 30 ml PO DAILY PRN PRN Reason: Constipation Metoprolol Succinate (Toprol Xl) 50 mg PO Q12 [facility] Last Admin: 05/04/18 08:40 Dose: Not Given Ondansetron HCl (Zofran Inj) 4 mg IVP ONCE PRN PRN Reason: Nausea/Vomiting Stop: 05/04/18 11:28 Pantoprazole Sodium (Protonix Ec Tab) 40 mg PO DAILY [facility] Last Admin: 05/04/18 08:40 Dose: Not Given Tamsulosin HCl (Flomax) 0.4 mg PO DAILY [facility] Last Admin: 05/04/18 08:37 Dose: Not Given Vitamin B Complex/Vit C/Folic Acid (Nephro-Jj) 1 tab PO DAILY [facility] Last Admin: 05/04/18 08:39 Dose: Not Given - Labs Labs: 05/04/18 05:24 05/04/18 05:24 PT 11.7 Seconds (9.8-13.1) 05/03/18 20:15 INR 1.1 05/03/18 20:15 APTT 27.3 Seconds (25.6-37.1) 05/03/18 20:15 - Constitutional Appears: No Acute Distress - ENT Exam ENT Exam: Mucous Membranes Moist - Neck Exam Neck Exam: absent: Lymphadenopathy - Respiratory Exam Respiratory Exam: NORMAL BREATHING PATTERN. 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 Blood transfusion as needed Hematology follow-up for the coagulopathy if any Continue hemodialysis TTS Status: Acute
--- NOTE | 2018-05-04 20:10 | OP ---
Copied To: Yessy Jeffries MD Attending MD: Yessy Jeffries MD PROCEDURE DATE: 05/04/2018 PREOPERATIVE DIAGNOSIS: Gross hematuria. POSTOPERATIVE DIAGNOSIS: Gross hematuria. PROCEDURES PERFORMED: Cystogram and fulguration. SURGEON: Yessy Jeffries MD DESCRIPTION OF PROCEDURE: The patient was placed on the operative table in dorsal lithotomy position. An area of the groin was then draped and prepped in the sterile manner and given general anesthesia. At this time, I removed an existing three-way Banks that was showing gross hematuria and I inserted resectoscope. Once inside the bladder, I saw areas of prior cauterization and just bleeding throughout. There was no significant clot formation noted. At this time, I used a rollerball to cauterize essentially the entire prostate and in spite of doing that every time I stopped, it appears to be rebleeding again. I resected some of the charred tissue to see perhaps get into assembly cleaner tissue and once I did that, I then went back to cauterization with the loop as well as with the rollerball, but at the end it still appears to be almost unchanged, but I did have the best effort that I could. There was no bladder bleeding. It was all from the prostatic urethra. I inserted a #22 three-way Banks catheter. I put into significant traction. It appears to be clearing, but I am not sure how long that will last. I estimated probably 100 mL blood loss during the procedure. Yessy Jeffries MD
--- NOTE | 2018-05-04 20:39 | CP.PCM.PN ---
Subjective - Date & Time of Evaluation Date of Evaluation: 05/04/18 Time of Evaluation: 20:00 - Subjective Subjective: No complaints, hematuria persists despite repeat cystoscopy with cautery Bleeding noted to be coming from prostatic urethra Objective - Vital Signs/Intake and Output Vital Signs (last 24 hours): Temp Pulse Resp BP Pulse Ox 99.7 F H 106 H 20 113/73 96 05/04/18 20:07 05/04/18 20:07 05/04/18 20:07 05/04/18 20:07 05/04/18 20:07 Intake and Output: 05/04/18 05/05/18 18:59 06:59 Intake Total 1219 Output Total 22680 Balance -9531 - Medications Medications: Current Medications Acetaminophen (Tylenol 325mg Tab) 650 mg PO Q4 PRN PRN Reason: Fever >100.4 F Acetaminophen (Tylenol 325mg Tab) 650 mg PO Q4 PRN PRN Reason: Pain, Mild (1-3) Aminocaproic Acid (Aminocaproic Acid 500 Mg Tab) 1,000 mg PO Q8 [facility] Last Admin: 05/04/18 17:29 Dose: Not Given Bacitracin (Bacitracin Oint) 1 applic TP DAILY [facility] Last Admin: 05/04/18 08:37 Dose: Not Given Calcium Acetate (Phoslo) 667 mg PO TID [facility] Last Admin: 05/04/18 17:29 Dose: 667 mg Dapsone (Dapsone) 100 mg PO DAILY [facility] PRN Reason: Protocol Last Admin: 05/04/18 08:37 Dose: Not Given Finasteride (Proscar) 5 mg PO DAILY [facility] Last Admin: 05/04/18 08:39 Dose: Not Given Fluticasone Propionate (Flonase) 1 spr [place] DAILY PRN PRN Reason: Nasal congestion Guaifenesin (Mucinex La) 1,200 mg PO Q12 [facility] Last Admin: 05/04/18 08:38 Dose: Not Given HCTZ/Losartan Potassium (Hyzaar 12.5 Mg-50 Mg) 1 tab PO DAILY [facility] Last Admin: 05/04/18 08:38 Dose: Not Given Aminocaproic Acid 5,000 mg/ (Dextrose) 270 mls @ 22 mls/hr IV ONCE ONE Stop: 05/04/18 21:29 Last Admin: 05/04/18 10:50 Dose: 0 mls Magnesium Hydroxide (Milk Of Magnesia) 30 ml PO DAILY PRN PRN Reason: Constipation Metoprolol Succinate (Toprol Xl) 50 mg PO Q12 [facility] Last Admin: 05/04/18 08:40 Dose: Not Given Pantoprazole Sodium (Protonix Ec Tab) 40 mg PO DAILY [facility] Last Admin: 05/04/18 08:40 Dose: Not Given Tamsulosin HCl (Flomax) 0.4 mg PO DAILY [facility] Last Admin: 05/04/18 08:37 Dose: Not Given Vitamin B Complex/Vit C/Folic Acid (Nephro-Jj) 1 tab PO DAILY [facility] Last Admin: 05/04/18 08:39 Dose: Not Given - Labs Labs: 05/04/18 05:24 05/04/18 05:24 PT 11.7 Seconds (9.8-13.1) 05/03/18 20:15 INR 1.1 05/03/18 20:15 APTT 27.3 Seconds (25.6-37.1) 05/03/18 20:15 - Head Exam Head Exam: ATRAUMATIC - Eye Exam Eye Exam: Normal appearance - ENT Exam ENT Exam: Mucous Membranes Dry - Respiratory Exam Respiratory Exam: NORMAL BREATHING PATTERN - Cardiovascular Exam Cardiovascular Exam: +S1, +S2 - GI/Abdominal Exam GI & Abdominal Exam: Normal Bowel Sounds Assessment and Plan (1) Hematuria Assessment & Plan: fibrinogen noted low; likely low from removal with prior plasma exchange ? compromised synthetic function of the liver plt dysfunction from uremia will give cryopercipitate transfusion in an attempt to replenish fibrinogen cont. Amicar and desmopressin if bleeding persists, will discuss with rad onc for radiation to prostate given prostatic urethra bleeding Status: Acute (2) Anemia Assessment & Plan: blood loss and anemia of CKD transfusion support and MENG per renal Status: Acute (3) Prostate cancer Assessment & Plan: will discuss for inpatient radiation if bleeding does not respond to cryopercipitate Status: Acute
--- NOTE | 2018-05-04 23:25 | CP.PCM.PN ---
Subjective - Date & Time of Evaluation Date of Evaluation: 05/04/18 Time of Evaluation: 23:19 - Subjective Subjective: UROLOGY PT was takern back to the [place] [facility] attempt to recauterize the prostatic urethra where his bleeding is originating from. Post op he continues to have gross hematuria not at the same intensity but still bot clear. Will increase the dose of amicar . if however does not improve will then suggest to transfer ,with appropiate contact,to [facility] for surgical emboliztion of prostate Objective - Vital Signs/Intake and Output Vital Signs (last 24 hours): Temp Pulse Resp BP Pulse Ox 99.7 F H 106 H 20 113/73 96 05/04/18 20:07 05/04/18 21:12 05/04/18 20:07 05/04/18 21:12 05/04/18 20:07 Intake and Output: 05/04/18 05/05/18 18:59 06:59 Intake Total 1219 Output Total 06615 Balance -9531 - Medications Medications: Current Medications Acetaminophen (Tylenol 325mg Tab) 650 mg PO Q4 PRN PRN Reason: Fever >100.4 F Acetaminophen (Tylenol 325mg Tab) 650 mg PO Q4 PRN PRN Reason: Pain, Mild (1-3) Aminocaproic Acid (Aminocaproic Acid 500 Mg Tab) 1,000 mg PO Q8 [facility] Last Admin: 05/04/18 17:29 Dose: Not Given Bacitracin (Bacitracin Oint) 1 applic TP DAILY [facility] Last Admin: 05/04/18 08:37 Dose: Not Given Calcium Acetate (Phoslo) 667 mg PO TID [facility] Last Admin: 05/04/18 17:29 Dose: 667 mg Dapsone (Dapsone) 100 mg PO DAILY [facility] PRN Reason: Protocol Last Admin: 05/04/18 08:37 Dose: Not Given Finasteride (Proscar) 5 mg PO DAILY [facility] Last Admin: 05/04/18 08:39 Dose: Not Given Fluticasone Propionate (Flonase) 1 spr [place] DAILY PRN PRN Reason: Nasal congestion Guaifenesin (Mucinex La) 1,200 mg PO Q12 [facility] Last Admin: 05/04/18 21:12 Dose: 1,200 mg HCTZ/Losartan Potassium (Hyzaar 12.5 Mg-50 Mg) 1 tab PO DAILY [facility] Last Admin: 05/04/18 08:38 Dose: Not Given Magnesium Hydroxide (Milk Of Magnesia) 30 ml PO DAILY PRN PRN Reason: Constipation Metoprolol Succinate (Toprol Xl) 50 mg PO Q12 [facility] Last Admin: 05/04/18 21:12 Dose: 50 mg Pantoprazole Sodium (Protonix Ec Tab) 40 mg PO DAILY [facility] Last Admin: 05/04/18 08:40 Dose: Not Given Tamsulosin HCl (Flomax) 0.4 mg PO DAILY [facility] Last Admin: 05/04/18 08:37 Dose: Not Given Vitamin B Complex/Vit C/Folic Acid (Nephro-Jj) 1 tab PO DAILY [facility] Last Admin: 05/04/18 08:39 Dose: Not Given - Labs Labs: 05/04/18 05:24 05/04/18 05:24 PT 11.7 Seconds (9.8-13.1) 05/03/18 20:15 INR 1.1 05/03/18 20:15 APTT 27.3 Seconds (25.6-37.1) 05/03/18 20:15
[2018-05-05] MEDS: Bacitracin OINT 15GM TP SCH (08:55)
[2018-05-05] MEDS: guaiFENesin 600 mg ER Tab PO SCH ×2 (08:55→09:04)
[2018-05-05] MEDS: HCTZ/Losartan 12.5/50 Tab PO SCH (08:56)
[2018-05-05] MEDS: Pantoprazole 40 mg EC Tab PO SCH (08:56)
[2018-05-05] MEDS: Multivitamin Vitamin B Complex (Nephro-Vite) Tab PO SCH (08:57)
[2018-05-05] MEDS: Metoprolol Succinate 50 mg XL Tab PO SCH ×2 (08:57→21:16)
--- NOTE | 2018-05-05 09:17 | CP.PCM.PN ---
<Don Perry - Last Filed: 05/05/18 13:33> Subjective - Date & Time of Evaluation Date of Evaluation: 05/05/18 Time of Evaluation: 08:00 - Subjective Subjective: Patient seen and examined at bedside with Dr. Tineo. No acute events overnight. Pt denies CP/SOB. Tolerating PO diet. Hematuria resolved. Objective - Vital Signs/Intake and Output Vital Signs (last 24 hours): Temp Pulse Resp BP Pulse Ox 98.9 F 121 H 18 99/62 L 97 05/05/18 07:55 05/05/18 08:57 05/05/18 07:55 05/05/18 08:57 05/05/18 07:55 Intake and Output: 05/05/18 05/05/18 06:59 18:59 Intake Total 628 Output Total 95996 Balance -80155 - Medications Medications: Current Medications Acetaminophen (Tylenol 325mg Tab) 650 mg PO Q4 PRN PRN Reason: Fever >100.4 F Acetaminophen (Tylenol 325mg Tab) 650 mg PO Q4 PRN PRN Reason: Pain, Mild (1-3) Aminocaproic Acid (Aminocaproic Acid 500 Mg Tab) 1,000 mg PO Q8 [facility] Last Admin: 05/05/18 08:54 Dose: Not Given Bacitracin (Bacitracin Oint) 1 applic TP DAILY [facility] Last Admin: 05/05/18 08:55 Dose: 1 applic Calcium Acetate (Phoslo) 667 mg PO TID [facility] Last Admin: 05/05/18 08:55 Dose: Not Given Dapsone (Dapsone) 100 mg PO DAILY [facility] PRN Reason: Protocol Last Admin: 05/05/18 08:56 Dose: Not Given Finasteride (Proscar) 5 mg PO DAILY [facility] Last Admin: 05/05/18 08:55 Dose: Not Given Fluticasone Propionate (Flonase) 1 spr [place] DAILY PRN PRN Reason: Nasal congestion Guaifenesin (Mucinex La) 1,200 mg PO Q12 [facility] Last Admin: 05/05/18 09:04 Dose: Not Given HCTZ/Losartan Potassium (Hyzaar 12.5 Mg-50 Mg) 1 tab PO DAILY [facility] Last Admin: 05/05/18 08:56 Dose: Not Given Aminocaproic Acid 5,000 mg/ (Dextrose) 270 mls @ 22 mls/hr IV ONCE ONE Stop: 05/05/18 11:39 Last Admin: 05/04/18 23:55 Dose: 22 mls/hr Magnesium Hydroxide (Milk Of Magnesia) 30 ml PO DAILY PRN PRN Reason: Constipation Metoprolol Succinate (Toprol Xl) 50 mg PO Q12 [facility] Last Admin: 05/05/18 08:57 Dose: Not Given Pantoprazole Sodium (Protonix Ec Tab) 40 mg PO DAILY [facility] Last Admin: 05/05/18 08:56 Dose: Not Given Tamsulosin HCl (Flomax) 0.4 mg PO DAILY [facility] Last Admin: 05/05/18 08:56 Dose: Not Given Vitamin B Complex/Vit C/Folic Acid (Nephro-Jj) 1 tab PO DAILY [facility] Last Admin: 05/05/18 08:57 Dose: Not Given - Labs Labs: 05/04/18 05:24 05/04/18 05:24 PT 11.7 Seconds (9.8-13.1) 05/03/18 20:15 INR 1.1 05/03/18 20:15 APTT 27.3 Seconds (25.6-37.1) 05/03/18 20:15 - Constitutional Appears: Well, No Acute Distress - Eye Exam Eye Exam: EOMI - ENT Exam ENT Exam: Mucous Membranes Moist - Respiratory Exam Respiratory Exam: Clear to Ausculation Bilateral, NORMAL BREATHING PATTERN. absent: Wheezes - Cardiovascular Exam Cardiovascular Exam: +S1, +S2 - GI/Abdominal Exam GI & Abdominal Exam: Soft, Normal Bowel Sounds. absent: Tenderness - Neurological Exam Neurological Exam: Alert, Awake, CN II-XII Intact, Oriented x3 - Psychiatric Exam Psychiatric exam: Normal Affect, Normal Mood Assessment and Plan - Assessment and Plan (Free Text) Plan: Prostatic urethral bleed: s/p cystoscopy and cauterization Visible hematuria significantly improved this am. Continue to monitor with f/u CBC Nephrology: Dr. Bernabe: d/c losartan and hctz; will require 1 additional unit PRBC with HD Heme: Dr. Armas: s/p 2 bags cryoprecipitate; possible radiation if bleeding continues case dw Dr. Noman Perry MD PGY2 <Hans Tineo - Last Filed: 05/06/18 13:51> Objective - Vital Signs/Intake and Output Vital Signs (last 24 hours): Temp Pulse Resp BP Pulse Ox 98.2 F 108 H 18 111/74 97 05/06/18 12:23 05/06/18 12:23 05/06/18 12:23 05/06/18 12:23 05/06/18 12:23 Intake and Output: 05/06/18 05/06/18 06:59 18:59 Intake Total 1100 120 Output Total 2500 1900 Balance -1400 -1780 - Medications Medications: Current Medications Acetaminophen (Tylenol 325mg Tab) 650 mg PO Q4 PRN PRN Reason: Fever >100.4 F Acetaminophen (Tylenol 325mg Tab) 650 mg PO Q4 PRN PRN Reason: Pain, Mild (1-3) Bacitracin (Bacitracin Oint) 1 applic TP DAILY [facility] Last Admin: 05/06/18 08:53 Dose: 1 applic Calcium Acetate (Phoslo) 667 mg PO TID [facility] Last Admin: 05/06/18 12:43 Dose: 667 mg Dapsone (Dapsone) 100 mg PO DAILY [facility] PRN Reason: Protocol Last Admin: 05/06/18 08:54 Dose: 100 mg Finasteride (Proscar) 5 mg PO DAILY [facility] Last Admin: 05/06/18 08:54 Dose: 5 mg Fluticasone Propionate (Flonase) 1 spr [facility] DAILY PRN PRN Reason: Nasal congestion Aminocaproic Acid 10,000 mg/ (Dextrose) 500 mls @ 20.833 mls/hr IV .Q24H [facility] Stop: 05/09/18 11:44 Last Admin: 05/06/18 13:42 Dose: 20.833 mls/hr Metoprolol Succinate (Toprol Xl) 50 mg PO Q12 [facility] Last Admin: 05/06/18 08:55 Dose: 50 mg Pantoprazole Sodium (Protonix Ec Tab) 40 mg PO DAILY [facility] Last Admin: 05/06/18 08:54 Dose: 40 mg Tamsulosin HCl (Flomax) 0.4 mg PO DAILY [facility] Last Admin: 05/06/18 08:54 Dose: 0.4 mg Vitamin B Complex/Vit C/Folic Acid (Nephro-Jj) 1 tab PO DAILY [facility] Last Admin: 05/06/18 08:54 Dose: 1 tab - Labs Labs: 05/06/18 10:30 05/05/18 11:26 PT 13.5 Seconds (9.8-13.1) H 05/05/18 11:26 INR 1.2 05/05/18 11:26 APTT 28.4 Seconds (25.6-37.1) 05/05/18 11:26 Assessment and Plan - Assessment and Plan (Free Text) Plan: Patient was personally seen and examined by me in rounds with residents. Available labs and diagnostic data reviewed. Case, Patient's condition and management plan discussed with residents in rounds. Agree with resident's progress note. Plan: As ordered.
--- NOTE | 2018-05-05 10:56 | CP.PCM.PN ---
Subjective - Date & Time of Evaluation Date of Evaluation: 05/05/18 Time of Evaluation: 10:55 - Subjective Subjective: patient sitting up other than conscious not in acute distress. No nausea no vomiting Objective - Vital Signs/Intake and Output Vital Signs (last 24 hours): Temp Pulse Resp BP Pulse Ox 98.9 F 121 H 18 99/62 L 97 05/05/18 07:55 05/05/18 08:57 05/05/18 07:55 05/05/18 08:57 05/05/18 07:55 Intake and Output: 05/05/18 05/05/18 06:59 18:59 Intake Total 628 Output Total 07999 Balance -24608 - Medications Medications: Current Medications Acetaminophen (Tylenol 325mg Tab) 650 mg PO Q4 PRN PRN Reason: Fever >100.4 F Acetaminophen (Tylenol 325mg Tab) 650 mg PO Q4 PRN PRN Reason: Pain, Mild (1-3) Aminocaproic Acid (Aminocaproic Acid 500 Mg Tab) 1,000 mg PO Q8 [facility] Last Admin: 05/05/18 08:54 Dose: Not Given Bacitracin (Bacitracin Oint) 1 applic TP DAILY [facility] Last Admin: 05/05/18 08:55 Dose: 1 applic Calcium Acetate (Phoslo) 667 mg PO TID [facility] Last Admin: 05/05/18 08:55 Dose: Not Given Dapsone (Dapsone) 100 mg PO DAILY [facility] PRN Reason: Protocol Last Admin: 05/05/18 08:56 Dose: Not Given Finasteride (Proscar) 5 mg PO DAILY [facility] Last Admin: 05/05/18 08:55 Dose: Not Given Fluticasone Propionate (Flonase) 1 spr [facility] DAILY PRN PRN Reason: Nasal congestion Aminocaproic Acid 5,000 mg/ (Dextrose) 270 mls @ 22 mls/hr IV ONCE ONE Stop: 05/05/18 11:39 Last Admin: 05/04/18 23:55 Dose: 22 mls/hr Metoprolol Succinate (Toprol Xl) 50 mg PO Q12 [facility] Last Admin: 05/05/18 08:57 Dose: Not Given Pantoprazole Sodium (Protonix Ec Tab) 40 mg PO DAILY [facility] Last Admin: 05/05/18 08:56 Dose: Not Given Tamsulosin HCl (Flomax) 0.4 mg PO DAILY [facility] Last Admin: 05/05/18 08:56 Dose: Not Given Vitamin B Complex/Vit C/Folic Acid (Nephro-Jj) 1 tab PO DAILY [facility] Last Admin: 05/05/18 08:57 Dose: Not Given - Labs Labs: 05/04/18 05:24 05/04/18 05:24 PT 11.7 Seconds (9.8-13.1) 05/03/18 20:15 INR 1.1 05/03/18 20:15 APTT 27.3 Seconds (25.6-37.1) 05/03/18 20:15 - Constitutional Appears: No Acute Distress - Eye Exam Eye Exam: Conjunctival injection - ENT Exam ENT Exam: Mucous Membranes Moist - Respiratory Exam Respiratory Exam: NORMAL BREATHING PATTERN. 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) hypotension Persistent the gross hematuria patient has Banks catheter status post cystoscopy Severe anemia Hyperphosphatemia Secondary hyperparathyroidism The plan discontinue losartan hydrochlorothiazide Patient need more blood transfusion suggest to give 1 unit of packed cells today on dialysis Gross hematuria appears to be improving Status: Acute
--- NOTE | 2018-05-05 11:19 | CP.PCM.PN ---
Subjective - Date & Time of Evaluation Date of Evaluation: 05/05/18 Time of Evaluation: 10:00 - Subjective Subjective: Seen on dialysis s/p 2 bags cryopercipitate hematuria appears improving Objective - Vital Signs/Intake and Output Vital Signs (last 24 hours): Temp Pulse Resp BP Pulse Ox 98.9 F 121 H 18 99/62 L 97 05/05/18 07:55 05/05/18 08:57 05/05/18 07:55 05/05/18 08:57 05/05/18 07:55 Intake and Output: 05/05/18 05/05/18 06:59 18:59 Intake Total 628 Output Total 96858 Balance -82692 - Medications Medications: Current Medications Acetaminophen (Tylenol 325mg Tab) 650 mg PO Q4 PRN PRN Reason: Fever >100.4 F Acetaminophen (Tylenol 325mg Tab) 650 mg PO Q4 PRN PRN Reason: Pain, Mild (1-3) Aminocaproic Acid (Aminocaproic Acid 500 Mg Tab) 1,000 mg PO Q8 [facility] Last Admin: 05/05/18 08:54 Dose: Not Given Bacitracin (Bacitracin Oint) 1 applic TP DAILY [facility] Last Admin: 05/05/18 08:55 Dose: 1 applic Calcium Acetate (Phoslo) 667 mg PO TID [facility] Last Admin: 05/05/18 08:55 Dose: Not Given Dapsone (Dapsone) 100 mg PO DAILY [facility] PRN Reason: Protocol Last Admin: 05/05/18 08:56 Dose: Not Given Finasteride (Proscar) 5 mg PO DAILY [facility] Last Admin: 05/05/18 08:55 Dose: Not Given Fluticasone Propionate (Flonase) 1 spr [place] DAILY PRN PRN Reason: Nasal congestion Aminocaproic Acid 5,000 mg/ (Dextrose) 270 mls @ 22 mls/hr IV ONCE ONE Stop: 05/05/18 11:39 Last Admin: 05/04/18 23:55 Dose: 22 mls/hr Metoprolol Succinate (Toprol Xl) 50 mg PO Q12 [facility] Last Admin: 05/05/18 08:57 Dose: Not Given Pantoprazole Sodium (Protonix Ec Tab) 40 mg PO DAILY [facility] Last Admin: 05/05/18 08:56 Dose: Not Given Tamsulosin HCl (Flomax) 0.4 mg PO DAILY [facility] Last Admin: 05/05/18 08:56 Dose: Not Given Vitamin B Complex/Vit C/Folic Acid (Nephro-Jj) 1 tab PO DAILY [facility] Last Admin: 05/05/18 08:57 Dose: Not Given - Labs Labs: 05/04/18 05:24 05/04/18 05:24 PT 11.7 Seconds (9.8-13.1) 05/03/18 20:15 INR 1.1 05/03/18 20:15 APTT 27.3 Seconds (25.6-37.1) 05/03/18 20:15 - Head Exam Head Exam: ATRAUMATIC - Eye Exam Eye Exam: Normal appearance - ENT Exam ENT Exam: Mucous Membranes Dry - Respiratory Exam Respiratory Exam: NORMAL BREATHING PATTERN - Cardiovascular Exam Cardiovascular Exam: +S1, +S2 - GI/Abdominal Exam GI & Abdominal Exam: Normal Bowel Sounds Assessment and Plan (1) Hematuria Assessment & Plan: prostatic urethra bleed s/p cystoscopy and cautery x 2; appreciate urology help on antifibrinolysis, s/p desmopressin s/p 2 bags cryopercipitate overnight for hypofibrinogenemia will discuss with rad onc about radiation if bleed persists Status: Acute (2) Anemia Assessment & Plan: acute bleeding 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
[2018-05-05 11:37] LABS: MEAN CELL VOLUME 91.3 fl (80.0-94.0); MEAN CORPUSCULAR HEMOGLOBIN 30.8 pg (27.0-31.0); MEAN CORPUSCULAR HGB CONC 33.7 g/dL (33.0-37.0); RBC 1.79 Mil/uL (4.40-5.90); RED CELL DISTRIBUTION WIDTH 15.6 % (11.5-14.5); WHITE BLOOD COUNT 14.3 K/uL (4.8-10.8)
[2018-05-05 11:39] LABS: HEMOGLOBIN 5.5 g/dL (12.0-18.0)
[2018-05-05 11:46] LABS: INR 1.2; PROTHROMBIN TIME 13.5 Seconds (9.8-13.1)
[2018-05-05 11:49] LABS: PARTIAL THROMBOPLASTIN TIME 28.4 Seconds (25.6-37.1)
[2018-05-05 11:53] LABS: ALBUMIN 1.9 g/dL (3.5-5.0); CALCIUM 7.1 mg/dL (8.4-10.2); IRON < 10 ug/dL (49-181)
[2018-05-05 12:02] LABS: TOTAL IRON BINDING CAPACITY 138 ug/dL (250-450)
[2018-05-05] MEDS ORDERED: WATER IV ONE (13:00)
[2018-05-05] MEDS ORDERED: DEXTROSE 5% IV ONE (13:00)
[2018-05-05] MEDS ORDERED: AMINOCAPROIC ACID IV ONE (13:00)
[2018-05-05 13:22] LABS: % IRON SATURATION 7.3 % (20-55)
[2018-05-05] MEDS ORDERED: Potassium Chloride 20 mEq ER Tab PO ONE (16:00)
--- NOTE | 2018-05-06 08:29 | CP.PCM.PN ---
<Don Perry - Last Filed: 05/06/18 09:30> Subjective - Date & Time of Evaluation Date of Evaluation: 05/06/18 Time of Evaluation: 07:30 - Subjective Subjective: pt seen and evaluated at bedside with Dr. Tineo Pt denies acute overnight events. tolerating po diet. Experiencing bowel movement. slight hematuria observed Objective - Vital Signs/Intake and Output Vital Signs (last 24 hours): Temp Pulse Resp BP Pulse Ox 98.2 F 96 H 18 101/53 L 97 05/06/18 08:13 05/06/18 08:13 05/06/18 08:13 05/06/18 08:13 05/06/18 08:13 Intake and Output: 05/06/18 05/06/18 06:59 18:59 Intake Total 1100 120 Output Total 2500 1900 Balance -1400 -1780 - Medications Medications: Current Medications Acetaminophen (Tylenol 325mg Tab) 650 mg PO Q4 PRN PRN Reason: Fever >100.4 F Acetaminophen (Tylenol 325mg Tab) 650 mg PO Q4 PRN PRN Reason: Pain, Mild (1-3) Bacitracin (Bacitracin Oint) 1 applic TP DAILY [facility] Last Admin: 05/05/18 08:55 Dose: 1 applic Calcium Acetate (Phoslo) 667 mg PO TID [facility] Last Admin: 05/05/18 17:24 Dose: 667 mg Dapsone (Dapsone) 100 mg PO DAILY [facility] PRN Reason: Protocol Last Admin: 05/05/18 08:56 Dose: Not Given Finasteride (Proscar) 5 mg PO DAILY [facility] Last Admin: 05/05/18 08:55 Dose: Not Given Fluticasone Propionate (Flonase) 1 spr [place] DAILY PRN PRN Reason: Nasal congestion Metoprolol Succinate (Toprol Xl) 50 mg PO Q12 [facility] Last Admin: 05/05/18 21:16 Dose: 50 mg Pantoprazole Sodium (Protonix Ec Tab) 40 mg PO DAILY [facility] Last Admin: 05/05/18 08:56 Dose: Not Given Tamsulosin HCl (Flomax) 0.4 mg PO DAILY [facility] Last Admin: 05/05/18 08:56 Dose: Not Given Vitamin B Complex/Vit C/Folic Acid (Nephro-Jj) 1 tab PO DAILY [facility] Last Admin: 05/05/18 08:57 Dose: Not Given - Labs Labs: 05/05/18 11:26 05/05/18 11:26 PT 13.5 Seconds (9.8-13.1) H 05/05/18 11:26 INR 1.2 05/05/18 11:26 APTT 28.4 Seconds (25.6-37.1) 05/05/18 11:26 - Constitutional Appears: Well, No Acute Distress - Eye Exam Eye Exam: EOMI - Respiratory Exam Respiratory Exam: Clear to Ausculation Bilateral, NORMAL BREATHING PATTERN. absent: Wheezes - Cardiovascular Exam Cardiovascular Exam: REGULAR RHYTHM, +S1, +S2 - GI/Abdominal Exam GI & Abdominal Exam: Soft, Normal Bowel Sounds. absent: Tenderness - Neurological Exam Neurological Exam: Alert, Awake, CN II-XII Intact, Oriented x3 - Psychiatric Exam Psychiatric exam: Normal Affect, Normal Mood Assessment and Plan - Assessment and Plan (Free Text) Plan: Continue with current treatment plan. Dr. Armas, Dr. Bernabe and Dr. Jeffries are on board. Further recommendations appreciated case dw Dr. Noman Perry MD PGY2 <Hans Tineo - Last Filed: 05/06/18 13:55> Objective - Vital Signs/Intake and Output Vital Signs (last 24 hours): Temp Pulse Resp BP Pulse Ox 98.2 F 108 H 18 111/74 97 05/06/18 12:23 05/06/18 12:23 05/06/18 12:23 05/06/18 12:23 05/06/18 12:23 Intake and Output: 05/06/18 05/06/18 06:59 18:59 Intake Total 1100 120 Output Total 2500 1900 Balance -1400 -1780 - Medications Medications: Current Medications Acetaminophen (Tylenol 325mg Tab) 650 mg PO Q4 PRN PRN Reason: Fever >100.4 F Acetaminophen (Tylenol 325mg Tab) 650 mg PO Q4 PRN PRN Reason: Pain, Mild (1-3) Bacitracin (Bacitracin Oint) 1 applic TP DAILY [facility] Last Admin: 05/06/18 08:53 Dose: 1 applic Calcium Acetate (Phoslo) 667 mg PO TID [facility] Last Admin: 05/06/18 12:43 Dose: 667 mg Dapsone (Dapsone) 100 mg PO DAILY [facility] PRN Reason: Protocol Last Admin: 05/06/18 08:54 Dose: 100 mg Finasteride (Proscar) 5 mg PO DAILY [facility] Last Admin: 05/06/18 08:54 Dose: 5 mg Fluticasone Propionate (Flonase) 1 spr [place] DAILY PRN PRN Reason: Nasal congestion Aminocaproic Acid 10,000 mg/ (Dextrose) 500 mls @ 20.833 mls/hr IV .Q24H [facility] Stop: 05/09/18 11:44 Last Admin: 05/06/18 13:42 Dose: 20.833 mls/hr Metoprolol Succinate (Toprol Xl) 50 mg PO Q12 [facility] Last Admin: 05/06/18 08:55 Dose: 50 mg Pantoprazole Sodium (Protonix Ec Tab) 40 mg PO DAILY [facility] Last Admin: 05/06/18 08:54 Dose: 40 mg Tamsulosin HCl (Flomax) 0.4 mg PO DAILY [facility] Last Admin: 05/06/18 08:54 Dose: 0.4 mg Vitamin B Complex/Vit C/Folic Acid (Nephro-Jj) 1 tab PO DAILY [facility] Last Admin: 05/06/18 08:54 Dose: 1 tab - Labs Labs: 05/06/18 10:30 05/05/18 11:26 PT 13.5 Seconds (9.8-13.1) H 05/05/18 11:26 INR 1.2 05/05/18 11:26 APTT 28.4 Seconds (25.6-37.1) 05/05/18 11:26 Assessment and Plan - Assessment and Plan (Free Text) Plan: Patient was personally seen and examined by me in rounds with residents. Available labs and diagnostic data reviewed. Case, Patient's condition and management plan discussed with residents in rounds. Agree with resident's progress note. Plan: As ordered.
[2018-05-06] MEDS: Bacitracin OINT 15GM TP SCH (08:53)
[2018-05-06] MEDS: Pantoprazole 40 mg EC Tab PO SCH (08:54)
[2018-05-06] MEDS: Multivitamin Vitamin B Complex (Nephro-Vite) Tab PO SCH (08:54)
[2018-05-06] MEDS: Metoprolol Succinate 50 mg XL Tab PO SCH ×2 (08:55→20:55)
[2018-05-06 10:58] LABS: HEMOGLOBIN 6.8 g/dL (12.0-18.0); MEAN CELL VOLUME 93.5 fl (80.0-94.0); MEAN CORPUSCULAR HGB CONC 34.2 g/dL (33.0-37.0); RBC 2.14 Mil/uL (4.40-5.90); RED CELL DISTRIBUTION WIDTH 15.2 % (11.5-14.5)
[2018-05-06] MEDS ORDERED: Phytonadione 10 mg/ml Inj (Adult) IV ONE (11:32)
[2018-05-06] MEDS ORDERED: Desmopressin 4 mcg/ml Inj (10 ml) IV ONE (11:33)
--- NOTE | 2018-05-06 11:53 | CP.PCM.PN ---
Subjective - Date & Time of Evaluation Date of Evaluation: 05/06/18 Time of Evaluation: 11:53 - Subjective Subjective: patient conscious and alert sitting up not in acute distress appears to be comfortable Objective - Vital Signs/Intake and Output Vital Signs (last 24 hours): Temp Pulse Resp BP Pulse Ox 98.2 F 96 H 18 101/53 L 97 05/06/18 08:13 05/06/18 08:55 05/06/18 08:13 05/06/18 08:55 05/06/18 08:13 Intake and Output: 05/06/18 05/06/18 06:59 18:59 Intake Total 1100 120 Output Total 2500 1900 Balance -1400 -1780 - Medications Medications: Current Medications Acetaminophen (Tylenol 325mg Tab) 650 mg PO Q4 PRN PRN Reason: Fever >100.4 F Acetaminophen (Tylenol 325mg Tab) 650 mg PO Q4 PRN PRN Reason: Pain, Mild (1-3) Bacitracin (Bacitracin Oint) 1 applic TP DAILY [facility] Last Admin: 05/06/18 08:53 Dose: 1 applic Calcium Acetate (Phoslo) 667 mg PO TID [facility] Last Admin: 05/06/18 08:54 Dose: 667 mg Dapsone (Dapsone) 100 mg PO DAILY [facility] PRN Reason: Protocol Last Admin: 05/06/18 08:54 Dose: 100 mg Finasteride (Proscar) 5 mg PO DAILY [facility] Last Admin: 05/06/18 08:54 Dose: 5 mg Fluticasone Propionate (Flonase) 1 spr [place] DAILY PRN PRN Reason: Nasal congestion Aminocaproic Acid 10,000 mg/ (Dextrose) 500 mls @ 20.833 mls/hr IV .Q24H [facility] Stop: 05/09/18 11:44 Desmopressin Acetate 20 mcg/ (Sodium Chloride) 55 mls @ 110 mls/hr IV ONCE ONE Stop: 05/06/18 12:29 Phytonadione 10 mg/ Sodium (Chloride) 51 mls @ 102 mls/hr IV ONCE ONE Stop: 05/06/18 12:29 Metoprolol Succinate (Toprol Xl) 50 mg PO Q12 [facility] Last Admin: 05/06/18 08:55 Dose: 50 mg Pantoprazole Sodium (Protonix Ec Tab) 40 mg PO DAILY [facility] Last Admin: 05/06/18 08:54 Dose: 40 mg Tamsulosin HCl (Flomax) 0.4 mg PO DAILY [facility] Last Admin: 05/06/18 08:54 Dose: 0.4 mg Vitamin B Complex/Vit C/Folic Acid (Nephro-Jj) 1 tab PO DAILY [facility] Last Admin: 05/06/18 08:54 Dose: 1 tab - Labs Labs: 05/06/18 10:30 05/05/18 11:26 PT 13.5 Seconds (9.8-13.1) H 05/05/18 11:26 INR 1.2 05/05/18 11:26 APTT 28.4 Seconds (25.6-37.1) 05/05/18 11:26 - Constitutional Appears: No Acute Distress - Eye Exam Eye Exam: Conjunctival injection - ENT Exam ENT Exam: Mucous Membranes Moist - Neck Exam Neck Exam: absent: Lymphadenopathy - Respiratory Exam Respiratory Exam: absent: Chest Wall Tenderness - Cardiovascular Exam Cardiovascular Exam: absent: Gallop, JVD, Rubs - GI/Abdominal Exam GI & Abdominal Exam: Soft, Normal Bowel Sounds - Extremities Exam Extremities Exam: absent: Calf Tenderness - Back Exam Back Exam: absent: CVA tenderness (L), CVA tenderness (R) - Neurological Exam Neurological Exam: Alert - Psychiatric Exam Psychiatric exam: Normal Affect - Skin Skin Exam: absent: Cyanosis Assessment and Plan (1) ESRD (end stage renal disease) on dialysis Assessment & Plan: 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) gross hematuria which is significantly improving severe anemia The plan patient needs more blood transfusion perhaps 1 unit today and 1 unit tomorrow on dialysis continue the rest of the medication also as per urology with bladder irrigation status post cystoscopy Status: Acute
[2018-05-06] MEDS ORDERED: Desmopressin 20 MCG in Sodium Chloride 0.9% 50 ML IV ONE (12:00)
[2018-05-06] MEDS ORDERED: Phytonadione 10 MG in Sodium Chloride 0.9% 50 ML IV ONE (12:00)
[2018-05-06] MEDS: WATER IV SCH (13:42)
[2018-05-06] MEDS: AMINOCAPROIC ACID IV SCH (13:42)
[2018-05-06] MEDS: DEXTROSE 5% IV SCH (13:42)
--- NOTE | 2018-05-06 21:06 | CP.PCM.PN ---
Subjective - Date & Time of Evaluation Date of Evaluation: 05/06/18 Time of Evaluation: 21:01 - Subjective Subjective: UROLOGY Frst time in a long time urine is completely clear. CBI is very slow will plan to D/C completely in am . Tereafter plan to remove hadley and then plan to start LUPRON for path dx of resected prostate tissue Objective - Vital Signs/Intake and Output Vital Signs (last 24 hours): Temp Pulse Resp BP Pulse Ox 98.2 F 86 18 100/58 L 94 L 05/06/18 19:12 05/06/18 20:55 05/06/18 19:12 05/06/18 20:55 05/06/18 15:50 Intake and Output: 05/06/18 05/07/18 18:59 06:59 Intake Total 383 Output Total 1900 Balance -1517 - Medications Medications: Current Medications Acetaminophen (Tylenol 325mg Tab) 650 mg PO Q4 PRN PRN Reason: Fever >100.4 F Acetaminophen (Tylenol 325mg Tab) 650 mg PO Q4 PRN PRN Reason: Pain, Mild (1-3) Bacitracin (Bacitracin Oint) 1 applic TP DAILY [facility] Last Admin: 05/06/18 08:53 Dose: 1 applic Calcium Acetate (Phoslo) 667 mg PO TID [facility] Last Admin: 05/06/18 16:11 Dose: 667 mg Dapsone (Dapsone) 100 mg PO DAILY [facility] PRN Reason: Protocol Last Admin: 05/06/18 08:54 Dose: 100 mg Finasteride (Proscar) 5 mg PO DAILY [facility] Last Admin: 05/06/18 08:54 Dose: 5 mg Fluticasone Propionate (Flonase) 1 spr [place] DAILY PRN PRN Reason: Nasal congestion Aminocaproic Acid 10,000 mg/ (Dextrose) 500 mls @ 20.833 mls/hr IV .Q24H [facility] Stop: 05/09/18 11:44 Last Admin: 05/06/18 13:42 Dose: 20.833 mls/hr Metoprolol Succinate (Toprol Xl) 50 mg PO Q12 [facility] Last Admin: 05/06/18 20:55 Dose: 50 mg Pantoprazole Sodium (Protonix Ec Tab) 40 mg PO DAILY [facility] Last Admin: 05/06/18 08:54 Dose: 40 mg Tamsulosin HCl (Flomax) 0.4 mg PO DAILY [facility] Last Admin: 05/06/18 08:54 Dose: 0.4 mg Vitamin B Complex/Vit C/Folic Acid (Nephro-Jj) 1 tab PO DAILY [facility] Last Admin: 05/06/18 08:54 Dose: 1 tab - Labs Labs: 05/06/18 10:30 05/05/18 11:26 PT 13.5 Seconds (9.8-13.1) H 05/05/18 11:26 INR 1.2 05/05/18 11:26 APTT 28.4 Seconds (25.6-37.1) 05/05/18 11:26
[2018-05-07 07:18] LABS: HEMOGLOBIN 8.2 g/dL (12.0-18.0); MEAN CELL VOLUME 92.1 fl (80.0-94.0); MEAN CORPUSCULAR HEMOGLOBIN 32.1 pg (27.0-31.0); MEAN CORPUSCULAR HGB CONC 34.9 g/dL (33.0-37.0); RBC 2.56 Mil/uL (4.40-5.90); RED CELL DISTRIBUTION WIDTH 15.2 % (11.5-14.5); WHITE BLOOD COUNT 10.2 K/uL (4.8-10.8)
[2018-05-07 07:25] LABS: CALCIUM 7.7 mg/dL (8.4-10.2)
[2018-05-07] MEDS: Bacitracin OINT 15GM TP SCH (09:10)
[2018-05-07] MEDS: Multivitamin Vitamin B Complex (Nephro-Vite) Tab PO SCH (09:15)
[2018-05-07] MEDS: Pantoprazole 40 mg EC Tab PO SCH (09:16)
[2018-05-07] MEDS: Metoprolol Succinate 50 mg XL Tab PO SCH ×2 (09:17→21:54)
--- NOTE | 2018-05-07 11:18 | PN ---
DATE: 05/07/2018 SUBJECTIVE: The patient seen and examined. Interim events noted. Consults noted and appreciated. Urology intervention noted and appreciated and followup appreciated. The patient remains in progressive care unit, on telemetry monitoring. The patient is sleeping, arousable, feels okay. Denies any pain. No chest pain. No shortness of breath. No pelvic pain. PHYSICAL EXAMINATION: GENERAL: The patient is in no acute distress. VITAL SIGNS: Stable. HEART: S1 and S2, normal and regular. LUNGS: Good bilateral air exchange. ABDOMEN: Soft and nontender. No organomegaly. No fluid. Bowel sounds are pleasant and normal. EXTREMITIES: No edema. No calf swelling. No tenderness. No acute ischemia. CONSULTANT INTERN: Exam is essentially unchanged. The patient has indwelling bladder catheter and draining very clearly without any evidence of gross hematuria. DIAGNOSTIC DATA: Available diagnostic data reviewed. ASSESSMENT AND PLAN: Overall, the patient's general medical condition is stable. seems to have been stopped. Plan as ordered. Case and plan discussed with the patient. Hans Tineo MD
[2018-05-07] MEDS: Ergocalciferol 50,000 Intl Units Cap PO SCH (11:41)
[2018-05-07] MEDS: AMINOCAPROIC ACID IV SCH (15:53)
[2018-05-07] MEDS: WATER IV SCH (15:53)
[2018-05-07] MEDS: DEXTROSE 5% IV SCH (15:53)
--- NOTE | 2018-05-07 18:07 | CP.PCM.PN ---
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 s/p plasmapharesis 4 session s/p pulse steroids and rituxan (04/05/18 and 04/21) was on 60 mg/day prednisone but not now ?? and also on PCP prophylaxis as dapsone Hypertension control with meds as ordered. Patient not on ACEI/ARB due to QUINTON Monitor Input/Output, daily weights and renal function with basic metabolic panel heme input Re: use of epogen in view of his cancer PRBC as needed for anemia. started IV iron continue with weekly Vit D on phoslo Subjective: seen and examined no complaints denies CP/SOB no nasuea/vomiting Physical Examination: General Appearance: Comfortable, in no acute respiratory distress, co-operative Vitals reviewed and noted as below Head; Atraumatic, normocephalic ENT: no ulcers no thrush. Tongue is midline. Oropharynx: no rash or ulcers. EYES: Pupils are equal, round and reactive to light accommodation. Eye muscles and extraocular movement intact. Sclera is anicteric. Neck; supple no lymphadenopathy, no thyromegaly or bruit Lungs: Normal respiratory rate/effort. Breath sounds bilateral decreased at bases Heart: Normal rate. s1s2 normal. No rub or gallop. Extremities: trace edema. No varicose veins Neurological: Patient is alert, awake and oriented to person, place and time. No focal deficit. Strength bilateral appropriate and equal Skin: Warm and dry. Normal turgor. No rash. Palpitation: Normal elasticity for age Abdomen: Abdomen is soft. Bowel sounds +. There is no abdominal tenderness, no guarding/rigidity no organomegaly Psych: lackl insight and normal affect/mood MSK: no joint tenderness or swelling. Digits and nails normal, no deformity : kidney or bladder not palpable. has hadley access: tunnelled cathether Labs/imaging reviewed. Past medical history, past surgical history, family history, social history, allergy reviewed and noted as below Family hx: no hx of CKD. Rest non-contributory Objective - Vital Signs/Intake and Output Vital Signs (last 24 hours): Temp Pulse Resp BP Pulse Ox 98.4 F 102 H 20 111/66 97 05/07/18 15:59 05/07/18 15:59 05/07/18 15:59 05/07/18 15:59 05/07/18 15:59 Intake and Output: 05/07/18 05/07/18 06:59 18:59 Intake Total 590 Output Total 9450 Balance -8860 - Medications Medications: Current Medications Acetaminophen (Tylenol 325mg Tab) 650 mg PO Q4 PRN PRN Reason: Fever >100.4 F Acetaminophen (Tylenol 325mg Tab) 650 mg PO Q4 PRN PRN Reason: Pain, Mild (1-3) Bacitracin (Bacitracin Oint) 1 applic TP DAILY [facility] Last Admin: 05/07/18 09:10 Dose: 1 applic Calcium Acetate (Phoslo) 667 mg PO TID [facility] Last Admin: 05/07/18 16:47 Dose: 667 mg Dapsone (Dapsone) 100 mg PO DAILY [facility] PRN Reason: Protocol Last Admin: 05/07/18 09:15 Dose: 100 mg Ergocalciferol (Drisdol 50,000 Intl Units Cap) 1 cap PO Q7D [facility] Last Admin: 05/07/18 11:41 Dose: 1 cap Finasteride (Proscar) 5 mg PO DAILY [facility] Last Admin: 05/07/18 09:16 Dose: 5 mg Fluticasone Propionate (Flonase) 1 spr [facility] DAILY PRN PRN Reason: Nasal congestion Aminocaproic Acid 10,000 mg/ (Dextrose) 500 mls @ 20.833 mls/hr IV .Q24H [facility] Stop: 05/09/18 11:44 Last Admin: 05/07/18 15:53 Dose: 20.833 mls/hr Iron Sucrose 200 mg/ Sodium (Chloride) 110 mls @ 110 mls/hr IVPB DAILY [facility] Stop: 05/11/18 09:59 Last Admin: 09/08/18 11:41 Dose: 110 mls/hr Metoprolol Succinate (Toprol Xl) 50 mg PO Q12 [facility] Last Admin: 05/07/18 09:17 Dose: 50 mg Pantoprazole Sodium (Protonix Ec Tab) 40 mg PO DAILY [facility] Last Admin: 05/07/18 09:16 Dose: 40 mg Tamsulosin HCl (Flomax) 0.4 mg PO DAILY [facility] Last Admin: 05/07/18 09:15 Dose: 0.4 mg Vitamin B Complex/Vit C/Folic Acid (Nephro-Jj) 1 tab PO DAILY [facility] Last Admin: 05/07/18 09:15 Dose: 1 tab - Labs Labs: 05/07/18 06:00 05/07/18 06:00 PT 13.5 Seconds (9.8-13.1) H 05/05/18 11:26 INR 1.2 05/05/18 11:26 APTT 28.4 Seconds (25.6-37.1) 05/05/18 11:26
[2018-05-08 05:41] LABS: HEMOGLOBIN 8.3 g/dL (12.0-18.0); MEAN CELL VOLUME 92.4 fl (80.0-94.0); MEAN CORPUSCULAR HEMOGLOBIN 31.3 pg (27.0-31.0); MEAN CORPUSCULAR HGB CONC 33.9 g/dL (33.0-37.0); RBC 2.65 Mil/uL (4.40-5.90); RED CELL DISTRIBUTION WIDTH 15.3 % (11.5-14.5); WHITE BLOOD COUNT 9.3 K/uL (4.8-10.8)
[2018-05-08 06:07] LABS: ALB/GLOB RATIO 0.9 (1.0-2.1); CALCIUM 7.6 mg/dL (8.4-10.2)
[2018-05-08] MEDS: Bacitracin OINT 15GM TP SCH (08:54)
[2018-05-08] MEDS: Pantoprazole 40 mg EC Tab PO SCH (08:54)
[2018-05-08] MEDS: Metoprolol Succinate 50 mg XL Tab PO SCH ×3 (08:54→21:25)
[2018-05-08] MEDS: Multivitamin Vitamin B Complex (Nephro-Vite) Tab PO SCH (08:55)
[2018-05-08] MEDS ORDERED: Potassium Chloride 20 mEq ER Tab PO ONE (09:52)
--- NOTE | 2018-05-08 12:27 | CP.PCM.PN ---
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 s/p plasmapharesis 4 session s/p pulse steroids and rituxan (04/05/18 and 04/21) was on 60 mg/day prednisone but not now ?? reason (will d/w Dr Bernabe) and also on PCP prophylaxis as dapsone Hypertension control with meds as ordered. Patient not on ACEI/ARB due to recent QUINTON Monitor Input/Output, daily weights and renal function with basic metabolic panel heme input Re: use of epogen in view of his prostate cancer PRBC as needed for anemia. started IV iron continue with weekly Vit D on phoslo as binders gave a dose of KCL today thanks for consult. Please call if any Qs Subjective: seen and examined no complaints denies CP/SOB no nasuea/vomiting Physical Examination: General Appearance: Comfortable, in no acute respiratory distress, co-operative Vitals reviewed and noted as below Head; Atraumatic, normocephalic ENT: no ulcers no thrush. Tongue is midline. Oropharynx: no rash or ulcers. EYES: Pupils are equal, round and reactive to light accommodation. Eye muscles and extraocular movement intact. Sclera is anicteric. Neck; supple no lymphadenopathy, no thyromegaly or bruit Lungs: Normal respiratory rate/effort. Breath sounds bilateral decreased at bases Heart: Normal rate. s1s2 normal. No rub or gallop. Extremities: 2+ edema. No varicose veins Neurological: Patient is alert, awake and oriented to person, place and time. No focal deficit. Strength bilateral appropriate and equal Skin: Warm and dry. Normal turgor. No rash. Palpitation: Normal elasticity for age Abdomen: Abdomen is soft. Bowel sounds +. There is no abdominal tenderness, no guarding/rigidity no organomegaly Psych: lackl insight and normal affect/mood MSK: no joint tenderness or swelling. Digits and nails normal, no deformity : kidney or bladder not palpable. has hadley access: tunnelled cathether Labs/imaging reviewed. Past medical history, past surgical history, family history, social history, allergy reviewed and noted as below Family hx: no hx of CKD. Rest non-contributory Objective - Vital Signs/Intake and Output Vital Signs (last 24 hours): Temp Pulse Resp BP Pulse Ox 97.9 F 93 H 18 125/77 96 05/08/18 12:15 05/08/18 12:15 05/08/18 12:15 05/08/18 12:15 05/08/18 12:15 Intake and Output: 05/08/18 05/08/18 06:59 18:59 Intake Total 410 Output Total 200 Balance 210 - Medications Medications: Current Medications Acetaminophen (Tylenol 325mg Tab) 650 mg PO Q4 PRN PRN Reason: Fever >100.4 F Acetaminophen (Tylenol 325mg Tab) 650 mg PO Q4 PRN PRN Reason: Pain, Mild (1-3) Bacitracin (Bacitracin Oint) 1 applic TP DAILY [facility] Last Admin: 05/08/18 08:54 Dose: 1 applic Calcium Acetate (Phoslo) 667 mg PO TID [facility] Last Admin: 05/08/18 08:54 Dose: 667 mg Ergocalciferol (Drisdol 50,000 Intl Units Cap) 1 cap PO Q7D [facility] Last Admin: 05/07/18 11:41 Dose: 1 cap Finasteride (Proscar) 5 mg PO DAILY [facility] Last Admin: 05/08/18 08:54 Dose: 5 mg Fluticasone Propionate (Flonase) 1 spr [facility] DAILY PRN PRN Reason: Nasal congestion Aminocaproic Acid 10,000 mg/ (Dextrose) 500 mls @ 20.833 mls/hr IV .Q24H [facility] Stop: 05/09/18 11:44 Last Admin: 05/07/18 15:53 Dose: 20.833 mls/hr Iron Sucrose 200 mg/ Sodium (Chloride) 110 mls @ 110 mls/hr IVPB DAILY [facility] Stop: 05/11/18 09:59 Last Admin: 05/08/18 08:54 Dose: 110 mls/hr Metoprolol Succinate (Toprol Xl) 50 mg PO Q12 [facility] Last Admin: 05/08/18 08:54 Dose: 50 mg Pantoprazole Sodium (Protonix Ec Tab) 40 mg PO DAILY [facility] Last Admin: 05/08/18 08:54 Dose: 40 mg Tamsulosin HCl (Flomax) 0.4 mg PO DAILY [facility] Last Admin: 05/08/18 08:55 Dose: 0.4 mg Vitamin B Complex/Vit C/Folic Acid (Nephro-Jj) 1 tab PO DAILY [facility] Last Admin: 05/08/18 08:55 Dose: 1 tab - Labs Labs: 05/08/18 04:50 05/08/18 04:50 PT 13.5 Seconds (9.8-13.1) H 05/05/18 11:26 INR 1.2 05/05/18 11:26 APTT 28.4 Seconds (25.6-37.1) 05/05/18 11:26
[2018-05-08] MEDS: AMINOCAPROIC ACID IV SCH (13:08)
[2018-05-08] MEDS: DEXTROSE 5% IV SCH (13:08)
[2018-05-08] MEDS: WATER IV SCH (13:08)
--- NOTE | 2018-05-08 13:30 | CP.PCM.PN ---
Subjective - Date & Time of Evaluation Date of Evaluation: 05/08/18 Time of Evaluation: 13:29 - Subjective Subjective: Urology.. Pt is now 24 hrs off CBI and urine dark mark. Will plan to D/C hadley in AM Wednesday Objective - Vital Signs/Intake and Output Vital Signs (last 24 hours): Temp Pulse Resp BP Pulse Ox 97.9 F 93 H 18 125/77 96 05/08/18 12:15 05/08/18 12:15 05/08/18 12:15 05/08/18 12:15 05/08/18 12:15 Intake and Output: 05/08/18 05/08/18 06:59 18:59 Intake Total 410 Output Total 200 Balance 210 - Medications Medications: Current Medications Acetaminophen (Tylenol 325mg Tab) 650 mg PO Q4 PRN PRN Reason: Fever >100.4 F Acetaminophen (Tylenol 325mg Tab) 650 mg PO Q4 PRN PRN Reason: Pain, Mild (1-3) Bacitracin (Bacitracin Oint) 1 applic TP DAILY [facility] Last Admin: 05/08/18 08:54 Dose: 1 applic Calcium Acetate (Phoslo) 667 mg PO TID [facility] Last Admin: 05/08/18 13:09 Dose: 667 mg Ergocalciferol (Drisdol 50,000 Intl Units Cap) 1 cap PO Q7D [facility] Last Admin: 05/07/18 11:41 Dose: 1 cap Finasteride (Proscar) 5 mg PO DAILY [facility] Last Admin: 05/08/18 08:54 Dose: 5 mg Fluticasone Propionate (Flonase) 1 spr [place] DAILY PRN PRN Reason: Nasal congestion Aminocaproic Acid 10,000 mg/ (Dextrose) 500 mls @ 20.833 mls/hr IV .Q24H [facility] Stop: 05/09/18 11:44 Last Admin: 05/08/18 13:08 Dose: 20.833 mls/hr Iron Sucrose 200 mg/ Sodium (Chloride) 110 mls @ 110 mls/hr IVPB DAILY [facility] Stop: 05/11/18 09:59 Last Admin: 05/08/18 08:54 Dose: 110 mls/hr Metoprolol Succinate (Toprol Xl) 50 mg PO Q12 [facility] Last Admin: 05/08/18 08:54 Dose: 50 mg Pantoprazole Sodium (Protonix Ec Tab) 40 mg PO DAILY [facility] Last Admin: 05/08/18 08:54 Dose: 40 mg Tamsulosin HCl (Flomax) 0.4 mg PO DAILY [facility] Last Admin: 05/08/18 08:55 Dose: 0.4 mg Vitamin B Complex/Vit C/Folic Acid (Nephro-Jj) 1 tab PO DAILY [facility] Last Admin: 05/08/18 08:55 Dose: 1 tab - Labs Labs: 05/08/18 04:50 05/08/18 04:50 PT 13.5 Seconds (9.8-13.1) H 05/05/18 11:26 INR 1.2 05/05/18 11:26 APTT 28.4 Seconds (25.6-37.1) 05/05/18 11:26
--- NOTE | 2018-05-08 21:03 | PN ---
DATE: 05/08/2018 SUBJECTIVE: The patient seen and examined. Interim events noted. Consults noted and appreciated. Urology followup and intervention noted and appreciated. Bladder irrigation was stopped. The patient feels okay. Denies any specific complaint of chest pain or shortness of breath or any other urinary symptoms. PHYSICAL EXAMINATION: GENERAL: The patient is in no acute distress. VITAL SIGNS: Stable. HEART: S1 and S2, normal and regular. LUNGS: Good bilateral air exchange. ABDOMEN: Soft and nontender. EXTREMITIES: No edema. No calf swelling. No tenderness. No acute ischemia. 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 DIAGNOSTIC DATA: Available diagnostic data reviewed. Banks catheter still has some bloody urine. ASSESSMENT AND PLAN: Overall, the patient's general medical condition is stable. Plan as ordered. Hans Tineo MD
--- NOTE | 2018-05-09 00:12 | CP.PCM.PN ---
Subjective - Date & Time of Evaluation Date of Evaluation: 05/06/18 Time of Evaluation: 12:00 - Subjective Subjective: No complaints hematuria resolving Objective - Vital Signs/Intake and Output Vital Signs (last 24 hours): Temp Pulse Resp BP Pulse Ox 97.9 F 78 18 118/73 95 05/08/18 23:34 05/08/18 23:34 05/08/18 23:34 05/08/18 23:34 05/08/18 23:34 - Medications Medications: Current Medications Acetaminophen (Tylenol 325mg Tab) 650 mg PO Q4 PRN PRN Reason: Fever >100.4 F Acetaminophen (Tylenol 325mg Tab) 650 mg PO Q4 PRN PRN Reason: Pain, Mild (1-3) Bacitracin (Bacitracin Oint) 1 applic TP DAILY [facility] Last Admin: 05/08/18 08:54 Dose: 1 applic Calcium Acetate (Phoslo) 667 mg PO TID [facility] Last Admin: 05/08/18 16:54 Dose: Not Given Ergocalciferol (Drisdol 50,000 Intl Units Cap) 1 cap PO Q7D [facility] Last Admin: 05/07/18 11:41 Dose: 1 cap Finasteride (Proscar) 5 mg PO DAILY [facility] Last Admin: 05/08/18 08:54 Dose: 5 mg Fluticasone Propionate (Flonase) 1 spr [place] DAILY PRN PRN Reason: Nasal congestion Aminocaproic Acid 10,000 mg/ (Dextrose) 500 mls @ 20.833 mls/hr IV .Q24H [facility] Stop: 05/09/18 11:44 Last Admin: 05/08/18 13:08 Dose: 20.833 mls/hr Iron Sucrose 200 mg/ Sodium (Chloride) 110 mls @ 110 mls/hr IVPB DAILY [facility] Stop: 05/11/18 09:59 Last Admin: 05/08/18 08:54 Dose: 110 mls/hr Metoprolol Succinate (Toprol Xl) 50 mg PO Q12 [facility] Last Admin: 05/08/18 21:25 Dose: Not Given Pantoprazole Sodium (Protonix Ec Tab) 40 mg PO DAILY [facility] Last Admin: 05/08/18 08:54 Dose: 40 mg Tamsulosin HCl (Flomax) 0.4 mg PO DAILY [facility] Last Admin: 05/08/18 08:55 Dose: 0.4 mg Vitamin B Complex/Vit C/Folic Acid (Nephro-Jj) 1 tab PO DAILY [facility] Last Admin: 05/08/18 08:55 Dose: 1 tab - Labs Labs: 05/08/18 04:50 05/08/18 04:50 PT 13.5 Seconds (9.8-13.1) H 05/05/18 11:26 INR 1.2 05/05/18 11:26 APTT 28.4 Seconds (25.6-37.1) 05/05/18 11:26 - Head Exam Head Exam: ATRAUMATIC - Eye Exam Eye Exam: Normal appearance - ENT Exam ENT Exam: Mucous Membranes Dry - Respiratory Exam Respiratory Exam: NORMAL BREATHING PATTERN - Cardiovascular Exam Cardiovascular Exam: +S1, +S2 - GI/Abdominal Exam GI & Abdominal Exam: Normal Bowel Sounds Assessment and Plan (1) Hematuria Assessment & Plan: prostatic urethra bleed; appears resolving s/p cystoscopy and cautery x 2; appreciate urology help on antifibrinolysis, s/p desmopressin s/p 2 bags cryopercipitate Status: Acute (2) Anemia Assessment & Plan: acute bleeding anemia of CKD on MENG per renal transfusion support Status: Acute (3) Prostate cancer Assessment & Plan: outpatient treatment Status: Acute
--- NOTE | 2018-05-09 00:14 | CP.PCM.PN ---
Subjective - Date & Time of Evaluation Date of Evaluation: 05/07/18 Time of Evaluation: 17:00 - Subjective Subjective: No complaints. Hematuria resolved. Objective - Vital Signs/Intake and Output Vital Signs (last 24 hours): Temp Pulse Resp BP Pulse Ox 97.9 F 78 18 118/73 95 05/08/18 23:34 05/08/18 23:34 05/08/18 23:34 05/08/18 23:34 05/08/18 23:34 - Medications Medications: Current Medications Acetaminophen (Tylenol 325mg Tab) 650 mg PO Q4 PRN PRN Reason: Fever >100.4 F Acetaminophen (Tylenol 325mg Tab) 650 mg PO Q4 PRN PRN Reason: Pain, Mild (1-3) Bacitracin (Bacitracin Oint) 1 applic TP DAILY [facility] Last Admin: 05/08/18 08:54 Dose: 1 applic Calcium Acetate (Phoslo) 667 mg PO TID [facility] Last Admin: 05/08/18 16:54 Dose: Not Given Ergocalciferol (Drisdol 50,000 Intl Units Cap) 1 cap PO Q7D [facility] Last Admin: 05/07/18 11:41 Dose: 1 cap Finasteride (Proscar) 5 mg PO DAILY [facility] Last Admin: 05/08/18 08:54 Dose: 5 mg Fluticasone Propionate (Flonase) 1 spr [place] DAILY PRN PRN Reason: Nasal congestion Aminocaproic Acid 10,000 mg/ (Dextrose) 500 mls @ 20.833 mls/hr IV .Q24H [facility] Stop: 05/09/18 11:44 Last Admin: 05/08/18 13:08 Dose: 20.833 mls/hr Iron Sucrose 200 mg/ Sodium (Chloride) 110 mls @ 110 mls/hr IVPB DAILY [facility] Stop: 05/11/18 09:59 Last Admin: 05/08/18 08:54 Dose: 110 mls/hr Metoprolol Succinate (Toprol Xl) 50 mg PO Q12 [facility] Last Admin: 05/08/18 21:25 Dose: Not Given Pantoprazole Sodium (Protonix Ec Tab) 40 mg PO DAILY [facility] Last Admin: 05/08/18 08:54 Dose: 40 mg Tamsulosin HCl (Flomax) 0.4 mg PO DAILY [facility] Last Admin: 05/08/18 08:55 Dose: 0.4 mg Vitamin B Complex/Vit C/Folic Acid (Nephro-Jj) 1 tab PO DAILY [facility] Last Admin: 05/08/18 08:55 Dose: 1 tab - Labs Labs: 05/08/18 04:50 05/08/18 04:50 PT 13.5 Seconds (9.8-13.1) H 05/05/18 11:26 INR 1.2 05/05/18 11:26 APTT 28.4 Seconds (25.6-37.1) 05/05/18 11:26 - Head Exam Head Exam: ATRAUMATIC - Eye Exam Eye Exam: Normal appearance - ENT Exam ENT Exam: Mucous Membranes Dry - Respiratory Exam Respiratory Exam: NORMAL BREATHING PATTERN - Cardiovascular Exam Cardiovascular Exam: +S1, +S2 - GI/Abdominal Exam GI & Abdominal Exam: Normal Bowel Sounds Assessment and Plan (1) Hematuria Assessment & Plan: resolved prostatic urethra bleed s/p cystoscopy and cautery x 2; appreciate urology help on antifibrinolysis, s/p desmopressin s/p 2 bags cryopercipitate Status: Acute (2) Anemia Assessment & Plan: acute bleeding anemia of CKD on MENG per renal transfusion support Status: Acute (3) Prostate cancer Assessment & Plan: outpatient treatment Status: Acute
--- NOTE | 2018-05-09 00:15 | CP.PCM.PN ---
Subjective - Date & Time of Evaluation Date of Evaluation: 05/08/18 Time of Evaluation: 13:00 - Subjective Subjective: No complaints. Objective - Vital Signs/Intake and Output Vital Signs (last 24 hours): Temp Pulse Resp BP Pulse Ox 97.9 F 78 18 118/73 95 05/08/18 23:34 05/08/18 23:34 05/08/18 23:34 05/08/18 23:34 05/08/18 23:34 - Medications Medications: Current Medications Acetaminophen (Tylenol 325mg Tab) 650 mg PO Q4 PRN PRN Reason: Fever >100.4 F Acetaminophen (Tylenol 325mg Tab) 650 mg PO Q4 PRN PRN Reason: Pain, Mild (1-3) Bacitracin (Bacitracin Oint) 1 applic TP DAILY [facility] Last Admin: 05/08/18 08:54 Dose: 1 applic Calcium Acetate (Phoslo) 667 mg PO TID [facility] Last Admin: 05/08/18 16:54 Dose: Not Given Ergocalciferol (Drisdol 50,000 Intl Units Cap) 1 cap PO Q7D [facility] Last Admin: 05/07/18 11:41 Dose: 1 cap Finasteride (Proscar) 5 mg PO DAILY [facility] Last Admin: 05/08/18 08:54 Dose: 5 mg Fluticasone Propionate (Flonase) 1 spr [place] DAILY PRN PRN Reason: Nasal congestion Aminocaproic Acid 10,000 mg/ (Dextrose) 500 mls @ 20.833 mls/hr IV .Q24H [facility] Stop: 05/09/18 11:44 Last Admin: 05/08/18 13:08 Dose: 20.833 mls/hr Iron Sucrose 200 mg/ Sodium (Chloride) 110 mls @ 110 mls/hr IVPB DAILY [facility] Stop: 05/11/18 09:59 Last Admin: 05/08/18 08:54 Dose: 110 mls/hr Metoprolol Succinate (Toprol Xl) 50 mg PO Q12 [facility] Last Admin: 05/08/18 21:25 Dose: Not Given Pantoprazole Sodium (Protonix Ec Tab) 40 mg PO DAILY [facility] Last Admin: 05/08/18 08:54 Dose: 40 mg Tamsulosin HCl (Flomax) 0.4 mg PO DAILY [facility] Last Admin: 05/08/18 08:55 Dose: 0.4 mg Vitamin B Complex/Vit C/Folic Acid (Nephro-Jj) 1 tab PO DAILY [facility] Last Admin: 05/08/18 08:55 Dose: 1 tab - Labs Labs: 05/08/18 04:50 05/08/18 04:50 PT 13.5 Seconds (9.8-13.1) H 05/05/18 11:26 INR 1.2 05/05/18 11:26 APTT 28.4 Seconds (25.6-37.1) 05/05/18 11:26 - Head Exam Head Exam: ATRAUMATIC - Eye Exam Eye Exam: Normal appearance - ENT Exam ENT Exam: Mucous Membranes Dry - Respiratory Exam Respiratory Exam: NORMAL BREATHING PATTERN - Cardiovascular Exam Cardiovascular Exam: +S1, +S2 - GI/Abdominal Exam GI & Abdominal Exam: Normal Bowel Sounds Assessment and Plan (1) Hematuria Assessment & Plan: prostatic urethra bleed resolved s/p cystoscopy and cautery x 2; appreciate urology help on antifibrinolysis, s/p desmopressin s/p 2 bags cryopercipitate Status: Acute (2) Anemia Assessment & Plan: acute bleeding anemia of CKD on MENG per renal transfusion support Status: Acute (3) Prostate cancer Assessment & Plan: outpatient treatment Status: Acute
[2018-05-09] MEDS: Metoprolol Succinate 50 mg XL Tab PO SCH ×2 (08:52→22:07)
[2018-05-09] MEDS: Pantoprazole 40 mg EC Tab PO SCH (08:52)
--- NOTE | 2018-05-09 09:52 | CP.PCM.PN ---
Subjective - Date & Time of Evaluation Date of Evaluation: 05/09/18 Time of Evaluation: 09:52 - Subjective Subjective: patient awake and conscious not in acute distress. Sitting up and having his breakfast Objective - Vital Signs/Intake and Output Vital Signs (last 24 hours): Temp Pulse Resp BP Pulse Ox 98 F 87 18 121/78 96 05/09/18 07:52 05/09/18 08:52 05/09/18 07:52 05/09/18 08:52 05/09/18 07:52 Intake and Output: 05/09/18 05/09/18 06:59 18:59 Intake Total 490 Output Total 250 Balance 240 - Medications Medications: Current Medications Acetaminophen (Tylenol 325mg Tab) 650 mg PO Q4 PRN PRN Reason: Fever >100.4 F Acetaminophen (Tylenol 325mg Tab) 650 mg PO Q4 PRN PRN Reason: Pain, Mild (1-3) Bacitracin (Bacitracin Oint) 1 applic TP DAILY [facility] Last Admin: 05/08/18 08:54 Dose: 1 applic Calcium Acetate (Phoslo) 667 mg PO TID [facility] Last Admin: 05/09/18 08:52 Dose: 667 mg Dapsone (Dapsone) 100 mg PO DAILY [facility] PRN Reason: Protocol Ergocalciferol (Drisdol 50,000 Intl Units Cap) 1 cap PO Q7D [facility] Last Admin: 05/07/18 11:41 Dose: 1 cap Finasteride (Proscar) 5 mg PO DAILY [facility] Last Admin: 05/09/18 08:52 Dose: 5 mg Fluticasone Propionate (Flonase) 1 spr [facility] DAILY PRN PRN Reason: Nasal congestion Aminocaproic Acid 10,000 mg/ (Dextrose) 500 mls @ 20.833 mls/hr IV .Q24H [facility] Stop: 05/09/18 11:44 Last Admin: 05/08/18 13:08 Dose: 20.833 mls/hr Iron Sucrose 200 mg/ Sodium (Chloride) 110 mls @ 110 mls/hr IVPB DAILY [facility] Stop: 05/11/18 09:59 Last Admin: 05/09/18 08:51 Dose: 110 mls/hr Metoprolol Succinate (Toprol Xl) 50 mg PO Q12 [facility] Last Admin: 05/09/18 08:52 Dose: 50 mg Pantoprazole Sodium (Protonix Ec Tab) 40 mg PO DAILY [facility] Last Admin: 05/09/18 08:52 Dose: 40 mg Prednisone (Prednisone Tab) 40 mg PO DAILY [facility] Tamsulosin HCl (Flomax) 0.4 mg PO DAILY [facility] Last Admin: 05/09/18 08:52 Dose: 0.4 mg Vitamin B Complex/Vit C/Folic Acid (Nephro-Jj) 1 tab PO DAILY [facility] Last Admin: 05/08/18 08:55 Dose: 1 tab - Labs Labs: 05/08/18 04:50 05/08/18 04:50 PT 13.5 Seconds (9.8-13.1) H 05/05/18 11:26 INR 1.2 05/05/18 11:26 APTT 28.4 Seconds (25.6-37.1) 05/05/18 11:26 - Constitutional Appears: No Acute Distress - Eye Exam Eye Exam: Conjunctival injection - ENT Exam ENT Exam: Mucous Membranes Moist - Neck Exam Neck Exam: absent: Lymphadenopathy - Respiratory Exam Respiratory Exam: absent: Chest Wall Tenderness, Wheezes - Cardiovascular Exam Cardiovascular Exam: REGULAR RHYTHM. 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) gross hematuria which is significantly improving severe anemia prostatic CA The plan Somehow I do not see prednisone on the list of the medication patient has been on oral prednisone To be restarted immediately To repeat BMP tomorrow morning to make sure about the level of BUN/creatinine Patient clinically appears to be stable scheduled for hemodialysis tomorrow and TTS Status: Acute
[2018-05-09] MEDS: Bacitracin OINT 15GM TP SCH (10:47)
[2018-05-09] MEDS: Multivitamin Vitamin B Complex (Nephro-Vite) Tab PO SCH (12:41)
--- NOTE | 2018-05-09 13:18 | PN ---
DATE: 05/09/2018 SUBJECTIVE: The patient seen and examined. Interim events noted. Consults noted and appreciated. Hematology followup and interventions noted and appreciated. The patient remains in progressive care unit with telemetry monitoring and with Banks catheter. Bladder irrigation was discontinued by Urology. The patient is sleepy, arousable, feels okay. Denies any chest pain, shortness of breath, or new weakness. Also denies any urinary symptoms other than discomfort from Banks catheter. PHYSICAL EXAMINATION: GENERAL: The patient is in no acute distress. VITAL SIGNS: Stable. No orthostatic changes. HEART: S1 and S2, normal and regular. LUNGS: Good bilateral air exchange. ABDOMEN: Soft, and nontender. GENITOURINARY: Banks catheter has bloody urine, but amount is very minimal. Mostly in the tube. Very minimal in the bag. EXTREMITIES: No edema. No calf swelling. No tenderness. No acute ischemia. TRAIN ENGINEER: Exam is essentially unchanged. DIAGNOSTIC DATA: Available diagnostic data reviewed. Telemetry monitoring does not reveal significant arrhythmias. Last hemoglobin was 8.3. ASSESSMENT AND PLAN: Overall, the patient is clinically stable, but still has some blood in the urine, but the amount is much less. Plan as ordered. Case and plan discussed with the patient. Hans Tineo MD
--- NOTE | 2018-05-09 22:29 | CP.PCM.PN ---
Subjective - Date & Time of Evaluation Date of Evaluation: 05/09/18 Time of Evaluation: 19:00 - Subjective Subjective: No complaints. Objective - Vital Signs/Intake and Output Vital Signs (last 24 hours): Temp Pulse Resp BP Pulse Ox 98.0 F 76 20 126/65 99 05/09/18 20:11 05/09/18 22:07 05/09/18 20:11 05/09/18 22:07 05/09/18 20:11 - Medications Medications: Current Medications Acetaminophen (Tylenol 325mg Tab) 650 mg PO Q4 PRN PRN Reason: Fever >100.4 F Acetaminophen (Tylenol 325mg Tab) 650 mg PO Q4 PRN PRN Reason: Pain, Mild (1-3) Bacitracin (Bacitracin Oint) 1 applic TP DAILY [facility] Last Admin: 05/09/18 10:47 Dose: Not Given Calcium Acetate (Phoslo) 667 mg PO TID [facility] Last Admin: 05/09/18 17:18 Dose: 667 mg Dapsone (Dapsone) 100 mg PO DAILY [facility] PRN Reason: Protocol Ergocalciferol (Drisdol 50,000 Intl Units Cap) 1 cap PO Q7D [facility] Last Admin: 05/07/18 11:41 Dose: 1 cap Finasteride (Proscar) 5 mg PO DAILY [facility] Last Admin: 05/09/18 08:52 Dose: 5 mg Fluticasone Propionate (Flonase) 1 spr [facility] DAILY PRN PRN Reason: Nasal congestion Iron Sucrose 200 mg/ Sodium (Chloride) 110 mls @ 110 mls/hr IVPB DAILY [facility] Stop: 05/11/18 09:59 Last Admin: 05/09/18 08:51 Dose: 110 mls/hr Metoprolol Succinate (Toprol Xl) 50 mg PO Q12 [facility] Last Admin: 05/09/18 22:07 Dose: 50 mg Pantoprazole Sodium (Protonix Ec Tab) 40 mg PO DAILY [facility] Last Admin: 05/09/18 08:52 Dose: 40 mg Prednisone (Prednisone Tab) 40 mg PO DAILY [facility] Last Admin: 05/09/18 12:41 Dose: 40 mg Tamsulosin HCl (Flomax) 0.4 mg PO DAILY [facility] Last Admin: 05/09/18 08:52 Dose: 0.4 mg Vitamin B Complex/Vit C/Folic Acid (Nephro-Jj) 1 tab PO DAILY [facility] Last Admin: 05/09/18 12:41 Dose: 1 tab - Labs Labs: 05/08/18 04:50 05/08/18 04:50 PT 13.5 Seconds (9.8-13.1) H 05/05/18 11:26 INR 1.2 05/05/18 11:26 APTT 28.4 Seconds (25.6-37.1) 05/05/18 11:26 - Head Exam Head Exam: ATRAUMATIC - Eye Exam Eye Exam: Normal appearance - ENT Exam ENT Exam: Mucous Membranes Dry - Respiratory Exam Respiratory Exam: NORMAL BREATHING PATTERN - Cardiovascular Exam Cardiovascular Exam: +S1, +S2 - GI/Abdominal Exam GI & Abdominal Exam: Normal Bowel Sounds Assessment and Plan (1) Hematuria Assessment & Plan: prostatic urethra bleeding resolving s/p cystoscopy and cautery x 2; appreciate urology help s/p antifibrinolysis, s/p desmopressin s/p 2 bags cryopercipitate Status: Acute (2) Anemia Assessment & Plan: acute bleeding anemia of CKD on MENG per renal transfusion support Status: Acute (3) Prostate cancer Assessment & Plan: outpatient treatment Status: Acute
[2018-05-10 05:31] LABS: ALB/GLOB RATIO 0.9 (1.0-2.1); ALBUMIN 2.2 g/dL (3.5-5.0); CALCIUM 8.2 mg/dL (8.4-10.2)
[2018-05-10] MEDS: Bacitracin OINT 15GM TP SCH (08:57)
[2018-05-10] MEDS: Multivitamin Vitamin B Complex (Nephro-Vite) Tab PO SCH (08:57)
[2018-05-10] MEDS: Pantoprazole 40 mg EC Tab PO SCH (08:57)
[2018-05-10] MEDS: Metoprolol Succinate 50 mg XL Tab PO SCH ×2 (08:58→21:39)
[2018-05-10 10:49] LABS: MEAN CELL VOLUME 94.9 fl (80.0-94.0); MEAN CORPUSCULAR HGB CONC 32.7 g/dL (33.0-37.0); RBC 2.9 Mil/uL (4.40-5.90); RED CELL DISTRIBUTION WIDTH 15.8 % (11.5-14.5); WHITE BLOOD COUNT 12.4 K/uL (4.8-10.8)
--- NOTE | 2018-05-10 11:01 | CP.PCM.PN ---
Subjective - Date & Time of Evaluation Date of Evaluation: 05/10/18 Time of Evaluation: 11:00 - Subjective Subjective: patient is conscious and alert not in acute distress appears to be comfortable Objective - Vital Signs/Intake and Output Vital Signs (last 24 hours): Temp Pulse Resp BP Pulse Ox 97.7 F 62 20 132/70 89 L 05/10/18 08:09 05/10/18 09:00 05/10/18 08:09 05/10/18 08:09 05/10/18 08:09 - Medications Medications: Current Medications Acetaminophen (Tylenol 325mg Tab) 650 mg PO Q4 PRN PRN Reason: Fever >100.4 F Acetaminophen (Tylenol 325mg Tab) 650 mg PO Q4 PRN PRN Reason: Pain, Mild (1-3) Bacitracin (Bacitracin Oint) 1 applic TP DAILY [facility] Last Admin: 05/10/18 08:57 Dose: 1 applic Calcium Acetate (Phoslo) 667 mg PO TID [facility] Last Admin: 05/10/18 08:57 Dose: 667 mg Dapsone (Dapsone) 100 mg PO DAILY [facility] PRN Reason: Protocol Last Admin: 05/10/18 08:56 Dose: 100 mg Ergocalciferol (Drisdol 50,000 Intl Units Cap) 1 cap PO Q7D [facility] Last Admin: 05/07/18 11:41 Dose: 1 cap Finasteride (Proscar) 5 mg PO DAILY [facility] Last Admin: 05/10/18 08:57 Dose: 5 mg Fluticasone Propionate (Flonase) 1 spr [place] DAILY PRN PRN Reason: Nasal congestion Iron Sucrose 200 mg/ Sodium (Chloride) 110 mls @ 110 mls/hr IVPB DAILY [facility] Stop: 05/11/18 09:59 Last Admin: 05/09/18 08:51 Dose: 110 mls/hr Metoprolol Succinate (Toprol Xl) 50 mg PO Q12 [facility] Last Admin: 05/10/18 08:58 Dose: Not Given Pantoprazole Sodium (Protonix Ec Tab) 40 mg PO DAILY [facility] Last Admin: 05/10/18 08:57 Dose: 40 mg Prednisone (Prednisone Tab) 40 mg PO DAILY [facility] Last Admin: 05/10/18 08:57 Dose: 40 mg Tamsulosin HCl (Flomax) 0.4 mg PO DAILY [facility] Last Admin: 05/10/18 08:58 Dose: 0.4 mg Vitamin B Complex/Vit C/Folic Acid (Nephro-Jj) 1 tab PO DAILY [facility] Last Admin: 05/10/18 08:57 Dose: 1 tab - Labs Labs: 05/10/18 08:38 05/10/18 05:02 PT 13.5 Seconds (9.8-13.1) H 05/05/18 11:26 INR 1.2 05/05/18 11:26 APTT 28.4 Seconds (25.6-37.1) 05/05/18 11:26 - Constitutional Appears: No Acute Distress - Eye Exam Eye Exam: Conjunctival injection - ENT Exam ENT Exam: Mucous Membranes Moist - Neck Exam Neck Exam: absent: Lymphadenopathy - Respiratory Exam Respiratory Exam: absent: Chest Wall Tenderness - Cardiovascular Exam Cardiovascular Exam: absent: Gallop, JVD, Rubs - GI/Abdominal Exam GI & Abdominal Exam: Soft, Normal Bowel Sounds - Extremities Exam Extremities Exam: absent: Calf Tenderness - Back Exam Back Exam: absent: CVA tenderness (L), CVA tenderness (R) - Neurological Exam Neurological Exam: Alert - Skin Skin Exam: absent: Cyanosis Assessment and Plan (1) ESRD (end stage renal disease) on dialysis Assessment & Plan: Assessment & Plan: 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
--- NOTE | 2018-05-10 11:36 | CP.PCM.PN ---
Subjective - Date & Time of Evaluation Date of Evaluation: 05/10/18 Time of Evaluation: 10:40 - Subjective Subjective: No complaints, pink tinged urine Objective - Vital Signs/Intake and Output Vital Signs (last 24 hours): Temp Pulse Resp BP Pulse Ox 97.7 F 62 20 132/70 89 L 05/10/18 08:09 05/10/18 09:00 05/10/18 08:09 05/10/18 08:09 05/10/18 08:09 - Medications Medications: Current Medications Acetaminophen (Tylenol 325mg Tab) 650 mg PO Q4 PRN PRN Reason: Fever >100.4 F Acetaminophen (Tylenol 325mg Tab) 650 mg PO Q4 PRN PRN Reason: Pain, Mild (1-3) Bacitracin (Bacitracin Oint) 1 applic TP DAILY [facility] Last Admin: 05/10/18 08:57 Dose: 1 applic Calcium Acetate (Phoslo) 667 mg PO TID [facility] Last Admin: 05/10/18 08:57 Dose: 667 mg Dapsone (Dapsone) 100 mg PO DAILY [facility] PRN Reason: Protocol Last Admin: 05/10/18 08:56 Dose: 100 mg Ergocalciferol (Drisdol 50,000 Intl Units Cap) 1 cap PO Q7D [facility] Last Admin: 05/07/18 11:41 Dose: 1 cap Finasteride (Proscar) 5 mg PO DAILY [facility] Last Admin: 05/10/18 08:57 Dose: 5 mg Fluticasone Propionate (Flonase) 1 spr [place] DAILY PRN PRN Reason: Nasal congestion Iron Sucrose 200 mg/ Sodium (Chloride) 110 mls @ 110 mls/hr IVPB DAILY [facility] Stop: 05/11/18 09:59 Last Admin: 05/09/18 08:51 Dose: 110 mls/hr Metoprolol Succinate (Toprol Xl) 50 mg PO Q12 [facility] Last Admin: 05/10/18 08:58 Dose: Not Given Pantoprazole Sodium (Protonix Ec Tab) 40 mg PO DAILY [facility] Last Admin: 05/10/18 08:57 Dose: 40 mg Prednisone (Prednisone Tab) 40 mg PO DAILY [facility] Last Admin: 05/10/18 08:57 Dose: 40 mg Tamsulosin HCl (Flomax) 0.4 mg PO DAILY [facility] Last Admin: 05/10/18 08:58 Dose: 0.4 mg Vitamin B Complex/Vit C/Folic Acid (Nephro-Jj) 1 tab PO DAILY [facility] Last Admin: 05/10/18 08:57 Dose: 1 tab - Labs Labs: 05/10/18 08:38 05/10/18 05:02 PT 13.5 Seconds (9.8-13.1) H 05/05/18 11:26 INR 1.2 05/05/18 11:26 APTT 28.4 Seconds (25.6-37.1) 05/05/18 11:26 - Head Exam Head Exam: ATRAUMATIC - Eye Exam Eye Exam: Normal appearance - ENT Exam ENT Exam: Mucous Membranes Dry - Respiratory Exam Respiratory Exam: NORMAL BREATHING PATTERN - Cardiovascular Exam Cardiovascular Exam: +S1, +S2 - GI/Abdominal Exam GI & Abdominal Exam: Normal Bowel Sounds Assessment and Plan (1) Hematuria Assessment & Plan: improved blood tinged H/H improving Status: Acute (2) Anemia Assessment & Plan: acute bleeding anemia of CKD on MENG per renal transfusion support Status: Acute (3) Prostate cancer Assessment & Plan: outpatient treatment Status: Acute
--- NOTE | 2018-05-10 14:02 | PN ---
DATE: 05/10/2018 SUBJECTIVE: The patient seen and examined. Interim events noted. The patient remains in progressive care unit with telemetry monitoring. Feels okay. Denies any chest pain, shortness of breath or any urinary symptoms. PHYSICAL EXAMINATION: GENERAL: The patient is in no acute distress. VITAL SIGNS: Stable. HEART: S1 and S2, normal and regular. LUNGS: Good bilateral air exchange. ABDOMEN: Soft, nontender. EXTREMITIES: No edema. No calf swelling. No tenderness. No acute ischemia. SALES SUPPORT MANAGER: Exam is essentially unchanged. DIAGNOSTIC DATA: Available diagnostic data reviewed. Telemetry monitoring does not reveal significant arrhythmia. Hematology and Nephrology followup and intervention noted and appreciated. ASSESSMENT AND PLAN: Overall, the patient's general medical condition is stable. Plan as ordered. Hans Tineo MD
[2018-05-11] MEDS: Bacitracin OINT 15GM TP SCH (09:13)
[2018-05-11] MEDS: Metoprolol Succinate 50 mg XL Tab PO SCH ×2 (09:13→20:34)
[2018-05-11] MEDS: Multivitamin Vitamin B Complex (Nephro-Vite) Tab PO SCH (09:13)
[2018-05-11] MEDS: Pantoprazole 40 mg EC Tab PO SCH (09:14)
--- NOTE | 2018-05-11 13:06 | CP.PCM.PN ---
Subjective - Date & Time of Evaluation Date of Evaluation: 05/11/18 Time of Evaluation: 13:05 - Subjective Subjective: patient awake and conscious no nausea no vomiting patient reported eating well. Objective - Vital Signs/Intake and Output Vital Signs (last 24 hours): Temp Pulse Resp BP Pulse Ox 97.9 F 87 20 131/76 97 05/11/18 12:00 05/11/18 12:00 05/11/18 12:00 05/11/18 12:00 05/11/18 12:00 - Medications Medications: Current Medications Acetaminophen (Tylenol 325mg Tab) 650 mg PO Q4 PRN PRN Reason: Fever >100.4 F Acetaminophen (Tylenol 325mg Tab) 650 mg PO Q4 PRN PRN Reason: Pain, Mild (1-3) Bacitracin (Bacitracin Oint) 1 applic TP DAILY [facility] Last Admin: 05/11/18 09:13 Dose: 1 applic Calcium Acetate (Phoslo) 667 mg PO TID [facility] Last Admin: 05/11/18 09:13 Dose: 667 mg Dapsone (Dapsone) 100 mg PO DAILY [facility] PRN Reason: Protocol Last Admin: 05/11/18 09:13 Dose: 100 mg Ergocalciferol (Drisdol 50,000 Intl Units Cap) 1 cap PO Q7D [facility] Last Admin: 05/07/18 11:41 Dose: 1 cap Finasteride (Proscar) 5 mg PO DAILY [facility] Last Admin: 05/11/18 09:13 Dose: 5 mg Fluticasone Propionate (Flonase) 1 spr [place] DAILY PRN PRN Reason: Nasal congestion Metoprolol Succinate (Toprol Xl) 50 mg PO Q12 [facility] Last Admin: 05/11/18 09:13 Dose: 50 mg Pantoprazole Sodium (Protonix Ec Tab) 40 mg PO DAILY [facility] Last Admin: 05/11/18 09:14 Dose: 40 mg Prednisone (Prednisone Tab) 40 mg PO DAILY [facility] Last Admin: 05/11/18 09:12 Dose: 40 mg Tamsulosin HCl (Flomax) 0.4 mg PO DAILY [facility] Last Admin: 05/11/18 09:13 Dose: 0.4 mg Vitamin B Complex/Vit C/Folic Acid (Nephro-Jj) 1 tab PO DAILY [facility] Last Admin: 05/11/18 09:13 Dose: 1 tab - Labs Labs: 05/10/18 08:38 05/10/18 05:02 PT 13.5 Seconds (9.8-13.1) H 05/05/18 11:26 INR 1.2 05/05/18 11:26 APTT 28.4 Seconds (25.6-37.1) 05/05/18 11:26 - Constitutional Appears: No Acute Distress - ENT Exam ENT Exam: absent: Mucous Membranes Moist - Neck Exam Neck Exam: absent: Lymphadenopathy - Respiratory Exam Respiratory Exam: NORMAL BREATHING PATTERN. 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
--- NOTE | 2018-05-11 13:36 | PN ---
DATE: 05/11/2018 SUBJECTIVE: The patient is seen and examined. Interim events noted. The patient remains in progressive care unit, on telemetry monitoring. The patient feels okay. Denies any complaint. No chest pain. No shortness of breath. No urinary symptoms. No bleeding. PHYSICAL EXAMINATION: GENERAL: The patient is in no acute distress. VITAL SIGNS: Stable. HEART: S1 and S2, normal and regular. LUNGS: Good bilateral air exchange. ABDOMEN: Soft, nontender. EXTREMITIES: No edema. No calf swelling. No tenderness. No acute ischemia. 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 DIAGNOSTIC DATA: Available diagnostic data reviewed. Telemetry monitoring does not reveal significant arrhythmia. Hemoglobin is 9 and stable. ASSESSMENT AND PLAN: Overall, the patient is clinically stable. Plan as ordered. Hans Tineo MD
[2018-05-12 05:52] LABS: HEMOGLOBIN 7.8 g/dL (12.0-18.0); MEAN CORPUSCULAR HEMOGLOBIN 30.9 pg (27.0-31.0); MEAN CORPUSCULAR HGB CONC 32.9 g/dL (33.0-37.0); RBC 2.52 Mil/uL (4.40-5.90); RED CELL DISTRIBUTION WIDTH 15.2 % (11.5-14.5); WHITE BLOOD COUNT 12.7 K/uL (4.8-10.8)
[2018-05-12 06:16] LABS: ALB/GLOB RATIO 0.9 (1.0-2.1); ALBUMIN 2.2 g/dL (3.5-5.0); CALCIUM 7.8 mg/dL (8.4-10.2)
[2018-05-12] MEDS: Metoprolol Succinate 50 mg XL Tab PO SCH ×2 (08:50→20:48)
[2018-05-12] MEDS: Multivitamin Vitamin B Complex (Nephro-Vite) Tab PO SCH (08:50)
[2018-05-12] MEDS: Pantoprazole 40 mg EC Tab PO SCH (08:51)
[2018-05-12] MEDS: Bacitracin OINT 15GM TP SCH (08:51)
--- NOTE | 2018-05-12 09:46 | CP.PCM.PN ---
Subjective - Date & Time of Evaluation Date of Evaluation: 05/12/18 Time of Evaluation: 09:45 - Subjective Subjective: patient is awake and conscious not in acute distress. Appetite is good no nausea or vomiting no chest pain Objective - Vital Signs/Intake and Output Vital Signs (last 24 hours): Temp Pulse Resp BP Pulse Ox 98.2 F 81 20 133/71 96 05/12/18 07:52 05/12/18 07:52 05/12/18 07:52 05/12/18 07:52 05/12/18 07:52 - Medications Medications: Current Medications Acetaminophen (Tylenol 325mg Tab) 650 mg PO Q4 PRN PRN Reason: Fever >100.4 F Acetaminophen (Tylenol 325mg Tab) 650 mg PO Q4 PRN PRN Reason: Pain, Mild (1-3) Bacitracin (Bacitracin Oint) 1 applic TP DAILY [facility] Last Admin: 05/12/18 08:51 Dose: 1 applic Calcium Acetate (Phoslo) 667 mg PO TID [facility] Last Admin: 05/12/18 08:50 Dose: 667 mg Dapsone (Dapsone) 100 mg PO DAILY [facility] PRN Reason: Protocol Last Admin: 05/12/18 08:51 Dose: 100 mg Ergocalciferol (Drisdol 50,000 Intl Units Cap) 1 cap PO Q7D [facility] Last Admin: 05/07/18 11:41 Dose: 1 cap Finasteride (Proscar) 5 mg PO DAILY [facility] Last Admin: 05/12/18 08:51 Dose: 5 mg Fluticasone Propionate (Flonase) 1 spr [place] DAILY PRN PRN Reason: Nasal congestion Metoprolol Succinate (Toprol Xl) 50 mg PO Q12 [facility] Last Admin: 05/12/18 08:50 Dose: Not Given Pantoprazole Sodium (Protonix Ec Tab) 40 mg PO DAILY [facility] Last Admin: 05/12/18 08:51 Dose: 40 mg Prednisone (Prednisone Tab) 40 mg PO DAILY [facility] Last Admin: 05/12/18 08:51 Dose: 40 mg Tamsulosin HCl (Flomax) 0.4 mg PO DAILY [facility] Last Admin: 05/12/18 08:50 Dose: 0.4 mg Vitamin B Complex/Vit C/Folic Acid (Nephro-Jj) 1 tab PO DAILY [facility] Last Admin: 05/12/18 08:50 Dose: 1 tab - Labs Labs: 05/12/18 04:30 05/12/18 04:30 PT 13.5 Seconds (9.8-13.1) H 05/05/18 11:26 INR 1.2 05/05/18 11:26 APTT 28.4 Seconds (25.6-37.1) 05/05/18 11:26 - Constitutional Appears: No Acute Distress - Eye Exam Eye Exam: Conjunctival injection - ENT Exam ENT Exam: Mucous Membranes Moist - Neck Exam Neck Exam: absent: Lymphadenopathy - Respiratory Exam Respiratory Exam: NORMAL BREATHING PATTERN. absent: Chest Wall Tenderness - Cardiovascular Exam Cardiovascular Exam: REGULAR RHYTHM. 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
--- NOTE | 2018-05-12 12:02 | PN ---
DATE: 05/12/2018 SUBJECTIVE: The patient seen and examined. Interim events noted. The patient remains in progressive care unit, on telemetry monitoring. Awake, responsive. Denies any specific complaint. No chest pain. No shortness of breath. Also denies any gross hematuria or urinary symptoms. PHYSICAL EXAMINATION: GENERAL: The patient is in no acute distress. VITAL SIGNS: Stable. HEART EXAM: S1 and S2, normal and regular. LUNGS: Good bilateral air exchange. ABDOMEN: Soft and nontender. EXTREMITIES: No edema. No calf swelling. No tenderness. No acute ischemia. BUSINESS OBJECTS DEVELOPER: Exam is essentially unchanged. DIAGNOSTIC DATA: Available diagnostic data reviewed. Telemetry monitoring does not reveal significant arrhythmia. ASSESSMENT AND PLAN: Overall, the patient's general medical condition is stable. Plan as ordered. Hans Tineo MD
--- NOTE | 2018-05-12 22:12 | CP.PCM.PN ---
Subjective - Date & Time of Evaluation Date of Evaluation: 05/11/18 Time of Evaluation: 13:00 - Subjective Subjective: Appears comfortable Objective - Vital Signs/Intake and Output Vital Signs (last 24 hours): Temp Pulse Resp BP Pulse Ox 98 F 92 H 16 134/72 95 05/12/18 20:24 05/12/18 20:48 05/12/18 20:24 05/12/18 20:48 05/12/18 20:24 - Medications Medications: Current Medications Acetaminophen (Tylenol 325mg Tab) 650 mg PO Q4 PRN PRN Reason: Fever >100.4 F Acetaminophen (Tylenol 325mg Tab) 650 mg PO Q4 PRN PRN Reason: Pain, Mild (1-3) Bacitracin (Bacitracin Oint) 1 applic TP DAILY [facility] Last Admin: 05/12/18 08:51 Dose: 1 applic Calcium Acetate (Phoslo) 667 mg PO TID [facility] Last Admin: 05/12/18 17:02 Dose: Not Given Dapsone (Dapsone) 100 mg PO DAILY [facility] PRN Reason: Protocol Last Admin: 05/12/18 08:51 Dose: 100 mg Ergocalciferol (Drisdol 50,000 Intl Units Cap) 1 cap PO Q7D [facility] Last Admin: 05/07/18 11:41 Dose: 1 cap Finasteride (Proscar) 5 mg PO DAILY [facility] Last Admin: 05/12/18 08:51 Dose: 5 mg Fluticasone Propionate (Flonase) 1 spr [place] DAILY PRN PRN Reason: Nasal congestion Metoprolol Succinate (Toprol Xl) 50 mg PO Q12 [facility] Last Admin: 05/12/18 20:48 Dose: 50 mg Pantoprazole Sodium (Protonix Ec Tab) 40 mg PO DAILY [facility] Last Admin: 05/12/18 08:51 Dose: 40 mg Prednisone (Prednisone Tab) 40 mg PO DAILY [facility] Last Admin: 05/12/18 08:51 Dose: 40 mg Tamsulosin HCl (Flomax) 0.4 mg PO DAILY [facility] Last Admin: 05/12/18 08:50 Dose: 0.4 mg Vitamin B Complex/Vit C/Folic Acid (Nephro-Jj) 1 tab PO DAILY [facility] Last Admin: 05/12/18 08:50 Dose: 1 tab - Labs Labs: 05/12/18 04:30 05/12/18 04:30 PT 13.5 Seconds (9.8-13.1) H 05/05/18 11:26 INR 1.2 05/05/18 11:26 APTT 28.4 Seconds (25.6-37.1) 05/05/18 11:26 - Head Exam Head Exam: ATRAUMATIC - Eye Exam Eye Exam: Normal appearance - ENT Exam ENT Exam: Mucous Membranes Dry - Respiratory Exam Respiratory Exam: NORMAL BREATHING PATTERN - Cardiovascular Exam Cardiovascular Exam: +S1, +S2 - GI/Abdominal Exam GI & Abdominal Exam: Normal Bowel Sounds Assessment and Plan (1) Hematuria Assessment & Plan: mild pink tinged urine per nursing improving Status: Acute (2) Anemia Assessment & Plan: hematuria chronic disease anemia of CKD on MENG Status: Acute (3) Prostate cancer Assessment & Plan: outpatient treatment Status: Acute
--- NOTE | 2018-05-12 22:16 | CP.PCM.PN ---
Subjective - Date & Time of Evaluation Date of Evaluation: 05/12/18 Time of Evaluation: 18:00 - Subjective Subjective: Appears comfortable s/p 1U PRBC with HD Objective - Vital Signs/Intake and Output Vital Signs (last 24 hours): Temp Pulse Resp BP Pulse Ox 98 F 92 H 16 134/72 95 05/12/18 20:24 05/12/18 20:48 05/12/18 20:24 05/12/18 20:48 05/12/18 20:24 - Medications Medications: Current Medications Acetaminophen (Tylenol 325mg Tab) 650 mg PO Q4 PRN PRN Reason: Fever >100.4 F Acetaminophen (Tylenol 325mg Tab) 650 mg PO Q4 PRN PRN Reason: Pain, Mild (1-3) Bacitracin (Bacitracin Oint) 1 applic TP DAILY [facility] Last Admin: 05/12/18 08:51 Dose: 1 applic Calcium Acetate (Phoslo) 667 mg PO TID [facility] Last Admin: 05/12/18 17:02 Dose: Not Given Dapsone (Dapsone) 100 mg PO DAILY [facility] PRN Reason: Protocol Last Admin: 05/12/18 08:51 Dose: 100 mg Ergocalciferol (Drisdol 50,000 Intl Units Cap) 1 cap PO Q7D [facility] Last Admin: 05/07/18 11:41 Dose: 1 cap Finasteride (Proscar) 5 mg PO DAILY [facility] Last Admin: 05/12/18 08:51 Dose: 5 mg Fluticasone Propionate (Flonase) 1 spr [place] DAILY [facility] PRN Reason: Nasal congestion Metoprolol Succinate (Toprol Xl) 50 mg PO Q12 [facility] Last Admin: 05/12/18 20:48 Dose: 50 mg Pantoprazole Sodium (Protonix Ec Tab) 40 mg PO DAILY [facility] Last Admin: 05/12/18 08:51 Dose: 40 mg Prednisone (Prednisone Tab) 40 mg PO DAILY [facility] Last Admin: 05/12/18 08:51 Dose: 40 mg Tamsulosin HCl (Flomax) 0.4 mg PO DAILY [facility] Last Admin: 05/12/18 08:50 Dose: 0.4 mg Vitamin B Complex/Vit C/Folic Acid (Nephro-Jj) 1 tab PO DAILY [facility] Last Admin: 05/12/18 08:50 Dose: 1 tab - Labs Labs: 05/12/18 04:30 05/12/18 04:30 PT 13.5 Seconds (9.8-13.1) H 05/05/18 11:26 INR 1.2 05/05/18 11:26 APTT 28.4 Seconds (25.6-37.1) 05/05/18 11:26 - Head Exam Head Exam: ATRAUMATIC - Eye Exam Eye Exam: Normal appearance - ENT Exam ENT Exam: Mucous Membranes Dry - Respiratory Exam Respiratory Exam: NORMAL BREATHING PATTERN - Cardiovascular Exam Cardiovascular Exam: +S1, +S2 - GI/Abdominal Exam GI & Abdominal Exam: Normal Bowel Sounds Assessment and Plan (1) Hematuria Assessment & Plan: will consider restarting Amicar if H/H drops from hematuria repeat coags and fibrinogen Status: Acute (2) Anemia Assessment & Plan: hematuria chronic disease anemia of CKD on MENG transfusion support PRN Status: Acute (3) Prostate cancer Assessment & Plan: outpatient treatment Status: Acute
[2018-05-13 05:16] LABS: MEAN CELL VOLUME 93.9 fl (80.0-94.0); MEAN CORPUSCULAR HEMOGLOBIN 31.3 pg (27.0-31.0); MEAN CORPUSCULAR HGB CONC 33.3 g/dL (33.0-37.0); RBC 2.87 Mil/uL (4.40-5.90); RED CELL DISTRIBUTION WIDTH 14.9 % (11.5-14.5); WHITE BLOOD COUNT 11.7 K/uL (4.8-10.8)
[2018-05-13 05:28] LABS: INR 1.1; PROTHROMBIN TIME 11.8 Seconds (9.8-13.1)
[2018-05-13 05:30] LABS: PARTIAL THROMBOPLASTIN TIME 28.4 Seconds (25.6-37.1)
--- NOTE | 2018-05-13 08:28 | CP.PCM.PN ---
<Don Perry - Last Filed: 05/13/18 16:29> Subjective - Date & Time of Evaluation Date of Evaluation: 05/13/18 Time of Evaluation: 07:00 - Subjective Subjective: Pt seen and examined at bedside with Dr. Tineo. Pt denies acute overnight events. Denies hematuria, CP/SOB. tolerating po diet. voiding freely Objective - Vital Signs/Intake and Output Vital Signs (last 24 hours): Temp Pulse Resp BP Pulse Ox 98.2 F 81 18 128/72 95 05/13/18 05:00 05/13/18 05:00 05/13/18 05:00 05/13/18 05:00 05/13/18 05:00 Intake and Output: 05/13/18 05/13/18 06:59 18:59 Intake Total 320 Output Total 2000 Balance -1680 - Medications Medications: Current Medications Acetaminophen (Tylenol 325mg Tab) 650 mg PO Q4 PRN PRN Reason: Fever >100.4 F Acetaminophen (Tylenol 325mg Tab) 650 mg PO Q4 PRN PRN Reason: Pain, Mild (1-3) Bacitracin (Bacitracin Oint) 1 applic TP DAILY [facility] Last Admin: 05/12/18 08:51 Dose: 1 applic Calcium Acetate (Phoslo) 667 mg PO TID [facility] Last Admin: 05/12/18 17:02 Dose: Not Given Dapsone (Dapsone) 100 mg PO DAILY [facility] PRN Reason: Protocol Last Admin: 05/12/18 08:51 Dose: 100 mg Ergocalciferol (Drisdol 50,000 Intl Units Cap) 1 cap PO Q7D [facility] Last Admin: 05/07/18 11:41 Dose: 1 cap Finasteride (Proscar) 5 mg PO DAILY [facility] Last Admin: 05/12/18 08:51 Dose: 5 mg Fluticasone Propionate (Flonase) 1 spr [place] DAILY PRN PRN Reason: Nasal congestion Metoprolol Succinate (Toprol Xl) 50 mg PO Q12 [facility] Last Admin: 05/12/18 20:48 Dose: 50 mg Pantoprazole Sodium (Protonix Ec Tab) 40 mg PO DAILY [facility] Last Admin: 05/12/18 08:51 Dose: 40 mg Prednisone (Prednisone Tab) 40 mg PO DAILY [facility] Last Admin: 05/12/18 08:51 Dose: 40 mg Tamsulosin HCl (Flomax) 0.4 mg PO DAILY [facility] Last Admin: 05/12/18 08:50 Dose: 0.4 mg Vitamin B Complex/Vit C/Folic Acid (Nephro-Jj) 1 tab PO DAILY [facility] Last Admin: 05/12/18 08:50 Dose: 1 tab - Labs Labs: 05/13/18 04:20 05/12/18 04:30 PT 11.8 Seconds (9.8-13.1) 05/13/18 04:20 INR 1.1 05/13/18 04:20 APTT 28.4 Seconds (25.6-37.1) 05/13/18 04:20 - Constitutional Appears: Well, No Acute Distress - Eye Exam Eye Exam: EOMI - Respiratory Exam Respiratory Exam: NORMAL BREATHING PATTERN - Cardiovascular Exam Cardiovascular Exam: +S1, +S2 - GI/Abdominal Exam GI & Abdominal Exam: Soft, Normal Bowel Sounds. absent: Tenderness - Neurological Exam Neurological Exam: Alert, Awake, CN II-XII Intact, Oriented x3 - Psychiatric Exam Psychiatric exam: Normal Affect, Normal Mood Assessment and Plan - Assessment and Plan (Free Text) Plan: Nephro: Dr. Bernabe: pulse/po steroids. Rituximab, plasmaphoresis and continue HD Heme: Dr. Armas: Amicar monitor H/H; transfusion support Consider options discussed prior such as radiotherapy Continue with care plan as ordered case dw Dr. Noman Perry MD PGY2 <Hans Tineo - Last Filed: 05/14/18 21:06> Objective - Vital Signs/Intake and Output Vital Signs (last 24 hours): Temp Pulse Resp BP Pulse Ox 98.6 F 92 H 16 135/79 95 05/14/18 19:07 05/14/18 19:07 05/14/18 19:07 05/14/18 19:07 05/14/18 19:07 - Medications Medications: Current Medications Acetaminophen (Tylenol 325mg Tab) 650 mg PO Q4 PRN PRN Reason: Fever >100.4 F Acetaminophen (Tylenol 325mg Tab) 650 mg PO Q4 PRN PRN Reason: Pain, Mild (1-3) Bacitracin (Bacitracin Oint) 1 applic TP DAILY [facility] Last Admin: 05/14/18 09:34 Dose: 1 applic Calcium Acetate (Phoslo) 667 mg PO TID [facility] Last Admin: 05/14/18 17:34 Dose: 667 mg Dapsone (Dapsone) 100 mg PO DAILY [facility] PRN Reason: Protocol Last Admin: 05/14/18 14:00 Dose: 100 mg Ergocalciferol (Drisdol 50,000 Intl Units Cap) 1 cap PO Q7D [facility] Last Admin: 05/14/18 14:01 Dose: 1 cap Finasteride (Proscar) 5 mg PO DAILY [facility] Last Admin: 05/14/18 14:03 Dose: 5 mg Fluticasone Propionate (Flonase) 1 spr [place] DAILY PRN PRN Reason: Nasal congestion Metoprolol Succinate (Toprol Xl) 50 mg PO Q12 [facility] Last Admin: 05/14/18 14:04 Dose: 50 mg Pantoprazole Sodium (Protonix Ec Tab) 40 mg PO DAILY [facility] Last Admin: 05/14/18 14:03 Dose: 40 mg Prednisone (Prednisone Tab) 40 mg PO DAILY [facility] Last Admin: 05/14/18 14:02 Dose: 40 mg Tamsulosin HCl (Flomax) 0.4 mg PO DAILY [facility] Last Admin: 05/14/18 14:01 Dose: 0.4 mg Vitamin B Complex/Vit C/Folic Acid (Nephro-Jj) 1 tab PO DAILY [facility] Last Admin: 05/14/18 14:01 Dose: 1 tab - Labs Labs: 05/14/18 04:35 05/12/18 04:30 PT 11.8 Seconds (9.8-13.1) 05/13/18 04:20 INR 1.1 05/13/18 04:20 APTT 28.4 Seconds (25.6-37.1) 05/13/18 04:20 Assessment and Plan - Assessment and Plan (Free Text) Plan: Patient was personally seen and examined by me in rounds with residents. Available labs and diagnostic data reviewed. Case, Patient's condition and management plan discussed with residents in rounds. Agree with resident's progress note. Plan: As ordered.
--- NOTE | 2018-05-13 09:13 | CP.PCM.PN ---
Subjective - Date & Time of Evaluation Date of Evaluation: 05/13/18 Time of Evaluation: 09:13 - Subjective Subjective: patient sitting up in bed awake conscious feeling much better no nausea no vomiting no chest pain Objective - Vital Signs/Intake and Output Vital Signs (last 24 hours): Temp Pulse Resp BP Pulse Ox 98.0 F 79 20 141/72 97 05/13/18 08:30 05/13/18 08:30 05/13/18 08:30 05/13/18 08:30 05/13/18 08:30 Intake and Output: 05/13/18 05/13/18 06:59 18:59 Intake Total 320 Output Total 2000 Balance -1680 - Medications Medications: Current Medications Acetaminophen (Tylenol 325mg Tab) 650 mg PO Q4 PRN PRN Reason: Fever >100.4 F Acetaminophen (Tylenol 325mg Tab) 650 mg PO Q4 PRN PRN Reason: Pain, Mild (1-3) Bacitracin (Bacitracin Oint) 1 applic TP DAILY [facility] Last Admin: 05/12/18 08:51 Dose: 1 applic Calcium Acetate (Phoslo) 667 mg PO TID [facility] Last Admin: 05/12/18 17:02 Dose: Not Given Dapsone (Dapsone) 100 mg PO DAILY [facility] PRN Reason: Protocol Last Admin: 05/12/18 08:51 Dose: 100 mg Ergocalciferol (Drisdol 50,000 Intl Units Cap) 1 cap PO Q7D [facility] Last Admin: 05/07/18 11:41 Dose: 1 cap Finasteride (Proscar) 5 mg PO DAILY [facility] Last Admin: 05/12/18 08:51 Dose: 5 mg Fluticasone Propionate (Flonase) 1 spr [place] DAILY PRN PRN Reason: Nasal congestion Metoprolol Succinate (Toprol Xl) 50 mg PO Q12 [facility] Last Admin: 05/12/18 20:48 Dose: 50 mg Pantoprazole Sodium (Protonix Ec Tab) 40 mg PO DAILY [facility] Last Admin: 05/12/18 08:51 Dose: 40 mg Prednisone (Prednisone Tab) 40 mg PO DAILY [facility] Last Admin: 05/12/18 08:51 Dose: 40 mg Tamsulosin HCl (Flomax) 0.4 mg PO DAILY [facility] Last Admin: 05/12/18 08:50 Dose: 0.4 mg Vitamin B Complex/Vit C/Folic Acid (Nephro-Jj) 1 tab PO DAILY [facility] Last Admin: 05/12/18 08:50 Dose: 1 tab - Labs Labs: 05/13/18 04:20 05/12/18 04:30 PT 11.8 Seconds (9.8-13.1) 05/13/18 04:20 INR 1.1 05/13/18 04:20 APTT 28.4 Seconds (25.6-37.1) 05/13/18 04:20 - Constitutional Appears: No Acute Distress - Eye Exam Eye Exam: Conjunctival injection - ENT Exam ENT Exam: Mucous Membranes Moist - Neck Exam Neck Exam: absent: Lymphadenopathy - Respiratory Exam Respiratory Exam: absent: Chest Wall Tenderness - GI/Abdominal Exam GI & Abdominal Exam: Soft, Normal Bowel Sounds - Extremities Exam Extremities Exam: absent: Calf Tenderness - Back Exam Back Exam: absent: CVA tenderness (L), CVA tenderness (R) - Neurological Exam Neurological Exam: Alert - Psychiatric Exam Psychiatric exam: Normal Affect - Skin Skin Exam: absent: Cyanosis Assessment and Plan (1) ESRD (end stage renal disease) on dialysis Assessment & Plan: Assessment & Plan: 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 Also for history when the patient was diagnosed with the above diagnosis he has a following treatment Pulses steroid for 3 days Rituximab 1 g twice 4 weeks apart Oral steroid Plasma phoresis And the patient continued to need dialysis Status: Acute
[2018-05-13] MEDS: Bacitracin OINT 15GM TP SCH (09:14)
[2018-05-13] MEDS: Multivitamin Vitamin B Complex (Nephro-Vite) Tab PO SCH (09:19)
[2018-05-13] MEDS: Metoprolol Succinate 50 mg XL Tab PO SCH ×2 (09:37→21:38)
[2018-05-13] MEDS: Pantoprazole 40 mg EC Tab PO SCH (09:37)
[2018-05-13] MEDS ORDERED: Aminocaproic Acid 5,000 MG in Dextrose 5% In Water 250 ML IV ONE (10:15)
[2018-05-13] MEDS ORDERED: DEXTROSE 5% IV ONE ×2 (12:17→12:18)
[2018-05-13] MEDS ORDERED: WATER IV ONE ×2 (12:17→12:18)
[2018-05-13] MEDS ORDERED: AMINOCAPROIC ACID IV ONE ×2 (12:17→12:18)
[2018-05-14 05:39] LABS: HEMOGLOBIN 8.7 g/dL (12.0-18.0); MEAN CELL VOLUME 93.6 fl (80.0-94.0); MEAN CORPUSCULAR HEMOGLOBIN 31.4 pg (27.0-31.0); MEAN CORPUSCULAR HGB CONC 33.6 g/dL (33.0-37.0); RBC 2.78 Mil/uL (4.40-5.90); RED CELL DISTRIBUTION WIDTH 15.3 % (11.5-14.5); WHITE BLOOD COUNT 9.2 K/uL (4.8-10.8)
[2018-05-14] MEDS: Bacitracin OINT 15GM TP SCH (09:34)
--- NOTE | 2018-05-14 13:42 | CP.PCM.PN ---
Subjective - Date & Time of Evaluation Date of Evaluation: 05/14/18 Time of Evaluation: 10:07 - Subjective Subjective: S: seen on HD o: lungs: reduced bs b/l lower lbos ext: edema 2+ imp: ESRD/ anca vasculitis/ hypertension plan: seen on HD uf goal 2-3 kg Objective - Vital Signs/Intake and Output Vital Signs (last 24 hours): Temp Pulse Resp BP Pulse Ox 97.7 F 91 H 18 126/71 98 05/14/18 12:19 05/14/18 12:19 05/14/18 12:19 05/14/18 12:19 05/14/18 12:19 Intake and Output: 05/14/18 05/14/18 06:59 18:59 Intake Total 597 Balance 597 - Medications Medications: Current Medications Acetaminophen (Tylenol 325mg Tab) 650 mg PO Q4 PRN PRN Reason: Fever >100.4 F Acetaminophen (Tylenol 325mg Tab) 650 mg PO Q4 PRN PRN Reason: Pain, Mild (1-3) Bacitracin (Bacitracin Oint) 1 applic TP DAILY [facility] Last Admin: 05/13/18 09:14 Dose: 1 applic Calcium Acetate (Phoslo) 667 mg PO TID [facility] Last Admin: 05/13/18 16:46 Dose: 667 mg Dapsone (Dapsone) 100 mg PO DAILY [facility] PRN Reason: Protocol Last Admin: 05/13/18 09:15 Dose: 100 mg Ergocalciferol (Drisdol 50,000 Intl Units Cap) 1 cap PO Q7D [facility] Last Admin: 05/07/18 11:41 Dose: 1 cap Finasteride (Proscar) 5 mg PO DAILY [facility] Last Admin: 05/13/18 09:37 Dose: 5 mg Fluticasone Propionate (Flonase) 1 spr [place] DAILY PRN PRN Reason: Nasal congestion Metoprolol Succinate (Toprol Xl) 50 mg PO Q12 [facility] Last Admin: 05/13/18 21:38 Dose: 50 mg Pantoprazole Sodium (Protonix Ec Tab) 40 mg PO DAILY [facility] Last Admin: 05/13/18 09:37 Dose: 40 mg Prednisone (Prednisone Tab) 40 mg PO DAILY [facility] Last Admin: 05/13/18 09:19 Dose: 40 mg Tamsulosin HCl (Flomax) 0.4 mg PO DAILY [facility] Last Admin: 05/13/18 09:18 Dose: 0.4 mg Vitamin B Complex/Vit C/Folic Acid (Nephro-Jj) 1 tab PO DAILY [facility] Last Admin: 05/13/18 09:19 Dose: 1 tab - Labs Labs: 05/14/18 04:35 05/12/18 04:30 PT 11.8 Seconds (9.8-13.1) 05/13/18 04:20 INR 1.1 05/13/18 04:20 APTT 28.4 Seconds (25.6-37.1) 05/13/18 04:20
[2018-05-14] MEDS: Multivitamin Vitamin B Complex (Nephro-Vite) Tab PO SCH (14:01)
[2018-05-14] MEDS: Ergocalciferol 50,000 Intl Units Cap PO SCH (14:01)
[2018-05-14] MEDS: Pantoprazole 40 mg EC Tab PO SCH (14:03)
[2018-05-14] MEDS: Metoprolol Succinate 50 mg XL Tab PO SCH ×2 (14:04→21:16)
[2018-05-15 04:55] LABS: HEMOGLOBIN 8.8 g/dL (12.0-18.0); RBC 2.75 Mil/uL (4.40-5.90); RED CELL DISTRIBUTION WIDTH 15.2 % (11.5-14.5); WHITE BLOOD COUNT 8.7 K/uL (4.8-10.8)
[2018-05-15 05:03] LABS: ALB/GLOB RATIO 0.9 (1.0-2.1); ALBUMIN 2.1 g/dL (3.5-5.0); CALCIUM 7.7 mg/dL (8.4-10.2)
[2018-05-15] MEDS: Bacitracin OINT 15GM TP SCH (09:06)
[2018-05-15] MEDS: Multivitamin Vitamin B Complex (Nephro-Vite) Tab PO SCH (09:11)
[2018-05-15] MEDS: Metoprolol Succinate 50 mg XL Tab PO SCH ×2 (09:12→21:12)
[2018-05-15] MEDS: Pantoprazole 40 mg EC Tab PO SCH (09:12)
--- NOTE | 2018-05-15 11:16 | PN ---
DATE: 05/15/2018 SUBJECTIVE: The patient seen and examined. Interim events noted. The patient remains in Progressive Care Unit, on telemetry monitoring. Sleepy, arousable, feels okay. Denies any specific complaint of chest pain, shortness of breath, or any urinary symptoms. No blood in the urine. PHYSICAL EXAMINATION: GENERAL: The patient is in no acute distress. VITAL SIGNS: Stable. HEART: Examined. S1, S2 normal and regular. LUNGS: Good bilateral air exchange. ABDOMEN: Soft, nontender. EXTREMITIES: No edema. No calf swelling. No tenderness. No acute ischemia. 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 DIAGNOSTIC DATA: Available diagnostic data reviewed. Telemetry monitoring does not reveal significant arrhythmias. ASSESSMENT AND PLAN: Overall, the patient's general medical condition is stable. Hemoglobin is stable at 8.8. Plan as ordered. Hans Tineo MD
[2018-05-15] MEDS ORDERED: DEXTROSE 5% IV ONE ×2 (15:00→17:15)
[2018-05-15] MEDS ORDERED: WATER IV ONE ×2 (15:00→17:15)
[2018-05-15] MEDS ORDERED: AMINOCAPROIC ACID IV ONE ×2 (15:00→17:15)
--- NOTE | 2018-05-15 19:59 | CP.PCM.PN ---
Subjective - Date & Time of Evaluation Date of Evaluation: 05/13/18 Time of Evaluation: 11:00 - Subjective Subjective: No complaints, pink tinged urine to restart Amicar drip x 24 hrs. Objective - Vital Signs/Intake and Output Vital Signs (last 24 hours): Temp Pulse Resp BP Pulse Ox 98.0 F 90 16 117/73 96 05/15/18 19:40 05/15/18 19:40 05/15/18 19:40 05/15/18 19:40 05/15/18 19:40 Intake and Output: 05/15/18 05/16/18 18:59 06:59 Intake Total 1041 Balance 1041 - Medications Medications: Current Medications Acetaminophen (Tylenol 325mg Tab) 650 mg PO Q4 PRN PRN Reason: Fever >100.4 F Acetaminophen (Tylenol 325mg Tab) 650 mg PO Q4 PRN PRN Reason: Pain, Mild (1-3) Bacitracin (Bacitracin Oint) 1 applic TP DAILY [facility] Last Admin: 05/15/18 09:06 Dose: 1 applic Calcium Acetate (Phoslo) 667 mg PO TID [facility] Last Admin: 05/15/18 16:10 Dose: 667 mg Ergocalciferol (Drisdol 50,000 Intl Units Cap) 1 cap PO Q7D [facility] Last Admin: 05/14/18 14:01 Dose: 1 cap Finasteride (Proscar) 5 mg PO DAILY [facility] Last Admin: 05/15/18 09:12 Dose: 5 mg Fluticasone Propionate (Flonase) 1 spr [place] DAILY PRN PRN Reason: Nasal congestion Aminocaproic Acid 10,000 mg/ (Dextrose) 500 mls @ 20.833 mls/hr IV ONCE ONE Stop: 05/16/18 17:14 Last Admin: 05/15/18 17:18 Dose: 20.833 mls/hr Metoprolol Succinate (Toprol Xl) 50 mg PO Q12 [facility] Last Admin: 05/15/18 09:12 Dose: 50 mg Pantoprazole Sodium (Protonix Ec Tab) 40 mg PO DAILY [facility] Last Admin: 05/15/18 09:12 Dose: 40 mg Prednisone (Prednisone Tab) 40 mg PO DAILY [facility] Last Admin: 05/15/18 09:11 Dose: 40 mg Tamsulosin HCl (Flomax) 0.4 mg PO DAILY [facility] Last Admin: 05/15/18 09:10 Dose: 0.4 mg Vitamin B Complex/Vit C/Folic Acid (Nephro-Jj) 1 tab PO DAILY [facility] Last Admin: 05/15/18 09:11 Dose: 1 tab - Labs Labs: 05/15/18 04:10 05/15/18 04:10 PT 11.8 Seconds (9.8-13.1) 05/13/18 04:20 INR 1.1 05/13/18 04:20 APTT 28.4 Seconds (25.6-37.1) 05/13/18 04:20 - Head Exam Head Exam: ATRAUMATIC - Eye Exam Eye Exam: Normal appearance - ENT Exam ENT Exam: Mucous Membranes Dry - Respiratory Exam Respiratory Exam: NORMAL BREATHING PATTERN - Cardiovascular Exam Cardiovascular Exam: +S1, +S2 - GI/Abdominal Exam GI & Abdominal Exam: Normal Bowel Sounds - Extremities Exam Extremities Exam: Pedal Edema Assessment and Plan (1) Hematuria Assessment & Plan: to restart Amicar today repeat coags and fibrinogen Status: Acute (2) Anemia Assessment & Plan: hematuria chronic disease anemia of CKD on MENG transfusion support PRN Status: Acute (3) Prostate cancer Assessment & Plan: outpatient treatment Status: Acute
--- NOTE | 2018-05-15 20:01 | CP.PCM.PN ---
Subjective - Date & Time of Evaluation Date of Evaluation: 05/14/18 Time of Evaluation: 15:00 - Subjective Subjective: No complaints. Objective - Vital Signs/Intake and Output Vital Signs (last 24 hours): Temp Pulse Resp BP Pulse Ox 98.0 F 90 16 117/73 96 05/15/18 19:40 05/15/18 19:40 05/15/18 19:40 05/15/18 19:40 05/15/18 19:40 Intake and Output: 05/15/18 05/16/18 18:59 06:59 Intake Total 1041 Balance 1041 - Medications Medications: Current Medications Acetaminophen (Tylenol 325mg Tab) 650 mg PO Q4 PRN PRN Reason: Fever >100.4 F Acetaminophen (Tylenol 325mg Tab) 650 mg PO Q4 PRN PRN Reason: Pain, Mild (1-3) Bacitracin (Bacitracin Oint) 1 applic TP DAILY [facility] Last Admin: 05/15/18 09:06 Dose: 1 applic Calcium Acetate (Phoslo) 667 mg PO TID [facility] Last Admin: 05/15/18 16:10 Dose: 667 mg Ergocalciferol (Drisdol 50,000 Intl Units Cap) 1 cap PO Q7D [facility] Last Admin: 05/14/18 14:01 Dose: 1 cap Finasteride (Proscar) 5 mg PO DAILY [facility] Last Admin: 05/15/18 09:12 Dose: 5 mg Fluticasone Propionate (Flonase) 1 spr [place] DAILY PRN PRN Reason: Nasal congestion Aminocaproic Acid 10,000 mg/ (Dextrose) 500 mls @ 20.833 mls/hr IV ONCE ONE Stop: 05/16/18 17:14 Last Admin: 05/15/18 17:18 Dose: 20.833 mls/hr Metoprolol Succinate (Toprol Xl) 50 mg PO Q12 [facility] Last Admin: 05/15/18 09:12 Dose: 50 mg Pantoprazole Sodium (Protonix Ec Tab) 40 mg PO DAILY [facility] Last Admin: 05/15/18 09:12 Dose: 40 mg Prednisone (Prednisone Tab) 40 mg PO DAILY [facility] Last Admin: 05/15/18 09:11 Dose: 40 mg Tamsulosin HCl (Flomax) 0.4 mg PO DAILY [facility] Last Admin: 05/15/18 09:10 Dose: 0.4 mg Vitamin B Complex/Vit C/Folic Acid (Nephro-Jj) 1 tab PO DAILY [facility] Last Admin: 05/15/18 09:11 Dose: 1 tab - Labs Labs: 05/15/18 04:10 05/15/18 04:10 PT 11.8 Seconds (9.8-13.1) 05/13/18 04:20 INR 1.1 05/13/18 04:20 APTT 28.4 Seconds (25.6-37.1) 05/13/18 04:20 - Head Exam Head Exam: ATRAUMATIC - Eye Exam Eye Exam: Normal appearance - ENT Exam ENT Exam: Mucous Membranes Dry - Respiratory Exam Respiratory Exam: NORMAL BREATHING PATTERN - Cardiovascular Exam Cardiovascular Exam: +S1, +S2 - GI/Abdominal Exam GI & Abdominal Exam: Normal Bowel Sounds Assessment and Plan (1) Hematuria Assessment & Plan: s/p Amicar repeat coags and fibrinogen Status: Acute (2) Anemia Assessment & Plan: hematuria chronic disease anemia of CKD on MENG transfusion support PRN Status: Acute (3) Prostate cancer Assessment & Plan: outpatient treatment Status: Acute
--- NOTE | 2018-05-15 20:03 | CP.PCM.PN ---
Subjective - Date & Time of Evaluation Date of Evaluation: 05/15/18 Time of Evaluation: 13:00 - Subjective Subjective: Hematuria restarted; urine noted by nursing to be pink Objective - Vital Signs/Intake and Output Vital Signs (last 24 hours): Temp Pulse Resp BP Pulse Ox 98.0 F 90 16 117/73 96 05/15/18 19:40 05/15/18 19:40 05/15/18 19:40 05/15/18 19:40 05/15/18 19:40 Intake and Output: 05/15/18 05/16/18 18:59 06:59 Intake Total 1041 Balance 1041 - Medications Medications: Current Medications Acetaminophen (Tylenol 325mg Tab) 650 mg PO Q4 PRN PRN Reason: Fever >100.4 F Acetaminophen (Tylenol 325mg Tab) 650 mg PO Q4 PRN PRN Reason: Pain, Mild (1-3) Bacitracin (Bacitracin Oint) 1 applic TP DAILY [facility] Last Admin: 05/15/18 09:06 Dose: 1 applic Calcium Acetate (Phoslo) 667 mg PO TID [facility] Last Admin: 05/15/18 16:10 Dose: 667 mg Ergocalciferol (Drisdol 50,000 Intl Units Cap) 1 cap PO Q7D [facility] Last Admin: 05/14/18 14:01 Dose: 1 cap Finasteride (Proscar) 5 mg PO DAILY [facility] Last Admin: 05/15/18 09:12 Dose: 5 mg Fluticasone Propionate (Flonase) 1 spr [facility] DAILY PRN PRN Reason: Nasal congestion Aminocaproic Acid 10,000 mg/ (Dextrose) 500 mls @ 20.833 mls/hr IV ONCE ONE Stop: 05/16/18 17:14 Last Admin: 05/15/18 17:18 Dose: 20.833 mls/hr Metoprolol Succinate (Toprol Xl) 50 mg PO Q12 [facility] Last Admin: 05/15/18 09:12 Dose: 50 mg Pantoprazole Sodium (Protonix Ec Tab) 40 mg PO DAILY [facility] Last Admin: 05/15/18 09:12 Dose: 40 mg Prednisone (Prednisone Tab) 40 mg PO DAILY [facility] Last Admin: 05/15/18 09:11 Dose: 40 mg Tamsulosin HCl (Flomax) 0.4 mg PO DAILY [facility] Last Admin: 05/15/18 09:10 Dose: 0.4 mg Vitamin B Complex/Vit C/Folic Acid (Nephro-Jj) 1 tab PO DAILY [facility] Last Admin: 05/15/18 09:11 Dose: 1 tab - Labs Labs: 05/15/18 04:10 05/15/18 04:10 PT 11.8 Seconds (9.8-13.1) 05/13/18 04:20 INR 1.1 05/13/18 04:20 APTT 28.4 Seconds (25.6-37.1) 05/13/18 04:20 - Head Exam Head Exam: ATRAUMATIC - Eye Exam Pupil Exam: NORMAL ACCOMODATION - ENT Exam ENT Exam: Mucous Membranes Dry - Respiratory Exam Respiratory Exam: NORMAL BREATHING PATTERN - Cardiovascular Exam Cardiovascular Exam: +S1, +S2 - GI/Abdominal Exam GI & Abdominal Exam: Normal Bowel Sounds Assessment and Plan (1) Hematuria Assessment & Plan: to restart Amicar today repeat coags and fibrinogen H/H stable Status: Acute (2) Anemia Assessment & Plan: hematuria chronic disease anemia of CKD on MENG transfusion support PRN Status: Acute (3) Prostate cancer Assessment & Plan: outpatient treatment Status: Acute
[2018-05-16 05:28] LABS: HEMOGLOBIN 8.4 g/dL (12.0-18.0); MEAN CELL VOLUME 94.3 fl (80.0-94.0); MEAN CORPUSCULAR HEMOGLOBIN 31.2 pg (27.0-31.0); MEAN CORPUSCULAR HGB CONC 33.1 g/dL (33.0-37.0); RBC 2.68 Mil/uL (4.40-5.90); RED CELL DISTRIBUTION WIDTH 15.2 % (11.5-14.5); WHITE BLOOD COUNT 10.3 K/uL (4.8-10.8)
[2018-05-16 05:42] LABS: PROTHROMBIN TIME 11.3 Seconds (9.8-13.1)
[2018-05-16 05:44] LABS: PARTIAL THROMBOPLASTIN TIME 26.7 Seconds (25.6-37.1)
[2018-05-16 06:05] LABS: ALB/GLOB RATIO 0.9 (1.0-2.1); CALCIUM 7.7 mg/dL (8.4-10.2)
--- NOTE | 2018-05-16 08:30 | PN ---
DATE: 05/14/2018 SUBJECTIVE: The patient seen and examined. Interim events noted. Consults noted and appreciated. The patient remains in progressive care unit, on telemetry monitoring. The patient feels okay. Denies any complaint. No chest pain. No shortness of breath. No urinary symptoms, specifically no blood in urine. No dizziness and no loss of consciousness. PHYSICAL EXAMINATION: GENERAL: The patient is in no acute distress. VITAL SIGNS: Stable. HEART: S1 and S2, normal and regular. LUNGS: Good bilateral air exchange. ABDOMEN: Soft and nontender. EXTREMITIES: No edema. No calf swelling. No tenderness. No acute ischemia. GENERAL SUPERINTENDENT: Exam is essentially unchanged. DIAGNOSTIC DATA: Available diagnostic data reviewed. Hemoglobin is 9 and stable. ASSESSMENT AND PLAN: Overall, the patient's general medical condition is stable. Does not seem to be actively bleeding. Plan as ordered. Telemetry monitoring does not reveal significant arrhythmias. Hans Tineo MD
[2018-05-16] MEDS: Bacitracin OINT 15GM TP SCH (09:49)
[2018-05-16] MEDS: Metoprolol Succinate 50 mg XL Tab PO SCH ×2 (09:49→21:19)
[2018-05-16] MEDS: Multivitamin Vitamin B Complex (Nephro-Vite) Tab PO SCH (09:49)
[2018-05-16] MEDS: Pantoprazole 40 mg EC Tab PO SCH (09:50)
--- NOTE | 2018-05-16 10:24 | CP.PCM.PN ---
Subjective - Date & Time of Evaluation Date of Evaluation: 05/16/18 Time of Evaluation: 10:23 - Subjective Subjective: awake and conscious patient feeling good no nausea no vomiting Objective - Vital Signs/Intake and Output Vital Signs (last 24 hours): Temp Pulse Resp BP Pulse Ox 98 F 80 18 133/74 97 05/16/18 08:44 05/16/18 09:49 05/16/18 08:44 05/16/18 09:49 05/16/18 08:44 - Medications Medications: Current Medications Acetaminophen (Tylenol 325mg Tab) 650 mg PO Q4 PRN PRN Reason: Fever >100.4 F Acetaminophen (Tylenol 325mg Tab) 650 mg PO Q4 PRN PRN Reason: Pain, Mild (1-3) Bacitracin (Bacitracin Oint) 1 applic TP DAILY [facility] Last Admin: 05/16/18 09:49 Dose: 1 applic Calcium Acetate (Phoslo) 667 mg PO TID [facility] Last Admin: 05/16/18 09:49 Dose: 667 mg Dapsone (Dapsone) 100 mg PO DAILY [facility] PRN Reason: Protocol Ergocalciferol (Drisdol 50,000 Intl Units Cap) 1 cap PO Q7D [facility] Last Admin: 05/14/18 14:01 Dose: 1 cap Finasteride (Proscar) 5 mg PO DAILY [facility] Last Admin: 05/16/18 09:51 Dose: 5 mg Fluticasone Propionate (Flonase) 1 spr [place] DAILY PRN PRN Reason: Nasal congestion Aminocaproic Acid 10,000 mg/ (Dextrose) 500 mls @ 20.833 mls/hr IV ONCE ONE Stop: 05/16/18 17:14 Last Admin: 05/15/18 17:18 Dose: 20.833 mls/hr Metoprolol Succinate (Toprol Xl) 50 mg PO Q12 [facility] Last Admin: 05/16/18 09:49 Dose: 50 mg Pantoprazole Sodium (Protonix Ec Tab) 40 mg PO DAILY [facility] Last Admin: 05/16/18 09:50 Dose: 40 mg Prednisone (Prednisone Tab) 40 mg PO DAILY [facility] Last Admin: 05/16/18 09:50 Dose: 40 mg Tamsulosin HCl (Flomax) 0.4 mg PO DAILY [facility] Last Admin: 05/16/18 09:49 Dose: 0.4 mg Vitamin B Complex/Vit C/Folic Acid (Nephro-Jj) 1 tab PO DAILY [facility] Last Admin: 05/16/18 09:49 Dose: 1 tab - Labs Labs: 05/16/18 04:45 05/16/18 04:45 PT 11.3 Seconds (9.8-13.1) 05/16/18 04:45 INR 1.0 05/16/18 04:45 APTT 26.7 Seconds (25.6-37.1) 05/16/18 04:45 - Constitutional Appears: No Acute Distress - ENT Exam ENT Exam: Mucous Membranes Moist - Neck Exam Neck Exam: absent: Lymphadenopathy - GI/Abdominal Exam GI & Abdominal Exam: Soft, Normal Bowel Sounds - Extremities Exam Extremities Exam: absent: Calf Tenderness - Back Exam Back Exam: absent: CVA tenderness (L), CVA tenderness (R) - Neurological Exam Neurological Exam: Alert - Psychiatric Exam Psychiatric exam: Normal Affect - Skin Skin Exam: absent: Cyanosis Assessment and Plan (1) ESRD (end stage renal disease) on dialysis Assessment & Plan: 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) gross hematuria which is significantly improving severe anemia prostatic CA the plan hemodialysis as scheduled for tomorrow kidney monitoring hemoglobin has been dropping slowly Also for history when the patient was diagnosed with the above diagnosis he has a following treatment Pulses steroid for 3 days Rituximab 1 g twice . 4 weeks apart Oral steroid Plasma phoresis And the patient continued to need dialysis Status: Acute
[2018-05-16] MEDS ORDERED: WATER IV ONE (18:39)
[2018-05-16] MEDS ORDERED: AMINOCAPROIC ACID IV ONE (18:39)
[2018-05-16] MEDS ORDERED: DEXTROSE 5% IV ONE (18:39)
--- NOTE | 2018-05-16 19:29 | CP.PCM.PN ---
<CecilePhoebeJune Y - Last Filed: 05/16/18 19:24> Subjective - Date & Time of Evaluation Date of Evaluation: 05/16/18 Time of Evaluation: 17:25 - Subjective Subjective: no CP or SOB or dysuria Objective - Vital Signs/Intake and Output Vital Signs (last 24 hours): Temp Pulse Resp BP Pulse Ox 97.8 F 93 H 20 144/72 96 05/16/18 15:53 05/16/18 15:53 05/16/18 15:53 05/16/18 15:53 05/16/18 15:53 - Medications Medications: Current Medications Acetaminophen (Tylenol 325mg Tab) 650 mg PO Q4 PRN PRN Reason: Fever >100.4 F Acetaminophen (Tylenol 325mg Tab) 650 mg PO Q4 PRN PRN Reason: Pain, Mild (1-3) Bacitracin (Bacitracin Oint) 1 applic TP DAILY [facility] Last Admin: 05/16/18 09:49 Dose: 1 applic Calcium Acetate (Phoslo) 667 mg PO TID [facility] Last Admin: 05/16/18 17:12 Dose: 667 mg Dapsone (Dapsone) 100 mg PO DAILY [facility] PRN Reason: Protocol Ergocalciferol (Drisdol 50,000 Intl Units Cap) 1 cap PO Q7D [facility] Last Admin: 05/14/18 14:01 Dose: 1 cap Finasteride (Proscar) 5 mg PO DAILY [facility] Last Admin: 05/16/18 09:51 Dose: 5 mg Fluticasone Propionate (Flonase) 1 spr [place] DAILY PRN PRN Reason: Nasal congestion Aminocaproic Acid 10,000 mg/ (Dextrose) 500 mls @ 20.833 mls/hr IV ONCE ONE Stop: 05/17/18 18:38 Last Admin: 05/16/18 19:08 Dose: 20.833 mls/hr Metoprolol Succinate (Toprol Xl) 50 mg PO Q12 [facility] Last Admin: 05/16/18 09:49 Dose: 50 mg Pantoprazole Sodium (Protonix Ec Tab) 40 mg PO DAILY [facility] Last Admin: 05/16/18 09:50 Dose: 40 mg Prednisone (Prednisone Tab) 40 mg PO DAILY [facility] Last Admin: 05/16/18 09:50 Dose: 40 mg Tamsulosin HCl (Flomax) 0.4 mg PO DAILY [facility] Last Admin: 05/16/18 09:49 Dose: 0.4 mg Vitamin B Complex/Vit C/Folic Acid (Nephro-Jj) 1 tab PO DAILY [facility] Last Admin: 05/16/18 09:49 Dose: 1 tab - Labs Labs: 05/16/18 04:45 05/16/18 04:45 PT 11.3 Seconds (9.8-13.1) 05/16/18 04:45 INR 1.0 05/16/18 04:45 APTT 26.7 Seconds (25.6-37.1) 05/16/18 04:45 - Constitutional Appears: Well, No Acute Distress - Head Exam Head Exam: ATRAUMATIC - Eye Exam Eye Exam: Normal appearance Pupil Exam: NORMAL ACCOMODATION - ENT Exam ENT Exam: Mucous Membranes Moist - Neck Exam Neck Exam: Normal Inspection - Respiratory Exam Respiratory Exam: Clear to Ausculation Bilateral - Cardiovascular Exam Cardiovascular Exam: REGULAR RHYTHM - GI/Abdominal Exam GI & Abdominal Exam: Normal Bowel Sounds - Extremities Exam Extremities Exam: Full ROM, Normal Inspection - Back Exam Back Exam: NORMAL INSPECTION - Neurological Exam Neurological Exam: Alert, Awake, Oriented x3 - Psychiatric Exam Psychiatric exam: Normal Mood - Skin Skin Exam: Dry, Intact, Normal Color Assessment and Plan - Assessment and Plan (Free Text) Assessment: 77 y/o with ESRD, anemia of CKD, prostate CA with gross hematuria now significantly improving, continue with current medical management, GI DVT PPX <Tineo,Hans K - Last Filed: 05/17/18 10:45> Objective - Vital Signs/Intake and Output Vital Signs (last 24 hours): Temp Pulse Resp BP Pulse Ox 97.8 F 92 H 20 142/76 94 L 05/17/18 08:59 05/17/18 08:59 05/17/18 08:59 05/17/18 08:59 05/17/18 08:59 - Medications Medications: Current Medications Acetaminophen (Tylenol 325mg Tab) 650 mg PO Q4 PRN PRN Reason: Fever >100.4 F Acetaminophen (Tylenol 325mg Tab) 650 mg PO Q4 PRN PRN Reason: Pain, Mild (1-3) Bacitracin (Bacitracin Oint) 1 applic TP DAILY [facility] Last Admin: 05/17/18 08:41 Dose: 1 applic Calcium Acetate (Phoslo) 667 mg PO TID [facility] Last Admin: 05/17/18 08:42 Dose: 667 mg Dapsone (Dapsone) 100 mg PO DAILY [facility] PRN Reason: Protocol Last Admin: 05/17/18 08:41 Dose: 100 mg Ergocalciferol (Drisdol 50,000 Intl Units Cap) 1 cap PO Q7D [facility] Last Admin: 05/14/18 14:01 Dose: 1 cap Finasteride (Proscar) 5 mg PO DAILY [facility] Last Admin: 05/17/18 08:42 Dose: 5 mg Fluticasone Propionate (Flonase) 1 spr [place] DAILY PRN PRN Reason: Nasal congestion Aminocaproic Acid 10,000 mg/ (Dextrose) 500 mls @ 20.833 mls/hr IV ONCE ONE Stop: 05/17/18 18:38 Last Admin: 05/16/18 19:08 Dose: 20.833 mls/hr Metoprolol Succinate (Toprol Xl) 50 mg PO Q12 [facility] Last Admin: 05/16/18 21:19 Dose: 50 mg Pantoprazole Sodium (Protonix Ec Tab) 40 mg PO DAILY [facility] Last Admin: 05/17/18 08:42 Dose: 40 mg Prednisone (Prednisone Tab) 40 mg PO DAILY [facility] Last Admin: 05/17/18 08:42 Dose: 40 mg Tamsulosin HCl (Flomax) 0.4 mg PO DAILY [facility] Last Admin: 05/17/18 08:41 Dose: 0.4 mg Vitamin B Complex/Vit C/Folic Acid (Nephro-Jj) 1 tab PO DAILY [facility] Last Admin: 05/17/18 08:41 Dose: 1 tab - Labs Labs: 05/16/18 04:45 05/16/18 04:45 PT 11.3 Seconds (9.8-13.1) 05/16/18 04:45 INR 1.0 05/16/18 04:45 APTT 26.7 Seconds (25.6-37.1) 05/16/18 04:45 Assessment and Plan - Assessment and Plan (Free Text) Assessment: Patient was personally seen and examined by me in rounds with residents. Available labs and diagnostic data reviewed. Case, Patient's condition and management plan discussed with residents in rounds. Agree with resident's progress note. Plan: As ordered.
[2018-05-17] MEDS: Multivitamin Vitamin B Complex (Nephro-Vite) Tab PO SCH (08:41)
[2018-05-17] MEDS: Bacitracin OINT 15GM TP SCH (08:41)
[2018-05-17] MEDS: Pantoprazole 40 mg EC Tab PO SCH (08:42)
--- NOTE | 2018-05-17 09:08 | CP.PCM.PN ---
Subjective - Date & Time of Evaluation Date of Evaluation: 05/17/18 Time of Evaluation: 09:07 - Subjective Subjective: patient is conscious and alert not in acute distress. Patient is feeling good Objective - Vital Signs/Intake and Output Vital Signs (last 24 hours): Temp Pulse Resp BP Pulse Ox 97.8 F 92 H 20 142/76 94 L 05/17/18 08:59 05/17/18 08:59 05/17/18 08:59 05/17/18 08:59 05/17/18 08:59 - Medications Medications: Current Medications Acetaminophen (Tylenol 325mg Tab) 650 mg PO Q4 PRN PRN Reason: Fever >100.4 F Acetaminophen (Tylenol 325mg Tab) 650 mg PO Q4 PRN PRN Reason: Pain, Mild (1-3) Bacitracin (Bacitracin Oint) 1 applic TP DAILY [facility] Last Admin: 05/17/18 08:41 Dose: 1 applic Calcium Acetate (Phoslo) 667 mg PO TID [facility] Last Admin: 05/17/18 08:42 Dose: 667 mg Dapsone (Dapsone) 100 mg PO DAILY [facility] PRN Reason: Protocol Last Admin: 05/17/18 08:41 Dose: 100 mg Ergocalciferol (Drisdol 50,000 Intl Units Cap) 1 cap PO Q7D [facility] Last Admin: 05/14/18 14:01 Dose: 1 cap Finasteride (Proscar) 5 mg PO DAILY [facility] Last Admin: 05/17/18 08:42 Dose: 5 mg Fluticasone Propionate (Flonase) 1 spr [place] DAILY PRN PRN Reason: Nasal congestion Aminocaproic Acid 10,000 mg/ (Dextrose) 500 mls @ 20.833 mls/hr IV ONCE ONE Stop: 05/17/18 18:38 Last Admin: 05/16/18 19:08 Dose: 20.833 mls/hr Metoprolol Succinate (Toprol Xl) 50 mg PO Q12 [facility] Last Admin: 05/16/18 21:19 Dose: 50 mg Pantoprazole Sodium (Protonix Ec Tab) 40 mg PO DAILY [facility] Last Admin: 05/17/18 08:42 Dose: 40 mg Prednisone (Prednisone Tab) 40 mg PO DAILY [facility] Last Admin: 05/17/18 08:42 Dose: 40 mg Tamsulosin HCl (Flomax) 0.4 mg PO DAILY [facility] Last Admin: 05/17/18 08:41 Dose: 0.4 mg Vitamin B Complex/Vit C/Folic Acid (Nephro-Jj) 1 tab PO DAILY [facility] Last Admin: 05/17/18 08:41 Dose: 1 tab - Labs Labs: 05/16/18 04:45 05/16/18 04:45 PT 11.3 Seconds (9.8-13.1) 05/16/18 04:45 INR 1.0 05/16/18 04:45 APTT 26.7 Seconds (25.6-37.1) 05/16/18 04:45 - Constitutional Appears: No Acute Distress - ENT Exam ENT Exam: Mucous Membranes Moist - Neck Exam Neck Exam: absent: Lymphadenopathy - Respiratory Exam Respiratory Exam: NORMAL BREATHING PATTERN. 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) gross hematuria which is significantly improving severe anemia prostatic CA the plan Patient scheduled to have hemodialysis shortly And to be giving cryoprecipitate because of the continuation also bleeding from the urine As noted per hematology Antibiotics as per primary team Status: Acute
--- NOTE | 2018-05-17 10:03 | PN ---
DATE: 05/17/2018 SUBJECTIVE: The patient was seen and examined. Interim events noted. Consults noted and appreciated. Nephrology, Hematology, Oncology consult and intervention noted and appreciated. The patient remains in progressive care unit. reported being curing but the patient denies any specific complaint of chest pain, shortness of breath, urinary symptoms. PHYSICAL EXAMINATION: GENERAL: The patient is in no acute distress. VITAL SIGNS: Stable. No associated changes. HEART: S1, S2. Normal and regular. LUNGS: Good bilateral air exchange. ABDOMEN: Soft and nontender. EXTREMITIES: No edema. No calf swelling. No tenderness. No acute ischemia. INFORMATION DEVELOPER: Essentially unchanged. DIAGNOSTIC DATA: Available diagnostic data reviewed. Hemoglobin is 8.4. ASSESSMENT AND PLAN: Overall, the patient is medically stable. Plan as ordered. Hans Tineo MD
[2018-05-17] MEDS: Metoprolol Succinate 50 mg XL Tab PO SCH (21:00)
[2018-05-18] MEDS: Metoprolol Succinate 50 mg XL Tab PO SCH ×4 (00:41→21:44)
[2018-05-18 00:46] LABS: HEMOGLOBIN 8.7 g/dL (12.0-18.0); MEAN CELL VOLUME 94.2 fl (80.0-94.0); MEAN CORPUSCULAR HEMOGLOBIN 31.6 pg (27.0-31.0); MEAN CORPUSCULAR HGB CONC 33.5 g/dL (33.0-37.0); RBC 2.75 Mil/uL (4.40-5.90); RED CELL DISTRIBUTION WIDTH 15.5 % (11.5-14.5); WHITE BLOOD COUNT 9.5 K/uL (4.8-10.8)
[2018-05-18 01:09] LABS: ALB/GLOB RATIO 0.9 (1.0-2.1); ALBUMIN 2.3 g/dL (3.5-5.0); CALCIUM 7.8 mg/dL (8.4-10.2)
[2018-05-18] MEDS: Multivitamin Vitamin B Complex (Nephro-Vite) Tab PO SCH (08:59)
[2018-05-18] MEDS: Pantoprazole 40 mg EC Tab PO SCH (08:59)
[2018-05-18] MEDS: Bacitracin OINT 15GM TP SCH (09:00)
[2018-05-18] MEDS ORDERED: Desmopressin 4 mcg/ml Inj (10 ml) IV ONE (09:16)
[2018-05-18] MEDS ORDERED: Desmopressin 20 MCG in Sodium Chloride 0.9% 50 ML IV ONE (10:00)
--- NOTE | 2018-05-18 12:30 | CP.PCM.PN ---
Subjective - Date & Time of Evaluation Date of Evaluation: 05/18/18 Time of Evaluation: 12:29 - Subjective Subjective: patient conscious and alert feeling good Objective - Vital Signs/Intake and Output Vital Signs (last 24 hours): Temp Pulse Resp BP Pulse Ox 97.6 F 92 H 20 113/57 L 94 L 05/18/18 12:25 05/18/18 12:25 05/18/18 12:25 05/18/18 12:25 05/18/18 12:25 - Medications Medications: Current Medications Acetaminophen (Tylenol 325mg Tab) 650 mg PO Q4 PRN PRN Reason: Fever >100.4 F Acetaminophen (Tylenol 325mg Tab) 650 mg PO Q4 PRN PRN Reason: Pain, Mild (1-3) Bacitracin (Bacitracin Oint) 1 applic TP DAILY [facility] Last Admin: 05/18/18 09:00 Dose: Not Given Calcium Acetate (Phoslo) 667 mg PO TID [facility] Last Admin: 05/18/18 08:57 Dose: 667 mg Dapsone (Dapsone) 100 mg PO DAILY [facility] PRN Reason: Protocol Last Admin: 05/18/18 08:59 Dose: 100 mg Ergocalciferol (Drisdol 50,000 Intl Units Cap) 1 cap PO Q7D [facility] Last Admin: 05/14/18 14:01 Dose: 1 cap Finasteride (Proscar) 5 mg PO DAILY [facility] Last Admin: 05/18/18 08:59 Dose: 5 mg Fluticasone Propionate (Flonase) 1 spr [place] DAILY PRN PRN Reason: Nasal congestion Metoprolol Succinate (Toprol Xl) 50 mg PO Q12 [facility] Last Admin: 05/18/18 08:57 Dose: 50 mg Pantoprazole Sodium (Protonix Ec Tab) 40 mg PO DAILY [facility] Last Admin: 05/18/18 08:59 Dose: 40 mg Prednisone (Prednisone Tab) 40 mg PO DAILY [facility] Last Admin: 05/18/18 09:00 Dose: 40 mg Tamsulosin HCl (Flomax) 0.4 mg PO DAILY [facility] Last Admin: 05/18/18 08:59 Dose: 0.4 mg Vitamin B Complex/Vit C/Folic Acid (Nephro-Jj) 1 tab PO DAILY [facility] Last Admin: 05/18/18 08:59 Dose: 1 tab - Labs Labs: 05/18/18 00:15 05/18/18 00:15 PT 11.3 Seconds (9.8-13.1) 05/16/18 04:45 INR 1.0 05/16/18 04:45 APTT 26.7 Seconds (25.6-37.1) 05/16/18 04:45 - Constitutional Appears: No Acute Distress - Eye Exam Eye Exam: Conjunctival injection - ENT Exam ENT Exam: Mucous Membranes Moist - Neck Exam Neck Exam: absent: Lymphadenopathy - Respiratory Exam Respiratory Exam: NORMAL BREATHING PATTERN. 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) gross hematuria which is significantly improving severe anemia prostatic CA the plan continue hemodialysis as scheduled for tomorrow Patient need AV fistula when vascular surgery is available Status: Acute
--- NOTE | 2018-05-18 13:50 | CP.PCM.PN ---
<John Pruitt - Last Filed: 05/18/18 13:45> Subjective - Date & Time of Evaluation Date of Evaluation: 05/18/18 Time of Evaluation: 07:05 - Subjective Subjective: Pt seen and examined with Dr. Tineo at the bedside. No acute overnight events. Still has hematuria "spence colored". Pt has no complaints. Objective - Vital Signs/Intake and Output Vital Signs (last 24 hours): Temp Pulse Resp BP Pulse Ox 97.6 F 92 H 20 113/57 L 94 L 05/18/18 12:25 05/18/18 12:25 05/18/18 12:25 05/18/18 12:25 05/18/18 12:25 - Medications Medications: Current Medications Acetaminophen (Tylenol 325mg Tab) 650 mg PO Q4 PRN PRN Reason: Fever >100.4 F Acetaminophen (Tylenol 325mg Tab) 650 mg PO Q4 PRN PRN Reason: Pain, Mild (1-3) Bacitracin (Bacitracin Oint) 1 applic TP DAILY [facility] Last Admin: 05/18/18 09:00 Dose: Not Given Calcium Acetate (Phoslo) 667 mg PO TID [facility] Last Admin: 05/18/18 12:54 Dose: 667 mg Dapsone (Dapsone) 100 mg PO DAILY [facility] PRN Reason: Protocol Last Admin: 05/18/18 08:59 Dose: 100 mg Ergocalciferol (Drisdol 50,000 Intl Units Cap) 1 cap PO Q7D [facility] Last Admin: 05/14/18 14:01 Dose: 1 cap Finasteride (Proscar) 5 mg PO DAILY [facility] Last Admin: 05/18/18 08:59 Dose: 5 mg Fluticasone Propionate (Flonase) 1 spr [place] DAILY [facility] PRN Reason: Nasal congestion Metoprolol Succinate (Toprol Xl) 50 mg PO Q12 [facility] Last Admin: 05/18/18 08:57 Dose: 50 mg Pantoprazole Sodium (Protonix Ec Tab) 40 mg PO DAILY [facility] Last Admin: 05/18/18 08:59 Dose: 40 mg Prednisone (Prednisone Tab) 40 mg PO DAILY [facility] Last Admin: 05/18/18 09:00 Dose: 40 mg Tamsulosin HCl (Flomax) 0.4 mg PO DAILY [facility] Last Admin: 05/18/18 08:59 Dose: 0.4 mg Vitamin B Complex/Vit C/Folic Acid (Nephro-Jj) 1 tab PO DAILY [facility] Last Admin: 05/18/18 08:59 Dose: 1 tab - Labs Labs: 05/18/18 00:15 05/18/18 00:15 PT 11.3 Seconds (9.8-13.1) 05/16/18 04:45 INR 1.0 05/16/18 04:45 APTT 26.7 Seconds (25.6-37.1) 05/16/18 04:45 - Constitutional Appears: Well, No Acute Distress - Head Exam Head Exam: ATRAUMATIC, NORMAL INSPECTION - Eye Exam Eye Exam: Normal appearance - ENT Exam ENT Exam: Mucous Membranes Moist - Neck Exam Neck Exam: Full ROM - Respiratory Exam Respiratory Exam: Clear to Ausculation Bilateral - Cardiovascular Exam Cardiovascular Exam: REGULAR RHYTHM. absent: Murmur - GI/Abdominal Exam GI & Abdominal Exam: Soft, Normal Bowel Sounds. absent: Distended, Tenderness - Extremities Exam Extremities Exam: Normal Inspection - Neurological Exam Neurological Exam: Alert, Awake, Oriented x3 - Psychiatric Exam Psychiatric exam: Normal Mood - Skin Skin Exam: Dry, Normal Color, Warm Assessment and Plan (1) ESRD (end stage renal disease) on dialysis Status: Chronic (2) Hematuria Status: Acute - Assessment and Plan (Free Text) Assessment: 77 y/o M with a PMHx of ductal prostate cancer, ESRD, HTN, and Wageners Granulomatosis admitted due to gross hematuria at the [facility]. -Still has hematuria, improving -Hemoglobin stable at 8.7 -Nephrology on board: recommending IR for AVF creation. Venous mapping ordered and IR consulted. -Hematology on board: May need radiation. +2 Cryoprecipitate and Desmopressin Pt seen, examined, and case discussed with Dr. Tineo. John Pruitt, PGY2 <Hans Tineo - Last Filed: 05/21/18 05:53> Objective - Vital Signs/Intake and Output Vital Signs (last 24 hours): Temp Pulse Resp BP Pulse Ox 98.1 F 93 H 18 139/67 98 05/21/18 05:00 05/21/18 05:00 05/21/18 05:00 05/21/18 05:00 05/21/18 05:00 - Medications Medications: Current Medications Acetaminophen (Tylenol 325mg Tab) 650 mg PO Q4 PRN PRN Reason: Fever >100.4 F Acetaminophen (Tylenol 325mg Tab) 650 mg PO Q4 PRN PRN Reason: Pain, Mild (1-3) Bacitracin (Bacitracin Oint) 1 applic TP DAILY [facility] Last Admin: 05/20/18 08:49 Dose: 1 applic Calcium Acetate (Phoslo) 667 mg PO TID [facility] Last Admin: 05/20/18 16:49 Dose: 667 mg Dapsone (Dapsone) 100 mg PO DAILY [facility] PRN Reason: Protocol Last Admin: 05/20/18 08:37 Dose: 100 mg Ergocalciferol (Drisdol 50,000 Intl Units Cap) 1 cap PO Q7D [facility] Last Admin: 05/14/18 14:01 Dose: 1 cap Finasteride (Proscar) 5 mg PO DAILY [facility] Last Admin: 05/20/18 08:42 Dose: 5 mg Fluticasone Propionate (Flonase) 1 spr [facility] DAILY [facility] PRN Reason: Nasal congestion Aminocaproic Acid 24,000 mg/ (Dextrose) 1,000 mls @ 41.667 mls/hr IV ONCE ONE Stop: 05/21/18 15:29 Last Admin: 05/20/18 16:50 Dose: Not Given Metoprolol Succinate (Toprol Xl) 50 mg PO Q12 [facility] Last Admin: 05/20/18 21:46 Dose: Not Given Pantoprazole Sodium (Protonix Ec Tab) 40 mg PO DAILY [facility] Last Admin: 05/20/18 08:42 Dose: 40 mg Prednisone (Prednisone Tab) 40 mg PO DAILY [facility] Last Admin: 05/20/18 08:40 Dose: 40 mg Tamsulosin HCl (Flomax) 0.4 mg PO DAILY [facility] Last Admin: 05/20/18 08:39 Dose: 0.4 mg Vitamin B Complex/Vit C/Folic Acid (Nephro-Jj) 1 tab PO DAILY [facility] Last Admin: 05/20/18 08:39 Dose: 1 tab - Labs Labs: 05/20/18 13:02 05/18/18 00:15 PT 11.3 Seconds (9.8-13.1) 05/16/18 04:45 INR 1.0 05/16/18 04:45 APTT 26.7 Seconds (25.6-37.1) 05/16/18 04:45 Assessment and Plan - Assessment and Plan (Free Text) Assessment: Patient was personally seen and examined by me in rounds with residents. Available labs and diagnostic data reviewed. Case, Patient's condition and management plan discussed with residents in rounds. Agree with resident's progress note. Plan: As ordered.
--- NOTE | 2018-05-18 22:43 | CP.PCM.PN ---
Subjective - Date & Time of Evaluation Date of Evaluation: 05/16/18 Time of Evaluation: 11:00 - Subjective Subjective: Mild pink tinged urine Objective - Vital Signs/Intake and Output Vital Signs (last 24 hours): Temp Pulse Resp BP Pulse Ox 98.4 F 105 H 16 123/76 97 05/18/18 19:30 05/18/18 19:30 05/18/18 19:30 05/18/18 19:30 05/18/18 19:30 - Medications Medications: Current Medications Acetaminophen (Tylenol 325mg Tab) 650 mg PO Q4 PRN PRN Reason: Fever >100.4 F Acetaminophen (Tylenol 325mg Tab) 650 mg PO Q4 PRN PRN Reason: Pain, Mild (1-3) Bacitracin (Bacitracin Oint) 1 applic TP DAILY [facility] Last Admin: 05/18/18 09:00 Dose: Not Given Calcium Acetate (Phoslo) 667 mg PO TID [facility] Last Admin: 05/18/18 17:40 Dose: 667 mg Dapsone (Dapsone) 100 mg PO DAILY [facility] PRN Reason: Protocol Last Admin: 05/18/18 08:59 Dose: 100 mg Ergocalciferol (Drisdol 50,000 Intl Units Cap) 1 cap PO Q7D [facility] Last Admin: 05/14/18 14:01 Dose: 1 cap Finasteride (Proscar) 5 mg PO DAILY [facility] Last Admin: 05/18/18 08:59 Dose: 5 mg Fluticasone Propionate (Flonase) 1 spr [place] DAILY PRN PRN Reason: Nasal congestion Metoprolol Succinate (Toprol Xl) 50 mg PO Q12 [facility] Last Admin: 05/18/18 21:44 Dose: Not Given Pantoprazole Sodium (Protonix Ec Tab) 40 mg PO DAILY [facility] Last Admin: 05/18/18 08:59 Dose: 40 mg Prednisone (Prednisone Tab) 40 mg PO DAILY [facility] Last Admin: 05/18/18 09:00 Dose: 40 mg Tamsulosin HCl (Flomax) 0.4 mg PO DAILY [facility] Last Admin: 05/18/18 08:59 Dose: 0.4 mg Vitamin B Complex/Vit C/Folic Acid (Nephro-Jj) 1 tab PO DAILY [facility] Last Admin: 05/18/18 08:59 Dose: 1 tab - Labs Labs: 05/18/18 00:15 05/18/18 00:15 PT 11.3 Seconds (9.8-13.1) 05/16/18 04:45 INR 1.0 05/16/18 04:45 APTT 26.7 Seconds (25.6-37.1) 05/16/18 04:45 - Head Exam Head Exam: ATRAUMATIC - Eye Exam Eye Exam: Normal appearance - ENT Exam ENT Exam: Mucous Membranes Dry - Respiratory Exam Respiratory Exam: NORMAL BREATHING PATTERN - Cardiovascular Exam Cardiovascular Exam: +S2 - GI/Abdominal Exam GI & Abdominal Exam: Normal Bowel Sounds Assessment and Plan (1) Hematuria Assessment & Plan: on Amicar repeat coags and fibrinogen H/H stable Status: Acute (2) Anemia Assessment & Plan: hematuria chronic disease anemia of CKD on MENG transfusion support PRN Status: Acute (3) Prostate cancer Assessment & Plan: outpatient treatment Status: Acute
--- NOTE | 2018-05-18 22:45 | CP.PCM.PN ---
Subjective - Date & Time of Evaluation Date of Evaluation: 05/17/18 Time of Evaluation: 13:00 - Subjective Subjective: Appears comfortable Objective - Vital Signs/Intake and Output Vital Signs (last 24 hours): Temp Pulse Resp BP Pulse Ox 98.4 F 105 H 16 123/76 97 05/18/18 19:30 05/18/18 19:30 05/18/18 19:30 05/18/18 19:30 05/18/18 19:30 - Medications Medications: Current Medications Acetaminophen (Tylenol 325mg Tab) 650 mg PO Q4 PRN PRN Reason: Fever >100.4 F Acetaminophen (Tylenol 325mg Tab) 650 mg PO Q4 PRN PRN Reason: Pain, Mild (1-3) Bacitracin (Bacitracin Oint) 1 applic TP DAILY [facility] Last Admin: 05/18/18 09:00 Dose: Not Given Calcium Acetate (Phoslo) 667 mg PO TID [facility] Last Admin: 05/18/18 17:40 Dose: 667 mg Dapsone (Dapsone) 100 mg PO DAILY [facility] PRN Reason: Protocol Last Admin: 05/18/18 08:59 Dose: 100 mg Ergocalciferol (Drisdol 50,000 Intl Units Cap) 1 cap PO Q7D [facility] Last Admin: 05/14/18 14:01 Dose: 1 cap Finasteride (Proscar) 5 mg PO DAILY [facility] Last Admin: 05/18/18 08:59 Dose: 5 mg Fluticasone Propionate (Flonase) 1 spr [place] DAILY PRN PRN Reason: Nasal congestion Metoprolol Succinate (Toprol Xl) 50 mg PO Q12 [facility] Last Admin: 05/18/18 21:44 Dose: Not Given Pantoprazole Sodium (Protonix Ec Tab) 40 mg PO DAILY [facility] Last Admin: 05/18/18 08:59 Dose: 40 mg Prednisone (Prednisone Tab) 40 mg PO DAILY [facility] Last Admin: 05/18/18 09:00 Dose: 40 mg Tamsulosin HCl (Flomax) 0.4 mg PO DAILY [facility] Last Admin: 05/18/18 08:59 Dose: 0.4 mg Vitamin B Complex/Vit C/Folic Acid (Nephro-Jj) 1 tab PO DAILY [facility] Last Admin: 05/18/18 08:59 Dose: 1 tab - Labs Labs: 05/18/18 00:15 05/18/18 00:15 PT 11.3 Seconds (9.8-13.1) 05/16/18 04:45 INR 1.0 05/16/18 04:45 APTT 26.7 Seconds (25.6-37.1) 05/16/18 04:45 - Head Exam Head Exam: ATRAUMATIC - Eye Exam Eye Exam: Normal appearance - ENT Exam ENT Exam: Mucous Membranes Dry - Respiratory Exam Respiratory Exam: NORMAL BREATHING PATTERN - Cardiovascular Exam Cardiovascular Exam: +S1, +S2 - GI/Abdominal Exam GI & Abdominal Exam: Normal Bowel Sounds Assessment and Plan (1) Hematuria Assessment & Plan: s/p Amicar repeat coags and fibrinogen; redose cryopercipitate H/H stable Status: Acute (2) Anemia Assessment & Plan: hematuria chronic disease anemia of CKD on MENG transfusion support PRN Status: Acute (3) Prostate cancer Assessment & Plan: outpatient treatment Status: Acute
--- NOTE | 2018-05-18 22:47 | CP.PCM.PN ---
Subjective - Date & Time of Evaluation Date of Evaluation: 05/18/18 Time of Evaluation: 18:00 - Subjective Subjective: Blood tinged urine Objective - Vital Signs/Intake and Output Vital Signs (last 24 hours): Temp Pulse Resp BP Pulse Ox 98.4 F 105 H 16 123/76 97 05/18/18 19:30 05/18/18 19:30 05/18/18 19:30 05/18/18 19:30 05/18/18 19:30 - Medications Medications: Current Medications Acetaminophen (Tylenol 325mg Tab) 650 mg PO Q4 PRN PRN Reason: Fever >100.4 F Acetaminophen (Tylenol 325mg Tab) 650 mg PO Q4 PRN PRN Reason: Pain, Mild (1-3) Bacitracin (Bacitracin Oint) 1 applic TP DAILY [facility] Last Admin: 05/18/18 09:00 Dose: Not Given Calcium Acetate (Phoslo) 667 mg PO TID [facility] Last Admin: 05/18/18 17:40 Dose: 667 mg Dapsone (Dapsone) 100 mg PO DAILY [facility] PRN Reason: Protocol Last Admin: 05/18/18 08:59 Dose: 100 mg Ergocalciferol (Drisdol 50,000 Intl Units Cap) 1 cap PO Q7D [facility] Last Admin: 05/14/18 14:01 Dose: 1 cap Finasteride (Proscar) 5 mg PO DAILY [facility] Last Admin: 05/18/18 08:59 Dose: 5 mg Fluticasone Propionate (Flonase) 1 spr [place] DAILY PRN PRN Reason: Nasal congestion Metoprolol Succinate (Toprol Xl) 50 mg PO Q12 [facility] Last Admin: 05/18/18 21:44 Dose: Not Given Pantoprazole Sodium (Protonix Ec Tab) 40 mg PO DAILY [facility] Last Admin: 05/18/18 08:59 Dose: 40 mg Prednisone (Prednisone Tab) 40 mg PO DAILY [facility] Last Admin: 05/18/18 09:00 Dose: 40 mg Tamsulosin HCl (Flomax) 0.4 mg PO DAILY [facility] Last Admin: 05/18/18 08:59 Dose: 0.4 mg Vitamin B Complex/Vit C/Folic Acid (Nephro-Jj) 1 tab PO DAILY [facility] Last Admin: 05/18/18 08:59 Dose: 1 tab - Labs Labs: 05/18/18 00:15 09/19/18 00:15 PT 11.3 Seconds (9.8-13.1) 05/16/18 04:45 INR 1.0 05/16/18 04:45 APTT 26.7 Seconds (25.6-37.1) 05/16/18 04:45 - Head Exam Head Exam: ATRAUMATIC - Eye Exam Eye Exam: Normal appearance - ENT Exam ENT Exam: Mucous Membranes Dry - Respiratory Exam Respiratory Exam: NORMAL BREATHING PATTERN - Cardiovascular Exam Cardiovascular Exam: +S1, +S2 - GI/Abdominal Exam GI & Abdominal Exam: Normal Bowel Sounds Assessment and Plan (1) Hematuria Assessment & Plan: s/p Amicar, s/p desmopressin redose cryopercipitate repeat coags and fibrinogen H/H stable Status: Acute (2) Anemia Assessment & Plan: hematuria chronic disease anemia of CKD on MENG transfusion support PRN Status: Acute (3) Prostate cancer Assessment & Plan: outpatient treatment Status: Acute
[2018-05-19] MEDS: Metoprolol Succinate 50 mg XL Tab PO SCH ×2 (09:07→21:37)
[2018-05-19] MEDS: Pantoprazole 40 mg EC Tab PO SCH (09:08)
[2018-05-19] MEDS: Multivitamin Vitamin B Complex (Nephro-Vite) Tab PO SCH (09:08)
[2018-05-19] MEDS: Bacitracin OINT 15GM TP SCH (09:10)
--- NOTE | 2018-05-19 10:43 | CP.PCM.PN ---
Subjective - Date & Time of Evaluation Date of Evaluation: 05/19/18 Time of Evaluation: 10:42 - Subjective Subjective: patient is up and around Much better Objective - Vital Signs/Intake and Output Vital Signs (last 24 hours): Temp Pulse Resp BP Pulse Ox 97.8 F 101 H 18 146/67 100 05/19/18 08:11 05/19/18 09:07 05/19/18 08:11 05/19/18 09:07 05/19/18 08:11 - Medications Medications: Current Medications Acetaminophen (Tylenol 325mg Tab) 650 mg PO Q4 PRN PRN Reason: Fever >100.4 F Acetaminophen (Tylenol 325mg Tab) 650 mg PO Q4 PRN PRN Reason: Pain, Mild (1-3) Bacitracin (Bacitracin Oint) 1 applic TP DAILY [facility] Last Admin: 05/19/18 09:10 Dose: Not Given Calcium Acetate (Phoslo) 667 mg PO TID [facility] Last Admin: 05/19/18 09:08 Dose: 667 mg Dapsone (Dapsone) 100 mg PO DAILY [facility] PRN Reason: Protocol Last Admin: 05/19/18 09:09 Dose: 100 mg Ergocalciferol (Drisdol 50,000 Intl Units Cap) 1 cap PO Q7D [facility] Last Admin: 05/14/18 14:01 Dose: 1 cap Finasteride (Proscar) 5 mg PO DAILY [facility] Last Admin: 05/19/18 09:07 Dose: 5 mg Fluticasone Propionate (Flonase) 1 spr [place] DAILY PRN PRN Reason: Nasal congestion Metoprolol Succinate (Toprol Xl) 50 mg PO Q12 [facility] Last Admin: 05/19/18 09:07 Dose: 50 mg Pantoprazole Sodium (Protonix Ec Tab) 40 mg PO DAILY [facility] Last Admin: 05/19/18 09:08 Dose: 40 mg Prednisone (Prednisone Tab) 40 mg PO DAILY [facility] Last Admin: 05/19/18 09:09 Dose: 40 mg Tamsulosin HCl (Flomax) 0.4 mg PO DAILY [facility] Last Admin: 05/19/18 09:07 Dose: 0.4 mg Vitamin B Complex/Vit C/Folic Acid (Nephro-Jj) 1 tab PO DAILY [facility] Last Admin: 05/19/18 09:08 Dose: 1 tab - Labs Labs: 05/18/18 00:15 05/18/18 00:15 PT 11.3 Seconds (9.8-13.1) 05/16/18 04:45 INR 1.0 05/16/18 04:45 APTT 26.7 Seconds (25.6-37.1) 05/16/18 04:45 - Constitutional Appears: No Acute Distress - Eye Exam Eye Exam: Conjunctival injection - ENT Exam ENT Exam: Mucous Membranes Moist - Respiratory Exam Respiratory Exam: NORMAL BREATHING PATTERN. 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) gross hematuria which is significantly improving severe anemia prostatic CA the plan continue hemodialysis as scheduled shortly Patient need AV fistula when vascular surgery is available, apparently no vascular surgeon is available Patient to receive cryoprecipitate on dialysis as per hematology Status: Chronic
--- NOTE | 2018-05-19 14:00 | CP.PCM.PN ---
<John Pruitt - Last Filed: 05/19/18 13:55> Subjective - Date & Time of Evaluation Date of Evaluation: 05/19/18 Time of Evaluation: 07:00 - Subjective Subjective: Pt seen and examined with Dr. Tineo at the bedside. No acute overnight events. Pt has no complaints. Plan for HD today. Objective - Vital Signs/Intake and Output Vital Signs (last 24 hours): Temp Pulse Resp BP Pulse Ox 97.8 F 101 H 18 146/67 100 05/19/18 08:11 05/19/18 09:07 05/19/18 08:11 05/19/18 09:07 05/19/18 08:11 - Medications Medications: Current Medications Acetaminophen (Tylenol 325mg Tab) 650 mg PO Q4 PRN PRN Reason: Fever >100.4 F Acetaminophen (Tylenol 325mg Tab) 650 mg PO Q4 PRN PRN Reason: Pain, Mild (1-3) Bacitracin (Bacitracin Oint) 1 applic TP DAILY [facility] Last Admin: 05/19/18 09:10 Dose: Not Given Calcium Acetate (Phoslo) 667 mg PO TID [facility] Last Admin: 05/19/18 09:08 Dose: 667 mg Dapsone (Dapsone) 100 mg PO DAILY [facility] PRN Reason: Protocol Last Admin: 05/19/18 09:09 Dose: 100 mg Ergocalciferol (Drisdol 50,000 Intl Units Cap) 1 cap PO Q7D [facility] Last Admin: 05/14/18 14:01 Dose: 1 cap Finasteride (Proscar) 5 mg PO DAILY [facility] Last Admin: 05/19/18 09:07 Dose: 5 mg Fluticasone Propionate (Flonase) 1 spr [place] DAILY PRN PRN Reason: Nasal congestion Metoprolol Succinate (Toprol Xl) 50 mg PO Q12 [facility] Last Admin: 05/19/18 09:07 Dose: 50 mg Pantoprazole Sodium (Protonix Ec Tab) 40 mg PO DAILY [facility] Last Admin: 05/19/18 09:08 Dose: 40 mg Prednisone (Prednisone Tab) 40 mg PO DAILY [facility] Last Admin: 05/19/18 09:09 Dose: 40 mg Tamsulosin HCl (Flomax) 0.4 mg PO DAILY [facility] Last Admin: 05/19/18 09:07 Dose: 0.4 mg Vitamin B Complex/Vit C/Folic Acid (Nephro-Jj) 1 tab PO DAILY [facility] Last Admin: 05/19/18 09:08 Dose: 1 tab - Labs Labs: 05/18/18 00:15 05/18/18 00:15 PT 11.3 Seconds (9.8-13.1) 05/16/18 04:45 INR 1.0 05/16/18 04:45 APTT 26.7 Seconds (25.6-37.1) 05/16/18 04:45 - Constitutional Appears: Well, No Acute Distress - Head Exam Head Exam: NORMAL INSPECTION - Eye Exam Eye Exam: Normal appearance - ENT Exam ENT Exam: Mucous Membranes Moist - Neck Exam Neck Exam: Full ROM - Respiratory Exam Respiratory Exam: Clear to Ausculation Bilateral - Cardiovascular Exam Cardiovascular Exam: REGULAR RHYTHM - GI/Abdominal Exam GI & Abdominal Exam: Soft. absent: Tenderness - Extremities Exam Extremities Exam: absent: Pedal Edema - Neurological Exam Neurological Exam: Alert, Oriented x3 - Psychiatric Exam Psychiatric exam: Normal Affect - Skin Skin Exam: Normal Color, Warm Assessment and Plan (1) ESRD (end stage renal disease) on dialysis Status: Chronic (2) Hematuria Status: Acute - Assessment and Plan (Free Text) Assessment: 77 y/o M with a PMHx of ductal prostate cancer, ESRD, HTN, and Wageners Granulomatosis admitted due to gross hematuria at the correction. -Still has hematuria. -Hemoglobin stable at 8.7 -Nephrology on board: HD today. Recommending IR for AVF creation-- will need to do it outpatient as no Vascular available here. -Hematology on board: Redose Cryoprecipitate and repeat coags. Radiation outpatient. Pt seen, examined, and case discussed with Dr. Tineo. John Pruitt, PGY2 <Hans Tineo - Last Filed: 05/21/18 05:54> Objective - Vital Signs/Intake and Output Vital Signs (last 24 hours): Temp Pulse Resp BP Pulse Ox 98.1 F 93 H 18 139/67 98 05/21/18 05:00 05/21/18 05:00 05/21/18 05:00 05/21/18 05:00 05/21/18 05:00 - Medications Medications: Current Medications Acetaminophen (Tylenol 325mg Tab) 650 mg PO Q4 PRN PRN Reason: Fever >100.4 F Acetaminophen (Tylenol 325mg Tab) 650 mg PO Q4 PRN PRN Reason: Pain, Mild (1-3) Bacitracin (Bacitracin Oint) 1 applic TP DAILY [facility] Last Admin: 05/20/18 08:49 Dose: 1 applic Calcium Acetate (Phoslo) 667 mg PO TID [facility] Last Admin: 05/20/18 16:49 Dose: 667 mg Dapsone (Dapsone) 100 mg PO DAILY [facility] PRN Reason: Protocol Last Admin: 05/20/18 08:37 Dose: 100 mg Ergocalciferol (Drisdol 50,000 Intl Units Cap) 1 cap PO Q7D [facility] Last Admin: 05/14/18 14:01 Dose: 1 cap Finasteride (Proscar) 5 mg PO DAILY [facility] Last Admin: 05/20/18 08:42 Dose: 5 mg Fluticasone Propionate (Flonase) 1 spr [place] DAILY PRN PRN Reason: Nasal congestion Aminocaproic Acid 24,000 mg/ (Dextrose) 1,000 mls @ 41.667 mls/hr IV ONCE ONE Stop: 05/21/18 15:29 Last Admin: 05/20/18 16:50 Dose: Not Given Metoprolol Succinate (Toprol Xl) 50 mg PO Q12 [facility] Last Admin: 05/20/18 21:46 Dose: Not Given Pantoprazole Sodium (Protonix Ec Tab) 40 mg PO DAILY [facility] Last Admin: 05/20/18 08:42 Dose: 40 mg Prednisone (Prednisone Tab) 40 mg PO DAILY [facility] Last Admin: 05/20/18 08:40 Dose: 40 mg Tamsulosin HCl (Flomax) 0.4 mg PO DAILY [facility] Last Admin: 05/20/18 08:39 Dose: 0.4 mg Vitamin B Complex/Vit C/Folic Acid (Nephro-Jj) 1 tab PO DAILY [facility] Last Admin: 05/20/18 08:39 Dose: 1 tab - Labs Labs: 05/20/18 13:02 05/18/18 00:15 PT 11.3 Seconds (9.8-13.1) 05/16/18 04:45 INR 1.0 05/16/18 04:45 APTT 26.7 Seconds (25.6-37.1) 05/16/18 04:45 Assessment and Plan - Assessment and Plan (Free Text) Assessment: Patient was personally seen and examined by me in rounds with residents. Available labs and diagnostic data reviewed. Case, Patient's condition and management plan discussed with residents in rounds. Agree with resident's progress note. Plan: As ordered.
[2018-05-19] MEDS ORDERED: Phytonadione 10 mg/ml Inj (Adult) IV ONE (15:02)
[2018-05-19] MEDS ORDERED: Phytonadione 10 MG in Sodium Chloride 0.9% 50 ML IV ONE (15:15)
[2018-05-19] MEDS ORDERED: AMINOCAPROIC ACID IV ONE (15:30)
[2018-05-19] MEDS ORDERED: DEXTROSE 5% IV ONE (15:30)
[2018-05-19] MEDS ORDERED: WATER IV ONE (15:30)
[2018-05-19] MEDS ORDERED: Aminocaproic Acid 5,000 MG in Dextrose 5% In Water 250 ML IV ONE (15:30)
[2018-05-19 17:18] LABS: HEMOGLOBIN 7.7 g/dL (12.0-18.0); MEAN CELL VOLUME 95.5 fl (80.0-94.0); MEAN CORPUSCULAR HEMOGLOBIN 31.6 pg (27.0-31.0); MEAN CORPUSCULAR HGB CONC 33.1 g/dL (33.0-37.0); RBC 2.45 Mil/uL (4.40-5.90); WHITE BLOOD COUNT 9.8 K/uL (4.8-10.8)
[2018-05-20] MEDS: Multivitamin Vitamin B Complex (Nephro-Vite) Tab PO SCH (08:39)
[2018-05-20] MEDS: Pantoprazole 40 mg EC Tab PO SCH (08:42)
[2018-05-20] MEDS: Metoprolol Succinate 50 mg XL Tab PO SCH ×2 (08:43→21:46)
[2018-05-20] MEDS: Bacitracin OINT 15GM TP SCH (08:49)
--- NOTE | 2018-05-20 08:51 | CP.PCM.PN ---
Subjective - Date & Time of Evaluation Date of Evaluation: 05/19/18 Time of Evaluation: 13:00 - Subjective Subjective: Nursing noted darker hematuria. Objective - Vital Signs/Intake and Output Vital Signs (last 24 hours): Temp Pulse Resp BP Pulse Ox 98.0 F 73 18 138/64 100 05/20/18 08:24 05/20/18 08:43 05/20/18 08:24 05/20/18 08:43 05/20/18 08:24 - Medications Medications: Current Medications Acetaminophen (Tylenol 325mg Tab) 650 mg PO Q4 PRN PRN Reason: Fever >100.4 F Acetaminophen (Tylenol 325mg Tab) 650 mg PO Q4 PRN PRN Reason: Pain, Mild (1-3) Bacitracin (Bacitracin Oint) 1 applic TP DAILY [facility] Last Admin: 05/19/18 09:10 Dose: Not Given Calcium Acetate (Phoslo) 667 mg PO TID [facility] Last Admin: 05/20/18 08:39 Dose: 667 mg Dapsone (Dapsone) 100 mg PO DAILY [facility] PRN Reason: Protocol Last Admin: 05/20/18 08:37 Dose: 100 mg Ergocalciferol (Drisdol 50,000 Intl Units Cap) 1 cap PO Q7D [facility] Last Admin: 05/14/18 14:01 Dose: 1 cap Finasteride (Proscar) 5 mg PO DAILY [facility] Last Admin: 05/20/18 08:42 Dose: 5 mg Fluticasone Propionate (Flonase) 1 spr [place] DAILY PRN PRN Reason: Nasal congestion Aminocaproic Acid 24,000 mg/ (Dextrose) 1,000 mls @ 41.667 mls/hr IV ONCE ONE Stop: 05/20/18 15:29 Last Admin: 05/19/18 23:22 Dose: 41.667 mls/hr Metoprolol Succinate (Toprol Xl) 50 mg PO Q12 [facility] Last Admin: 05/20/18 08:43 Dose: 50 mg Pantoprazole Sodium (Protonix Ec Tab) 40 mg PO DAILY [facility] Last Admin: 05/20/18 08:42 Dose: 40 mg Prednisone (Prednisone Tab) 40 mg PO DAILY [facility] Last Admin: 05/20/18 08:40 Dose: 40 mg Tamsulosin HCl (Flomax) 0.4 mg PO DAILY [facility] Last Admin: 05/20/18 08:39 Dose: 0.4 mg Vitamin B Complex/Vit C/Folic Acid (Nephro-Jj) 1 tab PO DAILY [facility] Last Admin: 05/20/18 08:39 Dose: 1 tab - Labs Labs: 05/19/18 16:23 05/18/18 00:15 PT 11.3 Seconds (9.8-13.1) 05/16/18 04:45 INR 1.0 05/16/18 04:45 APTT 26.7 Seconds (25.6-37.1) 05/16/18 04:45 - Head Exam Head Exam: ATRAUMATIC - Eye Exam Eye Exam: Normal appearance - ENT Exam ENT Exam: Mucous Membranes Dry - Respiratory Exam Respiratory Exam: NORMAL BREATHING PATTERN - Cardiovascular Exam Cardiovascular Exam: +S1, +S2 - GI/Abdominal Exam GI & Abdominal Exam: Normal Bowel Sounds Assessment and Plan (1) Hematuria Assessment & Plan: s/p cryopercipitate for hypofibrinogenemia s/p desmopressin will restart Amicar drip vit K IV x 1 repeat PT/PTT fibrinogen in AM Status: Acute (2) Anemia Assessment & Plan: hematuria chronic disease anemia of CKD - MENG per renal transfusion support PRN Status: Acute (3) Prostate cancer Assessment & Plan: outpatient treatment Status: Acute
--- NOTE | 2018-05-20 12:59 | CP.PCM.PN ---
Subjective - Date & Time of Evaluation Date of Evaluation: 05/20/18 Time of Evaluation: 12:59 - Subjective Subjective: patient awake and conscious not in acute distress appears to be comfortable vital signs stable Objective - Vital Signs/Intake and Output Vital Signs (last 24 hours): Temp Pulse Resp BP Pulse Ox 98.2 F 91 H 20 120/68 96 05/20/18 12:44 05/20/18 12:44 05/20/18 12:44 05/20/18 12:44 05/20/18 12:44 - Medications Medications: Current Medications Acetaminophen (Tylenol 325mg Tab) 650 mg PO Q4 PRN PRN Reason: Fever >100.4 F Acetaminophen (Tylenol 325mg Tab) 650 mg PO Q4 PRN PRN Reason: Pain, Mild (1-3) Bacitracin (Bacitracin Oint) 1 applic TP DAILY [facility] Last Admin: 05/20/18 08:49 Dose: 1 applic Calcium Acetate (Phoslo) 667 mg PO TID [facility] Last Admin: 05/20/18 12:02 Dose: 667 mg Dapsone (Dapsone) 100 mg PO DAILY [facility] PRN Reason: Protocol Last Admin: 05/20/18 08:37 Dose: 100 mg Ergocalciferol (Drisdol 50,000 Intl Units Cap) 1 cap PO Q7D [facility] Last Admin: 05/14/18 14:01 Dose: 1 cap Finasteride (Proscar) 5 mg PO DAILY [facility] Last Admin: 05/20/18 08:42 Dose: 5 mg Fluticasone Propionate (Flonase) 1 spr [facility] DAILY PRN PRN Reason: Nasal congestion Aminocaproic Acid 24,000 mg/ (Dextrose) 1,000 mls @ 41.667 mls/hr IV ONCE ONE Stop: 05/20/18 15:29 Last Admin: 05/19/18 23:22 Dose: 41.667 mls/hr Metoprolol Succinate (Toprol Xl) 50 mg PO Q12 [facility] Last Admin: 05/20/18 08:43 Dose: 50 mg Pantoprazole Sodium (Protonix Ec Tab) 40 mg PO DAILY [facility] Last Admin: 05/20/18 08:42 Dose: 40 mg Prednisone (Prednisone Tab) 40 mg PO DAILY [facility] Last Admin: 05/20/18 08:40 Dose: 40 mg Tamsulosin HCl (Flomax) 0.4 mg PO DAILY [facility] Last Admin: 05/20/18 08:39 Dose: 0.4 mg Vitamin B Complex/Vit C/Folic Acid (Nephro-Jj) 1 tab PO DAILY [facility] Last Admin: 05/20/18 08:39 Dose: 1 tab - Labs Labs: 05/19/18 16:23 05/18/18 00:15 PT 11.3 Seconds (9.8-13.1) 05/16/18 04:45 INR 1.0 05/16/18 04:45 APTT 26.7 Seconds (25.6-37.1) 05/16/18 04:45 - Constitutional Appears: No Acute Distress - Eye Exam Eye Exam: Conjunctival injection - ENT Exam ENT Exam: Mucous Membranes Moist - Neck Exam Neck Exam: absent: Lymphadenopathy - Respiratory Exam Respiratory Exam: NORMAL BREATHING PATTERN. 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) gross hematuria which is significantly improving severe anemia prostatic CA the plan continue hemodialysis TTS as scheduled Patient is still oozing from the urine patient has a quadrant uropathy as per hematology follow-up Again no vascular surgeon available to do AV fistula *24 hours urine for creatinine clearance and protein to determine the need for dialysis Also for history when the patient was diagnosed with the above diagnosis he has a following treatment Pulses steroid for 3 days Rituximab 1 g twice 4 weeks apart Oral steroid Plasma phoresis And the patient continued to need dialysis Status: Chronic
[2018-05-20 14:24] LABS: HEMOGLOBIN 7.3 g/dL (12.0-18.0); MEAN CELL VOLUME 95.3 fl (80.0-94.0); MEAN CORPUSCULAR HEMOGLOBIN 31.7 pg (27.0-31.0); MEAN CORPUSCULAR HGB CONC 33.2 g/dL (33.0-37.0); RBC 2.3 Mil/uL (4.40-5.90); RED CELL DISTRIBUTION WIDTH 15.8 % (11.5-14.5); WHITE BLOOD COUNT 9.1 K/uL (4.8-10.8)
--- NOTE | 2018-05-20 15:08 | CP.PCM.PN ---
<John Pruitt - Last Filed: 05/20/18 15:04> Subjective - Date & Time of Evaluation Date of Evaluation: 05/20/18 Time of Evaluation: 08:00 - Subjective Subjective: No acute overnight events. Pt seen and examined this am. Still has hematuria. Denies any pain, fever/chills. Objective - Vital Signs/Intake and Output Vital Signs (last 24 hours): Temp Pulse Resp BP Pulse Ox 98.2 F 91 H 20 120/68 96 05/20/18 12:44 05/20/18 12:44 05/20/18 12:44 05/20/18 12:44 05/20/18 12:44 - Medications Medications: Current Medications Acetaminophen (Tylenol 325mg Tab) 650 mg PO Q4 PRN PRN Reason: Fever >100.4 F Acetaminophen (Tylenol 325mg Tab) 650 mg PO Q4 PRN PRN Reason: Pain, Mild (1-3) Bacitracin (Bacitracin Oint) 1 applic TP DAILY [facility] Last Admin: 05/20/18 08:49 Dose: 1 applic Calcium Acetate (Phoslo) 667 mg PO TID [facility] Last Admin: 05/20/18 12:02 Dose: 667 mg Dapsone (Dapsone) 100 mg PO DAILY [facility] PRN Reason: Protocol Last Admin: 05/20/18 08:37 Dose: 100 mg Ergocalciferol (Drisdol 50,000 Intl Units Cap) 1 cap PO Q7D [facility] Last Admin: 05/14/18 14:01 Dose: 1 cap Finasteride (Proscar) 5 mg PO DAILY [facility] Last Admin: 05/20/18 08:42 Dose: 5 mg Fluticasone Propionate (Flonase) 1 spr [place] DAILY PRN PRN Reason: Nasal congestion Aminocaproic Acid 24,000 mg/ (Dextrose) 1,000 mls @ 41.667 mls/hr IV ONCE ONE Stop: 05/21/18 15:29 Metoprolol Succinate (Toprol Xl) 50 mg PO Q12 [facility] Last Admin: 05/20/18 08:43 Dose: 50 mg Pantoprazole Sodium (Protonix Ec Tab) 40 mg PO DAILY [facility] Last Admin: 05/20/18 08:42 Dose: 40 mg Prednisone (Prednisone Tab) 40 mg PO DAILY [facility] Last Admin: 05/20/18 08:40 Dose: 40 mg Tamsulosin HCl (Flomax) 0.4 mg PO DAILY [facility] Last Admin: 05/20/18 08:39 Dose: 0.4 mg Vitamin B Complex/Vit C/Folic Acid (Nephro-Jj) 1 tab PO DAILY [facility] Last Admin: 05/20/18 08:39 Dose: 1 tab - Labs Labs: 05/20/18 13:02 05/18/18 00:15 PT 11.3 Seconds (9.8-13.1) 05/16/18 04:45 INR 1.0 05/16/18 04:45 APTT 26.7 Seconds (25.6-37.1) 05/16/18 04:45 - Constitutional Appears: Well, Non-toxic, No Acute Distress - Head Exam Head Exam: NORMAL INSPECTION - Eye Exam Eye Exam: Normal appearance - ENT Exam ENT Exam: Mucous Membranes Moist - Neck Exam Neck Exam: Full ROM - Respiratory Exam Respiratory Exam: Clear to Ausculation Bilateral. absent: Rales, Wheezes - Cardiovascular Exam Cardiovascular Exam: REGULAR RHYTHM, +S1, +S2 - GI/Abdominal Exam GI & Abdominal Exam: Soft. absent: Tenderness - Extremities Exam Extremities Exam: absent: Pedal Edema - Neurological Exam Neurological Exam: Alert, Oriented x3 - Psychiatric Exam Psychiatric exam: Normal Affect - Skin Skin Exam: Normal Color. absent: Pallor Assessment and Plan (1) ESRD (end stage renal disease) on dialysis Status: Chronic (2) Hematuria Status: Acute (3) Prostate cancer Status: Acute (4) Anemia Status: Acute - Assessment and Plan (Free Text) Assessment: 77 y/o M with a PMHx of ductal prostate cancer, ESRD, HTN, and Wageners Granulomatosis admitted due [facility] at the [facility]. -Still has hematuria. -Hemoglobin dropping 8.7>7.7>7.3. Hemodynamically stable. -Nephrology on board: C/W HD TTS. AVF outpatient -Hematology on board: Jose ryan restarted. Vitamin K x1. Repeat Coags in am Pt seen, examined, and case discussed with Dr. Tineo. John Pruitt, PGY2 <Hans Tineo - Last Filed: 05/21/18 06:02> Objective - Vital Signs/Intake and Output Vital Signs (last 24 hours): Temp Pulse Resp BP Pulse Ox 98.1 F 93 H 18 139/67 98 05/21/18 05:00 05/21/18 05:00 05/21/18 05:00 05/21/18 05:00 05/21/18 05:00 - Medications Medications: Current Medications Acetaminophen (Tylenol 325mg Tab) 650 mg PO Q4 PRN PRN Reason: Fever >100.4 F Acetaminophen (Tylenol 325mg Tab) 650 mg PO Q4 PRN PRN Reason: Pain, Mild (1-3) Bacitracin (Bacitracin Oint) 1 applic TP DAILY [facility] Last Admin: 05/20/18 08:49 Dose: 1 applic Calcium Acetate (Phoslo) 667 mg PO TID [facility] Last Admin: 05/20/18 16:49 Dose: 667 mg Dapsone (Dapsone) 100 mg PO DAILY [facility] PRN Reason: Protocol Last Admin: 05/20/18 08:37 Dose: 100 mg Ergocalciferol (Drisdol 50,000 Intl Units Cap) 1 cap PO Q7D [facility] Last Admin: 05/14/18 14:01 Dose: 1 cap Finasteride (Proscar) 5 mg PO DAILY [facility] Last Admin: 05/20/18 08:42 Dose: 5 mg Fluticasone Propionate (Flonase) 1 spr [place] DAILY PRN PRN Reason: Nasal congestion Aminocaproic Acid 24,000 mg/ (Dextrose) 1,000 mls @ 41.667 mls/hr IV ONCE ONE Stop: 05/21/18 15:29 Last Admin: 05/20/18 16:50 Dose: Not Given Metoprolol Succinate (Toprol Xl) 50 mg PO Q12 [facility] Last Admin: 05/20/18 21:46 Dose: Not Given Pantoprazole Sodium (Protonix Ec Tab) 40 mg PO DAILY [facility] Last Admin: 05/20/18 08:42 Dose: 40 mg Prednisone (Prednisone Tab) 40 mg PO DAILY [facility] Last Admin: 05/20/18 08:40 Dose: 40 mg Tamsulosin HCl (Flomax) 0.4 mg PO DAILY [facility] Last Admin: 05/20/18 08:39 Dose: 0.4 mg Vitamin B Complex/Vit C/Folic Acid (Nephro-Jj) 1 tab PO DAILY [facility] Last Admin: 05/20/18 08:39 Dose: 1 tab - Labs Labs: 05/20/18 13:02 05/18/18 00:15 PT 11.3 Seconds (9.8-13.1) 05/16/18 04:45 INR 1.0 05/16/18 04:45 APTT 26.7 Seconds (25.6-37.1) 05/16/18 04:45 Assessment and Plan - Assessment and Plan (Free Text) Assessment: Patient was personally seen and examined by me in rounds with residents. Available labs and diagnostic data reviewed. Case, Patient's condition and management plan discussed with residents in rounds. Agree with resident's progress note. Plan: As ordered.
[2018-05-20] MEDS ORDERED: AMINOCAPROIC ACID IV ONE (15:30)
[2018-05-20] MEDS ORDERED: DEXTROSE 5% IV ONE (15:30)
[2018-05-20] MEDS ORDERED: WATER IV ONE (15:30)
[2018-05-21 07:28] LABS: HEMOGLOBIN 6.6 g/dL (12.0-18.0); MEAN CORPUSCULAR HGB CONC 35.1 g/dL (33.0-37.0); RED CELL DISTRIBUTION WIDTH 15.7 % (11.5-14.5); WHITE BLOOD COUNT 9.3 K/uL (4.8-10.8)
[2018-05-21] MEDS: Metoprolol Succinate 50 mg XL Tab PO SCH ×2 (09:23→22:00)
[2018-05-21] MEDS: Ergocalciferol 50,000 Intl Units Cap PO SCH (09:24)
[2018-05-21] MEDS: Bacitracin OINT 15GM TP SCH (09:24)
[2018-05-21] MEDS: Pantoprazole 40 mg EC Tab PO SCH (09:25)
[2018-05-21] MEDS: Multivitamin Vitamin B Complex (Nephro-Vite) Tab PO SCH (09:25)
--- NOTE | 2018-05-21 11:25 | PN ---
DATE: 05/21/2018 SUBJECTIVE: The patient seen and examined. Interim events noted. Consults noted and appreciated. The patient remains in progressive care unit in telemetry monitoring. Denies any specific complaints. No specific issues reported by nursing staff. PHYSICAL EXAMINATION: GENERAL: The patient is in no acute distress. VITAL SIGNS: Stable. HEART: S1, S2. Normal and regular. LUNGS: Good bilateral air exchange. ABDOMEN: Soft and nontender. EXTREMITIES: No edema. No calf swelling. No tenderness. No acute ischemia. SALES AND TRAINING SPECIALIST: Essentially unchanged. DIAGNOSTIC DATA: Available diagnostic data reviewed. Telemetry monitoring does not reveal significant arrhythmia. ASSESSMENT AND PLAN: Overall, the patient's general medical condition is stable. Plan as ordered. Hans Tineo MD
[2018-05-21] MEDS ORDERED: DEXTROSE 5% IV ONE ×2 (16:22→17:00)
[2018-05-21] MEDS ORDERED: AMINOCAPROIC ACID IV ONE ×2 (16:22→17:00)
[2018-05-21] MEDS ORDERED: WATER IV ONE ×2 (16:22→17:00)
--- NOTE | 2018-05-21 16:23 | CP.PCM.PN ---
Subjective - Date & Time of Evaluation Date of Evaluation: 05/21/18 Time of Evaluation: 14:00 - Subjective Subjective: Seen on dialysis receiving PRBC transfusion Objective - Vital Signs/Intake and Output Vital Signs (last 24 hours): Temp Pulse Resp BP Pulse Ox 98 F 78 16 133/85 97 05/21/18 16:02 05/21/18 16:02 05/21/18 16:02 05/21/18 16:02 05/21/18 12:43 Intake and Output: 05/21/18 05/21/18 06:59 18:59 Intake Total 650 Balance 650 - Medications Medications: Current Medications Acetaminophen (Tylenol 325mg Tab) 650 mg PO Q4 PRN PRN Reason: Fever >100.4 F Acetaminophen (Tylenol 325mg Tab) 650 mg PO Q4 PRN PRN Reason: Pain, Mild (1-3) Bacitracin (Bacitracin Oint) 1 applic TP DAILY [facility] Last Admin: 05/21/18 09:24 Dose: 1 applic Calcium Acetate (Phoslo) 667 mg PO TID [facility] Last Admin: 05/21/18 12:26 Dose: Not Given Dapsone (Dapsone) 100 mg PO DAILY [facility] PRN Reason: Protocol Last Admin: 05/21/18 09:24 Dose: 100 mg Ergocalciferol (Drisdol 50,000 Intl Units Cap) 1 cap PO Q7D [facility] Last Admin: 05/21/18 09:24 Dose: 1 cap Finasteride (Proscar) 5 mg PO DAILY [facility] Last Admin: 05/21/18 09:24 Dose: 5 mg Fluticasone Propionate (Flonase) 1 spr [place] DAILY PRN PRN Reason: Nasal congestion Metoprolol Succinate (Toprol Xl) 50 mg PO Q12 [facility] Last Admin: 05/21/18 09:23 Dose: 50 mg Pantoprazole Sodium (Protonix Ec Tab) 40 mg PO DAILY [facility] Last Admin: 05/21/18 09:25 Dose: 40 mg Tamsulosin HCl (Flomax) 0.4 mg PO DAILY [facility] Last Admin: 05/21/18 09:24 Dose: 0.4 mg Vitamin B Complex/Vit C/Folic Acid (Nephro-Jj) 1 tab PO DAILY [facility] Last Admin: 05/21/18 09:25 Dose: 1 tab - Labs Labs: 05/21/18 06:00 05/18/18 00:15 PT 11.3 Seconds (9.8-13.1) 05/16/18 04:45 INR 1.0 05/16/18 04:45 APTT 26.7 Seconds (25.6-37.1) 05/16/18 04:45 - Head Exam Head Exam: ATRAUMATIC - Eye Exam Eye Exam: Normal appearance - ENT Exam ENT Exam: Mucous Membranes Dry - Respiratory Exam Respiratory Exam: NORMAL BREATHING PATTERN - Cardiovascular Exam Cardiovascular Exam: +S1, +S2 - GI/Abdominal Exam GI & Abdominal Exam: Normal Bowel Sounds Assessment and Plan (1) Hematuria Assessment & Plan: hyofibrinogenemia persists s/p cryopercipitate; for 2 additional bags tomorrow on Amicar drip transfusion support PRBC Status: Acute (2) Anemia Assessment & Plan: hematuria anemia of CKD - MENG per renal transfusion support PRN Status: Acute (3) Prostate cancer Assessment & Plan: outpatient treatment Status: Acute
[2018-05-21 18:55] LABS: URINE CREATININE 78.6 mg/dL
[2018-05-21 20:51] LABS: HEMOGLOBIN 8.4 g/dL (12.0-18.0); MEAN CELL VOLUME 92.1 fl (80.0-94.0); MEAN CORPUSCULAR HEMOGLOBIN 31.3 pg (27.0-31.0); RBC 2.67 Mil/uL (4.40-5.90); RED CELL DISTRIBUTION WIDTH 15.8 % (11.5-14.5); WHITE BLOOD COUNT 8.2 K/uL (4.8-10.8)
--- NOTE | 2018-05-21 22:04 | CP.PCM.PN ---
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) gross hematuria which is significantly improving severe anemia prostatic CA plan continue hemodialysis TTS as scheduled for today lytes ok bp stable anemia no epo as cancer transfuse prn patient has a quadrant uropathy as per hematology follow-up Again no vascular surgeon available to do AV fistula *24 hours urine for creatinine clearance and protein to determine the need for dialysis Objective - Vital Signs/Intake and Output Vital Signs (last 24 hours): Temp Pulse Resp BP Pulse Ox 98 F 88 18 135/79 99 05/21/18 19:50 05/21/18 19:50 05/21/18 19:50 05/21/18 19:50 05/21/18 19:50 Intake and Output: 05/21/18 05/22/18 18:59 06:59 Intake Total 650 Balance 650 - Medications Medications: Current Medications Acetaminophen (Tylenol 325mg Tab) 650 mg PO Q4 PRN PRN Reason: Fever >100.4 F Acetaminophen (Tylenol 325mg Tab) 650 mg PO Q4 PRN PRN Reason: Pain, Mild (1-3) Bacitracin (Bacitracin Oint) 1 applic TP DAILY [facility] Last Admin: 05/21/18 09:24 Dose: 1 applic Calcium Acetate (Phoslo) 667 mg PO TID [facility] Last Admin: 05/21/18 17:28 Dose: Not Given Dapsone (Dapsone) 100 mg PO DAILY [facility] PRN Reason: Protocol Last Admin: 05/21/18 09:24 Dose: 100 mg Ergocalciferol (Drisdol 50,000 Intl Units Cap) 1 cap PO Q7D [facility] Last Admin: 05/21/18 09:24 Dose: 1 cap Finasteride (Proscar) 5 mg PO DAILY [facility] Last Admin: 05/21/18 09:24 Dose: 5 mg Fluticasone Propionate (Flonase) 1 spr [place] DAILY PRN PRN Reason: Nasal congestion Aminocaproic Acid 24,000 mg/ (Dextrose) 1,000 mls @ 41.667 mls/hr IV .Q24H ONE Stop: 05/22/18 16:59 Last Admin: 05/21/18 17:28 Dose: 41.667 mls/hr Metoprolol Succinate (Toprol Xl) 50 mg PO Q12 [facility] Last Admin: 05/21/18 09:23 Dose: 50 mg Pantoprazole Sodium (Protonix Ec Tab) 40 mg PO DAILY [facility] Last Admin: 05/21/18 09:25 Dose: 40 mg Tamsulosin HCl (Flomax) 0.4 mg PO DAILY [facility] Last Admin: 05/21/18 09:24 Dose: 0.4 mg Vitamin B Complex/Vit C/Folic Acid (Nephro-Jj) 1 tab PO DAILY [facility] Last Admin: 05/21/18 09:25 Dose: 1 tab - Labs Labs: 05/21/18 20:41 05/21/18 18:26 PT 11.3 Seconds (9.8-13.1) 05/16/18 04:45 INR 1.0 05/16/18 04:45 APTT 26.7 Seconds (25.6-37.1) 05/16/18 04:45
[2018-05-22] MEDS: Metoprolol Succinate 50 mg XL Tab PO SCH ×2 (10:39→21:46)
[2018-05-22] MEDS: Bacitracin OINT 15GM TP SCH (10:40)
[2018-05-22] MEDS: Pantoprazole 40 mg EC Tab PO SCH (10:40)
[2018-05-22] MEDS: Multivitamin Vitamin B Complex (Nephro-Vite) Tab PO SCH (10:40)
--- NOTE | 2018-05-22 11:25 | PN ---
DATE: 05/22/2018 SUBJECTIVE: The patient seen and examined. Interim events noted. The patient had hemoglobin dropped to 6 and blood transfusions are . The patient is sleeping, arousable. Feels okay. Denies any new complaints. No chest pain. No shortness of breath. No specific issue reported by nursing staff. PHYSICAL EXAMINATION: GENERAL: The patient is in no acute distress. VITAL SIGNS: Stable. HEART: S1 and S2. Normal and regular. LUNGS: Good bilateral air exchange. ABDOMEN: Soft and nontender. EXTREMITIES: No edema. No calf swelling. No tenderness. No acute ischemia. CLINICAL PROJECT COORDINATOR: Exam is essentially unchanged. DIAGNOSTIC DATA: Available diagnostic data reviewed. Telemetry monitoring does not reveal significant arrhythmia. Nephrology followup and intervention noted and appreciated. Hemoglobin dropped to 6 as mentioned earlier. ASSESSMENT AND PLAN: Overall, the patient is still drop in hemoglobin, but clinically and hemodynamically stable. Plan as ordered. Hans Tineo MD
--- NOTE | 2018-05-23 08:18 | CP.PCM.PN ---
Subjective - Date & Time of Evaluation Date of Evaluation: 05/23/18 Time of Evaluation: 08:18 - Subjective Subjective: patient awake and conscious not in acute distress appeared to be comfortable Objective - Vital Signs/Intake and Output Vital Signs (last 24 hours): Temp Pulse Resp BP Pulse Ox 98.0 F 75 20 150/86 97 05/23/18 07:44 05/23/18 07:44 05/23/18 07:44 05/23/18 07:44 05/23/18 07:44 - Medications Medications: Current Medications Acetaminophen (Tylenol 325mg Tab) 650 mg PO Q4 PRN PRN Reason: Fever >100.4 F Acetaminophen (Tylenol 325mg Tab) 650 mg PO Q4 PRN PRN Reason: Pain, Mild (1-3) Bacitracin (Bacitracin Oint) 1 applic TP DAILY [facility] Last Admin: 05/22/18 10:40 Dose: 1 applic Calcium Acetate (Phoslo) 667 mg PO TID [facility] Last Admin: 05/22/18 17:03 Dose: 667 mg Finasteride (Proscar) 5 mg PO DAILY [facility] Last Admin: 05/22/18 10:39 Dose: 5 mg Fluticasone Propionate (Flonase) 1 spr [place] DAILY PRN PRN Reason: Nasal congestion Metoprolol Succinate (Toprol Xl) 50 mg PO Q12 [facility] Last Admin: 05/22/18 21:46 Dose: Not Given Pantoprazole Sodium (Protonix Ec Tab) 40 mg PO DAILY [facility] Last Admin: 05/22/18 10:40 Dose: 40 mg Tamsulosin HCl (Flomax) 0.4 mg PO DAILY [facility] Last Admin: 05/22/18 10:40 Dose: 0.4 mg Vitamin B Complex/Vit C/Folic Acid (Nephro-Jj) 1 tab PO DAILY [facility] Last Admin: 05/22/18 10:40 Dose: 1 tab - Labs Labs: 05/21/18 20:41 05/21/18 18:26 PT 11.3 Seconds (9.8-13.1) 05/16/18 04:45 INR 1.0 05/16/18 04:45 APTT 26.7 Seconds (25.6-37.1) 05/16/18 04:45 - Constitutional Appears: No Acute Distress - Eye Exam Eye Exam: Conjunctival injection - ENT Exam ENT Exam: Mucous Membranes Moist - Neck Exam Neck Exam: absent: Lymphadenopathy - Respiratory Exam Respiratory Exam: NORMAL BREATHING PATTERN. 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) gross hematuria which is significantly improving severe anemia prostatic CA the plan patient was transfused blood transfusion and other hematology product yesterday. continue hemodialysis TTS as scheduled Patient is still oozing from the urine *24 hours urine for creatinine clearance and protein showed protein 2.6 gram and creatinine clearance 15 mL per minute Also for history when the patient was diagnosed with the above diagnosis he has a following treatment Pulses steroid for 3 days Rituximab 1 g twice 4 weeks apart Oral steroid Plasma phoresis And the patient continued to need dialysis Status: Chronic
[2018-05-23] MEDS: Bacitracin OINT 15GM TP SCH (08:25)
[2018-05-23] MEDS: Pantoprazole 40 mg EC Tab PO SCH (08:26)
[2018-05-23] MEDS: Multivitamin Vitamin B Complex (Nephro-Vite) Tab PO SCH (08:26)
[2018-05-23] MEDS: Metoprolol Succinate 50 mg XL Tab PO SCH ×2 (08:26→21:09)
--- NOTE | 2018-05-23 11:50 | PN ---
DATE: 05/23/2018 SUBJECTIVE: The patient seen and examined. Interim events noted. Consults noted and appreciated. The patient feels okay. Nurses reported the patient unit. No chest pain. No shortness of breath. No dizziness. PHYSICAL EXAMINATION: GENERAL: The patient is in no acute distress. VITAL SIGNS: Stable. No orthostatic changes. HEART: S1 and S2, normal and regular. LUNGS: Good bilateral air exchange. ABDOMEN: Soft and nontender. EXTREMITIES: No calf swelling. No tenderness. No acute ischemia. No edema. FUSING MACHINE TENDER: Exam is essentially unchanged. DIAGNOSTIC DATA: Available diagnostic data reviewed. Hemoglobin soon after transfusion. The patient refused blood test today. Telemetry monitoring does not reveal significant arrhythmia. ASSESSMENT AND PLAN: Overall, the patient's general condition is stable. The patient's blood pressure is stable. Plan as ordered. Hans Tineo MD
[2018-05-23 12:40] LABS: MEAN CELL VOLUME 92.7 fl (80.0-94.0); MEAN CORPUSCULAR HEMOGLOBIN 31.6 pg (27.0-31.0); MEAN CORPUSCULAR HGB CONC 34.1 g/dL (33.0-37.0); RBC 2.84 Mil/uL (4.40-5.90); WHITE BLOOD COUNT 9.6 K/uL (4.8-10.8)
[2018-05-23 12:43] LABS: PARTIAL THROMBOPLASTIN TIME 26.1 Seconds (25.6-37.1)
[2018-05-23 13:27] LABS: ALB/GLOB RATIO 0.9 (1.0-2.1); ALBUMIN 2.1 g/dL (3.5-5.0); CALCIUM 7.6 mg/dL (8.4-10.2)
[2018-05-24] MEDS: Metoprolol Succinate 50 mg XL Tab PO SCH ×2 (09:45→22:00)
[2018-05-24] MEDS: Pantoprazole 40 mg EC Tab PO SCH (09:45)
[2018-05-24] MEDS: Multivitamin Vitamin B Complex (Nephro-Vite) Tab PO SCH (09:45)
[2018-05-24] MEDS: Bacitracin OINT 15GM TP SCH (10:10)
[2018-05-24] MEDS ORDERED: Aminocaproic Acid 5,000 MG in Dextrose 5% In Water 250 ML IV ONE (11:30)
--- NOTE | 2018-05-24 12:12 | CP.PCM.PN ---
<John Pruitt - Last Filed: 05/24/18 12:06> Subjective - Date & Time of Evaluation Date of Evaluation: 05/24/18 Time of Evaluation: 07:00 - Subjective Subjective: No overnight events. Hematuria present but improving. Denies any pain, discomfort, fever, chills, dysuria. Objective - Vital Signs/Intake and Output Vital Signs (last 24 hours): Temp Pulse Resp BP Pulse Ox 98.3 F 88 18 135/86 96 05/24/18 05:00 05/24/18 05:00 05/24/18 05:00 05/24/18 05:00 05/24/18 05:00 - Medications Medications: Current Medications Acetaminophen (Tylenol 325mg Tab) 650 mg PO Q4 PRN PRN Reason: Fever >100.4 F Acetaminophen (Tylenol 325mg Tab) 650 mg PO Q4 PRN PRN Reason: Pain, Mild (1-3) Bacitracin (Bacitracin Oint) 1 applic TP DAILY [facility] Last Admin: 05/23/18 08:25 Dose: 1 applic Calcium Acetate (Phoslo) 667 mg PO TID [facility] Last Admin: 05/23/18 16:50 Dose: 667 mg Dapsone (Dapsone) 100 mg PO DAILY [facility]; Protocol Last Admin: 05/23/18 10:24 Dose: 100 mg Finasteride (Proscar) 5 mg PO DAILY [facility] Last Admin: 05/23/18 08:26 Dose: 5 mg Fluticasone Propionate (Flonase) 1 spr [place]ERIA DAILY PRN PRN Reason: Nasal congestion Aminocaproic Acid 5,000 mg/ (Dextrose) 270 mls @ 270 mls/hr IV ONCE ONE Stop: 05/24/18 12:29 Aminocaproic Acid 24,000 mg/ (Dextrose) 1,096 mls @ 45.667 mls/hr IV .Q24H ONE Stop: 05/25/18 12:29 Metoprolol Succinate (Toprol Xl) 50 mg PO Q12 [facility] Last Admin: 05/23/18 21:09 Dose: 50 mg Pantoprazole Sodium (Protonix Ec Tab) 40 mg PO DAILY [facility] Last Admin: 05/23/18 08:26 Dose: 40 mg Tamsulosin HCl (Flomax) 0.4 mg PO DAILY [facility] Last Admin: 05/23/18 08:26 Dose: 0.4 mg Vitamin B Complex/Vit C/Folic Acid (Nephro-Jj) 1 tab PO DAILY [facility] Last Admin: 05/23/18 08:26 Dose: 1 tab - Labs Labs: 05/23/18 11:56 05/23/18 11:56 PT 11.0 Seconds (9.8-13.1) 05/23/18 11:56 INR 1.0 05/23/18 11:56 APTT 26.1 Seconds (25.6-37.1) 05/23/18 11:56 - Constitutional Appears: Well, Non-toxic - Head Exam Head Exam: NORMAL INSPECTION - Eye Exam Eye Exam: Normal appearance - ENT Exam ENT Exam: Mucous Membranes Moist - Neck Exam Neck Exam: Full ROM - Respiratory Exam Respiratory Exam: Clear to Ausculation Bilateral - Cardiovascular Exam Cardiovascular Exam: REGULAR RHYTHM - GI/Abdominal Exam GI & Abdominal Exam: Soft, Normal Bowel Sounds. absent: Distended, Tenderness - Extremities Exam Extremities Exam: Normal Inspection - Neurological Exam Neurological Exam: Alert, Oriented x3 - Psychiatric Exam Psychiatric exam: Normal Affect - Skin Skin Exam: Normal Color. absent: Pallor Assessment and Plan (1) ESRD (end stage renal disease) on dialysis Status: Chronic (2) Hematuria Status: Acute (3) Prostate cancer Status: Acute (4) Anemia Status: Acute - Assessment and Plan (Free Text) Assessment: 77 y/o M with a PMHx of ductal prostate cancer, ESRD, HTN, and Wageners Granulomatosis admitted due to gross hematuria at the long-term. -Hematuria still present but improving. -Discussed case with Dr. Armas; hematuria likely due to hadley trauma to the urethra in setting of severe coagulopathy (low fibrinogen-possibly from underlying liver disease). Pt had prostatic ablation by urology and may benefit from prostate embolization in near future as opposed to radiation therapy. -Plan: Will receive 4 Cryoprecipitate today w/ HD and Amikar. -Hemoglobin 9 today s/p transfusion 2 PRBC over the weekend. -Nephrology on board: C/W HD TTS. AVF outpatient Pt seen, examined, and case discussed with Dr. Tineo. John Pruitt, PGY2 <Hans Tineo - Last Filed: 05/30/18 02:58> Objective - Vital Signs/Intake and Output Vital Signs (last 24 hours): Temp Pulse Resp BP Pulse Ox 98.5 F 103 H 18 128/72 97 05/30/18 00:16 05/30/18 00:16 05/30/18 00:16 05/30/18 00:16 05/30/18 00:16 Intake and Output: 05/29/18 05/30/18 18:59 06:59 Intake Total 345 Balance 345 - Medications Medications: Current Medications Acetaminophen (Tylenol 325mg Tab) 650 mg PO Q4 PRN PRN Reason: Fever >100.4 F Acetaminophen (Tylenol 325mg Tab) 650 mg PO Q4 PRN PRN Reason: Pain, Mild (1-3) Last Admin: 05/25/18 22:02 Dose: 650 mg Bacitracin (Bacitracin Oint) 1 applic TP DAILY [facility] Last Admin: 05/29/18 14:45 Dose: 1 applic Calcium Acetate (Phoslo) 667 mg PO TID [facility] Last Admin: 05/29/18 16:56 Dose: Not Given Finasteride (Proscar) 5 mg PO DAILY [facility] Last Admin: 05/29/18 08:38 Dose: 5 mg Fluticasone Propionate (Flonase) 1 spr [facility] DAILY PRN PRN Reason: Nasal congestion Heparin Sodium (Porcine) (Heparin) 4,000 units IVP POSTDI [facility]; Protocol Stop: 05/30/18 14:46 Metoprolol Succinate (Toprol Xl) 50 mg PO Q12 [facility] Last Admin: 05/29/18 21:08 Dose: 50 mg Pantoprazole Sodium (Protonix Ec Tab) 40 mg PO DAILY [facility] Last Admin: 05/29/18 08:38 Dose: 40 mg Tamsulosin HCl (Flomax) 0.4 mg PO DAILY [facility] Last Admin: 05/29/18 08:39 Dose: 0.4 mg Vitamin B Complex/Vit C/Folic Acid (Nephro-Jj) 1 tab PO DAILY [facility] Last Admin: 05/29/18 08:38 Dose: 1 tab - Labs Labs: 05/29/18 06:48 05/29/18 06:48 PT 13.8 Seconds (9.8-13.1) H 05/25/18 16:15 INR 1.2 05/25/18 16:15 APTT 25.8 Seconds (25.6-37.1) 05/25/18 16:15 Assessment and Plan - Assessment and Plan (Free Text) Assessment: Patient was personally seen and examined by me in rounds with residents. Available labs and diagnostic data reviewed. Case, Patient's condition and management plan discussed with residents in rounds. Agree with resident's progress note. Plan: As ordered.
[2018-05-24] MEDS ORDERED: DEXTROSE 5% IV ONE (12:30)
[2018-05-24] MEDS ORDERED: WATER IV ONE (12:30)
[2018-05-24] MEDS ORDERED: AMINOCAPROIC ACID IV ONE (12:30)
--- NOTE | 2018-05-24 16:02 | PN ---
DATE: 05/24/2018 SUBJECTIVE: The patient is receiving dialysis in a moment; however, the dialysis catheter not working and we are giving Cath flow and awaiting for 30 minutes, so they can restart the dialysis because nonfunctional dialysis. PHYSICAL EXAMINATION: CHEST: Clear. HEART: No rubs. ABDOMEN: Soft. EXTREMITIES: No edema. IMPRESSION AND PLAN: End-stage renal disease. The patient continued to have oozing and bleeding from the urine and discussed the case with the piecer up. The patient to receive cryoprecipitate 4 unit and blood transfusion and continue dialysis as scheduled right now. Moses Bernabe MD MTDD
[2018-05-24] MEDS ORDERED: Lidocaine 1% 5ml Abboject ONE ×2 (16:20)
--- NOTE | 2018-05-24 16:31 | PCM.SURG1 ---
Surgeon's Initial Post Op Note - Surgeon's Notes Surgeon: Prieto Casillas MD Paint Roller Covermaker: NONE Type of Anesthesia: Local Pre-Operative Diagnosis: ESRD, non functional HD catheter Operative Findings: Right IJV HD catheter in place Post-Operative Diagnosis: ESRD, non functional HD catheter Operation Performed: Exhange of tunneled right IJV HD catheter. A new 19 cm cuff to tip HD catheter placed. Specimen/Specimens Removed: NONE Estimated Blood Loss: EBL {In ML}: 5 Blood Products Given: N/A Drains Used: No Drains Post-Op Condition: Fair Date of Surgery/Procedure: 05/24/18 Time of Surgery/Procedure: 16:30
[2018-05-25 05:50] LABS: BASO # 0.1 K/uL (0.0-0.2); BASO % 0.5 % (0.0-2.0); EOS # 0.2 K/uL (0.0-0.7); EOS % 1.2 % (0.0-4.0); HEMOGLOBIN 7.6 g/dL (12.0-18.0); LYMPH # 0.9 K/uL (1.0-4.3); LYMPH % 7.2 % (20.0-40.0); MEAN CELL VOLUME 94.5 fl (80.0-94.0); MEAN CORPUSCULAR HEMOGLOBIN 31.7 pg (27.0-31.0); MEAN CORPUSCULAR HGB CONC 33.5 g/dL (33.0-37.0); MEAN PLATELET VOLUME 7.1 fl (7.2-11.7); MONO # 1.6 K/uL (0.0-0.8); MONO % 12.8 % (0.0-10.0); NEUT # 9.8 K/uL (1.8-7.0); NEUT % 78.3 % (50.0-75.0); PLATELET COUNT 212 K/uL (130-400); RBC 2.41 Mil/uL (4.40-5.90); RED CELL DISTRIBUTION WIDTH 16.2 % (11.5-14.5); WHITE BLOOD COUNT 12.5 K/uL (4.8-10.8)
[2018-05-25 06:13] LABS: CALCIUM 7.4 mg/dL (8.4-10.2)
[2018-05-25] MEDS: Pantoprazole 40 mg EC Tab PO SCH (09:49)
[2018-05-25] MEDS: Multivitamin Vitamin B Complex (Nephro-Vite) Tab PO SCH (09:49)
[2018-05-25] MEDS: Bacitracin OINT 15GM TP SCH (09:49)
[2018-05-25] MEDS: Metoprolol Succinate 50 mg XL Tab PO SCH ×2 (09:49→22:04)
--- NOTE | 2018-05-25 10:11 | CP.PCM.PN ---
Subjective - Date & Time of Evaluation Date of Evaluation: 05/23/18 Time of Evaluation: 19:00 - Subjective Subjective: Tea colored urine in hadley bag Objective - Vital Signs/Intake and Output Vital Signs (last 24 hours): Temp Pulse Resp BP Pulse Ox 98.3 F 88 18 113/63 95 05/25/18 08:23 05/25/18 09:49 05/25/18 08:23 05/25/18 09:49 05/25/18 08:23 Intake and Output: 05/25/18 05/25/18 06:59 18:59 Intake Total 510 Output Total 600 Balance -90 - Medications Medications: Current Medications Acetaminophen (Tylenol 325mg Tab) 650 mg PO Q4 PRN PRN Reason: Fever >100.4 F Acetaminophen (Tylenol 325mg Tab) 650 mg PO Q4 PRN PRN Reason: Pain, Mild (1-3) Last Admin: 05/24/18 22:10 Dose: 650 mg Bacitracin (Bacitracin Oint) 1 applic TP DAILY [facility] Last Admin: 05/25/18 09:49 Dose: 1 applic Calcium Acetate (Phoslo) 667 mg PO TID [facility] Last Admin: 05/25/18 09:49 Dose: 667 mg Dapsone (Dapsone) 100 mg PO DAILY [facility]; Protocol Last Admin: 05/25/18 09:49 Dose: 100 mg Finasteride (Proscar) 5 mg PO DAILY [facility] Last Admin: 05/25/18 09:49 Dose: 5 mg Fluticasone Propionate (Flonase) 1 spr [place] DAILY PRN PRN Reason: Nasal congestion Aminocaproic Acid 24,000 mg/ (Dextrose) 1,096 mls @ 45.667 mls/hr IV .Q24H ONE Stop: 05/25/18 12:29 Last Admin: 05/24/18 18:17 Dose: 45.667 mls/hr Metoprolol Succinate (Toprol Xl) 50 mg PO Q12 [facility] Last Admin: 05/25/18 09:49 Dose: 50 mg Pantoprazole Sodium (Protonix Ec Tab) 40 mg PO DAILY [facility] Last Admin: 05/25/18 09:49 Dose: 40 mg Tamsulosin HCl (Flomax) 0.4 mg PO DAILY [facility] Last Admin: 05/25/18 09:49 Dose: 0.4 mg Vitamin B Complex/Vit C/Folic Acid (Nephro-Jj) 1 tab PO DAILY [facility] Last Admin: 05/25/18 09:49 Dose: 1 tab - Labs Labs: 05/25/18 04:20 05/25/18 04:20 PT 11.0 Seconds (9.8-13.1) 05/23/18 11:56 INR 1.0 05/23/18 11:56 APTT 26.1 Seconds (25.6-37.1) 05/23/18 11:56 - Head Exam Head Exam: ATRAUMATIC - Eye Exam Eye Exam: Normal appearance - ENT Exam ENT Exam: Mucous Membranes Dry - Respiratory Exam Respiratory Exam: NORMAL BREATHING PATTERN - Cardiovascular Exam Cardiovascular Exam: +S1, +S2 - GI/Abdominal Exam GI & Abdominal Exam: Normal Bowel Sounds Assessment and Plan (1) Hematuria Assessment & Plan: hypofibrinogenemia; 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
--- NOTE | 2018-05-25 10:14 | CP.PCM.PN ---
Subjective - Date & Time of Evaluation Date of Evaluation: 05/24/18 Time of Evaluation: 10:00 - Subjective Subjective: Comfortable, tea colored urine Objective - Vital Signs/Intake and Output Vital Signs (last 24 hours): Temp Pulse Resp BP Pulse Ox 98.3 F 88 18 113/63 95 05/25/18 08:23 05/25/18 09:49 05/25/18 08:23 05/25/18 09:49 05/25/18 08:23 Intake and Output: 05/25/18 05/25/18 06:59 18:59 Intake Total 510 Output Total 600 Balance -90 - Medications Medications: Current Medications Acetaminophen (Tylenol 325mg Tab) 650 mg PO Q4 PRN PRN Reason: Fever >100.4 F Acetaminophen (Tylenol 325mg Tab) 650 mg PO Q4 PRN PRN Reason: Pain, Mild (1-3) Last Admin: 05/24/18 22:10 Dose: 650 mg Bacitracin (Bacitracin Oint) 1 applic TP DAILY [facility] Last Admin: 05/25/18 09:49 Dose: 1 applic Calcium Acetate (Phoslo) 667 mg PO TID [facility] Last Admin: 05/25/18 09:49 Dose: 667 mg Dapsone (Dapsone) 100 mg PO DAILY [facility]; Protocol Last Admin: 05/25/18 09:49 Dose: 100 mg Finasteride (Proscar) 5 mg PO DAILY [facility] Last Admin: 05/25/18 09:49 Dose: 5 mg Fluticasone Propionate (Flonase) 1 spr [place] DAILY PRN PRN Reason: Nasal congestion Aminocaproic Acid 24,000 mg/ (Dextrose) 1,096 mls @ 45.667 mls/hr IV .Q24H ONE Stop: 05/25/18 12:29 Last Admin: 05/24/18 18:17 Dose: 45.667 mls/hr Metoprolol Succinate (Toprol Xl) 50 mg PO Q12 [facility] Last Admin: 05/25/18 09:49 Dose: 50 mg Pantoprazole Sodium (Protonix Ec Tab) 40 mg PO DAILY [facility] Last Admin: 05/25/18 09:49 Dose: 40 mg Tamsulosin HCl (Flomax) 0.4 mg PO DAILY [facility] Last Admin: 05/25/18 09:49 Dose: 0.4 mg Vitamin B Complex/Vit C/Folic Acid (Nephro-Jj) 1 tab PO DAILY [facility] Last Admin: 05/25/18 09:49 Dose: 1 tab - Labs Labs: 05/25/18 04:20 05/25/18 04:20 PT 11.0 Seconds (9.8-13.1) 05/23/18 11:56 INR 1.0 05/23/18 11:56 APTT 26.1 Seconds (25.6-37.1) 05/23/18 11:56 - Head Exam Head Exam: ATRAUMATIC - Eye Exam Eye Exam: Normal appearance - ENT Exam ENT Exam: Mucous Membranes Dry - Respiratory Exam Respiratory Exam: NORMAL BREATHING PATTERN - Cardiovascular Exam Cardiovascular Exam: +S1, +S2 - GI/Abdominal Exam GI & Abdominal Exam: Normal Bowel Sounds Assessment and Plan (1) Hematuria Assessment & Plan: hypofibrinogenemia; 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 embolization ? prothrombin complex Status: Acute (2) Anemia Assessment & Plan: hematuria anemia of CKD Status: Acute (3) Prostate cancer Assessment & Plan: outpatient treatment Status: Acute
--- NOTE | 2018-05-25 10:16 | CP.PCM.PN ---
Subjective - Date & Time of Evaluation Date of Evaluation: 05/25/18 Time of Evaluation: 10:00 - Subjective Subjective: Appears comfortable Objective - Vital Signs/Intake and Output Vital Signs (last 24 hours): Temp Pulse Resp BP Pulse Ox 98.3 F 88 18 113/63 95 05/25/18 08:23 05/25/18 09:49 05/25/18 08:23 05/25/18 09:49 05/25/18 08:23 Intake and Output: 05/25/18 05/25/18 06:59 18:59 Intake Total 510 Output Total 600 Balance -90 - Medications Medications: Current Medications Acetaminophen (Tylenol 325mg Tab) 650 mg PO Q4 PRN PRN Reason: Fever >100.4 F Acetaminophen (Tylenol 325mg Tab) 650 mg PO Q4 PRN PRN Reason: Pain, Mild (1-3) Last Admin: 05/24/18 22:10 Dose: 650 mg Bacitracin (Bacitracin Oint) 1 applic TP DAILY [facility] Last Admin: 05/25/18 09:49 Dose: 1 applic Calcium Acetate (Phoslo) 667 mg PO TID [facility] Last Admin: 05/25/18 09:49 Dose: 667 mg Dapsone (Dapsone) 100 mg PO DAILY [facility]; Protocol Last Admin: 05/25/18 09:49 Dose: 100 mg Finasteride (Proscar) 5 mg PO DAILY [facility] Last Admin: 05/25/18 09:49 Dose: 5 mg Fluticasone Propionate (Flonase) 1 spr [place] DAILY PRN PRN Reason: Nasal congestion Aminocaproic Acid 24,000 mg/ (Dextrose) 1,096 mls @ 45.667 mls/hr IV .Q24H ONE Stop: 05/25/18 12:29 Last Admin: 05/24/18 18:17 Dose: 45.667 mls/hr Metoprolol Succinate (Toprol Xl) 50 mg PO Q12 [facility] Last Admin: 05/25/18 09:49 Dose: 50 mg Pantoprazole Sodium (Protonix Ec Tab) 40 mg PO DAILY [facility] Last Admin: 05/25/18 09:49 Dose: 40 mg Tamsulosin HCl (Flomax) 0.4 mg PO DAILY [facility] Last Admin: 05/25/18 09:49 Dose: 0.4 mg Vitamin B Complex/Vit C/Folic Acid (Nephro-Jj) 1 tab PO DAILY [facility] Last Admin: 05/25/18 09:49 Dose: 1 tab - Labs Labs: 05/25/18 04:20 05/25/18 04:20 PT 11.0 Seconds (9.8-13.1) 05/23/18 11:56 INR 1.0 05/23/18 11:56 APTT 26.1 Seconds (25.6-37.1) 05/23/18 11:56 - Head Exam Head Exam: ATRAUMATIC - Eye Exam Eye Exam: Normal appearance - ENT Exam ENT Exam: Mucous Membranes Dry - Respiratory Exam Respiratory Exam: NORMAL BREATHING PATTERN - Cardiovascular Exam Cardiovascular Exam: +S1, +S2 - GI/Abdominal Exam GI & Abdominal Exam: Normal Bowel Sounds Assessment and Plan (1) Hematuria Assessment & Plan: hypofibrinogenemia; 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 embolization ? prothrombin complex Status: Acute (2) Anemia Assessment & Plan: hematuria anemia of CKD Status: Acute (3) Prostate cancer Assessment & Plan: outpatient treatment Status: Acute
[2018-05-25 11:39] LABS: BANDS 1 % (0-2); LYMPHOCYTE 9 % (20-50); MONOCYTE 9 % (0-10); MYELOCYTE 1 % (0-0); NEUTROPHIL 80 % (42-75); PLATELET ESTIMATE NORMAL (NORMAL); TOTAL CELLS COUNTED 100
[2018-05-25 11:40] LABS: ANISOCYTOSIS SLIGHT; HYPOCHROMIC MODERATE
[2018-05-25 11:41] LABS: BURR CELLS SLIGHT; PLATELET CLUMPS PRESENT; TOXIC GRANULATION PRESENT
--- NOTE | 2018-05-25 13:26 | CP.PCM.PN ---
<John Pruitt - Last Filed: 05/25/18 13:23> Subjective - Date & Time of Evaluation Date of Evaluation: 05/25/18 Time of Evaluation: 07:00 - Subjective Subjective: No overnight events. No complaints. [place] tinge urine noted in hadley bag. Objective - Vital Signs/Intake and Output Vital Signs (last 24 hours): Temp Pulse Resp BP Pulse Ox 98.3 F 88 18 113/63 95 05/25/18 08:23 05/25/18 09:49 05/25/18 08:23 05/25/18 09:49 05/25/18 08:23 Intake and Output: 05/25/18 05/25/18 06:59 18:59 Intake Total 510 Output Total 600 Balance -90 - Medications Medications: Current Medications Acetaminophen (Tylenol 325mg Tab) 650 mg PO Q4 PRN PRN Reason: Fever >100.4 F Acetaminophen (Tylenol 325mg Tab) 650 mg PO Q4 PRN PRN Reason: Pain, Mild (1-3) Last Admin: 05/25/18 12:33 Dose: 650 mg Bacitracin (Bacitracin Oint) 1 applic TP DAILY [facility] Last Admin: 05/25/18 09:49 Dose: 1 applic Calcium Acetate (Phoslo) 667 mg PO TID [facility] Last Admin: 05/25/18 12:31 Dose: 667 mg Dapsone (Dapsone) 100 mg PO DAILY [facility]; Protocol Last Admin: 05/25/18 09:49 Dose: 100 mg Finasteride (Proscar) 5 mg PO DAILY [facility] Last Admin: 05/25/18 09:49 Dose: 5 mg Fluticasone Propionate (Flonase) 1 spr [place] DAILY PRN PRN Reason: Nasal congestion Metoprolol Succinate (Toprol Xl) 50 mg PO Q12 [facility] Last Admin: 05/25/18 09:49 Dose: 50 mg Pantoprazole Sodium (Protonix Ec Tab) 40 mg PO DAILY [facility] Last Admin: 05/25/18 09:49 Dose: 40 mg Tamsulosin HCl (Flomax) 0.4 mg PO DAILY [facility] Last Admin: 05/25/18 09:49 Dose: 0.4 mg Vitamin B Complex/Vit C/Folic Acid (Nephro-Jj) 1 tab PO DAILY [facility] Last Admin: 05/25/18 09:49 Dose: 1 tab - Labs Labs: 05/25/18 04:20 05/25/18 04:20 PT 11.0 Seconds (9.8-13.1) 05/23/18 11:56 INR 1.0 05/23/18 11:56 APTT 26.1 Seconds (25.6-37.1) 05/23/18 11:56 - Constitutional Appears: No Acute Distress - Head Exam Head Exam: NORMAL INSPECTION - Eye Exam Eye Exam: Normal appearance - ENT Exam ENT Exam: Mucous Membranes Moist - Neck Exam Neck Exam: Full ROM - Respiratory Exam Respiratory Exam: Clear to Ausculation Bilateral. absent: Rales, Wheezes - Cardiovascular Exam Cardiovascular Exam: REGULAR RHYTHM, +S1, +S2. absent: Murmur - GI/Abdominal Exam GI & Abdominal Exam: Soft, Normal Bowel Sounds. absent: Tenderness - Extremities Exam Extremities Exam: absent: Pedal Edema - Neurological Exam Neurological Exam: Alert, Oriented x3 - Psychiatric Exam Psychiatric exam: Normal Affect - Skin Skin Exam: Normal Color Assessment and Plan (1) ESRD (end stage renal disease) on dialysis Status: Chronic (2) Hematuria Status: Acute (3) Prostate cancer Status: Acute (4) Anemia Status: Acute - Assessment and Plan (Free Text) Assessment: 77 y/o M with a PMHx of ductal prostate cancer, ESRD, HTN, and Wageners Granul omatosis admitted due to gross hematuria at the intermediate. -Hematuria still present. -C/W Amikar drip and Crypercipitate transfustions as per Dr. Armas -Hemoglobin 7.6 today. Transfuse prn if continues to drop. -Nephrology on board: C/W HD TTS. Dialysis port placed today. -May need prostate embolization. Pt seen, examined, and case discussed with Dr. Tineo. John Pruitt, PGY2 <Hans Tineo - Last Filed: 05/30/18 02:53> Objective - Vital Signs/Intake and Output Vital Signs (last 24 hours): Temp Pulse Resp BP Pulse Ox 98.5 F 103 H 18 128/72 97 05/30/18 00:16 05/30/18 00:16 05/30/18 00:16 05/30/18 00:16 05/30/18 00:16 Intake and Output: 05/29/18 05/30/18 18:59 06:59 Intake Total 345 Balance 345 - Medications Medications: Current Medications Acetaminophen (Tylenol 325mg Tab) 650 mg PO Q4 PRN PRN Reason: Fever >100.4 F Acetaminophen (Tylenol 325mg Tab) 650 mg PO Q4 PRN PRN Reason: Pain, Mild (1-3) Last Admin: 05/25/18 22:02 Dose: 650 mg Bacitracin (Bacitracin Oint) 1 applic TP DAILY [facility] Last Admin: 05/29/18 14:45 Dose: 1 applic Calcium Acetate (Phoslo) 667 mg PO TID [facility] Last Admin: 05/29/18 16:56 Dose: Not Given Finasteride (Proscar) 5 mg PO DAILY [facility] Last Admin: 05/29/18 08:38 Dose: 5 mg Fluticasone Propionate (Flonase) 1 spr [place] DAILY PRN PRN Reason: Nasal congestion Heparin Sodium (Porcine) (Heparin) 4,000 units IVP [facility]; Protocol Stop: 05/30/18 14:46 Metoprolol Succinate (Toprol Xl) 50 mg PO Q12 [facility] Last Admin: 05/29/18 21:08 Dose: 50 mg Pantoprazole Sodium (Protonix Ec Tab) 40 mg PO DAILY [facility] Last Admin: 05/29/18 08:38 Dose: 40 mg Tamsulosin HCl (Flomax) 0.4 mg PO DAILY [facility] Last Admin: 05/29/18 08:39 Dose: 0.4 mg Vitamin B Complex/Vit C/Folic Acid (Nephro-Jj) 1 tab PO DAILY [facility] Last Admin: 05/29/18 08:38 Dose: 1 tab - Labs Labs: 05/29/18 06:48 05/29/18 06:48 PT 13.8 Seconds (9.8-13.1) H 05/25/18 16:15 INR 1.2 05/25/18 16:15 APTT 25.8 Seconds (25.6-37.1) 05/25/18 16:15 Assessment and Plan - Assessment and Plan (Free Text) Assessment: Patient was personally seen and examined by me in rounds with residents. Available labs and diagnostic data reviewed. Case, Patient's condition and management plan discussed with residents in rounds. Agree with resident's progress note. Plan: As ordered.
--- NOTE | 2018-05-25 14:04 | CP.PCM.PN ---
Subjective - Date & Time of Evaluation Date of Evaluation: 05/25/18 Time of Evaluation: 14:02 - Subjective Subjective: hemodialysis was canceled yesterday because of malfunction of dialysis catheter and has been replaced this morning Clinically no changes patient feeling okay no chest pain no shortness of breath Objective - Vital Signs/Intake and Output Vital Signs (last 24 hours): Temp Pulse Resp BP Pulse Ox 98.1 F 118 H 20 113/70 95 05/25/18 13:00 05/25/18 13:00 05/25/18 13:00 05/25/18 13:00 05/25/18 13:00 Intake and Output: 05/25/18 05/25/18 06:59 18:59 Intake Total 510 Output Total 600 Balance -90 - Medications Medications: Current Medications Acetaminophen (Tylenol 325mg Tab) 650 mg PO Q4 PRN PRN Reason: Fever >100.4 F Acetaminophen (Tylenol 325mg Tab) 650 mg PO Q4 PRN PRN Reason: Pain, Mild (1-3) Last Admin: 05/25/18 12:33 Dose: 650 mg Bacitracin (Bacitracin Oint) 1 applic TP DAILY [facility] Last Admin: 05/25/18 09:49 Dose: 1 applic Calcium Acetate (Phoslo) 667 mg PO TID [facility] Last Admin: 05/25/18 12:31 Dose: 667 mg Dapsone (Dapsone) 100 mg PO DAILY [facility]; Protocol Last Admin: 05/25/18 09:49 Dose: 100 mg Finasteride (Proscar) 5 mg PO DAILY [facility] Last Admin: 05/25/18 09:49 Dose: 5 mg Fluticasone Propionate (Flonase) 1 spr [place] DAILY PRN PRN Reason: Nasal congestion Metoprolol Succinate (Toprol Xl) 50 mg PO Q12 [facility] Last Admin: 05/25/18 09:49 Dose: 50 mg Pantoprazole Sodium (Protonix Ec Tab) 40 mg PO DAILY [facility] Last Admin: 05/25/18 09:49 Dose: 40 mg Tamsulosin HCl (Flomax) 0.4 mg PO DAILY [facility] Last Admin: 05/25/18 09:49 Dose: 0.4 mg Vitamin B Complex/Vit C/Folic Acid (Nephro-Jj) 1 tab PO DAILY [facility] Last Admin: 05/25/18 09:49 Dose: 1 tab - Labs Labs: 09/26/18 04:20 05/25/18 04:20 PT 11.0 Seconds (9.8-13.1) 05/23/18 11:56 INR 1.0 05/23/18 11:56 APTT 26.1 Seconds (25.6-37.1) 05/23/18 11:56 - Constitutional Appears: No Acute Distress - Eye Exam Eye Exam: Conjunctival injection - ENT Exam ENT Exam: Mucous Membranes Moist - Neck Exam Neck Exam: absent: Lymphadenopathy - Respiratory Exam Respiratory Exam: NORMAL BREATHING PATTERN. 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) gross hematuria which is significantly improving severe anemia prostatic CA the plan patient was transfused blood transfusion and other hematology product yesterday. continue hemodialysis TTS as scheduled Patient is still oozing from the urine *24 hours urine for creatinine clearance and protein showed protein 2.6 gram and creatinine clearance 15 mL per minute Also for history when the patient was diagnosed with the above diagnosis he has a following treatment Pulses steroid for 3 days Rituximab 1 g twice 4 weeks apart Oral steroid Plasma phoresis And the patient continued to need dialysis patient scheduled to have hemodialysis shortly Status: Chronic
[2018-05-25 16:40] LABS: INR 1.2; PROTHROMBIN TIME 13.8 Seconds (9.8-13.1)
[2018-05-25 16:42] LABS: PARTIAL THROMBOPLASTIN TIME 25.8 Seconds (25.6-37.1)
--- NOTE | 2018-05-26 08:50 | CP.PCM.PN ---
<John Pruitt - Last Filed: 05/26/18 08:48> Subjective - Date & Time of Evaluation Date of Evaluation: 05/26/18 Time of Evaluation: 07:00 - Subjective Subjective: No overnight events. No complaints. [place] tinge urine noted in hadley bag. Transfused PRBC yesterday. CBC am pending Objective - Vital Signs/Intake and Output Vital Signs (last 24 hours): Temp Pulse Resp BP Pulse Ox 98.0 F 92 H 20 129/80 96 05/26/18 08:01 05/26/18 08:01 05/26/18 08:01 05/26/18 08:01 05/26/18 08:01 Intake and Output: 05/26/18 05/26/18 06:59 18:59 Intake Total 0 Balance 0 - Medications Medications: Current Medications Acetaminophen (Tylenol 325mg Tab) 650 mg PO Q4 PRN PRN Reason: Fever >100.4 F Acetaminophen (Tylenol 325mg Tab) 650 mg PO Q4 PRN PRN Reason: Pain, Mild (1-3) Last Admin: 05/25/18 22:02 Dose: 650 mg Bacitracin (Bacitracin Oint) 1 applic TP DAILY [facility] Last Admin: 05/25/18 09:49 Dose: 1 applic Calcium Acetate (Phoslo) 667 mg PO TID [facility] Last Admin: 05/25/18 17:14 Dose: Not Given Dapsone (Dapsone) 100 mg PO DAILY [facility]; Protocol Last Admin: 05/25/18 09:49 Dose: 100 mg Finasteride (Proscar) 5 mg PO DAILY [facility] Last Admin: 05/25/18 09:49 Dose: 5 mg Fluticasone Propionate (Flonase) 1 spr [place] DAILY PRN PRN Reason: Nasal congestion Metoprolol Succinate (Toprol Xl) 50 mg PO Q12 [facility] Last Admin: 05/25/18 22:04 Dose: 50 mg Pantoprazole Sodium (Protonix Ec Tab) 40 mg PO DAILY [facility] Last Admin: 05/25/18 09:49 Dose: 40 mg Tamsulosin HCl (Flomax) 0.4 mg PO DAILY [facility] Last Admin: 05/25/18 09:49 Dose: 0.4 mg Vitamin B Complex/Vit C/Folic Acid (Nephro-Jj) 1 tab PO DAILY [facility] Last Admin: 05/25/18 09:49 Dose: 1 tab - Labs Labs: 05/25/18 04:20 05/25/18 04:20 PT 13.8 Seconds (9.8-13.1) H 05/25/18 16:15 INR 1.2 05/25/18 16:15 APTT 25.8 Seconds (25.6-37.1) 05/25/18 16:15 - Constitutional Appears: Non-toxic, No Acute Distress - Head Exam Head Exam: NORMOCEPHALIC - Eye Exam Eye Exam: Normal appearance - ENT Exam ENT Exam: Mucous Membranes Moist - Neck Exam Neck Exam: Full ROM - Respiratory Exam Respiratory Exam: Clear to Ausculation Bilateral. absent: Rales, Wheezes - Cardiovascular Exam Cardiovascular Exam: REGULAR RHYTHM - GI/Abdominal Exam GI & Abdominal Exam: Soft, Normal Bowel Sounds - Extremities Exam Extremities Exam: absent: Pedal Edema - Neurological Exam Neurological Exam: Alert, Awake - Psychiatric Exam Psychiatric exam: Normal Affect - Skin Skin Exam: Normal Color Assessment and Plan (1) ESRD (end stage renal disease) on dialysis Status: Chronic (2) Hematuria Status: Acute (3) Prostate cancer Status: Acute (4) Anemia Status: Acute - Assessment and Plan (Free Text) Assessment: 77 y/o M with a PMHx of ductal prostate cancer, ESRD, HTN, and Wageners Granulomatosis admitted due to gross hematuria at the longterm. HD today as tolerated. -Hematuria still present. -C/W Amikar drip and Crypercipitate transfustions as per Dr. Armas -Hemoglobin 7.6 yesterday, transfused 2 units PRBC, f/u am CBC. -Nephrology on board: C/W HD TTS. Dialysis port placed today. -May need prostate embolization. Urology on board. Pt seen, examined, and case discussed with Dr. Tineo. John Pruitt, PGY2 <Hans Tineo - Last Filed: 05/26/18 17:33> Objective - Vital Signs/Intake and Output Vital Signs (last 24 hours): Temp Pulse Resp BP Pulse Ox 98.8 F 94 H 18 115/76 97 05/26/18 16:40 05/26/18 16:40 05/26/18 16:40 05/26/18 16:40 05/26/18 16:40 Intake and Output: 05/26/18 05/26/18 06:59 18:59 Intake Total 0 740 Balance 0 740 - Medications Medications: Current Medications Acetaminophen (Tylenol 325mg Tab) 650 mg PO Q4 PRN PRN Reason: Fever >100.4 F Acetaminophen (Tylenol 325mg Tab) 650 mg PO Q4 PRN PRN Reason: Pain, Mild (1-3) Last Admin: 05/25/18 22:02 Dose: 650 mg Bacitracin (Bacitracin Oint) 1 applic TP DAILY [facility] Last Admin: 05/26/18 09:36 Dose: 1 applic Calcium Acetate (Phoslo) 667 mg PO TID [facility] Last Admin: 05/26/18 17:21 Dose: 667 mg Dapsone (Dapsone) 100 mg PO DAILY [facility]; Protocol Last Admin: 05/26/18 09:36 Dose: 100 mg Finasteride (Proscar) 5 mg PO DAILY [facility] Last Admin: 05/26/18 09:37 Dose: 5 mg Fluticasone Propionate (Flonase) 1 spr [place] DAILY PRN PRN Reason: Nasal congestion Metoprolol Succinate (Toprol Xl) 50 mg PO Q12 [facility] Last Admin: 05/26/18 09:37 Dose: 50 mg Pantoprazole Sodium (Protonix Ec Tab) 40 mg PO DAILY [facility] Last Admin: 05/26/18 09:37 Dose: 40 mg Tamsulosin HCl (Flomax) 0.4 mg PO DAILY [facility] Last Admin: 05/26/18 09:36 Dose: 0.4 mg Vitamin B Complex/Vit C/Folic Acid (Nephro-Jj) 1 tab PO DAILY [facility] Last Admin: 05/26/18 09:37 Dose: 1 tab - Labs Labs: 05/26/18 04:00 05/25/18 04:20 PT 13.8 Seconds (9.8-13.1) H 05/25/18 16:15 INR 1.2 05/25/18 16:15 APTT 25.8 Seconds (25.6-37.1) 05/25/18 16:15 Assessment and Plan - Assessment and Plan (Free Text) Assessment: Patient was personally seen and examined by me in rounds with residents. Available labs and diagnostic data reviewed. Case, Patient's condition and management plan discussed with residents in rounds. Agree with resident's progress note. Plan: As ordered.
[2018-05-26] MEDS: Bacitracin OINT 15GM TP SCH (09:36)
[2018-05-26] MEDS: Multivitamin Vitamin B Complex (Nephro-Vite) Tab PO SCH (09:37)
[2018-05-26] MEDS: Pantoprazole 40 mg EC Tab PO SCH (09:37)
[2018-05-26] MEDS: Metoprolol Succinate 50 mg XL Tab PO SCH ×2 (09:37→21:11)
--- NOTE | 2018-05-26 11:05 | CP.PCM.PN ---
Subjective - Date & Time of Evaluation Date of Evaluation: 05/26/18 Time of Evaluation: 11:04 - Subjective Subjective: patient feeling much better Objective - Vital Signs/Intake and Output Vital Signs (last 24 hours): Temp Pulse Resp BP Pulse Ox 98.0 F 92 H 20 129/80 96 05/26/18 08:01 05/26/18 09:37 05/26/18 08:01 05/26/18 09:37 05/26/18 08:01 Intake and Output: 05/26/18 05/26/18 06:59 18:59 Intake Total 0 Balance 0 - Medications Medications: Current Medications Acetaminophen (Tylenol 325mg Tab) 650 mg PO Q4 PRN PRN Reason: Fever >100.4 F Acetaminophen (Tylenol 325mg Tab) 650 mg PO Q4 PRN PRN Reason: Pain, Mild (1-3) Last Admin: 05/25/18 22:02 Dose: 650 mg Bacitracin (Bacitracin Oint) 1 applic TP DAILY [facility] Last Admin: 05/26/18 09:36 Dose: 1 applic Calcium Acetate (Phoslo) 667 mg PO TID [facility] Last Admin: 05/26/18 09:36 Dose: 667 mg Dapsone (Dapsone) 100 mg PO DAILY [facility]; Protocol Last Admin: 05/26/18 09:36 Dose: 100 mg Finasteride (Proscar) 5 mg PO DAILY [facility] Last Admin: 05/26/18 09:37 Dose: 5 mg Fluticasone Propionate (Flonase) 1 spr [facility] DAILY PRN PRN Reason: Nasal congestion Metoprolol Succinate (Toprol Xl) 50 mg PO Q12 [facility] Last Admin: 05/26/18 09:37 Dose: 50 mg Pantoprazole Sodium (Protonix Ec Tab) 40 mg PO DAILY [facility] Last Admin: 05/26/18 09:37 Dose: 40 mg Tamsulosin HCl (Flomax) 0.4 mg PO DAILY [facility] Last Admin: 05/26/18 09:36 Dose: 0.4 mg Vitamin B Complex/Vit C/Folic Acid (Nephro-Jj) 1 tab PO DAILY [facility] Last Admin: 05/26/18 09:37 Dose: 1 tab - Labs Labs: 05/25/18 04:20 05/25/18 04:20 PT 13.8 Seconds (9.8-13.1) H 05/25/18 16:15 INR 1.2 05/25/18 16:15 APTT 25.8 Seconds (25.6-37.1) 05/25/18 16:15 - Constitutional Appears: No Acute Distress - ENT Exam ENT Exam: Mucous Membranes Moist - Neck Exam Neck Exam: absent: Lymphadenopathy - Respiratory Exam Respiratory Exam: NORMAL BREATHING PATTERN. 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) gross hematuria which is significantly improving severe anemia prostatic CA the plan patient was transfused blood transfusion and other hematology product yesterday. continue hemodialysis TTS as scheduled Patient is still oozing from the urine patient transfused 2 units of packed cells yesterday and he did not complete hemodialysis because of malfunction of the new dialysis catheter *24 hours urine for creatinine clearance and protein showed protein 2.6 gram and creatinine clearance 15 mL per minute Also for history when the patient was diagnosed with the above diagnosis he has a following treatment Pulses steroid for 3 days Rituximab 1 g twice 4 weeks apart Oral steroid Plasma phoresis And the patient continued to need dialysis Status: Chronic
[2018-05-26 12:50] LABS: HEMOGLOBIN 8.3 g/dL (12.0-18.0); MEAN CELL VOLUME 92.1 fl (80.0-94.0); MEAN CORPUSCULAR HEMOGLOBIN 31.3 pg (27.0-31.0); RBC 2.66 Mil/uL (4.40-5.90); RED CELL DISTRIBUTION WIDTH 16.8 % (11.5-14.5); WHITE BLOOD COUNT 12.9 K/uL (4.8-10.8)
--- NOTE | 2018-05-26 13:11 | PN ---
DATE: 05/26/2018 SUBJECTIVE: The patient seen and examined. Interim events noted. Consults noted and appreciated. The patient remains in progressive care unit with telemetry monitoring. Feels okay. Denies any chest pain. No shortness of breath. No active bleeding. PHYSICAL EXAMINATION: GENERAL: The patient is in no acute distress. VITAL SIGNS: Stable. HEART: S1 and S2. Normal and regular. LUNGS: Good bilateral air exchange. ABDOMEN: Soft and nontender. EXTREMITIES: No edema. No calf swelling. No tenderness. No acute ischemia. CENTRAL NERVOUS SYSTEM: Exam is essentially unchanged. DIAGNOSTIC DATA: Available diagnostic data reviewed. Telemetry monitoring does not reveal significant arrhythmias. Hemoglobin is 7.6. ASSESSMENT AND PLAN: Overall, the patient is clinically stable. Banks catheter shows urine, but still the patient is oozing blood. He might need further management of bleeding, may be further cystoscopic fulguration, may be selective prostatic embolization. Plan as ordered. Hans Tineo MD
[2018-05-27] MEDS: Bacitracin OINT 15GM TP SCH (09:17)
[2018-05-27] MEDS: Multivitamin Vitamin B Complex (Nephro-Vite) Tab PO SCH (09:18)
[2018-05-27] MEDS: Metoprolol Succinate 50 mg XL Tab PO SCH ×3 (09:19→21:31)
[2018-05-27] MEDS: Pantoprazole 40 mg EC Tab PO SCH (09:19)
--- NOTE | 2018-05-27 10:31 | CP.PCM.PN ---
Subjective - Date & Time of Evaluation Date of Evaluation: 05/27/18 Time of Evaluation: 10:31 - Subjective Subjective: patient awake asymptomatic feeling good no chest pain Objective - Vital Signs/Intake and Output Vital Signs (last 24 hours): Temp Pulse Resp BP Pulse Ox 98.2 F 95 H 20 121/75 94 L 05/27/18 08:51 05/27/18 09:19 05/27/18 08:51 05/27/18 09:19 05/27/18 08:51 - Medications Medications: Current Medications Acetaminophen (Tylenol 325mg Tab) 650 mg PO Q4 PRN PRN Reason: Fever >100.4 F Acetaminophen (Tylenol 325mg Tab) 650 mg PO Q4 PRN PRN Reason: Pain, Mild (1-3) Last Admin: 05/25/18 22:02 Dose: 650 mg Bacitracin (Bacitracin Oint) 1 applic TP DAILY [facility] Last Admin: 05/27/18 09:17 Dose: 1 applic Calcium Acetate (Phoslo) 667 mg PO TID [facility] Last Admin: 05/27/18 09:18 Dose: 667 mg Dapsone (Dapsone) 100 mg PO DAILY [facility]; Protocol Last Admin: 05/27/18 09:17 Dose: 100 mg Finasteride (Proscar) 5 mg PO DAILY [facility] Last Admin: 05/27/18 09:19 Dose: 5 mg Fluticasone Propionate (Flonase) 1 spr [place] DAILY PRN PRN Reason: Nasal congestion Metoprolol Succinate (Toprol Xl) 50 mg PO Q12 [facility] Last Admin: 05/27/18 09:19 Dose: 50 mg Pantoprazole Sodium (Protonix Ec Tab) 40 mg PO DAILY [facility] Last Admin: 05/27/18 09:19 Dose: 40 mg Tamsulosin HCl (Flomax) 0.4 mg PO DAILY [facility] Last Admin: 05/27/18 09:17 Dose: 0.4 mg Vitamin B Complex/Vit C/Folic Acid (Nephro-Jj) 1 tab PO DAILY [facility] Last Admin: 05/27/18 09:18 Dose: 1 tab - Labs Labs: 05/26/18 04:00 05/25/18 04:20 PT 13.8 Seconds (9.8-13.1) H 05/25/18 16:15 INR 1.2 05/25/18 16:15 APTT 25.8 Seconds (25.6-37.1) 05/25/18 16:15 - Constitutional Appears: No Acute Distress - Eye Exam Eye Exam: Conjunctival injection - ENT Exam ENT Exam: Mucous Membranes Moist - Respiratory Exam Respiratory Exam: NORMAL BREATHING PATTERN. absent: Chest Wall Tenderness - Cardiovascular Exam Cardiovascular Exam: REGULAR RHYTHM. 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) gross hematuria which is significantly improving severe anemia prostatic CA coagulopathy with hypofibrinogenemia the plan transfusion of cryoprecipitate and blood as needed as per hematology continue hemodialysis MWFas scheduled Patient is still oozing from the urine *24 hours urine for creatinine clearance and protein showed protein 2.6 gram and creatinine clearance 15 mL per minute Also for history when the patient was diagnosed with the above diagnosis he has a following treatment Pulses steroid for 3 days Rituximab 1 g twice 4 weeks apart Oral steroid Plasma phoresis And the patient continued to need dialysis patient scheduled to have hemodialysis shortly Status: Chronic
--- NOTE | 2018-05-27 11:20 | CP.PCM.PN ---
<John Pruitt - Last Filed: 05/27/18 11:18> Subjective - Date & Time of Evaluation Date of Evaluation: 05/27/18 Time of Evaluation: 11:18 - Subjective Subjective: Seen and evaluated at the bedside with Dr. Tineo, denies hematuria. Labs reviewed, coagulopathy improving, hemoglobin stable. HD today. Objective - Vital Signs/Intake and Output Vital Signs (last 24 hours): Temp Pulse Resp BP Pulse Ox 98.2 F 95 H 20 121/75 94 L 05/27/18 08:51 05/27/18 09:19 05/27/18 08:51 05/27/18 09:19 05/27/18 08:51 - Medications Medications: Current Medications Acetaminophen (Tylenol 325mg Tab) 650 mg PO Q4 PRN PRN Reason: Fever >100.4 F Acetaminophen (Tylenol 325mg Tab) 650 mg PO Q4 PRN PRN Reason: Pain, Mild (1-3) Last Admin: 05/25/18 22:02 Dose: 650 mg Bacitracin (Bacitracin Oint) 1 applic TP DAILY [facility] Last Admin: 05/27/18 09:17 Dose: 1 applic Calcium Acetate (Phoslo) 667 mg PO TID [facility] Last Admin: 05/27/18 09:18 Dose: 667 mg Dapsone (Dapsone) 100 mg PO DAILY [facility]; Protocol Last Admin: 05/27/18 09:17 Dose: 100 mg Finasteride (Proscar) 5 mg PO DAILY [facility] Last Admin: 05/27/18 09:19 Dose: 5 mg Fluticasone Propionate (Flonase) 1 spr [facility] DAILY PRN PRN Reason: Nasal congestion Metoprolol Succinate (Toprol Xl) 50 mg PO Q12 [facility] Last Admin: 05/27/18 09:19 Dose: 50 mg Pantoprazole Sodium (Protonix Ec Tab) 40 mg PO DAILY [facility] Last Admin: 05/27/18 09:19 Dose: 40 mg Tamsulosin HCl (Flomax) 0.4 mg PO DAILY [facility] Last Admin: 05/27/18 09:17 Dose: 0.4 mg Vitamin B Complex/Vit C/Folic Acid (Nephro-Jj) 1 tab PO DAILY [facility] Last Admin: 05/27/18 09:18 Dose: 1 tab - Labs Labs: 05/26/18 04:00 05/25/18 04:20 PT 13.8 Seconds (9.8-13.1) H 05/25/18 16:15 INR 1.2 05/25/18 16:15 APTT 25.8 Seconds (25.6-37.1) 05/25/18 16:15 - Constitutional Appears: Toxic - Head Exam Head Exam: NORMAL INSPECTION - Eye Exam Eye Exam: Normal appearance - ENT Exam ENT Exam: Mucous Membranes Moist - Respiratory Exam Respiratory Exam: Clear to Ausculation Bilateral - Cardiovascular Exam Cardiovascular Exam: REGULAR RHYTHM - GI/Abdominal Exam GI & Abdominal Exam: Soft, Normal Bowel Sounds. absent: Tenderness - Extremities Exam Extremities Exam: Pedal Edema - Neurological Exam Neurological Exam: Alert, Awake, Oriented x3 - Psychiatric Exam Psychiatric exam: Normal Affect - Skin Skin Exam: Normal Color Assessment and Plan (1) ESRD (end stage renal disease) on dialysis Status: Chronic (2) Hematuria Status: Acute (3) Prostate cancer Status: Acute (4) Anemia Status: Acute - Assessment and Plan (Free Text) Assessment: 77 y/o M with a PMHx of ductal prostate cancer, ESRD, HTN, and Wageners Granulomatosis admitted due to gross hematuria at the skilled nursing. HD today as tolerated. -Hematuria improved. Fibrinogen 356. -C/W Jose drip and Crypercipitate transfustions as per Dr. Armas -Hemoglobin 8.3 today. -Nephrology on board: C/W HD TTS. -May need prostate embolization. Urology on board. Pt seen, examined, and case discussed with Dr. Tineo. John Pruitt, PGY2 <Hans Tineo - Last Filed: 05/30/18 02:52> Objective - Vital Signs/Intake and Output Vital Signs (last 24 hours): Temp Pulse Resp BP Pulse Ox 98.5 F 103 H 18 128/72 97 05/30/18 00:16 05/30/18 00:16 05/30/18 00:16 05/30/18 00:16 05/30/18 00:16 Intake and Output: 05/29/18 05/30/18 18:59 06:59 Intake Total 345 Balance 345 - Medications Medications: Current Medications Acetaminophen (Tylenol 325mg Tab) 650 mg PO Q4 PRN PRN Reason: Fever >100.4 F Acetaminophen (Tylenol 325mg Tab) 650 mg PO Q4 PRN PRN Reason: Pain, Mild (1-3) Last Admin: 05/25/18 22:02 Dose: 650 mg Bacitracin (Bacitracin Oint) 1 applic TP DAILY [facility] Last Admin: 05/29/18 14:45 Dose: 1 applic Calcium Acetate (Phoslo) 667 mg PO TID [facility] Last Admin: 05/29/18 16:56 Dose: Not Given Finasteride (Proscar) 5 mg PO DAILY [facility] Last Admin: 05/29/18 08:38 Dose: 5 mg Fluticasone Propionate (Flonase) 1 spr [place] DAILY PRN PRN Reason: Nasal congestion Heparin Sodium (Porcine) (Heparin) 4,000 units IVP [facility]; Protocol Stop: 05/30/18 14:46 Metoprolol Succinate (Toprol Xl) 50 mg PO Q12 [facility] Last Admin: 05/29/18 21:08 Dose: 50 mg Pantoprazole Sodium (Protonix Ec Tab) 40 mg PO DAILY [facility] Last Admin: 05/29/18 08:38 Dose: 40 mg Tamsulosin HCl (Flomax) 0.4 mg PO DAILY [facility] Last Admin: 05/29/18 08:39 Dose: 0.4 mg Vitamin B Complex/Vit C/Folic Acid (Nephro-Jj) 1 tab PO DAILY [facility] Last Admin: 05/29/18 08:38 Dose: 1 tab - Labs Labs: 05/29/18 06:48 05/29/18 06:48 PT 13.8 Seconds (9.8-13.1) H 05/25/18 16:15 INR 1.2 05/25/18 16:15 APTT 25.8 Seconds (25.6-37.1) 05/25/18 16:15 Assessment and Plan - Assessment and Plan (Free Text) Assessment: Patient was personally seen and examined by me in rounds with residents. Available labs and diagnostic data reviewed. Case, Patient's condition and management plan discussed with residents in [facility]. Agree with resident's progress note. Plan: As ordered.
--- NOTE | 2018-05-27 13:05 | VASCULAR ---
PROCEDURE: Date of procedure: 05/24/2018 Procedure: 1. Replacement of right IJ tunneled hemodialysis catheter, CPT 21496 Medications: 5 cubic centimeters 2 percent lidocaine Fluoroscopy time: 7.3 seconds Radiation: 1 mGy HISTORY: End-stage renal disease, nonfunctional HD catheter TECHNIQUE: Following informed consent and procedure time-out, the patient was placed supine on the interventional table. The existing right IJ tunneled hemodialysis catheter surrounding skin were prepped and draped in the usual sterile fashion. Spot fluoroscopic image showed a right IJ catheter in place. The existing catheter was then removed over a guidewire exchange for a new hemodialysis catheter, 19 centimeter cuff to tip. The catheter's tip is confirmed with spot radiograph and is in the SVC. The catheter was tested and has adequate blood flow for dialysis. The catheter was flushed and locked with heparin per specified amount. The catheter secured to the skin with a 0 silk suture. IMPRESSION: Replacement of right tunneled hemodialysis catheter for a new tunneled hemodialysis catheter. The catheter is positioned with tip in the superior vena cava. The catheter is functional and ready for use.
--- NOTE | 2018-05-27 23:59 | CP.PCM.PN ---
Subjective - Date & Time of Evaluation Date of Evaluation: 05/26/18 Time of Evaluation: 13:00 - Subjective Subjective: No complaints. pink tinged urine in hadley bag. Objective - Vital Signs/Intake and Output Vital Signs (last 24 hours): Temp Pulse Resp BP Pulse Ox 99.9 F H 110 H 18 142/70 98 05/27/18 19:51 05/27/18 21:00 05/27/18 19:51 05/27/18 19:51 05/27/18 19:51 Intake and Output: 05/27/18 05/28/18 18:59 06:59 Intake Total 240 Balance 240 - Medications Medications: Current Medications Acetaminophen (Tylenol 325mg Tab) 650 mg PO Q4 PRN PRN Reason: Fever >100.4 F Acetaminophen (Tylenol 325mg Tab) 650 mg PO Q4 PRN PRN Reason: Pain, Mild (1-3) Last Admin: 05/25/18 22:02 Dose: 650 mg Bacitracin (Bacitracin Oint) 1 applic TP DAILY [facility] Last Admin: 05/27/18 09:17 Dose: 1 applic Calcium Acetate (Phoslo) 667 mg PO TID [facility] Last Admin: 05/27/18 17:01 Dose: 667 mg Dapsone (Dapsone) 100 mg PO DAILY [facility]; Protocol Last Admin: 05/27/18 09:17 Dose: 100 mg Finasteride (Proscar) 5 mg PO DAILY [facility] Last Admin: 05/27/18 09:19 Dose: 5 mg Fluticasone Propionate (Flonase) 1 spr [place] DAILY PRN PRN Reason: Nasal congestion Metoprolol Succinate (Toprol Xl) 50 mg PO Q12 [facility] Last Admin: 05/27/18 21:31 Dose: Not Given Pantoprazole Sodium (Protonix Ec Tab) 40 mg PO DAILY [facility] Last Admin: 05/27/18 09:19 Dose: 40 mg Tamsulosin HCl (Flomax) 0.4 mg PO DAILY [facility] Last Admin: 05/27/18 09:17 Dose: 0.4 mg Vitamin B Complex/Vit C/Folic Acid (Nephro-Jj) 1 tab PO DAILY [facility] Last Admin: 05/27/18 09:18 Dose: 1 tab - Labs Labs: 05/26/18 04:00 05/25/18 04:20 PT 13.8 Seconds (9.8-13.1) H 05/25/18 16:15 INR 1.2 05/25/18 16:15 APTT 25.8 Seconds (25.6-37.1) 05/25/18 16:15 - Head Exam Head Exam: ATRAUMATIC - Eye Exam Eye Exam: Normal appearance - ENT Exam ENT Exam: Mucous Membranes Dry - Respiratory Exam Respiratory Exam: NORMAL BREATHING PATTERN - Cardiovascular Exam Cardiovascular Exam: +S1, +S2 - GI/Abdominal Exam GI & Abdominal Exam: Normal Bowel Sounds Assessment and Plan (1) Hematuria Assessment & Plan: hypofibrinogenemia; 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 embolization ? prothrombin complex Status: Acute (2) Anemia Assessment & Plan: anemia of CKD Status: Acute (3) Prostate cancer Assessment & Plan: outpatient treatment Status: Acute
--- NOTE | 2018-05-28 00:02 | CP.PCM.PN ---
Subjective - Date & Time of Evaluation Date of Evaluation: 05/27/18 Time of Evaluation: 18:00 - Subjective Subjective: No complaints, pink tinged urine Objective - Vital Signs/Intake and Output Vital Signs (last 24 hours): Temp Pulse Resp BP Pulse Ox 99.9 F H 110 H 18 142/70 98 05/27/18 19:51 05/27/18 21:00 05/27/18 19:51 05/27/18 19:51 05/27/18 19:51 Intake and Output: 05/27/18 05/28/18 18:59 06:59 Intake Total 240 Balance 240 - Medications Medications: Current Medications Acetaminophen (Tylenol 325mg Tab) 650 mg PO Q4 PRN PRN Reason: Fever >100.4 F Acetaminophen (Tylenol 325mg Tab) 650 mg PO Q4 PRN PRN Reason: Pain, Mild (1-3) Last Admin: 05/25/18 22:02 Dose: 650 mg Bacitracin (Bacitracin Oint) 1 applic TP DAILY [facility] Last Admin: 05/27/18 09:17 Dose: 1 applic Calcium Acetate (Phoslo) 667 mg PO TID [facility] Last Admin: 05/27/18 17:01 Dose: 667 mg Dapsone (Dapsone) 100 mg PO DAILY [facility]; Protocol Last Admin: 05/27/18 09:17 Dose: 100 mg Finasteride (Proscar) 5 mg PO DAILY [facility] Last Admin: 05/27/18 09:19 Dose: 5 mg Fluticasone Propionate (Flonase) 1 spr [facility] DAILY PRN PRN Reason: Nasal congestion Metoprolol Succinate (Toprol Xl) 50 mg PO Q12 [facility] Last Admin: 05/27/18 21:31 Dose: Not Given Pantoprazole Sodium (Protonix Ec Tab) 40 mg PO DAILY [facility] Last Admin: 05/27/18 09:19 Dose: 40 mg Tamsulosin HCl (Flomax) 0.4 mg PO DAILY [facility] Last Admin: 05/27/18 09:17 Dose: 0.4 mg Vitamin B Complex/Vit C/Folic Acid (Nephro-Jj) 1 tab PO DAILY [facility] Last Admin: 05/27/18 09:18 Dose: 1 tab - Labs Labs: 05/26/18 04:00 05/25/18 04:20 PT 13.8 Seconds (9.8-13.1) H 05/25/18 16:15 INR 1.2 05/25/18 16:15 APTT 25.8 Seconds (25.6-37.1) 05/25/18 16:15 - Head Exam Head Exam: ATRAUMATIC - Eye Exam Eye Exam: Normal appearance - ENT Exam ENT Exam: Mucous Membranes Dry - Respiratory Exam Respiratory Exam: NORMAL BREATHING PATTERN - Cardiovascular Exam Cardiovascular Exam: +S1, +S2 - GI/Abdominal Exam GI & Abdominal Exam: Normal Bowel Sounds Assessment and Plan (1) Hematuria Assessment & Plan: hypofibrinogenemia; 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 embolization ? prothrombin complex Status: Acute (2) Anemia Assessment & Plan: hematuria anemia of CKD transfusion support PRN Status: Acute (3) Prostate cancer Assessment & Plan: outpatient treatment Status: Acute
[2018-05-28] MEDS: Bacitracin OINT 15GM TP SCH (10:33)
[2018-05-28] MEDS: Multivitamin Vitamin B Complex (Nephro-Vite) Tab PO SCH (10:34)
--- NOTE | 2018-05-28 10:34 | CP.PCM.PN ---
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 check left arm doppler r/o DVT. s/p plasmapharesis 4 session s/p steroids and rituxan (04/05/18 and 04/21): 24 hr crcl still at 15 Hypertension control with meds as ordered. Patient not on ACEI/ARB due to recent QUINTON, consider to add if BP elevated Monitor Input/Output, daily weights and renal function with basic metabolic panel heme input Re: use of epogen in view of his prostate cancer. PRBC as needed for anemia. on phoslo as binders, last Phos level 3.4 and Heme follow up. Further work up/management as per primary team Dose meds/antibiotics (if needed) for ESRD status. Avoid fleets enema/magnesium based laxatives. Thanks for allowing me to participate in care of your patient. Will follow patient with you. Please call if any Qs. Dr Dominguez Nix Office: [phone] Subjective: seen and examined no complaints denies CP/SOB no nasuea/vomiting new onset left arm swelling and pain Physical Examination: General Appearance: Comfortable, in no acute respiratory distress, co-operative Vitals reviewed and noted as below Head; Atraumatic, normocephalic ENT: no ulcers no thrush. Tongue is midline. Oropharynx: no rash or ulcers. EYES: Pupils are equal, round and reactive to light accommodation. Eye muscles and extraocular movement intact. Sclera is anicteric. Neck; supple no lymphadenopathy, no thyromegaly or bruit Lungs: Normal respiratory rate/effort. Breath sounds bilateral decreased at bases Heart: Normal rate. s1s2 normal. No rub or gallop. Extremities: 2+ edema. No varicose veins. left upper extr painful and swollen Neurological: Patient is alert, awake and oriented to person, place and time. No focal deficit. Strength bilateral appropriate and equal Skin: Warm and dry. Normal turgor. No rash. Palpitation: Normal elasticity for age Abdomen: Abdomen is soft. Bowel sounds +. There is no abdominal tenderness, no guarding/rigidity no organomegaly Psych: lackl insight and normal affect/mood MSK: no joint tenderness or swelling. Digits and nails normal, no deformity : kidney or bladder not palpable. access: tunnelled cathether Labs/imaging reviewed. Past medical history, past surgical history, family history, social history, allergy reviewed and noted as below Family hx: no hx of CKD. Rest non-contributory Objective - Vital Signs/Intake and Output Vital Signs (last 24 hours): Temp Pulse Resp BP Pulse Ox 98.1 F 98 H 19 128/73 94 L 05/28/18 08:16 05/28/18 08:16 05/28/18 08:16 05/28/18 08:16 05/28/18 08:16 - Medications Medications: Current Medications Acetaminophen (Tylenol 325mg Tab) 650 mg PO Q4 PRN PRN Reason: Fever >100.4 F Acetaminophen (Tylenol 325mg Tab) 650 mg PO Q4 PRN PRN Reason: Pain, Mild (1-3) Last Admin: 05/25/18 22:02 Dose: 650 mg Bacitracin (Bacitracin Oint) 1 applic TP DAILY [facility] Last Admin: 05/27/18 09:17 Dose: 1 applic Calcium Acetate (Phoslo) 667 mg PO TID [facility] Last Admin: 05/27/18 17:01 Dose: 667 mg Dapsone (Dapsone) 100 mg PO DAILY [facility]; Protocol Last Admin: 05/27/18 09:17 Dose: 100 mg Finasteride (Proscar) 5 mg PO DAILY [facility] Last Admin: 05/27/18 09:19 Dose: 5 mg Fluticasone Propionate (Flonase) 1 spr [facility] DAILY PRN PRN Reason: Nasal congestion Metoprolol Succinate (Toprol Xl) 50 mg PO Q12 [facility] Last Admin: 05/27/18 21:31 Dose: Not Given Pantoprazole Sodium (Protonix Ec Tab) 40 mg PO DAILY [facility] Last Admin: 05/27/18 09:19 Dose: 40 mg Tamsulosin HCl (Flomax) 0.4 mg PO DAILY [facility] Last Admin: 05/27/18 09:17 Dose: 0.4 mg Vitamin B Complex/Vit C/Folic Acid (Nephro-Jj) 1 tab PO DAILY [facility] Last Admin: 05/27/18 09:18 Dose: 1 tab - Labs Labs: 05/26/18 04:00 05/25/18 04:20 PT 13.8 Seconds (9.8-13.1) H 05/25/18 16:15 INR 1.2 05/25/18 16:15 APTT 25.8 Seconds (25.6-37.1) 05/25/18 16:15
[2018-05-28] MEDS: Metoprolol Succinate 50 mg XL Tab PO SCH ×2 (10:35→21:29)
[2018-05-28] MEDS: Pantoprazole 40 mg EC Tab PO SCH (10:36)
--- NOTE | 2018-05-28 12:20 | US ---
Date of service: 05/28/2018 PROCEDURE: Left Upper Extremity Venous Doppler HISTORY: edema of left upper ext. COMPARISON: None available. TECHNIQUE: Left upper extremity deep veins, including the lower internal jugular, subclavian, axillary and brachial veins, were evaluated flow, compressibility and respiratory phasicity. Basilic, cephalic, ulnar and radial veins were also evaluated. FINDINGS: Normal flow, compressibility and respiratory phasicity was observed in the the left upper extremity deep veins. 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 The ulnar vein was not well-visualized due to subcutaneous edema. IMPRESSION: No evidence of deep venous thrombosis.
[2018-05-28] MEDS ORDERED: Heparin Sodium (Porcine) 1,000 Units/ML 30ML IV SCH (13:45)
--- NOTE | 2018-05-28 14:07 | PN ---
DATE: 05/28/2018 SUBJECTIVE: The patient seen and examined. Interim events noted. Consults noted and appreciated. Hematology followup and intervention noted and appreciated. The patient remains in progressive care unit, on telemetry monitoring, awake, responsive. Denies any specific complaint of chest pain, shortness of breath or any urinary symptoms. PHYSICAL EXAMINATION: GENERAL: The patient is in no acute distress. VITAL SIGNS: Stable. HEART: S1 and S2, normal and regular. LUNGS: Good bilateral air exchange. ABDOMEN: Soft, nontender. EXTREMITIES: No edema. No calf swelling. No tenderness. No acute ischemia. TAX SERVICES PROFESSIONAL: Exam is essentially unchanged. Diagnostic data: Available diagnostic data reviewed. Telemetry monitoring does not reveal significant arrhythmia. ASSESSMENT AND PLAN: Overall, the patient's general medical condition is stable. Plan as ordered. Hans Tineo MD
[2018-05-29 07:02] LABS: MEAN CELL VOLUME 95.9 fl (80.0-94.0); MEAN CORPUSCULAR HEMOGLOBIN 31.2 pg (27.0-31.0); MEAN CORPUSCULAR HGB CONC 32.5 g/dL (33.0-37.0); RBC 2.25 Mil/uL (4.40-5.90); RED CELL DISTRIBUTION WIDTH 17.9 % (11.5-14.5); WHITE BLOOD COUNT 9.9 K/uL (4.8-10.8)
[2018-05-29 07:26] LABS: ALB/GLOB RATIO 0.9 (1.0-2.1); ALBUMIN 2.1 g/dL (3.5-5.0); CALCIUM 7.7 mg/dL (8.4-10.2)
[2018-05-29] MEDS: Multivitamin Vitamin B Complex (Nephro-Vite) Tab PO SCH (08:38)
[2018-05-29] MEDS: Pantoprazole 40 mg EC Tab PO SCH (08:38)
[2018-05-29] MEDS: Metoprolol Succinate 50 mg XL Tab PO SCH ×2 (08:41→21:08)
--- NOTE | 2018-05-29 12:03 | CP.PCM.PN ---
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 left arm doppler USG checked and No DVT. s/p plasmapharesis 4 session s/p steroids and rituxan (04/05/18 and 04/21): 24 hr crcl still at 15 Hypertension control with meds as ordered. Patient not on ACEI/ARB due to recent QUINTON, consider to add if BP elevated Monitor Input/Output, daily weights and renal function with basic metabolic panel heme input Re: use of epogen in view of his prostate cancer. PRBC as needed for anemia. on phoslo as binders, last Phos level 3.4 and Heme follow up. Further work up/management as per primary team Dose meds/antibiotics (if needed) for ESRD status. Avoid fleets enema/magnesium based laxatives. Thanks for allowing me to participate in care of your patient. Will follow patient with you. Please call if any Qs. Dr Dominguez Nix Office: [phone] Subjective: seen and examined no complaints denies CP/SOB no nasuea/vomiting new onset left arm swelling and pain Physical Examination: General Appearance: Comfortable, in no acute respiratory distress, co-operative Vitals reviewed and noted as below Head; Atraumatic, normocephalic ENT: no ulcers no thrush. Tongue is midline. Oropharynx: no rash or ulcers. EYES: Pupils are equal, round and reactive to light accommodation. Eye muscles and extraocular movement intact. Sclera is anicteric. Neck; supple no lymphadenopathy, no thyromegaly or bruit Lungs: Normal respiratory rate/effort. Breath sounds bilateral decreased at bases Heart: Normal rate. s1s2 normal. No rub or gallop. Extremities: 2+ edema. No varicose veins. left upper extr painful and swollen Neurological: Patient is alert, awake and oriented to person, place and time. No focal deficit. Strength bilateral appropriate and equal Skin: Warm and dry. Normal turgor. No rash. Palpitation: Normal elasticity for age Abdomen: Abdomen is soft. Bowel sounds +. There is no abdominal tenderness, no guarding/rigidity no organomegaly Psych: lackl insight and normal affect/mood MSK: no joint tenderness or swelling. Digits and nails normal, no deformity : kidney or bladder not palpable. access: tunnelled cathether Labs/imaging reviewed. Past medical history, past surgical history, family history, social history, allergy reviewed and noted as below Family hx: no hx of CKD. Rest non-contributory Objective - Vital Signs/Intake and Output Vital Signs (last 24 hours): Temp Pulse Resp BP Pulse Ox 98.4 F 96 H 18 136/80 96 05/29/18 08:46 05/29/18 09:00 05/29/18 08:46 05/29/18 08:46 05/29/18 08:46 - Medications Medications: Current Medications Acetaminophen (Tylenol 325mg Tab) 650 mg PO Q4 PRN PRN Reason: Fever >100.4 F Acetaminophen (Tylenol 325mg Tab) 650 mg PO Q4 PRN PRN Reason: Pain, Mild (1-3) Last Admin: 05/25/18 22:02 Dose: 650 mg Bacitracin (Bacitracin Oint) 1 applic TP DAILY [facility] Last Admin: 05/28/18 10:33 Dose: 1 applic Calcium Acetate (Phoslo) 667 mg PO TID [facility] Last Admin: 05/29/18 08:38 Dose: 667 mg Finasteride (Proscar) 5 mg PO DAILY [facility] Last Admin: 05/29/18 08:38 Dose: 5 mg Fluticasone Propionate (Flonase) 1 spr [place] DAILY PRN PRN Reason: Nasal congestion Heparin Sodium (Porcine) (Heparin) 4,000 units IVP POSTDI [facility]; Protocol Stop: 05/30/18 14:46 Metoprolol Succinate (Toprol Xl) 50 mg PO Q12 [facility] Last Admin: 05/29/18 08:41 Dose: 50 mg Pantoprazole Sodium (Protonix Ec Tab) 40 mg PO DAILY [facility] Last Admin: 05/29/18 08:38 Dose: 40 mg Tamsulosin HCl (Flomax) 0.4 mg PO DAILY [facility] Last Admin: 05/29/18 08:39 Dose: 0.4 mg Vitamin B Complex/Vit C/Folic Acid (Nephro-Jj) 1 tab PO DAILY [facility] Last Admin: 05/29/18 08:38 Dose: 1 tab - Labs Labs: 05/29/18 06:48 05/29/18 06:48 PT 13.8 Seconds (9.8-13.1) H 05/25/18 16:15 INR 1.2 05/25/18 16:15 APTT 25.8 Seconds (25.6-37.1) 05/25/18 16:15
[2018-05-29] MEDS: Bacitracin OINT 15GM TP SCH (14:45)
--- NOTE | 2018-05-30 08:35 | PN ---
DATE: 05/29/2018 SUBJECTIVE: The patient seen and examined. Interim events noted. Consults noted and appreciated. The patient remains in progressive care unit on telemetry monitoring. The patient is sleeping, arousable, feels okay. Denies any specific complaint of chest pain, shortness of breath, abdominal pain, or any urinary complaints. No specific issues reported by Nursing staff. PHYSICAL EXAMINATION: GENERAL: The patient is in no acute distress. VITAL SIGNS: Stable. HEART: S1, S2, normal and regular. LUNGS: Good bilateral air exchange. ABDOMEN: Soft, nontender. No organomegaly. No fluid. Bowel sounds are present and normal. EXTREMITIES: No edema. No calf swelling. No tenderness. No acute ischemia. 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 DIAGNOSTIC DATA: Available diagnostic data reviewed. ASSESSMENT AND PLAN: Overall, the patient's general medical condition is stable. Telemetry monitoring does not reveal significant arrhythmia. Plan as ordered. Hans Tineo MD
--- NOTE | 2018-05-30 10:14 | CP.PCM.PN ---
Subjective - Date & Time of Evaluation Date of Evaluation: 05/30/18 Time of Evaluation: 10:12 - Subjective Subjective: patient conscious and alert not in acute distress appears to be comfortable. No nausea no vomiting Objective - Vital Signs/Intake and Output Vital Signs (last 24 hours): Temp Pulse Resp BP Pulse Ox 98.0 F 89 18 145/78 97 05/30/18 08:22 05/30/18 08:22 05/30/18 08:22 05/30/18 08:22 05/30/18 08:22 - Medications Medications: Current Medications Acetaminophen (Tylenol 325mg Tab) 650 mg PO Q4 PRN PRN Reason: Fever >100.4 F Acetaminophen (Tylenol 325mg Tab) 650 mg PO Q4 PRN PRN Reason: Pain, Mild (1-3) Last Admin: 05/25/18 22:02 Dose: 650 mg Bacitracin (Bacitracin Oint) 1 applic TP DAILY [facility] Last Admin: 05/29/18 14:45 Dose: 1 applic Calcium Acetate (Phoslo) 667 mg PO TID [facility] Last Admin: 05/29/18 16:56 Dose: Not Given Finasteride (Proscar) 5 mg PO DAILY [facility] Last Admin: 05/29/18 08:38 Dose: 5 mg Fluticasone Propionate (Flonase) 1 spr [place] DAILY PRN PRN Reason: Nasal congestion Heparin Sodium (Porcine) (Heparin) 4,000 units IVP POSTDI [facility]; Protocol Stop: 05/30/18 14:46 Metoprolol Succinate (Toprol Xl) 50 mg PO Q12 [facility] Last Admin: 05/29/18 21:08 Dose: 50 mg Pantoprazole Sodium (Protonix Ec Tab) 40 mg PO DAILY [facility] Last Admin: 05/29/18 08:38 Dose: 40 mg Tamsulosin HCl (Flomax) 0.4 mg PO DAILY [facility] Last Admin: 05/29/18 08:39 Dose: 0.4 mg Vitamin B Complex/Vit C/Folic Acid (Nephro-Jj) 1 tab PO DAILY [facility] Last Admin: 05/29/18 08:38 Dose: 1 tab - Labs Labs: 05/29/18 06:48 05/29/18 06:48 PT 13.8 Seconds (9.8-13.1) H 05/25/18 16:15 INR 1.2 05/25/18 16:15 APTT 25.8 Seconds (25.6-37.1) 05/25/18 16:15 - Constitutional Appears: No Acute Distress - Eye Exam Eye Exam: absent: Conjunctival injection - ENT Exam ENT Exam: Mucous Membranes Moist - Neck Exam Neck Exam: absent: Lymphadenopathy - Respiratory Exam Respiratory Exam: NORMAL BREATHING PATTERN. 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) gross hematuria which is significantly improving severe anemia prostatic CA coagulopathy with hypofibrinogenemia the plan transfusion of cryoprecipitate and blood as needed as per hematology continue hemodialysis TTS as scheduled Patient is still oozing from the urine *24 hours urine for creatinine clearance and protein showed protein 2.6 gram and creatinine clearance 15 mL per minute Also for history when the patient was diagnosed with the above diagnosis he has a following treatment Pulses steroid for 3 days Rituximab 1 g twice 4 weeks apart Oral steroid Plasma phoresis And the patient continued to need dialysis patient scheduled to have hemodialysis shortly Status: Chronic
[2018-05-30] MEDS: Bacitracin OINT 15GM TP SCH (10:28)
[2018-05-30] MEDS: Metoprolol Succinate 50 mg XL Tab PO SCH ×2 (10:28→21:00)
[2018-05-30] MEDS: Multivitamin Vitamin B Complex (Nephro-Vite) Tab PO SCH (10:28)
[2018-05-30] MEDS: Pantoprazole 40 mg EC Tab PO SCH (10:29)
--- NOTE | 2018-05-30 12:56 | PN ---
DATE: 05/30/2018 SUBJECTIVE: The patient seen and examined. Interim events noted. Consults noted and appreciated. The patient remains in progressive care unit, on telemetry monitoring, sleeping, arousable, feels okay. Has no new complaint of chest pain. No shortness of breath. No complaint of gross hematuria. PHYSICAL EXAMINATION: GENERAL: The patient is in no acute distress. VITAL SIGNS: Stable. HEART: S1 and S2. Normal and regular. LUNGS: Good bilateral air exchange. ABDOMEN: Soft, nontender. EXTREMITIES: No edema. No calf swelling. No tenderness. No acute ischemia. DIRECTOR OF CULTURE: Exam is essentially unchanged. DIAGNOSTIC DATA: Available diagnostic data reviewed. Telemetry monitoring does not reveal significant arrhythmia. ASSESSMENT AND PLAN: Overall, the patient's general medical condition is stable. Plan as ordered. Hans Tineo MD
[2018-05-30 13:56] LABS: HEMOGLOBIN 7.6 g/dL (12.0-18.0); MEAN CELL VOLUME 92.7 fl (80.0-94.0); MEAN CORPUSCULAR HEMOGLOBIN 31.5 pg (27.0-31.0); MEAN CORPUSCULAR HGB CONC 33.9 g/dL (33.0-37.0); RBC 2.42 Mil/uL (4.40-5.90); RED CELL DISTRIBUTION WIDTH 17.8 % (11.5-14.5); WHITE BLOOD COUNT 9.2 K/uL (4.8-10.8)
[2018-05-30 14:10] LABS: ALB/GLOB RATIO 0.8 (1.0-2.1); ALBUMIN 2.1 g/dL (3.5-5.0)
--- NOTE | 2018-05-31 09:23 | CP.PCM.PN ---
Subjective - Date & Time of Evaluation Date of Evaluation: 05/31/18 Time of Evaluation: 09:22 - Subjective Subjective: dialysis note patient awake and conscious no Nausea and no vomiting losing blood from the urine Objective - Vital Signs/Intake and Output Vital Signs (last 24 hours): Temp Pulse Resp BP Pulse Ox 98 F 108 H 20 133/74 98 05/31/18 08:08 05/31/18 08:08 05/31/18 08:08 05/31/18 08:08 05/31/18 08:08 - Medications Medications: Current Medications Acetaminophen (Tylenol 325mg Tab) 650 mg PO Q4 PRN PRN Reason: Fever >100.4 F Acetaminophen (Tylenol 325mg Tab) 650 mg PO Q4 PRN PRN Reason: Pain, Mild (1-3) Last Admin: 05/25/18 22:02 Dose: 650 mg Bacitracin (Bacitracin Oint) 1 applic TP DAILY [facility] Last Admin: 05/30/18 10:28 Dose: 1 applic Calcium Acetate (Phoslo) 667 mg PO TID [facility] Last Admin: 05/30/18 17:49 Dose: Not Given Finasteride (Proscar) 5 mg PO DAILY [facility] Last Admin: 05/30/18 10:28 Dose: 5 mg Fluticasone Propionate (Flonase) 1 spr [place] DAILY PRN PRN Reason: Nasal congestion Metoprolol Succinate (Toprol Xl) 50 mg PO Q12 [facility] Last Admin: 05/30/18 21:00 Dose: 50 mg Pantoprazole Sodium (Protonix Ec Tab) 40 mg PO DAILY [facility] Last Admin: 05/30/18 10:29 Dose: 40 mg Tamsulosin HCl (Flomax) 0.4 mg PO DAILY [facility] Last Admin: 05/30/18 10:29 Dose: 0.4 mg Vitamin B Complex/Vit C/Folic Acid (Nephro-Jj) 1 tab PO DAILY [facility] Last Admin: 05/30/18 10:28 Dose: 1 tab - Labs Labs: 05/30/18 13:30 05/30/18 13:30 PT 13.8 Seconds (9.8-13.1) H 05/25/18 16:15 INR 1.2 05/25/18 16:15 APTT 25.8 Seconds (25.6-37.1) 05/25/18 16:15 - Constitutional Appears: No Acute Distress - Eye Exam Eye Exam: Conjunctival injection - ENT Exam ENT Exam: Mucous Membranes Moist - Neck Exam Neck Exam: absent: Lymphadenopathy - Respiratory Exam Respiratory Exam: NORMAL BREATHING PATTERN. absent: Chest Wall Tenderness - Cardiovascular Exam Cardiovascular Exam: absent: Gallop, JVD, Rubs - GI/Abdominal Exam GI & Abdominal Exam: Soft, Normal Bowel Sounds - Extremities Exam Extremities Exam: Pedal Edema. 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) gross hematuria which is significantly improving severe anemia prostatic CA coagulopathy with hypofibrinogenemia the plan transfusion of cryoprecipitate and blood as needed as per hematology cut down on hemodialysis to twice a week Patient is still oozing from the urine *24 hours urine for creatinine clearance and protein showed protein 2.6 gram and creatinine clearance 15 mL per minute Also for history when the patient was diagnosed with the above diagnosis he has a following treatment Pulses steroid for 3 days Rituximab 1 g twice 4 weeks apart Oral steroid Plasma phoresis And the patient continued to need dialysis patient scheduled to have hemodialysis shortly he was seen on hemodialysis now discussed with the dialysis nurse at the bedside. Patient to receive blood transfusion now and to do ultrafiltration perhaps 3000 mL as tolerated. Status: Chronic
[2018-05-31 09:51] LABS: HEMOGLOBIN 7.3 g/dL (12.0-18.0); MEAN CELL VOLUME 92.9 fl (80.0-94.0); MEAN CORPUSCULAR HEMOGLOBIN 31.6 pg (27.0-31.0); RBC 2.33 Mil/uL (4.40-5.90); RED CELL DISTRIBUTION WIDTH 17.5 % (11.5-14.5); WHITE BLOOD COUNT 10.4 K/uL (4.8-10.8)
[2018-05-31] MEDS: Metoprolol Succinate 50 mg XL Tab PO SCH ×2 (10:00→21:00)
[2018-05-31] MEDS: Bacitracin OINT 15GM TP SCH (10:02)
[2018-05-31] MEDS: Pantoprazole 40 mg EC Tab PO SCH (10:03)
[2018-05-31] MEDS: Multivitamin Vitamin B Complex (Nephro-Vite) Tab PO SCH (10:03)
[2018-05-31 10:48] LABS: ALBUMIN 2.2 g/dL (3.5-5.0); CALCIUM 8.1 mg/dL (8.4-10.2)
[2018-05-31 10:49] LABS: ALB/GLOB RATIO 0.8 (1.0-2.1)
--- NOTE | 2018-05-31 12:37 | PN ---
DATE: 05/31/2018 SUBJECTIVE: The patient seen and examined. Interim events noted. Consults noted and appreciated. The patient remains in progressive care unit, on telemetry monitoring. Denies any specific complaint. No chest pain. No shortness of breath. No urinary symptoms. No bleeding. PHYSICAL EXAMINATION: GENERAL: The patient is in no acute distress. VITAL SIGNS: Stable. HEART: S1 and S2, normal and regular. LUNGS: Good bilateral air exchange. ABDOMEN: Soft, nontender. No organomegaly. No fluid. Bowel sounds are plus and normal. EXTREMITIES: No edema. No calf swelling. No tenderness. No acute ischemia. MEMBERSHIP ASSISTANT: Exam is essentially unchanged. DIAGNOSTIC DATA: Available diagnostic data reviewed. Telemetry monitoring does not reveal significant arrhythmia. Hemoglobin is 7.6. ASSESSMENT AND PLAN: Overall, the patient is hemodynamically stable. Plan as ordered. Hans Tineo MD
[2018-05-31 17:04] LABS: HEPATITIS B SURFACE AG Negative (NEGATIVE)
[2018-05-31 17:10] LABS: HEPATITIS A IGM NEGATIVE (NEGATIVE); HEPATITIS B CORE AB NEGATIVE (NEGATIVE)
[2018-05-31 17:21] LABS: HEPATITIS C ANTIBODY NEGATIVE (NEGATIVE)
[2018-06-01] MEDS: Metoprolol Succinate 50 mg XL Tab PO SCH ×2 (09:33→21:29)
[2018-06-01] MEDS: Bacitracin OINT 15GM TP SCH (09:33)
[2018-06-01] MEDS: Multivitamin Vitamin B Complex (Nephro-Vite) Tab PO SCH (09:33)
[2018-06-01] MEDS: Pantoprazole 40 mg EC Tab PO SCH (09:34)
--- NOTE | 2018-06-01 11:12 | PN ---
DATE: 06/01/2018 SUBJECTIVE: The patient seen and examined. Interim events noted. Consults noted and appreciated. Nephrology followup and intervention noted and appreciated. The patient remains in progressive care unit on telemetry monitoring. The patient denies any specific complaint although nursing staff reported the patient with two episode of bleeding through anus. No chest pain. No shortness of breath. No dizziness. PHYSICAL EXAMINATION: GENERAL: The patient is in no acute distress. VITAL SIGNS: Stable. HEART: S1 and S2, normal and regular. LUNGS: Good bilateral air exchange. ABDOMEN: Soft, nontender. No suprapubic tenderness. No costovertebral tenderness. EXTREMITIES: No edema. No calf swelling. No tenderness. No acute ischemia. CLINICAL ALLERGIST: Exam is essentially unchanged. DIAGNOSTIC DATA: Available diagnostic data reviewed. ASSESSMENT AND PLAN: Overall, the patient's general medical condition is stable. Plan as ordered. Hans Tineo MD
--- NOTE | 2018-06-01 14:12 | CP.PCM.PN ---
Subjective - Date & Time of Evaluation Date of Evaluation: 06/01/18 Time of Evaluation: 14:11 - Subjective Subjective: Patient conscious and alert not in acute distress Objective - Vital Signs/Intake and Output Vital Signs (last 24 hours): Temp Pulse Resp BP Pulse Ox 98.5 F 90 20 130/74 97 06/01/18 12:55 06/01/18 12:55 06/01/18 12:55 06/01/18 12:55 06/01/18 12:55 - Medications Medications: Current Medications Acetaminophen (Tylenol 325mg Tab) 650 mg PO Q4 PRN PRN Reason: Fever >100.4 F Acetaminophen (Tylenol 325mg Tab) 650 mg PO Q4 PRN PRN Reason: Pain, Mild (1-3) Last Admin: 05/25/18 22:02 Dose: 650 mg Bacitracin (Bacitracin Oint) 1 applic TP DAILY [facility] Last Admin: 06/01/18 09:33 Dose: 1 applic Calcium Acetate (Phoslo) 667 mg PO TID [facility] Last Admin: 06/01/18 12:54 Dose: 667 mg Dapsone (Dapsone) 100 mg PO DAILY [facility]; Protocol Last Admin: 06/01/18 12:52 Dose: 100 mg Finasteride (Proscar) 5 mg PO DAILY [facility] Last Admin: 06/01/18 09:33 Dose: 5 mg Fluticasone Propionate (Flonase) 1 spr [facility] DAILY PRN PRN Reason: Nasal congestion Metoprolol Succinate (Toprol Xl) 50 mg PO Q12 [facility] Last Admin: 06/01/18 09:33 Dose: 50 mg Pantoprazole Sodium (Protonix Ec Tab) 40 mg PO DAILY [facility] Last Admin: 06/01/18 09:34 Dose: 40 mg Tamsulosin HCl (Flomax) 0.4 mg PO DAILY [facility] Last Admin: 06/01/18 09:34 Dose: 0.4 mg Vitamin B Complex/Vit C/Folic Acid (Nephro-Jj) 1 tab PO DAILY [facility] Last Admin: 06/01/18 09:33 Dose: 1 tab - Labs Labs: 05/31/18 09:36 05/31/18 09:36 PT 13.8 Seconds (9.8-13.1) H 05/25/18 16:15 INR 1.2 05/25/18 16:15 APTT 25.8 Seconds (25.6-37.1) 05/25/18 16:15 - Constitutional Appears: No Acute Distress - Eye Exam Eye Exam: Conjunctival injection - ENT Exam ENT Exam: Mucous Membranes Moist - Neck Exam Neck Exam: absent: Lymphadenopathy - Respiratory Exam Respiratory Exam: NORMAL BREATHING PATTERN. 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) gross hematuria which is significantly improving severe anemia prostatic CA coagulopathy with hypofibrinogenemia the plan transfusion of cryoprecipitate and blood as needed as per hematology cut down on hemodialysis to twice a week Patient is still oozing from the urine *24 hours urine for creatinine clearance and protein showed protein 2.6 gram and creatinine clearance 15 mL per minute Also for history when the patient was diagnosed with the above diagnosis he has a following treatment Pulses steroid for 3 days Rituximab 1 g twice 4 weeks apart Oral steroid Plasma phoresis And the patient continued to need dialysis Status: Chronic
[2018-06-01 17:18] LABS: ALB/GLOB RATIO 0.8 (1.0-2.1); ALBUMIN 2.1 g/dL (3.5-5.0)
[2018-06-01 17:48] LABS: MEAN CELL VOLUME 91.2 fl (80.0-94.0); MEAN CORPUSCULAR HEMOGLOBIN 30.4 pg (27.0-31.0); MEAN CORPUSCULAR HGB CONC 33.4 g/dL (33.0-37.0); RBC 2.64 Mil/uL (4.40-5.90); RED CELL DISTRIBUTION WIDTH 17.9 % (11.5-14.5); WHITE BLOOD COUNT 10.4 K/uL (4.8-10.8)
--- NOTE | 2018-06-01 23:17 | CP.PCM.PN ---
Subjective - Date & Time of Evaluation Date of Evaluation: 05/28/18 Time of Evaluation: 12:00 - Subjective Subjective: Appears fatigued Objective - Vital Signs/Intake and Output Vital Signs (last 24 hours): Temp Pulse Resp BP Pulse Ox 98.3 F 97 H 20 147/73 96 06/01/18 20:15 06/01/18 21:29 06/01/18 20:15 06/01/18 21:29 06/01/18 20:15 - Medications Medications: Current Medications Acetaminophen (Tylenol 325mg Tab) 650 mg PO Q4 PRN PRN Reason: Fever >100.4 F Acetaminophen (Tylenol 325mg Tab) 650 mg PO Q4 PRN PRN Reason: Pain, Mild (1-3) Last Admin: 05/25/18 22:02 Dose: 650 mg Bacitracin (Bacitracin Oint) 1 applic TP DAILY [facility] Last Admin: 06/01/18 09:33 Dose: 1 applic Calcium Acetate (Phoslo) 667 mg PO TID [facility] Last Admin: 06/01/18 17:12 Dose: Not Given Dapsone (Dapsone) 100 mg PO DAILY [facility]; Protocol Last Admin: 06/01/18 12:52 Dose: 100 mg Finasteride (Proscar) 5 mg PO DAILY [facility] Last Admin: 06/01/18 09:33 Dose: 5 mg Fluticasone Propionate (Flonase) 1 spr [place] DAILY PRN PRN Reason: Nasal congestion Metoprolol Succinate (Toprol Xl) 50 mg PO Q12 [facility] Last Admin: 06/01/18 21:29 Dose: 50 mg Pantoprazole Sodium (Protonix Ec Tab) 40 mg PO DAILY [facility] Last Admin: 06/01/18 09:34 Dose: 40 mg Tamsulosin HCl (Flomax) 0.4 mg PO DAILY [facility] Last Admin: 06/01/18 09:34 Dose: 0.4 mg Vitamin B Complex/Vit C/Folic Acid (Nephro-Jj) 1 tab PO DAILY [facility] Last Admin: 06/01/18 09:33 Dose: 1 tab - Labs Labs: 06/01/18 17:04 06/01/18 16:40 PT 13.8 Seconds (9.8-13.1) H 05/25/18 16:15 INR 1.2 05/25/18 16:15 APTT 25.8 Seconds (25.6-37.1) 05/25/18 16:15 - Head Exam Head Exam: ATRAUMATIC - Eye Exam Eye Exam: Normal appearance - ENT Exam ENT Exam: Mucous Membranes Dry - Respiratory Exam Respiratory Exam: NORMAL BREATHING PATTERN Assessment and Plan (1) Hematuria Assessment & Plan: hypofibrinogenemia; 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 embolization ? prothrombin complex Status: Acute (2) Anemia Assessment & Plan: hematuria anemia of CKD transfusion support PRN Status: Acute (3) Prostate cancer Assessment & Plan: outpatient treatment Status: Acute
--- NOTE | 2018-06-01 23:20 | CP.PCM.PN ---
Subjective - Date & Time of Evaluation Date of Evaluation: 05/29/18 Time of Evaluation: 14:00 - Subjective Subjective: No complaints. Objective - Vital Signs/Intake and Output Vital Signs (last 24 hours): Temp Pulse Resp BP Pulse Ox 98.3 F 97 H 20 147/73 96 06/01/18 20:15 06/01/18 21:29 06/01/18 20:15 06/01/18 21:29 06/01/18 20:15 - Medications Medications: Current Medications Acetaminophen (Tylenol 325mg Tab) 650 mg PO Q4 PRN PRN Reason: Fever >100.4 F Acetaminophen (Tylenol 325mg Tab) 650 mg PO Q4 PRN PRN Reason: Pain, Mild (1-3) Last Admin: 05/25/18 22:02 Dose: 650 mg Bacitracin (Bacitracin Oint) 1 applic TP DAILY [facility] Last Admin: 06/01/18 09:33 Dose: 1 applic Calcium Acetate (Phoslo) 667 mg PO TID [facility] Last Admin: 06/01/18 17:12 Dose: Not Given Dapsone (Dapsone) 100 mg PO DAILY [facility]; Protocol Last Admin: 06/01/18 12:52 Dose: 100 mg Finasteride (Proscar) 5 mg PO DAILY [facility] Last Admin: 06/01/18 09:33 Dose: 5 mg Fluticasone Propionate (Flonase) 1 spr [place] DAILY PRN PRN Reason: Nasal congestion Metoprolol Succinate (Toprol Xl) 50 mg PO Q12 [facility] Last Admin: 06/01/18 21:29 Dose: 50 mg Pantoprazole Sodium (Protonix Ec Tab) 40 mg PO DAILY [facility] Last Admin: 06/01/18 09:34 Dose: 40 mg Tamsulosin HCl (Flomax) 0.4 mg PO DAILY [facility] Last Admin: 06/01/18 09:34 Dose: 0.4 mg Vitamin B Complex/Vit C/Folic Acid (Nephro-Jj) 1 tab PO DAILY [facility] Last Admin: 06/01/18 09:33 Dose: 1 tab - Labs Labs: 06/01/18 17:04 06/01/18 16:40 PT 13.8 Seconds (9.8-13.1) H 05/25/18 16:15 INR 1.2 05/25/18 16:15 APTT 25.8 Seconds (25.6-37.1) 05/25/18 16:15 - Head Exam Head Exam: ATRAUMATIC - Eye Exam Eye Exam: Normal appearance - ENT Exam ENT Exam: Mucous Membranes Dry - Respiratory Exam Respiratory Exam: NORMAL BREATHING PATTERN - Cardiovascular Exam Cardiovascular Exam: +S1, +S2 - GI/Abdominal Exam GI & Abdominal Exam: Normal Bowel Sounds Assessment and Plan (1) Hematuria Assessment & Plan: hypofibrinogenemia; 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 embolization ? prothrombin complex Status: Acute (2) Anemia Assessment & Plan: hematuria anemia of CKD transfusion support PRN Status: Acute (3) Prostate cancer Assessment & Plan: outpatient treatment Status: Acute
--- NOTE | 2018-06-01 23:21 | CP.PCM.PN ---
Subjective - Date & Time of Evaluation Date of Evaluation: 05/30/18 Time of Evaluation: 19:00 - Subjective Subjective: Cont. to have hematuria Objective - Vital Signs/Intake and Output Vital Signs (last 24 hours): Temp Pulse Resp BP Pulse Ox 98.3 F 97 H 20 147/73 96 06/01/18 20:15 06/01/18 21:29 06/01/18 20:15 06/01/18 21:29 06/01/18 20:15 - Medications Medications: Current Medications Acetaminophen (Tylenol 325mg Tab) 650 mg PO Q4 PRN PRN Reason: Fever >100.4 F Acetaminophen (Tylenol 325mg Tab) 650 mg PO Q4 PRN PRN Reason: Pain, Mild (1-3) Last Admin: 05/25/18 22:02 Dose: 650 mg Bacitracin (Bacitracin Oint) 1 applic TP DAILY [facility] Last Admin: 06/01/18 09:33 Dose: 1 applic Calcium Acetate (Phoslo) 667 mg PO TID [facility] Last Admin: 06/01/18 17:12 Dose: Not Given Dapsone (Dapsone) 100 mg PO DAILY [facility]; Protocol Last Admin: 06/01/18 12:52 Dose: 100 mg Finasteride (Proscar) 5 mg PO DAILY [facility] Last Admin: 06/01/18 09:33 Dose: 5 mg Fluticasone Propionate (Flonase) 1 spr [place] DAILY PRN PRN Reason: Nasal congestion Metoprolol Succinate (Toprol Xl) 50 mg PO Q12 [facility] Last Admin: 06/01/18 21:29 Dose: 50 mg Pantoprazole Sodium (Protonix Ec Tab) 40 mg PO DAILY [facility] Last Admin: 06/01/18 09:34 Dose: 40 mg Tamsulosin HCl (Flomax) 0.4 mg PO DAILY [facility] Last Admin: 06/01/18 09:34 Dose: 0.4 mg Vitamin B Complex/Vit C/Folic Acid (Nephro-Jj) 1 tab PO DAILY [facility] Last Admin: 06/01/18 09:33 Dose: 1 tab - Labs Labs: 06/01/18 17:04 06/01/18 16:40 PT 13.8 Seconds (9.8-13.1) H 05/25/18 16:15 INR 1.2 05/25/18 16:15 APTT 25.8 Seconds (25.6-37.1) 05/25/18 16:15 - Head Exam Head Exam: ATRAUMATIC - Eye Exam Eye Exam: Normal appearance - ENT Exam ENT Exam: Mucous Membranes Dry - Respiratory Exam Respiratory Exam: NORMAL BREATHING PATTERN - Cardiovascular Exam Cardiovascular Exam: +S1, +S2 - GI/Abdominal Exam GI & Abdominal Exam: Normal Bowel Sounds Assessment and Plan (1) Hematuria Assessment & Plan: hypofibrinogenemia; 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 embolization ? prothrombin complex Status: Acute (2) Anemia Assessment & Plan: hematuria anemia of CKD transfusion support PRN Status: Acute (3) Prostate cancer Assessment & Plan: outpatient treatment Status: Acute
--- NOTE | 2018-06-01 23:23 | CP.PCM.PN ---
Subjective - Date & Time of Evaluation Date of Evaluation: 05/31/18 Time of Evaluation: 12:00 - Subjective Subjective: Cont. to have hematuria Objective - Vital Signs/Intake and Output Vital Signs (last 24 hours): Temp Pulse Resp BP Pulse Ox 98.3 F 97 H 20 147/73 96 06/01/18 20:15 06/01/18 21:29 06/01/18 20:15 06/01/18 21:29 06/01/18 20:15 - Medications Medications: Current Medications Acetaminophen (Tylenol 325mg Tab) 650 mg PO Q4 PRN PRN Reason: Fever >100.4 F Acetaminophen (Tylenol 325mg Tab) 650 mg PO Q4 PRN PRN Reason: Pain, Mild (1-3) Last Admin: 05/25/18 22:02 Dose: 650 mg Bacitracin (Bacitracin Oint) 1 applic TP DAILY [facility] Last Admin: 06/01/18 09:33 Dose: 1 applic Calcium Acetate (Phoslo) 667 mg PO TID [facility] Last Admin: 06/01/18 17:12 Dose: Not Given Dapsone (Dapsone) 100 mg PO DAILY [facility]; Protocol Last Admin: 06/01/18 12:52 Dose: 100 mg Finasteride (Proscar) 5 mg PO DAILY [facility] Last Admin: 06/01/18 09:33 Dose: 5 mg Fluticasone Propionate (Flonase) 1 spr [place] DAILY PRN PRN Reason: Nasal congestion Metoprolol Succinate (Toprol Xl) 50 mg PO Q12 [facility] Last Admin: 06/01/18 21:29 Dose: 50 mg Pantoprazole Sodium (Protonix Ec Tab) 40 mg PO DAILY [facility] Last Admin: 06/01/18 09:34 Dose: 40 mg Tamsulosin HCl (Flomax) 0.4 mg PO DAILY [facility] Last Admin: 06/01/18 09:34 Dose: 0.4 mg Vitamin B Complex/Vit C/Folic Acid (Nephro-Jj) 1 tab PO DAILY [facility] Last Admin: 06/01/18 09:33 Dose: 1 tab - Labs Labs: 06/01/18 17:04 06/01/18 16:40 PT 13.8 Seconds (9.8-13.1) H 05/25/18 16:15 INR 1.2 05/25/18 16:15 APTT 25.8 Seconds (25.6-37.1) 05/25/18 16:15 - Head Exam Head Exam: ATRAUMATIC - Eye Exam Eye Exam: Normal appearance - ENT Exam ENT Exam: Mucous Membranes Dry - Respiratory Exam Respiratory Exam: NORMAL BREATHING PATTERN - Cardiovascular Exam Cardiovascular Exam: +S1, +S2 - GI/Abdominal Exam GI & Abdominal Exam: Normal Bowel Sounds Assessment and Plan (1) Hematuria Assessment & Plan: hypofibrinogenemia; 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
--- NOTE | 2018-06-01 23:24 | CP.PCM.PN ---
Subjective - Date & Time of Evaluation Date of Evaluation: 06/01/18 Time of Evaluation: 11:00 - Subjective Subjective: Apepars comfortable Objective - Vital Signs/Intake and Output Vital Signs (last 24 hours): Temp Pulse Resp BP Pulse Ox 98.3 F 97 H 20 147/73 96 06/01/18 20:15 06/01/18 21:29 06/01/18 20:15 06/01/18 21:29 06/01/18 20:15 - Medications Medications: Current Medications Acetaminophen (Tylenol 325mg Tab) 650 mg PO Q4 PRN PRN Reason: Fever >100.4 F Acetaminophen (Tylenol 325mg Tab) 650 mg PO Q4 PRN PRN Reason: Pain, Mild (1-3) Last Admin: 05/25/18 22:02 Dose: 650 mg Bacitracin (Bacitracin Oint) 1 applic TP DAILY [facility] Last Admin: 06/01/18 09:33 Dose: 1 applic Calcium Acetate (Phoslo) 667 mg PO TID [facility] Last Admin: 06/01/18 17:12 Dose: Not Given Dapsone (Dapsone) 100 mg PO DAILY [facility]; Protocol Last Admin: 06/01/18 12:52 Dose: 100 mg Finasteride (Proscar) 5 mg PO DAILY [facility] Last Admin: 06/01/18 09:33 Dose: 5 mg Fluticasone Propionate (Flonase) 1 spr [place] DAILY PRN PRN Reason: Nasal congestion Metoprolol Succinate (Toprol Xl) 50 mg PO Q12 [facility] Last Admin: 06/01/18 21:29 Dose: 50 mg Pantoprazole Sodium (Protonix Ec Tab) 40 mg PO DAILY [facility] Last Admin: 06/01/18 09:34 Dose: 40 mg Tamsulosin HCl (Flomax) 0.4 mg PO DAILY [facility] Last Admin: 06/01/18 09:34 Dose: 0.4 mg Vitamin B Complex/Vit C/Folic Acid (Nephro-Jj) 1 tab PO DAILY [facility] Last Admin: 06/01/18 09:33 Dose: 1 tab - Labs Labs: 06/01/18 17:04 06/01/18 16:40 PT 13.8 Seconds (9.8-13.1) H 05/25/18 16:15 INR 1.2 05/25/18 16:15 APTT 25.8 Seconds (25.6-37.1) 05/25/18 16:15 - Head Exam Head Exam: ATRAUMATIC - Eye Exam Eye Exam: Normal appearance - ENT Exam ENT Exam: Mucous Membranes Dry - Respiratory Exam Respiratory Exam: NORMAL BREATHING PATTERN - Cardiovascular Exam Cardiovascular Exam: +S1, +S2 - GI/Abdominal Exam GI & Abdominal Exam: Normal Bowel Sounds Assessment and Plan (1) Hematuria Assessment & Plan: hypofibrinogenemia; 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
[2018-06-02] MEDS: Bacitracin OINT 15GM TP SCH (08:33)
[2018-06-02] MEDS: Pantoprazole 40 mg EC Tab PO SCH (08:33)
[2018-06-02] MEDS: Metoprolol Succinate 50 mg XL Tab PO SCH ×2 (08:34→22:18)
[2018-06-02] MEDS: Multivitamin Vitamin B Complex (Nephro-Vite) Tab PO SCH (08:35)
--- NOTE | 2018-06-02 10:05 | CP.PCM.PN ---
Subjective - Date & Time of Evaluation Date of Evaluation: 06/02/18 Time of Evaluation: 10:04 - Subjective Subjective: patient awake and conscious he does not appear to be in distress is still bleeding from the urine Objective - Vital Signs/Intake and Output Vital Signs (last 24 hours): Temp Pulse Resp BP Pulse Ox 98.2 F 99 H 18 120/78 96 06/02/18 08:49 06/02/18 08:49 06/02/18 08:49 06/02/18 08:49 06/02/18 08:49 - Medications Medications: Current Medications Acetaminophen (Tylenol 325mg Tab) 650 mg PO Q4 PRN PRN Reason: Fever >100.4 F Acetaminophen (Tylenol 325mg Tab) 650 mg PO Q4 PRN PRN Reason: Pain, Mild (1-3) Last Admin: 05/25/18 22:02 Dose: 650 mg Bacitracin (Bacitracin Oint) 1 applic TP DAILY [facility] Last Admin: 06/02/18 08:33 Dose: 1 applic Calcium Acetate (Phoslo) 667 mg PO TID [facility] Last Admin: 06/02/18 08:33 Dose: 667 mg Dapsone (Dapsone) 100 mg PO DAILY [facility]; Protocol Last Admin: 06/02/18 08:33 Dose: 100 mg Finasteride (Proscar) 5 mg PO DAILY [facility] Last Admin: 06/02/18 08:35 Dose: 5 mg Fluticasone Propionate (Flonase) 1 spr [place] DAILY PRN PRN Reason: Nasal congestion Metoprolol Succinate (Toprol Xl) 50 mg PO Q12 [facility] Last Admin: 06/02/18 08:34 Dose: 50 mg Pantoprazole Sodium (Protonix Ec Tab) 40 mg PO DAILY [facility] Last Admin: 06/02/18 08:33 Dose: 40 mg Tamsulosin HCl (Flomax) 0.4 mg PO DAILY [facility] Last Admin: 06/02/18 08:34 Dose: 0.4 mg Vitamin B Complex/Vit C/Folic Acid (Nephro-Jj) 1 tab PO DAILY [facility] Last Admin: 06/02/18 08:35 Dose: 1 tab - Labs Labs: 06/01/18 17:04 06/01/18 16:40 PT 13.8 Seconds (9.8-13.1) H 05/25/18 16:15 INR 1.2 05/25/18 16:15 APTT 25.8 Seconds (25.6-37.1) 05/25/18 16:15 - Constitutional Appears: No Acute Distress - Eye Exam Eye Exam: Conjunctival injection - ENT Exam ENT Exam: Mucous Membranes Moist - Neck Exam Neck Exam: absent: Lymphadenopathy - Respiratory Exam Respiratory Exam: NORMAL BREATHING PATTERN. absent: Chest Wall Tenderness - Cardiovascular Exam Cardiovascular Exam: REGULAR RHYTHM. 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) gross hematuria persisted severe anemia prostatic CA coagulopathy the plan transfusion of cryoprecipitate and blood as needed as per hematology cut down on hemodialysis to twice a week patient is going for cystoscopy tomorrow hemodialysis tomorrow Status: Chronic
--- NOTE | 2018-06-02 10:07 | PN ---
DATE: 06/02/2018 SUBJECTIVE: The patient is seen and examined. Interim events noted. Consults noted and appreciated. The patient remains in regular progressive care unit with telemetry monitoring. Feels okay. Denies any specific complaints. No chest pain. No shortness of breath. PHYSICAL EXAMINATION: GENERAL: The patient is in no acute distress. VITAL SIGNS: Stable. HEART: S1 and S2, normal and regular. LUNGS: Good bilateral air exchange. ABDOMEN: Soft and nontender. EXTREMITIES: No edema. No calf swelling. No tenderness. No acute ischemia. 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 The patient still continues to have blood oozing from penis. DIAGNOSTIC DATA: Available diagnostic data reviewed. Hemoglobin is 8. ASSESSMENT AND PLAN: Overall, the patient is still oozing. The patient is tentatively scheduled for cauterization tomorrow. Plan as ordered. Hans Tineo MD
[2018-06-03 05:48] LABS: MEAN CELL VOLUME 92.1 fl (80.0-94.0); MEAN CORPUSCULAR HEMOGLOBIN 30.1 pg (27.0-31.0); MEAN CORPUSCULAR HGB CONC 32.6 g/dL (33.0-37.0); RBC 2.67 Mil/uL (4.40-5.90); RED CELL DISTRIBUTION WIDTH 17.5 % (11.5-14.5); WHITE BLOOD COUNT 9.7 K/uL (4.8-10.8)
[2018-06-03] MEDS ORDERED: cefTRIAXone (Rocephin) 1 gm Inj ONE (09:15)
[2018-06-03] MEDS: Bacitracin OINT 15GM TP SCH (10:02)
[2018-06-03] MEDS: Multivitamin Vitamin B Complex (Nephro-Vite) Tab PO SCH (10:03)
[2018-06-03] MEDS: Pantoprazole 40 mg EC Tab PO SCH (10:04)
[2018-06-03] MEDS: Metoprolol Succinate 50 mg XL Tab PO SCH ×2 (10:05→22:30)
[2018-06-03] MEDS ORDERED: Succinylcholine 200 mg/10 ml Inj IV ONE (10:44)
[2018-06-03] MEDS ORDERED: Propofol 10 mg/ml Inj (20 ML) ONE (11:00)
[2018-06-03] MEDS ORDERED: Lactated Ringer's 1,000 ML IV ONE (11:15)
--- NOTE | 2018-06-03 11:41 | CP.PCM.PN ---
Subjective - Date & Time of Evaluation Date of Evaluation: 06/03/18 Time of Evaluation: 10:00 - Subjective Subjective: Appears comfortable, for repeat cautery with urology today Objective - Vital Signs/Intake and Output Vital Signs (last 24 hours): Temp Pulse Resp BP Pulse Ox 97.5 F L 92 H 18 135/71 97 06/03/18 08:43 06/03/18 10:05 06/03/18 08:43 06/03/18 10:05 06/03/18 08:43 - Medications Medications: Current Medications Acetaminophen (Tylenol 325mg Tab) 650 mg PO Q4 PRN PRN Reason: Fever >100.4 F Acetaminophen (Tylenol 325mg Tab) 650 mg PO Q4 PRN PRN Reason: Pain, Mild (1-3) Last Admin: 05/25/18 22:02 Dose: 650 mg Bacitracin (Bacitracin Oint) 1 applic TP DAILY [facility] Last Admin: 06/03/18 10:02 Dose: 1 applic Calcium Acetate (Phoslo) 667 mg PO TID [facility] Last Admin: 06/03/18 10:03 Dose: Not Given Dapsone (Dapsone) 100 mg PO DAILY [facility]; Protocol Last Admin: 06/03/18 10:03 Dose: Not Given Finasteride (Proscar) 5 mg PO DAILY [facility] Last Admin: 06/03/18 10:04 Dose: Not Given Fluticasone Propionate (Flonase) 1 spr [place] DAILY PRN PRN Reason: Nasal congestion Metoprolol Succinate (Toprol Xl) 50 mg PO Q12 [facility] Last Admin: 06/03/18 10:05 Dose: 50 mg Pantoprazole Sodium (Protonix Ec Tab) 40 mg PO DAILY [facility] Last Admin: 06/03/18 10:04 Dose: Not Given Tamsulosin HCl (Flomax) 0.4 mg PO DAILY [facility] Last Admin: 06/03/18 10:03 Dose: Not Given Vitamin B Complex/Vit C/Folic Acid (Nephro-Jj) 1 tab PO DAILY [facility] Last Admin: 06/03/18 10:03 Dose: Not Given - Labs Labs: 06/03/18 05:10 06/01/18 16:40 PT 13.8 Seconds (9.8-13.1) H 05/25/18 16:15 INR 1.2 05/25/18 16:15 APTT 25.8 Seconds (25.6-37.1) 05/25/18 16:15 - Head Exam Head Exam: ATRAUMATIC - Eye Exam Eye Exam: Normal appearance - ENT Exam ENT Exam: Mucous Membranes Dry - Respiratory Exam Respiratory Exam: NORMAL BREATHING PATTERN - Cardiovascular Exam Cardiovascular Exam: +S1, +S2 - GI/Abdominal Exam GI & Abdominal Exam: Normal Bowel Sounds Assessment and Plan (1) Hematuria Assessment & Plan: hypofibrinogenemia; likely liver cirrhosis s/p Amicar drip s/p cryopercipitate transfusion; goal fibrinogen > 200 - has been stable after transfusion s/p ddavp s/p vit k urology f/u, for cautery today. Status: Acute (2) Anemia Assessment & Plan: hematuria anemia of CKD transfusion support PRN Status: Acute (3) Prostate cancer Assessment & Plan: outpatient treatment Status: Acute
--- NOTE | 2018-06-03 11:42 | CP.PCM.PN ---
Subjective - Date & Time of Evaluation Date of Evaluation: 06/03/18 Time of Evaluation: 09:00 - Subjective Subjective: patient appeared to be comfortable clinically Vital signs stable Objective - Vital Signs/Intake and Output Vital Signs (last 24 hours): Temp Pulse Resp BP Pulse Ox 97.5 F L 92 H 18 135/71 97 06/03/18 08:43 06/03/18 10:05 06/03/18 08:43 06/03/18 10:05 06/03/18 08:43 - Medications Medications: Current Medications Acetaminophen (Tylenol 325mg Tab) 650 mg PO Q4 PRN PRN Reason: Fever >100.4 F Acetaminophen (Tylenol 325mg Tab) 650 mg PO Q4 PRN PRN Reason: Pain, Mild (1-3) Last Admin: 05/25/18 22:02 Dose: 650 mg Bacitracin (Bacitracin Oint) 1 applic TP DAILY [facility] Last Admin: 06/03/18 10:02 Dose: 1 applic Calcium Acetate (Phoslo) 667 mg PO TID [facility] Last Admin: 06/03/18 10:03 Dose: Not Given Dapsone (Dapsone) 100 mg PO DAILY [facility]; Protocol Last Admin: 06/03/18 10:03 Dose: Not Given Finasteride (Proscar) 5 mg PO DAILY [facility] Last Admin: 06/03/18 10:04 Dose: Not Given Fluticasone Propionate (Flonase) 1 spr [place] DAILY PRN PRN Reason: Nasal congestion Metoprolol Succinate (Toprol Xl) 50 mg PO Q12 [facility] Last Admin: 06/03/18 10:05 Dose: 50 mg Pantoprazole Sodium (Protonix Ec Tab) 40 mg PO DAILY [facility] Last Admin: 06/03/18 10:04 Dose: Not Given Tamsulosin HCl (Flomax) 0.4 mg PO DAILY [facility] Last Admin: 06/03/18 10:03 Dose: Not Given Vitamin B Complex/Vit C/Folic Acid (Nephro-Jj) 1 tab PO DAILY [facility] Last Admin: 06/03/18 10:03 Dose: Not Given - Labs Labs: 06/03/18 05:10 06/01/18 16:40 PT 13.8 Seconds (9.8-13.1) H 05/25/18 16:15 INR 1.2 05/25/18 16:15 APTT 25.8 Seconds (25.6-37.1) 05/25/18 16:15 - Constitutional Appears: No Acute Distress - Eye Exam Eye Exam: Conjunctival injection - ENT Exam ENT Exam: Mucous Membranes Moist - Neck Exam Neck Exam: absent: Lymphadenopathy - Respiratory Exam Respiratory Exam: absent: Chest Wall Tenderness - Cardiovascular Exam Cardiovascular Exam: absent: Gallop, JVD, Rubs - GI/Abdominal Exam GI & Abdominal Exam: Soft, Normal Bowel Sounds - Extremities Exam Extremities Exam: absent: Calf Tenderness - Back Exam Back Exam: absent: CVA tenderness (L), CVA tenderness (R) - Neurological Exam Neurological Exam: Alert - Psychiatric Exam Psychiatric exam: Normal Affect - Skin Skin Exam: absent: Cyanosis Assessment and Plan (1) ESRD (end stage renal disease) on dialysis Assessment & Plan: 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) gross hematuria persisted severe anemia prostatic CA coagulopathy the plan transfusion of cryoprecipitate and blood as needed as per hematology cut down on hemodialysis to twice a week patient is going for cystoscopy. and hemodialysis to follow Status: Chronic
[2018-06-03] MEDS ORDERED: Etomidate 20 mg/10ml Inj IV ONE (11:53)
[2018-06-03] MEDS ORDERED: Sodium Chloride 0.9% 250 ML IV ONE (12:15)
--- NOTE | 2018-06-03 13:19 | PN ---
DATE: 06/03/2018 SUBJECTIVE: The patient seen and examined. Interim events noted. Consults noted and appreciated. The patient is for OR today. The patient feels okay. Denies any specific complaint of chest pain or shortness of breath. Nursing staff reported the patient is still having hematuria. PHYSICAL EXAMINATION: GENERAL: The patient is in no acute distress. VITAL SIGNS: Stable. HEART: S1, S2, normal and regular. LUNGS: Good bilateral air exchange. ABDOMEN: Soft, nontender. EXTREMITIES: No edema. No calf swelling. No tenderness. No acute ischemia. 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 There is no sign of any acute gross focal motor or sensory neurological deficits. DIAGNOSTIC DATA: Available diagnostic data reviewed. ASSESSMENT AND PLAN: Overall, the patient is clinically stable. today. Plan as ordered. Hans Tineo MD
[2018-06-03 16:50] LABS: CALCIUM 8.4 mg/dL (8.4-10.2)
--- NOTE | 2018-06-03 23:37 | OP ---
PROCEDURE DATE: 06/03/2018 PREOPERATIVE DIAGNOSIS: Gross hematuria. POSTOPERATIVE DIAGNOSIS: Prostatic urethral bleeding. PROCEDURE PERFORMED: Cystoscopy with prostatic urethral fulguration. SURGEON: Yessy Jeffries MD TYPE OF ANESTHESIA: General anesthesia. DESCRIPTION OF PROCEDURE: The patient was placed on the operative table in a dorsal lithotomy position and given general anesthesia. The area of the groin was draped and prepped. At this time, a #24 continuous flow resectoscope was inserted into the bladder under direct vision. I took some initial photographs. The tissue in the prostatic urethra just appeared necrotic and as it has in the past, it seems to be just oozing and continually oozing, I am trying to cauterize it. It appears that it stops and then it take a second look and then it starts again. I do not see any arterial pumping. I just see a lot of venous oozing, did the best that I could, cauterized essentially the entire prostate. The bladder itself appears to be free of any active bleeding. I inserted then a #22 three-way Banks catheter at least initially in the operating room. The urine outflow is completely clear. The patient was taken from the operating room in good condition. Yessy Jeffries MD
[2018-06-04 07:01] LABS: HEMOGLOBIN 7.6 g/dL (12.0-18.0); MEAN CELL VOLUME 91.7 fl (80.0-94.0); MEAN CORPUSCULAR HEMOGLOBIN 30.6 pg (27.0-31.0); MEAN CORPUSCULAR HGB CONC 33.4 g/dL (33.0-37.0); RBC 2.49 Mil/uL (4.40-5.90); RED CELL DISTRIBUTION WIDTH 17.4 % (11.5-14.5); WHITE BLOOD COUNT 9.1 K/uL (4.8-10.8)
--- NOTE | 2018-06-04 09:11 | PN ---
DATE: 06/04/2018 SUBJECTIVE: The patient seen and examined. Interim events noted. Consults noted and appreciated. Urologist and byproducts extractor intervention noted and appreciated. The patient is status post cystoscopy and cauterization, now in three-way bladder irrigation. The patient is sleeping, arousable. Feels okay. Denies any chest pain, shortness of breath, or any urinary symptom. PHYSICAL EXAMINATION: GENERAL: The patient is in no acute distress. VITAL SIGNS: Stable. HEART: S1, S2 normal and regular. LUNGS: Good bilateral air exchange. ABDOMEN: Soft and nontender. No sign of acute abdomen. No guarding. No rigidity. No rebound. EXTREMITIES: No edema. No calf swelling. No tenderness. No acute ischemia. CENTRAL NERVOUS SYSTEM: Essentially unchanged. URINARY: The patient has pinkish urine in the drainage bag. DIAGNOSTIC DATA: Available diagnostic data reviewed. Telemetry monitoring does not show significant arrhythmias. ASSESSMENT AND PLAN: Overall, the patient's general medical condition is stable. Plan as ordered. Hans Tineo MD
[2018-06-04] MEDS: Multivitamin Vitamin B Complex (Nephro-Vite) Tab PO SCH (10:00)
[2018-06-04] MEDS: Metoprolol Succinate 50 mg XL Tab PO SCH ×2 (10:00→22:27)
[2018-06-04] MEDS: Pantoprazole 40 mg EC Tab PO SCH (10:01)
--- NOTE | 2018-06-04 10:48 | CP.PCM.PN ---
Subjective - Date & Time of Evaluation Date of Evaluation: 06/04/18 Time of Evaluation: 10:46 - Subjective Subjective: Assessment: Stable sepsis with pneumonia and pulmonary edema acute pleuritic CP with dyspnoea no evidence of PE Diabetic chronic Kidney Disease (E11.22) Hypertensive Chronic Kidney Disease (I12.0) End stage renal disease (N18.6) dependence on hemodialysis (Z99.2) (TTS) via PC Anemia (D64.9), Hyperphosphatemia (E83.39), Secondary Hyperparathyroidism (E21.1), HTN (I12.0), obesity AMS with delirium Plan: routine HD dialysis tomorrow per TTS schedule Continue with Nephrovite 1 tab/day. PRBC as needed for anemia. on MENG with dialysis as last Hb 7.6. plan for 2 unit PRBC 05/31/18. Hb now 9.1 Continue with phos binders RENAL s: diogenes nad examined s/p cysto yesterday w/ cbi o: vs as below gen: nad sclera: anicteirc op clear neck supple cv:+S1+s2 lungs cta abd: soft ext: no edema neuro: a+ox3 psych: nml affect gu: + hadley w/ hematuira imp: esrd / gross hematuria/ dysfxnal hd cath/ anemia/ ANCA vasculitis/ htn/hyperphos plan: hd today will start epo - transfuse per primary team f/u gu bp stable on phoslo recheck phos Objective - Vital Signs/Intake and Output Vital Signs (last 24 hours): Temp Pulse Resp BP Pulse Ox 98.9 F 91 H 16 136/86 98 06/04/18 08:18 06/04/18 08:18 06/04/18 08:18 06/04/18 08:18 06/04/18 08:18 Intake and Output: 06/04/18 06/04/18 06:59 18:59 Intake Total 6720 Output Total 5000 Balance 1720 - Medications Medications: Current Medications Acetaminophen (Tylenol 325mg Tab) 650 mg PO Q4 PRN PRN Reason: Fever >100.4 F Acetaminophen (Tylenol 325mg Tab) 650 mg PO Q4 PRN PRN Reason: Pain, Mild (1-3) Last Admin: 05/25/18 22:02 Dose: 650 mg Bacitracin (Bacitracin Oint) 1 applic TP DAILY [facility] Last Admin: 06/03/18 10:02 Dose: 1 applic Calcium Acetate (Phoslo) 667 mg PO TID [facility] Last Admin: 06/04/18 10:00 Dose: 667 mg Dapsone (Dapsone) 100 mg PO DAILY [facility]; Protocol Last Admin: 06/04/18 10:00 Dose: 100 mg Finasteride (Proscar) 5 mg PO DAILY [facility] Last Admin: 06/04/18 10:00 Dose: 5 mg Fluticasone Propionate (Flonase) 1 spr [place] DAILY PRN PRN Reason: Nasal congestion Metoprolol Succinate (Toprol Xl) 50 mg PO Q12 [facility] Last Admin: 06/04/18 10:00 Dose: 50 mg Pantoprazole Sodium (Protonix Ec Tab) 40 mg PO DAILY [facility] Last Admin: 06/04/18 10:01 Dose: 40 mg Tamsulosin HCl (Flomax) 0.4 mg PO DAILY [facility] Last Admin: 06/04/18 10:00 Dose: 0.4 mg Vitamin B Complex/Vit C/Folic Acid (Nephro-Jj) 1 tab PO DAILY [facility] Last Admin: 06/04/18 10:00 Dose: 1 tab - Labs Labs: 06/04/18 06:10 06/03/18 16:30 PT 13.8 Seconds (9.8-13.1) H 05/25/18 16:15 INR 1.2 05/25/18 16:15 APTT 25.8 Seconds (25.6-37.1) 05/25/18 16:15
[2018-06-04] MEDS: Bacitracin OINT 15GM TP SCH (17:22)
[2018-06-05 07:52] LABS: HEMOGLOBIN 7.4 g/dL (12.0-18.0); MEAN CELL VOLUME 92.5 fl (80.0-94.0); MEAN CORPUSCULAR HEMOGLOBIN 30.9 pg (27.0-31.0); MEAN CORPUSCULAR HGB CONC 33.3 g/dL (33.0-37.0); RBC 2.41 Mil/uL (4.40-5.90); RED CELL DISTRIBUTION WIDTH 17.7 % (11.5-14.5); WHITE BLOOD COUNT 9.4 K/uL (4.8-10.8)
[2018-06-05 08:13] LABS: ALB/GLOB RATIO 0.8 (1.0-2.1); ALBUMIN 2.2 g/dL (3.5-5.0); CALCIUM 8.1 mg/dL (8.4-10.2)
[2018-06-05] MEDS: Pantoprazole 40 mg EC Tab PO SCH (08:52)
[2018-06-05] MEDS: Bacitracin OINT 15GM TP SCH (08:52)
[2018-06-05] MEDS: Multivitamin Vitamin B Complex (Nephro-Vite) Tab PO SCH (08:52)
[2018-06-05] MEDS: Metoprolol Succinate 50 mg XL Tab PO SCH ×2 (08:53→20:34)
--- NOTE | 2018-06-05 11:51 | PN ---
DATE: 06/05/2018 SUBJECTIVE: The patient seen and examined. Interim events noted. Consults noted and appreciated. The patient remains in progressive care unit with telemetry monitoring with bladder irrigation. The patient is sleepy, arousable, feels okay. Denies any chest pain. No shortness of breath or abdominal pain. PHYSICAL EXAMINATION: GENERAL: The patient is in no acute distress. VITAL SIGNS: Stable. No orthostatic changes. HEART: S1 and S2, normal and regular. LUNGS: Good bilateral air exchange. ABDOMEN: Soft and nontender. EXTREMITIES: No edema. No calf swelling. No tenderness. No acute ischemia. CENTRAL NERVOUS SYSTEM: Exam is essentially unchanged. The patient still has bloody urine in bladder irrigation, although it is less dark. DIAGNOSTIC DATA: Available diagnostic data reviewed. Hemoglobin is 7.6. ASSESSMENT AND PLAN: Overall, the patient's general medical condition is hemodynamically stable, but the patent still seems to be oozing blood. Plan as ordered. Hans Tineo MD
--- NOTE | 2018-06-05 22:16 | CP.PCM.PN ---
Subjective - Date & Time of Evaluation Date of Evaluation: 06/04/18 Time of Evaluation: 15:00 - Subjective Subjective: No complaints s/p cystoscopy and fulgration - prostatic urethra oozing Objective - Vital Signs/Intake and Output Vital Signs (last 24 hours): Temp Pulse Resp BP Pulse Ox 98.6 F 108 H 18 127/78 98 06/05/18 20:31 06/05/18 20:34 06/05/18 20:31 06/05/18 20:34 06/05/18 20:31 Intake and Output: 06/05/18 06/06/18 18:59 06:59 Intake Total 3000 Balance 3000 - Medications Medications: Current Medications Acetaminophen (Tylenol 325mg Tab) 650 mg PO Q4 PRN PRN Reason: Fever >100.4 F Acetaminophen (Tylenol 325mg Tab) 650 mg PO Q4 PRN PRN Reason: Pain, Mild (1-3) Last Admin: 06/04/18 23:35 Dose: 650 mg Bacitracin (Bacitracin Oint) 1 applic TP DAILY [facility] Last Admin: 06/05/18 08:52 Dose: 1 applic Calcium Acetate (Phoslo) 667 mg PO TID [facility] Last Admin: 06/05/18 17:18 Dose: 667 mg Epoetin Charles (Procrit) 10,000 unit SC TTS [facility] Finasteride (Proscar) 5 mg PO DAILY [facility] Last Admin: 06/05/18 08:53 Dose: 5 mg Fluticasone Propionate (Flonase) 1 spr [place] DAILY PRN PRN Reason: Nasal congestion Metoprolol Succinate (Toprol Xl) 50 mg PO Q12 [facility] Last Admin: 06/05/18 20:34 Dose: 50 mg Pantoprazole Sodium (Protonix Ec Tab) 40 mg PO DAILY [facility] Last Admin: 06/05/18 08:52 Dose: 40 mg Tamsulosin HCl (Flomax) 0.4 mg PO DAILY [facility] Last Admin: 06/05/18 08:52 Dose: 0.4 mg Vitamin B Complex/Vit C/Folic Acid (Nephro-Jj) 1 tab PO DAILY [facility] Last Admin: 06/05/18 08:52 Dose: 1 tab - Labs Labs: 06/05/18 06:57 06/05/18 06:57 PT 13.8 Seconds (9.8-13.1) H 05/25/18 16:15 INR 1.2 05/25/18 16:15 APTT 25.8 Seconds (25.6-37.1) 05/25/18 16:15 - Head Exam Head Exam: ATRAUMATIC - Eye Exam Eye Exam: Normal appearance - ENT Exam ENT Exam: Mucous Membranes Dry - Respiratory Exam Respiratory Exam: NORMAL BREATHING PATTERN - Cardiovascular Exam Cardiovascular Exam: +S1, +S2 - GI/Abdominal Exam GI & Abdominal Exam: Normal Bowel Sounds Assessment and Plan (1) Hematuria Assessment & Plan: hypofibrinogenemia; 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 Status: Acute (2) Anemia Assessment & Plan: hematuria anemia of CKD transfusion support PRN Status: Acute (3) Prostate cancer Assessment & Plan: outpatient treatment Status: Acute
--- NOTE | 2018-06-05 22:17 | CP.PCM.PN ---
Subjective - Date & Time of Evaluation Date of Evaluation: 06/05/18 Time of Evaluation: 18:00 - Subjective Subjective: No complaints. Objective - Vital Signs/Intake and Output Vital Signs (last 24 hours): Temp Pulse Resp BP Pulse Ox 98.6 F 108 H 18 127/78 98 06/05/18 20:31 06/05/18 20:34 06/05/18 20:31 06/05/18 20:34 06/05/18 20:31 Intake and Output: 06/05/18 06/06/18 18:59 06:59 Intake Total 3000 Balance 3000 - Medications Medications: Current Medications Acetaminophen (Tylenol 325mg Tab) 650 mg PO Q4 PRN PRN Reason: Fever >100.4 F Acetaminophen (Tylenol 325mg Tab) 650 mg PO Q4 PRN PRN Reason: Pain, Mild (1-3) Last Admin: 06/04/18 23:35 Dose: 650 mg Bacitracin (Bacitracin Oint) 1 applic TP DAILY [facility] Last Admin: 06/05/18 08:52 Dose: 1 applic Calcium Acetate (Phoslo) 667 mg PO TID [facility] Last Admin: 06/05/18 17:18 Dose: 667 mg Epoetin Charles (Procrit) 10,000 unit SC TTS [facility] Finasteride (Proscar) 5 mg PO DAILY [facility] Last Admin: 06/05/18 08:53 Dose: 5 mg Fluticasone Propionate (Flonase) 1 spr [place] DAILY PRN PRN Reason: Nasal congestion Metoprolol Succinate (Toprol Xl) 50 mg PO Q12 [facility] Last Admin: 06/05/18 20:34 Dose: 50 mg Pantoprazole Sodium (Protonix Ec Tab) 40 mg PO DAILY [facility] Last Admin: 06/05/18 08:52 Dose: 40 mg Tamsulosin HCl (Flomax) 0.4 mg PO DAILY [facility] Last Admin: 06/05/18 08:52 Dose: 0.4 mg Vitamin B Complex/Vit C/Folic Acid (Nephro-Jj) 1 tab PO DAILY [facility] Last Admin: 06/05/18 08:52 Dose: 1 tab - Labs Labs: 06/05/18 06:57 06/05/18 06:57 PT 13.8 Seconds (9.8-13.1) H 05/25/18 16:15 INR 1.2 05/25/18 16:15 APTT 25.8 Seconds (25.6-37.1) 05/25/18 16:15 - Head Exam Head Exam: ATRAUMATIC - Eye Exam Eye Exam: Normal appearance - ENT Exam ENT Exam: Mucous Membranes Dry - Respiratory Exam Respiratory Exam: NORMAL BREATHING PATTERN - Cardiovascular Exam Cardiovascular Exam: +S1, +S2 - GI/Abdominal Exam GI & Abdominal Exam: Normal Bowel Sounds Assessment and Plan (1) Hematuria Assessment & Plan: hypofibrinogenemia; 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 Status: Acute (2) Anemia Assessment & Plan: hematuria anemia of CKD transfusion support PRN Status: Acute (3) Prostate cancer Assessment & Plan: outpatient treatment Status: Acute
[2018-06-06] MEDS: Metoprolol Succinate 50 mg XL Tab PO SCH ×2 (08:47→22:55)
[2018-06-06] MEDS: Bacitracin OINT 15GM TP SCH (08:48)
[2018-06-06] MEDS: Pantoprazole 40 mg EC Tab PO SCH (08:48)
[2018-06-06] MEDS: Multivitamin Vitamin B Complex (Nephro-Vite) Tab PO SCH (08:48)
--- NOTE | 2018-06-06 10:01 | CP.PCM.PN ---
Subjective - Date & Time of Evaluation Date of Evaluation: 06/06/18 Time of Evaluation: 10:00 - Subjective Subjective: patient awake and conscious not in acute distress appears to be comfortable Objective - Vital Signs/Intake and Output Vital Signs (last 24 hours): Temp Pulse Resp BP Pulse Ox 98.3 F 106 H 20 137/83 95 06/06/18 09:22 06/06/18 09:22 06/06/18 09:22 06/06/18 09:22 06/06/18 09:22 Intake and Output: 06/06/18 06/06/18 06:59 18:59 Intake Total 1500 Output Total 500 Balance 1000 - Medications Medications: Current Medications Acetaminophen (Tylenol 325mg Tab) 650 mg PO Q4 PRN PRN Reason: Fever >100.4 F Acetaminophen (Tylenol 325mg Tab) 650 mg PO Q4 PRN PRN Reason: Pain, Mild (1-3) Last Admin: 06/04/18 23:35 Dose: 650 mg Bacitracin (Bacitracin Oint) 1 applic TP DAILY [facility] Last Admin: 06/06/18 08:48 Dose: 1 applic Calcium Acetate (Phoslo) 667 mg PO TID [facility] Last Admin: 06/06/18 08:47 Dose: 667 mg Epoetin Charles (Procrit) 10,000 unit SC TTS [facility] Finasteride (Proscar) 5 mg PO DAILY [facility] Last Admin: 06/06/18 08:49 Dose: 5 mg Fluticasone Propionate (Flonase) 1 spr [place] DAILY PRN PRN Reason: Nasal congestion Metoprolol Succinate (Toprol Xl) 50 mg PO Q12 [facility] Last Admin: 06/06/18 08:47 Dose: 50 mg Pantoprazole Sodium (Protonix Ec Tab) 40 mg PO DAILY [facility] Last Admin: 06/06/18 08:48 Dose: 40 mg Tamsulosin HCl (Flomax) 0.4 mg PO DAILY [facility] Last Admin: 06/06/18 08:48 Dose: 0.4 mg Vitamin B Complex/Vit C/Folic Acid (Nephro-Jj) 1 tab PO DAILY [facility] Last Admin: 06/06/18 08:48 Dose: 1 tab - Labs Labs: 06/05/18 06:57 06/05/18 06:57 PT 13.8 Seconds (9.8-13.1) H 05/25/18 16:15 INR 1.2 05/25/18 16:15 APTT 25.8 Seconds (25.6-37.1) 05/25/18 16:15 - Constitutional Appears: No Acute Distress - Eye Exam Eye Exam: Conjunctival injection - ENT Exam ENT Exam: Mucous Membranes Moist - Neck Exam Neck Exam: absent: Lymphadenopathy - Respiratory Exam Respiratory Exam: NORMAL BREATHING PATTERN. 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) gross hematuria persisted severe anemia prostatic CA coagulopathy the plan transfusion of cryoprecipitate and blood as needed as per hematology cut down on hemodialysis to twice a week patient receiving bladder irrigation status post cystoscopy Status: Chronic
--- NOTE | 2018-06-06 11:13 | PN ---
DATE: 06/06/2018 SUBJECTIVE: The patient seen and examined. Interim evens noted. Consults noted and appreciated. Hematology followup and intervention noted and appreciated. The patient remains in progressive care unit, on telemetry monitoring. The patient denies any specific complaint. Nursing staff reports still oozing of blood. PHYSICAL EXAMINATION: GENERAL: The patient is in no acute distress. VITAL SIGNS: Stable. No orthostatic changes. HEART: S1 and S2. Normal and regular. LUNGS: Good bilateral air exchange. ABDOMEN: Soft and nontender. EXTREMITIES: No edema. No calf swelling. No tenderness. No acute ischemia. BOBBIN INSPECTOR: Exam is essentially unchanged. GENITOURINARY: The patient does have some bloody urine in Banks catheter. DIAGNOSTIC DATA: Available diagnostic data reviewed. Telemetry monitoring does not reveal significant arrhythmias. Hemoglobin is 7.4. ASSESSMENT AND PLAN: The patient is still oozing for interventions. Plan as ordered. Hans Tineo MD
--- NOTE | 2018-06-07 08:28 | CP.PCM.PN ---
Subjective - Date & Time of Evaluation Date of Evaluation: 06/07/18 Time of Evaluation: 06:50 Objective - Vital Signs/Intake and Output Vital Signs (last 24 hours): Temp Pulse Resp BP Pulse Ox 98.3 F 99 H 18 146/66 96 06/07/18 04:57 06/07/18 04:57 06/07/18 04:57 06/07/18 04:57 06/07/18 04:57 Intake and Output: 06/07/18 06/07/18 06:59 18:59 Intake Total 600 Output Total 800 Balance -200 - Medications Medications: Current Medications Acetaminophen (Tylenol 325mg Tab) 650 mg PO Q4 PRN PRN Reason: Fever >100.4 F Acetaminophen (Tylenol 325mg Tab) 650 mg PO Q4 PRN PRN Reason: Pain, Mild (1-3) Last Admin: 06/04/18 23:35 Dose: 650 mg Bacitracin (Bacitracin Oint) 1 applic TP DAILY [facility] Last Admin: 06/06/18 08:48 Dose: 1 applic Calcium Acetate (Phoslo) 667 mg PO TID [facility] Last Admin: 06/06/18 17:36 Dose: 667 mg Epoetin Charles (Procrit) 10,000 unit SC TTS [facility] Finasteride (Proscar) 5 mg PO DAILY [facility] Last Admin: 06/06/18 08:49 Dose: 5 mg Fluticasone Propionate (Flonase) 1 spr [place] DAILY PRN PRN Reason: Nasal congestion Metoprolol Succinate (Toprol Xl) 50 mg PO Q12 [facility] Last Admin: 06/06/18 22:55 Dose: 50 mg Pantoprazole Sodium (Protonix Ec Tab) 40 mg PO DAILY [facility] Last Admin: 06/06/18 08:48 Dose: 40 mg Tamsulosin HCl (Flomax) 0.4 mg PO DAILY [facility] Last Admin: 06/06/18 08:48 Dose: 0.4 mg Vitamin B Complex/Vit C/Folic Acid (Nephro-Jj) 1 tab PO DAILY [facility] Last Admin: 06/06/18 08:48 Dose: 1 tab - Labs Labs: 06/05/18 06:57 06/05/18 06:57 PT 13.8 Seconds (9.8-13.1) H 05/25/18 16:15 INR 1.2 05/25/18 16:15 APTT 25.8 Seconds (25.6-37.1) 05/25/18 16:15
[2018-06-07] MEDS: Multivitamin Vitamin B Complex (Nephro-Vite) Tab PO SCH (08:56)
[2018-06-07] MEDS: Bacitracin OINT 15GM TP SCH (08:57)
[2018-06-07] MEDS: Pantoprazole 40 mg EC Tab PO SCH (08:57)
[2018-06-07] MEDS: Metoprolol Succinate 50 mg XL Tab PO SCH ×2 (08:57→23:24)
--- NOTE | 2018-06-07 11:18 | CP.PCM.PN ---
Subjective - Date & Time of Evaluation Date of Evaluation: 06/07/18 Time of Evaluation: 11:17 - Subjective Subjective: Patient awake and conscious he appears to be comfortable Objective - Vital Signs/Intake and Output Vital Signs (last 24 hours): Temp Pulse Resp BP Pulse Ox 98.3 F 92 H 20 144/88 100 06/07/18 08:32 06/07/18 08:32 06/07/18 08:32 06/07/18 08:32 06/07/18 08:32 Intake and Output: 06/07/18 06/07/18 06:59 18:59 Intake Total 600 Output Total 800 Balance -200 - Medications Medications: Current Medications Acetaminophen (Tylenol 325mg Tab) 650 mg PO Q4 PRN PRN Reason: Fever >100.4 F Acetaminophen (Tylenol 325mg Tab) 650 mg PO Q4 PRN PRN Reason: Pain, Mild (1-3) Last Admin: 06/04/18 23:35 Dose: 650 mg Bacitracin (Bacitracin Oint) 1 applic TP DAILY [facility] Last Admin: 06/07/18 08:57 Dose: 1 applic Calcium Acetate (Phoslo) 667 mg PO TID [facility] Last Admin: 06/07/18 08:56 Dose: 667 mg Epoetin Charles (Procrit) 10,000 unit SC TTS [facility] Finasteride (Proscar) 5 mg PO DAILY [facility] Last Admin: 06/07/18 08:56 Dose: 5 mg Fluticasone Propionate (Flonase) 1 spr [place] DAILY PRN PRN Reason: Nasal congestion Metoprolol Succinate (Toprol Xl) 50 mg PO Q12 [facility] Last Admin: 06/07/18 08:57 Dose: 50 mg Pantoprazole Sodium (Protonix Ec Tab) 40 mg PO DAILY [facility] Last Admin: 06/07/18 08:57 Dose: 40 mg Tamsulosin HCl (Flomax) 0.4 mg PO DAILY [facility] Last Admin: 06/07/18 08:57 Dose: 0.4 mg Vitamin B Complex/Vit C/Folic Acid (Nephro-Jj) 1 tab PO DAILY [facility] Last Admin: 06/07/18 08:56 Dose: 1 tab - Labs Labs: 06/05/18 06:57 06/05/18 06:57 PT 13.8 Seconds (9.8-13.1) H 05/25/18 16:15 INR 1.2 05/25/18 16:15 APTT 25.8 Seconds (25.6-37.1) 05/25/18 16:15 - Constitutional Appears: No Acute Distress - Eye Exam Eye Exam: Conjunctival injection - ENT Exam ENT Exam: Mucous Membranes Moist - Neck Exam Neck Exam: absent: Lymphadenopathy - Respiratory Exam Respiratory Exam: NORMAL BREATHING PATTERN. absent: Chest Wall Tenderness - Cardiovascular Exam Cardiovascular Exam: REGULAR RHYTHM. 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) gross hematuria persisted severe anemia prostatic CA coagulopathy the plan transfusion of cryoprecipitate and blood as needed as per hematology cut down on hemodialysis to twice a week patient receiving bladder irrigation status post cystoscopy hemoglobin dropping . Hemodialysis about to start now Status: Chronic
--- NOTE | 2018-06-07 12:07 | CP.PCM.PN ---
<AhoskieTennga - Last Filed: 06/07/18 12:22> Subjective - Date & Time of Evaluation Date of Evaluation: 06/07/18 Time of Evaluation: 07:10 - Subjective Subjective: Patient seen and examined with Dr. Tineo this morning. No acute overnight events. Patient had repeat cystoscopy with fulguration on 06/03/18. Urine catheter shows minimal hematuria with light tea color urine. No acute complaints. Objective - Vital Signs/Intake and Output Vital Signs (last 24 hours): Temp Pulse Resp BP Pulse Ox 98.3 F 92 H 20 144/88 100 06/07/18 08:32 06/07/18 08:32 06/07/18 08:32 06/07/18 08:32 06/07/18 08:32 Intake and Output: 06/07/18 06/07/18 06:59 18:59 Intake Total 600 Output Total 800 Balance -200 - Medications Medications: Current Medications Acetaminophen (Tylenol 325mg Tab) 650 mg PO Q4 PRN PRN Reason: Fever >100.4 F Acetaminophen (Tylenol 325mg Tab) 650 mg PO Q4 PRN PRN Reason: Pain, Mild (1-3) Last Admin: 06/04/18 23:35 Dose: 650 mg Bacitracin (Bacitracin Oint) 1 applic TP DAILY [facility] Last Admin: 06/07/18 08:57 Dose: 1 applic Calcium Acetate (Phoslo) 667 mg PO TID [facility] Last Admin: 06/07/18 08:56 Dose: 667 mg Epoetin Charles (Procrit) 10,000 unit SC TTS [facility] Finasteride (Proscar) 5 mg PO DAILY [facility] Last Admin: 06/07/18 08:56 Dose: 5 mg Fluticasone Propionate (Flonase) 1 spr [place] DAILY PRN PRN Reason: Nasal congestion Metoprolol Succinate (Toprol Xl) 50 mg PO Q12 [facility] Last Admin: 06/07/18 08:57 Dose: 50 mg Pantoprazole Sodium (Protonix Ec Tab) 40 mg PO DAILY [facility] Last Admin: 06/07/18 08:57 Dose: 40 mg Tamsulosin HCl (Flomax) 0.4 mg PO DAILY [facility] Last Admin: 06/07/18 08:57 Dose: 0.4 mg Vitamin B Complex/Vit C/Folic Acid (Nephro-Jj) 1 tab PO DAILY [facility] Last Admin: 06/07/18 08:56 Dose: 1 tab - Labs Labs: 06/05/18 06:57 06/05/18 06:57 PT 13.8 Seconds (9.8-13.1) H 05/25/18 16:15 INR 1.2 05/25/18 16:15 APTT 25.8 Seconds (25.6-37.1) 05/25/18 16:15 - Constitutional Appears: Non-toxic, No Acute Distress - Head Exam Head Exam: NORMAL INSPECTION - ENT Exam ENT Exam: Mucous Membranes Moist - Respiratory Exam Respiratory Exam: Clear to Ausculation Bilateral, NORMAL BREATHING PATTERN - Cardiovascular Exam Cardiovascular Exam: REGULAR RHYTHM, +S1, +S2 - GI/Abdominal Exam GI & Abdominal Exam: Soft, Normal Bowel Sounds. absent: Tenderness - Extremities Exam Extremities Exam: Pedal Edema - Neurological Exam Neurological Exam: Alert, Awake - Psychiatric Exam Psychiatric exam: Normal Affect - Skin Skin Exam: Normal Color Assessment and Plan (1) Prostate cancer Status: Chronic (2) ESRD (end stage renal disease) on dialysis Status: Chronic (3) Hematuria Status: Chronic (4) Anemia Status: Chronic - Assessment and Plan (Free Text) Assessment: 77 y/o M with a PMHx of ductal prostate cancer, ESRD, HTN, and Wageners Granulomatosis admitted due to gross hematuria at the long term. Plan: -Urologist on board -s/p repeat cystoscopy with fulguration on 05/04/18 -H&H 7.4/22.3 this morning, will transfuse 2 units of prbc -s/p Amikar drip and Crypercipitate transfusions. -Nephrology on board: C/W HD Patient seen, examined, and case discussed with Dr. Tineo. Sultan Mccarthy, pgy-2 <Hans Tineo - Last Filed: 06/11/18 11:42> Objective - Vital Signs/Intake and Output Vital Signs (last 24 hours): Temp Pulse Resp BP Pulse Ox 99.4 F 96 H 20 163/97 H 96 06/11/18 04:27 06/11/18 04:27 06/11/18 04:27 06/11/18 04:27 06/11/18 04:27 - Medications Medications: Current Medications Acetaminophen (Tylenol 325mg Tab) 650 mg PO Q4 PRN PRN Reason: Fever >100.4 F Last Admin: 06/09/18 19:59 Dose: 650 mg Acetaminophen (Tylenol 325mg Tab) 650 mg PO Q4 PRN PRN Reason: Pain, Mild (1-3) Last Admin: 06/07/18 23:23 Dose: 650 mg Bacitracin (Bacitracin Oint) 1 applic TP DAILY [facility] Last Admin: 06/11/18 09:26 Dose: 1 applic Calcium Acetate (Phoslo) 667 mg PO TID [facility] Last Admin: 06/11/18 09:26 Dose: 667 mg Epoetin Charles (Procrit) 10,000 unit SC TTS [facility] Last Admin: 06/11/18 09:26 Dose: 10,000 unit Finasteride (Proscar) 5 mg PO DAILY [facility] Last Admin: 06/11/18 09:26 Dose: 5 mg Fluticasone Propionate (Flonase) 1 spr [facility] DAILY PRN PRN Reason: Nasal congestion Metoprolol Succinate (Toprol Xl) 50 mg PO Q12 [facility] Last Admin: 06/11/18 09:26 Dose: 50 mg Pantoprazole Sodium (Protonix Ec Tab) 40 mg PO DAILY [facility] Last Admin: 06/11/18 09:26 Dose: 40 mg Tamsulosin HCl (Flomax) 0.4 mg PO DAILY [facility] Last Admin: 06/11/18 09:25 Dose: 0.4 mg Vitamin B Complex/Vit C/Folic Acid (Nephro-Jj) 1 tab PO DAILY [facility] Last Admin: 06/11/18 09:25 Dose: 1 tab - Labs Labs: 06/10/18 10:05 06/10/18 12:10 PT 13.8 Seconds (9.8-13.1) H 05/25/18 16:15 INR 1.2 05/25/18 16:15 APTT 25.8 Seconds (25.6-37.1) 05/25/18 16:15 Assessment and Plan - Assessment and Plan (Free Text) Assessment: Patient was personally seen and examined by me in rounds with residents. Available labs and diagnostic data reviewed. Case, Patient's condition and management plan discussed with residents in rounds. Agree with resident's progress note. Plan: As ordered.
--- NOTE | 2018-06-07 12:34 | CP.PCM.PN ---
Subjective - Date & Time of Evaluation Date of Evaluation: 06/07/18 Time of Evaluation: 12:34 - Subjective Subjective: UROLOGY pt seen over past several days post a repeated attempt at prostate cauterization. he currently has CBI which when it runs the urine clears easily but when stopped it resumes a gross red appearence. The patient hardly has any real po fluid intake, making internal bladder irriigation ineffective thereby requiring CBI. Today he is for dialysis and transfusion. will monitor how quickly he drops his count and cont to observe urine output Objective - Vital Signs/Intake and Output Vital Signs (last 24 hours): Temp Pulse Resp BP Pulse Ox 98.3 F 92 H 20 144/88 100 06/07/18 08:32 06/07/18 08:32 06/07/18 08:32 06/07/18 08:32 06/07/18 08:32 Intake and Output: 06/07/18 06/07/18 06:59 18:59 Intake Total 600 Output Total 800 Balance -200 - Medications Medications: Current Medications Acetaminophen (Tylenol 325mg Tab) 650 mg PO Q4 PRN PRN Reason: Fever >100.4 F Acetaminophen (Tylenol 325mg Tab) 650 mg PO Q4 PRN PRN Reason: Pain, Mild (1-3) Last Admin: 06/04/18 23:35 Dose: 650 mg Bacitracin (Bacitracin Oint) 1 applic TP DAILY [facility] Last Admin: 06/07/18 08:57 Dose: 1 applic Calcium Acetate (Phoslo) 667 mg PO TID [facility] Last Admin: 06/07/18 08:56 Dose: 667 mg Epoetin Charles (Procrit) 10,000 unit SC TTS [facility] Finasteride (Proscar) 5 mg PO DAILY [facility] Last Admin: 06/07/18 08:56 Dose: 5 mg Fluticasone Propionate (Flonase) 1 spr [place] DAILY PRN PRN Reason: Nasal congestion Metoprolol Succinate (Toprol Xl) 50 mg PO Q12 [facility] Last Admin: 06/07/18 08:57 Dose: 50 mg Pantoprazole Sodium (Protonix Ec Tab) 40 mg PO DAILY [facility] Last Admin: 06/07/18 08:57 Dose: 40 mg Tamsulosin HCl (Flomax) 0.4 mg PO DAILY [facility] Last Admin: 06/07/18 08:57 Dose: 0.4 mg Vitamin B Complex/Vit C/Folic Acid (Nephro-Jj) 1 tab PO DAILY [facility] Last Admin: 06/07/18 08:56 Dose: 1 tab - Labs Labs: 06/05/18 06:57 06/05/18 06:57 PT 13.8 Seconds (9.8-13.1) H 05/25/18 16:15 INR 1.2 05/25/18 16:15 APTT 25.8 Seconds (25.6-37.1) 05/25/18 16:15
[2018-06-07] MEDS: EPOETIN ALFA 10,000 UNIT/ML ML SC SCH (19:05)
--- NOTE | 2018-06-07 20:18 | CP.PCM.PN ---
Subjective - Date & Time of Evaluation Date of Evaluation: 06/06/18 Time of Evaluation: 19:00 - Subjective Subjective: No complaints Objective - Vital Signs/Intake and Output Vital Signs (last 24 hours): Temp Pulse Resp BP Pulse Ox 98.5 F 98 H 20 139/81 98 06/07/18 19:33 06/07/18 19:33 06/07/18 19:33 06/07/18 19:33 06/07/18 19:33 Intake and Output: 06/07/18 06/08/18 18:59 06:59 Intake Total 600 Output Total 800 Balance -200 - Medications Medications: Current Medications Acetaminophen (Tylenol 325mg Tab) 650 mg PO Q4 PRN PRN Reason: Fever >100.4 F Acetaminophen (Tylenol 325mg Tab) 650 mg PO Q4 PRN PRN Reason: Pain, Mild (1-3) Last Admin: 06/04/18 23:35 Dose: 650 mg Bacitracin (Bacitracin Oint) 1 applic TP DAILY [facility] Last Admin: 06/07/18 08:57 Dose: 1 applic Calcium Acetate (Phoslo) 667 mg PO TID [facility] Last Admin: 06/07/18 18:50 Dose: 667 mg Epoetin Charles (Procrit) 10,000 unit SC TTS [facility] Last Admin: 06/07/18 19:05 Dose: 10,000 unit Finasteride (Proscar) 5 mg PO DAILY [facility] Last Admin: 06/07/18 08:56 Dose: 5 mg Fluticasone Propionate (Flonase) 1 spr [place] DAILY PRN PRN Reason: Nasal congestion Metoprolol Succinate (Toprol Xl) 50 mg PO Q12 [facility] Last Admin: 06/07/18 08:57 Dose: 50 mg Pantoprazole Sodium (Protonix Ec Tab) 40 mg PO DAILY [facility] Last Admin: 06/07/18 08:57 Dose: 40 mg Tamsulosin HCl (Flomax) 0.4 mg PO DAILY [facility] Last Admin: 06/07/18 08:57 Dose: 0.4 mg Vitamin B Complex/Vit C/Folic Acid (Nephro-Jj) 1 tab PO DAILY [facility] Last Admin: 06/07/18 08:56 Dose: 1 tab - Labs Labs: 06/05/18 06:57 06/05/18 06:57 PT 13.8 Seconds (9.8-13.1) H 05/25/18 16:15 INR 1.2 05/25/18 16:15 APTT 25.8 Seconds (25.6-37.1) 05/25/18 16:15 - Head Exam Head Exam: ATRAUMATIC - Eye Exam Eye Exam: Normal appearance - ENT Exam ENT Exam: Mucous Membranes Dry - Respiratory Exam Respiratory Exam: NORMAL BREATHING PATTERN - Cardiovascular Exam Cardiovascular Exam: +S1, +S2 - GI/Abdominal Exam GI & Abdominal Exam: Normal Bowel Sounds Assessment and Plan (1) Hematuria Assessment & Plan: hypofibrinogenemia; 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 Status: Chronic (2) Anemia Assessment & Plan: hematuria anemia of CKD transfusion support PRN Status: Chronic (3) Prostate cancer Assessment & Plan: outpatient treatment Status: Chronic
--- NOTE | 2018-06-07 20:20 | CP.PCM.PN ---
Subjective - Date & Time of Evaluation Date of Evaluation: 06/07/18 Time of Evaluation: 17:00 - Subjective Subjective: No complaints Dark colored urine Objective - Vital Signs/Intake and Output Vital Signs (last 24 hours): Temp Pulse Resp BP Pulse Ox 98.5 F 98 H 20 139/81 98 06/07/18 19:33 06/07/18 19:33 06/07/18 19:33 06/07/18 19:33 06/07/18 19:33 Intake and Output: 06/07/18 06/08/18 18:59 06:59 Intake Total 600 Output Total 800 Balance -200 - Medications Medications: Current Medications Acetaminophen (Tylenol 325mg Tab) 650 mg PO Q4 PRN PRN Reason: Fever >100.4 F Acetaminophen (Tylenol 325mg Tab) 650 mg PO Q4 PRN PRN Reason: Pain, Mild (1-3) Last Admin: 06/04/18 23:35 Dose: 650 mg Bacitracin (Bacitracin Oint) 1 applic TP DAILY [facility] Last Admin: 06/07/18 08:57 Dose: 1 applic Calcium Acetate (Phoslo) 667 mg PO TID [facility] Last Admin: 06/07/18 18:50 Dose: 667 mg Epoetin Charles (Procrit) 10,000 unit SC TTS [facility] Last Admin: 06/07/18 19:05 Dose: 10,000 unit Finasteride (Proscar) 5 mg PO DAILY [facility] Last Admin: 06/07/18 08:56 Dose: 5 mg Fluticasone Propionate (Flonase) 1 spr [place] DAILY PRN PRN Reason: Nasal congestion Metoprolol Succinate (Toprol Xl) 50 mg PO Q12 [facility] Last Admin: 06/07/18 08:57 Dose: 50 mg Pantoprazole Sodium (Protonix Ec Tab) 40 mg PO DAILY [facility] Last Admin: 06/07/18 08:57 Dose: 40 mg Tamsulosin HCl (Flomax) 0.4 mg PO DAILY [facility] Last Admin: 06/07/18 08:57 Dose: 0.4 mg Vitamin B Complex/Vit C/Folic Acid (Nephro-Jj) 1 tab PO DAILY [facility] Last Admin: 06/07/18 08:56 Dose: 1 tab - Labs Labs: 06/05/18 06:57 06/05/18 06:57 PT 13.8 Seconds (9.8-13.1) H 05/25/18 16:15 INR 1.2 05/25/18 16:15 APTT 25.8 Seconds (25.6-37.1) 05/25/18 16:15 - Head Exam Head Exam: ATRAUMATIC - Eye Exam Eye Exam: Normal appearance - ENT Exam ENT Exam: Mucous Membranes Dry - Respiratory Exam Respiratory Exam: NORMAL BREATHING PATTERN - Cardiovascular Exam Cardiovascular Exam: +S1, +S2 - GI/Abdominal Exam GI & Abdominal Exam: Normal Bowel Sounds Assessment and Plan (1) Hematuria Assessment & Plan: hypofibrinogenemia; 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 Status: Chronic (2) Anemia Assessment & Plan: hematuria anemia of CKD transfusion support PRN Status: Chronic (3) Prostate cancer Assessment & Plan: outpatient treatment Status: Chronic
[2018-06-08] MEDS: Bacitracin OINT 15GM TP SCH (08:48)
[2018-06-08] MEDS: Metoprolol Succinate 50 mg XL Tab PO SCH ×2 (08:48→20:30)
[2018-06-08] MEDS: Multivitamin Vitamin B Complex (Nephro-Vite) Tab PO SCH (08:48)
[2018-06-08] MEDS: Pantoprazole 40 mg EC Tab PO SCH (08:49)
--- NOTE | 2018-06-08 11:47 | CP.PCM.PN ---
Subjective - Date & Time of Evaluation Date of Evaluation: 06/08/18 Time of Evaluation: 11:45 - Subjective Subjective: patient is stable not in acute distress no nausea or vomiting Objective - Vital Signs/Intake and Output Vital Signs (last 24 hours): Temp Pulse Resp BP Pulse Ox 98.1 F 97 H 20 147/85 99 06/08/18 09:31 06/08/18 09:31 06/08/18 09:31 06/08/18 09:31 06/08/18 09:31 Intake and Output: 06/08/18 06/08/18 06:59 18:59 Output Total 530 Balance -530 - Medications Medications: Current Medications Acetaminophen (Tylenol 325mg Tab) 650 mg PO Q4 PRN PRN Reason: Fever >100.4 F Acetaminophen (Tylenol 325mg Tab) 650 mg PO Q4 PRN PRN Reason: Pain, Mild (1-3) Last Admin: 06/07/18 23:23 Dose: 650 mg Bacitracin (Bacitracin Oint) 1 applic TP DAILY [facility] Last Admin: 06/08/18 08:48 Dose: 1 applic Calcium Acetate (Phoslo) 667 mg PO TID [facility] Last Admin: 06/08/18 08:49 Dose: 667 mg Epoetin Charles (Procrit) 10,000 unit SC TTS [facility] Last Admin: 06/07/18 19:05 Dose: 10,000 unit Finasteride (Proscar) 5 mg PO DAILY [facility] Last Admin: 06/08/18 08:48 Dose: 5 mg Fluticasone Propionate (Flonase) 1 spr [place] DAILY PRN PRN Reason: Nasal congestion Metoprolol Succinate (Toprol Xl) 50 mg PO Q12 [facility] Last Admin: 06/08/18 08:48 Dose: 50 mg Pantoprazole Sodium (Protonix Ec Tab) 40 mg PO DAILY [facility] Last Admin: 06/08/18 08:49 Dose: 40 mg Tamsulosin HCl (Flomax) 0.4 mg PO DAILY [facility] Last Admin: 06/08/18 08:49 Dose: 0.4 mg Vitamin B Complex/Vit C/Folic Acid (Nephro-Jj) 1 tab PO DAILY [facility] Last Admin: 06/08/18 08:48 Dose: 1 tab - Labs Labs: 06/05/18 06:57 06/05/18 06:57 PT 13.8 Seconds (9.8-13.1) H 05/25/18 16:15 INR 1.2 05/25/18 16:15 APTT 25.8 Seconds (25.6-37.1) 05/25/18 16:15 - Constitutional Appears: No Acute Distress - ENT Exam ENT Exam: Mucous Membranes Moist - Neck Exam Neck Exam: absent: Lymphadenopathy - Respiratory Exam Respiratory Exam: NORMAL BREATHING PATTERN - Cardiovascular Exam Cardiovascular Exam: absent: Diastolic murmur, Gallop, Rubs - GI/Abdominal Exam GI & Abdominal Exam: Soft, Normal Bowel Sounds - Extremities Exam Extremities Exam: absent: Calf Tenderness - Back Exam Back Exam: absent: CVA tenderness (L), CVA tenderness (R) - Neurological Exam Neurological Exam: Alert - Psychiatric Exam Psychiatric exam: Normal Affect Assessment and Plan (1) ESRD (end stage renal disease) on dialysis Assessment & Plan: 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) gross hematuria persisted severe anemia prostatic CA coagulopathy the plan transfusion of cryoprecipitate and blood as needed as per hematology cut down on hemodialysis to twice a week patient receiving bladder irrigation status post cystoscopy hemoglobin dropping . discussed with the nurse practitioner Status: Chronic
--- NOTE | 2018-06-09 08:24 | CP.PCM.PN ---
<[email or web address] - Last Filed: 06/09/18 08:22> Subjective - Date & Time of Evaluation Date of Evaluation: 06/09/18 Time of Evaluation: 07:20 - Subjective Subjective: Patient seen and examined with Dr. Tineo this morning. No acute overnight events. Bright red urine noted on CBI. Patient refused blood work for last couple of days. Will have HD today. Denies any complaints. Objective - Vital Signs/Intake and Output Vital Signs (last 24 hours): Temp Pulse Resp BP Pulse Ox 98.2 F 97 H 18 150/78 98 06/09/18 07:59 06/09/18 07:59 06/09/18 07:59 06/09/18 07:59 06/09/18 07:59 Intake and Output: 06/09/18 06/09/18 06:59 18:59 Intake Total 250 Output Total 600 Balance -350 - Medications Medications: Current Medications Acetaminophen (Tylenol 325mg Tab) 650 mg PO Q4 PRN PRN Reason: Fever >100.4 F Acetaminophen (Tylenol 325mg Tab) 650 mg PO Q4 PRN PRN Reason: Pain, Mild (1-3) Last Admin: 06/07/18 23:23 Dose: 650 mg Bacitracin (Bacitracin Oint) 1 applic TP DAILY [facility] Last Admin: 06/08/18 08:48 Dose: 1 applic Calcium Acetate (Phoslo) 667 mg PO TID [facility] Last Admin: 06/08/18 16:25 Dose: 667 mg Epoetin Charles (Procrit) 10,000 unit SC TTS [facility] Last Admin: 06/07/18 19:05 Dose: 10,000 unit Finasteride (Proscar) 5 mg PO DAILY [facility] Last Admin: 06/08/18 08:48 Dose: 5 mg Fluticasone Propionate (Flonase) 1 spr [place] DAILY PRN PRN Reason: Nasal congestion Metoprolol Succinate (Toprol Xl) 50 mg PO Q12 [facility] Last Admin: 06/08/18 20:30 Dose: 50 mg Pantoprazole Sodium (Protonix Ec Tab) 40 mg PO DAILY [facility] Last Admin: 06/08/18 08:49 Dose: 40 mg Tamsulosin HCl (Flomax) 0.4 mg PO DAILY [facility] Last Admin: 06/08/18 08:49 Dose: 0.4 mg Vitamin B Complex/Vit C/Folic Acid (Nephro-Jj) 1 tab PO DAILY [facility] Last Admin: 06/08/18 08:48 Dose: 1 tab - Labs Labs: 06/05/18 06:57 06/05/18 06:57 PT 13.8 Seconds (9.8-13.1) H 05/25/18 16:15 INR 1.2 05/25/18 16:15 APTT 25.8 Seconds (25.6-37.1) 05/25/18 16:15 - Additional Findings Additional findings: - Constitutional Appears: Non-toxic, No Acute Distress - Head Exam Head Exam: NORMAL INSPECTION - ENT Exam ENT Exam: Mucous Membranes Moist - Respiratory Exam Respiratory Exam: Clear to Ausculation Bilateral, NORMAL BREATHING PATTERN - Cardiovascular Exam Cardiovascular Exam: REGULAR RHYTHM, +S1, +S2 - GI/Abdominal Exam GI & Abdominal Exam: Soft, Normal Bowel Sounds. absent: Tenderness - Extremities Exam Extremities Exam: Pedal Edema - Neurological Exam Neurological Exam: Alert, Awake - Psychiatric Exam Psychiatric exam: Normal Affect - Skin Skin Exam: Normal Color Assessment and Plan (1) Prostate cancer Status: Chronic (2) ESRD (end stage renal disease) on dialysis Status: Chronic (3) Hematuria Status: Chronic (4) Anemia Status: Chronic - Assessment and Plan (Free Text) Assessment: 77 y/o M with a PMHx of ductal prostate cancer, ESRD, HTN, and Wageners Granulomatosis admitted due to gross hematuria. Plan: -Urologist on board -s/p repeat cystoscopy with fulguration on 05/04/18 -H&H 7.4/22.3 on 06/05/18, no cbc since then as patient refuses blood work. -s/p Amikar drip and Crypercipitate transfusions. -Nephrology on board: C/W HD -HD today. Patient seen, examined, and case discussed with Dr. Tineo. Sultan Mccarthy, pgy-2 <Hans Tineo - Last Filed: 06/11/18 11:48> Objective - Vital Signs/Intake and Output Vital Signs (last 24 hours): Temp Pulse Resp BP Pulse Ox 99.4 F 96 H 20 163/97 H 96 06/11/18 04:27 06/11/18 04:27 06/11/18 04:27 06/11/18 04:27 06/11/18 04:27 - Medications Medications: Current Medications Acetaminophen (Tylenol 325mg Tab) 650 mg PO Q4 PRN PRN Reason: Fever >100.4 F Last Admin: 06/09/18 19:59 Dose: 650 mg Acetaminophen (Tylenol 325mg Tab) 650 mg PO Q4 PRN PRN Reason: Pain, Mild (1-3) Last Admin: 06/07/18 23:23 Dose: 650 mg Bacitracin (Bacitracin Oint) 1 applic TP DAILY [facility] Last Admin: 06/11/18 09:26 Dose: 1 applic Calcium Acetate (Phoslo) 667 mg PO TID [facility] Last Admin: 06/11/18 09:26 Dose: 667 mg Epoetin Charles (Procrit) 10,000 unit SC TTS [facility] Last Admin: 06/11/18 09:26 Dose: 10,000 unit Finasteride (Proscar) 5 mg PO DAILY [facility] Last Admin: 06/11/18 09:26 Dose: 5 mg Fluticasone Propionate (Flonase) 1 spr [place] DAILY PRN PRN Reason: Nasal congestion Metoprolol Succinate (Toprol Xl) 50 mg PO Q12 [facility] Last Admin: 06/11/18 09:26 Dose: 50 mg Pantoprazole Sodium (Protonix Ec Tab) 40 mg PO DAILY [facility] Last Admin: 06/11/18 09:26 Dose: 40 mg Tamsulosin HCl (Flomax) 0.4 mg PO DAILY [facility] Last Admin: 06/11/18 09:25 Dose: 0.4 mg Vitamin B Complex/Vit C/Folic Acid (Nephro-Jj) 1 tab PO DAILY [facility] Last Admin: 06/11/18 09:25 Dose: 1 tab - Labs Labs: 06/10/18 10:05 06/10/18 12:10 PT 13.8 Seconds (9.8-13.1) H 05/25/18 16:15 INR 1.2 05/25/18 16:15 APTT 25.8 Seconds (25.6-37.1) 05/25/18 16:15 Assessment and Plan - Assessment and Plan (Free Text) Assessment: Patient was personally seen and examined by me in rounds with residents. Available labs and diagnostic data reviewed. Case, Patient's condition and management plan discussed with residents in rounds. Agree with resident's progress note. Plan: As ordered.
--- NOTE | 2018-06-09 08:53 | PN ---
DATE: 06/08/2018 SUBJECTIVE: The patient seen and examined. Interim events noted. Consults noted and appreciated. Urology and Hematology followup and interventions noted and appreciated. The patient remains in progressive care unit, on telemetry monitoring with the bladder irrigation, draining pinkish fluid. The patient denies any chest pain, shortness of breath or any urinary symptoms other than discomfort from catheter. No specific issue reported by nursing staff also other than pinkish urine. PHYSICAL EXAMINATION: GENERAL: The patient is in no acute distress. VITAL SIGNS: Stable. HEART: S1 and S2, normal and regular. LUNGS: Good bilateral air exchange. ABDOMEN: Soft, nontender. EXTREMITIES: No edema. No calf swelling. No tenderness. No acute ischemia. INSURANCE CLAIMS CLERK: Exam is essentially unchanged. DIAGNOSTIC DATA: Available diagnostic data reviewed. ASSESSMENT AND PLAN: Overall, the patient's general medical condition is stable. Plan as ordered. Hans Tineo MD
[2018-06-09] MEDS: Bacitracin OINT 15GM TP SCH (09:40)
[2018-06-09] MEDS: Multivitamin Vitamin B Complex (Nephro-Vite) Tab PO SCH (09:40)
[2018-06-09] MEDS: Metoprolol Succinate 50 mg XL Tab PO SCH ×3 (09:41→22:03)
[2018-06-09] MEDS: Pantoprazole 40 mg EC Tab PO SCH (09:41)
--- NOTE | 2018-06-09 10:36 | CP.PCM.PN ---
Subjective - Date & Time of Evaluation Date of Evaluation: 06/09/18 Time of Evaluation: 10:34 - Subjective Subjective: patient conscious and alert not in acute distress Vital signs stable He refused the blood test Objective - Vital Signs/Intake and Output Vital Signs (last 24 hours): Temp Pulse Resp BP Pulse Ox 98.2 F 97 H 18 150/75 98 06/09/18 07:59 06/09/18 07:59 06/09/18 07:59 06/09/18 09:41 06/09/18 07:59 Intake and Output: 06/09/18 06/09/18 06:59 18:59 Intake Total 250 Output Total 600 Balance -350 - Medications Medications: Current Medications Acetaminophen (Tylenol 325mg Tab) 650 mg PO Q4 PRN PRN Reason: Fever >100.4 F Acetaminophen (Tylenol 325mg Tab) 650 mg PO Q4 PRN PRN Reason: Pain, Mild (1-3) Last Admin: 06/07/18 23:23 Dose: 650 mg Bacitracin (Bacitracin Oint) 1 applic TP DAILY [facility] Last Admin: 06/09/18 09:40 Dose: 1 applic Calcium Acetate (Phoslo) 667 mg PO TID [facility] Last Admin: 06/09/18 09:40 Dose: 667 mg Epoetin Charles (Procrit) 10,000 unit SC TTS [facility] Last Admin: 06/07/18 19:05 Dose: 10,000 unit Finasteride (Proscar) 5 mg PO DAILY [facility] Last Admin: 06/09/18 09:40 Dose: 5 mg Fluticasone Propionate (Flonase) 1 spr [place] DAILY PRN PRN Reason: Nasal congestion Metoprolol Succinate (Toprol Xl) 50 mg PO Q12 [facility] Last Admin: 06/09/18 09:41 Dose: 50 mg Pantoprazole Sodium (Protonix Ec Tab) 40 mg PO DAILY [facility] Last Admin: 06/09/18 09:41 Dose: 40 mg Tamsulosin HCl (Flomax) 0.4 mg PO DAILY [facility] Last Admin: 06/09/18 09:40 Dose: 0.4 mg Vitamin B Complex/Vit C/Folic Acid (Nephro-Jj) 1 tab PO DAILY [facility] Last Admin: 06/09/18 09:40 Dose: 1 tab - Labs Labs: 06/05/18 06:57 06/05/18 06:57 PT 13.8 Seconds (9.8-13.1) H 05/25/18 16:15 INR 1.2 05/25/18 16:15 APTT 25.8 Seconds (25.6-37.1) 05/25/18 16:15 - Constitutional Appears: No Acute Distress - Eye Exam Eye Exam: Conjunctival injection - ENT Exam ENT Exam: Mucous Membranes Moist - Neck Exam Neck Exam: absent: Lymphadenopathy - Respiratory Exam Respiratory Exam: NORMAL BREATHING PATTERN. 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) gross hematuria persisted severe anemia prostatic CA coagulopathy the plan transfusion of cryoprecipitate and blood as needed as per hematology cut down on hemodialysis to twice a week patient receiving bladder irrigation status post cystoscopy . follow-up CBC to decide about blood transfusion Status: Chronic
[2018-06-09] MEDS: EPOETIN ALFA 10,000 UNIT/ML ML SC SCH (16:31)
--- NOTE | 2018-06-10 08:06 | CP.PCM.PN ---
<CalpineSultan - Last Filed: 06/10/18 09:30> Subjective - Date & Time of Evaluation Date of Evaluation: 06/10/18 Time of Evaluation: 07:25 - Subjective Subjective: Patient seen and examined with Dr. Tineo this morning. No acute overnight events. CBI infusion urine looks watchguard than yesterday. Patient continues to refuse blood work. Denies any complaints. Objective - Vital Signs/Intake and Output Vital Signs (last 24 hours): Temp Pulse Resp BP Pulse Ox 98.1 F 97 H 18 129/80 99 06/10/18 05:19 06/10/18 05:19 06/10/18 05:19 06/10/18 05:19 06/10/18 05:19 - Medications Medications: Current Medications Acetaminophen (Tylenol 325mg Tab) 650 mg PO Q4 PRN PRN Reason: Fever >100.4 F Last Admin: 06/09/18 19:59 Dose: 650 mg Acetaminophen (Tylenol 325mg Tab) 650 mg PO Q4 PRN PRN Reason: Pain, Mild (1-3) Last Admin: 06/07/18 23:23 Dose: 650 mg Bacitracin (Bacitracin Oint) 1 applic TP DAILY [facility] Last Admin: 06/09/18 09:40 Dose: 1 applic Calcium Acetate (Phoslo) 667 mg PO TID [facility] Last Admin: 06/09/18 16:29 Dose: 667 mg Epoetin Charles (Procrit) 10,000 unit SC TTS [facility] Last Admin: 06/09/18 16:31 Dose: 10,000 unit Finasteride (Proscar) 5 mg PO DAILY [facility] Last Admin: 06/09/18 09:40 Dose: 5 mg Fluticasone Propionate (Flonase) 1 spr [place]ERIA DAILY PRN PRN Reason: Nasal congestion Metoprolol Succinate (Toprol Xl) 50 mg PO Q12 [facility] Last Admin: 06/09/18 22:03 Dose: Not Given Pantoprazole Sodium (Protonix Ec Tab) 40 mg PO DAILY [facility] Last Admin: 06/09/18 09:41 Dose: 40 mg Tamsulosin HCl (Flomax) 0.4 mg PO DAILY [facility] Last Admin: 06/09/18 09:40 Dose: 0.4 mg Vitamin B Complex/Vit C/Folic Acid (Nephro-Jj) 1 tab PO DAILY [facility] Last Admin: 06/09/18 09:40 Dose: 1 tab - Labs Labs: 06/05/18 06:57 06/05/18 06:57 PT 13.8 Seconds (9.8-13.1) H 05/25/18 16:15 INR 1.2 05/25/18 16:15 APTT 25.8 Seconds (25.6-37.1) 05/25/18 16:15 - Additional Findings Additional findings: - Constitutional Appears: Non-toxic, No Acute Distress - Head Exam Head Exam: NORMAL INSPECTION - ENT Exam ENT Exam: Mucous Membranes Moist - Respiratory Exam Respiratory Exam: Clear to Ausculation Bilateral, NORMAL BREATHING PATTERN - Cardiovascular Exam Cardiovascular Exam: REGULAR RHYTHM, +S1, +S2 - GI/Abdominal Exam GI & Abdominal Exam: Soft, Normal Bowel Sounds. absent: Tenderness - Extremities Exam Extremities Exam: Pedal Edema - Neurological Exam Neurological Exam: Alert, Awake - Psychiatric Exam Psychiatric exam: Normal Affect - Skin Skin Exam: Normal Color Assessment and Plan (1) Prostate cancer Status: Chronic (2) ESRD (end stage renal disease) on dialysis Status: Chronic (3) Hematuria Status: Chronic (4) Anemia Status: Chronic - Assessment and Plan (Free Text) Assessment: 77 y/o M with a PMHx of ductal prostate cancer, ESRD, HTN, and Wageners Granulomatosis admitted due to gross hematuria. Plan: -Urologist on board -s/p repeat cystoscopy with fulguration on 05/04/18 -H&H 7.4/22.3 on 06/05/18, no cbc since then as patient refuses blood work. -s/p Amikar drip and Crypercipitate transfusions. -Nephrology on board: C/W HD Patient seen, examined, and case discussed with Dr. Tineo. Sultan Mccarthy, pgy-2 <Hans Tineo - Last Filed: 06/11/18 11:47> Objective - Vital Signs/Intake and Output Vital Signs (last 24 hours): Temp Pulse Resp BP Pulse Ox 99.4 F 96 H 20 163/97 H 96 06/11/18 04:27 06/11/18 04:27 06/11/18 04:27 06/11/18 04:27 06/11/18 04:27 - Medications Medications: Current Medications Acetaminophen (Tylenol 325mg Tab) 650 mg PO Q4 PRN PRN Reason: Fever >100.4 F Last Admin: 06/09/18 19:59 Dose: 650 mg Acetaminophen (Tylenol 325mg Tab) 650 mg PO Q4 PRN PRN Reason: Pain, Mild (1-3) Last Admin: 06/07/18 23:23 Dose: 650 mg Bacitracin (Bacitracin Oint) 1 applic TP DAILY [facility] Last Admin: 06/11/18 09:26 Dose: 1 applic Calcium Acetate (Phoslo) 667 mg PO TID [facility] Last Admin: 06/11/18 09:26 Dose: 667 mg Epoetin Charles (Procrit) 10,000 unit SC TTS [facility] Last Admin: 06/11/18 09:26 Dose: 10,000 unit Finasteride (Proscar) 5 mg PO DAILY [facility] Last Admin: 06/11/18 09:26 Dose: 5 mg Fluticasone Propionate (Flonase) 1 spr VALERIA DAILY PRN PRN Reason: Nasal congestion Metoprolol Succinate (Toprol Xl) 50 mg PO Q12 [facility] Last Admin: 06/11/18 09:26 Dose: 50 mg Pantoprazole Sodium (Protonix Ec Tab) 40 mg PO DAILY [facility] Last Admin: 06/11/18 09:26 Dose: 40 mg Tamsulosin HCl (Flomax) 0.4 mg PO DAILY [facility] Last Admin: 06/11/18 09:25 Dose: 0.4 mg Vitamin B Complex/Vit C/Folic Acid (Nephro-Jj) 1 tab PO DAILY [facility] Last Admin: 06/11/18 09:25 Dose: 1 tab - Labs Labs: 06/10/18 10:05 06/10/18 12:10 PT 13.8 Seconds (9.8-13.1) H 05/25/18 16:15 INR 1.2 05/25/18 16:15 APTT 25.8 Seconds (25.6-37.1) 05/25/18 16:15 Assessment and Plan - Assessment and Plan (Free Text) Assessment: Patient was personally seen and examined by me in rounds with residents. Available labs and diagnostic data reviewed. Case, Patient's condition and management plan discussed with residents in rounds. Agree with resident's progress note. Plan: As ordered.
[2018-06-10] MEDS: Multivitamin Vitamin B Complex (Nephro-Vite) Tab PO SCH (09:07)
[2018-06-10] MEDS: Bacitracin OINT 15GM TP SCH (09:07)
[2018-06-10] MEDS: Pantoprazole 40 mg EC Tab PO SCH (09:08)
[2018-06-10] MEDS: Metoprolol Succinate 50 mg XL Tab PO SCH ×2 (09:08→21:19)
[2018-06-10 10:15] LABS: BASO % 0.4 % (0.0-2.0); EOS # 0.1 K/uL (0.0-0.7); EOS % 0.9 % (0.0-4.0); HEMOGLOBIN 8.6 g/dL (12.0-18.0); LYMPH % 8.7 % (20.0-40.0); MEAN CELL VOLUME 91.3 fl (80.0-94.0); MEAN CORPUSCULAR HEMOGLOBIN 30.9 pg (27.0-31.0); MEAN CORPUSCULAR HGB CONC 33.9 g/dL (33.0-37.0); MEAN PLATELET VOLUME 6.8 fl (7.2-11.7); MONO # 1.3 K/uL (0.0-0.8); MONO % 11.3 % (0.0-10.0); NEUT # 9.1 K/uL (1.8-7.0); NEUT % 78.7 % (50.0-75.0); PLATELET COUNT 359 K/uL (130-400); RBC 2.78 Mil/uL (4.40-5.90); RED CELL DISTRIBUTION WIDTH 16.5 % (11.5-14.5); WHITE BLOOD COUNT 11.6 K/uL (4.8-10.8)
[2018-06-10 11:42] LABS: ANISOCYTOSIS SLIGHT; BANDS 2 % (0-2); EOSINOPHIL 1 % (0-7); LYMPHOCYTE 8 % (20-50); METAMYELOCYTE 1 % (0-0); MONOCYTE 6 % (0-10); MYELOCYTE 3 % (0-0); NEUTROPHIL 79 % (42-75); PLATELET ESTIMATE NORMAL (NORMAL); TOTAL CELLS COUNTED 100
[2018-06-10 11:48] LABS: HYPOCHROMIC SLIGHT; OVALOCYTES SLIGHT
[2018-06-10 11:49] LABS: GIANT PLATELETS PRESENT; LARGE PLATELETS PRESENT
--- NOTE | 2018-06-10 11:49 | CP.PCM.PN ---
Subjective - Date & Time of Evaluation Date of Evaluation: 06/10/18 Time of Evaluation: 11:48 - Subjective Subjective: dialysis note patient is conscious and alert not in acute distress he was seen on hemodialysis now Patient is tolerating treatment very well. Bladder irrigation is still tinged bloody. Vital signs stable Objective - Vital Signs/Intake and Output Vital Signs (last 24 hours): Temp Pulse Resp BP Pulse Ox 98.1 F 92 H 18 124/78 98 06/10/18 08:18 06/10/18 08:18 06/10/18 08:18 06/10/18 08:18 06/10/18 08:18 - Medications Medications: Current Medications Acetaminophen (Tylenol 325mg Tab) 650 mg PO Q4 PRN PRN Reason: Fever >100.4 F Last Admin: 06/09/18 19:59 Dose: 650 mg Acetaminophen (Tylenol 325mg Tab) 650 mg PO Q4 PRN PRN Reason: Pain, Mild (1-3) Last Admin: 06/07/18 23:23 Dose: 650 mg Bacitracin (Bacitracin Oint) 1 applic TP DAILY [facility] Last Admin: 06/10/18 09:07 Dose: 1 applic Calcium Acetate (Phoslo) 667 mg PO TID [facility] Last Admin: 06/10/18 09:07 Dose: 667 mg Epoetin Charles (Procrit) 10,000 unit SC TTS [facility] Last Admin: 06/09/18 16:31 Dose: 10,000 unit Finasteride (Proscar) 5 mg PO DAILY [facility] Last Admin: 06/10/18 09:07 Dose: 5 mg Fluticasone Propionate (Flonase) 1 spr VALERIA DAILY PRN PRN Reason: Nasal congestion Metoprolol Succinate (Toprol Xl) 50 mg PO Q12 [facility] Last Admin: 06/10/18 09:08 Dose: Not Given Pantoprazole Sodium (Protonix Ec Tab) 40 mg PO DAILY [facility] Last Admin: 06/10/18 09:08 Dose: 40 mg Tamsulosin HCl (Flomax) 0.4 mg PO DAILY [facility] Last Admin: 06/10/18 09:07 Dose: 0.4 mg Vitamin B Complex/Vit C/Folic Acid (Nephro-Jj) 1 tab PO DAILY [facility] Last Admin: 06/10/18 09:07 Dose: 1 tab - Labs Labs: 06/10/18 10:05 06/05/18 06:57 PT 13.8 Seconds (9.8-13.1) H 05/25/18 16:15 INR 1.2 05/25/18 16:15 APTT 25.8 Seconds (25.6-37.1) 05/25/18 16:15 - Constitutional Appears: No Acute Distress - Eye Exam Eye Exam: Conjunctival injection - ENT Exam ENT Exam: Mucous Membranes Moist - Neck Exam Neck Exam: absent: Lymphadenopathy - Respiratory Exam Respiratory Exam: absent: Chest Wall Tenderness, NORMAL BREATHING PATTERN - Cardiovascular Exam Cardiovascular Exam: REGULAR RHYTHM, RRR. 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) gross hematuria persisted severe anemia prostatic CA coagulopathy the plan he was seen on hemodialysis patient is tolerating well vital signs stable. I discussed the dialysis order with the dialysis nurse at the bedside Last hemoglobin 8.6 BMP is still pending transfusion of cryoprecipitate and blood as needed as per hematology cut down on hemodialysis to twice a week patient receiving bladder irrigation status post cystoscopy Status: Chronic
[2018-06-10 12:38] LABS: CALCIUM 8.5 mg/dL (8.4-10.2)
--- NOTE | 2018-06-10 12:47 | CP.PCM.PN ---
Subjective - Date & Time of Evaluation Date of Evaluation: 06/08/18 Time of Evaluation: 21:00 - Subjective Subjective: Appears comfortable, still note blood in hadley bag Objective - Vital Signs/Intake and Output Vital Signs (last 24 hours): Temp Pulse Resp BP Pulse Ox 97.7 F 102 H 18 126/74 96 06/10/18 12:21 06/10/18 12:21 06/10/18 12:21 06/10/18 12:21 06/10/18 12:21 - Medications Medications: Current Medications Acetaminophen (Tylenol 325mg Tab) 650 mg PO Q4 PRN PRN Reason: Fever >100.4 F Last Admin: 06/09/18 19:59 Dose: 650 mg Acetaminophen (Tylenol 325mg Tab) 650 mg PO Q4 PRN PRN Reason: Pain, Mild (1-3) Last Admin: 06/07/18 23:23 Dose: 650 mg Bacitracin (Bacitracin Oint) 1 applic TP DAILY [facility] Last Admin: 06/10/18 09:07 Dose: 1 applic Calcium Acetate (Phoslo) 667 mg PO TID [facility] Last Admin: 06/10/18 12:13 Dose: 667 mg Epoetin Charles (Procrit) 10,000 unit SC TTS [facility] Last Admin: 06/09/18 16:31 Dose: 10,000 unit Finasteride (Proscar) 5 mg PO DAILY [facility] Last Admin: 06/10/18 09:07 Dose: 5 mg Fluticasone Propionate (Flonase) 1 spr [place]ERIA DAILY PRN PRN Reason: Nasal congestion Metoprolol Succinate (Toprol Xl) 50 mg PO Q12 [facility] Last Admin: 06/10/18 09:08 Dose: Not Given Pantoprazole Sodium (Protonix Ec Tab) 40 mg PO DAILY [facility] Last Admin: 06/10/18 09:08 Dose: 40 mg Tamsulosin HCl (Flomax) 0.4 mg PO DAILY [facility] Last Admin: 06/10/18 09:07 Dose: 0.4 mg Vitamin B Complex/Vit C/Folic Acid (Nephro-Jj) 1 tab PO DAILY [facility] Last Admin: 06/10/18 09:07 Dose: 1 tab - Labs Labs: 06/10/18 10:05 06/10/18 12:10 PT 13.8 Seconds (9.8-13.1) H 05/25/18 16:15 INR 1.2 05/25/18 16:15 APTT 25.8 Seconds (25.6-37.1) 05/25/18 16:15 - Head Exam Head Exam: ATRAUMATIC - Eye Exam Eye Exam: Normal appearance - ENT Exam ENT Exam: Mucous Membranes Dry - Respiratory Exam Respiratory Exam: NORMAL BREATHING PATTERN - Cardiovascular Exam Cardiovascular Exam: +S1, +S2 - GI/Abdominal Exam GI & Abdominal Exam: Normal Bowel Sounds Assessment and Plan (1) Hematuria Assessment & Plan: hypofibrinogenemia; 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 ? embolize prostate vs. radiation Status: Chronic (2) Anemia Assessment & Plan: hematuria anemia of CKD transfusion support PRN Status: Chronic (3) Prostate cancer Assessment & Plan: outpatient treatment Status: Chronic
--- NOTE | 2018-06-10 12:52 | CP.PCM.PN ---
Subjective - Date & Time of Evaluation Date of Evaluation: 06/09/18 Time of Evaluation: 20:00 - Subjective Subjective: Appears comfortable Objective - Vital Signs/Intake and Output Vital Signs (last 24 hours): Temp Pulse Resp BP Pulse Ox 97.7 F 102 H 18 126/74 96 06/10/18 12:21 06/10/18 12:21 06/10/18 12:21 06/10/18 12:21 06/10/18 12:21 - Medications Medications: Current Medications Acetaminophen (Tylenol 325mg Tab) 650 mg PO Q4 PRN PRN Reason: Fever >100.4 F Last Admin: 06/09/18 19:59 Dose: 650 mg Acetaminophen (Tylenol 325mg Tab) 650 mg PO Q4 PRN PRN Reason: Pain, Mild (1-3) Last Admin: 06/07/18 23:23 Dose: 650 mg Bacitracin (Bacitracin Oint) 1 applic TP DAILY [facility] Last Admin: 06/10/18 09:07 Dose: 1 applic Calcium Acetate (Phoslo) 667 mg PO TID [facility] Last Admin: 06/10/18 12:13 Dose: 667 mg Epoetin Charles (Procrit) 10,000 unit SC TTS [facility] Last Admin: 06/09/18 16:31 Dose: 10,000 unit Finasteride (Proscar) 5 mg PO DAILY [facility] Last Admin: 06/10/18 09:07 Dose: 5 mg Fluticasone Propionate (Flonase) 1 spr VALERIA DAILY PRN PRN Reason: Nasal congestion Metoprolol Succinate (Toprol Xl) 50 mg PO Q12 [facility] Last Admin: 06/10/18 09:08 Dose: Not Given Pantoprazole Sodium (Protonix Ec Tab) 40 mg PO DAILY [facility] Last Admin: 06/10/18 09:08 Dose: 40 mg Tamsulosin HCl (Flomax) 0.4 mg PO DAILY [facility] Last Admin: 06/10/18 09:07 Dose: 0.4 mg Vitamin B Complex/Vit C/Folic Acid (Nephro-Jj) 1 tab PO DAILY [facility] Last Admin: 06/10/18 09:07 Dose: 1 tab - Labs Labs: 06/10/18 10:05 06/10/18 12:10 PT 13.8 Seconds (9.8-13.1) H 09/26/18 16:15 INR 1.2 05/25/18 16:15 APTT 25.8 Seconds (25.6-37.1) 05/25/18 16:15 - Head Exam Head Exam: ATRAUMATIC - Eye Exam Eye Exam: Normal appearance - ENT Exam ENT Exam: Mucous Membranes Dry - Respiratory Exam Respiratory Exam: NORMAL BREATHING PATTERN - Cardiovascular Exam Cardiovascular Exam: +S1, +S2 - GI/Abdominal Exam GI & Abdominal Exam: Normal Bowel Sounds Assessment and Plan (1) Hematuria Assessment & Plan: hypofibrinogenemia; 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 ? embolize prostate vs. radiation Status: Chronic (2) Anemia Assessment & Plan: hematuria anemia of CKD transfusion support PRN Status: Chronic (3) Prostate cancer Assessment & Plan: outpatient treatment Status: Chronic
--- NOTE | 2018-06-10 12:53 | CP.PCM.PN ---
Subjective - Date & Time of Evaluation Date of Evaluation: 06/10/18 Time of Evaluation: 12:00 - Subjective Subjective: Appears comfortable, blood tinged urine Objective - Vital Signs/Intake and Output Vital Signs (last 24 hours): Temp Pulse Resp BP Pulse Ox 97.7 F 102 H 18 126/74 96 06/10/18 12:21 06/10/18 12:21 06/10/18 12:21 06/10/18 12:21 06/10/18 12:21 - Medications Medications: Current Medications Acetaminophen (Tylenol 325mg Tab) 650 mg PO Q4 PRN PRN Reason: Fever >100.4 F Last Admin: 06/09/18 19:59 Dose: 650 mg Acetaminophen (Tylenol 325mg Tab) 650 mg PO Q4 PRN PRN Reason: Pain, Mild (1-3) Last Admin: 06/07/18 23:23 Dose: 650 mg Bacitracin (Bacitracin Oint) 1 applic TP DAILY [facility] Last Admin: 06/10/18 09:07 Dose: 1 applic Calcium Acetate (Phoslo) 667 mg PO TID [facility] Last Admin: 06/10/18 12:13 Dose: 667 mg Epoetin Charles (Procrit) 10,000 unit SC TTS [facility] Last Admin: 06/09/18 16:31 Dose: 10,000 unit Finasteride (Proscar) 5 mg PO DAILY [facility] Last Admin: 06/10/18 09:07 Dose: 5 mg Fluticasone Propionate (Flonase) 1 spr VALERIA DAILY PRN PRN Reason: Nasal congestion Metoprolol Succinate (Toprol Xl) 50 mg PO Q12 [facility] Last Admin: 06/10/18 09:08 Dose: Not Given Pantoprazole Sodium (Protonix Ec Tab) 40 mg PO DAILY [facility] Last Admin: 06/10/18 09:08 Dose: 40 mg Tamsulosin HCl (Flomax) 0.4 mg PO DAILY [facility] Last Admin: 06/10/18 09:07 Dose: 0.4 mg Vitamin B Complex/Vit C/Folic Acid (Nephro-Jj) 1 tab PO DAILY [facility] Last Admin: 06/10/18 09:07 Dose: 1 tab - Labs Labs: 06/10/18 10:05 06/10/18 12:10 PT 13.8 Seconds (9.8-13.1) H 05/25/18 16:15 INR 1.2 05/25/18 16:15 APTT 25.8 Seconds (25.6-37.1) 05/25/18 16:15 - Head Exam Head Exam: ATRAUMATIC - Eye Exam Eye Exam: Normal appearance - ENT Exam ENT Exam: Mucous Membranes Dry - Respiratory Exam Respiratory Exam: NORMAL BREATHING PATTERN - Cardiovascular Exam Cardiovascular Exam: +S1, +S2 - GI/Abdominal Exam GI & Abdominal Exam: Normal Bowel Sounds Assessment and Plan (1) Hematuria Assessment & Plan: hypofibrinogenemia; 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 ? embolize prostate vs. radiation Status: Chronic (2) Anemia Assessment & Plan: hematuria anemia of CKD transfusion support PRN Status: Chronic (3) Prostate cancer Assessment & Plan: outpatient treatment Status: Chronic
[2018-06-10] MEDS ORDERED: Alum-Mag Hydrox-Simethicone Susp (30 mL) PO ONE (22:09)
[2018-06-11] MEDS: Multivitamin Vitamin B Complex (Nephro-Vite) Tab PO SCH (09:25)
[2018-06-11] MEDS: Bacitracin OINT 15GM TP SCH (09:26)
[2018-06-11] MEDS: Metoprolol Succinate 50 mg XL Tab PO SCH ×2 (09:26→20:41)
[2018-06-11] MEDS: EPOETIN ALFA 10,000 UNIT/ML ML SC SCH (09:26)
[2018-06-11] MEDS: Pantoprazole 40 mg EC Tab PO SCH (09:26)
--- NOTE | 2018-06-11 13:50 | PN ---
DATE: 06/11/2018 SUBJECTIVE: The patient seen and examined. Interim events noted. Consults noted and appreciated. The patient remains in progressive care unit, on telemetry monitoring. Nephrology and Hematology followup and interventions noted and appreciated. The patient is sleeping, arousable. Denies any chest pain, shortness of breath, or any urinary symptom . PHYSICAL EXAMINATION: HEART: S1, S2, normal, regular. LUNGS: Good bilateral air exchange. ABDOMEN: Soft , nontender. EXTREMITIES: No edema. No calf swelling. No tenderness. No acute ischemia. 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 The patient still has blood-tinged urine. DIAGNOSTIC DATA: Available diagnostic data reviewed. Telemetry monitoring does not show significant arrhythmia. Hemoglobin is 8.6 and stable. ASSESSMENT AND PLAN: Overall, the patient is hemodynamically stable, but still seems to have some blood in the urine. Plan . Hans Tineo MD
--- NOTE | 2018-06-11 21:59 | CP.PCM.PN ---
Subjective - Date & Time of Evaluation Date of Evaluation: 06/11/18 Time of Evaluation: 16:00 - Subjective Subjective: Appears comfortable, on CBI Objective - Vital Signs/Intake and Output Vital Signs (last 24 hours): Temp Pulse Resp BP Pulse Ox 99.3 F 117 H 20 101/60 96 06/11/18 21:04 06/11/18 21:04 06/11/18 21:04 06/11/18 21:04 06/11/18 21:04 Intake and Output: 06/11/18 06/12/18 18:59 06:59 Output Total 3000 Balance -3000 - Medications Medications: Current Medications Acetaminophen (Tylenol 325mg Tab) 650 mg PO Q4 PRN PRN Reason: Fever >100.4 F Last Admin: 06/09/18 19:59 Dose: 650 mg Acetaminophen (Tylenol 325mg Tab) 650 mg PO Q4 PRN PRN Reason: Pain, Mild (1-3) Last Admin: 06/07/18 23:23 Dose: 650 mg Bacitracin (Bacitracin Oint) 1 applic TP DAILY [facility] Last Admin: 06/11/18 09:26 Dose: 1 applic Calcium Acetate (Phoslo) 667 mg PO TID [facility] Last Admin: 06/11/18 13:05 Dose: Not Given Epoetin Charles (Procrit) 10,000 unit SC TTS [facility] Last Admin: 06/11/18 09:26 Dose: 10,000 unit Finasteride (Proscar) 5 mg PO DAILY [facility] Last Admin: 06/11/18 09:26 Dose: 5 mg Fluticasone Propionate (Flonase) 1 spr [place] DAILY PRN PRN Reason: Nasal congestion Metoprolol Succinate (Toprol Xl) 50 mg PO Q12 [facility] Last Admin: 06/11/18 20:41 Dose: 50 mg Pantoprazole Sodium (Protonix Ec Tab) 40 mg PO DAILY [facility] Last Admin: 06/11/18 09:26 Dose: 40 mg Tamsulosin HCl (Flomax) 0.4 mg PO DAILY [facility] Last Admin: 06/11/18 09:25 Dose: 0.4 mg Vitamin B Complex/Vit C/Folic Acid (Nephro-Jj) 1 tab PO DAILY [facility] Last Admin: 06/11/18 09:25 Dose: 1 tab - Labs Labs: 06/10/18 10:05 06/10/18 12:10 PT 13.8 Seconds (9.8-13.1) H 05/25/18 16:15 INR 1.2 05/25/18 16:15 APTT 25.8 Seconds (25.6-37.1) 05/25/18 16:15 - Head Exam Head Exam: ATRAUMATIC - Eye Exam Eye Exam: Normal appearance - ENT Exam ENT Exam: Mucous Membranes Dry - Respiratory Exam Respiratory Exam: NORMAL BREATHING PATTERN - Cardiovascular Exam Cardiovascular Exam: +S1, +S2 - GI/Abdominal Exam GI & Abdominal Exam: Normal Bowel Sounds Assessment and Plan (1) Hematuria Assessment & Plan: hypofibrinogenemia; 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 ? embolize prostate vs. radiation Status: Chronic (2) Anemia Assessment & Plan: hematuria anemia of CKD transfusion support PRN Status: Chronic (3) Prostate cancer Assessment & Plan: outpatient treatment Status: Chronic
[2018-06-12 07:09] LABS: MEAN CELL VOLUME 93.1 fl (80.0-94.0); MEAN CORPUSCULAR HEMOGLOBIN 30.2 pg (27.0-31.0); MEAN CORPUSCULAR HGB CONC 32.5 g/dL (33.0-37.0); RBC 2.97 Mil/uL (4.40-5.90); RED CELL DISTRIBUTION WIDTH 17.2 % (11.5-14.5); WHITE BLOOD COUNT 24.2 K/uL (4.8-10.8)
[2018-06-12 07:41] LABS: ALB/GLOB RATIO 0.8 (1.0-2.1); ALBUMIN 2.5 g/dL (3.5-5.0); CALCIUM 8.6 mg/dL (8.4-10.2)
[2018-06-12] MEDS: Pantoprazole 40 mg EC Tab PO SCH (09:58)
[2018-06-12] MEDS: Bacitracin OINT 15GM TP SCH (09:58)
[2018-06-12] MEDS: Metoprolol Succinate 50 mg XL Tab PO SCH ×2 (09:59→20:18)
[2018-06-12] MEDS: Multivitamin Vitamin B Complex (Nephro-Vite) Tab PO SCH (09:59)
--- NOTE | 2018-06-12 11:53 | PN ---
DATE: 06/12/2018 SUBJECTIVE: The patient seen and examined. Interim events noted. The patient remains in progressive care unit, on telemetry monitoring with catheter. Denies specific complaint. No chest pain, shortness of breath, abdominal pain or any urinary symptoms other than discomfort from the catheter. PHYSICAL EXAMINATION: GENERAL: The patient is in no acute distress. VITAL SIGNS: Stable. HEART: S1 and S2, normal and regular. LUNGS: Good bilateral air exchange. ABDOMEN: Soft and nontender. EXTREMITIES: No edema. No calf swelling. No tenderness. No acute ischemia. 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 catheter still shows little dark pinkish urine. DIAGNOSTIC DATA: Available diagnostic data reviewed. Telemetry monitoring does not reveal significant arrhythmias. ASSESSMENT AND PLAN: Plan as ordered. Hans Tineo MD
--- NOTE | 2018-06-12 23:50 | CON ---
DATE: 06/12/2018 CARDIOLOGY CONSULTATION REASON FOR CONSULTATION: Atrial fibrillation. 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 The patient at that time was found to have atrial fibrillation. The patient was also diagnosed with prostatic cancer, and he has been experiencing hematuria. He was admitted from the residential on 04/26/2018 because of gross hematuria. The patient denies any chest pain. The patient complains of weakness and shortness of breath. 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 SOCIAL HISTORY: The patient is nonsmoker, nondrinker. He lives by himself. He has children, but no . MEDICATIONS: Flomax 0.4 mg daily, Flonase one spray daily, Nephro-Jj one tablet daily, PhosLo one tablet t.i.d., Proscar 5 mg once a day, Protonix 40 mg p.o. once a day, Toprol-XL 50 mg twice a day. REVIEW OF SYSTEMS: The patient has low-grade fever. He denies any vomiting at this time. PHYSICAL EXAMINATION: GENERAL: The patient is an elderly male who does not appear to be in acute distress. VITAL SIGNS: Blood pressure 102/59, heart rate 101, temperature 98, respirations 18. HEENT: Pale conjunctivae. CHEST: Diminished breath sounds at the bases. HEART: S1 and S2 are irregular. ABDOMEN: Soft. EXTREMITIES: Trace leg edema. LABORATORY DATA: Today's hemoglobin and hematocrit 9 and 27.6, white count 24.4, platelet count 389,000. SMA-7: Sodium 135, potassium 5.4, chloride 100, CO2 of 32, glucose 114, BUN 30, creatinine 3.2. INR is 1.2 on 05/25/2018. Hepatitis profile is negative except for hepatitis B surface antibody, which was indeterminate. EKG revealed atrial fibrillation at the heart rate of 98 with low-voltage QRS complex that was done on admission, 04/26/2018. Upper and lower extremity venous Doppler negative for DVT. Chest x-ray on admission revealed prominent bronchovascular markings, otherwise unremarkable. Echocardiographic study performed on 03/22/2018 revealed normal left ventricular size with [id number] LVH and normal ejection fraction. The patient was noted to have septal hypokinesis, mild pulmonic valvular regurgitation, and [id number] aortic root. ASSESSMENT: 1. Peaked T-wave noted on the surveillance monitor. 2. Mild hyperkalemia. 3. Chronic atrial fibrillation. 4. Shad granulomatosis with polyangiitis. 5. Anemia. 6. Prostatic cancer. RECOMMENDATIONS: Continue current PhosLo one tablet t.i.d., Toprol-XL 50 mg twice a day, Nephro-Jj one tablet once a day. Antiplatelets or anticoagulation are of course absolutely contraindicated. I will obtain 12-lead EKG. The patient will undergo hemodialysis tomorrow. Kali Moran MD
[2018-06-13] MEDS ORDERED: Sodium Chloride 3% for Inhalation 4 ML VIAL.NEB IH PRN (05:47)
[2018-06-13 07:39] LABS: HEMOGLOBIN 8.5 g/dL (12.0-18.0); MEAN CORPUSCULAR HEMOGLOBIN 29.7 pg (27.0-31.0); RBC 2.84 Mil/uL (4.40-5.90); RED CELL DISTRIBUTION WIDTH 17.2 % (11.5-14.5); WHITE BLOOD COUNT 16.8 K/uL (4.8-10.8)
[2018-06-13 08:06] LABS: ALB/GLOB RATIO 0.8 (1.0-2.1); ALBUMIN 2.4 g/dL (3.5-5.0); CALCIUM 8.5 mg/dL (8.4-10.2)
[2018-06-13] MEDS: Bacitracin OINT 15GM TP SCH (09:42)
[2018-06-13] MEDS: Metoprolol Succinate 50 mg XL Tab PO SCH ×3 (09:42→21:36)
[2018-06-13] MEDS: Multivitamin Vitamin B Complex (Nephro-Vite) Tab PO SCH (09:42)
[2018-06-13] MEDS: cefTRIAXone 2 GM in Sodium Chloride 0.9% 100 ML IVPB SCH (09:43)
[2018-06-13] MEDS: Pantoprazole 40 mg EC Tab PO SCH (09:43)
--- NOTE | 2018-06-13 10:25 | CP.PCM.PN ---
Subjective - Date & Time of Evaluation Date of Evaluation: 06/13/18 Time of Evaluation: 10:28 - Subjective Subjective: patient awake and conscious vital signs stable not in acute distress Objective - Vital Signs/Intake and Output Vital Signs (last 24 hours): Temp Pulse Resp BP Pulse Ox 98 F 135 H 18 133/73 98 06/13/18 08:14 06/13/18 09:42 06/13/18 08:14 06/13/18 09:42 06/13/18 08:14 Intake and Output: 06/13/18 06/13/18 06:59 18:59 Intake Total 120 Output Total 520 Balance -400 - Medications Medications: Current Medications Acetaminophen (Tylenol 325mg Tab) 650 mg PO Q4 PRN PRN Reason: Fever >100.4 F Last Admin: 06/09/18 19:59 Dose: 650 mg Acetaminophen (Tylenol 325mg Tab) 650 mg PO Q4 PRN PRN Reason: Pain, Mild (1-3) Last Admin: 06/12/18 09:58 Dose: 650 mg Bacitracin (Bacitracin Oint) 1 applic TP DAILY [facility] Last Admin: 06/13/18 09:42 Dose: 1 applic Calcium Acetate (Phoslo) 667 mg PO TID [facility] Last Admin: 06/13/18 09:42 Dose: 667 mg Epoetin Charles (Procrit) 10,000 unit SC TTS [facility] Last Admin: 06/11/18 09:26 Dose: 10,000 unit Finasteride (Proscar) 5 mg PO DAILY [facility] Last Admin: 06/13/18 09:42 Dose: 5 mg Fluticasone Propionate (Flonase) 1 spr [place] DAILY PRN PRN Reason: Nasal congestion Ceftriaxone Sodium 2 gm/ (Sodium Chloride) 100 mls @ 100 mls/hr IVPB DAILY [facility]; Protocol Last Admin: 06/13/18 09:43 Dose: 100 mls/hr Vancomycin HCl 1 gm/ Sodium (Chloride) 250 mls @ 166.667 mls/hr IVPB ONCE ONE; Protocol Stop: 06/14/18 11:27 Metoprolol Succinate (Toprol Xl) 50 mg PO Q12 [facility] Last Admin: 06/13/18 09:42 Dose: 50 mg Pantoprazole Sodium (Protonix Ec Tab) 40 mg PO DAILY [facility] Last Admin: 10/15/18 09:43 Dose: 40 mg Tamsulosin HCl (Flomax) 0.4 mg PO DAILY [facility] Last Admin: 06/13/18 09:43 Dose: 0.4 mg Vitamin B Complex/Vit C/Folic Acid (Nephro-Jj) 1 tab PO DAILY [facility] Last Admin: 06/13/18 09:42 Dose: 1 tab - Labs Labs: 06/13/18 07:15 06/13/18 07:15 PT 13.8 Seconds (9.8-13.1) H 05/25/18 16:15 INR 1.2 05/25/18 16:15 APTT 25.8 Seconds (25.6-37.1) 05/25/18 16:15 - Constitutional Appears: No Acute Distress - Eye Exam Eye Exam: Conjunctival injection - ENT Exam ENT Exam: Mucous Membranes Moist - Respiratory Exam Respiratory Exam: NORMAL BREATHING PATTERN. absent: Chest Wall Tenderness - Cardiovascular Exam Cardiovascular Exam: REGULAR RHYTHM. 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) gross hematuria severe anemia prostatic CA coagulopathy with hypofibrinogenemia leukocytosis started this weekend patient started on antibiotics vancomycin was added one does waiting for the culture. the plan transfusion of cryoprecipitate and blood as needed as per hematology cut down on hemodialysis to twice a week Patient is still oozing from the urine status post cystoscopy with continuous bladder irrigation *24 hours urine for creatinine clearance and protein showed protein 2.6 gram and creatinine clearance 15 mL per minute Also for history when the patient was diagnosed with the above diagnosis he has a following treatment Pulses steroid for 3 days Rituximab 1 g twice 4 weeks apart Oral steroid Plasma phoresis And the patient continued to need dialysis s/p Amicar drip s/p cryopercipitate transfusion; goal fibrinogen > 200 - has been stable after transfusion s/p ddavp s/p vit k Status: Chronic
--- NOTE | 2018-06-13 14:03 | RAD ---
Date of service: 06/13/2018 HISTORY: leukocytosis COMPARISON: 04/25/2018 TECHNIQUE: Chest PA and lateral FINDINGS: LUNGS: Stable multifocal infiltrates PLEURA: No significant pleural effusion identified. No pneumothorax apparent. CARDIOVASCULAR: Normal size heart. Venous access catheter in stable, satisfactory position. OSSEOUS STRUCTURES: No significant abnormalities. VISUALIZED UPPER ABDOMEN: Normal. OTHER FINDINGS: None. IMPRESSION: Pulmonary parenchymal findings likely fluid overload/vascular congestion. No new/acute findings.
--- NOTE | 2018-06-13 15:04 | CARD ---
APPROVED REPORT Date of service: 06/12/2018 EKG Measurement Heart [id number] <Conclusion> Atrial fibrillation with rapid ventricular response Abnormal ECG
--- NOTE | 2018-06-13 19:53 | PN ---
DATE: 06/13/2018 SUBJECTIVE: The patient denies chest pain. He refused to have his lunch today. An EKG was done yesterday when the patient was noted to have tall peaked T-waves on the monitor and EKG was done revealed atrial fibrillation at a heart rate of 118 with no evidence peaked T-wave. PHYSICAL EXAMINATION: VITAL SIGNS: Blood pressure 141/87, heart rate 115, temperature 98.5, respirations 20. HEENT: Pale conjunctivae. CHEST: Diminished breath sounds over the bases. HEART: S1 and S2 regular. ABDOMEN: Soft. EXTREMITIES: No edema. LABORATORY DATA: Hemoglobin and hematocrit 8.5 and 26.4, white count 16.8, platelet count 393,000. Today's BUN and creatinine are 38 and 3.9 respectively, rest of SMA-7 is within normal limits. ASSESSMENT: 1. Shad's granulomatosis, polyangiitis. 2. End stage renal disease on hemodialysis. 3. Hematuria. 4. Prostatic cancer. RECOMMENDATIONS: Continue IV Rocephin at 2 gm daily, PhosLo 1 tablet t.i.d., Toprol XL 50 mg once a day, Protonix 40 mg once a day, vancomycin 1 gm intravenously given a single dose today. The plan is to transfer the patient to [facility] for embolization therapy for his persistent hematuria. Kali Moran MD
--- NOTE | 2018-06-13 22:26 | CP.PCM.PN ---
Subjective - Date & Time of Evaluation Date of Evaluation: 06/13/18 Time of Evaluation: 15:00 - Subjective Subjective: Appears comfortable, still has hematuria Objective - Vital Signs/Intake and Output Vital Signs (last 24 hours): Temp Pulse Resp BP Pulse Ox 99.4 F 108 H 20 151/79 H 99 06/13/18 19:25 06/13/18 21:36 06/13/18 19:25 06/13/18 21:36 06/13/18 19:25 Intake and Output: 06/13/18 06/14/18 18:59 06:59 Intake Total 1150 Output Total 500 Balance 650 - Medications Medications: Current Medications Acetaminophen (Tylenol 325mg Tab) 650 mg PO Q4 PRN PRN Reason: Fever >100.4 F Last Admin: 06/09/18 19:59 Dose: 650 mg Acetaminophen (Tylenol 325mg Tab) 650 mg PO Q4 PRN PRN Reason: Pain, Mild (1-3) Last Admin: 06/12/18 09:58 Dose: 650 mg Bacitracin (Bacitracin Oint) 1 applic TP DAILY [facility] Last Admin: 06/13/18 09:42 Dose: 1 applic Calcium Acetate (Phoslo) 667 mg PO TID [facility] Last Admin: 06/13/18 16:34 Dose: 667 mg Epoetin Charles (Procrit) 10,000 unit SC TTS [facility] Last Admin: 06/11/18 09:26 Dose: 10,000 unit Finasteride (Proscar) 5 mg PO DAILY [facility] Last Admin: 06/13/18 09:42 Dose: 5 mg Fluticasone Propionate (Flonase) 1 spr [facility] DAILY PRN PRN Reason: Nasal congestion Ceftriaxone Sodium 2 gm/ (Sodium Chloride) 100 mls @ 100 mls/hr IVPB DAILY [facility]; Protocol Last Admin: 06/13/18 09:43 Dose: 100 mls/hr Metoprolol Succinate (Toprol Xl) 50 mg PO Q12 [facility] Last Admin: 06/13/18 21:36 Dose: 50 mg Pantoprazole Sodium (Protonix Ec Tab) 40 mg PO DAILY [facility] Last Admin: 06/13/18 09:43 Dose: 40 mg Tamsulosin HCl (Flomax) 0.4 mg PO DAILY [facility] Last Admin: 06/13/18 09:43 Dose: 0.4 mg Vitamin B Complex/Vit C/Folic Acid (Nephro-Jj) 1 tab PO DAILY [facility] Last Admin: 06/13/18 09:42 Dose: 1 tab - Labs Labs: 06/13/18 07:15 06/13/18 07:15 PT 13.8 Seconds (9.8-13.1) H 05/25/18 16:15 INR 1.2 05/25/18 16:15 APTT 25.8 Seconds (25.6-37.1) 05/25/18 16:15 - Head Exam Head Exam: ATRAUMATIC - Eye Exam Eye Exam: Normal appearance - ENT Exam ENT Exam: Mucous Membranes Dry - Respiratory Exam Respiratory Exam: NORMAL BREATHING PATTERN - Cardiovascular Exam Cardiovascular Exam: +S1, +S2 - GI/Abdominal Exam GI & Abdominal Exam: Normal Bowel Sounds Assessment and Plan (1) Hematuria Assessment & Plan: hypofibrinogenemia; 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 ? embolize prostate vs. radiation Status: Chronic (2) Anemia Assessment & Plan: hematuria anemia of CKD transfusion support PRN Status: Chronic (3) Prostate cancer Assessment & Plan: outpatient treatment Status: Chronic
--- NOTE | 2018-06-14 08:48 | CP.PCM.PCO ---
Assessment/Plan - Assessment and Plan (Free Text) Assessment: Patient seen and examined remains with hematuria vital signs stable. Denies chest pain shortness of breath nausea or vomiting For HD today. Discussed plan with Dr Jeffries and Dr Tineo yesterday, plan to transfer tertiary center for Prostate Artery embolization. Call out to [place], discussed with Dr Monzon and Dr Birch IR physician, waiting for a telemetry bed at this time at [place] for transfer.
[2018-06-14] MEDS: Bacitracin OINT 15GM TP SCH (09:00)
[2018-06-14] MEDS: Pantoprazole 40 mg EC Tab PO SCH (09:02)
[2018-06-14] MEDS: Metoprolol Succinate 50 mg XL Tab PO SCH ×2 (09:02→21:23)
[2018-06-14] MEDS: Multivitamin Vitamin B Complex (Nephro-Vite) Tab PO SCH (09:02)
[2018-06-14] MEDS: EPOETIN ALFA 10,000 UNIT/ML ML SC SCH (09:22)
--- NOTE | 2018-06-14 11:06 | CP.PCM.PN ---
Subjective - Date & Time of Evaluation Date of Evaluation: 06/14/18 Time of Evaluation: 11:06 - Subjective Subjective: dialysis note he was seen on hemodialysis. Patient awake and conscious. Vital signs stable. I discussed the order with the dialysis nurse at the bedside. Objective - Vital Signs/Intake and Output Vital Signs (last 24 hours): Temp Pulse Resp BP Pulse Ox 98.2 F 130 H 18 163/89 H 98 06/14/18 08:06 06/14/18 09:02 06/14/18 08:06 06/14/18 09:02 06/14/18 08:06 - Medications Medications: Current Medications Acetaminophen (Tylenol 325mg Tab) 650 mg PO Q4 PRN PRN Reason: Fever >100.4 F Last Admin: 06/09/18 19:59 Dose: 650 mg Acetaminophen (Tylenol 325mg Tab) 650 mg PO Q4 PRN PRN Reason: Pain, Mild (1-3) Last Admin: 06/14/18 05:31 Dose: 650 mg Bacitracin (Bacitracin Oint) 1 applic TP DAILY [facility] Last Admin: 06/14/18 09:00 Dose: 1 applic Calcium Acetate (Phoslo) 667 mg PO TID [facility] Last Admin: 06/14/18 09:03 Dose: 667 mg Epoetin Charles (Procrit) 10,000 unit SC TTS [facility] Last Admin: 06/14/18 09:22 Dose: 10,000 unit Finasteride (Proscar) 5 mg PO DAILY [facility] Last Admin: 06/14/18 09:02 Dose: 5 mg Fluticasone Propionate (Flonase) 1 spr [facility] DAILY PRN PRN Reason: Nasal congestion Ceftriaxone Sodium 2 gm/ (Sodium Chloride) 100 mls @ 100 mls/hr IVPB DAILY [facility]; Protocol Last Admin: 06/13/18 09:43 Dose: 100 mls/hr Metoprolol Succinate (Toprol Xl) 50 mg PO Q12 [facility] Last Admin: 06/14/18 09:02 Dose: 50 mg Pantoprazole Sodium (Protonix Ec Tab) 40 mg PO DAILY [facility] Last Admin: 06/14/18 09:02 Dose: 40 mg Tamsulosin HCl (Flomax) 0.4 mg PO DAILY [facility] Last Admin: 06/14/18 09:01 Dose: 0.4 mg Vitamin B Complex/Vit C/Folic Acid (Nephro-Jj) 1 tab PO DAILY [facility] Last Admin: 06/14/18 09:02 Dose: 1 tab - Labs Labs: 06/13/18 07:15 06/13/18 07:15 PT 13.8 Seconds (9.8-13.1) H 05/25/18 16:15 INR 1.2 05/25/18 16:15 APTT 25.8 Seconds (25.6-37.1) 05/25/18 16:15 - Constitutional Appears: No Acute Distress - Eye Exam Eye Exam: Conjunctival injection - ENT Exam ENT Exam: Mucous Membranes Moist - Neck Exam Neck Exam: absent: Lymphadenopathy - Respiratory Exam Respiratory Exam: NORMAL BREATHING PATTERN. absent: Chest Wall Tenderness - Cardiovascular Exam Cardiovascular Exam: absent: Gallop, REGULAR RHYTHM, Rubs - GI/Abdominal Exam GI & Abdominal Exam: Soft, Normal Bowel Sounds - Extremities Exam Extremities Exam: absent: Calf Tenderness - Back Exam Back Exam: absent: CVA tenderness (L), CVA tenderness (R) - Neurological Exam Neurological Exam: Alert - Psychiatric Exam Psychiatric exam: Normal Affect - Skin Skin Exam: absent: Cyanosis Assessment and Plan (1) ESRD (end stage renal disease) on dialysis Assessment & Plan: ESRD pauci-immune necrotizing glomerulonephritis with >50% cellular crescents active inflammation in interstitium NC 3 positive. 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) gross hematuria persisted severe anemia prostatic CA coagulopathy the plan he was seen on hemodialysis patient is tolerating well vital signs stable. I discussed the dialysis order with the dialysis nurse at the bedside sodium bath 138 Potassium bath 2 mEq Bicarbonate bath 34 Ultrafiltration about 1500 mL as tolerated Last hemoglobin 8.5 BMP creatinine 3.9 from yesterday. transfusion of cryoprecipitate and blood as needed as per hematology cut down on hemodialysis to twice a week patient receiving bladder irrigation status post cystoscopy Status: Chronic
--- NOTE | 2018-06-14 11:20 | PN ---
DATE: 06/14/2018 SUBJECTIVE: The patient seen and examined. Interim events noted. Consults noted and appreciated. The patient remains in progressive care unit and telemetry monitoring. Still oozing blood. Bladder irrigation. Denies any chest pain, shortness of breath, or dizziness or any urinary symptoms other than discomfort from catheter. PHYSICAL EXAMINATION: GENERAL: The patient is in no acute distress. VITAL SIGNS: Stable. HEART: S1 and S2, normal and regular. LUNGS: Good bilateral air exchange. ABDOMEN: Soft and nontender. EXTREMITIES: No edema. No calf swelling. No tenderness. No acute ischemia. CENTRAL NERVOUS SYSTEM: Exam is essentially unchanged. Bladder irrigation catheter shows pinkish urine. DIAGNOSTIC DATA: Available diagnostic data reviewed. Hemoglobin is 8.5, dropped from 9. ASSESSMENT AND PLAN: Overall, the patient is hemodynamically stable. The patient is scheduled . Plan as ordered. Case and plan discussed with the patient. Telemetry monitoring does not show significant arrhythmia. Hans Tineo MD
[2018-06-14 12:45] LABS: HEMOGLOBIN 8.3 g/dL (12.0-18.0); MEAN CELL VOLUME 92.6 fl (80.0-94.0); MEAN CORPUSCULAR HEMOGLOBIN 30.7 pg (27.0-31.0); MEAN CORPUSCULAR HGB CONC 33.1 g/dL (33.0-37.0); RBC 2.7 Mil/uL (4.40-5.90); RED CELL DISTRIBUTION WIDTH 16.7 % (11.5-14.5); WHITE BLOOD COUNT 12.7 K/uL (4.8-10.8)
[2018-06-14 13:56] LABS: ALB/GLOB RATIO 0.8 (1.0-2.1); ALBUMIN 2.3 g/dL (3.5-5.0); CALCIUM 8.4 mg/dL (8.4-10.2)
[2018-06-14 14:32] LABS: INR 1.2; PROTHROMBIN TIME 13.5 Seconds (9.8-13.1)
[2018-06-14] MEDS: cefTRIAXone 2 GM in Sodium Chloride 0.9% 100 ML IVPB SCH (16:02)
--- NOTE | 2018-06-14 17:58 | PN ---
DATE: 06/14/2018 SUBJECTIVE: The patient is about to undergo hemodialysis. He denies any chest pain or shortness of breath. He is still experiencing hematuria. PHYSICAL EXAMINATION: VITAL SIGNS: Blood pressure 163/89, heart rate 130, temperature 98.2, respirations 18. HEENT: Pale conjunctivae. CHEST: Diminished breath sounds over the bases. HEART: S1 and S2, regular. ABDOMEN: Soft. EXTREMITIES: No edema. ASSESSMENT: 1. Chronic atrial fibrillation with rapid ventricular response. 2. Shad's granulomatosis, polyangiitis. 3. Prostatic cancer with recurrent hematuria. 4. End-stage renal disease on hemodialysis. 5. Anemia. RECOMMENDATIONS: Continue PhosLo one tablet three times a day, Flomax 0.4 mg daily, Rocephin 2 g intravenously daily, Procrit 10,000 units subcutaneous TTS, Toprol-XL 50 mg every 12 hours. I will start 30 mg four times a day. Kali Moran MD
[2018-06-15] MEDS: cefTRIAXone 2 GM in Sodium Chloride 0.9% 100 ML IVPB SCH (09:33)
[2018-06-15] MEDS: Bacitracin OINT 15GM TP SCH (09:34)
[2018-06-15] MEDS: Metoprolol Succinate 50 mg XL Tab PO SCH ×2 (09:35→21:20)
[2018-06-15] MEDS: Multivitamin Vitamin B Complex (Nephro-Vite) Tab PO SCH (09:36)
[2018-06-15] MEDS: Pantoprazole 40 mg EC Tab PO SCH (09:37)
--- NOTE | 2018-06-15 11:13 | PN ---
DATE: 06/15/2018 SUBJECTIVE: The patient seen and examined. Interim events noted. Consults noted and appreciated. The patient remains in progressive care unit on telemetry monitoring. Denies any specific pain. No specific issue reported by nursing staff. The patient is awaiting bed at [facility]. PHYSICAL EXAMINATION: GENERAL: The patient is in no acute distress. VITAL SIGNS: Stable. HEART EXAM: S1 and S2. Normal and regular. LUNGS: Good bilateral air exchange. ABDOMEN: Soft and nontender. EXTREMITY EXAM: No edema. No calf swelling. No tenderness. No acute ischemia. DRIVER GUIDE EXAM: Essentially unchanged. DIAGNOSTIC DATA: Available diagnostic data reviewed. ASSESSMENT AND PLAN: Overall, the patient's general medical condition is stable. Hemoglobin is 8.3. Telemetry monitoring does not show significant arrhythmias. The patient is awaiting bed at [facility] for possible prostatic artery embolism. The patient still has pinkish urine in the drainage catheter. Plan as ordered. Hans Tineo MD
--- NOTE | 2018-06-15 12:33 | CP.PCM.PN ---
Subjective - Date & Time of Evaluation Date of Evaluation: 06/15/18 Time of Evaluation: 12:32 - Subjective Subjective: patient feeling much better Nausea no vomiting Completed hemodialysis yesterday Objective - Vital Signs/Intake and Output Vital Signs (last 24 hours): Temp Pulse Resp BP Pulse Ox 98.5 F 104 H 18 133/83 98 06/15/18 08:00 06/15/18 09:35 06/15/18 08:00 06/15/18 09:35 06/15/18 08:00 Intake and Output: 06/15/18 06/15/18 06:59 18:59 Intake Total 420 Output Total 600 200 Balance -600 220 - Medications Medications: Current Medications Acetaminophen (Tylenol 325mg Tab) 650 mg PO Q4 PRN PRN Reason: Fever >100.4 F Last Admin: 06/14/18 21:26 Dose: 650 mg Acetaminophen (Tylenol 325mg Tab) 650 mg PO Q4 PRN PRN Reason: Pain, Mild (1-3) Last Admin: 06/14/18 05:31 Dose: 650 mg Bacitracin (Bacitracin Oint) 1 applic TP DAILY [facility] Last Admin: 06/15/18 09:34 Dose: 1 applic Calcium Acetate (Phoslo) 667 mg PO TID [facility] Last Admin: 06/15/18 09:35 Dose: 667 mg Diltiazem HCl (Cardizem) 90 mg PO Q8H [facility] Last Admin: 06/15/18 10:37 Dose: Not Given Epoetin Charles (Procrit) 10,000 unit SC TTS [facility] Last Admin: 06/14/18 09:22 Dose: 10,000 unit Finasteride (Proscar) 5 mg PO DAILY [facility] Last Admin: 06/15/18 09:37 Dose: 5 mg Fluticasone Propionate (Flonase) 1 spr [facility] DAILY PRN PRN Reason: Nasal congestion Ceftriaxone Sodium 2 gm/ (Sodium Chloride) 100 mls @ 100 mls/hr IVPB DAILY [facility]; Protocol Last Admin: 06/15/18 09:33 Dose: 100 mls/hr Metoprolol Succinate (Toprol Xl) 50 mg PO Q12 [facility] Last Admin: 06/15/18 09:35 Dose: 50 mg Pantoprazole Sodium (Protonix Ec Tab) 40 mg PO DAILY [facility] Last Admin: 10/17/18 09:37 Dose: 40 mg Tamsulosin HCl (Flomax) 0.4 mg PO DAILY [facility] Last Admin: 06/15/18 09:35 Dose: 0.4 mg Vitamin B Complex/Vit C/Folic Acid (Nephro-Jj) 1 tab PO DAILY [facility] Last Admin: 06/15/18 09:36 Dose: 1 tab - Labs Labs: 06/14/18 12:32 06/14/18 12:32 PT 13.5 Seconds (9.8-13.1) H 06/14/18 12:35 INR 1.2 06/14/18 12:35 APTT 29.0 Seconds (25.6-37.1) 06/14/18 12:35 - Constitutional Appears: No Acute Distress - ENT Exam ENT Exam: Mucous Membranes Moist - Neck Exam Neck Exam: absent: Lymphadenopathy - Respiratory Exam Respiratory Exam: NORMAL BREATHING PATTERN - GI/Abdominal Exam GI & Abdominal Exam: Soft, Normal Bowel Sounds - Extremities Exam Extremities Exam: absent: Calf Tenderness - Back Exam Back Exam: absent: CVA tenderness (L), CVA tenderness (R) - Neurological Exam Neurological Exam: Alert - Psychiatric Exam Psychiatric exam: Normal Affect - Skin Skin Exam: absent: Cyanosis Assessment and Plan (1) ESRD (end stage renal disease) on dialysis Assessment & Plan: 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) gross hematuria severe anemia prostatic CA coagulopathy with hypofibrinogenemia leukocytosis started this weekend patient started on antibiotics vancomycin was added one does waiting for the culture. the plan transfusion of cryoprecipitate and blood as needed as per hematology cut down on hemodialysis to twice a week Patient is still oozing from the urine status post cystoscopy with continuous bladder irrigation *24 hours urine for creatinine clearance and protein showed protein 2.6 gram and creatinine clearance 15 mL per minute Also for history when the patient was diagnosed with the above diagnosis he has a following treatment Pulses steroid for 3 days Rituximab 1 g twice 4 weeks apart Oral steroid Plasma phoresis And the patient continued to need dialysis s/p Amicar drip s/p cryopercipitate transfusion; goal fibrinogen > 200 - has been stable after transfusion s/p ddavp s/p vit k Status: Chronic
--- NOTE | 2018-06-15 14:40 | PN ---
DATE: 06/15/2018 SUBJECTIVE: The patient's Cardizem was increased to 90 mg every 8 hours yesterday and currently is in atrial fibrillation with controlled ventricular response. PHYSICAL EXAMINATION: VITAL SIGNS: Blood pressure 133/83, heart rate is 104, temperature 98.5, respirations 18. HEENT: Pale conjunctivae. CHEST: Clear. HEART: S1, S2 regular. EXTREMITIES: No edema. ASSESSMENT: 1. Chronic atrial fibrillation. 2. End-stage renal disease, on hemodialysis. 3. Anemia. 4. Shad's granulomatosis, polyangiitis. 5. Prostatic cancer and hematuria. RECOMMENDATIONS: Continue Cardizem at 90 mg every 8 hours, continue IV Rocephin 2 g daily, continue PhosLo 1 tablet three times a day and Toprol-XL 50 mg twice a day. The patient is awaiting transfer to [facility] for embolization therapy. Kali Moran MD
[2018-06-15 14:48] LABS: HEMOGLOBIN 8.5 g/dL (12.0-18.0); MEAN CELL VOLUME 91.9 fl (80.0-94.0); MEAN CORPUSCULAR HEMOGLOBIN 30.4 pg (27.0-31.0); MEAN CORPUSCULAR HGB CONC 33.1 g/dL (33.0-37.0); RBC 2.78 Mil/uL (4.40-5.90); RED CELL DISTRIBUTION WIDTH 16.6 % (11.5-14.5); WHITE BLOOD COUNT 15.5 K/uL (4.8-10.8)
[2018-06-15 15:42] LABS: ALB/GLOB RATIO 0.8 (1.0-2.1); ALBUMIN 2.3 g/dL (3.5-5.0); CALCIUM 8.2 mg/dL (8.4-10.2)
[2018-06-15 23:41] VITALS: RESP 18
[2018-06-16] MEDS: cefTRIAXone 2 GM in Sodium Chloride 0.9% 100 ML IVPB SCH ×2 (08:52→09:04)
[2018-06-16] MEDS: Multivitamin Vitamin B Complex (Nephro-Vite) Tab PO SCH (08:54)
[2018-06-16] MEDS: Metoprolol Succinate 50 mg XL Tab PO SCH (08:55)
[2018-06-16] MEDS: Bacitracin OINT 15GM TP SCH (08:58)
[2018-06-16] MEDS: Pantoprazole 40 mg EC Tab PO SCH (08:58)
[2018-06-16] MEDS: EPOETIN ALFA 10,000 UNIT/ML ML SC SCH (09:06)
--- NOTE | 2018-06-16 09:53 | CP.PCM.PN ---
Addendum entered and electronically signed by Zion Bower MD 06/17/18 15:00: Patient transferred to [place] for Prostate Artery embolization. Vitals signs stable Patient stable at transfer time. Original Note: <Zion Bower - Last Filed: 06/16/18 10:30> Subjective - Date & Time of Evaluation Date of Evaluation: 06/16/18 Time of Evaluation: 09:53 - Subjective Subjective: Patient seen and examined with Dr. Tineo this morning. No acute overnight events. CBI infusion urine looks senior j2ee developer and improving from days before. Denies any complaints today. Waiting for a telemetry bed at this time at [place] for transfer. Objective - Vital Signs/Intake and Output Vital Signs (last 24 hours): Temp Pulse Resp BP Pulse Ox 98.3 F 84 18 127/72 99 06/16/18 08:00 06/16/18 08:55 06/16/18 08:00 06/16/18 08:55 06/16/18 08:00 - Medications Medications: Current Medications Acetaminophen (Tylenol 325mg Tab) 650 mg PO Q4 PRN PRN Reason: Fever >100.4 F Last Admin: 06/14/18 21:26 Dose: 650 mg Acetaminophen (Tylenol 325mg Tab) 650 mg PO Q4 PRN PRN Reason: Pain, Mild (1-3) Last Admin: 06/14/18 05:31 Dose: 650 mg Bacitracin (Bacitracin Oint) 1 applic TP DAILY [facility] Last Admin: 06/16/18 08:58 Dose: 1 applic Calcium Acetate (Phoslo) 667 mg PO TID [facility] Last Admin: 06/16/18 09:01 Dose: 667 mg Diltiazem HCl (Cardizem) 90 mg PO Q8H [facility] Last Admin: 06/16/18 09:31 Dose: 90 mg Epoetin Charles (Procrit) 10,000 unit SC TTS [facility] Last Admin: 06/16/18 09:06 Dose: 10,000 unit Finasteride (Proscar) 5 mg PO DAILY [facility] Last Admin: 06/16/18 08:57 Dose: 5 mg Fluticasone Propionate (Flonase) 1 spr VALERIA DAILY PRN PRN Reason: Nasal congestion Metoprolol Succinate (Toprol Xl) 50 mg PO Q12 [facility] Last Admin: 06/16/18 08:55 Dose: 50 mg Pantoprazole Sodium (Protonix Ec Tab) 40 mg PO DAILY [facility] Last Admin: 06/16/18 08:58 Dose: 40 mg Tamsulosin HCl (Flomax) 0.4 mg PO DAILY [facility] Last Admin: 06/16/18 08:59 Dose: 0.4 mg Vitamin B Complex/Vit C/Folic Acid (Nephro-Jj) 1 tab PO DAILY [facility] Last Admin: 06/16/18 08:54 Dose: 1 tab - Labs Labs: 06/15/18 14:38 06/15/18 14:38 PT 13.5 Seconds (9.8-13.1) H 06/14/18 12:35 INR 1.2 06/14/18 12:35 APTT 29.0 Seconds (25.6-37.1) 06/14/18 12:35 - Constitutional Appears: No Acute Distress - Head Exam Head Exam: NORMAL INSPECTION - Cardiovascular Exam Cardiovascular Exam: Tachycardia, REGULAR RHYTHM, +S1, +S2 - GI/Abdominal Exam GI & Abdominal Exam: Soft. absent: Distended, Tenderness - Extremities Exam Extremities Exam: absent: Calf Tenderness - Neurological Exam Neurological Exam: Awake, Oriented x3 - Skin Skin Exam: Dry, Warm Assessment and Plan - Assessment and Plan (Free Text) Assessment: 77 y/o M with a PMHx of ductal prostate cancer, ESRD, HTN, and Wageners Granulomatosis admitted due to gross hematuria. Plan: - Urologist on board - s/p repeat cystoscopy with fulguration on 05/04/18 - s/p Amikar drip and Crypercipitate transfusions. - H&H stable: 8.5/25.6 yesterday - Nephrology on board: c/w HD - plan to transfer tertiary center for Prostate Artery embolization, discussed with Dr Monzon and Dr Birch IR physician, waiting for a telemetry bed at this time at [place] for transfer. - rest of plan as ordered <Hans Tineo - Last Filed: 06/21/18 14:37> Objective - Vital Signs/Intake and Output Vital Signs (last 24 hours): Temp Pulse Resp BP Pulse Ox 98.6 F 73 18 117/68 98 06/16/18 11:53 06/16/18 11:53 06/16/18 11:53 06/16/18 11:53 06/16/18 11:53 - Labs Labs: 06/15/18 14:38 06/15/18 14:38 PT 13.5 Seconds (9.8-13.1) H 06/14/18 12:35 INR 1.2 06/14/18 12:35 APTT 29.0 Seconds (25.6-37.1) 06/14/18 12:35 Assessment and Plan - Assessment and Plan (Free Text) Assessment: Patient was personally seen and examined by me in rounds with residents. Available labs and diagnostic data reviewed. Case, Patient's condition and management plan discussed with residents in rounds. Agree with resident's progress note. Plan: As ordered.
--- NOTE | 2018-06-16 11:32 | CP.PCM.PN ---
Subjective - Date & Time of Evaluation Date of Evaluation: 06/16/18 Time of Evaluation: 11:31 - Subjective Subjective: patient feeling much better no significant changes. Vital signs stable Objective - Vital Signs/Intake and Output Vital Signs (last 24 hours): Temp Pulse Resp BP Pulse Ox 98.3 F 84 18 127/72 99 06/16/18 08:00 06/16/18 08:55 06/16/18 08:00 06/16/18 08:55 06/16/18 08:00 - Medications Medications: Current Medications Acetaminophen (Tylenol 325mg Tab) 650 mg PO Q4 PRN PRN Reason: Fever >100.4 F Last Admin: 06/14/18 21:26 Dose: 650 mg Acetaminophen (Tylenol 325mg Tab) 650 mg PO Q4 PRN PRN Reason: Pain, Mild (1-3) Last Admin: 06/14/18 05:31 Dose: 650 mg Bacitracin (Bacitracin Oint) 1 applic TP DAILY [facility] Last Admin: 06/16/18 08:58 Dose: 1 applic Calcium Acetate (Phoslo) 667 mg PO TID [facility] Last Admin: 06/16/18 09:01 Dose: 667 mg Diltiazem HCl (Cardizem) 90 mg PO Q8H [facility] Last Admin: 06/16/18 09:31 Dose: 90 mg Epoetin Charles (Procrit) 10,000 unit SC TTS [facility] Last Admin: 06/16/18 09:06 Dose: 10,000 unit Finasteride (Proscar) 5 mg PO DAILY [facility] Last Admin: 06/16/18 08:57 Dose: 5 mg Fluticasone Propionate (Flonase) 1 spr VALERIA DAILY PRN PRN Reason: Nasal congestion Metoprolol Succinate (Toprol Xl) 50 mg PO Q12 [facility] Last Admin: 06/16/18 08:55 Dose: 50 mg Pantoprazole Sodium (Protonix Ec Tab) 40 mg PO DAILY [facility] Last Admin: 06/16/18 08:58 Dose: 40 mg Tamsulosin HCl (Flomax) 0.4 mg PO DAILY [facility] Last Admin: 06/16/18 08:59 Dose: 0.4 mg Vitamin B Complex/Vit C/Folic Acid (Nephro-Jj) 1 tab PO DAILY [facility] Last Admin: 06/16/18 08:54 Dose: 1 tab - Labs Labs: 06/15/18 14:38 06/15/18 14:38 PT 13.5 Seconds (9.8-13.1) H 06/14/18 12:35 INR 1.2 06/14/18 12:35 APTT 29.0 Seconds (25.6-37.1) 06/14/18 12:35 - Constitutional Appears: No Acute Distress - Eye Exam Eye Exam: Conjunctival injection - ENT Exam ENT Exam: Mucous Membranes Moist - Respiratory Exam Respiratory Exam: NORMAL BREATHING PATTERN. 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) gross hematuria severe anemia prostatic CA coagulopathy with hypofibrinogenemia leukocytosis started this weekend patient started on antibiotics vancomycin was added one does waiting for the culture. the plan transfusion of cryoprecipitate and blood as needed as per hematology cut down on hemodialysis to twice a week Patient is still oozing from the urine status post cystoscopy with continuous bladder irrigation *24 hours urine for creatinine clearance and protein showed protein 2.6 gram and creatinine clearance 15 mL per minute Also for history when the patient was diagnosed with the above diagnosis he has a following treatment Pulses steroid for 3 days Rituximab 1 g twice 4 weeks apart Oral steroid Plasma phoresis And the patient continued to need dialysis s/p Amicar drip s/p cryopercipitate transfusion; goal fibrinogen > 200 - has been stable after transfusion s/p ddavp s/p vit k Status: Chronic
[2018-06-16 11:54] VITALS: BP 117/68; PULSE 73; TEMP 98.6; O2SAT 98
[2018-06-16] MEDS ORDERED: cefTRIAXone 2 GM in Sodium Chloride 0.9% 100 ML IVPB SCH (12:30)
--- NOTE | 2018-06-16 19:26 | CP.PCM.PN ---
Subjective - Date & Time of Evaluation Date of Evaluation: 06/14/18 Time of Evaluation: 12:00 - Subjective Subjective: No complaints. Discussed with JAVASCRIPT SOFTWARE ENGINEER, for transfer to [place]. Objective - Vital Signs/Intake and Output Vital Signs (last 24 hours): Temp Pulse Resp BP Pulse Ox 98.6 F 73 18 117/68 98 06/16/18 11:53 06/16/18 11:53 06/16/18 11:53 06/16/18 11:53 06/16/18 11:53 Intake and Output: 06/16/18 06/17/18 18:59 06:59 Intake Total 1560 Output Total 1000 Balance 560 - Labs Labs: 06/15/18 14:38 06/15/18 14:38 PT 13.5 Seconds (9.8-13.1) H 06/14/18 12:35 INR 1.2 06/14/18 12:35 APTT 29.0 Seconds (25.6-37.1) 06/14/18 12:35 - Head Exam Head Exam: ATRAUMATIC - Eye Exam Eye Exam: Normal appearance - ENT Exam ENT Exam: Mucous Membranes Dry - Respiratory Exam Respiratory Exam: NORMAL BREATHING PATTERN - Cardiovascular Exam Cardiovascular Exam: +S1, +S2 - GI/Abdominal Exam GI & Abdominal Exam: Normal Bowel Sounds Assessment and Plan (1) Hematuria Assessment & Plan: hypofibrinogenemia; 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 for prostate artery embolization at [place] Status: Chronic (2) Anemia Assessment & Plan: hematuria anemia of CKD transfusion support PRN Status: Chronic (3) Prostate cancer Assessment & Plan: outpatient treatment Status: Chronic
--- NOTE | 2018-06-16 19:36 | CP.PCM.PN ---
Subjective - Date & Time of Evaluation Date of Evaluation: 06/15/18 Time of Evaluation: 18:00 - Subjective Subjective: No complaints. Objective - Vital Signs/Intake and Output Vital Signs (last 24 hours): Temp Pulse Resp BP Pulse Ox 98.6 F 73 18 117/68 98 06/16/18 11:53 06/16/18 11:53 06/16/18 11:53 06/16/18 11:53 06/16/18 11:53 Intake and Output: 06/16/18 06/17/18 18:59 06:59 Intake Total 1560 Output Total 1000 Balance 560 - Labs Labs: 06/15/18 14:38 06/15/18 14:38 PT 13.5 Seconds (9.8-13.1) H 06/14/18 12:35 INR 1.2 06/14/18 12:35 APTT 29.0 Seconds (25.6-37.1) 06/14/18 12:35 - Head Exam Head Exam: ATRAUMATIC - Eye Exam Eye Exam: Normal appearance - ENT Exam ENT Exam: Mucous Membranes Dry - Respiratory Exam Respiratory Exam: NORMAL BREATHING PATTERN - Cardiovascular Exam Cardiovascular Exam: +S1, +S2 - GI/Abdominal Exam GI & Abdominal Exam: Normal Bowel Sounds Assessment and Plan (1) Hematuria Assessment & Plan: hypofibrinogenemia; 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 for prostate artery embolization at [place] Status: Chronic (2) Anemia Assessment & Plan: hematuria anemia of CKD transfusion support PRN Status: Chronic (3) Prostate cancer Assessment & Plan: outpatient treatment Status: Chronic
--- NOTE | 2018-06-16 19:38 | CP.PCM.PN ---
Subjective - Date & Time of Evaluation Date of Evaluation: 06/16/18 Time of Evaluation: 12:00 - Subjective Subjective: No complaints, urine mercerizing range feeder. Objective - Vital Signs/Intake and Output Vital Signs (last 24 hours): Temp Pulse Resp BP Pulse Ox 98.6 F 73 18 117/68 98 06/16/18 11:53 06/16/18 11:53 06/16/18 11:53 06/16/18 11:53 06/16/18 11:53 Intake and Output: 06/16/18 06/17/18 18:59 06:59 Intake Total 1560 Output Total 1000 Balance 560 - Labs Labs: 06/15/18 14:38 06/15/18 14:38 PT 13.5 Seconds (9.8-13.1) H 06/14/18 12:35 INR 1.2 06/14/18 12:35 APTT 29.0 Seconds (25.6-37.1) 06/14/18 12:35 - Head Exam Head Exam: ATRAUMATIC - Eye Exam Eye Exam: Normal appearance - ENT Exam ENT Exam: Mucous Membranes Dry - Respiratory Exam Respiratory Exam: NORMAL BREATHING PATTERN - Cardiovascular Exam Cardiovascular Exam: +S1, +S2 - GI/Abdominal Exam GI & Abdominal Exam: Normal Bowel Sounds Assessment and Plan (1) Hematuria Assessment & Plan: hypofibrinogenemia; 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 for prostate artery embolization at [place] Status: Chronic (2) Anemia Assessment & Plan: hematuria anemia of CKD transfusion support PRN Status: Chronic (3) Prostate cancer Assessment & Plan: outpatient treatment Status: Chronic
--- NOTE | 2018-06-20 08:54 | PN ---
DATE: 06/13/2018 SUBJECTIVE: The patient is seen and examined. Interim events noted. Consults noted and appreciated. The patient remains in progressive care unit, on telemetry. Telephone orders were given yesterday. The patient had episodes of tachycardia. The patient is not a good historian, but denies any chest pain, shortness of breath, urinary symptoms, or abdominal pain. PHYSICAL EXAMINATION: GENERAL: The patient is in no acute distress. VITAL SIGNS: Stable. HEART: S1, S2 normal and regular. LUNGS: Good bilateral air exchange. ABDOMEN: Soft and nontender. EXTREMITIES: No edema. No calf swelling. No tenderness. No acute ischemia. CENTRAL NERVOUS SYSTEM EXAM: Essentially unchanged. The patient still has indwelling catheter draining dark pinkish. DIAGNOSTIC DATA: Available diagnostic data reviewed. The patient has white count of 24,000. There is no obvious source of infection. ASSESSMENT: stable. Start the patient on Rocephin after culture. PLAN: As ordered. Case and plan discussed with the patient and nurse. Hans Tineo MD
--- NOTE | 2018-06-21 15:41 | OP ---
PROCEDURE DATE: 04/27/2018 PREOPERATIVE DIAGNOSIS: Gross hematuria. POSTOPERATIVE DIAGNOSIS: Hemorrhagic prostate. PROCEDURE PERFORMED: Cystoscopy with fulguration of prostatic urethra. DESCRIPTION OF PROCEDURE: The patient was placed on the operating room table in dorsal lithotomy position. The area of the groin was draped and prepped in a sterile manner. Using a #24 continuous flow resectoscope, I entered into the bladder atraumatically, clearly obvious that the bleeding is happening from the level of the prostatic urethra. I used a loop cautery to cauterize as much as I could. The cauterization was complete to the point where at the end of the procedure I did not see any significant active bleeding. I looked into the bladder, there was no bleeding from the bladder wall itself, but most of the bleeding appeared to be coming from the left lateral prostatic urethra. At the end of the procedure, I inserted a #24 three-way Banks catheter, initial CBI was very light pink. No traction was required at the end of the procedure. The patient then was taken from the operating room in good condition. Yessy Jeffries MD
== END 2018-06-16 14:25 | disposition short-term general hospital (02) | DRG 713 ==
LOC: H.ER 22:25 → H.ERHOLD 04-26 01:05 → H.TEL 04-26 05:10 → OBSVTOIN 04-28 09:01
PROVIDERS: ADMIT Internal Medicine; ATTEND Internal Medicine
PROC: 3E1K88Z Irrigation of Genitourinary Tract using Irrigating Substance, Via Natural or Artificial Opening Endoscopic (ICD-10-PCS; 2018-04-27)
PROC: 0V508ZZ Destruction of Prostate, Via Natural or Artificial Opening Endoscopic (ICD-10-PCS; 2018-04-27)
PROC: 0W3R8ZZ Control Bleeding in Genitourinary Tract, Via Natural or Artificial Opening Endoscopic (ICD-10-PCS; 2018-04-27)
PROC: 30233N1 Transfusion of Nonautologous Red Blood Cells into Peripheral Vein, Percutaneous Approach (ICD-10-PCS; principal; 2018-04-28)
PROC: 5A1D70Z Performance of Urinary Filtration, Intermittent, Less than 6 Hours Per Day (ICD-10-PCS; 2018-04-28)
PROC: 0V508ZZ Destruction of Prostate, Via Natural or Artificial Opening Endoscopic (ICD-10-PCS; 2018-05-04)
PROC: 0W3R8ZZ Control Bleeding in Genitourinary Tract, Via Natural or Artificial Opening Endoscopic (ICD-10-PCS; 2018-05-04)
PROC: 05PYX3Z Removal of Infusion Device from Upper Vein, External Approach (ICD-10-PCS; 2018-05-24)
PROC: 05HM33Z Insertion of Infusion Device into Right Internal Jugular Vein, Percutaneous Approach (ICD-10-PCS; 2018-05-24)
PROC: 0W3R8ZZ Control Bleeding in Genitourinary Tract, Via Natural or Artificial Opening Endoscopic (ICD-10-PCS; 2018-06-03)
PROC: 0V508ZZ Destruction of Prostate, Via Natural or Artificial Opening Endoscopic (ICD-10-PCS; 2018-06-03)
DX: C61 Malignant neoplasm of prostate (principal); N18.6 End stage renal disease; M31.31 Wegener's granulomatosis with renal involvement; D62 Acute posthemorrhagic anemia; D68.8 Other specified coagulation defects; N17.9 Acute kidney failure, unspecified; N25.81 Secondary hyperparathyroidism of renal origin; E87.2 Acidosis; D68.4 Acquired coagulation factor deficiency; Z99.2 Dependence on renal dialysis; I48.2 Chronic atrial fibrillation; Z87.891 Personal history of nicotine dependence; D63.1 Anemia in chronic kidney disease; E87.5 Hyperkalemia; R59.1 Generalized enlarged lymph nodes; N36.8 Other specified disorders of urethra; E83.39 Other disorders of phosphorus metabolism; K74.60 Unspecified cirrhosis of liver; R31.0 Gross hematuria

== ENCOUNTER 2018-09-24 09:15 | Inpatient (IN) | payer MEDICARE, OTHER ==
--- NOTE | 2018-09-24 10:09 | ED PDOC ---
HPI: General Adult Time Seen by Provider: 09/24/18 09:30 Chief Complaint (Nursing): Abnormal Labs Chief Complaint (Provider): Abnormal Labs History Per: Patient, Bin Filler (#[id number]) History/Exam Limitations: no limitations Onset/Duration Of Symptoms: Hrs Current Symptoms Are (Timing): Still Present Additional Complaint(s): 77 year old male with a past medical history of hypertension, CHF, atrial fibrillation, and anemia who is presenting from long term for evaluation of low hemoglobin and hematuria. Patient is refusing to answer any questions. Further history is unobtainable. PMD: Hans Tineo Past Medical History Reviewed: Historical Data, Nursing Documentation, Vital Signs, Unable To Obtain (patient is refusing to answer questions ) Vital Signs: Last Vital Signs Temp 97 F L 09/24/18 09:23 Pulse 158 H 09/24/18 09:23 Resp BP 85/53 L 09/24/18 09:23 Pulse Ox 95 09/24/18 09:23 - Medical History PMH: Anemia, Arthritis, Atrial Fibrillation, Benign Prostatic Hyperplasia, CHF, HTN, Chronic Kidney Disease Denies: HIV - Surgical History Surgical History: Appendectomy - Family History Family History: States: Unknown Family Hx - Home Medications Home Medications: Ambulatory Orders Medication Instructions Recorded Tamsulosin [Flomax] 0.4 mg PO DAILY 04/28/16 Finasteride [Proscar] 5 mg PO DAILY 03/21/18 Acetaminophen [Tylenol] 650 mg PO Q4 PRN 04/26/18 Acetaminophen [Tylenol] 650 mg PO Q4 PRN 04/26/18 Bacitracin 1 each TP DAILY 04/26/18 B Complex W-C No.20/Folic Acid 1 tab PO DAILY 09/24/18 [Nephrocaps Softgel] Calcitriol 0.25 mcg PO DAILY 09/24/18 Epoetin Charles [Epogen] 1 ml SUBCUT TTS 09/24/18 Ferrous Gluconate [Fergon] 1 tab PO TID 09/24/18 Losartan Potassium 1 tab PO DAILY 09/24/18 Metoprolol Tartrate [Lopressor] 0.5 tab PO Q12 09/24/18 Mirtazapine [Remeron] 1 tab PO QPM 09/24/18 QUEtiapine [SEROquel] 25 mg PO QPM 09/24/18 Sevelamer Carbonate [Renvela] 1 tab PO TID 09/24/18 metroNIDAZOLE [Flagyl] 1 tab PO Q6 09/24/18 - Allergies Allergies/Adverse Reactions: Allergies Allergy/AdvReac Type Severity Reaction Status Date / Time No Known Allergies Allergy Verified 09/24/18 09:26 Review of Systems ROS Statement: Except As Marked, All Systems Reviewed And Found Negative Review Of Systems: ROS cannot be obtained secondary to pt's inabilty to answer questions. (limited as patient is refusing to answer questions) Constitutional: Positive for: Other (low hemoglobin ) Genitourinary Male: Positive for: Hematuria Physical Exam - Reviewed Nursing Documentation Reviewed: Yes Vital Signs Reviewed: Yes - Physical Exam Appears: Positive for: Non-toxic, No Acute Distress Head Exam: Positive for: ATRAUMATIC, NORMAL INSPECTION, NORMOCEPHALIC Skin: Positive for: Normal Color, Warm, DRY Eye Exam: Positive for: Normal appearance Cardiovascular/Chest: Positive for: Tachycardia, Irregularly Irregular Respiratory: Positive for: Normal Breath Sounds. Negative for: Respiratory Distress Gastrointestinal/Abdominal: Positive for: Normal Exam, Soft. Negative for: Tenderness Extremity: Positive for: Normal ROM. Negative for: Deformity, Swelling Neurologic/Psych: Positive for: Alert, Oriented. Negative for: Motor/Sensory Deficits - Laboratory Results Result Diagrams: 09/24/18 09:45 09/24/18 09:45 - ECG O2 Sat by Pulse Oximetry: 95 (RA) - Critical Care Total Time (In Min): 45 Medical Decision Making Medical Decision Making: Time: 10:02 Plan: --ABO/RH Type --Blood Type and Screen --EKG --CMP --Troponin --CBC --Coags --Chest x-ray --Urine Culture --Urinalysis Left message with patient's son (Td Dang) to obtain verbal consent for blood transfusion, no response. Spoke with Dr. Tineo, agrees with transfusion without consent due to Hb level and abnormal vital signs. Dr. Tineo requests consultants as per last admission. 12:[address] Dow who is block press operator covering for Dr. Bernabe who recommends IV Fluids. Scribe Attestation: Documented by Radha Hanks, acting as a scribe for Janie Molina MD. Provider Scribe Attestation: All medical record entries made by the Scribe were at my direction and personally dictated by me. I have reviewed the chart and agree that the record accurately reflects my personal performance of the history, physical exam, medical decision making, and the department course for this patient. I have also personally directed, reviewed, and agree with the discharge instructions and disposition. Disposition - Clinical Impression Clinical Impression: ESRD (end stage renal disease), Anemia, Atrial fibrillation with RVR - Patient ED Disposition Is Patient to be Admitted: Yes - Disposition Disposition Time: 11:32 Condition: GUARDED - Pt Status Changed To: Hospital Disposition Of: Inpatient - Admit Certification Admit to Inpatient:: After my assessment, the patient will require hospitalization for at least two midnights. This is because of the severity of symptoms shown, intensity of services needed, and/or the medical risk in this patient being treated as an outpatient. - POA Present On Arrival: None
[2018-09-24 10:27] LABS: BASO % 0.2 % (0.0-2.0); EOS % 0.1 % (0.0-4.0); LYMPH # 0.5 K/uL (1.0-4.3); LYMPH % 6.5 % (20.0-40.0); MEAN CELL VOLUME 98.5 fl (80.0-94.0); MEAN CORPUSCULAR HEMOGLOBIN 31.2 pg (27.0-31.0); MEAN CORPUSCULAR HGB CONC 31.7 g/dL (33.0-37.0); MEAN PLATELET VOLUME 7.8 fl (7.2-11.7); MONO # 1.3 K/uL (0.0-0.8); MONO % 17.9 % (0.0-10.0); NEUT # 5.5 K/uL (1.8-7.0); NEUT % 75.3 % (50.0-75.0); NRBC % 0.2 % (0.0-0.0); PLATELET COUNT 120 K/uL (130-400); RBC 1.95 Mil/uL (4.40-5.90); RED CELL DISTRIBUTION WIDTH 20.1 % (11.5-14.5)
[2018-09-24] MEDS ORDERED: Sodium Chloride 0.9% 1,000 ML IV STA (10:28)
[2018-09-24 10:37] LABS: HEMOGLOBIN 6.1 g/dL (12.0-18.0)
[2018-09-24 10:38] LABS: WHITE BLOOD COUNT 7.3 K/uL (4.8-10.8)
[2018-09-24 10:43] LABS: ALBUMIN 2.2 g/dL (3.5-5.0); CALCIUM 8.5 mg/dL (8.4-10.2)
[2018-09-24 10:44] LABS: ALB/GLOB RATIO 0.7 (1.0-2.1)
[2018-09-24 10:49] LABS: PROTHROMBIN TIME 11.9 Seconds (9.8-13.1)
[2018-09-24 10:50] LABS: PARTIAL THROMBOPLASTIN TIME 26.7 Seconds (25.6-37.1)
[2018-09-24 11:02] LABS: TROPONIN I 0.025 ng/mL (0.00-0.120)
[2018-09-24] MEDS ORDERED: Albuterol 0.083% Inhal Sol (2.5 mg/3 mL) UD INH STA (11:29)
[2018-09-24] MEDS ORDERED: Sod Polystyrene Sulf 15 gm/60 ml Susp PO ONE (11:45)
[2018-09-24 12:01] LABS: URINE BILIRUBIN NEGATIVE (NEGATIVE); URINE CLARITY TUR (Clear); URINE COLOR RED (YELLOW); URINE GLUCOSE (UA) NEGATIVE (NEGATIVE)
[2018-09-24 12:02] LABS: URINE BLOOD LARGE (NEGATIVE); URINE LEUKOCYTE ESTERASE MOD Leu/uL (Negative); URINE PROTEIN 100 mg/dL (NEGATIVE); URINE UROBILINOGEN 0.2-1.0 mg/dL (0.2-1.0)
[2018-09-24 12:03] LABS: SQUAMOUS EPITHIAL 3 /hpf (0-5); URINE BACTERIA MOD (<OCC); WBC CLUMPS MA /hpf
[2018-09-24 12:04] LABS: URINE OTHER CASTS 11 /hpf
[2018-09-24 12:06] LABS: BANDS 3 % (0-2); LYMPHOCYTE 8 % (20-50); METAMYELOCYTE 1 % (0-0); MONOCYTE 10 % (0-10); MYELOCYTE 2 % (0-0); NEUTROPHIL 76 % (42-75); TOTAL CELLS COUNTED 100
[2018-09-24 12:08] LABS: ANISOCYTOSIS MODERATE; BURR CELLS SLIGHT; OVALOCYTES SLIGHT; PLATELET ESTIMATE SLIGHTLY DECREASED (NORMAL); POIKILOCYTOSIS SLIGHT; TOXIC GRANULATION PRESENT
[2018-09-24 12:09] LABS: HYPOCHROMIC MARKED; LARGE PLATELETS PRESENT
[2018-09-24] MEDS ORDERED: Albuterol 0.083% Inhal Sol (2.5 mg/3 mL) UD ONE (12:25)
[2018-09-24] MEDS ORDERED: Digoxin 500 mcg/2ml (0.5 mg/2ml) Inj IVP STA (13:16)
[2018-09-24] MEDS ORDERED: Digoxin 500 mcg/2ml (0.5 mg/2ml) Inj ONE (14:03)
--- NOTE | 2018-09-24 16:31 | RAD ---
Date of service: 09/24/2018 HISTORY: Anemia COMPARISON: Comparison chest 06/13/2018. FINDINGS: LUNGS: Slight elevation left hemidiaphragm possibly due to eventration; possibility of subpulmonic effusion not excluded.. PLEURA: No significant pleural effusion identified, no pneumothorax apparent. CARDIOVASCULAR: Heart size is of borderline/mildly enlarged. Mild calcified atherosclerotic plaque aortic arch.. OSSEOUS STRUCTURES: No significant abnormalities. VISUALIZED UPPER ABDOMEN: Normal. OTHER FINDINGS: None. IMPRESSION: Slight elevation left hemidiaphragm possibly due to eventration; the possibility of a subpulmonic effusion not excluded.
[2018-09-24] MEDS ORDERED: EPOETIN ALFA 10,000 UNIT/ML ML SC SCH (17:05)
--- NOTE | 2018-09-24 19:10 | CARD ---
APPROVED REPORT Date of service: 09/24/2018 EKG Measurement Heart [id number] <Conclusion> Atrial fibrillation with rapid ventricular response Low voltage QRS Nonspecific ST abnormality Abnormal ECG
--- NOTE | 2018-09-24 19:21 | CARD ---
APPROVED REPORT Date of service: 09/24/2018 EKG Measurement Heart [id number] <Conclusion> Atrial fibrillation with rapid ventricular response Nonspecific T wave abnormality Abnormal ECG
[2018-09-24] MEDS: EPOETIN ALFA 10,000 UNIT/ML ML SC SCH (19:39)
[2018-09-25] MEDS: metroNIDAZOLE 500mg/100ml NS 100 ML IVPB SCH ×3 (01:23→16:18)
[2018-09-25 06:28] LABS: BASO % 0.1 % (0.0-2.0); LYMPH # 0.4 K/uL (1.0-4.3); LYMPH % 5.7 % (20.0-40.0); MEAN CELL VOLUME 92.6 fl (80.0-94.0); MEAN CORPUSCULAR HEMOGLOBIN 30.8 pg (27.0-31.0); MEAN CORPUSCULAR HGB CONC 33.3 g/dL (33.0-37.0); MEAN PLATELET VOLUME 7.5 fl (7.2-11.7); MONO # 1.4 K/uL (0.0-0.8); MONO % 21.9 % (0.0-10.0); NEUT # 4.7 K/uL (1.8-7.0); NEUT % 72.3 % (50.0-75.0); NRBC % 0.6 % (0.0-0.0); PLATELET COUNT 103 K/uL (130-400); RBC 2.61 Mil/uL (4.40-5.90); RED CELL DISTRIBUTION WIDTH 17.4 % (11.5-14.5); WHITE BLOOD COUNT 6.5 K/uL (4.8-10.8)
[2018-09-25 06:38] LABS: ALB/GLOB RATIO 0.6 (1.0-2.1); ALBUMIN 1.9 g/dL (3.5-5.0); CALCIUM 7.9 mg/dL (8.4-10.2)
[2018-09-25 07:45] LABS: LYMPHOCYTE 4 % (20-50); METAMYELOCYTE 3 % (0-0); MONOCYTE 10 % (0-10); MYELOCYTE 2 % (0-0); NEUTROPHIL 81 % (42-75); NUCLEATED RED BLOOD CELL 1 % (0-0); PLATELET ESTIMATE DECREASED (NORMAL); TOTAL CELLS COUNTED 100
[2018-09-25 07:46] LABS: ANISOCYTOSIS SLIGHT; POLYCHROMIC SLIGHT
[2018-09-25 07:47] LABS: HYPOCHROMIC SLIGHT
[2018-09-25] MEDS: Multivitamin Vitamin B Complex (Nephro-Vite) Tab PO SCH (08:58)
[2018-09-25] MEDS ORDERED: Bacitracin 500 Units/gm Oint Foilpak UD TOP SCH (09:00)
[2018-09-25] MEDS ORDERED: Metoprolol 1 mg/ml Inj IVP ONE (09:15)
--- NOTE | 2018-09-25 09:18 | PCM.RRT ---
<Mali Wood - Last Filed: 09/25/18 10:00> - Constitutional Appears: Chronically Ill - Head Head Exam: ATRAUMATIC Additional Comments: oral mucosa noted to be dry - Eyes Eye Exam: EOMI - Respiratory Exam Respiratory Exam: NORMAL BREATHING PATTERN. absent: Accessory Muscle Use, Respiratory Distress - Cardiovascular Exam Cardiovascular Exam: Irregular Rhythm - GI/Abdominal Exam GI & Abdominal Exam: Soft. absent: Guarding, Rigid, Tenderness Additional comments: hadley catheter in place noted to be bloody in appearance - Neurological Exam Neurological Exam: Awake - Extremities Exam Extremities Exam: absent: Calf Tenderness, Joint Swelling, Pedal Edema Additional comments: poor skin turgor Plan - Assessment of Findings&Treatment Plan PSYCH TECH called by RN PSYCH TECH location: [address] [place] [address] PSYCH TECH time: 9:06am Response time: 1 minute Present during PSYCH TECH: Dr. Dobbs PSYCH TECH was called on 77 y/o M with hx of HTN, Atrial fibrillation, CHF (EF: 60%) & ESRD who was admitted for anemia as well as hematuria because of A. Fib with a rate of 160bpm. As per nurse, patient refused his morning dose of lopressor. Initial VS: 90/50, 153 bpm, spo2-99%, temp: 98.3F Interventions: EKG: A fib @ rate of 160bpm -1 L of NS bolus given. -D5, .45NS @ rate of 80ml/hr. -No labs drawn End VS: 74/48 P-112bpm, spo2-99%, temp: 98.3F 77 y/o M with hx of HTN, Atrial fibrillation, CHF (EF: 60%) & ESRD. -Continue telemetry monitoring. -Continue to monitor vital signs. -Continue D5, .45%NS @ rate of 80ml/hr. <Radha Dobbs - Last Filed: 09/25/18 11:30> Plan - Assessment of Findings&Treatment Plan END VITALS WERE NOT 74/48, END VITALS WERE 107/61. HE IS RESPONDING WELL TO FLUID RESUSCITATION. DISCUSSED WITH PATIENT'S PRIMARY MD, DR. ROSE. CONTINUE D5 NORMAL SALINE, NOT 1/2NS @100CC/HR. Attending/Attestation - Attestation I have personally seen and examined this patient.: Yes I have fully participated in the care of the patient.: Yes I have reviewed all pertinent clinical information, including history, physical exam and plan: Yes
[2018-09-25] MEDS ORDERED: Lactated Ringer's 1,000 ML IV SCH (09:30)
[2018-09-25] MEDS ORDERED: Lactated Ringer's 500 ML IV SCH (09:30)
[2018-09-25] MEDS ORDERED: Dextrose 5%/0.45% NS 1,000 ML IV SCH (09:45)
[2018-09-25] MEDS ORDERED: Sodium Chloride 0.9% 1,000 ML IV SCH ×2 (09:45)
--- NOTE | 2018-09-25 11:11 | CP.PCM.CON ---
History of Present Illness - History of Present Illness History of Present Illness: this 77-year-old man was transferred to the emergency room from [facility] where his chronically institutionalized because of general debility low blood pressure and failure to thrive. The patient does not respond to loud calling and responds quite sluggishly to painful stimuli. Is not able to give any history and no family member is available since his admission yesterday. His extensive history from his chart of 2 prior hospitalizations since February was reviewed. 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 He has prosthetic malignancy and recurrent hematuria. The patient had needed regular hemodialysis though no particular history as to when he was dialyzed last is available. This consultation was requested because of persistent atrial fibrillation. The patient has demonstrated atrial fibrillation since his admission to this hospital in February. Cardiac evaluations were carried out during these hospit alizations as well. Nurses report that the patient does not accept any medications by mouth or any f eeding. He has been receiving intravenous fluids. On physical examination this was an elderly man in for physical hygiene who does not respond to loud calling and responds mostly distally to painful stimuli. Telemetry demonstrates atrial fibrillation at heart rates between 110 and 130 bpm. His blood pressure was 118/70 mmHg after intravenous fluids have been administered. At this point he is receiving intravenous fluids at 100 mL per hour. An indwelling catheter demonstrate scanty urine output. His jugular venous pressure was not elevated and there was no pedal or sacral edema. The apex was not palpable the first and second heart sounds were distant but normal. There was a faint apical systolic murmur no gallop rhythm course crepitations were audible at both bases. His electro-cardiogram shows atrial fibrillation with rapid ventricular response at admission no Q waves were detected. Review of his echocardiogram from February demonstrates dilated right and left atria and mildly enlarged right ventricle. The left ventricular systolic function appears preserved. The labs were noted. his BUN and creatinine were 94 and 5.6 mg percent, a mild improvement after IV hydration. His serum potassium has improved to 5.2 mg/L. He also shows a normocytic normochromic anemia suggestive of anemia of renal origin. 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 Chronic atrial fibrillation. Carcinoma of prostate. The patient tolerates renal evaluation. In the meantime I started the patient on IV beta blockade so as to control his heart rate and improve cardiac output. His long-term prognosis appears poor given uncertainty regarding plans of long- term care. Past Patient History - Infectious Disease Hx of Infectious Diseases: None - Past Medical History & Family History Past Medical History?: Yes - Past Social History Smoking Status: Former Smoker - CARDIAC Hx Atrial Fibrillation: Yes Hx Congestive Heart Failure: Yes Hx Hypertension: Yes - PULMONARY Hx Respiratory Disorders: No - NEUROLOGICAL Hx Neurological Disorder: No - HEENT Hx HEENT Problems: Yes - RENAL Hx Chronic Kidney Disease: Yes - ENDOCRINE/METABOLIC Hx Endocrine Disorders: Yes - HEMATOLOGICAL/ONCOLOGICAL Hx AIDS: No Hx Anemia: Yes Hx Human Immunodeficiency Virus (HIV): No - INTEGUMENTARY Hx Dermatological Problems: No - MUSCULOSKELETAL/RHEUMATOLOGICAL Hx Arthritis: Yes Hx Falls: Yes - GASTROINTESTINAL Hx Gastrointestinal Disorders: No - GENITOURINARY/GYNECOLOGICAL Hx Genitourinary Disorders: Yes (RETENTION BUTLER TO SGD) - PSYCHIATRIC Hx Psychophysiologic Disorder: No Hx Substance Use: No - SURGICAL HISTORY Hx Appendectomy: Yes - ANESTHESIA Hx Anesthesia: Yes Hx Anesthesia Reactions: No Hx Malignant Hyperthermia: No Meds Allergies/Adverse Reactions: Allergies Allergy/AdvReac Type Severity Reaction Status Date / Time No Known Allergies Allergy Verified 09/24/18 09:26 - Medications Medications: Current Medications Acetaminophen (Tylenol 325mg Tab) 650 mg PO Q4 PRN PRN Reason: Fever >100.4 F Acetaminophen (Tylenol 325mg Tab) 650 mg PO Q4 PRN PRN Reason: Pain, Mild (1-3) Bacitracin (Bacitracin) 1 ea TOP DAILY [facility] Last Admin: 09/25/18 09:00 Dose: Not Given Calcitriol (Rocaltrol) 0.25 mcg PO DAILY [facility] Last Admin: 09/25/18 08:59 Dose: Not Given Epoetin Charles (Procrit) 10,000 unit SC TTS [facility] Last Admin: 09/24/18 19:39 Dose: 10,000 unit Ferrous Gluconate (Fergon) 324 mg PO BID [facility] Last Admin: 09/25/18 08:58 Dose: Not Given Finasteride (Proscar) 5 mg PO DAILY [facility] Last Admin: 09/25/18 08:59 Dose: Not Given Metronidazole (Flagyl 500mg/100ml Ns) 100 mls @ 100 mls/hr IVPB Q8 [facility]; Protocol Last Admin: 09/25/18 08:19 Dose: 100 mls/hr Dextrose/Sodium Chloride (Dextrose 5%/0.45% Ns 1000 Ml) 1,000 mls @ 80 mls/hr IV .[id number] [facility] Stop: 09/26/18 09:33 Last Admin: 09/25/18 09:42 Dose: 80 mls/hr Losartan Potassium (Cozaar) 50 mg PO DAILY [facility] Last Admin: 09/25/18 08:58 Dose: Not Given Metoprolol Tartrate (Lopressor) 5 mg IVP Q12 [facility] Mirtazapine (Remeron) 15 mg PO HS [facility] Last Admin: 09/24/18 21:04 Dose: 15 mg Quetiapine Fumarate (Seroquel) 25 mg PO HS [facility] Last Admin: 09/24/18 21:04 Dose: 25 mg Sevelamer Carbonate (Renvela) 800 mg PO TID [facility] Last Admin: 09/25/18 08:59 Dose: Not Given Tamsulosin HCl (Flomax) 0.4 mg PO DAILY [facility] Last Admin: 09/25/18 08:58 Dose: Not Given Vitamin B Complex/Vit C/Folic Acid (Nephro-Jj) 1 tab PO DAILY [facility] Last Admin: 09/25/18 08:58 Dose: Not Given Results - Vital Signs Recent Vital Signs: Last Vital Signs Temp 98.2 F 09/25/18 08:12 Pulse 150 H 09/25/18 09:38 Resp 18 09/25/18 08:12 BP 90/50 L 09/25/18 09:38 Pulse Ox 100 09/25/18 08:12 - Labs Result Diagrams: 09/25/18 05:32 09/25/18 05:32 Labs: Laboratory Results - last 24 hr 09/24/18 09/24/18 09/24/18 09:45 09:45 09:45 WBC RBC Hgb Hct MCV MCH MCHC RDW Plt Count MPV Neut % (Auto) Lymph % (Auto) [place] % (Auto) Eos % (Auto) Baso % (Auto) Neut # (Auto) Lymph # (Auto) [place] # (Auto) Eos # (Auto) Baso # (Auto) Neutrophils % (Manual) 76 H Band Neutrophils % 3 H Lymphocytes % (Manual) 8 L Monocytes % (Manual) 10 Metamyelocytes % 1 H Myelocytes % 2 H Nucleated RBC % Toxic Granulation Present Platelet Estimate Slightly decreased L Large Platelets Present Polychromasia Hypochromasia (manual) Marked Poikilocytosis (manual Slight Anisocytosis (manual) Moderate Ovalocytes Slight Yi Cells Slight Sodium Potassium Chloride Carbon Dioxide Anion Gap BUN 100 H* D Creatinine Est GFR ( Amer) Est GFR (Non-Af Amer) Random Glucose Calcium Total Bilirubin AST ALT Alkaline Phosphatase Total Protein Albumin Globulin Albumin/Globulin Ratio Urine Color Urine Clarity Urine pH Ur Specific [place] Urine Protein Urine Glucose (UA) Urine Ketones Urine Blood Urine Nitrate Urine Bilirubin Urine Urobilinogen Ur Leukocyte Esterase Urine RBC (Auto) Urine WBC Clumps (Auto) Urine Microscopic WBC Ur Squamous Epith Cells Urine Bacteria Other Casts Urine Yeast (Budding) Blood Type O POSITIVE Antibody Screen Negative Crossmatch See Detail BBK History Checked Patient has bt 09/24/18 09/25/18 09/25/18 10:10 05:32 05:32 WBC 6.5 RBC 2.61 L Hgb 8.0 L Hct 24.2 L MCV 92.6 D MCH 30.8 MCHC 33.3 RDW 17.4 H Plt Count 103 L MPV 7.5 Neut % (Auto) 72.3 Lymph % (Auto) 5.7 L [place] % (Auto) 21.9 H Eos % (Auto) 0.0 Baso % (Auto) 0.1 Neut # (Auto) 4.7 Lymph # (Auto) 0.4 L [place] # (Auto) 1.4 H Eos # (Auto) 0.0 Baso # (Auto) 0.0 Neutrophils % (Manual) 81 H Band Neutrophils % Lymphocytes % (Manual) 4 L Monocytes % (Manual) 10 Metamyelocytes % 3 H Myelocytes % 2 H Nucleated RBC % 1 H Toxic Granulation Platelet Estimate Decreased L Large Platelets Polychromasia Slight Hypochromasia (manual) Slight Poikilocytosis (manual Anisocytosis (manual) Slight Ovalocytes Yi Cells Sodium 135 Potassium 5.2 H Chloride 105 Carbon Dioxide 17 L Anion Gap 18 BUN 94 H Creatinine 5.6 H Est GFR ( Amer) 12 Est GFR (Non-Af Amer) 10 Random Glucose 91 Calcium 7.9 L Total Bilirubin 1.2 AST 39 ALT 24 Alkaline Phosphatase 64 Total Protein 4.7 L Albumin 1.9 L Globulin 2.9 Albumin/Globulin Ratio 0.6 L Urine Color Red Urine Clarity Tur Urine pH 6.0 Ur Specific [place] 1.011 Urine Protein 100 Urine Glucose (UA) Negative Urine Ketones Negative Urine Blood Large Urine Nitrate Negative Urine Bilirubin Negative Urine Urobilinogen 0.2-1.0 Ur Leukocyte Esterase Mod Urine RBC (Auto) 1170 H Urine WBC Clumps (Auto) Ma Urine Microscopic WBC 1118 H Ur Squamous Epith Cells 3 Urine Bacteria Mod H Other Casts 11 Urine Yeast (Budding) Mod H Blood Type Antibody Screen Crossmatch BBK History Checked
[2018-09-25] MEDS ORDERED: Dextrose 5%/0.9% NS 1,000 ML IV SCH (11:30)
--- NOTE | 2018-09-25 12:17 | HP ---
CHIEF COMPLAINT: Found to have very low hemoglobin in [facility]. HISTORY OF PRESENT ILLNESS: This is a 77-year-old male [facility] resident, known case of hypertension, congestive heart failure, chronic kidney disease, severe anemia, arthritis, atrial fibrillation, benign prostatic hyperplasia, history of hematuria who is a long-term [facility] resident, was found to have hemoglobin of 7, so the patient was sent to the emergency room where after evaluation the patient was found to have hemoglobin of 6 and was admitted for further management. The patient himself is a very poor historian and history and review of system is not available. No specific issue reported by nursing staff. PAST MEDICAL HISTORY: Significant for hypertension, elevated cholesterol, BPH, atrial fibrillation, anemia, arthritis, chronic kidney disease. PAST SURGICAL HISTORY: The patient has multiple urologic intervention done. The patient also had appendectomy done. MEDICATIONS: The patient is on Flomax, Proscar, Tylenol, vitamin, calcitriol, Epogen, losartan, ferrous sulfate, metoprolol, mirtazapine, Seroquel, Renvela and Flagyl. ALLERGIES: THE PATIENT IS NOT ALLERGIC TO ANY MEDICATIONS. FAMILY HISTORY: Noncontributory. PHYSICAL EXAMINATION: GENERAL: A well built, well nourished, 77-year-old male in no acute distress. VITAL SIGNS: Temperature 98.1, pulse 130, respirations 18, blood pressure 102/61, and saturation 99%. HEENT: Pupils reacting to light. NECK: No JVD. No thyromegaly. No lymphadenopathy. No nystagmus. Normocephalic and atraumatic skull. HEART: S1 and S2, normal and regular. No significant murmur, gallop, or rub is heard. The patient has irregularly irregular heart rate. LUNGS: The patient has good bilateral air exchange. No rales or rhonchi. ABDOMEN: Soft and nontender. No organomegaly. No fluid. Bowel sounds are plus and normal. EXTREMITIES: No edema. No calf swelling. No tenderness. No acute ischemia. CENTRAL NERVOUS SYSTEM: Exam is essentially unchanged. There is no significant acute focal, motor, or sensory or neurological deficit. thorough PSYCHOTHERAPIST COUNSELOR exam is not possible due to the patient's general condition and noncooperation. DIAGNOSTIC DATA: Available diagnostic data reviewed. Telemetry monitoring reveals atrial fibrillation with episodes of tachycardia. EKG shows AFib with rapid ventricular rate. Chest x-ray does not reveal any acute infiltrate. LABORATORY DATA: WBC 7.3, hemoglobin 6.1, hemoglobin 19.2, platelets 120. Sodium 134, potassium 5.5, chloride 103, bicarb 21, BUN 100, creatinine 5.8, albumin is 2.2. Urinalysis shows multiple rbc's and wbc's. ADMITTING IMPRESSION: Severe anemia, atrial fibrillation with rapid ventricular rate, hypertension, chronic kidney disease, benign prostatic hypertrophy, dementia. PLAN: As ordered. Case and plan discussed with the patient, although the patient is not able to comprehend much. Hans Tineo MD
[2018-09-25] MEDS: Metoprolol 1 mg/ml Inj IVP SCH ×3 (12:29→20:18)
--- NOTE | 2018-09-25 13:26 | CP.PCM.CON ---
History of Present Illness - History of Present Illness History of Present Illness: renal consult note pateint altered and unable to provide much history 77 yr old resident of [facility] for ams and decreased oral intake. he has been off hd for more than a monht. on admission noted to have worsening renal function. he received some iv fliuds. however he appears sob and altered than his baseline meds reviewed pmfsh not obtained sec to AMS complete ros is unable to obtain sec to ams vitals reviewed heent normal no jvd awake, opens eye to name then falls back asleep does not follow commands noedema s1s2 present bilateral air entry equal decreased bs at base ckd stage 5/ams/anemia/heamturia/a fib renal function is worsening with poor urine output may benefit from restarting dialysis monitor I&Os can stop iv fluids continue current meds continue epo no family bedside to discuss care d/w nursing staff Past Patient History - Infectious Disease Hx of Infectious Diseases: None - Past Medical History & Family History Past Medical History?: Yes - Past Social History Smoking Status: Former Smoker - CARDIAC Hx Atrial Fibrillation: Yes Hx Congestive Heart Failure: Yes Hx Hypertension: Yes - PULMONARY Hx Respiratory Disorders: No - NEUROLOGICAL Hx Neurological Disorder: No - HEENT Hx HEENT Problems: Yes - RENAL Hx Chronic Kidney Disease: Yes - ENDOCRINE/METABOLIC Hx Endocrine Disorders: Yes - HEMATOLOGICAL/ONCOLOGICAL Hx AIDS: No Hx Anemia: Yes Hx Human Immunodeficiency Virus (HIV): No - INTEGUMENTARY Hx Dermatological Problems: No - MUSCULOSKELETAL/RHEUMATOLOGICAL Hx Arthritis: Yes Hx Falls: Yes - GASTROINTESTINAL Hx Gastrointestinal Disorders: No - GENITOURINARY/GYNECOLOGICAL Hx Genitourinary Disorders: Yes (RETENTION BUTLER TO SGD) - PSYCHIATRIC Hx Psychophysiologic Disorder: No Hx Substance Use: No - SURGICAL HISTORY Hx Appendectomy: Yes - ANESTHESIA Hx Anesthesia: Yes Hx Anesthesia Reactions: No Hx Malignant Hyperthermia: No Meds Allergies/Adverse Reactions: Allergies Allergy/AdvReac Type Severity Reaction Status Date / Time No Known Allergies Allergy Verified 09/24/18 09:26 - Medications Medications: Current Medications Acetaminophen (Tylenol 325mg Tab) 650 mg PO Q4 PRN PRN Reason: Fever >100.4 F Acetaminophen (Tylenol 325mg Tab) 650 mg PO Q4 PRN PRN Reason: Pain, Mild (1-3) Bacitracin (Bacitracin) 1 ea TOP DAILY [facility] Last Admin: 09/25/18 09:00 Dose: Not Given Calcitriol (Rocaltrol) 0.25 mcg PO DAILY [facility] Last Admin: 09/25/18 08:59 Dose: Not Given Epoetin Charles (Procrit) 10,000 unit SC TTS [facility] Last Admin: 09/24/18 19:39 Dose: 10,000 unit Ferrous Gluconate (Fergon) 324 mg PO BID [facility] Last Admin: 09/25/18 08:58 Dose: Not Given Finasteride (Proscar) 5 mg PO DAILY [facility] Last Admin: 09/25/18 08:59 Dose: Not Given Metronidazole (Flagyl 500mg/100ml Ns) 100 mls @ 100 mls/hr IVPB Q8 [facility]; Protocol Last Admin: 09/25/18 08:19 Dose: 100 mls/hr Dextrose/Sodium Chloride (Dextrose 5%/0.9% Ns 1000 Ml) 1,000 mls @ 100 mls/hr IV .Q10H [facility] Stop: 09/26/18 11:25 Last Admin: 09/25/18 12:28 Dose: 100 mls/hr Losartan Potassium (Cozaar) 50 mg PO DAILY [facility] Last Admin: 09/25/18 08:58 Dose: Not Given Metoprolol Tartrate (Lopressor) 5 mg IVP Q12 [facility] Mirtazapine (Remeron) 15 mg PO HS [facility] Last Admin: 09/24/18 21:04 Dose: 15 mg Quetiapine Fumarate (Seroquel) 25 mg PO HS [facility] Last Admin: 09/24/18 21:04 Dose: 25 mg Sevelamer Carbonate (Renvela) 800 mg PO TID [facility] Last Admin: 09/25/18 08:59 Dose: Not Given Tamsulosin HCl (Flomax) 0.4 mg PO DAILY [facility] Last Admin: 09/25/18 08:58 Dose: Not Given Vitamin B Complex/Vit C/Folic Acid (Nephro-Jj) 1 tab PO DAILY [facility] Last Admin: 09/25/18 08:58 Dose: Not Given Results - Vital Signs Recent Vital Signs: Last Vital Signs Temp 98 F 09/25/18 12:28 Pulse 132 H 09/25/18 12:43 Resp 18 09/25/18 12:28 BP 97/47 L 09/25/18 12:43 Pulse Ox 99 09/25/18 12:28 - Labs Result Diagrams: 09/25/18 05:32 09/25/18 05:32 Labs: Laboratory Results - last 24 hr 09/24/18 09/25/18 09/25/18 09:45 05:32 05:32 WBC 6.5 RBC 2.61 L Hgb 8.0 L Hct 24.2 L MCV 92.6 D MCH 30.8 MCHC 33.3 RDW 17.4 H Plt Count 103 L MPV 7.5 Neut % (Auto) 72.3 Lymph % (Auto) 5.7 L [place] % (Auto) 21.9 H Eos % (Auto) 0.0 Baso % (Auto) 0.1 Neut # (Auto) 4.7 Lymph # (Auto) 0.4 L [place] # (Auto) 1.4 H Eos # (Auto) 0.0 Baso # (Auto) 0.0 Neutrophils % (Manual) 81 H Lymphocytes % (Manual) 4 L Monocytes % (Manual) 10 Metamyelocytes % 3 H Myelocytes % 2 H Nucleated RBC % 1 H Platelet Estimate Decreased L Polychromasia Slight Hypochromasia (manual) Slight Anisocytosis (manual) Slight Sodium 135 Potassium 5.2 H Chloride 105 Carbon Dioxide 17 L Anion Gap 18 BUN 94 H Creatinine 5.6 H Est GFR ( Amer) 12 Est GFR (Non-Af Amer) 10 Random Glucose 91 Calcium 7.9 L Total Bilirubin 1.2 AST 39 ALT 24 Alkaline Phosphatase 64 Total Protein 4.7 L Albumin 1.9 L Globulin 2.9 Albumin/Globulin Ratio 0.6 L Blood Type O POSITIVE Antibody Screen Negative Crossmatch See Detail BBK History Checked Patient has bt
[2018-09-26] MEDS: metroNIDAZOLE 500mg/100ml NS 100 ML IVPB SCH ×2 (00:17→08:27)
[2018-09-26] MEDS: Metoprolol 1 mg/ml Inj IVP SCH ×2 (08:21→22:24)
[2018-09-26] MEDS: Bacitracin 500 Units/gm Oint Foilpak UD TOP SCH (08:30)
[2018-09-26] MEDS: Multivitamin Vitamin B Complex (Nephro-Vite) Tab PO SCH (08:32)
[2018-09-26] MEDS ORDERED: Ciprofloxacin 200mg/100ml D5W 100 ML IVPB SCH (09:00)
--- NOTE | 2018-09-26 09:27 | CP.PCM.PN ---
Subjective - Date & Time of Evaluation Date of Evaluation: 09/26/18 Time of Evaluation: 08:30 - Subjective Subjective: The patient continues to be unresponsive to loud calling and responds sluggishly to painful stimuli The nursing staff reports that he has not been able to take any nourishment by mouth. Telemetry shows atrial fibrillation with heart rates between 100 and 140 bpm. The patient is about to receive his dose of intravenous metoprolol. His blood pressure was 110/74 mmHg. His jugular venous pressure was not elevated. There was no edema over his lower extremities. Air entry was poor at both bases. No rales were audible. Nephrology evaluation was noted. Plans need to be made regarding his long-term care given multiplicity of his medical problems and his inability to participate in making decisions regarding it. Objective - Vital Signs/Intake and Output Vital Signs (last 24 hours): Temp Pulse Resp BP Pulse Ox 97.7 F 106 H 20 100/62 99 09/26/18 07:58 09/26/18 08:30 09/26/18 07:58 09/26/18 08:30 09/26/18 07:58 - Medications Medications: Current Medications Acetaminophen (Tylenol 325mg Tab) 650 mg PO Q4 PRN PRN Reason: Fever >100.4 F Acetaminophen (Tylenol 325mg Tab) 650 mg PO Q4 PRN PRN Reason: Pain, Mild (1-3) Bacitracin (Bacitracin) 1 ea TOP DAILY [facility] Last Admin: 09/26/18 08:30 Dose: 1 ea Calcitriol (Rocaltrol) 0.25 mcg PO DAILY [facility] Last Admin: 09/26/18 08:35 Dose: 0.25 mcg Epoetin Charles (Procrit) 10,000 unit SC TTS [facility] Last Admin: 09/24/18 19:39 Dose: 10,000 unit Ferrous Gluconate (Fergon) 324 mg PO BID [facility] Last Admin: 09/26/18 08:31 Dose: Not Given Finasteride (Proscar) 5 mg PO DAILY [facility] Last Admin: 09/26/18 08:33 Dose: 5 mg Metronidazole (Flagyl 500mg/100ml Ns) 100 mls @ 100 mls/hr IVPB Q8 [facility]; Protocol Last Admin: 09/26/18 08:27 Dose: 100 mls/hr Ciprofloxacin (Cipro 200mg/100ml D5w) 100 mls @ 100 mls/hr IVPB Q12 [facility]; Protocol Last Admin: 09/26/18 08:49 Dose: 100 mls/hr Losartan Potassium (Cozaar) 50 mg PO DAILY [facility] Last Admin: 09/26/18 08:30 Dose: 50 mg Metoprolol Tartrate (Lopressor) 5 mg IVP Q12 [facility] Last Admin: 09/26/18 08:21 Dose: 5 mg Mirtazapine (Remeron) 15 mg PO HS [facility] Last Admin: 09/25/18 21:46 Dose: Not Given Quetiapine Fumarate (Seroquel) 25 mg PO HS [facility] Last Admin: 09/25/18 21:47 Dose: Not Given Sevelamer Carbonate (Renvela) 800 mg PO TID [facility] Last Admin: 09/26/18 08:33 Dose: Not Given Tamsulosin HCl (Flomax) 0.4 mg PO DAILY [facility] Last Admin: 09/26/18 08:32 Dose: 0.4 mg Vitamin B Complex/Vit C/Folic Acid (Nephro-Jj) 1 tab PO DAILY [facility] Last Admin: 09/26/18 08:32 Dose: Not Given - Labs Labs: 09/25/18 05:32 09/25/18 05:32 PT 11.9 Seconds (9.8-13.1) 09/24/18 09:45 INR 1.0 09/24/18 09:45 APTT 26.7 Seconds (25.6-37.1) 09/24/18 09:45
--- NOTE | 2018-09-26 10:40 | CP.PCM.PN ---
Subjective - Date & Time of Evaluation Date of Evaluation: 09/26/18 Time of Evaluation: 10:40 - Subjective Subjective: Patient is more awake with the Serbian translation and he was able to communicate No shortness of breath no difficulty breathing poor appetite And complaining of dysuria Objective - Vital Signs/Intake and Output Vital Signs (last 24 hours): Temp Pulse Resp BP Pulse Ox 97.7 F 106 H 20 100/62 99 09/26/18 07:58 09/26/18 08:30 09/26/18 07:58 09/26/18 08:30 09/26/18 07:58 - Medications Medications: Current Medications Acetaminophen (Tylenol 325mg Tab) 650 mg PO Q4 PRN PRN Reason: Fever >100.4 F Acetaminophen (Tylenol 325mg Tab) 650 mg PO Q4 PRN PRN Reason: Pain, Mild (1-3) Bacitracin (Bacitracin) 1 ea TOP DAILY [facility] Last Admin: 09/26/18 08:30 Dose: 1 ea Calcitriol (Rocaltrol) 0.25 mcg PO DAILY [facility] Last Admin: 09/26/18 08:35 Dose: 0.25 mcg Epoetin Charles (Procrit) 10,000 unit SC TTS [facility] Last Admin: 09/24/18 19:39 Dose: 10,000 unit Ferrous Gluconate (Fergon) 324 mg PO BID [facility] Last Admin: 09/26/18 08:31 Dose: Not Given Finasteride (Proscar) 5 mg PO DAILY [facility] Last Admin: 09/26/18 08:33 Dose: 5 mg Metronidazole (Flagyl 500mg/100ml Ns) 100 mls @ 100 mls/hr IVPB Q8 [facility]; Protocol Last Admin: 09/26/18 08:27 Dose: 100 mls/hr Ciprofloxacin (Cipro 200mg/100ml D5w) 100 mls @ 100 mls/hr IVPB Q12 [facility]; Protocol Last Admin: 09/26/18 08:49 Dose: 100 mls/hr Losartan Potassium (Cozaar) 50 mg PO DAILY [facility] Last Admin: 09/26/18 08:30 Dose: 50 mg Metoprolol Tartrate (Lopressor) 5 mg IVP Q12 [facility] Last Admin: 09/26/18 08:21 Dose: 5 mg Mirtazapine (Remeron) 15 mg PO HS [facility] Last Admin: 09/25/18 21:46 Dose: Not Given Quetiapine Fumarate (Seroquel) 25 mg PO HS [facility] Last Admin: 09/25/18 21:47 Dose: Not Given Sevelamer Carbonate (Renvela) 800 mg PO TID [facility] Last Admin: 09/26/18 08:33 Dose: Not Given Tamsulosin HCl (Flomax) 0.4 mg PO DAILY [facility] Last Admin: 09/26/18 08:32 Dose: 0.4 mg Vitamin B Complex/Vit C/Folic Acid (Nephro-Jj) 1 tab PO DAILY [facility] Last Admin: 09/26/18 08:32 Dose: Not Given - Labs Labs: 09/25/18 05:32 09/25/18 05:32 PT 11.9 Seconds (9.8-13.1) 09/24/18 09:45 INR 1.0 09/24/18 09:45 APTT 26.7 Seconds (25.6-37.1) 09/24/18 09:45 - Constitutional Appears: No Acute Distress - Eye Exam Eye Exam: Conjunctival injection - ENT Exam ENT Exam: Mucous Membranes Dry - Respiratory Exam Respiratory Exam: NORMAL BREATHING PATTERN. absent: Chest Wall Tenderness - Cardiovascular Exam Cardiovascular Exam: Irregular Rhythm. absent: Gallop, Rubs - GI/Abdominal Exam GI & Abdominal Exam: Soft, Normal Bowel Sounds. 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) Patient is uremic now Atrial fibrillation This is summary of previous admission multitude of medical problem gross hematuria severe anemia prostatic CA status post multiple cystoscopy previous admission Also for history when the patient was diagnosed with the above diagnosis he has a following treatment previous admission Pulses steroid for 3 days Rituximab 1 g twice 4 weeks apart Oral steroid Plasma phoresis And the patient continued to need dialysis s/p Amicar drip s/p cryopercipitate transfusion; goal fibrinogen > 200 - has been stable after transfusion s/p ddavp s/p vit k coagulopathy with hypofibrinogenemia previous admission leukocytosis started this weekend patient started on antibiotics vancomycin was added one does waiting for the culture. the plan Patient is more awake with the Serbian translation patient seems to be agreeable to do dialysis And he signed consent for dialysis Patient need permacath and we will schedule for hemodialysis for tomorrow. Status: Acute (3) Anemia Status: Chronic
[2018-09-26 11:04] LABS: HEMOGLOBIN 8.2 g/dL (12.0-18.0); MEAN CELL VOLUME 97.8 fl (80.0-94.0); MEAN CORPUSCULAR HEMOGLOBIN 30.7 pg (27.0-31.0); MEAN CORPUSCULAR HGB CONC 31.4 g/dL (33.0-37.0); RBC 2.66 Mil/uL (4.40-5.90); RED CELL DISTRIBUTION WIDTH 19.3 % (11.5-14.5); WHITE BLOOD COUNT 6.5 K/uL (4.8-10.8)
[2018-09-26 11:19] LABS: ALB/GLOB RATIO 0.7 (1.0-2.1); CALCIUM 7.9 mg/dL (8.4-10.2)
--- NOTE | 2018-09-26 11:25 | PN ---
DATE: 09/26/2018 SUBJECTIVE: The patient seen and examined. Interim events noted. Consults noted and appreciated. Cardiology and hospitalist intervention noted and appreciated. The patient remains in progressive care unit on telemetry monitoring. The patient is not a good historian. Denies any specific complaints. No specific issue reported by nursing staff, but the patient had . PHYSICAL EXAMINATION: GENERAL: The patient is in no acute distress. VITAL SIGNS: Stable. HEART: S1, S2 normal and regular. LUNGS: Good bilateral air exchange. ABDOMEN: Soft, nontender. EXTREMITIES: No edema, no calf swelling, no tenderness, no acute ischemia. CENTRAL NERVOUS SYSTEM: Exam is essentially unchanged. DIAGNOSTIC DATA: Available diagnostic data reviewed. Telemetry monitoring does not show significant arrhythmias. ASSESSMENT AND PLAN: Overall, the patient's general medical condition is stable. Long-term prognosis . Plan as ordered. Hans Tineo MD
[2018-09-26] MEDS ORDERED: Lidocaine 2% MPF (5 ml) Inj ONE (13:33)
[2018-09-26] MEDS ORDERED: Midazolam 2 MG/2 ML VIAL ONE (13:53)
--- NOTE | 2018-09-26 14:13 | PCM.SURG1 ---
Surgeon's Initial Post Op Note - Surgeon's Notes Surgeon: Prieto Casillas MD Bobbin Inspector: NONE Type of Anesthesia: IV Sedation Pre-Operative Diagnosis: Renal failure Operative Findings: US showed a patent right IJV Post-Operative Diagnosis: Renal failure Operation Performed: Tunneled HD catheter placed via the right IJV Specimen/Specimens Removed: None Estimated Blood Loss: EBL {In ML}: 2 Blood Products Given: N/A Drains Used: No Drains Post-Op Condition: Fair Date of Surgery/Procedure: 09/26/18 Time of Surgery/Procedure: 14:10
[2018-09-26] MEDS ORDERED: HYDROmorphone 0.5 mg/0.5 ml ISec IVP PRN (14:23)
[2018-09-26] MEDS ORDERED: Metoprolol 1 mg/ml Inj IVP ONE (17:48)
[2018-09-26] MEDS: Meropenem 1 GM in Sodium Chloride 0.9% 100 ML IVPB SCH (17:56)
[2018-09-26] MEDS ORDERED: Sodium Chloride 0.9% 1,000 ML IV SCH (21:45)
[2018-09-26] MEDS: Sodium Chloride 0.9% 1,000 ML IV SCH (22:46)
[2018-09-27] MEDS: Meropenem 1 GM in Sodium Chloride 0.9% 100 ML IVPB SCH ×4 (00:24→23:44)
[2018-09-27] MEDS ORDERED: Metoprolol 1 mg/ml Inj IVP ONE (04:38)
--- NOTE | 2018-09-27 08:15 | CP.PCM.PN ---
<Nataliya Pugh - Last Filed: 09/27/18 08:29> Subjective - Date & Time of Evaluation Date of Evaluation: 09/27/18 Time of Evaluation: 08:11 - Subjective Subjective: Tachycardia up to 150's last night, given 1x dose of Metropolol. HR currently running in the 130's Pt seen and examined by bedside this AM. No new c/p at this time, looks comfortable in bed. Objective - Vital Signs/Intake and Output Vital Signs (last 24 hours): Temp Pulse Resp BP Pulse Ox 98.0 F 134 H 18 83/55 L 99 09/27/18 04:00 09/27/18 07:22 09/27/18 04:00 09/27/18 07:22 09/27/18 04:00 Intake and Output: 09/27/18 09/27/18 06:59 18:59 Output Total 350 Balance -350 - Medications Medications: Current Medications Acetaminophen (Tylenol 325mg Tab) 650 mg PO Q4 PRN PRN Reason: Fever >100.4 F Acetaminophen (Tylenol 325mg Tab) 650 mg PO Q4 PRN PRN Reason: Pain, Mild (1-3) Bacitracin (Bacitracin) 1 ea TOP DAILY [facility] Last Admin: 09/26/18 08:30 Dose: 1 ea Calcitriol (Rocaltrol) 0.25 mcg PO DAILY [facility] Last Admin: 09/26/18 08:35 Dose: 0.25 mcg Epoetin Charles (Procrit) 10,000 unit SC TTS [facility] Last Admin: 09/24/18 19:39 Dose: 10,000 unit Ferrous Gluconate (Fergon) 324 mg PO BID [facility] Last Admin: 09/26/18 17:58 Dose: Not Given Finasteride (Proscar) 5 mg PO DAILY [facility] Last Admin: 09/26/18 08:33 Dose: 5 mg Hydromorphone HCl (Dilaudid) 0.5 mg IVP Q15M PRN PRN Reason: Pain, moderate (4-7) Meropenem 1 gm/ Sodium (Chloride) 100 mls @ 100 mls/hr IVPB Q8 [facility]; Protocol Last Admin: 09/27/18 00:24 Dose: 100 mls/hr Sodium Chloride (Sodium Chloride 0.9%) 1,000 mls @ 50 mls/hr IV .Q20H [facility] Stop: 09/27/18 21:37 Last Admin: 09/26/18 22:46 Dose: 50 mls/hr Lactobacillus Acidophilus (Bacid Acidophilus) 1 cap PO BID [facility] Losartan Potassium (Cozaar) 50 mg PO DAILY [facility] Last Admin: 09/26/18 08:30 Dose: 50 mg Metoprolol Tartrate (Lopressor) 5 mg IVP Q12 [facility] Last Admin: 09/26/18 22:24 Dose: 5 mg Metronidazole (Flagyl) 500 mg PO Q8 [facility]; Protocol Mirtazapine (Remeron) 15 mg PO [facility] Last Admin: 09/26/18 21:44 Dose: 15 mg Quetiapine Fumarate (Seroquel) 25 mg PO [facility] Last Admin: 09/26/18 21:44 Dose: 25 mg Sevelamer Carbonate (Renvela) 800 mg PO TID [facility] Last Admin: 09/26/18 17:59 Dose: Not Given Tamsulosin HCl (Flomax) 0.4 mg PO DAILY [facility] Last Admin: 09/26/18 08:32 Dose: 0.4 mg Vitamin B Complex/Vit C/Folic Acid (Nephro-Jj) 1 tab PO DAILY [facility] Last Admin: 09/26/18 08:32 Dose: Not Given - Labs Labs: 09/26/18 10:39 09/26/18 10:39 PT 11.9 Seconds (9.8-13.1) 09/24/18 09:45 INR 1.0 09/24/18 09:45 APTT 26.7 Seconds (25.6-37.1) 09/24/18 09:45 - Constitutional Appears: No Acute Distress - Head Exam Head Exam: NORMAL INSPECTION - Respiratory Exam Respiratory Exam: Clear to Ausculation Bilateral, NORMAL BREATHING PATTERN. absent: Wheezes - Cardiovascular Exam Cardiovascular Exam: Tachycardia, REGULAR RHYTHM, +S1, +S2 - GI/Abdominal Exam GI & Abdominal Exam: Soft, Normal Bowel Sounds. absent: Tenderness - Extremities Exam Extremities Exam: absent: Pedal Edema Assessment and Plan (1) Atrial fibrillation with RVR Status: Acute (2) ESRD (end stage renal disease) Status: Chronic (3) Anemia Status: Chronic (4) Hematuria Status: Acute (5) UTI (urinary tract infection) Status: Acute - Assessment and Plan (Free Text) Assessment: Assessment/Plan: 77 YO Male with PMHx of HTN, Atrial fibrillation, CHF (EF: 60%) and ESRD is admitted for anemia, ESRD, hematuria and a fib. A fib -acute on chronic, uncontrolled -tachycardia up to 150's. -Cardiology on consulted; meds appreciated -c/w current meds Anemia -acute on chronic -likely 2/2 to ESRD -s.p 2 units of PRBC -monitor cbc ESRD -acute on chronic -2/2 to interstitial renal disease, granulomatosis polyangiitis -Nephrology on board -s/p tunnel cath 09/26 -plan for HD today UTI/Hematuria (gross) -acute -Ucx growth sig for Klebsie[place], sensitivity appreciated -ID consulted; recs appreciated -c/w jorgito -urology consulted; hematuria follow up recs C. diff pos -started on metro Q8H -start probiotic HTN/CHF -chronic, controlled -c/w home meds Hx of prostatic CA -c/w meds DVT proplx: Lovenox SC Plan as ordered <Hans Tineo - Last Filed: 09/29/18 11:52> Objective - Vital Signs/Intake and Output Vital Signs (last 24 hours): Temp Pulse Resp BP Pulse Ox 97.7 F 120 H 20 90/63 L 97 09/29/18 08:42 09/29/18 09:00 09/29/18 08:42 09/29/18 08:42 09/29/18 08:42 Intake and Output: 09/28/18 09/29/18 23:59 11:59 Intake Total 1100 Output Total 200 200 Balance -200 900 - Medications Medications: Current Medications Acetaminophen (Tylenol 325mg Tab) 650 mg PO Q4 PRN PRN Reason: Fever >100.4 F Acetaminophen (Tylenol 325mg Tab) 650 mg PO Q4 PRN PRN Reason: Pain, Mild (1-3) Bacitracin (Bacitracin) 1 ea TOP DAILY [facility] Last Admin: 09/29/18 11:19 Dose: Not Given Calcitriol (Rocaltrol) 0.25 mcg PO DAILY [facility] Last Admin: 09/28/18 10:05 Dose: 0.25 mcg Epoetin Charles (Procrit) 10,000 unit SC TTS [facility] Last Admin: 09/29/18 08:20 Dose: 10,000 unit Ferrous Gluconate (Fergon) 324 mg PO BID [facility] Last Admin: 09/29/18 08:16 Dose: Not Given Finasteride (Proscar) 5 mg PO DAILY [facility] Last Admin: 09/28/18 10:05 Dose: 5 mg Heparin Sodium (Porcine) (Heparin) 5,000 units SC Q8 [facility]; Protocol Last Admin: 09/29/18 08:20 Dose: 5,000 units Hydromorphone HCl (Dilaudid) 0.5 mg IVP Q15M PRN PRN Reason: Pain, moderate (4-7) Sodium Chloride (Sodium Chloride 0.9%) 500 mls @ 150 mls/hr IV .Q3H20M [facility] Last Admin: 09/29/18 01:12 Dose: 150 mls/hr Meropenem 1 gm/ Sodium (Chloride) 100 mls @ 100 mls/hr IVPB Q8@0700,1500,2300 [facility]; Protocol Last Admin: 09/29/18 08:19 Dose: 100 mls/hr Lactobacillus Acidophilus (Bacid Acidophilus) 1 cap PO BID [facility] Last Admin: 09/29/18 08:16 Dose: Not Given Losartan Potassium (Cozaar) 50 mg PO DAILY [facility] Last Admin: 09/27/18 15:20 Dose: Not Given Metoprolol Tartrate (Lopressor) 5 mg IVP Q6 [facility] Last Admin: 09/29/18 11:19 Dose: Not Given Mirtazapine (Remeron) 15 mg PO HS [facility] Last Admin: 09/28/18 21:48 Dose: 15 mg Quetiapine Fumarate (Seroquel) 25 mg PO HS [facility] Last Admin: 09/28/18 21:48 Dose: 25 mg Sevelamer Carbonate (Renvela) 800 mg PO TID [facility] Last Admin: 09/29/18 08:21 Dose: Not Given Vancomycin HCl (Vancocin (Oral/Rectal Use)) 125 mg PO Q8 [facility]; Protocol Last Admin: 09/29/18 08:21 Dose: Not Given Vitamin B Complex/Vit C/Folic Acid (Nephro-Jj) 1 tab PO DAILY [facility] Last Admin: 09/28/18 10:05 Dose: 1 tab - Labs Labs: 09/29/18 09:00 09/29/18 09:00 PT 11.9 Seconds (9.8-13.1) 09/24/18 09:45 INR 1.0 09/24/18 09:45 APTT 26.7 Seconds (25.6-37.1) 09/24/18 09:45 Assessment and Plan - Assessment and Plan (Free Text) Assessment: Patient was personally seen and examined by me in rounds with residents. Available labs and diagnostic data reviewed. Case, Patient's condition and management plan discussed with residents in rounds. Agree with resident's progress note. Plan: As ordered.
--- NOTE | 2018-09-27 08:53 | CP.PCM.PN ---
Subjective - Date & Time of Evaluation Date of Evaluation: 09/27/18 Time of Evaluation: 08:30 - Subjective Subjective: The patient was found in bed this morning awake but uncommunicative. Answers questions with simple grunts. The patient has been declining any oral feeding and has mostly been on intravenous fluids. Telemetry shows a persistent atrial fibrillation at heart rates between 110 and 130 bpm. His jugular venous pressure was not elevated and there was no edema over sacrum. There was a brief apical systolic murmur but no gallop rhythm and no rales. Last night the patient was hypotensive and admission with intravenous fluids were given with improvement in his blood pressures. A dialysis catheter was in inserted yesterday and the patient is scheduled to undergo hemodialysis today. His labs were noted. I will increase beta blockade so as to control his heart rate better. Objective - Vital Signs/Intake and Output Vital Signs (last 24 hours): Temp Pulse Resp BP Pulse Ox 97.5 F L 82 18 93/61 L 97 09/27/18 08:25 09/27/18 08:25 09/27/18 08:25 09/27/18 08:25 09/27/18 08:25 Intake and Output: 09/27/18 09/27/18 06:59 18:59 Output Total 350 Balance -350 - Medications Medications: Current Medications Acetaminophen (Tylenol 325mg Tab) 650 mg PO Q4 PRN PRN Reason: Fever >100.4 F Acetaminophen (Tylenol 325mg Tab) 650 mg PO Q4 PRN PRN Reason: Pain, Mild (1-3) Bacitracin (Bacitracin) 1 ea TOP DAILY [facility] Last Admin: 09/26/18 08:30 Dose: 1 ea Calcitriol (Rocaltrol) 0.25 mcg PO DAILY [facility] Last Admin: 09/26/18 08:35 Dose: 0.25 mcg Enoxaparin Sodium (Lovenox) 40 mg SC DAILY [facility]; Protocol Epoetin Charles (Procrit) 10,000 unit SC TTS [facility] Last Admin: 09/24/18 19:39 Dose: 10,000 unit Ferrous Gluconate (Fergon) 324 mg PO BID [facility] Last Admin: 09/26/18 17:58 Dose: Not Given Finasteride (Proscar) 5 mg PO DAILY [facility] Last Admin: 09/26/18 08:33 Dose: 5 mg Hydromorphone HCl (Dilaudid) 0.5 mg IVP Q15M PRN PRN Reason: Pain, moderate (4-7) Meropenem 1 gm/ Sodium (Chloride) 100 mls @ 100 mls/hr IVPB Q8 [facility]; Protocol Last Admin: 09/27/18 00:24 Dose: 100 mls/hr Sodium Chloride (Sodium Chloride 0.9%) 1,000 mls @ 50 mls/hr IV .Q20H [facility] Stop: 09/27/18 21:37 Last Admin: 09/26/18 22:46 Dose: 50 mls/hr Lactobacillus Acidophilus (Bacid Acidophilus) 1 cap PO BID [facility] Losartan Potassium (Cozaar) 50 mg PO DAILY [facility] Last Admin: 09/26/18 08:30 Dose: 50 mg Metoprolol Tartrate (Lopressor) 5 mg IVP Q12 [facility] Last Admin: 09/26/18 22:24 Dose: 5 mg Metronidazole (Flagyl) 500 mg PO Q8 [facility]; Protocol Mirtazapine (Remeron) 15 mg PO HS [facility] Last Admin: 09/26/18 21:44 Dose: 15 mg Quetiapine Fumarate (Seroquel) 25 mg PO HS [facility] Last Admin: 09/26/18 21:44 Dose: 25 mg Sevelamer Carbonate (Renvela) 800 mg PO TID [facility] Last Admin: 09/26/18 17:59 Dose: Not Given Tamsulosin HCl (Flomax) 0.4 mg PO DAILY [facility] Last Admin: 09/26/18 08:32 Dose: 0.4 mg Vitamin B Complex/Vit C/Folic Acid (Nephro-Jj) 1 tab PO DAILY [facility] Last Admin: 09/26/18 08:32 Dose: Not Given - Labs Labs: 09/26/18 10:39 09/26/18 10:39 PT 11.9 Seconds (9.8-13.1) 09/24/18 09:45 INR 1.0 09/24/18 09:45 APTT 26.7 Seconds (25.6-37.1) 09/24/18 09:45
[2018-09-27] MEDS ORDERED: Enoxaparin 30 mg Syringe SC SCH (09:00)
--- NOTE | 2018-09-27 10:53 | VASCULAR ---
PROCEDURE: Date of procedure: 09/26/2018 Procedure: 1. Placement of right IJ tunneled hemodialysis catheter, CPT 22607 Medications: 1 percent lidocaine, IV sedation and physiologic monitoring performed by the anesthesiologist. EBL: 5 cm Radiation: 0.94 MGy Fluoro time: 11.1 Seconds Images: 2 HISTORY: Renal failure requiring hemodialysis TECHNIQUE: Following informed consent and procedure time-out, the patient was placed supine on the interventional table and the skin was marked . A limited ultrasound patient's right neck showed a patent compressible right internal jugular vein. Under direct ultrasound guidance, the right internal jugular vein was accessed with micropuncture technique and a guidewire was advanced under fluoroscopic guidance into the superior vena cava. An image documenting ultrasound guidance for vascular access was permanently saved. A 19 centimeter cuff to tip hemodialysis catheter was then tunneled under the skin and hold the venotomy site. The venotomy was then serially dilated to accommodate the peel-away sheath. The hemodialysis catheter was then advanced through a peel-away sheath. The catheter is positioned with tip in the superior vena cava confirm with fluoroscopic image. The catheter was tested and has adequate blood flow for hemodialysis. The catheter was flushed and locked with heparin per specified amount. The catheter secured to the skin with a 0 silk suture. IMPRESSION: Placement of right tunneled hemodialysis 19 cm cuff-to-tip catheter The catheter tip is confirmed with spot radiograph and is in the superior vena cava. The catheter is functional and ready for use.
[2018-09-27] MEDS ORDERED: Sodium Chloride 0.9% 1,000 ML IV SCH ×2 (13:45→17:00)
[2018-09-27] MEDS ORDERED: Digoxin 500 mcg/2ml (0.5 mg/2ml) Inj IVP ONE (13:52)
[2018-09-27] MEDS: Vancomycin 500 mg (Oral/Rectal USE) PO SCH ×2 (14:10→19:44)
--- NOTE | 2018-09-27 14:15 | CP.PCM.PN ---
Subjective - Date & Time of Evaluation Date of Evaluation: 09/27/18 Time of Evaluation: 14:15 - Subjective Subjective: He was seen on hemodialysis Discussed with the dialysis nurse the order Patient slightly hypotensive and IV fluid to be given now Objective - Vital Signs/Intake and Output Vital Signs (last 24 hours): Temp Pulse Resp BP Pulse Ox 97.5 F L 129 H 18 88/60 L 96 09/27/18 11:46 09/27/18 11:46 09/27/18 11:46 09/27/18 11:46 09/27/18 11:46 Intake and Output: 09/27/18 09/27/18 06:59 18:59 Output Total 350 Balance -350 - Medications Medications: Current Medications Acetaminophen (Tylenol 325mg Tab) 650 mg PO Q4 PRN PRN Reason: Fever >100.4 F Acetaminophen (Tylenol 325mg Tab) 650 mg PO Q4 PRN PRN Reason: Pain, Mild (1-3) Bacitracin (Bacitracin) 1 ea TOP DAILY [facility] Last Admin: 09/26/18 08:30 Dose: 1 ea Calcitriol (Rocaltrol) 0.25 mcg PO DAILY [facility] Last Admin: 09/26/18 08:35 Dose: 0.25 mcg Epoetin Charles (Procrit) 10,000 unit SC TTS [facility] Last Admin: 09/24/18 19:39 Dose: 10,000 unit Ferrous Gluconate (Fergon) 324 mg PO BID [facility] Last Admin: 09/26/18 17:58 Dose: Not Given Finasteride (Proscar) 5 mg PO DAILY [facility] Last Admin: 09/26/18 08:33 Dose: 5 mg Heparin Sodium (Porcine) (Heparin) 5,000 units SC Q8 [facility]; Protocol Hydromorphone HCl (Dilaudid) 0.5 mg IVP Q15M PRN PRN Reason: Pain, moderate (4-7) Meropenem 1 gm/ Sodium (Chloride) 100 mls @ 100 mls/hr IVPB Q8 [facility]; Protocol Last Admin: 09/27/18 00:24 Dose: 100 mls/hr Sodium Chloride (Sodium Chloride 0.9%) 1,000 mls @ 50 mls/hr IV .Q20H [facility] Stop: 09/27/18 21:37 Last Admin: 09/26/18 22:46 Dose: 50 mls/hr Sodium Chloride (Sodium Chloride 0.9%) 500 mls @ 150 mls/hr IV .Q3H20M [facility] Sodium Chloride (Sodium Chloride 0.9%) 1,000 mls @ 100 mls/hr IV .Q10H [facility] Stop: 09/28/18 02:59 Lactobacillus Acidophilus (Bacid Acidophilus) 1 cap PO BID [facility] Losartan Potassium (Cozaar) 50 mg PO DAILY [facility] Last Admin: 09/26/18 08:30 Dose: 50 mg Metoprolol Tartrate (Lopressor) 5 mg IVP Q6 [facility] Mirtazapine (Remeron) 15 mg PO HS [facility] Last Admin: 09/26/18 21:44 Dose: 15 mg Quetiapine Fumarate (Seroquel) 25 mg PO HS [facility] Last Admin: 09/26/18 21:44 Dose: 25 mg Sevelamer Carbonate (Renvela) 800 mg PO TID [facility] Last Admin: 09/26/18 17:59 Dose: Not Given Tamsulosin HCl (Flomax) 0.4 mg PO DAILY [facility] Last Admin: 09/26/18 08:32 Dose: 0.4 mg Vancomycin HCl (Vancocin (Oral/Rectal Use)) 125 mg PO Q8 [facility]; Protocol Vitamin B Complex/Vit C/Folic Acid (Nephro-Jj) 1 tab PO DAILY [facility] Last Admin: 09/26/18 08:32 Dose: Not Given - Labs Labs: 09/26/18 10:39 09/26/18 10:39 PT 11.9 Seconds (9.8-13.1) 09/24/18 09:45 INR 1.0 09/24/18 09:45 APTT 26.7 Seconds (25.6-37.1) 09/24/18 09:45 - Constitutional Appears: No Acute Distress - Eye Exam Eye Exam: Conjunctival injection - ENT Exam ENT Exam: Mucous Membranes Dry - Respiratory Exam Respiratory Exam: absent: Chest Wall Tenderness, Rhonchi - Cardiovascular Exam Cardiovascular Exam: absent: Gallop, JVD, Rubs - GI/Abdominal Exam GI & Abdominal Exam: Soft, Normal Bowel Sounds - Extremities Exam Extremities Exam: absent: Calf Tenderness, Pedal Edema - Back Exam Back Exam: absent: CVA tenderness (L), CVA tenderness (R) - Neurological Exam Neurological Exam: Altered - Skin Skin Exam: absent: Cyanosis Assessment and Plan (1) Atrial fibrillation with RVR Status: Acute (2) ESRD (end stage renal disease) Assessment & Plan: Dialysis note He was seen on hemodialysis discussed with the dialysis nurse to do no ultrafiltration because the patient appears to be frail and hypotensive The patient appears to be tolerating the dialysis through right subclavian catheter. Patient is awake although he appears to be confused The plan to continue hemodialysis as scheduled TTS. And to give some intrave nous IV fluid now because of the hypotension as discussed with the resident. 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) Patient is uremic now Atrial fibrillation This is summary of previous admission multitude of medical problem gross hematuria severe anemia prostatic CA status post multiple cystoscopy previous admission Also for history when the patient was diagnosed with the above diagnosis he has a following treatment previous admission Pulses steroid for 3 days Rituximab 1 g twice 4 weeks apart Oral steroid Plasma phoresis And the patient continued to need dialysis s/p Amicar drip s/p cryopercipitate transfusion; goal fibrinogen > 200 - has been stable after transfusion s/p ddavp s/p vit k Status: Chronic (3) Anemia Status: Chronic
[2018-09-27] MEDS: Lactobacillus Acidophilus 500 MU Cap PO SCH ×2 (15:18→19:06)
[2018-09-27] MEDS: Bacitracin 500 Units/gm Oint Foilpak UD TOP SCH (15:19)
[2018-09-27] MEDS: Metoprolol 1 mg/ml Inj IVP SCH ×3 (15:22→21:01)
[2018-09-27] MEDS: Multivitamin Vitamin B Complex (Nephro-Vite) Tab PO SCH (15:28)
[2018-09-27] MEDS: Sodium Chloride 0.9% 500 ML IV SCH ×4 (15:32→23:51)
[2018-09-27] MEDS: Sodium Chloride 0.9% 1,000 ML IV SCH (18:50)
[2018-09-27] MEDS: EPOETIN ALFA 10,000 UNIT/ML ML SC SCH (19:39)
[2018-09-28] MEDS: Vancomycin 500 mg (Oral/Rectal USE) PO SCH ×3 (00:39→16:36)
[2018-09-28] MEDS: Sodium Chloride 0.9% 500 ML IV SCH ×2 (05:05→16:35)
[2018-09-28] MEDS: Metoprolol 1 mg/ml Inj IVP SCH ×3 (05:05→21:47)
[2018-09-28] MEDS: Meropenem 1 GM in Sodium Chloride 0.9% 100 ML IVPB SCH ×2 (06:52→16:34)
[2018-09-28] MEDS ORDERED: Digoxin 500 mcg/2ml (0.5 mg/2ml) Inj IVP ONE ×2 (08:00→19:30)
--- NOTE | 2018-09-28 08:36 | CP.PCM.PN ---
<Nataliya Pugh - Last Filed: 09/28/18 08:36> Subjective - Date & Time of Evaluation Date of Evaluation: 09/28/18 Time of Evaluation: 08:34 - Subjective Subjective: Yesterday patient underwent HD. HR persistently in the 130's with low bp was given 1x dose of digoxin Overnight HR was in 110's-120's Pt seen and examined by bedside this AM. Offers no new c/o. Denies chest pain, abdominal pain, n/v and remains afebrile. Pt refused to have blood work drawn Objective - Vital Signs/Intake and Output Vital Signs (last 24 hours): Temp Pulse Resp BP Pulse Ox 98.3 F 116 H 18 94/60 L 99 09/28/18 01:00 09/28/18 01:00 09/28/18 01:00 09/28/18 05:05 09/28/18 01:00 - Medications Medications: Current Medications Acetaminophen (Tylenol 325mg Tab) 650 mg PO Q4 PRN PRN Reason: Fever >100.4 F Acetaminophen (Tylenol 325mg Tab) 650 mg PO Q4 PRN PRN Reason: Pain, Mild (1-3) Bacitracin (Bacitracin) 1 ea TOP DAILY [facility] Last Admin: 09/27/18 15:19 Dose: 1 ea Calcitriol (Rocaltrol) 0.25 mcg PO DAILY [facility] Last Admin: 09/27/18 15:31 Dose: 0.25 mcg Epoetin Charles (Procrit) 10,000 unit SC TTS [facility] Last Admin: 09/27/18 19:39 Dose: 10,000 unit Ferrous Gluconate (Fergon) 324 mg PO BID [facility] Last Admin: 09/27/18 19:06 Dose: Not Given Finasteride (Proscar) 5 mg PO DAILY [facility] Last Admin: 09/27/18 15:29 Dose: Not Given Heparin Sodium (Porcine) (Heparin) 5,000 units SC Q8 [facility]; Protocol Last Admin: 09/28/18 00:41 Dose: 5,000 units Hydromorphone HCl (Dilaudid) 0.5 mg IVP Q15M PRN PRN Reason: Pain, moderate (4-7) Sodium Chloride (Sodium Chloride 0.9%) 500 mls @ 150 mls/hr IV .Q3H20M [facility] Last Admin: 09/28/18 05:05 Dose: 150 mls/hr Meropenem 1 gm/ Sodium (Chloride) 100 mls @ 100 mls/hr IVPB Q8@0700,1500,2300 [facility]; Protocol Last Admin: 09/28/18 06:52 Dose: 100 mls/hr Lactobacillus Acidophilus (Bacid Acidophilus) 1 cap PO BID [facility] Last Admin: 09/27/18 19:06 Dose: Not Given Losartan Potassium (Cozaar) 50 mg PO DAILY [facility] Last Admin: 09/27/18 15:20 Dose: Not Given Metoprolol Tartrate (Lopressor) 5 mg IVP Q6 [facility] Last Admin: 09/28/18 05:05 Dose: Not Given Mirtazapine (Remeron) 15 mg PO [facility] Last Admin: 09/27/18 21:02 Dose: Not Given Quetiapine Fumarate (Seroquel) 25 mg PO [facility] Last Admin: 09/27/18 21:02 Dose: Not Given Sevelamer Carbonate (Renvela) 800 mg PO TID [facility] Last Admin: 09/27/18 19:07 Dose: Not Given Tamsulosin HCl (Flomax) 0.4 mg PO DAILY [facility] Last Admin: 09/27/18 15:22 Dose: 0.4 mg Vancomycin HCl (Vancocin (Oral/Rectal Use)) 125 mg PO Q8 [facility]; Protocol Last Admin: 09/28/18 00:39 Dose: 125 mg Vitamin B Complex/Vit C/Folic Acid (Nephro-Jj) 1 tab PO DAILY [facility] Last Admin: 09/27/18 15:28 Dose: Not Given - Labs Labs: 09/26/18 10:39 09/26/18 10:39 PT 11.9 Seconds (9.8-13.1) 09/24/18 09:45 INR 1.0 09/24/18 09:45 APTT 26.7 Seconds (25.6-37.1) 09/24/18 09:45 - Constitutional Appears: No Acute Distress - Head Exam Head Exam: NORMAL INSPECTION - Eye Exam Eye Exam: Normal appearance - Respiratory Exam Respiratory Exam: Clear to Ausculation Bilateral, NORMAL BREATHING PATTERN. absent: Wheezes - Cardiovascular Exam Cardiovascular Exam: Tachycardia, Irregular Rhythm, +S1, +S2 - GI/Abdominal Exam GI & Abdominal Exam: Soft, Normal Bowel Sounds. absent: Tenderness - Extremities Exam Extremities Exam: Normal Inspection - Neurological Exam Neurological Exam: Alert, Awake Assessment and Plan (1) Atrial fibrillation with RVR Status: Acute (2) ESRD (end stage renal disease) Status: Chronic (3) Anemia Status: Chronic (4) Hematuria Status: Acute (5) UTI (urinary tract infection) Status: Acute - Assessment and Plan (Free Text) Assessment: Assessment/Plan: 77 YO Male with PMHx of HTN, Atrial fibrillation, CHF (EF: 60%) and ESRD is admitted for anemia, ESRD, hematuria and a fib. A fib w/ RVR -acute on chronic, uncontrolled -tachycardia up to 150's, improving -digoxin x 1 yesterday and 1 ordered today -Cardiology on consulted; meds appreciated, okay for digoxin 0.25IVP -c/w current meds Anemia -acute on chronic -likely 2/2 to ESRD, hematuria, malignancy -s/p 2 units of PRBC -monitor cbc ESRD -acute on chronic -2/2 to interstitial renal disease, granulomatosis polyangiitis -Nephrology on board -s/p tunnel cath 09/26 -s/p HD 09/27 UTI/Hematuria (gross) -acute -Ucx growth sig for Klebsiealla, sensitivity appreciated -ID consulted; recs appreciated -c/w jorgito -urology consulted; hematuria follow up recs C. diff pos -Per ID, started in PO vanc -c/w probiotic HTN/CHF -chronic, controlled -c/w home meds DVT proplx: Heparin SC Plan as ordered <Hans Tineo - Last Filed: 09/29/18 11:49> Objective - Vital Signs/Intake and Output Vital Signs (last 24 hours): Temp Pulse Resp BP Pulse Ox 97.7 F 120 H 20 90/63 L 97 09/29/18 08:42 09/29/18 09:00 09/29/18 08:42 09/29/18 08:42 09/29/18 08:42 Intake and Output: 09/28/18 09/29/18 23:59 11:59 Intake Total 1100 Output Total 200 200 Balance -200 900 - Medications Medications: Current Medications Acetaminophen (Tylenol 325mg Tab) 650 mg PO Q4 PRN PRN Reason: Fever >100.4 F Acetaminophen (Tylenol 325mg Tab) 650 mg PO Q4 PRN PRN Reason: Pain, Mild (1-3) Bacitracin (Bacitracin) 1 ea TOP DAILY [facility] Last Admin: 09/29/18 11:19 Dose: Not Given Calcitriol (Rocaltrol) 0.25 mcg PO DAILY [facility] Last Admin: 09/28/18 10:05 Dose: 0.25 mcg Epoetin Charles (Procrit) 10,000 unit SC TTS [facility] Last Admin: 09/29/18 08:20 Dose: 10,000 unit Ferrous Gluconate (Fergon) 324 mg PO BID [facility] Last Admin: 09/29/18 08:16 Dose: Not Given Finasteride (Proscar) 5 mg PO DAILY [facility] Last Admin: 09/28/18 10:05 Dose: 5 mg Heparin Sodium (Porcine) (Heparin) 5,000 units SC Q8 [facility]; Protocol Last Admin: 09/29/18 08:20 Dose: 5,000 units Hydromorphone HCl (Dilaudid) 0.5 mg IVP Q15M PRN PRN Reason: Pain, moderate (4-7) Sodium Chloride (Sodium Chloride 0.9%) 500 mls @ 150 mls/hr IV .Q3H20M [facility] Last Admin: 09/29/18 01:12 Dose: 150 mls/hr Meropenem 1 gm/ Sodium (Chloride) 100 mls @ 100 mls/hr IVPB Q8@0700,1500,2300 [facility]; Protocol Last Admin: 09/29/18 08:19 Dose: 100 mls/hr Lactobacillus Acidophilus (Bacid Acidophilus) 1 cap PO BID [facility] Last Admin: 09/29/18 08:16 Dose: Not Given Losartan Potassium (Cozaar) 50 mg PO DAILY [facility] Last Admin: 09/27/18 15:20 Dose: Not Given Metoprolol Tartrate (Lopressor) 5 mg IVP Q6 [facility] Last Admin: 09/29/18 11:19 Dose: Not Given Mirtazapine (Remeron) 15 mg PO HS [facility] Last Admin: 09/28/18 21:48 Dose: 15 mg Quetiapine Fumarate (Seroquel) 25 mg PO HS [facility] Last Admin: 09/28/18 21:48 Dose: 25 mg Sevelamer Carbonate (Renvela) 800 mg PO TID [facility] Last Admin: 09/29/18 08:21 Dose: Not Given Vancomycin HCl (Vancocin (Oral/Rectal Use)) 125 mg PO Q8 [facility]; Protocol Last Admin: 09/29/18 08:21 Dose: Not Given Vitamin B Complex/Vit C/Folic Acid (Nephro-Jj) 1 tab PO DAILY [facility] Last Admin: 09/28/18 10:05 Dose: 1 tab - Labs Labs: 09/29/18 09:00 09/29/18 09:00 PT 11.9 Seconds (9.8-13.1) 09/24/18 09:45 INR 1.0 09/24/18 09:45 APTT 26.7 Seconds (25.6-37.1) 09/24/18 09:45 Assessment and Plan - Assessment and Plan (Free Text) Assessment: Patient was personally seen and examined by me in rounds with residents. Available labs and diagnostic data reviewed. Case, Patient's condition and management plan discussed with residents in rounds. Agree with resident's progress note. Plan: As ordered.
--- NOTE | 2018-09-28 09:43 | CP.PCM.PN ---
Subjective - Date & Time of Evaluation Date of Evaluation: 09/28/18 Time of Evaluation: 09:00 - Subjective Subjective: The patient was found in bed propped up and eating his breakfast. Answers simple questions appropriately. He underwent hemodialysis yesterday. Continues to show a persistent tachycardia at a heart rate between 110 and 130 bpm and was given a dose of 0.25 mg of digoxin yesterday. The patient also received Midodrin which could contribute to tachycardia. The patient has been on Flomax in spite of having a Banks catheter in place. Afebrile with atrial fibrillation and a heart rate of 120 bpm. His blood pressure was 94/70 mmHg. Jugular venous pressure was not elevated and there was no sacral edema. A second dose of 0.25 mg of digoxin will be given today I have discontinued tamsulosin (while the patient has a Banks catheter in place ) since his systolic blood pressure barely crosses 100 mmHg. He is scheduled for hemodialysis tomorrow. Objective - Vital Signs/Intake and Output Vital Signs (last 24 hours): Temp Pulse Resp BP Pulse Ox 98.0 F 112 H 20 92/53 L 97 09/28/18 08:45 09/28/18 08:45 09/28/18 08:45 09/28/18 08:45 09/28/18 08:45 - Medications Medications: Current Medications Acetaminophen (Tylenol 325mg Tab) 650 mg PO Q4 PRN PRN Reason: Fever >100.4 F Acetaminophen (Tylenol 325mg Tab) 650 mg PO Q4 PRN PRN Reason: Pain, Mild (1-3) Bacitracin (Bacitracin) 1 ea TOP DAILY [facility] Last Admin: 09/27/18 15:19 Dose: 1 ea Calcitriol (Rocaltrol) 0.25 mcg PO DAILY [facility] Last Admin: 09/27/18 15:31 Dose: 0.25 mcg Epoetin Charles (Procrit) 10,000 unit SC TTS [facility] Last Admin: 09/27/18 19:39 Dose: 10,000 unit Ferrous Gluconate (Fergon) 324 mg PO BID [facility] Last Admin: 09/27/18 19:06 Dose: Not Given Finasteride (Proscar) 5 mg PO DAILY [facility] Last Admin: 09/27/18 15:29 Dose: Not Given Heparin Sodium (Porcine) (Heparin) 5,000 units SC Q8 [facility]; Protocol Last Admin: 09/28/18 00:41 Dose: 5,000 units Hydromorphone HCl (Dilaudid) 0.5 mg IVP Q15M PRN PRN Reason: Pain, moderate (4-7) Sodium Chloride (Sodium Chloride 0.9%) 500 mls @ 150 mls/hr IV .Q3H20M [facility] Last Admin: 09/28/18 05:05 Dose: 150 mls/hr Meropenem 1 gm/ Sodium (Chloride) 100 mls @ 100 mls/hr IVPB Q8@0700,1500,2300 [facility]; Protocol Last Admin: 09/28/18 06:52 Dose: 100 mls/hr Lactobacillus Acidophilus (Bacid Acidophilus) 1 cap PO BID [facility] Last Admin: 09/27/18 19:06 Dose: Not Given Losartan Potassium (Cozaar) 50 mg PO DAILY [facility] Last Admin: 09/27/18 15:20 Dose: Not Given Metoprolol Tartrate (Lopressor) 5 mg IVP Q6 [facility] Last Admin: 09/28/18 05:05 Dose: Not Given Mirtazapine (Remeron) 15 mg PO HS [facility] Last Admin: 09/27/18 21:02 Dose: Not Given Quetiapine Fumarate (Seroquel) 25 mg PO HS [facility] Last Admin: 09/27/18 21:02 Dose: Not Given Sevelamer Carbonate (Renvela) 800 mg PO TID [facility] Last Admin: 09/27/18 19:07 Dose: Not Given Vancomycin HCl (Vancocin (Oral/Rectal Use)) 125 mg PO Q8 [facility]; Protocol Last Admin: 09/28/18 00:39 Dose: 125 mg Vitamin B Complex/Vit C/Folic Acid (Nephro-Jj) 1 tab PO DAILY [facility] Last Admin: 09/27/18 15:28 Dose: Not Given - Labs Labs: 09/26/18 10:39 09/26/18 10:39 PT 11.9 Seconds (9.8-13.1) 09/24/18 09:45 INR 1.0 09/24/18 09:45 APTT 26.7 Seconds (25.6-37.1) 09/24/18 09:45
[2018-09-28] MEDS: Bacitracin 500 Units/gm Oint Foilpak UD TOP SCH (10:02)
[2018-09-28] MEDS: Multivitamin Vitamin B Complex (Nephro-Vite) Tab PO SCH (10:05)
--- NOTE | 2018-09-28 10:36 | CP.PCM.PN ---
Subjective - Date & Time of Evaluation Date of Evaluation: 09/28/18 Time of Evaluation: 10:36 - Subjective Subjective: Patient sitting up in bed Patient awake and conscious and answering some question Appetite reported to be adequate no nausea no vomiting no chest pain Vital signs noted Objective - Vital Signs/Intake and Output Vital Signs (last 24 hours): Temp Pulse Resp BP Pulse Ox 98.0 F 130 H 20 92/53 L 97 09/28/18 08:45 09/28/18 10:04 09/28/18 08:45 09/28/18 10:04 09/28/18 08:45 - Medications Medications: Current Medications Acetaminophen (Tylenol 325mg Tab) 650 mg PO Q4 PRN PRN Reason: Fever >100.4 F Acetaminophen (Tylenol 325mg Tab) 650 mg PO Q4 PRN PRN Reason: Pain, Mild (1-3) Bacitracin (Bacitracin) 1 ea TOP DAILY [facility] Last Admin: 09/28/18 10:02 Dose: 1 ea Calcitriol (Rocaltrol) 0.25 mcg PO DAILY [facility] Last Admin: 09/28/18 10:05 Dose: 0.25 mcg Epoetin Charles (Procrit) 10,000 unit SC TTS [facility] Last Admin: 09/27/18 19:39 Dose: 10,000 unit Ferrous Gluconate (Fergon) 324 mg PO BID [facility] Last Admin: 09/28/18 10:03 Dose: 324 mg Finasteride (Proscar) 5 mg PO DAILY [facility] Last Admin: 09/28/18 10:05 Dose: 5 mg Heparin Sodium (Porcine) (Heparin) 5,000 units SC Q8 [facility]; Protocol Last Admin: 09/28/18 10:03 Dose: 5,000 units Hydromorphone HCl (Dilaudid) 0.5 mg IVP Q15M PRN PRN Reason: Pain, moderate (4-7) Sodium Chloride (Sodium Chloride 0.9%) 500 mls @ 150 mls/hr IV .Q3H20M [facility] Last Admin: 09/28/18 05:05 Dose: 150 mls/hr Meropenem 1 gm/ Sodium (Chloride) 100 mls @ 100 mls/hr IVPB Q8@0700,1500,2300 [facility]; Protocol Last Admin: 09/28/18 06:52 Dose: 100 mls/hr Lactobacillus Acidophilus (Bacid Acidophilus) 1 cap PO BID [facility] Last Admin: 09/27/18 19:06 Dose: Not Given Losartan Potassium (Cozaar) 50 mg PO DAILY [facility] Last Admin: 09/27/18 15:20 Dose: Not Given Metoprolol Tartrate (Lopressor) 5 mg IVP Q6 [facility] Last Admin: 09/28/18 10:04 Dose: 5 mg Mirtazapine (Remeron) 15 mg PO HS [facility] Last Admin: 09/27/18 21:02 Dose: Not Given Quetiapine Fumarate (Seroquel) 25 mg PO HS [facility] Last Admin: 09/27/18 21:02 Dose: Not Given Sevelamer Carbonate (Renvela) 800 mg PO TID [facility] Last Admin: 09/28/18 10:05 Dose: 800 mg Vancomycin HCl (Vancocin (Oral/Rectal Use)) 125 mg PO Q8 [facility]; Protocol Last Admin: 09/28/18 10:06 Dose: 125 mg Vitamin B Complex/Vit C/Folic Acid (Nephro-Jj) 1 tab PO DAILY [facility] Last Admin: 09/28/18 10:05 Dose: 1 tab - Labs Labs: 09/26/18 10:39 09/26/18 10:39 PT 11.9 Seconds (9.8-13.1) 09/24/18 09:45 INR 1.0 09/24/18 09:45 APTT 26.7 Seconds (25.6-37.1) 09/24/18 09:45 - Constitutional Appears: No Acute Distress - Eye Exam Eye Exam: Conjunctival injection - ENT Exam ENT Exam: Mucous Membranes Moist - Neck Exam Neck Exam: absent: Lymphadenopathy - Cardiovascular Exam Cardiovascular Exam: absent: Gallop, JVD, Rubs - GI/Abdominal Exam GI & Abdominal Exam: Soft, Normal Bowel Sounds - Extremities Exam Extremities Exam: absent: Calf Tenderness - Back Exam Back Exam: absent: CVA tenderness (L), CVA tenderness (R) - Neurological Exam Neurological Exam: Awake - Skin Skin Exam: absent: Cyanosis Assessment and Plan (1) Atrial fibrillation with RVR Status: Acute (2) ESRD (end stage renal disease) Assessment & Plan: 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) Atrial fibrillation anemia Plan Continue EPO for anemia As per primary team with the antibiotics and management of cardiac arrhythmia atrial fibrillation This is summary of previous admission multitude of medical problem gross hematuria severe anemia prostatic CA status post multiple cystoscopy previous admission Also for history when the patient was diagnosed with the above diagnosis he has a following treatment previous admission Pulses steroid for 3 days Rituximab 1 g twice 4 weeks apart Oral steroid Plasma phoresis And the patient continued to need dialysis s/p Amicar drip s/p cryopercipitate transfusion; goal fibrinogen > 200 - has been stable after transfusion s/p ddavp s/p vit k Status: Chronic (3) Anemia Status: Chronic
--- NOTE | 2018-09-28 11:06 | CARD ---
APPROVED REPORT Date of service: 09/28/2018 EKG Measurement Heart [id number] <Conclusion> Atrial fibrillation with rapid ventricular response Low voltage QRS Nonspecific ST and T wave abnormality Abnormal ECG
--- NOTE | 2018-09-28 11:46 | CP.PCM.CON ---
History of Present Illness - History of Present Illness History of Present Illness: 77-year-old man was transferred to the emergency room from residential because of low blood pressure He was admitted for sepsis / UTI grew ESBL in urine now has C Diff PMH- CKD HTN Review of Systems - Constitutional Constitutional: As Per HPI - EENT Eyes: absent: As Per HPI, Blind Spots, Blurred Vision, Change in Vision, Decreased Night Vision, Diplopia, Discharge, Dry Eye, Exophthalmos, Floaters, Irritation, Itchy Eyes, Loss of Peripheral Vision, Pain, Photophobia, Requires Corrective Lenses, Sees Flashes, Spots in Vision, Tunnel Vision, Other Visual Disturbances, Loss of Vision, Other Ears: absent: As Per HPI, Decreased Hearing, Ear Discharge, Ear Pain, Tinnitus, Abnormal Hearing, Disequilibrium, Dizziness, Other Nose/Mouth/Throat: absent: As Per HPI, Epistaxis, Nasal Congestion, Nasal Discharge, Nasal Obstruction, Nasal Trauma, Nose Pain, Post Nasal Drip, Sinus Pain, Sinus Pressure, Bleeding Gums, Change in Voice, Dental Pain, Dry Mouth, Dysphagia, Halitosis, Hoarsness, Lip Swelling, Mouth Lesions, Mouth Pain, Odynophagia, Sore Throat, Throat Swelling, Tongue Swelling, Facial Pain, Neck Pain, Neck Mass, Other - Cardiovascular Cardiovascular: absent: As Per HPI, Acrocyanosis, Chest Pain, Chest Pain at Rest, Chest Pain with Activity, Claudication, Diaphoresis, Dyspnea, Dyspnea on Exertion, Edema, Irregular Heart Rhythm, Pain Radiating to Arm/Neck/Jaw, Leg Edema, Leg Ulcers, Lightheadedness, Orthopnea, Palpitations, Paroxysmal Nocturnal Dyspnea, Pedal Edema, Radiating Pain, Rapid Heart Rate, Slow Heart Ra te, Syncope, Other - Respiratory Respiratory: absent: As Per HPI, Cough, Dyspnea, Hemoptysis, Dyspnea on Exertion, Wheezing, Snoring, Stridor, Pain on Inspiration, Chest Congestion, Excessive Mucous Production, Change in Mucous Color, Pain with Coughing, Other - Gastrointestinal Gastrointestinal: As Per HPI - Genitourinary Genitourinary: As Per HPI - Musculoskeletal Musculoskeletal: absent: As Per HPI, Abnormal Gait, Arthralgias, Atrophy, Back Pain, Deformity, Joint Swelling, Limited Range of Motion, Loss of Height, Muscle Cramps, Muscle Weakness, Myalgias, Neck Pain, Numbness, Radiating Pain into Limb, Stiffness, Tingling, Other - Integumentary Integumentary: absent: As Per HPI, Acne, Alopecia, Bleeding Lesions, Change in Hair, Change in Nails, Change in Pigmentation, Changing Lesions, Dry Skin, Erythema, Furuncle, Hirsutism, Lesions, New Lesions, Non-Healing Lesions, Photosensitivity, Pruritus, Rash, Skin Pain, Skin Ulcer, Sores, Striae, Swelling, Unusual Bruising, Wounds, Jaundice, Other - Neurological Neurological: As Per HPI - Psychiatric Psychiatric: absent: As Per HPI, Abnormal Sleep Pattern, Anhedonia, Anxiety, Auditory Hallucinations, Behavioral Changes, Change in Appetite, Change in Libido, Confusion, Depression, Difficulty Concentrating, Hallucinations, Homicidal Ideation, Hopelessness, Irritability, Memory Loss, Mood Swings, Panic Attacks, Paranoia, Suicidal Ideation, Visual Hallucinations, Tactile Hallucinations, Other - Endocrine Endocrine: absent: As Per HPI, Change in Body Appearance, Change in Libido, Cold Intolorance, Deepening of Voice, Excessive Sweating, Fatigue, Flushing, Heat Intolorance, Increase in Ring/Shoe/Hat Size, Palpitations, Polydipsia, Polyphagia, Polyuria, Other - Hematologic/Lymphatic Hematologic: absent: As Per HPI, Easy Bleeding, Easy Bruising, Lymphadenopathy, Other Past Patient History - Infectious Disease Hx of Infectious Diseases: None - Past Medical History & Family History Past Medical History?: Yes - Past Social History Smoking Status: Former Smoker - CARDIAC Hx Atrial Fibrillation: Yes Hx Congestive Heart Failure: Yes Hx Hypertension: Yes - PULMONARY Hx Respiratory Disorders: No - NEUROLOGICAL Hx Neurological Disorder: No - HEENT Hx HEENT Problems: Yes - RENAL Hx Chronic Kidney Disease: Yes - ENDOCRINE/METABOLIC Hx Endocrine Disorders: Yes - HEMATOLOGICAL/ONCOLOGICAL Hx AIDS: No Hx Anemia: Yes Hx Human Immunodeficiency Virus (HIV): No - INTEGUMENTARY Hx Dermatological Problems: No - MUSCULOSKELETAL/RHEUMATOLOGICAL Hx Arthritis: Yes Hx Falls: Yes - GASTROINTESTINAL Hx Gastrointestinal Disorders: No - GENITOURINARY/GYNECOLOGICAL Hx Genitourinary Disorders: Yes (RETENTION BUTLER TO SGD) - PSYCHIATRIC Hx Psychophysiologic Disorder: No Hx Substance Use: No - SURGICAL HISTORY Hx Appendectomy: Yes - ANESTHESIA Hx Anesthesia: Yes Hx Anesthesia Reactions: No Hx Malignant Hyperthermia: No Meds Allergies/Adverse Reactions: Allergies Allergy/AdvReac Type Severity Reaction Status Date / Time No Known Allergies Allergy Verified 09/24/18 09:26 - Medications Medications: Current Medications Acetaminophen (Tylenol 325mg Tab) 650 mg PO Q4 PRN PRN Reason: Fever >100.4 F Acetaminophen (Tylenol 325mg Tab) 650 mg PO Q4 PRN PRN Reason: Pain, Mild (1-3) Bacitracin (Bacitracin) 1 ea TOP DAILY [facility] Last Admin: 09/28/18 10:02 Dose: 1 ea Calcitriol (Rocaltrol) 0.25 mcg PO DAILY [facility] Last Admin: 09/28/18 10:05 Dose: 0.25 mcg Epoetin Charles (Procrit) 10,000 unit SC TTS [facility] Last Admin: 09/27/18 19:39 Dose: 10,000 unit Ferrous Gluconate (Fergon) 324 mg PO BID [facility] Last Admin: 09/28/18 10:03 Dose: 324 mg Finasteride (Proscar) 5 mg PO DAILY [facility] Last Admin: 09/28/18 10:05 Dose: 5 mg Heparin Sodium (Porcine) (Heparin) 5,000 units SC Q8 [facility]; Protocol Last Admin: 09/28/18 10:03 Dose: 5,000 units Hydromorphone HCl (Dilaudid) 0.5 mg IVP Q15M PRN PRN Reason: Pain, moderate (4-7) Sodium Chloride (Sodium Chloride 0.9%) 500 mls @ 150 mls/hr IV .Q3H20M [facility] Last Admin: 09/28/18 05:05 Dose: 150 mls/hr Meropenem 1 gm/ Sodium (Chloride) 100 mls @ 100 mls/hr IVPB Q8@0700,1500,2300 [facility]; Protocol Last Admin: 09/28/18 06:52 Dose: 100 mls/hr Lactobacillus Acidophilus (Bacid Acidophilus) 1 cap PO BID [facility] Last Admin: 09/27/18 19:06 Dose: Not Given Losartan Potassium (Cozaar) 50 mg PO DAILY [facility] Last Admin: 09/27/18 15:20 Dose: Not Given Metoprolol Tartrate (Lopressor) 5 mg IVP Q6 [facility] Last Admin: 09/28/18 10:04 Dose: 5 mg Mirtazapine (Remeron) 15 mg PO HS [facility] Last Admin: 09/27/18 21:02 Dose: Not Given Quetiapine Fumarate (Seroquel) 25 mg PO HS [facility] Last Admin: 09/27/18 21:02 Dose: Not Given Sevelamer Carbonate (Renvela) 800 mg PO TID [facility] Last Admin: 09/28/18 10:05 Dose: 800 mg Vancomycin HCl (Vancocin (Oral/Rectal Use)) 125 mg PO Q8 [facility]; Protocol Last Admin: 09/28/18 10:06 Dose: 125 mg Vitamin B Complex/Vit C/Folic Acid (Nephro-Jj) 1 tab PO DAILY [facility] Last Admin: 09/28/18 10:05 Dose: 1 tab Physical Exam - Constitutional Appears: Non-toxic, Confused, Cachectic, Chronically Ill - Head Exam Head Exam: ATRAUMATIC, NORMAL INSPECTION, NORMOCEPHALIC - Eye Exam Eye Exam: PERRL. absent: Scleral icterus - ENT Exam ENT Exam: Mucous Membranes Dry - Neck Exam Neck exam: Negative for: Lymphadenopathy - Respiratory Exam Respiratory Exam: Decreased Breath Sounds, Prolonged Expiratory Phase, Rhonchi - Cardiovascular Exam Cardiovascular Exam: REGULAR RHYTHM, +S1, +S2 - GI/Abdominal Exam GI & Abdominal Exam: Diminished Bowel Sounds, Soft. absent: Guarding, Rebound, Rigid, Tenderness - Rectal Exam Rectal Exam: Deferred - Exam Exam: NORMAL INSPECTION - Extremities Exam Extremities exam: Negative for: pedal edema - Back Exam Back exam: absent: CVA tenderness (L), CVA tenderness (R), paraspinal tenderness - Neurological Exam Neurological exam: Alert, CN II-XII Intact, Oriented x3, Reflexes Normal - Psychiatric Exam Psychiatric exam: Depressed - Skin Skin Exam: Dry Results - Vital Signs Recent Vital Signs: Last Vital Signs Temp 98 F 09/28/18 09:00 Pulse 130 H 09/28/18 10:04 Resp 20 09/28/18 09:00 BP 92/53 L 09/28/18 10:04 Pulse Ox 97 09/28/18 09:00 - Labs Result Diagrams: 09/26/18 10:39 09/26/18 10:39 Assessment & Plan (1) Atrial fibrillation with RVR Status: Acute (2) Anemia Status: Chronic (3) ESRD (end stage renal disease) Status: Chronic (4) Acute on chronic renal failure Status: Acute Priority: High (5) Hepatitis C Status: Acute - Assessment and Plan (Free Text) Assessment: cont Merrem for ESBL urine eval cont PO Vanco for c diff x 10 days
[2018-09-28] MEDS: Lactobacillus Acidophilus 500 MU Cap PO SCH ×3 (11:49→16:40)
[2018-09-28 11:50] VITALS: PULSE 118
[2018-09-29] MEDS: Meropenem 1 GM in Sodium Chloride 0.9% 100 ML IVPB SCH ×4 (00:57→23:40)
[2018-09-29] MEDS: Vancomycin 500 mg (Oral/Rectal USE) PO SCH ×3 (00:58→16:42)
[2018-09-29] MEDS: Sodium Chloride 0.9% 500 ML IV SCH (01:12)
[2018-09-29] MEDS: Metoprolol 1 mg/ml Inj IVP SCH ×4 (05:40→21:32)
--- NOTE | 2018-09-29 07:29 | CP.PCM.PN ---
<Nataliya Pugh - Last Filed: 09/29/18 08:34> Subjective - Date & Time of Evaluation Date of Evaluation: 09/29/18 Time of Evaluation: 07:27 - Subjective Subjective: No acute overnight events. Pt seen and examined by beside this AM No new c/o this AM. Pt states that he is doing well, denies chest pain. HD today Objective - Vital Signs/Intake and Output Vital Signs (last 24 hours): Temp Pulse Resp BP Pulse Ox 97.5 F L 120 H 18 98/70 L 99 09/29/18 05:00 09/29/18 05:40 09/29/18 05:00 09/29/18 05:40 09/29/18 05:00 Intake and Output: 09/29/18 09/29/18 06:59 18:59 Intake Total 1000 Output Total 200 Balance 800 - Medications Medications: Current Medications Acetaminophen (Tylenol 325mg Tab) 650 mg PO Q4 PRN PRN Reason: Fever >100.4 F Acetaminophen (Tylenol 325mg Tab) 650 mg PO Q4 PRN PRN Reason: Pain, Mild (1-3) Bacitracin (Bacitracin) 1 ea TOP DAILY [facility] Last Admin: 09/28/18 10:02 Dose: 1 ea Calcitriol (Rocaltrol) 0.25 mcg PO DAILY [facility] Last Admin: 09/28/18 10:05 Dose: 0.25 mcg Epoetin Charles (Procrit) 10,000 unit SC TTS [facility] Last Admin: 09/27/18 19:39 Dose: 10,000 unit Ferrous Gluconate (Fergon) 324 mg PO BID [facility] Last Admin: 09/28/18 16:34 Dose: 324 mg Finasteride (Proscar) 5 mg PO DAILY [facility] Last Admin: 09/28/18 10:05 Dose: 5 mg Heparin Sodium (Porcine) (Heparin) 5,000 units SC Q8 [facility]; Protocol Last Admin: 09/29/18 00:58 Dose: 5,000 units Hydromorphone HCl (Dilaudid) 0.5 mg IVP Q15M PRN PRN Reason: Pain, moderate (4-7) Sodium Chloride (Sodium Chloride 0.9%) 500 mls @ 150 mls/hr IV .Q3H20M [facility] Last Admin: 09/29/18 01:12 Dose: 150 mls/hr Meropenem 1 gm/ Sodium (Chloride) 100 mls @ 100 mls/hr IVPB Q8@0700,1500,2300 [facility]; Protocol Last Admin: 09/29/18 00:57 Dose: 100 mls/hr Lactobacillus Acidophilus (Bacid Acidophilus) 1 cap PO BID [facility] Last Admin: 09/28/18 16:40 Dose: Not Given Losartan Potassium (Cozaar) 50 mg PO DAILY [facility] Last Admin: 09/27/18 15:20 Dose: Not Given Metoprolol Tartrate (Lopressor) 5 mg IVP Q6 [facility] Last Admin: 09/29/18 05:40 Dose: Not Given Mirtazapine (Remeron) 15 mg PO HS [facility] Last Admin: 09/28/18 21:48 Dose: 15 mg Quetiapine Fumarate (Seroquel) 25 mg PO [facility] Last Admin: 09/28/18 21:48 Dose: 25 mg Sevelamer Carbonate (Renvela) 800 mg PO TID [facility] Last Admin: 09/28/18 13:18 Dose: 800 mg Vancomycin HCl (Vancocin (Oral/Rectal Use)) 125 mg PO Q8 [facility]; Protocol Last Admin: 09/29/18 00:58 Dose: 125 mg Vitamin B Complex/Vit C/Folic Acid (Nephro-Jj) 1 tab PO DAILY [facility] Last Admin: 09/28/18 10:05 Dose: 1 tab - Labs Labs: 09/26/18 10:39 09/26/18 10:39 PT 11.9 Seconds (9.8-13.1) 09/24/18 09:45 INR 1.0 09/24/18 09:45 APTT 26.7 Seconds (25.6-37.1) 09/24/18 09:45 - Constitutional Appears: No Acute Distress - Head Exam Head Exam: NORMAL INSPECTION - ENT Exam ENT Exam: Mucous Membranes Moist - Respiratory Exam Respiratory Exam: Clear to Ausculation Bilateral, NORMAL BREATHING PATTERN. absent: Wheezes - Cardiovascular Exam Cardiovascular Exam: REGULAR RHYTHM, +S1, +S2 - GI/Abdominal Exam GI & Abdominal Exam: Soft, Normal Bowel Sounds. absent: Tenderness - Extremities Exam Extremities Exam: Normal Inspection. absent: Calf Tenderness, Pedal Edema - Neurological Exam Neurological Exam: Alert, Awake Assessment and Plan (1) Atrial fibrillation with RVR Status: Acute (2) ESRD (end stage renal disease) Status: Chronic (3) Anemia Status: Chronic (4) Hematuria Status: Acute (5) UTI (urinary tract infection) Status: Acute - Assessment and Plan (Free Text) Assessment: Assessment/Plan: 77 YO Male with PMHx of HTN, Atrial fibrillation, CHF (EF: 60%) and ESRD is admitted for anemia, ESRD, hematuria and a fib. A fib w/ RVR -acute on chronic, uncontrolled -tachycardia improving -will consider additional digoxin if needed (09/27-09/28) -Cardiology on consulted; recs appreciated -c/w current meds UTI-ESBL/Hematuria (gross) -acute -Ucx growth sig for Klebsie[place], sensitivity appreciated -ID consulted; recs appreciated, c/w jorgito and PO Vanc x 10 days -urology consulted; hematuria follow up recs ESRD -acute on chronic -2/2 to interstitial renal disease, granulomatosis polyangiitis -Nephrology on board -s/p tunnel cath 09/26 -HD to be done on [facility] (-09/27) Anemia -acute on chronic -likely 2/2 to ESRD, hematuria, malignancy -s/p 2 units of PRBC, on epo per nephro C. diff pos -Per ID, started in PO vanc (started on 09/27) -c/w probiotic HTN/CHF -chronic, controlled -c/w home meds DVT proplx: Heparin SC Plan as ordered <Hans Tineo - Last Filed: 09/29/18 11:45> Objective - Vital Signs/Intake and Output Vital Signs (last 24 hours): Temp Pulse Resp BP Pulse Ox 97.7 F 120 H 20 90/63 L 97 09/29/18 08:42 09/29/18 09:00 09/29/18 08:42 09/29/18 08:42 09/29/18 08:42 Intake and Output: 09/28/18 09/29/18 23:59 11:59 Intake Total 1100 Output Total 200 200 Balance -200 900 - Medications Medications: Current Medications Acetaminophen (Tylenol 325mg Tab) 650 mg PO Q4 PRN PRN Reason: Fever >100.4 F Acetaminophen (Tylenol 325mg Tab) 650 mg PO Q4 PRN PRN Reason: Pain, Mild (1-3) Bacitracin (Bacitracin) 1 ea TOP DAILY [facility] Last Admin: 09/29/18 11:19 Dose: Not Given Calcitriol (Rocaltrol) 0.25 mcg PO DAILY [facility] Last Admin: 09/28/18 10:05 Dose: 0.25 mcg Epoetin Charles (Procrit) 10,000 unit SC TTS [facility] Last Admin: 09/29/18 08:20 Dose: 10,000 unit Ferrous Gluconate (Fergon) 324 mg PO BID [facility] Last Admin: 09/29/18 08:16 Dose: Not Given Finasteride (Proscar) 5 mg PO DAILY [facility] Last Admin: 09/28/18 10:05 Dose: 5 mg Heparin Sodium (Porcine) (Heparin) 5,000 units SC Q8 [facility]; Protocol Last Admin: 09/29/18 08:20 Dose: 5,000 units Hydromorphone HCl (Dilaudid) 0.5 mg IVP Q15M PRN PRN Reason: Pain, moderate (4-7) Sodium Chloride (Sodium Chloride 0.9%) 500 mls @ 150 mls/hr IV .Q3H20M [facility] Last Admin: 09/29/18 01:12 Dose: 150 mls/hr Meropenem 1 gm/ Sodium (Chloride) 100 mls @ 100 mls/hr IVPB Q8@0700,1500,2300 [facility]; Protocol Last Admin: 09/29/18 08:19 Dose: 100 mls/hr Lactobacillus Acidophilus (Bacid Acidophilus) 1 cap PO BID [facility] Last Admin: 09/29/18 08:16 Dose: Not Given Losartan Potassium (Cozaar) 50 mg PO DAILY [facility] Last Admin: 09/27/18 15:20 Dose: Not Given Metoprolol Tartrate (Lopressor) 5 mg IVP Q6 [facility] Last Admin: 09/29/18 11:19 Dose: Not Given Mirtazapine (Remeron) 15 mg PO HS [facility] Last Admin: 09/28/18 21:48 Dose: 15 mg Quetiapine Fumarate (Seroquel) 25 mg PO HS [facility] Last Admin: 09/28/18 21:48 Dose: 25 mg Sevelamer Carbonate (Renvela) 800 mg PO TID [facility] Last Admin: 09/29/18 08:21 Dose: Not Given Vancomycin HCl (Vancocin (Oral/Rectal Use)) 125 mg PO Q8 [facility]; Protocol Last Admin: 09/29/18 08:21 Dose: Not Given Vitamin B Complex/Vit C/Folic Acid (Nephro-Jj) 1 tab PO DAILY [facility] Last Admin: 09/28/18 10:05 Dose: 1 tab - Labs Labs: 09/29/18 09:00 09/29/18 09:00 PT 11.9 Seconds (9.8-13.1) 09/24/18 09:45 INR 1.0 09/24/18 09:45 APTT 26.7 Seconds (25.6-37.1) 09/24/18 09:45 Assessment and Plan - Assessment and Plan (Free Text) Assessment: Patient was personally seen and examined by me in rounds with residents. Available labs and diagnostic data reviewed. Case, Patient's condition and management plan discussed with residents in rounds. Agree with resident's progress note. Plan: As ordered.
[2018-09-29] MEDS: Lactobacillus Acidophilus 500 MU Cap PO SCH ×2 (08:16→16:38)
[2018-09-29] MEDS: EPOETIN ALFA 10,000 UNIT/ML ML SC SCH (08:20)
--- NOTE | 2018-09-29 09:09 | CP.PCM.PN ---
Subjective - Date & Time of Evaluation Date of Evaluation: 09/29/18 Time of Evaluation: 08:30 - Subjective Subjective: Getting dialyzed at this time. Tolerates dialysis well. Patient's heart rate ranges between 100 and 110 bpm with atrial fibrillation. His blood pressure was 96/70 mmHg. Jugular venous pressure was not elevated. There was no sacral edema. Patient tolerates intravenous metoprolol every 6 hours. Labs were drawn this morning during dialysis since patient refuses to have them done. Stable from cardiovascular point of view at this juncture. Objective - Vital Signs/Intake and Output Vital Signs (last 24 hours): Temp Pulse Resp BP Pulse Ox 97.7 F 120 H 20 90/63 L 97 09/29/18 08:42 09/29/18 08:42 09/29/18 08:42 09/29/18 08:42 09/29/18 08:42 Intake and Output: 09/29/18 09/29/18 06:59 18:59 Intake Total 1000 100 Output Total 200 Balance 800 100 - Medications Medications: Current Medications Acetaminophen (Tylenol 325mg Tab) 650 mg PO Q4 PRN PRN Reason: Fever >100.4 F Acetaminophen (Tylenol 325mg Tab) 650 mg PO Q4 PRN PRN Reason: Pain, Mild (1-3) Bacitracin (Bacitracin) 1 ea TOP DAILY [facility] Last Admin: 09/28/18 10:02 Dose: 1 ea Calcitriol (Rocaltrol) 0.25 mcg PO DAILY [facility] Last Admin: 09/28/18 10:05 Dose: 0.25 mcg Epoetin Charles (Procrit) 10,000 unit SC TTS [facility] Last Admin: 09/29/18 08:20 Dose: 10,000 unit Ferrous Gluconate (Fergon) 324 mg PO BID [facility] Last Admin: 09/29/18 08:16 Dose: Not Given Finasteride (Proscar) 5 mg PO DAILY [facility] Last Admin: 09/28/18 10:05 Dose: 5 mg Heparin Sodium (Porcine) (Heparin) 5,000 units SC Q8 [facility]; Protocol Last Admin: 09/29/18 08:20 Dose: 5,000 units Hydromorphone HCl (Dilaudid) 0.5 mg IVP Q15M PRN PRN Reason: Pain, moderate (4-7) Sodium Chloride (Sodium Chloride 0.9%) 500 mls @ 150 mls/hr IV .Q3H20M [facility] Last Admin: 09/29/18 01:12 Dose: 150 mls/hr Meropenem 1 gm/ Sodium (Chloride) 100 mls @ 100 mls/hr IVPB Q8@0700,1500,2300 [facility]; Protocol Last Admin: 09/29/18 08:19 Dose: 100 mls/hr Lactobacillus Acidophilus (Bacid Acidophilus) 1 cap PO BID [facility] Last Admin: 09/29/18 08:16 Dose: Not Given Losartan Potassium (Cozaar) 50 mg PO DAILY [facility] Last Admin: 09/27/18 15:20 Dose: Not Given Metoprolol Tartrate (Lopressor) 5 mg IVP Q6 [facility] Last Admin: 09/29/18 05:40 Dose: Not Given Mirtazapine (Remeron) 15 mg PO HS [facility] Last Admin: 09/28/18 21:48 Dose: 15 mg Quetiapine Fumarate (Seroquel) 25 mg PO HS [facility] Last Admin: 09/28/18 21:48 Dose: 25 mg Sevelamer Carbonate (Renvela) 800 mg PO TID [facility] Last Admin: 09/29/18 08:21 Dose: Not Given Vancomycin HCl (Vancocin (Oral/Rectal Use)) 125 mg PO Q8 [facility]; Protocol Last Admin: 09/29/18 08:21 Dose: Not Given Vitamin B Complex/Vit C/Folic Acid (Nephro-Jj) 1 tab PO DAILY [facility] Last Admin: 09/28/18 10:05 Dose: 1 tab - Labs Labs: 09/26/18 10:39 09/26/18 10:39 PT 11.9 Seconds (9.8-13.1) 09/24/18 09:45 INR 1.0 09/24/18 09:45 APTT 26.7 Seconds (25.6-37.1) 09/24/18 09:45
[2018-09-29 09:50] LABS: BASO % 0.7 % (0.0-2.0); EOS # 0.1 K/uL (0.0-0.7); EOS % 1.4 % (0.0-4.0); HEMOGLOBIN 7.1 g/dL (12.0-18.0); LYMPH # 0.7 K/uL (1.0-4.3); LYMPH % 14.6 % (20.0-40.0); MEAN CELL VOLUME 99.7 fl (80.0-94.0); MEAN CORPUSCULAR HEMOGLOBIN 30.9 pg (27.0-31.0); MEAN PLATELET VOLUME 7.5 fl (7.2-11.7); MONO # 1.3 K/uL (0.0-0.8); NEUT # 2.7 K/uL (1.8-7.0); NEUT % 55.3 % (50.0-75.0); NRBC % 0.3 % (0.0-0.0); PLATELET COUNT 110 K/uL (130-400); RBC 2.29 Mil/uL (4.40-5.90); RED CELL DISTRIBUTION WIDTH 24.7 % (11.5-14.5); WHITE BLOOD COUNT 4.8 K/uL (4.8-10.8)
[2018-09-29 10:04] LABS: ALB/GLOB RATIO 0.6 (1.0-2.1); ALBUMIN 1.5 g/dL (3.5-5.0); CALCIUM 6.9 mg/dL (8.4-10.2)
--- NOTE | 2018-09-29 10:18 | CP.PCM.PN ---
Subjective - Date & Time of Evaluation Date of Evaluation: 09/29/18 Time of Evaluation: 10:18 - Subjective Subjective: Dialysis note He was seen on hemodialysis now Pressure about 94-96 systolic Hemoglobin is low patient need a blood transfusion as soon as possible. Discussed with the dialysis nurse Increase potassium bath to 4 mEq now Objective - Vital Signs/Intake and Output Vital Signs (last 24 hours): Temp Pulse Resp BP Pulse Ox 97.7 F 120 H 20 90/63 L 97 09/29/18 08:42 09/29/18 09:00 09/29/18 08:42 09/29/18 08:42 09/29/18 08:42 Intake and Output: 09/29/18 09/29/18 06:59 18:59 Intake Total 1000 100 Output Total 200 Balance 800 100 - Medications Medications: Current Medications Acetaminophen (Tylenol 325mg Tab) 650 mg PO Q4 PRN PRN Reason: Fever >100.4 F Acetaminophen (Tylenol 325mg Tab) 650 mg PO Q4 PRN PRN Reason: Pain, Mild (1-3) Bacitracin (Bacitracin) 1 ea TOP DAILY [facility] Last Admin: 09/28/18 10:02 Dose: 1 ea Calcitriol (Rocaltrol) 0.25 mcg PO DAILY [facility] Last Admin: 09/28/18 10:05 Dose: 0.25 mcg Epoetin Charles (Procrit) 10,000 unit SC TTS [facility] Last Admin: 09/29/18 08:20 Dose: 10,000 unit Ferrous Gluconate (Fergon) 324 mg PO BID [facility] Last Admin: 09/29/18 08:16 Dose: Not Given Finasteride (Proscar) 5 mg PO DAILY [facility] Last Admin: 09/28/18 10:05 Dose: 5 mg Heparin Sodium (Porcine) (Heparin) 5,000 units SC Q8 [facility]; Protocol Last Admin: 09/29/18 08:20 Dose: 5,000 units Hydromorphone HCl (Dilaudid) 0.5 mg IVP Q15M PRN PRN Reason: Pain, moderate (4-7) Sodium Chloride (Sodium Chloride 0.9%) 500 mls @ 150 mls/hr IV .Q3H20M [facility] Last Admin: 09/29/18 01:12 Dose: 150 mls/hr Meropenem 1 gm/ Sodium (Chloride) 100 mls @ 100 mls/hr IVPB Q8@0700,1500,2300 [facility]; Protocol Last Admin: 09/29/18 08:19 Dose: 100 mls/hr Lactobacillus Acidophilus (Bacid Acidophilus) 1 cap PO BID [facility] Last Admin: 09/29/18 08:16 Dose: Not Given Losartan Potassium (Cozaar) 50 mg PO DAILY [facility] Last Admin: 09/27/18 15:20 Dose: Not Given Metoprolol Tartrate (Lopressor) 5 mg IVP Q6 [facility] Last Admin: 09/29/18 05:40 Dose: Not Given Mirtazapine (Remeron) 15 mg PO HS [facility] Last Admin: 09/28/18 21:48 Dose: 15 mg Quetiapine Fumarate (Seroquel) 25 mg PO [facility] Last Admin: 09/28/18 21:48 Dose: 25 mg Sevelamer Carbonate (Renvela) 800 mg PO TID [facility] Last Admin: 09/29/18 08:21 Dose: Not Given Vancomycin HCl (Vancocin (Oral/Rectal Use)) 125 mg PO Q8 [facility]; Protocol Last Admin: 09/29/18 08:21 Dose: Not Given Vitamin B Complex/Vit C/Folic Acid (Nephro-Jj) 1 tab PO DAILY [facility] Last Admin: 09/28/18 10:05 Dose: 1 tab - Labs Labs: 09/29/18 09:00 09/29/18 09:00 PT 11.9 Seconds (9.8-13.1) 09/24/18 09:45 INR 1.0 09/24/18 09:45 APTT 26.7 Seconds (25.6-37.1) 09/24/18 09:45 - Constitutional Appears: No Acute Distress - Eye Exam Eye Exam: Conjunctival injection - ENT Exam ENT Exam: Mucous Membranes Dry, Mucous Membranes Moist - Neck Exam Neck Exam: absent: Lymphadenopathy - Respiratory Exam Respiratory Exam: NORMAL BREATHING PATTERN. absent: Rhonchi - Cardiovascular Exam Cardiovascular Exam: absent: Gallop, JVD, Rubs - GI/Abdominal Exam GI & Abdominal Exam: Soft, Normal Bowel Sounds - Extremities Exam Extremities Exam: absent: Calf Tenderness - Back Exam Back Exam: absent: CVA tenderness (L), CVA tenderness (R) - Neurological Exam Neurological Exam: Altered - Psychiatric Exam Psychiatric exam: Flat Affect - Skin Skin Exam: absent: Cyanosis Assessment and Plan (1) Atrial fibrillation with RVR Status: Acute (2) ESRD (end stage renal disease) Assessment & Plan: He was seen on hemodialysis discussed with the dialysis nurse to do no ultrafiltration because the patient appears to be frail and hypotensive The patient appears to be tolerating the dialysis through right subclavian catheter. Patient is awake although he appears to be confused The plan to continue hemodialysis as scheduled TTS. 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) Patient is uremic now Atrial fibrillation This is summary of previous admission multitude of medical problem gross hematuria severe anemia prostatic CA status post multiple cystoscopy previous admission Also for history when the patient was diagnosed with the above diagnosis he has a following treatment previous admission Pulses steroid for 3 days Rituximab 1 g twice 4 weeks apart Oral steroid Plasma phoresis And the patient continued to need dialysis s/p Amicar drip s/p cryopercipitate transfusion; goal fibrinogen > 200 - has been stable after transfusion s/p ddavp s/p vit k Status: Chronic (3) Anemia Status: Chronic
[2018-09-29] MEDS ORDERED: Potassium Chloride 20 mEq/15 ml LIQ UD PO ONE (10:30)
[2018-09-29 10:50] LABS: BANDS 2 % (0-2); EOSINOPHIL 1 % (0-7); LYMPHOCYTE 11 % (20-50); MONOCYTE 18 % (0-10); NEUTROPHIL 68 % (42-75); TOTAL CELLS COUNTED 100
[2018-09-29 10:52] LABS: ANISOCYTOSIS MARKED; HYPOCHROMIC MODERATE; PLATELET ESTIMATE DECREASED (NORMAL)
[2018-09-29 10:53] LABS: LARGE PLATELETS PRESENT; TOXIC GRANULATION PRESENT
[2018-09-29] MEDS: Bacitracin 500 Units/gm Oint Foilpak UD TOP SCH (11:19)
[2018-09-29 12:45] LABS: HEPATITIS B SURFACE AG Negative (NEGATIVE)
[2018-09-29 12:50] LABS: HEPATITIS B CORE AB NEGATIVE (NEGATIVE)
[2018-09-29 13:02] LABS: HEPATITIS C ANTIBODY NEGATIVE (NEGATIVE)
[2018-09-29] MEDS: Multivitamin Vitamin B Complex (Nephro-Vite) Tab PO SCH (16:30)
[2018-09-30] MEDS: Vancomycin 500 mg (Oral/Rectal USE) PO SCH ×3 (00:51→16:08)
[2018-09-30] MEDS: Sodium Chloride 0.9% 500 ML IV SCH (05:00)
[2018-09-30] MEDS: Metoprolol 1 mg/ml Inj IVP SCH ×4 (05:00→22:11)
[2018-09-30] MEDS: Meropenem 1 GM in Sodium Chloride 0.9% 100 ML IVPB SCH ×3 (06:00→22:12)
[2018-09-30] MEDS: Bacitracin 500 Units/gm Oint Foilpak UD TOP SCH (09:25)
[2018-09-30] MEDS: Multivitamin Vitamin B Complex (Nephro-Vite) Tab PO SCH (09:27)
[2018-09-30] MEDS: Lactobacillus Acidophilus 500 MU Cap PO SCH ×2 (09:30→16:07)
--- NOTE | 2018-09-30 09:44 | CP.PCM.PN ---
Subjective - Date & Time of Evaluation Date of Evaluation: 09/30/18 Time of Evaluation: 09:10 - Subjective Subjective: Pt awake, not quite communicative BP 110/68 mm Hg (on post HD day) A Fib at 114/min No rales or gallop Will give a single dose of Dig to control HR No labs today (since pt refuses lab work regularly) To have HD tomorrow Objective - Vital Signs/Intake and Output Vital Signs (last 24 hours): Temp Pulse Resp BP Pulse Ox 97.4 F L 102 H 20 113/71 100 09/30/18 08:50 09/30/18 09:26 09/30/18 08:50 09/30/18 09:26 09/30/18 08:50 Intake and Output: 09/30/18 09/30/18 06:59 18:59 Intake Total 325 Balance 325 - Medications Medications: Current Medications Acetaminophen (Tylenol 325mg Tab) 650 mg PO Q4 PRN PRN Reason: Fever >100.4 F Acetaminophen (Tylenol 325mg Tab) 650 mg PO Q4 PRN PRN Reason: Pain, Mild (1-3) Bacitracin (Bacitracin) 1 ea TOP DAILY [facility] Last Admin: 09/30/18 09:25 Dose: 1 ea Calcitriol (Rocaltrol) 0.25 mcg PO DAILY [facility] Last Admin: 09/30/18 09:28 Dose: 0.25 mcg Epoetin Charles (Procrit) 10,000 unit SC TTS [facility] Last Admin: 09/29/18 08:20 Dose: 10,000 unit Ferrous Gluconate (Fergon) 324 mg PO BID [facility] Last Admin: 09/30/18 09:26 Dose: 324 mg Finasteride (Proscar) 5 mg PO DAILY [facility] Last Admin: 09/30/18 09:27 Dose: 5 mg Heparin Sodium (Porcine) (Heparin) 5,000 units SC Q8 [facility]; Protocol Last Admin: 09/30/18 09:26 Dose: 5,000 units Meropenem 1 gm/ Sodium (Chloride) 100 mls @ 100 mls/hr IVPB Q8@0700,1500,2300 [facility]; Protocol Last Admin: 09/30/18 06:00 Dose: 100 mls/hr Lactobacillus Acidophilus (Bacid Acidophilus) 1 cap PO BID [facility] Last Admin: 09/30/18 09:30 Dose: 1 cap Losartan Potassium (Cozaar) 50 mg PO DAILY [facility] Last Admin: 09/27/18 15:20 Dose: Not Given Metoprolol Tartrate (Lopressor) 5 mg IVP Q6 [facility] Last Admin: 09/30/18 09:26 Dose: 5 mg Mirtazapine (Remeron) 15 mg PO HS [facility] Last Admin: 09/29/18 21:29 Dose: 15 mg Quetiapine Fumarate (Seroquel) 25 mg PO HS [facility] Last Admin: 09/29/18 21:29 Dose: 25 mg Sevelamer Carbonate (Renvela) 800 mg PO TID [facility] Last Admin: 09/30/18 09:28 Dose: 800 mg Vancomycin HCl (Vancocin (Oral/Rectal Use)) 125 mg PO Q8 [facility]; Protocol Last Admin: 09/30/18 09:28 Dose: 125 mg Vitamin B Complex/Vit C/Folic Acid (Nephro-Jj) 1 tab PO DAILY [facility] Last Admin: 09/30/18 09:27 Dose: 1 tab - Labs Labs: 09/29/18 09:00 09/29/18 09:00 PT 11.9 Seconds (9.8-13.1) 09/24/18 09:45 INR 1.0 09/24/18 09:45 APTT 26.7 Seconds (25.6-37.1) 09/24/18 09:45
[2018-09-30 10:26] LABS: CALCIUM 7.1 mg/dL (8.4-10.2)
[2018-09-30 10:30] LABS: MEAN CORPUSCULAR HEMOGLOBIN 30.3 pg (27.0-31.0); MEAN CORPUSCULAR HGB CONC 32.3 g/dL (33.0-37.0); RBC 3.69 Mil/uL (4.40-5.90); RED CELL DISTRIBUTION WIDTH 20.9 % (11.5-14.5)
[2018-09-30 10:34] LABS: HEMOGLOBIN 11.2 g/dL (12.0-18.0)
--- NOTE | 2018-09-30 11:18 | CP.PCM.PN ---
Subjective - Date & Time of Evaluation Date of Evaluation: 09/30/18 Time of Evaluation: 11:18 - Subjective Subjective: Patient appears to be not responding very well he is sleepy Appears to be chronically ill and debilitated Vital signs noted to be better blood pressure much better after he was given blood transfusion Electrolyte and creatinine noted serum creatinine 1.8 We will cut down hemodialysis to twice a week Objective - Vital Signs/Intake and Output Vital Signs (last 24 hours): Temp Pulse Resp BP Pulse Ox 98.9 F 102 H 18 113/71 99 09/30/18 09:00 09/30/18 09:26 09/30/18 09:00 09/30/18 09:26 09/30/18 09:00 Intake and Output: 09/30/18 09/30/18 06:59 18:59 Intake Total 325 40 Balance 325 40 - Medications Medications: Current Medications Acetaminophen (Tylenol 325mg Tab) 650 mg PO Q4 PRN PRN Reason: Fever >100.4 F Acetaminophen (Tylenol 325mg Tab) 650 mg PO Q4 PRN PRN Reason: Pain, Mild (1-3) Bacitracin (Bacitracin) 1 ea TOP DAILY [facility] Last Admin: 09/30/18 09:25 Dose: 1 ea Calcitriol (Rocaltrol) 0.25 mcg PO DAILY [facility] Last Admin: 09/30/18 09:28 Dose: 0.25 mcg Epoetin Charles (Procrit) 10,000 unit SC TTS [facility] Last Admin: 09/29/18 08:20 Dose: 10,000 unit Ferrous Gluconate (Fergon) 324 mg PO BID [facility] Last Admin: 09/30/18 09:26 Dose: 324 mg Finasteride (Proscar) 5 mg PO DAILY [facility] Last Admin: 09/30/18 09:27 Dose: 5 mg Heparin Sodium (Porcine) (Heparin) 5,000 units SC Q8 [facility]; Protocol Last Admin: 09/30/18 09:26 Dose: 5,000 units Meropenem 1 gm/ Sodium (Chloride) 100 mls @ 100 mls/hr IVPB Q8@0700,1500,2300 [facility]; Protocol Last Admin: 09/30/18 06:00 Dose: 100 mls/hr Lactobacillus Acidophilus (Bacid Acidophilus) 1 cap PO BID [facility] Last Admin: 09/30/18 09:30 Dose: 1 cap Losartan Potassium (Cozaar) 50 mg PO DAILY [facility] Last Admin: 09/27/18 15:20 Dose: Not Given Metoprolol Tartrate (Lopressor) 5 mg IVP Q6 [facility] Last Admin: 09/30/18 09:26 Dose: 5 mg Mirtazapine (Remeron) 15 mg PO HS [facility] Last Admin: 09/29/18 21:29 Dose: 15 mg Quetiapine Fumarate (Seroquel) 25 mg PO HS [facility] Last Admin: 09/29/18 21:29 Dose: 25 mg Sevelamer Carbonate (Renvela) 800 mg PO TID [facility] Last Admin: 09/30/18 09:28 Dose: 800 mg Vancomycin HCl (Vancocin (Oral/Rectal Use)) 125 mg PO Q8 [facility]; Protocol Last Admin: 09/30/18 09:28 Dose: 125 mg Vitamin B Complex/Vit C/Folic Acid (Nephro-Jj) 1 tab PO DAILY [facility] Last Admin: 09/30/18 09:27 Dose: 1 tab - Labs Labs: 09/30/18 09:52 09/30/18 09:52 PT 11.9 Seconds (9.8-13.1) 09/24/18 09:45 INR 1.0 09/24/18 09:45 APTT 26.7 Seconds (25.6-37.1) 09/24/18 09:45 - Constitutional Appears: No Acute Distress - Eye Exam Eye Exam: Conjunctival injection - ENT Exam ENT Exam: Mucous Membranes Dry - Neck Exam Neck Exam: absent: Lymphadenopathy - Respiratory Exam Respiratory Exam: absent: Chest Wall Tenderness - Cardiovascular Exam Cardiovascular Exam: Irregular Rhythm. 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) Atrial fibrillation anemia Plan Continue EPO for anemia We will cut down the hemodialysis to twice a week As per primary team with the antibiotics and management of cardiac arrhythmia atrial fibrillation This is summary of previous admission multitude of medical problem gross hematuria severe anemia prostatic CA status post multiple cystoscopy previous admission Also for history when the patient was diagnosed with the above diagnosis he has a following treatment previous admission Pulses steroid for 3 days Rituximab 1 g twice 4 weeks apart Oral steroid Plasma phoresis And the patient continued to need dialysis s/p Amicar drip s/p cryopercipitate transfusion; goal fibrinogen > 200 - has been stable after transfusion s/p ddavp s/p vit k Status: Chronic (3) Anemia Status: Chronic
--- NOTE | 2018-09-30 12:34 | CP.PCM.PN ---
<Chris Vazquez - Last Filed: 09/30/18 12:31> Subjective - Date & Time of Evaluation Date of Evaluation: 09/30/18 Time of Evaluation: 07:45 - Subjective Subjective: Patient seen and examined this morning, NAD. Denies any pain. Continues to have Hematuria and diarrhea. + poor appetite, patient was transfused 2 U pRBCs yesterday, f/u CBC. + C.diff. Objective - Vital Signs/Intake and Output Vital Signs (last 24 hours): Temp Pulse Resp BP Pulse Ox 98.9 F 102 H 18 113/71 99 09/30/18 09:00 09/30/18 09:26 09/30/18 09:00 09/30/18 09:26 09/30/18 09:00 Intake and Output: 09/30/18 09/30/18 06:59 18:59 Intake Total 325 40 Balance 325 40 - Medications Medications: Current Medications Acetaminophen (Tylenol 325mg Tab) 650 mg PO Q4 PRN PRN Reason: Fever >100.4 F Acetaminophen (Tylenol 325mg Tab) 650 mg PO Q4 PRN PRN Reason: Pain, Mild (1-3) Bacitracin (Bacitracin) 1 ea TOP DAILY [facility] Last Admin: 09/30/18 09:25 Dose: 1 ea Calcitriol (Rocaltrol) 0.25 mcg PO DAILY [facility] Last Admin: 09/30/18 09:28 Dose: Not Given Epoetin Charles (Procrit) 10,000 unit SC TTS [facility] Last Admin: 09/29/18 08:20 Dose: 10,000 unit Ferrous Gluconate (Fergon) 324 mg PO BID [facility] Last Admin: 09/30/18 09:26 Dose: Not Given Finasteride (Proscar) 5 mg PO DAILY [facility] Last Admin: 09/30/18 09:27 Dose: Not Given Heparin Sodium (Porcine) (Heparin) 5,000 units SC Q8 [facility]; Protocol Last Admin: 09/30/18 09:26 Dose: 5,000 units Meropenem 1 gm/ Sodium (Chloride) 100 mls @ 100 mls/hr IVPB Q8@0700,1500,2300 [facility]; Protocol Last Admin: 09/30/18 06:00 Dose: 100 mls/hr Lactobacillus Acidophilus (Bacid Acidophilus) 1 cap PO BID [facility] Last Admin: 09/30/18 09:30 Dose: Not Given Losartan Potassium (Cozaar) 50 mg PO DAILY [facility] Last Admin: 09/27/18 15:20 Dose: Not Given Metoprolol Tartrate (Lopressor) 5 mg IVP Q6 [facility] Last Admin: 09/30/18 09:26 Dose: 5 mg Mirtazapine (Remeron) 15 mg PO HS [facility] Last Admin: 09/29/18 21:29 Dose: 15 mg Quetiapine Fumarate (Seroquel) 25 mg PO HS [facility] Last Admin: 09/29/18 21:29 Dose: 25 mg Sevelamer Carbonate (Renvela) 800 mg PO TID [facility] Last Admin: 09/30/18 09:28 Dose: Not Given Vancomycin HCl (Vancocin (Oral/Rectal Use)) 125 mg PO Q8 [facility]; Protocol Last Admin: 09/30/18 09:28 Dose: Not Given Vitamin B Complex/Vit C/Folic Acid (Nephro-Jj) 1 tab PO DAILY [facility] Last Admin: 09/30/18 09:27 Dose: Not Given - Labs Labs: 09/30/18 09:52 09/30/18 09:52 PT 11.9 Seconds (9.8-13.1) 09/24/18 09:45 INR 1.0 09/24/18 09:45 APTT 26.7 Seconds (25.6-37.1) 09/24/18 09:45 - Constitutional Appears: No Acute Distress - Head Exam Head Exam: NORMAL INSPECTION - Eye Exam Eye Exam: Normal appearance Pupil Exam: NORMAL ACCOMODATION - ENT Exam ENT Exam: Mucous Membranes Moist - Neck Exam Neck Exam: Normal Inspection - Respiratory Exam Respiratory Exam: Clear to Ausculation Bilateral, NORMAL BREATHING PATTERN. absent: Accessory Muscle Use, Decreased Breath Sounds, Rhonchi, Wheezes - Cardiovascular Exam Cardiovascular Exam: Tachycardia, Irregular Rhythm - GI/Abdominal Exam GI & Abdominal Exam: Soft, Normal Bowel Sounds. absent: Tenderness - Extremities Exam Extremities Exam: Normal Inspection - Neurological Exam Neurological Exam: Alert, Awake - Psychiatric Exam Psychiatric exam: Normal Affect - Skin Skin Exam: Normal Color Assessment and Plan - Assessment and Plan (Free Text) Assessment: A/P: 77 YO Male with PMHx of HTN, Atrial fibrillation, CHF (EF: 60%) and ESRD is admitted for anemia, ESRD, hematuria and a fib. A fib w/ RVR -acute on chronic, uncontrolled -tachycardic in 110s -Cardiology on consulted; recs appreciated -Possible digoxin today as per cardio -c/w current meds, lopressor IV -follow up with cardio recommendations UTI-ESBL/Hematuria (gross) -acute -Ucx growth sig for Klebsiealla, sensitivity appreciated -ID consulted; recs appreciated, c/w jorgito and PO Vanc x 11 days -urology consulted; hematuria follow up recs ESRD -acute on chronic -2/2 to interstitial renal disease, granulomatosis polyangiitis -Nephrology on board -s/p tunnel cath 09/26 -HD twice a week as per Nephro Anemia -acute on chronic -likely 2/2 to ESRD, hematuria, malignancy -s/p 2 units of PRBC on 09/29, on epo per nephro -H/H: 11.2/34.7 C. diff pos -Per ID, started in PO vanc (started on 09/27) -c/w probiotic HTN/CHF -chronic, controlled -c/w home meds DVT proplx: Heparin SC Case discussed with Dr. Tineo <Hans Tineo - Last Filed: 10/01/18 09:07> Objective - Vital Signs/Intake and Output Vital Signs (last 24 hours): Temp Pulse Resp BP Pulse Ox 97.2 F L 99 H 20 110/73 94 L 10/01/18 08:24 10/01/18 08:24 10/01/18 08:24 10/01/18 08:24 10/01/18 08:24 - Medications Medications: Current Medications Acetaminophen (Tylenol 325mg Tab) 650 mg PO Q4 PRN PRN Reason: Fever >100.4 F Acetaminophen (Tylenol 325mg Tab) 650 mg PO Q4 PRN PRN Reason: Pain, Mild (1-3) Bacitracin (Bacitracin) 1 ea TOP DAILY [facility] Last Admin: 09/30/18 09:25 Dose: 1 ea Calcitriol (Rocaltrol) 0.25 mcg PO DAILY [facility] Last Admin: 09/30/18 09:28 Dose: Not Given Epoetin Charles (Procrit) 10,000 unit SC TTS [facility] Last Admin: 09/29/18 08:20 Dose: 10,000 unit Ferrous Gluconate (Fergon) 324 mg PO BID [facility] Last Admin: 09/30/18 16:07 Dose: Not Given Finasteride (Proscar) 5 mg PO DAILY [facility] Last Admin: 09/30/18 09:27 Dose: Not Given Heparin Sodium (Porcine) (Heparin) 5,000 units SC Q8 [facility]; Protocol Last Admin: 10/01/18 00:00 Dose: Not Given Meropenem 1 gm/ Sodium (Chloride) 100 mls @ 100 mls/hr IVPB Q8@0700,1500,2300 [facility]; Protocol Last Admin: 10/01/18 06:08 Dose: 100 mls/hr Metronidazole (Flagyl 500mg/100ml Ns) 100 mls @ 100 mls/hr IVPB Q8 [facility]; P rotocol Last Admin: 10/01/18 00:04 Dose: 100 mls/hr Lactobacillus Acidophilus (Bacid Acidophilus) 1 cap PO BID [facility] Last Admin: 09/30/18 16:07 Dose: Not Given Losartan Potassium (Cozaar) 50 mg PO DAILY [facility] Last Admin: 09/27/18 15:20 Dose: Not Given Metoprolol Tartrate (Lopressor) 5 mg IVP Q6 [facility] Last Admin: 10/01/18 05:04 Dose: 5 mg Mirtazapine (Remeron) 15 mg PO HS [facility] Last Admin: 09/30/18 22:11 Dose: 15 mg Quetiapine Fumarate (Seroquel) 25 mg PO HS [facility] Last Admin: 09/30/18 22:11 Dose: 25 mg Sevelamer Carbonate (Renvela) 800 mg PO TID [facility] Last Admin: 09/30/18 16:08 Dose: Not Given Vancomycin HCl (Vancocin (Oral/Rectal Use)) 125 mg PO Q8 [facility]; Protocol Last Admin: 10/01/18 00:01 Dose: 125 mg Vitamin B Complex/Vit C/Folic Acid (Nephro-Jj) 1 tab PO DAILY [facility] Last Admin: 09/30/18 09:27 Dose: Not Given - Labs Labs: 09/30/18 09:52 09/30/18 09:52 PT 11.9 Seconds (9.8-13.1) 09/24/18 09:45 INR 1.0 09/24/18 09:45 APTT 26.7 Seconds (25.6-37.1) 01/26/19 09:45 Assessment and Plan - Assessment and Plan (Free Text) Assessment: Patient was personally seen and examined by me in rounds with residents. Available labs and diagnostic data reviewed. Case, Patient's condition and management plan discussed with residents in rounds. Agree with resident's progress note. Plan: As ordered.
--- NOTE | 2018-09-30 13:25 | CP.PCM.PN ---
Subjective - Date & Time of Evaluation Date of Evaluation: 09/30/18 Time of Evaluation: 07:00 - Subjective Subjective: WEAK AND DEBILITATED Continues to have Hematuria and diarrhea. + poor appetite, patient was transfused 2 U pRBCs yesterday Objective - Vital Signs/Intake and Output Vital Signs (last 24 hours): Temp Pulse Resp BP Pulse Ox 98.9 F 102 H 18 113/71 99 09/30/18 09:00 09/30/18 09:26 09/30/18 09:00 09/30/18 09:26 09/30/18 09:00 Intake and Output: 09/30/18 09/30/18 06:59 18:59 Intake Total 325 40 Balance 325 40 - Medications Medications: Current Medications Acetaminophen (Tylenol 325mg Tab) 650 mg PO Q4 PRN PRN Reason: Fever >100.4 F Acetaminophen (Tylenol 325mg Tab) 650 mg PO Q4 PRN PRN Reason: Pain, Mild (1-3) Bacitracin (Bacitracin) 1 ea TOP DAILY [facility] Last Admin: 09/30/18 09:25 Dose: 1 ea Calcitriol (Rocaltrol) 0.25 mcg PO DAILY [facility] Last Admin: 09/30/18 09:28 Dose: Not Given Epoetin Charles (Procrit) 10,000 unit SC TTS [facility] Last Admin: 09/29/18 08:20 Dose: 10,000 unit Ferrous Gluconate (Fergon) 324 mg PO BID [facility] Last Admin: 09/30/18 09:26 Dose: Not Given Finasteride (Proscar) 5 mg PO DAILY [facility] Last Admin: 09/30/18 09:27 Dose: Not Given Heparin Sodium (Porcine) (Heparin) 5,000 units SC Q8 [facility]; Protocol Last Admin: 09/30/18 09:26 Dose: 5,000 units Meropenem 1 gm/ Sodium (Chloride) 100 mls @ 100 mls/hr IVPB Q8@0700,1500,2300 [facility]; Protocol Last Admin: 09/30/18 06:00 Dose: 100 mls/hr Lactobacillus Acidophilus (Bacid Acidophilus) 1 cap PO BID [facility] Last Admin: 09/30/18 09:30 Dose: Not Given Losartan Potassium (Cozaar) 50 mg PO DAILY [facility] Last Admin: 09/27/18 15:20 Dose: Not Given Metoprolol Tartrate (Lopressor) 5 mg IVP Q6 [facility] Last Admin: 09/30/18 09:26 Dose: 5 mg Mirtazapine (Remeron) 15 mg PO HS [facility] Last Admin: 09/29/18 21:29 Dose: 15 mg Quetiapine Fumarate (Seroquel) 25 mg PO HS [facility] Last Admin: 09/29/18 21:29 Dose: 25 mg Sevelamer Carbonate (Renvela) 800 mg PO TID [facility] Last Admin: 09/30/18 12:48 Dose: Not Given Vancomycin HCl (Vancocin (Oral/Rectal Use)) 125 mg PO Q8 [facility]; Protocol Last Admin: 09/30/18 09:28 Dose: Not Given Vitamin B Complex/Vit C/Folic Acid (Nephro-Jj) 1 tab PO DAILY [facility] Last Admin: 09/30/18 09:27 Dose: Not Given - Labs Labs: 09/30/18 09:52 09/30/18 09:52 PT 11.9 Seconds (9.8-13.1) 09/24/18 09:45 INR 1.0 09/24/18 09:45 APTT 26.7 Seconds (25.6-37.1) 09/24/18 09:45 - Constitutional Appears: Confused, Cachectic, Chronically Ill - Head Exam Head Exam: NORMOCEPHALIC - Eye Exam Eye Exam: absent: Scleral icterus - ENT Exam ENT Exam: Mucous Membranes Dry - Neck Exam Neck Exam: absent: Lymphadenopathy - Respiratory Exam Respiratory Exam: Decreased Breath Sounds - Cardiovascular Exam Cardiovascular Exam: REGULAR RHYTHM - GI/Abdominal Exam GI & Abdominal Exam: Distended - Rectal Exam Rectal Exam: Deferred - Exam Exam: NORMAL INSPECTION - Extremities Exam Extremities Exam: Pedal Edema Assessment and Plan (1) Atrial fibrillation with RVR Status: Acute (2) Anemia Status: Chronic (3) ESRD (end stage renal disease) Status: Chronic (4) Acute on chronic renal failure Status: Acute (5) Hepatitis C Status: Acute - Assessment and Plan (Free Text) Assessment: WILL REPEAT URINE C/S IF NEG- WILL D/C MERREM CONT RX CDIFF
[2018-09-30] MEDS: metroNIDAZOLE 500mg/100ml NS 100 ML IVPB SCH (16:16)
[2018-09-30 18:08] LABS: CREATININE, RANDOM URINE 81.1 mg/dL
[2018-10-01] MEDS: Vancomycin 500 mg (Oral/Rectal USE) PO SCH ×3 (00:01→16:03)
[2018-10-01] MEDS: metroNIDAZOLE 500mg/100ml NS 100 ML IVPB SCH ×3 (00:04→16:00)
[2018-10-01] MEDS: Metoprolol 1 mg/ml Inj IVP SCH ×5 (05:04→21:19)
[2018-10-01] MEDS: Meropenem 1 GM in Sodium Chloride 0.9% 100 ML IVPB SCH ×5 (06:08→22:48)
[2018-10-01] MEDS: Lactobacillus Acidophilus 500 MU Cap PO SCH ×3 (10:15→16:01)
[2018-10-01] MEDS: Bacitracin 500 Units/gm Oint Foilpak UD TOP SCH (10:16)
[2018-10-01] MEDS: EPOETIN ALFA 10,000 UNIT/ML ML SC SCH ×2 (10:21→10:43)
[2018-10-01] MEDS: Multivitamin Vitamin B Complex (Nephro-Vite) Tab PO SCH ×2 (10:21→10:37)
--- NOTE | 2018-10-01 18:53 | CP.PCM.PN ---
Subjective - Date & Time of Evaluation Date of Evaluation: 10/01/18 Time of Evaluation: 18:49 - Subjective Subjective: Nephrology Consultation Note Assessment: Stable Hypertensive Chronic Kidney Disease (I12.0) End stage renal disease (N18.6) dependence on hemodialysis (Z99.2) Anemia (D64.9), A fib CA prostate hx of pauci-immune GN Plan: Will plan for HD as ordered (Wed and ). Continue with Nephrovite 1 tab/day. PRBC as needed for anemia. on MENG with dialysis as last Hb 11.2 s/p PRBC Continue with phos binders, last phos level 3.4 BP control with meds as ordered. Patient not on RAAS kaylie as BP low side Glycemic control, Dialysis consistent diet Further work up/management as per primary team Dose meds/antibiotics (if needed) for ESRD status. Avoid fleets enema/magnesium based laxatives. SW consult for outpt HD placement vascular surgery consult for AVF placement if possible prior to to d/c Thanks for allowing me to participate in care of your patient. Will follow patient with you. Please call if any Qs Dr Dominguez Nix Office: [phone] Subjective: Noted events overnight. Patients feels okay. Denies chest pain, palpitation, shortness of breath, leg swelling. All other negative Physical Examination: General Appearance: Comfortable, in no acute respiratory distress, co-operative . Vitals reviewed and noted as below Head; Atraumatic, normocephalic ENT: no ulcers no thrush. Tongue is midline. Oropharynx: no rash or ulcers. EYES: Pupils are equal, round and reactive to light accommodation. Eye muscles and extraocular movement intact. Sclera is anicteric. Neck; supple no lymphadenopathy, no thyromegaly or bruit Lungs: Normal respiratory rate/effort. Breath sounds bilateral equal and clear Heart: Normal rate. s1s2 normal. No rub or gallop. Extremities: no edema. No varicose veins Neurological: Patient is alert, awake and oriented to person, place and time. No focal deficit. Strength bilateral appropriate and equal Skin: Warm and dry. Normal turgor. No rash. Palpitation: Normal elasticity for age Abdomen: Abdomen is soft. Bowel sounds +. There is no abdominal tenderness, no guarding/rigidity or organomegaly Psych: lack insight and normal affect/mood MSK: no joint tenderness or swelling. Digits and nails normal, no deformity : kidney or bladder not palpable Access: permacath Labs/imaging reviewed. Past medical history, past surgical history, family history, social history, allergy reviewed and noted as below Family Hx: no hx of CKD. Non contributory Objective - Vital Signs/Intake and Output Vital Signs (last 24 hours): Temp Pulse Resp BP Pulse Ox 97.0 F L 68 18 110/73 100 10/01/18 15:58 10/01/18 15:59 10/01/18 15:58 10/01/18 15:59 10/01/18 15:58 - Medications Medications: Current Medications Acetaminophen (Tylenol 325mg Tab) 650 mg PO Q4 PRN PRN Reason: Fever >100.4 F Acetaminophen (Tylenol 325mg Tab) 650 mg PO Q4 PRN PRN Reason: Pain, Mild (1-3) Bacitracin (Bacitracin) 1 ea TOP DAILY [facility] Last Admin: 10/01/18 10:16 Dose: 1 ea Calcitriol (Rocaltrol) 0.25 mcg PO DAILY [facility] Last Admin: 10/01/18 10:35 Dose: Not Given Epoetin Charles (Procrit) 10,000 unit SC TTS [facility] Last Admin: 10/01/18 10:43 Dose: Not Given Ferrous Gluconate (Fergon) 324 mg PO BID [facility] Last Admin: 10/01/18 16:01 Dose: Not Given Finasteride (Proscar) 5 mg PO DAILY [facility] Last Admin: 10/01/18 10:37 Dose: Not Given Heparin Sodium (Porcine) (Heparin) 5,000 units SC Q8 [facility]; Protocol Last Admin: 10/01/18 16:01 Dose: 5,000 units Meropenem 1 gm/ Sodium (Chloride) 100 mls @ 100 mls/hr IVPB Q8@0700,1500,2300 [facility]; Protocol Last Admin: 10/01/18 15:55 Dose: 100 mls/hr Metronidazole (Flagyl 500mg/100ml Ns) 100 mls @ 100 mls/hr IVPB Q8 [facility]; Protocol Last Admin: 10/01/18 16:00 Dose: 100 mls/hr Lactobacillus Acidophilus (Bacid Acidophilus) 1 cap PO BID [facility] Last Admin: 10/01/18 16:01 Dose: Not Given Losartan Potassium (Cozaar) 50 mg PO DAILY [facility] Last Admin: 09/27/18 15:20 Dose: Not Given Metoprolol Tartrate (Lopressor) 5 mg IVP Q6 [facility] Last Admin: 10/01/18 15:59 Dose: 5 mg Mirtazapine (Remeron) 15 mg PO HS [facility] Last Admin: 09/30/18 22:11 Dose: 15 mg Quetiapine Fumarate (Seroquel) 25 mg PO HS [facility] Last Admin: 09/30/18 22:11 Dose: 25 mg Sevelamer Carbonate (Renvela) 800 mg PO TID [facility] Last Admin: 10/01/18 16:03 Dose: Not Given Vancomycin HCl (Vancocin (Oral/Rectal Use)) 125 mg PO Q8 [facility]; Protocol Last Admin: 10/01/18 16:03 Dose: Not Given Vitamin B Complex/Vit C/Folic Acid (Nephro-Jj) 1 tab PO DAILY [facility] Last Admin: 10/01/18 10:37 Dose: Not Given - Labs Labs: 09/30/18 09:52 09/30/18 09:52 PT 11.9 Seconds (9.8-13.1) 09/24/18 09:45 INR 1.0 09/24/18 09:45 APTT 26.7 Seconds (25.6-37.1) 09/24/18 09:45
[2018-10-02] MEDS: metroNIDAZOLE 500mg/100ml NS 100 ML IVPB SCH ×3 (00:24→16:26)
[2018-10-02] MEDS: Vancomycin 500 mg (Oral/Rectal USE) PO SCH ×2 (00:28→08:19)
[2018-10-02] MEDS: Metoprolol 1 mg/ml Inj IVP SCH ×4 (03:43→22:36)
[2018-10-02] MEDS: Multivitamin Vitamin B Complex (Nephro-Vite) Tab PO SCH (08:20)
[2018-10-02] MEDS: Bacitracin 500 Units/gm Oint Foilpak UD TOP SCH (08:21)
[2018-10-02] MEDS: Lactobacillus Acidophilus 500 MU Cap PO SCH ×2 (08:23→16:31)
[2018-10-02] MEDS: Meropenem 1 GM in Sodium Chloride 0.9% 100 ML IVPB SCH ×3 (08:30→22:38)
[2018-10-02 09:28] LABS: HEMOGLOBIN 12.3 g/dL (12.0-18.0); MEAN CELL VOLUME 94.2 fl (80.0-94.0); MEAN CORPUSCULAR HEMOGLOBIN 30.3 pg (27.0-31.0); MEAN CORPUSCULAR HGB CONC 32.1 g/dL (33.0-37.0); RBC 4.06 Mil/uL (4.40-5.90); RED CELL DISTRIBUTION WIDTH 23.4 % (11.5-14.5); WHITE BLOOD COUNT 6.7 K/uL (4.8-10.8)
--- NOTE | 2018-10-02 10:00 | PN ---
DATE: 10/02/2018 SUBJECTIVE: The patient seen and examined. Interim events noted. Consults noted and appreciated. Nephrology followup and intervention noted and appreciated. The patient remains uncooperative, does not want to wake up. Denies any chest pain or shortness of breath. noncompliant. The patient is being uncooperative and not taking medication, but denied any specific complaint. PHYSICAL EXAMINATION: GENERAL: The patient is in no acute distress. VITAL SIGNS: Stable. HEART: S1, S2, normal, regular. LUNGS: Good bilateral air exchange. ABDOMEN: Soft, nontender. EXTREMITIES: No edema. No calf swelling. No tenderness. No acute ischemia. CENTRAL NERVOUS SYSTEM: Essentially unchanged. DIAGNOSTIC DATA: Available diagnostic data reviewed. ASSESSMENT: Overall, the patient's general medical condition is stable. The patient is being uncooperative. PLAN: As ordered. Hans Tineo MD
[2018-10-02 10:34] LABS: ALB/GLOB RATIO 0.6 (1.0-2.1); CALCIUM 7.6 mg/dL (8.4-10.2)
--- NOTE | 2018-10-02 12:58 | CP.PCM.PN ---
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 Continue with Nephrovite 1 tab/day. PRBC as needed for anemia. s/p PRBC. Hb 12.3 hence hold MENG for now Continue with phos binders, last phos level 3.4 BP control with meds as ordered. Patient not on RAAS kaylie as BP low side Glycemic control, Dialysis consistent diet Further work up/management as per primary team Dose meds/antibiotics (if needed) for ESRD status. Avoid fleets enema/magnesium based laxatives. SW consult for outpt HD placement vascular surgery consult for AVF placement if possible prior to to d/c Thanks for allowing me to participate in care of your patient. Will follow patient with you. Please call if any Qs Dr Dominguez Nix Office: [phone] Subjective: Noted events overnight. Patients feels okay. Denies chest pain, palpitation, shortness of breath, leg swelling. All other negative Physical Examination: General Appearance: Comfortable, in no acute respiratory distress, co-operative . Vitals reviewed and noted as below Head; Atraumatic, normocephalic ENT: no ulcers no thrush. Tongue is midline. Oropharynx: no rash or ulcers. EYES: Pupils are equal, round and reactive to light accommodation. Eye muscles and extraocular movement intact. Sclera is anicteric. Neck; supple no lymphadenopathy, no thyromegaly or bruit Lungs: Normal respiratory rate/effort. Breath sounds bilateral equal and clear Heart: Normal rate. s1s2 normal. No rub or gallop. Extremities: no edema. No varicose veins Neurological: Patient is alert, awake and oriented to person, place and time. No focal deficit. Strength bilateral appropriate and equal Skin: Warm and dry. Normal turgor. No rash. Palpitation: Normal elasticity for age Abdomen: Abdomen is soft. Bowel sounds +. There is no abdominal tenderness, no guarding/rigidity or organomegaly Psych: lack insight and normal affect/mood MSK: no joint tenderness or swelling. Digits and nails normal, no deformity : kidney or bladder not palpable Access: permacath Labs/imaging reviewed. Past medical history, past surgical history, family history, social history, allergy reviewed and noted as below Family Hx: no hx of CKD. Non contributory Objective - Vital Signs/Intake and Output Vital Signs (last 24 hours): Temp Pulse Resp BP Pulse Ox 98.0 F 95 H 18 103/70 98 10/02/18 08:00 10/02/18 08:00 10/02/18 08:00 10/02/18 08:00 10/02/18 08:00 - Medications Medications: Current Medications Acetaminophen (Tylenol 325mg Tab) 650 mg PO Q4 PRN PRN Reason: Fever >100.4 F Acetaminophen (Tylenol 325mg Tab) 650 mg PO Q4 PRN PRN Reason: Pain, Mild (1-3) Bacitracin (Bacitracin) 1 ea TOP DAILY [facility] Last Admin: 10/02/18 08:21 Dose: 1 ea Calcitriol (Rocaltrol) 0.25 mcg PO DAILY [facility] Last Admin: 10/02/18 08:20 Dose: 0.25 mcg Ferrous Gluconate (Fergon) 324 mg PO BID [facility] Last Admin: 10/02/18 08:19 Dose: 324 mg Finasteride (Proscar) 5 mg PO DAILY [facility] Last Admin: 10/02/18 08:20 Dose: 5 mg Heparin Sodium (Porcine) (Heparin) 5,000 units SC Q8 [facility]; Protocol Last Admin: 10/02/18 08:18 Dose: 5,000 units Meropenem 1 gm/ Sodium (Chloride) 100 mls @ 100 mls/hr IVPB Q8@0700,1500,2300 [facility]; Protocol Last Admin: 10/02/18 08:30 Dose: Not Given Metronidazole (Flagyl 500mg/100ml Ns) 100 mls @ 100 mls/hr IVPB Q8 [facility]; Protocol Last Admin: 10/02/18 08:30 Dose: Not Given Lactobacillus Acidophilus (Bacid Acidophilus) 1 cap PO BID [facility] Last Admin: 10/02/18 08:23 Dose: 1 cap Losartan Potassium (Cozaar) 50 mg PO DAILY [facility] Last Admin: 09/27/18 15:20 Dose: Not Given Metoprolol Tartrate (Lopressor) 5 mg IVP Q6 [facility] Last Admin: 10/02/18 10:35 Dose: Not Given Mirtazapine (Remeron) 15 mg PO HS [facility] Last Admin: 10/01/18 21:24 Dose: Not Given Quetiapine Fumarate (Seroquel) 25 mg PO HS [facility] Last Admin: 10/01/18 21:13 Dose: 25 mg Sevelamer Carbonate (Renvela) 800 mg PO TID [facility] Last Admin: 10/02/18 12:29 Dose: 800 mg Vitamin B Complex/Vit C/Folic Acid (Nephro-Jj) 1 tab PO DAILY [facility] Last Admin: 10/02/18 08:20 Dose: 1 tab - Labs Labs: 10/02/18 08:26 10/02/18 08:24 PT 11.9 Seconds (9.8-13.1) 09/24/18 09:45 INR 1.0 09/24/18 09:45 APTT 26.7 Seconds (25.6-37.1) 09/24/18 09:45
[2018-10-03] MEDS: metroNIDAZOLE 500mg/100ml NS 100 ML IVPB SCH ×3 (01:28→17:00)
[2018-10-03] MEDS: Metoprolol 1 mg/ml Inj IVP SCH ×4 (04:59→21:24)
[2018-10-03] MEDS: Lactobacillus Acidophilus 500 MU Cap PO SCH ×2 (08:24→16:15)
[2018-10-03] MEDS: Bacitracin 500 Units/gm Oint Foilpak UD TOP SCH (08:24)
[2018-10-03] MEDS: Multivitamin Vitamin B Complex (Nephro-Vite) Tab PO SCH (08:25)
--- NOTE | 2018-10-03 08:47 | CP.PCM.PN ---
Subjective - Date & Time of Evaluation Date of Evaluation: 10/03/18 Time of Evaluation: 08:15 - Subjective Subjective: Continues to be uncooperative Scheduled for HD today A Fib at 94 BPM (A Fib) BP 104/64 mm Hg No rales, no gallop JVP flat Labs of 2/3 noted (appear much stable) Stable from cardiac point of view Objective - Vital Signs/Intake and Output Vital Signs (last 24 hours): Temp Pulse Resp BP Pulse Ox 97.3 F L 85 18 115/72 99 10/03/18 05:00 10/03/18 05:00 10/03/18 05:00 10/03/18 05:00 10/03/18 05:00 - Medications Medications: Current Medications Acetaminophen (Tylenol 325mg Tab) 650 mg PO Q4 PRN PRN Reason: Fever >100.4 F Acetaminophen (Tylenol 325mg Tab) 650 mg PO Q4 PRN PRN Reason: Pain, Mild (1-3) Bacitracin (Bacitracin) 1 ea TOP DAILY [facility] Last Admin: 10/03/18 08:24 Dose: 1 ea Calcitriol (Rocaltrol) 0.25 mcg PO DAILY [facility] Last Admin: 10/03/18 08:25 Dose: 0.25 mcg Ferrous Gluconate (Fergon) 324 mg PO BID [facility] Last Admin: 10/03/18 08:25 Dose: 324 mg Finasteride (Proscar) 5 mg PO DAILY [facility] Last Admin: 10/03/18 08:25 Dose: 5 mg Metronidazole (Flagyl 500mg/100ml Ns) 100 mls @ 100 mls/hr IVPB Q8 [facility]; Protocol Last Admin: 10/03/18 08:26 Dose: 100 mls/hr Lactobacillus Acidophilus (Bacid Acidophilus) 1 cap PO BID [facility] Last Admin: 10/03/18 08:24 Dose: 1 cap Losartan Potassium (Cozaar) 50 mg PO DAILY [facility] Last Admin: 09/27/18 15:20 Dose: Not Given Metoprolol Tartrate (Lopressor) 5 mg IVP Q6 [facility] Last Admin: 10/03/18 04:59 Dose: Not Given Mirtazapine (Remeron) 15 mg PO HS [facility] Last Admin: 10/02/18 22:36 Dose: 15 mg Quetiapine Fumarate (Seroquel) 25 mg PO HS [facility] Last Admin: 10/02/18 22:36 Dose: 25 mg Sevelamer Carbonate (Renvela) 800 mg PO TID [facility] Last Admin: 10/03/18 08:25 Dose: 800 mg Vitamin B Complex/Vit C/Folic Acid (Nephro-Jj) 1 tab PO DAILY [facility] Last Admin: 10/03/18 08:25 Dose: 1 tab - Labs Labs: 10/02/18 08:26 10/02/18 08:24 PT 11.9 Seconds (9.8-13.1) 09/24/18 09:45 INR 1.0 09/24/18 09:45 APTT 26.7 Seconds (25.6-37.1) 09/24/18 09:45
--- NOTE | 2018-10-03 09:19 | CP.PCM.PN ---
Subjective - Date & Time of Evaluation Date of Evaluation: 10/03/18 Time of Evaluation: 09:18 - Subjective Subjective: Patient in bed Awake but not responding very well Vital signs noted to be stable Objective - Vital Signs/Intake and Output Vital Signs (last 24 hours): Temp Pulse Resp BP Pulse Ox 97.3 F L 85 18 115/72 99 10/03/18 05:00 10/03/18 05:00 10/03/18 05:00 10/03/18 05:00 10/03/18 05:00 - Medications Medications: Current Medications Acetaminophen (Tylenol 325mg Tab) 650 mg PO Q4 PRN PRN Reason: Fever >100.4 F Acetaminophen (Tylenol 325mg Tab) 650 mg PO Q4 PRN PRN Reason: Pain, Mild (1-3) Bacitracin (Bacitracin) 1 ea TOP DAILY [facility] Last Admin: 10/03/18 08:24 Dose: 1 ea Calcitriol (Rocaltrol) 0.25 mcg PO DAILY [facility] Last Admin: 10/03/18 08:25 Dose: 0.25 mcg Ferrous Gluconate (Fergon) 324 mg PO BID [facility] Last Admin: 10/03/18 08:25 Dose: 324 mg Finasteride (Proscar) 5 mg PO DAILY [facility] Last Admin: 10/03/18 08:25 Dose: 5 mg Metronidazole (Flagyl 500mg/100ml Ns) 100 mls @ 100 mls/hr IVPB Q8 [facility]; Protocol Last Admin: 10/03/18 08:26 Dose: 100 mls/hr Lactobacillus Acidophilus (Bacid Acidophilus) 1 cap PO BID [facility] Last Admin: 10/03/18 08:24 Dose: 1 cap Losartan Potassium (Cozaar) 50 mg PO DAILY [facility] Last Admin: 09/27/18 15:20 Dose: Not Given Metoprolol Tartrate (Lopressor) 5 mg IVP Q6 [facility] Last Admin: 10/03/18 04:59 Dose: Not Given Mirtazapine (Remeron) 15 mg PO HS [facility] Last Admin: 10/02/18 22:36 Dose: 15 mg Quetiapine Fumarate (Seroquel) 25 mg PO HS [facility] Last Admin: 10/02/18 22:36 Dose: 25 mg Sevelamer Carbonate (Renvela) 800 mg PO TID [facility] Last Admin: 10/03/18 08:25 Dose: 800 mg Vitamin B Complex/Vit C/Folic Acid (Nephro-Jj) 1 tab PO DAILY [facility] Last Admin: 10/03/18 08:25 Dose: 1 tab - Labs Labs: 10/02/18 08:26 10/02/18 08:24 PT 11.9 Seconds (9.8-13.1) 09/24/18 09:45 INR 1.0 09/24/18 09:45 APTT 26.7 Seconds (25.6-37.1) 09/24/18 09:45 - Constitutional Appears: No Acute Distress - Eye Exam Eye Exam: Conjunctival injection - ENT Exam ENT Exam: Mucous Membranes Moist - Neck Exam Neck Exam: absent: Lymphadenopathy - Respiratory Exam Respiratory Exam: NORMAL BREATHING PATTERN. absent: Chest Wall Tenderness - Cardiovascular Exam Cardiovascular Exam: Irregular Rhythm. 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
[2018-10-03] MEDS: Meropenem 500 MG in Sodium Chloride 0.9% 100 ML IVPB SCH ×3 (12:03→21:43)
[2018-10-03] MEDS: Vancomycin 500 mg (Oral/Rectal USE) PO SCH ×3 (16:16→22:25)
[2018-10-03 16:23] LABS: HEMOGLOBIN 10.4 g/dL (12.0-18.0); MEAN CELL VOLUME 94.9 fl (80.0-94.0); MEAN CORPUSCULAR HEMOGLOBIN 30.5 pg (27.0-31.0); MEAN CORPUSCULAR HGB CONC 32.2 g/dL (33.0-37.0); RBC 3.41 Mil/uL (4.40-5.90); RED CELL DISTRIBUTION WIDTH 24.6 % (11.5-14.5); WHITE BLOOD COUNT 4.6 K/uL (4.8-10.8)
[2018-10-03 16:54] LABS: ALB/GLOB RATIO 0.6 (1.0-2.1); ALBUMIN 1.6 g/dL (3.5-5.0); CALCIUM 7.6 mg/dL (8.4-10.2)
[2018-10-04] MEDS: metroNIDAZOLE 500mg/100ml NS 100 ML IVPB SCH ×3 (00:15→17:18)
[2018-10-04] MEDS: Metoprolol 1 mg/ml Inj IVP SCH (03:23)
[2018-10-04] MEDS: Vancomycin 500 mg (Oral/Rectal USE) PO SCH ×4 (03:23→21:40)
--- NOTE | 2018-10-04 08:30 | PN ---
DATE: 10/03/2018 SUBJECTIVE: The patient seen and examined. Interim events noted. Consults noted and appreciated. Cardiology followup and intervention noted and appreciated. The patient remains in progressive care unit on telemetry monitoring. The patient is awake, responsive, feels much better. No chest pain. No shortness of breath. No palpitation, no dizziness. PHYSICAL EXAMINATION: GENERAL: The patient is in no acute distress. VITAL SIGNS: Stable. HEART: S1, S2 normal and regular. LUNGS: Good bilateral air exchange. ABDOMEN: Soft, nontender. EXTREMITIES: No edema. No calf swelling. No tenderness. No acute ischemia. [facility]ES: Essentially unchanged. DIAGNOSTIC DATA: Available diagnostic data reviewed. Telemetry monitoring does not show significant arrhythmia. Hemoglobin is 12. ASSESSMENT AND PLAN: Overall the patient is medically stable. Plan as ordered. Hans Tineo MD
--- NOTE | 2018-10-04 08:35 | CP.PCM.PN ---
Subjective - Date & Time of Evaluation Date of Evaluation: 10/04/18 Time of Evaluation: 08:33 - Subjective Subjective: No significant changes reported overnight No new event reported no nausea no vomiting Objective - Vital Signs/Intake and Output Vital Signs (last 24 hours): Temp Pulse Resp BP Pulse Ox 97.9 F 94 H 20 107/72 100 10/04/18 08:11 10/04/18 08:11 10/04/18 08:11 10/04/18 08:11 10/04/18 08:11 - Medications Medications: Current Medications Acetaminophen (Tylenol 325mg Tab) 650 mg PO Q4 PRN PRN Reason: Fever >100.4 F Acetaminophen (Tylenol 325mg Tab) 650 mg PO Q4 PRN PRN Reason: Pain, Mild (1-3) Bacitracin (Bacitracin) 1 ea TOP DAILY [facility] Last Admin: 10/03/18 08:24 Dose: 1 ea Calcitriol (Rocaltrol) 0.25 mcg PO DAILY [facility] Last Admin: 10/03/18 08:25 Dose: 0.25 mcg Ferrous Gluconate (Fergon) 324 mg PO BID [facility] Last Admin: 10/03/18 16:15 Dose: Not Given Finasteride (Proscar) 5 mg PO DAILY [facility] Last Admin: 10/03/18 08:25 Dose: 5 mg Metronidazole (Flagyl 500mg/100ml Ns) 100 mls @ 100 mls/hr IVPB Q8 [facility]; Protocol Last Admin: 10/04/18 00:15 Dose: 100 mls/hr Meropenem 500 mg/ Sodium (Chloride) 100 mls @ 100 mls/hr IVPB Q12 [facility]; Protocol Last Admin: 10/03/18 21:43 Dose: Not Given Lactobacillus Acidophilus (Bacid Acidophilus) 1 cap PO BID [facility] Last Admin: 10/03/18 16:15 Dose: Not Given Losartan Potassium (Cozaar) 50 mg PO DAILY [facility] Last Admin: 09/27/18 15:20 Dose: Not Given Metoprolol Tartrate (Lopressor) 5 mg IVP Q6 [facility] Last Admin: 10/04/18 03:23 Dose: Not Given Mirtazapine (Remeron) 15 mg PO HS [facility] Last Admin: 10/03/18 22:25 Dose: Not Given Quetiapine Fumarate (Seroquel) 25 mg PO HS [facility] Last Admin: 10/03/18 22:25 Dose: Not Given Sevelamer Carbonate (Renvela) 800 mg PO TID [facility] Last Admin: 10/03/18 16:16 Dose: Not Given Vancomycin HCl (Vancocin (Oral/Rectal Use)) 125 mg PO Q6 [facility]; Protocol Last Admin: 10/04/18 03:23 Dose: Not Given Vitamin B Complex/Vit C/Folic Acid (Nephro-Jj) 1 tab PO DAILY [facility] Last Admin: 10/03/18 08:25 Dose: 1 tab - Labs Labs: 10/03/18 15:30 10/03/18 15:30 PT 11.9 Seconds (9.8-13.1) 09/24/18 09:45 INR 1.0 09/24/18 09:45 APTT 26.7 Seconds (25.6-37.1) 09/24/18 09:45 - Constitutional Appears: No Acute Distress - Eye Exam Eye Exam: absent: Conjunctival injection - ENT Exam ENT Exam: Mucous Membranes Moist - Neck Exam Neck Exam: absent: Lymphadenopathy - Respiratory Exam Respiratory Exam: NORMAL BREATHING PATTERN. 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
--- NOTE | 2018-10-04 08:49 | CP.PCM.PN ---
Subjective - Date & Time of Evaluation Date of Evaluation: 10/04/18 Time of Evaluation: 08:30 - Subjective Subjective: Pt appears a little more communicative today Eating breakfast in bed Denies any symptoms and says he feels comfortable HR mostly 90-100 BPM, A Fib BP 110/70 mm Hg No evidence of vol overload Lab show degree of azotemia stable over 4 days (HD now reduced to 2/Wk) Electrolytes and CBC also show fairly stable values Will switch B-blockade to oral Metoprolol Objective - Vital Signs/Intake and Output Vital Signs (last 24 hours): Temp Pulse Resp BP Pulse Ox 97.9 F 94 H 20 107/72 100 10/04/18 08:11 10/04/18 08:11 10/04/18 08:11 10/04/18 08:11 10/04/18 08:11 - Medications Medications: Current Medications Acetaminophen (Tylenol 325mg Tab) 650 mg PO Q4 PRN PRN Reason: Fever >100.4 F Acetaminophen (Tylenol 325mg Tab) 650 mg PO Q4 PRN PRN Reason: Pain, Mild (1-3) Bacitracin (Bacitracin) 1 ea TOP DAILY [facility] Last Admin: 10/03/18 08:24 Dose: 1 ea Calcitriol (Rocaltrol) 0.25 mcg PO DAILY [facility] Last Admin: 10/03/18 08:25 Dose: 0.25 mcg Ferrous Gluconate (Fergon) 324 mg PO BID [facility] Last Admin: 10/03/18 16:15 Dose: Not Given Finasteride (Proscar) 5 mg PO DAILY [facility] Last Admin: 10/03/18 08:25 Dose: 5 mg Metronidazole (Flagyl 500mg/100ml Ns) 100 mls @ 100 mls/hr IVPB Q8 [facility]; Protocol Last Admin: 10/04/18 00:15 Dose: 100 mls/hr Meropenem 500 mg/ Sodium (Chloride) 100 mls @ 100 mls/hr IVPB Q12 [facility]; Protocol Last Admin: 10/03/18 21:43 Dose: Not Given Lactobacillus Acidophilus (Bacid Acidophilus) 1 cap PO BID [facility] Last Admin: 10/03/18 16:15 Dose: Not Given Losartan Potassium (Cozaar) 50 mg PO DAILY [facility] Last Admin: 09/27/18 15:20 Dose: Not Given Metoprolol Tartrate (Lopressor) 50 mg PO Q12 [facility] Mirtazapine (Remeron) 15 mg PO HS [facility] Last Admin: 10/03/18 22:25 Dose: Not Given Quetiapine Fumarate (Seroquel) 25 mg PO HS [facility] Last Admin: 10/03/18 22:25 Dose: Not Given Sevelamer Carbonate (Renvela) 800 mg PO TID [facility] Last Admin: 10/03/18 16:16 Dose: Not Given Vancomycin HCl (Vancocin (Oral/Rectal Use)) 125 mg PO Q6 [facility]; Protocol Last Admin: 10/04/18 03:23 Dose: Not Given Vitamin B Complex/Vit C/Folic Acid (Nephro-Jj) 1 tab PO DAILY [facility] Last Admin: 10/03/18 08:25 Dose: 1 tab - Labs Labs: 10/03/18 15:30 10/03/18 15:30 PT 11.9 Seconds (9.8-13.1) 09/24/18 09:45 INR 1.0 09/24/18 09:45 APTT 26.7 Seconds (25.6-37.1) 09/24/18 09:45
[2018-10-04] MEDS: Lactobacillus Acidophilus 500 MU Cap PO SCH ×2 (09:12→17:17)
[2018-10-04] MEDS: Bacitracin 500 Units/gm Oint Foilpak UD TOP SCH (09:13)
[2018-10-04] MEDS: Multivitamin Vitamin B Complex (Nephro-Vite) Tab PO SCH (09:19)
[2018-10-04] MEDS: Meropenem 500 MG in Sodium Chloride 0.9% 100 ML IVPB SCH ×2 (09:30→21:40)
--- NOTE | 2018-10-04 10:18 | CP.PCM.PN ---
<Chris Vazquez - Last Filed: 10/04/18 10:38> Subjective - Date & Time of Evaluation Date of Evaluation: 10/04/18 Time of Evaluation: 06:00 - Subjective Subjective: Patient seen and examined this morning at bedside. NAD, denies any pain, no acute event overnight. No hematuria or diarrhea. Afebrile but tachy. Alert and awake this morning. Objective - Vital Signs/Intake and Output Vital Signs (last 24 hours): Temp Pulse Resp BP Pulse Ox 97.9 F 94 H 20 107/72 100 10/04/18 08:11 10/04/18 09:17 10/04/18 08:11 10/04/18 09:17 10/04/18 08:11 - Medications Medications: Current Medications Acetaminophen (Tylenol 325mg Tab) 650 mg PO Q4 PRN PRN Reason: Fever >100.4 F Acetaminophen (Tylenol 325mg Tab) 650 mg PO Q4 PRN PRN Reason: Pain, Mild (1-3) Bacitracin (Bacitracin) 1 ea TOP DAILY [facility] Last Admin: 10/04/18 09:13 Dose: 1 ea Calcitriol (Rocaltrol) 0.25 mcg PO DAILY [facility] Last Admin: 10/04/18 09:20 Dose: 0.25 mcg Ferrous Gluconate (Fergon) 324 mg PO BID [facility] Last Admin: 10/04/18 09:16 Dose: 324 mg Finasteride (Proscar) 5 mg PO DAILY [facility] Last Admin: 10/04/18 09:19 Dose: 5 mg Metronidazole (Flagyl 500mg/100ml Ns) 100 mls @ 100 mls/hr IVPB Q8 [facility]; Protocol Last Admin: 10/04/18 09:29 Dose: 100 mls/hr Meropenem 500 mg/ Sodium (Chloride) 100 mls @ 100 mls/hr IVPB Q12 [facility]; Protocol Last Admin: 10/04/18 09:30 Dose: 100 mls/hr Lactobacillus Acidophilus (Bacid Acidophilus) 1 cap PO BID [facility] Last Admin: 10/04/18 09:12 Dose: 1 cap Losartan Potassium (Cozaar) 50 mg PO DAILY [facility] Last Admin: 09/27/18 15:20 Dose: Not Given Metoprolol Tartrate (Lopressor) 50 mg PO Q12 [facility] Last Admin: 10/04/18 09:17 Dose: 50 mg Mirtazapine (Remeron) 15 mg PO HS [facility] Last Admin: 10/03/18 22:25 Dose: Not Given Quetiapine Fumarate (Seroquel) 25 mg PO [facility] Last Admin: 10/03/18 22:25 Dose: Not Given Sevelamer Carbonate (Renvela) 800 mg PO TID [facility] Last Admin: 10/04/18 09:20 Dose: 800 mg Vancomycin HCl (Vancocin (Oral/Rectal Use)) 125 mg PO Q6 [facility]; Protocol Last Admin: 10/04/18 03:23 Dose: Not Given Vitamin B Complex/Vit C/Folic Acid (Nephro-Jj) 1 tab PO DAILY [facility] Last Admin: 10/04/18 09:19 Dose: 1 tab - Labs Labs: 10/03/18 15:30 10/03/18 15:30 PT 11.9 Seconds (9.8-13.1) 09/24/18 09:45 INR 1.0 09/24/18 09:45 APTT 26.7 Seconds (25.6-37.1) 09/24/18 09:45 - Constitutional Appears: No Acute Distress - Head Exam Head Exam: NORMAL INSPECTION - Eye Exam Eye Exam: Normal appearance - ENT Exam ENT Exam: Mucous Membranes Moist - Neck Exam Neck Exam: Normal Inspection - Respiratory Exam Respiratory Exam: Clear to Ausculation Bilateral, NORMAL BREATHING PATTERN - Cardiovascular Exam Cardiovascular Exam: REGULAR RHYTHM, +S1, +S2 - GI/Abdominal Exam GI & Abdominal Exam: Soft, Normal Bowel Sounds - Extremities Exam Extremities Exam: Normal Inspection - Back Exam Back Exam: NORMAL INSPECTION - Neurological Exam Neurological Exam: Alert, Awake - Psychiatric Exam Psychiatric exam: Normal Affect - Skin Skin Exam: Normal Color Assessment and Plan - Assessment and Plan (Free Text) Assessment: A/P: 77 YO Male with PMHx of HTN, Atrial fibrillation, CHF (EF: 60%) and ESRD is admitted for anemia, ESRD, hematuria and a fib. A fib w/ RVR -acute on chronic, uncontrolled -tachycardic in 90s -Cardiology on consulted; recs appreciated, stable -s/p lopressor IV -C/w Metoprolol T 50mg PO Q12H -cardiac monitoring UTI-ESBL/Hematuria (gross) -acute -Ucx growth sig for Klebsiealla, sensitivity appreciated -ID consulted; recs appreciated, c/w jorgito IV -urology consulted; hematuria follow up recs -F/u repeat Ucx if negative d/c merro ESRD -acute on chronic -2/2 to interstitial renal disease, granulomatosis polyangiitis -Nephrology on board -s/p tunnel cath 09/26 -HD twice a week as per Nephro -Possible Vascular consult for AVF before discharge Anemia -acute on chronic -likely 2/2 to ESRD, hematuria, malignancy -s/p 2 units of PRBC on 09/29, on epo per nephro -Follow up CBC today C. diff pos -Per ID, started on PO vanc (started on 09/27) and flagyl IV -c/w probiotic HTN/CHF -chronic, controlled -c/w home meds DVT proplx: Heparin SC <Hans Tineo K - Last Filed: 10/06/18 10:34> Objective - Vital Signs/Intake and Output Vital Signs (last 24 hours): Temp Pulse Resp BP Pulse Ox 98.4 F 87 20 122/72 95 10/06/18 08:12 10/06/18 08:12 10/06/18 08:12 10/06/18 08:12 10/06/18 08:12 - Medications Medications: Current Medications Acetaminophen (Tylenol 325mg Tab) 650 mg PO Q4 PRN PRN Reason: Fever >100.4 F Acetaminophen (Tylenol 325mg Tab) 650 mg PO Q4 PRN PRN Reason: Pain, Mild (1-3) Bacitracin (Bacitracin) 1 ea TOP DAILY [facility] Last Admin: 10/06/18 10:12 Dose: Not Given Calcitriol (Rocaltrol) 0.25 mcg PO DAILY [facility] Last Admin: 10/06/18 10:13 Dose: Not Given Ferrous Gluconate (Fergon) 324 mg PO BID [facility] Last Admin: 10/06/18 10:12 Dose: Not Given Finasteride (Proscar) 5 mg PO DAILY [facility] Last Admin: 10/06/18 10:13 Dose: Not Given Metronidazole (Flagyl 500mg/100ml Ns) 100 mls @ 100 mls/hr IVPB Q8 [facility]; Protocol Last Admin: 10/06/18 08:50 Dose: Not Given Meropenem 500 mg/ Sodium (Chloride) 100 mls @ 100 mls/hr IVPB Q12 [facility]; Protocol Last Admin: 10/06/18 10:13 Dose: Not Given Lactobacillus Acidophilus (Bacid Acidophilus) 1 cap PO BID [facility] Last Admin: 10/06/18 10:12 Dose: Not Given Losartan Potassium (Cozaar) 50 mg PO DAILY [facility] Last Admin: 09/27/18 15:20 Dose: Not Given Metoprolol Tartrate (Lopressor) 50 mg PO Q12 [facility] Last Admin: 10/06/18 10:12 Dose: Not Given Mirtazapine (Remeron) 15 mg PO HS [facility] Last Admin: 10/05/18 21:02 Dose: 15 mg Quetiapine Fumarate (Seroquel) 25 mg PO HS [facility] Last Admin: 10/05/18 21:02 Dose: 25 mg Sevelamer Carbonate (Renvela) 800 mg PO TID [facility] Last Admin: 10/06/18 10:13 Dose: Not Given Vancomycin HCl (Vancocin (Oral/Rectal Use)) 125 mg PO Q6 [facility]; Protocol Last Admin: 10/06/18 10:13 Dose: Not Given Vitamin B Complex/Vit C/Folic Acid (Nephro-Jj) 1 tab PO DAILY [facility] Last Admin: 10/06/18 10:13 Dose: Not Given - Labs Labs: 10/05/18 14:02 10/05/18 14:02 PT 11.9 Seconds (9.8-13.1) 09/24/18 09:45 INR 1.0 09/24/18 09:45 APTT 26.7 Seconds (25.6-37.1) 09/24/18 09:45 Assessment and Plan - Assessment and Plan (Free Text) Assessment: Patient was personally seen and examined by me in rounds with residents. Available labs and diagnostic data reviewed. Case, Patient's condition and management plan discussed with residents in rounds. Agree with resident's progress note. Plan: As ordered.
[2018-10-05] MEDS: metroNIDAZOLE 500mg/100ml NS 100 ML IVPB SCH ×3 (01:06→17:38)
[2018-10-05] MEDS: Vancomycin 500 mg (Oral/Rectal USE) PO SCH ×4 (03:37→21:02)
--- NOTE | 2018-10-05 08:43 | CP.PCM.PN ---
<Chris Vazquez - Last Filed: 10/05/18 09:16> Subjective - Date & Time of Evaluation Date of Evaluation: 10/05/18 Time of Evaluation: 07:30 - Subjective Subjective: Patient seen and examined this morning at bedside with Dr. Tinoe. Patient is alert and awake, verbally responsive, denies any pain or acute health changes. No hematuria or diarrhea overnight. A.fib noted overnight but stable heart rate. - Patient has been refusing Blood work, explained importance of blood work Objective - Vital Signs/Intake and Output Vital Signs (last 24 hours): Temp Pulse Resp BP Pulse Ox 97.8 F 90 18 114/63 100 10/05/18 08:11 10/05/18 08:11 10/05/18 08:11 10/05/18 08:11 10/05/18 08:11 - Medications Medications: Current Medications Acetaminophen (Tylenol 325mg Tab) 650 mg PO Q4 PRN PRN Reason: Fever >100.4 F Acetaminophen (Tylenol 325mg Tab) 650 mg PO Q4 PRN PRN Reason: Pain, Mild (1-3) Bacitracin (Bacitracin) 1 ea TOP DAILY [facility] Last Admin: 10/04/18 09:13 Dose: 1 ea Calcitriol (Rocaltrol) 0.25 mcg PO DAILY [facility] Last Admin: 10/04/18 09:20 Dose: 0.25 mcg Ferrous Gluconate (Fergon) 324 mg PO BID [facility] Last Admin: 10/04/18 21:40 Dose: Not Given Finasteride (Proscar) 5 mg PO DAILY [facility] Last Admin: 10/04/18 09:19 Dose: 5 mg Metronidazole (Flagyl 500mg/100ml Ns) 100 mls @ 100 mls/hr IVPB Q8 [facility]; Protocol Last Admin: 10/05/18 01:06 Dose: Not Given Meropenem 500 mg/ Sodium (Chloride) 100 mls @ 100 mls/hr IVPB Q12 [facility]; Protocol Last Admin: 10/04/18 21:40 Dose: Not Given Lactobacillus Acidophilus (Bacid Acidophilus) 1 cap PO BID [facility] Last Admin: 10/04/18 17:17 Dose: 1 cap Losartan Potassium (Cozaar) 50 mg PO DAILY [facility] Last Admin: 09/27/18 15:20 Dose: Not Given Metoprolol Tartrate (Lopressor) 50 mg PO Q12 [facility] Last Admin: 10/04/18 21:36 Dose: 50 mg Mirtazapine (Remeron) 15 mg PO [facility] Last Admin: 10/04/18 21:40 Dose: Not Given Quetiapine Fumarate (Seroquel) 25 mg PO HS [facility] Last Admin: 10/04/18 21:40 Dose: Not Given Sevelamer Carbonate (Renvela) 800 mg PO TID [facility] Last Admin: 10/04/18 17:18 Dose: 800 mg Vancomycin HCl (Vancocin (Oral/Rectal Use)) 125 mg PO Q6 [facility]; Protocol Last Admin: 10/05/18 03:37 Dose: Not Given Vitamin B Complex/Vit C/Folic Acid (Nephro-Jj) 1 tab PO DAILY [facility] Last Admin: 10/04/18 09:19 Dose: 1 tab - Labs Labs: 10/03/18 15:30 10/03/18 15:30 PT 11.9 Seconds (9.8-13.1) 09/24/18 09:45 INR 1.0 09/24/18 09:45 APTT 26.7 Seconds (25.6-37.1) 09/24/18 09:45 - Constitutional Appears: No Acute Distress - Head Exam Head Exam: NORMAL INSPECTION - Eye Exam Eye Exam: Normal appearance - ENT Exam ENT Exam: Mucous Membranes Moist - Neck Exam Neck Exam: Normal Inspection - Respiratory Exam Respiratory Exam: Clear to Ausculation Bilateral, NORMAL BREATHING PATTERN. absent: Rhonchi, Wheezes - Cardiovascular Exam Cardiovascular Exam: REGULAR RHYTHM, +S1, +S2 - GI/Abdominal Exam GI & Abdominal Exam: Soft, Normal Bowel Sounds. absent: Tenderness - Extremities Exam Extremities Exam: Normal Inspection - Back Exam Back Exam: NORMAL INSPECTION - Neurological Exam Neurological Exam: Alert, Awake - Psychiatric Exam Psychiatric exam: Normal Affect - Skin Skin Exam: Normal Color Assessment and Plan - Assessment and Plan (Free Text) Assessment: A/P: 77 YO Male with PMHx of HTN, Atrial fibrillation, CHF (EF: 60%) and ESRD is admitted for anemia, ESRD, hematuria and a fib. A fib w/ RVR -acute on chronic, uncontrolled -HR stable in 80s -Cardiology on consulted; recs appreciated, stable -s/p lopressor IV -C/w Metoprolol T 50mg PO Q12H -cardiac monitoring UTI-ESBL/Hematuria (gross) -acute -Ucx growth sig for Klebsiealla, sensitivity appreciated -ID consulted; recs appreciated, c/w jorgito IV -urology consulted; hematuria follow up recs -F/u repeat Ucx if negative d/c merro ESRD -acute on chronic -2/2 to interstitial renal disease, granulomatosis polyangiitis -Nephrology on board -s/p tunnel cath 09/26 -HD twice a week as per Nephro -Possible Vascular consult for AVF before discharge Anemia -acute on chronic -likely 2/2 to ESRD, hematuria, malignancy -s/p 2 units of PRBC on 09/29, on epo per nephro -Patient is refusing blood work -F/u CBC today C. diff pos -Per ID, started on PO vanc (started on 09/27) and flagyl IV -c/w probiotic -No diarrhea HTN/CHF -chronic, controlled -c/w home meds DVT proplx: SCD for now <Hans Tineo - Last Filed: 10/06/18 10:33> Objective - Vital Signs/Intake and Output Vital Signs (last 24 hours): Temp Pulse Resp BP Pulse Ox 98.4 F 87 20 122/72 95 10/06/18 08:12 10/06/18 08:12 10/06/18 08:12 10/06/18 08:12 10/06/18 08:12 - Medications Medications: Current Medications Acetaminophen (Tylenol 325mg Tab) 650 mg PO Q4 PRN PRN Reason: Fever >100.4 F Acetaminophen (Tylenol 325mg Tab) 650 mg PO Q4 PRN PRN Reason: Pain, Mild (1-3) Bacitracin (Bacitracin) 1 ea TOP DAILY [facility] Last Admin: 10/06/18 10:12 Dose: Not Given Calcitriol (Rocaltrol) 0.25 mcg PO DAILY [facility] Last Admin: 10/06/18 10:13 Dose: Not Given Ferrous Gluconate (Fergon) 324 mg PO BID [facility] Last Admin: 10/06/18 10:12 Dose: Not Given Finasteride (Proscar) 5 mg PO DAILY [facility] Last Admin: 10/06/18 10:13 Dose: Not Given Metronidazole (Flagyl 500mg/100ml Ns) 100 mls @ 100 mls/hr IVPB Q8 [facility]; [facility] Last Admin: 10/06/18 08:50 Dose: Not Given Meropenem 500 mg/ Sodium (Chloride) 100 mls @ 100 mls/hr IVPB Q12 [facility]; Protocol Last Admin: 10/06/18 10:13 Dose: Not Given Lactobacillus Acidophilus (Bacid Acidophilus) 1 cap PO BID [facility] Last Admin: 10/06/18 10:12 Dose: Not Given Losartan Potassium (Cozaar) 50 mg PO DAILY [facility] Last Admin: 09/27/18 15:20 Dose: Not Given Metoprolol Tartrate (Lopressor) 50 mg PO Q12 [facility] Last Admin: 10/06/18 10:12 Dose: Not Given Mirtazapine (Remeron) 15 mg PO HS [facility] Last Admin: 10/05/18 21:02 Dose: 15 mg Quetiapine Fumarate (Seroquel) 25 mg PO HS [facility] Last Admin: 10/05/18 21:02 Dose: 25 mg Sevelamer Carbonate (Renvela) 800 mg PO TID [facility] Last Admin: 10/06/18 10:13 Dose: Not Given Vancomycin HCl (Vancocin (Oral/Rectal Use)) 125 mg PO Q6 [facility]; Protocol Last Admin: 10/06/18 10:13 Dose: Not Given Vitamin B Complex/Vit C/Folic Acid (Nephro-Jj) 1 tab PO DAILY [facility] Last Admin: 10/06/18 10:13 Dose: Not Given - Labs Labs: 10/05/18 14:02 10/05/18 14:02 PT 11.9 Seconds (9.8-13.1) 09/24/18 09:45 INR 1.0 09/24/18 09:45 APTT 26.7 Seconds (25.6-37.1) 09/24/18 09:45 Assessment and Plan - Assessment and Plan (Free Text) Assessment: Patient was personally seen and examined by me in rounds with residents. Available labs and diagnostic data reviewed. Case, Patient's condition and management plan discussed with residents in rounds. Agree with resident's progress note. Plan: As ordered.
[2018-10-05] MEDS: Bacitracin 500 Units/gm Oint Foilpak UD TOP SCH (08:49)
[2018-10-05] MEDS: Multivitamin Vitamin B Complex (Nephro-Vite) Tab PO SCH (08:49)
--- NOTE | 2018-10-05 09:06 | CP.PCM.PN ---
Subjective - Date & Time of Evaluation Date of Evaluation: 10/05/18 Time of Evaluation: 09:05 - Subjective Subjective: No new event reported overnight Vital signs noted to be stable Patient still communicating intermittently Objective - Vital Signs/Intake and Output Vital Signs (last 24 hours): Temp Pulse Resp BP Pulse Ox 97.8 F 90 18 114/63 100 10/05/18 08:11 10/05/18 08:48 10/05/18 08:11 10/05/18 08:48 10/05/18 08:11 - Medications Medications: Current Medications Acetaminophen (Tylenol 325mg Tab) 650 mg PO Q4 PRN PRN Reason: Fever >100.4 F Acetaminophen (Tylenol 325mg Tab) 650 mg PO Q4 PRN PRN Reason: Pain, Mild (1-3) Bacitracin (Bacitracin) 1 ea TOP DAILY [facility] Last Admin: 10/05/18 08:49 Dose: 1 ea Calcitriol (Rocaltrol) 0.25 mcg PO DAILY [facility] Last Admin: 10/05/18 08:49 Dose: 0.25 mcg Ferrous Gluconate (Fergon) 324 mg PO BID [facility] Last Admin: 10/05/18 08:48 Dose: 324 mg Finasteride (Proscar) 5 mg PO DAILY [facility] Last Admin: 10/05/18 08:48 Dose: 5 mg Metronidazole (Flagyl 500mg/100ml Ns) 100 mls @ 100 mls/hr IVPB Q8 [facility]; Protocol Last Admin: 10/05/18 09:00 Dose: Not Given Meropenem 500 mg/ Sodium (Chloride) 100 mls @ 100 mls/hr IVPB Q12 [facility]; Protocol Last Admin: 10/04/18 21:40 Dose: Not Given Lactobacillus Acidophilus (Bacid Acidophilus) 1 cap PO BID [facility] Last Admin: 10/04/18 17:17 Dose: 1 cap Losartan Potassium (Cozaar) 50 mg PO DAILY [facility] Last Admin: 09/27/18 15:20 Dose: Not Given Metoprolol Tartrate (Lopressor) 50 mg PO Q12 [facility] Last Admin: 10/05/18 08:48 Dose: 50 mg Mirtazapine (Remeron) 15 mg PO HS [facility] Last Admin: 10/04/18 21:40 Dose: Not Given Quetiapine Fumarate (Seroquel) 25 mg PO HS [facility] Last Admin: 10/04/18 21:40 Dose: Not Given Sevelamer Carbonate (Renvela) 800 mg PO TID [facility] Last Admin: 10/05/18 08:47 Dose: 800 mg Vancomycin HCl (Vancocin (Oral/Rectal Use)) 125 mg PO Q6 [facility]; Protocol Last Admin: 10/05/18 03:37 Dose: Not Given Vitamin B Complex/Vit C/Folic Acid (Nephro-Jj) 1 tab PO DAILY [facility] Last Admin: 10/05/18 08:49 Dose: 1 tab - Labs Labs: 10/03/18 15:30 10/03/18 15:30 PT 11.9 Seconds (9.8-13.1) 09/24/18 09:45 INR 1.0 09/24/18 09:45 APTT 26.7 Seconds (25.6-37.1) 09/24/18 09:45 - Constitutional Appears: No Acute Distress - Eye Exam Eye Exam: Conjunctival injection - ENT Exam ENT Exam: Mucous Membranes Moist - Neck Exam Neck Exam: absent: Lymphadenopathy - Respiratory Exam Respiratory Exam: NORMAL BREATHING PATTERN. 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) Atrial fibrillation anemia Plan Continue EPO for anemia hemodialysis twice a week Wednesday and As per primary team with the antibiotics and management of cardiac arrhythmia atrial fibrillation Status: Chronic (3) Anemia Status: Chronic
[2018-10-05] MEDS: Lactobacillus Acidophilus 500 MU Cap PO SCH ×2 (09:39→16:11)
[2018-10-05] MEDS: Meropenem 500 MG in Sodium Chloride 0.9% 100 ML IVPB SCH ×2 (09:40→21:00)
--- NOTE | 2018-10-05 10:07 | CP.PCM.PN ---
Subjective - Date & Time of Evaluation Date of Evaluation: 10/05/18 Time of Evaluation: 09:00 - Subjective Subjective: Poorly communicative. Has eaten most of his breakfast today. Denies any symptoms and breathes comfortably lying virtually flat in bed. Telemetry shows much better controlled heart rate at 70-80 bpm, A. fib. Blood pressure 112/74 mmHg. No evidence of volume overload in the form of raised JVP or sacral edema. No labs available since 4th, since patient refuses blood draw. Stable from cardiovascular point of view Gets hemodialysis twice a week. Objective - Vital Signs/Intake and Output Vital Signs (last 24 hours): Temp Pulse Resp BP Pulse Ox 97.8 F 99 H 18 114/63 100 10/05/18 09:00 10/05/18 09:00 10/05/18 09:00 10/05/18 09:00 10/05/18 09:00 - Medications Medications: Current Medications Acetaminophen (Tylenol 325mg Tab) 650 mg PO Q4 PRN PRN Reason: Fever >100.4 F Acetaminophen (Tylenol 325mg Tab) 650 mg PO Q4 PRN PRN Reason: Pain, Mild (1-3) Bacitracin (Bacitracin) 1 ea TOP DAILY [facility] Last Admin: 10/05/18 08:49 Dose: 1 ea Calcitriol (Rocaltrol) 0.25 mcg PO DAILY [facility] Last Admin: 10/05/18 08:49 Dose: 0.25 mcg Ferrous Gluconate (Fergon) 324 mg PO BID [facility] Last Admin: 10/05/18 08:48 Dose: 324 mg Finasteride (Proscar) 5 mg PO DAILY [facility] Last Admin: 10/05/18 08:48 Dose: 5 mg Metronidazole (Flagyl 500mg/100ml Ns) 100 mls @ 100 mls/hr IVPB Q8 [facility]; Protocol Last Admin: 10/05/18 09:00 Dose: Not Given Meropenem 500 mg/ Sodium (Chloride) 100 mls @ 100 mls/hr IVPB Q12 [facility]; Protocol Last Admin: 10/05/18 09:40 Dose: Not Given Lactobacillus Acidophilus (Bacid Acidophilus) 1 cap PO BID [facility] Last Admin: 10/05/18 09:39 Dose: 1 cap Losartan Potassium (Cozaar) 50 mg PO DAILY [facility] Last Admin: 09/27/18 15:20 Dose: Not Given Metoprolol Tartrate (Lopressor) 50 mg PO Q12 [facility] Last Admin: 10/05/18 08:48 Dose: 50 mg Mirtazapine (Remeron) 15 mg PO HS [facility] Last Admin: 10/04/18 21:40 Dose: Not Given Quetiapine Fumarate (Seroquel) 25 mg PO HS [facility] Last Admin: 10/04/18 21:40 Dose: Not Given Sevelamer Carbonate (Renvela) 800 mg PO TID [facility] Last Admin: 10/05/18 08:47 Dose: 800 mg Vancomycin HCl (Vancocin (Oral/Rectal Use)) 125 mg PO Q6 [facility]; Protocol Last Admin: 10/05/18 03:37 Dose: Not Given Vitamin B Complex/Vit C/Folic Acid (Nephro-Jj) 1 tab PO DAILY [facility] Last Admin: 10/05/18 08:49 Dose: 1 tab - Labs Labs: 10/03/18 15:30 10/03/18 15:30 PT 11.9 Seconds (9.8-13.1) 09/24/18 09:45 INR 1.0 09/24/18 09:45 APTT 26.7 Seconds (25.6-37.1) 09/24/18 09:45
[2018-10-05] MEDS ORDERED: Lidocaine 1% Inj (20ml) ONE (12:11)
--- NOTE | 2018-10-05 12:18 | CP.PCM.CON ---
History of Present Illness - History of Present Illness History of Present Illness: Psychiatry consult called to evaluate capacity to make medical decisions CC: Refusal of medications HPI: 77 yo male, half-way resident, admitted w/ hypotension, sepsis, UTI, currently refusing treatment. Patient is only oriented to self. He is not able to explain why he is the hospital, give any relevant medical history, weigh the risks/benefits of treatment. Pt denied depression/anxiety/AH/VH/SI/HI. Impression: 77 yo male w/ major neurocognitive impairment, r/o acute delirium. -Patient does not have capacity to make medical decisions at this time Past Patient History - Infectious Disease Hx of Infectious Diseases: None - Past Medical History & Family History Past Medical History?: Yes - Past Social History Smoking Status: Former Smoker - CARDIAC Hx Atrial Fibrillation: Yes Hx Congestive Heart Failure: Yes Hx Hypertension: Yes - PULMONARY Hx Respiratory Disorders: No - NEUROLOGICAL Hx Neurological Disorder: No - HEENT Hx HEENT Problems: Yes - RENAL Hx Chronic Kidney Disease: Yes - ENDOCRINE/METABOLIC Hx Endocrine Disorders: Yes - HEMATOLOGICAL/ONCOLOGICAL Hx AIDS: No Hx Anemia: Yes Hx Human Immunodeficiency Virus (HIV): No - INTEGUMENTARY Hx Dermatological Problems: No - MUSCULOSKELETAL/RHEUMATOLOGICAL Hx Arthritis: Yes Hx Falls: Yes - GASTROINTESTINAL Hx Gastrointestinal Disorders: No - GENITOURINARY/GYNECOLOGICAL Hx Genitourinary Disorders: Yes (RETENTION BUTLER TO SGD) - PSYCHIATRIC Hx Psychophysiologic Disorder: No Hx Substance Use: No - SURGICAL HISTORY Hx Appendectomy: Yes - ANESTHESIA Hx Anesthesia: Yes Hx Anesthesia Reactions: No Hx Malignant Hyperthermia: No Meds Allergies/Adverse Reactions: Allergies Allergy/AdvReac Type Severity Reaction Status Date / Time No Known Allergies Allergy Verified 09/24/18 09:26 - Medications Medications: Current Medications Acetaminophen (Tylenol 325mg Tab) 650 mg PO Q4 PRN PRN Reason: Fever >100.4 F Acetaminophen (Tylenol 325mg Tab) 650 mg PO Q4 PRN PRN Reason: Pain, Mild (1-3) Bacitracin (Bacitracin) 1 ea TOP DAILY [facility] Last Admin: 10/05/18 08:49 Dose: 1 ea Calcitriol (Rocaltrol) 0.25 mcg PO DAILY [facility] Last Admin: 10/05/18 08:49 Dose: 0.25 mcg Ferrous Gluconate (Fergon) 324 mg PO BID [facility] Last Admin: 10/05/18 08:48 Dose: 324 mg Finasteride (Proscar) 5 mg PO DAILY [facility] Last Admin: 10/05/18 08:48 Dose: 5 mg Metronidazole (Flagyl 500mg/100ml Ns) 100 mls @ 100 mls/hr IVPB Q8 [facility]; Protocol Last Admin: 10/05/18 09:00 Dose: Not Given Meropenem 500 mg/ Sodium (Chloride) 100 mls @ 100 mls/hr IVPB Q12 [facility]; Protocol Last Admin: 10/05/18 09:40 Dose: Not Given Lactobacillus Acidophilus (Bacid Acidophilus) 1 cap PO BID [facility] Last Admin: 10/05/18 09:39 Dose: 1 cap Losartan Potassium (Cozaar) 50 mg PO DAILY [facility] Last Admin: 09/27/18 15:20 Dose: Not Given Metoprolol Tartrate (Lopressor) 50 mg PO Q12 [facility] Last Admin: 10/05/18 08:48 Dose: 50 mg Mirtazapine (Remeron) 15 mg PO HS [facility] Last Admin: 10/04/18 21:40 Dose: Not Given Quetiapine Fumarate (Seroquel) 25 mg PO HS [facility] Last Admin: 10/04/18 21:40 Dose: Not Given Sevelamer Carbonate (Renvela) 800 mg PO TID [facility] Last Admin: 10/05/18 08:47 Dose: 800 mg Vancomycin HCl (Vancocin (Oral/Rectal Use)) 125 mg PO Q6 [facility]; Protocol Last Admin: 10/05/18 03:37 Dose: Not Given Vitamin B Complex/Vit C/Folic Acid (Nephro-Jj) 1 tab PO DAILY [facility] Last Admin: 10/05/18 08:49 Dose: 1 tab Results - Vital Signs Recent Vital Signs: Last Vital Signs Temp 97.5 F L 10/05/18 12:15 Pulse 74 10/05/18 12:15 Resp 18 10/05/18 12:15 BP 99/64 L 10/05/18 12:15 Pulse Ox 98 10/05/18 12:15 - Labs Result Diagrams: 10/03/18 15:30 10/03/18 15:30
--- NOTE | 2018-10-05 13:35 | CP.PCM.PN ---
Subjective - Date & Time of Evaluation Date of Evaluation: 10/05/18 Time of Evaluation: 08:00 - Subjective Subjective: LESS DIARRHEA AWAKE nad SLOW PROGRESS Objective - Vital Signs/Intake and Output Vital Signs (last 24 hours): Temp Pulse Resp BP Pulse Ox 97.5 F L 74 18 99/64 L 98 10/05/18 12:15 10/05/18 12:15 10/05/18 12:15 10/05/18 12:15 10/05/18 12:15 Intake and Output: 10/05/18 10/05/18 06:59 18:59 Intake Total 360 Balance 360 - Medications Medications: Current Medications Acetaminophen (Tylenol 325mg Tab) 650 mg PO Q4 PRN PRN Reason: Fever >100.4 F Acetaminophen (Tylenol 325mg Tab) 650 mg PO Q4 PRN PRN Reason: Pain, Mild (1-3) Bacitracin (Bacitracin) 1 ea TOP DAILY [facility] Last Admin: 10/05/18 08:49 Dose: 1 ea Calcitriol (Rocaltrol) 0.25 mcg PO DAILY [facility] Last Admin: 10/05/18 08:49 Dose: 0.25 mcg Ferrous Gluconate (Fergon) 324 mg PO BID [facility] Last Admin: 10/05/18 08:48 Dose: 324 mg Finasteride (Proscar) 5 mg PO DAILY [facility] Last Admin: 10/05/18 08:48 Dose: 5 mg Metronidazole (Flagyl 500mg/100ml Ns) 100 mls @ 100 mls/hr IVPB Q8 [facility]; Protocol Last Admin: 10/05/18 09:00 Dose: Not Given Meropenem 500 mg/ Sodium (Chloride) 100 mls @ 100 mls/hr IVPB Q12 [facility]; Protocol Last Admin: 10/05/18 09:40 Dose: Not Given Lactobacillus Acidophilus (Bacid Acidophilus) 1 cap PO BID [facility] Last Admin: 10/05/18 09:39 Dose: 1 cap Losartan Potassium (Cozaar) 50 mg PO DAILY [facility] Last Admin: 09/27/18 15:20 Dose: Not Given Metoprolol Tartrate (Lopressor) 50 mg PO Q12 [facility] Last Admin: 10/05/18 08:48 Dose: 50 mg Mirtazapine (Remeron) 15 mg PO HS [facility] Last Admin: 10/04/18 21:40 Dose: Not Given Quetiapine Fumarate (Seroquel) 25 mg PO HS [facility] Last Admin: 10/04/18 21:40 Dose: Not Given Sevelamer Carbonate (Renvela) 800 mg PO TID [facility] Last Admin: 10/05/18 08:47 Dose: 800 mg Vancomycin HCl (Vancocin (Oral/Rectal Use)) 125 mg PO Q6 [facility]; Protocol Last Admin: 10/05/18 03:37 Dose: Not Given Vitamin B Complex/Vit C/Folic Acid (Nephro-Jj) 1 tab PO DAILY [facility] Last Admin: 10/05/18 08:49 Dose: 1 tab - Labs Labs: 10/03/18 15:30 10/03/18 15:30 PT 11.9 Seconds (9.8-13.1) 09/24/18 09:45 INR 1.0 09/24/18 09:45 APTT 26.7 Seconds (25.6-37.1) 09/24/18 09:45 - Constitutional Appears: Non-toxic, Chronically Ill - Head Exam Head Exam: NORMOCEPHALIC - Eye Exam Eye Exam: absent: Scleral icterus - ENT Exam ENT Exam: Mucous Membranes Dry - Neck Exam Neck Exam: absent: Lymphadenopathy - Respiratory Exam Respiratory Exam: Decreased Breath Sounds - Cardiovascular Exam Cardiovascular Exam: REGULAR RHYTHM - GI/Abdominal Exam GI & Abdominal Exam: Distended - Rectal Exam Rectal Exam: Deferred - Exam Exam: NORMAL INSPECTION - Extremities Exam Extremities Exam: absent: Pedal Edema - Back Exam Back Exam: absent: CVA tenderness (L), CVA tenderness (R) - Neurological Exam Neurological Exam: Alert, Awake Assessment and Plan (1) Atrial fibrillation with RVR Status: Acute (2) Anemia Status: Chronic (3) ESRD (end stage renal disease) Status: Chronic (4) Acute on chronic renal failure Status: Acute (5) Hepatitis C Status: Acute - Assessment and Plan (Free Text) Assessment: CONT IV AND PO RX
[2018-10-05 14:07] LABS: BASO # 0.1 K/uL (0.0-0.2); BASO % 1.3 % (0.0-2.0); EOS # 0.2 K/uL (0.0-0.7); EOS % 5.6 % (0.0-4.0); HEMOGLOBIN 11.4 g/dL (12.0-18.0); LYMPH # 0.7 K/uL (1.0-4.3); LYMPH % 15.2 % (20.0-40.0); MEAN CELL VOLUME 94.8 fl (80.0-94.0); MEAN CORPUSCULAR HEMOGLOBIN 30.4 pg (27.0-31.0); MEAN PLATELET VOLUME 7.5 fl (7.2-11.7); MONO # 0.7 K/uL (0.0-0.8); MONO % 16.6 % (0.0-10.0); NEUT # 2.6 K/uL (1.8-7.0); NEUT % 61.3 % (50.0-75.0); NRBC % 0.1 % (0.0-0.0); RBC 3.77 Mil/uL (4.40-5.90); RED CELL DISTRIBUTION WIDTH 24.5 % (11.5-14.5); WHITE BLOOD COUNT 4.3 K/uL (4.8-10.8)
[2018-10-05 14:22] LABS: ALB/GLOB RATIO 0.6 (1.0-2.1); ALBUMIN 1.9 g/dL (3.5-5.0); CALCIUM 7.5 mg/dL (8.4-10.2)
[2018-10-05] MEDS ORDERED: Potassium Chloride 20 mEq ER Tab PO ONE (14:23)
[2018-10-06] MEDS: metroNIDAZOLE 500mg/100ml NS 100 ML IVPB SCH ×3 (00:33→17:20)
[2018-10-06] MEDS: Vancomycin 500 mg (Oral/Rectal USE) PO SCH ×3 (04:26→17:20)
[2018-10-06] MEDS: Bacitracin 500 Units/gm Oint Foilpak UD TOP SCH (10:12)
[2018-10-06] MEDS: Lactobacillus Acidophilus 500 MU Cap PO SCH ×2 (10:12→17:20)
[2018-10-06] MEDS: Meropenem 500 MG in Sodium Chloride 0.9% 100 ML IVPB SCH ×2 (10:13→21:07)
[2018-10-06] MEDS: Multivitamin Vitamin B Complex (Nephro-Vite) Tab PO SCH (10:13)
--- NOTE | 2018-10-06 10:17 | CP.PCM.PN ---
Subjective - Date & Time of Evaluation Date of Evaluation: 10/06/18 Time of Evaluation: 10:17 - Subjective Subjective: No new event reported overnight Vital signs noted to be stable Chronically debilitated Objective - Vital Signs/Intake and Output Vital Signs (last 24 hours): Temp Pulse Resp BP Pulse Ox 98.4 F 87 20 122/72 95 10/06/18 08:12 10/06/18 08:12 10/06/18 08:12 10/06/18 08:12 10/06/18 08:12 - Medications Medications: Current Medications Acetaminophen (Tylenol 325mg Tab) 650 mg PO Q4 PRN PRN Reason: Fever >100.4 F Acetaminophen (Tylenol 325mg Tab) 650 mg PO Q4 PRN PRN Reason: Pain, Mild (1-3) Bacitracin (Bacitracin) 1 ea TOP DAILY [facility] Last Admin: 10/06/18 10:12 Dose: Not Given Calcitriol (Rocaltrol) 0.25 mcg PO DAILY [facility] Last Admin: 10/06/18 10:13 Dose: Not Given Ferrous Gluconate (Fergon) 324 mg PO BID [facility] Last Admin: 10/06/18 10:12 Dose: Not Given Finasteride (Proscar) 5 mg PO DAILY [facility] Last Admin: 10/06/18 10:13 Dose: Not Given Metronidazole (Flagyl 500mg/100ml Ns) 100 mls @ 100 mls/hr IVPB Q8 [facility]; Protocol Last Admin: 10/06/18 08:50 Dose: Not Given Meropenem 500 mg/ Sodium (Chloride) 100 mls @ 100 mls/hr IVPB Q12 [facility]; Protocol Last Admin: 10/06/18 10:13 Dose: Not Given Lactobacillus Acidophilus (Bacid Acidophilus) 1 cap PO BID [facility] Last Admin: 10/06/18 10:12 Dose: Not Given Losartan Potassium (Cozaar) 50 mg PO DAILY [facility] Last Admin: 09/27/18 15:20 Dose: Not Given Metoprolol Tartrate (Lopressor) 50 mg PO Q12 [facility] Last Admin: 10/06/18 10:12 Dose: Not Given Mirtazapine (Remeron) 15 mg PO HS [facility] Last Admin: 10/05/18 21:02 Dose: 15 mg Quetiapine Fumarate (Seroquel) 25 mg PO HS [facility] Last Admin: 10/05/18 21:02 Dose: 25 mg Sevelamer Carbonate (Renvela) 800 mg PO TID [facility] Last Admin: 10/06/18 10:13 Dose: Not Given Vancomycin HCl (Vancocin (Oral/Rectal Use)) 125 mg PO Q6 [facility]; Protocol Last Admin: 10/06/18 10:13 Dose: Not Given Vitamin B Complex/Vit C/Folic Acid (Nephro-Jj) 1 tab PO DAILY [facility] Last Admin: 10/06/18 10:13 Dose: Not Given - Labs Labs: 10/05/18 14:02 10/05/18 14:02 PT 11.9 Seconds (9.8-13.1) 09/24/18 09:45 INR 1.0 09/24/18 09:45 APTT 26.7 Seconds (25.6-37.1) 09/24/18 09:45 - Constitutional Appears: No Acute Distress - Eye Exam Eye Exam: Conjunctival injection - ENT Exam ENT Exam: Mucous Membranes Moist - Respiratory Exam Respiratory Exam: NORMAL BREATHING PATTERN. 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) Atrial fibrillation anemia Plan Continue EPO for anemia As per primary team with the antibiotics and management of cardiac arrhythmia atrial fibrillation Hold hemodialysis for few days to monitor kidney function and see what happens next few days since serum creatinine around 2.0 This is summary of previous admission multitude of medical problem gross hematuria severe anemia prostatic CA status post multiple cystoscopy previous admission Also for history when the patient was diagnosed with the above diagnosis he has a following treatment previous admission Pulses steroid for 3 days Rituximab 1 g twice 4 weeks apart Oral steroid Plasma phoresis And the patient continued to need dialysis s/p Amicar drip s/p cryopercipitate transfusion; goal fibrinogen > 200 - has been stable after transfusion s/p ddavp s/p vit k Status: Chronic (3) Anemia Status: Chronic
--- NOTE | 2018-10-06 14:46 | PN ---
DATE: 10/06/2018 SUBJECTIVE: The patient seen and examined. Interim events noted. Consults noted, appreciated. The patient remains in progressive care unit with telemetry monitoring. Nephrology, Cardiology followup and interventions noted and appreciated. The patient is sleeping, arousable. Denies any specific complaint. No chest pain or shortness of breath. PHYSICAL EXAMINATION: GENERAL: The patient is in no acute distress. VITAL SIGNS: Stable. HEART: S1 and S2, normal, regular. LUNGS: Good bilateral air exchange. ABDOMEN: Soft, nontender. EXTREMITIES: No edema, no calf swelling, no tenderness. No acute ischemia. CENTRAL NERVOUS SYSTEM: Exam is essentially unchanged. DIAGNOSTIC DATA: Available diagnostic data reviewed. CBC, CMP is acceptable for this patient. Telemetry monitoring does not show significant arrhythmias. ASSESSMENT AND PLAN: Psychiatric consult noted and appreciated. The patient does not have capacity to make medical decisions. Overall, the patient is medically stable. Hemoglobin remains stable. Plan as ordered. Hans Tineo MD
[2018-10-07] MEDS: metroNIDAZOLE 500mg/100ml NS 100 ML IVPB SCH ×2 (01:00→09:04)
--- NOTE | 2018-10-07 08:33 | CP.PCM.PN ---
<Chris Vazquez - Last Filed: 10/07/18 08:43> Subjective - Date & Time of Evaluation Date of Evaluation: 10/07/18 Time of Evaluation: 07:45 - Subjective Subjective: Patient seen and examined this morning at bedside with Dr. Tineo. NAD, no acute event overnight, no hematuria or diarrhea. Poor appetite, denies any chest pain, SOB, abdominal pain or dysuria. Patient has been refusing blood works, IV access and medications. No capacity to make medical decisions at this time Possible PICC Objective - Vital Signs/Intake and Output Vital Signs (last 24 hours): Temp Pulse Resp BP Pulse Ox 98.1 F 91 H 18 123/74 97 10/07/18 08:26 10/07/18 08:26 10/07/18 08:26 10/07/18 08:26 10/07/18 08:26 - Medications Medications: Current Medications Acetaminophen (Tylenol 325mg Tab) 650 mg PO Q4 PRN PRN Reason: Fever >100.4 F Acetaminophen (Tylenol 325mg Tab) 650 mg PO Q4 PRN PRN Reason: Pain, Mild (1-3) Bacitracin (Bacitracin) 1 ea TOP DAILY [facility] Last Admin: 10/06/18 10:12 Dose: Not Given Calcitriol (Rocaltrol) 0.25 mcg PO DAILY [facility] Last Admin: 10/06/18 10:13 Dose: Not Given Ferrous Gluconate (Fergon) 324 mg PO BID [facility] Last Admin: 10/06/18 17:20 Dose: Not Given Finasteride (Proscar) 5 mg PO DAILY [facility] Last Admin: 10/06/18 10:13 Dose: Not Given Metronidazole (Flagyl 500mg/100ml Ns) 100 mls @ 100 mls/hr IVPB Q8 [facility]; Protocol Last Admin: 10/07/18 01:00 Dose: Not Given Meropenem 500 mg/ Sodium (Chloride) 100 mls @ 100 mls/hr IVPB Q12 [facility]; Protocol Last Admin: 10/06/18 21:07 Dose: Not Given Lactobacillus Acidophilus (Bacid Acidophilus) 1 cap PO BID [facility] Last Admin: 10/06/18 17:20 Dose: Not Given Losartan Potassium (Cozaar) 50 mg PO DAILY [facility] Last Admin: 09/27/18 15:20 Dose: Not Given Metoprolol Tartrate (Lopressor) 50 mg PO Q12 [facility] Last Admin: 10/06/18 21:06 Dose: 50 mg Mirtazapine (Remeron) 15 mg PO [facility] Last Admin: 10/06/18 21:05 Dose: 15 mg Quetiapine Fumarate (Seroquel) 25 mg PO HS [facility] Last Admin: 10/06/18 21:05 Dose: 25 mg Sevelamer Carbonate (Renvela) 800 mg PO TID [facility] Last Admin: 10/06/18 17:20 Dose: Not Given Vitamin B Complex/Vit C/Folic Acid (Nephro-Jj) 1 tab PO DAILY [facility] Last Admin: 10/06/18 10:13 Dose: Not Given - Labs Labs: 10/05/18 14:02 10/05/18 14:02 PT 11.9 Seconds (9.8-13.1) 09/24/18 09:45 INR 1.0 09/24/18 09:45 APTT 26.7 Seconds (25.6-37.1) 09/24/18 09:45 - Constitutional Appears: No Acute Distress - Head Exam Head Exam: NORMAL INSPECTION - Eye Exam Eye Exam: Normal appearance, PERRL Pupil Exam: NORMAL ACCOMODATION - ENT Exam ENT Exam: Mucous Membranes Moist - Neck Exam Neck Exam: Normal Inspection - Respiratory Exam Respiratory Exam: Clear to Ausculation Bilateral, NORMAL BREATHING PATTERN. absent: Accessory Muscle Use, Chest Wall Tenderness - Cardiovascular Exam Cardiovascular Exam: Irregular Rhythm, +S1, +S2 - GI/Abdominal Exam GI & Abdominal Exam: Soft, Normal Bowel Sounds - Back Exam Back Exam: NORMAL INSPECTION - Neurological Exam Neurological Exam: Alert, Awake - Psychiatric Exam Psychiatric exam: Normal Affect - Skin Skin Exam: Normal Color Assessment and Plan - Assessment and Plan (Free Text) Assessment: A/P: 77 YO Male with PMHx of HTN, Atrial fibrillation, CHF (EF: 60%) and ESRD is admitted for anemia, ESRD, hematuria and a fib. A fib w/ RVR -acute on chronic, uncontrolled -HR stable in 80s -Cardiology on consulted; recs appreciated, stable -C/w Metoprolol T 50mg PO Q12H UTI-ESBL/Hematuria (gross) -acute -Ucx growth sig for Klebsiealla, sensitivity appreciated -ID consulted; recs appreciated, c/w jorgito IV, Flagyl and Vanco -urology consulted; hematuria follow up recs -F/u repeat Ucx if negative d/c merro -Patient has no IV, Consider PICC if IV Abx required -No capacity ESRD -acute on chronic -2/2 to interstitial renal disease, granulomatosis polyangiitis -Nephrology on board -s/p tunnel cath 09/26 -Hold HD for few days as per Nephro, improved Cr. -Possible Vascular consult for AVF before discharge Anemia -acute on chronic -likely 2/2 to ESRD, hematuria, malignancy -s/p 2 units of PRBC on 09/29, on epo per nephro -Patient is refusing blood work -F/u CBC today C. diff pos -Per ID, started on PO vanc and flagyl IV -c/w probiotic -No diarrhea HTN/CHF -chronic, controlled -c/w home meds DVT proplx: SCD for now <Hans Tineo K - Last Filed: 10/08/18 19:28> Objective - Vital Signs/Intake and Output Vital Signs (last 24 hours): Temp Pulse Resp BP Pulse Ox 98.4 F 92 H 16 108/71 97 10/08/18 16:34 10/08/18 16:34 10/08/18 16:34 10/08/18 16:34 10/08/18 16:34 Intake and Output: 10/08/18 10/08/18 11:59 23:59 Intake Total 200 Balance 200 - Medications Medications: Current Medications Acetaminophen (Tylenol 325mg Tab) 650 mg PO Q4 PRN PRN Reason: Fever >100.4 F Acetaminophen (Tylenol 325mg Tab) 650 mg PO Q4 PRN PRN Reason: Pain, Mild (1-3) Bacitracin (Bacitracin) 1 ea TOP DAILY [facility] Last Admin: 10/08/18 12:08 Dose: 1 ea Calcitriol (Rocaltrol) 0.25 mcg PO DAILY [facility] Last Admin: 10/08/18 12:10 Dose: Not Given Ferrous Gluconate (Fergon) 324 mg PO BID [facility] Last Admin: 10/08/18 16:52 Dose: Not Given Finasteride (Proscar) 5 mg PO DAILY [facility] Last Admin: 10/08/18 12:09 Dose: Not Given Meropenem 500 mg/ Sodium (Chloride) 100 mls @ 100 mls/hr IVPB Q12 [facility]; Protocol Last Admin: 10/08/18 12:10 Dose: Not Given Lactobacillus Acidophilus (Bacid Acidophilus) 1 cap PO BID [facility] Last Admin: 10/08/18 16:52 Dose: Not Given Losartan Potassium (Cozaar) 50 mg PO DAILY [facility] Last Admin: 09/27/18 15:20 Dose: Not Given Metoprolol Tartrate (Lopressor) 50 mg PO Q12 [facility] Last Admin: 10/08/18 12:09 Dose: Not Given Mirtazapine (Remeron) 15 mg PO HS [facility] Last Admin: 10/07/18 21:37 Dose: 15 mg Quetiapine Fumarate (Seroquel) 25 mg PO HS [facility] Last Admin: 10/07/18 21:37 Dose: 25 mg Sevelamer Carbonate (Renvela) 800 mg PO TID [facility] Last Admin: 10/08/18 16:52 Dose: Not Given Vancomycin HCl (Vancocin (Oral/Rectal Use)) 125 mg PO Q8 [facility]; Protocol Last Admin: 10/08/18 16:51 Dose: Not Given Vitamin B Complex/Vit C/Folic Acid (Nephro-Jj) 1 tab PO DAILY [facility] Last Admin: 10/08/18 12:09 Dose: Not Given - Labs Labs: 10/07/18 17:12 10/07/18 18:54 PT 11.9 Seconds (9.8-13.1) 09/24/18 09:45 INR 1.0 09/24/18 09:45 APTT 26.7 Seconds (25.6-37.1) 09/24/18 09:45 Assessment and Plan - Assessment and Plan (Free Text) Assessment: Patient was personally seen and examined by me in rounds with residents. Available labs and diagnostic data reviewed. Case, Patient's condition and management plan discussed with residents in rounds. Agree with resident's progress note. Plan: As ordered.
[2018-10-07] MEDS: Meropenem 500 MG in Sodium Chloride 0.9% 100 ML IVPB SCH ×2 (09:04→22:34)
[2018-10-07] MEDS: Multivitamin Vitamin B Complex (Nephro-Vite) Tab PO SCH (09:08)
[2018-10-07] MEDS: Lactobacillus Acidophilus 500 MU Cap PO SCH ×2 (09:08→16:44)
[2018-10-07] MEDS: Bacitracin 500 Units/gm Oint Foilpak UD TOP SCH (09:10)
--- NOTE | 2018-10-07 11:34 | CP.PCM.PN ---
Subjective - Date & Time of Evaluation Date of Evaluation: 10/07/18 Time of Evaluation: 09:45 - Subjective Subjective: The patient remains poorly communicative. He remains afebrile and breathes comfortably at 16 breaths/min while lying flat in bed. Telemetry shows atrial fibrillation with moderate heart rates which range between 70 and 90 bpm. His blood pressure was 110/70 mmHg and there was no evidence of volume overload. Patient remains hemodynamically stable and gets hemodialysis based on his renal status. The patient has not been anticoagulated for atri al fibrillation because of presence of prostatic malignancy, history of hematuria, evidence of blood in the urine now and persistent anemia. A Objective - Vital Signs/Intake and Output Vital Signs (last 24 hours): Temp Pulse Resp BP Pulse Ox 98.1 F 91 H 18 123/74 97 10/07/18 08:26 10/07/18 09:08 10/07/18 08:26 10/07/18 09:08 10/07/18 08:26 - Medications Medications: Current Medications Acetaminophen (Tylenol 325mg Tab) 650 mg PO Q4 PRN PRN Reason: Fever >100.4 F Acetaminophen (Tylenol 325mg Tab) 650 mg PO Q4 PRN PRN Reason: Pain, Mild (1-3) Bacitracin (Bacitracin) 1 ea TOP DAILY [facility] Last Admin: 10/07/18 09:10 Dose: 1 ea Calcitriol (Rocaltrol) 0.25 mcg PO DAILY [facility] Last Admin: 10/07/18 09:08 Dose: 0.25 mcg Ferrous Gluconate (Fergon) 324 mg PO BID [facility] Last Admin: 10/07/18 09:08 Dose: 324 mg Finasteride (Proscar) 5 mg PO DAILY [facility] Last Admin: 10/07/18 09:09 Dose: 5 mg Metronidazole (Flagyl 500mg/100ml Ns) 100 mls @ 100 mls/hr IVPB Q8 [facility]; Protocol Last Admin: 10/07/18 09:04 Dose: Not Given Meropenem 500 mg/ Sodium (Chloride) 100 mls @ 100 mls/hr IVPB Q12 [facility]; Protocol Last Admin: 10/07/18 09:04 Dose: Not Given Lactobacillus Acidophilus (Bacid Acidophilus) 1 cap PO BID [facility] Last Admin: 10/07/18 09:08 Dose: 1 cap Losartan Potassium (Cozaar) 50 mg PO DAILY [facility] Last Admin: 09/27/18 15:20 Dose: Not Given Metoprolol Tartrate (Lopressor) 50 mg PO Q12 [facility] Last Admin: 10/07/18 09:08 Dose: 50 mg Mirtazapine (Remeron) 15 mg PO HS [facility] Last Admin: 10/06/18 21:05 Dose: 15 mg Quetiapine Fumarate (Seroquel) 25 mg PO HS [facility] Last Admin: 10/06/18 21:05 Dose: 25 mg Sevelamer Carbonate (Renvela) 800 mg PO TID [facility] Last Admin: 10/06/18 17:20 Dose: Not Given Vitamin B Complex/Vit C/Folic Acid (Nephro-Jj) 1 tab PO DAILY [facility] Last Admin: 10/07/18 09:08 Dose: 1 tab - Labs Labs: 10/05/18 14:02 10/05/18 14:02 PT 11.9 Seconds (9.8-13.1) 09/24/18 09:45 INR 1.0 09/24/18 09:45 APTT 26.7 Seconds (25.6-37.1) 09/24/18 09:45
[2018-10-07] MEDS ORDERED: metroNIDAZOLE 500mg/100ml NS 100 ML IVPB SCH (13:28)
--- NOTE | 2018-10-07 13:43 | CP.PCM.PN ---
Subjective - Date & Time of Evaluation Date of Evaluation: 10/07/18 Time of Evaluation: 13:43 - Subjective Subjective: Patient in bed No new event reported overnight Patient sometimes responds sometimes not Vital signs stable Objective - Vital Signs/Intake and Output Vital Signs (last 24 hours): Temp Pulse Resp BP Pulse Ox 97.6 F 85 18 115/71 98 10/07/18 12:23 10/07/18 12:23 10/07/18 12:23 10/07/18 12:23 10/07/18 12:23 - Medications Medications: Current Medications Acetaminophen (Tylenol 325mg Tab) 650 mg PO Q4 PRN PRN Reason: Fever >100.4 F Acetaminophen (Tylenol 325mg Tab) 650 mg PO Q4 PRN PRN Reason: Pain, Mild (1-3) Bacitracin (Bacitracin) 1 ea TOP DAILY [facility] Last Admin: 10/07/18 09:10 Dose: 1 ea Calcitriol (Rocaltrol) 0.25 mcg PO DAILY [facility] Last Admin: 10/07/18 09:08 Dose: 0.25 mcg Ferrous Gluconate (Fergon) 324 mg PO BID [facility] Last Admin: 10/07/18 09:08 Dose: 324 mg Finasteride (Proscar) 5 mg PO DAILY [facility] Last Admin: 10/07/18 09:09 Dose: 5 mg Meropenem 500 mg/ Sodium (Chloride) 100 mls @ 100 mls/hr IVPB Q12 [facility]; Protocol Last Admin: 10/07/18 09:04 Dose: Not Given Lactobacillus Acidophilus (Bacid Acidophilus) 1 cap PO BID [facility] Last Admin: 10/07/18 09:08 Dose: 1 cap Losartan Potassium (Cozaar) 50 mg PO DAILY [facility] Last Admin: 09/27/18 15:20 Dose: Not Given Metoprolol Tartrate (Lopressor) 50 mg PO Q12 [facility] Last Admin: 10/07/18 09:08 Dose: 50 mg Mirtazapine (Remeron) 15 mg PO HS [facility] Last Admin: 10/06/18 21:05 Dose: 15 mg Quetiapine Fumarate (Seroquel) 25 mg PO HS [facility] Last Admin: 10/06/18 21:05 Dose: 25 mg Sevelamer Carbonate (Renvela) 800 mg PO TID [facility] Last Admin: 10/06/18 17:20 Dose: Not Given Vancomycin HCl (Vancocin (Oral/Rectal Use)) 125 mg PO Q8 [facility]; Protocol Vitamin B Complex/Vit C/Folic Acid (Nephro-Jj) 1 tab PO DAILY [facility] Last Admin: 10/07/18 09:08 Dose: 1 tab - Labs Labs: 10/05/18 14:02 10/05/18 14:02 PT 11.9 Seconds (9.8-13.1) 09/24/18 09:45 INR 1.0 09/24/18 09:45 APTT 26.7 Seconds (25.6-37.1) 09/24/18 09:45 - Eye Exam Eye Exam: Conjunctival injection - ENT Exam ENT Exam: Mucous Membranes Moist - Neck Exam Neck Exam: absent: Lymphadenopathy - Respiratory Exam Respiratory Exam: NORMAL BREATHING PATTERN. 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) Atrial fibrillation anemia Plan Continue EPO for anemia As per primary team with the antibiotics and management of cardiac arrhythmia atrial fibrillation Hold hemodialysis for few days to monitor kidney function and see what happens next few days since serum creatinine around 2.0 Hemodialysis continue to be on hold This is summary of previous admission multitude of medical problem gross hematuria severe anemia prostatic CA status post multiple cystoscopy previous admission Also for history when the patient was diagnosed with the above diagnosis he has a following treatment previous admission Pulses steroid for 3 days Rituximab 1 g twice 4 weeks apart Oral steroid Plasma phoresis And the patient continued to need dialysis s/p Amicar drip s/p cryopercipitate transfusion; goal fibrinogen > 200 - has been stable after transfusion s/p ddavp s/p vit k
--- NOTE | 2018-10-07 14:11 | CP.PCM.PN ---
Subjective - Date & Time of Evaluation Date of Evaluation: 10/07/18 Time of Evaluation: 08:00 - Subjective Subjective: LESS DIARRHEA AWAKE nad SLOW PROGRESS Objective - Vital Signs/Intake and Output Vital Signs (last 24 hours): Temp Pulse Resp BP Pulse Ox 97.6 F 85 18 115/71 98 10/07/18 12:23 10/07/18 12:23 10/07/18 12:23 10/07/18 12:23 10/07/18 12:23 - Medications Medications: Current Medications Acetaminophen (Tylenol 325mg Tab) 650 mg PO Q4 PRN PRN Reason: Fever >100.4 F Acetaminophen (Tylenol 325mg Tab) 650 mg PO Q4 PRN PRN Reason: Pain, Mild (1-3) Bacitracin (Bacitracin) 1 ea TOP DAILY [facility] Last Admin: 10/07/18 09:10 Dose: 1 ea Calcitriol (Rocaltrol) 0.25 mcg PO DAILY [facility] Last Admin: 10/07/18 09:08 Dose: 0.25 mcg Ferrous Gluconate (Fergon) 324 mg PO BID [facility] Last Admin: 10/07/18 09:08 Dose: 324 mg Finasteride (Proscar) 5 mg PO DAILY [facility] Last Admin: 10/07/18 09:09 Dose: 5 mg Meropenem 500 mg/ Sodium (Chloride) 100 mls @ 100 mls/hr IVPB Q12 [facility]; Protocol Last Admin: 10/07/18 09:04 Dose: Not Given Lactobacillus Acidophilus (Bacid Acidophilus) 1 cap PO BID [facility] Last Admin: 10/07/18 09:08 Dose: 1 cap Losartan Potassium (Cozaar) 50 mg PO DAILY [facility] Last Admin: 09/27/18 15:20 Dose: Not Given Metoprolol Tartrate (Lopressor) 50 mg PO Q12 [facility] Last Admin: 10/07/18 09:08 Dose: 50 mg Mirtazapine (Remeron) 15 mg PO HS [facility] Last Admin: 10/06/18 21:05 Dose: 15 mg Quetiapine Fumarate (Seroquel) 25 mg PO HS [facility] Last Admin: 10/06/18 21:05 Dose: 25 mg Sevelamer Carbonate (Renvela) 800 mg PO TID [facility] Last Admin: 10/06/18 17:20 Dose: Not Given Vancomycin HCl (Vancocin (Oral/Rectal Use)) 125 mg PO Q8 [facility]; Protocol Vitamin B Complex/Vit C/Folic Acid (Nephro-Jj) 1 tab PO DAILY [facility] Last Admin: 10/07/18 09:08 Dose: 1 tab - Labs Labs: 10/05/18 14:02 10/05/18 14:02 PT 11.9 Seconds (9.8-13.1) 09/24/18 09:45 INR 1.0 09/24/18 09:45 APTT 26.7 Seconds (25.6-37.1) 09/24/18 09:45 - Constitutional Appears: Non-toxic, Chronically Ill - Head Exam Head Exam: NORMOCEPHALIC - Eye Exam Eye Exam: PERRL. absent: Scleral icterus - ENT Exam ENT Exam: Mucous Membranes Dry - Neck Exam Neck Exam: absent: Lymphadenopathy - Respiratory Exam Respiratory Exam: Decreased Breath Sounds, Prolonged Expiratory Phase, Rhonchi - Cardiovascular Exam Cardiovascular Exam: REGULAR RHYTHM, +S1, +S2 - GI/Abdominal Exam GI & Abdominal Exam: Distended, Soft. absent: Tenderness - Rectal Exam Rectal Exam: Deferred - Exam Exam: NORMAL INSPECTION - Extremities Exam Extremities Exam: absent: Pedal Edema - Back Exam Back Exam: absent: CVA tenderness (L), CVA tenderness (R) - Neurological Exam Neurological Exam: Alert, Awake, CN II-XII Intact, Oriented x3 Assessment and Plan (1) Atrial fibrillation with RVR Status: Acute (2) Anemia Status: Chronic (3) ESRD (end stage renal disease) Status: Chronic (4) Acute on chronic renal failure Status: Acute (5) Hepatitis C Status: Acute - Assessment and Plan (Free Text) Assessment: cdiff resolving to complete rx for UTI
[2018-10-07] MEDS: Vancomycin 500 mg (Oral/Rectal USE) PO SCH (16:45)
[2018-10-07 17:20] LABS: HEMOGLOBIN 10.9 g/dL (12.0-18.0); MEAN CORPUSCULAR HEMOGLOBIN 30.5 pg (27.0-31.0); MEAN CORPUSCULAR HGB CONC 31.5 g/dL (33.0-37.0); RBC 3.57 Mil/uL (4.40-5.90); RED CELL DISTRIBUTION WIDTH 22.8 % (11.5-14.5)
[2018-10-07 17:40] LABS: ALB/GLOB RATIO 0.6 (1.0-2.1); ALBUMIN 1.9 g/dL (3.5-5.0); CALCIUM 7.6 mg/dL (8.4-10.2)
[2018-10-07 19:30] LABS: ALB/GLOB RATIO 0.6 (1.0-2.1); ALBUMIN 1.7 g/dL (3.5-5.0); CALCIUM 7.5 mg/dL (8.4-10.2)
[2018-10-08] MEDS: Vancomycin 500 mg (Oral/Rectal USE) PO SCH ×3 (00:48→16:51)
--- NOTE | 2018-10-08 11:45 | CP.PCM.PN ---
Subjective - Date & Time of Evaluation Date of Evaluation: 10/08/18 Time of Evaluation: 11:43 - Subjective Subjective: Nephrology Consultation Note Assessment: Stable Hypertensive Chronic Kidney Disease (I12.0) End stage renal disease (N18.6) dependence on hemodialysis (Z99.2) Anemia (D64.9), A fib CA prostate hx of pauci-immune GN Plan: hd on hold for now monitoring prbc need per primary bp stable s: seen and examined no complaints Physical Examination: General Appearance: Comfortable, in no acute respiratory distress, co-operative . Vitals reviewed and noted as below Head; Atraumatic, normocephalic ENT: no ulcers no thrush. Tongue is midline. Oropharynx: no rash or ulcers. EYES: Pupils are equal, round and reactive to light accommodation. Eye muscles and extraocular movement intact. Sclera is anicteric. Neck; supple no lymphadenopathy, no thyromegaly or bruit Lungs: Normal respiratory rate/effort. Breath sounds bilateral equal and clear Heart: Normal rate. s1s2 normal. No rub or gallop. Extremities: no edema. No varicose veins Neurological: Patient is alert, awake and oriented to person, place and time. No focal deficit. Strength bilateral appropriate and equal Skin: Warm and dry. Normal turgor. No rash. Palpitation: Normal elasticity for age Abdomen: Abdomen is soft. Bowel sounds +. There is no abdominal tenderness, no guarding/rigidity or organomegaly Psych: lack insight and normal affect/mood MSK: no joint tenderness or swelling. Digits and nails normal, no deformity : kidney or bladder not palpable Access: permacath Objective - Vital Signs/Intake and Output Vital Signs (last 24 hours): Temp Pulse Resp BP Pulse Ox 97.6 F 69 18 118/79 97 10/08/18 08:03 10/08/18 08:03 10/08/18 08:03 10/08/18 08:03 10/08/18 08:03 - Medications Medications: Current Medications Acetaminophen (Tylenol 325mg Tab) 650 mg PO Q4 PRN PRN Reason: Fever >100.4 F Acetaminophen (Tylenol 325mg Tab) 650 mg PO Q4 PRN PRN Reason: Pain, Mild (1-3) Bacitracin (Bacitracin) 1 ea TOP DAILY [facility] Last Admin: 10/07/18 09:10 Dose: 1 ea Calcitriol (Rocaltrol) 0.25 mcg PO DAILY [facility] Last Admin: 10/07/18 09:08 Dose: 0.25 mcg Ferrous Gluconate (Fergon) 324 mg PO BID [facility] Last Admin: 10/07/18 16:44 Dose: 324 mg Finasteride (Proscar) 5 mg PO DAILY [facility] Last Admin: 10/07/18 09:09 Dose: 5 mg Meropenem 500 mg/ Sodium (Chloride) 100 mls @ 100 mls/hr IVPB Q12 [facility]; Protocol Last Admin: 10/07/18 22:34 Dose: Not Given Lactobacillus Acidophilus (Bacid Acidophilus) 1 cap PO BID [facility] Last Admin: 10/07/18 16:44 Dose: 1 cap Losartan Potassium (Cozaar) 50 mg PO DAILY [facility] Last Admin: 09/27/18 15:20 Dose: Not Given Metoprolol Tartrate (Lopressor) 50 mg PO Q12 [facility] Last Admin: 10/07/18 21:37 Dose: 50 mg Mirtazapine (Remeron) 15 mg PO HS [facility] Last Admin: 10/07/18 21:37 Dose: 15 mg Quetiapine Fumarate (Seroquel) 25 mg PO HS [facility] Last Admin: 10/07/18 21:37 Dose: 25 mg Sevelamer Carbonate (Renvela) 800 mg PO TID [facility] Last Admin: 10/07/18 16:44 Dose: 800 mg Vancomycin HCl (Vancocin (Oral/Rectal Use)) 125 mg PO Q8 [facility]; Protocol Last Admin: 10/08/18 00:48 Dose: 125 mg Vitamin B Complex/Vit C/Folic Acid (Nephro-Jj) 1 tab PO DAILY [facility] Last Admin: 10/07/18 09:08 Dose: 1 tab - Labs Labs: 10/07/18 17:12 10/07/18 18:54 PT 11.9 Seconds (9.8-13.1) 09/24/18 09:45 INR 1.0 09/24/18 09:45 APTT 26.7 Seconds (25.6-37.1) 09/24/18 09:45
[2018-10-08] MEDS: Meropenem 500 MG in Sodium Chloride 0.9% 100 ML IVPB SCH ×3 (11:54→21:27)
[2018-10-08] MEDS: Lactobacillus Acidophilus 500 MU Cap PO SCH ×2 (12:07→16:52)
[2018-10-08] MEDS: Bacitracin 500 Units/gm Oint Foilpak UD TOP SCH (12:08)
[2018-10-08] MEDS: Multivitamin Vitamin B Complex (Nephro-Vite) Tab PO SCH (12:09)
[2018-10-09] MEDS: Vancomycin 500 mg (Oral/Rectal USE) PO SCH ×3 (00:51→17:09)
--- NOTE | 2018-10-09 07:23 | PN ---
DATE: 10/09/2018 SUBJECTIVE: The patient seen and examined. Interim events noted. Consults noted and appreciated. Nephrology followup and interventions noted and appreciated. The patient remains in regular medical floor for progressive care unit with telemetry monitoring. The patient is sleeping, arousable. Feels okay. Denies any specific complaint. The patient is not able to provide informative history or review of systems. No specific issue reported by nursing staff. PHYSICAL EXAMINATION: GENERAL: The patient is in no acute distress. VITAL SIGNS: Stable. HEART: S1, S2 normal and regular. LUNGS: Good bilateral air exchange. ABDOMEN: Soft, nontender. EXTREMITIES: No edema, no calf swelling. No tenderness. No acute ischemia. CENTRAL NERVOUS SYSTEM: Exam is essentially unchanged. DIAGNOSTIC DATA: Available diagnostic data reviewed. Telemetry monitoring does not show significant arrhythmias. ASSESSMENT AND PLAN: Overall, the patient's general medical condition is stable. Plan as ordered. Hans Tineo MD
[2018-10-09 08:15] LABS: ALB/GLOB RATIO 0.5 (1.0-2.1); ALBUMIN 1.6 g/dL (3.5-5.0); CALCIUM 7.8 mg/dL (8.4-10.2)
[2018-10-09 08:22] LABS: MEAN CELL VOLUME 96.5 fl (80.0-94.0); MEAN CORPUSCULAR HEMOGLOBIN 30.6 pg (27.0-31.0); MEAN CORPUSCULAR HGB CONC 31.8 g/dL (33.0-37.0); RBC 2.92 Mil/uL (4.40-5.90); RED CELL DISTRIBUTION WIDTH 21.3 % (11.5-14.5); WHITE BLOOD COUNT 4.1 K/uL (4.8-10.8)
[2018-10-09] MEDS: Bacitracin 500 Units/gm Oint Foilpak UD TOP SCH (09:37)
[2018-10-09] MEDS: Lactobacillus Acidophilus 500 MU Cap PO SCH ×2 (09:39→17:09)
[2018-10-09] MEDS: Meropenem 500 MG in Sodium Chloride 0.9% 100 ML IVPB SCH ×2 (09:39→22:41)
[2018-10-09] MEDS: Multivitamin Vitamin B Complex (Nephro-Vite) Tab PO SCH (09:40)
--- NOTE | 2018-10-09 12:39 | CP.PCM.PN ---
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 Vitals reviewed and noted as below Head; Atraumatic, normocephalic ENT: no ulcers no thrush. Tongue is midline. Oropharynx: no rash or ulcers. EYES: Pupils are equal, round and reactive to light accommodation. Eye muscles and extraocular movement intact. Sclera is anicteric. Neck; supple no lymphadenopathy, no thyromegaly or bruit Lungs: Normal respiratory rate/effort. Breath sounds bilateral equal and clear Heart: Normal rate. s1s2 normal. No rub or gallop. Extremities: no edema. No varicose veins Neurological: Patient is alert, awake and oriented to person, place and time. No focal deficit. Strength bilateral appropriate and equal Skin: Warm and dry. Normal turgor. No rash. Palpitation: Normal elasticity for age Abdomen: Abdomen is soft. Bowel sounds +. There is no abdominal tenderness, no guarding/rigidity or organomegaly Psych: lack insight and normal affect/mood MSK: no joint tenderness or swelling. Digits and nails normal, no deformity : kidney or bladder not palpable Access: permacath Objective - Vital Signs/Intake and Output Vital Signs (last 24 hours): Temp Pulse Resp BP Pulse Ox 97.7 F 98 H 18 107/72 94 L 10/09/18 12:08 10/09/18 12:08 10/09/18 12:08 10/09/18 12:08 10/09/18 12:08 - Medications Medications: Current Medications Acetaminophen (Tylenol 325mg Tab) 650 mg PO Q4 PRN PRN Reason: Fever >100.4 F Acetaminophen (Tylenol 325mg Tab) 650 mg PO Q4 PRN PRN Reason: Pain, Mild (1-3) Bacitracin (Bacitracin) 1 ea TOP DAILY [facility] Last Admin: 10/08/18 12:08 Dose: 1 ea Calcitriol (Rocaltrol) 0.25 mcg PO DAILY [facility] Last Admin: 10/09/18 09:40 Dose: Not Given Ferrous Gluconate (Fergon) 324 mg PO BID [facility] Last Admin: 10/09/18 09:39 Dose: Not Given Finasteride (Proscar) 5 mg PO DAILY [facility] Last Admin: 10/09/18 09:40 Dose: Not Given Meropenem 500 mg/ Sodium (Chloride) 100 mls @ 100 mls/hr IVPB Q12 [facility]; Protocol Last Admin: 10/09/18 09:39 Dose: Not Given Lactobacillus Acidophilus (Bacid Acidophilus) 1 cap PO BID [facility] Last Admin: 10/09/18 09:39 Dose: Not Given Losartan Potassium (Cozaar) 50 mg PO DAILY [facility] Last Admin: 09/27/18 15:20 Dose: Not Given Metoprolol Tartrate (Lopressor) 50 mg PO Q12 [facility] Last Admin: 10/09/18 09:39 Dose: Not Given Mirtazapine (Remeron) 15 mg PO HS [facility] Last Admin: 10/08/18 21:16 Dose: 15 mg Quetiapine Fumarate (Seroquel) 25 mg PO HS [facility] Last Admin: 10/08/18 21:16 Dose: 25 mg Sevelamer Carbonate (Renvela) 800 mg PO TID [facility] Last Admin: 10/09/18 09:40 Dose: Not Given Vancomycin HCl (Vancocin (Oral/Rectal Use)) 125 mg PO Q8 [facility]; Protocol Last Admin: 10/09/18 09:40 Dose: Not Given Vitamin B Complex/Vit C/Folic Acid (Nephro-Jj) 1 tab PO DAILY [facility] Last Admin: 10/09/18 09:40 Dose: Not Given - Labs Labs: 10/09/18 06:30 10/09/18 06:30 PT 11.9 Seconds (9.8-13.1) 09/24/18 09:45 INR 1.0 09/24/18 09:45 APTT 26.7 Seconds (25.6-37.1) 09/24/18 09:45
--- NOTE | 2018-10-09 13:55 | CP.PCM.PN ---
Subjective - Date & Time of Evaluation Date of Evaluation: 10/09/18 Time of Evaluation: 09:00 - Subjective Subjective: no fever or diarrhea awake and alert Objective - Vital Signs/Intake and Output Vital Signs (last 24 hours): Temp Pulse Resp BP Pulse Ox 97.7 F 98 H 18 107/72 94 L 10/09/18 12:08 10/09/18 12:08 10/09/18 12:08 10/09/18 12:08 10/09/18 12:08 - Medications Medications: Current Medications Acetaminophen (Tylenol 325mg Tab) 650 mg PO Q4 PRN PRN Reason: Fever >100.4 F Acetaminophen (Tylenol 325mg Tab) 650 mg PO Q4 PRN PRN Reason: Pain, Mild (1-3) Bacitracin (Bacitracin) 1 ea TOP DAILY [facility] Last Admin: 10/08/18 12:08 Dose: 1 ea Calcitriol (Rocaltrol) 0.25 mcg PO DAILY [facility] Last Admin: 10/09/18 09:40 Dose: Not Given Ferrous Gluconate (Fergon) 324 mg PO BID [facility] Last Admin: 10/09/18 09:39 Dose: Not Given Finasteride (Proscar) 5 mg PO DAILY [facility] Last Admin: 10/09/18 09:40 Dose: Not Given Meropenem 500 mg/ Sodium (Chloride) 100 mls @ 100 mls/hr IVPB Q12 [facility]; Protocol Last Admin: 10/09/18 09:39 Dose: Not Given Lactobacillus Acidophilus (Bacid Acidophilus) 1 cap PO BID [facility] Last Admin: 10/09/18 09:39 Dose: Not Given Losartan Potassium (Cozaar) 50 mg PO DAILY [facility] Last Admin: 09/27/18 15:20 Dose: Not Given Metoprolol Tartrate (Lopressor) 50 mg PO Q12 [facility] Last Admin: 10/09/18 09:39 Dose: Not Given Mirtazapine (Remeron) 15 mg PO HS [facility] Last Admin: 10/08/18 21:16 Dose: 15 mg Quetiapine Fumarate (Seroquel) 25 mg PO HS [facility] Last Admin: 10/08/18 21:16 Dose: 25 mg Sevelamer Carbonate (Renvela) 800 mg PO TID [facility] Last Admin: 10/09/18 13:22 Dose: Not Given Vancomycin HCl (Vancocin (Oral/Rectal Use)) 125 mg PO Q8 [facility]; Protocol Last Admin: 10/09/18 09:40 Dose: Not Given Vitamin B Complex/Vit C/Folic Acid (Nephro-Jj) 1 tab PO DAILY [facility] Last Admin: 10/09/18 09:40 Dose: Not Given - Labs Labs: 10/09/18 06:30 10/09/18 06:30 PT 11.9 Seconds (9.8-13.1) 09/24/18 09:45 INR 1.0 09/24/18 09:45 APTT 26.7 Seconds (25.6-37.1) 09/24/18 09:45 - Constitutional Appears: Non-toxic, Chronically Ill - Head Exam Head Exam: NORMOCEPHALIC - Eye Exam Eye Exam: absent: Scleral icterus - ENT Exam ENT Exam: Mucous Membranes Dry - Neck Exam Neck Exam: absent: Lymphadenopathy - Respiratory Exam Respiratory Exam: Decreased Breath Sounds - Cardiovascular Exam Cardiovascular Exam: REGULAR RHYTHM - GI/Abdominal Exam GI & Abdominal Exam: Distended, Soft - Rectal Exam Rectal Exam: Deferred - Exam Exam: NORMAL INSPECTION - Extremities Exam Extremities Exam: absent: Pedal Edema - Back Exam Back Exam: absent: CVA tenderness (L), CVA tenderness (R) - Neurological Exam Neurological Exam: Alert, Awake, CN II-XII Intact - Psychiatric Exam Psychiatric exam: Depressed - Skin Skin Exam: Dry Assessment and Plan (1) Atrial fibrillation with RVR Status: Acute (2) Anemia Status: Chronic (3) ESRD (end stage renal disease) Status: Chronic (4) Acute on chronic renal failure Status: Acute (5) Hepatitis C Status: Acute - Assessment and Plan (Free Text) Assessment: cont rx as odered
[2018-10-10] MEDS: Vancomycin 500 mg (Oral/Rectal USE) PO SCH ×3 (01:21→19:02)
--- NOTE | 2018-10-10 08:43 | PN ---
DATE: 10/08/2018 SUBJECTIVE: The patient is seen and examined. Interim events noted. Consults noted and appreciated. The patient remains in progressive care unit on telemetry monitoring, awake, responsive, feels okay. Denies any chest pain or shortness of breath. No weakness. PHYSICAL EXAMINATION: GENERAL: The patient is in no acute distress. VITAL SIGNS: Stable. HEART: S1, S2. Normal and regular. LUNGS: Good bilateral air exchange. ABDOMEN: Soft, nontender. EXTREMITIES: No edema, no calf swelling. No tenderness. No acute ischemia. CENTRAL NERVOUS SYSTEM: Essentially unchanged. DIAGNOSTIC DATA: Available and reviewed. ASSESSMENT: Overall, the patient's general medical condition is stable. Telemetry monitoring does not show significant arrhythmias. PLAN: As ordered. Hans Tineo MD
[2018-10-10] MEDS: Multivitamin Vitamin B Complex (Nephro-Vite) Tab PO SCH (08:49)
[2018-10-10] MEDS: Lactobacillus Acidophilus 500 MU Cap PO SCH ×2 (08:49→19:02)
[2018-10-10] MEDS: Bacitracin 500 Units/gm Oint Foilpak UD TOP SCH (08:49)
[2018-10-10] MEDS: Meropenem 500 MG in Sodium Chloride 0.9% 100 ML IVPB SCH ×2 (08:49→21:07)
--- NOTE | 2018-10-10 10:02 | CP.PCM.PN ---
Subjective - Date & Time of Evaluation Date of Evaluation: 10/10/18 Time of Evaluation: 09:00 - Subjective Subjective: The patient was found eating breakfast in his bed which he has virtually finished. He denied any symptoms of discomfort or nausea or any pain. The patient was breathing comfortably at 16 breaths/min and had a heart rate bet ween 70 and 90 bpm with atrial fibrillation. His jugular venous pressure was not elevated and there was no pedal or sacral edema. His heart sounds were normal with an apical systolic murmur. There was no gallop rhythm and there were no rales. His labs were noted. The patient appears to have a fairly stable azotemia. His potassium level was normal. The patient is stable from cardiovascular point of view. Objective - Vital Signs/Intake and Output Vital Signs (last 24 hours): Temp Pulse Resp BP Pulse Ox 97.6 F 93 H 18 133/87 98 10/10/18 08:05 10/10/18 08:05 10/10/18 08:05 10/10/18 08:05 10/10/18 08:05 Intake and Output: 10/10/18 10/10/18 06:59 18:59 Intake Total 0 Balance 0 - Medications Medications: Current Medications Bacitracin (Bacitracin) 1 ea TOP DAILY [facility] Last Admin: 10/10/18 08:49 Dose: Not Given Meropenem 500 mg/ Sodium (Chloride) 100 mls @ 100 mls/hr IVPB Q12 [facility]; Protocol Last Admin: 10/10/18 08:49 Dose: Not Given Lactobacillus Acidophilus (Bacid Acidophilus) 1 cap PO BID [facility] Last Admin: 10/10/18 08:49 Dose: Not Given Losartan Potassium (Cozaar) 50 mg PO DAILY [facility] Last Admin: 09/27/18 15:20 Dose: Not Given Metoprolol Tartrate (Lopressor) 50 mg PO Q12 [facility] Last Admin: 10/10/18 08:49 Dose: Not Given Vancomycin HCl (Vancocin (Oral/Rectal Use)) 125 mg PO Q8 [facility]; Protocol Last Admin: 10/10/18 08:50 Dose: Not Given - Labs Labs: 10/09/18 06:30 10/09/18 06:30 PT 11.9 Seconds (9.8-13.1) 09/24/18 09:45 INR 1.0 09/24/18 09:45 APTT 26.7 Seconds (25.6-37.1) 09/24/18 09:45
--- NOTE | 2018-10-10 10:16 | CP.PCM.PN ---
Subjective - Date & Time of Evaluation Date of Evaluation: 10/10/18 Time of Evaluation: 10:15 - Subjective Subjective: Patient is more awake and he had taken his breakfast sitting up sometime Appears to be improving and heart rate also controlled with atrial fibrillation Objective - Vital Signs/Intake and Output Vital Signs (last 24 hours): Temp Pulse Resp BP Pulse Ox 97.6 F 93 H 18 133/87 98 10/10/18 08:05 10/10/18 08:05 10/10/18 08:05 10/10/18 08:05 10/10/18 08:05 Intake and Output: 10/10/18 10/10/18 06:59 18:59 Intake Total 0 Balance 0 - Medications Medications: Current Medications Bacitracin (Bacitracin) 1 ea TOP DAILY [facility] Last Admin: 10/10/18 08:49 Dose: Not Given Meropenem 500 mg/ Sodium (Chloride) 100 mls @ 100 mls/hr IVPB Q12 [facility]; Protocol Last Admin: 10/10/18 08:49 Dose: Not Given Lactobacillus Acidophilus (Bacid Acidophilus) 1 cap PO BID [facility] Last Admin: 10/10/18 08:49 Dose: Not Given Losartan Potassium (Cozaar) 50 mg PO DAILY [facility] Last Admin: 09/27/18 15:20 Dose: Not Given Metoprolol Tartrate (Lopressor) 50 mg PO Q12 [facility] Last Admin: 10/10/18 08:49 Dose: Not Given Vancomycin HCl (Vancocin (Oral/Rectal Use)) 125 mg PO Q8 [facility]; Protocol Last Admin: 10/10/18 08:50 Dose: Not Given - Labs Labs: 10/09/18 06:30 10/09/18 06:30 PT 11.9 Seconds (9.8-13.1) 09/24/18 09:45 INR 1.0 09/24/18 09:45 APTT 26.7 Seconds (25.6-37.1) 09/24/18 09:45 - Constitutional Appears: No Acute Distress - Eye Exam Eye Exam: Conjunctival injection - ENT Exam ENT Exam: Mucous Membranes Moist - Neck Exam Neck Exam: absent: Lymphadenopathy - Respiratory Exam Respiratory Exam: NORMAL BREATHING PATTERN - Cardiovascular Exam Cardiovascular Exam: Irregular Rhythm. 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
--- NOTE | 2018-10-10 11:49 | CP.PCM.CON ---
History of Present Illness - History of Present Illness History of Present Illness: Psychiatry consult follow-up note CC: Neurocognitive impairment HPI: 77 yo male, retirement resident, admitted w/ hypotension, sepsis, UTI, continues to only be oriented x self. He can not provide any accurate history or information. He is not able to explain why he is the hospital and he can not weigh the risks/benefits of treatment. Pt denied depression/anxiety/AH/VH/SI/HI. 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 -Patient does not have capacity to make medical decisions at this time -No acute psychiatric medications indicated at this time -Patient does not need acute psychiatric admission at this time Past Patient History - Infectious Disease Hx of Infectious Diseases: None - Past Medical History & Family History Past Medical History?: Yes - Past Social History Smoking Status: Former Smoker - CARDIAC Hx Atrial Fibrillation: Yes Hx Congestive Heart Failure: Yes Hx Hypertension: Yes - PULMONARY Hx Respiratory Disorders: No - NEUROLOGICAL Hx Neurological Disorder: No - HEENT Hx HEENT Problems: Yes - RENAL Hx Chronic Kidney Disease: Yes - ENDOCRINE/METABOLIC Hx Endocrine Disorders: Yes - HEMATOLOGICAL/ONCOLOGICAL Hx AIDS: No Hx Anemia: Yes Hx Human Immunodeficiency Virus (HIV): No - INTEGUMENTARY Hx Dermatological Problems: No - MUSCULOSKELETAL/RHEUMATOLOGICAL Hx Arthritis: Yes Hx Falls: Yes - GASTROINTESTINAL Hx Gastrointestinal Disorders: No - GENITOURINARY/GYNECOLOGICAL Hx Genitourinary Disorders: Yes (RETENTION BUTLER TO SGD) - PSYCHIATRIC Hx Psychophysiologic Disorder: No Hx Substance Use: No - SURGICAL HISTORY Hx Appendectomy: Yes - ANESTHESIA Hx Anesthesia: Yes Hx Anesthesia Reactions: No Hx Malignant Hyperthermia: No Meds Allergies/Adverse Reactions: Allergies Allergy/AdvReac Type Severity Reaction Status Date / Time No Known Allergies Allergy Verified 09/24/18 09:26 - Medications Medications: Current Medications Bacitracin (Bacitracin) 1 ea TOP DAILY [facility] Last Admin: 10/10/18 08:49 Dose: Not Given Meropenem 500 mg/ Sodium (Chloride) 100 mls @ 100 mls/hr IVPB Q12 [facility]; Protocol Last Admin: 10/10/18 08:49 Dose: Not Given Lactobacillus Acidophilus (Bacid Acidophilus) 1 cap PO BID [facility] Last Admin: 10/10/18 08:49 Dose: Not Given Losartan Potassium (Cozaar) 50 mg PO DAILY [facility] Last Admin: 09/27/18 15:20 Dose: Not Given Metoprolol Tartrate (Lopressor) 50 mg PO Q12 [facility] Last Admin: 10/10/18 08:49 Dose: Not Given Vancomycin HCl (Vancocin (Oral/Rectal Use)) 125 mg PO Q8 [facility]; Protocol Last Admin: 10/10/18 08:50 Dose: Not Given Results - Vital Signs Recent Vital Signs: Last Vital Signs Temp 97.6 F 10/10/18 08:05 Pulse 93 H 10/10/18 08:05 Resp 18 10/10/18 08:05 BP 133/87 10/10/18 08:05 Pulse Ox 98 10/10/18 08:05 - Labs Result Diagrams: 10/09/18 06:30 10/09/18 06:30
--- NOTE | 2018-10-10 12:17 | PN ---
DATE: 10/10/2018 SUBJECTIVE: The patient seen and examined. Interim events noted. Consults noted and appreciated. The patient remains in regular medical floor. The patient denies any specific complaint, although the patient is not a good historian. No specific issue reported by nursing staff. PHYSICAL EXAMINATION: GENERAL: The patient is in no acute distress. VITAL SIGNS: Stable. HEART: S1 and S2 normal and regular. LUNGS: Good bilateral air exchange. ABDOMEN: Soft and nontender. EXTREMITIES: No edema, no calf swelling. No tenderness. No acute ischemia. CENTRAL NERVOUS SYSTEM: Exam is essentially unchanged. DIAGNOSTIC DATA: Available diagnostic data reviewed. ASSESSMENT AND PLAN: Overall, the patient's general medical condition is stable. Plan as ordered. Hans Tineo MD
[2018-10-11] MEDS: Vancomycin 500 mg (Oral/Rectal USE) PO SCH ×3 (03:19→16:32)
--- NOTE | 2018-10-11 08:37 | CP.PCM.PN ---
<Chris Vazquez - Last Filed: 10/11/18 08:35> Subjective - Date & Time of Evaluation Date of Evaluation: 10/11/18 Time of Evaluation: 07:15 - Subjective Subjective: Patient seen and examined this morning at bedside with Dr. Tineo. NAD, patient is alert and awake. Denies any pain, no acute event overnight. Objective - Vital Signs/Intake and Output Vital Signs (last 24 hours): Temp Pulse Resp BP Pulse Ox 98.4 F 82 18 124/70 95 10/11/18 08:15 10/11/18 08:15 10/11/18 08:15 10/11/18 08:15 10/11/18 08:15 - Medications Medications: Current Medications Bacitracin (Bacitracin) 1 ea TOP DAILY [facility] Last Admin: 10/10/18 08:49 Dose: Not Given Meropenem 500 mg/ Sodium (Chloride) 100 mls @ 100 mls/hr IVPB Q12 [facility]; Protocol Last Admin: 10/10/18 21:07 Dose: Not Given Lactobacillus Acidophilus (Bacid Acidophilus) 1 cap PO BID [facility] Last Admin: 10/10/18 19:02 Dose: Not Given Losartan Potassium (Cozaar) 50 mg PO DAILY [facility] Last Admin: 09/27/18 15:20 Dose: Not Given Metoprolol Tartrate (Lopressor) 50 mg PO Q12 [facility] Last Admin: 10/10/18 21:06 Dose: Not Given Vancomycin HCl (Vancocin (Oral/Rectal Use)) 125 mg PO Q8 [facility]; Protocol Last Admin: 10/11/18 03:19 Dose: Not Given - Labs Labs: 10/09/18 06:30 10/09/18 06:30 PT 11.9 Seconds (9.8-13.1) 09/24/18 09:45 INR 1.0 09/24/18 09:45 APTT 26.7 Seconds (25.6-37.1) 09/24/18 09:45 - Constitutional Appears: No Acute Distress - Head Exam Head Exam: NORMAL INSPECTION - Eye Exam Eye Exam: Normal appearance - ENT Exam ENT Exam: Mucous Membranes Moist - Neck Exam Neck Exam: Normal Inspection - Respiratory Exam Respiratory Exam: Clear to Ausculation Bilateral, NORMAL BREATHING PATTERN - Cardiovascular Exam Cardiovascular Exam: Irregular Rhythm, +S1, +S2 - GI/Abdominal Exam GI & Abdominal Exam: Soft, Normal Bowel Sounds. absent: Tenderness - Extremities Exam Extremities Exam: Normal Inspection - Back Exam Back Exam: NORMAL INSPECTION - Neurological Exam Neurological Exam: Alert, Awake - Psychiatric Exam Psychiatric exam: Normal Affect - Skin Skin Exam: Normal Color Assessment and Plan - Assessment and Plan (Free Text) Assessment: A/P: 77 YO Male with PMHx of HTN, Atrial fibrillation, CHF (EF: 60%) and ESRD is admitted for anemia, ESRD, hematuria and a fib. A fib w/ RVR -acute on chronic, uncontrolled -HR stable in 80s -Cardiology on consulted; recs appreciated, stable -C/w Metoprolol T 50mg PO Q12H UTI-ESBL/Hematuria (gross) -acute -Ucx growth sig for Klebsiealla, sensitivity appreciated -ID consulted; recs appreciated, c/w jorgito IV, Flagyl and Vanco -urology consulted; hematuria follow up recs -repeat Ucx is negative, will f/u ID with Abx/meropenem plan -Patient has no IV, Consider PICC if IV Abx required -No capacity as per psych ESRD -acute on chronic -2/2 to interstitial renal disease, granulomatosis polyangiitis -Nephrology on board -s/p tunnel cath 09/26 -Hold HD for few days as per Nephro, improved Cr. -Possible Vascular consult for AVF before discharge Anemia -acute on chronic -likely 2/2 to ESRD, hematuria, malignancy -s/p 2 units of PRBC on 09/29, on epo per nephro (total 4pRBCs) -Patient is refusing blood work -F/u CBC today C. diff pos -Per ID, started on PO vanc -c/w probiotic -No diarrhea HTN/CHF -chronic, controlled -c/w home meds DVT proplx: SCD for now <Hans Tineo K - Last Filed: 10/14/18 18:00> Objective - Vital Signs/Intake and Output Vital Signs (last 24 hours): Temp Pulse Resp BP Pulse Ox 97.5 F L 102 H 16 111/68 100 10/14/18 16:21 10/14/18 16:21 10/14/18 16:21 10/14/18 16:21 10/14/18 16:21 - Medications Medications: Current Medications Bacitracin (Bacitracin) 1 ea TOP DAILY [facility] Last Admin: 10/14/18 09:43 Dose: 1 ea Meropenem 500 mg/ Sodium (Chloride) 100 mls @ 100 mls/hr IVPB Q12 [facility]; Protocol Last Admin: 10/14/18 09:31 Dose: Not Given Lactobacillus Acidophilus (Bacid Acidophilus) 1 cap PO BID [facility] Last Admin: 10/14/18 16:51 Dose: 1 cap Losartan Potassium (Cozaar) 50 mg PO DAILY [facility] Last Admin: 09/27/18 15:20 Dose: Not Given Metoprolol Tartrate (Lopressor) 50 mg PO Q12 [facility] Last Admin: 10/14/18 09:52 Dose: Not Given Vancomycin HCl (Vancocin (Oral/Rectal Use)) 125 mg PO Q8 [facility]; Protocol Last Admin: 10/14/18 16:51 Dose: 125 mg - Labs Labs: 10/13/18 10:00 10/13/18 10:00 PT 11.9 Seconds (9.8-13.1) 09/24/18 09:45 INR 1.0 09/24/18 09:45 APTT 26.7 Seconds (25.6-37.1) 09/24/18 09:45 Assessment and Plan - Assessment and Plan (Free Text) Assessment: Patient was personally seen and examined by me in rounds with residents. Available labs and diagnostic data reviewed. Case, Patient's condition and management plan discussed with residents in rounds. Agree with resident's progress note. Plan: As ordered.
--- NOTE | 2018-10-11 09:11 | CP.PCM.PN ---
Subjective - Date & Time of Evaluation Date of Evaluation: 10/11/18 Time of Evaluation: 09:09 - Subjective Subjective: Patient awake and doing much better Vital signs stable Objective - Vital Signs/Intake and Output Vital Signs (last 24 hours): Temp Pulse Resp BP Pulse Ox 98.4 F 82 18 124/70 95 10/11/18 08:15 10/11/18 08:15 10/11/18 08:15 10/11/18 08:15 10/11/18 08:15 - Medications Medications: Current Medications Bacitracin (Bacitracin) 1 ea TOP DAILY [facility] Last Admin: 10/10/18 08:49 Dose: Not Given Meropenem 500 mg/ Sodium (Chloride) 100 mls @ 100 mls/hr IVPB Q12 [facility]; Protocol Last Admin: 10/10/18 21:07 Dose: Not Given Lactobacillus Acidophilus (Bacid Acidophilus) 1 cap PO BID [facility] Last Admin: 10/10/18 19:02 Dose: Not Given Losartan Potassium (Cozaar) 50 mg PO DAILY [facility] Last Admin: 09/27/18 15:20 Dose: Not Given Metoprolol Tartrate (Lopressor) 50 mg PO Q12 [facility] Last Admin: 10/10/18 21:06 Dose: Not Given Vancomycin HCl (Vancocin (Oral/Rectal Use)) 125 mg PO Q8 [facility]; Protocol Last Admin: 10/11/18 03:19 Dose: Not Given - Labs Labs: 10/09/18 06:30 10/09/18 06:30 PT 11.9 Seconds (9.8-13.1) 09/24/18 09:45 INR 1.0 09/24/18 09:45 APTT 26.7 Seconds (25.6-37.1) 09/24/18 09:45 - Constitutional Appears: No Acute Distress - Eye Exam Eye Exam: absent: Conjunctival injection - ENT Exam ENT Exam: absent: Mucous Membranes Moist - Neck Exam Neck Exam: absent: Lymphadenopathy - Respiratory Exam Respiratory Exam: NORMAL BREATHING PATTERN. absent: Chest Wall Tenderness - Cardiovascular Exam Cardiovascular Exam: absent: JVD, Rubs - GI/Abdominal Exam GI & Abdominal Exam: Soft, Normal Bowel Sounds - Extremities Exam Extremities Exam: absent: Calf Tenderness - Back Exam Back Exam: absent: CVA tenderness (L), CVA tenderness (R) - Neurological Exam Neurological Exam: Alert - Skin Skin Exam: absent: Cyanosis Assessment and Plan (1) Atrial fibrillation with RVR Status: Acute (2) ESRD (end stage renal disease) Status: Chronic (3) Anemia Status: Chronic - Assessment and Plan (Free Text) Assessment: Chronic kidney disease stage IV Patient OFF dialysis Atrial fibrillation with controlled heart rate Overall patient improving and doing much better he responded to antibiotics. Remove dialysis catheter
[2018-10-11] MEDS: Meropenem 500 MG in Sodium Chloride 0.9% 100 ML IVPB SCH ×2 (10:00→23:02)
[2018-10-11] MEDS: Lactobacillus Acidophilus 500 MU Cap PO SCH ×2 (11:54→16:32)
[2018-10-11] MEDS: Bacitracin 500 Units/gm Oint Foilpak UD TOP SCH (11:55)
[2018-10-11 13:29] LABS: HEMOGLOBIN 8.4 g/dL (12.0-18.0); MEAN CELL VOLUME 95.6 fl (80.0-94.0); MEAN CORPUSCULAR HEMOGLOBIN 31.6 pg (27.0-31.0); MEAN CORPUSCULAR HGB CONC 33.1 g/dL (33.0-37.0); RBC 2.67 Mil/uL (4.40-5.90); RED CELL DISTRIBUTION WIDTH 20.3 % (11.5-14.5); WHITE BLOOD COUNT 3.8 K/uL (4.8-10.8)
[2018-10-11 13:59] LABS: ALB/GLOB RATIO 0.6 (1.0-2.1); ALBUMIN 1.8 g/dL (3.5-5.0); CALCIUM 7.8 mg/dL (8.4-10.2)
--- NOTE | 2018-10-12 08:59 | CP.PCM.PN ---
<Chris Vazquez - Last Filed: 10/12/18 08:56> Subjective - Date & Time of Evaluation Date of Evaluation: 10/12/18 Time of Evaluation: 07:10 - Subjective Subjective: Patient seen and examined this morning at bedside with Dr. Tineo. NAD, no acute event overnight, continues to refuse blood work and medications. Objective - Vital Signs/Intake and Output Vital Signs (last 24 hours): Temp Pulse Resp BP Pulse Ox 98.0 F 94 H 18 121/78 98 10/12/18 07:49 10/12/18 07:49 10/12/18 07:49 10/12/18 07:49 10/12/18 07:49 - Medications Medications: Current Medications Bacitracin (Bacitracin) 1 ea TOP DAILY [facility] Last Admin: 10/11/18 11:55 Dose: Not Given Meropenem 500 mg/ Sodium (Chloride) 100 mls @ 100 mls/hr IVPB Q12 [facility]; Protocol Last Admin: 10/11/18 23:02 Dose: Not Given Lactobacillus Acidophilus (Bacid Acidophilus) 1 cap PO BID [facility] Last Admin: 10/11/18 16:32 Dose: Not Given Losartan Potassium (Cozaar) 50 mg PO DAILY [facility] Last Admin: 09/27/18 15:20 Dose: Not Given Metoprolol Tartrate (Lopressor) 50 mg PO Q12 [facility] Last Admin: 10/11/18 23:02 Dose: Not Given Vancomycin HCl (Vancocin (Oral/Rectal Use)) 125 mg PO Q8 [facility]; Protocol Last Admin: 10/11/18 16:32 Dose: Not Given - Labs Labs: 10/11/18 12:49 10/11/18 12:49 PT 11.9 Seconds (9.8-13.1) 09/24/18 09:45 INR 1.0 09/24/18 09:45 APTT 26.7 Seconds (25.6-37.1) 09/24/18 09:45 - Constitutional Appears: No Acute Distress - Head Exam Head Exam: NORMAL INSPECTION - Eye Exam Eye Exam: Normal appearance, PERRL - ENT Exam ENT Exam: Mucous Membranes Moist - Neck Exam Neck Exam: Normal Inspection - Respiratory Exam Respiratory Exam: Clear to Ausculation Bilateral, NORMAL BREATHING PATTERN - Cardiovascular Exam Cardiovascular Exam: Tachycardia, Irregular Rhythm, +S1, +S2 - GI/Abdominal Exam GI & Abdominal Exam: Soft, Normal Bowel Sounds - Extremities Exam Extremities Exam: Normal Inspection - Back Exam Back Exam: NORMAL INSPECTION - Neurological Exam Neurological Exam: Alert, Awake - Psychiatric Exam Psychiatric exam: Normal Affect - Skin Skin Exam: Normal Color Assessment and Plan - Assessment and Plan (Free Text) Assessment: A/P: 77 YO Male with PMHx of HTN, Atrial fibrillation, CHF (EF: 60%) and ESRD is admitted for anemia, ESRD, hematuria and a fib. A fib w/ RVR -acute on chronic, uncontrolled -HR unstable, patient refuses to take meds and IV -Cardiology on consulted; recs appreciated, -C/w Metoprolol T 50mg PO Q12H -Psych eval: No capacity UTI-ESBL/Hematuria (gross) -acute -Ucx growth sig for Klebsiealla, sensitivity appreciated -ID consulted; recs appreciated, c/w jorgito IV, Flagyl and Vanco -urology consulted; hematuria follow up recs -repeat Ucx is negative, will f/u ID with Abx/meropenem plan (Not getting his IV Abx since 10/04/18 ) -Patient has no IV, Consider PICC if IV Abx required -No capacity as per psych ESRD -acute on chronic -2/2 to interstitial renal disease, granulomatosis polyangiitis -Nephrology on board -s/p tunnel cath 09/26 -No HD for now as per Nephro -Possible Vascular consult for AVF before discharge if requires HD Anemia -acute on chronic -likely 2/2 to ESRD, hematuria, malignancy -s/p 2 units of PRBC on 09/29, on epo per nephro (total 4pRBCs) -Patient is refusing blood work -F/u CBC today, dropped H/H yesterday -Consider transfusion if H/H drops around 7 C. diff pos -Per ID, started on PO vanc -c/w probiotic -No diarrhea HTN/CHF -chronic, controlled -c/w home meds DVT proplx: SCD for now <Hans Tineo - Last Filed: 10/14/18 17:59> Objective - Vital Signs/Intake and Output Vital Signs (last 24 hours): Temp Pulse Resp BP Pulse Ox 97.5 F L 102 H 16 111/68 100 10/14/18 16:21 10/14/18 16:21 10/14/18 16:21 10/14/18 16:21 10/14/18 16:21 - Medications Medications: Current Medications Bacitracin (Bacitracin) 1 ea TOP DAILY [facility] Last Admin: 10/14/18 09:43 Dose: 1 ea Meropenem 500 mg/ Sodium (Chloride) 100 mls @ 100 mls/hr IVPB Q12 [facility]; Protocol Last Admin: 10/14/18 09:31 Dose: Not Given Lactobacillus Acidophilus (Bacid Acidophilus) 1 cap PO BID [facility] Last Admin: 10/14/18 16:51 Dose: 1 cap Losartan Potassium (Cozaar) 50 mg PO DAILY [facility] Last Admin: 09/27/18 15:20 Dose: Not Given Metoprolol Tartrate (Lopressor) 50 mg PO Q12 [facility] Last Admin: 10/14/18 09:52 Dose: Not Given Vancomycin HCl (Vancocin (Oral/Rectal Use)) 125 mg PO Q8 [facility]; Protocol Last Admin: 10/14/18 16:51 Dose: 125 mg - Labs Labs: 10/13/18 10:00 10/13/18 10:00 PT 11.9 Seconds (9.8-13.1) 09/24/18 09:45 INR 1.0 09/24/18 09:45 APTT 26.7 Seconds (25.6-37.1) 09/24/18 09:45 Assessment and Plan - Assessment and Plan (Free Text) Assessment: Patient was personally seen and examined by me in rounds with residents. Available labs and diagnostic data reviewed. Case, Patient's condition and management plan discussed with residents in rounds. Agree with resident's progress note. Plan: As ordered.
[2018-10-12] MEDS: Meropenem 500 MG in Sodium Chloride 0.9% 100 ML IVPB SCH ×2 (09:52→20:58)
[2018-10-12] MEDS: Lactobacillus Acidophilus 500 MU Cap PO SCH ×2 (09:53→17:00)
[2018-10-12] MEDS: Bacitracin 500 Units/gm Oint Foilpak UD TOP SCH (09:53)
[2018-10-12] MEDS: Vancomycin 500 mg (Oral/Rectal USE) PO SCH ×3 (09:53→20:58)
--- NOTE | 2018-10-12 10:09 | CP.PCM.PN ---
Subjective - Date & Time of Evaluation Date of Evaluation: 10/12/18 Time of Evaluation: 09:00 - Subjective Subjective: The patient has shown significant clinical improvement with increased wakefulness and improved appetite He has remained afebrile and hemodynamically stable in that he has had a heart rate between 70 and 90 bpm with a blood pressure of 100 to 110 mmHg systolic He has not shown any significant volume overload even after discontinuation of hemodialysis for approximately a week. His GFR has remained stable between 28 and 30 mL/min while off of hemodialysis. He is scheduled to have his dialysis catheter removed. I will sign off the case. Please call me as needed. Objective - Vital Signs/Intake and Output Vital Signs (last 24 hours): Temp Pulse Resp BP Pulse Ox 98.0 F 94 H 18 121/78 98 10/12/18 07:49 10/12/18 07:49 10/12/18 07:49 10/12/18 07:49 10/12/18 07:49 - Medications Medications: Current Medications Bacitracin (Bacitracin) 1 ea TOP DAILY [facility] Last Admin: 10/12/18 09:53 Dose: Not Given Meropenem 500 mg/ Sodium (Chloride) 100 mls @ 100 mls/hr IVPB Q12 [facility]; Protocol Last Admin: 10/12/18 09:52 Dose: Not Given Lactobacillus Acidophilus (Bacid Acidophilus) 1 cap PO BID [facility] Last Admin: 10/12/18 09:53 Dose: Not Given Losartan Potassium (Cozaar) 50 mg PO DAILY [facility] Last Admin: 09/27/18 15:20 Dose: Not Given Metoprolol Tartrate (Lopressor) 50 mg PO Q12 [facility] Last Admin: 10/12/18 09:53 Dose: Not Given Vancomycin HCl (Vancocin (Oral/Rectal Use)) 125 mg PO Q8 [facility]; Protocol Last Admin: 10/12/18 09:53 Dose: Not Given - Labs Labs: 10/11/18 12:49 10/11/18 12:49 PT 11.9 Seconds (9.8-13.1) 09/24/18 09:45 INR 1.0 09/24/18 09:45 APTT 26.7 Seconds (25.6-37.1) 09/24/18 09:45
--- NOTE | 2018-10-12 13:47 | CP.PCM.PN ---
Subjective - Date & Time of Evaluation Date of Evaluation: 10/12/18 Time of Evaluation: 13:49 - Subjective Subjective: Patient continued to improve Awake Vital signs stable Objective - Vital Signs/Intake and Output Vital Signs (last 24 hours): Temp Pulse Resp BP Pulse Ox 98.4 F 97 H 18 124/75 96 10/12/18 12:28 10/12/18 12:28 10/12/18 12:28 10/12/18 12:28 10/12/18 12:28 - Medications Medications: Current Medications Bacitracin (Bacitracin) 1 ea TOP DAILY [facility] Last Admin: 10/12/18 09:53 Dose: Not Given Meropenem 500 mg/ Sodium (Chloride) 100 mls @ 100 mls/hr IVPB Q12 [facility]; Protocol Last Admin: 10/12/18 09:52 Dose: Not Given Lactobacillus Acidophilus (Bacid Acidophilus) 1 cap PO BID [facility] Last Admin: 10/12/18 09:53 Dose: Not Given Losartan Potassium (Cozaar) 50 mg PO DAILY [facility] Last Admin: 09/27/18 15:20 Dose: Not Given Metoprolol Tartrate (Lopressor) 50 mg PO Q12 [facility] Last Admin: 10/12/18 09:53 Dose: Not Given Vancomycin HCl (Vancocin (Oral/Rectal Use)) 125 mg PO Q8 [facility]; Protocol Last Admin: 10/12/18 09:53 Dose: Not Given - Labs Labs: 10/11/18 12:49 10/11/18 12:49 PT 11.9 Seconds (9.8-13.1) 09/24/18 09:45 INR 1.0 09/24/18 09:45 APTT 26.7 Seconds (25.6-37.1) 09/24/18 09:45 - Constitutional Appears: No Acute Distress - Eye Exam Eye Exam: Conjunctival injection - ENT Exam ENT Exam: absent: Mucous Membranes Moist - Respiratory Exam Respiratory Exam: NORMAL BREATHING PATTERN. absent: Chest Wall Tenderness - Cardiovascular Exam Cardiovascular Exam: absent: Gallop, JVD, Rubs - GI/Abdominal Exam GI & Abdominal Exam: Soft, Normal Bowel Sounds - Extremities Exam Extremities Exam: absent: Calf Tenderness - Back Exam Back Exam: absent: CVA tenderness (L), CVA tenderness (R) - Neurological Exam Neurological Exam: Alert - Skin Skin Exam: absent: Cyanosis Assessment and Plan (1) Atrial fibrillation with RVR Status: Acute (2) ESRD (end stage renal disease) Assessment & Plan: Chronic kidney disease stage IV Patient OFF dialysis Atrial fibrillation with controlled heart rate Overall patient improving and doing much better he responded to antibiotics. Recommendation Remove dialysis catheter Continue management as per primary team Patient continued to improve physically and clinically This is summary of previous admission multitude of medical problem gross hematuria severe anemia prostatic CA status post multiple cystoscopy previous admission Also for history when the patient was diagnosed with the above diagnosis he has a following treatment previous admission Pulses steroid for 3 days Rituximab 1 g twice 4 weeks apart Oral steroid Plasma phoresis And the patient continued to need dialysis s/p Amicar drip s/p cryopercipitate transfusion; goal fibrinogen > 200 - has been stable after transfusion s/p ddavp s/p vit k Status: Chronic (3) Anemia Status: Chronic
[2018-10-13] MEDS: Vancomycin 500 mg (Oral/Rectal USE) PO SCH ×3 (01:12→16:28)
--- NOTE | 2018-10-13 07:55 | CP.PCM.PN ---
<Chris Vazquez - Last Filed: 10/13/18 08:29> Subjective - Date & Time of Evaluation Date of Evaluation: 10/13/18 Time of Evaluation: 07:30 - Subjective Subjective: Patient seen and examined this morning at bedside with Dr. Tineo. NAD, + hematuria, - diarrhea, denies any pain. refusing all the medications, IV and blood work. Spent 30mins yesterday talking to the patient about his diagnosis, importance of medications and blood work. Will try to get CBC today. Patient has HD catheter, will keep that in place for now (doping h/h, no other IV access) Objective - Vital Signs/Intake and Output Vital Signs (last 24 hours): Temp Pulse Resp BP Pulse Ox 98.2 F 96 H 18 113/71 97 10/13/18 05:37 10/13/18 05:37 10/13/18 05:37 10/13/18 05:37 10/13/18 05:37 - Medications Medications: Current Medications Bacitracin (Bacitracin) 1 ea TOP DAILY [facility] Last Admin: 10/12/18 09:53 Dose: Not Given Meropenem 500 mg/ Sodium (Chloride) 100 mls @ 100 mls/hr IVPB Q12 [facility]; Protocol Last Admin: 10/12/18 20:58 Dose: Not Given Lactobacillus Acidophilus (Bacid Acidophilus) 1 cap PO BID [facility] Last Admin: 10/12/18 17:00 Dose: Not Given Losartan Potassium (Cozaar) 50 mg PO DAILY [facility] Last Admin: 09/27/18 15:20 Dose: Not Given Metoprolol Tartrate (Lopressor) 50 mg PO Q12 [facility] Last Admin: 10/12/18 20:54 Dose: 50 mg Vancomycin HCl (Vancocin (Oral/Rectal Use)) 125 mg PO Q8 [facility]; Protocol Last Admin: 10/13/18 01:12 Dose: Not Given - Labs Labs: 10/11/18 12:49 10/11/18 12:49 PT 11.9 Seconds (9.8-13.1) 09/24/18 09:45 INR 1.0 09/24/18 09:45 APTT 26.7 Seconds (25.6-37.1) 09/24/18 09:45 - Constitutional Appears: No Acute Distress - Head Exam Head Exam: NORMAL INSPECTION - Eye Exam Eye Exam: Normal appearance, PERRL Pupil Exam: NORMAL ACCOMODATION - ENT Exam ENT Exam: Mucous Membranes Moist - Neck Exam Neck Exam: Normal Inspection - Respiratory Exam Respiratory Exam: Clear to Ausculation Bilateral, NORMAL BREATHING PATTERN. absent: Decreased Breath Sounds, Rhonchi, Wheezes, Respiratory Distress - Cardiovascular Exam Cardiovascular Exam: Irregular Rhythm - GI/Abdominal Exam GI & Abdominal Exam: Soft, Normal Bowel Sounds. absent: Tenderness - Extremities Exam Extremities Exam: Normal Inspection - Back Exam Back Exam: NORMAL INSPECTION - Neurological Exam Neurological Exam: Alert, Awake - Psychiatric Exam Psychiatric exam: Normal Affect - Skin Skin Exam: Normal Color Assessment and Plan - Assessment and Plan (Free Text) Assessment: A/P: A/P: 77 YO Male with PMHx of HTN, Atrial fibrillation, CHF (EF: 60%) and ESRD is admitted for anemia, ESRD, hematuria and a fib. A fib w/ RVR -Cardiology on consulted; recs appreciated, will notify if anything changes -C/w Metoprolol T 50mg PO Q12H -Psych eval: No capacity UTI-ESBL/Hematuria (gross) -ID consulted; recs appreciated -urology consulted; hematuria follow up recs (will call urology) -repeat Ucx is negative, will f/u ID with Abx/meropenem plan (Not getting his IV Abx since 10/04/18 ) -Patient has no IV, Has HD catheter -No capacity as per psych ESRD -acute on chronic -2/2 to interstitial renal disease, granulomatosis polyangiitis -Nephrology on board -s/p tunnel cath 09/26 -No HD for now as per Nephro Anemia -acute on chronic -likely 2/2 to ESRD, hematuria, malignancy -s/p 2 units of PRBC on 09/29, on epo per nephro (total 4pRBCs) -Patient is refusing blood work -F/u CBC today, dropped H/H yesterday -Consider transfusion if H/H drops around 7 C. diff pos -Per ID, started on PO vanc -c/w probiotic -No diarrhea HTN/CHF -chronic, controlled -c/w home meds DVT proplx: SCD for now <Hans Tineo - Last Filed: 10/14/18 17:59> Objective - Vital Signs/Intake and Output Vital Signs (last 24 hours): Temp Pulse Resp BP Pulse Ox 97.5 F L 102 H 16 111/68 100 10/14/18 16:21 10/14/18 16:21 10/14/18 16:21 10/14/18 16:21 10/14/18 16:21 - Medications Medications: Current Medications Bacitracin (Bacitracin) 1 ea TOP DAILY [facility] Last Admin: 10/14/18 09:43 Dose: 1 ea Meropenem 500 mg/ Sodium (Chloride) 100 mls @ 100 mls/hr IVPB Q12 [facility]; Protocol Last Admin: 10/14/18 09:31 Dose: Not Given Lactobacillus Acidophilus (Bacid Acidophilus) 1 cap PO BID [facility] Last Admin: 10/14/18 16:51 Dose: 1 cap Losartan Potassium (Cozaar) 50 mg PO DAILY [facility] Last Admin: 09/27/18 15:20 Dose: Not Given Metoprolol Tartrate (Lopressor) 50 mg PO Q12 [facility] Last Admin: 10/14/18 09:52 Dose: Not Given Vancomycin HCl (Vancocin (Oral/Rectal Use)) 125 mg PO Q8 [facility]; Protocol Last Admin: 10/14/18 16:51 Dose: 125 mg - Labs Labs: 10/13/18 10:00 10/13/18 10:00 PT 11.9 Seconds (9.8-13.1) 09/24/18 09:45 INR 1.0 09/24/18 09:45 APTT 26.7 Seconds (25.6-37.1) 09/24/18 09:45 Assessment and Plan - Assessment and Plan (Free Text) Assessment: Patient was personally seen and examined by me in rounds with residents. Available labs and diagnostic data reviewed. Case, Patient's condition and management plan discussed with residents in rounds. Agree with resident's progress note. Plan: As ordered.
[2018-10-13] MEDS: Lactobacillus Acidophilus 500 MU Cap PO SCH ×2 (08:37→16:28)
[2018-10-13] MEDS: Bacitracin 500 Units/gm Oint Foilpak UD TOP SCH (09:14)
[2018-10-13] MEDS: Meropenem 500 MG in Sodium Chloride 0.9% 100 ML IVPB SCH ×2 (09:14→22:15)
[2018-10-13 10:18] LABS: BASO # 0.1 K/uL (0.0-0.2); BASO % 1.2 % (0.0-2.0); EOS # 0.3 K/uL (0.0-0.7); EOS % 4.2 % (0.0-4.0); HEMOGLOBIN 9.5 g/dL (12.0-18.0); LYMPH # 0.7 K/uL (1.0-4.3); LYMPH % 10.6 % (20.0-40.0); MEAN CELL VOLUME 96.6 fl (80.0-94.0); MEAN CORPUSCULAR HEMOGLOBIN 31.3 pg (27.0-31.0); MEAN CORPUSCULAR HGB CONC 32.4 g/dL (33.0-37.0); MEAN PLATELET VOLUME 6.7 fl (7.2-11.7); MONO # 1.1 K/uL (0.0-0.8); NEUT # 4.3 K/uL (1.8-7.0); NRBC % 0.1 % (0.0-0.0); RBC 3.03 Mil/uL (4.40-5.90); WHITE BLOOD COUNT 6.4 K/uL (4.8-10.8)
[2018-10-13 10:55] LABS: ALB/GLOB RATIO 0.6 (1.0-2.1); ALBUMIN 1.9 g/dL (3.5-5.0); CALCIUM 8.1 mg/dL (8.4-10.2)
--- NOTE | 2018-10-13 11:04 | CP.PCM.PN ---
Subjective - Date & Time of Evaluation Date of Evaluation: 10/13/18 Time of Evaluation: 11:03 - Subjective Subjective: Nephrology Attending Covering patients for Dr. Moses Bernabe Patient seen and examined at bedside. Improving. SCr stable. Feels well currently no complaints noted. Objective - Vital Signs/Intake and Output Vital Signs (last 24 hours): Temp Pulse Resp BP Pulse Ox 97.9 F 100 H 18 116/72 100 10/13/18 07:59 10/13/18 08:37 10/13/18 07:59 10/13/18 08:37 10/13/18 07:59 - Medications Medications: Current Medications Bacitracin (Bacitracin) 1 ea TOP DAILY [facility] Last Admin: 10/13/18 09:14 Dose: Not Given Meropenem 500 mg/ Sodium (Chloride) 100 mls @ 100 mls/hr IVPB Q12 [facility]; Protocol Last Admin: 10/13/18 09:14 Dose: Not Given Lactobacillus Acidophilus (Bacid Acidophilus) 1 cap PO BID [facility] Last Admin: 10/13/18 08:37 Dose: 1 cap Losartan Potassium (Cozaar) 50 mg PO DAILY [facility] Last Admin: 09/27/18 15:20 Dose: Not Given Metoprolol Tartrate (Lopressor) 50 mg PO Q12 [facility] Last Admin: 10/13/18 08:37 Dose: 50 mg Vancomycin HCl (Vancocin (Oral/Rectal Use)) 125 mg PO Q8 [facility]; Protocol Last Admin: 10/13/18 08:40 Dose: 125 mg - Labs Labs: 10/13/18 10:00 10/13/18 10:00 PT 11.9 Seconds (9.8-13.1) 09/24/18 09:45 INR 1.0 09/24/18 09:45 APTT 26.7 Seconds (25.6-37.1) 09/24/18 09:45 - Constitutional Appears: Well, No Acute Distress, Agitated, Confused - Head Exam Head Exam: ATRAUMATIC, NORMAL INSPECTION, NORMOCEPHALIC - Eye Exam Eye Exam: EOMI, Normal appearance, PERRL Pupil Exam: NORMAL ACCOMODATION - ENT Exam ENT Exam: Mucous Membranes Moist, Normal Exam - Neck Exam Neck Exam: Full ROM - Respiratory Exam Respiratory Exam: Clear to Ausculation Bilateral, NORMAL BREATHING PATTERN - Cardiovascular Exam Cardiovascular Exam: REGULAR RHYTHM, RRR, +S1, +S2 - GI/Abdominal Exam GI & Abdominal Exam: Soft, Normal Bowel Sounds - Extremities Exam Extremities Exam: Full ROM, Normal Capillary Refill, Normal Inspection - Back Exam Back Exam: NORMAL INSPECTION - Neurological Exam Neurological Exam: Alert, Awake, CN II-XII Intact - Psychiatric Exam Psychiatric exam: Agitated, Normal Affect - Skin Skin Exam: Dry, Intact, Normal Color, Warm Assessment and Plan - Assessment and Plan (Free Text) Assessment: 77 yo M h/o CKD stage 4, prostatic ca, h/o pulse steroid and Rituximab, now off HD, admitted for anemia, hematuria and a fib. 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
--- NOTE | 2018-10-13 13:12 | PQF ---
PROVIDER RESPONSE TEXT: Diastolic chf REVIEWER QUERY TEXT: Heart Failure Acuity and Type Congestive Heart Failure is documented in the Medical Record. Please document the type (includes pro bable or suspected):if known Such as: Type: -- Combined systolic and diastolic (heart failure with reduced ejection fraction and diastolic) dysfu nction -- Diastolic (HFpEF) -- Systolic (HFrEF) -- Left heart failure -- Right heart failure -- Right heart failure due to left heart failure -- High output failure -- End stage heart failure -- Other, please specify 09/29 Resident progress note includes:CHF (EF: 60%)--- HTN/CHF -chronic, controlled -c/w home meds The patient's Clinical Indicators include: -- Query created by: Colleen Saleh on 09/30/2018 10:17 AM Electronically signed by: Hans Tineo 10/13/2018 1:09 PM
--- NOTE | 2018-10-13 13:12 | PQF ---
PROVIDER RESPONSE TEXT: Hadley catheter related uti present on admission REVIEWER QUERY TEXT: Clarification of Clinical Diagnostic Findings Please clarify if there is a hadley catheter related UTI: POA ? OR: Disagree OR: Other explanation of clinical finding 09/24 : Urine culture: urine ,hadley:Klebsiella Pneumoniae 09/24 Nurses Notes Patient Care Tab: Adult Primary Survey: NN: in by EMS from [facility]-- p t. came with 3-way hadley cathether 09/27 Resident note includes: UTI (urinary tract infection) Status: Acute 09/28 ID consult: He was admitted for sepsis / UTI grew ESBL in urine The patient's Clinical Indicators include: ----- Query created by: Colleen Saleh 09/30/2018 10:16 AM Electronically signed by: Hans Tineo 10/13/2018 1:09 PM
--- NOTE | 2018-10-13 13:12 | PQF ---
PROVIDER RESPONSE TEXT: Sepsis ruled in, etiology urine with + microorganisms. REVIEWER QUERY TEXT: Clarification of Clinical Diagnostic Findings Please clarify if Sepsis is ruled in or Sepsis is ruled out? if ruled in etiology and organism causin g the Sepsis if known: OR: Other explanation of clinical finding afebrile with tachycardia respiratory rate:16->20 WBC: 7.3->6.5->6.5 Urine culture: urine ,hadley:Klebsiella Pneumoniae 09/28 ID note includes: 09/28 ID: [facility] because of lo w blood pressure He was admitted for sepsis / UTI grew ESBL in urine now has C Diff Assessment (1) Atrial fibrillation with RVR Status: Acute (2) Anemia Status: Chronic (3) ESRD (end stage renal disease) Status: Chronic (4) Acute on chronic renal failure Status: Acute (5) Hepatitis C Status: Acute cont Merrem for ESBL urine eval cont PO Vanco for c diff x 10 days The patient's Clinical Indicators include: --- Query created by: Colleen Saleh 09/30/2018 10:14 AM Electronically signed by: Hans Tineo 10/13/2018 1:09 PM
[2018-10-14] MEDS: Vancomycin 500 mg (Oral/Rectal USE) PO SCH ×4 (00:46→16:51)
--- NOTE | 2018-10-14 09:16 | CP.PCM.PN ---
<Chris Vzaquez - Last Filed: 10/14/18 11:02> Subjective - Date & Time of Evaluation Date of Evaluation: 10/14/18 Time of Evaluation: 08:00 - Subjective Subjective: Patient seen and examined this morning with Dr. Moon. NAD, easily arousable, denies any acute event overnight, on and off hematuria, denies any diarrhea. + poor appetite. CBC stable. Objective - Vital Signs/Intake and Output Vital Signs (last 24 hours): Temp Pulse Resp BP Pulse Ox 97.8 F 105 H 18 110/71 100 10/14/18 08:03 10/14/18 08:03 10/14/18 08:03 10/14/18 08:03 10/14/18 08:03 - Medications Medications: Current Medications Bacitracin (Bacitracin) 1 ea TOP DAILY [facility] Last Admin: 10/13/18 09:14 Dose: Not Given Meropenem 500 mg/ Sodium (Chloride) 100 mls @ 100 mls/hr IVPB Q12 [facility]; Protocol Last Admin: 10/13/18 22:15 Dose: Not Given Lactobacillus Acidophilus (Bacid Acidophilus) 1 cap PO BID [facility] Last Admin: 10/13/18 16:28 Dose: 1 cap Losartan Potassium (Cozaar) 50 mg PO DAILY [facility] Last Admin: 09/27/18 15:20 Dose: Not Given Metoprolol Tartrate (Lopressor) 50 mg PO Q12 [facility] Last Admin: 10/13/18 21:28 Dose: 50 mg Vancomycin HCl (Vancocin (Oral/Rectal Use)) 125 mg PO Q8 [facility]; Protocol Last Admin: 10/14/18 00:46 Dose: 125 mg - Labs Labs: 10/13/18 10:00 10/13/18 10:00 PT 11.9 Seconds (9.8-13.1) 09/24/18 09:45 INR 1.0 09/24/18 09:45 APTT 26.7 Seconds (25.6-37.1) 09/24/18 09:45 - Constitutional Appears: No Acute Distress - Head Exam Head Exam: NORMAL INSPECTION - Eye Exam Eye Exam: Normal appearance - ENT Exam ENT Exam: Mucous Membranes Moist - Neck Exam Neck Exam: Normal Inspection - Respiratory Exam Respiratory Exam: Clear to Ausculation Bilateral, NORMAL BREATHING PATTERN - Cardiovascular Exam Cardiovascular Exam: Tachycardia, Irregular Rhythm - GI/Abdominal Exam GI & Abdominal Exam: Soft, Normal Bowel Sounds. absent: Tenderness - Extremities Exam Extremities Exam: Full ROM, Normal Capillary Refill, Normal Inspection - Back Exam Back Exam: NORMAL INSPECTION - Neurological Exam Neurological Exam: Alert, Awake - Psychiatric Exam Psychiatric exam: Normal Affect - Skin Skin Exam: Normal Color Assessment and Plan - Assessment and Plan (Free Text) Assessment: A/P: 77 YO Male with PMHx of HTN, Atrial fibrillation, CHF (EF: 60%) and ESRD is admitted for anemia, ESRD, hematuria and a fib. A fib w/ RVR -Cardiology on consulted; recs appreciated, will notify if anything changes -C/w Metoprolol T 50mg PO Q12H -Psych eval: No capacity UTI-ESBL/Hematuria (gross) -ID consulted; recs appreciated -urology consulted; hematuria follow up recs -repeat Ucx is negative, will f/u ID with Abx/meropenem plan (Not getting his IV Abx since 10/04/18 ) -Patient has no IV, Has HD catheter -No capacity as per psych ESRD -acute on chronic -2/2 to interstitial renal disease, granulomatosis polyangiitis -Nephrology on board -s/p tunnel cath 09/26 and removed. -No HD for now as per Nephro Anemia -acute on chronic -likely 2/2 to ESRD, hematuria, malignancy -s/p 2 units of PRBC on 09/29, on epo per nephro (total 4pRBCs) -CBC stable C. diff pos -Per ID, started on PO vanc -c/w probiotic -No diarrhea HTN/CHF -chronic, controlled -c/w home meds DVT proplx: SCD for now <Timbo Moon - Last Filed: 10/16/18 19:35> Objective - Vital Signs/Intake and Output Vital Signs (last 24 hours): Temp Pulse Resp BP Pulse Ox 98.9 F 99 H 18 138/81 95 10/16/18 15:49 10/16/18 15:49 10/16/18 15:49 10/16/18 15:49 10/16/18 15:49 - Medications Medications: Current Medications Bacitracin (Bacitracin) 1 ea TOP DAILY [facility] Last Admin: 10/16/18 09:07 Dose: 1 ea Lactobacillus Acidophilus (Bacid Acidophilus) 1 cap PO BID [facility] Last Admin: 10/16/18 16:25 Dose: Not Given Losartan Potassium (Cozaar) 50 mg PO DAILY [facility] Last Admin: 09/27/18 15:20 Dose: Not Given Metoprolol Tartrate (Lopressor) 50 mg PO Q12 [facility] Last Admin: 10/16/18 09:06 Dose: 50 mg Vancomycin HCl (Vancocin (Oral/Rectal Use)) 125 mg PO Q8 [facility]; Protocol Last Admin: 10/16/18 16:25 Dose: Not Given - Labs Labs: 10/13/18 10:00 10/13/18 10:00 PT 11.9 Seconds (9.8-13.1) 09/24/18 09:45 INR 1.0 09/24/18 09:45 APTT 26.7 Seconds (25.6-37.1) 09/24/18 09:45 Assessment and Plan - Assessment and Plan (Free Text) Plan: I was present during evaluation and discussed with Dr George huang plans of care and mgt.
[2018-10-14] MEDS: Meropenem 500 MG in Sodium Chloride 0.9% 100 ML IVPB SCH ×3 (09:31→21:58)
[2018-10-14] MEDS: Lactobacillus Acidophilus 500 MU Cap PO SCH ×3 (09:41→16:51)
[2018-10-14] MEDS: Bacitracin 500 Units/gm Oint Foilpak UD TOP SCH (09:43)
--- NOTE | 2018-10-14 11:10 | CP.PCM.PN ---
Subjective - Date & Time of Evaluation Date of Evaluation: 10/14/18 Time of Evaluation: 11:08 - Subjective Subjective: Patient is stable no complaint reported vital signs noted to be stable Objective - Vital Signs/Intake and Output Vital Signs (last 24 hours): Temp Pulse Resp BP Pulse Ox 97.8 F 105 H 18 110/71 100 10/14/18 09:00 10/14/18 09:00 10/14/18 09:00 10/14/18 09:00 10/14/18 09:00 - Medications Medications: Current Medications Bacitracin (Bacitracin) 1 ea TOP DAILY [facility] Last Admin: 10/14/18 09:43 Dose: 1 ea Meropenem 500 mg/ Sodium (Chloride) 100 mls @ 100 mls/hr IVPB Q12 [facility]; Protocol Last Admin: 10/14/18 09:31 Dose: Not Given Lactobacillus Acidophilus (Bacid Acidophilus) 1 cap PO BID [facility] Last Admin: 10/14/18 09:52 Dose: Not Given Losartan Potassium (Cozaar) 50 mg PO DAILY [facility] Last Admin: 09/27/18 15:20 Dose: Not Given Metoprolol Tartrate (Lopressor) 50 mg PO Q12 [facility] Last Admin: 10/14/18 09:52 Dose: Not Given Vancomycin HCl (Vancocin (Oral/Rectal Use)) 125 mg PO Q8 [facility]; Protocol Last Admin: 10/14/18 09:52 Dose: Not Given - Labs Labs: 10/13/18 10:00 10/13/18 10:00 PT 11.9 Seconds (9.8-13.1) 09/24/18 09:45 INR 1.0 09/24/18 09:45 APTT 26.7 Seconds (25.6-37.1) 09/24/18 09:45 - Constitutional Appears: No Acute Distress - Eye Exam Eye Exam: Conjunctival injection - ENT Exam ENT Exam: Mucous Membranes Moist - Neck Exam Neck Exam: absent: Lymphadenopathy - Respiratory Exam Respiratory Exam: NORMAL BREATHING PATTERN - Cardiovascular Exam Cardiovascular Exam: absent: Gallop, JVD, Rubs - GI/Abdominal Exam GI & Abdominal Exam: Soft, Normal Bowel Sounds - Extremities Exam Extremities Exam: absent: Calf Tenderness - Back Exam Back Exam: absent: CVA tenderness (L), CVA tenderness (R) - Neurological Exam Neurological Exam: Alert - Skin Skin Exam: absent: Cyanosis Assessment and Plan (1) Atrial fibrillation with RVR Status: Acute (2) ESRD (end stage renal disease) Assessment & Plan: Assessment & Plan: Chronic kidney disease stage IV Patient OFF dialysis Atrial fibrillation with controlled heart rate Overall patient improving and doing much better he responded to antibiotics. Recommendation Remove dialysis catheter Continue management as per primary team Patient continued to improve physically and clinically This is summary of previous admission multitude of medical problem gross hematuria severe anemia prostatic CA status post multiple cystoscopy previous admission Also for history when the patient was diagnosed with the above diagnosis he has a following treatment previous admission Pulses steroid for 3 days Rituximab 1 g twice 4 weeks apart Oral steroid Plasma phoresis And the patient continued to need dialysis s/p Amicar drip s/p cryopercipitate transfusion; goal fibrinogen > 200 - has been stable after transfusion s/p ddavp s/p vit k Status: Chronic (3) Anemia Status: Chronic
--- NOTE | 2018-10-14 13:58 | CP.PCM.PN ---
Subjective - Date & Time of Evaluation Date of Evaluation: 10/14/18 Time of Evaluation: 06:00 - Subjective Subjective: improving afebrile denies diarrhea Objective - Vital Signs/Intake and Output Vital Signs (last 24 hours): Temp Pulse Resp BP Pulse Ox 97.4 F L 87 18 117/74 95 10/14/18 12:34 10/14/18 12:34 10/14/18 12:34 10/14/18 12:34 10/14/18 12:34 - Medications Medications: Current Medications Bacitracin (Bacitracin) 1 ea TOP DAILY [facility] Last Admin: 10/14/18 09:43 Dose: 1 ea Meropenem 500 mg/ Sodium (Chloride) 100 mls @ 100 mls/hr IVPB Q12 [facility]; Protocol Last Admin: 10/14/18 09:31 Dose: Not Given Lactobacillus Acidophilus (Bacid Acidophilus) 1 cap PO BID [facility] Last Admin: 10/14/18 09:52 Dose: Not Given Losartan Potassium (Cozaar) 50 mg PO DAILY [facility] Last Admin: 09/27/18 15:20 Dose: Not Given Metoprolol Tartrate (Lopressor) 50 mg PO Q12 [facility] Last Admin: 10/14/18 09:52 Dose: Not Given Vancomycin HCl (Vancocin (Oral/Rectal Use)) 125 mg PO Q8 [facility]; Protocol Last Admin: 10/14/18 09:52 Dose: Not Given - Labs Labs: 10/13/18 10:00 10/13/18 10:00 PT 11.9 Seconds (9.8-13.1) 09/24/18 09:45 INR 1.0 09/24/18 09:45 APTT 26.7 Seconds (25.6-37.1) 09/24/18 09:45 - Constitutional Appears: Non-toxic, Chronically Ill - Head Exam Head Exam: NORMOCEPHALIC - Eye Exam Eye Exam: absent: Scleral icterus - ENT Exam ENT Exam: Mucous Membranes Dry - Neck Exam Neck Exam: absent: Lymphadenopathy - Respiratory Exam Respiratory Exam: Decreased Breath Sounds - Cardiovascular Exam Cardiovascular Exam: REGULAR RHYTHM - GI/Abdominal Exam GI & Abdominal Exam: Distended - Rectal Exam Rectal Exam: Deferred - Exam Exam: NORMAL INSPECTION - Extremities Exam Extremities Exam: absent: Pedal Edema - Back Exam Back Exam: absent: CVA tenderness (L), CVA tenderness (R) - Neurological Exam Neurological Exam: Alert, Awake, CN II-XII Intact, Oriented x3 Assessment and Plan (1) Atrial fibrillation with RVR Status: Acute (2) Anemia Status: Chronic (3) ESRD (end stage renal disease) Status: Chronic (4) Acute on chronic renal failure Status: Acute (5) Hepatitis C Status: Acute - Assessment and Plan (Free Text) Assessment: cont rx as planned
[2018-10-15] MEDS: Vancomycin 500 mg (Oral/Rectal USE) PO SCH ×3 (01:52→17:33)
--- NOTE | 2018-10-15 08:28 | CP.PCM.PN ---
Subjective - Date & Time of Evaluation Date of Evaluation: 10/15/18 Time of Evaluation: 08:27 - Subjective Subjective: Nephrology Consultation Note Assessment: Stable Hypertensive Chronic Kidney Disease (I12.0) End stage renal disease (N18.6) dependence on hemodialysis (Z99.2) Anemia (D64.9), A fib CA prostate hx of pauci-immune GN hematuria Plan: hd on hold for now monitoring renal function stable prbc need per primary gross hematuria - per monitor h and h bp stable s: seen and examined resting comfortably Physical Examination: General Appearance: Comfortable, in no acute respiratory distress, co-operative . Vitals reviewed and noted as below Head; Atraumatic, normocephalic ENT: no ulcers no thrush. Tongue is midline. Oropharynx: no rash or ulcers. EYES: Pupils are equal, round and reactive to light accommodation. Eye muscles and extraocular movement intact. Sclera is anicteric. Neck; supple no lymphadenopathy, no thyromegaly or bruit Lungs: Normal respiratory rate/effort. Breath sounds bilateral equal and clear Heart: Normal rate. s1s2 normal. No rub or gallop. Extremities: no edema. No varicose veins Neurological: Patient is alert, awake and oriented to person, place and time. No focal deficit. Strength bilateral appropriate and equal Skin: Warm and dry. Normal turgor. No rash. Palpitation: Normal elasticity for age Abdomen: Abdomen is soft. Bowel sounds +. There is no abdominal tenderness, no guarding/rigidity or organomegaly Psych: lack insight and normal affect/mood MSK: no joint tenderness or swelling. Digits and nails normal, no deformity : kidney or bladder not palpable Objective - Vital Signs/Intake and Output Vital Signs (last 24 hours): Temp Pulse Resp BP Pulse Ox 97.4 F L 96 H 16 116/83 97 10/15/18 05:00 10/15/18 05:00 10/15/18 05:00 10/15/18 05:00 10/15/18 05:00 - Medications Medications: Current Medications Bacitracin (Bacitracin) 1 ea TOP DAILY [facility] Last Admin: 10/14/18 09:43 Dose: 1 ea Meropenem 500 mg/ Sodium (Chloride) 100 mls @ 100 mls/hr IVPB Q12 [facility]; Protocol Last Admin: 10/14/18 21:58 Dose: Not Given Lactobacillus Acidophilus (Bacid Acidophilus) 1 cap PO BID [facility] Last Admin: 10/14/18 16:51 Dose: 1 cap Losartan Potassium (Cozaar) 50 mg PO DAILY [facility] Last Admin: 09/27/18 15:20 Dose: Not Given Metoprolol Tartrate (Lopressor) 50 mg PO Q12 [facility] Last Admin: 10/14/18 21:53 Dose: 50 mg Vancomycin HCl (Vancocin (Oral/Rectal Use)) 125 mg PO Q8 [facility]; Protocol Last Admin: 10/15/18 01:52 Dose: Not Given - Labs Labs: 10/13/18 10:00 10/13/18 10:00 PT 11.9 Seconds (9.8-13.1) 09/24/18 09:45 INR 1.0 09/24/18 09:45 APTT 26.7 Seconds (25.6-37.1) 09/24/18 09:45
[2018-10-15] MEDS: Lactobacillus Acidophilus 500 MU Cap PO SCH ×2 (09:02→17:33)
[2018-10-15] MEDS: Meropenem 500 MG in Sodium Chloride 0.9% 100 ML IVPB SCH ×2 (09:02→21:57)
[2018-10-15] MEDS: Bacitracin 500 Units/gm Oint Foilpak UD TOP SCH (09:03)
[2018-10-15 17:22] LABS: URINE BILIRUBIN NEGATIVE (NEGATIVE); URINE BLOOD MODERATE (NEGATIVE); URINE COLOR RED (YELLOW); URINE GLUCOSE (UA) 50 mg/dL (NEGATIVE); URINE LEUKOCYTE ESTERASE TRACE Leu/uL (Negative); URINE PROTEIN 100 mg/dL (NEGATIVE); URINE UROBILINOGEN 0.2-1.0 mg/dL (0.2-1.0); WBC CLUMPS MANY /hpf
[2018-10-15 17:32] LABS: URINE CLARITY Turbid (Clear)
[2018-10-16] MEDS: Vancomycin 500 mg (Oral/Rectal USE) PO SCH ×3 (01:00→16:25)
[2018-10-16] MEDS: Lactobacillus Acidophilus 500 MU Cap PO SCH ×2 (09:06→16:25)
[2018-10-16] MEDS: Bacitracin 500 Units/gm Oint Foilpak UD TOP SCH (09:07)
--- NOTE | 2018-10-16 19:38 | CP.PCM.PN ---
Subjective - Date & Time of Evaluation Date of Evaluation: 10/15/18 Time of Evaluation: 16:00 - Subjective Subjective: Patient is stable Has no chest pain Noted increased appetite and intake. Has no fever. Objective - Vital Signs/Intake and Output Vital Signs (last 24 hours): Temp Pulse Resp BP Pulse Ox 98.9 F 99 H 18 138/81 95 10/16/18 15:49 10/16/18 15:49 10/16/18 15:49 10/16/18 15:49 10/16/18 15:49 - Medications Medications: Current Medications Bacitracin (Bacitracin) 1 ea TOP DAILY [facility] Last Admin: 10/16/18 09:07 Dose: 1 ea Lactobacillus Acidophilus (Bacid Acidophilus) 1 cap PO BID [facility] Last Admin: 10/16/18 16:25 Dose: Not Given Losartan Potassium (Cozaar) 50 mg PO DAILY [facility] Last Admin: 09/27/18 15:20 Dose: Not Given Metoprolol Tartrate (Lopressor) 50 mg PO Q12 [facility] Last Admin: 10/16/18 09:06 Dose: 50 mg Vancomycin HCl (Vancocin (Oral/Rectal Use)) 125 mg PO Q8 [facility]; Protocol Last Admin: 10/16/18 16:25 Dose: Not Given - Labs Labs: 10/13/18 10:00 10/13/18 10:00 PT 11.9 Seconds (9.8-13.1) 09/24/18 09:45 INR 1.0 09/24/18 09:45 APTT 26.7 Seconds (25.6-37.1) 09/24/18 09:45 - Head Exam Head Exam: NORMAL INSPECTION - Eye Exam Eye Exam: Normal appearance - ENT Exam ENT Exam: Mucous Membranes Moist - Respiratory Exam Respiratory Exam: Clear to Ausculation Bilateral - Cardiovascular Exam Cardiovascular Exam: Irregular Rhythm - GI/Abdominal Exam GI & Abdominal Exam: Normal Bowel Sounds - Neurological Exam Neurological Exam: Awake, Oriented x3 Assessment and Plan (1) Atrial fibrillation with RVR Status: Acute (2) Anemia Status: Chronic (3) ESRD (end stage renal disease) Status: Chronic (4) Hypertension Status: Acute - Assessment and Plan (Free Text) Plan: Cont meds Con ttx Cont nutrition DC planning
--- NOTE | 2018-10-16 19:41 | CP.PCM.PN ---
Subjective - Date & Time of Evaluation Date of Evaluation: 10/16/18 Time of Evaluation: 14:00 - Subjective Subjective: Patient remains stable Noted improved intake Has no fever. No SOB. Objective - Vital Signs/Intake and Output Vital Signs (last 24 hours): Temp Pulse Resp BP Pulse Ox 98.9 F 99 H 18 138/81 95 10/16/18 15:49 10/16/18 15:49 10/16/18 15:49 10/16/18 15:49 10/16/18 15:49 - Medications Medications: Current Medications Bacitracin (Bacitracin) 1 ea TOP DAILY [facility] Last Admin: 10/16/18 09:07 Dose: 1 ea Lactobacillus Acidophilus (Bacid Acidophilus) 1 cap PO BID [facility] Last Admin: 10/16/18 16:25 Dose: Not Given Losartan Potassium (Cozaar) 50 mg PO DAILY [facility] Last Admin: 09/27/18 15:20 Dose: Not Given Metoprolol Tartrate (Lopressor) 50 mg PO Q12 [facility] Last Admin: 10/16/18 09:06 Dose: 50 mg Vancomycin HCl (Vancocin (Oral/Rectal Use)) 125 mg PO Q8 [facility]; Protocol Last Admin: 10/16/18 16:25 Dose: Not Given - Labs Labs: 10/13/18 10:00 10/13/18 10:00 PT 11.9 Seconds (9.8-13.1) 09/24/18 09:45 INR 1.0 09/24/18 09:45 APTT 26.7 Seconds (25.6-37.1) 09/24/18 09:45 - Head Exam Head Exam: NORMAL INSPECTION - Eye Exam Eye Exam: Normal appearance - ENT Exam ENT Exam: Mucous Membranes Moist - Respiratory Exam Respiratory Exam: Clear to Ausculation Bilateral - GI/Abdominal Exam GI & Abdominal Exam: Normal Bowel Sounds - Neurological Exam Neurological Exam: Awake Assessment and Plan (1) Atrial fibrillation with RVR Status: Acute (2) Anemia Status: Chronic (3) ESRD (end stage renal disease) Status: Chronic (4) Hypertension Status: Acute - Assessment and Plan (Free Text) Plan: Cont meds Con ttx Cont HD Discharge plans for AM.
[2018-10-17] MEDS: Vancomycin 500 mg (Oral/Rectal USE) PO SCH ×2 (00:44→09:43)
--- NOTE | 2018-10-17 09:40 | CP.PCM.PN ---
Subjective - Date & Time of Evaluation Date of Evaluation: 10/17/18 Time of Evaluation: 09:38 - Subjective Subjective: Patient is stable No significant changes noted Vital signs stable Objective - Vital Signs/Intake and Output Vital Signs (last 24 hours): Temp Pulse Resp BP Pulse Ox 98.3 F 104 H 18 130/86 98 10/17/18 07:54 10/17/18 07:54 10/17/18 07:54 10/17/18 07:54 10/17/18 07:54 - Medications Medications: Current Medications Bacitracin (Bacitracin) 1 ea TOP DAILY [facility] Last Admin: 10/16/18 09:07 Dose: 1 ea Lactobacillus Acidophilus (Bacid Acidophilus) 1 cap PO BID [facility] Last Admin: 10/16/18 16:25 Dose: Not Given Losartan Potassium (Cozaar) 50 mg PO DAILY [facility] Last Admin: 09/27/18 15:20 Dose: Not Given Metoprolol Tartrate (Lopressor) 50 mg PO Q12 [facility] Last Admin: 10/16/18 21:27 Dose: 50 mg Vancomycin HCl (Vancocin (Oral/Rectal Use)) 125 mg PO Q8 [facility]; Protocol Last Admin: 10/17/18 00:44 Dose: 125 mg - Labs Labs: 10/13/18 10:00 10/13/18 10:00 PT 11.9 Seconds (9.8-13.1) 09/24/18 09:45 INR 1.0 09/24/18 09:45 APTT 26.7 Seconds (25.6-37.1) 09/24/18 09:45 - Constitutional Appears: No Acute Distress - Eye Exam Eye Exam: Conjunctival injection - ENT Exam ENT Exam: Mucous Membranes Moist - Neck Exam Neck Exam: absent: Lymphadenopathy - Respiratory Exam Respiratory Exam: NORMAL BREATHING PATTERN. absent: Chest Wall Tenderness - GI/Abdominal Exam GI & Abdominal Exam: Soft, Normal Bowel Sounds - Extremities Exam Extremities Exam: absent: Calf Tenderness - Back Exam Back Exam: absent: CVA tenderness (L), CVA tenderness (R) - Neurological Exam Neurological Exam: Altered Assessment and Plan (1) Atrial fibrillation with RVR Status: Acute (2) ESRD (end stage renal disease) Assessment & Plan: Assessment & Plan: Chronic kidney disease stage IV Patient OFF dialysis Atrial fibrillation with controlled heart rate Overall patient improving and doing much better he responded to antibiotics. Recommendation Continue management as per primary team Patient continued to improve physically and clinically but mentally he does not appears to be competent? Status: Chronic (3) Anemia Status: Chronic
[2018-10-17] MEDS: Lactobacillus Acidophilus 500 MU Cap PO SCH ×2 (09:42→17:16)
[2018-10-17] MEDS: Bacitracin 500 Units/gm Oint Foilpak UD TOP SCH (09:43)
[2018-10-18 06:35] VITALS: BMI 18.8
[2018-10-18 07:18] LABS: HEMOGLOBIN 8.2 g/dL (12.0-18.0); MEAN CELL VOLUME 96.2 fl (80.0-94.0); MEAN CORPUSCULAR HEMOGLOBIN 31.7 pg (27.0-31.0); MEAN CORPUSCULAR HGB CONC 32.9 g/dL (33.0-37.0); RBC 2.6 Mil/uL (4.40-5.90); WHITE BLOOD COUNT 4.6 K/uL (4.8-10.8)
[2018-10-18 07:22] LABS: ALB/GLOB RATIO 0.6 (1.0-2.1); ALBUMIN 2.1 g/dL (3.5-5.0); CALCIUM 8.4 mg/dL (8.4-10.2)
--- NOTE | 2018-10-18 08:14 | PN ---
DATE: 10/17/2018 SUBJECTIVE: The patient seen and examined. Interim events noted. The patient remains in progressive care unit. Sleeping, arousable but does not want to get into conversation at this time. Denies any specific complaint. No specific issue reported by nursing staff. Consults noted and appreciated. PHYSICAL EXAMINATION: GENERAL: The patient is in no acute distress. VITAL SIGNS: Stable. HEART: S1 and S2, normal and regular. LUNGS: Good bilateral air exchange. ABDOMEN: Soft, nontender. EXTREMITIES: No edema, no calf swelling, no tenderness. No acute ischemia. CENTRAL NERVOUS SYSTEM: Exam is essentially unchanged. DIAGNOSTIC DATA: Available diagnostic data reviewed. ASSESSMENT AND PLAN: Overall, the patient's general medical condition is stable. Plan as ordered. Hans Tineo MD
--- NOTE | 2018-10-18 08:50 | CP.PCM.PN ---
<Sultan Shari - Last Filed: 10/18/18 08:48> Subjective - Date & Time of Evaluation Date of Evaluation: 10/18/18 Time of Evaluation: 08:20 - Subjective Subjective: Patient seen and examined this morning with Dr. Tineo Lying comfortably in bed, Not in acute distress. No acute overnight event Has intermittent hematuria but denies any hematuria this morning. Denies any abdominal pain, nausea, vomiting or diarrhea CBC this morning shows H&H of 8.2/25.0 Objective - Vital Signs/Intake and Output Vital Signs (last 24 hours): Temp Pulse Resp BP Pulse Ox 97.7 F 83 20 104/65 99 10/18/18 08:00 10/18/18 08:00 10/18/18 08:00 10/18/18 08:00 10/18/18 08:00 - Medications Medications: Current Medications Bacitracin (Bacitracin) 1 ea TOP DAILY [facility] Last Admin: 10/17/18 09:43 Dose: 1 ea Lactic Acid (Lac-Hydrin 12% Lotion (225 G)) 1 applic TOP BID [facility] Lactobacillus Acidophilus (Bacid Acidophilus) 1 cap PO BID [facility] Last Admin: 10/17/18 17:16 Dose: 1 cap Losartan Potassium (Cozaar) 50 mg PO DAILY [facility] Last Admin: 09/27/18 15:20 Dose: Not Given Metoprolol Tartrate (Lopressor) 50 mg PO Q12 [facility] Last Admin: 10/17/18 21:14 Dose: 50 mg - Labs Labs: 10/18/18 07:10 10/18/18 05:30 PT 11.9 Seconds (9.8-13.1) 09/24/18 09:45 INR 1.0 09/24/18 09:45 APTT 26.7 Seconds (25.6-37.1) 09/24/18 09:45 - Constitutional Appears: No Acute Distress - Head Exam Head Exam: NORMAL INSPECTION - Eye Exam Eye Exam: Normal appearance - ENT Exam ENT Exam: Mucous Membranes Moist - Neck Exam Neck Exam: Normal Inspection - Respiratory Exam Respiratory Exam: Clear to Ausculation Bilateral, NORMAL BREATHING PATTERN. absent: Rhonchi, Wheezes - Cardiovascular Exam Cardiovascular Exam: Irregular Rhythm, +S1, +S2 - GI/Abdominal Exam GI & Abdominal Exam: Soft, Normal Bowel Sounds. absent: Tenderness - Extremities Exam Extremities Exam: absent: Calf Tenderness - Neurological Exam Neurological Exam: Alert, Awake - Psychiatric Exam Psychiatric exam: Normal Affect - Skin Skin Exam: Normal Color Assessment and Plan - Assessment and Plan (Free Text) Assessment: A/P: 77 YO Male with PMHx of HTN, Atrial fibrillation, CHF (EF: 60%) and ESRD is admitted for anemia, ESRD, hematuria and a fib. Psychiatry was consulted and patient does not have medical decision making capacity. Awaiting legal guardianship for safe disposition. Major Neurocognitive disorder - Psych consult --Dr. Morales, rec appreciated. - Patient does not have medical decision making capacity - Awaiting legal guardianship for safe disposition A fib w/ RVR -Cardiology on consulted; recs appreciated, will notify if anything changes -C/w Metoprolol T 50mg PO Q12H UTI-ESBL/Hematuria (gross) -ID consulted; recs appreciated -urology consulted; hematuria follow up recs -repeat Ucx is negative on 10/06/18. Not getting his IV Abx since 10/04/18 ) -Patient has no IV, Has HD catheter ESRD -acute on chronic -2/2 to interstitial renal disease, granulomatosis polyangiitis -Nephrology on board -s/p tunnel cath 09/26 and removed. -No HD for now as per Nephro -GFR and electrolytes stable Anemia -acute on chronic -likely 2/2 to ESRD, hematuria, malignancy -s/p 2 units of PRBC on 09/29, on epo per nephro (total 4pRBCs) -H&H 8.2/25.0 today -continue to monitor C. diff pos -Per ID, started on PO vanc -c/w probiotic -No diarrhea HTN/CHF -chronic, controlled -c/w home meds DVT proplx: SCD for now Plan discussed with Dr. Noman Mccarthy, pgy-2 <Hans Tineo - Last Filed: 10/20/18 20:29> Objective - Vital Signs/Intake and Output Vital Signs (last 24 hours): Temp Pulse Resp BP Pulse Ox 97.9 F 98 H 17 119/80 98 10/20/18 19:38 10/20/18 19:38 10/20/18 19:38 10/20/18 19:38 10/20/18 19:38 Intake and Output: 10/20/18 10/20/18 11:59 23:59 Intake Total 1200 Balance 1200 - Medications Medications: Current Medications Bacitracin (Bacitracin) 1 ea TOP DAILY [facility] Last Admin: 10/20/18 08:39 Dose: 1 ea Epoetin Charles (Procrit) 8,000 unit SC TTS [facility] Last Admin: 10/20/18 12:40 Dose: 8,000 unit Lactic Acid (Lac-Hydrin 12% Lotion (225 G)) 1 applic TOP BID [facility] Last Admin: 10/20/18 16:05 Dose: 1 applic Lactobacillus Acidophilus (Bacid Acidophilus) 1 cap PO BID [facility] Last Admin: 10/20/18 16:05 Dose: 1 cap Losartan Potassium (Cozaar) 50 mg PO DAILY [facility] Last Admin: 09/27/18 15:20 Dose: Not Given Metoprolol Tartrate (Lopressor) 50 mg PO Q12 [facility] Last Admin: 10/20/18 08:39 Dose: 50 mg - Labs Labs: 10/20/18 05:10 10/20/18 05:10 PT 11.9 Seconds (9.8-13.1) 09/24/18 09:45 INR 1.0 09/24/18 09:45 APTT 26.7 Seconds (25.6-37.1) 09/24/18 09:45 Assessment and Plan - Assessment and Plan (Free Text) Assessment: Patient was personally seen and examined by me in rounds with residents. Available labs and diagnostic data reviewed. Case, Patient's condition and management plan discussed with residents in rounds. Agree with resident's progress note. Plan: As ordered.
[2018-10-18] MEDS: Lactobacillus Acidophilus 500 MU Cap PO SCH ×2 (09:11→16:59)
[2018-10-18] MEDS: Bacitracin 500 Units/gm Oint Foilpak UD TOP SCH (09:15)
--- NOTE | 2018-10-18 10:51 | CP.PCM.PN ---
Subjective - Date & Time of Evaluation Date of Evaluation: 10/18/18 Time of Evaluation: 08:00 - Subjective Subjective: afebrile alert NAD denies fever / diarrhea off antibiiotics Objective - Vital Signs/Intake and Output Vital Signs (last 24 hours): Temp Pulse Resp BP Pulse Ox 97.7 F 83 20 104/65 99 10/18/18 08:00 10/18/18 09:08 10/18/18 08:00 10/18/18 09:08 10/18/18 08:00 - Medications Medications: Current Medications Bacitracin (Bacitracin) 1 ea TOP DAILY [facility] Last Admin: 10/18/18 09:15 Dose: Not Given Lactic Acid (Lac-Hydrin 12% Lotion (225 G)) 1 applic TOP BID [facility] Last Admin: 10/18/18 09:16 Dose: 1 applic Lactobacillus Acidophilus (Bacid Acidophilus) 1 cap PO BID [facility] Last Admin: 10/18/18 09:11 Dose: 1 cap Losartan Potassium (Cozaar) 50 mg PO DAILY [facility] Last Admin: 09/27/18 15:20 Dose: Not Given Metoprolol Tartrate (Lopressor) 50 mg PO Q12 [facility] Last Admin: 10/18/18 09:08 Dose: Not Given - Labs Labs: 10/18/18 07:10 10/18/18 05:30 PT 11.9 Seconds (9.8-13.1) 09/24/18 09:45 INR 1.0 09/24/18 09:45 APTT 26.7 Seconds (25.6-37.1) 09/24/18 09:45 - Constitutional Appears: Non-toxic, Confused, Cachectic, Chronically Ill - Head Exam Head Exam: NORMOCEPHALIC - Eye Exam Eye Exam: absent: Scleral icterus - ENT Exam ENT Exam: Mucous Membranes Dry - Neck Exam Neck Exam: absent: Lymphadenopathy - Respiratory Exam Respiratory Exam: Decreased Breath Sounds - Cardiovascular Exam Cardiovascular Exam: REGULAR RHYTHM, +S1, +S2 - GI/Abdominal Exam GI & Abdominal Exam: Distended, Soft. absent: Tenderness - Rectal Exam Rectal Exam: Deferred - Exam Exam: NORMAL INSPECTION - Extremities Exam Extremities Exam: absent: Pedal Edema - Back Exam Back Exam: absent: CVA tenderness (L), CVA tenderness (R) - Neurological Exam Neurological Exam: Alert, Awake, CN II-XII Intact - Psychiatric Exam Psychiatric exam: Depressed - Skin Skin Exam: Dry Assessment and Plan (1) Atrial fibrillation with RVR Status: Acute (2) Anemia Status: Chronic (3) ESRD (end stage renal disease) Status: Chronic (4) Acute on chronic renal failure Status: Acute (5) Hepatitis C Status: Acute - Assessment and Plan (Free Text) Assessment: s/p cdiff colitis- resolved s/p ESBL UTI observe off antibiotics consider re-eval
--- NOTE | 2018-10-18 12:33 | CP.PCM.PN ---
Subjective - Date & Time of Evaluation Date of Evaluation: 10/18/18 Time of Evaluation: 12:00 - Subjective Subjective: patient feeling much better no shortness of breath no difficulty breathing. Mentally no changes. Vital signs stable. Objective - Vital Signs/Intake and Output Vital Signs (last 24 hours): Temp Pulse Resp BP Pulse Ox 97.2 F L 79 20 119/75 98 10/18/18 12:14 10/18/18 12:14 10/18/18 12:14 10/18/18 12:14 10/18/18 12:14 - Medications Medications: Current Medications Bacitracin (Bacitracin) 1 ea TOP DAILY [facility] Last Admin: 10/18/18 09:15 Dose: Not Given Lactic Acid (Lac-Hydrin 12% Lotion (225 G)) 1 applic TOP BID [facility] Last Admin: 10/18/18 09:16 Dose: 1 applic Lactobacillus Acidophilus (Bacid Acidophilus) 1 cap PO BID [facility] Last Admin: 10/18/18 09:11 Dose: 1 cap Losartan Potassium (Cozaar) 50 mg PO DAILY [facility] Last Admin: 09/27/18 15:20 Dose: Not Given Metoprolol Tartrate (Lopressor) 50 mg PO Q12 [facility] Last Admin: 10/18/18 09:08 Dose: Not Given - Labs Labs: 10/18/18 07:10 10/18/18 05:30 PT 11.9 Seconds (9.8-13.1) 09/24/18 09:45 INR 1.0 09/24/18 09:45 APTT 26.7 Seconds (25.6-37.1) 09/24/18 09:45 - Eye Exam Eye Exam: Conjunctival injection - ENT Exam ENT Exam: Mucous Membranes Moist - Respiratory Exam Respiratory Exam: NORMAL BREATHING PATTERN - Cardiovascular Exam Cardiovascular Exam: absent: Diastolic murmur, Gallop, Rubs - GI/Abdominal Exam GI & Abdominal Exam: Soft, Normal Bowel Sounds - Extremities Exam Extremities Exam: absent: Calf Tenderness - Back Exam Back Exam: absent: CVA tenderness (L), CVA tenderness (R) - Neurological Exam Neurological Exam: Altered - Skin Skin Exam: absent: Cyanosis Assessment and Plan (1) Atrial fibrillation with RVR Status: Acute (2) ESRD (end stage renal disease) Assessment & Plan: Chronic kidney disease stage IV Patient OFF dialysis Atrial fibrillation with controlled heart rate Overall patient improving and doing much better Recommendation Patient is stable and waiting for social issue to be completed. Kidney function stable. Status: Chronic (3) Anemia Status: Chronic
--- NOTE | 2018-10-19 08:00 | CP.PCM.PN ---
<Sultan Shari - Last Filed: 10/19/18 09:08> Subjective - Date & Time of Evaluation Date of Evaluation: 10/19/18 Time of Evaluation: 08:00 - Subjective Subjective: Patient seen and examined this morning Alert and awake, Not in acute distress. Remains afebrile with stable vitals. At baseline mental status No acute overnight event Denies any acute complaints Objective - Vital Signs/Intake and Output Vital Signs (last 24 hours): Temp Pulse Resp BP Pulse Ox 97.5 F L 98 H 18 122/75 97 10/19/18 04:50 10/19/18 04:50 10/19/18 04:50 10/19/18 04:50 10/19/18 04:50 - Medications Medications: Current Medications Bacitracin (Bacitracin) 1 ea TOP DAILY [facility] Last Admin: 10/18/18 09:15 Dose: Not Given Lactic Acid (Lac-Hydrin 12% Lotion (225 G)) 1 applic TOP BID [facility] Last Admin: 10/18/18 16:59 Dose: 1 applic Lactobacillus Acidophilus (Bacid Acidophilus) 1 cap PO BID [facility] Last Admin: 10/18/18 16:59 Dose: Not Given Losartan Potassium (Cozaar) 50 mg PO DAILY [facility] Last Admin: 09/27/18 15:20 Dose: Not Given Metoprolol Tartrate (Lopressor) 50 mg PO Q12 [facility] Last Admin: 10/18/18 20:53 Dose: 50 mg - Labs Labs: 10/18/18 07:10 10/18/18 05:30 PT 11.9 Seconds (9.8-13.1) 09/24/18 09:45 INR 1.0 09/24/18 09:45 APTT 26.7 Seconds (25.6-37.1) 09/24/18 09:45 - Constitutional Appears: No Acute Distress - Head Exam Head Exam: NORMAL INSPECTION - Eye Exam Eye Exam: Normal appearance - ENT Exam ENT Exam: Mucous Membranes Moist - Neck Exam Neck Exam: Normal Inspection - Respiratory Exam Respiratory Exam: Clear to Ausculation Bilateral, NORMAL BREATHING PATTERN. absent: Rhonchi, Wheezes - Cardiovascular Exam Cardiovascular Exam: Irregular Rhythm, +S1, +S2 - GI/Abdominal Exam GI & Abdominal Exam: Soft, Normal Bowel Sounds. absent: Tenderness - Extremities Exam Extremities Exam: Normal Inspection. absent: Calf Tenderness - Neurological Exam Neurological Exam: Alert, Awake - Skin Skin Exam: Normal Color Assessment and Plan - Assessment and Plan (Free Text) Assessment: A/P: 77 year old Male with PMHx of HTN, Atrial fibrillation, CHF (EF: 60%) and ESRD is admitted for anemia, ESRD, hematuria and a-fib. Psychiatry was consulted and patient does not have medical decision making capacity. Awaiting legal guardianship for safe disposition. Major Neurocognitive disorder - Psych consult --Dr. Morales, rec appreciated. - Patient does not have medical decision making capacity - Awaiting legal guardianship for safe disposition A fib w/ RVR -Cardiology on consulted; recs appreciated, will notify if anything changes -C/w Metoprolol Tartrate 50mg PO Q12H UTI-ESBL/Hematuria (gross) -ID consulted; recs appreciated -urology consulted; hematuria follow up recs -repeat Ucx is negative on 10/06/18. 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 -No HD for now as per Nephro -GFR and electrolytes stable Anemia -acute on chronic -likely 22 to ESRD, hematuria, malignancy -s/p 2 units of PRBC on 09/29, on epo per nephro (total 4pRBCs) -H&H 8.2/25.0 on 10/18/18 -continue to monitor C. diff pos -Resolved -completed a course of PO vancomycin -c/w probiotic -No diarrhea HTN/CHF -chronic, controlled -c/w home meds DVT proplx: SCD for now Plan discussed with Dr. Noman Mccarthy, pgy-2 <Hans Tineo - Last Filed: 10/20/18 20:30> Objective - Vital Signs/Intake and Output Vital Signs (last 24 hours): Temp Pulse Resp BP Pulse Ox 97.9 F 98 H 17 119/80 98 10/20/18 19:38 10/20/18 19:38 10/20/18 19:38 10/20/18 19:38 10/20/18 19:38 Intake and Output: 10/20/18 10/20/18 11:59 23:59 Intake Total 1200 Balance 1200 - Medications Medications: Current Medications Bacitracin (Bacitracin) 1 ea TOP DAILY [facility] Last Admin: 10/20/18 08:39 Dose: 1 ea Epoetin Charles (Procrit) 8,000 unit SC TTS [facility] Last Admin: 10/20/18 12:40 Dose: 8,000 unit Lactic Acid (Lac-Hydrin 12% Lotion (225 G)) 1 applic TOP BID [facility] Last Admin: 10/20/18 16:05 Dose: 1 applic Lactobacillus Acidophilus (Bacid Acidophilus) 1 cap PO BID [facility] Last Admin: 10/20/18 16:05 Dose: 1 cap Losartan Potassium (Cozaar) 50 mg PO DAILY [facility] Last Admin: 09/27/18 15:20 Dose: Not Given Metoprolol Tartrate (Lopressor) 50 mg PO Q12 [facility] Last Admin: 10/20/18 08:39 Dose: 50 mg - Labs Labs: 10/20/18 05:10 10/20/18 05:10 PT 11.9 Seconds (9.8-13.1) 09/24/18 09:45 INR 1.0 09/24/18 09:45 APTT 26.7 Seconds (25.6-37.1) 09/24/18 09:45 Assessment and Plan - Assessment and Plan (Free Text) Assessment: Patient was personally seen and examined by me in rounds with residents. Available labs and diagnostic data reviewed. Case, Patient's condition and management plan discussed with residents in rounds. Agree with resident's progress note. Plan: As ordered.
[2018-10-19] MEDS: Bacitracin 500 Units/gm Oint Foilpak UD TOP SCH (09:41)
[2018-10-19] MEDS: Lactobacillus Acidophilus 500 MU Cap PO SCH ×2 (09:41→16:27)
--- NOTE | 2018-10-19 11:32 | CP.PCM.PN ---
Subjective - Date & Time of Evaluation Date of Evaluation: 10/19/18 Time of Evaluation: 11:31 - Subjective Subjective: Patient is stable Vital signs stable Objective - Vital Signs/Intake and Output Vital Signs (last 24 hours): Temp Pulse Resp BP Pulse Ox 97.4 F L 97 H 20 121/84 99 10/19/18 08:00 10/19/18 09:42 10/19/18 08:00 10/19/18 09:42 10/19/18 08:00 - Medications Medications: Current Medications Bacitracin (Bacitracin) 1 ea TOP DAILY [facility] Last Admin: 10/19/18 09:41 Dose: 1 ea Lactic Acid (Lac-Hydrin 12% Lotion (225 G)) 1 applic TOP BID [facility] Last Admin: 10/19/18 09:41 Dose: 1 applic Lactobacillus Acidophilus (Bacid Acidophilus) 1 cap PO BID [facility] Last Admin: 10/19/18 09:41 Dose: 1 cap Losartan Potassium (Cozaar) 50 mg PO DAILY [facility] Last Admin: 09/27/18 15:20 Dose: Not Given Metoprolol Tartrate (Lopressor) 50 mg PO Q12 [facility] Last Admin: 10/19/18 09:42 Dose: 50 mg - Labs Labs: 10/18/18 07:10 10/18/18 05:30 PT 11.9 Seconds (9.8-13.1) 09/24/18 09:45 INR 1.0 09/24/18 09:45 APTT 26.7 Seconds (25.6-37.1) 09/24/18 09:45 - Constitutional Appears: No Acute Distress - Eye Exam Eye Exam: Conjunctival injection - ENT Exam ENT Exam: absent: Mucous Membranes Moist - Respiratory Exam Respiratory Exam: absent: Chest Wall Tenderness - Extremities Exam Extremities Exam: absent: Calf Tenderness - Back Exam Back Exam: absent: CVA tenderness (L), CVA tenderness (R) - Neurological Exam Neurological Exam: Altered - Skin Skin Exam: absent: Cyanosis Assessment and Plan (1) Atrial fibrillation with RVR Status: Acute (2) ESRD (end stage renal disease) Status: Chronic (3) Anemia Status: Chronic (4) Chronic kidney disease, stage IV (severe) Assessment & Plan: Chronic kidney disease stage IV Patient OFF dialysis Atrial fibrillation with controlled heart rate Overall patient improving and doing much better Recommendation 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
[2018-10-20 05:24] LABS: HEMOGLOBIN 7.6 g/dL (12.0-18.0); MEAN CELL VOLUME 96.2 fl (80.0-94.0); MEAN CORPUSCULAR HEMOGLOBIN 31.5 pg (27.0-31.0); MEAN CORPUSCULAR HGB CONC 32.8 g/dL (33.0-37.0); RBC 2.41 Mil/uL (4.40-5.90); RED CELL DISTRIBUTION WIDTH 18.3 % (11.5-14.5); WHITE BLOOD COUNT 5.3 K/uL (4.8-10.8)
[2018-10-20 05:41] LABS: CALCIUM 8.3 mg/dL (8.4-10.2)
[2018-10-20] MEDS: Bacitracin 500 Units/gm Oint Foilpak UD TOP SCH (08:39)
[2018-10-20] MEDS: Lactobacillus Acidophilus 500 MU Cap PO SCH ×2 (08:46→16:05)
[2018-10-20] MEDS ORDERED: Epoetin Alfa 4000 UNIT/ML Inj SC SCH (09:00)
--- NOTE | 2018-10-20 09:16 | CP.PCM.PN ---
<Sultan Shari - Last Filed: 10/20/18 09:55> Subjective - Date & Time of Evaluation Date of Evaluation: 10/20/18 Time of Evaluation: 08:15 - Subjective Subjective: Patient seen and examined this AM. No acute overnight event Alert, awake and lying comfortably in bed, Not in acute distress. Remains afebrile with stable vitals. At baseline mental status Denies any acute complaints. Denies any hematuria, nurse notes indicates pink tinged urine. cbc shows H&H 7.6/23.2 this morning. Objective - Vital Signs/Intake and Output Vital Signs (last 24 hours): Temp Pulse Resp BP Pulse Ox 97.7 F 97 H 18 124/81 100 10/20/18 08:01 10/20/18 08:39 10/20/18 08:01 10/20/18 08:39 10/20/18 08:01 - Medications Medications: Current Medications Bacitracin (Bacitracin) 1 ea TOP DAILY [facility] Last Admin: 10/20/18 08:39 Dose: 1 ea Lactic Acid (Lac-Hydrin 12% Lotion (225 G)) 1 applic TOP BID [facility] Last Admin: 10/20/18 08:43 Dose: 1 applic Lactobacillus Acidophilus (Bacid Acidophilus) 1 cap PO BID [facility] Last Admin: 10/20/18 08:46 Dose: 1 cap Losartan Potassium (Cozaar) 50 mg PO DAILY [facility] Last Admin: 09/27/18 15:20 Dose: Not Given Metoprolol Tartrate (Lopressor) 50 mg PO Q12 [facility] Last Admin: 10/20/18 08:39 Dose: 50 mg - Labs Labs: 10/20/18 05:10 10/20/18 05:10 PT 11.9 Seconds (9.8-13.1) 09/24/18 09:45 INR 1.0 09/24/18 09:45 APTT 26.7 Seconds (25.6-37.1) 09/24/18 09:45 - Constitutional Appears: No Acute Distress - Head Exam Head Exam: NORMAL INSPECTION - Eye Exam Eye Exam: Normal appearance - ENT Exam ENT Exam: Mucous Membranes Moist - Neck Exam Neck Exam: Normal Inspection - Respiratory Exam Respiratory Exam: Clear to Ausculation Bilateral, NORMAL BREATHING PATTERN. absent: Rhonchi, Wheezes - Cardiovascular Exam Cardiovascular Exam: Irregular Rhythm, +S1, +S2 - GI/Abdominal Exam GI & Abdominal Exam: Soft, Normal Bowel Sounds. absent: Tenderness - Neurological Exam Neurological Exam: Alert, Awake - Skin Skin Exam: Normal Color Assessment and Plan - Assessment and Plan (Free Text) Assessment: A/P: 77 year old Male with PMHx of HTN, Atrial fibrillation, CHF (EF: 60%) and ESRD is admitted for anemia, ESRD, hematuria and a-fib. Psychiatry was consulted and patient does not have medical decision making capacity. Awaiting legal guardianship for safe disposition. CBC shows H&H 7.6/23.2 today. Possible cystoscopy on 10/24/[address] Jeffries. Major Neurocognitive disorder - Psych consult --Dr. Morales, rec appreciated. - Patient does not have medical decision making capacity - Awaiting legal guardianship for safe disposition A fib w/ RVR -Cardiology on consulted; recs appreciated, will notify if anything changes -C/w Metoprolol Tartrate 50mg PO Q12H UTI-ESBL/Hematuria (gross) -ID consulted; recs appreciated -urology consulted; hematuria follow up recs -Possible cystoscopy on 11/21/[address] Jeffries -repeat Ucx is negative on 10/06/18. Not getting his IV Abx since 10/04/18 ) -Patient has no IV, Has HD catheter ESRD -acute on chronic -2/2 to interstitial renal disease, granulomatosis polyangiitis -Nephrology on board -s/p tunnel cath 09/26 and removed. -No HD for now as per Nephro -GFR and electrolytes stable Anemia -acute on chronic -likely 2/2 to ESRD, hematuria, malignancy -s/p 2 units of PRBC on 09/29, on epo per nephro (total 4pRBCs) -H&H 7.6/23.2 today, will transfused if Hb below 7 -Possible cystoscopy on 11/21/[address] Jeffries -continue to monitor C. diff pos -Resolved -completed a course of PO vancomycin -c/w probiotic -No diarrhea HTN/CHF -chronic, controlled -c/w home meds DVT proplx: SCD for now Plan discussed with Dr. Noman Mccarthy, pgy-2 <Hans Tineo - Last Filed: 10/20/18 20:31> Objective - Vital Signs/Intake and Output Vital Signs (last 24 hours): Temp Pulse Resp BP Pulse Ox 97.9 F 98 H 17 119/80 98 10/20/18 19:38 10/20/18 19:38 10/20/18 19:38 10/20/18 19:38 10/20/18 19:38 Intake and Output: 10/20/18 10/20/18 11:59 23:59 Intake Total 1200 Balance 1200 - Medications Medications: Current Medications Bacitracin (Bacitracin) 1 ea TOP DAILY [facility] Last Admin: 10/20/18 08:39 Dose: 1 ea Epoetin Charles (Procrit) 8,000 unit SC TTS [facility] Last Admin: 10/20/18 12:40 Dose: 8,000 unit Lactic Acid (Lac-Hydrin 12% Lotion (225 G)) 1 applic TOP BID [facility] Last Admin: 10/20/18 16:05 Dose: 1 applic Lactobacillus Acidophilus (Bacid Acidophilus) 1 cap PO BID [facility] Last Admin: 10/20/18 16:05 Dose: 1 cap Losartan Potassium (Cozaar) 50 mg PO DAILY [facility] Last Admin: 09/27/18 15:20 Dose: Not Given Metoprolol Tartrate (Lopressor) 50 mg PO Q12 [facility] Last Admin: 10/20/18 08:39 Dose: 50 mg - Labs Labs: 10/20/18 05:10 10/20/18 05:10 PT 11.9 Seconds (9.8-13.1) 09/24/18 09:45 INR 1.0 09/24/18 09:45 APTT 26.7 Seconds (25.6-37.1) 09/24/18 09:45 Assessment and Plan - Assessment and Plan (Free Text) Assessment: Patient was personally seen and examined by me in rounds with residents. Available labs and diagnostic data reviewed. Case, Patient's condition and management plan discussed with residents in rounds. Agree with resident's progress note. Plan: As ordered.
--- NOTE | 2018-10-20 10:04 | CP.PCM.PN ---
Subjective - Date & Time of Evaluation Date of Evaluation: 10/20/18 Time of Evaluation: 10:03 - Subjective Subjective: Clinically patient and change Vital signs stable Objective - Vital Signs/Intake and Output Vital Signs (last 24 hours): Temp Pulse Resp BP Pulse Ox 97.7 F 97 H 18 124/81 100 10/20/18 08:01 10/20/18 08:39 10/20/18 08:01 10/20/18 08:39 10/20/18 08:01 - Medications Medications: Current Medications Bacitracin (Bacitracin) 1 ea TOP DAILY [facility] Last Admin: 10/20/18 08:39 Dose: 1 ea Epoetin Charles (Procrit) 8,000 unit SC TTS [facility] Lactic Acid (Lac-Hydrin 12% Lotion (225 G)) 1 applic TOP BID [facility] Last Admin: 10/20/18 08:43 Dose: 1 applic Lactobacillus Acidophilus (Bacid Acidophilus) 1 cap PO BID [facility] Last Admin: 10/20/18 08:46 Dose: 1 cap Losartan Potassium (Cozaar) 50 mg PO DAILY [facility] Last Admin: 09/27/18 15:20 Dose: Not Given Metoprolol Tartrate (Lopressor) 50 mg PO Q12 [facility] Last Admin: 10/20/18 08:39 Dose: 50 mg - Labs Labs: 10/20/18 05:10 10/20/18 05:10 PT 11.9 Seconds (9.8-13.1) 09/24/18 09:45 INR 1.0 09/24/18 09:45 APTT 26.7 Seconds (25.6-37.1) 09/24/18 09:45 - Constitutional Appears: No Acute Distress - Eye Exam Eye Exam: Conjunctival injection - ENT Exam ENT Exam: Mucous Membranes Moist - Respiratory Exam Respiratory Exam: NORMAL BREATHING PATTERN. absent: Chest Wall Tenderness - Cardiovascular Exam Cardiovascular Exam: Irregular Rhythm. absent: Gallop, Rubs - GI/Abdominal Exam GI & Abdominal Exam: Soft, Normal Bowel Sounds - Extremities Exam Extremities Exam: absent: Calf Tenderness - Back Exam Back Exam: absent: CVA tenderness (L), CVA tenderness (R) - Neurological Exam Neurological Exam: Awake - Skin Skin Exam: absent: Cyanosis Assessment and Plan (1) Atrial fibrillation with RVR Status: Acute (2) ESRD (end stage renal disease) Assessment & Plan: Assessment & Plan: Chronic kidney disease stage IV Patient OFF dialysis Anemia Atrial fibrillation with controlled heart rate Overall patient improving and doing much better Recommendation Continue monitoring Hemoglobin dropping patient may need at least 1 unit of transfusion Add EPO Status: Chronic (3) Anemia Status: Chronic (4) Chronic kidney disease, stage IV (severe) Status: Acute
--- NOTE | 2018-10-21 08:45 | CP.PCM.PN ---
<Sultan Shari - Last Filed: 10/21/18 10:27> Subjective - Date & Time of Evaluation Date of Evaluation: 10/21/18 Time of Evaluation: 08:15 - Subjective Subjective: Patient seen and examined with Dr. Tineo Overnight events reviewed Alert, awake and lying comfortably in bed, Not in acute distress. Remains afebrile with stable vitals. At baseline mental status Denies any acute complaints. Declined lab tests this morning. Objective - Vital Signs/Intake and Output Vital Signs (last 24 hours): Temp Pulse Resp BP Pulse Ox 98.1 F 99 H 20 105/67 99 10/21/18 08:31 10/21/18 08:31 10/21/18 08:31 10/21/18 08:31 10/21/18 08:31 Intake and Output: 10/21/18 10/21/18 06:59 18:59 Intake Total 1200 Balance 1200 - Medications Medications: Current Medications Bacitracin (Bacitracin) 1 ea TOP DAILY [facility] Last Admin: 10/20/18 08:39 Dose: 1 ea Epoetin Charles (Procrit) 8,000 unit SC TTS [facility] Last Admin: 10/20/18 12:40 Dose: 8,000 unit Lactic Acid (Lac-Hydrin 12% Lotion (225 G)) 1 applic TOP BID [facility] Last Admin: 10/20/18 16:05 Dose: 1 applic Lactobacillus Acidophilus (Bacid Acidophilus) 1 cap PO BID [facility] Last Admin: 10/20/18 16:05 Dose: 1 cap Losartan Potassium (Cozaar) 50 mg PO DAILY [facility] Last Admin: 09/27/18 15:20 Dose: Not Given Metoprolol Tartrate (Lopressor) 50 mg PO Q12 [facility] Last Admin: 10/20/18 20:41 Dose: 50 mg - Labs Labs: 10/20/18 05:10 10/20/18 05:10 PT 11.9 Seconds (9.8-13.1) 09/24/18 09:45 INR 1.0 09/24/18 09:45 APTT 26.7 Seconds (25.6-37.1) 09/24/18 09:45 - Additional Findings Additional findings: - Constitutional Appears: No Acute Distress - Head Exam Head Exam: NORMAL INSPECTION - Eye Exam Eye Exam: Normal appearance - ENT Exam ENT Exam: Mucous Membranes Moist - Neck Exam Neck Exam: Normal Inspection - Respiratory Exam Respiratory Exam: Clear to Ausculation Bilateral, NORMAL BREATHING PATTERN. absent: Rhonchi, Wheezes - Cardiovascular Exam Cardiovascular Exam: Irregular Rhythm, +S1, +S2 - GI/Abdominal Exam GI & Abdominal Exam: Soft, Normal Bowel Sounds. absent: Tenderness - Neurological Exam Neurological Exam: Alert, Awake - Skin Skin Exam: Normal Color Assessment and Plan - Assessment and Plan (Free Text) Assessment: A/P: 77 year old Male with PMHx of HTN, Atrial fibrillation, CHF (EF: 60%) and ESRD is admitted for anemia, ESRD, hematuria and a-fib. Psychiatry was consulted and patient does not have medical decision making capacity. Awaiting legal guardianship for safe disposition. CBC shows H&H 7.6/23.2 yesterday. Possible cystoscopy on 10/24/[address] Jeffries. Major Neurocognitive disorder - Psych consult --Dr. Morales, rec appreciated. - Patient does not have medical decision making capacity - Awaiting legal guardianship for safe disposition A fib w/ RVR -Cardiology on consulted; recs appreciated, will notify if anything changes -C/w Metoprolol Tartrate 50mg PO Q12H UTI-ESBL/Hematuria (gross) -ID consulted; recs appreciated -urology consulted; hematuria follow up recs -Possible cystoscopy on 11/21/[address] Jeffries -repeat Ucx is negative on 10/06/18. Not getting his IV Abx since 10/04/18 ) -Patient has no IV, Has HD catheter ESRD -acute on chronic -2/2 to interstitial renal disease, granulomatosis polyangiitis -Nephrology on board -s/p tunnel cath 09/26 and removed. -No HD for now as per Nephro -GFR and electrolytes stable Anemia -acute on chronic -likely 2/2 to ESRD, hematuria, malignancy -s/p 2 units of PRBC on 09/29, on epo per nephro (total 4pRBCs) -H&H 7.6/23.2 yesterday, will transfused if Hb below 7 -Possible cystoscopy on 11/21/[address] Jeffries -continue to monitor C. diff pos -Resolved -completed a course of PO vancomycin -c/w probiotic -No diarrhea HTN/CHF -chronic, controlled -c/w home meds DVT proplx: SCD for now Plan discussed with Dr. Noman Mccarthy, pgy-2 <Hans Tineo - Last Filed: 10/25/18 12:18> Objective - Vital Signs/Intake and Output Vital Signs (last 24 hours): Temp Pulse Resp BP Pulse Ox 97.8 F 94 H 19 120/76 95 10/25/18 08:12 10/25/18 09:28 10/25/18 08:12 10/25/18 09:28 10/25/18 08:12 Intake and Output: 10/25/18 10/25/18 11:59 23:59 Intake Total 3000 Output Total 150 Balance 2850 - Medications Medications: Current Medications Bacitracin (Bacitracin) 1 ea TOP DAILY [facility] Last Admin: 10/25/18 08:12 Dose: 1 ea Epoetin Charles (Procrit) 10,000 unit SC TTS [facility] Last Admin: 10/25/18 08:08 Dose: 10,000 unit Lactic Acid (Lac-Hydrin 12% Lotion (225 G)) 1 applic TOP BID [facility] Last Admin: 10/25/18 08:11 Dose: 1 applic Losartan Potassium (Cozaar) 50 mg PO DAILY [facility] Last Admin: 09/27/18 15:20 Dose: Not Given Metoprolol Tartrate (Lopressor) 50 mg PO Q12 [facility] Last Admin: 10/25/18 09:28 Dose: 50 mg - Labs Labs: 10/25/18 10:18 10/25/18 10:18 PT 12.9 Seconds (9.8-13.1) 10/22/18 15:51 INR 1.1 10/22/18 15:51 APTT 31.5 Seconds (25.6-37.1) 10/22/18 15:51 Assessment and Plan - Assessment and Plan (Free Text) Assessment: Patient was personally seen and examined by me in rounds with residents. Available labs and diagnostic data reviewed. Case, Patient's condition and management plan discussed with residents in rounds. Agree with resident's progress note. Plan: As ordered.
[2018-10-21 11:42] LABS: HEMOGLOBIN 7.3 g/dL (12.0-18.0); MEAN CELL VOLUME 95.5 fl (80.0-94.0); MEAN CORPUSCULAR HEMOGLOBIN 31.7 pg (27.0-31.0); MEAN CORPUSCULAR HGB CONC 33.1 g/dL (33.0-37.0); RBC 2.3 Mil/uL (4.40-5.90); RED CELL DISTRIBUTION WIDTH 18.6 % (11.5-14.5); WHITE BLOOD COUNT 4.6 K/uL (4.8-10.8)
[2018-10-21 11:48] LABS: INR 1.1; PROTHROMBIN TIME 12.9 Seconds (9.8-13.1)
[2018-10-21 11:51] LABS: PARTIAL THROMBOPLASTIN TIME 30.4 Seconds (25.6-37.1)
[2018-10-21 12:03] LABS: ALB/GLOB RATIO 0.6 (1.0-2.1); ALBUMIN 1.9 g/dL (3.5-5.0); CALCIUM 8.2 mg/dL (8.4-10.2)
[2018-10-21] MEDS: Bacitracin 500 Units/gm Oint Foilpak UD TOP SCH (12:28)
[2018-10-21] MEDS: Lactobacillus Acidophilus 500 MU Cap PO SCH ×2 (12:34→18:22)
--- NOTE | 2018-10-21 12:58 | CP.PCM.PN ---
Subjective - Date & Time of Evaluation Date of Evaluation: 10/21/18 Time of Evaluation: 08:50 - Subjective Subjective: No changes clinically Patient appears to be comfortable not in any distress. Vital signs noted to be stable. Patient awake and reported that he is eating no vomiting. Objective - Vital Signs/Intake and Output Vital Signs (last 24 hours): Temp Pulse Resp BP Pulse Ox 98.1 F 110 H 20 108/69 99 10/21/18 08:31 10/21/18 12:28 10/21/18 08:31 10/21/18 12:28 10/21/18 08:31 Intake and Output: 10/21/18 10/21/18 06:59 18:59 Intake Total 1200 Balance 1200 - Medications Medications: Current Medications Bacitracin (Bacitracin) 1 ea TOP DAILY [facility] Last Admin: 10/21/18 12:28 Dose: 1 ea Epoetin Charles (Procrit) 8,000 unit SC TTS [facility] Last Admin: 10/20/18 12:40 Dose: 8,000 unit Lactic Acid (Lac-Hydrin 12% Lotion (225 G)) 1 applic TOP BID [facility] Last Admin: 10/21/18 12:28 Dose: 1 applic Lactobacillus Acidophilus (Bacid Acidophilus) 1 cap PO BID [facility] Last Admin: 10/21/18 12:34 Dose: 1 cap Losartan Potassium (Cozaar) 50 mg PO DAILY [facility] Last Admin: 09/27/18 15:20 Dose: Not Given Metoprolol Tartrate (Lopressor) 50 mg PO Q12 [facility] Last Admin: 10/21/18 12:28 Dose: 50 mg - Labs Labs: 10/21/18 11:16 10/21/18 11:16 PT 12.9 Seconds (9.8-13.1) 10/21/18 11:16 INR 1.1 10/21/18 11:16 APTT 30.4 Seconds (25.6-37.1) 10/21/18 11:16 - Constitutional Appears: No Acute Distress - Eye Exam Eye Exam: Conjunctival injection - ENT Exam ENT Exam: Mucous Membranes Moist - Neck Exam Neck Exam: absent: Lymphadenopathy - Respiratory Exam Respiratory Exam: NORMAL BREATHING PATTERN. absent: Chest Wall Tenderness - GI/Abdominal Exam GI & Abdominal Exam: Soft, Normal Bowel Sounds - Extremities Exam Extremities Exam: absent: Calf Tenderness - Back Exam Back Exam: absent: CVA tenderness (L), CVA tenderness (R) - Neurological Exam Neurological Exam: Awake - Skin Skin Exam: absent: Cyanosis Assessment and Plan (1) Atrial fibrillation with RVR Status: Acute (2) ESRD (end stage renal disease) Status: Chronic (3) Anemia Status: Chronic (4) Chronic kidney disease, stage IV (severe) Assessment & Plan: Chronic kidney disease stage IV Patient OFF dialysis Anemia Atrial fibrillation with controlled heart rate Overall patient improving and doing much better Recommendation Continue monitoring Hemoglobin dropping patient may need 1 unit of transfusion continue EPO Check serum iron ferritin level and iron saturation Status: Acute
[2018-10-22] MEDS: EPOETIN ALFA 10,000 UNIT/ML ML SC SCH (09:40)
[2018-10-22] MEDS: Lactobacillus Acidophilus 500 MU Cap PO SCH ×2 (09:40→17:27)
[2018-10-22] MEDS: Bacitracin 500 Units/gm Oint Foilpak UD TOP SCH (09:42)
--- NOTE | 2018-10-22 13:55 | PN ---
DATE: 10/22/2018 SUBJECTIVE: The patient seen and examined. Interim events noted. The patient remains in regular medical floor, very poor historian. Denies any specific complaint. No specific issue reported by nursing staff. PHYSICAL EXAMINATION: GENERAL: The patient is in no acute distress. VITAL SIGNS: Stable. No orthostatic changes. HEART: S1 and S2, normal and regular. LUNGS: Good bilateral air exchange. ABDOMEN: Soft, nontender. EXTREMITIES: No edema, no calf swelling, no tenderness. No acute ischemia. CENTRAL NERVOUS SYSTEM: Exam is essentially unchanged. DIAGNOSTIC DATA: Available diagnostic data reviewed. ASSESSMENT AND PLAN: Nephrology followup and intervention noted and appreciated. Apparently, the patient's family was found and daughter has assumed responsibility for the patient's care. The patient is tentatively scheduled for cystoscopy. The patient is medically stable. Plan as ordered. Hans Tineo MD
[2018-10-22 16:24] LABS: HEMOGLOBIN 7.6 g/dL (12.0-18.0); MEAN CELL VOLUME 96.3 fl (80.0-94.0); MEAN CORPUSCULAR HEMOGLOBIN 31.4 pg (27.0-31.0); MEAN CORPUSCULAR HGB CONC 32.6 g/dL (33.0-37.0); RBC 2.42 Mil/uL (4.40-5.90); RED CELL DISTRIBUTION WIDTH 18.3 % (11.5-14.5); WHITE BLOOD COUNT 5.1 K/uL (4.8-10.8)
[2018-10-22 16:32] LABS: INR 1.1; PROTHROMBIN TIME 12.9 Seconds (9.8-13.1)
[2018-10-22 16:35] LABS: PARTIAL THROMBOPLASTIN TIME 31.5 Seconds (25.6-37.1)
[2018-10-22 16:36] LABS: ALB/GLOB RATIO 0.6 (1.0-2.1); CALCIUM 8.3 mg/dL (8.4-10.2)
--- NOTE | 2018-10-22 20:36 | CP.PCM.PN ---
Subjective - Date & Time of Evaluation Date of Evaluation: 10/22/18 Time of Evaluation: 20:32 - Subjective Subjective: urology pt being evaluated for intermittent hematuria. he has a lowering hemodynamic condition and persistent renal insufficiency. I will plan to perform cystoscopy on Wednesday to evaluate bladder and prostate as source of hematuria Objective - Vital Signs/Intake and Output Vital Signs (last 24 hours): Temp Pulse Resp BP Pulse Ox 98.4 F 94 H 19 119/73 100 10/22/18 16:04 10/22/18 16:04 10/22/18 16:04 10/22/18 16:04 10/22/18 16:04 - Medications Medications: Current Medications Bacitracin (Bacitracin) 1 ea TOP DAILY [facility] Last Admin: 10/22/18 09:42 Dose: 1 ea Epoetin Charles (Procrit) 10,000 unit SC TTS [facility] Last Admin: 10/22/18 09:40 Dose: 10,000 unit Lactic Acid (Lac-Hydrin 12% Lotion (225 G)) 1 applic TOP BID [facility] Last Admin: 10/22/18 17:25 Dose: 1 applic Lactobacillus Acidophilus (Bacid Acidophilus) 1 cap PO BID [facility] Last Admin: 10/22/18 17:27 Dose: 1 cap Losartan Potassium (Cozaar) 50 mg PO DAILY [facility] Last Admin: 09/27/18 15:20 Dose: Not Given Metoprolol Tartrate (Lopressor) 50 mg PO Q12 [facility] Last Admin: 10/22/18 09:41 Dose: 50 mg - Labs Labs: 10/22/18 15:51 10/22/18 15:51 PT 12.9 Seconds (9.8-13.1) 10/22/18 15:51 INR 1.1 10/22/18 15:51 APTT 31.5 Seconds (25.6-37.1) 10/22/18 15:51
[2018-10-23] MEDS: Lactobacillus Acidophilus 500 MU Cap PO SCH ×2 (08:35→17:10)
[2018-10-23] MEDS: Bacitracin 500 Units/gm Oint Foilpak UD TOP SCH (08:36)
--- NOTE | 2018-10-23 12:59 | CP.PCM.PN ---
Subjective - Date & Time of Evaluation Date of Evaluation: 10/23/18 Time of Evaluation: 09:00 - Subjective Subjective: afeb off antibiotics gu eval in progress denies diarrhea Objective - Vital Signs/Intake and Output Vital Signs (last 24 hours): Temp Pulse Resp BP Pulse Ox 97.4 F L 90 20 109/67 97 10/23/18 08:08 10/23/18 08:36 10/23/18 08:08 10/23/18 08:36 10/23/18 08:08 - Medications Medications: Current Medications Bacitracin (Bacitracin) 1 ea TOP DAILY [facility] Last Admin: 10/23/18 08:36 Dose: 1 ea Epoetin Charles (Procrit) 10,000 unit SC TTS [facility] Last Admin: 10/22/18 09:40 Dose: 10,000 unit Lactic Acid (Lac-Hydrin 12% Lotion (225 G)) 1 applic TOP BID [facility] Last Admin: 10/23/18 08:43 Dose: 1 applic Lactobacillus Acidophilus (Bacid Acidophilus) 1 cap PO BID [facility] Last Admin: 10/23/18 08:35 Dose: 1 cap Losartan Potassium (Cozaar) 50 mg PO DAILY [facility] Last Admin: 09/27/18 15:20 Dose: Not Given Metoprolol Tartrate (Lopressor) 50 mg PO Q12 [facility] Last Admin: 10/23/18 08:36 Dose: 50 mg - Labs Labs: 10/22/18 15:51 10/22/18 15:51 PT 12.9 Seconds (9.8-13.1) 10/22/18 15:51 INR 1.1 10/22/18 15:51 APTT 31.5 Seconds (25.6-37.1) 10/22/18 15:51 - Constitutional Appears: Non-toxic, Chronically Ill - Head Exam Head Exam: NORMOCEPHALIC - Eye Exam Eye Exam: absent: Scleral icterus - ENT Exam ENT Exam: Mucous Membranes Dry - Neck Exam Neck Exam: absent: Lymphadenopathy - Respiratory Exam Respiratory Exam: Decreased Breath Sounds - Cardiovascular Exam Cardiovascular Exam: REGULAR RHYTHM - GI/Abdominal Exam GI & Abdominal Exam: Distended, Soft - Rectal Exam Rectal Exam: Deferred - Exam Exam: NORMAL INSPECTION - Extremities Exam Extremities Exam: absent: Pedal Edema - Back Exam Back Exam: absent: CVA tenderness (L), CVA tenderness (R) - Neurological Exam Neurological Exam: Alert, Altered, Awake - Psychiatric Exam Psychiatric exam: Depressed Assessment and Plan (1) Atrial fibrillation with RVR Status: Acute (2) Anemia Status: Chronic (3) ESRD (end stage renal disease) Status: Chronic (4) Acute on chronic renal failure Status: Acute (5) Hepatitis C Status: Acute - Assessment and Plan (Free Text) Assessment: cont rx check Hep C viral load
--- NOTE | 2018-10-23 22:03 | CP.PCM.PN ---
Subjective - Date & Time of Evaluation Date of Evaluation: 10/23/18 Time of Evaluation: 13:00 - Subjective Subjective: renal note no events overnight vitals reviewed heent norml no jvd [id number] present no resp distress abd soft nt nd flat affect awake no gross deficits no edema Chronic kidney disease stage IV Patient OFF dialysis Anemia Atrial fibrillation with controlled heart rate renal funciton is stable lytes have been stable anemia transfuse as needed no hd needs monitor phos levels Objective - Vital Signs/Intake and Output Vital Signs (last 24 hours): Temp Pulse Resp BP Pulse Ox 97.9 F 87 20 115/73 98 10/23/18 16:02 10/23/18 21:09 10/23/18 16:02 10/23/18 21:09 10/23/18 16:02 - Medications Medications: Current Medications Bacitracin (Bacitracin) 1 ea TOP DAILY [facility] Last Admin: 10/23/18 08:36 Dose: 1 ea Epoetin Charles (Procrit) 10,000 unit SC TTS [facility] Last Admin: 10/22/18 09:40 Dose: 10,000 unit Lactic Acid (Lac-Hydrin 12% Lotion (225 G)) 1 applic TOP BID [facility] Last Admin: 10/23/18 17:10 Dose: 1 applic Lactobacillus Acidophilus (Bacid Acidophilus) 1 cap PO BID [facility] Last Admin: 10/23/18 17:10 Dose: 1 cap Losartan Potassium (Cozaar) 50 mg PO DAILY [facility] Last Admin: 09/27/18 15:20 Dose: Not Given Metoprolol Tartrate (Lopressor) 50 mg PO Q12 [facility] Last Admin: 10/23/18 21:09 Dose: 50 mg - Labs Labs: 10/22/18 15:51 10/22/18 15:51 PT 12.9 Seconds (9.8-13.1) 10/22/18 15:51 INR 1.1 10/22/18 15:51 APTT 31.5 Seconds (25.6-37.1) 10/22/18 15:51
--- NOTE | 2018-10-24 09:09 | CP.PCM.PCO ---
Assessment & Plan - Assessment and Plan (Free Text) Assessment: As per and , due to significant drop in hgb and hematuria, patient will require emergent cystoscopy today
--- NOTE | 2018-10-24 09:09 | PN ---
DATE: 10/23/2018 SUBJECTIVE: The patient seen and examined. Interim events noted. Consult noted and appreciated. Urology followup and intervention noted and appreciated. The patient remains in regular medical floor. The patient is sleeping, arousable, not a good historian. Denies any specific complaint of chest pain or shortness of breath. No specific issue reported by nursing staff. PHYSICAL EXAMINATION: GENERAL: The patient is in no acute distress. VITAL SIGNS: Stable. HEART: S1 and S2, normal and regular. LUNGS: Good bilateral air exchange. ABDOMEN: Soft and nontender. EXTREMITIES: No edema, no calf swelling. No tenderness, no acute ischemia. CENTRAL NERVOUS SYSTEM: Exam is essentially unchanged. DIAGNOSTIC DATA: Available diagnostic data reviewed. . ASSESSMENT AND PLAN: Overall, the patient is medically . Hans Tineo MD
[2018-10-24] MEDS: Bacitracin 500 Units/gm Oint Foilpak UD TOP SCH (09:26)
--- NOTE | 2018-10-24 10:10 | CP.PCM.PN ---
Subjective - Date & Time of Evaluation Date of Evaluation: 10/24/18 Time of Evaluation: 10:10 - Subjective Subjective: Patient appears to be stable Vital signs noted Objective - Vital Signs/Intake and Output Vital Signs (last 24 hours): Temp Pulse Resp BP Pulse Ox 98.2 F 94 H 20 113/74 100 10/24/18 08:52 10/24/18 09:26 10/24/18 08:52 10/24/18 09:26 10/24/18 08:52 - Medications Medications: Current Medications Bacitracin (Bacitracin) 1 ea TOP DAILY [facility] Last Admin: 10/24/18 09:26 Dose: 1 ea Epoetin Charles (Procrit) 10,000 unit SC TTS [facility] Last Admin: 10/22/18 09:40 Dose: 10,000 unit Lactic Acid (Lac-Hydrin 12% Lotion (225 G)) 1 applic TOP BID [facility] Last Admin: 10/24/18 09:26 Dose: 1 applic Losartan Potassium (Cozaar) 50 mg PO DAILY [facility] Last Admin: 09/27/18 15:20 Dose: Not Given Metoprolol Tartrate (Lopressor) 50 mg PO Q12 [facility] Last Admin: 10/24/18 09:26 Dose: 50 mg - Labs Labs: 10/22/18 15:51 10/22/18 15:51 PT 12.9 Seconds (9.8-13.1) 10/22/18 15:51 INR 1.1 10/22/18 15:51 APTT 31.5 Seconds (25.6-37.1) 10/22/18 15:51 - Constitutional Appears: No Acute Distress - Eye Exam Eye Exam: Conjunctival injection - ENT Exam ENT Exam: Mucous Membranes Moist - Neck Exam Neck Exam: absent: Lymphadenopathy - Respiratory Exam Respiratory Exam: NORMAL BREATHING PATTERN. absent: Chest Wall Tenderness - Cardiovascular Exam Cardiovascular Exam: absent: Gallop, JVD, Rubs - GI/Abdominal Exam GI & Abdominal Exam: Soft, Normal Bowel Sounds - Back Exam Back Exam: absent: CVA tenderness (L) - Neurological Exam Neurological Exam: Altered - Skin Skin Exam: absent: Cyanosis Assessment and Plan (1) Atrial fibrillation with RVR Status: Acute (2) ESRD (end stage renal disease) Status: Chronic (3) Anemia Status: Chronic (4) Chronic kidney disease, stage IV (severe) Assessment & Plan: Chronic kidney disease stage IV Patient OFF dialysis Anemia Atrial fibrillation with controlled heart rate Overall patient improving and doing much better Recommendation Continue monitoring Recommendation EPO for anemia and transfusion as needed counter supply worker on the case for placement Status: Acute
[2018-10-24] MEDS ORDERED: Lidocaine 2% Jelly (Uro-Jet) TOP ONE (12:40)
[2018-10-24] MEDS ORDERED: Lidocaine 2% Jelly (Uro-Jet) ONE (12:45)
[2018-10-24 15:34] LABS: HEMOGLOBIN 7.9 g/dL (12.0-18.0); MEAN CELL VOLUME 96.8 fl (80.0-94.0); MEAN CORPUSCULAR HEMOGLOBIN 32.4 pg (27.0-31.0); MEAN CORPUSCULAR HGB CONC 33.4 g/dL (33.0-37.0); RBC 2.43 Mil/uL (4.40-5.90); RED CELL DISTRIBUTION WIDTH 18.3 % (11.5-14.5); WHITE BLOOD COUNT 8.1 K/uL (4.8-10.8)
--- NOTE | 2018-10-25 07:50 | CP.PCM.PN ---
<Sultan Shari - Last Filed: 10/25/18 09:47> Subjective - Date & Time of Evaluation Date of Evaluation: 10/25/18 Time of Evaluation: 07:30 - Subjective Subjective: Patient seen and examined with Dr. Tineo this morning. Overnight events reviewed, s/p cystocopy yesterday. Had fever of 100.7 F last night, otherwise stable vitals this morning. Alert, awake and lying comfortably in bed, Not in acute distress. Hadley draining pinkish red urine w/ CBI in progress. Objective - Vital Signs/Intake and Output Vital Signs (last 24 hours): Temp Pulse Resp BP Pulse Ox 98.5 F 97 H 20 107/65 99 10/25/18 05:30 10/25/18 05:30 10/25/18 05:30 10/25/18 05:30 10/25/18 05:30 Intake and Output: 10/25/18 10/25/18 06:59 18:59 Intake Total 3000 Output Total 150 Balance 2850 - Medications Medications: Current Medications Bacitracin (Bacitracin) 1 ea TOP DAILY [facility] Last Admin: 10/24/18 09:26 Dose: 1 ea Epoetin Charles (Procrit) 10,000 unit SC TTS [facility] Last Admin: 10/22/18 09:40 Dose: 10,000 unit Lactic Acid (Lac-Hydrin 12% Lotion (225 G)) 1 applic TOP BID [facility] Last Admin: 10/24/18 16:44 Dose: 1 applic Losartan Potassium (Cozaar) 50 mg PO DAILY [facility] Last Admin: 09/27/18 15:20 Dose: Not Given Metoprolol Tartrate (Lopressor) 50 mg PO Q12 [facility] Last Admin: 10/24/18 20:20 Dose: 50 mg - Labs Labs: 10/24/18 15:18 10/22/18 15:51 PT 12.9 Seconds (9.8-13.1) 10/22/18 15:51 INR 1.1 10/22/18 15:51 APTT 31.5 Seconds (25.6-37.1) 10/22/18 15:51 - Constitutional Appears: No Acute Distress - Head Exam Head Exam: NORMAL INSPECTION - Eye Exam Eye Exam: Normal appearance - ENT Exam ENT Exam: Mucous Membranes Moist - Neck Exam Neck Exam: Normal Inspection - Respiratory Exam Respiratory Exam: Clear to Ausculation Bilateral, NORMAL BREATHING PATTERN. absent: Rhonchi, Wheezes - Cardiovascular Exam Cardiovascular Exam: Irregular Rhythm, +S1, +S2 - GI/Abdominal Exam GI & Abdominal Exam: Soft, Normal Bowel Sounds. absent: Tenderness - Exam Additional comments: hadley in place, draining pinkish red urine w/ CBI in progress - Extremities Exam Extremities Exam: Normal Inspection - Neurological Exam Neurological Exam: Alert, Awake - Psychiatric Exam Psychiatric exam: Normal Affect - Skin Skin Exam: Normal Color Assessment and Plan - Assessment and Plan (Free Text) Assessment: A/P: 77 year old Male with PMHx of HTN, Atrial fibrillation, CHF (EF: 60%) and ESRD is admitted for anemia, ESRD, hematuria and a-fib. Psychiatry was consulted and patient does not have medical decision making capacity. Awaiting legal g uardianship for safe disposition. CBC shows H&H 7.9/23.6 yesterday. S/p cystoscopy yesterday and draining pink red urine. If continues to drain red urine, will have possible OR on 10/28/18 for possible resection of bladder neck as per Dr. Jeffries this morning. Major Neurocognitive disorder - Psych consult --Dr. Morales, rec appreciated. - Patient does not have medical decision making capacity - Awaiting legal guardianship for safe disposition A fib w/ RVR -Cardiology on consulted; recs appreciated, will notify if anything changes -C/w Metoprolol Tartrate 50mg PO Q12H UTI-ESBL/Hematuria (gross) -ID consulted; recs appreciated -urology consulted; hematuria follow up recs -Possible cystoscopy on 11/21/[address] Jeffries -repeat Ucx is negative on 10/06/18. Not getting his IV Abx since 10/04/18 ) -Patient has no IV, Has HD catheter ESRD -acute on chronic -2/2 to interstitial renal disease, granulomatosis polyangiitis -Nephrology on board -s/p tunnel cath 09/26 and removed. -No HD for now as per Nephro -GFR and electrolytes stable Anemia -acute on chronic -likely 2/2 to ESRD, hematuria, malignancy -s/p 2 units of PRBC on 09/29, on epo per nephro (total 4pRBCs) -H&H 7.9/23.6yesterday, will transfused if Hb below 7 -s/p cystoscopy on 11/21/18. -continue to monitor -f/u cbc today C. diff pos -Resolved -completed a course of PO vancomycin -c/w probiotic -No diarrhea HTN/CHF -chronic, controlled -c/w home meds DVT proplx: SCD for now Plan discussed with Dr. Noman Mccarthy, pgy-2 <Hans Tineo - Last Filed: 10/25/18 12:17> Objective - Vital Signs/Intake and Output Vital Signs (last 24 hours): Temp Pulse Resp BP Pulse Ox 97.8 F 94 H 19 120/76 95 10/25/18 08:12 10/25/18 09:28 10/25/18 08:12 10/25/18 09:28 10/25/18 08:12 Intake and Output: 10/25/18 10/25/18 11:59 23:59 Intake Total 3000 Output Total 150 Balance 2850 - Medications Medications: Current Medications Bacitracin (Bacitracin) 1 ea TOP DAILY [facility] Last Admin: 10/25/18 08:12 Dose: 1 ea Epoetin Charles (Procrit) 10,000 unit SC TTS [facility] Last Admin: 10/25/18 08:08 Dose: 10,000 unit Lactic Acid (Lac-Hydrin 12% Lotion (225 G)) 1 applic TOP BID [facility] Last Admin: 10/25/18 08:11 Dose: 1 applic Losartan Potassium (Cozaar) 50 mg PO DAILY [facility] Last Admin: 09/27/18 15:20 Dose: Not Given Metoprolol Tartrate (Lopressor) 50 mg PO Q12 [facility] Last Admin: 10/25/18 09:28 Dose: 50 mg - Labs Labs: 10/25/18 10:18 10/25/18 10:18 PT 12.9 Seconds (9.8-13.1) 10/22/18 15:51 INR 1.1 10/22/18 15:51 APTT 31.5 Seconds (25.6-37.1) 10/22/18 15:51 Assessment and Plan - Assessment and Plan (Free Text) Assessment: Patient was personally seen and examined by me in rounds with residents. Available labs and diagnostic data reviewed. Case, Patient's condition and management plan discussed with residents in round s. Agree with resident's progress note. Plan: As ordered.
[2018-10-25] MEDS: EPOETIN ALFA 10,000 UNIT/ML ML SC SCH (08:08)
[2018-10-25] MEDS: Bacitracin 500 Units/gm Oint Foilpak UD TOP SCH (08:12)
[2018-10-25 10:32] LABS: HEMOGLOBIN 8.1 g/dL (12.0-18.0); MEAN CELL VOLUME 96.8 fl (80.0-94.0); MEAN CORPUSCULAR HEMOGLOBIN 31.8 pg (27.0-31.0); MEAN CORPUSCULAR HGB CONC 32.9 g/dL (33.0-37.0); RBC 2.55 Mil/uL (4.40-5.90); RED CELL DISTRIBUTION WIDTH 18.4 % (11.5-14.5); WHITE BLOOD COUNT 7.7 K/uL (4.8-10.8)
[2018-10-25 10:49] LABS: CALCIUM 8.4 mg/dL (8.4-10.2)
--- NOTE | 2018-10-25 11:47 | CP.PCM.PN ---
Subjective - Date & Time of Evaluation Date of Evaluation: 10/25/18 Time of Evaluation: 11:46 - Subjective Subjective: No significant changes today. Vital signs stable. Appetite reported to be okay no nausea no vomiting Objective - Vital Signs/Intake and Output Vital Signs (last 24 hours): Temp Pulse Resp BP Pulse Ox 97.8 F 94 H 19 120/76 95 10/25/18 08:12 10/25/18 09:28 10/25/18 08:12 10/25/18 09:28 10/25/18 08:12 Intake and Output: 10/25/18 10/25/18 06:59 18:59 Intake Total 3000 Output Total 150 Balance 2850 - Medications Medications: Current Medications Bacitracin (Bacitracin) 1 ea TOP DAILY [facility] Last Admin: 10/25/18 08:12 Dose: 1 ea Epoetin Charles (Procrit) 10,000 unit SC TTS [facility] Last Admin: 10/25/18 08:08 Dose: 10,000 unit Lactic Acid (Lac-Hydrin 12% Lotion (225 G)) 1 applic TOP BID [facility] Last Admin: 10/25/18 08:11 Dose: 1 applic Losartan Potassium (Cozaar) 50 mg PO DAILY [facility] Last Admin: 09/27/18 15:20 Dose: Not Given Metoprolol Tartrate (Lopressor) 50 mg PO Q12 [facility] Last Admin: 10/25/18 09:28 Dose: 50 mg - Labs Labs: 10/25/18 10:18 10/25/18 10:18 PT 12.9 Seconds (9.8-13.1) 10/22/18 15:51 INR 1.1 10/22/18 15:51 APTT 31.5 Seconds (25.6-37.1) 10/22/18 15:51 - Constitutional Appears: No Acute Distress - Eye Exam Eye Exam: Conjunctival injection - ENT Exam ENT Exam: Mucous Membranes Moist - Neck Exam Neck Exam: absent: Lymphadenopathy - Respiratory Exam Respiratory Exam: NORMAL BREATHING PATTERN - Extremities Exam Extremities Exam: absent: Calf Tenderness - Back Exam Back Exam: absent: CVA tenderness (L), CVA tenderness (R) - Neurological Exam Neurological Exam: Awake - Skin Skin Exam: absent: Cyanosis Assessment and Plan (1) Atrial fibrillation with RVR Status: Acute (2) ESRD (end stage renal disease) Assessment & Plan: Chronic kidney disease stage IV Patient OFF dialysis Anemia Atrial fibrillation with controlled heart rate Overall patient improving and doing much better Recommendation Status post cystoscopy done yesterday. Kidney function appears to be stable creatinine in the range of 2.5-3 on different occasions. Continue monitoring CBC which has been dropping patient receiving EPO as well Status: Chronic (3) Anemia Status: Chronic (4) Chronic kidney disease, stage IV (severe) Status: Acute
[2018-10-25] MEDS ORDERED: Lidocaine Hydrochloride 5 ML INJ ONE (12:21)
--- NOTE | 2018-10-25 12:33 | PCM.SURG1 ---
Surgeon's Initial Post Op Note - Surgeon's Notes Surgeon: Mao Applique Cutter: None Type of Anesthesia: None Pre-Operative Diagnosis: The patient is off dialysis. Based on conversation with ELISSA Long, the escalator service mechanic wanted to d/c the dialysis catheter. Operative Findings: Right sided tunneled HD cathter. Post-Operative Diagnosis: Same Operation Performed: Removal of right sided HD cathter. Specimen/Specimens Removed: HD catheter Estimated Blood Loss: EBL {In ML}: 1 Date of Surgery/Procedure: 10/25/18 Time of Surgery/Procedure: 12:20
--- NOTE | 2018-10-26 07:45 | CP.PCM.PN ---
<Sultan Shari - Last Filed: 10/26/18 08:33> Subjective - Date & Time of Evaluation Date of Evaluation: 10/26/18 Time of Evaluation: 07:30 - Subjective Subjective: Patient seen and examined this AM w/ Dr. Tineo s/p cystocopy on 10/24/18, hadley draining light pinkish urine w/ CBI in progress. Right sided HD catheter was removed yesterday. Had temperature of 99.7 F last night, otherwise stable vitals this morning. Alert, awake and lying comfortably in bed, not in acute distress. Declined blood work this morning. Objective - Vital Signs/Intake and Output Vital Signs (last 24 hours): Temp Pulse Resp BP Pulse Ox 99.7 F H 105 H 19 100/43 L 97 10/26/18 00:51 10/26/18 00:51 10/26/18 00:51 10/26/18 00:51 10/26/18 00:51 Intake and Output: 10/26/18 10/26/18 06:59 18:59 Intake Total 3000 Output Total 400 Balance 2600 - Medications Medications: Current Medications Bacitracin (Bacitracin) 1 ea TOP DAILY [facility] Last Admin: 10/25/18 08:12 Dose: 1 ea Epoetin Charles (Procrit) 10,000 unit SC TTS [facility] Last Admin: 10/25/18 08:08 Dose: 10,000 unit Lactic Acid (Lac-Hydrin 12% Lotion (225 G)) 1 applic TOP BID [facility] Last Admin: 10/25/18 16:16 Dose: 1 applic Losartan Potassium (Cozaar) 50 mg PO DAILY [facility] Last Admin: 09/27/18 15:20 Dose: Not Given Metoprolol Tartrate (Lopressor) 50 mg PO Q12 [facility] Last Admin: 10/25/18 21:56 Dose: 50 mg - Labs Labs: 10/25/18 10:18 10/25/18 10:18 PT 12.9 Seconds (9.8-13.1) 10/22/18 15:51 INR 1.1 10/22/18 15:51 APTT 31.5 Seconds (25.6-37.1) 10/22/18 15:51 - Constitutional Appears: No Acute Distress - Head Exam Head Exam: NORMAL INSPECTION - Eye Exam Eye Exam: Normal appearance - Neck Exam Neck Exam: Normal Inspection - Respiratory Exam Respiratory Exam: Clear to Ausculation Bilateral, NORMAL BREATHING PATTERN. absent: Rhonchi, Wheezes - Cardiovascular Exam Cardiovascular Exam: Irregular Rhythm, +S1, +S2 - GI/Abdominal Exam GI & Abdominal Exam: Soft, Normal Bowel Sounds. absent: Tenderness - Extremities Exam Extremities Exam: Normal Inspection. absent: Calf Tenderness - Neurological Exam Neurological Exam: Alert, Awake - Skin Skin Exam: Normal Color Assessment and Plan - Assessment and Plan (Free Text) Assessment: A/P: 77 year old Male with PMHx of HTN, Atrial fibrillation, CHF (EF: 60%) and ESRD is admitted for anemia, ESRD, hematuria and a-fib. Psychiatry was consulted and patient does not have medical decision making capacity. Awaiting legal guardianship for safe disposition. CBC shows H&H 8.1/24.6 yesterday. S/p cystoscopy on 10/24/18 and draining light pink urine. Possible OR for possible resection of bladder neck on 10/28/[address] Jeffries if patient continues to have hematuria. Major Neurocognitive disorder - Psych consult --Dr. Morales, rec appreciated. - Patient does not have medical decision making capacity -Patient's daughter Gema Dang tel#[phone] is in charge of medical decision making A fib w/ RVR -Cardiology on consulted; recs appreciated, will notify if anything changes -C/w Metoprolol Tartrate 50mg PO Q12H UTI-ESBL/Hematuria (gross) -ID consulted; recs appreciated -urology consulted; hematuria follow up recs -repeat Ucx is negative on 10/06/18. Not getting his IV Abx since 10/04/18 ) Hx ESRD, now CKD Stage 4 -acute on chronic -2/2 to interstitial renal disease, granulomatosis polyangiitis -Nephrology on board -s/p tunnel cath placed on 09/26 and removed on 10/25/18 -No HD for now as per Nephro -GFR and electrolytes stable Anemia -acute on chronic -likely 2/2 to ESRD, hematuria, malignancy -s/p 2 units of PRBC on 09/29, on epo per nephro (total 4pRBCs) -H&H 8.1/24.6 yesterday, will transfused if Hb below 7 -s/p cystoscopy on 11/21/18. -continue to monitor -f/u cbc C. diff pos -Resolved -completed a course of PO vancomycin -c/w probiotic -No diarrhea HTN/CHF -chronic, controlled -hold Losartan DVT prophylaxis: SCD for now Plan discussed with Dr. Noman Mccarthy, pgy-2 <Hans Tineo - Last Filed: 10/30/18 17:00> Objective - Vital Signs/Intake and Output Vital Signs (last 24 hours): Temp Pulse Resp BP Pulse Ox 97.9 F 91 H 18 117/69 99 10/30/18 16:17 10/30/18 16:17 10/30/18 16:17 10/30/18 16:17 10/30/18 16:17 Intake and Output: 10/30/18 10/30/18 11:59 23:59 Output Total 1800 Balance -1800 - Medications Medications: Current Medications Bacitracin (Bacitracin) 1 ea TOP DAILY [facility] Last Admin: 10/30/18 08:22 Dose: 1 ea Epoetin Charles (Procrit) 10,000 unit SC TTS [facility] Last Admin: 10/29/18 11:17 Dose: 10,000 unit Lactic Acid (Lac-Hydrin 12% Lotion (225 G)) 1 applic TOP BID [facility] Last Admin: 10/30/18 16:02 Dose: 1 applic Losartan Potassium (Cozaar) 50 mg PO DAILY [facility] Last Admin: 09/27/18 15:20 Dose: Not Given Metoprolol Tartrate (Lopressor) 50 mg PO Q12 [facility] Last Admin: 10/30/18 08:23 Dose: 50 mg - Labs Labs: 10/29/18 05:01 10/29/18 05:01 PT 12.9 Seconds (9.8-13.1) 10/22/18 15:51 INR 1.1 10/22/18 15:51 APTT 31.5 Seconds (25.6-37.1) 10/22/18 15:51 Assessment and Plan - Assessment and Plan (Free Text) Assessment: Patient was personally seen and examined by me in rounds with residents. Available labs and diagnostic data reviewed. Case, Patient's condition and management plan discussed with residents in rounds. Agree with resident's progress note. Plan: As ordered.
[2018-10-26] MEDS: Bacitracin 500 Units/gm Oint Foilpak UD TOP SCH (09:34)
--- NOTE | 2018-10-26 10:57 | CP.PCM.PN ---
Subjective - Date & Time of Evaluation Date of Evaluation: 10/26/18 Time of Evaluation: 10:55 - Subjective Subjective: Patient sitting up in bed having his breakfast this morning awake and trying to communicate Vital signs stable Objective - Vital Signs/Intake and Output Vital Signs (last 24 hours): Temp Pulse Resp BP Pulse Ox 98.7 F 81 20 101/65 99 10/26/18 08:35 10/26/18 09:35 10/26/18 08:35 10/26/18 09:35 10/26/18 08:35 Intake and Output: 10/26/18 10/26/18 06:59 18:59 Intake Total 3000 Output Total 400 Balance 2600 - Medications Medications: Current Medications Bacitracin (Bacitracin) 1 ea TOP DAILY [facility] Last Admin: 10/26/18 09:34 Dose: 1 ea Epoetin Charles (Procrit) 10,000 unit SC TTS [facility] Last Admin: 10/25/18 08:08 Dose: 10,000 unit Lactic Acid (Lac-Hydrin 12% Lotion (225 G)) 1 applic TOP BID [facility] Last Admin: 10/26/18 09:34 Dose: 1 applic Losartan Potassium (Cozaar) 50 mg PO DAILY [facility] Last Admin: 09/27/18 15:20 Dose: Not Given Metoprolol Tartrate (Lopressor) 50 mg PO Q12 [facility] Last Admin: 10/26/18 09:35 Dose: 50 mg - Labs Labs: 10/25/18 10:18 10/25/18 10:18 PT 12.9 Seconds (9.8-13.1) 10/22/18 15:51 INR 1.1 10/22/18 15:51 APTT 31.5 Seconds (25.6-37.1) 10/22/18 15:51 - Constitutional Appears: No Acute Distress - Eye Exam Eye Exam: Conjunctival injection - ENT Exam ENT Exam: Mucous Membranes Moist - Respiratory Exam Respiratory Exam: absent: Chest Wall Tenderness - Cardiovascular Exam Cardiovascular Exam: absent: Gallop, JVD, Rubs - GI/Abdominal Exam GI & Abdominal Exam: Soft, Normal Bowel Sounds - Extremities Exam Extremities Exam: absent: Calf Tenderness - Back Exam Back Exam: absent: CVA tenderness (L), CVA tenderness (R) - Neurological Exam Neurological Exam: Alert - Skin Skin Exam: absent: Cyanosis Assessment and Plan (1) Atrial fibrillation with RVR Status: Acute (2) ESRD (end stage renal disease) Assessment & Plan: Chronic kidney disease stage IV Been stable Chronic atrial fibrillation which has been controlled and stable Anemia related to multifactorial between the bleeding and also chronic kidney disease Continue EPO and urology follow-up Status post cystoscopy Status: Chronic (3) Anemia Status: Chronic (4) Chronic kidney disease, stage IV (severe) Status: Acute
--- NOTE | 2018-10-26 14:52 | CP.PCM.PN ---
Subjective - Date & Time of Evaluation Date of Evaluation: 10/26/18 Time of Evaluation: 09:00 - Subjective Subjective: condition same afeb CBI in progress Objective - Vital Signs/Intake and Output Vital Signs (last 24 hours): Temp Pulse Resp BP Pulse Ox 98.7 F 81 20 101/65 99 10/26/18 08:35 10/26/18 09:35 10/26/18 08:35 10/26/18 09:35 10/26/18 08:35 Intake and Output: 10/26/18 10/26/18 06:59 18:59 Intake Total 3000 Output Total 400 Balance 2600 - Medications Medications: Current Medications Bacitracin (Bacitracin) 1 ea TOP DAILY [facility] Last Admin: 10/26/18 09:34 Dose: 1 ea Epoetin Charles (Procrit) 10,000 unit SC TTS [facility] Last Admin: 10/25/18 08:08 Dose: 10,000 unit Lactic Acid (Lac-Hydrin 12% Lotion (225 G)) 1 applic TOP BID [facility] Last Admin: 10/26/18 09:34 Dose: 1 applic Losartan Potassium (Cozaar) 50 mg PO DAILY [facility] Last Admin: 09/27/18 15:20 Dose: Not Given Metoprolol Tartrate (Lopressor) 50 mg PO Q12 [facility] Last Admin: 10/26/18 09:35 Dose: 50 mg - Labs Labs: 10/25/18 10:18 10/25/18 10:18 PT 12.9 Seconds (9.8-13.1) 10/22/18 15:51 INR 1.1 10/22/18 15:51 APTT 31.5 Seconds (25.6-37.1) 10/22/18 15:51 - Constitutional Appears: Non-toxic, Confused, Chronically Ill - Head Exam Head Exam: NORMOCEPHALIC - Eye Exam Eye Exam: absent: Nystagmus - ENT Exam ENT Exam: Mucous Membranes Dry - Neck Exam Neck Exam: absent: Lymphadenopathy - Respiratory Exam Respiratory Exam: Decreased Breath Sounds - Cardiovascular Exam Cardiovascular Exam: REGULAR RHYTHM - GI/Abdominal Exam GI & Abdominal Exam: Distended - Rectal Exam Rectal Exam: Deferred - Exam Exam: NORMAL INSPECTION - Extremities Exam Extremities Exam: absent: Pedal Edema - Back Exam Back Exam: absent: CVA tenderness (L), CVA tenderness (R) - Neurological Exam Neurological Exam: Alert, Awake, CN II-XII Intact Assessment and Plan (1) Atrial fibrillation with RVR Status: Acute (2) Anemia Status: Chronic (3) ESRD (end stage renal disease) Status: Chronic (4) Acute on chronic renal failure Status: Acute (5) Hepatitis C Status: Acute - Assessment and Plan (Free Text) Assessment: s/p ESBL sepsis had cysto yest no fever off antibiotics monitor for infection
--- NOTE | 2018-10-27 07:57 | CP.PCM.PN ---
<Sultan Shari - Last Filed: 10/27/18 10:59> Subjective - Date & Time of Evaluation Date of Evaluation: 10/27/18 Time of Evaluation: 07:45 - Subjective Subjective: Patient seen and examined this AM w/ Dr. Tineo s/p cystocopy on 10/24/18, CBI was clamped last night and hadley draining spence red urine. Afebrile with stable BP and slight tachycardia w HR in 90's No acute overnight events Alert, awake and lying comfortably in bed, not in acute distress. CBC shows H&H 7.2/21.6 this morning. Objective - Vital Signs/Intake and Output Vital Signs (last 24 hours): Temp Pulse Resp BP Pulse Ox 99 F 95 H 19 99/65 L 98 10/27/18 00:22 10/27/18 00:22 10/27/18 00:22 10/27/18 00:22 10/27/18 00:22 Intake and Output: 10/27/18 10/27/18 06:59 18:59 Output Total 200 Balance -200 - Medications Medications: Current Medications Bacitracin (Bacitracin) 1 ea TOP DAILY [facility] Last Admin: 10/26/18 09:34 Dose: 1 ea Epoetin Charles (Procrit) 10,000 unit SC TTS [facility] Last Admin: 10/25/18 08:08 Dose: 10,000 unit Lactic Acid (Lac-Hydrin 12% Lotion (225 G)) 1 applic TOP BID [facility] Last Admin: 10/26/18 17:14 Dose: Not Given Losartan Potassium (Cozaar) 50 mg PO DAILY [facility] Last Admin: 09/27/18 15:20 Dose: Not Given Metoprolol Tartrate (Lopressor) 50 mg PO Q12 [facility] Last Admin: 10/26/18 21:50 Dose: 50 mg - Labs Labs: 10/25/18 10:18 10/25/18 10:18 PT 12.9 Seconds (9.8-13.1) 10/22/18 15:51 INR 1.1 10/22/18 15:51 APTT 31.5 Seconds (25.6-37.1) 10/22/18 15:51 - Constitutional Appears: No Acute Distress - Head Exam Head Exam: NORMAL INSPECTION - Eye Exam Eye Exam: Normal appearance - ENT Exam ENT Exam: Mucous Membranes Moist - Neck Exam Neck Exam: Normal Inspection - Respiratory Exam Respiratory Exam: Clear to Ausculation Bilateral, NORMAL BREATHING PATTERN. absent: Rhonchi, Wheezes - Cardiovascular Exam Cardiovascular Exam: +S1, +S2 - GI/Abdominal Exam GI & Abdominal Exam: Soft, Normal Bowel Sounds. absent: Tenderness - Exam Additional comments: hadley draining spence red urine, no blood clots seen - Extremities Exam Extremities Exam: Normal Inspection. absent: Calf Tenderness - Neurological Exam Neurological Exam: Alert, Awake - Psychiatric Exam Psychiatric exam: Normal Affect - Skin Skin Exam: Normal Color Assessment and Plan - Assessment and Plan (Free Text) Assessment: A/P: 77 year old Male with PMHx of HTN, Atrial fibrillation, CHF (EF: 60%) and ESRD is admitted for anemia, ESRD, hematuria and a-fib. Psychiatry was consulted and patient does not have medical decision making capacity. Awaiting legal guardianship for safe disposition. S/p cystoscopy on 10/24/18, CBI clamped last night and Hadley draining spence colored urine. CBC shows H&H 7.2/21.6 this morning. Major Neurocognitive disorder - Psych consult --Dr. Morales, rec appreciated. - Patient does not have medical decision making capacity -Patient's daughter Gema Dang tel#[phone] is in charge of medical decision making A fib w/ RVR -Cardiology on consulted; recs appreciated, will notify if anything changes -C/w Metoprolol Tartrate 50mg PO Q12H UTI-ESBL/Hematuria (gross) -ID consulted; recs appreciated -urology consulted; hematuria follow up recs -repeat Ucx is negative on 10/06/18. Not getting his IV Abx since 10/04/18 ) Hx ESRD, now CKD Stage 4 -acute on chronic -2/2 to interstitial renal disease, granulomatosis polyangiitis -Nephrology on board -s/p tunnel cath placed on 09/26 and removed on 10/25/18 -No HD for now as per Nephro -GFR and electrolytes stable Anemia -acute on chronic -likely 2/2 to ESRD, hematuria, malignancy -s/p 2 units of PRBC on 09/29, on epo per nephro (total 4pRBCs) -H&H 7.2/21.6, will transfused if Hb below 7 -s/p cystoscopy on 11/21/18. -continue to monitor -f/u cbc C. diff pos -Resolved -completed a course of PO vancomycin -c/w probiotic -No diarrhea HTN/CHF -chronic, controlled -hold Losartan DVT prophylaxis: SCD for now Plan discussed with Dr. Noman Mccarthy, pgy-2 <Hans Tineo - Last Filed: 10/30/18 16:59> Objective - Vital Signs/Intake and Output Vital Signs (last 24 hours): Temp Pulse Resp BP Pulse Ox 97.9 F 91 H 18 117/69 99 10/30/18 16:17 10/30/18 16:17 10/30/18 16:17 10/30/18 16:17 10/30/18 16:17 Intake and Output: 10/30/18 10/30/18 11:59 23:59 Output Total 1800 Balance -1800 - Medications Medications: Current Medications Bacitracin (Bacitracin) 1 ea TOP DAILY [facility] Last Admin: 10/30/18 08:22 Dose: 1 ea Epoetin Charles (Procrit) 10,000 unit SC TTS [facility] Last Admin: 10/29/18 11:17 Dose: 10,000 unit Lactic Acid (Lac-Hydrin 12% Lotion (225 G)) 1 applic TOP BID [facility] Last Admin: 10/30/18 16:02 Dose: 1 applic Losartan Potassium (Cozaar) 50 mg PO DAILY [facility] Last Admin: 09/27/18 15:20 Dose: Not Given Metoprolol Tartrate (Lopressor) 50 mg PO Q12 [facility] Last Admin: 10/30/18 08:23 Dose: 50 mg - Labs Labs: 10/29/18 05:01 10/29/18 05:01 PT 12.9 Seconds (9.8-13.1) 10/22/18 15:51 INR 1.1 10/22/18 15:51 APTT 31.5 Seconds (25.6-37.1) 10/22/18 15:51 Assessment and Plan - Assessment and Plan (Free Text) Assessment: Patient was personally seen and examined by me in rounds with residents. Available labs and diagnostic data reviewed. Case, Patient's condition and management plan discussed with residents in rounds. Agree with resident's progress note. Plan: As ordered.
[2018-10-27 08:07] LABS: BASO # 0.1 K/uL (0.0-0.2); BASO % 1.1 % (0.0-2.0); EOS # 0.1 K/uL (0.0-0.7); EOS % 1.1 % (0.0-4.0); HEMOGLOBIN 7.2 g/dL (12.0-18.0); LYMPH # 0.7 K/uL (1.0-4.3); LYMPH % 14.5 % (20.0-40.0); MEAN CELL VOLUME 96.6 fl (80.0-94.0); MEAN CORPUSCULAR HEMOGLOBIN 32.3 pg (27.0-31.0); MEAN CORPUSCULAR HGB CONC 33.4 g/dL (33.0-37.0); MEAN PLATELET VOLUME 6.4 fl (7.2-11.7); MONO # 0.7 K/uL (0.0-0.8); MONO % 13.4 % (0.0-10.0); NEUT # 3.6 K/uL (1.8-7.0); NEUT % 69.9 % (50.0-75.0); NRBC % 0.1 % (0.0-0.0); RBC 2.24 Mil/uL (4.40-5.90); RED CELL DISTRIBUTION WIDTH 18.1 % (11.5-14.5); WHITE BLOOD COUNT 5.1 K/uL (4.8-10.8)
[2018-10-27 08:38] LABS: CALCIUM 8.3 mg/dL (8.4-10.2)
[2018-10-27] MEDS: Bacitracin 500 Units/gm Oint Foilpak UD TOP SCH (09:47)
[2018-10-27] MEDS: EPOETIN ALFA 10,000 UNIT/ML ML SC SCH (09:48)
--- NOTE | 2018-10-27 13:41 | CT ---
PermCath removal History: Completion hemodialysis. Comparison: Comparison is made to fluoroscopic image from 09/26/2018. Procedure and findings: The right upper chest including the indwelling catheter was prepped and draped in the usual sterile techniques. Initial fluoroscopic computer education teacher image demonstrated the needle and catheter. Using light pressure, catheter was pulled. The catheter cuff was freed from the subcutaneous tissue with ease. The catheter was then removed and a final fluoroscopic images obtained. A sterile dressing was applied. Patient tolerated the procedure well. Impression: Successful removal of right-sided PermCath.
--- NOTE | 2018-10-27 20:56 | CP.PCM.PN ---
Subjective - Date & Time of Evaluation Date of Evaluation: 10/27/18 Time of Evaluation: 10:55 - Subjective Subjective: Patient sitting up in bed awake feeling much better. Is trying to communicate better. Objective - Vital Signs/Intake and Output Vital Signs (last 24 hours): Temp Pulse Resp BP Pulse Ox 97.9 F 92 H 20 97/64 L 100 10/27/18 15:57 10/27/18 15:57 10/27/18 15:57 10/27/18 15:57 10/27/18 15:57 Intake and Output: 10/27/18 10/28/18 18:59 06:59 Output Total 400 Balance -400 - Medications Medications: Current Medications Bacitracin (Bacitracin) 1 ea TOP DAILY [facility] Last Admin: 10/27/18 09:47 Dose: 1 ea Epoetin Charles (Procrit) 10,000 unit SC TTS [facility] Last Admin: 10/27/18 09:48 Dose: 10,000 unit Lactic Acid (Lac-Hydrin 12% Lotion (225 G)) 1 applic TOP BID [facility] Last Admin: 10/27/18 17:17 Dose: 1 applic Losartan Potassium (Cozaar) 50 mg PO DAILY [facility] Last Admin: 09/27/18 15:20 Dose: Not Given Metoprolol Tartrate (Lopressor) 50 mg PO Q12 [facility] Last Admin: 10/27/18 09:48 Dose: 50 mg - Labs Labs: 10/27/18 08:01 10/27/18 08:01 PT 12.9 Seconds (9.8-13.1) 10/22/18 15:51 INR 1.1 10/22/18 15:51 APTT 31.5 Seconds (25.6-37.1) 10/22/18 15:51 - Constitutional Appears: No Acute Distress - Eye Exam Eye Exam: absent: Conjunctival injection - ENT Exam ENT Exam: Mucous Membranes Moist - Neck Exam Neck Exam: absent: Lymphadenopathy - Extremities Exam Extremities Exam: absent: Calf Tenderness - Back Exam Back Exam: absent: CVA tenderness (L), CVA tenderness (R) - Neurological Exam Neurological Exam: Altered - Skin Skin Exam: absent: Cyanosis Assessment and Plan (1) Atrial fibrillation with RVR Status: Acute (2) ESRD (end stage renal disease) Status: Chronic (3) Anemia Status: Chronic (4) Chronic kidney disease, stage IV (severe) Assessment & Plan: Chronic kidney disease stage IV Patient OFF dialysis Anemia Atrial fibrillation with controlled heart rate Overall patient improving and doing much better Recommendation Continue monitoring Hemoglobin dropping patient patient needs a blood transfusion discussed with the medical equipment sales continue EPO Status: Acute
[2018-10-28] MEDS: Bacitracin 500 Units/gm Oint Foilpak UD TOP SCH (09:26)
--- NOTE | 2018-10-28 11:42 | CP.PCM.PN ---
<Chris Vazquez - Last Filed: 10/28/18 12:11> Subjective - Date & Time of Evaluation Date of Evaluation: 10/28/18 (655) Time of Evaluation: 06:55 - Subjective Subjective: Patient seen and examined this morning at bedside with Dr. Tineo. NAD, No acute event overnight, Alert and awake this morning. C/w Blood transfusion. Poor PO intake, good UO/[id number] patient's daughter, Gema Dang Tel # [phone] Objective - Vital Signs/Intake and Output Vital Signs (last 24 hours): Temp Pulse Resp BP Pulse Ox 98.1 F 87 18 107/70 99 10/28/18 10:26 10/28/18 10:26 10/28/18 10:26 10/28/18 10:26 10/28/18 07:54 Intake and Output: 10/28/18 10/28/18 06:59 18:59 Intake Total 1000 325 Output Total 900 1700 Balance 100 -1375 - Medications Medications: Current Medications Bacitracin (Bacitracin) 1 ea TOP DAILY [facility] Last Admin: 10/28/18 09:26 Dose: 1 ea Epoetin Charles (Procrit) 10,000 unit SC TTS [facility] Last Admin: 10/27/18 09:48 Dose: 10,000 unit Lactic Acid (Lac-Hydrin 12% Lotion (225 G)) 1 applic TOP BID [facility] Last Admin: 10/28/18 09:26 Dose: 1 applic Losartan Potassium (Cozaar) 50 mg PO DAILY [facility] Last Admin: 09/27/18 15:20 Dose: Not Given Metoprolol Tartrate (Lopressor) 50 mg PO Q12 [facility] Last Admin: 10/28/18 09:30 Dose: 50 mg - Labs Labs: 10/27/18 08:01 10/27/18 08:01 PT 12.9 Seconds (9.8-13.1) 10/22/18 15:51 INR 1.1 10/22/18 15:51 APTT 31.5 Seconds (25.6-37.1) 10/22/18 15:51 - Constitutional Appears: No Acute Distress - Head Exam Head Exam: NORMAL INSPECTION - Eye Exam Eye Exam: Normal appearance - ENT Exam ENT Exam: Mucous Membranes Moist - Neck Exam Neck Exam: Normal Inspection - Respiratory Exam Respiratory Exam: Clear to Ausculation Bilateral, NORMAL BREATHING PATTERN - Cardiovascular Exam Cardiovascular Exam: REGULAR RHYTHM - GI/Abdominal Exam GI & Abdominal Exam: Soft, Normal Bowel Sounds. absent: Tenderness - Exam Additional comments: Banks placed, no bleed in urine - Extremities Exam Extremities Exam: absent: Tenderness - Neurological Exam Neurological Exam: Alert, Awake - Psychiatric Exam Psychiatric exam: Normal Affect - Skin Skin Exam: Normal Color Assessment and Plan - Assessment and Plan (Free Text) Assessment: A/P: 77 year old Male with PMHx of HTN, Atrial fibrillation, CHF (EF: 60%) and ESRD is admitted for anemia, ESRD, hematuria and a-fib. Psychiatry was consulted and patient does not have medical decision making capacity. Awaiting legal guardianship for safe disposition. S/p cystoscopy on 10/24/18, CBI clamped last night and Banks draining spence colored urine. CBC shows H&H 7.2/21.6 this morning. Anemia, likely due to hematuria -acute on chronic -likely 2/2 to ESRD, hematuria, malignancy -s/p 2 units of PRBC on 09/29, on epo per nephro (total 4pRBCs) -s/p cystoscopy on 11/21/18 -2pRBCs transfusion today -continue to monitor -f/u cbc Major Neurocognitive disorder - Psych consult --Dr. Morales, rec appreciated. - Patient does not have medical decision making capacity -Patient's daughter Gema Dang tel#[phone] is in charge of medical decision making A fib w/ RVR -Cardiology on consulted; recs appreciated, will notify if anything changes -C/w Metoprolol Tartrate 50mg PO Q12H UTI-ESBL/Hematuria (gross) -ID consulted; recs appreciated -urology consulted; hematuria follow up recs -repeat Ucx is negative on 10/06/18. Not getting his IV Abx since 10/04/18 ) Hx ESRD, now CKD Stage 4 -acute on chronic -2/2 to interstitial renal disease, granulomatosis polyangiitis -Nephrology on board -s/p tunnel cath placed on 09/26 and removed on 10/25/18 -No HD for now as per Nephro -GFR and electrolytes stable C. diff pos -Resolved -completed a course of PO vancomycin -c/w probiotic -No diarrhea HTN/CHF -chronic, controlled -hold Losartan DVT prophylaxis: SCD for now Plan discussed with Dr. Tineo <Hans Tineo - Last Filed: 10/30/18 16:56> Objective - Vital Signs/Intake and Output Vital Signs (last 24 hours): Temp Pulse Resp BP Pulse Ox 97.9 F 91 H 18 117/69 99 10/30/18 16:17 10/30/18 16:17 10/30/18 16:17 10/30/18 16:17 10/30/18 16:17 Intake and Output: 10/30/18 10/30/18 11:59 23:59 Output Total 1800 Balance -1800 - Medications Medications: Current Medications Bacitracin (Bacitracin) 1 ea TOP DAILY [facility] Last Admin: 10/30/18 08:22 Dose: 1 ea Epoetin Charles (Procrit) 10,000 unit SC TTS [facility] Last Admin: 10/29/18 11:17 Dose: 10,000 unit Lactic Acid (Lac-Hydrin 12% Lotion (225 G)) 1 applic TOP BID [facility] Last Admin: 10/30/18 16:02 Dose: 1 applic Losartan Potassium (Cozaar) 50 mg PO DAILY [facility] Last Admin: 09/27/18 15:20 Dose: Not Given Metoprolol Tartrate (Lopressor) 50 mg PO Q12 [facility] Last Admin: 10/30/18 08:23 Dose: 50 mg - Labs Labs: 10/29/18 05:01 10/29/18 05:01 PT 12.9 Seconds (9.8-13.1) 10/22/18 15:51 INR 1.1 10/22/18 15:51 APTT 31.5 Seconds (25.6-37.1) 10/22/18 15:51 Assessment and Plan - Assessment and Plan (Free Text) Assessment: Patient was personally seen and examined by me in rounds with residents. Available labs and diagnostic data reviewed. Case, Patient's condition and management plan discussed with residents in rounds. Agree with resident's progress note. Plan: As ordered.
--- NOTE | 2018-10-28 12:01 | CP.PCM.PN ---
Subjective - Date & Time of Evaluation Date of Evaluation: 10/28/18 Time of Evaluation: 12:00 - Subjective Subjective: No significant changes clinically patient is sitting up and eating okay vital signs stable Objective - Vital Signs/Intake and Output Vital Signs (last 24 hours): Temp Pulse Resp BP Pulse Ox 98.1 F 87 18 107/70 99 10/28/18 10:26 10/28/18 10:26 10/28/18 10:26 10/28/18 10:26 10/28/18 07:54 Intake and Output: 10/28/18 10/28/18 06:59 18:59 Intake Total 1000 325 Output Total 900 1700 Balance 100 -1375 - Medications Medications: Current Medications Bacitracin (Bacitracin) 1 ea TOP DAILY [facility] Last Admin: 10/28/18 09:26 Dose: 1 ea Epoetin Charles (Procrit) 10,000 unit SC TTS [facility] Last Admin: 10/27/18 09:48 Dose: 10,000 unit Lactic Acid (Lac-Hydrin 12% Lotion (225 G)) 1 applic TOP BID [facility] Last Admin: 10/28/18 09:26 Dose: 1 applic Losartan Potassium (Cozaar) 50 mg PO DAILY [facility] Last Admin: 09/27/18 15:20 Dose: Not Given Metoprolol Tartrate (Lopressor) 50 mg PO Q12 [facility] Last Admin: 10/28/18 09:30 Dose: 50 mg - Labs Labs: 10/27/18 08:01 10/27/18 08:01 PT 12.9 Seconds (9.8-13.1) 10/22/18 15:51 INR 1.1 10/22/18 15:51 APTT 31.5 Seconds (25.6-37.1) 10/22/18 15:51 - Constitutional Appears: No Acute Distress - Eye Exam Eye Exam: absent: Conjunctival injection - ENT Exam ENT Exam: Mucous Membranes Moist - Respiratory Exam Respiratory Exam: NORMAL BREATHING PATTERN - Cardiovascular Exam Cardiovascular Exam: absent: Gallop, Rubs - GI/Abdominal Exam GI & Abdominal Exam: Soft, Normal Bowel Sounds - Extremities Exam Extremities Exam: absent: Calf Tenderness - Back Exam Back Exam: absent: CVA tenderness (L), CVA tenderness (R) - Neurological Exam Neurological Exam: Altered, Awake - Skin Skin Exam: absent: Cyanosis Assessment and Plan (1) Atrial fibrillation with RVR Status: Acute (2) ESRD (end stage renal disease) Status: Chronic (3) Anemia Status: Chronic (4) Chronic kidney disease, stage IV (severe) Assessment & Plan: Chronic kidney disease stage IV Patient OFF dialysis Anemia Atrial fibrillation with controlled heart rate Overall patient improving and doing much better Recommendation Continue monitoring Hemoglobin dropping patient patient needs a blood transfusion as discussed with the medical transcription editor yesterday continue EPO Status: Acute
[2018-10-28 14:07] LABS: CALCIUM 7.7 mg/dL (8.4-10.2)
[2018-10-28 14:10] LABS: MEAN CELL VOLUME 90.7 fl (80.0-94.0); MEAN CORPUSCULAR HEMOGLOBIN 30.4 pg (27.0-31.0); MEAN CORPUSCULAR HGB CONC 33.5 g/dL (33.0-37.0); RBC 3.09 Mil/uL (4.40-5.90); RED CELL DISTRIBUTION WIDTH 18.4 % (11.5-14.5); WHITE BLOOD COUNT 5.8 K/uL (4.8-10.8)
[2018-10-28 14:14] LABS: HEMOGLOBIN 9.4 g/dL (12.0-18.0)
[2018-10-29 06:20] LABS: HEMOGLOBIN 9.6 g/dL (12.0-18.0); MEAN CELL VOLUME 92.9 fl (80.0-94.0); MEAN CORPUSCULAR HEMOGLOBIN 30.6 pg (27.0-31.0); RBC 3.12 Mil/uL (4.40-5.90); RED CELL DISTRIBUTION WIDTH 19.2 % (11.5-14.5); WHITE BLOOD COUNT 5.6 K/uL (4.8-10.8)
[2018-10-29] MEDS: Bacitracin 500 Units/gm Oint Foilpak UD TOP SCH (08:41)
[2018-10-29] MEDS: EPOETIN ALFA 10,000 UNIT/ML ML SC SCH (11:17)
--- NOTE | 2018-10-29 11:25 | PN ---
DATE: 10/29/2018 SUBJECTIVE: The patient is seen and examined. Interim events noted. Consults noted and appreciated. Nephrology followup and intervention noted and appreciated. The patient remains in regular medical floor with bladder irrigation. Sleeping, arousable, feels okay. Denies any specific complaints. The patient is not able to provide informative history or review of system. No specific issue reported by nursing staff. PHYSICAL EXAMINATION: GENERAL: The patient is in no acute distress. VITAL SIGNS: Stable. HEART: S1 and S2 normal and regular. LUNGS: Good bilateral air exchange. ABDOMEN: Soft, nontender. No suprapubic tenderness. EXTREMITIES: No edema. No calf swelling. No tenderness. No acute ischemia. CENTRAL NERVOUS SYSTEM: Exam is essentially unchanged. DIAGNOSTIC DATA: Available diagnostic data reviewed. ASSESSMENT AND PLAN: Overall, the patient is medically and hemodynamically stable. Hemoglobin is 9.2. Plan as ordered. Hans Tineo MD
--- NOTE | 2018-10-29 13:58 | CP.PCM.PN ---
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 last Hb 9.6, on ESAs BP control with meds as ordered. Glycemic control, renal diet Further work up/management as per primary team Dose meds/antibiotics (if needed) for ESRD status. Avoid fleets enema/magnesium based laxatives. Thanks for allowing me to participate in care of your patient. Will follow patient with you. Please call if any Qs Dr Dominguez Nix Office: [phone] Subjective: Noted events overnight. Patients feels okay. Denies chest pain, palpitation, shortness of breath, leg swelling. All other negative Physical Examination: General Appearance: Comfortable, in no acute respiratory distress, co-operative . Vitals reviewed and noted as below Head; Atraumatic, normocephalic ENT: no ulcers no thrush. Tongue is midline. Oropharynx: no rash or ulcers. EYES: Pupils are equal, round and reactive to light accommodation. Eye muscles and extraocular movement intact. Sclera is anicteric. Neck; supple no lymphadenopathy, no thyromegaly or bruit Lungs: Normal respiratory rate/effort. Breath sounds bilateral equal and clear Heart: Normal rate. s1s2 normal. No rub or gallop. Extremities: no edema. No varicose veins Neurological: Patient is alert, awake and oriented No focal deficit. Strength bilateral appropriate and equal Skin: Warm and dry. Normal turgor. No rash. Palpitation: Normal elasticity for age Abdomen: Abdomen is soft. Bowel sounds +. There is no abdominal tenderness, no guarding/rigidity or organomegaly Psych: lack insight and normal affect/mood MSK: no joint tenderness or swelling. Digits and nails normal, no deformity : kidney or bladder not palpable Labs/imaging reviewed. Past medical history, past surgical history, family history, social history, allergy reviewed and noted as below Family Hx: no hx of CKD. Non contributory Objective - Vital Signs/Intake and Output Vital Signs (last 24 hours): Temp Pulse Resp BP Pulse Ox 97.5 F L 93 H 19 105/63 100 10/29/18 08:26 10/29/18 08:42 10/29/18 08:26 10/29/18 08:42 10/29/18 08:26 - Medications Medications: Current Medications Bacitracin (Bacitracin) 1 ea TOP DAILY [facility] Last Admin: 10/29/18 08:41 Dose: 1 ea Epoetin Charles (Procrit) 10,000 unit SC TTS [facility] Last Admin: 10/29/18 11:17 Dose: 10,000 unit Lactic Acid (Lac-Hydrin 12% Lotion (225 G)) 1 applic TOP BID [facility] Last Admin: 10/29/18 08:42 Dose: 1 applic Losartan Potassium (Cozaar) 50 mg PO DAILY [facility] Last Admin: 09/27/18 15:20 Dose: Not Given Metoprolol Tartrate (Lopressor) 50 mg PO Q12 [facility] Last Admin: 10/29/18 08:42 Dose: 50 mg - Labs Labs: 10/29/18 05:01 10/29/18 05:01 PT 12.9 Seconds (9.8-13.1) 10/22/18 15:51 INR 1.1 10/22/18 15:51 APTT 31.5 Seconds (25.6-37.1) 10/22/18 15:51
[2018-10-30] MEDS: Bacitracin 500 Units/gm Oint Foilpak UD TOP SCH (08:22)
--- NOTE | 2018-10-30 12:27 | CP.PCM.PN ---
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 last Hb 9.6, on ESAs BP control with meds as ordered. Glycemic control, renal diet Further work up/management as per primary team Dose meds/antibiotics (if needed) for ESRD status. Avoid fleets enema/magnesium based laxatives. Thanks for allowing me to participate in care of your patient. Will follow patient with you. Please call if any Qs Dr Dominguez Nix Office: [phone] Subjective: Noted events overnight. Patients feels same Denies chest pain, palpitation, shortness of breath, leg swelling. All other negative Physical Examination: General Appearance: Comfortable, in no acute respiratory distress, co-operative . Vitals reviewed and noted as below Head; Atraumatic, normocephalic ENT: no ulcers no thrush. Tongue is midline. Oropharynx: no rash or ulcers. EYES: Pupils are equal, round and reactive to light accommodation. Eye muscles and extraocular movement intact. Sclera is anicteric. Neck; supple no lymphadenopathy, no thyromegaly or bruit Lungs: Normal respiratory rate/effort. Breath sounds bilateral equal and clear Heart: Normal rate. s1s2 normal. No rub or gallop. Extremities: no edema. No varicose veins Neurological: Patient is alert, awake and oriented No focal deficit. Strength b ilateral appropriate and equal Skin: Warm and dry. Normal turgor. No rash. Palpitation: Normal elasticity for age Abdomen: Abdomen is soft. Bowel sounds +. There is no abdominal tenderness, no guarding/rigidity or organomegaly Psych: lack insight and normal affect/mood MSK: no joint tenderness or swelling. Digits and nails normal, no deformity : kidney or bladder not palpable Labs/imaging reviewed. Past medical history, past surgical history, family history, social history, allergy reviewed and noted as below Family Hx: no hx of CKD. Non contributory Objective - Vital Signs/Intake and Output Vital Signs (last 24 hours): Temp Pulse Resp BP Pulse Ox 98.1 F 95 H 19 116/84 99 10/30/18 08:17 10/30/18 08:23 10/30/18 08:17 10/30/18 08:23 10/30/18 08:17 Intake and Output: 10/30/18 10/30/18 06:59 18:59 Intake Total 3000 Output Total 3300 Balance -300 - Medications Medications: Current Medications Bacitracin (Bacitracin) 1 ea TOP DAILY [facility] Last Admin: 10/30/18 08:22 Dose: 1 ea Epoetin Charles (Procrit) 10,000 unit SC TTS [facility] Last Admin: 10/29/18 11:17 Dose: 10,000 unit Lactic Acid (Lac-Hydrin 12% Lotion (225 G)) 1 applic TOP BID [facility] Last Admin: 10/30/18 08:23 Dose: 1 applic Losartan Potassium (Cozaar) 50 mg PO DAILY [facility] Last Admin: 09/27/18 15:20 Dose: Not Given Metoprolol Tartrate (Lopressor) 50 mg PO Q12 [facility] Last Admin: 10/30/18 08:23 Dose: 50 mg - Labs Labs: 10/29/18 05:01 10/29/18 05:01 PT 12.9 Seconds (9.8-13.1) 10/22/18 15:51 INR 1.1 10/22/18 15:51 APTT 31.5 Seconds (25.6-37.1) 10/22/18 15:51
[2018-10-31 07:22] LABS: HEMOGLOBIN 9.7 g/dL (12.0-18.0); INR 1.1; MEAN CELL VOLUME 92.6 fl (80.0-94.0); MEAN CORPUSCULAR HEMOGLOBIN 30.4 pg (27.0-31.0); MEAN CORPUSCULAR HGB CONC 32.9 g/dL (33.0-37.0); PROTHROMBIN TIME 12.8 Seconds (9.8-13.1); RBC 3.19 Mil/uL (4.40-5.90); RED CELL DISTRIBUTION WIDTH 18.9 % (11.5-14.5); WHITE BLOOD COUNT 6.2 K/uL (4.8-10.8)
[2018-10-31 07:25] LABS: ALB/GLOB RATIO 0.5 (1.0-2.1); ALBUMIN 1.9 g/dL (3.5-5.0); CALCIUM 7.8 mg/dL (8.4-10.2)
--- NOTE | 2018-10-31 08:22 | PN ---
DATE: 10/30/2018 SUBJECTIVE: The patient seen and examined. Interim events noted. Consults noted and appreciated. The patient remains on regular medical floor. The patient feels okay. Denies any specific complaint. No chest pain or shortness of breath. PHYSICAL EXAMINATION: GENERAL: The patient is in no acute distress. VITAL SIGNS: Stable. HEART: S1 and S2, normal, regular. LUNGS: Good bilateral air exchange. ABDOMEN: Soft, nontender. EXTREMITIES: No edema, no calf swelling or tenderness. No ischemia. CENTRAL NERVOUS SYSTEM: Essentially unchanged. DIAGNOSTIC DATA: Available diagnostic data reviewed. ASSESSMENT AND PLAN: Overall, the patient is medically stable. Plan as ordered. Hans Tineo MD
[2018-10-31] MEDS: Bacitracin 500 Units/gm Oint Foilpak UD TOP SCH (08:40)
--- NOTE | 2018-10-31 09:48 | PN ---
DATE: 10/31/2018 SUBJECTIVE: The patient seen and examined. Interim events noted. Consults noted and appreciated. The patient is tentatively scheduled for urologic procedure today. There is no update on patient's history and physical. The history and physical should be adequate as a preop requirement for this procedure. The patient is sleeping and arousable, feels okay. Denies any specific complaint. No specific issue reported by nursing staff. PHYSICAL EXAMINATION: GENERAL: The patient is in no acute distress. VITAL SIGNS: Stable. HEART: S1 and S2 normal and regular. LUNGS: Good bilateral air exchange. ABDOMEN: Soft and nontender. EXTREMITIES: No edema. No calf swelling. No tenderness. No acute ischemia. CENTRAL NERVOUS SYSTEM: Essentially unchanged. DIAGNOSTIC DATA: Available diagnostic data reviewed. ASSESSMENT AND PLAN: Overall, the patient is medically stable for proposed surgery and requires anesthesia. There is no medical contraindication . The patient's blood test done yesterday is reviewed and is acceptable. As mentioned earlier, the patient's history and physical also is adequate to the ones that was done unofficially. Plan as ordered. Hans Tineo MD
--- NOTE | 2018-10-31 10:21 | CP.PCM.PN ---
Subjective - Date & Time of Evaluation Date of Evaluation: 10/31/18 Time of Evaluation: 10:23 - Subjective Subjective: No significant changes medically Vital signs stable Objective - Vital Signs/Intake and Output Vital Signs (last 24 hours): Temp Pulse Resp BP Pulse Ox 97.6 F 95 H 19 126/76 100 10/31/18 08:17 10/31/18 08:40 10/31/18 08:17 10/31/18 08:40 10/31/18 08:17 Intake and Output: 10/31/18 10/31/18 06:59 18:59 Intake Total 100 Output Total 1250 Balance -1150 - Medications Medications: Current Medications Bacitracin (Bacitracin) 1 ea TOP DAILY [facility] Last Admin: 10/31/18 08:40 Dose: 1 ea Epoetin Charles (Procrit) 10,000 unit SC TTS [facility] Last Admin: 10/29/18 11:17 Dose: 10,000 unit Lactic Acid (Lac-Hydrin 12% Lotion (225 G)) 1 applic TOP BID [facility] Last Admin: 10/31/18 08:40 Dose: 1 applic Losartan Potassium (Cozaar) 50 mg PO DAILY [facility] Last Admin: 09/27/18 15:20 Dose: Not Given Metoprolol Tartrate (Lopressor) 50 mg PO Q12 [facility] Last Admin: 10/31/18 08:40 Dose: 50 mg - Labs Labs: 10/31/18 06:50 10/31/18 06:50 PT 12.8 Seconds (9.8-13.1) 10/31/18 06:50 INR 1.1 10/31/18 06:50 APTT 31.5 Seconds (25.6-37.1) 10/22/18 15:51 - Constitutional Appears: No Acute Distress - Eye Exam Eye Exam: Conjunctival injection - ENT Exam ENT Exam: Mucous Membranes Moist - Neck Exam Neck Exam: Lymphadenopathy - Respiratory Exam Respiratory Exam: NORMAL BREATHING PATTERN. 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 Recommendation Hemoglobin up posttransfusion 9.7 [facility] 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 This is summary of previous admission multitude of medical problem gross hematuria severe anemia prostatic CA status post multiple cystoscopy previous admission Also for history when the patient was diagnosed with the above diagnosis he has a following treatment previous admission Pulses steroid for 3 days Rituximab 1 g twice 4 weeks apart Oral steroid Plasma phoresis And the patient continued to need dialysis s/p Amicar drip s/p cryopercipitate transfusion; goal fibrinogen > 200 - has been stable after transfusion s/p ddavp s/p vit k Status: Chronic (3) Anemia Status: Chronic (4) Chronic kidney disease, stage IV (severe) Status: Acute
[2018-10-31] MEDS ORDERED: cefTRIAXone (Rocephin) 1 gm Inj ONE (11:09)
[2018-10-31] MEDS ORDERED: Propofol 10 mg/ml Inj (20 ML) ONE (12:00)
[2018-10-31] MEDS ORDERED: Midazolam 2 MG/2 ML VIAL ONE (12:00)
[2018-10-31] MEDS ORDERED: Etomidate 20 mg/10ml Inj IV ONE (12:02)
[2018-10-31] MEDS ORDERED: Sodium Chloride 0.9% 500 ML IV ONE (12:30)
[2018-10-31] MEDS ORDERED: Lactated Ringer's 500 ML IV ONE (12:30)
[2018-10-31] MEDS ORDERED: ePHEDrine 50 mg/ml Inj ONE (13:12)
[2018-10-31] MEDS ORDERED: Phenylephrine 10 mg/ml Inj ONE (13:13)
[2018-10-31] MEDS ORDERED: Lactated Ringer's 1,000 ML IV SCH (13:45)
[2018-10-31] MEDS: Sodium Chloride 0.45% 1,000 ML IV SCH (17:43)
--- NOTE | 2018-10-31 23:26 | OP ---
PROCEDURE DATE: 10/31/2018 PREOPERATIVE DIAGNOSIS: Gross hematuria. POSTOPERATIVE DIAGNOSIS: Hemorrhagic prostate. PROCEDURE PERFORMED: Cystoscopy with prostatic urethral fulguration. SURGEON: Yessy Jeffries MD DESCRIPTION OF PROCEDURE: The patient was placed on the operating room table in a dorsal lithotomy position. The area of the groin was draped and prepped using sterile manner. Under direct vision, I placed a # 24 continuous flow resectoscope per urethra into the bladder. The bladder had just some areas of edema from secondary long-term Banks catheter, but when I cut the could see that the bleeding was oozing from the dome of the prostatic urethra, and in one area, especially in the patient's left lateral side of the prostate. I was able to fulgurate these areas quite deeply, and at the end of the procedure, I see no active bleeding, and decided at this time, not to leave the Banks catheter because I am going to assume that the friction of the catheter might re-initiate bleeding and so for now, I would like to see if we can manage this patient without a catheter. The patient was taken from the operating room in good condition. Yessy Jeffries MD
[2018-11-01] MEDS: Sodium Chloride 0.45% 1,000 ML IV SCH ×2 (03:31→13:00)
[2018-11-01] MEDS: EPOETIN ALFA 10,000 UNIT/ML ML SC SCH (08:48)
[2018-11-01] MEDS: Bacitracin 500 Units/gm Oint Foilpak UD TOP SCH (08:49)
--- NOTE | 2018-11-01 10:51 | CP.PCM.PN ---
Subjective - Date & Time of Evaluation Date of Evaluation: 11/01/18 Time of Evaluation: 07:35 - Subjective Subjective: PT. is stable S/P cysto monitor Hbg Objective - Vital Signs/Intake and Output Vital Signs (last 24 hours): Temp Pulse Resp BP Pulse Ox 98.2 F 93 H 20 110/67 98 11/01/18 09:00 11/01/18 09:00 11/01/18 09:00 11/01/18 09:00 11/01/18 09:00 - Medications Medications: Current Medications Bacitracin (Bacitracin) 1 ea TOP DAILY [facility] Last Admin: 11/01/18 08:49 Dose: 1 ea Epoetin Charles (Procrit) 10,000 unit SC TTS [facility] Last Admin: 11/01/18 08:48 Dose: 10,000 unit Sodium Chloride (Sodium Chloride 0.45%) 1,000 mls @ 100 mls/hr IV .Q10H [facility] Stop: 11/01/18 15:09 Last Admin: 11/01/18 03:31 Dose: 100 mls/hr Lactic Acid (Lac-Hydrin 12% Lotion (225 G)) 1 applic TOP BID [facility] Last Admin: 11/01/18 08:49 Dose: 1 applic Losartan Potassium (Cozaar) 50 mg PO DAILY [facility] Last Admin: 09/27/18 15:20 Dose: Not Given Metoprolol Tartrate (Lopressor) 50 mg PO Q12 [facility] Last Admin: 11/01/18 08:49 Dose: 50 mg - Labs Labs: 10/31/18 06:50 10/31/18 06:50 PT 12.8 Seconds (9.8-13.1) 10/31/18 06:50 INR 1.1 10/31/18 06:50 APTT 31.5 Seconds (25.6-37.1) 10/22/18 15:51 - Constitutional Appears: No Acute Distress - ENT Exam ENT Exam: Mucous Membranes Moist - Cardiovascular Exam Cardiovascular Exam: absent: Gallop, JVD, Rubs - GI/Abdominal Exam GI & Abdominal Exam: Soft, Normal Bowel Sounds - Extremities Exam Extremities Exam: absent: Calf Tenderness - Back Exam Back Exam: absent: CVA tenderness (L), CVA tenderness (R) - Neurological Exam Neurological Exam: Awake Assessment and Plan (1) Atrial fibrillation with RVR Status: Acute (2) ESRD (end stage renal disease) Status: Chronic (3) Anemia Status: Chronic (4) Chronic kidney disease, stage IV (severe) Assessment & Plan: Hypertensive Chronic Kidney Disease (I12.0) CKD 4, off HD Anemia (D64.9), A fib 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 S/P cysto, Recommendation Hemoglobin up posttransfusion 9.7 [facility] 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
--- NOTE | 2018-11-02 07:45 | CP.PCM.PN ---
<Chris Vazquez - Last Filed: 11/02/18 10:16> Subjective - Date & Time of Evaluation Date of Evaluation: 11/02/18 Time of Evaluation: 07:30 - Subjective Subjective: Patient seen and examined this morning at bedside with Dr. Tineo. NAD, No acute event overnight, Alert and awake this morning but no capacity. Poor PO intake and continues hematuria/ blood in hadley. Patient is s/p Cystoscopy. patient's daughter, Gema Dang Tel # [phone] Objective - Vital Signs/Intake and Output Vital Signs (last 24 hours): Temp Pulse Resp BP Pulse Ox 97.8 F 102 H 20 111/72 99 11/01/18 23:46 11/01/18 23:46 11/01/18 23:46 11/01/18 23:46 11/01/18 23:46 - Medications Medications: Current Medications Bacitracin (Bacitracin) 1 ea TOP DAILY [facility] Last Admin: 11/01/18 08:49 Dose: 1 ea Epoetin Charles (Procrit) 10,000 unit SC TTS [facility] Last Admin: 11/01/18 08:48 Dose: 10,000 unit Lactic Acid (Lac-Hydrin 12% Lotion (225 G)) 1 applic TOP BID [facility] Last Admin: 11/01/18 16:56 Dose: 1 applic Losartan Potassium (Cozaar) 50 mg PO DAILY [facility] Last Admin: 09/27/18 15:20 Dose: Not Given Metoprolol Tartrate (Lopressor) 50 mg PO Q12 [facility] Last Admin: 11/01/18 08:49 Dose: 50 mg - Labs Labs: 10/31/18 06:50 10/31/18 06:50 PT 12.8 Seconds (9.8-13.1) 10/31/18 06:50 INR 1.1 10/31/18 06:50 APTT 31.5 Seconds (25.6-37.1) 10/22/18 15:51 - Constitutional Appears: No Acute Distress - Head Exam Head Exam: NORMAL INSPECTION - Eye Exam Eye Exam: Normal appearance Pupil Exam: NORMAL ACCOMODATION - ENT Exam ENT Exam: Mucous Membranes Moist - Neck Exam Neck Exam: Normal Inspection - Respiratory Exam Respiratory Exam: Clear to Ausculation Bilateral, NORMAL BREATHING PATTERN - Cardiovascular Exam Cardiovascular Exam: Tachycardia, Irregular Rhythm, +S1, +S2 - GI/Abdominal Exam GI & Abdominal Exam: Soft, Normal Bowel Sounds - Exam Exam: absent: Uretheral Discharge, Bladder Distension Additional comments: Hematuria - Extremities Exam Extremities Exam: Full ROM, Normal Inspection - Back Exam Back Exam: NORMAL INSPECTION - Neurological Exam Neurological Exam: Alert, Awake, Oriented x3 - Psychiatric Exam Psychiatric exam: Normal Affect - Skin Skin Exam: Normal Color Assessment and Plan - Assessment and Plan (Free Text) Assessment: A/P: 77 year old Male with PMHx of HTN, Atrial fibrillation, CHF (EF: 60%) and ESRD is admitted for anemia, ESRD, hematuria and a-fib. Psychiatry was consulted and patient does not have medical decision making capacity. S/p cystoscopy on 10/24/18 and 10/31, + hematuria, hadley placed. Anemia, likely due to hematuria -acute on chronic -likely 10/01 to ESRD, hematuria, malignancy -s/p multiple PRBC, C/w Procrit -s/p cystoscopy on 10/24 and 10/31 -continue to monitor -f/u cbc Major Neurocognitive disorder -Psych consult --Dr. Morales, rec appreciated. -Patient does not have medical decision making capacity -Patient's daughter Gema Dang tel#[phone] is in charge of medical decision making A fib w/ RVR -Cardiology on consulted; recs appreciated, will notify if anything changes -C/w Metoprolol Tartrate 50mg PO Q12H UTI-ESBL/Hematuria (gross) -ID consulted; recs appreciated -urology consulted; hematuria follow up recs -repeat Ucx is negative on 10/06/18. 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 diff pos -Resolved -completed a course of PO vancomycin -c/w probiotic -No diarrhea HTN/CHF -chronic, controlled -hold Losartan (Controlled w/o med) DVT prophylaxis: SCD for now <Hans Tineo K - Last Filed: 11/10/18 11:47> Objective - Vital Signs/Intake and Output Vital Signs (last 24 hours): Temp Pulse Resp BP Pulse Ox 97.5 F L 112 H 20 115/83 99 11/09/18 16:00 11/09/18 16:00 11/09/18 16:00 11/09/18 16:00 11/09/18 16:00 - Labs Labs: 11/09/18 05:51 11/09/18 05:51 PT 12.8 Seconds (9.8-13.1) 10/31/18 06:50 INR 1.1 10/31/18 06:50 APTT 31.5 Seconds (25.6-37.1) 10/22/18 15:51 Assessment and Plan - Assessment and Plan (Free Text) Assessment: Patient was personally seen and examined by me in rounds with residents. Available labs and diagnostic data reviewed. Case, Patient's condition and management plan discussed with residents in rounds. Agree with resident's progress note. Plan: As ordered.
--- NOTE | 2018-11-02 07:47 | CP.PCM.CON ---
History of Present Illness - History of Present Illness History of Present Illness: Psychiatry consult follow-up note CC: Neurocognitive impairment HPI: 77 yo male, alf resident, admitted w/ hypotension, sepsis, UTI, continues to only be oriented x self. He can not provide any accurate history or information. He is not able to explain why he is the hospital and he can not weigh the risks/benefits of treatment. Pt denies depression/anxiety/AH/VH/SI/HI. 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 -Patient does not have capacity to make medical decisions at this time -No acute psychiatric medications or psychiatric admission indicated at this time Past Patient History - Infectious Disease Hx of Infectious Diseases: None - Past Medical History & Family History Past Medical History?: Yes - Past Social History Smoking Status: Former Smoker - CARDIAC Hx Atrial Fibrillation: Yes Hx Congestive Heart Failure: Yes Hx Hypertension: Yes - PULMONARY Hx Respiratory Disorders: No - NEUROLOGICAL Hx Neurological Disorder: No - HEENT Hx HEENT Problems: Yes - RENAL Hx Chronic Kidney Disease: Yes - ENDOCRINE/METABOLIC Hx Endocrine Disorders: Yes - HEMATOLOGICAL/ONCOLOGICAL Hx AIDS: No Hx Anemia: Yes Hx Human Immunodeficiency Virus (HIV): No - INTEGUMENTARY Hx Dermatological Problems: No - MUSCULOSKELETAL/RHEUMATOLOGICAL Hx Arthritis: Yes Hx Falls: Yes - GASTROINTESTINAL Hx Gastrointestinal Disorders: No - GENITOURINARY/GYNECOLOGICAL Hx Genitourinary Disorders: Yes (RETENTION BUTLER TO SGD) - PSYCHIATRIC Hx Psychophysiologic Disorder: No Hx Substance Use: No - SURGICAL HISTORY Hx Appendectomy: Yes - ANESTHESIA Hx Anesthesia: Yes Hx Anesthesia Reactions: No Hx Malignant Hyperthermia: No Meds Allergies/Adverse Reactions: Allergies Allergy/AdvReac Type Severity Reaction Status Date / Time No Known Allergies Allergy Verified 09/24/18 09:26 - Medications Medications: Current Medications Bacitracin (Bacitracin) 1 ea TOP DAILY [facility] Last Admin: 11/01/18 08:49 Dose: 1 ea Epoetin Charles (Procrit) 10,000 unit SC TTS [facility] Last Admin: 11/01/18 08:48 Dose: 10,000 unit Lactic Acid (Lac-Hydrin 12% Lotion (225 G)) 1 applic TOP BID [facility] Last Admin: 11/01/18 16:56 Dose: 1 applic Losartan Potassium (Cozaar) 50 mg PO DAILY [facility] Last Admin: 09/27/18 15:20 Dose: Not Given Metoprolol Tartrate (Lopressor) 50 mg PO Q12 [facility] Last Admin: 11/01/18 21:00 Dose: Not Given Results - Vital Signs Recent Vital Signs: Last Vital Signs Temp 97.8 F 11/01/18 23:46 Pulse 102 H 11/01/18 23:46 Resp 20 11/01/18 23:46 BP 111/72 11/01/18 23:46 Pulse Ox 99 11/01/18 23:46 - Labs Result Diagrams: 10/31/18 06:50 10/31/18 06:50 Labs: Laboratory Results - last 24 hr 11/01/18 18:40 POC Glucose (mg/dL) 115 H
[2018-11-02] MEDS: Bacitracin 500 Units/gm Oint Foilpak UD TOP SCH (11:40)
[2018-11-02 11:57] LABS: HEMOGLOBIN 9.3 g/dL (12.0-18.0); MEAN CELL VOLUME 94.2 fl (80.0-94.0); MEAN CORPUSCULAR HEMOGLOBIN 30.9 pg (27.0-31.0); MEAN CORPUSCULAR HGB CONC 32.8 g/dL (33.0-37.0); RBC 3.03 Mil/uL (4.40-5.90); RED CELL DISTRIBUTION WIDTH 20.1 % (11.5-14.5); WHITE BLOOD COUNT 4.7 K/uL (4.8-10.8)
[2018-11-02 12:09] LABS: ALB/GLOB RATIO 0.5 (1.0-2.1); ALBUMIN 1.8 g/dL (3.5-5.0); CALCIUM 7.7 mg/dL (8.4-10.2)
--- NOTE | 2018-11-02 13:13 | CP.PCM.PN ---
Subjective - Date & Time of Evaluation Date of Evaluation: 11/02/18 Time of Evaluation: 13:12 - Subjective Subjective: No significant changes clinically. Vital signs stable Objective - Vital Signs/Intake and Output Vital Signs (last 24 hours): Temp Pulse Resp BP Pulse Ox 97.1 F L 66 20 117/76 99 11/02/18 08:38 11/02/18 11:39 11/02/18 08:38 11/02/18 11:39 11/02/18 08:38 Intake and Output: 11/02/18 11/02/18 06:59 18:59 Intake Total 50 Output Total 475 Balance -425 - Medications Medications: Current Medications Bacitracin (Bacitracin) 1 ea TOP DAILY [facility] Last Admin: 11/02/18 11:40 Dose: 1 ea Epoetin Charles (Procrit) 10,000 unit SC TTS [facility] Last Admin: 11/01/18 08:48 Dose: 10,000 unit Lactic Acid (Lac-Hydrin 12% Lotion (225 G)) 1 applic TOP BID [facility] Last Admin: 11/02/18 11:40 Dose: 1 applic Losartan Potassium (Cozaar) 50 mg PO DAILY [facility] Last Admin: 09/27/18 15:20 Dose: Not Given Metoprolol Tartrate (Lopressor) 50 mg PO Q12 [facility] Last Admin: 11/02/18 11:39 Dose: 50 mg - Labs Labs: 11/02/18 11:38 11/02/18 11:38 PT 12.8 Seconds (9.8-13.1) 10/31/18 06:50 INR 1.1 10/31/18 06:50 APTT 31.5 Seconds (25.6-37.1) 10/22/18 15:51 - Constitutional Appears: No Acute Distress - Eye Exam Eye Exam: Conjunctival injection - ENT Exam ENT Exam: Mucous Membranes Moist - Respiratory Exam Respiratory Exam: NORMAL BREATHING PATTERN - Cardiovascular Exam Cardiovascular Exam: absent: Gallop, Rubs - Extremities Exam Extremities Exam: absent: Calf Tenderness - Back Exam Back Exam: absent: CVA tenderness (L), CVA tenderness (R) Assessment and Plan (1) Atrial fibrillation with RVR Status: Acute (2) ESRD (end stage renal disease) Status: Chronic (3) Anemia Status: Chronic (4) Chronic kidney disease, stage IV (severe) Assessment & Plan: Hypertensive Chronic Kidney Disease (I12.0) CKD 4, off HD Anemia (D64.9), A fib 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
--- NOTE | 2018-11-03 07:33 | CP.PCM.PN ---
<Chris Vazquez - Last Filed: 11/03/18 10:39> Subjective - Date & Time of Evaluation Date of Evaluation: 11/03/18 Time of Evaluation: 07:30 - Subjective Subjective: Patient seen and examined this morning at bedside with Dr. Tineo. NAD, No acute event overnight, Alert and awake this morning but no capacity. Poor PO intake and continues hematuria/ blood in hadley. Patient is s/p Cystoscopy, possible radical prostatectomy in future. Objective - Vital Signs/Intake and Output Vital Signs (last 24 hours): Temp Pulse Resp BP Pulse Ox 97.3 F L 83 20 121/77 98 11/03/18 00:14 11/03/18 00:14 11/03/18 00:14 11/03/18 00:14 11/03/18 00:14 Intake and Output: 11/03/18 11/03/18 06:59 18:59 Intake Total 100 Output Total 850 Balance -750 - Medications Medications: Current Medications Bacitracin (Bacitracin) 1 ea TOP DAILY [facility] Last Admin: 11/02/18 11:40 Dose: 1 ea Dimethicone (Proshield Plus Skin Protectant) 1 applic TOP Q8 [facility] Epoetin Charles (Procrit) 10,000 unit SC TTS [facility] Last Admin: 11/01/18 08:48 Dose: 10,000 unit Ferrous Gluconate (Fergon) 324 mg PO BID [facility] Last Admin: 11/02/18 17:32 Dose: 324 mg Finasteride (Proscar) 5 mg PO DAILY [facility] Lactic Acid (Lac-Hydrin 12% Lotion (225 G)) 1 applic TOP BID [facility] Last Admin: 11/02/18 17:32 Dose: 1 applic Losartan Potassium (Cozaar) 50 mg PO DAILY [facility] Last Admin: 09/27/18 15:20 Dose: Not Given Metoprolol Tartrate (Lopressor) 50 mg PO Q12 [facility] Last Admin: 11/02/18 21:39 Dose: 50 mg Mirtazapine (Remeron) 15 mg PO HS [facility] Last Admin: 11/02/18 21:42 Dose: 15 mg Quetiapine Fumarate (Seroquel) 25 mg PO HS [facility] Last Admin: 11/02/18 21:42 Dose: 25 mg - Labs Labs: 11/02/18 11:38 11/02/18 11:38 PT 12.8 Seconds (9.8-13.1) 10/31/18 06:50 INR 1.1 10/31/18 06:50 APTT 31.5 Seconds (25.6-37.1) 10/22/18 15:51 - Constitutional Appears: No Acute Distress - Head Exam Head Exam: NORMAL INSPECTION - Eye Exam Eye Exam: Normal appearance Pupil Exam: NORMAL ACCOMODATION - ENT Exam ENT Exam: Mucous Membranes Moist - Neck Exam Neck Exam: Normal Inspection - Respiratory Exam Respiratory Exam: Clear to Ausculation Bilateral, NORMAL BREATHING PATTERN - Cardiovascular Exam Cardiovascular Exam: REGULAR RHYTHM, +S1, +S2 - GI/Abdominal Exam GI & Abdominal Exam: Soft, Normal Bowel Sounds - Exam Additional comments: hematuria in hadley - Extremities Exam Extremities Exam: Full ROM - Back Exam Back Exam: NORMAL INSPECTION - Neurological Exam Neurological Exam: Alert, Awake - Psychiatric Exam Psychiatric exam: Normal Affect - Skin Skin Exam: Normal Color Assessment and Plan - Assessment and Plan (Free Text) Assessment: A/P: 77 year old Male with PMHx of HTN, Atrial fibrillation, CHF (EF: 60%) and ESRD is admitted for anemia, ESRD, hematuria and a-fib. Psychiatry was consulted and patient does not have medical decision making capacity. S/p cystoscopy on 10/24/18 and 10/31, + hematuria, hadley placed. Anemia, likely due to hematuria -acute on chronic -likely 10/01 to ESRD, hematuria, malignancy -s/p multiple PRBC, C/w Procrit -s/p cystoscopy on 10/24 and 10/31 -Continue management as per Urology for hematuria -possible prostatectomy in future Major Neurocognitive disorder -Psych consult --Dr. Morales, rec appreciated. -Patient does not have medical decision making capacity -Patient's daughter Gema Dang tel#[phone] is in charge of medical decision making A fib w/ RVR -Cardiology on consulted; recs appreciated, will notify if anything changes -C/w Metoprolol Tartrate 50mg PO Q12H UTI-ESBL/Hematuria (gross) -ID consulted; recs appreciated -urology consulted; hematuria follow up recs -repeat Ucx is negative on 10/06/18. 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 diff pos -Resolved -completed a course of PO vancomycin -c/w probiotic -No diarrhea HTN/CHF -chronic, controlled -hold Losartan (Controlled w/o med) DVT prophylaxis: SCD for now <Hans Tineo - Last Filed: 11/10/18 11:46> Objective - Vital Signs/Intake and Output Vital Signs (last 24 hours): Temp Pulse Resp BP Pulse Ox 97.5 F L 112 H 20 115/83 99 11/09/18 16:00 11/09/18 16:00 11/09/18 16:00 11/09/18 16:00 11/09/18 16:00 - Labs Labs: 11/09/18 05:51 11/09/18 05:51 PT 12.8 Seconds (9.8-13.1) 10/31/18 06:50 INR 1.1 10/31/18 06:50 APTT 31.5 Seconds (25.6-37.1) 10/22/18 15:51 Assessment and Plan - Assessment and Plan (Free Text) Assessment: Patient was personally seen and examined by me in rounds with residents. Available labs and diagnostic data reviewed. Case, Patient's condition and management plan discussed with residents in rounds. Agree with resident's progress note. Plan: As ordered.
--- NOTE | 2018-11-03 10:10 | PN ---
DATE: 11/01/2018 SUBJECTIVE: The patient seen and examined. Interim events noted. Consults noted and appreciated. Urology followup and interventions noted and appreciated. The patient is status post procedure. The patient is awake, responsive. Feels okay. Denies any specific complaint, although the patient is not a good historian. Denies any chest pain, shortness of breath, or any abdominal pain. PHYSICAL EXAMINATION: GENERAL: The patient is in no acute distress. VITAL SIGNS: Stable. HEART: S1 and S2, normal and regular. LUNGS: Good bilateral air exchange. ABDOMEN: Soft, nontender. No organomegaly. No fluid. Bowel sounds are present and normal. No sign of acute abdomen. No guarding. No rigidity. No rebound. EXTREMITIES: No edema. No calf swelling. No tenderness. No acute ischemia. CENTRAL NERVOUS SYSTEM: Essentially unchanged. ASSESSMENT AND PLAN: The patient has a [place] catheter, which still is draining bloody urine. Operative report reviewed. The patient had fulguration of left prosthetic mesh with good results; however, there still seems to be some blood coming out. Overall, the patient is medically stable. Plan as ordered. Hans Tineo MD
[2018-11-03] MEDS: Proshield Plus GEL TOP SCH ×2 (10:17→16:44)
[2018-11-03] MEDS: Bacitracin 500 Units/gm Oint Foilpak UD TOP SCH (10:18)
[2018-11-03] MEDS: EPOETIN ALFA 10,000 UNIT/ML ML SC SCH (10:19)
--- NOTE | 2018-11-03 10:53 | CP.PCM.PN ---
Subjective - Date & Time of Evaluation Date of Evaluation: 11/03/18 Time of Evaluation: 10:52 - Subjective Subjective: No changes patient in bed communicating. Not in acute distress. Objective - Vital Signs/Intake and Output Vital Signs (last 24 hours): Temp Pulse Resp BP Pulse Ox 97.6 F 60 20 105/71 100 11/03/18 08:18 11/03/18 08:18 11/03/18 08:18 11/03/18 10:17 11/03/18 08:18 Intake and Output: 11/03/18 11/03/18 06:59 18:59 Intake Total 100 Output Total 850 Balance -750 - Medications Medications: Current Medications Bacitracin (Bacitracin) 1 ea TOP DAILY [facility] Last Admin: 11/03/18 10:18 Dose: 1 ea Dimethicone (Proshield Plus Skin Protectant) 1 applic TOP Q8 [facility] Last Admin: 11/03/18 10:17 Dose: 1 applic Epoetin Charles (Procrit) 10,000 unit SC TTS [facility] Last Admin: 11/03/18 10:19 Dose: 10,000 unit Ferrous Gluconate (Fergon) 324 mg PO BID [facility] Last Admin: 11/03/18 10:17 Dose: 324 mg Finasteride (Proscar) 5 mg PO DAILY [facility] Last Admin: 11/03/18 10:18 Dose: 5 mg Lactic Acid (Lac-Hydrin 12% Lotion (225 G)) 1 applic TOP BID [facility] Last Admin: 11/03/18 10:19 Dose: 1 applic Losartan Potassium (Cozaar) 50 mg PO DAILY [facility] Last Admin: 09/27/18 15:20 Dose: Not Given Metoprolol Tartrate (Lopressor) 50 mg PO Q12 [facility] Last Admin: 11/03/18 10:17 Dose: 50 mg Mirtazapine (Remeron) 15 mg PO HS [facility] Last Admin: 11/02/18 21:42 Dose: 15 mg Quetiapine Fumarate (Seroquel) 25 mg PO HS [facility] Last Admin: 11/02/18 21:42 Dose: 25 mg - Labs Labs: 11/02/18 11:38 11/02/18 11:38 PT 12.8 Seconds (9.8-13.1) 10/31/18 06:50 INR 1.1 10/31/18 06:50 APTT 31.5 Seconds (25.6-37.1) 10/22/18 15:51 - Constitutional Appears: No Acute Distress - Eye Exam Eye Exam: Conjunctival injection - ENT Exam ENT Exam: Mucous Membranes Moist - Respiratory Exam Respiratory Exam: NORMAL BREATHING PATTERN - Cardiovascular Exam Cardiovascular Exam: absent: Gallop, JVD - GI/Abdominal Exam GI & Abdominal Exam: Soft, Normal Bowel Sounds - Extremities Exam Extremities Exam: absent: Calf Tenderness - Back Exam Back Exam: absent: CVA tenderness (L), CVA tenderness (R) - Neurological Exam Neurological Exam: Alert, Awake - Skin Skin Exam: absent: Cyanosis Assessment and Plan (1) Atrial fibrillation with RVR Status: Acute (2) ESRD (end stage renal disease) Status: Chronic (3) Anemia Status: Chronic (4) Chronic kidney disease, stage IV (severe) Assessment & Plan: Hypertensive Chronic Kidney Disease (I12.0) CKD 4, off HD Anemia (D64.9), A fib 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
[2018-11-04] MEDS: Proshield Plus GEL TOP SCH ×3 (00:46→16:12)
[2018-11-04] MEDS: Bacitracin 500 Units/gm Oint Foilpak UD TOP SCH (08:44)
--- NOTE | 2018-11-04 09:24 | CP.PCM.PN ---
<Chris Vazquez - Last Filed: 11/04/18 09:30> Subjective - Date & Time of Evaluation Date of Evaluation: 11/04/18 Time of Evaluation: 07:45 - Subjective Subjective: Patient seen and examined this morning at bedside with Dr. Tineo. NAD, Alert and awake, verbally responsive, follows commands. No acute event overnight, denies any pain. Hematuria continues, No capacity Objective - Vital Signs/Intake and Output Vital Signs (last 24 hours): Temp Pulse Resp BP Pulse Ox 98.8 F 91 H 20 117/78 95 11/04/18 08:23 11/04/18 08:49 11/04/18 08:23 11/04/18 08:49 11/04/18 08:23 Intake and Output: 11/04/18 11/04/18 06:59 18:59 Intake Total 100 Output Total 250 Balance -150 - Medications Medications: Current Medications Bacitracin (Bacitracin) 1 ea TOP DAILY [facility] Last Admin: 11/04/18 08:44 Dose: 1 ea Dimethicone (Proshield Plus Skin Protectant) 1 applic TOP Q8 [facility] Last Admin: 11/04/18 08:43 Dose: 1 applic Epoetin Charles (Procrit) 10,000 unit SC TTS [facility] Last Admin: 11/03/18 10:19 Dose: 10,000 unit Ferrous Gluconate (Fergon) 324 mg PO BID [facility] Last Admin: 11/04/18 08:44 Dose: 324 mg Finasteride (Proscar) 5 mg PO DAILY [facility] Last Admin: 11/04/18 08:45 Dose: 5 mg Lactic Acid (Lac-Hydrin 12% Lotion (225 G)) 1 applic TOP BID [facility] Last Admin: 11/04/18 09:02 Dose: 1 applic Losartan Potassium (Cozaar) 50 mg PO DAILY [facility] Last Admin: 09/27/18 15:20 Dose: Not Given Metoprolol Tartrate (Lopressor) 50 mg PO Q12 [facility] Last Admin: 11/04/18 08:49 Dose: 50 mg Mirtazapine (Remeron) 15 mg PO HS [facility] Last Admin: 11/03/18 21:15 Dose: 15 mg Quetiapine Fumarate (Seroquel) 25 mg PO HS [facility] Last Admin: 11/03/18 21:44 Dose: 25 mg - Labs Labs: 11/02/18 11:38 11/02/18 11:38 PT 12.8 Seconds (9.8-13.1) 10/31/18 06:50 INR 1.1 10/31/18 06:50 APTT 31.5 Seconds (25.6-37.1) 10/22/18 15:51 - Constitutional Appears: No Acute Distress - Head Exam Head Exam: NORMAL INSPECTION - Eye Exam Eye Exam: Normal appearance, PERRL Pupil Exam: NORMAL ACCOMODATION - ENT Exam ENT Exam: Mucous Membranes Moist - Neck Exam Neck Exam: Normal Inspection - Respiratory Exam Respiratory Exam: Clear to Ausculation Bilateral - Cardiovascular Exam Cardiovascular Exam: REGULAR RHYTHM - GI/Abdominal Exam GI & Abdominal Exam: Soft, Normal Bowel Sounds - Exam Additional comments: Hematuria. - Back Exam Back Exam: NORMAL INSPECTION - Neurological Exam Neurological Exam: Alert, Awake - Psychiatric Exam Psychiatric exam: Normal Affect - Skin Skin Exam: Normal Color Assessment and Plan - Assessment and Plan (Free Text) Assessment: A/P: 77 year old Male with PMHx of HTN, Atrial fibrillation, CHF (EF: 60%) and ESRD is admitted for anemia, ESRD, hematuria and a-fib. Psychiatry was consulted and patient does not have medical decision making capacity. S/p cystoscopy on 10/24/18 and 10/31, + hematuria, hadley placed. Anemia, likely due to hematuria -acute on chronic -likely 10/01 to ESRD, hematuria, malignancy -s/p multiple PRBC, C/w Procrit -s/p cystoscopy on 10/24 and 10/31 -Continue management as per Urology for hematuria -possible prostatectomy in future -f/u cbc today Major Neurocognitive disorder -Psych consult --Dr. Morales, rec appreciated. -Patient does not have medical decision making capacity -C/w medications as ordered -Patient's daughter Gema Dang tel#[phone] is in charge of medical decision making A fib w/ RVR -Cardiology on consulted; recs appreciated, will notify if anything changes -C/w Metoprolol Tartrate 50mg PO Q12H UTI-ESBL/Hematuria (gross) -ID consulted; recs appreciated -urology consulted; hematuria follow up recs -repeat Ucx is negative on 10/06/18. s/p Abx Hx ESRD, now CKD Stage 4 -acute on chronic -2/2 to interstitial renal disease, granulomatosis polyangiitis -Nephrology on board -s/p tunnel cath placed on 09/26 and removed on 10/25/18 -No HD for now as per Nephro -GFR and electrolytes stable C. diff pos -Resolved -completed a course of PO vancomycin -c/w probiotic -No diarrhea HTN/CHF -chronic, controlled -hold Losartan (Controlled w/o med) DVT prophylaxis: SCD for now <Hans Tineo K - Last Filed: 11/10/18 11:42> Objective - Vital Signs/Intake and Output Vital Signs (last 24 hours): Temp Pulse Resp BP Pulse Ox 97.5 F L 112 H 20 115/83 99 11/09/18 16:00 11/09/18 16:00 11/09/18 16:00 11/09/18 16:00 11/09/18 16:00 - Labs Labs: 11/09/18 05:51 11/09/18 05:51 PT 12.8 Seconds (9.8-13.1) 10/31/18 06:50 INR 1.1 10/31/18 06:50 APTT 31.5 Seconds (25.6-37.1) 10/22/18 15:51 Assessment and Plan - Assessment and Plan (Free Text) Assessment: Patient was personally seen and examined by me in rounds with residents. Available labs and diagnostic data reviewed. Case, Patient's condition and management plan discussed with residents in rounds. Agree with resident's progress note. Plan: As ordered.
--- NOTE | 2018-11-04 10:06 | CP.PCM.PN ---
Subjective - Date & Time of Evaluation Date of Evaluation: 11/04/18 Time of Evaluation: 10:11 - Subjective Subjective: Patient is awake and conscious feeling much better Communicating somewhat Vital signs stable Objective - Vital Signs/Intake and Output Vital Signs (last 24 hours): Temp Pulse Resp BP Pulse Ox 98.8 F 91 H 20 117/78 95 11/04/18 08:23 11/04/18 08:49 11/04/18 08:23 11/04/18 08:49 11/04/18 08:23 Intake and Output: 11/04/18 11/04/18 06:59 18:59 Intake Total 100 Output Total 250 Balance -150 - Medications Medications: Current Medications Bacitracin (Bacitracin) 1 ea TOP DAILY [facility] Last Admin: 11/04/18 08:44 Dose: 1 ea Dimethicone (Proshield Plus Skin Protectant) 1 applic TOP Q8 [facility] Last Admin: 11/04/18 08:43 Dose: 1 applic Epoetin Charles (Procrit) 10,000 unit SC TTS [facility] Last Admin: 11/03/18 10:19 Dose: 10,000 unit Ferrous Gluconate (Fergon) 324 mg PO BID [facility] Last Admin: 11/04/18 08:44 Dose: 324 mg Finasteride (Proscar) 5 mg PO DAILY [facility] Last Admin: 11/04/18 08:45 Dose: 5 mg Lactic Acid (Lac-Hydrin 12% Lotion (225 G)) 1 applic TOP BID [facility] Last Admin: 11/04/18 09:02 Dose: 1 applic Losartan Potassium (Cozaar) 50 mg PO DAILY [facility] Last Admin: 09/27/18 15:20 Dose: Not Given Metoprolol Tartrate (Lopressor) 50 mg PO Q12 [facility] Last Admin: 11/04/18 08:49 Dose: 50 mg Mirtazapine (Remeron) 15 mg PO HS [facility] Last Admin: 11/03/18 21:15 Dose: 15 mg Quetiapine Fumarate (Seroquel) 25 mg PO HS [facility] Last Admin: 11/03/18 21:44 Dose: 25 mg - Labs Labs: 11/02/18 11:38 11/02/18 11:38 PT 12.8 Seconds (9.8-13.1) 10/31/18 06:50 INR 1.1 10/31/18 06:50 APTT 31.5 Seconds (25.6-37.1) 10/22/18 15:51 - Constitutional Appears: No Acute Distress - Eye Exam Eye Exam: Conjunctival injection - ENT Exam ENT Exam: Mucous Membranes Moist - Respiratory Exam Respiratory Exam: NORMAL BREATHING PATTERN - Cardiovascular Exam Cardiovascular Exam: Irregular Rhythm. absent: Gallop - GI/Abdominal Exam GI & Abdominal Exam: Soft, Normal Bowel Sounds - Extremities Exam Extremities Exam: absent: Calf Tenderness - Back Exam Back Exam: absent: CVA tenderness (L), CVA tenderness (R) - Neurological Exam Neurological Exam: Awake - Skin Skin Exam: absent: Cyanosis Assessment and Plan (1) Atrial fibrillation with RVR Status: Acute (2) ESRD (end stage renal disease) Status: Chronic (3) Anemia Status: Chronic (4) Chronic kidney disease, stage IV (severe) Assessment & Plan: - Assessment & Plan: Hypertensive Chronic Kidney Disease (I12.0) CKD 4, off HD Anemia (D64.9), A fib 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 Recurrent cystoscopy s/p cystoscopy on 10/24 and 10/31 Recommendation Transfusion as needed for severe anemia Kidney function remained to be stable This is summary of previous admission multitude of medical problem gross hematuria severe anemia prostatic CA status post multiple cystoscopy previous admission Also for history when the patient was diagnosed with the above diagnosis he has a following treatment previous admission Pulses steroid for 3 days Rituximab 1 g twice 4 weeks apart Oral steroid Plasma phoresis And the patient continued to need dialysis s/p Amicar drip s/p cryopercipitate transfusion; goal fibrinogen > 200 - has been stable after transfusion s/p ddavp s/p vit k Status: Acute
[2018-11-04 14:27] LABS: HEMOGLOBIN 9.9 g/dL (12.0-18.0); MEAN CELL VOLUME 95.8 fl (80.0-94.0); MEAN CORPUSCULAR HEMOGLOBIN 30.7 pg (27.0-31.0); RBC 3.21 Mil/uL (4.40-5.90); RED CELL DISTRIBUTION WIDTH 20.6 % (11.5-14.5); WHITE BLOOD COUNT 13.1 K/uL (4.8-10.8)
[2018-11-04 14:39] LABS: CALCIUM 7.5 mg/dL (8.4-10.2)
--- NOTE | 2018-11-04 21:15 | CP.PCM.PN ---
Subjective - Date & Time of Evaluation Date of Evaluation: 11/04/18 Time of Evaluation: 21:11 - Subjective Subjective: Urology Pt once again seen for persistent hematuria unable to be resolved with prostate fulgeration. As in his prior admissions I have advised he be transfered to an institution where he can be evaluated for prostatic embolization and this recomendation rermains unchanged Objective - Vital Signs/Intake and Output Vital Signs (last 24 hours): Temp Pulse Resp BP Pulse Ox 98.2 F 91 H 18 116/68 98 11/04/18 16:21 11/04/18 16:21 11/04/18 16:21 11/04/18 16:21 11/04/18 16:21 Intake and Output: 11/04/18 11/05/18 18:59 06:59 Output Total 1 Balance -1 - Medications Medications: Current Medications Bacitracin (Bacitracin) 1 ea TOP DAILY [facility] Last Admin: 11/04/18 08:44 Dose: 1 ea Dimethicone (Proshield Plus Skin Protectant) 1 applic TOP Q8 [facility] Last Admin: 11/04/18 16:12 Dose: 1 applic Epoetin Charles (Procrit) 10,000 unit SC TTS [facility] Last Admin: 11/03/18 10:19 Dose: 10,000 unit Ferrous Gluconate (Fergon) 324 mg PO BID [facility] Last Admin: 11/04/18 16:11 Dose: 324 mg Finasteride (Proscar) 5 mg PO DAILY [facility] Last Admin: 11/04/18 08:45 Dose: 5 mg Lactic Acid (Lac-Hydrin 12% Lotion (225 G)) 1 applic TOP BID [facility] Last Admin: 11/04/18 16:13 Dose: 1 applic Losartan Potassium (Cozaar) 50 mg PO DAILY [facility] Last Admin: 09/27/18 15:20 Dose: Not Given Metoprolol Tartrate (Lopressor) 50 mg PO Q12 [facility] Last Admin: 11/04/18 08:49 Dose: 50 mg Mirtazapine (Remeron) 15 mg PO HS [facility] Last Admin: 11/03/18 21:15 Dose: 15 mg Quetiapine Fumarate (Seroquel) 25 mg PO HS [facility] Last Admin: 11/03/18 21:44 Dose: 25 mg - Labs Labs: 11/04/18 14:00 11/04/18 14:00 PT 12.8 Seconds (9.8-13.1) 10/31/18 06:50 INR 1.1 10/31/18 06:50 APTT 31.5 Seconds (25.6-37.1) 10/22/18 15:51
[2018-11-05] MEDS: Proshield Plus GEL TOP SCH ×3 (01:00→16:44)
[2018-11-05] MEDS: Bacitracin 500 Units/gm Oint Foilpak UD TOP SCH (10:00)
[2018-11-05] MEDS: EPOETIN ALFA 10,000 UNIT/ML ML SC SCH (10:00)
[2018-11-05] MEDS ORDERED: Pantoprazole 40 mg EC Tab PO SCH (11:45)
[2018-11-05] MEDS ORDERED: Alum-Mag Hydrox-Simethicone Susp (30 mL) PO ONE (12:27)
[2018-11-05] MEDS: Lidocaine 5% Patch TD SCH (12:30)
--- NOTE | 2018-11-05 23:56 | CON ---
DATE: 11/05/2018 REFERRED BY: Hans Tineo MD HISTORY OF PRESENT ILLNESS: This is a 77-year-old gentleman who has been here in the hospital, admitted for sometime now who has known history of prostate cancer is referred for evaluation with nausea and vomiting of some coffee grounds earlier today. He has a known history of hypertension, congestive heart failure, chronic kidney disease, anemia, atrial fibrillation, and as mentioned prostatic cancer. He has been having hematuria, and he had been living at a alf prior to his hospitalization. He has persistent hematuria. He is waiting for a transfer to [place] for other therapy that cannot be offered here apparently. Be that as it may, at the time of my evaluation this afternoon, he is lying comfortably in bed. He is complaining of nausea but no abdominal pain or discomfort. There has been no reported melena or any blood per rectum. According to the nursing note, he did have one dark black type of vomitus but since then he has had some yellow bilious type vomitus. MEDICATIONS: His medication list was reviewed and is quite extensive. ALLERGIES: HE ALSO HAS NO KNOWN DRUG ALLERGIES. PAST MEDICAL HISTORY: As per the HPI. PAST SURGICAL HISTORY: Noncontributory. FAMILY HISTORY: Noncontributory. SOCIAL HISTORY: No known history of alcohol, tobacco, or drug use in the recent past, I do not know but way back, he did not offer any answers to those questions. PHYSICAL EXAMINATION: GENERAL: He is a well-developed, well-nourished gentleman, elderly who is awake, alert, and oriented and in no acute distress. He is answering my questions appropriately. VITAL SIGNS: Stable. He is afebrile. ABDOMEN: Soft. Good bowel sounds. Not tender or distended. No palpable masses or lesions. LABORATORY DATA: Unfortunately, he is now refusing laboratories. Most recent one was from yesterday when his white count had bumped up to 13.1 with an H and H of 9.9 and 30.8, platelet count of 331. His SMA-7: BUN and creatinine are 24 and 2, otherwise unremarkable. His LFTs are reviewed. IMPRESSION AND PLAN: This is a 77-year-old gentleman with multiple medical problems who is on multiple medications all of which may be contributing to some nausea and his episodes of vomiting who is referred for evaluation. At this point in time, we will try to coax him into allowing blood work to be drawn as he had refused today for tomorrow morning to check his complete blood count and amylase and lipase to pancreatitis that could be causing this, although seems unlikely clinically as he has no pain or discomfort and he has no history of that though we will repeat labs in the morning. In the mean time, he is to start intravenous Protonix once daily. I have also ordered Reglan 10 mg intravenous every 8 hours just for three doses to help with his nausea and vomiting to see if we can alleviate that. I have also decreased him to a clear liquid diet. Once that is tolerated, we could advance once again and will follow along with you. Thank you very much for this referral. Raul Gonzalez MD
[2018-11-06] MEDS: Proshield Plus GEL TOP SCH ×3 (00:33→16:55)
[2018-11-06 08:20] LABS: ALB/GLOB RATIO 0.5 (1.0-2.1); ALT/SGPT 16 U/L (21-72); AMYLASE 62 U/L (30-110); AST/SGOT 26 U/L (17-59); BLOOD UREA NITROGEN 25 mg/dl (9-20); CALCIUM 7.9 mg/dL (8.4-10.2); GFR NON-AFRICAN AMERICAN 28; LIPASE < 10 U/L (23-300)
[2018-11-06] MEDS: Bacitracin 500 Units/gm Oint Foilpak UD TOP SCH (08:50)
[2018-11-06] MEDS: Lidocaine 5% Patch TD SCH (09:00)
--- NOTE | 2018-11-06 09:16 | PN ---
DATE: 11/06/2018 SUBJECTIVE: The patient seen and examined. Interim events noted. The patient remains in regular medical floor, remains uncooperative. Gastroenterology followup and intervention noted and appreciated. The patient feels okay. Denies any chest pain or shortness of breath. No episodes of vomiting reported by nursing staff. PHYSICAL EXAMINATION: GENERAL: The patient is in no acute distress. VITAL SIGNS: Stable. HEART: S1 and S2, normal, regular. LUNGS: Good bilateral air exchange. ABDOMEN: Soft, nontender. No organomegaly. No fluid. Bowel sounds are plus and normal. No sign of acute abdomen. No guarding, no rigidity, no rebound. No suprapubic tenderness. EXTREMITIES: No edema. No calf swelling. No tenderness. No acute ischemia. CENTRAL NERVOUS SYSTEM: Essentially unchanged. DIAGNOSTIC DATA: Available diagnostic data reviewed. ASSESSMENT AND PLAN: Overall, the patient is medically stable. Plan as ordered. Hans Tineo MD
[2018-11-06 13:57] LABS: BASO % 0.5 % (0.0-2.0); EOS % 0.5 % (0.0-4.0); LYMPH # 0.7 K/uL (1.0-4.3); MEAN CELL VOLUME 94.3 fl (80.0-94.0); MEAN CORPUSCULAR HEMOGLOBIN 30.8 pg (27.0-31.0); MEAN CORPUSCULAR HGB CONC 32.6 g/dL (33.0-37.0); MEAN PLATELET VOLUME 6.2 fl (7.2-11.7); MONO # 1.1 K/uL (0.0-0.8); MONO % 12.3 % (0.0-10.0); NEUT # 7.2 K/uL (1.8-7.0); NEUT % 78.7 % (50.0-75.0); PLATELET COUNT 342 K/uL (130-400); RBC 2.93 Mil/uL (4.40-5.90); RED CELL DISTRIBUTION WIDTH 19.3 % (11.5-14.5); WHITE BLOOD COUNT 9.2 K/uL (4.8-10.8)
[2018-11-06 14:53] LABS: ANISOCYTOSIS SLIGHT; BANDS 5 % (0-2); LYMPHOCYTE 12 % (20-50); MONOCYTE 7 % (0-10); NEUTROPHIL 76 % (42-75); PLATELET ESTIMATE NORMAL (NORMAL); POIKILOCYTOSIS SLIGHT; TOTAL CELLS COUNTED 100
[2018-11-07] MEDS: Proshield Plus GEL TOP SCH ×3 (00:39→17:15)
--- NOTE | 2018-11-07 08:34 | PN ---
DATE: 11/05/2018 SUBJECTIVE: The patient seen and examined. Interim events noted. Consults noted and appreciated. The patient remains in regular medical floor. Denies any specific complaints. Very uncooperative. Does not let blood work done. Continues to have dark blood-tinged urine, but output is only 100 mL overnight. No chest pain, shortness of breath, abdominal pain, or any urinary symptoms; although the patient is not a good historian. PHYSICAL EXAMINATION: GENERAL: The patient is in no acute distress. VITAL SIGNS: Stable. HEART: S1 and S2 normal, regular. LUNGS: Good bilateral air exchange. ABDOMEN: Soft, nontender. No organomegaly. No fluid. Bowel sounds are present and normal. EXTREMITIES: No edema. No calf swelling. No tenderness. No ischemia. CENTRAL NERVOUS SYSTEM: Essentially unchanged. Banks catheter shows dark urine, blood tinge. DIAGNOSTIC DATA: Available diagnostic data reviewed. The patient has refused the blood test. ASSESSMENT AND PLAN: Plan as ordered. Hans Tineo MD
--- NOTE | 2018-11-07 08:40 | CP.PCM.PCO ---
Physician Communication Note - Physician Communication Note Physician Communication Note: Spoke to Dr. Israel Fisher, he will admit patient in [place] Assessment/Plan - Assessment/Plan Assessment (Free Text): Spoke to Yary at [facility], no beds available, they will call us when a bed opens up. - Consults Consult Orders: Consultations 09/24/18 19:00 Nursing Referral for Palliative Care Routine Comment: Consulting Provider: Physician Instructions: Reason For Exam: ESRD Nursing Referral for Wound Care Routine Comment: Physician Instructions: Reason For Exam: BEDBOUND
[2018-11-07] MEDS: Bacitracin 500 Units/gm Oint Foilpak UD TOP SCH (09:41)
[2018-11-07] MEDS: Lidocaine 5% Patch TD SCH (09:43)
--- NOTE | 2018-11-07 09:51 | PN ---
DATE: 11/07/2018 SUBJECTIVE: The patient seen and examined. Interim events noted. Consult noted and appreciated. The patient admitted to regular medical floor. Denies any complaints. No chest pain or shortness of breath. No abdominal pain. PHYSICAL EXAMINATION: GENERAL: The patient is in no acute distress. VITAL SIGNS: Stable. HEART: S1 and S2, normal, regular. LUNGS: Good bilateral air exchange. ABDOMEN: Soft, nontender. No organomegaly. No fluid. Bowel sounds are plus and normal. No sign of acute abdomen. No guarding, no rigidity, no rebound. No suprapubic tenderness. EXTREMITIES: No edema. No calf swelling. No tenderness. No acute ischemia. CENTRAL NERVOUS SYSTEM: Essentially unchanged. DIAGNOSTIC DATA: Available diagnostic data reviewed. Hemoglobin stable at 9. ASSESSMENT AND PLAN: Overall, the patient is medically stable. Plan as ordered. Hans Tineo MD
--- NOTE | 2018-11-07 10:38 | CP.PCM.PN ---
Subjective - Date & Time of Evaluation Date of Evaluation: 11/07/18 Time of Evaluation: 10:37 - Subjective Subjective: Patient in bed appears to be comfortable. Urine is still bloody tinged Vital signs stable Objective - Vital Signs/Intake and Output Vital Signs (last 24 hours): Temp Pulse Resp BP Pulse Ox 97.6 F 100 H 20 116/76 100 11/07/18 07:57 11/07/18 09:51 11/07/18 07:57 11/07/18 09:51 11/07/18 07:57 Intake and Output: 11/07/18 11/07/18 06:59 18:59 Intake Total 100 Output Total 325 Balance -225 - Medications Medications: Current Medications Acetaminophen (Tylenol 325mg Tab) 650 mg PO Q6 PRN PRN Reason: Pain, Mild (1-3) Bacitracin (Bacitracin) 1 ea TOP DAILY [facility] Last Admin: 11/07/18 09:41 Dose: 1 ea Dimethicone (Proshield Plus Skin Protectant) 1 applic TOP Q8 [facility] Last Admin: 11/07/18 09:42 Dose: 1 applic Epoetin Charles (Procrit) 10,000 unit SC TTS [facility] Last Admin: 11/05/18 10:00 Dose: 10,000 unit Ferrous Gluconate (Fergon) 324 mg PO BID [facility] Last Admin: 11/07/18 09:41 Dose: 324 mg Finasteride (Proscar) 5 mg PO DAILY [facility] Last Admin: 11/07/18 09:42 Dose: 5 mg Lactic Acid (Lac-Hydrin 12% Lotion (225 G)) 1 applic TOP BID [facility] Last Admin: 11/07/18 09:44 Dose: 1 applic Lidocaine (Lidoderm) 1 ea TD DAILY [facility] Last Admin: 11/07/18 09:43 Dose: 1 ea Losartan Potassium (Cozaar) 50 mg PO DAILY [facility] Last Admin: 09/27/18 15:20 Dose: Not Given Metoprolol Tartrate (Lopressor) 50 mg PO Q12 [facility] Last Admin: 11/07/18 09:51 Dose: 50 mg Mirtazapine (Remeron) 15 mg PO HS [facility] Last Admin: 11/06/18 21:43 Dose: 15 mg Ondansetron HCl (Zofran Inj) 4 mg IVP Q8 PRN PRN Reason: Nausea/Vomiting Last Admin: 11/05/18 10:20 Dose: 4 mg Pantoprazole Sodium (Protonix Inj) 40 mg IVP DAILY [facility] Last Admin: 11/07/18 09:43 Dose: 40 mg Quetiapine Fumarate (Seroquel) 25 mg PO HS [facility] Last Admin: 11/06/18 21:43 Dose: 25 mg - Labs Labs: 11/06/18 13:02 11/06/18 06:00 PT 12.8 Seconds (9.8-13.1) 10/31/18 06:50 INR 1.1 10/31/18 06:50 APTT 31.5 Seconds (25.6-37.1) 10/22/18 15:51 - Constitutional Appears: No Acute Distress - ENT Exam ENT Exam: Mucous Membranes Moist - GI/Abdominal Exam GI & Abdominal Exam: Soft, Normal Bowel Sounds - Extremities Exam Extremities Exam: absent: Calf Tenderness - Back Exam Back Exam: absent: CVA tenderness (L), CVA tenderness (R) - Neurological Exam Neurological Exam: Awake - Skin Skin Exam: absent: Cyanosis Assessment and Plan (1) Atrial fibrillation with RVR Status: Acute (2) ESRD (end stage renal disease) Status: Chronic (3) Anemia Status: Chronic (4) Chronic kidney disease, stage IV (severe) Assessment & Plan: Assessment & Plan: Hypertensive Chronic Kidney Disease (I12.0) CKD 4, off HD Anemia (D64.9), A fib 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 Recurrent cystoscopy s/p cystoscopy on 10/24 and 10/31 Recommendation Transfusion as needed for severe anemia Kidney function remained to be stable This is summary of previous admission multitude of medical problem gross hematuria severe anemia prostatic CA status post multiple cystoscopy previous admission Also for history when the patient was diagnosed with the above diagnosis he has a following treatment previous admission Pulses steroid for 3 days Rituximab 1 g twice 4 weeks apart Oral steroid Plasma phoresis And the patient continued to need dialysis s/p Amicar drip s/p cryopercipitate transfusion; goal fibrinogen > 200 - has been stable after transfusion s/p ddavp s/p vit k Status: Acute
[2018-11-08] MEDS: Proshield Plus GEL TOP SCH ×2 (02:00→16:23)
--- NOTE | 2018-11-08 09:51 | CP.PCM.PN ---
<Chris Vazquez - Last Filed: 11/08/18 09:53> Subjective - Date & Time of Evaluation Date of Evaluation: 11/08/18 Time of Evaluation: 08:00 - Subjective Subjective: Patient seen and examined at bedside with Dr. Tineo. NAD, Patient is alert and awake, denies any acute event overnight or pain. Hematuria continues, No capacity Waiting for transfer to [place] for Uro intervention Objective - Vital Signs/Intake and Output Vital Signs (last 24 hours): Temp Pulse Resp BP Pulse Ox 97.5 F L 72 18 110/73 98 11/08/18 08:37 11/08/18 08:37 11/08/18 08:37 11/08/18 08:37 11/08/18 08:37 Intake and Output: 11/08/18 11/08/18 06:59 18:59 Intake Total 40 Output Total 200 Balance -160 - Medications Medications: Current Medications Acetaminophen (Tylenol 325mg Tab) 650 mg PO Q6 PRN PRN Reason: Pain, Mild (1-3) Bacitracin (Bacitracin) 1 ea TOP DAILY [facility] Last Admin: 11/07/18 09:41 Dose: 1 ea Dimethicone (Proshield Plus Skin Protectant) 1 applic TOP Q8 [facility] Last Admin: 11/08/18 02:00 Dose: 1 applic Epoetin Charles (Procrit) 10,000 unit SC TTS [facility] Last Admin: 11/05/18 10:00 Dose: 10,000 unit Ferrous Gluconate (Fergon) 324 mg PO BID [facility] Last Admin: 11/07/18 17:15 Dose: 324 mg Finasteride (Proscar) 5 mg PO DAILY [facility] Last Admin: 11/07/18 09:42 Dose: 5 mg Lactic Acid (Lac-Hydrin 12% Lotion (225 G)) 1 applic TOP BID [facility] Last Admin: 11/07/18 17:15 Dose: 1 applic Lidocaine (Lidoderm) 1 ea TD DAILY [facility] Last Admin: 11/07/18 09:43 Dose: 1 ea Losartan Potassium (Cozaar) 50 mg PO DAILY [facility] Last Admin: 09/27/18 15:20 Dose: Not Given Metoprolol Tartrate (Lopressor) 50 mg PO Q12 [facility] Last Admin: 11/07/18 22:38 Dose: 50 mg Mirtazapine (Remeron) 15 mg PO HS [facility] Last Admin: 11/07/18 22:33 Dose: 15 mg Ondansetron HCl (Zofran Inj) 4 mg IVP Q8 PRN PRN Reason: Nausea/Vomiting Last Admin: 11/05/18 10:20 Dose: 4 mg Pantoprazole Sodium (Protonix Inj) 40 mg IVP DAILY [facility] Last Admin: 11/07/18 09:43 Dose: 40 mg Quetiapine Fumarate (Seroquel) 25 mg PO [facility] Last Admin: 11/07/18 22:33 Dose: 25 mg - Labs Labs: 11/06/18 13:02 11/06/18 06:00 PT 12.8 Seconds (9.8-13.1) 10/31/18 06:50 INR 1.1 10/31/18 06:50 APTT 31.5 Seconds (25.6-37.1) 10/22/18 15:51 - Constitutional Appears: No Acute Distress - Head Exam Head Exam: NORMAL INSPECTION - Eye Exam Eye Exam: Normal appearance - ENT Exam ENT Exam: Mucous Membranes Moist - Neck Exam Neck Exam: Normal Inspection - Respiratory Exam Respiratory Exam: Clear to Ausculation Bilateral, NORMAL BREATHING PATTERN - Cardiovascular Exam Cardiovascular Exam: Tachycardia, Irregular Rhythm, +S1, +S2 - GI/Abdominal Exam GI & Abdominal Exam: Soft, Normal Bowel Sounds - Exam Additional comments: + Hadley with Hematuria - Extremities Exam Extremities Exam: Full ROM - Back Exam Back Exam: NORMAL INSPECTION - Neurological Exam Neurological Exam: Alert, Awake - Psychiatric Exam Psychiatric exam: Normal Affect - Skin Skin Exam: Normal Color Assessment and Plan - Assessment and Plan (Free Text) Assessment: A/P: 77 year old Male with PMHx of HTN, Atrial fibrillation, CHF (EF: 60%) and ESRD is admitted for anemia, ESRD, hematuria and a-fib. Psychiatry was consulted and patient does not have medical decision making capacity. S/p cystoscopy on 10/24/18 and 10/31, + hematuria, hadley placed. Anemia, likely due to hematuria -acute on chronic -likely 10/01 to ESRD, hematuria, malignancy -s/p multiple PRBC, C/w Procrit -s/p cystoscopy on 10/24 and 10/31 -Continue management as per Urology for hematuria -possible prostatic embolization at [facility], waiting for transfer -f/u cbc today Major Neurocognitive disorder -Psych consult --Dr. Morales, rec appreciated. -Patient does not have medical decision making capacity -C/w medications as ordered -Patient's daughter Gema Dang tel#[phone] is in charge of medical decision making A fib w/ RVR -Cardiology on consulted; recs appreciated, will notify if anything changes -C/w Metoprolol Tartrate 50mg PO Q12H UTI-ESBL/Hematuria (gross) -ID consulted; recs appreciated -urology consulted; hematuria follow up recs -repeat Ucx is negative on 10/06/18. s/p Abx Hx ESRD, now CKD Stage 4 -acute on chronic -/ to interstitial renal disease, granulomatosis polyangiitis -Nephrology on board -s/p tunnel cath placed on 09/26 and removed on 10/25/18 -No HD for now as per Nephro -GFR and electrolytes stable C. diff pos -Resolved -completed a course of PO vancomycin -c/w probiotic -No diarrhea HTN/CHF -chronic, controlled -hold Losartan (Controlled w/o med) DVT prophylaxis: SCD for now due to hematuria <Hans Tineo K - Last Filed: 11/10/18 11:39> Objective - Vital Signs/Intake and Output Vital Signs (last 24 hours): Temp Pulse Resp BP Pulse Ox 97.5 F L 112 H 20 115/83 99 11/09/18 16:00 11/09/18 16:00 11/09/18 16:00 11/09/18 16:00 11/09/18 16:00 - Labs Labs: 11/09/18 05:51 11/09/18 05:51 PT 12.8 Seconds (9.8-13.1) 10/31/18 06:50 INR 1.1 10/31/18 06:50 APTT 31.5 Seconds (25.6-37.1) 10/22/18 15:51 Assessment and Plan - Assessment and Plan (Free Text) Assessment: Patient was personally seen and examined by me in rounds with residents. Available labs and diagnostic data reviewed. Case, Patient's condition and management plan discussed with residents in rounds. Agree with resident's progress note. Plan: As ordered.
[2018-11-08] MEDS: EPOETIN ALFA 10,000 UNIT/ML ML SC SCH (10:00)
--- NOTE | 2018-11-08 10:46 | CP.PCM.PN ---
Subjective - Date & Time of Evaluation Date of Evaluation: 11/08/18 Time of Evaluation: 10:45 - Subjective Subjective: no overnight events Objective - Vital Signs/Intake and Output Vital Signs (last 24 hours): Temp Pulse Resp BP Pulse Ox 97.5 F L 72 18 110/73 98 11/08/18 08:37 11/08/18 08:37 11/08/18 08:37 11/08/18 08:37 11/08/18 08:37 Intake and Output: 11/08/18 11/08/18 06:59 18:59 Intake Total 40 Output Total 200 Balance -160 - Medications Medications: Current Medications Acetaminophen (Tylenol 325mg Tab) 650 mg PO Q6 PRN PRN Reason: Pain, Mild (1-3) Bacitracin (Bacitracin) 1 ea TOP DAILY [facility] Last Admin: 11/07/18 09:41 Dose: 1 ea Dimethicone (Proshield Plus Skin Protectant) 1 applic TOP Q8 [facility] Last Admin: 11/08/18 02:00 Dose: 1 applic Epoetin Charles (Procrit) 10,000 unit SC TTS [facility] Last Admin: 11/05/18 10:00 Dose: 10,000 unit Ferrous Gluconate (Fergon) 324 mg PO BID [facility] Last Admin: 11/07/18 17:15 Dose: 324 mg Finasteride (Proscar) 5 mg PO DAILY [facility] Last Admin: 11/07/18 09:42 Dose: 5 mg Lactic Acid (Lac-Hydrin 12% Lotion (225 G)) 1 applic TOP BID [facility] Last Admin: 11/07/18 17:15 Dose: 1 applic Lidocaine (Lidoderm) 1 ea TD DAILY [facility] Last Admin: 11/07/18 09:43 Dose: 1 ea Losartan Potassium (Cozaar) 50 mg PO DAILY [facility] Last Admin: 09/27/18 15:20 Dose: Not Given Metoprolol Tartrate (Lopressor) 50 mg PO Q12 [facility] Last Admin: 11/07/18 22:38 Dose: 50 mg Mirtazapine (Remeron) 15 mg PO HS [facility] Last Admin: 11/07/18 22:33 Dose: 15 mg Ondansetron HCl (Zofran Inj) 4 mg IVP Q8 PRN PRN Reason: Nausea/Vomiting Last Admin: 11/05/18 10:20 Dose: 4 mg Pantoprazole Sodium (Protonix Inj) 40 mg IVP DAILY [facility] Last Admin: 11/07/18 09:43 Dose: 40 mg Quetiapine Fumarate (Seroquel) 25 mg PO HS [facility] Last Admin: 11/07/18 22:33 Dose: 25 mg - Labs Labs: 11/06/18 13:02 11/06/18 06:00 PT 12.8 Seconds (9.8-13.1) 10/31/18 06:50 INR 1.1 10/31/18 06:50 APTT 31.5 Seconds (25.6-37.1) 10/22/18 15:51 - Neck Exam Neck Exam: Normal Inspection - Respiratory Exam Respiratory Exam: Clear to Ausculation Bilateral - Cardiovascular Exam Cardiovascular Exam: REGULAR RHYTHM - GI/Abdominal Exam GI & Abdominal Exam: Soft, Normal Bowel Sounds Assessment and Plan - Assessment and Plan (Free Text) Assessment: 77 yo male with hematuria no active GI issues pending transfer
--- NOTE | 2018-11-08 11:56 | CP.PCM.PN ---
Subjective - Date & Time of Evaluation Date of Evaluation: 11/08/18 Time of Evaluation: 11:54 - Subjective Subjective: No new event reported. Vital signs stable. Objective - Vital Signs/Intake and Output Vital Signs (last 24 hours): Temp Pulse Resp BP Pulse Ox 97.5 F L 72 18 110/73 98 11/08/18 08:37 11/08/18 08:37 11/08/18 08:37 11/08/18 08:37 11/08/18 08:37 Intake and Output: 11/08/18 11/08/18 06:59 18:59 Intake Total 40 Output Total 200 Balance -160 - Medications Medications: Current Medications Acetaminophen (Tylenol 325mg Tab) 650 mg PO Q6 PRN PRN Reason: Pain, Mild (1-3) Bacitracin (Bacitracin) 1 ea TOP DAILY [facility] Last Admin: 11/07/18 09:41 Dose: 1 ea Dimethicone (Proshield Plus Skin Protectant) 1 applic TOP Q8 [facility] Last Admin: 11/08/18 02:00 Dose: 1 applic Epoetin Charles (Procrit) 10,000 unit SC TTS [facility] Last Admin: 11/05/18 10:00 Dose: 10,000 unit Ferrous Gluconate (Fergon) 324 mg PO BID [facility] Last Admin: 11/07/18 17:15 Dose: 324 mg Finasteride (Proscar) 5 mg PO DAILY [facility] Last Admin: 11/07/18 09:42 Dose: 5 mg Lactic Acid (Lac-Hydrin 12% Lotion (225 G)) 1 applic TOP BID [facility] Last Admin: 11/07/18 17:15 Dose: 1 applic Lidocaine (Lidoderm) 1 ea TD DAILY [facility] Last Admin: 11/07/18 09:43 Dose: 1 ea Losartan Potassium (Cozaar) 50 mg PO DAILY [facility] Last Admin: 09/27/18 15:20 Dose: Not Given Metoprolol Tartrate (Lopressor) 50 mg PO Q12 [facility] Last Admin: 11/07/18 22:38 Dose: 50 mg Mirtazapine (Remeron) 15 mg PO HS [facility] Last Admin: 11/07/18 22:33 Dose: 15 mg Ondansetron HCl (Zofran Inj) 4 mg IVP Q8 PRN PRN Reason: Nausea/Vomiting Last Admin: 11/05/18 10:20 Dose: 4 mg Pantoprazole Sodium (Protonix Inj) 40 mg IVP DAILY [facility] Last Admin: 11/07/18 09:43 Dose: 40 mg Quetiapine Fumarate (Seroquel) 25 mg PO HS [facility] Last Admin: 11/07/18 22:33 Dose: 25 mg - Labs Labs: 11/06/18 13:02 11/06/18 06:00 PT 12.8 Seconds (9.8-13.1) 10/31/18 06:50 INR 1.1 10/31/18 06:50 APTT 31.5 Seconds (25.6-37.1) 10/22/18 15:51 - Constitutional Appears: No Acute Distress - Eye Exam Eye Exam: Conjunctival injection - ENT Exam ENT Exam: Mucous Membranes Moist - GI/Abdominal Exam GI & Abdominal Exam: Normal Bowel Sounds. 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
[2018-11-08] MEDS: Bacitracin 500 Units/gm Oint Foilpak UD TOP SCH (16:23)
[2018-11-08] MEDS: Lidocaine 5% Patch TD SCH (16:25)
[2018-11-08 16:29] VITALS: RESP 20
[2018-11-09] MEDS: Proshield Plus GEL TOP SCH ×3 (01:20→18:33)
[2018-11-09 06:28] LABS: BASO % 0.5 % (0.0-2.0); EOS # 0.1 K/uL (0.0-0.7); EOS % 0.9 % (0.0-4.0); HEMOGLOBIN 9.5 g/dL (12.0-18.0); LYMPH # 0.8 K/uL (1.0-4.3); LYMPH % 12.4 % (20.0-40.0); MEAN CELL VOLUME 94.3 fl (80.0-94.0); MEAN CORPUSCULAR HEMOGLOBIN 30.6 pg (27.0-31.0); MEAN CORPUSCULAR HGB CONC 32.5 g/dL (33.0-37.0); MEAN PLATELET VOLUME 6.1 fl (7.2-11.7); MONO # 1.1 K/uL (0.0-0.8); MONO % 17.5 % (0.0-10.0); NEUT # 4.2 K/uL (1.8-7.0); NEUT % 68.7 % (50.0-75.0); RBC 3.12 Mil/uL (4.40-5.90); WHITE BLOOD COUNT 6.2 K/uL (4.8-10.8)
[2018-11-09 06:38] LABS: ALB/GLOB RATIO 0.5 (1.0-2.1); ALBUMIN 1.9 g/dL (3.5-5.0); CALCIUM 8.2 mg/dL (8.4-10.2)
[2018-11-09] MEDS: Bacitracin 500 Units/gm Oint Foilpak UD TOP SCH (09:15)
[2018-11-09] MEDS: Lidocaine 5% Patch TD SCH (09:16)
--- NOTE | 2018-11-09 10:56 | CP.PCM.PN ---
<Chris Vazquez - Last Filed: 11/09/18 10:57> Subjective - Date & Time of Evaluation Date of Evaluation: 11/09/18 Time of Evaluation: 08:00 - Subjective Subjective: Patient seen and examined this morning with Dr. Tineo. NAD, Alert and awake, denies any acute event overnight + hematuria Pending transfer Stable H/H this morning Objective - Vital Signs/Intake and Output Vital Signs (last 24 hours): Temp Pulse Resp BP Pulse Ox 97.9 F 114 H 20 122/75 98 11/09/18 09:37 11/09/18 09:37 11/09/18 09:37 11/09/18 09:37 11/09/18 09:37 Intake and Output: 11/09/18 11/09/18 06:59 18:59 Intake Total 240 Output Total 150 Balance 90 - Medications Medications: Current Medications Acetaminophen (Tylenol 325mg Tab) 650 mg PO Q6 PRN PRN Reason: Pain, Mild (1-3) Bacitracin (Bacitracin) 1 ea TOP DAILY [facility] Last Admin: 11/09/18 09:15 Dose: 1 ea Dimethicone (Proshield Plus Skin Protectant) 1 applic TOP Q8 [facility] Last Admin: 11/09/18 09:14 Dose: 1 applic Epoetin Charles (Procrit) 10,000 unit SC TTS [facility] Last Admin: 11/08/18 10:00 Dose: 10,000 unit Ferrous Gluconate (Fergon) 324 mg PO BID [facility] Last Admin: 11/09/18 09:15 Dose: 324 mg Finasteride (Proscar) 5 mg PO DAILY [facility] Last Admin: 11/09/18 09:14 Dose: 5 mg Lactic Acid (Lac-Hydrin 12% Lotion (225 G)) 1 applic TOP BID [facility] Last Admin: 11/09/18 09:18 Dose: 1 applic Lidocaine (Lidoderm) 1 ea TD DAILY [facility] Last Admin: 11/09/18 09:16 Dose: Not Given Losartan Potassium (Cozaar) 50 mg PO DAILY [facility] Last Admin: 09/27/18 15:20 Dose: Not Given Metoprolol Tartrate (Lopressor) 50 mg PO Q12 [facility] Last Admin: 11/09/18 09:15 Dose: 50 mg Mirtazapine (Remeron) 15 mg PO HS [facility] Last Admin: 11/08/18 22:09 Dose: 15 mg Ondansetron HCl (Zofran Inj) 4 mg IVP Q8 PRN PRN Reason: Nausea/Vomiting Last Admin: 11/05/18 10:20 Dose: 4 mg Pantoprazole Sodium (Protonix Inj) 40 mg IVP DAILY [facility] Last Admin: 11/09/18 09:14 Dose: 40 mg Quetiapine Fumarate (Seroquel) 25 mg PO HS [facility] Last Admin: 11/08/18 22:00 Dose: 25 mg - Labs Labs: 11/09/18 05:51 11/09/18 05:51 PT 12.8 Seconds (9.8-13.1) 10/31/18 06:50 INR 1.1 10/31/18 06:50 APTT 31.5 Seconds (25.6-37.1) 10/22/18 15:51 - Constitutional Appears: No Acute Distress - Head Exam Head Exam: NORMAL INSPECTION - Eye Exam Eye Exam: Normal appearance - ENT Exam ENT Exam: Mucous Membranes Moist - Neck Exam Neck Exam: Normal Inspection - Respiratory Exam Respiratory Exam: Clear to Ausculation Bilateral, NORMAL BREATHING PATTERN - Cardiovascular Exam Cardiovascular Exam: REGULAR RHYTHM - GI/Abdominal Exam GI & Abdominal Exam: Soft, Normal Bowel Sounds. absent: Tenderness - Exam Additional comments: + Hematuria - Extremities Exam Extremities Exam: Normal Inspection - Back Exam Back Exam: NORMAL INSPECTION - Neurological Exam Neurological Exam: Alert, Awake Additional comments: No capacity - Psychiatric Exam Psychiatric exam: Normal Affect - Skin Skin Exam: Normal Color Assessment and Plan - Assessment and Plan (Free Text) Assessment: A/P: 77 year old Male with PMHx of HTN, Atrial fibrillation, CHF (EF: 60%) and ESRD is admitted for anemia, ESRD, hematuria and a-fib. Psychiatry was consulted and patient does not have medical decision making capacity. S/p cystoscopy on 10/24/18 and 10/31, + hematuria, hadley in place. Anemia, likely due to hematuria -acute on chronic -likely 10/01 to ESRD, hematuria, malignancy -s/p multiple PRBC, C/w Procrit -s/p cystoscopy on 10/24 and 10/31 -Continue management as per Urology for hematuria -possible prostatic embolization at [place], waiting for transfer -Stable h/h this morning Major Neurocognitive disorder -Psych consult --Dr. Morales, rec appreciated. -Patient does not have medical decision making capacity -C/w medications as ordered -Patient's daughter Gema Dang tel#[phone] is in charge of medical decision making A fib w/ RVR -Cardiology on consulted; recs appreciated, will notify if anything changes -C/w Metoprolol Tartrate 50mg PO Q12H UTI-ESBL/Hematuria (gross) -ID consulted; recs appreciated -urology consulted; hematuria follow up recs -repeat Ucx is negative on 10/06/18. 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 diff pos -Resolved -completed a course of PO vancomycin -c/w probiotic -No diarrhea HTN/CHF -chronic, controlled -hold Losartan (Controlled w/o med) DVT prophylaxis: SCD for now due to hematuria <Hans Tineo K - Last Filed: 11/10/18 11:38> Objective - Vital Signs/Intake and Output Vital Signs (last 24 hours): Temp Pulse Resp BP Pulse Ox 97.5 F L 112 H 20 115/83 99 11/09/18 16:00 11/09/18 16:00 11/09/18 16:00 11/09/18 16:00 11/09/18 16:00 - Labs Labs: 11/09/18 05:51 11/09/18 05:51 PT 12.8 Seconds (9.8-13.1) 10/31/18 06:50 INR 1.1 10/31/18 06:50 APTT 31.5 Seconds (25.6-37.1) 10/22/18 15:51 Assessment and Plan - Assessment and Plan (Free Text) Assessment: Patient was personally seen and examined by me in rounds with residents. Available labs and diagnostic data reviewed. Case, Patient's condition and management plan discussed with residents in rounds. Agree with resident's progress note. Plan: As ordered.
--- NOTE | 2018-11-09 12:39 | CP.PCM.PN ---
Subjective - Date & Time of Evaluation Date of Evaluation: 11/09/18 Time of Evaluation: 12:37 - Subjective Subjective: no overnight events Objective - Vital Signs/Intake and Output Vital Signs (last 24 hours): Temp Pulse Resp BP Pulse Ox 97.9 F 114 H 20 122/75 98 11/09/18 09:37 11/09/18 09:37 11/09/18 09:37 11/09/18 09:37 11/09/18 09:37 Intake and Output: 11/09/18 11/09/18 06:59 18:59 Intake Total 240 Output Total 150 Balance 90 - Medications Medications: Current Medications Acetaminophen (Tylenol 325mg Tab) 650 mg PO Q6 PRN PRN Reason: Pain, Mild (1-3) Bacitracin (Bacitracin) 1 ea TOP DAILY [facility] Last Admin: 11/09/18 09:15 Dose: 1 ea Dimethicone (Proshield Plus Skin Protectant) 1 applic TOP Q8 [facility] Last Admin: 11/09/18 09:14 Dose: 1 applic Epoetin Charles (Procrit) 10,000 unit SC TTS [facility] Last Admin: 11/08/18 10:00 Dose: 10,000 unit Ferrous Gluconate (Fergon) 324 mg PO BID [facility] Last Admin: 11/09/18 09:15 Dose: 324 mg Finasteride (Proscar) 5 mg PO DAILY [facility] Last Admin: 11/09/18 09:14 Dose: 5 mg Lactic Acid (Lac-Hydrin 12% Lotion (225 G)) 1 applic TOP BID [facility] Last Admin: 11/09/18 09:18 Dose: 1 applic Lidocaine (Lidoderm) 1 ea TD DAILY [facility] Last Admin: 11/09/18 09:16 Dose: Not Given Losartan Potassium (Cozaar) 50 mg PO DAILY [facility] Last Admin: 09/27/18 15:20 Dose: Not Given Metoprolol Tartrate (Lopressor) 50 mg PO Q12 [facility] Last Admin: 11/09/18 09:15 Dose: 50 mg Mirtazapine (Remeron) 15 mg PO HS [facility] Last Admin: 11/08/18 22:09 Dose: 15 mg Ondansetron HCl (Zofran Inj) 4 mg IVP Q8 PRN PRN Reason: Nausea/Vomiting Last Admin: 11/05/18 10:20 Dose: 4 mg Pantoprazole Sodium (Protonix Inj) 40 mg IVP DAILY [facility] Last Admin: 11/09/18 09:14 Dose: 40 mg Quetiapine Fumarate (Seroquel) 25 mg PO HS [facility] Last Admin: 11/08/18 22:00 Dose: 25 mg - Labs Labs: 11/09/18 05:51 11/09/18 05:51 PT 12.8 Seconds (9.8-13.1) 10/31/18 06:50 INR 1.1 10/31/18 06:50 APTT 31.5 Seconds (25.6-37.1) 10/22/18 15:51 - Neck Exam Neck Exam: Normal Inspection - Respiratory Exam Respiratory Exam: Clear to Ausculation Bilateral, NORMAL BREATHING PATTERN - Cardiovascular Exam Cardiovascular Exam: REGULAR RHYTHM - GI/Abdominal Exam GI & Abdominal Exam: Soft, Normal Bowel Sounds Assessment and Plan - Assessment and Plan (Free Text) Assessment: 77 yo male with hematuria pending transfer trend cbc
[2018-11-09 16:02] VITALS: BP 115/83; PULSE 112; TEMP 97.5; O2SAT 99
--- NOTE | 2018-11-10 06:31 | CP.PCM.DIS ---
Provider - Provider Date of Admission: 09/24/18 11:32 Attending physician: Hans Tineo MD Primary care physician: None Consults: 09/24/18 11:33 Nephrology Consult Stat Comment: Consulting Provider: Moses Bernabe Consulting Physician: Moses Bernabe Reason for Consult: ESRD Urology Consult Stat Comment: Consulting Provider: Yessy Jeffries Consulting Physician: Yessy Jeffries Reason for Consult: Hematuria 09/24/18 13:17 Cardiology Consult Stat Comment: Consulting Provider: Jacob Gray V Consulting Physician: Jacob Gray V Reason for Consult: A fiv with RVR 09/24/18 19:00 Nursing Referral for Palliative Care Routine Comment: Consulting Provider: Physician Instructions: Reason For Exam: ESRD Nursing Referral for Wound Care Routine Comment: Physician Instructions: Reason For Exam: BEDBOUND 09/26/18 09:10 Infectious Disease Consult Routine Comment: Consulting Provider: Amol Marshall Consulting Physician: Amol Marshall Reason for Consult: positive urine culture 10/05/18 11:34 Psychiatry Consult Routine Comment: Consulting Provider: Liberty Morales Consulting Physician: Liberty Morales Reason for Consult: pt. refusing iv meds/ labwork; 11/01/18 14:08 Psychology Consult Routine Comment: Consulting Provider: Aracelis Simpson Consulting Physician: Aracelis Simpson Reason for Consult: Evaluate neurocognitive function 11/05/18 10:15 Gastroenterology Consult Routine Comment: Consulting Provider: Romulo Villagran Consulting Physician: Romulo Villagran Reason for Consult: vomiting; dark brown Time Spent in preparation of Discharge (in minutes): 40 Diagnosis - Discharge Diagnosis (1) Anemia Status: Acute (2) Hematuria Status: Acute (3) Neurocognitive disorder Status: Chronic (4) Atrial fibrillation with RVR Status: Chronic (5) UTI (urinary tract infection) Status: Acute (6) Acute kidney injury superimposed on CKD Status: Acute (7) C. difficile colitis Status: Acute (8) HTN (hypertension) Status: Chronic Hospital Course - Lab Results Lab Results: Micro Results 10/06/18 15:26 Urine,Catheterized Urine Culture - Final No Growth (<1,000 CFU/ML) 09/24/18 10:10 Urine,Banks Urine Culture - Final Klebsiella Pneumoniae Ssp Pneu Most Recent Lab Values WBC 6.2 K/uL (4.8-10.8) 11/09/18 05:51 RBC 3.12 Mil/uL (4.40-5.90) L 11/09/18 05:51 Hgb 9.5 g/dL (12.0-18.0) L 11/09/18 05:51 Hct 29.4 % (35.0-51.0) L 11/09/18 05:51 MCV 94.3 fl (80.0-94.0) H 11/09/18 05:51 MCH 30.6 pg (27.0-31.0) 11/09/18 05:51 MCHC 32.5 g/dL (33.0-37.0) L 11/09/18 05:51 RDW 19.0 % (11.5-14.5) H 11/09/18 05:51 Plt Count 328 K/uL (130-400) 11/09/18 05:51 MPV 6.1 fl (7.2-11.7) L 11/09/18 05:51 Neut % (Auto) 68.7 % (50.0-75.0) 11/09/18 05:51 Lymph % (Auto) 12.4 % (20.0-40.0) L 11/09/18 05:51 [place] % (Auto) 17.5 % (0.0-10.0) H 11/09/18 05:51 Eos % (Auto) 0.9 % (0.0-4.0) 11/09/18 05:51 Baso % (Auto) 0.5 % (0.0-2.0) 11/09/18 05:51 Neut # (Auto) 4.2 K/uL (1.8-7.0) 11/09/18 05:51 Lymph # (Auto) 0.8 K/uL (1.0-4.3) L 11/09/18 05:51 [place] # (Auto) 1.1 K/uL (0.0-0.8) H 11/09/18 05:51 Eos # (Auto) 0.1 K/uL (0.0-0.7) 11/09/18 05:51 Baso # (Auto) 0.0 K/uL (0.0-0.2) 11/09/18 05:51 Neutrophils % (Manual) 76 % (42-75) H 11/06/18 13:02 Band Neutrophils % 5 % (0-2) H 11/06/18 13:02 Lymphocytes % (Manual) 12 % (20-50) L 11/06/18 13:02 Monocytes % (Manual) 7 % (0-10) 11/06/18 13:02 Eosinophils % (Manual) 1 % (0-7) 09/29/18 09:00 Metamyelocytes % 3 % (0-0) H 09/25/18 05:32 Myelocytes % 2 % (0-0) H 09/25/18 05:32 Nucleated RBC % 1 % (0-0) H 09/25/18 05:32 Toxic Granulation Present 09/29/18 09:00 Platelet Estimate Normal (NORMAL) 11/06/18 13:02 Large Platelets Present 09/29/18 09:00 Polychromasia Slight 09/25/18 05:32 Hypochromasia (manual) Moderate 09/29/18 09:00 Poikilocytosis (manual Slight 11/06/18 13:02 Anisocytosis (manual) Slight 11/06/18 13:02 Ovalocytes Slight 09/24/18 09:45 [place] Cells Slight 09/24/18 09:45 PT 12.8 Seconds (9.8-13.1) 10/31/18 06:50 INR 1.1 10/31/18 06:50 APTT 31.5 Seconds (25.6-37.1) 10/22/18 15:51 Sodium 136 mmol/l (132-148) 11/09/18 05:51 Potassium 3.8 MMOL/L (3.6-5.0) 11/09/18 05:51 Chloride 110 mmol/L (98-107) H 11/09/18 05:51 Carbon Dioxide 21 mmol/L (22-30) L 11/09/18 05:51 Anion Gap 9 (10-20) L 11/09/18 05:51 BUN 29 mg/dl (9-20) H 11/09/18 05:51 Creatinine 2.7 mg/dl (0.8-1.5) H 11/09/18 05:51 Est GFR ( Amer) 28 11/09/18 05:51 Est GFR (Non-Af Amer) 23 11/09/18 05:51 POC Glucose (mg/dL) 97 mg/dL (65-110) 11/09/18 16:29 Random Glucose 69 mg/dL (75-110) L 11/09/18 05:51 Calcium 8.2 mg/dL (8.4-10.2) L 11/09/18 05:51 Phosphorus 3.9 mg/dl (2.5-4.5) 11/09/18 05:51 Magnesium 2.2 MG/DL (1.6-2.3) 11/09/18 05:51 Iron 12 ug/dL (49-181) L 10/24/18 15:18 Ferritin 1820.0 ng/Ml (17.9-464) H 10/24/18 15:18 Total Bilirubin 0.3 mg/dl (0.2-1.3) 11/09/18 05:51 AST 16 U/L (17-59) L D 11/09/18 05:51 ALT 20 U/L (21-72) L D 11/09/18 05:51 Alkaline Phosphatase 101 U/L (38-126) 11/09/18 05:51 Troponin I 0.0250 ng/mL (0.00-0.120) 09/24/18 09:45 Total Protein 5.5 G/DL (6.3-8.2) L 11/09/18 05:51 Albumin 1.9 g/dL (3.5-5.0) L 11/09/18 05:51 Globulin 3.6 gm/dL (2.2-3.9) 11/09/18 05:51 Albumin/Globulin Ratio 0.5 (1.0-2.1) L 11/09/18 05:51 Amylase 62 U/L (30-110) 11/06/18 06:00 Lipase < 10 U/L (23-300) L 11/06/18 06:00 PTH Intact Whole Mole[place] 11 pg/mL (14-64) L 10/24/18 15:18 Urine Color Red (YELLOW) 10/15/18 16:30 Urine Clarity Turbid (Clear) 10/15/18 16:30 Urine pH 7.0 (5.0-8.0) 10/15/18 16:30 Ur Specific [place] 1.013 (1.003-1.030) 10/15/18 16:30 Urine Protein 100 mg/dL (NEGATIVE) 10/15/18 16:30 Urine Glucose (UA) 50 mg/dL (NEGATIVE) 10/15/18 16:30 Urine Ketones Trace mg/dL (NEGATIVE) 10/15/18 16:30 Urine Blood Moderate (NEGATIVE) 10/15/18 16:30 Urine Nitrate Negative (NEGATIVE) 10/15/18 16:30 Urine Bilirubin Negative (NEGATIVE) 10/15/18 16:30 Urine Urobilinogen 0.2-1.0 mg/dL (0.2-1.0) 10/15/18 16:30 Ur Leukocyte Esterase Trace [place]/uL (Negative) 10/15/18 16:30 Urine RBC (Auto) 51964 /hpf (0-3) H 10/15/18 16:30 Urine WBC Clumps (Auto) Many /hpf (NONE) H 10/15/18 16:30 Urine Microscopic WBC 499 /hpf (0-5) H 10/15/18 16:30 Ur Squamous Epith Cells 3 /hpf (0-5) 09/24/18 10:10 Urine Bacteria Mod (<OCC) H 09/24/18 10:10 Other Casts 11 /hpf 09/24/18 10:10 Urine Yeast (Budding) Mod /hpf (NEGATIVE) H 09/24/18 10:10 Ur Random Creatinine 81.1 mg/dL 09/30/18 15:15 U Random Total Protein 123.0 mg/dL (0.0-12.0) H 09/30/18 15:15 Stool Occult Blood Negative (NEGATIVE) 11/05/18 11:00 C. difficile Ag & Toxin Positive (NEGATIVE) H 09/27/18 06:00 Hep Bs Antigen Negative (NEGATIVE) 09/29/18 09:00 Hep Bs Antibody, Quant <5 mIU/mL (>or=10) L 09/29/18 09:00 Hep B Core IgM Ab Negative (NEGATIVE) 09/29/18 09:00 Hepatitis C Antibody Negative (NEGATIVE) 09/29/18 09:00 Blood Type O POSITIVE 10/27/18 16:53 Antibody Screen Negative 10/27/18 16:53 Crossmatch See Detail 10/27/18 16:53 BBK History Checked Patient has bt 10/27/18 16:53 - Hospital Course Hospital Course: 77 year old Male with PMHx of HTN, Atrial fibrillation, CHF (EF: 60%) and ESRD is admitted for anemia, ESRD, hematuria and a-fib. After admission patient was transfused/pRBCs multiple time, Cardiology was consulted who started patient om Metoprolol for a.fib. Nephrology consulted for QUINT[place] on CKD and patient received HD for few week and current renal function is stable w/o any HD. ID was consulted who started patient on Abx for UTI and C.diff and treated appropriately. Psych was consulted for capacity: No capacity. Urology was consulted for continues hematuria, patient is s/p cystoscopy on 10/24 and 10/31, s/p filguration of L prosthetic mesh. Banks is placed patient continues to have hematuria, prostatic embolization is recommended by urology. Patient is currentl y stable, Stable h/h, continues with hematuria, tolerating PO intake. [place] was contected for possible uro intervention and patient was transferred to [place] for possible prostatic embolization and management. Patient family contacted and agrees with plan. Discharge Exam - Head Exam Head Exam: NORMAL INSPECTION - Eye Exam Eye Exam: Normal appearance - ENT Exam ENT Exam: Mucous Membranes Moist - Respiratory Exam Respiratory Exam: Clear to PA & Lateral, NORMAL BREATHING PATTERN - Cardiovascular Exam Cardiovascular Exam: REGULAR RHYTHM - GI/Abdominal Exam GI & Abdominal Exam: Normal Bowel Sounds - Exam Additional comments: + hematuria - Extremities Exam Extremities exam: normal inspection - Back Exam Back exam: absent: CVA tenderness (L), CVA tenderness (R) - Neurological Exam Neurological exam: Alert, CN II-XII Intact - Psychiatric Exam Psychiatric exam: Normal Affect Discharge Plan - Follow Up Plan Condition: GUARDED Disposition: Transfer [facility] Instructions: Atrial Fibrillation (DC), End Stage Kidney Disease (DC) Additional Instructions: Further management and treatment as per [facility] Referrals: Hans Tineo MD [Staff Provider] - Moses Bernabe MD [Staff Provider] -
--- NOTE | 2018-11-14 16:10 | OP ---
PROCEDURE DATE: 10/24/2018 PREOPERATIVE DIAGNOSIS: Gross hematuria. POSTOPERATIVE DIAGNOSIS: Prostatic bleeding. PROCEDURE: Cystoscopy. DESCRIPTION OF PROCEDURE: The patient was placed on the operating room table in a supine position. The area of the groin was draped and prepped in a sterile manner. At this time using a flexible cystoscope and local anesthesia, I gained access into the bladder. Along the way, the urethra is very clean. There is no evidence of any active bleeders. At the level of the prostatic urethra, there is oozing noted from the prostate and this oozing is in the area closer to the bladder neck in the region of the prostatic urethra. In the bladder itself, there is no active bleeding, there were no tumors, there were no lesions identified in the actual bladder. At this point, I removed the cystoscope and inserted a #[id number] [place] 3-way Banks catheter, connected it to continuous bladder irrigation and the patient then was taken from the operating room in good condition. Yessy Jeffries MD
== END 2018-11-09 21:41 | disposition short-term general hospital (02) | DRG 665 ==
LOC: H.ER 09:15 → H.ERHOLD 11:32 → H.TEL 15:18 → H.MEDSURG1 10-20 21:48
PROVIDERS: ADMIT Internal Medicine; ATTEND Internal Medicine
PROC: 30233N1 Transfusion of Nonautologous Red Blood Cells into Peripheral Vein, Percutaneous Approach (ICD-10-PCS; 2018-09-24)
PROC: 05HM33Z Insertion of Infusion Device into Right Internal Jugular Vein, Percutaneous Approach (ICD-10-PCS; 2018-09-26)
PROC: B543ZZA Ultrasonography of Right Jugular Veins, Guidance (ICD-10-PCS; 2018-09-26)
PROC: 5A1D70Z Performance of Urinary Filtration, Intermittent, Less than 6 Hours Per Day (ICD-10-PCS; 2018-09-27)
PROC: 0TJB8ZZ Inspection of Bladder, Via Natural or Artificial Opening Endoscopic (ICD-10-PCS; 2018-10-24)
PROC: 05PY33Z Removal of Infusion Device from Upper Vein, Percutaneous Approach (ICD-10-PCS; 2018-10-25)
PROC: 0T5D8ZZ Destruction of Urethra, Via Natural or Artificial Opening Endoscopic (ICD-10-PCS; 2018-10-31)
PROC: 0V508ZZ Destruction of Prostate, Via Natural or Artificial Opening Endoscopic (ICD-10-PCS; principal; 2018-10-31 12:00)
DX: T83.518A Infection and inflammatory reaction due to other urinary catheter, initial encounter (principal); A41.9 Sepsis, unspecified organism; N18.6 End stage renal disease; N02.9 Recurrent and persistent hematuria with unspecified morphologic changes; N39.0 Urinary tract infection, site not specified; N17.9 Acute kidney failure, unspecified; I13.2 Hypertensive heart and chronic kidney disease with heart failure and with stage 5 chronic kidney disease, or end stage renal disease; I50.32 Chronic diastolic (congestive) heart failure; A04.72 Enterocolitis due to Clostridium difficile, not specified as recurrent; I48.1 Persistent atrial fibrillation; M31.31 Wegener's granulomatosis with renal involvement; M30.0 Polyarteritis nodosa; D68.8 Other specified coagulation defects; N42.1 Congestion and hemorrhage of prostate; Z16.12 Extended spectrum beta lactamase (ESBL) resistance; Y84.6 Urinary catheterization as the cause of abnormal reaction of the patient, or of later complication, without mention of misadventure at the time of the procedure; B96.1 Klebsiella pneumoniae [K. pneumoniae] as the cause of diseases classified elsewhere; D63.1 Anemia in chronic kidney disease; I48.2 Chronic atrial fibrillation; D50.0 Iron deficiency anemia secondary to blood loss (chronic); D63.0 Anemia in neoplastic disease; F01.50 Vascular dementia, unspecified severity, without behavioral disturbance, psychotic disturbance, mood disturbance, and anxiety; B19.20 Unspecified viral hepatitis C without hepatic coma; Z85.46 Personal history of malignant neoplasm of prostate; Z91.19 Patient's noncompliance with other medical treatment and regimen; E78.00 Pure hypercholesterolemia, unspecified; M19.90 Unspecified osteoarthritis, unspecified site; Z99.2 Dependence on renal dialysis; Z87.891 Personal history of nicotine dependence